=== PATIENT | female | born 1970 | race Two or more races ===

== ENCOUNTER → 2020-11-15 09:29 | Outpatient (BNVA) | payer MEDICAID, SELFPAY | PROVIDERS: PCP Student in an Organized Health Care Education/Training Program; Visit Provider Orthopaedic Surgery | DX: M17.31 Unilateral post-traumatic osteoarthritis, right knee (principal) | CPT/HCPCS: 99212 ==

== ENCOUNTER 2021-02-07 08:40 | Outpatient (REF) | payer MEDICAID, SELFPAY ==
--- NOTE | ~2021-02-07 | XR_ITS ---
EXAMINATION: BILATERAL KNEE X-RAY CLINICAL INFORMATION: Pain COMPARISON: Previous x-rays from 2019 and 2020 TECHNIQUE: 3 views of each knee FINDINGS: Right: There is an old healed medial tibial plateau fracture. No acute fracture or dislocation is seen. There is tricompartment arthritis greatest at the medial femoral tibial joint. There is no joint effusion. Left: Bone alignment is normal. No fracture or dislocation is seen. There are small osteophytes at the patellofemoral joint. Joint spaces are otherwise normal. There is no joint effusion. XR/XR knee RT 2V IMPRESSION: Right: Old healed medial tibial plateau fracture and arthritis. Left: Small osteophytes at the patellofemoral joint.
--- NOTE | ~2021-02-07 | XR_ITS ---
EXAMINATION: BILATERAL KNEE X-RAY CLINICAL INFORMATION: Pain COMPARISON: Previous x-rays from 2019 and 2020 TECHNIQUE: 3 views of each knee FINDINGS: Right: There is an old healed medial tibial plateau fracture. No acute fracture or dislocation is seen. There is tricompartment arthritis greatest at the medial femoral tibial joint. There is no joint effusion. Left: Bone alignment is normal. No fracture or dislocation is seen. There are small osteophytes at the patellofemoral joint. Joint spaces are otherwise normal. There is no joint effusion. XR/XR knee standing BI IMPRESSION: Right: Old healed medial tibial plateau fracture and arthritis. Left: Small osteophytes at the patellofemoral joint.
--- NOTE | ~2021-02-07 | XR_ITS ---
EXAMINATION: BILATERAL KNEE X-RAY CLINICAL INFORMATION: Pain COMPARISON: Previous x-rays from 2019 and 2020 TECHNIQUE: 3 views of each knee FINDINGS: Right: There is an old healed medial tibial plateau fracture. No acute fracture or dislocation is seen. There is tricompartment arthritis greatest at the medial femoral tibial joint. There is no joint effusion. Left: Bone alignment is normal. No fracture or dislocation is seen. There are small osteophytes at the patellofemoral joint. Joint spaces are otherwise normal. There is no joint effusion. XR/XR knee LT 2V IMPRESSION: Right: Old healed medial tibial plateau fracture and arthritis. Left: Small osteophytes at the patellofemoral joint.
== END 2021-02-07 08:41 | disposition home or self-care (01) ==
LOC: HO.HOSX 08:40
PROVIDERS: Visit Provider Orthopaedic Surgery
DX: M17.31 Unilateral post-traumatic osteoarthritis, right knee (principal); M21.062 Valgus deformity, not elsewhere classified, left knee; Z86.718 Personal history of other venous thrombosis and embolism; Z86.711 Personal history of pulmonary embolism
CPT/HCPCS: 73560; 73565; 99212

== ENCOUNTER → 2021-04-09 09:58 | Outpatient (BNVA) | payer MEDICAID, SELFPAY | PROVIDERS: Visit Provider Orthopaedic Surgery | DX: Z01.812 Encounter for preprocedural laboratory examination (principal); Z01.810 Encounter for preprocedural cardiovascular examination ==

== ENCOUNTER → 2021-05-09 09:24 | Outpatient (BNVA) | payer MEDICAID, SELFPAY | PROVIDERS: Visit Provider Physician Assistant | DX: Z01.818 Encounter for other preprocedural examination (principal); M17.31 Unilateral post-traumatic osteoarthritis, right knee | CPT/HCPCS: 99212 ==

== ENCOUNTER 2021-05-14 06:44 | Inpatient (IN) | payer MEDICAID, SELFPAY ==
[2021-04-10 12:05] LABS: MANUAL DIFF FLAG NO
--- NOTE | 2021-04-10 12:05 | ECG_ITS ---
Test Reason : preop Blood Pressure : / mmHG Vent. Rate : 060 BPM Atrial Rate : 060 BPM P-R Int : 122 ms QRS Dur : 074 ms QT Int : 426 ms P-R-T Axes : -25 017 013 degrees QTc Int : 426 ms Normal sinus rhythm Normal ECG When compared with ECG of 15-JUN-2018 11:15, QT has shortened Referred By: Bobby Cerrato Electronically Signed By:SANTOS BIGGS
[2021-04-10 12:17] LABS: Basophils Absolute Auto 0.1 X10*3/uL (0.0-0.2); Basophils Percent Auto 0.7 % (0-2); Eosinophils Absolute Auto 0.2 X10*3/uL (0.0-0.4); Eosinophils Percent Auto 2.5 % (0-4); Hemoglobin 12.7 g/dl (12.0-16.0); Imm Gran Abs Auto 0.03 X10*3/uL (0.00-0.03); Imm Gran Pct Auto 0.4 % (0.0-0.4); Lymphocytes Absolute Auto 1.9 X10*3/uL (1.2-4.9); Lymphocytes Percent Auto 23.3 % (20-40); Mean Corpuscular HGB Conc 32.6 g/dl (31.0-35.0); Mean Corpuscular Hemoglobin 29.4 pg (27.0-33.0); Mean Corpuscular Volume 90.3 fL (80.0-98.0); Mean Platelet Volume 10.7 fL (9.4-12.3); Monocytes Absolute Auto 0.9 X10*3/uL (0.1-1.2); Monocytes Percent Auto 11.3 % (2-11); Neutrophils Percent Auto 61.8 % (45-73); Platelet Count 316 X10*3/uL (160-400); Red Blood Count 4.32 X10*6/uL (4.20-5.50); Red Cell Distribution Width 14.6 % (11.0-16.0); White Blood Count 8.1 X10*3/uL (4.8-10.8)
[2021-04-10 12:40] LABS: Anion Gap 10 (12-20); Blood Urea Nitrogen 9 mg/dL (9-16); Calcium 9.7 mg/dL (8.4-10.2); Carbon Dioxide 30 mmol/L (22-29); Chloride 108 mmol/L (96-108); Estimated Glomerular Filt Rate > 60; Glucose Random 85 mg/dL (60-115); Potassium 4.6 mmol/L (3.3-5.1); Sodium 143 mmol/L (135-145)
[2021-05-06 11:24] VITALS: BP 108/58; PULSE 76; RESP 16; O2SAT 98; BMI 29.7
--- NOTE | 2021-05-06 11:33 | HO.ANESPROP2 ---
Documented by User: Lauren Norton NP 05/06/21 12:25 HPI - Anesthesia Eval Consult details Narrative: 51yo F for Right Knee Replacement Total PCP cleared Hx DVT/PE post op knee surgery 2016 - no anticoag now s/p gastric bypass 11/2020 PMF Active Problems Active Problems: All Active Problems (Updated 02/07/21 @ 10:54 by Bobby Cerrato MD) Post-traumatic osteoarthritis of right knee (Acute) Valgus deformity, not elsewhere classified, left knee (Acute) History of DVT (deep vein thrombosis) (Acute) History of pulmonary embolism (Acute) Past Medical History Medical History Asthma High cholesterol History of DVT (deep vein thrombosis) History of pulmonary embolism HTN (hypertension) Sleep apnea Family History Family history of problems with anesthesia: No Surgical History Surgical History H/O right knee surgery History of bunionectomy of both great toes History of History of laparoscopic cholecystectomy Hx of gastric bypass History of Problems with Anesthesia: No Social History Social History Are you a primary caregiver assisted living to a significant other at home: No Do you presently have visiting nurse or other home services: No Alcohol intake: never Patient Tobacco Use Status: Never used Tobacco Use of substances other than those prescribed or required for medical reasons: No Have you been hit, kicked, punched, or otherwise hurt by someone within the past year? If so, by whom?: No Are you DNR?: No Advance Directives: No Advance Directives on File: No Recently lost weight without trying: No Patient : No FDLMP: 2006 : No Poor oral hygiene: No Current occupational status: unemployed Current occupation: rt handed. Narrative Narrative: No recent illness No CP/SOB with activity Meds Allergies Allergy/AdvReac Type Severity Reaction Status Date / Time No Known Allergies Allergy Verified 05/14/21 07:25 Home Medications Medication Instructions Recorded Confirmed Last Taken Type albuterol sulfate 90 mcg/actuation 2 inh INHALATION Q6H PRN 11/15/20 05/06/21 Unknown History breath activated powder inhaler magnesium hydroxide 400 mg (170 mg 400 mg PO DAILY 11/15/20 05/06/21 Unknown History magnesium) chewable tablet omeprazole 40 mg capsule,delayed 40 mg PO DAILY 11/15/20 05/06/21 Unknown History release riboflavin (vitamin B2) 100 mg 100 mg PO BID 11/15/20 05/06/21 Unknown History tablet simvastatin 10 mg tablet 10 mg PO DAILY 11/15/20 05/06/21 Unknown History budesonide-formoterol HFA 160 2 puff INHALATION BID 05/06/21 05/06/21 Unknown History mcg-4.5 mcg/actuation aerosol inhaler (Symbicort) multivitamin 1 tab PO DAILY 05/06/21 05/06/21 Unknown History Exam Exam Date and Time: May 06, 2021 1133 Pertinent Lab Results Pertinent Lab Results: Laboratory Tests 04/10/21 04/10/21 12:03 12:03 WBC 8.1 RBC 4.32 Hgb 12.7 Hct 39.0 MCV 90.3 MCH 29.4 MCHC 32.6 RDW 14.6 Plt Count 316 MPV 10.7 Immature Gran % (Auto) 0.4 Neut % (Auto) 61.8 Lymph % (Auto) 23.3 [place] % (Auto) 11.3 H Eos % (Auto) 2.5 Baso % (Auto) 0.7 Lymph # (Auto) 1.9 [place] # (Auto) 0.9 Eos # (Auto) 0.2 Baso # (Auto) 0.1 Abs Immat Gran (auto) 0.03 Absolute Neuts (auto) 5.0 Absolute Nucleated RBC 0.000 Nucleated RBC % (auto) 0.0 Sodium 143 Potassium 4.6 Chloride 108 Carbon Dioxide 30 H Anion Gap 10 L BUN 9 Creatinine 0.84 Estim Creat Clear Calc TNP Estimated GFR > 60 Random Glucose 85 Calcium 9.7 Narrative Narrative: EKG 03/2021 Vent. Rate : 060 BPM ? ? Atrial Rate : 060 BPM ?? P-R Int : 122 ms? QRS Dur : 074 ms ? ? QT Int : 426 ms ? ? ? P-R-T Axes : -25 017 013 degrees ?? QTc Int : 426 ms ? Normal sinus rhythm Normal ECG When compared with ECG of 15-JUN-2018 11:15, QT has shortened Airway Mallampati Class: I TM Dist: >3cm Neck ROM: Full Loose/Missing/Broken Teeth: Yes (MOlars missing) Heart: RRR +M Lungs: CTAB Assessment and Plan Assessment Anesthesia Assessment: Anesthesia Plan Discussed (Spinal/block) and PAT Visit Final Anesthetic Review Family History of Problems with Anesthesia: No History of Problems with Anesthesia: No Documented by User: Vin Lopez MD 05/14/21 09:13 [facility] Past Medical History Medical History Asthma High cholesterol History of DVT (deep vein thrombosis) History of pulmonary embolism HTN (hypertension) Sleep apnea Surgical History Surgical History H/O right knee surgery History of bunionectomy of both great toes History of History of laparoscopic cholecystectomy Hx of gastric bypass Social History Social History Are you a primary caregiver assisted living to a significant other at home: No Do you presently have visiting nurse or other home services: No Alcohol intake: never Patient Tobacco Use Status: Never used Tobacco Use of substances other than those prescribed or required for medical reasons: No Have you been hit, kicked, punched, or otherwise hurt by someone within the past year? If so, by whom?: No Are you DNR?: No Advance Directives: No Advance Directives on File: No Recently lost weight without trying: No Patient : No FDLMP: 2006 : No Poor oral hygiene: No Current occupational status: unemployed Current occupation: rt handed. Meds Allergies Allergy/AdvReac Type Severity Reaction Status Date / Time No Known Allergies Allergy Verified 05/14/21 07:25 Home Medications Medication Instructions Recorded Confirmed Last Taken Type albuterol sulfate 90 mcg/actuation 2 inh INHALATION Q6H PRN 11/15/20 05/06/21 Unknown History breath activated powder inhaler magnesium hydroxide 400 mg (170 mg 400 mg PO DAILY 11/15/20 05/06/21 Unknown History magnesium) chewable tablet omeprazole 40 mg capsule,delayed 40 mg PO DAILY 11/15/20 05/06/21 Unknown History release riboflavin (vitamin B2) 100 mg 100 mg PO BID 11/15/20 05/06/21 Unknown History tablet simvastatin 10 mg tablet 10 mg PO DAILY 11/15/20 05/06/21 Unknown History budesonide-formoterol HFA 160 2 puff INHALATION BID 05/06/21 05/06/21 Unknown History mcg-4.5 mcg/actuation aerosol inhaler (Symbicort) multivitamin 1 tab PO DAILY 05/06/21 05/06/21 Unknown History Assessment and Plan Final Anesthetic Review NPO: Yes ASA Class: II Final Preanesthetic Review: No Changes in Pt Med Stat, Meds/Allgs Chart Reviewed, Consent Obtained/Reviewed and Anes Risks/Benef Reviewed Patient Risk: Low Procedure Risk: Intermediate Anesthetic Plan Anesthetic Plan: MAC:, Spinal and Regional Block Disposition: Standard PACU
[2021-05-06 14:10] LABS: MRSA Nasal PCR NEGATIVE (Negative); SA Nasal PCR POSITIVE (Negative)
[2021-05-14] VITALS (16 sets, daily range): BP systolic 87–143; BP diastolic 46–73; PULSE 52–92; RESP 15–20; TEMP 36.1–37.3; O2SAT 96–100
--- NOTE | ~2021-05-14 | XR_ITS ---
EXAMINATION: XR KNEE, RIGHT CLINICAL INFORMATION: Right knee replacement COMPARISON: Previous x-ray most recent January 2021 TECHNIQUE: Two views of the right knee. FINDINGS: There is a new hinged 3 component right knee replacement in satisfactory position. No fracture or dislocation is seen. There are postoperative changes to the soft tissues. XR/XR knee RT 2V IMPRESSION: Satisfactory appearance of right knee replacement.
[2021-05-14 06:52] LABS: UPreg QC Valid YES; Urine Pregnancy NEGATIVE (NEGATIVE)
[2021-05-14 07:10] LABS: COVID-19 Test Negative (Negative); IDNOW Serial# 55D5AD1C
[2021-05-14] MEDS: Lactated Ringers 1,000 ML 100 ML IVCONT (07:30)
--- NOTE | 2021-05-14 07:36 | MHC.SHP ---
Pre-Procedural Eval Section A Date of Service: 05/14/21 The patient is an INPATIENT: No Changes since office visit: Yes Patient answered all questions; No Cold of Flu in the past 2 weeks, No New Medical Problems and No Changes in Medication The History & Physical has been completed within 30 days and I have reviewed it.: Yes Section B Chief Complaint: RT TKA Allergies: Allergies Allergy/AdvReac Type Severity Reaction Status Date / Time No Known Allergies Allergy Verified 05/14/21 07:25 Plan I have reviewed the history and physical and performed a pertinent physical examination on my patient. No changes have occurred unless specified.
--- NOTE | 2021-05-14 10:04 | PM.OP ---
Brief Operative Note Date of Service: 05/14/21 Pre-op diagnosis: right knee OA Post-op diagnosis: same Procedure: right TKA Implants: Radha triathalon PS 05/01/15 cemented Surgeon: Bobby Cerrato MD Anesthesia: regional and spinal Was an Electronics Processor used for this Procedure?: Yes Electronics Processor: Alonzo Rivas Estimated blood loss (mL): 150 IV fluids (mL): 900 Pathology: other Condition: stable Disposition: PACU
[2021-05-14] MEDS: Dextrose 5 % and 0.45 % NaCl 1,000 ML 80 ML IVCONT ×2 (10:25→21:31)
[2021-05-14] MEDS: Tetracaine HCl/PF 0.5% Oph Sol 4 ML DROPS 1 DROP EYE-LEFT (10:39)
[2021-05-14] MEDS: Erythromycin Base 0.5% Oph Oin 1 GM TUBE 1 CM EYE-LEFT ×3 (11:04→19:43)
[2021-05-14] MEDS: Acetaminophen 325 MG TABLET 650 MG PO ×2 (11:56→21:29)
--- NOTE | 2021-05-14 13:02 | PHA.MEDREC ---
Pharmacy Consult ? Medication Reconciliation Pharmacy has completed the medication reconciliation.
[2021-05-14] MEDS: oxyCODONE HCl Immed Release 5 MG TABLET 10 MG PO ×2 (15:22→21:29)
--- NOTE | 2021-05-14 15:45 | HO.PM.IMCN ---
History of Present Illness Data of Consult Service Date: 05/14/21 Requesting physician: Bobby Cerrato Primary Care Provider: Jackie Abdi MD HPI 51 year old women admitted to orthopedic surgery and is status post RTKA. She has pain to her right eye and was told in the OR that it was likely a corneal abrasion. She received tetracaine and vigamox. Pain is moderate at this time. She was able to drink with no nausea or vomiting. She is resting in bed. vital signs stable. Review of Systems Review of Systems: Denies any recent fever chills or decrease in appetite respiratory denies any shortness of breath coverage production cardiovascular is adjustment of any PND or edema gastrointestinal denies any dysphagia abdominal pain nausea vomiting or diarrhea genitourinary denies any dysuria frequency or hematuria musculoskeletal denies any joint pain or swelling neuropsych denies any weakness or seizures all other systems reviewed are negative [facility] Medical History Asthma High cholesterol History of DVT (deep vein thrombosis) History of pulmonary embolism HTN (hypertension) Sleep apnea Pertinent family history: NO cardiac disease Surgical History H/O right knee surgery History of bunionectomy of both great toes History of History of laparoscopic cholecystectomy Hx of gastric bypass Social History Are you a primary child care nurse to a significant other at home: No Do you presently have visiting nurse or other home services: No Alcohol intake: never Patient Tobacco Use Status: Never used Tobacco Use of substances other than those prescribed or required for medical reasons: No Currently Displaying Signs/Symptoms of Drug Intoxication Withdrawal: No Have you been hit, kicked, punched, or otherwise hurt by someone within the past year? If so, by whom?: No Are you DNR?: No Advance Directives: No Advance Directives on File: No Recently lost weight without trying: No Patient : No FDLMP: 2006 : No Poor oral hygiene: No Current occupational status: unemployed Current occupation: rt handed. Meds Allergies Allergy/AdvReac Type Severity Reaction Status Date / Time No Known Allergies Allergy Verified 05/14/21 07:25 Active Medications: Current Medications Acetaminophen (Acetaminophen 325 Mg Tablet) 650 mg PO Q6H PRN PRN Reason: Pain, Mild (Pain Scale 1-3) Last Admin: 05/14/21 11:56 Dose: 650 mg Documented by: Celecoxib (Celecoxib 200 Mg Capsule) 200 mg PO BID [facility] Enoxaparin Sodium (Enoxaparin Sodium 40 Mg/0.4 Ml Syringe) 40 mg SUBCUT Q24H [facility] Erythromycin (Erythromycin Base 0.5% Oph Oin 1 Gm Tube) 1 cm EYE-LEFT TID [facility] Stop: 05/15/21 11:00 Last Admin: 05/14/21 15:18 Dose: 1 cm Documented by: Hydromorphone HCl (Hydromorphone Hcl 1 Mg/Ml Syringe) 0.25 mg IVPUSH Q4H PRN; Protocol PRN Reason: Pain, Severe (Pain Scale 7-10) Dextrose/Sodium Chloride (D51/2ns) 1,000 mls @ 80 mls/hr IVCONT .[id number] [facility] Last Admin: 05/14/21 10:25 Dose: 80 mls/hr Documented by: Cefazolin Sodium/Dextrose (Ancef) 2 gm in 50 mls @ 100 mls/hr IV POSTOP [facility] Ondansetron HCl (Ondansetron Hcl 4 Mg/2 Ml Vial) 4 mg IVPUSH Q8H PRN PRN Reason: Nausea and Vomiting Oxycodone HCl (Oxycodone Hcl Immed Release 5 Mg Tablet) 10 mg PO Q4H PRN PRN Reason: Pain, Moderate (Pain Scale 4-6 Last Admin: 05/14/21 15:22 Dose: 10 mg Documented by: Oxycodone HCl (Oxycodone Hcl Er 10 Mg Tab.Er.12h) 10 mg PO BID [facility] Senna (Sennosides 8.6 Mg Tablet) 17.2 mg PO BEDTIME PRN PRN Reason: Constipation Sodium Chloride (0.9 % Sodium Chloride Flush 3 Ml Syringe) 3 ml IVFLUSH QSHIFT [facility] Last Admin: 05/14/21 15:18 Dose: Not Given Documented by: Home Medications Medication Instructions Recorded Confirmed Last Taken Type albuterol sulfate 90 mcg/actuation 2 inh INHALATION Q6H PRN 11/15/20 05/14/21 Unknown History breath activated powder inhaler magnesium hydroxide 400 mg (170 mg 400 mg PO DAILY 11/15/20 05/14/21 Unknown History magnesium) chewable tablet omeprazole 40 mg capsule,delayed 40 mg PO DAILY 11/15/20 05/14/21 Unknown History release riboflavin (vitamin B2) 100 mg 100 mg PO BID 11/15/20 05/14/21 Unknown History tablet simvastatin 10 mg tablet 10 mg PO DAILY 11/15/20 05/14/21 Unknown History budesonide-formoterol HFA 160 2 puff INHALATION BID 05/06/21 05/14/21 Unknown History mcg-4.5 mcg/actuation aerosol inhaler (Symbicort) multivitamin 1 tab PO DAILY 05/06/21 05/14/21 Unknown History amitriptyline 10 mg tablet 20 mg PO BEDTIME 05/14/21 05/14/21 Unknown History Physical Exam Vital Signs and Narrative: Vital Signs: Last Vital Signs Temp 97.1 F 05/14/21 15:32 Pulse 92 05/14/21 15:32 Resp 16 05/14/21 15:32 BP 143/73 H 05/14/21 15:32 Pulse Ox 98 05/14/21 15:32 BMI result Body Mass Index 29.7 Appearing in no acute distress head is normocephalic atraumatic eyes pupils are PERRLA sclera is anicteric mouth throat mucous membranes are intact and moist neck is supple no lymphadenopathy, no JVD noted lung sounds are clear to auscultation heart regular rate rhythm, clear S1, S2 positive bowel sounds, abdomen is soft, nontender neuro patient is alert x3, no focal deficits Results Labs CBC and Chem 7: 04/10/21 12:03 04/10/21 12:03 Labs: Laboratory Results - last 24 hr 05/14/21 05/14/21 06:20 06:43 Urine Test NEGATIVE COVID-19 ([facility]NAMARIA) Negative COVID-19 Clin Com See Note Imaging Radiologist's Impressions: Impressions Knee X-Ray 05/14/21 10:38 IMPRESSION: Satisfactory appearance of right knee replacement. Assessment and Plan (1) Post-traumatic osteoarthritis of right knee: Status: Acute Plan 51 year old women admitted by orthopedic surgery and is s/p RTKA RTKA Mangement as per surgical team pain management asthma. no exacerbation continue home medications Left eye pain ?corneal abrasion eye drops GERD PPI DVT prophylaxis as per surgical team Attending Dr. Ravi
[2021-05-14] MEDS: Amitriptyline HCl 10 MG TABLET 20 MG PO (19:40)
[2021-05-14] MEDS: oxyCODONE HCl ER 10 MG TAB.ER.12H PO (19:41)
[2021-05-14] MEDS: HYDROmorphone HCl 1 MG/ML SYRINGE 0.25 MG IVPUSH (19:41)
[2021-05-14] MEDS: Celecoxib 200 MG CAPSULE PO (19:41)
[2021-05-14] MEDS: 0.9 % Sodium Chloride Flush 3 ML SYRINGE IVFLUSH (19:42)
[2021-05-15] VITALS (9 sets, daily range): BP systolic 82–142; BP diastolic 53–67; PULSE 75–99; RESP 14–20; TEMP 36.2–36.4; O2SAT 94–98
[2021-05-15] MEDS: oxyCODONE HCl Immed Release 5 MG TABLET 10 MG PO ×3 (03:23→16:36)
[2021-05-15] MEDS: Acetaminophen 325 MG TABLET 650 MG PO ×3 (03:23→16:35)
[2021-05-15] MEDS: Omeprazole 40 MG CAPSULE.DR PO (05:37)
[2021-05-15 05:55] LABS: Basophils Percent Auto 0.1 % (0-2); Eosinophils Percent Auto 0.4 % (0-4); Hematocrit 27.9 % (37.0-47.0); Hemoglobin 9.1 g/dl (12.0-16.0); Imm Gran Abs Auto 0.03 X10*3/uL (0.00-0.03); Imm Gran Pct Auto 0.3 % (0.0-0.4); Lymphocytes Absolute Auto 1.3 X10*3/uL (1.2-4.9); Lymphocytes Percent Auto 13.3 % (20-40); MANUAL DIFF FLAG SCAN; Mean Corpuscular HGB Conc 32.6 g/dl (31.0-35.0); Mean Corpuscular Hemoglobin 30.2 pg (27.0-33.0); Mean Corpuscular Volume 92.7 fL (80.0-98.0); Mean Platelet Volume 11.1 fL (9.4-12.3); Monocytes Absolute Auto 1.6 X10*3/uL (0.1-1.2); Monocytes Percent Auto 16.3 % (2-11); Neutrophils Absolute Auto 6.7 x10*3/uL (2.0-8.3); Neutrophils Percent Auto 69.6 % (45-73); Platelet Count 233 X10*3/uL (160-400); Red Blood Count 3.01 X10*6/uL (4.20-5.50); Red Cell Distribution Width 13.8 % (11.0-16.0); SCAN SMEAR FLAG 1; White Blood Count 9.6 X10*3/uL (4.8-10.8)
[2021-05-15 06:23] LABS: Anion Gap 9 (12-20); Blood Urea Nitrogen 9 mg/dL (9-16); Carbon Dioxide 28 mmol/L (22-29); Chloride 105 mmol/L (96-108); Creatinine Clr Calc Pharmacy 53.3; Estimated Glomerular Filt Rate 55; Glucose Fasting 118 mg/dL (60-99); Potassium 4.1 mmol/L (3.3-5.1); Sodium 138 mmol/L (135-145)
[2021-05-15 06:27] LABS: SLIDE REVIEW VERIFIED
--- NOTE | 2021-05-15 07:45 | PM.PNORT ---
Subjective Subjective Date of Service: 05/15/21 Interval history: POD1 s/p RTKA. No overnight events. Pain is managed. Patient is resting comfortably in bed. No additional complaints. Physical Exam Vital Signs: Vital Signs: Last Vital Signs Temp 97.2 F 05/15/21 03:46 Pulse 75 05/15/21 03:46 Resp 14 05/15/21 03:46 BP 92/67 05/15/21 03:46 Pulse Ox 94 05/15/21 03:46 BMI result Body Mass Index 29.7 Const: General: cooperative, healthy appearing and no acute distress Resp: Effort & Inspection: normal respiratory effort and able to speak in complete sentences Cardio: Rate: regular rate Peripheral pulses: Peripheral pulses 2+ throughout GI: Palpation (GI): Soft to palpation Skin: Lesions: no lesions Rashes: no rashes Extrem: Other: Right knee aquacel is clean, dry, and intact. NVI. Procedures Date of Service Date of Service: 05/15/21 Progress Note: A&P Assessment and plan (1) Status post total knee replacement, right: Status: Acute Assessment and Plan: Continue pain mgmnt Begin Lovenox for dvt ppx begin PT for RTKA Dispo planning-Pending PT eval, pain mgmnt Fall Risk Details Current Medications: Current Medications Acetaminophen (Acetaminophen 325 Mg Tablet) 650 mg PO Q6H PRN PRN Reason: Pain, Mild (Pain Scale 1-3) Last Admin: 05/15/21 03:23 Dose: 650 mg Documented by: Albuterol Sulfate (Albuterol Sulfate 90 Mcg 8 Gm Inhaler) 2 puff INHALE Q6H PRN PRN Reason: Shortness Of Breath Or Wheezing Amitriptyline HCl (Amitriptyline Hcl 10 Mg Tablet) 20 mg PO BEDTIME [facility] Last Admin: 05/14/21 19:40 Dose: 20 mg Documented by: Atorvastatin Calcium (Atorvastatin Calcium 10 Mg Tablet) 10 mg PO DAILY [facility] Celecoxib (Celecoxib 200 Mg Capsule) 200 mg PO BID [facility] Last Admin: 05/14/21 19:41 Dose: 200 mg Documented by: Enoxaparin Sodium (Enoxaparin Sodium 40 Mg/0.4 Ml Syringe) 40 mg SUBCUT Q24H [facility] Erythromycin (Erythromycin Base 0.5% Oph Oin 1 Gm Tube) 1 cm EYE-LEFT TID [facility] Stop: 05/15/21 11:00 Last Admin: 05/14/21 19:43 Dose: 1 cm Documented by: Fluticasone/Vilanterol (Fluticasone/Vilanterol 100/25 Blst.W.Dev) 1 puff INHALE RDAILY [facility] Hydromorphone HCl (Hydromorphone Hcl 1 Mg/Ml Syringe) 0.25 mg IVPUSH Q4H PRN; Protocol PRN Reason: Pain, Severe (Pain Scale 7-10) Last Admin: 05/14/21 19:41 Dose: 0.25 mg Documented by: Dextrose/Sodium Chloride (D51/2ns) 1,000 mls @ 80 mls/hr IVCONT .[id number] [facility] Last Admin: 05/14/21 21:31 Dose: 80 mls/hr Documented by: Cefazolin Sodium/Dextrose (Ancef) 2 gm in 50 mls @ 100 mls/hr IV POSTOP [facility] Magnesium Oxide (Magnesium Oxide 400 Mg Tablet) 400 mg PO DAILY [facility] Multivitamins/Vitamin C (Multivitamin Tablet) 1 tab PO DAILY [facility] Omeprazole (Omeprazole 40 Mg Capsule.Dr) 40 mg PO DAILY@0630 [facility] Last Admin: 05/15/21 05:37 Dose: 40 mg Documented by: Ondansetron HCl (Ondansetron Hcl 4 Mg/2 Ml Vial) 4 mg IVPUSH Q8H PRN PRN Reason: Nausea and Vomiting Oxycodone HCl (Oxycodone Hcl Immed Release 5 Mg Tablet) 10 mg PO Q4H PRN PRN Reason: Pain, Moderate (Pain Scale 4-6 Last Admin: 05/15/21 03:23 Dose: 10 mg Documented by: Oxycodone HCl (Oxycodone Hcl Er 10 Mg Tab.Er.12h) 10 mg PO BID [facility] Last Admin: 05/14/21 19:41 Dose: 10 mg Documented by: Senna (Sennosides 8.6 Mg Tablet) 17.2 mg PO BEDTIME PRN PRN Reason: Constipation Sodium Chloride (0.9 % Sodium Chloride Flush 3 Ml Syringe) 3 ml IVFLUSH QSHIFT [facility] Last Admin: 05/14/21 19:42 Dose: 3 ml Documented by: Time Spent With Patient Time: Total time spent is greater than 50% in coordination of care (as documented) at patient's floor/unit and/or counseling patient: Time with patient: less than 15 minutes Quality Stroke Does the patient have a stroke diagnosis?: No VTE Prior VTE?: No VTE Risk Level:: Surgical - very high VTE Device Contraindication: N/A - Device Ordered VTE Drug Contraindication: N/A - Med Ordered
[2021-05-15] MEDS: Fluticasone/Vilanterol 100/25 BLST.W.DEV 1 PUFF INHALE (08:00)
--- NOTE | 2021-05-15 08:11 | HO.POSTANES ---
Post Anesthesia Evaluation Post Anesthesia Evaluation Vital Signs: Vital Signs Temp Pulse Resp BP Pulse Ox 05/15/21 08:05 75 18 05/15/21 08:00 97.1 F 90 20 142/65 H 98 05/15/21 03:46 97.2 F 75 14 92/67 94 05/14/21 23:47 97.4 F 72 20 90/47 L 96 Anesthesia: Spinal and Nerve Block Mental Status: Awake Pain Control: Satisfactory Nausea/Vomiting: None Hydration: Adequate Anesthesia-Related Issues: No Anes. Related Issues Comments: question of corneal abrasion . Patient receievd teracaine drops and erythromycin ointment. looked more like conjunctivitis with bulging of conjunctiva. Much improved now
[2021-05-15] MEDS: Enoxaparin Sodium 40 MG/0.4 ML SYRINGE SUBCUT (08:16)
[2021-05-15] MEDS: Multivitamin TABLET 1 TAB PO (08:18)
[2021-05-15] MEDS: Magnesium Oxide 400 MG TABLET PO (08:18)
[2021-05-15] MEDS: Celecoxib 200 MG CAPSULE PO ×2 (08:18→20:34)
[2021-05-15] MEDS: oxyCODONE HCl ER 10 MG TAB.ER.12H PO ×2 (08:18→20:34)
[2021-05-15] MEDS: Atorvastatin Calcium 10 MG TABLET PO (08:18)
[2021-05-15] MEDS: 0.9 % Sodium Chloride Flush 3 ML SYRINGE IVFLUSH ×2 (08:19→16:36)
[2021-05-15] MEDS: HYDROmorphone HCl 1 MG/ML SYRINGE 0.25 MG IVPUSH ×3 (08:25→23:28)
[2021-05-15] MEDS: Erythromycin Base 0.5% Oph Oin 1 GM TUBE 1 CM EYE-LEFT (08:31)
--- NOTE | 2021-05-15 09:39 | P.OP_ITS ---
Operative Note Operative Note Date of Service: 05/15/21 Narrative: Date of Service: 05/14/21 Pre-op diagnosis: right knee OA Post-op diagnosis: same Procedure: right TKA Implants: [place] triathalon PS 05/01/TS/29a cemented Surgeon: Bobby Cerrato MD Anesthesia: regional and spinal Was an Underwater Roboticist used for this Procedure?: Yes Underwater Roboticist: Alonzo Rivas Estimated blood loss (mL): 150 IV fluids (mL): 900 Pathology: other Condition: stable Disposition: PACU Procedure in detail: The patient was brought to the operating room and prepped and draped in standard sterile fashion. all bony prominences were well padded. A time-out was called to identify proper site proper procedure proper surgeon and IV antibiotics were administered. I began by making a midline incision to the retinaculum and performed a medial parapatellar arthrotomy. The patella was translated laterally and the knee was flexed up. The medial compartment was eburnated and the knee had collapsed in to severe varus. I performed a medial peel and resected the infrapatellar fat pad. Fairview's line was then used to drill my intramedullary femoral guide and my distal femur cut of 10 mm was made in 5 degrees of valgus while protecting the soft tissues. I then measured a # 2 femur and placed my cutting guide and made my anterior posterior and chamfer cuts protecting the soft tissues at all times. I then made my box but removing the PCL. Once I was satisfied with my cuts I turned my attention to the tibia. I removed the meniscus medially and laterally and , using an external cutting guide, in line with the tibial crest and the third ray, I made my distal tibial cut in 0 deg slope of while protecting the posterior soft tissues at all times. An extension block was used to confirm appropriate amount of bony resection. The knee was balanced medially and laterally. In addition I removed 1 medial screw from prior surgery that was protruding through the medial tibial plateau. I then sized a #2 tibia and once I was satisfied that there was complete tibial coverage I placed my trial and with the trial femur in place took the knee through range of motion. I was satisfied with the extension and flexion as well as the stability at 0, 30 and 90 degrees. I then turned my attention to the patella where I removed 1 cm from the undersurface of the patella and then trialed a 29a patellar button. Again the knee was taken through range of motion I was satisfied with the tracking. I then returned to the femur and drilled my femoral lug holes and prepared the tibia. A femoral bone plug was placed and the knee was irrigated copiously. I mixed 2 bags of [place] bone cement on the back table. I then Cementedthe patella, tibia and femur in standard fashion. Once the cement was dry and all excess cement had been removed I trialed different inserts again until I selected a #16 insert. The final insert was placed and a 3 minutes iodine soak was performed. running Quill suture and absorbable subcuticular sutures and louisa on the skin were used. Patient was then awakened from sedation and brought to the recovery room in stable condition. There were no known complications.
--- NOTE | 2021-05-15 10:11 | P.PNIM_ITS ---
Subjective Subjective Date of Service: 05/15/21 Review of Systems Follow up consult s/p RTKA walking the hallway with PT Physical Exam 2 Vital Signs: Vital Signs: Last Vital Signs Temp 97.1 F 05/15/21 08:00 Pulse 75 05/15/21 08:48 Resp 18 05/15/21 08:05 BP 142/65 H 05/15/21 08:00 Pulse Ox 98 05/15/21 08:00 BMI result Body Mass Index 29.7 Appearing in no acute distress lung sounds are clear to auscultation heart regular rate rhythm, clear S1, S2 positive bowel sounds, abdomen is soft, nontender neuro patient is alert x3, no focal deficits Right knee dressing, surgical incision not visualized Objective Data Active Medications Acetaminophen (Acetaminophen 325 Mg Tablet) 650 mg PO Q6H PRN PRN Reason: Pain, Mild (Pain Scale 1-3) Last Admin: 05/15/21 03:23 Dose: 650 mg Documented by: ROCAEL Albuterol Sulfate (Albuterol Sulfate 90 Mcg 8 Gm Inhaler) 2 puff INHALE Q6H PRN PRN Reason: Shortness Of Breath Or Wheezing Amitriptyline HCl (Amitriptyline Hcl 10 Mg Tablet) 20 mg PO BEDTIME [facility] Last Admin: 05/14/21 19:40 Dose: 20 mg Documented by: ROCAEL Atorvastatin Calcium (Atorvastatin Calcium 10 Mg Tablet) 10 mg PO DAILY [facility] Last Admin: 05/15/21 08:18 Dose: 10 mg Documented by: DUY Celecoxib (Celecoxib 200 Mg Capsule) 200 mg PO BID [facility] Last Admin: 05/15/21 08:18 Dose: 200 mg Documented by: DUY Enoxaparin Sodium (Enoxaparin Sodium 40 Mg/0.4 Ml Syringe) 40 mg SUBCUT Q24H [facility] Last Admin: 05/15/21 08:16 Dose: 40 mg Documented by: DUY Erythromycin (Erythromycin Base 0.5% Oph Oin 1 Gm Tube) 1 cm EYE-LEFT TID [facility] Stop: 05/15/21 11:00 Last Admin: 05/15/21 08:31 Dose: 1 cm Documented by: DUY Fluticasone/Vilanterol (Fluticasone/Vilanterol 100/25 Blst.W.Dev) 1 puff INHALE RDAILY [facility] Last Admin: 05/15/21 08:00 Dose: 1 puff Documented by: YUMI Hydromorphone HCl (Hydromorphone Hcl 1 Mg/Ml Syringe) 0.25 mg IVPUSH Q4H PRN; Protocol PRN Reason: Pain, Severe (Pain Scale 7-10) Last Admin: 05/15/21 08:25 Dose: 0.25 mg Documented by: DUY Dextrose/Sodium Chloride (D51/2ns) 1,000 mls @ 80 mls/hr IVCONT .[id number] [facility] Last Admin: 05/14/21 21:31 Dose: 80 mls/hr Documented by: ROCAEL Cefazolin Sodium/Dextrose (Ancef) 2 gm in 50 mls @ 100 mls/hr IV POSTOP [facility] Magnesium Oxide (Magnesium Oxide 400 Mg Tablet) 400 mg PO DAILY [facility] Last Admin: 05/15/21 08:18 Dose: 400 mg Documented by: DUY Multivitamins/Vitamin C (Multivitamin Tablet) 1 tab PO DAILY [facility] Last Admin: 05/15/21 08:18 Dose: 1 tab Documented by: DUY Omeprazole (Omeprazole 40 Mg Capsule.Dr) 40 mg PO DAILY@0630 [facility] Last Admin: 05/15/21 05:37 Dose: 40 mg Documented by: ROCAEL Ondansetron HCl (Ondansetron Hcl 4 Mg/2 Ml Vial) 4 mg IVPUSH Q8H PRN PRN Reason: Nausea and Vomiting Oxycodone HCl (Oxycodone Hcl Immed Release 5 Mg Tablet) 10 mg PO Q4H PRN PRN Reason: Pain, Moderate (Pain Scale 4-6 Last Admin: 05/15/21 03:23 Dose: 10 mg Documented by: ROCAEL Oxycodone HCl (Oxycodone Hcl Er 10 Mg Tab.Er.12h) 10 mg PO BID [facility] Last Admin: 05/15/21 08:18 Dose: 10 mg Documented by: DUY Senna (Sennosides 8.6 Mg Tablet) 17.2 mg PO BEDTIME PRN PRN Reason: Constipation Sodium Chloride (0.9 % Sodium Chloride Flush 3 Ml Syringe) 3 ml IVFLUSH QSHIFT [facility] Last Admin: 05/15/21 08:19 Dose: 3 ml Documented by: DUY Labs CBC & Chem 7: 05/15/21 05:28 05/15/21 05:28 Labs: Laboratory Results - last 24 hr 05/15/21 05/15/21 05:28 05:28 MCV 92.7 MCH 30.2 MCHC 32.6 RDW 13.8 Plt Count 233 D MPV 11.1 Immature Gran % (Auto) 0.3 Neut % (Auto) 69.6 Lymph % (Auto) 13.3 L [place] % (Auto) 16.3 H Eos % (Auto) 0.4 Baso % (Auto) 0.1 Lymph # (Auto) 1.3 [place] # (Auto) 1.6 H Eos # (Auto) 0.0 Baso # (Auto) 0.0 Abs Immat Gran (auto) 0.03 Absolute Neuts (auto) 6.7 Absolute Nucleated RBC 0.000 Nucleated RBC % (auto) 0.0 Smear Tech's Comments VERIFIED Anion Gap 9 L Estim Creat Clear Calc 53.3 Estimated GFR 55 Fasting Glucose 118 H Calcium 9.0 D Assessment and Plan (1) Status post total knee replacement, right: Status: Acute Plan 51 year old women admitted by orthopedic surgery and is s/p RTKA RTKA Mangement as per surgical team pain management asthma. no exacerbation continue home medications Left eye pain ?corneal abrasion eye drops feeling better GERD PPI DVT prophylaxis as per surgical team Attending Dr. Saenz Quality Stroke Does the patient have a stroke diagnosis?: No VTE Prior VTE?: No VTE Risk Level:: Surgical - very high VTE Device Contraindication: N/A - Device Ordered VTE Drug Contraindication: N/A - Med Ordered
[2021-05-15] MEDS: Dextrose 5 % and 0.45 % NaCl 1,000 ML 80 ML IVCONT ×2 (10:43→20:35)
[2021-05-15] MEDS: Amitriptyline HCl 10 MG TABLET 20 MG PO (20:34)
[2021-05-16] VITALS (15 sets, daily range): BP systolic 90–159; BP diastolic 46–65; PULSE 68–101; RESP 16–166; TEMP 36.3–36.8; O2SAT 95–98
[2021-05-16] MEDS: Acetaminophen 325 MG TABLET 650 MG PO ×3 (02:49→23:39)
[2021-05-16] MEDS: oxyCODONE HCl Immed Release 5 MG TABLET 10 MG PO ×4 (02:50→23:39)
[2021-05-16 04:55] LABS: MANUAL DIFF FLAG NO
[2021-05-16 05:04] LABS: Basophils Percent Auto 0.5 % (0-2); Eosinophils Absolute Auto 0.1 X10*3/uL (0.0-0.4); Eosinophils Percent Auto 1.8 % (0-4); Hematocrit 23.3 % (37.0-47.0); Hemoglobin 7.6 g/dl (12.0-16.0); Imm Gran Abs Auto 0.02 X10*3/uL (0.00-0.03); Imm Gran Pct Auto 0.3 % (0.0-0.4); Lymphocytes Absolute Auto 1.6 X10*3/uL (1.2-4.9); Lymphocytes Percent Auto 25.7 % (20-40); Mean Corpuscular HGB Conc 32.6 g/dl (31.0-35.0); Mean Corpuscular Hemoglobin 30.2 pg (27.0-33.0); Mean Corpuscular Volume 92.5 fL (80.0-98.0); Mean Platelet Volume 11.3 fL (9.4-12.3); Monocytes Absolute Auto 0.8 X10*3/uL (0.1-1.2); Monocytes Percent Auto 13.4 % (2-11); Neutrophils Absolute Auto 3.6 x10*3/uL (2.0-8.3); Neutrophils Percent Auto 58.3 % (45-73); Platelet Count 194 X10*3/uL (160-400); Red Blood Count 2.52 X10*6/uL (4.20-5.50); White Blood Count 6.1 X10*3/uL (4.8-10.8)
[2021-05-16 05:17] LABS: Anion Gap 8 (12-20); Blood Urea Nitrogen 12 mg/dL (9-16); Calcium 7.6 mg/dL (8.4-10.2); Carbon Dioxide 27 mmol/L (22-29); Chloride 106 mmol/L (96-108); Creatinine Clr Calc Pharmacy 67.3; Estimated Glomerular Filt Rate > 60; Glucose Fasting 97 mg/dL (60-99); Potassium 3.4 mmol/L (3.3-5.1); Sodium 138 mmol/L (135-145)
[2021-05-16] MEDS: Omeprazole 40 MG CAPSULE.DR PO (06:10)
[2021-05-16] MEDS: Fluticasone/Vilanterol 100/25 BLST.W.DEV 1 PUFF INHALE (08:26)
[2021-05-16] MEDS: Atorvastatin Calcium 10 MG TABLET PO (08:28)
[2021-05-16] MEDS: Enoxaparin Sodium 40 MG/0.4 ML SYRINGE SUBCUT (08:28)
[2021-05-16] MEDS: oxyCODONE HCl ER 10 MG TAB.ER.12H PO ×2 (08:28→19:22)
[2021-05-16] MEDS: Celecoxib 200 MG CAPSULE PO ×2 (08:29→19:22)
[2021-05-16] MEDS: Magnesium Oxide 400 MG TABLET PO (08:29)
[2021-05-16] MEDS: Multivitamin TABLET 1 TAB PO (08:29)
[2021-05-16] MEDS: Dextrose 5 % and 0.45 % NaCl 1,000 ML 80 ML IVCONT ×2 (08:30→21:09)
--- NOTE | 2021-05-16 08:40 | PM.PNORT ---
Subjective Subjective Date of Service: 05/16/21 Interval history: POD2 s/p RTKA. No overnight events. Patient was working with p.t. walking in the hallway and then transitioned to the chair. Pain is managed. No additioanl compalints. Physical Exam Vital Signs: Vital Signs: Last Vital Signs Temp 97.4 F 05/16/21 07:36 Pulse 86 05/16/21 08:27 Resp 18 05/16/21 08:27 BP 106/58 L 05/16/21 07:36 Pulse Ox 95 05/16/21 07:36 BMI result Body Mass Index 29.7 Const: General: cooperative, healthy appearing and no acute distress Resp: Effort & Inspection: normal respiratory effort and able to speak in complete sentences Cardio: Rate: regular rate Peripheral pulses: Peripheral pulses 2+ throughout GI: Palpation (GI): Soft to palpation Skin: Lesions: no lesions Rashes: no rashes Extrem: Other: Right knee aquacel dressing changed. [place] intact. No drainage. NVI. Procedures Date of Service Date of Service: 05/16/21 Progress Note: A&P Assessment and plan (1) Status post total knee replacement, right: Status: Acute Assessment and Plan: Continue pain mgmnt Continue ASA for dvt ppx Continue PT for RTKA Dispo planning-PT, pain mgmnt, transfusion. Anticipate d/c today or tomorrow after transfusion Fall Risk Details Current Medications: Current Medications Acetaminophen (Acetaminophen 325 Mg Tablet) 650 mg PO Q6H PRN PRN Reason: Pain, Mild (Pain Scale 1-3) Last Admin: 05/16/21 08:29 Dose: 650 mg Documented by: Albuterol Sulfate (Albuterol Sulfate 90 Mcg 8 Gm Inhaler) 2 puff INHALE Q6H PRN PRN Reason: Shortness Of Breath Or Wheezing Amitriptyline HCl (Amitriptyline Hcl 10 Mg Tablet) 20 mg PO BEDTIME [facility] Last Admin: 05/15/21 20:34 Dose: 20 mg Documented by: Atorvastatin Calcium (Atorvastatin Calcium 10 Mg Tablet) 10 mg PO DAILY [facility] Last Admin: 05/16/21 08:28 Dose: 10 mg Documented by: Celecoxib (Celecoxib 200 Mg Capsule) 200 mg PO BID [facility] Last Admin: 05/16/21 08:29 Dose: 200 mg Documented by: Enoxaparin Sodium (Enoxaparin Sodium 40 Mg/0.4 Ml Syringe) 40 mg SUBCUT Q24H [facility] Last Admin: 05/16/21 08:28 Dose: 40 mg Documented by: Fluticasone/Vilanterol (Fluticasone/Vilanterol 100/25 Blst.W.Dev) 1 puff INHALE RDAILY [facility] Last Admin: 05/16/21 08:26 Dose: 1 puff Documented by: Hydromorphone HCl (Hydromorphone Hcl 1 Mg/Ml Syringe) 0.25 mg IVPUSH Q4H PRN; Protocol PRN Reason: Pain, Severe (Pain Scale 7-10) Last Admin: 05/15/21 23:28 Dose: 0.25 mg Documented by: Dextrose/Sodium Chloride (D51/2ns) 1,000 mls @ 80 mls/hr IVCONT .[id number] [facility] Last Admin: 05/16/21 08:30 Dose: 80 mls/hr Documented by: Cefazolin Sodium/Dextrose (Ancef) 2 gm in 50 mls @ 100 mls/hr IV POSTOP [facility] Magnesium Oxide (Magnesium Oxide 400 Mg Tablet) 400 mg PO DAILY [facility] Last Admin: 05/16/21 08:29 Dose: 400 mg Documented by: Multivitamins/Vitamin C (Multivitamin Tablet) 1 tab PO DAILY [facility] Last Admin: 05/16/21 08:29 Dose: 1 tab Documented by: Omeprazole (Omeprazole 40 Mg Capsule.Dr) 40 mg PO DAILY@0630 [facility] Last Admin: 05/16/21 06:10 Dose: 40 mg Documented by: Ondansetron HCl (Ondansetron Hcl 4 Mg/2 Ml Vial) 4 mg IVPUSH Q8H PRN PRN Reason: Nausea and Vomiting Oxycodone HCl (Oxycodone Hcl Immed Release 5 Mg Tablet) 10 mg PO Q4H PRN PRN Reason: Pain, Moderate (Pain Scale 4-6 Last Admin: 05/16/21 08:29 Dose: 10 mg Documented by: Oxycodone HCl (Oxycodone Hcl Er 10 Mg Tab.Er.12h) 10 mg PO BID [facility] Last Admin: 05/16/21 08:28 Dose: 10 mg Documented by: Senna (Sennosides 8.6 Mg Tablet) 17.2 mg PO BEDTIME PRN PRN Reason: Constipation Sodium Chloride (0.9 % Sodium Chloride Flush 3 Ml Syringe) 3 ml IVFLUSH QSHIFT [facility] Last Admin: 05/16/21 07:26 Dose: Not Given Documented by: Time Spent With Patient Time: Total time spent is greater than 50% in coordination of care (as documented) at patient's floor/unit and/or counseling patient: Time with patient: less than 15 minutes Quality Stroke Does the patient have a stroke diagnosis?: No VTE Prior VTE?: No VTE Risk Level:: Surgical - very high VTE Device Contraindication: N/A - Device Ordered VTE Drug Contraindication: N/A - Med Ordered
[2021-05-16] MEDS: 0.9 % Sodium Chloride Flush 3 ML SYRINGE IVFLUSH (19:22)
[2021-05-16] MEDS: Amitriptyline HCl 10 MG TABLET 20 MG PO (19:22)
[2021-05-17 04:00] VITALS: BP 90/53; PULSE 77; RESP 16; TEMP 36.4; O2SAT 98
[2021-05-17] MEDS: Acetaminophen 325 MG TABLET 650 MG PO (05:24)
[2021-05-17] MEDS: Omeprazole 40 MG CAPSULE.DR PO (05:26)
[2021-05-17] MEDS: oxyCODONE HCl Immed Release 5 MG TABLET 10 MG PO (05:26)
[2021-05-17 06:05] LABS: MANUAL DIFF FLAG NO
[2021-05-17 06:15] LABS: Basophils Percent Auto 0.5 % (0-2); Eosinophils Absolute Auto 0.2 X10*3/uL (0.0-0.4); Eosinophils Percent Auto 2.6 % (0-4); Hematocrit 30.9 % (37.0-47.0); Hemoglobin 10.1 g/dl (12.0-16.0); Imm Gran Abs Auto 0.02 X10*3/uL (0.00-0.03); Imm Gran Pct Auto 0.3 % (0.0-0.4); Lymphocytes Absolute Auto 1.7 X10*3/uL (1.2-4.9); Mean Corpuscular HGB Conc 32.7 g/dl (31.0-35.0); Mean Corpuscular Hemoglobin 30.1 pg (27.0-33.0); Mean Corpuscular Volume 92.2 fL (80.0-98.0); Mean Platelet Volume 11.3 fL (9.4-12.3); Monocytes Absolute Auto 0.9 X10*3/uL (0.1-1.2); Monocytes Percent Auto 13.3 % (2-11); Neutrophils Absolute Auto 3.7 x10*3/uL (2.0-8.3); Neutrophils Percent Auto 57.3 % (45-73); Platelet Count 178 X10*3/uL (160-400); Red Blood Count 3.35 X10*6/uL (4.20-5.50); Red Cell Distribution Width 14.7 % (11.0-16.0); White Blood Count 6.5 X10*3/uL (4.8-10.8)
[2021-05-17 06:35] LABS: Anion Gap 9 (12-20); Blood Urea Nitrogen 9 mg/dL (9-16); Calcium 8.1 mg/dL (8.4-10.2); Carbon Dioxide 27 mmol/L (22-29); Chloride 107 mmol/L (96-108); Creatinine Clr Calc Pharmacy 65.7; Estimated Glomerular Filt Rate > 60; Glucose Fasting 90 mg/dL (60-99); Sodium 139 mmol/L (135-145)
[2021-05-17 07:12] VITALS: BP 90/50; RESP 19; TEMP 35.5; O2SAT 90
--- NOTE | 2021-05-17 07:55 | PM.DS ---
DS: Providers Provider Date of Service: 05/17/21 Date of admission: 05/14/21 06:44 Primary care physician: Jackie Abdi MD Consults: 05/14/21 12:40 Consult to Hospitalist Routine Consulting Provider: Hospitalist Reason For Exam: post op medical management DS: Diagnosis Discharge Diagnosis (1) Status post total knee replacement, right: Status: Acute DS: Summary Hospital Course Hospital Course: The patient underwent a successful right total knee arthroplasty, they were transferred to PACU and then to the floor to recover. During their stay, their vitals were stable, afebrile at 96.0. POD2 patient had a drop in H/H and received 2 units of pack RBCs. H/H on discharge 10.1/30.9. POD 1 they were started onLovenox for DVT ppx, they also received Physical Therapy services twice a day. Prior to discharge, their dressing was changed, incision clean dry and intact, new Aquacel dressing applied and the plan was to be discharged home with VNA services. Time Spent with Patient Time attestation: Total time spent providing and/or coordinating discharge services: Discharge coordination time: Less than 30 minutes Quality: Stroke Does the patient have a stroke diagnosis?: No Physical Exam Vital Signs: Vital Signs: Last Vital Signs Temp 96 F L 05/17/21 07:12 Pulse 77 05/17/21 04:00 Resp 19 05/17/21 07:12 BP 90/50 L 05/17/21 07:12 Pulse Ox 90 L 05/17/21 07:12 BMI result Body Mass Index 29.7 Extrem: Other: Right knee Aquacel is clean, dry, and intact. No redness or drainage. Patient is ambulating. NVI. DS: Data Data Completed and Pending Completed studies during hospitalization [Text1]: Pending at discharge 05/14/21 09:22 Surgical [PTH] Routine Labs on day of discharge: Laboratory Results - last 24 hr 05/16/21 05/17/21 05/17/21 08:08 05:36 05:36 WBC 6.5 RBC 3.35 L D Hgb 10.1 L D Hct 30.9 L D MCV 92.2 MCH 30.1 MCHC 32.7 RDW 14.7 Plt Count 178 MPV 11.3 Immature Gran % (Auto) 0.3 Neut % (Auto) 57.3 Lymph % (Auto) 26.0 [place] % (Auto) 13.3 H Eos % (Auto) 2.6 Baso % (Auto) 0.5 Lymph # (Auto) 1.7 [place] # (Auto) 0.9 Eos # (Auto) 0.2 Baso # (Auto) 0.0 Abs Immat Gran (auto) 0.02 Absolute Neuts (auto) 3.7 Absolute Nucleated RBC 0.000 Nucleated RBC % (auto) 0.0 Sodium 139 Potassium 4.0 Chloride 107 Carbon Dioxide 27 Anion Gap 9 L BUN 9 Creatinine 0.86 Estim Creat Clear Calc 65.7 Estimated GFR > 60 Fasting Glucose 90 Calcium 8.1 L D Blood Type O Positive Antibody Screen NEGATIVE Crossmatch See Detail Discharge Plan Discharge Patient Disposition: Home Health Service Discharge Diagnosis: s/p RTKA Referrals: Alonzo Rivas, EVER [Physician Client Account Specialist] - 1 Week (05/30/21 at 11:00am) Discharge Medications: New celecoxib 200 mg Capsule 200 mg PO BID 30 Days Qty: 60 0RF acetaminophen 325 mg Tablet 650 mg PO Q6H PRN (Reason: Pain, Mild (Pain Scale 1-3)) 30 Days Qty: 240 0RF enoxaparin 40 mg/0.4 mL Syringe 40 mg subcut Q24H 42 Days Qty: 16.8 0RF oxycodone 10 mg tablet 10 mg PO Q4H PRN (Reason: Pain, Moderate (Pain Scale 4-6) 7 Days Qty: 42 0RF sennosides [Senna Lax] 8.6 mg Tablet 17.2 mg PO BEDTIME PRN (Reason: Constipation) 30 Days Qty: 60 0RF Continued multivitamin Tablet 1 tab PO DAILY 0RF budesonide-formoterol [Symbicort] 160-4.5 mcg/actuation HFA aerosol inhaler 2 puff inhalation BID 0RF amitriptyline 10 mg Tablet 20 mg PO BEDTIME 0RF magnesium hydroxide 400 mg (170 mg magnesium) tablet,chewable 400 mg PO DAILY 0RF simvastatin 10 mg tablet 10 mg PO DAILY 0RF riboflavin (vitamin B2) 100 mg tablet 100 mg PO BID 0RF albuterol sulfate 90 mcg/actuation aerosol powdr breath activated 2 inh inhalation Q6H PRN (Reason: Shortness Of Breath Or Wheezing) 0RF omeprazole 40 mg capsule,delayed release(/EC) 40 mg PO DAILY 0RF (DME) walker Misc See Rx Instructions .MEDSUPPLY Qty: 1 0RF Rx Instructions: Folding Front wheeled walker Discharge Orders: Discharge Order (Routine); Ordered 05/17/21 Ordered By: Teresa Mejia Diet: advance to usual diet Activity on Discharge: Use cane or walker Stand Alone Forms: Patient Portal Discharge page Care Plan Goals: restore fxn to rt knee Health Concerns: none Plan of Treatment: Physical Therapy for ROM 0-120, quad strength, gait training. Use walker for ambulation Limit stair climbing, No shower, No tub bath, No driving Continue anticoagulant Keep Aquacel dressing clean, dry and intact. Follow up with orthopedics in 2 weeks Assessment: stable for d/c
[2021-05-17 07:56] VITALS: BP 90/50; O2SAT 90
[2021-05-17 08:13] VITALS: PULSE 85; RESP 19; O2SAT 94
[2021-05-17] MEDS: Fluticasone/Vilanterol 100/25 BLST.W.DEV 1 PUFF INHALE (08:13)
[2021-05-17] MEDS: oxyCODONE HCl ER 10 MG TAB.ER.12H PO (08:42)
[2021-05-17] MEDS: Enoxaparin Sodium 40 MG/0.4 ML SYRINGE SUBCUT (08:42)
[2021-05-17] MEDS: Celecoxib 200 MG CAPSULE PO (08:42)
[2021-05-17] MEDS: Atorvastatin Calcium 10 MG TABLET PO (08:42)
[2021-05-17] MEDS: Multivitamin TABLET 1 TAB PO (08:42)
[2021-05-17] MEDS: Magnesium Oxide 400 MG TABLET PO (08:42)
== END 2021-05-17 09:45 | disposition home health service (06) | DRG 326 ==
LOC: HO.SSSA 06:45 → HO.S3 11:39
PROVIDERS: Nurse Practitioner; Physician Assistant; Admitting Provider Orthopaedic Surgery; PCP Student in an Organized Health Care Education/Training Program; Visit Provider Orthopaedic Surgery
PROC: 0SRC0J9 Replacement of Right Knee Joint with Synthetic Substitute, Cemented, Open Approach (ICD-10-PCS; CPT 27447; principal; 2021-05-14 07:30)
DX: M17.11 Unilateral primary osteoarthritis, right knee (principal); J45.909 Unspecified asthma, uncomplicated; Z20.822 Contact with and (suspected) exposure to COVID-19; S05.02XA Injury of conjunctiva and corneal abrasion without foreign body, left eye, initial encounter; X58.XXXA Exposure to other specified factors, initial encounter; K21.9 Gastro-esophageal reflux disease without esophagitis; Z79.899 Other long term (current) drug therapy
CPT/HCPCS: 36415; 73560; 80048; 81025; 85025; 86850; 86900; 86901; 86923; 87635; 87640; 87641; 88305; 88311; 93005; 94640; 97110; 97116; 97162; C1713; C1776; J0690; J1100; J1170; J1650; J2250; P9016

== ENCOUNTER → 2021-05-30 10:58 | Outpatient (BNVA) | payer MEDICAID, SELFPAY | PROVIDERS: PCP Student in an Organized Health Care Education/Training Program; Visit Provider Physician Assistant | DX: Z47.1 Aftercare following joint replacement surgery (principal); Z96.651 Presence of right artificial knee joint | CPT/HCPCS: 99212 ==

== ENCOUNTER 2021-07-09 14:00 | Outpatient (RCR) | payer MEDICAID, SELFPAY ==
--- NOTE | 2021-06-12 13:57 | MHC.PT.EP ---
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 She sustained tibial fx and ORIF in 2016 (had a PE) with revision of tibial plateua ORIF in 2018. She had home PT for 2 weeks and is now ambulating with a straight cane. 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 Examination shows decreased R knee strength, poor quad set with quad lag during SLR, R knee AROM 0-8-112, and impaired gait pattern. Recommend PT 2x/week for 5 weeks to address impairments, implement HEP, and optimize functional mobility. Frequency and Duration: The patient will be seen 2x/week for 5 weeks Short Term Goals: 3 weeks 1. Initiate HEP 2. Improve knee AROM: 0-2-124 3. Demonstrate appropriate heel strike with gait Fci Goals: 5 weeks 1. I with HEP and self management of sx 2. Pt will be able to walk with LRAD > 30 min 3. Ascend/descend stairs in step through pattern with one rail Treatment Plan: Modalities to reduce pain, spasms and effusion. Manual therapy to restore motion and function. Therapeutic exercise to improve strength and flexibility. Neuromuscular re-education for posture and balance. Therapeutic activities to return to functional activities of daily living. Electronically signed by: Windy Wilsno PT Please sign and return to therapist. Thank you for your referral.
--- NOTE | 2021-08-13 10:55 | MHC.PT.DC ---
[facility] [place] Office [place] Office [place] Office [address] Clementina Alcala [address] [phone] F: [phone] F: [phone] F: [phone] F: [phone] Physical Therapy Discharge Report Diagnosis: R TKA Date of Surgery: 05/14/21 Date of Evaluation: 06/12/21 Date of Discharge: 08/13/21 Treatments to Date: 3 Cancellations to Date: 7 No Shows to Date: 1 Discharge Status: Recommend MD Follow-up Visit Non-compliance Discharge Summary: Pt has cancelled several visits due to illness and has then no showed. She has not f/u with further visits and is now d/c Electronically signed by: Windy Wilson PT Please sign and return to therapist. Thank you for your referral.
== END 2021-08-13 10:55 | disposition home or self-care (01) ==
LOC: HO.PT 14:00
PROVIDERS: PCP Student in an Organized Health Care Education/Training Program; Visit Provider Physician Assistant
DX: T84.84XA Pain due to internal orthopedic prosthetic devices, implants and grafts, initial encounter (principal); Z96.651 Presence of right artificial knee joint
CPT/HCPCS: 97110; 97112; 97161

== ENCOUNTER 2021-08-07 12:13 | Outpatient (REF) | payer MEDICAID, SELFPAY ==
--- NOTE | ~2021-08-07 | XR_ITS ---
EXAMINATION: XR KNEE, RIGHT XR KNEE STANDING, BILATERAL CLINICAL INFORMATION: Pain COMPARISON: Right knee radiograph from 05/14/2021, left knee radiograph from 02/07/2021 TECHNIQUE: 2 views of the right knee and single view of the bilateral standing knees FINDINGS: No acute visible fracture or dislocation. Status post right knee arthroplasty. Orthopedic hardware is grossly intact. Moderate multicompartment degenerative changes of the left knee. Joint spaces and alignment are maintained. Soft tissues are unremarkable. XR/XR knee standing BI IMPRESSION: 1. No acute visible fracture or dislocation. 2. Status post right knee arthroplasty. Orthopedic hardware is grossly intact. 3. Moderate multicompartment degenerative changes of the left knee.
--- NOTE | ~2021-08-07 | XR_ITS ---
EXAMINATION: XR KNEE, RIGHT XR KNEE STANDING, BILATERAL CLINICAL INFORMATION: Pain COMPARISON: Right knee radiograph from 05/14/2021, left knee radiograph from 02/07/2021 TECHNIQUE: 2 views of the right knee and single view of the bilateral standing knees FINDINGS: No acute visible fracture or dislocation. Status post right knee arthroplasty. Orthopedic hardware is grossly intact. Moderate multicompartment degenerative changes of the left knee. Joint spaces and alignment are maintained. Soft tissues are unremarkable. XR/XR knee RT 2V IMPRESSION: 1. No acute visible fracture or dislocation. 2. Status post right knee arthroplasty. Orthopedic hardware is grossly intact. 3. Moderate multicompartment degenerative changes of the left knee.
== END 2021-08-07 12:14 | disposition home or self-care (01) ==
LOC: HO.HOSX 12:13
PROVIDERS: PCP Student in an Organized Health Care Education/Training Program; Visit Provider Physician Assistant
DX: M25.561 Pain in right knee (principal); M25.562 Pain in left knee; Z47.1 Aftercare following joint replacement surgery; Z96.651 Presence of right artificial knee joint
CPT/HCPCS: 73560; 73565; 99212

== ENCOUNTER → 2021-12-11 13:18 | Outpatient (BNVA) | payer MEDICAID, SELFPAY | PROVIDERS: PCP Student in an Organized Health Care Education/Training Program; Visit Provider Physician Assistant | DX: Z47.1 Aftercare following joint replacement surgery (principal); Z96.651 Presence of right artificial knee joint | CPT/HCPCS: 99212 ==

== ENCOUNTER 2022-05-12 11:35 | Outpatient (REF) | payer MEDICAID, SELFPAY | END 2022-05-12 11:36 | disposition home or self-care (01) | LOC: HO.HOSX 11:35 | PROVIDERS: Visit Provider Orthopaedic Surgery | DX: Z13.89 Encounter for screening for other disorder (principal) ==

== ENCOUNTER 2022-05-26 12:33 | Outpatient (REF) | payer MEDICAID, SELFPAY ==
--- NOTE | ~2022-05-26 | XR_ITS ---
EXAMINATION: XR RIGHT KNEE, AP BILATERAL KNEE CLINICAL INFORMATION: Right knee pain. COMPARISON: Bilateral knee AP and right knee 08/07/2021. TECHNIQUE: AP bilateral knee standing 1 view. Right knee 2 views. FINDINGS: AP bilateral knee standing: There is a right knee prosthesis in alignment. No periprosthetic loosening or fracture seen. No joint effusion seen. There is mild loss of medial and lateral compartment left knee. Right knee lateral and sunrise view reveals normal alignment of knee arthroplasty. The prosthetic components are in satisfactory alignment. No postoperative changes. No periprosthetic soft tissue abnormality seen. There is no abnormal joint effusion. XR/XR knee standing BI IMPRESSION: Total right knee arthroplasty in satisfactory alignment. No abnormality seen involving right knee. No change from 08/07/2021. Mild degenerative changes left knee. It is unchanged from 08/07/2021.
--- NOTE | ~2022-05-26 | XR_ITS ---
EXAMINATION: XR RIGHT KNEE, AP BILATERAL KNEE CLINICAL INFORMATION: Right knee pain. COMPARISON: Bilateral knee AP and right knee 08/07/2021. TECHNIQUE: AP bilateral knee standing 1 view. Right knee 2 views. FINDINGS: AP bilateral knee standing: There is a right knee prosthesis in alignment. No periprosthetic loosening or fracture seen. No joint effusion seen. There is mild loss of medial and lateral compartment left knee. Right knee lateral and sunrise view reveals normal alignment of knee arthroplasty. The prosthetic components are in satisfactory alignment. No postoperative changes. No periprosthetic soft tissue abnormality seen. There is no abnormal joint effusion. XR/XR knee RT 2V IMPRESSION: Total right knee arthroplasty in satisfactory alignment. No abnormality seen involving right knee. No change from 08/07/2021. Mild degenerative changes left knee. It is unchanged from 08/07/2021.
== END 2022-05-26 12:34 | disposition home or self-care (01) ==
LOC: HO.HOSX 12:33
PROVIDERS: Visit Provider Orthopaedic Surgery
DX: M21.062 Valgus deformity, not elsewhere classified, left knee (principal); Z96.651 Presence of right artificial knee joint
CPT/HCPCS: 73560; 73565

== ENCOUNTER 2022-08-11 17:17 | Inpatient (IN) | payer MEDICAID, SELFPAY ==
--- NOTE | ~2022-08-11 | XR_ITS ---
EXAMINATION: XR KNEE, RIGHT CLINICAL INFORMATION: Preop COMPARISON: Previous x-ray most recent April 2022 TECHNIQUE: 2 of the right knee. FINDINGS: There is a right 3 component knee replacement. No fracture or dislocation or x-ray evidence of loosening. There is a joint effusion. There is soft tissue swelling superior to the patella in the region of the quadriceps tendon. XR/XR knee RT 2V IMPRESSION: Satisfactory appearance of right knee replacement. Joint effusion. Question soft tissue swelling superior patella and the region of the quadriceps tendon.
--- NOTE | 2022-08-11 17:25 | PM.IMHP ---
History of Present Illness Date of Service: 08/11/22 Chief Complaint: right knee pain, swelling and fever A 52-year-old female patient with a medical history that includes stage 3 chronic kidney disease (CKD), a previous pulmonary embolism (PE) and deep vein thrombosis (DVT), anxiety/depression, chronic chest pain, chronic pelvic pain, obesity following gastric bypass surgery, and a previous right total knee replacement (TKR) performed by Dr. Cerrato in Apr 2021.. She presented to the emergency department at [facility] with a three-day history of right knee pain and leg pain, difficulty bearing weight, a fever of up to 101 degrees Fahrenheit, and redness from the righ knee down the leg (see picture). Laboratory tests conducted at [facility] revealed a white blood cell count (WBC) of 14, a C-reactive protein (CRP) level of 29, and a lactic acid level of 2. An ultrasound of her leg ruled out venous thromboembolism (VTE). An X-ray of the right knee showed the total knee replacement in the expected position without any signs of complications. The orthopedic service at [facility] performed a joint aspiration of the right knee, which revealed turbid yellow fluid with a Gram stain showing 4+ polymorphonuclear leukocytes, but no identifiable organisms were detected. The [facility] orthopedic team recommended transferring the patient to her orthopedist, Dr. Cerrato, for further evaluation and management, which may involve initiating intravenous antibiotics and considering potential surgical exploration. Intravenous antibiotics were initiated at [facility]. Review of Systems Review of Systems: Gen: + fever Resp: no sob, no cough CV: no chest, no SCHMIDT, no leg edema GI: No n/v, no abd pain Neuro: No confusion MSK: right knee pain Yes all other systems are reviewed and are negative [facility] Medical History Asthma Cellulitis High cholesterol History of DVT (deep vein thrombosis) History of pulmonary embolism HTN (hypertension) Infection associated with internal right knee prosthesis Post-traumatic osteoarthritis of right knee Sleep apnea Surgical History H/O right knee surgery History of bunionectomy of both great toes History of History of laparoscopic cholecystectomy Hx of gastric bypass Status post total knee replacement, right Social History Household Members: Spouse Housing: House Are you a primary date night caregiver to a significant other at home: No Do you presently have visiting nurse or other home services: No Alcohol intake: never Patient Tobacco Use Status: Never used Tobacco service: No Current occupational status: unemployed Current occupation: rt handed. Meds Allergies Allergy/AdvReac Type Severity Reaction Status Date / Time No Known Allergies Allergy Verified 08/30/22 18:04 Active Medications: Current Medications Melatonin (Melatonin 3 Mg Tablet) 6 mg PO BEDTIME PRN PRN Reason: Insomnia Morphine Sulfate (Morphine Sulfate 4 Mg/Ml Cartridge) 2 mg IVPUSH Q6H PRN; Protocol PRN Reason: Pain, Severe (Pain Scale 7-10) Sodium Chloride (0.9 % Sodium Chloride Flush 3 Ml Syringe) [facility]ations Medication Instructions Recorded Confirmed Last Taken Type albuterol sulfate 90 mcg/actuation 2 inh inhalation Q6H PRN Shortness 11/15/20 08/11/22 Unknown History breath activated powder inhaler Of Breath Or Wheezing omeprazole 40 mg capsule,delayed 40 mg PO DAILY@0630 11/15/20 08/11/22 Unknown History release simvastatin 10 mg tablet 10 mg PO DAILY 11/15/20 08/11/22 Unknown History budesonide-formoterol HFA 160 2 puff inhalation BID PRN 05/06/21 08/11/22 Unknown History mcg-4.5 mcg/actuation aerosol Shortness Of Breath inhaler (Symbicort) azelastine 137 mcg (0.1 %) nasal 1 spray intranasal BID 08/11/22 08/11/22 Unknown History spray aerosol dicyclomine 10 mg capsule 10 mg PO TID 08/11/22 08/11/22 Unknown History fluoxetine 10 mg capsule 10 mg PO DAILY 08/11/22 08/11/22 Unknown History hydroxyzine HCl 25 mg tablet 25 mg PO DAILY 08/11/22 08/11/22 Unknown History sertraline 25 mg tablet 50 mg PO DAILY 08/11/22 08/11/22 Unknown History verapamil 40 mg tablet 40 mg PO BID 08/11/22 08/11/22 Unknown History Physical Exam Const: Other: General: ?Alert, no acute distress. ? Skin: ?Warm, dry, pink,?Diffuse erythematous as demonstrated in the picture Head: ?Normocephalic, atraumatic. ? Neck: ?Supple, trachea midline. ? Eye: ?Pupils are equal, round and reactive to light.? Cardiovascular: ?Regular rate and rhythm.? Respiratory: ?Lungs are clear to auscultation, respirations are non-labored. ? Gastrointestinal: ?Soft, Nontender, Non distended. ? Musculoskeletal: ?RLE exquisitely tender with palpation/movement..? Neurological: ?Alert and oriented to person, place, time, and situation.? Results Labs 08/15/22 07:35 08/16/22 05:53 Assessment and Plan (1) Infection associated with internal right knee prosthesis: Status: Acute Plan A 52-year-old female patient with a medical history that includes stage 3 chronic kidney disease (CKD), a previous pulmonary embolism (PE) and deep vein thrombosis (DVT), anxiety/depression, chronic chest pain, chronic pelvic pain, obesity following gastric bypass surgery, and a previous right total knee replacement (TKR) performed by Dr. Cerrato one year ago. She presented to the emergency department at [facility] with a three-day history of right knee pain, difficulty bearing weight, a fever of 101 degrees Fahrenheit, and redness. Laboratory tests conducted at [facility] revealed a white blood cell count (WBC) of 14, a C-reactive protein (CRP) level of 29, and a lactic acid level of 2. An ultrasound of her leg ruled Cellulitis of the right lower leg and concern of possible Septic prosthetic joint -Received a dose Vanco around noon at [facility], continue Vancomycin -Add Zosyn -Ortho consult -NPO after midnight for question need for surgery -Get blood culture -Follow up on aspirate culture at [facility] -IV morphine for pain Moderate Persistent ASthma with no acute exacerbation -continue inhalers Anxiety, Depression--Sertra;ome HLD--Statin DVT prohylaxis--Lovenox Need for inpatient: Cellulitis > 50% of leg and concern of septic right prosthetic knee joint and need IV Abx and possible need for surgical exploration Time Spent With Patient Time: Total time managing care of this patient today ____ minutes. Quality Stroke Does the patient have a stroke diagnosis?: No VTE Prior VTE?: No VTE Risk Level:: Medical - moderate - high VTE Device Contraindication: Treatment Not Indicated VTE Drug Contraindication: N/A - Med Ordered
[2022-08-11 17:40] VITALS: BMI 31.6
[2022-08-11 18:13] VITALS: BP 99/58; PULSE 86; RESP 17; TEMP 36.4; O2SAT 98
--- NOTE | 2022-08-11 18:18 | PC.NURSE ---
pt a direct admit to room 360. pt had presented to [facility] today with complaints of increasing pain and unable to bear weight to RLE since 08/09. Pt reports past surgical hx of RTK with Dr Mayo 04/2021 presents here for further management
[2022-08-11] MEDS: Piperacillin Sodium/Tazobactam 3.375 GM in 0.9 % Sodium Chloride 50 ML IV (18:40)
[2022-08-11] MEDS: Enoxaparin Sodium 40 MG/0.4 ML SYRINGE SUBCUT (18:40)
[2022-08-11 19:09] LABS: Creatinine Clr Calc Pharmacy 67.8; Estimated Glomerular Filt Rate > 60
--- NOTE | 2022-08-11 19:26 | PHA.PROG ---
Admission Date/Time: August 11, 2022 17:17 Indication: SKIN Weight in k kg Serum Creatinine - Last 168 Hours 08/11/22 18:40 Creatinine 0.85 Estimated CrCl and GFR - Last 168 Hours 08/11/22 18:40 Estim Creat Clear Calc 67.8 Estimated GFR > 60 Vancomycin Loading Dose: 1000 @ 1200 FROM [facility] ADDITIONAL Current Vancomycin Dosing Regimen: 1000 Q 12 Vancomycin Monitoring using AUC goal of 400 - 600 range with trough as surrogate marker: 563 Date and Time for next Vancomycin Level to be drawn: 0700 ON 08/12 Pharmacist Comments on Vancomycin Plan: 1250 TO GET UP TO AUC OF 450 AND THEN 1000Q 12 Vancomycin dosing will take advantage of [employer] as a clinical decision support tool that uses Bayesian modeling to calculate individual patient's pharmacokinetic parameters and forecast the patient's drug concentration time course with the target goal AUC 24 range of 400 - 600 mg/L/hr.
--- NOTE | 2022-08-11 19:35 | PHA.MEDREC ---
Pharmacy Consult ? Medication Reconciliation Pharmacy has completed the medication reconciliation.
[2022-08-11] MEDS: 0.9 % Sodium Chloride Flush 3 ML SYRINGE IVFLUSH (19:42)
[2022-08-11] MEDS: Morphine Sulfate 4 MG/ML CARTRIDGE 2 MG IVPUSH (19:42)
[2022-08-11 19:46] VITALS: TEMP 37.2
[2022-08-11] MEDS: vancomycin HCL 1,250 MG in 0.9 % Sodium Chloride 250 ML 166.67 MG IV (20:36)
[2022-08-12] VITALS (16 sets, daily range): BP systolic 90–128; BP diastolic 50–83; PULSE 73–103; RESP 13–18; TEMP 36.1–38.1; O2SAT 92–100
--- NOTE | 2022-08-12 | ECG_ITS ---
Test Reason : PREOP Blood Pressure : / mmHG Vent. Rate : 081 BPM Atrial Rate : 081 BPM P-R Int : 138 ms QRS Dur : 074 ms QT Int : 374 ms P-R-T Axes : 035 008 029 degrees QTc Int : 434 ms Normal sinus rhythm Normal ECG When compared with ECG of 10-APR-2021 12:07, No significant change was found Referred By: Bobby Cerrato Electronically Signed By:Chris Hunter
[2022-08-12] MEDS: Acetaminophen 325 MG TABLET 650 MG PO ×2 (00:29→20:00)
[2022-08-12] MEDS: Morphine Sulfate 4 MG/ML CARTRIDGE IVPUSH ×4 (00:30→21:10)
[2022-08-12] MEDS: Piperacillin Sodium/Tazobactam 3.375 GM in 0.9 % Sodium Chloride 50 ML IV ×4 (00:33→22:14)
[2022-08-12 00:54] LABS: Lactic Acid 0.8 mmol/L (0.5-2.0)
[2022-08-12] MEDS: Melatonin 3 MG TABLET 6 MG PO (02:02)
--- NOTE | 2022-08-12 06:14 | PC.NURSE ---
pt c/o 01/06 pain after morphine 2mg q6, notified changed to 4 mg q4 and given Tylenol for fever 100.6. improved 97.5. feels better. RLE, warm to touch applied ice pack. pt states that morphine and ice pack is very helpful for pain. still 11/06 but ok.
--- NOTE | 2022-08-12 06:44 | P.HPOP_ITS ---
History of Present Illness History of Present Illness Date of Service: 08/12/22 Chief complaint: Septic Knee Narrative: Sade Fraga is a 52 year old female s/p right TKA in 05/21. She was doing well, last seen in my office 3 months ago with no complaints. She presented to [facility] ED yesterday with 48 hours of knee pain, 24 hours of difficulty walking and her right knee was aspirated and showed 27K WBC with 84% PMNs. She was started on IV abx and transferred to our hospital for definitive managment. On eval she complains of right knee pain only. She reports doing fine prior to last weekend. She denies dental work or any recent illness. She has a history of DVT and was given 40 mg of lovenox yesterday. She is on Vanc/Zosyn Review of Systems Constitutional: Constitutional: Reports body ache(s) Eyes: Eyes: Reports no additional eye complaints ENT: Reports as per HPI Cardiovascular: Cardiovascular: Reports no additional cardiovascular complaints Respiratory: Respiratory: Reports no additional respiratory complaints Gastrointestinal: Gastrointestinal: Reports no additional gastrointestinal complaints Genitourinary: Genitourinary: Reports no additional female genitourinary complaints Musculoskeletal: Musculoskeletal: Reports arthralgias Neurologic: Reports as per HPI Psychiatric: Psychiatric: Reports as per HPI [facility] Past Medical History Medical History Asthma High cholesterol History of DVT (deep vein thrombosis) History of pulmonary embolism HTN (hypertension) Post-traumatic osteoarthritis of right knee Sleep apnea Surgical History Surgical History H/O right knee surgery History of bunionectomy of both great toes History of History of laparoscopic cholecystectomy Hx of gastric bypass Social History Social History Household Members: Spouse Housing: House Are you a primary emergency care attendant to a significant other at home: No Do you presently have visiting nurse or other home services: No Alcohol intake: never Patient Tobacco Use Status: Never used Tobacco Use of substances other than those prescribed or required for medical reasons: No Currently Displaying Signs/Symptoms of Drug Intoxication Withdrawal: No Have you been hit, kicked, punched, or otherwise hurt by someone within the past year? If so, by whom?: No Do you feel safe in your current relationship?: Yes Is there a partner from a previous relationship who is making you feel unsafe now?: No Are you made to feel afraid or neglected: No Advance Directives: No Advance Directives Information Provided: No Advance Directives on File: No Do you have thoughts of harming others: None Do you have a plan to hurt others: No Plan Recently lost weight without trying: No How much weight loss: Not applicable Eating poorly because of decreased appetite: No Nutrition screen score: 0 Nutrition Risks: No Nutritional Risk Patient : No : No Poor oral hygiene: No service: No Current occupational status: unemployed Current occupation: rt handed. Meds Allergies Allergy/AdvReac Type Severity Reaction Status Date / Time No Known Allergies Allergy Verified 05/26/22 13:24 Active Medications: Current Medications Acetaminophen (Acetaminophen 325 Mg Tablet) 650 mg PO Q6H PRN PRN Reason: Fever Last Admin: 08/12/22 00:29 Dose: 650 mg Enoxaparin Sodium (Enoxaparin Sodium 40 Mg/0.4 Ml Syringe) 40 mg SUBCUT Q24H PENDING SALE TO [facility] Last Admin: 08/11/22 18:40 Dose: 40 mg Piperacillin Sod/Tazobactam (Sod 3.375 gm/ Sodium Chloride) 50 mls @ 100 mls/hr IV Q6H PENDING SALE TO [facility] Last Admin: 08/12/22 06:10 Dose: 100 mls/hr Vancomycin HCl 1,000 mg/ (Sodium Chloride) 270 mls @ 270 mls/hr IV Q12H PENDING SALE TO [facility] Melatonin (Melatonin 3 Mg Tablet) 6 mg PO BEDTIME PRN PRN Reason: Insomnia Last Admin: 08/12/22 02:02 Dose: 6 mg Morphine Sulfate (Morphine Sulfate 4 Mg/Ml Cartridge) 4 mg IVPUSH Q4H PRN; Protocol PRN Reason: Pain, Severe (Pain Scale 7-10) Last Admin: 08/12/22 00:30 Dose: 4 mg Pharmacy Consult (Consult Rx Vancomycin Dosing) 1 each MISCELLANE DAILY PRN PRN Reason: Consult order Sodium Chloride (0.9 % Sodium Chloride Flush 3 Ml Syringe) 3 ml IVFLUSH QSHIFT PENDING SALE TO [facility] Last Admin: 08/11/22 19:42 Dose: 3 ml Home Medications Medication Instructions Recorded Confirmed Last Taken Type albuterol sulfate 90 mcg/actuation 2 inh inhalation Q6H PRN Shortness 11/15/20 08/11/22 Unknown History breath activated powder inhaler Of Breath Or Wheezing omeprazole 40 mg capsule,delayed 40 mg PO DAILY@0630 11/15/20 08/11/22 Unknown History release simvastatin 10 mg tablet 10 mg PO DAILY 11/15/20 08/11/22 Unknown History budesonide-formoterol HFA 160 2 puff inhalation BID PRN 05/06/21 08/11/22 Unknown History mcg-4.5 mcg/actuation aerosol Shortness Of Breath inhaler (Symbicort) azelastine 137 mcg (0.1 %) nasal 1 spray intranasal BID 08/11/22 08/11/22 Unknown History spray aerosol dicyclomine 10 mg capsule 10 mg PO TID 08/11/22 08/11/22 Unknown History fluoxetine 10 mg capsule 10 mg PO DAILY 08/11/22 08/11/22 Unknown History hydroxyzine HCl 25 mg tablet 25 mg PO DAILY 08/11/22 08/11/22 Unknown History sertraline 25 mg tablet 50 mg PO DAILY 08/11/22 08/11/22 Unknown History verapamil 40 mg tablet 40 mg PO BID 08/11/22 08/11/22 Unknown History Physical Exam Vital Signs: Vital Signs: Last Vital Signs Temp 97.2 F 08/12/22 03:47 Pulse 88 08/12/22 03:47 Resp 16 08/12/22 03:47 BP 90/55 L 08/12/22 03:47 Pulse Ox 94 08/12/22 03:47 O2 Del Method Room Air 08/12/22 03:47 BMI result Body Mass Index 31.6 Const: General: cooperative, healthy appearing, no acute distress, well developed and alert HEENT: Head: Yes normal to inspection, Yes normocephalic and Yes atraumatic Mouth: moist mucous membranes Eyes: General: appearance normal, both eyes and all related structures EOM: EOMs intact bilaterally Chest: Other: no audible wheezing. Resp: Other: No audible wheezing Effort & Inspection: normal respiratory effort Cardio: Other: Radial pulse palpable with no rythmic abnormalities Back/Spine/Pelvis: Cervical Spine: normal cervical lordosis Skin: General skin exam: no rashes or lesions noted Neuro: General: no focal motor deficits Extrem: Other: moderate warmth and effusion right knee. well healed incision. no calf TTP. Firing EHL/TA/GC Psych: Appearance: grossly normal and well kempt Mental Status: mental status grossly normal Speech and movement: Normal speech and movement present Affect: normal affect Attitude: cooperative Results Labs 08/11/22 18:40 Labs: Labs from today pending Labs from [facility] : Synovial fluid aspirate: WBC 27K PMNs 84% Assessment and Plan (1) Status post total knee replacement, right: Status: Acute Plan THis is a 52 yo F almost 18 mo s/p right TKA with acute pain and swellign and aspirate hightly suggestive of infection. Cultures pending. I recommend surgery for irrigaion and debridement iwth liner exchange. I discussed this with her. I think it is acute enough to warrant this intervention but I explained that it may require additional surgery in the future. She expressed understanding. I discussed the risks benefits and alternatives including but not limited to the risk of pain, infection, stiffness, need for further surgery as well as potential medical complications such as blood clots, pulmonary embolism and cardiac complications. Time Spent With Patient Time: Total time managing care of this patient today 30 minutes. Quality Stroke Does the patient have a stroke diagnosis?: No VTE Prior VTE?: Yes VTE Risk Level:: Medical - moderate - high VTE Device Contraindication: Treatment Not Indicated VTE Drug Contraindication: N/A - Med Ordered Procedures Date of Service Date of Service: 08/12/22
[2022-08-12 06:55] LABS: Hematocrit 33.2 % (37.0-47.0); Hemoglobin 10.7 g/dl (12.0-16.0); Mean Corpuscular HGB Conc 32.2 g/dl (31.0-35.0); Mean Corpuscular Hemoglobin 28.8 pg (27.0-33.0); Mean Corpuscular Volume 89.2 fL (80.0-98.0); Mean Platelet Volume 10.8 fL (9.4-12.3); Platelet Count 179 X10*3/uL (160-400); Red Blood Count 3.72 X10*6/uL (4.20-5.50)
[2022-08-12 07:12] LABS: Anion Gap 10 (12-20); Blood Urea Nitrogen 15 mg/dL (9-16); Calcium 8.1 mg/dL (8.4-10.2); Carbon Dioxide 25 mmol/L (22-29); Chloride 109 mmol/L (96-108); Creatinine Clr Calc Pharmacy 66.3; Estimated Glomerular Filt Rate > 60; Glucose Random 100 mg/dL (60-115); Sodium 140 mmol/L (135-145)
[2022-08-12 07:17] LABS: Vancomycin Random 14.4 mcg/mL (15-20)
--- NOTE | 2022-08-12 07:35 | HE.PHANOTE ---
Vancomycin Dosing Addendum Patients level came back at 14.4. Patient had a load dose here and another dose at [facility]. Patients Scr has increased since last night from 0.85 to 0.87. NExt draw is 08/13 @0700 after two doses to see how patient can tolerate Q12H dosing and to assess efficacy vs safety. Predicted AUC 580 mg/L/hr. Predicted trough after two doses is 16.8.
[2022-08-12] MEDS: 0.9 % Sodium Chloride Flush 3 ML SYRINGE IVFLUSH ×3 (07:50→23:09)
[2022-08-12 08:25] LABS: Band Neutrophils Percent 3 % (3-5); Basophils Abs Manual 0.1 X10*3/uL (0.0-0.2); Basophils Percent Manual 1 % (0-2); Eosinophils Absolute Manual 0.3 X10*3/uL (0.0-0.4); Eosinophils Percent Manual 3 % (0-4); Lymphocytes Percent Manual 11 % (20-40); Metamyelocytes Absolute 0.2 X10*3/uL; Metamyelocytes Percent 2 %; Monocytes Percent Manual 11 % (2-11); Neutrophils Absolute Manual 6.5 X10*3/uL (2.0-8.3); Neutrophils Percent Manual 69 % (45-73)
[2022-08-12 08:27] LABS: Large Platelet PRESENT; Platelet Estimate NORMAL (NORMAL); Platelet Morphology Comment NOTED; RBC Morphology NORMAL
--- NOTE | 2022-08-12 08:45 | PC.NURSE ---
report called to [facility] in short stay
[2022-08-12] MEDS: vancomycin HCL 1,000 MG in 0.9 % Sodium Chloride 250 ML 270 MG IV ×2 (08:58→21:10)
--- NOTE | 2022-08-12 12:17 | MHC.SHP ---
Pre-Procedural Eval Section A Date of Service: 08/12/22 The patient is an INPATIENT: Yes Changes since office visit: No Cold of Flu in the past 2 weeks, No New Medical Problems, No Changes in Medication and No Patient answered all questions The History & Physical has been completed within 30 days and I have reviewed it.: Yes Section B Chief Complaint: Septic Knee Allergies: Allergies Allergy/AdvReac Type Severity Reaction Status Date / Time No Known Allergies Allergy Verified 05/26/22 13:24 Plan I have reviewed the history and physical and performed a pertinent physical examination on my patient. No changes have occurred unless specified. Time Spent With Patient Time: Total time managing care of this patient today ____ minutes.
--- NOTE | 2022-08-12 12:55 | P.PNIM_ITS ---
Subjective Subjective Date of Service: 08/12/22 Interval History: right knee pain, swelling? and fever Review of Systems symptoms seems similar to yesterday last fever was at midnight Physical Exam Vital Signs: Vital Signs: Last Vital Signs Temp 97.7 F 08/12/22 10:32 Pulse 79 08/12/22 10:32 Resp 18 08/12/22 10:32 BP 107/62 08/12/22 10:32 Pulse Ox 100 08/12/22 10:32 O2 Del Method Room Air 08/12/22 10:32 BMI result Body Mass Index 31.6 Appearance: Alert.? Oriented X3.? not in distress.? cvs: rrr, [id number] . res: clear to auscultation ,no rhonchii or wheezing abd: no rebound or guarding ,nt, bs present. ext pulses present , no cyanosis . right knee mild swelling/pain neuro: axo3 , nonfocal. Objective Data Active Medications Acetaminophen (Acetaminophen 325 Mg Tablet) 650 mg PO Q6H PRN PRN Reason: Fever Last Admin: 08/12/22 00:29 Dose: 650 mg Documented By: SLOANE Piperacillin Sod/Tazobactam (Sod 3.375 gm/ Sodium Chloride) 50 mls @ 100 mls/hr IV Q6H [facility] Last Infusion: 08/12/22 06:40 Dose: 0 mls/hr Documented By: FIOR Vancomycin HCl 1,000 mg/ (Sodium Chloride) 270 mls @ 270 mls/hr IV Q12H [facility] Last Infusion: 08/12/22 10:18 Dose: 0 mls/hr Documented By: FIOR Melatonin (Melatonin 3 Mg Tablet) 6 mg PO BEDTIME PRN PRN Reason: Insomnia Last Admin: 08/12/22 02:02 Dose: 6 mg Documented By: SLOANE Morphine Sulfate (Morphine Sulfate 4 Mg/Ml Cartridge) 4 mg IVPUSH Q4H PRN; Protocol PRN Reason: Pain, Severe (Pain Scale 7-10) Last Admin: 08/12/22 07:53 Dose: 4 mg Documented By: FIOR Pharmacy Consult (Consult Rx Vancomycin Dosing) 1 each MISCELLANE DAILY PRN PRN Reason: Consult order Sodium Chloride (0.9 % Sodium Chloride Flush 3 Ml Syringe) 3 ml IVFLUSH QSHIFT [facility] Last Admin: 08/12/22 07:50 Dose: 3 ml Documented By: FIOR Labs 08/12/22 06:42 08/12/22 06:42 Labs: Laboratory Results - last 24 hr 08/11/22 08/12/22 08/12/22 18:40 00:36 06:42 MCV MCH MCHC RDW Plt Count MPV Immature Gran % (Auto) Neut % (Auto) Lymph % (Auto) [place] % (Auto) Eos % (Auto) Baso % (Auto) Lymph # (Auto) [place] # (Auto) Eos # (Auto) Baso # (Auto) Abs Immat Gran (auto) Absolute Neuts (auto) Absolute Nucleated RBC Nucleated RBC % (auto) Neutrophils % (Manual) Band Neutrophils % Lymphocytes % (Manual) Monocytes % (Manual) Eosinophils % (Manual) Basophils % (Manual) Metamyelocytes % Abs Neuts (Manual) Lymphocytes # (Manual) Monocytes # (Manual) Eosinophils # (Manual) Basophils # (Manual) Metamyelocytes # Platelet Estimate Large Platelets Plt Morphology Comment RBC Morphology Anion Gap Estim Creat Clear Calc 67.8 Estimated GFR > 60 Random Glucose Lactic Acid 0.8 Calcium Random Vancomycin 14.4 L Blood Type Antibody Screen 08/12/22 08/12/22 08/12/22 06:42 06:42 08:10 MCV 89.2 MCH 28.8 MCHC 32.2 RDW 16.0 Plt Count 179 MPV 10.8 Immature Gran % (Auto) Cancelled Neut % (Auto) Cancelled Lymph % (Auto) Cancelled [place] % (Auto) Cancelled Eos % (Auto) Cancelled Baso % (Auto) Cancelled Lymph # (Auto) Cancelled [place] # (Auto) Cancelled Eos # (Auto) Cancelled Baso # (Auto) Cancelled Abs Immat Gran (auto) Cancelled Absolute Neuts (auto) Cancelled Absolute Nucleated RBC 0.000 Nucleated RBC % (auto) 0.0 Neutrophils % (Manual) 69 Band Neutrophils % 3 Lymphocytes % (Manual) 11 L Monocytes % (Manual) 11 Eosinophils % (Manual) 3 Basophils % (Manual) 1 Metamyelocytes % 2 Abs Neuts (Manual) 6.5 Lymphocytes # (Manual) 1.0 L Monocytes # (Manual) 1.0 Eosinophils # (Manual) 0.3 Basophils # (Manual) 0.1 Metamyelocytes # 0.2 Platelet Estimate NORMAL Large Platelets PRESENT Plt Morphology Comment NOTED RBC Morphology NORMAL Anion Gap 10 L Estim Creat Clear Calc 66.3 Estimated GFR > 60 Random Glucose 100 Lactic Acid Calcium 8.1 L Random Vancomycin Blood Type O Positive Antibody Screen NEGATIVE Assessment and Plan (1) Status post total knee replacement, right: Status: Acute (2) Cellulitis: Status: Acute Plan 52-year-old female patient with a medical history that includes stage 3 chronic kidney disease (CKD), a previous pulmonary embolism (PE) and deep vein thrombosis (DVT), anxiety/depression, chronic chest pain, chronic pelvic pain, obesity following gastric bypass surgery, and a previous right total knee replacement (TKR) performed by Dr. Cerrato one year ago. She presented to the emergency department at [facility] with a three-day history of right knee pain, difficulty bearing weight, a fever of 101 degrees Fahrenheit, and redness. Laboratory tests conducted at [facility] revealed a white blood cell count (WBC) of 14, a C-reactive protein (CRP) level of 29, and a lactic acid level of 2. An ultrasound of her leg ruled Cellulitis of the right lower leg and concern of possible Septic prosthetic joint Received a dose Vanco around noon at [facility], continue Vancomycin NPO ,hydration,iv zosyn and iv morphine , started 08/11,bood cultures. Follow up on aspirate culture at [facility] ortho plan-?if need surgery Moderate Persistent ASthma with no acute exacerbation -continue inhalers Anxiety, Depression--Sertra;ome HLD--Statin DVT prohylaxis--Lovenox Need for inpatient: Cellulitis > 50% of leg and concern of septic right prosthetic knee joint and need IV Abx and possible need for surgical exploration Time Spent With Patient Time: Total time managing care of this patient today ____ minutes. Quality Stroke Does the patient have a stroke diagnosis?: No VTE Prior VTE?: Yes VTE Risk Level:: Medical - moderate - high VTE Device Contraindication: Treatment Not Indicated VTE Drug Contraindication: N/A - Med Ordered
--- NOTE | 2022-08-12 13:21 | P.CONAN_ITS ---
HPI - Anesthesia Eval Consult details Narrative: 52 F w/ knee prosthesis infection PMFSH Active Problems Active Problems: All Active Problems (Updated 05/25/21 @ 00:01 by Maldonado Ruiz) Status post total knee replacement, right (Acute) Valgus deformity, not elsewhere classified, left knee (Acute) Past Medical History Medical History Asthma High cholesterol History of DVT (deep vein thrombosis) History of pulmonary embolism HTN (hypertension) Post-traumatic osteoarthritis of right knee Sleep apnea Family History Family history of problems with anesthesia: No Surgical History Surgical History H/O right knee surgery History of bunionectomy of both great toes History of History of laparoscopic cholecystectomy Hx of gastric bypass History of Problems with Anesthesia: No Social History Social History Household Members: Spouse Housing: House Are you a primary emergency care tech to a significant other at home: No Do you presently have visiting nurse or other home services: No Alcohol intake: never Patient Tobacco Use Status: Never used Tobacco Use of substances other than those prescribed or required for medical reasons: No Currently Displaying Signs/Symptoms of Drug Intoxication Withdrawal: No Have you been hit, kicked, punched, or otherwise hurt by someone within the past year? If so, by whom?: No Do you feel safe in your current relationship?: Yes Is there a partner from a previous relationship who is making you feel unsafe now?: No Are you made to feel afraid or neglected: No Are you DNR?: No Advance Directives: No Advance Directives Information Provided: No Advance Directives on File: No Do you have thoughts of harming others: None Do you have a plan to hurt others: No Plan Recently lost weight without trying: No How much weight loss: Not applicable Eating poorly because of decreased appetite: No Nutrition screen score: 0 Nutrition Risks: No Nutritional Risk Patient : No : No Poor oral hygiene: No service: No Current occupational status: unemployed Current occupation: rt handed. Meds Allergies Allergy/AdvReac Type Severity Reaction Status Date / Time No Known Allergies Allergy Verified 05/26/22 13:24 Active Medications: Current Medications Acetaminophen (Acetaminophen 325 Mg Tablet) 650 mg PO Q6H PRN PRN Reason: Fever Last Admin: 08/12/22 00:29 Dose: 650 mg Piperacillin Sod/Tazobactam (Sod 3.375 gm/ Sodium Chloride) 50 mls @ 100 mls/hr IV Q6H [facility] Last Infusion: 08/12/22 06:40 Dose: Infused Vancomycin HCl 1,000 mg/ (Sodium Chloride) 270 mls @ 270 mls/hr IV Q12H [facility] Last Infusion: 08/12/22 10:18 Dose: Infused Melatonin (Melatonin 3 Mg Tablet) 6 mg PO BEDTIME PRN PRN Reason: Insomnia Last Admin: 08/12/22 02:02 Dose: 6 mg Morphine Sulfate (Morphine Sulfate 4 Mg/Ml Cartridge) 4 mg IVPUSH Q4H PRN; Protocol PRN Reason: Pain, Severe (Pain Scale 7-10) Last Admin: 08/12/22 07:53 Dose: 4 mg Pharmacy Consult (Consult Rx Vancomycin Dosing) 1 each MISCELLANE DAILY PRN PRN Reason: Consult order Sodium Chloride (0.9 % Sodium Chloride Flush 3 Ml Syringe) 3 ml IVFLUSH QSHIFT [facility] Last Admin: 08/12/22 07:50 Dose: 3 ml Home Medications Medication Instructions Recorded Confirmed Last Taken Type albuterol sulfate 90 mcg/actuation 2 inh inhalation Q6H PRN Shortness 11/15/20 08/11/22 Unknown History breath activated powder inhaler Of Breath Or Wheezing omeprazole 40 mg capsule,delayed 40 mg PO DAILY@0630 11/15/20 08/11/22 Unknown History release simvastatin 10 mg tablet 10 mg PO DAILY 11/15/20 08/11/22 Unknown History budesonide-formoterol HFA 160 2 puff inhalation BID PRN 05/06/21 08/11/22 Unknown History mcg-4.5 mcg/actuation aerosol Shortness Of Breath inhaler (Symbicort) azelastine 137 mcg (0.1 %) nasal 1 spray intranasal BID 08/11/22 08/11/22 Unknown History spray aerosol dicyclomine 10 mg capsule 10 mg PO TID 08/11/22 08/11/22 Unknown History fluoxetine 10 mg capsule 10 mg PO DAILY 08/11/22 08/11/22 Unknown History hydroxyzine HCl 25 mg tablet 25 mg PO DAILY 08/11/22 08/11/22 Unknown History sertraline 25 mg tablet 50 mg PO DAILY 08/11/22 08/11/22 Unknown History verapamil 40 mg tablet 40 mg PO BID 08/11/22 08/11/22 Unknown History Exam Exam Date and Time: August 12, 2022 1321 Height,Weight and Vital Signs: Height 4 ft 11 in Weight 156 lb 8.451 oz Last Vital Signs Temp 97.7 F 08/12/22 10:32 Pulse 79 08/12/22 10:32 Resp 18 08/12/22 10:32 BP 107/62 08/12/22 10:32 Pulse Ox 100 08/12/22 10:32 O2 Del Method Room Air 08/12/22 10:32 Pertinent Lab Results Pertinent Lab Results: Laboratory Tests 08/11/22 08/12/22 08/12/22 18:40 00:36 06:42 WBC RBC Hgb Hct MCV MCH MCHC RDW Plt Count MPV Immature Gran % (Auto) Neut % (Auto) Lymph % (Auto) [place] % (Auto) Eos % (Auto) Baso % (Auto) Lymph # (Auto) [place] # (Auto) Eos # (Auto) Baso # (Auto) Abs Immat Gran (auto) Absolute Neuts (auto) Absolute Nucleated RBC Nucleated RBC % (auto) Neutrophils % (Manual) Band Neutrophils % Lymphocytes % (Manual) Monocytes % (Manual) Eosinophils % (Manual) Basophils % (Manual) Metamyelocytes % Abs Neuts (Manual) Lymphocytes # (Manual) Monocytes # (Manual) Eosinophils # (Manual) Basophils # (Manual) Metamyelocytes # Platelet Estimate Large Platelets Plt Morphology Comment RBC Morphology Sodium Potassium Chloride Carbon Dioxide Anion Gap BUN Creatinine 0.85 Estim Creat Clear Calc 67.8 Estimated GFR > 60 Random Glucose Lactic Acid 0.8 Calcium Random Vancomycin 14.4 L Blood Type Antibody Screen 08/12/22 08/12/22 08/12/22 06:42 06:42 08:10 WBC 9.0 RBC 3.72 L Hgb 10.7 L Hct 33.2 L MCV 89.2 MCH 28.8 MCHC 32.2 RDW 16.0 Plt Count 179 MPV 10.8 Immature Gran % (Auto) Cancelled Neut % (Auto) Cancelled Lymph % (Auto) Cancelled [place] % (Auto) Cancelled Eos % (Auto) Cancelled Baso % (Auto) Cancelled Lymph # (Auto) Cancelled [place] # (Auto) Cancelled Eos # (Auto) Cancelled Baso # (Auto) Cancelled Abs Immat Gran (auto) Cancelled Absolute Neuts (auto) Cancelled Absolute Nucleated RBC 0.000 Nucleated RBC % (auto) 0.0 Neutrophils % (Manual) 69 Band Neutrophils % 3 Lymphocytes % (Manual) 11 L Monocytes % (Manual) 11 Eosinophils % (Manual) 3 Basophils % (Manual) 1 Metamyelocytes % 2 Abs Neuts (Manual) 6.5 Lymphocytes # (Manual) 1.0 L Monocytes # (Manual) 1.0 Eosinophils # (Manual) 0.3 Basophils # (Manual) 0.1 Metamyelocytes # 0.2 Platelet Estimate NORMAL Large Platelets PRESENT Plt Morphology Comment NOTED RBC Morphology NORMAL Sodium 140 Potassium 4.0 Chloride 109 H Carbon Dioxide 25 Anion Gap 10 L BUN 15 Creatinine 0.87 Estim Creat Clear Calc 66.3 Estimated GFR > 60 Random Glucose 100 Lactic Acid Calcium 8.1 L Random Vancomycin Blood Type O Positive Antibody Screen NEGATIVE Airway Mallampati Class: II TM Dist: >3cm Neck ROM: Full Loose/Missing/Broken Teeth: No Assessment and Plan Assessment Anesthesia Assessment: Anesthesia Plan Discussed and Chart Reviewed Final Anesthetic Review Family History of Problems with Anesthesia: No History of Problems with Anesthesia: No NPO: Yes ASA Class: II Final Preanesthetic Review: No Changes in Pt Med Stat, Meds/Allgs Chart Reviewed, Consent Obtained/Reviewed and Anes Risks/Benef Reviewed Patient Risk: Intermediate Procedure Risk: Low Anesthetic Plan Anesthetic Plan: GA Disposition: Standard PACU
--- NOTE | 2022-08-12 14:40 | PM.OP ---
Brief Operative Note Date of Service: 08/12/22 Pre-op diagnosis: infected right TKA Post-op diagnosis: same Procedure: Revision TKA (liner only) with irrigation and debridement Implants: 15/05 Radha Surgeon: Bobby Cerrato MD Anesthesia: GETA Was an Precision Lens Grinder used for this Procedure?: Yes Precision Lens Grinder: Teresa Mejia Estimated blood loss (mL): 175 IV fluids (mL): 800 Pathology: other Condition: stable Disposition: PACU
[2022-08-12] MEDS: oxyCODONE HCl Immed Release 5 MG TABLET PO (15:39)
[2022-08-12] MEDS: Acetaminophen 1,000 MG/100 ML PIGGYBACK 400 MG IV (15:39)
--- NOTE | 2022-08-12 15:58 | MHC.CM.NN ---
pt still in or spoke with with whom she lives she had no servceis mary tripathi will follow for pt amina
--- NOTE | 2022-08-12 16:29 | PC.NURSE ---
pt returned from the OR A&OX4 R knee kevin wrap dressing CDI , good DP pulse palpable foot warm , routine post op care
[2022-08-12] MEDS: Dicyclomine HCl 10 MG CAPSULE PO ×2 (16:35→21:10)
[2022-08-12] MEDS: VerapamiL HCL 40 MG TABLET PO (21:20)
[2022-08-13] MEDS: Piperacillin Sodium/Tazobactam 3.375 GM in 0.9 % Sodium Chloride 50 ML IV (04:38)
[2022-08-13] MEDS: Morphine Sulfate 4 MG/ML CARTRIDGE IVPUSH ×3 (04:38→14:36)
[2022-08-13] MEDS: oxyCODONE HCl Immed Release 5 MG TABLET PO ×3 (05:43→22:15)
[2022-08-13] MEDS: Omeprazole 40 MG CAPSULE.DR PO (05:43)
--- NOTE | 2022-08-13 07:31 | PM.PNORT ---
Subjective Subjective Date of Service: 08/13/22 Principal diagnosis: s/p liner exchange right infected TKA Interval history: Pain overnight but no other events Physical Exam Vital Signs: Vital Signs: Last Vital Signs Temp 98 F 08/12/22 23:35 Pulse 82 08/12/22 23:35 Resp 16 08/12/22 23:35 BP 100/50 L 08/12/22 23:35 Pulse Ox 92 08/12/22 23:35 O2 Del Method Room Air 08/12/22 23:35 O2 Flow Rate 5 08/12/22 15:30 BMI result Body Mass Index 31.6 Extrem: Other: dressing clean dry and intact. Firing ehl/ta/gc Procedures Date of Service Date of Service: 08/13/22 Progress Note: A&P Assessment and plan (1) Infection associated with internal right knee prosthesis: Status: Acute Plan PT-WBAT PO pain control lovenox BID (hx of DVT) Awaiting culture results from [facility] aspiration done on Thursday Dispo planning Time Spent With Patient Time: Total time managing care of this patient today ____ minutes. Quality Stroke Does the patient have a stroke diagnosis?: No VTE Prior VTE?: Yes VTE Risk Level:: Medical - moderate - high VTE Device Contraindication: Treatment Not Indicated VTE Drug Contraindication: N/A - Med Ordered
[2022-08-13 07:37] LABS: Hematocrit 28.1 % (37.0-47.0); Hemoglobin 9.2 g/dl (12.0-16.0)
[2022-08-13 07:48] LABS: Vancomycin Random 12.6 mcg/mL (15-20)
[2022-08-13 07:50] LABS: Creatinine Clr Calc Pharmacy 68.7; Estimated Glomerular Filt Rate > 60
[2022-08-13 07:51] VITALS: BP 112/51; PULSE 91; RESP 18; TEMP 36.6; O2SAT 95
--- NOTE | 2022-08-13 07:52 | HO.POSTANES ---
Post Anesthesia Evaluation Post Anesthesia Evaluation Vital Signs: Vital Signs Temp Pulse Resp BP Pulse Ox O2 Del Method 08/13/22 07:51 97.8 F 91 18 112/51 L 95 Room Air 08/12/22 23:35 98 F 82 16 100/50 L 92 Room Air 08/12/22 21:09 77 17 110/62 Anesthesia: General LMA Mental Status: Awake Pain Control: Satisfactory Nausea/Vomiting: None Hydration: Adequate Anesthesia-Related Issues: No Anes. Related Issues
[2022-08-13] MEDS: FLUoxetine HCl 10 MG CAPSULE PO (08:05)
[2022-08-13] MEDS: Sertraline HCL 50 MG TABLET PO (08:05)
[2022-08-13] MEDS: VerapamiL HCL 40 MG TABLET PO ×2 (08:05→20:52)
[2022-08-13] MEDS: 0.9 % Sodium Chloride Flush 3 ML SYRINGE IVFLUSH ×3 (08:05→23:22)
[2022-08-13] MEDS: Dicyclomine HCl 10 MG CAPSULE PO ×3 (08:05→20:51)
[2022-08-13] MEDS: Atorvastatin Calcium 10 MG TABLET PO (08:06)
[2022-08-13] MEDS: hydrOXYzine HCL 25 MG TABLET PO (08:06)
--- NOTE | 2022-08-13 08:08 | HE.PHANOTE ---
Vancomycin Dosing Addendum Patients level came back at 12.6 this morning. Scr down to 0.84 from 0.87. Patient to continue current dose of 1000 mg Q12H. Rx[facility]ight predicts the trough will be at 16.9 with an AUC of 555 mg/L/hr.
[2022-08-13] MEDS: cefTRIAXone sodium 2 GM in 0.9 % Sodium Chloride 50 ML IV (08:47)
[2022-08-13] MEDS: Enoxaparin Sodium 40 MG/0.4 ML SYRINGE SUBCUT ×2 (08:47→20:52)
[2022-08-13] MEDS: vancomycin HCL 1,000 MG in 0.9 % Sodium Chloride 250 ML 270 MG IV (09:27)
--- NOTE | 2022-08-13 13:29 | P.PNIM_ITS ---
Subjective Subjective Date of Service: 08/14/22 Interval History: right knee pain, swelling? and fever Review of Systems s/p I&D by ortho yesterday last fever? was at midnight Physical Exam Vital Signs: Vital Signs: Last Vital Signs Temp 97.8 F 08/13/22 07:51 Pulse 91 08/13/22 07:51 Resp 18 08/13/22 07:51 BP 112/51 L 08/13/22 07:51 Pulse Ox 95 08/13/22 07:51 O2 Del Method Room Air 08/13/22 07:51 O2 Flow Rate 5 08/12/22 15:30 BMI result Body Mass Index 31.6 Appearance: Alert.? Oriented X3.? not in distress.? cvs: rrr, [id number] . res: clear to auscultation ,no rhonchii or wheezing abd: no rebound or guarding ,nt, bs present. ext pulses present , no cyanosis . right knee mild swelling/pain neuro: axo3 , nonfocal. Objective Data Active Medications Acetaminophen (Acetaminophen 325 Mg Tablet) 650 mg PO Q6H PRN PRN Reason: Fever Last Admin: 08/12/22 20:00 Dose: 650 mg Documented By: KASSY Albuterol Sulfate (Albuterol Sulfate 90 Mcg 8 Gm Inhaler) 2 puff INHALE Q6H PRN PRN Reason: Shortness Of Breath Or Wheezing Atorvastatin Calcium (Atorvastatin Calcium 10 Mg Tablet) 10 mg PO DAILY [facility] Last Admin: 08/13/22 08:06 Dose: 10 mg Documented By: JAZMYNE Azelastine HCl (Azelastine Hcl Nasal 137 Mcg/Ball 30 Ml) 1 spray NOSTRIL-B BID [facility] Last Admin: 08/13/22 08:53 Dose: Not Given Documented By: JAZMYNE Non-Admin Reason: Patient Refused Dicyclomine HCl (Dicyclomine Hcl 10 Mg Capsule) 10 mg PO TID [facility] Last Admin: 08/13/22 08:05 Dose: 10 mg Documented By: JAZMYNE Enoxaparin Sodium (Enoxaparin Sodium 40 Mg/0.4 Ml Syringe) 40 mg SUBCUT Q24H [facility] Last Admin: 08/13/22 08:47 Dose: 40 mg Documented By: JAZMYNE Fluoxetine HCl (Fluoxetine Hcl 10 Mg Capsule) 10 mg PO DAILY [facility] Last Admin: 08/13/22 08:05 Dose: 10 mg Documented By: JAZMYNE Fluticasone/Vilanterol (Fluticasone/Vilanterol 200/25 Blst.W.Dev) 1 puff INHALE RDAILY PRN PRN Reason: Shortness Of Breath Hydroxyzine HCl (Hydroxyzine Hcl 25 Mg Tablet) 25 mg PO DAILY [facility] Last Admin: 08/13/22 08:06 Dose: 25 mg Documented By: JAZMYNE Ceftriaxone Sodium 2 gm/ (Sodium Chloride) 50 mls @ 100 mls/hr IV Q24H [facility] Last Infusion: 08/13/22 09:36 Dose: 0 mls/hr Documented By: JAZMYNE Melatonin (Melatonin 3 Mg Tablet) 6 mg PO BEDTIME PRN PRN Reason: Insomnia Last Admin: 08/12/22 02:02 Dose: 6 mg Documented By: SLOANE Morphine Sulfate (Morphine Sulfate 4 Mg/Ml Cartridge) 4 mg IVPUSH Q4H PRN; Protocol PRN Reason: Pain, Severe (Pain Scale 7-10) Last Admin: 08/13/22 08:05 Dose: 4 mg Documented By: JAZMYNE Omeprazole (Omeprazole 40 Mg Capsule.Dr) 40 mg PO DAILY@0630 [facility] Last Admin: 08/13/22 05:43 Dose: 40 mg Documented By: DAVIDSON Oxycodone HCl (Oxycodone Hcl Immed Release 5 Mg Tablet) 5 mg PO Q4H PRN PRN Reason: Pain, Moderate(Pain Scale 4-6) Last Admin: 08/13/22 05:43 Dose: 5 mg Documented By: DAVIDSON Pharmacy Consult (Consult Rx Vancomycin Dosing) 1 each MISCELLANE DAILY PRN PRN Reason: Consult order Sertraline HCl (Sertraline Hcl 50 Mg Tablet) 50 mg PO DAILY [facility] Last Admin: 08/13/22 08:05 Dose: 50 mg Documented By: JAZMYNE Sodium Chloride (0.9 % Sodium Chloride Flush 3 Ml Syringe) 3 ml IVFLUSH QSHIFT [facility] Last Admin: 08/13/22 08:05 Dose: 3 ml Documented By: JAZMYNE Verapamil HCl (Verapamil Hcl 40 Mg Tablet) 40 mg PO BID [facility]; Protocol Last Admin: 08/13/22 08:05 Dose: 40 mg Documented By: JAZMYNE Labs 08/13/22 07:05 08/13/22 07:05 Labs: Laboratory Results - last 24 hr 08/13/22 08/13/22 07:05 07:05 Estim Creat Clear Calc 68.7 Estimated GFR > 60 Random Vancomycin 12.6 L Microbiology Microbiology Results: Microbiology 08/12/22 13:20 Gram Stain - Final Knee,Right Routine Culture - Preliminary Culture in progress. Anaerobic Culture - Preliminary Culture in progress. 08/11/22 18:34 Blood Culture - Preliminary Blood - Venous No growth after 24 hours. 08/11/22 18:34 Blood Culture - Preliminary Blood - Venous No growth after 24 hours. Assessment and Plan (1) Cellulitis: Status: Acute (2) Infection associated with internal right knee prosthesis: Status: Acute Plan 52-year-old female patient with a medical history that includes stage 3 chronic kidney disease (CKD), a previous pulmonary embolism (PE) and deep vein thrombosis (DVT), anxiety/depression, chronic chest pain, chronic pelvic pain, obesity following gastric bypass surgery, and a previous right total knee replacement (TKR) performed by Dr. Cerrato one year ago. She presented to the emergency department at [facility] with a three-day history of right knee pain, difficulty bearing weight, a fever of 101 degrees Fahrenheit, and redness. Laboratory tests conducted at [facility] revealed a white blood cell count (WBC) of 14, a C-reactive protein (CRP) level of 29, and a lactic acid level of 2. An ultrasound of her leg ruled Cellulitis of the right lower leg and concern of possible Septic prosthetic joint Received a dose Vanco around noon at [facility]. blood culture neg@24hrs ,knee aspirate culture -pending s/p i&D on 08/12/22 aspirate culture at [facility]-grew Streptococcus-group a beta-hemolytic. d/w ID-will change antibiotics to ceftriaxone on 08/13 and iv morphine bood cultures. Moderate Persistent ASthma with no acute exacerbation-continue inhalers Anxiety, Depression- continue home meds. HLD--Statin hx of dvt : she says she had dvt in 2016 ,was on AC ,taken off by pcp 1 years ago ( she was told no further need) DVT prohylaxis--Lovenox Need for inpatient: Cellulitis > 50% of leg and concern of septic right prosthetic knee joint and need IV Abx and possible need for surgical exploration Time Spent With Patient Time: Total time managing care of this patient today ____ minutes. Quality Stroke Does the patient have a stroke diagnosis?: No VTE Prior VTE?: Yes VTE Risk Level:: Medical - moderate - high VTE Device Contraindication: Treatment Not Indicated VTE Drug Contraindication: N/A - Med Ordered
[2022-08-13 15:31] VITALS: BP 106/58; PULSE 85; RESP 17; TEMP 37; O2SAT 94
--- NOTE | 2022-08-13 16:37 | W.PM.IDCN ---
History of Present Illness Data of Consult Service Date: 08/13/22 Requesting physician: Bobby Cerrato Primary Care Provider: Jackie Abdi MD HPI Reason for consult: septic right knee She presents initially to [facility] and had red hot and swollen right knee. She had right TKR in 04/[address] Cerrato. She felt well until three days ago and had temperature of 101 and pain. Aspirate of right knee joint showed Group A strep from 08/12. She was started on Zosyn and Vancomycin here. She had WBC of 14,000 on admission. Review of Systems Review of Systems: Yes all other systems are reviewed and are negative [facility] Past Medical History Medical History Asthma High cholesterol History of DVT (deep vein thrombosis) History of pulmonary embolism HTN (hypertension) Infection associated with internal right knee prosthesis Post-traumatic osteoarthritis of right knee Sleep apnea Family History Family history: reviewed and not pertinent Surgical History Surgical History H/O right knee surgery History of bunionectomy of both great toes History of History of laparoscopic cholecystectomy Hx of gastric bypass Social History Social History Household Members: Spouse Housing: House Are you a primary urgent care technician to a significant other at home: No Do you presently have visiting nurse or other home services: No Alcohol intake: never Patient Tobacco Use Status: Never used Tobacco service: No Current occupational status: unemployed Current occupation: rt handed. Meds Allergies Allergy/AdvReac Type Severity Reaction Status Date / Time No Known Allergies Allergy Verified 05/26/22 13:24 Active Medications: Current Medications Acetaminophen (Acetaminophen 325 Mg Tablet) 650 mg PO Q6H PRN PRN Reason: Fever Last Admin: 08/12/22 20:00 Dose: 650 mg Albuterol Sulfate (Albuterol Sulfate 90 Mcg 8 Gm Inhaler) 2 puff INHALE Q6H PRN PRN Reason: Shortness Of Breath Or Wheezing Atorvastatin Calcium (Atorvastatin Calcium 10 Mg Tablet) 10 mg PO DAILY [facility] Last Admin: 08/13/22 08:06 Dose: 10 mg Azelastine HCl (Azelastine Hcl Nasal 137 Mcg/[place] 30 Ml) 1 spray NOSTRIL-B BID [facility] Last Admin: 08/13/22 08:53 Dose: Not Given Dicyclomine HCl (Dicyclomine Hcl 10 Mg Capsule) 10 mg PO TID [facility] Last Admin: 08/13/22 14:37 Dose: 10 mg Enoxaparin Sodium (Enoxaparin Sodium 40 Mg/0.4 Ml Syringe) 40 mg SUBCUT BID [facility] Fluoxetine HCl (Fluoxetine Hcl 10 Mg Capsule) 10 mg PO DAILY [facility] Last Admin: 08/13/22 08:05 Dose: 10 mg Fluticasone/Vilanterol (Fluticasone/Vilanterol 200/25 Blst.W.Dev) 1 puff INHALE RDAILY PRN PRN Reason: Shortness Of Breath Hydroxyzine HCl (Hydroxyzine Hcl 25 Mg Tablet) 25 mg PO DAILY [facility] Last Admin: 08/13/22 08:06 Dose: 25 mg Ceftriaxone Sodium 2 gm/ (Sodium Chloride) 50 mls @ 100 mls/hr IV Q24H [facility] Last Infusion: 08/13/22 09:36 Dose: Infused Melatonin (Melatonin 3 Mg Tablet) 6 mg PO BEDTIME PRN PRN Reason: Insomnia Last Admin: 08/12/22 02:02 Dose: 6 mg Morphine Sulfate (Morphine Sulfate 4 Mg/Ml Cartridge) 4 mg IVPUSH Q4H PRN; Protocol PRN Reason: Pain, Severe (Pain Scale 7-10) Last Admin: 08/13/22 14:36 Dose: 4 mg Omeprazole (Omeprazole 40 Mg Capsule.Dr) 40 mg PO DAILY@0630 [facility] Last Admin: 08/13/22 05:43 Dose: 40 mg Oxycodone HCl (Oxycodone Hcl Immed Release 5 Mg Tablet) 5 mg PO Q4H PRN PRN Reason: Pain, Moderate(Pain Scale 4-6) Last Admin: 08/13/22 05:43 Dose: 5 mg Pharmacy Consult (Consult Rx Vancomycin Dosing) 1 each MISCELLANE DAILY PRN PRN Reason: Consult order Sertraline HCl (Sertraline Hcl 50 Mg Tablet) 50 mg PO DAILY [facility] Last Admin: 08/13/22 08:05 Dose: 50 mg Sodium Chloride (0.9 % Sodium Chloride Flush 3 Ml Syringe) 3 ml IVFLUSH QSHIFT [facility] Last Admin: 08/13/22 14:37 Dose: 3 ml Verapamil HCl (Verapamil Hcl 40 Mg Tablet) 40 mg PO BID [facility]; Protocol Last Admin: 08/13/22 08:05 Dose: 40 mg Home Medications Medication Instructions Recorded Confirmed Last Taken Type albuterol sulfate 90 mcg/actuation 2 inh inhalation Q6H PRN Shortness 11/15/20 08/11/22 Unknown History breath activated powder inhaler Of Breath Or Wheezing omeprazole 40 mg capsule,delayed 40 mg PO DAILY@0630 11/15/20 08/11/22 Unknown History release simvastatin 10 mg tablet 10 mg PO DAILY 11/15/20 08/11/22 Unknown History budesonide-formoterol HFA 160 2 puff inhalation BID PRN 05/06/21 08/11/22 Unknown History mcg-4.5 mcg/actuation aerosol Shortness Of Breath inhaler (Symbicort) azelastine 137 mcg (0.1 %) nasal 1 spray intranasal BID 08/11/22 08/11/22 Unknown History spray aerosol dicyclomine 10 mg capsule 10 mg PO TID 08/11/22 08/11/22 Unknown History fluoxetine 10 mg capsule 10 mg PO DAILY 08/11/22 08/11/22 Unknown History hydroxyzine HCl 25 mg tablet 25 mg PO DAILY 08/11/22 08/11/22 Unknown History sertraline 25 mg tablet 50 mg PO DAILY 08/11/22 08/11/22 Unknown History verapamil 40 mg tablet 40 mg PO BID 08/11/22 08/11/22 Unknown History Physical Exam Vital Signs: Vital Signs: Last Vital Signs Temp 98.6 F 08/13/22 15:31 Pulse 85 08/13/22 15:31 Resp 17 08/13/22 15:31 BP 106/58 L 08/13/22 15:31 Pulse Ox 94 08/13/22 15:31 O2 Del Method Room Air 08/13/22 15:31 O2 Flow Rate 5 08/12/22 15:30 BMI result Body Mass Index 31.6 Const: General: cooperative HEENT: Head: Yes normal to inspection Face and sinus: Yes normal facial exam Mouth: Normal oral and palatal mucosa present Teeth and gingiva: dentition normal Eyes: General: appearance normal, both eyes and all related structures Pupils: Equal, round and reactive pupils present Resp: Effort & Inspection: normal respiratory effort Cardio: Rate: regular rate Rhythm: regular rhythm GI: Palpation (GI): Soft to palpation and nontender : General: Yes no CVA tenderness Back/Spine/Pelvis: Back: no CVA tenderness Skin: General skin exam: no rashes or lesions noted Neuro: General: moves all extremities Cranial nerves: Yes Equal, round and reactive pupils present Extrem: Other: right swollen knee Psych: Appearance: grossly normal Results Labs 08/13/22 07:05 08/13/22 07:05 Labs: Short CBC 08/13/22 Range/Units 07:05 Hgb 9.2 L (12.0-16.0) g/dl Hct 28.1 L (37.0-47.0) % BMP 08/13/22 07:05 Creatinine 0.84 Microbiology Microbiology Results: Microbiology 08/12/22 13:20 Knee,Right Gram Stain - Final 08/12/22 13:20 Knee,Right Routine Culture - Preliminary Culture in progress. 08/12/22 13:20 Knee,Right Anaerobic Culture - Preliminary Culture in progress. 08/11/22 18:34 Blood - Venous Blood Culture - Preliminary No growth after 24 hours. 08/11/22 18:34 Blood - Venous Blood Culture - Preliminary No growth after 24 hours. Assessment and Plan (1) Infection associated with internal right knee prosthesis: Status: Acute She has Group A strep infection. She denies injury to joint. She denies strep throat or scarlet fever or other cause. (2) Cellulitis: Status: Acute Plan Ceftriaxone 2 g IV for six weeks and then consider po to follow one to two months. Debridement and washout per Orthopedics. Time Spent With Patient Time: Total time managing care of this patient today ____ minutes.
[2022-08-13] MEDS: Acetaminophen 325 MG TABLET 650 MG PO (20:51)
[2022-08-13] MEDS: Melatonin 3 MG TABLET 6 MG PO (20:52)
[2022-08-13 23:35] VITALS: BP 95/53; PULSE 83; RESP 16; TEMP 36.3; O2SAT 93
[2022-08-14 04:17] VITALS: BP 107/54; PULSE 82; RESP 16; TEMP 36.5; O2SAT 96
[2022-08-14] MEDS: Omeprazole 40 MG CAPSULE.DR PO (05:58)
[2022-08-14] MEDS: oxyCODONE HCl Immed Release 5 MG TABLET PO ×2 (06:02→17:03)
[2022-08-14] MEDS: cefTRIAXone sodium 2 GM in 0.9 % Sodium Chloride 50 ML IV (07:39)
[2022-08-14] MEDS: FLUoxetine HCl 10 MG CAPSULE PO (07:40)
[2022-08-14] MEDS: Dicyclomine HCl 10 MG CAPSULE PO ×3 (07:40→19:37)
[2022-08-14] MEDS: Morphine Sulfate 4 MG/ML CARTRIDGE IVPUSH ×3 (07:40→19:44)
[2022-08-14] MEDS: Sertraline HCL 50 MG TABLET PO (07:41)
[2022-08-14] MEDS: VerapamiL HCL 40 MG TABLET PO ×2 (07:41→19:37)
[2022-08-14] MEDS: Enoxaparin Sodium 40 MG/0.4 ML SYRINGE SUBCUT ×2 (07:41→19:37)
[2022-08-14] MEDS: Atorvastatin Calcium 10 MG TABLET PO (07:41)
[2022-08-14] MEDS: hydrOXYzine HCL 25 MG TABLET PO (07:41)
[2022-08-14 08:28] LABS: Creatinine Clr Calc Pharmacy 79.1; Estimated Glomerular Filt Rate > 60
[2022-08-14] MEDS: 0.9 % Sodium Chloride Flush 3 ML SYRINGE IVFLUSH ×2 (14:06→19:46)
--- NOTE | 2022-08-14 15:45 | P.PNIM_ITS ---
Subjective Subjective Date of Service: 08/14/22 Interval History: right knee pain, swelling? and fever Review of Systems symptoms seems similar to yesterday last fever? was at midnight Physical Exam Vital Signs: Vital Signs: Last Vital Signs Temp 97.7 F 08/14/22 04:17 Pulse 82 08/14/22 04:17 Resp 16 08/14/22 04:17 BP 107/54 L 08/14/22 04:17 Pulse Ox 96 08/14/22 04:17 O2 Del Method Room Air 08/14/22 04:17 O2 Flow Rate 5 08/12/22 15:30 BMI result Body Mass Index 31.6 Appearance: Alert.? Oriented X3.? not in distress.? cvs: rrr, [id number] . res: clear to auscultation ,no rhonchii or wheezing abd: no rebound or guarding ,nt, bs present. ext pulses present , no cyanosis . right knee mild swelling/pain neuro: axo3 , nonfocal. Objective Data Active Medications Acetaminophen (Acetaminophen 325 Mg Tablet) 650 mg PO Q6H PRN PRN Reason: Fever Last Admin: 08/13/22 20:51 Dose: 650 mg Documented By: ANABELLE Albuterol Sulfate (Albuterol Sulfate 90 Mcg 8 Gm Inhaler) 2 puff INHALE Q6H PRN PRN Reason: Shortness Of Breath Or Wheezing Atorvastatin Calcium (Atorvastatin Calcium 10 Mg Tablet) 10 mg PO DAILY [facility] Last Admin: 08/14/22 07:41 Dose: 10 mg Documented By: JAZMYNE Azelastine HCl (Azelastine Hcl Nasal 137 Mcg/[place] 30 Ml) 1 spray NOSTRIL-B BID [facility] Last Admin: 08/14/22 09:50 Dose: Not Given Documented By: JAZMYNE Non-Admin Reason: Patient Refused Dicyclomine HCl (Dicyclomine Hcl 10 Mg Capsule) 10 mg PO TID [facility] Last Admin: 08/14/22 14:06 Dose: 10 mg Documented By: JAZMYNE Enoxaparin Sodium (Enoxaparin Sodium 40 Mg/0.4 Ml Syringe) 40 mg SUBCUT BID [facility] Last Admin: 08/14/22 07:41 Dose: 40 mg Documented By: JAZMYNE Fluoxetine HCl (Fluoxetine Hcl 10 Mg Capsule) 10 mg PO DAILY [facility] Last Admin: 08/14/22 07:40 Dose: 10 mg Documented By: JAZMYNE Fluticasone/Vilanterol (Fluticasone/Vilanterol 200/25 Blst.W.Dev) 1 puff INHALE RDAILY PRN PRN Reason: Shortness Of Breath Hydroxyzine HCl (Hydroxyzine Hcl 25 Mg Tablet) 25 mg PO DAILY [facility] Last Admin: 08/14/22 07:41 Dose: 25 mg Documented By: JAZMYNE Ceftriaxone Sodium 2 gm/ (Sodium Chloride) 50 mls @ 100 mls/hr IV Q24H [facility] Last Infusion: 08/14/22 11:53 Dose: 0 mls/hr Documented By: JAZMYNE Melatonin (Melatonin 3 Mg Tablet) 6 mg PO BEDTIME PRN PRN Reason: Insomnia Last Admin: 08/13/22 20:52 Dose: 6 mg Documented By: ANABELLE Morphine Sulfate (Morphine Sulfate 4 Mg/Ml Cartridge) 4 mg IVPUSH Q4H PRN; Protocol PRN Reason: Pain, Severe (Pain Scale 7-10) Last Admin: 08/14/22 14:05 Dose: 4 mg Documented By: JAZMYNE Omeprazole (Omeprazole 40 Mg Capsule.Dr) 40 mg PO DAILY@0630 [facility] Last Admin: 08/14/22 05:58 Dose: 40 mg Documented By: ANABELLE Oxycodone HCl (Oxycodone Hcl Immed Release 5 Mg Tablet) 5 mg PO Q4H PRN PRN Reason: Pain, Moderate(Pain Scale 4-6) Last Admin: 08/14/22 06:02 Dose: 5 mg Documented By: ANABELLE Pharmacy Consult (Consult Rx Vancomycin Dosing) 1 each MISCELLANE DAILY PRN PRN Reason: Consult order Sertraline HCl (Sertraline Hcl 50 Mg Tablet) 50 mg PO DAILY [facility] Last Admin: 08/14/22 07:41 Dose: 50 mg Documented By: JAZMYNE Sodium Chloride (0.9 % Sodium Chloride Flush 3 Ml Syringe) 3 ml IVFLUSH QSHIFT [facility] Last Admin: 08/14/22 14:06 Dose: 3 ml Documented By: JAZMYNE Verapamil HCl (Verapamil Hcl 40 Mg Tablet) 40 mg PO BID [facility]; Protocol Last Admin: 05/18/23 07:41 Dose: 40 mg Documented By: JAZMYNE Labs 08/13/22 07:05 08/14/22 07:38 Labs: Laboratory Results - last 24 hr 08/14/22 08/14/22 07:38 07:38 Estim Creat Clear Calc 79.1 Estimated GFR > 60 Random Vancomycin 5.0 L Microbiology Microbiology Results: Microbiology 08/12/22 13:20 Gram Stain - Final Knee,Right Routine Culture - Preliminary Culture in progress. Anaerobic Culture - Preliminary Culture in progress. 08/11/22 18:34 Blood Culture - Preliminary Blood - Venous No growth after 48 hours. 08/11/22 18:34 Blood Culture - Preliminary Blood - Venous No growth after 48 hours. Assessment and Plan (1) Cellulitis: Status: Acute (2) Infection associated with internal right knee prosthesis: Status: Acute Plan 52-year-old female patient with a medical history that includes stage 3 chronic kidney disease (CKD), a previous pulmonary embolism (PE) and deep vein thrombosis (DVT), anxiety/depression, chronic chest pain, chronic pelvic pain, obesity following gastric bypass surgery, and a previous right total knee replacement (TKR) performed by Dr. Cerrato one year ago. She presented to the emergency department at [facility] with a three-day history of right knee pain, difficulty bearing weight, a fever of 101 degrees Fahrenheit, and redness. Laboratory tests conducted at [facility] revealed a white blood cell count (WBC) of 14, a C-reactive protein (CRP) level of 29, and a lactic acid level of 2. An ultrasound of her leg ruled Cellulitis of the right lower leg and concern of possible Septic prosthetic joint Received a dose Vanco around noon at [facility]. blood culture neg@24hrs ,knee aspirate culture -pending s/p i&D on 08/12/22 aspirate culture at [facility]-grew Streptococcus-group a beta-hemolytic susceptible to clindamycin,erythromycin,penicillin ,vancomycin. d/w ID-will change antibiotics to ceftriaxone on 08/13 and iv morphine ,bood cultures. picc line ( d/w with nephro also -ok to do) Moderate Persistent ASthma with no acute exacerbation-continue inhalers Anxiety, Depression- continue home meds. HLD--Statin hx of dvt : she says she had dvt in 2015 ,was on AC ,taken off by pcp 1 years ago ( she was told no further need) DVT prohylaxis--Lovenox Need for inpatient: Cellulitis > 50% of leg and concern of septic right prosthetic knee joint and need IV Abx and picc line Time Spent With Patient Time: Total time managing care of this patient today ____ minutes. Quality Stroke Does the patient have a stroke diagnosis?: No VTE Prior VTE?: Yes VTE Risk Level:: Medical - moderate - high VTE Device Contraindication: Treatment Not Indicated VTE Drug Contraindication: N/A - Med Ordered
--- NOTE | 2022-08-14 16:37 | P.PICC_ITS ---
PICC Line Insertion NPICC Diagnosis: Right infected total knee Indication: assisted antibiotics Pertinent Labs: Reviewed Technique: Following informed consent including risks, benefits and alternatives and using sterile technique including cap and mask, sterile gown, glove and drape, the right arm was prepped and draped in the usual sterile fashion of full barrier technique with CHG. Following completion of Roosevelt Protocol the skin and soft tissues were anesthetized with 1% Lidocaine plain. Using ultrasound guidance, the right basilic vein access was obtained in a single attempt by this RN. Over an 0.018 wire through peel-away sheath, a 4 palestinian single lumen PASV PICC line was positioned. Catheter length is 42 cm internal length, 0 cm ex ternal length, for a total trimmed length of 42 cm. The procedure was performed in S272. Tip verification was performed by Keenan Khoury with Anthony 3CG. Tip located in SVC. Ultrasound was used to document vein patency and for needle entry. A formal ultrasound picture and cardiac rhythm strip was recorded. Vascular Plastic Sheets Supervisor has released the line for use and it is currently dressed with a StatLock, Tegaderm, and CHG disc. Verification has been performed for blood return and line patency. Arm Circumference: 31 cm Equipment: Lanica Solo PICC Catheter Type: 4 palestinian single lumen PASV PICC Lot #: [id number]
[2022-08-14] MEDS: 0.9 % Sodium Chloride Flush 10 ML SYRINGE 5 ML IVFLUSH (19:51)
--- NOTE | 2022-08-14 20:35 | PM.PNORT ---
Subjective Subjective Date of Service: 08/14/22 Principal diagnosis: s/p liner exchange right infected TKA Interval history: POD 2 s/p Liner exchange R TKA no overnight events currently walking with PT Physical Exam Vital Signs: Vital Signs: Last Vital Signs Temp 97.7 F 08/14/22 04:17 Pulse 82 08/14/22 04:17 Resp 16 08/14/22 04:17 BP 107/54 L 08/14/22 04:17 Pulse Ox 96 08/14/22 04:17 O2 Del Method Room Air 08/14/22 04:17 O2 Flow Rate 5 08/12/22 15:30 BMI result Body Mass Index 31.6 Extrem: Other: dressing clean dry and intact. Firing ehl/ta/gc Procedures Date of Service Date of Service: 08/14/22 Progress Note: A&P Assessment and plan (1) Infection associated with internal right knee prosthesis: Status: Acute Plan PT-WBAT PO pain control lovenox BID (hx of DVT) Awaiting culture results from [facility] aspiration done on Thursday Dispo planning Time Spent With Patient Time: Total time managing care of this patient today ____ minutes. Quality Stroke Does the patient have a stroke diagnosis?: No VTE Prior VTE?: Yes VTE Risk Level:: Medical - moderate - high VTE Device Contraindication: Treatment Not Indicated VTE Drug Contraindication: N/A - Med Ordered
[2022-08-14 23:30] VITALS: BP 98/55; PULSE 93; RESP 17; TEMP 36.9; O2SAT 95
[2022-08-15] MEDS: oxyCODONE HCl Immed Release 5 MG TABLET PO ×3 (05:05→18:18)
[2022-08-15] MEDS: Omeprazole 40 MG CAPSULE.DR PO (05:06)
[2022-08-15 06:55] LABS: Creatinine Clr Calc Pharmacy 77.9; Estimated Glomerular Filt Rate > 60
[2022-08-15 07:37] VITALS: BP 113/55; PULSE 84; RESP 16; TEMP 37.1; O2SAT 95
[2022-08-15 07:38] LABS: MANUAL DIFF FLAG NO
[2022-08-15 07:55] LABS: Basophils Absolute Auto 0.1 X10*3/uL (0.0-0.2); Basophils Percent Auto 0.9 % (0-2); Eosinophils Absolute Auto 0.2 X10*3/uL (0.0-0.4); Eosinophils Percent Auto 2.7 % (0-4); Hematocrit 26.6 % (37.0-47.0); Hemoglobin 8.4 g/dl (12.0-16.0); Imm Gran Abs Auto 0.05 X10*3/uL (0.00-0.03); Imm Gran Pct Auto 0.9 % (0.0-0.4); Lymphocytes Absolute Auto 1.1 X10*3/uL (1.2-4.9); Mean Corpuscular HGB Conc 31.6 g/dl (31.0-35.0); Mean Corpuscular Hemoglobin 29.4 pg (27.0-33.0); Mean Platelet Volume 10.3 fL (9.4-12.3); Monocytes Absolute Auto 0.9 X10*3/uL (0.1-1.2); Monocytes Percent Auto 15.6 % (2-11); Neutrophils Absolute Auto 3.3 x10*3/uL (2.0-8.3); Neutrophils Percent Auto 59.9 % (45-73); Platelet Count 256 X10*3/uL (160-400); Red Blood Count 2.86 X10*6/uL (4.20-5.50); Red Cell Distribution Width 15.9 % (11.0-16.0); White Blood Count 5.6 X10*3/uL (4.8-10.8)
[2022-08-15 08:52] VITALS: BP 113/55; PULSE 84; O2SAT 95
--- NOTE | 2022-08-15 08:55 | PM.DS ---
DS: Providers Provider Date of Service: 08/15/22 Date of admission: 08/11/22 17:17 Primary care physician: Jackie Abdi MD Consults: 08/11/22 17:09 Consult to Orthopedics Routine Consulting Provider: [facility] Orthopedic Surgeons Reason for consultation: Septic knee Has provider been notified: Yes 08/11/22 18:11 Consult to Infectious Diseases Routine Consulting Provider: [facility] Infectious Disease Reason for consultation: Cellulitis of leg, concern for septic joint Has provider been notified: No DS: Diagnosis Discharge Diagnosis (1) Infection associated with internal right knee prosthesis: Status: Acute DS: Summary Hospital Course Hospital Course: The patient underwent a successful revision right total knee arthroplasty with liner exchange on 09/12/22, was transferred to PACU and then to the floor to recover. POD 1 s was started on Lovenox bid for DVT ppx, they also received Physical Therapy services twice a day. also had a 4 english single lumen PASV PICC placed for administration of IV abx for 6 weeks. Physical therapy should include gait training, ROM to tolerance and quad strength. He is WBAT. Knee brace should be worn with ambulation only to provide stability while walking. Ok to remove while at rest. Prior to discharge, his dressing was changed, incision clean dry and intact, new Aquacel dressing applied. The Aquacel dressing shoulder remain intact and dry at all times. Any concerns with the dressing, please contact orthopedic office. No showering. Infectious Disease recommendations: Plan Six weeks IV Ceftriaxone 2 g IV for six weeks ( start date 08/14/22) Picc Line / iv abx Orders: Ceftriaxone 2 g IV for six weeks Flush PICC line with 10 cc of normal saline 3 times a day Routine discharge flushing with 10 mL of normal saline after blood specimen withdrawal, medication administration or post transfusion flushing POST OP APPT WITH ORTHOPEDICS 08/28/22 14:00 [facility] Orthopedic Surgeons Alonzo Rivas PA-C Time Spent with Patient Time attestation: Total time managing care of this patient today ____ minutes. Discharge coordination time: Less than 30 minutes Quality: Safe Use of Opioids Does Pt have an Active Cancer Diagnosis on the Problem List?: No Quality: Stroke Does the patient have a stroke diagnosis?: No Physical Exam Vital Signs: Vital Signs: Last Vital Signs Temp 98.7 F 08/15/22 07:37 Pulse 84 08/15/22 07:37 Resp 16 08/15/22 07:37 BP 113/55 L 08/15/22 07:37 Pulse Ox 95 08/15/22 07:37 O2 Del Method Room Air 08/15/22 07:37 O2 Flow Rate 5 08/12/22 15:30 BMI result Body Mass Index 31.6 Const: General: cooperative, healthy appearing and no acute distress Resp: Effort & Inspection: normal respiratory effort and able to speak in complete sentences Cardio: Rate: regular rate Peripheral pulses: Peripheral pulses 2+ throughout GI: Palpation (GI): Soft to palpation Skin: General skin exam: no rashes or lesions noted Extrem: Other: incision clean dry and intact. [place] intact. No erythema or joint effusion. Calf supple nontender. Neurovascularly intact. DS: Data Data Completed and Pending Completed studies during hospitalization [Text1]: Procedures Replacement of Right Knee Joint with Synthetic Substitute, Cemented, Open Approach (05/14/21) Transfusion of Nonautologous Red Blood Cells into Peripheral Vein, Percutaneous Approach (05/14/21) Labs on day of discharge: Laboratory Results - last 24 hr 08/15/22 08/15/22 05:56 07:35 WBC 5.6 RBC 2.86 L D Hgb 8.4 L Hct 26.6 L MCV 93.0 MCH 29.4 MCHC 31.6 RDW 15.9 Plt Count 256 D MPV 10.3 Immature Gran % (Auto) 0.9 H Neut % (Auto) 59.9 Lymph % (Auto) 20.0 Phelps % (Auto) 15.6 H Eos % (Auto) 2.7 Baso % (Auto) 0.9 Lymph # (Auto) 1.1 L Phelps # (Auto) 0.9 Eos # (Auto) 0.2 Baso # (Auto) 0.1 Abs Immat Gran (auto) 0.05 H Absolute Neuts (auto) 3.3 Absolute Nucleated RBC 0.000 Nucleated RBC % (auto) 0.0 Creatinine 0.74 Estim Creat Clear Calc 77.9 Estimated GFR > 60 Preliminary micro results at discharge 08/12/22 13:20 Routine Culture - Preliminary Knee,Right Culture in progress. Anaerobic Culture - Preliminary Culture in progress. 08/11/22 18:34 Blood Culture - Preliminary Blood - Venous No growth after 48 hours. 08/11/22 18:34 Blood Culture - Preliminary Blood - Venous No growth after 48 hours. Discharge Plan Discharge Anticipated Discharge Date/Time: 08/15/22 09:03 Patient Disposition: Home Health Service Discharge Diagnosis: Reveision RT TKA Referrals: Brina Thompson MD [Physician] - 1 Week (follow up outpatient) Alonzo Rivas PA-C [Physician Machine Sewer] - 2 Weeks (08/28/22 2:00 [facility] Orthopedic Surgeons Alonzo Rivas PA-C) Jackie Abdi MD [Primary Care Provider] - 1 Week Discharge Medications: New oxycodone 5 mg Tablet 5 mg PO Q4H PRN (Reason: Pain, Moderate(Pain Scale 4-6)) 7 Days Qty: 42 0RF Rx Instructions: Partial Fill upon patient request. enoxaparin 40 mg/0.4 mL Syringe 40 mg subcut BID 2 Days Qty: 1.6 0RF ceftriaxone 2 gram Recon Soln 2 g IV Q24H Qty: 42 0RF Rx Instructions: end date 09/28/2022 Continued budesonide-formoterol [Symbicort] 160-4.5 mcg/actuation HFA aerosol inhaler 2 puff inhalation BID PRN (Reason: Shortness Of Breath) verapamil 40 mg tablet 40 mg PO BID fluoxetine 10 mg capsule 10 mg PO DAILY sertraline 25 mg tablet 50 mg PO DAILY hydroxyzine HCl 25 mg tablet 25 mg PO DAILY azelastine 137 mcg (0.1 %) aerosol,spray 1 spray intranasal BID dicyclomine 10 mg capsule 10 mg PO TID simvastatin 10 mg tablet 10 mg PO DAILY albuterol sulfate 90 mcg/actuation aerosol powdr breath activated 2 inh inhalation Q6H PRN (Reason: Shortness Of Breath Or Wheezing) omeprazole 40 mg capsule,delayed release(DR/EC) 40 mg PO DAILY@0630 (DME) [facility] Inst[facility] .MEDSUPPLY Qty: 1 0RF Rx Instructions: Folding Front wheeled walker Discharge Orders: Discharge Order (Routine); Ordered 08/16/22 Ordered By: Natasha Branham Diet: Advance to usual diet Activity on Discharge: Use cane or walker Stand Alone Forms: Patient Portal Discharge page Activity Restrictions/Additional Instructions: Patient had Ceftriaxone 2 g IV for six weeks and then consider po to follow one to two months -follow up with ortho and infectious disease outpatient. postop anemia -moniter cbc outpatient in 1week. Care Plan Goals: Restore function of joint Health Concerns: none Plan of Treatment: Physical Therapy for Total knee arthroplasty: WBAT, gait training, ROM 0-12, quad strength Limit stair climbing No showering, no tub bath-keep dressing clean, dry and intact No driving x6 weeks Continue Aspirin twice a day x 6 weeks Follow up with [facility] Orthopedics in 2 weeks: 08/28/22 14:00 [facility]opedic Surgeons Alonzo Rivas PA-C Flush PICC line with 10 cc of normal saline 3 times a day Routine discharge flushing with 10 mL of normal saline after blood specimen withdrawal, medication administration or post transfusion flushing Assessment: as above
[2022-08-15] MEDS: cefTRIAXone sodium 2 GM in 0.9 % Sodium Chloride 50 ML IV (09:50)
[2022-08-15] MEDS: 0.9 % Sodium Chloride Flush 10 ML SYRINGE 5 ML IVFLUSH ×3 (09:53→22:39)
[2022-08-15] MEDS: 0.9 % Sodium Chloride Flush 3 ML SYRINGE IVFLUSH ×3 (09:53→21:02)
[2022-08-15] MEDS: Enoxaparin Sodium 40 MG/0.4 ML SYRINGE SUBCUT ×2 (09:54→21:04)
[2022-08-15] MEDS: Dicyclomine HCl 10 MG CAPSULE PO ×3 (09:55→21:02)
[2022-08-15] MEDS: Atorvastatin Calcium 10 MG TABLET PO (09:55)
[2022-08-15] MEDS: VerapamiL HCL 40 MG TABLET PO ×2 (09:55→21:02)
[2022-08-15] MEDS: hydrOXYzine HCL 25 MG TABLET PO (09:55)
[2022-08-15] MEDS: Sertraline HCL 50 MG TABLET PO (09:56)
[2022-08-15] MEDS: FLUoxetine HCl 10 MG CAPSULE PO (09:56)
--- NOTE | 2022-08-15 12:38 | MHC.CM.PN ---
Plan is for patient to discharge with IV ABX. [facility] will come in this afternoon for education. [facility] is not able to start services until Thursday. Patient will be able to discharge tomorrow after dose of Ceftriaxone has infused. Patient spouse will provide transport home.
--- NOTE | 2022-08-15 13:08 | HO.PM.IMPN ---
Subjective Subjective Date of Service: 08/15/22 Interval History: right knee pain Review of Systems Knee swelling and erythema seems to improved significantly Known movement overnight Physical Exam Vital Signs: Vital Signs: Last Vital Signs Temp 98.7 F 08/15/22 07:37 Pulse 84 08/15/22 08:52 Resp 16 08/15/22 07:37 BP 113/55 L 08/15/22 08:52 Pulse Ox 95 08/15/22 08:52 O2 Del Method Room Air 08/15/22 07:37 O2 Flow Rate 5 08/12/22 15:30 BMI result Body Mass Index 31.6 Appearance: Alert.? Oriented X3.? not in distress.? cvs: rrr, [id number] . res: clear to auscultation ,no rhonchii or wheezing abd: no rebound or guarding ,nt, bs present. ext pulses present , no cyanosis . right knee-dressing clean dry and intact. moves all ext neuro: axo3 , nonfocal. Objective Data Active Medications Acetaminophen (Acetaminophen 325 Mg Tablet) 650 mg PO Q6H PRN PRN Reason: Fever Last Admin: 08/13/22 20:51 Dose: 650 mg Documented By: ANABELLE Albuterol Sulfate (Albuterol Sulfate 90 Mcg 8 Gm Inhaler) 2 puff INHALE Q6H PRN PRN Reason: Shortness Of Breath Or Wheezing Atorvastatin Calcium (Atorvastatin Calcium 10 Mg Tablet) 10 mg PO DAILY [facility] Last Admin: 08/15/22 09:55 Dose: 10 mg Documented By: NIRALI Azelastine HCl (Azelastine Hcl Nasal 137 Mcg/[place] 30 Ml) 1 spray NOSTRIL-B BID [facility] Last Admin: 08/15/22 10:02 Dose: Not Given Documented By: NIRALI Non-Admin Reason: Patient Refused Dicyclomine HCl (Dicyclomine Hcl 10 Mg Capsule) 10 mg PO TID [facility] Last Admin: 08/15/22 09:55 Dose: 10 mg Documented By: NIRALI Enoxaparin Sodium (Enoxaparin Sodium 40 Mg/0.4 Ml Syringe) 40 mg SUBCUT BID [facility] Last Admin: 08/15/22 09:54 Dose: 40 mg Documented By: NIRALI Fluoxetine HCl (Fluoxetine Hcl 10 Mg Capsule) 10 mg PO DAILY [facility] Last Admin: 08/15/22 09:56 Dose: 10 mg Documented By: NIRALI Fluticasone/Vilanterol (Fluticasone/Vilanterol 200/25 Blst.W.Dev) 1 puff INHALE RDAILY PRN PRN Reason: Shortness Of Breath Hydroxyzine HCl (Hydroxyzine Hcl 25 Mg Tablet) 25 mg PO DAILY [facility] Last Admin: 08/15/22 09:55 Dose: 25 mg Documented By: NIRALI Ceftriaxone Sodium 2 gm/ (Sodium Chloride) 50 mls @ 100 mls/hr IV Q24H [facility] Last Infusion: 08/15/22 11:00 Dose: 0 mls/hr Documented By: NIRALI Melatonin (Melatonin 3 Mg Tablet) 6 mg PO BEDTIME PRN PRN Reason: Insomnia Last Admin: 08/13/22 20:52 Dose: 6 mg Documented By: ANABELLE Morphine Sulfate (Morphine Sulfate 4 Mg/Ml Cartridge) 4 mg IVPUSH Q4H PRN; Protocol PRN Reason: Pain, Severe (Pain Scale 7-10) Last Admin: 08/14/22 19:44 Dose: 4 mg Documented By: MEERA Omeprazole (Omeprazole 40 Mg Capsule.Dr) 40 mg PO DAILY@0630 [facility] Last Admin: 08/15/22 05:06 Dose: 40 mg Documented By: MEERA Oxycodone HCl (Oxycodone Hcl Immed Release 5 Mg Tablet) 5 mg PO Q4H PRN PRN Reason: Pain, Moderate(Pain Scale 4-6) Last Admin: 08/15/22 05:05 Dose: 5 mg Documented By: MEERA Pharmacy Consult (Consult Rx Vancomycin Dosing) 1 each MISCELLANE DAILY PRN PRN Reason: Consult order Sertraline HCl (Sertraline Hcl 50 Mg Tablet) 50 mg PO DAILY [facility] Last Admin: 08/15/22 09:56 Dose: 50 mg Documented By: NIRALI Sodium Chloride (0.9 % Sodium Chloride Flush 3 Ml Syringe) 3 ml IVFLUSH QSHIFT [facility] Last Admin: 08/15/22 09:53 Dose: 3 ml Documented By: NIRALI Sodium Chloride (0.9 % Sodium Chloride Flush 10 Ml Syringe) 5 ml IVFLUSH TID [facility] Last Admin: 08/15/22 09:53 Dose: 5 ml Documented By: NIRALI Verapamil HCl (Verapamil Hcl 40 Mg Tablet) 40 mg PO BID [facility]; Protocol Last Admin: 08/15/22 09:55 Dose: 40 mg Documented By: NIRALI Labs 08/15/22 07:35 08/15/22 05:56 Labs: Laboratory Results - last 24 hr 08/15/22 08/15/22 05:56 07:35 MCV 93.0 MCH 29.4 MCHC 31.6 RDW 15.9 Plt Count 256 D MPV 10.3 Immature Gran % (Auto) 0.9 H Neut % (Auto) 59.9 Lymph % (Auto) 20.0 [place] % (Auto) 15.6 H Eos % (Auto) 2.7 Baso % (Auto) 0.9 Lymph # (Auto) 1.1 L [place] # (Auto) 0.9 Eos # (Auto) 0.2 Baso # (Auto) 0.1 Abs Immat Gran (auto) 0.05 H Absolute Neuts (auto) 3.3 Absolute Nucleated RBC 0.000 Nucleated RBC % (auto) 0.0 Estim Creat Clear Calc 77.9 Estimated GFR > 60 Microbiology Microbiology Results: Microbiology 08/12/22 13:20 Gram Stain - Final Knee,Right Routine Culture - Preliminary Streptococcus pyogenes (Grp A) Anaerobic Culture - Preliminary No growth to date. Assessment and Plan (1) Cellulitis: Status: Acute (2) Infection associated with internal right knee prosthesis: Status: Acute Plan 52-year-old female patient with a medical history that includes stage 3 chronic kidney disease (CKD), a previous pulmonary embolism (PE) and deep vein thrombosis (DVT), anxiety/depression, chronic chest pain, chronic pelvic pain, obesity following gastric bypass surgery, and a previous right total knee replacement (TKR) performed by Dr. Cerrato one year ago. She presented to the emergency department at [facility] [place] [place] with a three-day history of right knee pain, difficulty bearing weight, a fever of 101 degrees Fahrenheit, and redness. Laboratory tests conducted at [facility] [place] [place] revealed a white blood cell count (WBC) of 14, a C-reactive protein (CRP) level of 29, and a lactic acid level of 2. An ultrasound of her leg ruled Cellulitis of the right lower leg and concern of possible Septic prosthetic joint Received a dose Vanco around noon at [facility]. blood culture neg@24hrs ,knee aspirate culture -strep pyogenous (group A) s/p i&D on 08/12/22 aspirate culture at [facility]-grew Streptococcus-group a beta-hemolytic susceptible to clindamycin,erythromycin,penicillin ,vancomycin. d/w ID-will change antibiotics to ceftriaxone on 08/13 and iv morphine ,bood cultures neg@48hrs d/w Ortho-6 weeks ceftriaxone 2 gm daily and follow up outpatient with ortho and ID . Moderate Persistent ASthma with no acute exacerbation-continue inhalers Anxiety, Depression- continue home meds. HLD--Statin hx of dvt : she says she had dvt in 2015 ,was on AC ,taken off by pcp 1 years ago ( she was told no further need) DVT prohylaxis--Lovenox Need for inpatient: Cellulitis > 50% of leg and concern of septic right prosthetic knee joint and need IV Abx and picc line Time Spent With Patient Time: Total time managing care of this patient today ____ minutes. Quality Stroke Does the patient have a stroke diagnosis?: No VTE Prior VTE?: Yes VTE Risk Level:: Medical - moderate - high VTE Device Contraindication: Treatment Not Indicated VTE Drug Contraindication: N/A - Med Ordered
--- NOTE | 2022-08-15 13:13 | PM.EVENT ---
Event Note Date of Service: 08/16/22 Event Note: discharge summary 08/16/22 Discharge diagnosis:Infection associated with internal right knee prosthesis Please see discharge summary by ortho 08/25/22. please refers to that for further information. Time Spent With Patient Time: Total time managing care of this patient today ____ minutes.
[2022-08-15 16:00] VITALS: BP 90/60; PULSE 81; RESP 16; TEMP 36.4; O2SAT 95
[2022-08-15 16:29] VITALS: BP 105/70
[2022-08-15 20:42] VITALS: BP 111/55; PULSE 85; RESP 18; TEMP 37.1; O2SAT 95
[2022-08-15] MEDS: Morphine Sulfate 4 MG/ML CARTRIDGE IVPUSH (21:03)
[2022-08-15 23:53] VITALS: BP 104/55; PULSE 82; RESP 16; TEMP 36.7; O2SAT 95
[2022-08-16 03:34] VITALS: BP 105/50; PULSE 55; RESP 16; TEMP 36.9; O2SAT 94
[2022-08-16] MEDS: Morphine Sulfate 4 MG/ML CARTRIDGE IVPUSH ×2 (03:38→08:37)
[2022-08-16] MEDS: Acetaminophen 325 MG TABLET 650 MG PO (03:49)
[2022-08-16] MEDS: Omeprazole 40 MG CAPSULE.DR PO (06:10)
[2022-08-16 06:51] LABS: Creatinine Clr Calc Pharmacy 77.9; Estimated Glomerular Filt Rate > 60
[2022-08-16 07:08] VITALS: BP 100/54; PULSE 80; RESP 18; TEMP 36.5; O2SAT 96
[2022-08-16] MEDS: cefTRIAXone sodium 2 GM in 0.9 % Sodium Chloride 50 ML IV (08:37)
[2022-08-16] MEDS: 0.9 % Sodium Chloride Flush 3 ML SYRINGE IVFLUSH (08:38)
[2022-08-16] MEDS: VerapamiL HCL 40 MG TABLET PO (08:51)
[2022-08-16] MEDS: Sertraline HCL 50 MG TABLET PO (08:51)
[2022-08-16] MEDS: Dicyclomine HCl 10 MG CAPSULE PO (08:51)
[2022-08-16] MEDS: Atorvastatin Calcium 10 MG TABLET PO (08:51)
[2022-08-16] MEDS: FLUoxetine HCl 10 MG CAPSULE PO (08:51)
[2022-08-16] MEDS: Enoxaparin Sodium 40 MG/0.4 ML SYRINGE SUBCUT (08:51)
[2022-08-16] MEDS: hydrOXYzine HCL 25 MG TABLET PO (08:51)
--- NOTE | 2022-08-16 10:09 | MHC.CM.PN ---
Per MD request, met with patient who indicates she wants to go home. Notified MD; awaiting D/C orders/instructions. CM to follow.
--- NOTE | 2022-08-16 10:28 | W.MHC.F2F ---
Service Date Service Date: 08/16/22 Encounter Date of encounter: 08/16/22 Encounter: knee infection Reasons for Services Signs and symptoms assessed: knee pain or fevers or worsening knee sweling or erythema,please see ortho recomendation for knee in discharge instructions Reason for shelter: wound care, medication management, medication treatment and teach disease management Reason for physical therapy: home safety and mobility, therapeutic exercises, restore joint function, gait/transfer training, assess need for DME, ADL training, energy conservation and other MD Overseeing Care: Jackie Abdi Homebound: Leaving the home is medically contraindicated at this time without the asist of a device and/or another person due th the listed conditions above and below. Reason homebound: weakness related to hospital stay and other (right knee infection s/p I&d-Please see ortho instructions) Certification: Based on the above findings, I certify that this patient is confined to the home and needs intermittent shelter care, physical therapy and/or speech therapy, or continues to need occupational therapy. The patient is under my care, and I have initiated the establishment of the plan of care. The patient will be followed by a physician who will periodically review the plan of care. Time Spent With Patient Time: Total time managing care of this patient today ____ minutes.
--- NOTE | 2022-08-16 10:38 | MHC.CM.PN ---
order for home, home health services. Referral to [facility] previously made and [facility] indicated via allscripts they can start care Thursday (tomorrow). CM confirmed to [facility] via allscripts that patient is headed home today and requested that previsouly indicated SOC to be upheld for tomorrow.
--- NOTE | 2022-08-16 12:04 | PC.NURSE ---
Addendum entered by Thelma Mcguire RN 08/16/22 12:55: Spoke with patient at 1256 via phone, pt states she understands Lovenox schedule and will take as ordered, BID. Addendum entered by Thelma Mcguire RN 08/16/22 12:15: Called Pt contact number [phone] with no answer. Spoke with Primary Contact Ruthie to remind pt to take Lovenox injection BID, next dose tonight. Original Note: Pt DC instructions given verbally Pt and verbalize understanding, Pt declined snap attacher services. Pt DC home with PICC line for 6weeks Abx, [facility] services in place. Spoke with [facility] on phone this AM stated medication to be shipped today, Pt aware. DC home with Lovenox SQ injection for Hx of DVT, teaching offered to pt, pt declined states I have done this before . All questions answered at this time, DC home with , brought down via wheelchair.
--- NOTE | 2022-08-19 10:28 | W.PM.OPN ---
Operative Note Operative Note Date of Service: 08/12/22 Narrative: Date of Service: 08/12/22 Pre-op diagnosis: infected right TKA Post-op diagnosis: same Procedure: Revision TKA (liner only) with irrigation and debridement Implants: 15/05 TS Radha Surgeon: Bobby Cerrato MD Anesthesia: GETA Was an [employer] used for this Procedure?: Yes Super[employer]: Teresa Mejia Estimated blood loss (mL): 175 IV fluids (mL): 800 Pathology: other Condition: stable Disposition: PACU Indications: This is a 52 yo F who presented to an outside ED with ~ 3 day h/o right knee pain and swelling. She was aspirated in the [facility] ED and I spoke with the ortho resident. PMN's were 27k and 84%. SHe was transferred to [facility] ED, admitted and on evaluation she had knee pain and swelling. She was brought to the OR the following AM to undergo irrigation and debridement and PE exchange. Procedure in detail: Patient was brought to the operating room and placed supine on the surgical table. She was prepped and draped in standard sterile fashion and a time out was called to identify proper site, proper procedure and IV antibiotics per weight were administered. I did aspirate 60 ml of turbid appearing joint fluid from the knee prior to this. This was sent for culture. I then insuflated the tourniquet and began by making a midline incision to the retinaculum and performed a medial parapatellar arthrotomy. The patella was translated laterally and the knee was flexed up. THere was turebid appearing synovial fluid that was expressed on arthrotomy. The knee was flexed up and the PE was removed with an osteotome. There was no femoral or tibial componenet loosening. I proceeded, therefore to remove all non essential tissue from the joint with a bovie. A Werewolf cautery wand was used to maintain hemostasis. I debrided circumferentially around the tibia nad femur and patella. I then irrigated with 6L warm saline and re-draped the field with sterile instruments and drapes. A 16mm TS insert was then placed. The knee was taken through a range of motion and there was excellent range and balance. An iodine soak was performed. Closue with monofilament PDS and nylon was performed. Patient was then placed in sterile dressing and brought to recovery room in stable condition there were no known complications.
== END 2022-08-16 11:49 | disposition home health service (06) | DRG 320 ==
PROVIDERS: Internal Medicine; Orthopaedic Surgery; Physician Assistant; Admitting Provider Internal Medicine; PCP Student in an Organized Health Care Education/Training Program; Visit Provider Internal Medicine
PROC: 0SPC0JZ Removal of Synthetic Substitute from Right Knee Joint, Open Approach (ICD-10-PCS; CPT 27447; principal; 2022-08-12 11:20)
PROC: 02HV33Z Insertion of Infusion Device into Superior Vena Cava, Percutaneous Approach (ICD-10-PCS; principal; 2022-08-14 15:30)
DX: T84.53XA Infection and inflammatory reaction due to internal right knee prosthesis, initial encounter (principal); L03.115 Cellulitis of right lower limb; E78.00 Pure hypercholesterolemia, unspecified; Y79.2 Prosthetic and other implants, materials and accessory orthopedic devices associated with adverse incidents; F32.9 Major depressive disorder, single episode, unspecified; F43.10 Post-traumatic stress disorder, unspecified; B95.0 Streptococcus, group A, as the cause of diseases classified elsewhere; N18.30 Chronic kidney disease, stage 3 unspecified; J45.40 Moderate persistent asthma, uncomplicated; F41.9 Anxiety disorder, unspecified; Z86.711 Personal history of pulmonary embolism; Z86.718 Personal history of other venous thrombosis and embolism; Z98.84 Bariatric surgery status; Z79.899 Other long term (current) drug therapy
CPT/HCPCS: 36415; 36573; 73560; 80048; 80202; 82565; 83605; 85007; 85014; 85018; 85025; 85027; 86850; 86900; 86901; 87040; 87070; 87073; 87147; 87186; 87205; 93005; 97110; 97116; 97161; 97530; 97535; C1751; C1776; J0131; J0696; J1170; J1650; J2270; J2543; J3010; J3370; J3371

== ENCOUNTER 2022-08-20 13:16 | Outpatient (REF) | payer MEDICAID, SELFPAY ==
[2022-08-20 13:20] LABS: MANUAL DIFF FLAG NO
[2022-08-20 13:37] LABS: Basophils Absolute Auto 0.1 X10*3/uL (0.0-0.2); Basophils Percent Auto 0.6 % (0-2); Eosinophils Absolute Auto 0.3 X10*3/uL (0.0-0.4); Eosinophils Percent Auto 3.2 % (0-4); Hematocrit 27.2 % (37.0-47.0); Hemoglobin 8.5 g/dl (12.0-16.0); Imm Gran Abs Auto 0.08 X10*3/uL (0.00-0.03); Lymphocytes Absolute Auto 1.3 X10*3/uL (1.2-4.9); Lymphocytes Percent Auto 15.8 % (20-40); Mean Corpuscular HGB Conc 31.3 g/dl (31.0-35.0); Mean Corpuscular Hemoglobin 28.6 pg (27.0-33.0); Mean Corpuscular Volume 91.6 fL (80.0-98.0); Mean Platelet Volume 9.9 fL (9.4-12.3); Monocytes Absolute Auto 1.2 X10*3/uL (0.1-1.2); Monocytes Percent Auto 14.8 % (2-11); Neutrophils Absolute Auto 5.4 x10*3/uL (2.0-8.3); Neutrophils Percent Auto 64.6 % (45-73); Platelet Count 536 X10*3/uL (160-400); Red Blood Count 2.97 X10*6/uL (4.20-5.50); Red Cell Distribution Width 15.5 % (11.0-16.0); White Blood Count 8.3 X10*3/uL (4.8-10.8)
[2022-08-20 15:25] LABS: Anion Gap 17 (12-20); Blood Urea Nitrogen 12 mg/dL (9-16); Calcium 8.3 mg/dL (8.4-10.2); Carbon Dioxide 26 mmol/L (22-29); Chloride 106 mmol/L (96-108); Estimated Glomerular Filt Rate > 60; Glucose Random 64 mg/dL (60-115); Potassium 4.2 mmol/L (3.3-5.1); Sodium 145 mmol/L (135-145)
== END 2022-08-20 13:17 | disposition home or self-care (01) ==
LOC: HO.HVNA 13:16
PROVIDERS: Visit Provider Internal Medicine
DX: T84.53XA Infection and inflammatory reaction due to internal right knee prosthesis, initial encounter (principal)
CPT/HCPCS: 36415; 80048; 85025

== ENCOUNTER 2022-08-22 13:52 | Outpatient (REF) | payer MEDICAID, SELFPAY | END 2022-08-22 13:53 | disposition home or self-care (01) | LOC: HO.LAB 13:52 | PROVIDERS: PCP Student in an Organized Health Care Education/Training Program; Visit Provider Internal Medicine | DX: T84.53XA Infection and inflammatory reaction due to internal right knee prosthesis, initial encounter (principal); L03.90 Cellulitis, unspecified | CPT/HCPCS: 87040; 99212 ==

== ENCOUNTER 2022-08-27 11:46 | Outpatient (REF) | payer MEDICAID, SELFPAY ==
[2022-08-27 11:50] LABS: MANUAL DIFF FLAG NO
[2022-08-27 12:03] LABS: Basophils Absolute Auto 0.1 X10*3/uL (0.0-0.2); Basophils Percent Auto 1.3 % (0-2); Eosinophils Absolute Auto 0.2 X10*3/uL (0.0-0.4); Eosinophils Percent Auto 4.2 % (0-4); Hematocrit 25.7 % (37.0-47.0); Imm Gran Abs Auto 0.04 X10*3/uL (0.00-0.03); Imm Gran Pct Auto 0.8 % (0.0-0.4); Lymphocytes Absolute Auto 1.4 X10*3/uL (1.2-4.9); Lymphocytes Percent Auto 30.1 % (20-40); Mean Corpuscular HGB Conc 31.1 g/dl (31.0-35.0); Mean Corpuscular Hemoglobin 28.2 pg (27.0-33.0); Mean Corpuscular Volume 90.5 fL (80.0-98.0); Mean Platelet Volume 9.9 fL (9.4-12.3); Monocytes Absolute Auto 0.9 X10*3/uL (0.1-1.2); Monocytes Percent Auto 18.2 % (2-11); Neutrophils Absolute Auto 2.1 x10*3/uL (2.0-8.3); Neutrophils Percent Auto 45.4 % (45-73); Platelet Count 597 X10*3/uL (160-400); Red Blood Count 2.84 X10*6/uL (4.20-5.50); Red Cell Distribution Width 15.4 % (11.0-16.0); White Blood Count 4.7 X10*3/uL (4.8-10.8)
[2022-08-27 12:54] LABS: Anion Gap 13 (12-20); Blood Urea Nitrogen 9 mg/dL (9-16); Calcium 8.3 mg/dL (8.4-10.2); Carbon Dioxide 25 mmol/L (22-29); Chloride 110 mmol/L (96-108); Estimated Glomerular Filt Rate > 60; Glucose Random 75 mg/dL (60-115); Potassium 4.2 mmol/L (3.3-5.1); Sodium 144 mmol/L (135-145)
== END 2022-08-27 11:47 | disposition home or self-care (01) ==
LOC: HO.HVNA 11:46
PROVIDERS: Visit Provider Internal Medicine
DX: T84.53XA Infection and inflammatory reaction due to internal right knee prosthesis, initial encounter (principal); D62 Acute posthemorrhagic anemia; Z45.2 Encounter for adjustment and management of vascular access device
CPT/HCPCS: 36415; 80048; 85025

== ENCOUNTER → 2022-08-28 13:43 | Outpatient (BNVA) | payer MEDICAID, SELFPAY | PROVIDERS: PCP Student in an Organized Health Care Education/Training Program; Visit Provider Physician Assistant | DX: T84.53XD Infection and inflammatory reaction due to internal right knee prosthesis, subsequent encounter (principal); Z96.651 Presence of right artificial knee joint | CPT/HCPCS: 99212 ==

== ENCOUNTER 2022-08-30 17:42 | Emergency (ER) | payer MEDICAID, SELFPAY ==
--- NOTE | ~2022-08-30 | XR_ITS ---
EXAMINATION: XR KNEE, RIGHT CLINICAL INFORMATION: Surgery on the with fall onto right knee today COMPARISON: 08/12/2022 plain films TECHNIQUE: Four views of the right knee. FINDINGS: Small joint effusion and associated soft tissue swelling about the knee. The patient is status post right total knee arthroplasty. I do not appreciate any evidence for periprosthetic fracture or hardware failure. Alignment is anatomic. XR/XR knee RT 3V IMPRESSION: Status post right total knee arthroplasty. I do not appreciate any evidence for periprosthetic fracture or hardware failure.
--- NOTE | 2022-08-30 18:03 | ED_ITS ---
HPI - General Adult General Chief complaint: Extremity Injury, Lower Stated complaint: fall R knee pain, knee replacement on the 08/12 Time Seen by Provider: 08/30/22 18:54 Source: patient, RN notes reviewed and old records reviewed Mode of arrival: wheelchair Limitations: no limitations History of Present Illness HPI narrative: 52-year-old female presents for evaluation of right knee pain. Patient reports she had a knee replacement in April of last year. She had to have the knee replacement revised on August 14, about 3 weeks ago ?due to an infection. ? Patient states that today while trying to turn her right leg gave out even though she was using the walker and she fell onto the ground on her right side. She states that her right leg ?bent backwards. ? She has 8/10 pain to the right knee Denies hitting head or losing conscious Related Data Home Medications Medication Instructions Recorded Confirmed albuterol sulfate 90 mcg/actuation 2 inh inhalation Q6H PRN Shortness 11/15/20 08/11/22 breath activated powder inhaler Of Breath Or Wheezing omeprazole 40 mg capsule,delayed 40 mg PO DAILY@0630 11/15/20 08/11/22 release simvastatin 10 mg tablet 10 mg PO DAILY 11/15/20 08/11/22 budesonide-formoterol HFA 160 2 puff inhalation BID PRN 05/06/21 08/11/22 mcg-4.5 mcg/actuation aerosol Shortness Of Breath inhaler (Symbicort) azelastine 137 mcg (0.1 %) nasal 1 spray intranasal BID 08/11/22 08/11/22 spray aerosol dicyclomine 10 mg capsule 10 mg PO TID 08/11/22 08/11/22 fluoxetine 10 mg capsule 10 mg PO DAILY 08/11/22 08/11/22 hydroxyzine HCl 25 mg tablet 25 mg PO DAILY 08/11/22 08/11/22 sertraline 25 mg tablet 50 mg PO DAILY 08/11/22 08/11/22 verapamil 40 mg tablet 40 mg PO BID 08/11/22 08/11/22 Previous Rx's Medication Instructions Recorded walker #1 ea 05/09/21 ceftriaxone 2 gram solution for 2 g IV Q24H #42 ea 08/15/22 injection enoxaparin 40 mg/0.4 mL 40 mg (0.4 mL) subcut BID 2 days 08/15/22 subcutaneous syringe #1.6 mL enoxaparin 40 mg/0.4 mL 40 mg (0.4 mL) subcut BID 5 weeks 08/19/22 subcutaneous syringe (Lovenox) #28 mL oxycodone 5 mg tablet 5 mg PO Q4-6H PRN Pain, 08/28/22 Moderate(Pain Scale 4-6) 7 days #42 tabs Allergies Allergy/AdvReac Type Severity Reaction Status Date / Time No Known Allergies Allergy Verified 08/30/22 18:04 Review of Systems Constitutional: Constitutional: Reports as per HPI, Denies chills, Denies fatigue, Denies fever(s) and Denies headache(s) ENT: Denies headache(s) Cardiovascular: Cardiovascular: Denies chest pain and Denies dyspnea Respiratory: Respiratory: Denies cough and Denies dyspnea Gastrointestinal: Gastrointestinal: Denies abdominal pain, Denies constipation and Denies vomiting Genitourinary: Genitourinary: Denies dysuria Musculoskeletal: Musculoskeletal: Reports arthralgias, Reports joint swelling and Reports limited range of motion Neurologic: Denies headache(s) and Denies focal weakness Endocrine: Endocrine: Denies fatigue PMFSH Past Medical History Medical History Asthma Cellulitis High cholesterol History of DVT (deep vein thrombosis) History of pulmonary embolism HTN (hypertension) Infection associated with internal right knee prosthesis Post-traumatic osteoarthritis of right knee Sleep apnea Surgical History H/O right knee surgery History of bunionectomy of both great toes History of History of laparoscopic cholecystectomy Hx of gastric bypass Status post total knee replacement, right Social History Social History Household Members: Spouse Housing: House Are you a primary wound care coordinator to a significant other at home: No Do you presently have visiting nurse or other home services: No Alcohol intake: never Patient Tobacco Use Status: Never used Tobacco Advance Directives: No Advance Directives Information Provided: No service: No Current occupational status: unemployed Current occupation: rt handed. Physical Exam ED Vital Signs: Vital Signs - 24 hr 08/30/22 18:04 Temperature 97.9 F Pulse Rate 69 Respiratory Rate 18 Blood Pressure 106/61 Pulse Oximetry 99 Oxygen Delivery Method Room Air BMI result Body Mass Index 29.3 Const General: healthy appearing, comfortable, no acute distress, alert and awake Nutritional Appearance: well nourished Orientation/consciousness: patient oriented x3 HENMT Head: Yes normocephalic and Yes atraumatic Throat: Yes posterior oropharynx normal Eyes Eyelids: Yes eyelids normal Conjunctivae: conjunctivae normal Sclerae: sclerae normal Corneas: corneas normal Pupils: Equal, round and reactive pupils present EOM: EOMs intact bilaterally Neck Neck: Yes full ROM Resp Effort & Inspection: no audible wheezes Auscultation: clear to auscultation bilaterally Skin General skin exam: no rashes or lesions noted and elasticity normal Neuro General: patient oriented x3 Cranial nerves: Yes Equal, round and reactive pupils present and Yes Bilaterally intact EOM present Cognition (Neuro): normal cognition Extrem Other: Patient has surgical scar to the left knee without any surrounding erythema, purulence or increased warmth. She is able to flex and extend the right knee. There is some tenderness to palpation of the right knee. No visual or palpable deformities. Patient has mild tenderness of the right hip without deformity. I was able to stand the patient up with a 1 person assist with some knee pain but no significant hip Course Course Course Narrative: RME performed by Marianna Perez PA-C. Patient is a 52 year old assigned female at presenting to the emergency department with right knee pain after a fall. Imaging ordered. Patient placed back in the waiting room pending room availability and results. Medical Decision Making Medical Decision Making MDM Narrative: Patient had injury to the right knee were just prior to arrival. X-rays are negative for periprosthetic fracture or hardware failure per able to bear weight with 1 assist. Was for fracture. I did discuss getting an x-ray of the right hip to rule out fracture the patient declined his pain is mild the area. Patient reports that she still has oxycodone at home from her surgery. Will give her 1 time dose of morphine IM to control her acute pain Differential Diagnosis Hip pain Contusion Fracture Right knee fracture Right knee dislocation Independent Interpretation I performed an independent interpretation of an: Plain X-Ray Interpretation: Prosthetic of the right knee without obvious fracture Discharge Plan Discharge Clinical Impression: Acute pain of right knee Patient Disposition: Home, Self-Care Instructions: Knee Pain (ED) Additional Instructions: Your x-rays today did not show any evidence of fracture or hardware failure. Your given a 1 time dose of morphine injection You may restart taking her oxycodone tomorrow morning Follow-up with your orthopedic doctor Prescriptions: No Action enoxaparin [Lovenox] 40 mg/0.4 mL syringe 40 mg subcut BID 35 Days Qty: 28 0RF budesonide-formoterol [Symbicort] 160-4.5 mcg/actuation HFA aerosol inhaler 2 puff inhalation BID PRN (Reason: Shortness Of Breath) verapamil 40 mg tablet 40 mg PO BID fluoxetine 10 mg capsule 10 mg PO DAILY sertraline 25 mg tablet 50 mg PO DAILY hydroxyzine HCl 25 mg tablet 25 mg PO DAILY azelastine 137 mcg (0.1 %) aerosol,spray 1 spray intranasal BID dicyclomine 10 mg capsule 10 mg PO TID enoxaparin 40 mg/0.4 mL Syringe 40 mg subcut BID 2 Days Qty: 1.6 0RF ceftriaxone 2 gram Recon Soln 2 g IV Q24H Qty: 42 0RF Rx Instructions: end date 09/28/2022 simvastatin 10 mg tablet 10 mg PO DAILY albuterol sulfate 90 mcg/actuation aerosol powdr breath activated 2 inh inhalation Q6H PRN (Reason: Shortness Of Breath Or Wheezing) omeprazole 40 mg capsule,delayed release(DR/EC) 40 mg PO DAILY@0630 ([facility]) walker [facility] See Rx Instructions .MEDSUPPLY Qty: 1 0RF Rx Instructions: Folding Front wheeled walker oxycodone 5 mg tablet 5 mg PO Q4-6H PRN (Reason: Pain, Moderate(Pain Scale 4-6)) 7 Days Qty: 42 0RF Rx Instructions: Partial Fill upon patient request.
[2022-08-30 18:04] VITALS: BP 106/61; PULSE 69; RESP 18; TEMP 36.6; O2SAT 99; BMI 29.3
[2022-08-30] MEDS: Ondansetron ODT 4 MG TAB.RAPDIS TRANSLINGU (19:20)
[2022-08-30] MEDS: Morphine Sulfate 4 MG/ML CARTRIDGE IM (19:21)
== END 2022-08-30 19:34 | disposition home or self-care (01) ==
PROVIDERS: Emergency Provider Emergency Medicine; PCP Student in an Organized Health Care Education/Training Program
DX: M25.561 Pain in right knee (principal); Z79.899 Other long term (current) drug therapy
CPT/HCPCS: 73562; 96372; 99282; 99283; 99284; J2270

== ENCOUNTER 2022-09-03 13:37 | Outpatient (REF) | payer MEDICAID, SELFPAY ==
[2022-09-03 13:45] LABS: MANUAL DIFF FLAG NO
[2022-09-03 13:57] LABS: Basophils Percent Auto 0.8 % (0-2); Eosinophils Absolute Auto 0.3 X10*3/uL (0.0-0.4); Hematocrit 27.3 % (37.0-47.0); Hemoglobin 8.6 g/dl (12.0-16.0); Imm Gran Abs Auto 0.03 X10*3/uL (0.00-0.03); Imm Gran Pct Auto 0.6 % (0.0-0.4); Lymphocytes Absolute Auto 1.3 X10*3/uL (1.2-4.9); Lymphocytes Percent Auto 24.4 % (20-40); Mean Corpuscular HGB Conc 31.5 g/dl (31.0-35.0); Mean Corpuscular Hemoglobin 28.4 pg (27.0-33.0); Mean Corpuscular Volume 90.1 fL (80.0-98.0); Mean Platelet Volume 10.1 fL (9.4-12.3); Monocytes Absolute Auto 0.7 X10*3/uL (0.1-1.2); Monocytes Percent Auto 13.6 % (2-11); Neutrophils Absolute Auto 2.9 x10*3/uL (2.0-8.3); Neutrophils Percent Auto 54.6 % (45-73); Platelet Count 345 X10*3/uL (160-400); Red Blood Count 3.03 X10*6/uL (4.20-5.50); Red Cell Distribution Width 16.5 % (11.0-16.0); White Blood Count 5.3 X10*3/uL (4.8-10.8)
[2022-09-03 15:38] LABS: Anion Gap 16 (12-20); Blood Urea Nitrogen 9 mg/dL (9-16); Calcium 8.3 mg/dL (8.4-10.2); Carbon Dioxide 23 mmol/L (22-29); Chloride 107 mmol/L (96-108); Estimated Glomerular Filt Rate > 60; Glucose Random 68 mg/dL (60-115); Sodium 142 mmol/L (135-145)
== END 2022-09-03 13:38 | disposition home or self-care (01) ==
LOC: HO.LNP 13:37
PROVIDERS: Visit Provider Internal Medicine
DX: T84.53XA Infection and inflammatory reaction due to internal right knee prosthesis, initial encounter (principal)
CPT/HCPCS: 80048; 85025

== ENCOUNTER → 2022-09-04 09:49 | Outpatient (BNVA) | payer MEDICAID, SELFPAY | PROVIDERS: PCP Student in an Organized Health Care Education/Training Program; Visit Provider Orthopaedic Surgery | DX: Z47.1 Aftercare following joint replacement surgery (principal); T84.53XD Infection and inflammatory reaction due to internal right knee prosthesis, subsequent encounter; Z96.651 Presence of right artificial knee joint | CPT/HCPCS: 99212 ==

== ENCOUNTER 2022-09-10 13:43 | Outpatient (REF) | payer MEDICAID, SELFPAY ==
[2022-09-10 13:53] LABS: MANUAL DIFF FLAG NO
[2022-09-10 14:00] LABS: Basophils Absolute Auto 0.1 X10*3/uL (0.0-0.2); Basophils Percent Auto 0.9 % (0-2); Eosinophils Absolute Auto 0.3 X10*3/uL (0.0-0.4); Eosinophils Percent Auto 5.2 % (0-4); Hematocrit 30.6 % (37.0-47.0); Hemoglobin 9.7 g/dl (12.0-16.0); Imm Gran Abs Auto 0.03 X10*3/uL (0.00-0.03); Imm Gran Pct Auto 0.5 % (0.0-0.4); Lymphocytes Absolute Auto 1.5 X10*3/uL (1.2-4.9); Mean Corpuscular HGB Conc 31.7 g/dl (31.0-35.0); Mean Corpuscular Volume 91.3 fL (80.0-98.0); Mean Platelet Volume 10.3 fL (9.4-12.3); Monocytes Absolute Auto 0.7 X10*3/uL (0.1-1.2); Monocytes Percent Auto 11.2 % (2-11); Neutrophils Absolute Auto 3.3 x10*3/uL (2.0-8.3); Neutrophils Percent Auto 56.2 % (45-73); Platelet Count 285 X10*3/uL (160-400); Red Blood Count 3.35 X10*6/uL (4.20-5.50); Red Cell Distribution Width 16.5 % (11.0-16.0); White Blood Count 5.8 X10*3/uL (4.8-10.8)
[2022-09-10 15:30] LABS: Anion Gap 12 (12-20); Blood Urea Nitrogen 9 mg/dL (9-16); Calcium 8.3 mg/dL (8.4-10.2); Carbon Dioxide 25 mmol/L (22-29); Chloride 110 mmol/L (96-108); Estimated Glomerular Filt Rate > 60; Glucose Random 66 mg/dL (60-115); Potassium 3.5 mmol/L (3.3-5.1); Sodium 143 mmol/L (135-145)
== END 2022-09-10 13:44 | disposition home or self-care (01) ==
LOC: HO.HVNA 13:43
PROVIDERS: Visit Provider Internal Medicine
DX: D62 Acute posthemorrhagic anemia (principal); T84.53XD Infection and inflammatory reaction due to internal right knee prosthesis, subsequent encounter
CPT/HCPCS: 36415; 80048; 85025

== ENCOUNTER → 2022-09-25 10:25 | Outpatient (BNVA) | payer MEDICAID, SELFPAY | PROVIDERS: PCP Student in an Organized Health Care Education/Training Program; Visit Provider Orthopaedic Surgery | DX: Z47.1 Aftercare following joint replacement surgery (principal); T84.53XD Infection and inflammatory reaction due to internal right knee prosthesis, subsequent encounter; Z96.651 Presence of right artificial knee joint | CPT/HCPCS: 99212 ==

== ENCOUNTER 2022-09-25 14:43 | Outpatient (REF) | payer MEDICAID, SELFPAY ==
[2022-09-25 14:52] LABS: MANUAL DIFF FLAG NO
[2022-09-25 15:01] LABS: Basophils Absolute Auto 0.1 X10*3/uL (0.0-0.2); Basophils Percent Auto 0.9 % (0-2); Eosinophils Absolute Auto 0.3 X10*3/uL (0.0-0.4); Hematocrit 31.8 % (37.0-47.0); Hemoglobin 10.2 g/dl (12.0-16.0); Imm Gran Abs Auto 0.02 X10*3/uL (0.00-0.03); Imm Gran Pct Auto 0.4 % (0.0-0.4); Lymphocytes Absolute Auto 1.2 X10*3/uL (1.2-4.9); Lymphocytes Percent Auto 21.2 % (20-40); Mean Corpuscular HGB Conc 32.1 g/dl (31.0-35.0); Mean Corpuscular Hemoglobin 28.3 pg (27.0-33.0); Mean Corpuscular Volume 88.3 fL (80.0-98.0); Monocytes Absolute Auto 0.8 X10*3/uL (0.1-1.2); Monocytes Percent Auto 14.5 % (2-11); Neutrophils Absolute Auto 3.2 x10*3/uL (2.0-8.3); Platelet Count 304 X10*3/uL (160-400); Red Cell Distribution Width 14.9 % (11.0-16.0); White Blood Count 5.6 X10*3/uL (4.8-10.8)
[2022-09-25 15:48] LABS: Anion Gap 10 (12-20); Blood Urea Nitrogen 7 mg/dL (9-16); Calcium 8.5 mg/dL (8.4-10.2); Carbon Dioxide 27 mmol/L (22-29); Chloride 108 mmol/L (96-108); Estimated Glomerular Filt Rate > 60; Glucose Random 81 mg/dL (60-115); Potassium 3.2 mmol/L (3.3-5.1); Sodium 142 mmol/L (135-145)
== END 2022-09-25 14:44 | disposition home or self-care (01) ==
LOC: HO.HVNA 14:43
PROVIDERS: Visit Provider Internal Medicine
DX: T84.53XA Infection and inflammatory reaction due to internal right knee prosthesis, initial encounter (principal); Z45.2 Encounter for adjustment and management of vascular access device
CPT/HCPCS: 36415; 80048; 85025

== ENCOUNTER → 2022-09-26 13:31 | Outpatient (BNVA) | payer MEDICAID, SELFPAY | PROVIDERS: PCP Student in an Organized Health Care Education/Training Program; Visit Provider Internal Medicine | DX: T84.53XA Infection and inflammatory reaction due to internal right knee prosthesis, initial encounter (principal); M17.31 Unilateral post-traumatic osteoarthritis, right knee; Z96.651 Presence of right artificial knee joint | CPT/HCPCS: 99212 ==

== ENCOUNTER 2022-10-22 08:44 | Outpatient (REF) | payer MEDICAID, SELFPAY ==
--- NOTE | ~2022-10-22 | US_ITS ---
EXAMINATION: US ABDOMEN LIMITED CLINICAL INFORMATION: Right lower quadrant tenderness and fullness on exam. COMPARISON: No prior imaging available for comparison. TECHNIQUE: Real-time imaging of the right upper quadrant abdominal viscera. FINDINGS: PANCREAS: Normal. LIVER: The liver is normal in size. The liver contour is normal. Parenchymal echogenicity is normal. No focal hepatic lesion. There is no intrahepatic biliary duct dilatation seen. GALLBLADDER: Surgically absent. COMMON BILE DUCT: Normal in caliber measuring 0.9 cm in diameter. RIGHT KIDNEY: No hydronephrosis or focal parenchymal lesions. The kidney measures 9.1 cm in maximum dimension. Nonobstructing stones measuring up to 4 mm in the lower pole. FREE FLUID: None. US/US abdomen limited IMPRESSION: 1. Nonobstructing right renal stones measuring up to 4 mm in the lower pole. No hydronephrosis. 2. Status post cholecystectomy. No intra or extrahepatic biliary duct dilatation.
== END 2022-10-22 08:45 | disposition home or self-care (01) ==
LOC: HO.US 08:44
PROVIDERS: Visit Provider General Practice
DX: R10.31 Right lower quadrant pain (principal)
CPT/HCPCS: 76705

== ENCOUNTER 2022-10-30 12:47 | Outpatient (AMB) | payer MEDICAID, SELFPAY ==
--- NOTE | 2022-10-30 12:54 | MHC.OFFVIS ---
Intake Intake Visit Reasons: PO- RT revision TKA 08/13/22 NE Intake Note: Sade is a 52 year old female who presents today for a post operative appointment, s/p Right TKA Revision 08/13/22. Patient reports that she is doing well has continued pain & swelling. She contines to do home exercise program. Reports that she has a small scab on the knee that is not healing. Allergies No Known Allergies Allergy (Verified 10/30/22 12:54) HPI PO- RT revision TKA 08/13/22 NE HPI Details Sade is a 52 year old woman who presents ~3 months S/P right TKA liner replacement, due to infection. Her recovery was complicated by a fall on 08/30/22. She continues to remain on Abx, though has transitioned to PO Abx and discontinued her IV Abx. Her next appointment with Dr. Thompson is on 11/26/22. She complains of ongoing pain and swelling in her knee, along with some increased redness. She says her pain has worsened since her last appointment. She finds climbing into and out of her tub or a car is painful. She denies any numbness, tingling, or burning in her leg. She continues to perform her home exercises PFSH Medical History Asthma Cellulitis High cholesterol History of DVT (deep vein thrombosis) History of pulmonary embolism HTN (hypertension) Infection associated with internal right knee prosthesis Post-traumatic osteoarthritis of right knee Sleep apnea Surgical History H/O right knee surgery History of bunionectomy of both great toes History of History of laparoscopic cholecystectomy Hx of gastric bypass Status post total knee replacement, right Social History Household Members: Spouse Housing: House Are you a primary home care specialist to a significant other at home: No Do you presently have visiting nurse or other home services: No Alcohol intake: never Patient Tobacco Use Status: Never used Tobacco service: No Current occupational status: unemployed Current occupation: rt handed. Review of Systems Const All systems reviewed & are unremarkable except as noted in HPI and below Physical Exam Const General: no acute distress and alert Orientation/consciousness: patient oriented x3 Neuro General: patient oriented x3 Extrem Other: Right Knee: lateral joint line erythema ttp lateral and anterior com[partment moderate warmth mild effusion Psych Appearance: grossly normal Affect: normal affect Attitude: cooperative Results Reviewed Results Reviewed: I personally reviewed relevant radiographs. Right knee S/P liner exchange in expected post operative position with no hardware complications or evidence of loosening Assessment & Plan Assessment & Plan (1) Status post revision of total replacement of right knee: Comment: Strep infection knee Now healing Code(s): Z96.651 - Presence of right artificial knee joint Plan: This is a 52 year old woman S/p right rTKA, DOS: 08/13/22, and S/P fall, DOI: 08/30/22. She has some increased pain and erythema since her last appointment. She has discontinues her IV Abx and is on PO Abx at this time. Her next appointment with Dr. Thompson is on 11/26/22. She appears infected still. I will plan forresection arthroplasty. Prior to surgery will stop abx and aspirate knee. I explained this surgery to Sade including the risks, benefits, and recovery timeline. (2) Infection associated with internal right knee prosthesis: Comment: She is feeling better Code(s): T84.53XA - Infection and inflammatory reaction due to internal right knee prosthesis, initial encounter Plan Scribed for Bobby Cerrato MD by Yusef Campos, medical assistant internal medicine, on [ ] at [ ], EST. Orders: Orders XR knee RT 2V Today M25.569 - Pain in unspecified knee XR knee standing BI Today M25.569 - Pain in unspecified knee Coding Level of Care Code Est Pt Level 4 (77199) Diagnoses Status post revision of total replacement of right knee Z96.651 Infection associated with internal right knee prosthesis T84.53XA
== END 2022-10-30 13:17 | disposition home or self-care (01) ==
PROVIDERS: PCP Student in an Organized Health Care Education/Training Program; Visit Provider Orthopaedic Surgery
DX: Z47.1 Aftercare following joint replacement surgery (principal); Z96.651 Presence of right artificial knee joint; T84.53XA Infection and inflammatory reaction due to internal right knee prosthesis, initial encounter
CPT/HCPCS: 99024; 99214

== ENCOUNTER 2022-10-30 12:47 | Outpatient (REF) | payer MEDICAID, SELFPAY ==
--- NOTE | ~2022-10-30 | XR_ITS ---
EXAMINATION: XR knee standing BI, XR knee RT 2V CLINICAL INFORMATION: Pain COMPARISON: 08/30/2022 TECHNIQUE: AP standing view of both knees. Lateral and sunrise views of the right knee. FINDINGS: Right knee: There is a total right knee arthroplasty with connector between the femoral and tibial components. Appropriate alignment of the femoral component with the tibial and patellar components. No periprosthetic lucency or fracture. No definite joint effusion. The soft tissues appear unremarkable. Left knee: On this single view there is no fracture or subluxation. Mild narrowing of the medial compartment. XR/XR knee standing BI IMPRESSION: 1. Total right knee arthroplasty without evidence of failure. 2. Mild narrowing of the medial compartment of the left knee.
--- NOTE | ~2022-10-30 | XR_ITS ---
EXAMINATION: XR knee standing BI, XR knee RT 2V CLINICAL INFORMATION: Pain COMPARISON: 08/30/2022 TECHNIQUE: AP standing view of both knees. Lateral and sunrise views of the right knee. FINDINGS: Right knee: There is a total right knee arthroplasty with connector between the femoral and tibial components. Appropriate alignment of the femoral component with the tibial and patellar components. No periprosthetic lucency or fracture. No definite joint effusion. The soft tissues appear unremarkable. Left knee: On this single view there is no fracture or subluxation. Mild narrowing of the medial compartment. XR/XR knee RT 2V IMPRESSION: 1. Total right knee arthroplasty without evidence of failure. 2. Mild narrowing of the medial compartment of the left knee.
== END 2022-10-30 12:48 | disposition home or self-care (01) ==
LOC: HO.HOSX 12:47
PROVIDERS: PCP Student in an Organized Health Care Education/Training Program; Visit Provider Orthopaedic Surgery
DX: T84.53XA Infection and inflammatory reaction due to internal right knee prosthesis, initial encounter (principal); Z96.651 Presence of right artificial knee joint
CPT/HCPCS: 73560; 73565; 99212

== ENCOUNTER 2022-11-11 15:36 | Outpatient (REF) | payer MEDICAID, SELFPAY | END 2022-11-11 15:37 | disposition home or self-care (01) | LOC: HO.XRAY 15:36 | PROVIDERS: PCP Student in an Organized Health Care Education/Training Program; Visit Provider General Practice | DX: Z13.89 Encounter for screening for other disorder (principal) ==

== ENCOUNTER 2022-11-14 14:12 | Outpatient (REF) | payer MEDICAID, SELFPAY ==
--- NOTE | ~2022-11-14 | XR_ITS ---
EXAMINATION: XR THORACOLUMBAR SPINE CLINICAL INFORMATION: Mid back pain COMPARISON: None TECHNIQUE: 3 views of the thoracic spine. Visualization limited due to overlying soft tissues. FINDINGS: Surgical clips in the right upper quadrant of the abdomen. Surgical material in the left upper quadrant of the abdomen. S-shaped thoracolumbar scoliosis. Moderate multilevel degenerative changes with hypertrophic change in the thoracic spine. XR/XR thoracic spine 2V IMPRESSION: S-shaped thoracolumbar scoliosis with moderate multilevel degenerative changes. Additional imaging with CT scan or MRI should be considered for better visualization as these modalities are much more sensitive for detection of fracture or other underlying pathology.
== END 2022-11-14 14:13 | disposition home or self-care (01) ==
LOC: HO.XRAY 14:12
PROVIDERS: PCP Student in an Organized Health Care Education/Training Program; Visit Provider General Practice
DX: M54.9 Dorsalgia, unspecified (principal)
CPT/HCPCS: 72070

== ENCOUNTER 2022-11-17 14:44 | Outpatient (AMB) | payer MEDICAID, SELFPAY ==
--- NOTE | 2022-11-17 14:52 | A.OFFVIS_ITS ---
Intake Vital Signs 11/17/22 14:53 Height 4 ft 11 in Weight 144 lb BMI 29.1 Intake Visit Reasons: Synovasure aspiration Intake Note: Sade is a 52 year old female who presents today for a follow up appointment, s/p Right TKA Revision 08/13/22. States pain is currently a 09/06. States she has not seen any drainage from her scab/wound and states its getting better. Allergies No Known Allergies Allergy (Verified 10/30/22 12:54) HPI Synovasure aspiration HPI Details Sade is a 52 year old woman who presents ~3 months S/P right TKA liner replacement, due to infection. Her recovery was complicated by a fall on 08/30/22. She continues to remain on Abx, though has transitioned to PO Abx and discontinued her IV Abx. Her next appointment with Dr. Thompson is on 11/26/22. She denies any drainage from her wound and continues to have pain. She presents for a synovasure aspiration. [facility] Medical History Asthma Cellulitis High cholesterol History of DVT (deep vein thrombosis) History of pulmonary embolism HTN (hypertension) Infection associated with internal right knee prosthesis Post-traumatic osteoarthritis of right knee Sleep apnea Surgical History H/O right knee surgery History of bunionectomy of both great toes History of History of laparoscopic cholecystectomy Hx of gastric bypass Status post total knee replacement, right Social History Household Members: Spouse Housing: House Are you a primary career consultant to a significant other at home: No Do you presently have visiting nurse or other home services: No Alcohol intake: never Patient Tobacco Use Status: Never used Tobacco service: No Current occupational status: unemployed Current occupation: rt handed. Review of Systems Const All systems reviewed & are unremarkable except as noted in HPI and below Physical Exam Vital Signs: BMI result Body Mass Index 29.1 Const General: no acute distress and alert Orientation/consciousness: patient oriented x3 HEENT Head: Yes normocephalic and Yes atraumatic Eyes EOM: EOMs intact bilaterally Resp Effort & Inspection: normal respiratory effort and able to speak in complete sentences Cardio Jugular venous distension: no JVD Skin General skin exam: turgor normal Rashes: no rashes Neuro General: patient oriented x3 Extrem Other: Right Knee: Lateral joint line erythema TTP lateral and anterior compartment Moderate warmth Mild effusion Psych Appearance: grossly normal Affect: normal affect Attitude: cooperative Office Procedures Joint Injection/Drain Joint Injection/Drain Details: Aspirated 20 ml serosanguinous fluid Primary Site: right knee Prep: site was prepped using aseptic technique Approach Used: lateral parapatellar Procedure: The patient tolerated the procedure well Coding 72550 - Large joint Procedure code (CPT) selection complete Assessment & Plan Assessment & Plan (1) Status post revision of total replacement of right knee: Code(s): Z96.651 - Presence of right artificial knee joint Plan: This is a 52 year old woman S/P right rTKA, DOS: 08/13/22, and S/P fall, DOI: 08/30/22. She has some increased pain and erythema since her last appointment and continues to take PO Abx at this time. Her next appointment with Dr. Thompson is on 11/26/22. She appears infected still. I aspirated her right knee for Synovasure testing. I will contact her to discuss the results of her aspiration. (2) Infection associated with internal right knee prosthesis: Comment: She is feeling better Code(s): T84.53XA - Infection and inflammatory reaction due to internal right knee prosthesis, initial encounter Plan Scribed for Bobby Cerrato MD by Yusef Campos, biomedical engineering internship, on 11/17/22 at 3:10 PM, EST. Coding Level of Care Code Global (31661) Diagnoses Status post revision of total replacement of right knee Z96.651 Infection associated with internal right knee prosthesis T84.53XA CPT Codes Coding - Large joint: 58734 - Large joint ([id number])
[2022-11-17 14:53] VITALS: BMI 29.1
== END 2022-11-17 15:49 | disposition home or self-care (01) ==
PROVIDERS: PCP Student in an Organized Health Care Education/Training Program; Visit Provider Orthopaedic Surgery
DX: Z47.1 Aftercare following joint replacement surgery (principal); Z96.651 Presence of right artificial knee joint; T84.53XA Infection and inflammatory reaction due to internal right knee prosthesis, initial encounter
CPT/HCPCS: 20610; 99213

== ENCOUNTER → 2022-11-17 14:44 | Outpatient (BNVA) | payer MEDICAID, SELFPAY | PROVIDERS: PCP Student in an Organized Health Care Education/Training Program; Visit Provider Orthopaedic Surgery | DX: M17.31 Unilateral post-traumatic osteoarthritis, right knee (principal); T84.53XA Infection and inflammatory reaction due to internal right knee prosthesis, initial encounter; Z96.651 Presence of right artificial knee joint | CPT/HCPCS: 20610 ==

== ENCOUNTER 2022-11-18 11:42 | Outpatient (REF) | payer MEDICAID, SELFPAY ==
--- NOTE | ~2022-11-18 | MR_ITS ---
EXAMINATION: MR BRAIN WITHOUT AND WITH CONTRAST MR VENOGRAPHY OF THE HEAD WITHOUT AND WITH CONTRAST CLINICAL INFORMATION: 52-year-old with chronic daily headaches without aura. Evaluate for venous thrombosis. COMPARISON: None available. TECHNIQUE: Multiplanar, multisequence MRI of the brain was obtained before and after the intravenous administration of 7.5 mL Gadavist. Precontrast 2-D [id number] and contrast-enhanced time-resolved 3-D MR angiography was performed utilizing the above contrast. MRI FINDINGS: Brain Volume: Within normal limits within the limitations of qualitative assessment. Structural: Incidental 6 mm benign pineal cyst noted. There is 3 mm of cerebellar tonsillar ectopia at the foramen magnum, which is a normal variant. Brain and Meninges: DWI sequence demonstrates no restricted diffusion to suggest acute or subacute cerebral ischemia. Accounting for motion artifact on the axial images, the brain is normal in morphology and signal intensity. Gradient refocused imaging demonstrates no abnormal susceptibility-weighted signal loss to suggest hemorrhage, hemosiderin staining or abnormal mineralization. No intracranial mass lesions, extra-axial fluid collections, pathologic intracranial enhancement, space-occupying process, or mass effect. Ventricles and Subarachnoid Spaces: The ventricular system and subarachnoid spaces are within normal range; there is no hydrocephalus. Orbital Structures: The visualized orbital structures are grossly unremarkable within the limitations of the study. Vascular: Signal voids are noted in the visualized major intracranial vessels. There is an arachnoid granulation protruding into the left transverse sinus, which is an anatomic variant. Osseous Structures, Sinuses/Mastoids, Extracranial Soft Tissues: Osseous marrow signal intensity appears grossly within normal limits. Minor mucosal thickening in the ethmoid complex on the right. Visualized extracranial soft tissue structures are unremarkable. MRV FINDINGS: On the 2-D [id number] portion of the study, there is flow-related enhancement within the superior sagittal and straight sinuses with good flow-related enhancement in the right transverse and sigmoid sinus. There is somewhat more diminutive flow-related enhancement within the left transverse and sigmoid sinuses, likely reflecting developmental asymmetry. On the contrast-enhanced portion of the study, there is contrast enhancement within the transverse and sigmoid sinuses bilaterally with a small filling defect in the left transverse sinus consistent with the above-described arachnoid granulation. The left transverse sinus is nondominant compared to the right. There is good contrast enhancement within the straight sinus and superior sagittal sinus. There is a small nonspecific filling defect in the right transverse sinus, which is a nonspecific finding but likely reflects an arachnoid granulation. There is contrast enhancement within the visualized major overlying cortical veins. MR/MR venography head wo/w con IMPRESSION: 1. No acute intracranial process. Normal-appearing brain parenchyma and ventricular system. 2. 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 3. No evidence for major dural venous sinus occlusion or significant focal stenosis.
--- NOTE | ~2022-11-18 | MR_ITS ---
EXAMINATION: MR BRAIN WITHOUT AND WITH CONTRAST MR VENOGRAPHY OF THE HEAD WITHOUT AND WITH CONTRAST CLINICAL INFORMATION: 52-year-old with chronic daily headaches without aura. Evaluate for venous thrombosis. COMPARISON: None available. TECHNIQUE: Multiplanar, multisequence MRI of the brain was obtained before and after the intravenous administration of 7.5 mL Gadavist. Precontrast 2-D [id number] and contrast-enhanced time-resolved 3-D MR angiography was performed utilizing the above contrast. MRI FINDINGS: Brain Volume: Within normal limits within the limitations of qualitative assessment. Structural: Incidental 6 mm benign pineal cyst noted. There is 3 mm of cerebellar tonsillar ectopia at the foramen magnum, which is a normal variant. Brain and Meninges: DWI sequence demonstrates no restricted diffusion to suggest acute or subacute cerebral ischemia. Accounting for motion artifact on the axial images, the brain is normal in morphology and signal intensity. Gradient refocused imaging demonstrates no abnormal susceptibility-weighted signal loss to suggest hemorrhage, hemosiderin staining or abnormal mineralization. No intracranial mass lesions, extra-axial fluid collections, pathologic intracranial enhancement, space-occupying process, or mass effect. Ventricles and Subarachnoid Spaces: The ventricular system and subarachnoid spaces are within normal range; there is no hydrocephalus. Orbital Structures: The visualized orbital structures are grossly unremarkable within the limitations of the study. Vascular: Signal voids are noted in the visualized major intracranial vessels. There is an arachnoid granulation protruding into the left transverse sinus, which is an anatomic variant. Osseous Structures, Sinuses/Mastoids, Extracranial Soft Tissues: Osseous marrow signal intensity appears grossly within normal limits. Minor mucosal thickening in the ethmoid complex on the right. Visualized extracranial soft tissue structures are unremarkable. MRV FINDINGS: On the 2-D [id number]-rv-eggcsv portion of the study, there is flow-related enhancement within the superior sagittal and straight sinuses with good flow-related enhancement in the right transverse and sigmoid sinus. There is somewhat more diminutive flow-related enhancement within the left transverse and sigmoid sinuses, likely reflecting developmental asymmetry. On the contrast-enhanced portion of the study, there is contrast enhancement within the transverse and sigmoid sinuses bilaterally with a small filling defect in the left transverse sinus consistent with the above-described arachnoid granulation. The left transverse sinus is nondominant compared to the right. There is good contrast enhancement within the straight sinus and superior sagittal sinus. There is a small nonspecific filling defect in the right transverse sinus, which is a nonspecific finding but likely reflects an arachnoid granulation. There is contrast enhancement within the visualized major overlying cortical veins. MR/MR head/brain wo/w con IMPRESSION: 1. No acute intracranial process. Normal-appearing brain parenchyma and ventricular system. 2. 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 3. No evidence for major dural venous sinus occlusion or significant focal stenosis.
[2022-11-18] MEDS: gadobutroL 7.5 ML VIAL IVPUSH (13:08)
== END 2022-11-18 11:43 | disposition home or self-care (01) ==
LOC: HO.MRI 11:42
PROVIDERS: PCP Student in an Organized Health Care Education/Training Program; Visit Provider Psychiatry & Neurology Neurology
DX: G43.009 Migraine without aura, not intractable, without status migrainosus (principal)
CPT/HCPCS: 70546; 70553; A9585

== ENCOUNTER 2022-11-26 13:18 | Outpatient (AMB) | payer MEDICAID, SELFPAY ==
[2022-11-26 14:13] VITALS: BP 130/80; PULSE 85; O2SAT 99; BMI 30.7
--- NOTE | 2022-11-26 14:13 | MHC.OFFVIS ---
Intake Vital Signs 11/26/22 14:13 Height 4 ft 11 in Weight 152 lb BMI 30.7 BP 130/80 Blood Pressure Location Lt brachial Position Sitting Pulse 85 Pulse Source Pulse Oximeter Pulse Oximetry (%) 99 Intake Visit Reasons: 2 mth F/U, Picc Line Allergies No Known Allergies Allergy (Verified 11/26/22 14:17) HPI 2 mth F/U, Picc Line HPI Details She is here for followup Group A strep infection right knee. She has started but then stopped taking PCN V due to Orthopedic eval and fluid was taken. Fluid has neutrophil elastase negative and screen for P acnes,enterococcus,consuelo negative. There apparently is no Group A strep screen here. Cultures are negative. She reports televisit with Dr Cerrato on 11/28. REPLACED BY [facility] Medical History Asthma Cellulitis High cholesterol History of DVT (deep vein thrombosis) History of pulmonary embolism HTN (hypertension) Infection associated with internal right knee prosthesis Post-traumatic osteoarthritis of right knee Sleep apnea Surgical History H/O right knee surgery History of bunionectomy of both great toes History of History of laparoscopic cholecystectomy Hx of gastric bypass Status post total knee replacement, right Social History Household Members: Spouse Housing: House Are you a primary lawn care professional to a significant other at home: No Do you presently have visiting nurse or other home services: No Alcohol intake: never Patient Tobacco Use Status: Never used Tobacco service: No Current occupational status: unemployed Current occupation: rt handed. Review of Systems Const Details: All systems reviewed & are unremarkable except as noted in HPI and below Physical Exam Vital Signs: Last Vital Signs Pulse 85 11/26/22 14:13 BP 130/80 11/26/22 14:13 Pulse Ox 99 11/26/22 14:13 BMI result Body Mass Index 30.7 Assessment & Plan Assessment & Plan (1) Status post revision of total replacement of right knee: Code(s): Z96.651 - Presence of right artificial knee joint (2) Infection associated with internal right knee prosthesis: Comment: She reports more swelling and pain. She has no culture positive here. Code(s): T84.53XA - Infection and inflammatory reaction due to internal right knee prosthesis, initial encounter Plan: If no further surgical plans on 11/28 Orthopedic visit would restart PCN V 250 mg po bid for now. See in six months. Medications: Refilled penicillin V potassium 250 mg PO BID 60 tabs 5RF 30 days Coding Level of Care Code Est Pt Level 3 (63392) Diagnoses Status post revision of total replacement of right knee Z96.651 Infection associated with internal right knee prosthesis T84.53XA
== END 2022-11-26 14:04 | disposition home or self-care (01) ==
LOC: HO.HID 13:18
PROVIDERS: PCP Student in an Organized Health Care Education/Training Program; Visit Provider Internal Medicine
DX: Z96.651 Presence of right artificial knee joint (principal); T84.53XA Infection and inflammatory reaction due to internal right knee prosthesis, initial encounter
CPT/HCPCS: 99213

== ENCOUNTER → 2022-11-26 13:18 | Outpatient (BNVA) | payer MEDICAID, SELFPAY | PROVIDERS: PCP Student in an Organized Health Care Education/Training Program; Visit Provider Internal Medicine | DX: T84.53XA Infection and inflammatory reaction due to internal right knee prosthesis, initial encounter (principal); Z96.651 Presence of right artificial knee joint | CPT/HCPCS: 99212 ==

== ENCOUNTER 2022-11-28 12:04 | Outpatient (AMB) | payer MEDICAID, SELFPAY ==
--- NOTE | 2022-11-28 12:04 | MHC.OFFVIS ---
Intake Intake Visit Reasons: OV/ tele Synovasure results [facility]Nee Intake Note: Sade is a 52 year old female who presents today for a TELEHEALTH visit to discuss Synovasure results. Was seen with infectious disease who states If no further surgical plans on 11/28 Orthopedic visit would restart PCN V 250 mg po bid for now. Allergies No Known Allergies Allergy (Verified 11/28/22 12:05) PFSH Medical History Asthma Cellulitis High cholesterol History of DVT (deep vein thrombosis) History of pulmonary embolism HTN (hypertension) Infection associated with internal right knee prosthesis Post-traumatic osteoarthritis of right knee Sleep apnea Surgical History H/O right knee surgery History of bunionectomy of both great toes History of History of laparoscopic cholecystectomy Hx of gastric bypass Status post total knee replacement, right Social History Household Members: Spouse Housing: House Are you a primary specialist wound care to a significant other at home: No Do you presently have visiting nurse or other home services: No Alcohol intake: never Patient Tobacco Use Status: Never used Tobacco service: No Current occupational status: unemployed Current occupation: rt handed. Results Reviewed Results Reviewed: Synovasure results are negative for infection Assessment & Plan Assessment & Plan (1) Infection associated with internal right knee prosthesis: Code(s): T84.53XA - Infection and inflammatory reaction due to internal right knee prosthesis, initial encounter Plan: No evidence of infection after liner exchange. ID recommending continued PO abx. No data to support such an approach. (2) Status post revision of total replacement of right knee: Code(s): Z96.651 - Presence of right artificial knee joint Telehealth Telehealth Location of provider rendering services: practice address Location of patient: address on file Patient Identification confirmed using: Name, : Yes Telehealth method: voice only Patient verbally consented to treatment: Yes Patient verbally consented to billing insurance company: Yes Patient informed of any privacy concerns related to visit: Yes Coding Level of Care Code Tele New Pt Level 4 (12196) Diagnoses Infection associated with internal right knee prosthesis T84.53XA Status post revision of total replacement of right knee Z96.651
== END 2022-11-28 12:28 | disposition home or self-care (01) ==
LOC: HO.HOS 12:04
PROVIDERS: PCP Student in an Organized Health Care Education/Training Program; Visit Provider Orthopaedic Surgery
DX: T84.53XA Infection and inflammatory reaction due to internal right knee prosthesis, initial encounter (principal); Z96.651 Presence of right artificial knee joint
CPT/HCPCS: 99213

== ENCOUNTER → 2022-11-28 12:04 | Outpatient (BNVA) | payer MEDICAID, SELFPAY | PROVIDERS: PCP Student in an Organized Health Care Education/Training Program; Visit Provider Orthopaedic Surgery ==

== ENCOUNTER 2022-12-22 10:18 | Outpatient (AMB) | payer MEDICAID, SELFPAY ==
[2022-12-22 10:21] VITALS: BP 117/64; PULSE 77; RESP 14; O2SAT 97; BMI 29.3
--- NOTE | 2022-12-22 10:21 | MHC.OFFVIS ---
Intake Vital Signs 12/22/22 10:21 Height 4 ft 11 in Weight 145 lb BMI 29.3 BP 117/64 Blood Pressure Location Lt brachial Position Sitting Respiration 14 Pulse 77 Pulse Source Pulse Oximeter Pulse Oximetry (%) 97 Oxygen Delivery Method Room Air Intake Visit Reasons: geniculate trial Allergies No Known Allergies Allergy (Verified 12/22/22 10:22) Medication List - Last Reconciled 12/22/22 by Marianna Woody LPN albuterol sulfate 90 mcg/actuation 2 inhalations inhalation Q6H PRN azelastine 1 spray intranasal BID budesonide-formoterol 160-4.5 mcg/actuation (Symbicort) 2 puffs inhalation BID PRN celecoxib (Celebrex) 200 mg PO BID 30 days dicyclomine 10 mg PO TID fluoxetine 10 mg PO DAILY hydroxyzine HCl 25 mg PO DAILY meloxicam 7.5 mg PO DAILY nortriptyline 25 mg PO DAILY omeprazole 40 mg PO DAILY@0630 penicillin V potassium 250 mg PO BID 30 days sertraline 50 mg PO DAILY simvastatin 10 mg PO DAILY verapamil 40 mg PO BID walker Folding Front wheeled walker HPI geniculate trial HPI Details 52-year-old female who presents today to the office for chronic knee pain management. The patient had right TKA on 05/14/21, which got infected and then she underwent repeat right TKA revision on 08/13/22 with the spacer placement. She is currently taking oral antibiotics. Recent analysis of synovial aspirate revealed no persistent signs of infection. She states that her pain is worse when standing while washing dishes. She notices pressure and feels like ?her leg is going to pop out? while standing and has to sit down. [facility] Medical History Asthma Cellulitis High cholesterol History of DVT (deep vein thrombosis) History of pulmonary embolism HTN (hypertension) Infection associated with internal right knee prosthesis Post-traumatic osteoarthritis of right knee Sleep apnea Surgical History H/O right knee surgery History of bunionectomy of both great toes History of History of laparoscopic cholecystectomy Hx of gastric bypass Status post total knee replacement, right Social History Household Members: Spouse Housing: House Are you a primary healthcare representative to a significant other at home: No Do you presently have visiting nurse or other home services: No Alcohol intake: never Patient Tobacco Use Status: Never used Tobacco service: No Current occupational status: unemployed Current occupation: rt handed. Review of Systems Const All systems reviewed & are unremarkable except as noted in HPI and below Physical Exam Vital Signs: Last Vital Signs Pulse 77 12/22/22 10:21 Resp 14 12/22/22 10:21 BP 117/64 12/22/22 10:21 Pulse Ox 97 12/22/22 10:21 Oxygen Delivery Method Room Air 12/22/22 10:21 BMI result Body Mass Index 29.3 General: Appears afebrile. Alert and oriented. Mood and affect appropriate. Follows and participates in conversation appropriately. Respiratory effort is unlabored. Able to transition from sit to stand unassisted. Ambulates with bilaterally normal heel strike and toe off. No particular tenderness to palpation around the knee joint, no swelling or effusions. Normal temperature to touch. Results Reviewed Results Reviewed: No imaging is available for review. Assessment & Plan Assessment & Plan (1) Chronic knee pain after total replacement of knee joint: Code(s): M25.569 - Pain in unspecified knee; G89.29 - Other chronic pain; Z96.659 - Presence of unspecified artificial knee joint Plan Discussed temporary and permanent nerve stimulator options for chronic knee pain. Patient is interested in proceeding with a temporary nerve stimulator trial at this time. Will schedule her for right temporary saphenous nerve stimulator placement. Discussed the risks and benefits of the procedure with the patient in detail. All questions were answered. The patient is on board with the plan. Justification for interventional therapy: ? Patient with average pain > 6/10 ? Patient has exhausted other modalities, including total knee replacement Scribed for Dr. Lopez by Earl Cantu, back office medical assistant, on 12/22/2022. I, Dr. Lopez, have personally reviewed and agree with the information entered by the scribe. Coding Level of Care Code New Pt Level 3 (83123) Diagnoses Chronic knee pain after total replacement of knee joint M25.569; G89.29; Z96.659
== END 2022-12-22 11:01 | disposition home or self-care (01) ==
PROVIDERS: PCP Student in an Organized Health Care Education/Training Program; Visit Provider Internal Medicine
DX: G89.29 Other chronic pain (principal); M25.561 Pain in right knee; Z96.651 Presence of right artificial knee joint
CPT/HCPCS: 99203

== ENCOUNTER → 2022-12-22 10:18 | Outpatient (BNVA) | payer MEDICAID, SELFPAY | PROVIDERS: PCP Student in an Organized Health Care Education/Training Program; Visit Provider Internal Medicine ==

== ENCOUNTER 2023-01-16 11:44 | Outpatient (REF) | payer MEDICAID, SELFPAY ==
[2023-01-16 14:31] LABS: MANUAL DIFF FLAG NO
[2023-01-16 14:44] LABS: Basophils Percent Auto 0.7 % (0-2); Eosinophils Absolute Auto 0.1 X10*3/uL (0.0-0.4); Hematocrit 38.2 % (37.0-47.0); Hemoglobin 12.3 g/dl (12.0-16.0); Imm Gran Abs Auto 0.01 X10*3/uL (0.00-0.03); Imm Gran Pct Auto 0.2 % (0.0-0.4); Lymphocytes Absolute Auto 1.3 X10*3/uL (1.2-4.9); Lymphocytes Percent Auto 23.3 % (20-40); Mean Corpuscular HGB Conc 32.2 g/dl (31.0-35.0); Mean Corpuscular Hemoglobin 27.8 pg (27.0-33.0); Mean Corpuscular Volume 86.4 fL (80.0-98.0); Mean Platelet Volume 10.6 fL (9.4-12.3); Monocytes Absolute Auto 0.8 X10*3/uL (0.1-1.2); Monocytes Percent Auto 13.8 % (2-11); Neutrophils Absolute Auto 3.4 x10*3/uL (2.0-8.3); Platelet Count 314 X10*3/uL (160-400); Red Blood Count 4.42 X10*6/uL (4.20-5.50); White Blood Count 5.6 X10*3/uL (4.8-10.8)
[2023-01-16 14:55] LABS: Anion Gap 12 (12-20); Blood Urea Nitrogen 9 mg/dL (9-16); C Reactive Protein 0.18 mg/dL (< or = 0.50); Calcium 9.5 mg/dL (8.4-10.2); Carbon Dioxide 27 mmol/L (22-29); Chloride 106 mmol/L (96-108); Estimated Glomerular Filt Rate > 60; Glucose Fasting 81 mg/dL (60-99); Potassium 3.3 mmol/L (3.3-5.1); Sodium 142 mmol/L (135-145)
[2023-01-16 15:14] LABS: Thyroid Stimulating Hormone 2.46 uIU/mL (0.32-4.0)
[2023-01-16 15:31] LABS: Erythrocyte Sedimentation Rate 12 MM/HR (0-20)
== END 2023-01-16 11:45 | disposition home or self-care (01) ==
LOC: HO.CHCLDS 11:44
PROVIDERS: Visit Provider Internal Medicine
DX: R10.30 Lower abdominal pain, unspecified (principal); R25.1 Tremor, unspecified; M25.511 Pain in right shoulder; M25.512 Pain in left shoulder
CPT/HCPCS: 36415; 80048; 84443; 85025; 85652; 86140; 87086; 87088; 87186

== ENCOUNTER → 2023-02-10 14:08 | Outpatient (BNV) | payer MEDICAID, SELFPAY | PROVIDERS: PCP Student in an Organized Health Care Education/Training Program; Referring Provider General Practice; Visit Provider Internal Medicine Medical Oncology | DX: D64.9 Anemia, unspecified (principal); D51.9 Vitamin B12 deficiency anemia, unspecified | CPT/HCPCS: 99204; 99213 ==

== ENCOUNTER → 2023-06-10 14:16 | Outpatient (BNVA) | payer MEDICAID, SELFPAY | PROVIDERS: PCP Student in an Organized Health Care Education/Training Program; Visit Provider Anesthesiology ==

== ENCOUNTER 2023-06-12 14:03 | Outpatient (AMB) | payer MEDICAID, SELFPAY ==
--- NOTE | 2023-06-12 14:00 | MHC.OFFVIS ---
Intake Vital Signs 06/12/23 14:07 Height 4 ft 11 in Weight 137 lb BMI 27.7 Pulse 73 Pulse Source Pulse Oximeter Temp 98.3 F Temp Source Oral Pulse Oximetry (%) 98 Intake Visit Reasons: 6 month follow up Allergies No Known Allergies Allergy (Verified 06/12/23 14:09) HPI 6 month follow up HPI Details She feels well. She is not asking for penicillin refill as she is not taking it at this time Leg looks same. [facility] Medical History Infection associated with internal right knee prosthesis Cellulitis History of pulmonary embolism History of DVT (deep vein thrombosis) Post-traumatic osteoarthritis of right knee Sleep apnea High cholesterol Asthma HTN (hypertension) Surgical History Status post total knee replacement, right History of bunionectomy of both great toes Hx of gastric bypass History of laparoscopic cholecystectomy History of H/O right knee surgery Social History Household Members: Spouse Housing: House Are you a primary manager critical care to a significant other at home: No Do you presently have visiting nurse or other home services: No Alcohol intake: never Patient Tobacco Use Status: Never used Tobacco service: No Current occupational status: unemployed Current occupation: rt handed. Review of Systems Const All systems reviewed & are unremarkable except as noted in HPI and below Physical Exam Vital Signs: Last Vital Signs Temp 98.3 F 06/12/23 14:07 Pulse 73 06/12/23 14:07 Pulse Ox 98 06/12/23 14:07 BMI result Body Mass Index 27.7 Const Other: General: cooperative Orientation/consciousness: patient oriented x3 HEENT Head: Yes normal to inspection Mouth: Normal oral and palatal mucosa present Eyes General: appearance normal, both eyes and all related structures Pupils: Equal, round and reactive pupils present Resp Effort & Inspection: normal respiratory effort Cardio Rate: regular rate Rhythm: regular rhythm GI Palpation (GI): Soft to palpation and nontender General: Yes no CVA tenderness Back/Spine/Pelvis Back: no CVA tenderness Skin General skin exam: no rashes or lesions noted Neuro General: patient oriented x3 Cranial nerves: Yes CN's II-XII intact bilaterally and Yes Equal, round and reactive pupils present Extrem Other: small area minor trauma scratched,healing General: Yes normal to inspection Psych Appearance: grossly normal Assessment & Plan Assessment & Plan (1) Chronic knee pain after total replacement of knee joint: Code(s): M25.569 - Pain in unspecified knee; G89.29 - Other chronic pain; Z96.659 - Presence of unspecified artificial knee joint Plan No further cellulitis. Come back if needed or in six months if on Penicillin. Coding Level of Care Code Est Pt Level 3 (31097) Diagnoses Chronic knee pain after total replacement of knee joint M25.569; G89.29; Z96.659
[2023-06-12 14:07] VITALS: PULSE 73; TEMP 36.8; O2SAT 98; BMI 27.7
== END 2023-06-12 14:36 | disposition home or self-care (01) ==
LOC: HO.HID 14:03
PROVIDERS: PCP Student in an Organized Health Care Education/Training Program; Referring Provider Student in an Organized Health Care Education/Training Program; Visit Provider Internal Medicine
DX: M25.569 Pain in unspecified knee (principal); G89.29 Other chronic pain; Z96.659 Presence of unspecified artificial knee joint
CPT/HCPCS: 99213

== ENCOUNTER → 2023-06-12 14:03 | Outpatient (BNVA) | payer MEDICAID, SELFPAY | PROVIDERS: PCP Student in an Organized Health Care Education/Training Program; Visit Provider Internal Medicine | DX: G89.29 Other chronic pain (principal); M25.561 Pain in right knee; Z96.651 Presence of right artificial knee joint | CPT/HCPCS: 99212 ==

== ENCOUNTER 2023-06-18 06:13 | Outpatient (REF) | payer MEDICAID, SELFPAY | END 2023-06-18 06:14 | disposition home or self-care (01) | LOC: CF 06:13 | PROVIDERS: Visit Provider Internal Medicine | DX: T84.84XA Pain due to internal orthopedic prosthetic devices, implants and grafts, initial encounter (principal); G89.29 Other chronic pain; Z96.651 Presence of right artificial knee joint | CPT/HCPCS: 64555; C1778 ==

== ENCOUNTER 2023-06-18 13:43 | Outpatient (AMB) | payer MEDICAID, SELFPAY ==
[2023-06-18 13:49] VITALS: BP 126/78; PULSE 73; RESP 18; O2SAT 99; BMI 27.7
--- NOTE | 2023-06-18 13:49 | A.OFFVIS_ITS ---
Intake Vital Signs 06/18/23 13:49 06/18/23 15:07 Height 4 ft 11 in Weight 137 lb BMI 27.7 BP 126/78 116/68 Blood Pressure Location Lt brachial Lt brachial Position Sitting Sitting Respiration 18 16 Pulse 73 84 Pulse Source Pulse Oximeter Pulse Oximeter Pulse Oximetry (%) 99 97 Oxygen Delivery Method Room Air Room Air Comment Pre-Op Post-Op Intake Visit Reasons: right SN Sprint Allergies No Known Allergies Allergy (Verified 06/12/23 14:09) HPI right SN Sprint HPI Details Patient presents for scheduled procedure. Denies any recent cough, cold, infection, fever or other significant changes in medical history since last office visit. [facility] Medical History Asthma Cellulitis High cholesterol History of DVT (deep vein thrombosis) History of pulmonary embolism HTN (hypertension) Infection associated with internal right knee prosthesis Post-traumatic osteoarthritis of right knee Sleep apnea Surgical History H/O right knee surgery History of bunionectomy of both great toes History of History of laparoscopic cholecystectomy Hx of gastric bypass Status post total knee replacement, right Social History Household Members: Spouse Housing: House Are you a primary md do resident urgent care to a significant other at home: No Do you presently have visiting nurse or other home services: No Alcohol intake: never Patient Tobacco Use Status: Never used Tobacco service: No Current occupational status: unemployed Current occupation: rt handed. Physical Exam Vital Signs: Last Vital Signs Pulse 84 06/18/23 15:07 Resp 16 06/18/23 15:07 BP 116/68 06/18/23 15:07 Pulse Ox 97 06/18/23 15:07 Oxygen Delivery Method Room Air 06/18/23 15:07 BMI result Body Mass Index 27.7 Office Procedures Details: Peripheral Nerve Stimulation Temporary Lead Placement, Ultrasound-Guided, Saphenous Nerve, Right ? After the risks, benefits and alternatives were discussed with the patient and informed consentwas obtained, patient was placed in the supine position and padded to foster comfort. Appropriate skin and bony landmarks were identified, and pertinent vascular structures were located. The skin overlying the needle entry site was prepped and draped in sterile fashion. Ultrasound was used to identify the femoral artery, the femoral vein and the saphenous nerve. After identifying and marking the intended target along the course of the saphenous nerve, the skin around the planned entry point and the subcutaneous tissues were injected with local anesthetic. An introducer needle and stimulating probe were assembled, inserted and advanced along the intended course of the saphenous; nerve, taking care to maintain the proper depth of insertion as the introducer was advanced under ultrasound guidance. The introducer needle was delivered to a location in proximity to the nerve taking care not to puncture the femoral artery or the vein. Multiple stimulation parameters were used to deliver stimulation to the saphenous nerve in concert with stimulating at multiple positions around the nerve. Nerve target acquisition was confirmed noting generation of sensory and mild motor effects (paresthesia, muscle tension, etc) in the medial knee, leg and ankle; corresponding to the distribution of the saphenous nerve. Various electrical parameter combinations were tested, and the lead location was adjusted (physically relocated under ultrasound guidance) until the patient indicated medial knee paresthesia and tension overlapping the distribution of the patient?s typical region of pain. The stimulating probe was removed from the introducer and a percutaneous lead was guided through the needle and delivered to a location in similar proximity to the nerve. Final location was verified with electrical stimulation and documented. The introducer needle was removed, and the exposed end of the percutaneous lead was attached to an external stimulator unit. Various electrical parameter combinations were again tested until the patient indicated paresthesia and muscle tension overlapping the distribution of the patient?s typical region of pain. After confirming that lead impedance was in the normal range, the external unit was detached, the needle was removed, and the lead was anchored at the skin. The lead was threaded into the connector block and electrical continuity and desired patient response was confirmed. The connector block was attached to the external stimulator unit. The site was covered with a sterile occlusive dressing. A final ultrasound image was taken to document final placement. The patient was observed for stability of vital signs and comfort. Sprint PNS Device: Sprint PNS Device [id number] Percutaneous Peripheral Neuroelectrode Procedure: 26420 - Percutaneous Peripheral Neuroelectrode Procedure code (CPT) selection complete Office Meds lidocaine (PF) 50 mg/5 mL (1 %) injection syringe Performing Provider: Janet Fallon APRN, FAMILY [employer]ER Performing Location: [facility] Administered by: Marianna Woody LPN on 06/18/23 14:48 Dose Route Admin Location Dispensed Lot Number Expiration Date [employer] 5 mL subcut 5 mL [id number] [employer] Assessment & Plan Assessment & Plan (1) Chronic knee pain after total replacement of knee joint: Code(s): M25.569 - Pain in unspecified knee; G89.29 - Other chronic pain; Z96.659 - Presence of unspecified artificial knee joint (2) Status post revision of total replacement of right knee: Code(s): Z96.651 - Presence of right artificial knee joint Plan Patient is status post right temporary saphenous nerve stimulator placement. Patient tolerated procedure well and was discharged home in stable condition with discharge instructions. All questions were answered. We will follow-up via telephone or in clinic to assess response to therapy. A follow-up appointment was made during today's visit. Orders: Orders AMB Sprint PNS Today G89.29 - Other chronic pain, M25.569 - Pain in unspecified knee, Z96.659 - Presence of unspecified artificial knee joint US guide needle placement Today G89.29 - Other chronic pain, M25.569 - Pain in unspecified knee, Z96.659 - Presence of unspecified artificial knee joint Coding Level of Care Code Procedure Only Diagnoses Chronic knee pain after total replacement of knee joint M25.569; G89.29; Z96.659 Status post revision of total replacement of right knee Z96.651 CPT Codes Sprint PNS - Sprint PNS Device: Sprint PNS Device ([id number]) Sprint PNS - SPRINT: 72644 - Percutaneous Peripheral Neuroelectrode ([id number]) Implantable Device Implantable Device Implantable Devices [employer] Implant Date Expiration Date Analgesic PENS system 1 [employer] 06/18/23 10/01/24 COMP #2 RT FEMORAL TRIATH 1 05/14/21 04/02/25 Orthopaedic cement, non-antimicrobial 2 [employer] 05/14/21 12/28/23 Polyethylene patella prosthesis 1 [employer] [place]. 05/14/21 12/24/25 Tibial insert 1 [employer] [place]. 05/14/21 07/01/21 Tibial insert 1 [employer] [place]. 08/12/22 Uncoated knee femur prosthesis, metallic 1 [employer] [place]. 05/14/21 07/05/24 Uncoated knee tibia prosthesis, metallic [facility] [employer] [place]. 05/14/21 10/22/25
[2023-06-18 15:07] VITALS: BP 116/68; PULSE 84; RESP 16; O2SAT 97
== END 2023-06-18 15:03 | disposition home or self-care (01) ==
LOC: HO.PMCPRC 13:43
PROVIDERS: PCP Student in an Organized Health Care Education/Training Program; Visit Provider Internal Medicine
DX: M25.561 Pain in right knee (principal); G89.29 Other chronic pain; Z96.651 Presence of right artificial knee joint
CPT/HCPCS: 64555

== ENCOUNTER 2023-06-29 08:55 | Outpatient (AMB) | payer MEDICAID, SELFPAY ==
--- NOTE | 2023-06-29 09:04 | A.OFFVIS_ITS ---
Vital Signs 06/29/23 09:05 Height 4 ft 11 in Weight 150 lb BMI 30.3 BP 101/57 L Blood Pressure Location Lt brachial Position Sitting Respiration 12 Pulse 71 Pulse Source Pulse Oximeter Pulse Oximetry (%) 98 Oxygen Delivery Method Room Air Intake Visit Reasons: s/p right SN Sprint Allergies No Known Allergies Allergy (Verified 06/29/23 09:06) Medication List - Last Reconciled 06/29/23 by Marianna Woody LPN albuterol sulfate 90 mcg/actuation 2 inhalations inhalation Q6H PRN azelastine 1 spray intranasal BID budesonide-formoterol 160-4.5 mcg/actuation (Symbicort) 2 puffs inhalation BID PRN celecoxib 200 mg PO BID dicyclomine 10 mg PO TID folic acid 1 mg PO DAILY hydroxyzine HCl 25 mg PO DAILY meloxicam 7.5 mg PO DAILY nortriptyline 25 mg PO DAILY omeprazole 40 mg PO DAILY@0630 penicillin V potassium 250 mg PO BID 30 days sertraline 100 mg PO DAILY simvastatin 10 mg PO DAILY verapamil 40 mg PO BID walker Folding Front wheeled walker HPI HPI s/p right SN Sprint: Details: 53-year-old female who presents today to the office for a status post right SN sprint. The patient reports 60% relief following the procedure. She still continues to experience pain, but it has improved. She states that she is able to walk without pain now. She reports having an allergic reaction around the incision site. She has not used hydrocortisone cream in the past for rash. Past procedures: 06/18/23: Peripheral Nerve Stimulation Temporary Lead Placement, Ultrasound- Guided, Saphenous Nerve, Right: 60% relief. [facility] Medical History Infection associated with internal right knee prosthesis Cellulitis History of pulmonary embolism History of DVT (deep vein thrombosis) Post-traumatic osteoarthritis of right knee Sleep apnea High cholesterol Asthma HTN (hypertension) Surgical History Status post total knee replacement, right History of bunionectomy of both great toes Hx of gastric bypass History of laparoscopic cholecystectomy History of H/O right knee surgery Social History (Updated 06/26/23 @ 14:40 by Dodie Maloney) Household Members: Spouse Housing: House Are you a primary rn intensive care unit to a significant other at home: No Do you presently have visiting nurse or other home services: No Alcohol intake: never Patient Tobacco Use Status: Never used Tobacco Use of substances other than those prescribed or required for medical reasons: No Have you been hit, kicked, punched, or otherwise hurt by someone within the past year? If so, by whom?: No Do you feel safe in your current relationship?: Yes Do you have thoughts of harming others: None Patient : No service: No Current occupational status: unemployed Current occupation: rt handed. Review of Systems Const All systems reviewed & are unremarkable except as noted in HPI and below Physical Exam Vital Signs: Last Vital Signs Pulse 71 06/29/23 09:05 Resp 12 06/29/23 09:05 BP 101/57 L 06/29/23 09:05 Pulse Ox 98 06/29/23 09:05 Oxygen Delivery Method Room Air 06/29/23 09:05 BMI result Body Mass Index 30.3 General: Appears afebrile. Alert and oriented. Mood and affect appropriate. Follows and participates in conversation appropriately. Respiratory effort is unlabored. Able to transition from sit to stand unassisted. Ambulates with bilaterally normal heel strike and toe off. There is a small area of erythema around the lead insertion site likely secondary to an allergic reaction. There is no discharge noted. Results Reviewed Results Reviewed: No imaging is available for review. Assessment & Plan Assessment & Plan (1) Chronic knee pain after total replacement of knee joint: Code(s): M25.569 - Pain in unspecified knee; G89.29 - Other chronic pain; Z96.659 - Presence of unspecified artificial knee joint Category: Medical Plan The patient will continue to use the stimulation device. The dressing was changed today in the office. I prescribed hydrocortisone cream 1% today for her allergic reaction. I advised applying a small amount of cream and let it dry, and then apply the dressing. Also advised to frequently change the dressing at home. She will do this for the next week or so and then send me a picture of her lead insertion site. At this time, the lead insertion site does not look infected, so we will keep a close eye and making sure it does not get infected. Scribed for Dr. Lopez by Earl Alondra, biomedical engineering supervisor, on 06/29/2023. I, Dr. Lopez, have personally reviewed and agree with the information entered by the scribe. Medications: New hydrocortisone 1% (Anti-Itch (hydrocortisone)) Apply thin film of ointment to the affected area as instructed 1 appl topical BID 28.35 grams 0RF
[2023-06-29 09:05] VITALS: BP 101/57; PULSE 71; RESP 12; O2SAT 98; BMI 30.3
== END 2023-06-29 09:31 | disposition home or self-care (01) ==
PROVIDERS: PCP Student in an Organized Health Care Education/Training Program; Visit Provider Internal Medicine
DX: M25.569 Pain in unspecified knee (principal); G89.29 Other chronic pain; Z96.659 Presence of unspecified artificial knee joint
CPT/HCPCS: 99213

== ENCOUNTER → 2023-06-29 08:55 | Outpatient (BNVA) | payer MEDICAID, SELFPAY | PROVIDERS: PCP Student in an Organized Health Care Education/Training Program; Visit Provider Internal Medicine | DX: M25.561 Pain in right knee (principal); G89.29 Other chronic pain; Z96.651 Presence of right artificial knee joint | CPT/HCPCS: 99212 ==

== ENCOUNTER 2023-08-03 12:04 | Emergency (ER) | payer MEDICAID, SELFPAY ==
[2023-08-03 12:25] VITALS: BP 122/71; PULSE 64; RESP 16; TEMP 36.6; O2SAT 98; BMI 28.3
--- NOTE | 2023-08-03 12:31 | ED.GENADULT ---
HPI - General Adult General Chief complaint: Abdominal Pain Stated complaint: lower abd pain Source: patient Mode of arrival: ambulatory Limitations: no limitations History of Present Illness HPI narrative: Patient is a 53 year old assigned female at with a history of anemia presenting to the emergency department today with right sided groin pain. Patient states that over the last few days she has had right sided groin pain, dizziness, nausea, and painful urination. Patient denies any lightheadedness, vomiting, fever, chills, blurry vision, double vision, loss of vision, chest pain, difficulty breathing, shortness of breath, back pain, night sweats, increased urinary frequency, increased urinary urgency, blood in her urine or stool, syncope or a near syncopal episode, recent trauma or falls, bowel incontinence, bladder incontinence, bowel retention, bladder retention, or any other complaints at this time. Onset (ago): day(s) Location: abdomen Severity: mild Severity scale (1-10): 3 Relieving factors: none Exacerbating factors: none Associated symptoms: nausea/vomiting Treatments prior to arrival: none Related Data Home Medications ?Medication ?Instructions ?Recorded ?Confirmed albuterol sulfate 90 mcg/actuation 2 inh inhalation Q6H PRN Shortness 11/15/20 06/29/23 breath activated powder inhaler Of Breath Or Wheezing omeprazole 40 mg capsule,delayed 40 mg PO DAILY@0630 11/15/20 06/29/23 release simvastatin 10 mg tablet 10 mg PO DAILY 11/15/20 06/29/23 budesonide-formoterol HFA 160 2 puff inhalation BID PRN 05/06/21 06/29/23 mcg-4.5 mcg/actuation aerosol Shortness Of Breath inhaler (Symbicort) azelastine 137 mcg (0.1 %) nasal 1 spray intranasal BID 08/11/22 06/29/23 spray aerosol dicyclomine 10 mg capsule 10 mg PO TID 08/11/22 06/29/23 hydroxyzine HCl 25 mg tablet 25 mg PO DAILY 08/11/22 06/29/23 sertraline 25 mg tablet 100 mg PO DAILY 08/11/22 06/29/23 verapamil 40 mg tablet 40 mg PO BID 08/11/22 06/29/23 meloxicam 7.5 mg tablet 7.5 mg PO DAILY 11/26/22 06/29/23 nortriptyline 25 mg capsule 25 mg PO DAILY 11/26/22 06/29/23 Previous Rx's ?Medication ?Instructions ?Recorded walker #1 ea 05/09/21 penicillin V potassium 250 mg 250 mg PO BID 30 days #60 tabs 11/26/22 tablet celecoxib 200 mg capsule 200 mg PO BID #60 caps 06/25/23 folic acid 1 mg tablet 1 mg PO DAILY #90 tabs 06/26/23 hydrocortisone 1 % topical 1 appl topical BID #28.35 grams 06/29/23 ointment (Anti-Itch (hydrocortisone)) cefuroxime axetil 250 mg tablet 250 mg PO BID 7 days #14 tabs 08/04/23 Allergies Allergy/AdvReac Type Severity Reaction Status Date / Time No Known Allergies Allergy Verified 08/03/23 12:26 Review of Systems Constitutional: Constitutional: Reports no additional constitutional complaints, Denies chills, Denies fever(s) and Denies night sweats Eyes: Eyes: Reports no additional eye complaints, Denies blurry vision, Denies change in vision, Denies diplopia, Denies eye discharge, Denies loss of vision and Denies eye pain ENT: Reports dizziness Cardiovascular: Cardiovascular: Reports no additional cardiovascular complaints, Denies chest pain, Denies lightheadedness, Denies Loss of Consciousness and Denies dyspnea Respiratory: Respiratory: Reports no additional respiratory complaints and Denies dyspnea Gastrointestinal: Gastrointestinal: Reports no additional gastrointestinal complaints, Reports abdominal pain, Denies melena, Denies hematochezia, Denies change in bowel habits, Denies change in stool character and Reports nausea Genitourinary: Genitourinary: Denies hematuria, Denies urinary frequency, Reports dysuria, Denies urinary incontinence, Denies urinary hesitancy and Denies urinary urgency Musculoskeletal: Musculoskeletal: Reports no additional musculoskeletal complaints, Denies numbness and Denies tingling Neurologic: Reports dizziness, Denies loss of vision, Denies numbness and Denies tingling Psychiatric: Psychiatric: Reports no additional psychiatric complaints Endocrine: Endocrine: Reports no additional endocrine complaints Hematologic/Lymphatic: Hematologic/Lymphatic: Reports no additional hematologic/lymphatic complaints Allergic/Immunologic: Allergic/Immunologic: Reports no additional allergic/immunologic complaints PMFSH Past Medical History Attestation statement: The following information was validated with the patient. Source: old records reviewed and nursing notes reviewed Medical History Infection associated with internal right knee prosthesis Cellulitis History of pulmonary embolism History of DVT (deep vein thrombosis) Post-traumatic osteoarthritis of right knee Sleep apnea High cholesterol Asthma HTN (hypertension) Surgical History Status post total knee replacement, right History of bunionectomy of both great toes Hx of gastric bypass History of laparoscopic cholecystectomy History of H/O right knee surgery Social History Social History Household Members: Spouse Housing: House Are you a primary intensive care specialist to a significant other at home: No Do you presently have visiting nurse or other home services: No Alcohol intake: never Patient Tobacco Use Status: Never used Tobacco Advance Directives: No Advance Directives Information Provided: No Do you have a plan to hurt others: No Plan service: No Current occupational status: unemployed Current occupation: rt handed. Physical Exam ED Vital Signs: BMI result Body Mass Index 28.3 Const General: cooperative, no acute distress, alert and awake Nutritional Appearance: well nourished Orientation/consciousness: patient oriented x3 Limitations: no limitations HENMT Head: Yes normal to inspection and Yes atraumatic Ears: hearing grossly normal bilaterally and external ears normal General nose exam: Normal external nose present, no nasal discharge noted and no epistaxis Face and sinus: Yes normal facial exam, No abrasion and No laceration Mouth: Normal oral and palatal mucosa present, no drooling and no muffled voice Eyes General: appearance normal, both eyes and all related structures Periorbital: periorbital findings normal Eyelids: Yes eyelids normal Conjunctivae: conjunctivae normal Pupils: Equal, round and reactive pupils present EOM: EOMs intact bilaterally Neck Neck: Yes normal visual inspection, Yes full ROM and Yes no lymphadenopathy Chest Chest palpation & inspection: normal inspection of the chest Resp Effort & Inspection: normal respiratory effort and able to speak in complete sentences Neuro General: patient oriented x3 and moves all extremities Cranial nerves: Yes Equal, round and reactive pupils present Cognition (Neuro): normal cognition Motor exam (neuro): 5/5 motor strength present throughout Sensory Exam: Normal double simultaneous stimulation for sensation Coordination: [id number] test normal Extrem General: Yes normal to inspection, Yes full ROM and Yes capillary refill normal Psych Appearance: grossly normal Mental Status: mental status grossly normal Affect: normal affect Attitude: cooperative Thought process: Normal thought process present Thought content: Normal thought content present Insight: Good insight present (Psych) Course Course Course Narrative: RME performed by Marianna Perez PA-C. Patient is a 53 year old assigned female at presenting to the emergency department with RLQ abdominal pain. Patient states that over the last few days she has right rower lower quadrant abdominal pain and nausea. Patient states that she still has her appendix but is status post gastric sleeve (years ago) and cholecystectomy. Detailed physical exam and review of systems are deferred to the emergency room clinician. Labs and swabs ordered. Patient placed back in the waiting room pending room availability and results. Medical Decision Making Medical Decision Making [facility] Narrative: Patient is a 53 year old assigned female at with a history of anemia presenting to the emergency department today with groin pain, dizziness, nausea, and painful urination. Patient's limited physical exam performed in triage was unremarkable. Patient's blood work was unremarkable. Patient's urine showed a possible urinary tract infection. Patient left the department without completing treatment. Patient left the department before myself or any of the other emergency department clinicians could explain to or review with the patient; physical exam findings, test results, need or lack there of for additional testing, need or lack there of to perform a procedure, need or lack there of for hospital admission / transfer, need or lack there of for prescription medication, treatment options, or a treatment plan. Given patient's possible UTI and clinical presentation - I prescribed an antibiotic. Patient will be called and informed. Differential Diagnosis Differential Diagnoses: The differential diagnosis associated with the presentation includes UTI Abdominal pain Pyelonpehritis Admission/Observation Consideration of admission/observation: Escalation of care including admission/observation considered Patient would have been admitted to the hospital had she completed her work up and it had any findings where hospital admission was appropriate, her clinical presentation warranted hospital admission, had myself or any other emergency mirror department supervisor had the ability to discuss need or lack there of for hospital admission, and the patient hadn't left the department without completing treatment. Lab Data [facility] Lab Attestation statement: I reviewed the patient's lab results. My interpretation of these results are in the MDM Rationale portion of this note. 08/03/23 12:55 08/03/23 12:55 Labs: Lab Results 08/03/23 08/03/23 Range/Units 12:55 12:58 WBC 11.6 H (4.8-10.8) X10*3/uL RBC 4.82 (4.20-5.50) X10*6/uL Hgb 13.6 (12.0-16.0) g/dl Hct 41.5 (37.0-47.0) % MCV 86.1 (80.0-98.0) fL MCH 28.2 (27.0-33.0) pg MCHC 32.8 (31.0-35.0) g/dl RDW 14.4 (11.0-16.0) % Plt Count 426 H (160-400) X10*3/uL MPV 9.5 (9.4-12.3) fL Immature Gran % (Auto) 0.6 H (0.0-0.4) % Neut % (Auto) 72.9 (45-73) % Lymph % (Auto) 15.9 L (20-40) % [place] % (Auto) 9.8 (2-11) % Eos % (Auto) 0.3 (0-4) % Baso % (Auto) 0.5 (0-2) % Lymph # (Auto) 1.9 (1.2-4.9) X10*3/uL [place] # (Auto) 1.1 (0.1-1.2) X10*3/uL Eos # (Auto) 0.0 (0.0-0.4) X10*3/uL Baso # (Auto) 0.1 (0.0-0.2) X10*3/uL Abs Immat Gran (auto) 0.07 H (0.00-0.03) X10*3/uL Absolute Neuts (auto) 8.5 H (2.0-8.3) x10*3/uL Absolute Nucleated RBC 0.000 (0.0-0.012) X10*3/uL Nucleated RBC % (auto) 0.0 (0.0-0.2) /100WBC PT 10.8 L (11.1-13.3) SEC INR 0.9 (0.9-1.1) APTT 33.2 (26.0-36.8) SEC Sodium 141 (135-145) mmol/L Potassium 4.4 (3.3-5.1) mmol/L Chloride 105 (96-108) mmol/L Carbon Dioxide 25 (22-29) mmol/L Anion Gap 15 (12-20) BUN 13 (9-16) mg/dL Creatinine 1.08 (0.5-1.4) mg/dL Estim Creat Clear Calc 49.9 Estimated GFR 53 Random Glucose 98 (60-115) mg/dL Calcium 10.2 D (8.4-10.2) mg/dL Magnesium 2.4 (1.6-2.6) mg/dL Total Bilirubin 0.4 (0.0-1.0) mg/dL AST 16 (5-31) U/L ALT 19 (0-31) U/L Alkaline Phosphatase 101 (39-117) U/L Total Protein 8.4 H (6.5-8.0) g/dL Albumin 4.7 (3.5-5.0) g/dL Urine Color Yellow Urine Appearance Cloudy Urine pH 6.0 (5.0-9.0) Ur Specific [place] >= 1.030 H (1.005-1.025) Urine Protein Trace (Neg-Trace) mg/dL Urine Glucose (UA) Negative (Negative) mg/dL Urine Ketones Trace (Negative) mg/dL Urine Blood Trace H (Negative) Urine Nitrite Positive H (Negative) Ur Leukocyte Esterase Small (1+) H (Negative) Urine RBC 0-2 (0-2) /HPF Urine WBC 6-10 H (0-5) /HPF Ur Squamous Epith Cells 3-5 (0-2) /HPF Urine Bacteria 4+ (None Seen) Hyaline Casts 0-2 (0-2) /LPF Influenza Type A (PCR) NEGATIVE (Negative) Influenza Type B (PCR) NEGATIVE (Negative) RSV RNA Qual (PCR) NEGATIVE (Negative) SARS-CoV-2 RNA (RT-PCR) NEGATIVE (Negative) Prescription Management I considered prescription management with: Antibiotic (given patient's possible UTI and clinical presentation - will prescribe an antibiotic.) Discharge Plan Discharge Clinical Impression: UTI (urinary tract infection) Patient Disposition: Left W/O Completing Treatment Prescriptions: New cefuroxime axetil 250 mg tablet 250 mg PO BID 7 Days Qty: 14 0RF No Action celecoxib 200 mg capsule 200 mg PO BID Qty: 60 0RF budesonide-formoterol [Symbicort] 160-4.5 mcg/actuation HFA aerosol inhaler 2 puff inhalation BID PRN (Reason: Shortness Of Breath) verapamil 40 mg tablet 40 mg PO BID sertraline 25 mg tablet 100 mg PO DAILY hydroxyzine HCl 25 mg tablet 25 mg PO DAILY azelastine 137 mcg (0.1 %) aerosol,spray 1 spray intranasal BID dicyclomine 10 mg capsule 10 mg PO TID folic acid 1 mg Tablet 1 mg PO DAILY Qty: 90 3RF simvastatin 10 mg tablet 10 mg PO DAILY albuterol sulfate 90 mcg/actuation aerosol powdr breath activated 2 inh inhalation Q6H PRN (Reason: Shortness Of Breath Or Wheezing) omeprazole 40 mg capsule,delayed release(DR/EC) 40 mg PO DAILY@0630 ([facility] [place] yolanda [facility] See Rx Instructions .MEDSUPPLY Qty: 1 0RF Rx Instructions: Folding Front wheeled yolanda meloxicam 7.5 mg tablet 7.5 mg PO DAILY nortriptyline 25 mg capsule 25 mg PO DAILY penicillin V potassium 250 mg tablet 250 mg PO BID 30 Days Qty: 60 5RF hydrocortisone [Anti-Itch (HC)] 1 % ointment 1 appl topical BID Qty: 28.35 0RF Rx Instructions: Apply thin film of ointment to the affected area as instructed Discharge Date/Time: 08/03/23 21:05
[2023-08-03 13:13] LABS: MANUAL DIFF FLAG NO
[2023-08-03 13:17] LABS: Basophils Absolute Auto 0.1 X10*3/uL (0.0-0.2); Basophils Percent Auto 0.5 % (0-2); Eosinophils Percent Auto 0.3 % (0-4); Hematocrit 41.5 % (37.0-47.0); Hemoglobin 13.6 g/dl (12.0-16.0); Imm Gran Abs Auto 0.07 X10*3/uL (0.00-0.03); Imm Gran Pct Auto 0.6 % (0.0-0.4); Lymphocytes Absolute Auto 1.9 X10*3/uL (1.2-4.9); Lymphocytes Percent Auto 15.9 % (20-40); Mean Corpuscular HGB Conc 32.8 g/dl (31.0-35.0); Mean Corpuscular Hemoglobin 28.2 pg (27.0-33.0); Mean Corpuscular Volume 86.1 fL (80.0-98.0); Mean Platelet Volume 9.5 fL (9.4-12.3); Monocytes Absolute Auto 1.1 X10*3/uL (0.1-1.2); Monocytes Percent Auto 9.8 % (2-11); Neutrophils Absolute Auto 8.5 x10*3/uL (2.0-8.3); Neutrophils Percent Auto 72.9 % (45-73); Platelet Count 426 X10*3/uL (160-400); Red Blood Count 4.82 X10*6/uL (4.20-5.50); Red Cell Distribution Width 14.4 % (11.0-16.0); White Blood Count 11.6 X10*3/uL (4.8-10.8)
[2023-08-03 13:21] LABS: INTERNATIONAL NORM RATIO 0.9 (0.9-1.1); Prothrombin Time 10.8 SEC (11.1-13.3)
[2023-08-03 13:23] LABS: Partial Thromboplastin Time 33.2 SEC (26.0-36.8)
[2023-08-03 13:25] LABS: Appearance Urine Cloudy; Color Urine Yellow; Glucose Urine UA Negative (Negative); Leukocyte Esterase Urine Small (1+) (Negative); Nitrite Urine Positive (Negative); Specific Gravity - Urine >= 1.030 (1.005-1.025); UMIC TRIGGER UACC YES; Urine Blood Trace (Negative); Urine Ketones Trace mg/dL (Negative); Urine Protein Trace mg/dL (Neg-Trace)
[2023-08-03 13:46] LABS: Bacteria Urine 4+ (None Seen); Hyaline Casts Urine 0-2 /LPF (0-2); RBC Urine 0-2 /HPF (0-2); UACC Culture Trigger YES
[2023-08-03 13:46] LABS: Alanine Aminotransferase 19 U/L (0-31); Albumin Level 4.7 g/dL (3.5-5.0); Alkaline Phosphatase 101 U/L (39-117); Anion Gap 15 (12-20); Aspartate Amino Transferase 16 U/L (5-31); Bilirubin Total 0.4 mg/dL (0.0-1.0); Blood Urea Nitrogen 13 mg/dL (9-16); Calcium 10.2 mg/dL (8.4-10.2); Carbon Dioxide 25 mmol/L (22-29); Chloride 105 mmol/L (96-108); Creatinine Clr Calc Pharmacy 49.9; Estimated Glomerular Filt Rate 53; Glucose Random 98 mg/dL (60-115); Magnesium 2.4 mg/dL (1.6-2.6); Potassium 4.4 mmol/L (3.3-5.1); Sodium 141 mmol/L (135-145); Total Protein 8.4 g/dL (6.5-8.0)
[2023-08-03 13:53] LABS: Influenza A PCR NEGATIVE (Negative); Influenza B PCR NEGATIVE (Negative); Resp Syncy Virus RNA Qual PCR NEGATIVE (Negative); SARS COV2 PCR INHOUSE NEGATIVE (Negative)
--- NOTE | 2023-08-04 16:35 | PC.NURSE ---
I contacted Sade to let her know she has a prescription for her at the pharmacy on [address]. This was at the request of the provider that saw her yesterday as she has a positive UTI. Sade left without completing her care. She agreed to go and pick up operator the prescription. She indicated she still did not feel well. She was instructed to take her medication and return to the ED if she is not feeling well in the next couple of days.
== END 2023-08-03 21:05 | disposition left against medical advice (07) ==
LOC: HO.ED 21:02
PROVIDERS: Physician Assistant Medical; Emergency Provider Emergency Medicine; PCP Student in an Organized Health Care Education/Training Program
DX: N39.0 Urinary tract infection, site not specified (principal); R30.9 Painful micturition, unspecified; D64.9 Anemia, unspecified; R10.30 Lower abdominal pain, unspecified; R42 Dizziness and giddiness; I10 Essential (primary) hypertension; Z03.818 Encounter for observation for suspected exposure to other biological agents ruled out
CPT/HCPCS: 0241U; 80053; 81001; 83735; 85025; 85610; 85730; 87086; 87088; 87186; 99282; 99283

== ENCOUNTER 2023-08-14 08:52 | Outpatient (AMB) | payer MEDICAID, SELFPAY ==
[2023-08-14 09:11] VITALS: BP 124/79; PULSE 73; RESP 16; O2SAT 99; BMI 29.4
--- NOTE | 2023-08-14 09:11 | A.OFFVIS_ITS ---
Vital Signs 08/14/23 09:11 Height 4 ft 11 in Weight 145 lb 6 oz BMI 29.4 BP 124/79 Blood Pressure Location Lt brachial Position Sitting Respiration 16 Pulse 73 Pulse Source Pulse Oximeter Pulse Oximetry (%) 99 Oxygen Delivery Method Room Air Intake Visit Reasons: Sprint removal Allergies No Known Allergies Allergy (Verified 08/14/23 09:11) HPI HPI Sprint removal: Details: 53-year-old female who presents today to the office for a sprint removal. The patient reports no relief following the procedure. She is interested in alternative therapies. Past procedures: 06/18/23: Peripheral Nerve Stimulation Temporary Lead Placement, Ultrasound- Guided, Saphenous Nerve, Right: no significant relief. [facility] Medical History Infection associated with internal right knee prosthesis Cellulitis History of pulmonary embolism History of DVT (deep vein thrombosis) Post-traumatic osteoarthritis of right knee Sleep apnea High cholesterol Asthma HTN (hypertension) Surgical History Status post total knee replacement, right History of bunionectomy of both great toes Hx of gastric bypass History of laparoscopic cholecystectomy History of H/O right knee surgery Social History Household Members: Spouse Housing: House Are you a primary career development engineer to a significant other at home: No Do you presently have visiting nurse or other home services: No Alcohol intake: never Patient Tobacco Use Status: Never used Tobacco Use of substances other than those prescribed or required for medical reasons: No Have you been hit, kicked, punched, or otherwise hurt by someone within the past year? If so, by whom?: No Do you feel safe in your current relationship?: Yes Do you have thoughts of harming others: None Patient : No service: No Current occupational status: unemployed Current occupation: rt handed. Review of Systems Const All systems reviewed & are unremarkable except as noted in HPI and below Physical Exam Vital Signs: Last Vital Signs Pulse 73 08/14/23 09:11 Resp 16 08/14/23 09:11 BP 124/79 08/14/23 09:11 Pulse Ox 99 08/14/23 09:11 Oxygen Delivery Method Room Air 08/14/23 09:11 BMI result Body Mass Index 29.4 General: Appears afebrile. Alert and oriented. Mood and affect appropriate. Follows and participates in conversation appropriately. Respiratory effort is unlabored. Able to transition from sit to stand unassisted. Ambulates with bilaterally normal heel strike and toe off. The lead was removed with tip intact skin at the lead insertion site is clear Results Reviewed Results Reviewed: No imaging is available for review. 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 I provided her with a video and a brochure regarding the procedure. She is interested in proceeding, so I placed a referral to [facility] for psychology clearance. Once we obtain psychology clearance, we will schedule her for a trial of right infrapatellar saphenous nerve stimulation with the Curonix device. Justification for interventional therapy: * Patient with average pain > 6/10 * Patient has exhausted conservative therapy including physical therapy and oral medications. * Saphenous at adductor canal nerve stim trial not successful Scribed for Dr. Lopez by Earl Cantu, medical staff assistant, on 08/14/2023. I, Dr. Lopez, have personally reviewed and agree with the information entered by the scribe. Coding Level of Care Code Est Pt Level 4 (02873) Diagnoses Chronic knee pain after total replacement of knee joint M25.569; G89.29; Z96.659
== END 2023-08-14 10:02 | disposition home or self-care (01) ==
PROVIDERS: PCP Student in an Organized Health Care Education/Training Program; Visit Provider Internal Medicine
DX: M25.569 Pain in unspecified knee (principal); G89.29 Other chronic pain; Z96.659 Presence of unspecified artificial knee joint
CPT/HCPCS: 99214

== ENCOUNTER → 2023-08-14 08:52 | Outpatient (BNVA) | payer MEDICAID, SELFPAY | PROVIDERS: PCP Student in an Organized Health Care Education/Training Program; Visit Provider Internal Medicine | DX: M25.569 Pain in unspecified knee (principal); G89.29 Other chronic pain; Z96.659 Presence of unspecified artificial knee joint | CPT/HCPCS: 99212 ==

== ENCOUNTER 2023-08-26 16:12 | Outpatient (REF) | payer MEDICAID, SELFPAY | END 2023-08-26 16:13 | disposition home or self-care (01) | LOC: HO.CHCLNP 16:12 | PROVIDERS: Visit Provider Internal Medicine | DX: N30.91 Cystitis, unspecified with hematuria (principal) | CPT/HCPCS: 87086; 87088; 87186 ==

== ENCOUNTER → 2023-11-06 10:43 | Outpatient (BNVA) | payer MEDICAID, SELFPAY | PROVIDERS: PCP Student in an Organized Health Care Education/Training Program; Visit Provider Nurse Practitioner Family ==

== ENCOUNTER 2023-11-26 13:19 | Outpatient (AMB) | payer MEDICAID, SELFPAY ==
[2023-11-26 13:27] VITALS: BP 120/68; PULSE 63; BMI 28.0
--- NOTE | 2023-11-26 13:27 | A.OFFVIS_ITS ---
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 Allergies No Known Allergies Allergy (Verified 10/16/23 14:32) Medication List - Last Reconciled 11/26/23 by Abdelrahman Ricketts MD albuterol sulfate 90 mcg/actuation 2 inhalations inhalation Q6H PRN azelastine 1 spray intranasal BID budesonide-formoterol 160-4.5 mcg/actuation (Symbicort) 2 puffs inhalation BID PRN celecoxib 200 mg PO BID dicyclomine 10 mg PO TID folic acid 1 mg PO DAILY hydrocortisone 1% (Anti-Itch (hydrocortisone)) 1 appl topical BID hydroxyzine HCl 25 mg PO DAILY omeprazole 40 mg PO DAILY@0630 simvastatin 10 mg PO DAILY walker Folding Front wheeled walker HPI Comments Details: Sade is here for consultation regarding ventricular septal defect. She has been previously seen at [facility] for that. Thought to be small restrictive defect and no specific interventions done. She describes some sharp chest pains off and on. Both with and without exertion. She also gets tired and exhausted with activity. No known coronary disease or myocardial infarction or cardiomyopathy. History of bariatric surgery. She also has a history of DVT/pulmonary embolism after orthopedic procedures. [facility] Medical History VSD (ventricular septal defect) Infection associated with internal right knee prosthesis Cellulitis History of pulmonary embolism History of DVT (deep vein thrombosis) Post-traumatic osteoarthritis of right knee Sleep apnea High cholesterol Asthma HTN (hypertension) Surgical History Status post total knee replacement, right History of bunionectomy of both great toes Hx of gastric bypass History of laparoscopic cholecystectomy History of H/O right knee surgery Family History (Updated 11/26/23 @ 13:39 by Samaria Valencia) Father Heart problem Mother Heart problem Social History Household Members: Spouse Housing: House Are you a primary healthcare management to a significant other at home: No Do you presently have visiting nurse or other home services: No Alcohol intake: never Patient Tobacco Use Status: Never used Tobacco service: No Current occupational status: unemployed Current occupation: rt handed. Review of Systems Const Denies weakness ENT Denies dizziness Card Denies chest pain, Denies chest pain with activity, Denies syncope, Denies rapid heart rate, Denies pedal edema, Denies edema, Denies leg edema, Denies lightheadedness, Denies palpitations, Denies dyspnea, Denies dyspnea on exertion and Denies orthopnea Resp Denies cough, Denies dyspnea and Denies dyspnea on exertion GI Denies hematochezia and Denies change in stool character Musc Denies abnormal gait, Denies muscle cramps, Denies muscle weakness, Denies numbness, Denies radiating pain into limb and Denies tingling Neuro Denies abnormal gait, Denies dizziness, Denies syncope, Denies numbness, Denies tingling and Denies weakness Endo Denies palpitations Physical Exam Vital Signs: Last Vital Signs Pulse 63 11/26/23 13:27 BP 120/68 11/26/23 13:27 BMI result Body Mass Index 28.0 Const General: comfortable and no acute distress Orientation/consciousness: patient oriented x3 HEENT Other: Unremarkable Head: Yes normal to inspection Neck Neck: Yes normal visual inspection Chest Chest palpation & inspection: normal inspection of the chest Resp Auscultation: clear to auscultation bilaterally Cardio Palpation: normal PMI Heart sounds: S1 normal heart sound present, S2 normal heart sound present, no gallops, Murmur heart sound present systolic II/ and at the left sternal border and no rubs GI Palpation (GI): Soft to palpation Back/Spine/Pelvis Other: unremarkable Skin General skin exam: no rashes or lesions noted Neuro General: patient oriented x3 Extrem General: Yes normal to inspection Psych Mental Status: mental status grossly normal Office Procedures EKG Details: EKG with underlying sinus rhythm at 63/Min; nonspecific ST-T changes. [id number], Complete Assessment & Plan Assessment & Plan (1) VSD (ventricular septal defect): Code(s): Q21.0 - Ventricular septal defect Category: Medical (2) Precordial chest pain: Code(s): R07.2 - Precordial pain Category: Medical Plan In the [facility] echocardiogram in 2019, description small muscular mid septal VSD. In repeat study from 2020, not well visualized. She clearly has a murmur and most likely still has the VSD. We can repeat echocardiogram. Otherwise, she does have some atypical chest pain and shortness of breath, but do not believe they are connected to the VSD. We will get an exercise stress perfusion imaging study. Orders: Orders CA stress test Today Q21.0 - Ventricular septal defect, R07.2 - Precordial pain CA echo transthoracic complete Today Q21.0 - Ventricular septal defect NM cardiolite stress test Today Q21.0 - Ventricular septal defect, R07.2 - Precordial pain Coding Level of Care Code New Pt Level 4 (60588) Diagnoses VSD (ventricular septal defect) Q21.0 Precordial chest pain R07.2 CPT Codes EKG - CPT: 08001-[id number], Complete ([id number])
== END 2023-11-26 13:33 | disposition home or self-care (01) ==
PROVIDERS: PCP Student in an Organized Health Care Education/Training Program; Visit Provider Internal Medicine
DX: Q21.0 Ventricular septal defect (principal); R07.2 Precordial pain
CPT/HCPCS: 93010; 99214

== ENCOUNTER → 2023-11-26 13:19 | Outpatient (BNVA) | payer MEDICAID, SELFPAY | PROVIDERS: PCP Student in an Organized Health Care Education/Training Program; Visit Provider Internal Medicine | DX: Q21.0 Ventricular septal defect (principal); R07.2 Precordial pain; R94.31 Abnormal electrocardiogram [ECG] [EKG] | CPT/HCPCS: 93005; 99212 ==

== ENCOUNTER 2023-12-04 17:33 | Outpatient (REF) | payer MEDICAID, SELFPAY ==
[2023-12-05 03:40] LABS: CT PCR NOT DETECTED (Not Detect.); NG PCR NOT DETECTED (Not Detect.)
[2023-12-05 09:14] LABS: Bacterial Vaginosis PCR POSITIVE (Negative); Candida Group PCR DETECTED (Not Detect); Candida glab krusei PCR NOT DETECTED (Not Detect); Trichomonas vaginalis PCR NOT DETECTED (Not Detect)
== END 2023-12-04 17:34 | disposition home or self-care (01) ==
LOC: HO.HHCLNP 17:33
PROVIDERS: Visit Provider Emergency Medicine
DX: R30.0 Dysuria (principal)
CPT/HCPCS: 0352U; 87086; 87088; 87186; 87491; 87591

== ENCOUNTER 2023-12-09 13:47 | Outpatient (AMB) | payer MEDICAID, SELFPAY ==
--- NOTE | 2023-12-09 13:53 | A.OFFVIS_ITS ---
Vital Signs 12/09/23 13:59 Height 4 ft 11 in Weight 133 lb 4 oz BMI 26.9 BP 117/63 Blood Pressure Location Lt brachial Position Sitting Pulse 80 Pulse Source Monitor Intake Visit Reasons: 6 month follow up Allergies No Known Allergies Allergy (Verified 10/16/23 14:32) HPI HPI 6 month follow up: Details: She has been off PCN Knee is stable. She has had UTI. [facility] Medical History VSD (ventricular septal defect) Infection associated with internal right knee prosthesis Cellulitis History of pulmonary embolism History of DVT (deep vein thrombosis) Post-traumatic osteoarthritis of right knee Sleep apnea High cholesterol Asthma HTN (hypertension) Surgical History Status post total knee replacement, right History of bunionectomy of both great toes Hx of gastric bypass History of laparoscopic cholecystectomy History of H/O right knee surgery Family History Father Heart problem Mother Heart problem Social History Household Members: Spouse Housing: House Are you a primary career development facilitator to a significant other at home: No Do you presently have visiting nurse or other home services: No Alcohol intake: never Patient Tobacco Use Status: Never used Tobacco service: No Current occupational status: unemployed Current occupation: rt handed. Review of Systems Const All systems reviewed & are unremarkable except as noted in HPI and below Physical Exam Vital Signs: Last Vital Signs Pulse 80 12/09/23 13:59 BP 117/63 12/09/23 13:59 BMI result Body Mass Index 26.9 Const General: cooperative Orientation/consciousness: patient oriented x3 HEENT Head: Yes normal to inspection Mouth: Normal oral and palatal mucosa present Eyes General: appearance normal, both eyes and all related structures Pupils: Equal, round and reactive pupils present Resp Effort & Inspection: normal respiratory effort Cardio Rate: regular rate Rhythm: regular rhythm GI Palpation (GI): Soft to palpation and nontender General: Yes no CVA tenderness Back/Spine/Pelvis Back: no CVA tenderness Skin General skin exam: no rashes or lesions noted Neuro General: patient oriented x3 Cranial nerves: Yes CN's II-XII intact bilaterally and Yes Equal, round and reactive pupils present Extrem General: Yes normal to inspection Psych Appearance: grossly normal Assessment & Plan Assessment & Plan (1) Status post revision of total replacement of right knee: Comment: She is stable and not on prophylactic PCN for over a year. Code(s): Z96.651 - Presence of right artificial knee joint Category: Surgical Plan: No further antibiotics for prevention of knee infection needed at this time. See if needed. Coding Level of Care Code Est Pt Level 3 (53586) Diagnoses Status post revision of total replacement of right knee Z96.651
[2023-12-09 13:59] VITALS: BP 117/63; PULSE 80; BMI 26.9
== END 2023-12-09 14:33 | disposition home or self-care (01) ==
PROVIDERS: PCP Student in an Organized Health Care Education/Training Program; Visit Provider Internal Medicine
DX: Z96.651 Presence of right artificial knee joint (principal)
CPT/HCPCS: 99213

== ENCOUNTER → 2023-12-09 13:47 | Outpatient (BNVA) | payer MEDICAID, SELFPAY | PROVIDERS: PCP Student in an Organized Health Care Education/Training Program; Visit Provider Internal Medicine | DX: Z96.651 Presence of right artificial knee joint (principal) | CPT/HCPCS: 99212 ==

== ENCOUNTER → 2024-01-01 07:53 | Outpatient (REF) | payer MEDICAID, SELFPAY ==
--- NOTE | ~2024-01-01 | NM_ITS ---
EXERCISE MYOCARDIAL PERFUSION STUDY INDICATION: Chest pain TECHNIQUE: The patient was brought in for an exercise perfusion study on 01/01/2024. Patient performed exercise as per Renzo protocol and was injected 25 mCi of sestamibi once target heart rate was achieved. Images were obtained using the SPECT gamma camera interlaced with the gating device. Images were obtained in supine position. Resting perfusion study was performed on 01/04/2024. Patient was administered 25 mCi of sestamibi intravenously at rest. Images were then obtained in supine position. Total DLP 92 mGy-cm. Images were processed with the software and compared side to side in short axis, horizontal long axis and vertical long axis views. FINDINGS: Raw aquisition reviewed. The stress perfusion study showed no significant perfusion abnormality. Both uncorrected as well as CT attenuation corrected images were reviewed. The gated study shows normal LV systolic function with calculated LVEF of 60%. LV cavity is normal in size. The gated study shows normal wall thickening and contraction of segments. Resting study shows no significant perfusion abnormality. Gating at rest reveals normal wall motion with ejection fraction at 68%. The findings are consistent with no clear reversible or fixed perfusion abnormality. NM/NM cardiolite stress test IMPRESSION: 1. Myocardial perfusion imaging study shows probably normal myocardial perfusion. 2. Gated LVEF is 60% during stress and 68% during rest. 3. Transient ischemic dilatation not present. EKG component of the test reported separately. Electronically signed by: Abdelrahman Ricketts MD 01/04/2024 04:16 PM EDT
--- NOTE | 2024-01-01 07:58 | CA_ITS ---
Transthoracic Echocardiogram Patient (Last, First, Middle): Sade Fraga, Gender: Female Date of : 1970 Age: 53 Procedure Date: 01/01/2024 Procedure Type: Transthoracic Echocardiogram Location: OP Height: 149. 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 The visually estimated ejection fraction is between 55-60%. Diastolic function is normal for age. There is evidence of a small muscular ventricular septal defect. - Normal right ventricular cavity size and systolic function. Findings Left Ventricle Normal left ventricular size, thickness, systolic function, and wall motion. The visually estimated ejection fraction is between 55-60%. Diastolic function is normal for age. There is evidence of a small muscular ventricular septal defect. Right Ventricle Normal right ventricular cavity size and systolic function. Atria The left atrium is normal in size. The right atrium is normal in size. Aortic Valve Normal aortic valve structure and function. There is no aortic valve stenosis. There is trace (trivial) aortic valve regurgitation. Mitral Valve The mitral valve appears normal. There is trace mitral valve regurgitation. There is no mitral valve stenosis. Pulmonic Valve The pulmonic valve is likely normal. Tricuspid Valve Normal tricuspid valve structure. There is trace tricuspid valve regurgitation. Normal right atrial pressure. There is no evidence of pulmonary hypertension. Great Vessels All visible segments of the aorta are normal in size. The visualized portions of the pulmonary artery and branches are normal. Venous The inferior vena cava is normal in size and collapses greater than 50% with inspiration. Pericardium/Pleural There is no evidence of pericardial effusion. Prior Study Comparison No significant change compared to prior study dated: 11/22/2018. Measurements 2D Linear Measurements IVSd: 0.85 0.6-0.9/0.6-1.0 cm LVIDd: 4.93 3.9-5.3/4.2-5.9 cm LVIDd Index: 3.10 2.4-3.2/2.2-3.1 cm/m2 LVIDs: 3.20 2.0-3.6 cm LVPWd: 0.78 0.7-1.1 cm LA Diam: 3.50 2.7-3.8/3.0-4.0 cm LAIDs Index: 2.20 1.5-2.3 cm/m2 LV Mass: 168.98 67-162/88-224 g LV Mass Index: 106.27 43-95/49-115 g/m2 LVOT Diam: 1.90 3.0+(-)1.3 cm 2D Systolic Function EF 4C: 53.30 >55% EF 2C: 64.70 >55% EF BiP: 60.30 >55% Mitral Valve MV Pk E: 0.93 MV PK A: 0.89 MV Decel Time: 286.00 E/A: 1.00 E'Lateral: 8.92 E'Medial: 7.18 E/E' Med: 13.00 E/E' Lat: 10.50 PHT: 84.00 MVA PHT: 2.62 Decel Dent: 3.27 Aortic Valve AoV Pk Jovany: 1.27 AoV Mn Jovany: 0.90 AoV VTI: 0.30 AoV Pk Grad: 6.00 Aov Mn Grad: 4.00 UMER Cont.VTI: 2.21 AI Pk Jovany: 3.90 AI Dent: 1.84 LVOT LVOT Pk Jovany: 0.93 LVOT Mn Jovany: 0.74 LVOT VTI: 0.23 LVOT Pk Grad: 3.00 LVOT Mn Grad: 2.00 LVOT Diam: 1.90 LVOT Area: 2.84 Diastolic Function MV Pk E: 0.93 MV Pk A: 0.89 E/A: 1.00 E'Medial: 7.18 E/E' Med: 13.00 E' Laterial: 8.92 E/E' Lat: 10.50 Right Ventricle TAPSE (mm): 20.00 TVS' Jovany: 11.20 Tricuspid Valve TR Pk Jovany: 1.90 TR Pk Grad: 14.00 RA Press: 8.00 RVSP: 22.00 Great Vessels Aorta Sinus of Valsalva: 3.00 2.0-3.5 cm Ao Asc: 3.10 2.1-3.4 cm Pulmonary Valve PV Pk Jovany: 0.90 Peak PV Grad: 3.00 Updated in Other Vendor System with Status of Final Chris Hunter MD electronically signed on 01/03/2024 2:45:44 PM with status of Final
--- NOTE | 2024-01-01 07:58 | CA_ITS ---
Acquisition Time: 2024-01-01 09:04:10 Total Exercise Time: 00:09:35 Test Indications: CHEST PAIN Medications: Protocol: ROSSY Max HR: 146 BPM 86% of Pred: 169 BPM Max BP: 124/050 mmHG Max Work Load: 9.0 METS Exercise stress test exercise 9 min 35 sec of Rossy protocol achieving 86% MPHR, with mild to moderate SOB, without chest pains, without arrhythmias, with normotensive response to exericse, without EKG changes. Nuclear images pending. Breathing returned to baseline with rest. Test reviewed with Dr. Hunter. Referred By: Abdelrahman Ricketts Overread By: Belinda Rankin
== END ==
LOC: HO.CARD 07:53
PROVIDERS: PCP Student in an Organized Health Care Education/Training Program; Visit Provider Internal Medicine
DX: R07.2 Precordial pain (principal); Q21.0 Ventricular septal defect
CPT/HCPCS: 78452; 93017; 93306; A9500

== ENCOUNTER → 2024-01-01 07:58 | Outpatient (BNV) | payer MEDICAID, SELFPAY | PROVIDERS: PCP Student in an Organized Health Care Education/Training Program; Visit Provider Nurse Practitioner | DX: R07.9 Chest pain, unspecified (principal) | CPT/HCPCS: 78452; 93016; 93018; 93303 ==

== ENCOUNTER 2024-01-04 13:28 | Outpatient (AMB) | payer MEDICAID, SELFPAY ==
--- NOTE | 2024-01-04 13:42 | MHC.OFFVIS ---
Intake Visit Reasons: recurrent UTI/microscopic hematuria Intake Note: New Patient presents for initial visit for recurrent uti and microscopic hematuria Urology Medications: none Blood Thinner: none Smoker: never PVR: 0ml's Telecommunications Project Manager Required: No Accompanied by: Self / Same As Patient Allergies sulfamethoxazole [From Bactrim] Allergy (Intermediate, Verified 01/04/24 14:10) Facial Swelling trimethoprim [From Bactrim] Allergy (Intermediate, Verified 01/04/24 14:10) Facial Swelling Medication List - Last Reconciled 01/04/24 by FANI Jaramillo- albuterol sulfate 90 mcg/actuation 2 inhalations inhalation Q6H PRN azelastine 1 spray intranasal BID budesonide-formoterol 160-4.5 mcg/actuation (Symbicort) 2 puffs inhalation BID PRN celecoxib 200 mg PO BID dicyclomine 10 mg PO TID estradiol 0.01%(0.1mg/gram) pea sized amount to urethra daily x1 month then 3 times a week thereafter 30 days folic acid 1 mg PO DAILY hydrocortisone 1% (Anti-Itch (hydrocortisone)) 1 appl topical BID hydroxyzine HCl 25 mg PO DAILY omeprazole 40 mg PO DAILY@0630 simvastatin 10 mg PO DAILY walker Folding Front wheeled walker HPI Comments Details: Sade is a very pleasant 53-year-old female patient of Dr. Abdi. She has a past medical history of ventricular septal defect, cellulitis, pulmonary embolism, DVT, sleep apnea, high cholesterol, asthma, and hypertension. She presents to the office today as a new patient for recurrent urinary tract infections. In discussion with the patient today she reports having had multiple urinary tract infections since December of last year and following up with her PCP at which time recommendation was made for urology referral for further assessment evaluation. In review of patient's chart it appears patient with positive urine cultures 01/19 Klebsiella pneumoniae/Citrobacter farmeri, 08/20 Klebsiella aerogenes, 08/20 Klebsiella aerogenes, 12/21 Klebsiella pneumoniae. When asked she denies any history of constipation and or bowel issues. She reports being menopausal for many years now. When asked she continues to report lower urinary pressure and dysuria. In office urinalysis results reviewed with the patient today negative leukocytes negative nitrates 3+ microscopic blood. We discussed at length potential causes for lower urinary tract symptoms patient is experiencing as well as recurrent urinary tract infections. We discussed obtaining retroperitoneal ultrasound for further assessment evaluation. She otherwise denies incontinence, visible/gross hematuria, foul smelling urine, changes to urinary stream, flank pain, fever, and or chills. [facility] Medical History VSD (ventricular septal defect) Infection associated with internal right knee prosthesis Cellulitis History of pulmonary embolism History of DVT (deep vein thrombosis) Post-traumatic osteoarthritis of right knee Sleep apnea High cholesterol Asthma HTN (hypertension) Surgical History Status post total knee replacement, right History of bunionectomy of both great toes Hx of gastric bypass History of laparoscopic cholecystectomy History of H/O right knee surgery Family History Father Heart problem Mother Heart problem Social History Household Members: Spouse Housing: House Are you a primary care program director to a significant other at home: No Do you presently have visiting nurse or other home services: No Alcohol intake: never Patient Tobacco Use Status: Never used Tobacco service: No Current occupational status: unemployed Current occupation: rt handed. Review of Systems Const All systems reviewed & are unremarkable except as noted in HPI and below Physical Exam Const General: cooperative, healthy appearing, comfortable, no acute distress, well developed, alert and awake Orientation/consciousness: patient oriented x3 Limitations: no limitations HEENT Head: Yes normal to inspection, Yes normocephalic and Yes atraumatic Ears: hearing grossly normal bilaterally Eyes General: appearance normal, both eyes and all related structures Neck Neck: Yes normal visual inspection and Yes trachea midline Chest Chest palpation & inspection: normal inspection of the chest Resp Effort & Inspection: normal respiratory effort and able to speak in complete sentences Cardio Rate: regular rate GI Inspection: Yes normal to inspection General: Yes no CVA tenderness Back/Spine/Pelvis Back: no CVA tenderness Skin General skin exam: no rashes or lesions noted Neuro General: patient oriented x3 Extrem General: Yes normal to inspection Psych Appearance: grossly normal and well kempt Mental Status: mental status grossly normal Speech and movement: Normal speech and movement present and Clear speech present Affect: normal affect Attitude: cooperative Thought process: Normal thought process present Thought content: Normal thought content present Insight: Fair insight present (Psych) Judgement: Fair judgement present (Psych) Office Procedures Post Void Residual Post Residual Void Post Void Residual (PVR): 0 [id number]-[id number] Void Residual by ultrasound Results AMB Urinalysis, Automated UA Leukoctes 0 Shira/uL Last Edit by [employer] on 01/04/24 14:05 UA Nitrite Last Edit by [employer] on 01/04/24 14:05 UA Urobilinogen 0.2 mg/dL Last Edit by [employer] on 01/04/24 14:05 UA Protein 15 mg/dL Last Edit by [employer] on 01/04/24 14:05 UA pH 6.0 Last Edit by [employer] on 01/04/24 14:05 UA Blood 200 Kai/uL Last Edit by [employer] on 01/04/24 14:05 UA Specific Bow 1.025 Last Edit by [employer] on 01/04/24 14:05 UA Ketone Last Edit by [employer] on 01/04/24 14:05 UA Bilirubin 0 mg/dL Last Edit by [employer] on 01/04/24 14:05 UA Glucose 0 mg/dL Last Edit by [employer] on 01/04/24 14:05 Results Reviewed Results Reviewed: Laboratory Last Values Urine pH (Auto) 6.0 01/04/24 14:04 Specific Bow (Auto) 1.025 01/04/24 14:04 Urine Protein (Auto) 15 mg/dL 01/04/24 14:04 Glucose (UA)(Auto) 0 mg/dL 01/04/24 14:04 Urine Blood (Auto) 200 Kai/uL 01/04/24 14:04 Urine Bilirubin (Auto) 0 mg/dL 01/04/24 14:04 Urine Urobilinogen (Auto) 0.2 mg/dL 01/04/24 14:04 Leukocyte Esterase (Auto) 0 Shira/uL 01/04/24 14:04 Assessment & Plan Assessment & Plan (1) Dysuria: Code(s): R30.0 - Dysuria Category: Medical (2) Recurrent UTI: Code(s): N39.0 - Urinary tract infection, site not specified Category: Medical (3) Microscopic hematuria: Code(s): R31.29 - Other microscopic hematuria Category: Medical (4) Lower urinary tract symptoms: Code(s): R39.9 - Unspecified symptoms and signs involving the genitourinary system Category: Medical Plan In office urinalysis results reviewed with the patient today; as noted above will send for urine culture and cytology. PVR 0ml's. Will obtain retroperitoneal ultrasound for further assessment evaluation. Start Estrace cream as discussed and prescribed. We discussed at length potential causes of lower urinary tract symptoms as well as recurrent urinary tract infections. Discussed UTI prevention with D mannose supplement, vitamin-C, increasing fluid intake, behavioral therapy with timed voiding, perineal hygiene and postcoital voiding, and management of constipation with stool softeners and increased fiber intake. Discussed possible near future in office cystoscopy for further assessment evaluation. Follow-up in 3 months with imaging to be completed prior; or sooner with any issues, concerns, and or questions. Orders: Orders AMB Post Void Residual by ultrasound Today N39.0 - Urinary tract infection, site not specified US retroperitoneal comp Today N39.0 - Urinary tract infection, site not specified, R30.0 - Dysuria, R31.29 - Other microscopic hematuria AMB Urinalysis Automated Today Z13.9 - Encounter for screening, unspecified Urine Cytology Today R31.29 - Other microscopic hematuria Medications: New estradiol 0.01%(0.1mg/gram) pea sized amount to urethra daily x1 month then 3 times a week thereafter 30 days 42.5 grams 3RF Patient Instructions: The patient had an opportunity to ask questions regarding the treatment plan. All questions were answered. Physical exam, labs, and imaging were discussed and reviewed in detail. As well as risks, benefits, and discussion of treatment choices. No major barriers to understanding were identified. The patient expressed understanding and agreement with the above treatment plan. The patient was made aware they should contact our office by phone for worsening of their current condition, the appearance of new symptoms, or with any questions or concerns. Compliance is encouraged with any medications and follow up testing that is ordered. It is a privilege to be allowed the opportunity to participate in? your urological care.? Again, if you have any questions or concerns If you have any questions or concerns please do not hesitate to contact me. The office is [phone]. This note is constructed using voice recognition software. While every effort has been made to ensure accuracy emergency dept tech errors may have been included. Yours sincerely, FANI Jaramillo-BRYAN Coding Level of Care Code New Pt Level 4 (72320) Diagnoses Dysuria R30.0 Recurrent UTI N39.0 Microscopic hematuria R31.29 Lower urinary tract symptoms R39.9 CPT Codes Post Residual Void - PVR CPT Code: 42240-Wsag Void Residual by ultrasound ([id number])
== END 2024-01-04 14:14 | disposition home or self-care (01) ==
PROVIDERS: PCP Student in an Organized Health Care Education/Training Program; Visit Provider Nurse Practitioner Family
DX: R30.0 Dysuria (principal); N39.0 Urinary tract infection, site not specified; R31.29 Other microscopic hematuria; R39.9 Unspecified symptoms and signs involving the genitourinary system; Z13.9 Encounter for screening, unspecified
CPT/HCPCS: 99204

== ENCOUNTER 2024-01-04 13:28 | Outpatient (REF) | payer MEDICAID, SELFPAY ==
[2024-01-04 16:31] LABS: Urine Cytology See Pathology rpt
== END 2024-01-04 13:29 | disposition home or self-care (01) ==
LOC: HO.LNP 13:28
PROVIDERS: PCP Student in an Organized Health Care Education/Training Program; Visit Provider Nurse Practitioner Family
DX: R31.29 Other microscopic hematuria (principal); R30.0 Dysuria; N39.0 Urinary tract infection, site not specified; N39.9 Disorder of urinary system, unspecified; Z13.9 Encounter for screening, unspecified
CPT/HCPCS: 51798; 81003; 88112; 99212

== ENCOUNTER 2024-03-25 09:51 | Outpatient (REF) | payer MEDICAID, SELFPAY | END 2024-03-25 09:52 | disposition home or self-care (01) | LOC: HO.US 09:51 | PROVIDERS: PCP Student in an Organized Health Care Education/Training Program; Visit Provider Nurse Practitioner Family | DX: N39.0 Urinary tract infection, site not specified (principal); R30.0 Dysuria; R31.29 Other microscopic hematuria | CPT/HCPCS: 76770 ==

== ENCOUNTER → 2024-03-25 09:53 | Outpatient (BNV) | payer MEDICAID, SELFPAY | PROVIDERS: PCP Student in an Organized Health Care Education/Training Program; Visit Provider Radiology Diagnostic Radiology | DX: N20.0 Calculus of kidney (principal) | CPT/HCPCS: 76770 ==

== ENCOUNTER 2024-04-05 11:34 | Outpatient (AMB) | payer MEDICAID, SELFPAY ==
--- NOTE | 2024-04-05 11:38 | MHC.OFFVIS ---
Intake Visit Reasons: 3m/US(set) Intake Note: Patient is present for Follow up Ultrasound Urology Med: Estradiol Antibiotic Allergy: None Blood Thinner: None Patient reports some bladder pain, some discomfort PVR:0ML Gaming Dealer Required: No Accompanied by: Self / Same As Patient Allergies sulfamethoxazole [From Bactrim] Allergy (Intermediate, Verified 04/05/24 14:07) Facial Swelling trimethoprim [From Bactrim] Allergy (Intermediate, Verified 04/05/24 14:07) Facial Swelling Medication List - Last Reconciled 04/05/24 by FANI Jaramillo- albuterol sulfate 90 mcg/actuation 2 inhalations inhalation Q6H PRN azelastine 1 spray intranasal BID budesonide-formoterol 160-4.5 mcg/actuation (Symbicort) 2 puffs inhalation BID PRN celecoxib 200 mg PO BID dicyclomine 10 mg PO TID estradiol 0.01%(0.1mg/gram) pea sized amount to urethra daily x1 month then 3 times a week thereafter 30 days folic acid 1 mg PO DAILY hydrocortisone 1% (Anti-Itch (hydrocortisone)) 1 appl topical BID hydroxyzine HCl 25 mg PO DAILY omeprazole 40 mg PO DAILY@0630 simvastatin 10 mg PO DAILY solifenacin (Vesicare) 5 mg PO DAILY 30 days walker Folding Front wheeled walker HPI Comments Details: Sade is a very pleasant 54-year-old female patient of Dr. Abdi. She has a past medical history of ventricular septal defect, cellulitis, pulmonary embolism, DVT, sleep apnea, high cholesterol, asthma, and hypertension. Of note, patient was seen approximately 3 months ago as a new patient for recurrent urinary tract infections at which time she was started on Estrace cream and a retroperitoneal ultrasound was ordered for further assessment evaluation. Unofficial retroperitoneal ultrasound results reviewed with the patient today bilateral kidneys with no hydronephrosis or renal masses. Nonobstructing 3 mm right renal calculi in the mid pole. Pre void bladder volume is approximately 350 mL. Postvoid bladder volume is approximately 30 mL. When asked she reports compliance with Estrace cream as prescribed. She does continue to report lower urinary bladder pressure as well as intermittent episodes of dysuria. In office urinalysis results reviewed with the patient today. Trace microscopic hematuria however this is significantly decreased since her last office visit here as previous UA noted 3+ microscopic hematuria. We discussed at length potential causes for lower urinary tract symptoms patient was experiencing as well as recurrent urinary tract infections. She otherwise denies incontinence, visible/gross hematuria, foul smelling urine, changes to urinary stream, flank pain, fever, and or chills. Urine cytology 01/20 Negative for high-grade urothelial carcinoma. She otherwise offers no other issues or concerns at this time. [facility] Medical History VSD (ventricular septal defect) Infection associated with internal right knee prosthesis Cellulitis History of pulmonary embolism History of DVT (deep vein thrombosis) Post-traumatic osteoarthritis of right knee Sleep apnea High cholesterol Asthma HTN (hypertension) Surgical History Status post total knee replacement, right History of bunionectomy of both great toes Hx of gastric bypass History of laparoscopic cholecystectomy History of H/O right knee surgery Family History Father Heart problem Mother Heart problem Social History Household Members: Spouse Housing: House Are you a primary hospice care consultant to a significant other at home: No Do you presently have visiting nurse or other home services: No Alcohol intake: never Patient Tobacco Use Status: Never used Tobacco service: No Current occupational status: unemployed Current occupation: rt handed. Review of Systems Const All systems reviewed & are unremarkable except as noted in HPI and below Physical Exam Const General: cooperative, healthy appearing, comfortable, no acute distress, well developed, alert and awake Orientation/consciousness: patient oriented x3 Limitations: no limitations HEENT Head: Yes normal to inspection, Yes normocephalic and Yes atraumatic Ears: hearing grossly normal bilaterally Eyes General: appearance normal, both eyes and all related structures Neck Neck: Yes normal visual inspection and Yes trachea midline Chest Chest palpation & inspection: normal inspection of the chest Resp Effort & Inspection: normal respiratory effort and able to speak in complete sentences Cardio Rate: regular rate GI Inspection: Yes normal to inspection General: Yes no CVA tenderness Back/Spine/Pelvis Back: no CVA tenderness Skin General skin exam: no rashes or lesions noted Neuro General: patient oriented x3 Extrem General: Yes normal to inspection Psych Appearance: grossly normal and well kempt Mental Status: mental status grossly normal Speech and movement: Normal speech and movement present and Clear speech present Affect: normal affect Attitude: cooperative Thought process: Normal thought process present Thought content: Normal thought content present Insight: Fair insight present (Psych) Judgement: Fair judgement present (Psych) Office Procedures Post Void Residual Post Residual Void Post Void Residual (PVR): 0 [id number]-[id number] Void Residual by ultrasound Results AMB Urinalysis, Automated UA Leukoctes 0 Shira/uL Last Edit by Marielos Brandt Kobi on 04/05/24 11:51 UA Nitrite Negative Last Edit by Marielos Brandt [facility] on 04/05/24 11:51 UA Urobilinogen 0.2 mg/dL Last Edit by Marielos Brandt [facility] on 04/05/24 11:51 UA Protein 0 mg/dL Last Edit by Marielos Brandt [facility] on 04/05/24 11:51 UA pH 6.0 Last Edit by Marielos Brandt [facility] on 04/05/24 11:51 UA Blood 10 Kai/uL Last Edit by Marielos Brandt [facility] on 04/05/24 11:51 UA Specific [place] 1.025 Last Edit by Marielos Brandt Kobi on 04/05/24 11:51 UA Ketone Negative Last Edit by Marielos Brandt [facility] on 04/05/24 11:51 UA Bilirubin 0 mg/dL Last Edit by CARLOS Porter on 04/05/24 11:51 UA Glucose 0 mg/dL Last Edit by Marielos Brandt [facility] on 04/05/24 11:51 Results Reviewed Results Reviewed: Laboratory Last Values Urine pH (Auto) 6.0 04/05/24 11:42 Specific [place] (Auto) 1.025 04/05/24 11:42 Urine Protein (Auto) 0 mg/dL 04/05/24 11:42 Glucose (UA)(Auto) 0 mg/dL 04/05/24 11:42 Urine Ketones (Auto) Negative 04/05/24 11:42 Urine Blood (Auto) 10 Kai/uL 04/05/24 11:42 Urine Nitrite (Auto) Negative 04/05/24 11:42 Urine Bilirubin (Auto) 0 mg/dL 04/05/24 11:42 Urine Urobilinogen (Auto) 0.2 mg/dL 04/05/24 11:42 Leukocyte Esterase (Auto) 0 Shira/uL 04/05/24 11:42 Assessment & Plan Assessment & Plan (1) Lower urinary tract symptoms: Code(s): R39.9 - Unspecified symptoms and signs involving the genitourinary system Category: Medical (2) Microscopic hematuria: Code(s): R31.29 - Other microscopic hematuria Category: Medical (3) Dysuria: Code(s): R30.0 - Dysuria Category: Medical (4) Recurrent UTI: Code(s): N39.0 - Urinary tract infection, site not specified Category: Medical Plan In office urinalysis results reviewed with the patient today; as noted above; will send for microgen; will await results for potential treatment We discussed at length potential causes of microscopic hematuria, lower urinary tract symptoms patient was experiencing as well as recurrent urinary tract infections. Recent unofficial retroperitoneal ultrasound results reviewed with the patient today; as noted above. Previous urine cytology results reviewed with the patient today; as noted above. Continue Estrace cream. Start VESIcare as discussed and prescribed. We discussed potential near future in office cystoscopy and or urodynamics for further assessment evaluation. Discussed UTI prevention with D mannose supplement, vitamin-C, increasing fluid intake, behavioral therapy with timed voiding, perineal hygiene and postcoital voiding, and management of constipation with stool softeners and increased fiber intake. Follow-up in 1-2 months with PVR; or sooner with any issues, concerns, and or questions. Orders: Orders AMB Urinalysis Automated Today Z13.9 - Encounter for screening, unspecified AMB Post Void Residual by ultrasound Today R39.9 - Unspecified symptoms and signs involving the genitourinary system Medications: New solifenacin (Vesicare) 5 mg PO DAILY 30 tabs 3RF 30 days Patient Instructions: The patient had an opportunity to ask questions regarding the treatment plan. All questions were answered. Physical exam, labs, and imaging were discussed and reviewed in detail. As well as risks, benefits, and discussion of treatment choices. No major barriers to understanding were identified. The patient expressed understanding and agreement with the above treatment plan. The patient was made aware they should contact our office by phone for worsening of their current condition, the appearance of new symptoms, or with any questions or concerns. Compliance is encouraged with any medications and follow up testing that is ordered. It is a privilege to be allowed the opportunity to participate in? your urological care.? Again, if you have any questions or concerns If you have any questions or concerns please do not hesitate to contact me. The office is [phone]. This note is constructed using voice recognition software. While every effort has been made to ensure accuracy change management manager errors may have been included. Yours sincerely, ANANYA Jaramillo Coding Level of Care Code Est Pt Level 4 (26988) Diagnoses Lower urinary tract symptoms R39.9 Microscopic hematuria R31.29 Dysuria R30.0 Recurrent UTI N39.0 CPT Codes Post Residual Void - PVR CPT Code: 05557-[id number] Void Residual by ultrasound ([id number])
== END 2024-04-05 12:04 | disposition home or self-care (01) ==
PROVIDERS: PCP Student in an Organized Health Care Education/Training Program; Visit Provider Nurse Practitioner Family
DX: R39.9 Unspecified symptoms and signs involving the genitourinary system (principal); R31.29 Other microscopic hematuria; R30.0 Dysuria; N39.0 Urinary tract infection, site not specified; Z13.9 Encounter for screening, unspecified
CPT/HCPCS: 99214

== ENCOUNTER → 2024-04-05 11:34 | Outpatient (BNVA) | payer MEDICAID, SELFPAY | PROVIDERS: PCP Student in an Organized Health Care Education/Training Program; Visit Provider Nurse Practitioner Family | DX: R31.29 Other microscopic hematuria (principal); R30.0 Dysuria; N39.0 Urinary tract infection, site not specified; Z87.442 Personal history of urinary calculi | CPT/HCPCS: 51798; 81003; 99212 ==

== ENCOUNTER 2024-04-21 17:24 | Outpatient (REF) | payer MEDICAID, SELFPAY ==
--- OUTSIDE RECORDS SUMMARY | 2024-04-21 19:15 | XMS_ITS | Continuity of Care Document ---
Author Organization [facility] Miley alisia Address [address] [place] [address] [address] [place] [address]- Care Team Providers Care Polishing Machine Tender Name Role Phone Jackie Abdi MD Primary Care Physician [place] [facility] 03/02/24 - 04/01/24 [facility] [address] [address] Encounter Type: Triage Allergies, Adverse Reactions, Alerts No Known Allergies Immunizations Given and Recorded Vaccine Date Status Refusal Reason hepatitis B adult vaccine 02/08/21 Recorded hepatitis B adult vaccine 01/09/21 Recorded influenza virus vaccine, inactivated 01/09/21 Jac rded influenza virus vaccine, inactivated 02/03/20 Jac rded influenza virus vaccine, inactivated 01/07/19 Give n influenza virus vaccine, inactivated 01/15/18 Give n influenza virus vaccine, inactivated 02/21/17 Give n influenza virus vaccine, inactivated 01/25/15 Jac rded SARS-CoV-2 (COVID-19) mRNA BNT-162b2 vac 08/22/20 Recorded SARS-CoV-2 (COVID-19) mRNA BNT-162b2 vac 08/01/20 Recorded pneumococcal 23-valent vaccine 02/21/17 Given tetanus/diphtheria/pertussis, acel(Tdap) 01/19/12 Recorded Medications Carafate 1 gm/10 ml oral suspension 10 mL = 1 Gm, By Mouth, 3 times a day before meals and bedtime, 0 Refills, Maintenance, 07/24/21 8:59:00 AM EDT, Partial fill upon patient request if the prescription is for a schedule II opioid drug. Start Date: 07/24/21 Status: Ordered Repeat number: 1 celecoxib 200 mg oral capsule TAKE 1 CAPSULE BY MOUTH TWICE DAILY Start Date: 07/22/21 Status: Ordered Repeat number: 1 hydrOXYzine hydrochloride 25 mg oral tablet TAKE ONE TABLET DAILY Start Date: 07/22/21 Status: Ordered Repeat number: 1 midodrine 10 mg oral tablet 1 tablet = 10 mg, By Mouth, 2 times a day, 0 Refills, Maintenance, 07/24/21 8:59:00 AM EDT, Partial fill upon patient request if the prescription is for a schedule II opioid drug. Start Date: 07/24/21 Status: Ordered Repeat number: 1 pantoprazole 40 mg oral delayed release tablet 1 tablet = 40 mg, By Mouth, Daily, # 30 tablet, 0 Refills, Maintenance, 07/22/21 4:43:00 PM EDT, EC Tablet Start Date: 07/22/21 Status: Ordered Quantity: 30.0 Unit: tablet Repeat number: 1 PARoxetine 10 mg oral tablet 10 mg, 1, tablet, By Mouth, Daily, # 30 tablet, Refills 0, Maintenance, 07/22/21 4:42:00 PM EDT, Partial fill upon patient request if the prescription is for a schedule II opioid drug. Start Date: 07/22/21 Status: Ordered Quantity: 30.0 Unit: tablet Repeat number: 1 ProAir HFA 90 mcg/inh inhalation aerosol with adapter 2, puffs, Inhalation, Every 6 hours, PRN, Maintenance, 09/29/18 3:31:00 PM EDT, Aerosol Start Date: 09/29/18 Status: Ordered Repeat number: 1 simvastatin 10 mg oral tablet 10 mg, 1, tablet, By Mouth, Daily at bedtime, # 30 tablet, Refills 0, Maintenance, 07/22/21 4:42:00 PM EDT, Partial fill upon patient request if the prescription is for a schedule II opioid drug. Start Date: 07/22/21 Status: Ordered Quantity: 30.0 Unit: tablet Repeat number: 1 Symbicort 80mcg/4.5mcg Inhaler 2, puffs, Inhalation, 2 times a day, # 6.9 Gm, Refills 0, Maintenance, 05/02/20 11:28:00 AM EST, Aerosol Start Date: 05/02/20 Status: Ordered Quantity: 6.9 Unit: g Repeat number: 1 Problem List Condition Confirmation Course Effective Dates Status Health St atus Informant Abdominal bloating Confirmed Active Chronic female pelvic pain Confirmed Active Epigastric pain Confirmed Active History of anxiety Confirmed Active H/O heartburn Confirmed Active Pain, joint, knee, right Confirmed Active Abnormal liver enzymes Confirmed Active Low back pain Confirmed Active Myofascial pain Confirmed Active Chronic RUQ pain Confirmed Active SDH - Subdural hematoma Confirmed Active Lack of adequate sleep Confirmed Active Straining with stools Confirmed Active Mid back pain Confirmed Active Social History Social History Type Response Smoking Status Never smoker entered on: 02/23/15 Sex Sex Representation Female (finding) Patient Care team information Care Team Personnel Name: Craig Boo Position: [facility] Outreach Member Role: Lifetime Consulting Physician Name: Rachelle Madrigal RN Position: [facility] RN Member Role: Primary Care Nurse Name: Charlene Hyman RN Position: [facility] RN Member Role: Primary Care Nurse Name: Samantha Santizo NP Position: [facility] PCO Associate Professional Member Role: Primary Care Nurse Address: [address] [place] [phone]- Telecom: Name: Kathleen Otero RN Position: [facility] SN RN Member Role: Primary Care Nurse Name: Erum Wolf RN Position: [facility] RN Member Role: Primary Care Nurse Name: Guadalupe Reyes RN Position: [facility] RN Member Role: Primary Care Nurse Name: Mindy Arriaga RN Position: [facility] RN Member Role: Primary Care Nurse Name: Pooja Sheth RN Position: [facility] Office Staff Member Role: Primary Care Nurse Name: Nadia Lubin NP Position: [facility] Associate Professional Member Role: Primary Care Nurse Name: Collins Ackerman MD Position: [facility] Renal MD Member Role: Lifetime Consulting Physician Address: [address] [place] [address] [address] [facility] [place] [address]- [place] Telecom: Name: Monica Valentin RN Position: [facility] Hospital Show Host Or Hostess Member Role: Primary Care Nurse Name: Rai Meyer RN Position: [facility] RN Member Role: Primary Care Nurse Name: Zakiya Connors RN Position: [facility] Onco RN Member Role: Primary Care Nurse Name: Jordy Holguin RN Position: [facility] Outreach Member Role: Primary Care Nurse Name: Ketan RN, Zeynep Position: [facility] ED RN W/OE and Tasks Member Role: Primary Care Nurse Name: Leidy Nichols RN Position: [facility] RN Member Role: Primary Care Nurse Name: Jacob Borden RN Position: [facility] RN Member Role: Primary Care Nurse Name: Samaria Dumont RN Position: [facility] ED RN W/OE and Tasks Member Role: Primary Care Nurse Name: Tanya Hidalgo RN Position: [facility] AMB Nurse Member Role: Primary Care Nurse Name: Jackie Abdi MD Position: [facility] Outreach Member Role: PCP Address: [address] [place] [phone]- [place] Telecom: Name: Dina Heath RN Position: [facility] RN Member Role: Primary Care Nurse Name: Radha Bergeron RN Position: [facility] Show Host Or Hostess Member Role: Primary Care Nurse Name: Socorro Arana RN Position: [facility] RN Member Role: Primary Care Nurse Name: Brenda Enrique Position: [facility] RN Member Role: Primary Care Nurse Name: Aby Howard RN Position: [facility] AMB Nurse Member Role: Primary Care Nurse Name: Macarena Black RN Position: [facility] ED RN W/OE and Tasks Member Role: Primary Care Nurse Name: Blane Cameron MD Position: [facility] Renal MD Member Role: Lifetime Consulting Physician Address: [address] [place], [place] [id number] [facility] [place] [address]- [place] Telecom: Name: Nighat Ryder RN Position: [facility] SN RN Member Role: Primary Care Nurse Name: Shakira Crawford RN Position: [facility] RN Member Role: Primary Care Nurse Name: Priscilla Sargent RN Position: [facility] Show Host Or Hostess Member Role: Primary Care Nurse Name: Samaria Nichols RN Position: [facility] RN Member Role: Primary Care Nurse Care Team Related Persons Name: ASH ABBASI Insurance Providers Guarantor name: RACHEL Thinkful Plan Information #: 1 Payer: [facility] Member Number: NA Policy Number: NA Group Number: NA
[2024-04-21 20:15] LABS: Bacterial Vaginosis PCR NEGATIVE (Negative); Candida Group PCR DETECTED (Not Detect); Candida glab krusei PCR NOT DETECTED (Not Detect); Trichomonas vaginalis PCR NOT DETECTED (Not Detect)
== END 2024-04-21 17:25 | disposition home or self-care (01) ==
LOC: HO.HHCLNP 17:24
PROVIDERS: Visit Provider Advanced Practice Midwife
DX: N89.8 Other specified noninflammatory disorders of vagina (principal)
CPT/HCPCS: 81515

== ENCOUNTER → 2024-04-26 14:59 | Outpatient (BNV) | payer MEDICAID, SELFPAY | PROVIDERS: PCP Student in an Organized Health Care Education/Training Program; Visit Provider Radiology Diagnostic Radiology | DX: N94.10 Unspecified dyspareunia (principal) | CPT/HCPCS: 76830; 76856 ==

== ENCOUNTER 2024-06-02 15:58 | Outpatient (REF) | payer MEDICAID, SELFPAY ==
--- OUTSIDE RECORDS SUMMARY | 2024-06-02 19:16 | XMS_ITS | Encounter Summary ---
Author Organization [employer] [facility] Address [address] [place] [address] [address] [place] [address] Care Team Providers Care Shift Superintendent Caustic Cresylate Name Role Phone Jackie Abdi MD Primary Care Provider [phone] Reason for Visit * Reason Onset Date Comments Med Refill 12/05/2022 Encounter Details Date Type Department Care Team (Late st Contact Info) Description 12/05/2022 Refill [facility] PEDS [address] [place] [address] Abby Duran MD Social History Tobacco Use Types Packs/Day Years Used Date Smoking Tobacco: Never Passive Smoke Exposure: Never Smokeless Tobacco: Never Alcohol Use Standard Drinks/Week Comments Never 0 (1 standard drink = 0.6 oz pur e alcohol) Depression Answer Date Recorded Patient Health Questionnaire-9 Score 21 06/26/2022 Depression Answer Date Recorded Patient Health Questionnaire-2 Score 6 06/26/2022 Comments Unknown Sex and Gender Information Value Date Recorded Sex Assigned at Female 01/27/2022 10:21 AM EDT Legal Sex Female 10:21 AM EDT Gender Identity Female 01/27/2022 10:21 AM EDT Sexual Orientation Straight 06/27/2022 9: 00 AM EDT documented as of this encounter Plan of Treatment Upcoming Encounters Date Type Department Care Team (Late st Contact Info) Description 06/21/2024 10:00 AM EDT Office Visit [facility] MED [facility] PEDS [address] [place] [address] Jackie Abdi MD [address] [place] [address] documented as of this encounter Visit Diagnoses Not on filedocumented in this encounter Additional Health Concerns Assessment Noted Time PHQ-9 Depression Total Score: 21 023 8:57 AM EDT documented as of this encounter Care Teams Shift Superintendent Caustic Cresylate Relationship Specialty Start Date End Date Jackie Abdi MD [address] [place] [address] PCP - General Family Medicine 04/29/13 documented as of this encounter
--- OUTSIDE RECORDS SUMMARY | 2024-06-02 19:16 | XMS_ITS | Encounter Summary ---
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 I have keyon andrade 06/03/[address] you li ve. Do you have problems with any of the following? None of the above 06/03/2023 Food Insecurity Answer Date Recorded Within the past 12 months, y ou worried that your food would run out before you got money to buy more: Never True 01/15/2023 Within the past 12 months,th e food you bought just didn't last and you didn't have enough money to get more: Never True Transportation Answer Date Recorded In the past 12 months, has l ack of transportation kept you from medical appts, meetings, work or from getting things needed for daily living? No 01/15/2023 Utilities Answer Date Recorded In the past 12 months, has t he electric, gas, oil or water [employer] threatened to shut off services in your home? No 06/03/2023 Depression Answer Date Recorded Patient Health Questionnaire-2 Score 6 06/26/2022 Comments Unknown Sex and Gender Information Value Date Recorded Sex Assigned at Female 01/27/2022 10:21 AM EDT Legal Sex Female 10:21 AM EDT Gender Identity Female 01/27/2022 10:21 AM EDT Sexual Orientation Straight 06/27/2022 9: 00 AM EDT documented as of this encounter Miscellaneous Notes * Telephone Encounter - Lucinda Reyes - 09/09/2023 9:51 AM EDT Patient called in stating hat [facility] the referral that was given to her. But she states that the 3 offices that were given to her are not currently taking patients and she is unsure if there is somewhere else that she can go. documented in this encounter Plan of Treatment Upcoming Encounters Date Type Department Care Team (Late st Contact Info) Description 06/21/2024 10:00 AM EDT Office Visit [facility]EDS [address] [place] [address] Jackie Abdi MD [address] [place] [address] documented as of this encounter Visit Diagnoses Not on filedocumented in this encounter Additional Health Concerns Assessment Noted Time PHQ-9 Depression Total Score: 21 023 8:57 AM EDT documented as of this encounter Care Teams Marketing And Communications Officer Relationship Specialty Start Date End Date Jackie Abdi MD [address] [place] [id number] PCP - General Family Medicine 04/29/13 documented as of this encounter
--- OUTSIDE RECORDS SUMMARY | 2024-06-02 19:16 | XMS_ITS | Encounter Summary ---
Author Organization [employer] Address 75 [facility] 7t [place] [address] Care Team Providers Care Welt Maker Name Role Phone Jackie Abdi MD Primary Care Provider [phone] Reason for Visit * Reason Comments Med Refill Encounter Details Date Type Department Care Team ([facility] st Contact Info) Description 09/16/2023 Refill [facility] CHC MED & PEDS [address] [place], [place] [phone] Jackie Abdi MD 505 [place] [address] Acute pain of right shoulder Social History Tobacco Use Types Packs/Day Years [...] t he electric, gas, oil or water company threatened to shut off services in your [...] Description 06/21/2024 10:00 AM EDT Office Visit [facility] MED & PEDS [address] [place] [address] Jackie Abdi MD [address] [place] [address] documented as of this encounter Visit Diagnoses Diagnosis Acute pain of right shoulder documented in this encounter Additional Health Concerns Assessment Noted Time PHQ-9 Depression Total Score: 21 023 8:57 AM EDT documented as of this encounter Care Teams Welt Maker Relationship Specialty Start Date End Date Jackie Abdi MD [address] [place] [address] PCP - General Family Medicine 04/29/13 documented as of this encounter
--- OUTSIDE RECORDS SUMMARY | 2024-06-02 19:16 | XMS_ITS | Encounter Summary ---
Author Organization [employer] Address 75 [facility] 7t [place] [address] Care Team Providers Care Construction Representative Name Role Phone Jackie Abdi MD Primary Care Provider [phone] Reason for Visit * Reason Onset Date Comments Med Refill 02/26/2023 Encounter Details Date Type Department Care Team (Late st Contact Info) Description 02/26/2023 Refill [facility] CHC MED & PEDS [address] [place] [address] Jackie Abdi MD [address] [place] [address] Social History Tobacco Use Types Packs/Day Years Used Date Smoking Tobacco: Never Passive Smoke Exposure: Never Smokeless Tobacco: Never Alcohol Use Standard Drinks/Week Comments Never 0 (1 standard drink = 0.6 oz pur e alcohol) Depression Answer Date Recorded Patient Health Questionnaire-9 Score 21 06/26/2022 Housing Stability Answer Date Recorded What is your housing situation today? I have keyon andrade 01/15/[address] you li ve. Do you have problems with any of the following? I am not sure 01/15/2023 Food Insecurity Answer Date Recorded Within the [...] to shut off services in your home? Yes 01/03/2023 Depression Answer Date Recorded Patient Health Questionnaire-2 [...] Description 06/21/2024 10:00 AM EDT Office Visit [facility] MED & PEDS [address] [place] [address] Jackie Abdi MD [address] [place] [address] documented as of this encounter Visit Diagnoses Not on filedocumented in this encounter Additional Health Concerns Assessment Noted Time PHQ-9 Depression Total Score: 21 023 8:57 AM EDT documented as of this encounter Care Teams Construction Representative Relationship Specialty Start Date End Date Jackie Abdi MD [address] [place] [address] PCP - General Family Medicine 04/29/13 documented as of this encounter
--- OUTSIDE RECORDS SUMMARY | 2024-06-02 19:16 | XMS_ITS | Encounter Summary ---
Author Organization [employer] Address [address] [place] [address] 7t [place] [address] Care Team Providers Care Pharmacy Technology Instructor Name Role Phone Jackie Abdi MD Primary Care Provider [phone] Encounter Details Date Type Department Care Team (Late st Contact Info) Description 10/01/2022 Abstract [facility] MEDICINE [address] [place] [address] Jackie Abdi MD 505 [place] [address] Social History Tobacco Use Types Packs/Day Years [...] Description 06/21/2024 10:00 AM EDT Office Visit [facility] CHC MED & PEDS 505 [place] [address] Jackie Abdi MD 505 [place] [address] documented as of this encounter Visit Diagnoses Not on filedocumented in this encounter Additional Health Concerns Assessment Noted Time PHQ-9 Depression Total Score: 21 023 8:57 AM EDT documented as of this encounter Care Teams Pharmacy Technology Instructor Relationship Specialty Start Date End Date Jackie Abdi MD 230 [place] [address] PCP - General Family Medicine 04/29/13 documented as of this encounter
--- OUTSIDE RECORDS SUMMARY | 2024-06-02 19:16 | XMS_ITS | Encounter Summary ---
Author Organization [employer] Address [address] [place] [address] 7 [place] [address] Care Team Providers Care Engraving Press Operator Name Role Phone Jackie Abdi MD Primary Care Provider [phone] Reason for Visit * Reason Onset Date Comments Med Refill 10/24/2022 Encounter Details Date Type Department Care Team (Late st Contact Info) Description 10/24/2022 Refill [facility] MEDICINE 230 [place] [address] Jackie Abdi MD 505 [place] [address] Social History Tobacco Use Types Packs/Day Years [...] Description 06/21/2024 10:00 AM EDT Office Visit [facility] CHC MED & PEDS 505 [place], [place] [phone] Jackie Abdi MD [address] [place], [place] [phone] documented as of this encounter Visit Diagnoses Not on filedocumented in this encounter Additional Health Concerns Assessment Noted Time PHQ-9 Depression Total Score: 21 023 8:57 AM EDT documented as of this encounter Care Teams Engraving Press Operator Relationship Specialty Start Date End Date Jackie Abdi MD [address] [place] [address] [place] [address] PCP - General Family Medicine 04/29/13 documented as of this encounter
--- OUTSIDE RECORDS SUMMARY | 2024-06-02 19:16 | XMS_ITS | Encounter Summary ---
Author Organization [employer] Address 75 [facility] 7t [place] [address] Care Team Providers Care Sprinkler Fitter Helper Name Role Phone Jackie Abdi MD Primary Care Provider [phone] Encounter Details Date Type Department Care Team (Late Contact Info) Description 08/28/2022 Orders Only [facility] MED & PEDS 505 [place], [place] [phone] Ronnell Sanderson MD 505 [place] [address] Social History Tobacco Use Types Packs/Day Years [...] Orientation Straight 06/27/2022 9: 00 AM EDT COVID-19 Exposure Response Date Recorded In the last 10 days, have yo u been in contact with someone who was confirmed or suspected to have Coronavirus/COVID-19? No / Unsure 08/26/2022 2:04 PM EDT documented as of this encounter Plan of Treatment Upcoming Encounters Date Type Department Care Team (Late Contact Info) Description 06/21/2024 10:00 AM EDT Office Visit [facility] MED & PEDS [address] [place] [address] Jackie Abdi MD [address] [place] [address] documented as of this encounter Visit Diagnoses Not on filedocumented in this encounter Additional Health Concerns Assessment Noted Time PHQ-9 Depression Total Score: 21 023 8:57 AM EDT documented as of this encounter Care Teams Sprinkler Fitter Helper Relationship Specialty Start Date End Date Jackie Abdi MD [address] [place] [address] PCP - General Family Medicine 04/29/13 documented as of this encounter"
--- OUTSIDE RECORDS SUMMARY | 2024-06-02 19:16 | XMS_ITS | Encounter Summary ---
Author Organization [employer] Address 75 [facility] 7t [place] [address] Care Team Providers Care Party Plan Sales Host/Hostess Name Role Phone Jackie Abdi MD Primary Care Provider [phone] Reason for Visit * Reason Comments Med Refill Encounter Details Date Type Department Care Team ([facility] st Contact Info) Description 09/01/2023 Refill [facility] CHC MED & PEDS 505 [place], [place] [phone] Ronnell Sanderson MD 505 [place] [address] Acute pain of right shoulder Social History [...] 10:00 AM EDT Office Visit [facility] MED & PEDS [address] [place] [address] Jackie Abdi MD 505 [place] [address] documented as of this encounter Visit Diagnoses Diagnosis Acute pain of right shoulder documented in this encounter Additional Health Concerns Assessment Noted Time PHQ-9 Depression Total Score: 21 023 8:57 AM EDT documented as of this encounter Care Teams Party Plan Sales Host/Hostess Relationship Specialty Start Date End Date Jackie Abdi MD [address] [place] [address] PCP - General Family Medicine 04/29/13 documented as of this encounter
--- OUTSIDE RECORDS SUMMARY | 2024-06-02 19:16 | XMS_ITS | Encounter Summary ---
Author Organization [employer] Address 75 [facility] 7t [place] [address] Care Team Providers Care Fitness Centre Manager Name Role Phone Jackie Abdi MD Primary Care Provider [phone] Reason for Visit * Reason Comments Med Refill Encounter Details Date Type Department Care Team ([facility] st Contact Info) Description 10/23/2023 Refill [facility] CHC MED & PEDS 505 [place], [place] [phone] Jackie Abdi MD 505 [place] [address] Social History Tobacco Use Types Packs/Day Years [...] 10:00 AM EDT Office Visit [facility] MED & PEDS [address] [place] [address] Jackie Abdi MD 505 [place] [address] documented as of this encounter Visit Diagnoses Not on filedocumented in this encounter Additional Health Concerns Assessment Noted Time PHQ-9 Depression Total Score: 21 023 8:57 AM EDT documented as of this encounter Care Teams Fitness Centre Manager Relationship Specialty Start Date End Date Jackie Abdi MD [address] [place] [address] PCP - General Family Medicine 04/29/13 documented as of this encounter
--- OUTSIDE RECORDS SUMMARY | 2024-06-02 19:16 | XMS_ITS | Encounter Summary ---
Author Organization [facility] [facility] Address [address] [place] [address] [address] [address] Care Team Providers Care Needle Bar Molder Name Role Phone Jackie Abdi MD Primary Care Provider [phone] Encounter Details Date Type Department Care Team (Late st Contact Info) Description 03/18/2022 Orders Only [facility] MED & PEDS [address] [place] [address] Marielos Hooks LPN Social History Tobacco Use Types Packs/Day Years Used Date Smoking Tobacco: Never Assessed Comments Unknown Sex and Gender Information Value [...] Description 06/21/2024 10:00 AM EDT Office Visit [facility] MED & PEDS [address] [place] [address] Jackie Abdi MD 505 [place] [address] documented as of this encounter Visit Diagnoses Not on filedocumented in this encounter Care Teams Needle Bar Molder Relationship Specialty Start Date End Date Jackie Abdi MD [address] [place] [address] PCP - General Family Medicine 04/29/13 documented as of this encounter
--- OUTSIDE RECORDS SUMMARY | 2024-06-02 19:16 | XMS_ITS | Encounter Summary ---
Author Organization [employer] Address 75 [facility] 7t [place] [address] Care Team Providers Care Sanitary Landfill Operator Name Role Phone Jackie Abdi MD Primary Care Provider [phone] Reason for Visit * Reason Comments Med Refill Encounter Details Date Type Department Care Team (Late Contact Info) Description 09/18/2022 Refill [facility] CHC MED & PEDS 505 [place], [place] [phone] Ronnell Sanderson MD 505 [place] [address] Mid-back pain, acute Social History Tobacco Use Types Packs/Day Years [...] Description 06/21/2024 10:00 AM EDT Office Visit [facility] CHC MED & PEDS 505 [place] [address] Jackie Abdi MD 505 [place] [address] documented as of this encounter Visit Diagnoses Diagnosis Mid-back pain, acute documented in this encounter Additional Health Concerns Assessment Noted Time PHQ-9 Depression Total Score: 21 023 8:57 AM EDT documented as of this encounter Care Teams Sanitary Landfill Operator Relationship Specialty Start Date End Date Jackie Abdi MD [address] [place] [phone] PCP - General Family Medicine 04/29/13 documented as of this encounter
--- OUTSIDE RECORDS SUMMARY | 2024-06-02 19:16 | XMS_ITS | Clinical Summary ---
Author Organization [address] [place] [address] [place] [phone] Phone Care Team Providers Care Child'S Nurse Name Role Phone Jackie Abdi MD Primary Care Provider [phone] Allergies No known active allergies Medications cholecalciferol (VITAMIN D-3) 1,250 mcg (50,000 unit) capsule Take 1 Capsule by mouth once a week. 4 Active MAGNESIUM CHLORIDE ORAL Take by mouth. A ctive multivitamin (MULTI-DAY ORAL) Take by mouth. Activ e omeprazole (PriLOSEC) [address] capsule TAKE 1 CAPSULE BY MOUTH TWICE DAILY 1 Active POTASSIUM ORAL Take by mouth as needed. Order by PCP - to take as a response to bloodwork. Pt vomits a lot and her potassium drops Active SIMVASTATIN ORAL Take by mouth. Activ e sucralfate (CARAFATE) 100 mg/mL suspension Take 10 mL by mouth 4 times daily. Take at least one dose at bedtime 4 Active wheat dextrin (BENEFIBER CLEAR SF, DEXTRIN, ORAL) Wheat Dextrin (Benefiber) Powder Take 4 g by mouth daily. 1 Active Active Problems Problem Noted Date Diagnosed Date Bile-induced gastritis 03/08/2024 Nausea and vomiting 03/08/2024 Overweight (BMI 25.0-29.9) 04/22/2021 Eating disorder 10/11/2020 Hypercholesteremia 10/11/2020 Obstructive sleep apnea 10/11/2020 Overview (03/08/2024): CPAP Gastroesophageal reflux dise ase with esophagitis without hemorrhage 05/03/2020 Immunizations Name Administration Dates Next Due Tdap Tetanus diptheria acell ular pertussis (Boostrix; Adacel) 7yo and older 01/19/2012 Surgical History Surgery Date Site/Laterality Comments OTHER SURGICAL HISTORY PROCEDURE: IN [facility] AID TIBIAL FRACTURE PROXIMAL UNICONDYLAR CHOLECYSTECTOMY PROCEDURE: IN LAPAROSCOPY SURG CHOLECYSTECTOMY BUNIONECTOMY PROCEDURE: BUNION SURGERY, SIMPLE REMOVAL SECTION PROCEDURE: IN DELIVERY ONLY Medical History Medical History Date Comments Hypercholesteremia DX:Hyperchole steremia Class 2 severe obesity due t o excess calories with serious comorbidity and body mass index (BMI) of 35.0 to 35.9 in adult ([facility]) 05/03/2020 DX:Class 2 severe obesity du e to excess calories with serious comorbidity and body mass index (BMI) of 35.0 to 35.9 in adult ([facility]) Gastroesophageal reflux dise ase with esophagitis without hemorrhage 05/03/2020 DX:Gastroesophageal ref lux disease with esophagitis without hemorrhage Eating disorder 10/11/2020 DX:Eating disord er Obstructive sleep apnea 10/11/2020 DX:Obstr uctive sleep apnea; COMMENT: CPAP Class 1 obesity due to exces s calories with serious comorbidity and body mass index (BMI) of 34.0 to 34.9 in adult 05/03/2020 DX:Class 1 obesit y due to excess calories with serious comorbidity and body mass index (BMI) of 34.0 to 34.9 in adult Esophageal reflux DX:Esophageal reflux Nausea and vomiting DX:Nausea an d vomiting Depressive disorder DX:Depressiv e disorder Bile-induced gastritis DX:Bile-i nduced gastritis Family History Medical History Relation Name Comments Stomach cancer Father Diabetes Mother Hypertension Mother Other: heart failure Mother Relation Name Status Comments Father Mother Alive Social History Tobacco Use Types Packs/Day Years Used Date Smoking Tobacco: Never Smokeless Tobacco: Never Alcohol Use Standard Drinks/Week Comments No 0 (1 standard drink = 0.6 oz pur e alcohol) Comments Unknown Sex and Gender Information Value Date Recorded Sex Assigned at Not on file Legal Sex Female 3:49 AM EST Gender Identity Not on file Sexual Orientation Not on file Obstetrics History Last Filed Vital Signs Vital Sign Reading Time Taken Comments Blood Pressure 134/79 12/17/2023 3:45 PM EDT Pulse 75 12/17/2023 3:45 PM EDT Temperature - - Respiratory Rate - - Oxygen Saturation - - Inhaled Oxygen Concentration - - Weight 66.2 kg (146 lb) 12/17/2023 3:45 PM EDT Height 149.9 cm (4' 11 ) 12/17/2023 3:45 PM EDT Body Mass Index 29.49 12/17/2023 3:45 PM EDT Plan of Treatment Upcoming Encounters Date Type Department Care Team (Late st Contact Info) Description 06/03/2024 2:40 PM EST Office Visit [facility] - [place] [address] [facility] [address] [place] [address] Artis Leyva PA [address] [facility] [address] [place] [address] 06/16/2024 3:45 PM EDT Office Visit Bariatric Surgery - [place] [address] [facility] [address] [place] [address] Aleksandar Heaton MD [address] [facility] [address] [place] [address] Health Maintenance Due Date Last Done Comments Breast Cancer Screening 1972 Hepatitis B Vaccines (1 of 3 - 19+ 3-dose series) 1991 Cervical Cancer Screening: P ap Smear 1993 DTaP,Tdap,and Td Vaccines (2 - Td or Tdap) 01/18/2022 01/19/2012 Colorectal Cancer Screening: Colonoscopy 03/02/2022 Depression Screening 03/02/2022 HIV Screening 03/02/2022 Social Influencers of Health Screening 03/02/2022 Pneumococcal Vaccine: 50+ Ye ars (1 of 1 - PCV) 2022 Zoster Vaccines (1 of 2) 2022 COVID-19 Vaccine (1 - 2023-2 5 season) 2023 Influenza Vaccine (#1) 2023 Cholesterol Screening (Lipid Panel) 06/27/2025 06/27/2020 Hepatitis C Screening Completed 09/22/2023 HIB Vaccines Aged Out No longer eligi ble based on patient's age to complete this topic HPV Vaccines Aged Out No longer eligi ble based on patient's age to complete this topic Hepatitis A Vaccines Aged Out No long er eligible based on patient's age to complete this topic IPV Vaccines Aged Out No longer eligi ble based on patient's age to complete this topic MMR Vaccines Aged Out No longer eligi ble based on patient's age to complete this topic Meningococcal ACWY Vaccine Aged Out N o longer eligible based on patient's age to complete this topic Meningococcal B Vacine Aged Out No lo nger eligible based on patient's age to complete this topic Pneumococcal Vaccine: Pediat rics (0 to 5 Years) and At-Risk Patients (6 to 64 Years) Aged Out No longer eligi ble based on patient's age to complete this topic RSV Immunization Patients Un bere 20 months Aged Out No longer eligible b ased on patient's age to complete this topic Varicella Vaccines Aged Out No longer eligible based on patient's age to complete this topic Procedures Procedure Name Priority Date/Time Associated Diagnosis Comments HEPATITIS C SCREENING Routine 09/22/2023 LIPID PANEL Routine 06/27/2020 from Last 3 Months or Most Recently Relevant to Health Maintenance Results * Hepatitis C Screening (09/22/2023) Pathologist [facility] Hepatitis C Screening abstracted Historical Provider HEALTH MAINTENANCE Final Result * (ABNORMAL) Lipid panel (06/27/2020) LDL/HDL Ratio 6(A) 0 - 4 Triglycerides 344(A) 0 - 150 mg/dL Cholesterol 247(A) 0 - 200 mg/dL HDL 40 >=40 mg/dL LDL Cholesterol 139(A) 0 - 100 mg/dL Blood Venous blood specimen / Unknown Historical Provider LAB BLOOD ORDERABLES Gina l Result from Last 3 Months or Most Recently Relevant to Health Maintenance Insurance MEDICAID - [place] Care Teams Child'S Nurse Relationship Specialty Start Date End Date Jackie Abdi MD [address] [place] [id number] PCP - General 10/20/16
--- OUTSIDE RECORDS SUMMARY | 2024-06-02 19:16 | XMS_ITS | Encounter Summary ---
Author Organization [employer] Address 75 [facility] 7t [place] [address] Care Team Providers Care Embossing Clerk Name Role Phone Jackie Abdi MD Primary Care Provider [phone] Reason for Visit * Reason Onset Date Comments Referral 08/26/2023 Encounter Details Date Type Department Care Team ([facility] st Contact Info) Description 08/26/2023 Telephone [facility] MEDICINE 230 [place] [address] Jackie Abdi MD [address] [place] [address] Referral Social History Tobacco Use Types Packs/Day Years [...] encounter Miscellaneous Notes * Telephone Encounter - Elvin Kim - 08/26/2023 10:48 AM EDT Tc from pt was advised by meat dresser office to request new referral due not being seen until 2020. Address: [address] [place] [address] 3rd [facility] [address] Facility Name: [facility]. Type of Specialist: Weed Inspector Pt is also requesting referral for a urologist and or detective chief due to some recent concerns. (Ptwas triaged) If any questions please contact pt at [phone]. documented in this encounter Plan of Treatment Upcoming Encounters Date Type Department Care Team ([facility] st Contact Info) Description 06/21/2024 10:00 AM EDT Office Visit [facility] MED & PEDS 505 [place] [address] Jackie Abdi MD 505 [place] [address] documented as of this encounter Visit Diagnoses Not on filedocumented in this encounter Additional Health Concerns Assessment Noted Time PHQ-9 Depression Total Score: 21 023 8:57 AM EDT documented as of this encounter Care Teams Embossing Clerk Relationship Specialty Start Date End Date Jackie Abdi MD [address] [place] [address] PCP - General Family Medicine 04/29/13 documented as of this encounter
--- OUTSIDE RECORDS SUMMARY | 2024-06-02 19:16 | XMS_ITS | Encounter Summary ---
Author Organization [employer] Address [address] [place] [address] [address], [place] [address] Care Team Providers Care Care Transitions Manager Name Role Phone Jackie Abdi MD Primary Care Provider [phone] Reason for Visit * Reason Onset Date Comments Med Refill 12/08/2022 Encounter Details Date Type Department Care Team (Late st Contact Info) Description 12/08/2022 Refill [facility] MED & PEDS [address] [place] [address] Jackei Abdi MD 505 [place] [address] Social History Tobacco Use Types Packs/Day Years [...] Description 06/21/2024 10:00 AM EDT Office Visit [facility] MED & PEDS 505 [place] [address] Jackie Abdi MD 505 [place] [address] documented as of this encounter Visit Diagnoses Not on filedocumented in this encounter Additional Health Concerns Assessment Noted Time PHQ-9 Depression Total Score: 21 023 8:57 AM EDT documented as of this encounter Care Teams Care Transitions Manager Relationship Specialty Start Date End Date Jackie Abdi MD [address] [place] [address] PCP - General Family Medicine 04/29/13 documented as of this encounter
--- OUTSIDE RECORDS SUMMARY | 2024-06-02 19:16 | XMS_ITS | Encounter Summary ---
Author Organization [employer] Address [address] [place] [address] 7t [place] [address] Care Team Providers Care Photogrammetric Stereo Compiler Name Role Phone Jackie Abdi MD Primary Care Provider [phone] Encounter Details Date Type Department Care Team (Late st Contact Info) Description 12/08/2022 Telephone [facility] CHC MED & PEDS [address] [place], [place] [phone] Jackie Abdi MD 505 [place] [address] Social History Tobacco Use Types Packs/Day Years [...] encounter Miscellaneous Notes * Telephone Encounter - Sarah Beth Anguiano - 12/08/2022 11:05 AM EDT Tc from pt returning call . documented in this encounter Plan of Treatment Upcoming Encounters Date Type Department Care Team (Late st Contact Info) Description 06/21/2024 10:00 AM EDT Office Visit [facility] CHC MED & PEDS [address] [place] [address] Jackie Abdi MD [address] [place] [address] documented as of this encounter Visit Diagnoses Not on filedocumented in this encounter Additional Health Concerns Assessment Noted Time PHQ-9 Depression Total Score: 21 023 8:57 AM EDT documented as of this encounter Care Teams Photogrammetric Stereo Compiler Relationship Specialty Start Date End Date Jackie Abdi MD [address] [place] [address] PCP - General Family Medicine 04/29/13 documented as of this encounter
--- OUTSIDE RECORDS SUMMARY | 2024-06-02 19:16 | XMS_ITS | Encounter Summary ---
Author Organization [employer] Address [address] [facility] 7t [place] [address] Care Team Providers Care Mixed Animal Veterinarian Name Role Phone Jackie Abdi MD Primary Care Provider [phone] Reason for Visit * Reason Onset Date Comments Appt materials 01/21/2023 Encounter Details Date Type Department Care Team (Late st Contact Info) Description 01/21/2023 Telephone [facility] [address] [place] [address] Sharon Fernandez DMD Appt materials Social History Tobacco Use Types Packs/Day Years [...] t he electric, gas, oil or water [employer] threatened to shut off services in your [...] * Telephone Encounter - Lucinda Reyes - 01/21/2023 2:19 PM EDT According to patient materials needed to fix front tooth were not available for her December appt. She wants to make sure she is all set for her January visit. Fidelina follow up w/patient. documented in this encounter Plan of Treatment Upcoming Encounters Date Type Department Care Team (Late st Contact Info) Description 06/21/2024 10:00 AM EDT Office Visit [facility] & PEDS [address] [place] [address] Jackie Abdi MD [address] [place] [address] documented as of this encounter Visit Diagnoses Not on filedocumented in this encounter Additional Health Concerns Assessment Noted Time PHQ-9 Depression Total Score: 21 023 8:57 AM EDT documented as of this encounter Care Teams Mixed Animal Veterinarian Relationship Specialty Start Date End Date Jackie Abdi MD [address] [place] [phone] PCP - General Family Medicine 04/29/13 documented as of this encounter
--- OUTSIDE RECORDS SUMMARY | 2024-06-02 19:16 | XMS_ITS | Clinical Summary ---
Author Organization [facility] Facility Address [address] [place] [address] Care Team Providers Care Assistant Curator Name Role Phone Jackie Abdi MD Primary Care Provider [phone] Allergies No known active allergies Medications omeprazole (PriLOSEC) [address] capsule Take 1 capsule by mouth 1 (one) time each day Active amitriptyline (ELAVIL) 10 MG tablet TAKE 2 TABLETS BY MOUTH EVERY DAY AT BEDTIME 08/26/2020 Active simvastatin (ZOCOR) 10 MG tablet Take 10 mg by mouth 1 (one) time each day in the evening 08/08/2020 Active hydrOXYzine (VISTARIL) 50 MG capsule TAKE 1 CAPSULE BY MOUTH EVERY NIGHT AT BEDTIME 08/02/2021 Active Symbicort 160-4.5 MCG/ACT inhaler INHALE TWO PUFFS TWICE DAILY, EVERY MORNING AND IN THE EVENING, RINSE MOUTH AFTER USE 07/19/2021 Active Active Problems Problem Noted Date Diagnosed Date Abdominal bloating 08/06/2021 Chronic pelvic pain of female 08/06/2021 Defecation straining 08/06/2021 Right upper quadrant pain 08/06/2021 Epigastric pain 08/06/2021 H/O: anxiety state 08/06/2021 Pain of knee region 08/06/2021 Liver enzymes outside reference range 08/06/2021 Low back pain 08/06/2021 Subdural hematoma 08/06/2021 Sleep deprivation 08/06/2021 Myofascial pain 08/06/2021 Idiopathic edema 11/09/2020 Acute nontraumatic kidney injury 06/06/2020 Chronic kidney disease stage 3 06/06/2020 Hypokalemia 06/06/2020 Resolved Problems Problem Noted Date Diagnosed Date Resolved Date Edema 06/06/2020 12/07/2020 Gastroesophageal reflux disease 06/06/2020 12/07/2020 Metabolic alkalosis 06/06/2020 12/08/19 21 Immunizations Name Administration Dates Next Due Hepatitis B 02/08/2021,01/09/2021 Influenza Split 01/19/2012 Influenza TIV (IM) 02/21/2017 Influenza, Quadrivalent, Pre servative Free 01/20/2022,01/09/2021,02/03/2020 Influenza, Unspecified 01/09/2021,2019,01/07/2019,01/15,02/21/2017,01/25/2015 Pfizer SARS-COV-2 08/22/2020,08/01/2020 Pneumococcal Polysaccharide 02/21/2017 Tdap 01/19/2012 Family History Medical History Relation Comments Cancer Father stomach Diabetes Mother Heart disease Mother Hypertension Mother Kidney disease Sibling Relation Status Comments Father Mother Alive Sibling Social History Tobacco Use Types Packs/Day Years Used Date Smoking Tobacco: Never Smokeless Tobacco: Never Alcohol Use Standard Drinks/Week Comments No 0 (1 standard drink = 0.6 oz pur e alcohol) Comments Unknown Sex and Gender Information Value Date Recorded Sex Assigned at Not on file Legal Sex Female 4:53 PM EST Gender Identity Not on file Sexual Orientation Not on file Last Filed Vital Signs Vital Sign Reading Time Taken Comments Blood Pressure 106/60 09/10/2022 2:14 PM EDT Pulse 63 09/10/2022 2:14 PM EDT Temperature - - Respiratory Rate - - Oxygen Saturation 97% 08/06/2021 1:52 PM EDT Inhaled Oxygen Concentration - - Weight 61.3 kg (135 lb 3.2 oz) 08/06/2021 1:52 P M EDT Height 149.9 cm (4' 11 ) 12/07/2020 3:32 PM EDT Body Mass Index 27.31 12/07/2020 3:32 PM EDT Plan of Treatment Health Maintenance Due Date Last Done Comments Breast Cancer Screening 1970 Hepatitis B Vaccine (1 of 3 - 19+ 3-dose series) 1991 02/08/2021, 01/09/2021 Pneumococcal Vaccine: Pediat rics (0 to 5 Years) and At-Risk Patients (6 to 64 Years) (2 of 2 - PCV) 02/21/2018 02/21/2017 Colorectal Cancer Screening: Annual FOBT 2021 Colorectal Cancer Screening: Colonoscopy 2021 Colorectal Cancer Screening: Sigmoidoscopy 2021 Influenza Vaccine (#1) 2023 2, 01/09/2021, 01/09/2021, Additional history exists Insurance [place]ID [place] Care Teams Assistant Curator Relationship Specialty Start Date End Date Jackie Abdi MD [address] [place] [phone] PCP - General 04/09/20
--- OUTSIDE RECORDS SUMMARY | 2024-06-02 19:17 | XMS_ITS | Encounter Summary ---
Author Organization [employer] Address [address] [facility] 7[address] [place] [address] Care Team Providers Care Yard Cleaner Name Role Phone Jackie Abdi MD Primary Care Provider [phone] Encounter Details Date Type Department Care Team ([facility] st Contact Info) Description 03/11/2023 Abstract [facility] [address] [place] [address] Jackie Abdi MD [address] [place] [address] Social History Tobacco Use Types Packs/Day Years [...] 06/21/2024 10:00 AM EDT Office Visit [facility] MED & PEDS 505 [place] [address] Jackie Abdi MD [address] [place] [address] documented as of this encounter Visit Diagnoses Not on filedocumented in this encounter Additional Health Concerns Assessment Noted Time PHQ-9 Depression Total Score: 21 023 8:57 AM EDT documented as of this encounter Care Teams Yard Cleaner Relationship Specialty Start Date End Date Jackie Abdi MD [address] [place] [id number] PCP - General Family Medicine 04/29/13 documented as of this encounter
--- OUTSIDE RECORDS SUMMARY | 2024-06-02 19:17 | XMS_ITS | Encounter Summary ---
Author Organization [employer] Address [address] [facility] [address] 7[address] [place] [address] Care Team Providers Care Assembly Supervisor Name Role Phone Jackie Abdi MD Primary Care Provider [phone] Encounter Details Date Type Department Care Team (Late st Contact Info) Description 12/07/2023 Orders Only [facility] [address] [place] [address] [phone] Hiren Garcia MD [address] [place], [place] [phone] Social History Tobacco Use Types Packs/Day Years [...] t he electric, gas, oil or water [employer] threatened to shut off services in your [...] Description 06/21/2024 10:00 AM EDT Office Visit [facility] MED & PEDS [address] [place] [address] Jackie Abdi MD [address] [place] [address] documented as of this encounter Procedures Procedure Name Priority Date/Time Associated Diagnosis Comments STRESS TEST WITH MYOCARDIAL PERFUSION Routine 01/01/2024 9:09 AM EDT documented in this encounter Results * Stress test with myocardial perfusion (01/01/2024 9:09 AM EDT) 01/01/2024 9:09 AM EDT Narrative [facility] - 01/04/2024 4:19 PM EDT ? [facility] ?[address] ?[place] [address] ?Nuclear Medicine Report ? Signed ? Patient: Philly,Sade ?MR#: [id number] ?? 4 ? : 1970 ?Acct:[id number] ? Age/Sex: 53 / F ?ADM Date: 10/04/24 ? Loc: HO.CARD ? Attending Rod Ricketts MD ? Ordering Physician: Abdelrahman Ricketts MD ?? Date of Service: 01/01/24 ?? Procedure(s): NM cardiolite stress test ?? Accession Number(s): [id number] ? cc: Jackie Abdi MD; Abdelrahman Ricketts MD ? EXERCISE MYOCARDIAL PERFUSION STUDY ? INDICATION: ?? Chest pain ? TECHNIQUE: ? The patient was brought in for an exercise perfusion study on ?? 01/01/2024. Patient performed exercise as per Renzo protocol and was ?? injected ??25 mCi of sestamibi once target heart rate was achieved. ?? Images were obtained using the SPECT gamma camera interlaced with the ?? gating device. Images were obtained in supine position. ? Resting perfusion study was performed on 01/04/2024. Patient was ?? administered 25 mCi of sestamibi intravenously at rest. Images were ?? then obtained in supine position. Total DLP 92 mGy-cm. ? Images were processed with the software and compared side to side in ?? short axis, horizontal long axis and vertical long axis views. ? FINDINGS: ? Raw aquisition reviewed. ? The stress perfusion study showed ??no significant perfusion ?? abnormality. Both uncorrected as well as CT attenuation corrected ?? images were reviewed. The gated study shows normal LV systolic function ?? with calculated LVEF of 60%. LV cavity is normal in size. The gated ?? study shows normal ??wall thickening and contraction of segments. ? Resting study shows no significant perfusion abnormality. Gating at ?? rest reveals normal wall motion with ejection fraction at 68%. ? The findings are consistent with no clear reversible or fixed perfusion ?? abnormality. ? NM/NM cardiolite stress test ?? IMPRESSION: ? 1. ??Myocardial perfusion imaging study shows probably normal myocardial ?? perfusion. ?? 2. ??Gated LVEF is 60% during stress and 68% during rest. ?? 3. Transient ischemic dilatation not present. ? EKG component of the test reported separately. ? Electronically signed by: ??Abdelrahman Ricketts MD ??01/04/2024 04:16 ?? PM EDT RP ? Dictated By: ?Abdelrahman Ricketts MD ? Signed By: ?<Electronically signed by Abdelrahman Ricketts MD in OV> ?01/04/24 1616 ? DD/ 0909 ? TD/TT: 01/04/24 1200 ? Chemical Manager: ? Procedure Note Kaylyn [place] - 01/04/[address] [place] [address] Nuclear Medicine Report Signed Patient: [place] Fraga#: [id number] 4 : 1970Acct:[id number] Age/Sex: 53 / FADM Date: 01/01/24 Loc: .[facility] Attending Dr: Abdelrahman Ricketts MD Ordering Physician: Abdelrahman Ricketts MD Date of Service: 01/01/24 Procedure(s): NM cardiolite stress test Accession Number(s): [id number] cc: Jackie Abdi MD; Abdelrahman Ricketts MD EXERCISE MYOCARDIAL PERFUSION STUDY INDICATION: Chest pain TECHNIQUE: The patient was brought in for an exercise perfusion study on 01/01/2024. Patient performed exercise as per Renzo protocol and was injected 25 mCi of sestamibi once target heart rate was achieved. Images were obtained using the SPECT gamma camera interlaced with the gating device. Images were obtained in supine position. Resting perfusion study was performed on 01/04/2024. Patient was administered 25 mCi of sestamibi intravenously at rest. Images were then obtained in supine position. Total DLP 92 mGy-cm. Images were processed with the software and compared side to side in short axis, horizontal long axis and vertical long axis views. FINDINGS: Raw aquisition reviewed. The stress perfusion study showed no significant perfusion abnormality. Both uncorrected as well as CT attenuation corrected images were reviewed. The gated study shows normal LV systolic function with calculated LVEF of 60%. LV cavity is normal in size. The gated study shows normal wall thickening and contraction of segments. Resting study shows no significant perfusion abnormality. Gating at rest reveals normal wall motion with ejection fraction at 68%. The findings are consistent with no clear reversible or fixed perfusion abnormality. NM/NM cardiolite stress test IMPRESSION: 1. Myocardial perfusion imaging study shows probably normal myocardial perfusion. 2. Gated LVEF is 60% during stress and 68% during rest. 3. Transient ischemic dilatation not present. EKG component of the test reported separately. Electronically signed by: Abdelrahman Ricketts MD 01/04/2024 04:16 PM EDT Dictated By: Abdelrahman Ricketts MD Signed By: <Electronically signed by Abdelrahman Ricketts MD inOV> 01/04/24 1616 DD/ 0909 TD/TT: 01/04/24 1200 Chemical Manager: [facility] External Provider CV STRE SS PROCEDURES Final Result [facility] [address] [place] [address] documented in this encounter Visit Diagnoses Not on filedocumented in this encounter Additional Health Concerns Assessment Noted Time PHQ-9 Depression Total Score: 21 023 8:57 AM EDT documented as of this encounter Care Teams Assembly Supervisor Relationship Specialty Start Date End Date Jackie Abdi MD [address] [place] [id number] PCP - General Family Medicine 04/29/13 documented as of this encounter
--- OUTSIDE RECORDS SUMMARY | 2024-06-02 19:17 | XMS_ITS | Encounter Summary ---
Author Organization [employer] Address [address] [facility] 7t [place] [address] Care Team Providers Care Composing Room Machinist Name Role Phone Jackie Abdi MD Primary Care Provider [phone] Reason for Visit * Reason Comments Med Refill Encounter Details Date Type Department Care Team ([facility] st Contact Info) Description 06/01/2024 Refill [facility] MED[facility] [address] [place] [address] Jackie Abdi MD [address] [place] [address] Acute pain of right shoulder Social History Tobacco Use Types Packs/Day Years Used Date Smoking Tobacco: Never Passive Smoke Exposure: Never Smokeless Tobacco: Never Alcohol Use Standard Drinks/Week Comments Never 0 (1 standard drink = 0.6 oz pur e alcohol) Depression Answer Date Recorded Patient Health Questionnaire-9 Score 14 04/19/2024 Patient Health Questionnaire-9 Score 14 04/19/2024 Last PHQ-9: Questionnaire Data Not on file 0 04/19/2024 Housing Stability Answer Date Recorded What is [...] Date Recorded Patient Health Questionnaire-2 Score 6 04/19/2024 Comments No Sex and Gender Information Value Date Recorded [...] 10:00 AM EDT Office Visit [facility] MED & PEDS [address] [place] [address] Jackie Abdi MD [address] [place] [address] documented as of this encounter Visit Diagnoses Diagnosis Acute pain of right shoulder documented in this encounter Additional Health Concerns Assessment Noted Time PHQ-9 Depression Total Score: 14 025 11:23 AM EST documented as of this encounter Care Teams Composing Room Machinist Relationship Specialty Start Date End Date Jackie Abdi MD [address] [place] [id number] PCP - General Family Medicine 04/29/13 documented as of this encounter
--- OUTSIDE RECORDS SUMMARY | 2024-06-02 19:17 | XMS_ITS | Encounter Summary ---
Author Organization [employer] Address [address] [facility] 7t [place] [address] Care Team Providers Care Marketing Analyst Name Role Phone Jackie Abdi MD Primary Care Provider [phone] Reason for Visit * Reason Comments Med Refill Encounter Details Date Type Department Care Team ([facility] st Contact Info) Description 06/08/2023 Refill [facility] MEDICINE [address] [place] [address] Jackie Abdi MD [address] [place] [address] Depressed mood Social History Tobacco Use Types Packs/Day Years [...] 06/21/2024 10:00 AM EDT Office Visit [facility] [address] [place] [address] Jackie Abdi MD [address] [place] [address] documented as of this encounter Visit Diagnoses Diagnosis Depressed mood documented in this encounter Additional Health Concerns Assessment Noted Time PHQ-9 Depression Total Score: 21 023 8:57 AM EDT documented as of this encounter Care Teams Marketing Analyst Relationship Specialty Start Date End Date Jackie Abdi MD [address] [place] [id number] PCP - General Family Medicine 04/29/13 documented as of this encounter
--- OUTSIDE RECORDS SUMMARY | 2024-06-02 19:17 | XMS_ITS | Encounter Summary ---
Author Organization [employer] Address [address] [facility] 7t [place] [address] Care Team Providers Care Scientific Investigator Name Role Phone Jackie Abdi MD Primary Care Provider [phone] Reason for Visit * Reason Onset Date Comments call back 06/03/2022 Encounter Details Date Type Department Care Team ([facility] st Contact Info) Description 06/03/2022 Telephone [facility] MEDICINE [address] [place] [address] Jackie Abdi MD [address] [place] [address] call back Social History Tobacco Use Types Packs/Day Years [...] suspected to have Coronavirus/COVID-19? No / Unsure 05/26/2022 10:44 AM EST documented as of this encounter Miscellaneous Notes * Telephone Encounter - Jorge Martinez - 06/03/2022 2:23 PM EST Tc from pt returning call. Pt requesting a call back. Please contact pt at [phone] documented in this encounter Plan of Treatment Upcoming Encounters Date Type Department Care Team ([facility] st Contact Info) Description 06/21/2024 10:00 AM EDT Office Visit [facility] MED & PEDS [address] [place] [address] Jackie Abdi MD [address] [place] [address] documented as of this encounter Visit Diagnoses Not on filedocumented in this encounter Care Teams Scientific Investigator Relationship Specialty Start Date End Date Jackie Abdi MD [address] [place] [id number] PCP - General Family Medicine 04/29/13 documented as of this encounter
--- OUTSIDE RECORDS SUMMARY | 2024-06-02 19:17 | XMS_ITS | Encounter Summary ---
Author Organization [employer] Address [address] [facility] 7t [place] [address] Care Team Providers Care Manager Services Name Role Phone Jackie Abdi MD Primary Care Provider [phone] Reason for Visit * Reason Onset Date Comments Med Refill 11/13/2023 Encounter Details Date Type Department Care Team (Late st Contact Info) Description 11/13/2023 Refill [facility] MEDICINE [address] [place] [address] Jackie Abdi MD [address] [place] [address] Social History Tobacco Use Types Packs/Day Years [...] 06/21/2024 10:00 AM EDT Office Visit [facility] MED & PEDS [address] [place] [address] Jackie Abdi MD [address] [place] [address] documented as of this encounter Visit Diagnoses Not on filedocumented in this encounter Additional Health Concerns Assessment Noted Time PHQ-9 Depression Total Score: 21 023 8:57 AM EDT documented as of this encounter Care Teams Manager Services Relationship Specialty Start Date End Date Jackie Abdi MD [address] [place] [address] PCP - General Family Medicine 04/29/13 documented as of this encounter
--- OUTSIDE RECORDS SUMMARY | 2024-06-02 19:17 | XMS_ITS | Clinical Summary ---
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 Active cholecalciferol (Vitamin D-3) 1.25 MG (61613 UT) capsule Take 1 capsule by mouth. 06/28/19 21 Active amitriptyline (Elavil) 10 MG tablet Take 20 mg by mouth at bedtime. 04/13/19 23 Active triamcinolone (Kenalog) 0.5 % ointment APPLY TOPICALLY TO THE AFFECTED AREA TWICE DAILY 05/15/19 23 Active Enoxaparin Sodium 40 MG/0.4ML solution prefilled syringe INJECT CONTENTS OF 1 SYRINGE UNDER THE SKIN TWICE DAILY FOR 2 DAYS 08/16/19 23 Active SUMAtriptan (Imitrex) 50 MG tablet TAKE 1 TABLET BY MOUTH EVERY DAY FOR 9 DAYS 09/27/19 23 Active sertraline (Zoloft) 100 MG tablet Take 0.5 tablets (50 mg) by mouth in the morning. 15 tablet 11 02/10/20 23 Active nortriptyline (Pamelor) 25 MG capsule Take 25 mg by mouth in the morning. 12/22/19 23 Active Estrogens Conjugated (Premarin) 0.625 MG/GM creamIndications:H ot flushes, perimenopausal Insert 0.625 mg into the vagina 2 (two) times a week. 30 g 3 07/16/19 24 Active verapamil (Calan) 40 MG tablet TAKE 1 TABLET BY MOUTH TWICE DAILY 180 tablet 08/12/19 24 Active FLUoxetine (PROzac) 10 MG capsule Take 1 capsule (10 mg) by mouth Once per day. 30 capsule 11 08/12/19 24 2024 Active dicyclomine (Bentyl) 10 MG capsuleIndications :History of cholecystectomy Take 1 capsule (10 mg) by mouth 3 times daily. 90 capsule 3 10/09/19 24 Active omeprazole (PriLOSEC) [address] capsule Take 1 capsule (40 mg) by mouth before breakfast. Do not crush or chew. 90 capsule 3 11/17/19 24 2024 Active Symbicort 80-4.5 MCG/ACT inhaler INHALE 2 PUFFS BY MOUTH TWICE DAILY 10.2 g 11 02/08/20 24 Active hydrOXYzine pamoate (Vistaril) 50 MG capsule TAKE 1 CAPSULE BY MOUTH TWICE DAILY 60 capsule 3 02/08/20 24 Active azelastine (Astelin) 0.1 % nasal spray USE 1 SPRAY IN EACH NOSTRIL TWICE DAILY 30 mL 11 03/01/20 24 Active meclizine (Antivert) 25 MG tablet TAKE 1 TABLET BY MOUTH EVERY MORNING, 1 TABLET AT NOON, AND 1 TABLET EVERY NIGHT AT BEDTIME NEEDED FOR DIZZINESS 30 tablet 04/01/19 25 Active amoxicillin-clavul anate (Augmentin) 500-125 MG tablet Take 1 tablet by mouth every 6 (six) hours during the day. 04/11/19 25 Active cyclobenzaprine (Flexeril) 10 MG tablet TAKE 1 TABLET(10 MG) BY MOUTH AT BEDTIME 30 tablet 05/10/19 25 Active celecoxib (CeleBREX) 200 MG capsuleIndications :Acute pain of right shoulder TAKE 1 CAPSULE BY MOUTH TWICE DAILY 40 capsule 05/10/19 25 Active celecoxib (CeleBREX) 200 MG capsuleIndications :Acute pain of right shoulder TAKE 1 CAPSULE BY MOUTH TWICE DAILY 40 capsule 11/17/19 24 2024 Discontinued cyclobenzaprine (Flexeril) 10 MG tablet TAKE 1 TABLET(10 MG) BY MOUTH AT BEDTIME 30 tablet 04/01/19 25 2024 Discontinued Active Problems Problem Noted Date Diagnosed Date Straining with stools 11/11/2022 Chronic RUQ pain 11/11/2022 Valgus deformity, not elsewhere classified, left knee 11/11/2022 Status post total knee replacement, right 2022 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 11/11/2022 History of disease 11/11/2022 Cellulitis 11/11/2022 Lack of adequate sleep 11/11/2022 Vertigo 06/26/2022 Assessment & Plan (06/26/2022 9:18 AM EDT): Patient with recent URI, will prescribe meclizine, told to rest, in case of not improving in 2-3 weeks call back Dysuria 06/03/2022 Ventricular septal defect 05/15/2022 Right upper quadrant abdominal pain 05/15/2022 Open fracture of tibial plateau 05/15/2022 Knee pain 05/15/2022 Intermittent asthma 05/15/2022 History of cholecystectomy 05/15/2022 Mid-back pain, acute 05/15/2022 Low back pain 08/06/2021 Straining during bowel movements 08/06/2021 Pain in unspecified knee 08/06/2021 Myofascial pain 08/06/2021 Intracranial subdural hematoma 08/06/2021 Chronic pelvic pain in female 08/06/2021 Abnormal liver enzymes 08/06/2021 Assessment & Plan (06/16/2022 9:05 AM EDT): Reports this has been present since more then 1 yr, denies having an US or workup for this. At this moment will start workup. In terms of her dizziness/shakiness symptoms, unknown etiology, vague compliant. At this moment recommended for her to be seen in person, need neurological/cardiac Examination, consider neurology referral. Depending on exam may merit head imaging/holter to help elucidate etiology of symptoms. Abdominal bloating 08/06/2021 Idiopathic edema 11/09/2020 Stage 3 chronic kidney disease 06/06/2020 Hypokalemia 06/06/2020 Acute renal failure syndrome 06/06/2020 Edema of lower extremity 09/07/2017 Gastroesophageal reflux disease 09/06/2013 Resolved Problems Problem Noted Date Diagnosed Date Resolved Date Chronic female pelvic pain 11/11/2022 1 04/11/2022 History of hysterectomy for benign disease 05/15/2022 04/21/2024 Encounters Date Type Department Care Team Description 06/01/2024 Refill [facility] MED[facility] [address] [place] [phone] Jackie Abdi MD Acute pain of right shoulder 05/08/2024 Refill [facility] [address] [place] [phone] Jackie Abdi MD Acute pain of right shoulder 04/26/2024 10:00 AM EST Office Visit [facility] [address] [place] [phone] Hiren Garcia MD Chronic pain in right shoulder (Primary Dx); Acute bilateral ankle pain 04/22/2024 Orders Only [facility] [address] [place] [phone] Pola Maldonado CNM 04/21/2024 2:00 PM EST Office Visit [address] [address] Pola Maldonado CNM Vaginal discharge (Primary Dx); Atrophic vaginitis; Pain in female genitalia on intercourse; Menopausal syndrome (hot flashes); Screening mammogram for breast cancer 04/21/2024 Outside Procedure [facility] [address] [place] [address] Deshawn Hernandezn, OD Presbyopia of both eyes (Primary Dx) 04/20/2024 Travel 04/19/2024 3:30 PM EST Office Visit [facility] [address] [place] [address] An Hernandez, OD Hyperopia of both eyes (Primary Dx) 04/19/2024 11:30 AM EST Telemedicine [facility] MED [facility] PEDS [address], [place] [phone] Jackie Abdi MD Vaginal itching (Primary Dx); Pain in female genitalia on intercourse 04/19/2024 Travel 04/12/2024 Travel 04/08/2024 Telephone [facility] [address] [place] [phone] Jackie Abdi MD appt 04/01/2024 Refill [facility] MED[facility] [address] [place] [phone] Jackie Abdi MD 03/25/2024 Orders Only [facility] External Provider, [facility] from Last 3 Months Immunizations Name Administration Dates Next Due Hep B, adult 02/08/2021,01/09/2021 Influenza injectable quadriv alent preservative free 01/16/2023,01/20/2022,01/09/2021,02/02 Influenza, IIV3, injectable 01/07/2019,1 ,02/21/2017,01/25 Influenza, Split (incl. [place] antigen) 01/19/2012 Pfizer Covid-19 Vaccine 12+ 08/22/2020, Pneumococcal Polysaccharide PPSV23 02/21/2017 Tdap 01/19/2012 Family History Medical History Relation Name Comments Stomach cancer Father Diabetes Mother Ovarian cancer Mother's Sister Relation Name Status Comments Father Mother Mother's Sister Social History Tobacco Use Types Packs/Day Years Used Date Smoking Tobacco: Never Passive Smoke Exposure: Never Smokeless Tobacco: Never Tobacco Cessation:Counseling Given: Not Answered Alcohol Use Standard Drinks/Week Comments Never 0 [...] Orientation Straight 06/27/2022 9: 00 AM EDT Last Filed Vital Signs Vital Sign Reading Time Taken Comments Blood Pressure 122/70 04/26/2024 9:51 AM EST Pulse 73 04/26/2024 9:51 AM EST Temperature 36.3 ??C (97.3 ??F) 04/26/2024 9:51 AM ES T Respiratory Rate 18 04/26/2024 9:51 AM EST Oxygen Saturation 98% 04/26/2024 9:51 AM EST Inhaled Oxygen Concentration - - Weight 68.2 kg (150 lb 6.4 oz) 04/26/2024 9:51 A M EST Height 149.9 cm (4' 11 ) 04/21/2024 1:59 PM EST Body Mass Index 30.38 04/21/2024 1:59 PM EST Plan of Treatment Upcoming Encounters Date Type Department Care Team (Late st Contact Info) Description 06/21/2024 10:00 AM EDT Office Visit [facility] [address] [place] [address] Jackie Abdi MD [address] [place] [address] Health Maintenance Due Date Last Done Comments CT Colonography 1972 Colonoscopy 1972 FIT 1972 FOBT 1972 Sigmoidoscopy 1972 Alcohol/Substance Use Screening 1984 Family Planning (PISQ) 1987 DTaP/Tdap/Td Vaccines (2 - Td or Tdap) 01/18/2022 01/19/2012 Mammogram 03/02/2022 03/02/2020 Dental X-Ray: Bitewings 05/27/2023 05/26/2022 Dental Oral Exam 09/10/2023 03/10/2023, 05/26/2022 Dental Prophylaxis 09/10/2023 03/10/2023, 06/27/2022 SDOH Screening 06/02/2024 06/03/2023 Depression Monitoring (PHQ-9) 10/17/2024 04/19/2024, 04/19/2024 Depression Screening 04/19/2025 04/19/2024, 04/19/19 Tobacco Screening 04/26/2025 04/26/2024 Dental X-Ray: Full Mouth 05/27/2025 05/26/2022 Colorectal Cancer Screening 02/23/2026 FIT DNA/Cologuard 02/23/2026 02/23/2023 Cervical Cancer Screening 04/08/2027 HPV/Cotest 04/08/2027 04/08/2022 Pap Smear 04/08/2027 04/08/2022 RSV Patients and Patients Aged 60 years or older (1 - 1-dose 75+ series) 2047 HIV Screening Completed 12/12/2020 Hepatitis C Screening Completed 12/12/2020 COVID-19 Vaccine Completed 12/03/2023, , 01/22/2022, Additional history exists Influenza Vaccine Completed 12/03/2023, , 01/20/2022, Additional history exists Hepatitis A Vaccines Aged Out 03/18/2024 No long er eligible based on patient's age to complete this topic Hepatitis B Vaccines Completed 03/18/2024, 02/08/2021, 01/09/2021 Pneumococcal Vaccine: 50+ Years Completed 03/18/2024, 02/21/2017 Zoster Vaccines Completed 03/18/2024, 12/03/2023 HIB Vaccines Aged Out No longer eligi ble based on patient's age to complete this topic HPV Vaccines Aged Out No longer eligi ble based on patient's age to complete this topic IPV Vaccines Aged Out No longer eligi ble based on patient's age to complete this topic Meningococcal Vaccine Aged Out No charmaine denae eligible based on patient's age to complete this topic RSV under 20 months Aged Out No longe r eligible based on patient's age to complete this topic Rotavirus Vaccines Aged Out No longer eligible based on patient's age to complete this topic Procedures Procedure Name Priority Date/Time Associated Diagnosis Comments US PELVIS TRANSVAGINAL Routine 4:15 PM EST Pain in female genitalia on intercourse POCT WET MOUNT/MISSAEL Routine 04/21/2024 2: 42 PM EST Vaginal discharge BACTERIAL VAGINOSIS PANEL Routine 04/21/2024 2:24 PM EST Vaginal discharge US RETROPERITONEAL COMPLETE Routine 03/25/2024 10:07 AM EST PROPHYLAXIS - ADULT Routine 03/10/2023 2 :00 PM EST PERIODIC ORAL EVALUATION - ESTABLISHED PATIENT Routine 03/10/2023 2:00 PM EST LAB COLOGUARD?? COLON CANCER SCREEN Routine 02/23/2023 10:44 AM EST Encounter for screening for malignant neoplasm of colon INTRAORAL - COMPLETE SERIES OF RADIOGRAPHIC IMAGES Routine 05/26/2022 11:00 AM EST THINPREP IMAGING PAP AND HPV MRNA E6/E7, WITH CT/NG, TRICHOMONAS Routine 04/08/2022 4:21 PM EST ZZZ HISTORICAL HEPATITIS C AB W/REFL TO HCV RNA, QN, PCR Routine 12/12/2020 10:12 AM EDT HIV 1/2 ANTIGEN/ANTIBODY, FOURTH GENERATION W/RFL Routine 12/12/2020 10:12 AM EDT from Last 3 Months or Most Recently Relevant to Health Maintenance Results * US Pelvis Transvaginal (04/26/2024 4:15 PM EST) Anatomical Region Laterality Modality Pelvis Ultrasound 04/26/2024 4:15 PM EST Narrative 04/27/2024 9:35 AM EST ? [facility] ?[address] ?[place] [address] ? Ultrasound Report ? Signed ? Patient: Philly,Sade ?MR#: [id number] ?? 4 ? : 1970 ?Acct:[id number] ? Age/Sex: 54 / F ?ADM Date: 01/28/25 ? Loc: HO.US ? Attending Dr: Pola Maldonado CNM ? Ordering Physician: POLA MALDONADO CNM ?? Date of Service: 04/26/24 ?? Procedure(s): US pelvic and transvaginal ?? Accession Number(s): [id number] ? cc: Jackie Abdi MD; POLA MALDONADO CNM ? EXAMINATION: ? US PELVIS ? CLINICAL INFORMATION: ? Pain with sex. ? COMPARISON: ?? None available. ? TECHNIQUE: ?? Ultrasound of the pelvis is performed using both transabdominal and ?? transvaginal transducers along with Doppler. Transvaginal imaging is ?? performed due to inadequate visualization transabdominally. ? FINDINGS: ?? Uterus: ?? The uterus is anteverted, anteflexed and measures 7.7 x 1.7 x 4.0 cm ? The double wall endometrial thickness is 6.0 mm. ? The uterus is smooth in contour and has normal myometrial echogenicity. ?No visible fibroid. ? Adnexa: ?? Both ovaries are visualized. There is normal color flow to the adnexa. ?? There is no ovarian torsion. ??There is no pelvic ascites or fluid ?? collection. ? Right ovary measures 2.9 x 1.2 x 1.9 cm. Volume 3.5 mL ? Left ovary is not visualized ? No free fluid in cul-de-sac. ? US/US pelvic and transvaginal ?? IMPRESSION: ?? Unremarkable uterus and right ovary. ? Left ovary is not seen. ? Electronically signed by: ??Gary Thayer MD ??04/27/2024 09:32 AM EST RP ? Dictated By: ?Flaca,Gary S MD ? Signed By: ?<Electronically signed by Gary S Flaca, MD in OV> ?04/27/24 0932 ? DD/ 1615 ? TD/TT: 04/26/24 1623 ? Professional Services Specialist: MSM ? Procedure Note Molly, Image - 04/27/[address] [address] Ultrasound Report Signed Patient: Sade FragaMR#: [id number] 4 : 1970Acct:[id number] Age/Sex: 54 / FADM Date: 04/26/24 Loc: HO.US Attending Dr: Pola Maldonado CNM Ordering Physician: POLA MALDONADO CNM Date of Service: 04/26/24 Procedure(s): US pelvic and transvaginal Accession Number(s): [id number] cc: Jackie Abdi MD; POLA MALDONADO CNM EXAMINATION: US PELVIS CLINICAL INFORMATION: Pain with sex. COMPARISON: None available. TECHNIQUE: Ultrasound of the pelvis is performed using both transabdominal and transvaginal transducers along with Doppler. Transvaginal imaging is performed due to inadequate visualization transabdominally. FINDINGS: Uterus: The uterus is anteverted, anteflexed and measures 7.7 x 1.7 x 4.0 cm The double wall endometrial thickness is 6.0 mm. The uterus is smooth in contour and has normal myometrial echogenicity. No visible fibroid. Adnexa: Both ovaries are visualized. There is normal color flow to the adnexa. There is no ovarian torsion. There is no pelvic ascites or fluid collection. Right ovary measures 2.9 x 1.2 x 1.9 cm. Volume 3.5 mL Left ovary is not visualized No free fluid in cul-de-sac. US/US pelvic and transvaginal IMPRESSION: Unremarkable uterus and right ovary. Left ovary is not seen. Electronically signed by: Gary Thayer MD 04/27/2024 09:32 AM EST Dictated By: Gary Thayer MD Signed By: <Electronically signed by Gary Thayer MD in OV> 04/27/24 0932 DD/ 1615 TD/TT: 04/26/24 1623 Professional Services Specialist: BRAYDON us Pola Maldonado CNM IMG US PROCEDURES Edited Result - Final * POCT fern test, vaginal fluid manually resulted (04/21/2024 2:42 PM EST) MISSAEL Prep Negative Comment:pH 5, neg whiff, neg clue, neg trich, neg wbc, neg yeast, parabasal cells noted Vaginal Fluid Vaginal structure / Unknown 04/21/2024 2:42 PM EST Impressions Pola Maldonado CNM - 04/21/2024 2:42 PM EST Atrophic vaginitis Pola MANN POINT OF CARE TEST ENTER/ EDIT ORDERABLES Final Result * (ABNORMAL) Bacterial Vaginosis Panel (04/21/2024 2:24 PM EST) TRICHOMONAS VAGINALIS DETECTION BY PCR NOT DETECTED Not Detect [facility] BACTERIAL VAGINOSIS DETECTION BY PCR NEGATIVE Negative [facility] Comment:The BV organism targ ets of the Xpert Xpress MVP test can becommensal in women; Xpert Xpress MVP positive results forbacterial vaginosis should be considered in conjunction withother clinical and patient information to determine thedisease status. Organisms that are not detected by the XpertXpress MVP test have also been reported to be associatedwith BV and aerobic vaginitis.The Xpert Xpress MVP test performance has not been evaluatedin patients under the age of 14. OFELIA GROUP DETECTION BY PCR DETECTED(A) Not Detect [facility] Ofelia glab krusei PCR NOT DETECTED Not Detect [facility] Swab Vaginal structure / Unknown 04/21/2024 2:24 PM EST 04/21/2024 5:25 PM EST Pola MANN LAB MICROBIOLOGY - GENERA L ORDERABLES Final Result [facility] [address] [place] [phone] * US Retroperitoneal Complete (03/25/2024 10:07 AM EST) Anatomical Region Laterality Modality Ultrasound 03/25/2024 10:0 7 AM EST Narrative 04/08/2024 9:22 AM EST ? [facility] ?[address] ?[place] [address] ? Ultrasound Report ? Signed ? Patient: Philly,Sade ?MR#: [id number] ?? 4 ? : 1970 ?Acct:[id number] ? Age/Sex: 54 / F ?ADM Date: 03/25/24 ? Loc: HO.US ? Attending Dr: Sarah HARE ? Ordering Physician: Sarah Gomez ?? Date of Service: 03/25/24 ?? Procedure(s): US retroperitoneal comp ?? Accession Number(s): [id number] ? cc: Sarah Gomez; Jackie Abdi MD ? EXAMINATION: ?? US RETROPERITONEAL COMPLETE (RENAL) ? CLINICAL INFORMATION: ?? Urinary tract infection, site not specified. ? COMPARISON: ?? Ultrasound abdomen limited 10/22/2022. ? TECHNIQUE: ?? Real-time imaging of the kidneys and bladder. ? Exam submitted for review 04/08/2024 8:18 AM FABRICATION TECHNICIAN. ? FINDINGS: ? RIGHT KIDNEY: 9.7 x 5.7 x 5.5 cm (SAG x AP x TRV). The kidney is normal ?? in size, contour, and echogenicity. Renal cortical thickness is normal. ?? No focal parenchymal lesions or hydronephrosis. There is a ?? nonobstructing mid to upper pole calculus measuring 3 mm. ? LEFT KIDNEY: 9.0 x 5.8 x 4.6 cm (SAG x AP x TRV). The kidney is normal ?? in size, contour, and echogenicity. Renal cortical thickness is normal. ?? No calculi or focal parenchymal lesions. No hydronephrosis. ? BLADDER: Well distended and normal. Bilateral ureteral jets are ?? demonstrated. Prevoid bladder volume is 356 mL. Postvoid bladder volume ?? is 28.4 mL. ? ADDITIONAL FINDINGS: Mildly prominent right ovary visualized measuring ?? 2.2 x 2.0 x 2.0 cm with internal calcifications, felt to be within ?? normal limits for age. No definite masses or cystic abnormalities. ? US/US retroperitoneal comp ?? IMPRESSION: ?? 1. Nonobstructing 3 mm right renal calculus. ?? 2. Kidneys are otherwise normal. ?? 3. Normal urinary bladder. 28.4 mL post void residual. ?? 4. Mildly prominent right ovary, likely within normal limits for age. ?? Consider dedicated transvaginal pelvic ultrasound if felt warranted. ? Electronically signed by: ??Lee Rankin MD ??04/08/2024 09:19 AM EST RP ? Dictated By: ?Lee Rankin MD ? Signed By: ?<Electronically signed by Lee Rankin MD in OV> ?04/08/24918 ? DD/ 1007 ? TD/TT: 03/25/24 1020 ? Professional Services Specialist: ? Procedure Note Molly, Image - 04/08/2024 [place] [address] Ultrasound Report Signed Patient: Gray Fraga#: [id number] 4 : 1970Acct:[id number] Age/Sex: 54 / FADM Date: 03/25/24 Loc: HO.US Attending Dr: Sraah HARE Ordering Physician: Sarah Gomez Date of Service: 03/25/24 Procedure(s): US retroperitoneal comp Accession Number(s): [id number] cc: Sarah Gomez; Jackie Abdi MD EXAMINATION: US RETROPERITONEAL COMPLETE (RENAL) CLINICAL INFORMATION: Urinary tract infection, site not specified. COMPARISON: Ultrasound abdomen limited 10/22/2022. TECHNIQUE: Real-time imaging of the kidneys and bladder. Exam submitted for review 04/08/2024 8:18 AM FABRICATION TECHNICIAN. FINDINGS: RIGHT KIDNEY: 9.7 x 5.7 x 5.5 cm (SAG x AP x TRV). The kidney is normal in size, contour, and echogenicity. Renal cortical thickness is normal. No focal parenchymal lesions or hydronephrosis. There is a nonobstructing mid to upper pole calculus measuring 3 mm. LEFT KIDNEY: 9.0 x 5.8 x 4.6 cm (SAG x AP x TRV). The kidney is normal in size, contour, and echogenicity. Renal cortical thickness is normal. No calculi or focal parenchymal lesions. No hydronephrosis. BLADDER: Well distended and normal. Bilateral ureteral jets are demonstrated. Prevoid bladder volume is 356 mL. Postvoid bladder volume is 28.4 mL. ADDITIONAL FINDINGS: Mildly prominent right ovary visualized measuring 2.2 x 2.0 x 2.0 cm with internal calcifications, felt to be within normal limits for age. No definite masses or cystic abnormalities. US/US retroperitoneal comp IMPRESSION: 1. Nonobstructing 3 mm right renal calculus. 2. Kidneys are otherwise normal. 3. Normal urinary bladder. 28.4 mL post void residual. 4. Mildly prominent right ovary, likely within normal limits for age. Consider dedicated transvaginal pelvic ultrasound if felt warranted. Electronically signed by: Lee Rankin MD 04/08/2024 09:19 AM EST Dictated By: Lee Rankin MD Signed By: <Electronically signed by Lee Rankin MD in OV> 04/08/24 0919 DD/ 1007 TD/TT: 03/25/24 1020 Professional Services Specialist: [facility] External Provider IMG US PROCEDURES Final Result * Cologuard?? colon cancer screening (02/23/2023 10:44 AM EST) Cologuard Result Negative Negative 03/01/20 23 3:14 PM EST [facility] (CLIA #:[id number]) Comment: NEGATIVE TEST RESULT. A negative Cologuard result indicates a low likelihood that a colorectal cancer (CRC) or advanced adenoma (adenomatous polyps with more advanced pre-malignant features) ??is present. The chance that a person with a negative Cologuard test has a colorectal cancer is less than 1 in 1500 (negative predictive value >99.9%) or has an ??advanced adenoma is less than ??5.3% (negative predictive value 94.7%). These data are based on a prospective cross-sectional study of 10,000 individuals at average risk for colorectal cancer who were screened with both Cologuard and colonoscopy. (Javi Frank al, N Engl J Med 2014;370(14):1286- 1297) The normal value (reference range) for this assay is negative. COLOGUARD RE-SCREENING RECOMMENDATION: Periodic colorectal cancer screening is an important part of preventive healthcare for asymptomatic individuals at average risk for colorectal cancer. ??Following a negative Cologuard result, the [place] [employer] and U.S. Multi-Society Task Force screening guidelines recommend a Cologuard re-screening interval of 3 years. References: [place] [employer] Guideline for Colorectal Cancer Screening: https://www.cancer.org/cancer/mckay-trqmjl-cpurcl/ogqrkxgag-gyuujrfjc-vobutwg/ac s-rec ommendations.html.; Bean DK, Mitchell CR, Dank WeberK, Colorectal Cancer Screening: Recommendations for Physicians and Patients from the U.S. Multi-Society Task Force on Colorectal Cancer Screening , Am J Gastroenterology 2017; 112:5320-7758. TEST DESCRIPTION: Composite algorithmic analysis of stool DNA-biomarkers with hemoglobin immunoassay. ?? Quantitative values of individual biomarkers are not reportable and are not associated with individual biomarker result reference ranges. Cologuard is intended for colorectal cancer screening of adults of either sex, 45 years or older, who are at average-risk for colorectal cancer (CRC). Cologuard has been approved for use by the U.S. FDA. The performance of Cologuard was established in a cross sectional study of average-risk adults aged 50-84. Cologuard performance in patients ages 45 to 49 years was estimated by sub-group analysis of near-age groups. Colonoscopies performed for a positive result may find as the most clinically significant lesion: colorectal cancer [4.0%], advanced adenoma (including sessile serrated polyps greater than or equal to 1cm diameter) [20%] or non- advanced adenoma [31%]; or no colorectal neoplasia [45%]. These estimates are derived from a prospective cross-sectional screening study of 10,000 individuals at average risk for colorectal cancer who were screened with both Cologuard and colonoscopy. (Javi Frank al, N Engl J Med 2014;370(14):3713-5875.) Cologuard may produce a false negative or false positive result (no colorectal cancer or precancerous polyp present at colonoscopy follow up). A negative Cologuard test result does not guarantee the absence of CRC or advanced adenoma (pre-cancer). The current Cologuard screening interval is every 3 years. ([place] [employer] and [place].[employer] Multi-[employer]ociety Task Force). Cologuard performance data in a 10,000 patient pivotal study using colonoscopy as the reference method can be accessed at the following location: [email or web address]/results. Additional description of the Cologuard test process, warnings and precautions can be found at www.[email or web address]. Stool specimen (specimen) 02/23/2023 10:44 AM EST 02/24/2023 1:44 PM EST us Jackie Abdi MD LAB MOLECULAR DIAGNOSTICS ORDERA BLES Final Result [facility] (CLIA #:[id number]) [address] [place] [address], * Thinprep TIS PAP And HPV mRNA E6/E7, CT/NG, TRICH (04/08/2022 4:21 PM EST) Clinical Information: SCREENING, PELVIC PAIN [facility] LMP: NONE GIVEN [facility] Prev. PAP: NONE GIVEN [facility] Prev. BX: NONE GIVEN [facility] SOURCE: None given [facility] Statement Of Adequacy: [facility] Comment: Satisfactory for evaluation. Endocervical/transformation zone component present. Age and/or menstrual status not provided Interpretation/Re sult: Negative for intraepithelial lesion or malignancy. [facility] COMMENT: This Pap test has been evaluated with computer assisted technology. [facility] Fuel Cell Test Engineer: Jose Vitals ([email or web address])t Comment: DMM CT(ASCP) CT screening location: [address] ??[address] (Always Message) Que [facility] Comment: EXPLANATORY NOTE: The Pap is a screening test for cervical cancer. It is not a diagnostic test and is subject to false negative and false positive results. It is most reliable when a satisfactory sample, regularly obtained, is submitted with relevant clinical findings and history, and when the Pap result is evaluated along with historic and current clinical information. HPV nRNA E6/E7 Not Detected Not Detected [facility] Comment: Methodology: Fur Storage Clerk-Mediated Amplification This assay detects E6/E7 viral messenger RNA (mRNA) from 14 high-risk HPV types (16,18,31,33,35,39,45,51,52,56,58,59,66,68). Cervical sources are required for HPV testing. If a vaginal source from a patient who has had a total hysterectomy with removal of cervix was submitted, please contact the testing laboratory for alternative testing options. For additional information, please refer to http://Brightkit.RedKLEVER/faq/RUA915y5 (This link if provided for information/ educational purposes only.) Chlamydia trachomatis RNA, TMA, Urogenital NOT DETECTED NOT DETECTED [facility] Neisseria gonorrhoeae RNA, TMA, Urogenital NOT DETECTED NOT DETECTED [facility] (Always Message) Que [facility] Comment: The analytical performance characteristics of this assay, when used to test SurePath(TM) specimens have been determined by [employer]. The modifications have not been cleared or approved by the FDA. This assay has been validated pursuant to the CLIA regulations and is used for clinical purposes. For additional information, please refer to https://Brightkit.SportsHedge.High Cloud Security/faq/FYY752 (This link is being provided for information/ educational purposes only.) Trichomonas vaginalis, QL, TMA, PAP Vial NOT DETECTED NOT DETECTED [facility] Comment: The analytical performance characteristics of this assay have been determined by [employer]. The modifications have not been cleared or approved by the FDA. This assay has been validated pursuant to the CLIA regulations and is used for clinical purposes. For additional information, please refer to http://Brightkit.RedKLEVER/ faq/Trichomonastma (This link is being provided for information/ educational purposes only.) 04/08/2022 4:21 PM EST 04/09/2022 11:04 AM EST Narrative [facility] - 04/14/2022 10:42 AM EST FASTING: UNKNOWN Pola Maldonado [facility] LAB PATHOLOGY ORDERABLES Final Result [facility] [address] [facility], [address] [place] [address] [employer] [facility] [address] [facility] [address] [facility], ([address]) [place] [address] * HEPATITIS C AB W/REFL TO HCV RNA, QN, PCR (12/12/2020 10:12 AM EDT) HEPATITIS C ANTIBODY NON-REACT COLE NON-REACT COLE [facility] INDEX 0.09 <1.00 [facility] Comment: ?? HCV antibody was non-reactive. There is no laboratory ?? evidence of HCV infection. ?? In most cases, no further action is required. However, if recent HCV exposure is suspected, a test for HCV RNA (test code 90231) is suggested. ?? For additional information please refer to http://education.RedKLEVER/faq/JNO42w7 (This link is being provided for informational/ educational purposes only.) ?? 12/12/2020 10:1 2 AM EDT Hiren Garcia MD HISTORICAL/NON ORDERABLE LABS Fi nal Result [facility] [address] * HIV 1/2 ANTIGEN/ANTIBODY,FOURTH GENERATION W/RFL (12/12/2020 10:12 AM EDT) HIV-1/2 ANTIGEN AND ANTIBODIES, 4TH GENERATION W/ REFLEX NON-REACT [facility] Comment: HIV-1 antigen and HIV-1/HIV-2 antibodies were not detected. There is no laboratory evidence of HIV infection. ?? PLEASE NOTE: This information has been disclosed to you from records whose confidentiality may be protected by state law. ??If your state requires such protection, then the state law prohibits you from making any further disclosure of the information without the specific written consent of the person to whom it pertains, or as otherwise permitted by law. A general authorization for the release of medical or other information is NOT sufficient for this purpose. ? For additional information please refer to http://Brightkit.RedKLEVER/faq/WII331 (This link is being provided for informational/ educational purposes only.) ? The performance of this assay has not been clinically validated in patients less than 2 years old. ?? 12/12/2020 10:1 2 AM EDT us Hiren Garcia MD LAB BLOOD ORDERABLES Final Resul t Performing Organization Address City/State/ZIP Co mo Phone Number [facility] Critical access hospital [address] from Last 3 Months or Most Recently Relevant to Health Maintenance Insurance C[facility] [place] [address] Care Teams Gas Refrigerator Servicer Relationship Specialty Start Date End Date Jackie Abdi MD [address] [place] [address] PCP - General Family Medicine 04/29/13
--- OUTSIDE RECORDS SUMMARY | 2024-06-02 19:17 | XMS_ITS | Encounter Summary ---
Author Organization [employer] Address [address] [facility] 7t [place] [address] Care Team Providers Care College Service Officer Name Role Phone Jackie Abdi MD Primary Care Provider [phone] Reason for Visit * Reason Comments Med Refill Encounter Details Date Type Department Care Team ([facility] st Contact Info) Description 11/13/2023 Refill [facility] MEDICINE [address] [place] [address] Jackie Abdi MD [address] [place] [address] Social History Tobacco Use Types Packs/Day Years [...] Description 06/21/2024 10:00 AM EDT Office Visit [facility] CHC MED & PEDS [address] [place] [address] Jackie Abdi MD 505 [place] [address] documented as of this encounter Visit Diagnoses Not on filedocumented in this encounter Additional Health Concerns Assessment Noted Time PHQ-9 Depression Total Score: 21 023 8:57 AM EDT documented as of this encounter Care Teams College Service Officer Relationship Specialty Start Date End Date Jackie Abdi MD [address] [place] [address] PCP - General Family Medicine 04/29/13 documented as of this encounter
--- OUTSIDE RECORDS SUMMARY | 2024-06-02 19:17 | XMS_ITS | Encounter Summary ---
Author Organization [employer] Address [address] [facility] 7t [place] [address] Care Team Providers Care Vacuum Plastic Forming Machine Operator Name Role Phone Jackie Abdi MD Primary Care Provider [phone] Reason for Visit * Reason Comments Med Refill Encounter Details Date Type Department Care Team ([facility] st Contact Info) Description 05/08/2024 Refill [facility] MEDICINE [address] [place] [address] Jackie Abdi MD [address] [place] [address] Acute pain of right shoulder Social History [...] 06/21/2024 10:00 AM EDT Office Visit [facility] MED & PEDS 505 [place] [address] Jackie Abdi MD 505 [place] [address] documented as of this encounter Visit Diagnoses Diagnosis Acute pain of right shoulder documented in this encounter Additional Health Concerns Assessment Noted Time PHQ-9 Depression Total Score: 14 025 11:23 AM EST documented as of this encounter Care Teams Vacuum Plastic Forming Machine Operator Relationship Specialty Start Date End Date Jackie Abdi MD [address] [place] [address] PCP - General Family Medicine 04/29/13 documented as of this encounter
--- OUTSIDE RECORDS SUMMARY | 2024-06-02 19:17 | XMS_ITS | Encounter Summary ---
Author Organization [employer] Address [address] [facility] 7t [place] [address] Care Team Providers Care Route Driver Coin Machines Name Role Phone Jackie Abdi MD Primary Care Provider [phone] Reason for Visit * Reason Onset Date Comments Results 04/30/2022 Encounter Details Date Type Department Care Team ([facility] Contact Info) Description 04/30/2022 Telephone [facility] MEDICINE [address] [place] [address] Jackie Abdi MD [address] [place] [address] Results Social History Tobacco Use Types Packs/Day Years [...] was confirmed or suspected to have Coronavirus/COVID-19? Yes 04/16/2022 10:09 AM EST documented as of this encounter Miscellaneous Notes * Telephone Encounter - Jorge Martinez - 04/30/2022 3:48 PM EST Tc from pt requesting a call back regarding xray results Please contact pt at [phone] documented in this encounter Plan of Treatment Upcoming Encounters Date Type Department Care Team (Late st Contact Info) Description 06/21/2024 10:00 AM EDT Office Visit [facility] CHC MED & PEDS [address] [place] [address] Jackie Abdi MD [address] [place] [address] documented as of this encounter Visit Diagnoses Not on filedocumented in this encounter Care Teams Route Driver Coin Machines Relationship Specialty Start Date End Date Jackie Abdi MD [address] [place] [address] PCP - General Family Medicine 04/29/13 documented as of this encounter
--- OUTSIDE RECORDS SUMMARY | 2024-06-02 19:17 | XMS_ITS | Encounter Summary ---
Author Organization [employer] Address [address] [facility] 7t [place] [address] Care Team Providers Care Inventory Analyst Name Role Phone Jackie Abdi MD Primary Care Provider [phone] Reason for Visit * Reason Onset Date Comments Results 08/04/2023 Encounter Details Date Type Department Care Team ([facility] Contact Info) Description 08/04/2023 Telephone [facility] CHC MED & PEDS [address] [place], [place] [phone] Jackie Abdi MD [address] [place] [address] Results Social History Tobacco Use Types Packs/Day [...] encounter Miscellaneous Notes * Telephone Encounter - Wing Carlene RN - 08/06/2023 1:47 PM EDT Tc to pt to inquired about labs. Pt stated these were done by [facility] ED and that they diagnosed pt with UTI. Pt stated her pharmacy gave her her only some of the cefuroxime as they were out of stock. Called pt's pharmacy to confirm with the pharmacist stating they were refilling the rest of the cefuroxime that would be ready in an hour. Relayed information to pt who also stated she was fatigued and dizzy with some nausea, and diarrhea from the antibiotics. Denies fever, advised pt to hydrate and to continue to take antibiotics and to call us if symptoms do not improve or go to the ED if symptomsbecome very severe. Pt verbalized understanding and agreement with plan. * Telephone Encounter - Tabby Lugo - 08/04/2023 10:15 AM EDT TC from pt requesting call back regarding Results. Type of results: labs and culture Date when done: 08/02 Facility: [facility] Please contact pt at [phone] documented in this encounter Plan of Treatment Upcoming Encounters Date Type Department Care Team (Late st Contact Info) Description 06/21/2024 10:00 AM EDT Office Visit [facility] MED & PEDS [address] [place] [address] Jackie Abdi MD [address] [place] [address] documented as of this encounter Visit Diagnoses Not on filedocumented in this encounter Additional Health Concerns Assessment Noted Time PHQ-9 Depression Total Score: 21 06/26/ 023 8:57 AM EDT documented as of this encounter Care Teams Inventory Analyst Relationship Specialty Start Date End Date Jackie Abdi MD [address] [place] [address] PCP - General Family Medicine 04/29/13 documented as of this encounter
--- OUTSIDE RECORDS SUMMARY | 2024-06-02 19:17 | XMS_ITS | Encounter Summary ---
Author Organization [employer] Address [address] [facility] 7t [place] [address] Care Team Providers Care Strapper And Buffer Name Role Phone Jackie Abdi MD Primary Care Provider [phone] Encounter Details Date Type Department Care Team (Late Contact Info) Description 06/03/2022 Orders Only [facility] CHC MED & PEDS [address] [place] [address] Kaylin Kaur MD [address] [place] [address] Mid-back pain, acute (Primary Dx) Social History Tobacco Use Types Packs/Day Years [...] AM EST documented as of this encounter Plan of Treatment Upcoming Encounters Date Type Department Care Team (Late Contact Info) Description 06/21/2024 10:00 AM EDT Office Visit [facility] MED & PEDS [address] [place], [place] [phone] Jackie Abdi MD [address] [place] [address] documented as of this encounter Visit Diagnoses Diagnosis Mid-back pain, acute- Primary documented in this encounter Care Teams Strapper And Buffer Relationship Specialty Start Date End Date Jackie Abdi MD [address] [place] [address] PCP - General Family Medicine 04/29/13 documented as of this encounter
--- OUTSIDE RECORDS SUMMARY | 2024-06-02 19:17 | XMS_ITS | Encounter Summary ---
Author Organization [employer] Address [address] [facility] 7t [place] [address] Care Team Providers Care Director Of Slot Operations Name Role Phone Jackie Abdi MD Primary Care Provider [phone] Reason for Visit * Reason Onset Date Comments Nurse Triage 08/03/2023 Encounter Details Date Type Department Care Team ([facility] st Contact Info) Description 08/03/2023 Telephone [facility] MEDICINE [address] [place] [address] Jackie Abdi MD [address] [place] [address] Nurse Triage Social History Tobacco Use Types Packs/Day Years [...] encounter Miscellaneous Notes * Telephone Encounter - Kayleigh Bates RN - 08/04/2023 9:21 AM EDT Noted. Pt is scheduled next week with PCP. Pt to return call if needed to be seen sooner. * Telephone Encounter - Kristyn Metz RN - 08/03/2023 11:46 AM EDT called pt to triage, spoke to pt. pt states 3 days duration of RLQ pain, that radiates down the front of her right leg. pt denies vomiting but is nauseous, denies fever, diarrhea, other illness symptoms. pt states pain is getting pretty severe and she is not eating much. pt is drinking fluids well but having severe pain at this point. pt states is currently at the [facility] ER for evaluation. advised to complete the visit, and call back for follow up as needed. pt understands and agrees with plan. will send task to the team nurses regarding ER visit today. insurance verified. Protocol Used: Abdominal Pain - Male (Adult) Protocol-Based Disposition: Go to ED Now Positive Triage Question: * Severe abdominal pain (e.g., excruciating) * All higher-acuity triage questions were negative Care Advice Discussed: * Rest * Drink Clear Fluids * Diet * Reasons To Call Back - Severe pain lasts over 1 hour - You become worse * Telephone Encounter - Sarah Green - 08/03/2023 11:21 AM EDT Symptom: Abdominal Pain - Female - Not Outcome: Schedule an appointment to be seen within 24 hours Reason: Sharp pain in right side. The caller accepted this outcome documented in this encounter Plan of Treatment Upcoming Encounters Date Type Department Care Team (Late st Contact Info) Description 06/21/2024 10:00 AM EDT Office Visit [facility] MED & PEDS [address] [place] [address] Jackie Abdi MD 505 [place] [address] documented as of this encounter Visit Diagnoses Not on filedocumented in this encounter Additional Health Concerns Assessment Noted Time PHQ-9 Depression Total Score: 21 06/26/ 023 8:57 AM EDT documented as of this encounter Care Teams Director Of Slot Operations Relationship Specialty Start Date End Date Jackie Abdi MD [address] [place] [address] PCP - General Family Medicine 04/29/13 documented as of this encounter
== END 2024-06-02 15:59 | disposition home or self-care (01) ==
LOC: HO.HOSX 15:58
PROVIDERS: Visit Provider Physician Assistant
DX: Z13.89 Encounter for screening for other disorder (principal)

== ENCOUNTER 2024-06-03 08:35 | Outpatient (AMB) | payer MEDICAID, SELFPAY ==
--- NOTE | 2024-06-03 08:48 | A.OFFVIS_ITS ---
Intake Visit Reasons: New prob- Chronic pain in right shoulder Intake Note: Sade is a 54 year old right hand dominant female who presents today for a new problem visit for an evaluation of right shoulder. Patient reports pain started about 2 years ago no injury she can recall. Pain radiates to her shoulder blades and down her arm. NO neck pain. She has numbness and tingling daily on and off through out the day. She has tried injection and P.T with good improvement. States she would like to discuss an injection for her shoulder today. Allergies sulfamethoxazole [From Bactrim] Allergy (Intermediate, Verified 06/03/24 08:52) Facial Swelling trimethoprim [From Bactrim] Allergy (Intermediate, Verified 06/03/24 08:52) Facial Swelling Medication List - Last Reconciled 06/03/24 by Alonzo Rivas PA-C albuterol sulfate 90 mcg/actuation 2 inhalations inhalation Q6H PRN azelastine 1 spray intranasal BID budesonide-formoterol 160-4.5 mcg/actuation (Symbicort) 2 puffs inhalation BID PRN celecoxib 200 mg PO BID dicyclomine 10 mg PO TID estradiol 0.01%(0.1mg/gram) pea sized amount to urethra daily x1 month then 3 times a week thereafter 30 days folic acid 1 mg PO DAILY hydrocortisone 1% (Anti-Itch (hydrocortisone)) 1 appl topical BID hydroxyzine HCl 25 mg PO DAILY omeprazole 40 mg PO DAILY@0630 simvastatin 10 mg PO DAILY walker Folding Front wheeled walker HPI HPI New prob- Chronic pain in right shoulder: Details: 54 yo female presents to the office today for right shoulder pain. She has pain with reaching and grabbing objects. She has pain with sleeping on the right side. She has injections approx 2 years ago at [facility]. She states the injections were unhelpful. She states she does not recall if she has had an MRi. She has done PT on the right shoulder with minimal improvement. [facility] Medical History VSD (ventricular septal defect) Infection associated with internal right knee prosthesis Cellulitis History of pulmonary embolism History of DVT (deep vein thrombosis) Post-traumatic osteoarthritis of right knee Sleep apnea High cholesterol Asthma HTN (hypertension) Surgical History Status post total knee replacement, right History of bunionectomy of both great toes Hx of gastric bypass History of laparoscopic cholecystectomy History of H/O right knee surgery Family History Father Heart problem Mother Heart problem Social History (Updated 06/03/24 @ 08:54 by JOSY Anne) Household Members: Spouse Housing: House Are you a primary healthcare administration internship to a significant other at home: No Do you presently have visiting nurse or other home services: No Alcohol intake: never Patient Tobacco Use Status: Never used Tobacco service: No Current occupational status: unemployed and disabled Current occupation: rt handed. Review of Systems Const All systems reviewed & are unremarkable except as noted in HPI and below Physical Exam Extrem Other: Right shoulder normal to inspection. Forward flexion to 90 degrees external rotation to 90 internal rotation to back pocket. Positive Jean. Positive cross-body abduction. Discomfort with rotator cuff strength testing. Office Procedures AMB Joint Injection/Aspiration Joint Injection/Aspiration Primary Site: right shoulder Prep: site was prepped using aseptic technique, ethochloride spray was applied and injection warnings given Injected: 80 mg of, DepoMedrol, with 8 mL of, 1% plain lidocaine and in the subcromial space Approach Used: posterolateral Procedure: The patient tolerated the procedure well and there was some relief with the local anesthesia Coding 39919 - Glenohumeral/Tronchanteric Bursa/Intraarticular Procedure code (CPT) selection complete Results Reviewed Results Reviewed: Xrays were obtained in the office today and personally reviewed by me of the right shoulder show mild degenerative changes Assessment & Plan Assessment & Plan (1) Osteoarthritis of right acromioclavicular joint: Code(s): M19.011 - Primary osteoarthritis, right shoulder Category: Medical (2) Tendinitis of right rotator cuff: Code(s): M75.81 - Other shoulder lesions, right shoulder Category: Medical Plan We discussed options today which include cortisone injection in the right shoulder to help with her discomfort and improve her functional capacity. We also discussed the role of an MRI to further look at the rotator cuff and surrounding structures given her ongoing discomfort and failed conservative derrick tment. She is content with this plan. Right shoulder injection tolerated well. She will see me back once the MRI scan is complete. Orders: Orders XR shoulder RT min 2V Today M25.511 - Pain in right shoulder Coding Level of Care Code Est Pt Level 3 (42767) Complex EM visit Add On G2211 Diagnoses Osteoarthritis of right acromioclavicular joint M19.011 Tendinitis of right rotator cuff M75.81 CPT Codes Coding - Joint 7: 77555 - Glenohumeral/Tronchanteric Bursa/Intraarticular ([id number])
--- OUTSIDE RECORDS SUMMARY | 2024-06-03 09:03 | XMS_ITS | Encounter Summary ---
Author Organization [employer] Address [address] [facility] 7t [place] [address] Care Team Providers Care Salon Designer Name Role Phone Jackie Abdi MD Primary Care Provider [phone] Encounter Details Date Type Department Care Team (Late Contact Info) Description 08/28/2022 Orders Only [facility] MED & PEDS [address] [place], [place] [phone] Ronnell Sanderson MD 505 [place] [address] Social History Tobacco Use Types Packs/Day Years [...] 10:00 AM EDT Office Visit [facility] MED & PEDS [address] [place] [address] Jackie Abdi MD [address] [place] [address] documented as of this encounter Visit Diagnoses Not on filedocumented in this encounter Additional Health Concerns Assessment Noted Time PHQ-9 Depression Total Score: 21 023 8:57 AM EDT documented as of this encounter Care Teams Salon Designer Relationship Specialty Start Date End Date Jackie Abdi MD [address] [place] [address] PCP - General Family Medicine 04/29/13 documented as of this encounter
--- OUTSIDE RECORDS SUMMARY | 2024-06-03 09:03 | XMS_ITS | Clinical Summary ---
Author Organization [facility] Facility Address [address] [place] [address] Care Team Providers Care Windsurfing Instructor Name Role Phone Jackie Abdi MD Primary Care Provider [phone] Allergies No known active allergies Medications omeprazole [...] Insurance [place] Care Teams Windsurfing Instructor Relationship Specialty Start Date End Date Jackie Abdi MD [address] [place] [address] PCP - General 04/09/20
--- OUTSIDE RECORDS SUMMARY | 2024-06-03 09:03 | XMS_ITS | Encounter Summary ---
Author Organization [employer] Address [address] [place] [address] 7[place] [address] Care Team Providers Care Curtain Fitter Name Role Phone Jackie Abdi MD Primary Care Provider [phone] Encounter Details Date Type Department Care Team (Late st Contact Info) Description 10/01/2022 Abstract [facility] MEDICINE [address] [place] [address] Jackie Abdi MD 505 [place] [address] Social History Tobacco Use Types Packs/Day Years [...] Description 06/21/2024 10:00 AM EDT Office Visit [facility]C MED & PEDS 505 [place] [address] Jackie Abdi MD 505 [place] [address] documented as of this encounter Visit Diagnoses Not on filedocumented in this encounter Additional Health Concerns Assessment Noted Time PHQ-9 Depression Total Score: 21 023 8:57 AM EDT documented as of this encounter Care Teams Curtain Fitter Relationship Specialty Start Date End Date Jackie Abdi MD 230 [place] [address] PCP - General Family Medicine 04/29/13 documented as of this encounter
--- OUTSIDE RECORDS SUMMARY | 2024-06-03 09:03 | XMS_ITS | Clinical Summary ---
Author Organization [address] [place] [address] [place] [phone] Phone Care Team Providers Care Embroiderer Name Role Phone Jackie Abdi MD Primary Care Provider [phone] Allergies No known active allergies Medications cholecalciferol [...] Date Site/Laterality Comments OTHER SURGICAL HISTORY PROCEDURE: [place] ARTHRS AID TIBIAL FRACTURE PROXIMAL UNICONDYLAR CHOLECYSTECTOMY PROCEDURE: [place] LAPAROSCOPY SURG CHOLECYSTECTOMY BUNIONECTOMY PROCEDURE: BUNION SURGERY, SIMPLE REMOVAL SECTION PROCEDURE: [place] DELIVERY ONLY Medical History Medical History Date Comments Hypercholesteremia DX:Hyperchole steremia Class 2 severe obesity due t o excess calories with serious comorbidity and body mass index (BMI) of 35.0 to 35.9 in adult ([facility]) 05/03/2020 DX:Class 2 severe obesity du e to excess calories with serious comorbidity and body mass index (BMI) of 35.0 to 35.9 in adult ([facility]) Gastroesophageal reflux dise ase with esophagitis without [...] 2:40 PM EST Office Visit [facility] [place] [address] [facility] [address] [place] [address] Artis Leyva PA [address] [facility] [address] [place] [address] 06/16/2024 3:45 PM EDT Office Visit Bariatric Surgery - [place] [address] [facility] [address] [place] [address] Aleksandar Heaton MD 175 [facility] 120 [place] [address] Health Maintenance Due Date Last Done Comments [...] Results * Hepatitis C Screening (09/22/2023) Pathologist [facility] Hepatitis C Screening abstracted Historical Provider [...] Relevant to Health Maintenance Insurance [place] Care Teams Embroiderer Relationship Specialty Start Date End Date Jackie Abdi MD [address] [place] [address] PCP - General 10/20/16
--- OUTSIDE RECORDS SUMMARY | 2024-06-03 09:03 | XMS_ITS | Encounter Summary ---
Author Organization [employer] Address [address] [facility] 7t [place] [address] Care Team Providers Care Core Dipper Name Role Phone Jackie Abdi MD Primary Care Provider [phone] Reason for Visit * Reason Comments Med Refill Encounter Details Date Type Department Care Team (Late Contact Info) Description 09/18/2022 Refill [facility] CHC MED & PEDS 505 [place], [place] [phone] Ronnell Sanderson MD 505 [place] [address] Mid-back pain, acute Social History Tobacco Use [...] 10:00 AM EDT Office Visit [facility] CHC MED & PEDS 505 [place] [address] Jackie Abdi MD 505 [place] [address] documented as of this encounter Visit Diagnoses Diagnosis Mid-back pain, acute documented in this encounter Additional Health Concerns Assessment Noted Time PHQ-9 Depression Total Score: 21 023 8:57 AM EDT documented as of this encounter Care Teams Core Dipper Relationship Specialty Start Date End Date Jackie Abdi MD [address] [place] [address] PCP - General Family Medicine 04/29/13 documented as of this encounter
--- OUTSIDE RECORDS SUMMARY | 2024-06-03 09:03 | XMS_ITS | Encounter Summary ---
Author Organization [employer] Address 75 [facility] 7t [place] [address] Care Team Providers Care Grade And Center Marker Name Role Phone Jackie Abdi MD Primary Care Provider [phone] Reason for Visit * Reason Onset Date Comments manager shift 09/09/2023 Encounter Details Date Type Department Care Team (Late st Contact Info) Description 09/09/2023 Telephone [facility] CHC ADULT DENTAL [address] [place] [address] Sharon Fernandez DMD manager shift Social History Tobacco Use Types Packs/Day Years [...] t he electric, gas, oil or water [employer] threatened to shut off services in your [...] Patient called in stating hat she contacted [employer] to see where she can go [...] Description 06/21/2024 10:00 AM EDT Office Visit [facility] CHC MED & PEDS 505 [place] [address] Jackie Abdi MD 505 [place] [address] documented as of this encounter Visit Diagnoses Not on filedocumented in this encounter Additional Health Concerns Assessment Noted Time PHQ-9 Depression Total Score: 21 023 8:57 AM EDT documented as of this encounter Care Teams Grade And Center Marker Relationship Specialty Start Date End Date Jackie Abdi MD [address] [place] [address] PCP - General Family Medicine 04/29/13 documented as of this encounter
--- OUTSIDE RECORDS SUMMARY | 2024-06-03 09:04 | XMS_ITS | Encounter Summary ---
Author Organization [employer] Address [address] [facility] 7t [place] [address] Care Team Providers Care Pearl Stringer Name Role Phone Jackie Abdi MD Primary Care Provider [phone] Encounter Details Date Type Department Care Team ([facility] st Contact Info) Description 03/11/2023 Abstract [facility] 230 [place] [address] Jackie Abdi MD [address] [place] [address] Social History Tobacco Use Types Packs/Day Years [...] EDT Office Visit [facility] MED & PEDS 505 [place] [address] Jackie Abdi MD 505 [place] [address] documented as of this encounter Visit Diagnoses Not on filedocumented in this encounter Additional Health Concerns Assessment Noted Time PHQ-9 Depression Total Score: 21 023 8:57 AM EDT documented as of this encounter Care Teams Pearl Stringer Relationship Specialty Start Date End Date Jackie Abdi MD [address] [place] [address] PCP - General Family Medicine 04/29/13 documented as of this encounter
--- OUTSIDE RECORDS SUMMARY | 2024-06-03 09:04 | XMS_ITS | Encounter Summary ---
Author Organization [employer] Address [address] [facility] 7t [place] [address] Care Team Providers Care Blueprinter Name Role Phone Jackie Abdi MD Primary Care Provider [phone] Reason for Visit * Reason Onset Date Comments Med Refill 02/26/2023 Encounter Details Date Type Department Care Team (Late st Contact Info) Description 02/26/2023 Refill [facility] MED & PEDS 505 [place] [address] Jackie Abdi MD 505 [place] [address] Social History Tobacco Use Types Packs/Day Years [...] Description 06/21/2024 10:00 AM EDT Office Visit [facility] MED & PEDS 505 [place] [address] Jackie Abdi MD 505 [place] [address] documented as of this encounter Visit Diagnoses Not on filedocumented in this encounter Additional Health Concerns Assessment Noted Time PHQ-9 Depression Total Score: 21 023 8:57 AM EDT documented as of this encounter Care Teams Blueprinter Relationship Specialty Start Date End Date Jackie Abdi MD [address] [place] [address] PCP - General Family Medicine 04/29/13 documented as of this encounter
--- OUTSIDE RECORDS SUMMARY | 2024-06-03 09:04 | XMS_ITS | Encounter Summary ---
Author Organization [employer] Address 75 [facility] 7t [place] [address] Care Team Providers Care Hydrometer Tester Name Role Phone Jackie Abdi MD Primary Care Provider [phone] Reason for Visit * Reason Comments Med Refill Encounter Details Date Type Department Care Team ([facility] st Contact Info) Description 05/08/2024 Refill [facility] MEDICINE 230 [place] [address] Jackie Abdi MD [address] [place] [address] Acute pain of right shoulder Social History [...] 10:00 AM EDT Office Visit [facility] MED & PEDS 505 [place] [address] Jackie Abdi MD 505 [place] [address] documented as of this encounter Visit Diagnoses Diagnosis Acute pain of right shoulder documented in this encounter Additional Health Concerns Assessment Noted Time PHQ-9 Depression Total Score: 14 025 11:23 AM EST documented as of this encounter Care Teams Hydrometer Tester Relationship Specialty Start Date End Date Jackie Abdi MD [address] [place] [address] PCP - General Family Medicine 04/29/13 documented as of this encounter
--- OUTSIDE RECORDS SUMMARY | 2024-06-03 09:04 | XMS_ITS | Encounter Summary ---
Author Organization [employer] Address [address] [place] [address] 7 [place] [address] Care Team Providers Care Order Dispatcher Name Role Phone Jackie Abdi MD Primary Care Provider [phone] Reason for Visit * Reason Onset Date Comments Med Refill 10/24/2022 Encounter Details Date Type Department Care Team (Late st Contact Info) Description 10/24/2022 Refill [facility] MEDICINE 230 [place] [address] Jackie Abdi MD 505 [place] [address] Social History Tobacco Use Types Packs/Day Years [...] Description 06/21/2024 10:00 AM EDT Office Visit [facility] CHC MED & PEDS 505 [place], [place] [phone] Jackie Abdi MD 505 [place], [place] [phone] documented as of this encounter Visit Diagnoses Not on filedocumented in this encounter Additional Health Concerns Assessment Noted Time PHQ-9 Depression Total Score: 21 023 8:57 AM EDT documented as of this encounter Care Teams Order Dispatcher Relationship Specialty Start Date End Date Jackie Abdi MD [address] [place] [address] [place] [address] PCP - General Family Medicine 04/29/13 documented as of this encounter
--- OUTSIDE RECORDS SUMMARY | 2024-06-03 09:04 | XMS_ITS | Encounter Summary ---
Author Organization [employer] Address [address] [facility] 7t [place] [address] Care Team Providers Care Process Analyst Name Role Phone Jackie Abdi MD Primary Care Provider [phone] Reason for Visit * Reason Onset Date Comments Results 08/04/2023 Encounter Details Date Type Department Care Team ([facility] Contact Info) Description 08/04/2023 Telephone [facility] CHC MED & PEDS 505 [place], [place] [phone] Jackie Abdi MD 505 [place] [address] Results Social History Tobacco Use Types Packs/Day [...] labs. Pt stated these were done by [facility] and that they diagnosed pt with [...] and culture Date when done: 08/02 Facility: [facility] Please contact pt at [phone] documented in this encounter Plan of Treatment Upcoming Encounters Date Type Department Care Team (Late st Contact Info) Description 06/21/2024 10:00 AM EDT Office Visit [facility] MED & PEDS [address] [place] [address] Jackie Abdi MD [address] [place] [address] documented as of this encounter Visit Diagnoses Not on filedocumented in this encounter Additional Health Concerns Assessment Noted Time PHQ-9 Depression Total Score: 21 06/26/ 023 8:57 AM EDT documented as of this encounter Care Teams Process Analyst Relationship Specialty Start Date End Date Jackie Abdi MD [address] [place] [address] PCP - General Family Medicine 04/29/13 documented as of this encounter
--- OUTSIDE RECORDS SUMMARY | 2024-06-03 09:04 | XMS_ITS | Encounter Summary ---
Author Organization [employer] Address 75 [facility] 7t [place] [address] Care Team Providers Care Principal Technical Writer Name Role Phone Jackie Abdi MD Primary Care Provider [phone] Reason for Visit * Reason Comments Med Refill Encounter Details Date Type Department Care Team ([facility] st Contact Info) Description 10/23/2023 Refill [facility] CHC MED & PEDS 505 [place], [place] [phone] Jackie Abdi MD 505 [place] [address] Social History Tobacco Use Types Packs/Day Years [...] Description 06/21/2024 10:00 AM EDT Office Visit [facility] MED & PEDS 505 [place] [address] Jackie Abdi MD 505 [place] [address] documented as of this encounter Visit Diagnoses Not on filedocumented in this encounter Additional Health Concerns Assessment Noted Time PHQ-9 Depression Total Score: 21 023 8:57 AM EDT documented as of this encounter Care Teams Principal Technical Writer Relationship Specialty Start Date End Date Jackie Abdi MD [address] [place] [address] PCP - General Family Medicine 04/29/13 documented as of this encounter
--- OUTSIDE RECORDS SUMMARY | 2024-06-03 09:04 | XMS_ITS | Encounter Summary ---
Author Organization [employer] Address 75 [facility] 7t [place] [address] Care Team Providers Care Lace Cutter Name Role Phone Jackie Abdi MD Primary Care Provider [phone] Reason for Visit * Reason Comments Med Refill Encounter Details Date Type Department Care Team ([facility] st Contact Info) Description 06/08/2023 Refill [facility] MEDICINE 230 [place] [address] Jackie Abdi MD [address] [place] [address] Depressed mood Social History Tobacco Use Types [...] Description 06/21/2024 10:00 AM EDT Office Visit [facility] MED & PEDS 505 [place] [address] Jackie Abdi MD 505 [place] [address] documented as of this encounter Visit Diagnoses Diagnosis Depressed mood documented in this encounter Additional Health Concerns Assessment Noted Time PHQ-9 Depression Total Score: 21 023 8:57 AM EDT documented as of this encounter Care Teams Lace Cutter Relationship Specialty Start Date End Date Jackie Abdi MD [address] [place] [address] PCP - General Family Medicine 04/29/13 documented as of this encounter
--- OUTSIDE RECORDS SUMMARY | 2024-06-03 09:04 | XMS_ITS | Encounter Summary ---
Author Organization [employer] Address 75 [facility] 7t [place] [address] Care Team Providers Care Cabin Cleaning Supervisor Name Role Phone Jackie Abdi MD Primary Care Provider [phone] Reason for Visit * Reason Onset Date Comments Referral 08/26/2023 Encounter Details Date Type Department Care Team ([facility] st Contact Info) Description 08/26/2023 Telephone [facility] MEDICINE 230 [place] [address] Jackie Abdi MD [address] [place] [address] Referral Social History Tobacco Use Types Packs/Day [...] EDT Tc from pt was advised by liquefied petroleum gasfitter office to request new referral due not being seen until 2020. Address: [address] [place] [address] [address] [facility] [address] Facility Name: [facility]. Type of Specialist: [facility] Pt is also requesting referral for a urologist and or molder shoulder pad due to some recent concerns. (Ptwas triaged) If any questions please contact pt at [phone]. documented in this encounter Plan of Treatment Upcoming Encounters Date Type Department Care Team ([facility] st Contact Info) Description 06/21/2024 10:00 AM EDT Office Visit [facility] MED & PEDS 505 [place] [address] Jackie Abdi MD 505 [place] [address] documented as of this encounter Visit Diagnoses Not on filedocumented in this encounter Additional Health Concerns Assessment Noted Time PHQ-9 Depression Total Score: 21 023 8:57 AM EDT documented as of this encounter Care Teams Cabin Cleaning Supervisor Relationship Specialty Start Date End Date Jackie Abdi MD 230 [place] [address] PCP - General Family Medicine 04/29/13 documented as of this encounter
--- OUTSIDE RECORDS SUMMARY | 2024-06-03 09:04 | XMS_ITS | Encounter Summary ---
Author Organization [employer] Address 75 [facility] 7t [place] [address] Care Team Providers Care Rubber Cutter And Shape Carver Name Role Phone Jackie Abdi MD Primary Care Provider [phone] Reason for Visit * Reason Onset Date Comments Appt materials 01/21/2023 Encounter Details Date Type Department Care Team (Late st Contact Info) Description 01/21/2023 Telephone [facility] ADULT DENTAL [address] [place] [address] Sharon Fernandez DMD Appt materials Social History [...] t he electric, gas, oil or water [employer] threatened to shut off services in your [...] Office Visit [facility] CHC MED & PEDS 505 [place] [address] Jackie Abdi MD 505 [place] [address] documented as of this encounter Visit Diagnoses Not on filedocumented in this encounter Additional Health Concerns Assessment Noted Time PHQ-9 Depression Total Score: 21 023 8:57 AM EDT documented as of this encounter Care Teams Rubber Cutter And Shape Carver Relationship Specialty Start Date End Date Jackie Abdi MD [address] [place] [address] PCP - General Family Medicine 04/29/13 documented as of this encounter
--- OUTSIDE RECORDS SUMMARY | 2024-06-03 09:04 | XMS_ITS | Encounter Summary ---
Author Organization [employer] Address 75 [facility] 7t [place] [address] Care Team Providers Care Manager Progressive Care Name Role Phone Jackie Abdi MD Primary Care Provider [phone] Reason for Visit * Reason Comments Med Refill Encounter Details Date Type Department Care Team ([facility] st Contact Info) Description 11/13/2023 Refill [facility] MEDICINE 230 [place] [address] Jackie Abdi MD [address] [place] [address] Social History Tobacco Use Types Packs/Day Years [...] Description 06/21/2024 10:00 AM EDT Office Visit [facility] CHC MED & PEDS 505 [place] [address] Jackie Abdi MD 505 [place] [address] documented as of this encounter Visit Diagnoses Not on filedocumented in this encounter Additional Health Concerns Assessment Noted Time PHQ-9 Depression Total Score: 21 023 8:57 AM EDT documented as of this encounter Care Teams Manager Progressive Care Relationship Specialty Start Date End Date Jackie Abdi MD [address] [place] [address] PCP - General Family Medicine 04/29/13 documented as of this encounter
--- OUTSIDE RECORDS SUMMARY | 2024-06-03 09:04 | XMS_ITS | Encounter Summary ---
Author Organization [employer] Address 75 [facility] 7t [place] [address] Care Team Providers Care Call Worker Name Role Phone Jackie Abdi MD Primary Care Provider [phone] Encounter Details Date Type Department Care Team (Late st Contact Info) Description 12/08/[address] [facility] CHC MED & PEDS 505 [place], [place] [phone] Jackie Abdi MD 505 [place] [address] Social History Tobacco Use Types Packs/Day Years [...] Description 06/21/2024 10:00 AM EDT Office Visit [facility] CHC MED & PEDS [address] [place] [address] Jackie Abdi MD [address] [place] [address] documented as of this encounter Visit Diagnoses Not on filedocumented in this encounter Additional Health Concerns Assessment Noted Time PHQ-9 Depression Total Score: 21 023 8:57 AM EDT documented as of this encounter Care Teams Call Worker Relationship Specialty Start Date End Date Jackie Abdi MD [address] [place] [address] PCP - General Family Medicine 04/29/13 documented as of this encounter
--- OUTSIDE RECORDS SUMMARY | 2024-06-03 09:04 | XMS_ITS | Encounter Summary ---
Author Organization [employer] Address [address] [facility] 7t [place] [address] Care Team Providers Care Ripening Room Attendant Name Role Phone Jackie Abdi MD Primary Care Provider [phone] Reason for Visit * Reason Comments Med Refill Encounter Details Date Type Department Care Team ([facility] st Contact Info) Description 09/16/2023 Refill [facility] CHC MED & PEDS 505 [place], [place] [phone] Jackie Abdi MD 505 [place] [address] Acute pain of right shoulder Social History [...] 10:00 AM EDT Office Visit [facility] MED & PEDS 505 [place] [address] Jackie Abdi MD 505 [place] [address] documented as of this encounter Visit Diagnoses Diagnosis Acute pain of right shoulder documented in this encounter Additional Health Concerns Assessment Noted Time PHQ-9 Depression Total Score: 21 023 8:57 AM EDT documented as of this encounter Care Teams Ripening Room Attendant Relationship Specialty Start Date End Date Jackie Abdi MD [address] [place] [address] PCP - General Family Medicine 04/29/13 documented as of this encounter
--- OUTSIDE RECORDS SUMMARY | 2024-06-03 09:04 | XMS_ITS | Encounter Summary ---
Author Organization [facility] Address [address] [place] [address] [address], [place] [address] Care Team Providers Care Hvac Design Mechanical Engineer Name Role Phone Jackie Abdi MD Primary Care Provider [phone] Encounter Details Date Type Department Care Team (Late st Contact Info) Description 03/18/2022 Orders Only [facility] MED & PEDS 505 [place] [address] Marielos Hooks LPN Social History Tobacco Use [...] 10:00 AM EDT Office Visit [facility] MED & PEDS 505 [place] [address] Jackie Abdi MD 505 [place] [address] documented as of this encounter Visit Diagnoses Not on filedocumented in this encounter Care Teams Hvac Design Mechanical Engineer Relationship Specialty Start Date End Date Jackie Abdi MD [address] [place] [address] PCP - General Family Medicine 04/29/13 documented as of this encounter
--- OUTSIDE RECORDS SUMMARY | 2024-06-03 09:04 | XMS_ITS | Encounter Summary ---
Author Organization [employer] Address [address] [place] [address] [place], [place] [address] Care Team Providers Care Printing Gray Cloth Tender Name Role Phone Jackie Abdi MD Primary Care Provider [phone] Reason for Visit * Reason Onset Date Comments Med Refill 12/08/2022 Encounter Details Date Type Department Care Team (Late st Contact Info) Description 12/08/2022 Refill [facility] MED & PEDS 505 [place] [address] Jackie Abdi MD 505 [place] [address] Social History Tobacco Use Types Packs/Day Years [...] Description 06/21/2024 10:00 AM EDT Office Visit [facility] MED & PEDS 505 [place] [address] Jackie Abdi MD 505 [place] [address] documented as of this encounter Visit Diagnoses Not on filedocumented in this encounter Additional Health Concerns Assessment Noted Time PHQ-9 Depression Total Score: 21 023 8:57 AM EDT documented as of this encounter Care Teams Printing Gray Cloth Tender Relationship Specialty Start Date End Date Jackie Abdi MD [address] [place] [address] PCP - General Family Medicine 04/29/13 documented as of this encounter
--- OUTSIDE RECORDS SUMMARY | 2024-06-03 09:04 | XMS_ITS | Encounter Summary ---
Author Organization [employer] [facility] Address [address] [place] [address] 7 [place] [address] Care Team Providers Care Importer Exporter Name Role Phone Jackie Abdi MD Primary Care Provider [phone] Reason for Visit * Reason Onset Date Comments Med Refill 12/05/2022 Encounter Details Date Type Department Care Team (Late st Contact Info) Description 12/05/2022 Refill [facility] MED & PEDS [address] [place] [address] Abby Duran MD Social History Tobacco Use [...] [facility] [address] [place] [address] Jackie Abdi MD 505 [place] [address] documented as of this encounter Visit Diagnoses Not on filedocumented in this encounter Additional Health Concerns Assessment Noted Time PHQ-9 Depression Total Score: 21 023 8:57 AM EDT documented as of this encounter Care Teams Importer Exporter Relationship Specialty Start Date End Date Jackie Abdi MD [address] [place] [address] PCP - General Family Medicine 04/29/13 documented as of this encounter
--- OUTSIDE RECORDS SUMMARY | 2024-06-03 09:04 | XMS_ITS | Encounter Summary ---
Author Organization [employer] Address [address] [facility] 7t [place] [address] Care Team Providers Care Workforce Management Consultant Name Role Phone Jackie Abdi MD Primary Care Provider [phone] Reason for Visit * Reason Comments Med Refill Encounter Details Date Type Department Care Team ([facility] st Contact Info) Description 06/01/2024 Refill [facility] [address] [place] [address] Jackie Abdi MD [address] [place] [address] Acute pain of right shoulder Social History [...] Description 06/21/2024 10:00 AM EDT Office Visit [facility] MED [facility] PED[facility] 505 [place] [address] Jackie Abdi MD 505 [place] [address] documented as of this encounter Visit Diagnoses Diagnosis Acute pain of right shoulder documented in this encounter Additional Health Concerns Assessment Noted Time PHQ-9 Depression Total Score: 14 025 11:23 AM EST documented as of this encounter Care Teams Workforce Management Consultant Relationship Specialty Start Date End Date Jackie Abdi MD [address] [place] [address] PCP - General Family Medicine 04/29/13 documented as of this encounter
--- OUTSIDE RECORDS SUMMARY | 2024-06-03 09:04 | XMS_ITS | Encounter Summary ---
Author Organization [employer] Address [address] [facility] 7t [place] [address] Care Team Providers Care Mica Miner Blasting Name Role Phone Jackie Abdi MD Primary Care Provider [phone] Reason for Visit * Reason Comments Med Refill Encounter Details Date Type Department Care Team ([facility] st Contact Info) Description 09/01/2023 Refill [facility] MED & PEDS [address] [place], [place] [phone] Ronnell Sanderson MD 505 [place] [address] Acute pain of right shoulder Social History [...] 10:00 AM EDT Office Visit [facility] P[facility] 505 [place] [address] Jackie Abdi MD 505 [place] [address] documented as of this encounter Visit Diagnoses Diagnosis Acute pain of right shoulder documented in this encounter Additional Health Concerns Assessment Noted Time PHQ-9 Depression Total Score: 21 023 8:57 AM EDT documented as of this encounter Care Teams Mica Miner Blasting Relationship Specialty Start Date End Date Jackie Abdi MD [address] [place] [address] PCP - General Family Medicine 04/29/13 documented as of this encounter
--- OUTSIDE RECORDS SUMMARY | 2024-06-03 09:04 | XMS_ITS | Encounter Summary ---
Author Organization [employer] Address [address] [facility] 7t [place] [address] Care Team Providers Care Retail Store Clerk Name Role Phone Jackie Abdi MD Primary Care Provider [phone] Reason for Visit * Reason Onset Date Comments Med Refill 11/13/2023 Encounter Details Date Type Department Care Team (Late st Contact Info) Description 11/13/2023 Refill [facility] [address] [place] [address] Jackie Abdi MD [address] [place] [address] Social History Tobacco Use Types Packs/Day Years [...] Description 06/21/2024 10:00 AM EDT Office Visit [facility] MED & PEDS 505 [place] [address] Jackie Abdi MD 505 [place] [address] documented as of this encounter Visit Diagnoses Not on filedocumented in this encounter Additional Health Concerns Assessment Noted Time PHQ-9 Depression Total Score: 21 023 8:57 AM EDT documented as of this encounter Care Teams Retail Store Clerk Relationship Specialty Start Date End Date Jackie Abdi MD [address] [place] [address] PCP - General Family Medicine 04/29/13 documented as of this encounter
--- OUTSIDE RECORDS SUMMARY | 2024-06-03 09:04 | XMS_ITS | Encounter Summary ---
Author Organization [employer] Address [address] [facility] 7t [place] [address] Care Team Providers Care Inventory Auditor Name Role Phone Jackie Abdi MD Primary Care Provider [phone] Reason for Visit * Reason Onset Date Comments Results 04/30/2022 Encounter Details Date Type Department Care Team ([facility] Contact Info) Description 04/30/2022 Telephone [facility] MEDICINE [address] [place] [address] Jackie Abdi MD [address] [place] [address] Results Social History Tobacco Use Types Packs/Day [...] regarding xray results Please contact pt at [phone] documented in this encounter Plan of Treatment Upcoming Encounters Date Type Department Care Team (Late st Contact Info) Description 06/21/2024 10:00 AM EDT Office Visit [facility] MED & PEDS [address] [place] [address] Jackie Abdi MD 505 [place] [address] documented as of this encounter Visit Diagnoses Not on filedocumented in this encounter Care Teams Inventory Auditor Relationship Specialty Start Date End Date Jackie Abdi MD [address] [place] [address] PCP - General Family Medicine 04/29/13 documented as of this encounter
--- OUTSIDE RECORDS SUMMARY | 2024-06-03 09:04 | XMS_ITS | Encounter Summary ---
Author Organization [employer] Address [address] [facility] [address] 7t [place] [address] Care Team Providers Care Hr Analyst Name Role Phone Jackie Abdi MD Primary Care Provider [phone] Encounter Details Date Type Department Care Team (Late st Contact Info) Description 12/07/2023 Orders Only [facility] [address] [place] [phone] Hiren Garcia MD [address] [place], [place] [phone] Social History Tobacco Use Types Packs/Day Years [...] t he electric, gas, oil or water [employer] threatened to shut off services in your [...] 10:00 AM EDT Office Visit [facility] MED & PEDS [address] [place] [address] Jackie Abdi MD [address] [place] [address] documented as of this encounter Procedures Procedure Name Priority Date/Time Associated Diagnosis Comments STRESS TEST WITH MYOCARDIAL PERFUSION Routine 01/01/2024 9:09 AM EDT documented in this encounter Results * Stress test with myocardial perfusion (01/01/2024 9:09 AM EDT) 01/01/2024 9:09 AM EDT Narrative [facility] - 01/04/2024 4:19 PM EDT ? [facility] ?[address] ?[place] [address] ?Nuclear Medicine Report ? Signed ? Patient: Philly,Sade ?MR#: [id number] ?? 4 ? : 1970 ?Acct:[id number] ? Age/Sex: 53 / F ?ADM Date: 10/04/24 ? Loc: HO.CARD ? Attending Rod Ricketts MD ? Ordering Physician: Abdelrahman Ricketts MD ?? Date of Service: 01/01/24 ?? Procedure(s): NM cardiolite stress test ?? Accession Number(s): [id number] ? cc: Jackie Abdi MD; Abdelrahman Ricketts [...] DD/ 0909 ? TD/TT: 01/04/24 1200 ? Towel Hemmer: ? Procedure Note Kaylyn Barnes - 01/04/[address] [place] [address] Nuclear Medicine Report Signed Patient: Gray Fraga#: [id number] 4 : 1970Acct:[id number] Age/Sex: 53 / FADM Date: 01/01/24 Loc: .[facility] Attending Dr: Abdelrahman Ricketts MD Ordering Physician: Abdelrahman Ricketts MD Date of Service: 01/01/24 Procedure(s): NM cardiolite stress test Accession Number(s): [id number] cc: Jackie Abdi MD; Abdelrahman Ricketts MD [...] 01/04/24 1616 DD/ 0909 TD/TT: 01/04/24 1200 Towel Hemmer: [facility] External Provider CV STRE SS PROCEDURES Final Result [facility] [address] [place] [address] documented in this encounter Visit Diagnoses Not on filedocumented in this encounter Additional Health Concerns Assessment Noted Time PHQ-9 Depression Total Score: 21 023 8:57 AM EDT documented as of this encounter Care Teams Hr Analyst Relationship Specialty Start Date End Date Jackie Abdi MD [address] [place] [address] PCP - General Family Medicine 04/29/13 documented as of this encounter
--- OUTSIDE RECORDS SUMMARY | 2024-06-03 09:05 | XMS_ITS | Encounter Summary ---
Author Organization [email or web address] Address [address] [facility] 7t [place] [address] Care Team Providers Care Software Integration Developer Name Role Phone Jackie Abdi MD Primary Care Provider [phone] Encounter Details Date Type Department Care Team (Late Contact Info) Description 06/03/2022 Orders Only [facility] MED & PEDS [address] [place] [address] Kaylin Kaur MD [address] [place] [address] Mid-back pain, acute (Primary Dx) Social History [...] 06/21/2024 10:00 AM EDT Office Visit [facility] & PED[facility] [address] [place], [place] [phone] Jackie Abdi MD [address] [place] [address] documented as of this encounter Visit Diagnoses Diagnosis Mid-back pain, acute- Primary documented in this encounter Care Teams Software Integration Developer Relationship Specialty Start Date End Date Jackie Abdi MD [address] [place] [address] PCP - General Family Medicine 04/29/13 documented as of this encounter
--- OUTSIDE RECORDS SUMMARY | 2024-06-03 09:05 | XMS_ITS | Encounter Summary ---
Author Organization [employer] Address [address] [facility] 7t [place] [address] Care Team Providers Care Manager Photo Name Role Phone Jackie Abdi MD Primary Care Provider [phone] Reason for Visit * Reason Onset Date Comments call back 06/03/2022 Encounter Details Date Type Department Care Team ([facility] st Contact Info) Description 06/03/[address] [facility] MEDICINE [address] [place] [address] Jackie Abdi MD [address] [place] [address] call back Social History Tobacco Use Types [...] a call back. Please contact pt at [phone] documented in this encounter Plan of Treatment Upcoming Encounters Date Type Department Care Team ([facility] st Contact Info) Description 06/21/2024 10:00 AM EDT Office [facility] & PEDS [address] [place] [address] Jackie Abdi MD 505 [place] [address] documented as of this encounter Visit Diagnoses Not on filedocumented in this encounter Care Teams Manager Photo Relationship Specialty Start Date End Date Jackie Abdi MD [address] [place] [phone] PCP - General Family Medicine 04/29/13 documented as of this encounter
--- OUTSIDE RECORDS SUMMARY | 2024-06-03 09:05 | XMS_ITS | Encounter Summary ---
Author Organization [employer] Address [address] [facility] 7t [place] [address] Care Team Providers Care Lead Systems Architect Name Role Phone Jackie Abdi MD Primary Care Provider [phone] Reason for Visit * Reason Onset Date Comments Nurse Triage 08/03/2023 Encounter Details Date Type Department Care Team ([facility] st Contact Info) Description 08/03/2023 Telephone [facility] [address] [place] [address] Jackie Abdi MD [address] [place] [address] Nurse Triage Social History Tobacco Use Types [...] point. pt states is currently [facility] [place]. advised to complete the [...] [facility] [address] [place] [address] Jackie Abdi MD 505 [place] [address] documented as of this encounter Visit Diagnoses Not on filedocumented in this encounter Additional Health Concerns Assessment Noted Time PHQ-9 Depression Total Score: 21 06/26/ 023 8:57 AM EDT documented as of this encounter Care Teams Lead Systems Architect Relationship Specialty Start Date End Date Jackie Abdi MD [address] [place] [address] PCP - General Family Medicine 04/29/13 documented as of this encounter
--- OUTSIDE RECORDS SUMMARY | 2024-06-03 09:05 | XMS_ITS | Clinical Summary ---
Author Organization [employer] Address [address] [facility] 7t [place] [address] Care Team Providers Care Vessel Traffic Officer Name Role Phone Jackie Abdi MD Primary Care Provider [phone] Allergies Active Allergy Reactions Criticality Noted Date Comments Sulfamethoxazole-Trimethoprim Angioedema 2023 Medications Multiple Vitamin (Multi-Vitamin) tablet Take 1 tablet by mouth at bed time. Active cholecalciferol (Vitamin D-3) 1.25 MG (74804 UT) capsule Take 1 capsule by mouth. [...] Type Department Care Team Description 06/01/2024 Refill [facility] MEDICINE [address] [place] [address] Jackie Abdi MD Acute pain of right shoulder 05/08/2024 Refill [facility] MEDICINE [address] [place] [address] Jackie Abdi MD Acute pain of right shoulder 04/26/2024 10:00 AM EST Office Visit [facility] [address] [place] [address] Hiren Garcia MD Chronic pain in right shoulder (Primary Dx); Acute bilateral ankle pain 04/22/2024 Orders Only [facility] MEDICINE [address] [place] [address] Pola Maldonado CNM 04/21/2024 2:00 PM EST Office Visit [address] [address] Pola Maldonado CNM Vaginal discharge (Primary Dx); Atrophic vaginitis; Pain in female genitalia on intercourse; Menopausal syndrome (hot flashes); Screening mammogram for breast cancer 04/21/2024 Outside Procedure [facility] OPTOMETRY [address] [place] [address] Deshawn Hernandezn, OD Presbyopia of both eyes (Primary Dx) 04/20/2024 Travel 04/19/2024 3:30 PM EST Office Visit [facility] OPTOMETRY [address] [place] [address] An Hernandez, OD Hyperopia of both eyes (Primary Dx) 04/19/2024 11:30 AM EST Telemedicine [facility] CHC MED & PEDS [address] [place], [place] [phone] Jackie Abdi MD Vaginal itching (Primary Dx); Pain in female genitalia on intercourse 04/19/2024 Travel 04/12/2024 Travel 04/08/2024 Telephone [facility] [address] [place] [address] Jackie Abdi MD appt 04/01/2024 Refill [facility] MED[facility] [address] [place] [address] Jackie Abdi MD 03/25/2024 Orders Only [facility] External Provider, [facility] from Last 3 Months Immunizations Name [...] 06/21/2024 10:00 AM EDT Office Visit [facility] MED & PEDS [address] [place] [address] Jackie Abdi MD [address] [place] [address] Health Maintenance Due Date Last Done Comments [...] EST Narrative 04/27/2024 9:35 AM EST ? [facility] ?[address] ?[place] [address] ? Ultrasound Report ? Signed ? Patient: Philly,Sade ?MR#: [id number] ?? 4 ? : 1970 ?Acct:[id number] ? Age/Sex: 54 / F ?ADM Date: 01/28/25 ? Loc: HO.US ? Attending Dr: Pola Maldonado CNM ? Ordering Physician: POLA MALDONADO CNM ?? Date of Service: 04/26/24 ?? Procedure(s): US pelvic and transvaginal ?? Accession Number(s): [id number] ? cc: Jackie Abdi MD; POLA MALDONADO [...] DD/ 1615 ? TD/TT: 04/26/24 1623 ? Waiver Analyst: MSM ? Procedure Note Molly, Image - 04/27/[address] [address] Ultrasound Report Signed Patient: Sade FragaMR#: [id number] 4 : 1970Acct:[id number] Age/Sex: 54 / FADM Date: 04/26/24 Loc: HO.US Attending Dr: Pola Maldonado CNM Ordering Physician: POLA MALDONADO CNM Date of Service: 04/26/24 Procedure(s): US pelvic and transvaginal Accession Number(s): [id number] cc: Jackie Abdi MD; POLA MALDONADO CNM [...] 04/27/24 0932 DD/ 1615 TD/TT: 04/26/24 1623 Waiver Analyst: BRAYDON us Pola Maldonado CNM IMG US [...] DETECTION BY PCR NOT DETECTED Not Detect [facility] BACTERIAL VAGINOSIS DETECTION BY PCR NEGATIVE Negative [facility] Comment:The BV organism targ ets of [...] GROUP DETECTION BY PCR DETECTED(A) Not Detect [facility] Ofelia glab krusei PCR NOT DETECTED Not Detect [facility] Swab Vaginal structure / Unknown 04/21/2024 2:24 PM EST 04/21/2024 5:25 PM EST Pola MANN LAB MICROBIOLOGY - GENERA L ORDERABLES Final Result [facility] [address] [place] [phone] * US Retroperitoneal Complete (03/25/2024 10:07 AM EST) Anatomical Region Laterality Modality Ultrasound 03/25/2024 10:0 7 AM EST Narrative 04/08/2024 9:22 AM EST ? [facility] ?[address] ?[place] [address] ? Ultrasound Report ? Signed ? Patient: Philly,Sade ?MR#: [id number] ?? 4 ? : 1970 ?Acct:[id number] ? Age/Sex: 54 / F ?ADM Date: 03/25/24 ? Loc: HO.US ? Attending Dr: Sarah HARE ? Ordering Physician: Sarah Gomez ?? Date of Service: 03/25/24 ?? Procedure(s): US retroperitoneal comp ?? Accession Number(s): [id number] ? cc: Sarah Gomez; Jackie Abdi MD ? EXAMINATION: ?? US RETROPERITONEAL COMPLETE (RENAL) ? CLINICAL INFORMATION: ?? Urinary tract infection, site not specified. ? COMPARISON: ?? Ultrasound abdomen limited 10/22/2022. ? TECHNIQUE: ?? Real-time imaging of the kidneys and bladder. ? Exam submitted for review 04/08/2024 8:18 AM LURER. ? FINDINGS: ? RIGHT KIDNEY: 9.7 x [...] DD/ 1007 ? TD/TT: 03/25/24 1020 ? Waiver Analyst: ? Procedure Note Molly, Image - 04/08/2024 [place] [address] Ultrasound Report Signed Patient: Gray Fraga#: [id number] 4 : 1970Acct:[id number] Age/Sex: 54 / FADM Date: 03/25/24 Loc: HO.US Attending Dr: Sarah HARE Ordering Physician: Sarah Gomez Date of Service: 03/25/24 Procedure(s): US retroperitoneal comp Accession Number(s): [id number] cc: Sarah Gomez; Jackie Abdi MD EXAMINATION: US RETROPERITONEAL COMPLETE (RENAL) CLINICAL INFORMATION: Urinary tract infection, site not specified. COMPARISON: Ultrasound abdomen limited 10/22/2022. TECHNIQUE: Real-time imaging of the kidneys and bladder. Exam submitted for review 04/08/2024 8:18 AM LURER. FINDINGS: RIGHT KIDNEY: 9.7 x 5.7 x [...] 04/08/24 0919 DD/ 1007 TD/TT: 03/25/24 1020 Waiver Analyst: [facility] External Provider IMG US PROCEDURES Final Result * Cologuard?? colon cancer screening (02/23/2023 10:44 AM EST) Cologuard Result Negative Negative 03/01/20 23 3:14 PM EST [facility] (CLIA #:[id number]) Comment: NEGATIVE TEST RESULT. A negative Cologuard [...] cancer. ??Following a negative Cologuard result, the [place] Cancer Society and U.S. Multi-Society Task Force screening guidelines recommend a Cologuard re-screening interval of 3 years. References: [place] [employer] Guideline for Colorectal Cancer Screening: https://www.cancer.org/cancer/bndaf-qxccno-gekdkc/rauoolbgq-uffpfkhbk-dcqamlj/ac s-rec ommendations.html.; Bean DK, Mitchell CR, Dank WeberK, Colorectal Cancer Screening: Recommendations for Physicians and Patients from the U.S. Multi-Society Task Force on Colorectal Cancer Screening , Am J Gastroenterology 2017; 112:5678-9573. TEST DESCRIPTION: Composite algorithmic analysis of stool [...] (Javi Frank al, N Engl J Med 2014;370(14):3981-9209.) Cologuard may produce a false negative or false positive result (no colorectal cancer or precancerous polyp present at colonoscopy follow up). A negative Cologuard test result does not guarantee the absence of CRC or advanced adenoma (pre-cancer). The current Cologuard screening interval is every 3 years. ([place] [employer] Society and U.S. Multi-Society Task Force). Cologuard performance data in a 10,000 patient pivotal study using colonoscopy as the reference method can be accessed at the following location: www.IMASTE.Chumbak/results. Additional description of the Cologuard test process, warnings and precautions can be found at www.TRINA SOLAR LTDrd.com. Stool specimen (specimen) 02/23/2023 10:44 AM EST 02/24/2023 1:44 PM EST us Jackie Abdi MD LAB MOLECULAR DIAGNOSTICS ORDERA BLES Final Result [facility] (CLIA #:[id number]) [address] [place] [address], * Thinprep TIS PAP And HPV mRNA E6/E7, CT/NG, TRICH (04/08/2022 4:21 PM EST) Clinical Information: SCREENING, PELVIC PAIN [facility] LMP: NONE GIVEN [facility] Prev. PAP: NONE GIVEN [facility] Prev. BX: NONE GIVEN [facility] SOURCE: None given [employer] Statement Of Adequacy: [employer] Comment: Satisfactory for evaluation. Endocervical/transformation zone component present. Age and/or menstrual status not provided Interpretation/Re sult: Negative for intraepithelial lesion or malignancy. [facility] COMMENT: This Pap test has been evaluated with computer assisted technology. [employer] Premium Note Interest Calculator Clerk: Jose ArthaYantrat Comment: DMM CT(ASCP) CT screening location: [address] ??[phone] (Always Message) Que [facility] Comment: EXPLANATORY NOTE: The Pap is a [...] HPV nRNA E6/E7 Not Detected Not Detected [facility] Comment: Methodology: Rodding Anode Worker-Mediated Amplification This assay detects E6/E7 viral messenger RNA (mRNA) from 14 high-risk HPV types (16,18,31,33,35,39,45,51,52,56,58,59,66,68). Cervical sources are required for HPV testing. If a vaginal source from a patient who has had a total hysterectomy with removal of cervix was submitted, please contact the testing laboratory for alternative testing options. For additional information, please refer to http://[employer]/faq/NNZ544z9 (This link if provided for information/ educational purposes only.) Chlamydia trachomatis RNA, TMA, Urogenital NOT DETECTED NOT DETECTED [facility] Neisseria gonorrhoeae RNA, TMA, Urogenital NOT DETECTED NOT DETECTED [facility] (Always Message) Que [facility] Comment: The analytical performance characteristics of this assay, when used to test SurePath(TM) specimens have been determined by [employer]. The modifications have not been cleared or approved by the FDA. This assay has been validated pursuant to the CLIA regulations and is used for clinical purposes. For additional information, please refer to https://[employer].MYTRND.Chumbak/faq/GUC709 (This link is being provided for information/ educational purposes only.) Trichomonas vaginalis, QL, TMA, PAP Vial NOT DETECTED NOT DETECTED [facility] Comment: The analytical performance characteristics of this assay have been determined by [facility]. The modifications have not been cleared or approved by the FDA. This assay has been validated pursuant to the CLIA regulations and is used for clinical purposes. For additional information, please refer to http://[employer]/ faq/Trichomonastma (This link is being provided for information/ educational purposes only.) 04/08/2022 4:21 PM EST 04/09/2022 11:04 AM EST Narrative [facility] - 04/14/2022 10:42 AM EST FASTING: UNKNOWN Pola Maldonado [facility] LAB PATHOLOGY ORDERABLES Final Result [facility] [address] [facility], [address]rd [address], [place] [address] [facility] [address] [facility], (N[address]2) [place] [address] * HEPATITIS C AB W/REFL TO HCV RNA, QN, PCR (12/12/2020 10:12 AM EDT) HEPATITIS C ANTIBODY NON-REACT COLE NON-REACT COLE [facility] INDEX 0.09 <1.00 [facility] Comment: ?? HCV antibody was non-reactive. There is no laboratory ?? evidence of HCV infection. ?? In most cases, no further action is required. However, if recent HCV exposure is suspected, a test for HCV RNA (test code 65295) is suggested. ?? For additional information please refer to http://education.[employer]/faq/AXE11q7 (This link is being provided for informational/ educational purposes only.) ?? 12/12/2020 10:1 2 AM EDT Hiren Garcia MD HISTORICAL/NON ORDERABLE LABS Fi nal Result [facility] [address] * HIV 1/2 ANTIGEN/ANTIBODY,FOURTH GENERATION W/RFL [...] ? For additional information please refer to http://[employer]/faq/SJF039 (This link is being provided for informational/ educational purposes only.) ? The performance of this assay has not been clinically validated in patients less than 2 years old. ?? 12/12/2020 10:1 2 AM EDT us Hiren Garcia MD LAB BLOOD ORDERABLES Final Resul t Performing Organization Address City/State/ZIP Co oh Phone Number [facility] [address] from Last 3 Months or Most Recently Relevant to Health Maintenance Insurance C[facility] [place] [address] Care Teams Vessel Traffic Officer Relationship Specialty Start Date End Date Jackie Abdi MD [address] [place] [phone] PCP - General Family Medicine 04/29/13
== END 2024-06-03 09:32 | disposition home or self-care (01) ==
PROVIDERS: PCP Student in an Organized Health Care Education/Training Program; Visit Provider Physician Assistant
DX: M19.011 Primary osteoarthritis, right shoulder (principal); M75.81 Other shoulder lesions, right shoulder
CPT/HCPCS: 20610; 99213

== ENCOUNTER → 2024-06-03 08:37 | Outpatient (BNV) | payer MEDICAID, SELFPAY | PROVIDERS: Visit Provider Radiology Diagnostic Radiology | DX: Z12.31 Encounter for screening mammogram for malignant neoplasm of breast (principal) | CPT/HCPCS: 77063; 77067 ==

== ENCOUNTER 2024-06-03 09:34 | Outpatient (REF) | payer MEDICAID, SELFPAY ==
--- NOTE | ~2024-06-03 | XR_ITS ---
EXAMINATION: XR SHOULDER, RIGHT CLINICAL INFORMATION: M25.511 - Pain in right shoulder COMPARISON: None available. TECHNIQUE: AP external rotation, Grashey, scapular Y, and axillary views of the right shoulder. FINDINGS: There is smooth small round density anterior to the right femoral head likely loose body or calcification in the bicipital groove. ?Calcific bursitis or tendinitis. No visible acute fracture, dislocation or bony erosive changes. Soft tissues are unremarkable. XR/XR shoulder RT min 2V IMPRESSION: Small calcified round density anterior the proximal humeral head likely calcific bursitis or a loose body. Electronically signed by: Gary Thayer MD 06/03/2024 09:24 AM EST
--- OUTSIDE RECORDS SUMMARY | 2024-06-06 10:23 | XMS_ITS | Encounter Summary ---
Author Organization [employer] Address 75 [facility] 7t [place] [address] Care Team Providers Care Drawing Box Tender Name Role Phone Jackie Abdi MD Primary Care Provider [phone] Encounter Details Date Type Department Care Team (Late Contact Info) Description 08/28/2022 Orders Only [facility] MED & PEDS [address] [place], [place] [phone] Ronnell Sanderson MD 505 [place] [address] Social History Tobacco Use Types Packs/Day Years [...] [facility] [address] [place] [address] Jackie Abdi MD [address] [place] [address] documented as of this encounter Visit Diagnoses Not on filedocumented in this encounter Additional Health Concerns Assessment Noted Time PHQ-9 Depression Total Score: 21 023 8:57 AM EDT documented as of this encounter Care Teams Drawing Box Tender Relationship Specialty Start Date End Date Jackie Abdi MD [address] [place] [address] PCP - General Family Medicine 04/29/13 documented as of this encounter
--- OUTSIDE RECORDS SUMMARY | 2024-06-06 10:23 | XMS_ITS | Encounter Summary ---
Author Organization [employer] Address 75 [facility] 7t [place] [address] Care Team Providers Care Patient Relations Liaison Name Role Phone Jackie Abdi MD Primary Care Provider [phone] Reason for Visit * Reason Comments Med Refill Encounter Details Date Type Department Care Team ([facility] st Contact Info) Description 09/01/2023 Refill [facility] CHC MED & PEDS [address] [place], [place] [phone] Ronnell Sanderson MD [address] [place] [address] Acute pain of right shoulder Social History [...] 06/21/2024 10:00 AM EDT Office Visit [facility] MED & PEDS 505 [place] [address] Jackie Abdi MD [address] [place] [address] documented as of this encounter Visit Diagnoses Diagnosis Acute pain of right shoulder documented in this encounter Additional Health Concerns Assessment Noted Time PHQ-9 Depression Total Score: 21 023 8:57 AM EDT documented as of this encounter Care Teams Patient Relations Liaison Relationship Specialty Start Date End Date Jackie Abdi MD [address] [place] [address] PCP - General Family Medicine 04/29/13 documented as of this encounter
--- OUTSIDE RECORDS SUMMARY | 2024-06-06 10:23 | XMS_ITS | Clinical Summary ---
Author Organization [facility] Facility Address [address] [place] [address] Care Team Providers Care Systems Architecture Analyst Name Role Phone Jackie Abdi MD Primary Care Provider [phone] Allergies No known active allergies Medications omeprazole [...] Insurance [place] Care Teams Systems Architecture Analyst Relationship Specialty Start Date End Date Jackie Abdi MD [address] [place] [address] PCP - General 04/09/20
--- OUTSIDE RECORDS SUMMARY | 2024-06-06 10:23 | XMS_ITS | Encounter Summary ---
Author Organization [facility] Address [address] [place] [phone] Care Team Providers Care Rail Switchman Name Role Phone Jackie Abdi MD Primary Care Provider [phone] Reason for Visit * Reason Comments Abdominal Pain GI Problem Encounter Details Date Type Department Care Team (Late st Contact Info) Description 06/03/2024 2:40 PM EST Office Visit Gastroenterology - [facility] [address] [facility] [address] [place] [phone] Artis Leyva PA [address] [facility] [address] [place] [address] Epigastric pain (Primary Dx); Generalized abdominal pain; Gassiness; Dyspepsia; History of gastric bypass Social History Tobacco Use Types Packs/Day Years Used Date Smoking Tobacco: Never Smokeless Tobacco: Never Alcohol Use Standard Drinks/Week Comments No 0 (1 standard drink = 0.6 oz pur e alcohol) Comments Unknown Sex and Gender Information Value Date Recorded Sex Assigned at Not on file Legal Sex Female 3:49 AM EST Gender Identity Not on file Sexual Orientation Not on file documented as of this encounter Last Filed Vital Signs Vital Sign Reading Time Taken Comments Blood Pressure 120/78 06/03/2024 2:34 PM EST Pulse 73 06/03/2024 2:34 PM EST Temperature - - Respiratory Rate - - Oxygen Saturation - - Inhaled Oxygen Concentration - - Weight 69.9 kg (154 lb) 06/03/2024 2:34 PM EST Height 149.9 cm (4' 11 ) 06/03/2024 2:34 PM EST Body Mass Index 31.1 06/03/2024 2:34 PM EST documented in this encounter Patient Instructions * Attachments The following attachments cannot be sent through Care Everywhere. * Abdominal Pain ([place]) * Dyspepsia ([place]) * Acid-Reducing Medicines: General Info ([place]) * Gas and Bloating ([place]) * Gastritis ([place]) documented in this encounter Ordered Prescriptions Prescription Sig Dispense Quantity Refills Last Filled Start Date End Date simethicone 250 mg capsule Take 1 capsule by mouth 4 (four) times a day if needed (gassiness). 60 capsule 5 06/03/2024 documented in this encounter Progress Notes * CINDA Fletcher - 06/03/2024 2:40 PM EST Patient returns for further evaluation of abdominal bloating and gassiness. Remarks that over the last 5 months or so, she has had worsening issues with gas and bloating. Remarks that the gas that she releases has a very bad smell. She has not changed any medications and has tried to eat healthier.Would suggest that she try probiotics to see if that will help change the chemical makeup of her intestines use the simethicone for decreasing the gas. Patient awre that she should contact our officewith update on sxs. * CINDA Fletcher - 06/03/2024 2:40 PM EST DENTIFIER: Sade Fraga is a 54 y.o. old female who presents to the gastroenterology department today for re-evaluation of abdominal bloating and gassiness. HPI: 54-year-old female returns for further evaluation of abdominal bloating and gassiness. She was last seen in May 2021 for nausea and vomiting as well as abdominal discomfort which is seems to resolved Remarks that over the last 5 months or so, she has had worsening issues with gas and bloating. Remarks that the gas that she releases has a very bad smell. She has not changed any medications and has tried to eat healthier. Would suggest that she try probiotics to see if that will help change the chemical makeup of her intestines use the simethicone for decreasing the gas. Patient aware that she should contact our office with update on sxs. ROS: GENERAL: No malaise, significant weight loss or fever HEENT: No changes in hearing or vision, nose bleeds or swallowing problems NECK: No lumps, goiter, pain or significant neck swelling RESPIRATORY: No cough, wheezing or shortness of breath CARDIOVASCULAR: No chest pain, leg swelling or palpitations GI: Positive for abdominal bloating and gassiness MUSCULOSKELETAL: No joint pain or swelling, back pain, or muscle pain. SKIN: No lesions, rash or itching The remainder of the review of systems is reviewed and negative. 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 Nausea and vomiting 03/08/2024 Overweight (BMI 25.0-29.9) 04/22/2021 Eating disorder 10/11/2020 Hypercholesteremia 10/11/2020 Obstructive sleep apnea 10/11/2020 Gastroesophageal reflux disease with esophagitis without hemorrhage 05/03/2020 SOCIAL HISTORY: Social History Tobacco Use Smoking status: Never Smokeless tobacco: Never Substance Use Topics Alcohol use: No FAMILY HISTORY: Family History Problem Relation Name Age of Onset Stomach cancer Father Hypertension Mother Diabetes Mother Other (Other: heart failure) Mother ACTIVE MEDICATIONS: Outpatient Medications Marked as Taking for the 06/03/24 encounter (Office Visit) with CINDA Fletcher Medication Sig Dispense Refill cholecalciferol (VITAMIN D-3) 1,250 mcg (50,000 unit) capsule Take 1 Capsule by mouth once a week. MAGNESIUM CHLORIDE ORAL Take by mouth. multivitamin (MULTI-DAY ORAL) Take by mouth. omeprazole (PriLOSEC) [address] capsule TAKE 1 CAPSULE BY MOUTH TWICE DAILY SIMVASTATIN ORAL Take by mouth. sucralfate (CARAFATE) 100 mg/mL suspension Take 10 mL by mouth 4 times daily. Take at least one dose at bedtime [DISCONTINUED] POTASSIUM ORAL Take by mouth as needed. Order by PCP - to take as a response to bloodwork. Pt vomits a lot and her potassium drops [DISCONTINUED] wheat dextrin (BENEFIBER CLEAR SF, DEXTRIN, ORAL) Wheat Dextrin (Benefiber) Powder Take 4 g by mouth daily. ALLERGIES: @ALL@ PHYSICAL EXAM: Visit Vitals BP 120/78 Pulse 73 Ht 1.499 m (59 ) Wt 69.9 kg (154 lb) BMI 31.10 kg/m?? Smoking Status Never BSA 1.65 m?? APPEARANCE: Alert and in no acute distress EYES: PERRLA, conjunctiva and sclera normal. MOUTH/THROAT: no erythema or exudates NECK: Neck supple, no adenopathy HEART: RRR with normal S1 and S2, no murmurs appreciated LUNG: clear to auscultation LYMPH NODES: grossly normal ABDOMEN: Soft, nontender, normal active bowel sounds throughout, no organomegaly RECTAL: Exam deferred. EXTREMITIES: Extremities warm and well perfused SKIN: Skin color, texture, turgor normal. LABS: No results found for: WBC , HGB , HCT , MCV , PLT , NA , K , CL , CO2 , GLUCOSE , BUN , CREATININE , CALCIUM , PROT , ALBUMIN , BILITOT , AST , ALT , URICACID , PHOS , MG , ALKPHOS , EGFR No results found for: SEDRATE , CRP , IRON , FERRITIN , CDIFFTOX , HPYLORI , STOOLCX , LIPASE , APTT , PT , INR , CELIAC , TTGIGA , GLIADINIGA , OCCULTBLD , CALPROTECTIN IMAGING: CR SHOULDER RT MIN 2 VIEW [facility] Diagnostic Imaging Department [address] [place] [address] Patient: SADE FRAGA /Age/Sex: 1970 - 53 - F Unit#: [id number] Location/Status: SPDIGEN/REG CLI Mnemonic/Ordering Site: SHOULDRT/SPDI Ordering Physician: JONATHAN GASTELUM CR Shoulder RT Min 2 View - 07/01/23 - 1114 Report Status:Signed HISTORY: The patient is a 53-year-old female with right shoulder pain for 2 months, nontraumatic. FINDINGS: AP, right posterior oblique, and transscapular views of the right shoulder are obtained. The study demonstrates no fracture or dislocation. There is a small osteophyte arising from the inferior margin of the glenoid consistent with very mild osteoarthritis. No soft tissue abnormality is seen. 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 Otherwise, normal examination, without acute findings. Code 31056 Dictating Physician: SATNAM ESTRADA MD Electronically Signed by: SATNAM ESTRADA MD Dic Date/Time: 07/01/23 1118 Sign date/Time: 07/01/[address] Results for orders placed in visit on 07/08/21 CT ABD \T\ PELVIS W/O CONTRAST Narrative History: Generalized abdominal pain. Prior history of gastric surgery. CT of the abdomen and pelvis: CT of the abdomen and pelvis were performed with 2 mm slice thickness reconstructions in the coronal, axial and sagittal planes. Scans were obtained following oral contrast administration. Radiation dose 10.4 mGy. FINDINGS: There are findings consistent with the history of gastric bypass surgery. A lap band appears to be replaced with the tubing apparently extending posterior to bowel loop, possibly an apparent loop, without extension to the usual reservoir. There is a suggestion of some mucosal thickening adjacent to the lap band, although this may simply reflect retained ingested material. If there are symptoms referable to this area endoscopic correlation may be warranted. There has been a cholecystectomy. The bile ducts are normal in caliber. The liver, spleen, pancreas adrenals and kidneys are normal in size, configuration and attenuation. The ureters are normal in course and caliber. The bladder is not distended. The bowel and mesentery are otherwise unremarkable. There is no evidence of diverticulosis or diverticulitis. There is a very small uncomplicated fat-containing umbilical hernia. Pelvic structures are unremarkable. There is patchy increased attenuation in the subcutaneous fat in the right lower quadrant of the abdomen probably representing injection sites. There is some scarring in the anterior lower pelvis consistent with prior section. There is a mild thoracolumbar levoscoliosis. There are mild degenerative changes in the hips and SI joints. Impression IMPRESSION: Postoperative changes in the upper abdomen. Possible gastric mucosal thickening adjacent to the area of a lap band just distal to the GE junction. Other findings as above. 7 IMPRESSION: 1. Epigastric pain 2. Generalized abdominal pain 3. Gassiness 4. Dyspepsia 5. History of gastric bypass PLAN: 1. Gastric pain, generalized, gassiness, dyspepsia, history of gastric bypass Patient has been seen in the past for epigastric pain as well as nausea and abdominal pain but she had undergone a CT in 2021 that the study was essentially normal. Patient now reports over the last for 5 months she has been having issues with worsening gassiness and states that it does not smell very nice that it has a very foul order. She is not changed medications and is trying to eat healthier. Patient will try probiotics as well as simethicone to see if that will change her intestinal track at all and have suggested that she contact office in a couple of weeks for an update regarding medication adjustment. Total time of today's encounter is 32 minutes in preparing to see the patient, reviewing labs, diagnostic studies as well as other provider notes, documenting in charting, creating an HPI, performinga medically appropriate exam, counseling patient at length in regards to foul-smelling gas, abdominal bloating use of medications as well as prescribing medication. There was documentation in EMR after visit. None of which time was spent performing separately billable procedures or ancillary services. Thank you very much for allowing us to participate in patient's care No orders of the defined types were placed in this encounter. ADDITIONAL ORDERS: None CINDA Fletcher documented in this encounter Plan of Treatment Upcoming Encounters Date Type Department Care Team (Late st Contact Info) Description 06/16/2024 3:45 PM EDT Office Visit Bariatric Surgery - [facility] [address] [facility] [address] [place] [phone] Aleksandar Heaton MD [address] [facility] [address] [place] [address] documented as of this encounter Visit Diagnoses Diagnosis Epigastric pain- Primary Abdominal pain, epigastric Generalized abdominal pain Abdominal pain, generalized Gassiness Flatulence, eructation, and gas pain Dyspepsia Dyspepsia and other specified disorders of function of stomach History of gastric bypass documented in this encounter Discontinued Medications Medication Sig Discontinue Reason Start Date End Da te wheat dextrin (BENEFIBER CLEAR SF, DEXTRIN, ORAL) Wheat Dextrin (Benefiber) Powder Take 4 g by mouth daily. 10/08/2020 06/03/2024 POTASSIUM ORAL Take by mouth as needed. Order by PCP - to take as a response to bloodwork. Pt vomits a lot and her potassium drops 06/03/2024 documented as of this encounter Care Teams Rail Switchman Relationship Specialty Start Date End Date Jackie Abdi MD [address] [place] [id number] PCP - General 10/20/16 documented as of this encounter
--- OUTSIDE RECORDS SUMMARY | 2024-06-06 10:23 | XMS_ITS | Encounter Summary ---
Author Organization [employer] Address [address] [facility] [address] [place] [address] Care Team Providers Care Induction Machine Operator Name Role Phone Jackie Abdi MD Primary Care Provider [phone] Reason for Visit * Reason Comments Med Refill Encounter Details Date Type Department Care Team ([facility] st Contact Info) Description 09/16/2023 Refill [facility] MED [facility] PEDS [address] [place], [place] [phone] Jackie Abdi MD [address] [place] [address] Acute pain of right shoulder Social History [...] [facility] MED & PEDS [address] [place] [address] Jackie Abdi MD [address] [place] [address] documented as of this encounter Visit Diagnoses Diagnosis Acute pain of right shoulder documented in this encounter Additional Health Concerns Assessment Noted Time PHQ-9 Depression Total Score: 21 023 8:57 AM EDT documented as of this encounter Care Teams Induction Machine Operator Relationship Specialty Start Date End Date Jackie Abdi MD [address] [place] [id number] PCP - General Family Medicine 04/29/13 documented as of this encounter
--- OUTSIDE RECORDS SUMMARY | 2024-06-06 10:23 | XMS_ITS | Encounter Summary ---
Author Organization [facility] Address [address] [place] [address] [place], [place] [address] Care Team Providers Care Wire Galvanizer Name Role Phone Jackie Abdi MD Primary Care Provider Encounter Details Date Type Department Care Team (Late st Contact Info) Description 03/18/2022 Orders Only [facility] MED & PEDS [address] [place] [address] Marielos Hooks LPN Social History Tobacco Use [...] [facility] MED & PED[facility] [address] [place] [address] Jackie Abdi MD [address] [place] [address] documented as of this encounter Visit Diagnoses Not on filedocumented in this encounter Care Teams Wire Galvanizer Relationship Specialty Start Date End Date Jackie Abdi MD [address] [place] [id number] PCP - General Family Medicine 04/29/13 documented as of this encounter
--- OUTSIDE RECORDS SUMMARY | 2024-06-06 10:23 | XMS_ITS | Encounter Summary ---
Author Organization [facility] Address [address] [place] [address] 7 [place] [address] Care Team Providers Care Terminal Manager Name Role Phone Jackie Abdi MD Primary Care Provider [phone] Reason for Visit * Reason Onset Date Comments Med Refill 12/05/2022 Encounter Details Date Type Department Care Team (Late st Contact Info) Description 12/05/2022 Refill [facility] MED & PEDS [address] [place] [address] Abby Duran MD Social History Tobacco Use [...] [facility] [address] [place] [address] Jackie Abdi MD [address] [place] [address] documented as of this encounter Visit Diagnoses Not on filedocumented in this encounter Additional Health Concerns Assessment Noted Time PHQ-9 Depression Total Score: 21 023 8:57 AM EDT documented as of this encounter Care Teams Terminal Manager Relationship Specialty Start Date End Date Jackie Abdi MD [address] [place] [address] PCP - General Family Medicine 04/29/13 documented as of this encounter
--- OUTSIDE RECORDS SUMMARY | 2024-06-06 10:23 | XMS_ITS | Encounter Summary ---
Author Organization [employer] Address [address] [facility] [address] [place] [address] Care Team Providers Care Radio Division Captain Name Role Phone Jackie Abdi MD Primary Care Provider [phone] Reason for Visit * Reason Comments Med Refill Encounter Details Date Type Department Care Team ([facility] st Contact Info) Description 10/23/2023 Refill [facility] MED & PEDS [address] [place], [place] [phone] Jackie Abdi MD [address] [place] [address] Social History Tobacco Use Types Packs/Day Years [...] 06/21/2024 10:00 AM EDT Office Visit [facility] MED & PEDS [address] [place] [address] Jackie Abdi MD [address] [place] [address] documented as of this encounter Visit Diagnoses Not on filedocumented in this encounter Additional Health Concerns Assessment Noted Time PHQ-9 Depression Total Score: 21 023 8:57 AM EDT documented as of this encounter Care Teams Radio Division Captain Relationship Specialty Start Date End Date Jackie Abdi MD [address] [place] [phone] PCP - General Family Medicine 04/29/13 documented as of this encounter
--- OUTSIDE RECORDS SUMMARY | 2024-06-06 10:23 | XMS_ITS | Encounter Summary ---
Author Organization [employer] Address [address] [facility] [address] [place] [address] Care Team Providers Care Monument Carver Name Role Phone Jackie Abdi MD Primary Care Provider [phone] Reason for Visit * Reason Comments Med Refill Encounter Details Date Type Department Care Team (Late Contact Info) Description 09/18/2022 Refill [facility] MED & PEDS [address] [place], [place] [phone] Ronnell Sanderson MD 505 [place] [address] Mid-back pain, acute Social History Tobacco Use [...] Description 06/21/2024 10:00 AM EDT Office Visit [facility] MED & PEDS [address] [place] [address] Jackie Abdi MD 505 [place] [address] documented as of this encounter Visit Diagnoses Diagnosis Mid-back pain, acute documented in this encounter Additional Health Concerns Assessment Noted Time PHQ-9 Depression Total Score: 21 023 8:57 AM EDT documented as of this encounter Care Teams Monument Carver Relationship Specialty Start Date End Date Jackie Abdi MD [address] [place] [phone] PCP - General Family Medicine 04/29/13 documented as of this encounter
--- OUTSIDE RECORDS SUMMARY | 2024-06-06 10:23 | XMS_ITS | Clinical Summary ---
Author Organization [facility] Address [address] [place] [phone] Phone Care Team Providers Care Superintendent Local Name Role Phone Jackie Abdi MD Primary Care Provider Allergies No known active allergies Medications cholecalcifero l (VITAMIN D-3) 1,250 mcg (50,000 unit) capsule Take 1 Capsule by mouth once a week. 09/26/19 24 Active MAGNESIUM CHLORIDE ORAL Take by mouth. Active multivitamin (MULTI-DAY ORAL) Take by mouth. Active omeprazole (PriLOSEC) [address] capsule TAKE 1 CAPSULE BY MOUTH TWICE DAILY 07/24/19 21 Active SIMVASTATIN ORAL Take by mouth. Active sucralfate (CARAFATE) 100 mg/mL suspension Take 10 mL by mouth 4 times daily. Take at least one dose at bedtime 09/22/19 24 Active simethicone 250 mg capsule Take 1 capsule by mouth 4 (four) times a day if needed (gassiness). 60 capsule 5 06/04/19 25 Active POTASSIUM ORAL Take by mouth as needed. Order by PCP - to take as a response to bloodwork. Pt vomits a lot and her potassium drops 025 Discontinued wheat dextrin (BENEFIBER CLEAR SF, DEXTRIN, ORAL) Wheat Dextrin (Benefiber) Powder Take 4 g by mouth daily. 10/09/19 21 025 Discontinued Active Problems Problem Noted Date Diagnosed Date Bile-induced gastritis 03/08/2024 Nausea and vomiting 03/08/2024 Overweight (BMI 25.0-29.9) 04/22/2021 Eating disorder 10/11/2020 Hypercholesteremia 10/11/2020 Obstructive sleep apnea 10/11/2020 Overview (03/08/2024): CPAP Gastroesophageal reflux dise ase with esophagitis without hemorrhage 05/03/2020 Encounters Date Type Department Care Team Description 06/03/2024 2:40 PM EST Office Visit Gastroenterology - [facility] [address] [facility] [address] [place] [address] Artis Leyva PA Epigastric pain (Primary Dx); Generalized abdominal pain; Gassiness; Dyspepsia; History of gastric bypass from Last 3 Months Immunizations Name Administration Dates Next Due Tdap Tetanus diptheria acell ular pertussis (Boostrix; Adacel) 7yo and older 01/19/2012 Surgical History Surgery Date Site/Laterality Comments OTHER SURGICAL HISTORY PROCEDURE: [place] [facility] TIBIAL FRACTURE PROXIMAL UNICONDYLAR CHOLECYSTECTOMY PROCEDURE: [place] LAPAROSCOPY SURG CHOLECYSTECTOMY BUNIONECTOMY PROCEDURE: BUNION SURGERY, SIMPLE REMOVAL SECTION PROCEDURE: [place] DELIVERY ONLY Medical History Medical History Date Comments Hypercholesteremia DX:Hyperchole steremia Class 2 severe obesity due t o excess calories with serious comorbidity and body mass index (BMI) of 35.0 to 35.9 in adult ([facility]) 05/03/2020 DX:Class 2 severe obesity du e to excess calories with serious comorbidity and body mass index (BMI) of 35.0 to 35.9 in adult ([facility]) Gastroesophageal reflux dise ase with esophagitis without [...] Mass Index 31.1 06/03/2024 2:34 PM EST Plan of Treatment Upcoming Encounters Date Type Department Care Team ([facility] st Contact Info) Description 06/16/2024 3:45 PM EDT Office Visit Bariatric Surgery - [facility] [address] [facility] [address] [place] [address] Aleksandar Heaton MD [address] [facility] [address] [place] [address] Health Maintenance Due Date Last Done Comments Breast Cancer Screening 1970 Cervical Cancer Screening: Pap Smear 1993 DTaP,Tdap,and Td Vaccines (2 - Td or Tdap) 01/18/2022 01/19/2012 Social Influencers of Health Screening 03/02/2022 Depression Screening 04/19/2025 04/19/2024 Cholesterol Screening (Lipid Panel) 06/27/2025 06/27/2020 Colorectal Cancer Screening: FIT-DNA (Cologuard) 02/23/2026 02/23/2023 HIV Screening Completed 12/12/2020 Hepatitis C Screening Completed 09/22/2023 COVID-19 Vaccine Completed 12/03/2023, , 01/22/2022, Additional history exists Influenza Vaccine Completed 12/03/2023, , 01/20/2022, Additional history exists Hepatitis A Vaccines Aged Out 03/18/2024 No long er eligible based on patient's age to complete this topic Hepatitis B Vaccines Completed 03/18/2024, 02/08/2021, 01/09/2021 Pneumococcal Vaccine: 50+ Years Completed 03/18/2024, 02/21/2017 Pneumococcal Vaccine: Pediatrics (0 to 5 Years) and At-Risk Patients (6 to 64 Years) Completed 03/18/2024, 02/21/2017 Zoster Vaccines Completed 03/18/2024, [...] to complete this topic RSV Immunization Patients Under 20 months Aged Out No longer eligible based on patient's age to complete this topic Varicella Vaccines Aged Out No longer eligible based on patient's age to complete this topic Procedures Procedure Name Priority Date/Time Associated Diagnosis Comments HEPATITIS C SCREENING Routine 09/22/2023 LIPID PANEL Routine 06/27/2020 from Last 3 Months or Most Recently Relevant to Health Maintenance Results * Hepatitis C Screening (09/22/2023) Pathologist [facility] Hepatitis C Screening abstracted Historical [...] Relevant to Health Maintenance Insurance MEDICAID - [place] Care Teams Superintendent Local Relationship Specialty Start Date End Date Jackie Abdi MD [address] [place] [phone] PCP - General 10/20/16
--- OUTSIDE RECORDS SUMMARY | 2024-06-06 10:23 | XMS_ITS | Encounter Summary ---
Author Organization [employer] Address [address] [place] [address] [address] [address] Care Team Providers Care Van Helper Name Role Phone Jackie Abdi MD Primary Care Provider [phone] Encounter Details Date Type Department Care Team (Late st Contact Info) Description 10/01/2022 Abstract [facility] MEDICINE 230 [place] [address] Jackie Abdi MD 505 [place] [address] Social History Tobacco Use Types Packs/Day Years [...] Description 06/21/2024 10:00 AM EDT Office Visit [facility] CHC MED & PEDS 505 [place] [address] Jackie Abdi MD 505 [place] [address] documented as of this encounter Visit Diagnoses Not on filedocumented in this encounter Additional Health Concerns Assessment Noted Time PHQ-9 Depression Total Score: 21 023 8:57 AM EDT documented as of this encounter Care Teams Van Helper Relationship Specialty Start Date End Date Jackie Abdi MD 230 [place] [address] PCP - General Family Medicine 04/29/13 documented as of this encounter
--- OUTSIDE RECORDS SUMMARY | 2024-06-06 10:23 | XMS_ITS | Encounter Summary ---
Author Organization [employer] Address 75 [facility] 7t [place] [address] Care Team Providers Care Public Address Technician Name Role Phone Jackie Abdi MD Primary Care Provider [phone] Reason for Visit * Reason Onset Date Comments talent development analyst 09/09/2023 Encounter Details Date Type Department Care Team (Late st Contact Info) Description 09/09/2023 Telephone [facility] ADULT D[facility]AL [address] [place] [address] Sharon Fernandez DMD talent development analyst Social History Tobacco Use Types Packs/Day Years [...] t he electric, gas, oil or water [employer] threatened to shut off services in your [...] Patient called in stating hat [facility] to see where she can [...] Description 06/21/2024 10:00 AM EDT Office Visit [facility] MED & PEDS 505 [place] [address] Jackie Abdi MD 505 [place] [address] documented as of this encounter Visit Diagnoses Not on filedocumented in this encounter Additional Health Concerns Assessment Noted Time PHQ-9 Depression Total Score: 21 023 8:57 AM EDT documented as of this encounter Care Teams Public Address Technician Relationship Specialty Start Date End Date Jackie Abdi MD [address] [place] [address] PCP - General Family Medicine 04/29/13 documented as of this encounter
--- OUTSIDE RECORDS SUMMARY | 2024-06-06 10:23 | XMS_ITS | Encounter Summary ---
Author Organization [employer] Address 75 [facility] 7t [place] [address] Care Team Providers Care Sql Server Developer Name Role Phone Jackie Abdi MD Primary Care Provider [phone] Reason for Visit * Reason Onset Date Comments Referral 08/26/2023 Encounter Details Date Type Department Care Team ([facility] st Contact Info) Description 08/26/2023 Telephone [facility] MEDICINE 230 [place] [address] Jackie Abdi MD [address] [place] [address] Referral Social History Tobacco Use Types Packs/Day [...] EDT Tc from pt was advised by corrosion control technician office to request new referral due not being seen until 2020. Address: [address] [place] [address] [address] [facility] [address] Facility Name: [facility]. Type of Specialist: Credit Review Officer Pt is also requesting referral for a urologist and or cold patcher due to some recent concerns. (Ptwas triaged) If any questions please contact pt at [phone]. documented in this encounter Plan of Treatment Upcoming Encounters Date Type Department Care Team ([facility] st Contact Info) Description 06/21/2024 10:00 AM EDT Office Visit [facility] MED & PEDS 505 [place] [address] Jackie Abdi MD 505 [place] [address] documented as of this encounter Visit Diagnoses Not on filedocumented in this encounter Additional Health Concerns Assessment Noted Time PHQ-9 Depression Total Score: 21 023 8:57 AM EDT documented as of this encounter Care Teams Sql Server Developer Relationship Specialty Start Date End Date Jackie Abdi MD 230 [place] [address] PCP - General Family Medicine 04/29/13 documented as of this encounter
--- OUTSIDE RECORDS SUMMARY | 2024-06-06 10:23 | XMS_ITS | Encounter Summary ---
Author Organization [employer] Address 75 [facility] 7t [place] [address] Care Team Providers Care Exercise Equipment Repair Technician Name Role Phone Jackie Abdi MD Primary Care Provider [phone] Reason for Visit * Reason Onset Date Comments Med Refill 02/26/2023 Encounter Details Date Type Department Care Team (Late st Contact Info) Description 02/26/2023 Refill [facility] CHC MED & PEDS 505 [place] [address] Jackie Abdi MD 505 [place] [address] Social History Tobacco Use Types Packs/Day Years [...] AM EDT Office Visit [facility] MED & PEDS 505 [place] [address] Jackie Abdi MD 505 [place] [address] documented as of this encounter Visit Diagnoses Not on filedocumented in this encounter Additional Health Concerns Assessment Noted Time PHQ-9 Depression Total Score: 21 023 8:57 AM EDT documented as of this encounter Care Teams Exercise Equipment Repair Technician Relationship Specialty Start Date End Date Jackie Abdi MD [address] [place] [address] PCP - General Family Medicine 04/29/13 documented as of this encounter
--- OUTSIDE RECORDS SUMMARY | 2024-06-06 10:23 | XMS_ITS | Encounter Summary ---
Author Organization [employer] Address 75 [facility] 7t [place] [address] Care Team Providers Care Iron Carrier Name Role Phone Jackie Abdi MD Primary Care Provider [phone] Reason for Visit * Reason Comments Med Refill Encounter Details Date Type Department Care Team ([facility] st Contact Info) Description 06/03/2024 Refill [facility] MEDICINE 230 [place] [address] Jackie Abdi MD [address] [place] [address] Social History Tobacco Use Types Packs/Day Years [...] [facility] 505 [place] [address] Jackie Abdi MD 505 [place] [address] documented as of this encounter Visit Diagnoses Not on filedocumented in this encounter Additional Health Concerns Assessment Noted Time PHQ-9 Depression Total Score: 14 025 11:23 AM EST documented as of this encounter Care Teams Iron Carrier Relationship Specialty Start Date End Date Jackie Abdi MD [address] [place] [address] PCP - General Family Medicine 04/29/13 documented as of this encounter
--- OUTSIDE RECORDS SUMMARY | 2024-06-06 10:23 | XMS_ITS | Encounter Summary ---
Author Organization [employer] Address 75 [facility] 7t [place] [address] Care Team Providers Care Angle Bender Name Role Phone Jackie Abdi MD Primary Care Provider [phone] Reason for Visit * Reason Onset Date Comments Appt materials 01/21/2023 Encounter Details Date Type Department Care Team (Late st Contact Info) Description 01/21/2023 Telephone C CHC ADULT DENTAL [address] [place] [address] Sharon Fernandez DMD Appt materials Social History [...] t he electric, gas, oil or water [employer] threatened to shut off services in your [...] Description 06/21/2024 10:00 AM EDT Office Visit [facility] CHC MED & PEDS 505 [place] [address] Jackie Abdi MD 505 [place] [address] documented as of this encounter Visit Diagnoses Not on filedocumented in this encounter Additional Health Concerns Assessment Noted Time PHQ-9 Depression Total Score: 21 023 8:57 AM EDT documented as of this encounter Care Teams Angle Bender Relationship Specialty Start Date End Date Jackie Abdi MD [address] [place] [address] PCP - General Family Medicine 04/29/13 documented as of this encounter
--- OUTSIDE RECORDS SUMMARY | 2024-06-06 10:23 | XMS_ITS | Encounter Summary ---
Author Organization [employer] Address [address] [place] [address] 7t [place] [address] Care Team Providers Care Home Lighting Adviser Name Role Phone Jackie Abdi MD Primary Care Provider [phone] Encounter Details Date Type Department Care Team (Late st Contact Info) Description 12/08/2022 Telephone [facility] CHC MED & PEDS 505 [place], [place] [phone] Jackie Abdi MD 505 [place] [address] Social History Tobacco Use Types Packs/Day Years [...] 06/21/2024 10:00 AM EDT Office Visit [facility] CHC MED & PEDS [address] [place] [address] Jackie Abdi MD [address] [place] [address] documented as of this encounter Visit Diagnoses Not on filedocumented in this encounter Additional Health Concerns Assessment Noted Time PHQ-9 Depression Total Score: 21 023 8:57 AM EDT documented as of this encounter Care Teams Home Lighting Adviser Relationship Specialty Start Date End Date Jackie Abdi MD [address] [place] [address] PCP - General Family Medicine 04/29/13 documented as of this encounter
--- OUTSIDE RECORDS SUMMARY | 2024-06-06 10:23 | XMS_ITS | Encounter Summary ---
Author Organization [employer] Address [address] [place] [address] 7 [place] [address] Care Team Providers Care Pad Machine Offbearer Name Role Phone Jackie Abdi MD Primary Care Provider [phone] Reason for Visit * Reason Onset Date Comments Med Refill 10/24/2022 Encounter Details Date Type Department Care Team (Late st Contact Info) Description 10/24/2022 Refill [facility] MEDICINE 230 [place] [address] Jackie Abdi MD 505 [place] [address] Social History Tobacco Use Types Packs/Day Years [...] Description 06/21/2024 10:00 AM EDT Office Visit [facility] CHC MED & PEDS 505 [place], [place] [phone] Jackie Abdi MD 505 [place], [place] [phone] documented as of this encounter Visit Diagnoses Not on filedocumented in this encounter Additional Health Concerns Assessment Noted Time PHQ-9 Depression Total Score: 21 023 8:57 AM EDT documented as of this encounter Care Teams Pad Machine Offbearer Relationship Specialty Start Date End Date Jackie Abdi MD [address] [place] [address] [place] [address] PCP - General Family Medicine 04/29/13 documented as of this encounter
--- OUTSIDE RECORDS SUMMARY | 2024-06-06 10:24 | XMS_ITS | Encounter Summary ---
Author Organization [employer] Address 75 [facility] 7t [place] [address] Care Team Providers Care Coding Quality Analyst Name Role Phone Jackie Abdi MD Primary Care Provider [phone] Reason for Visit * Reason Comments Med Refill Encounter Details Date Type Department Care Team ([facility] st Contact Info) Description 06/01/2024 Refill [facility] MEDICINE 230 [place] [address] Jackie Abdi MD [address] [place] [address] Acute pain of right shoulder Social History [...] [facility] MED & PEDS 505 [place] [address] Jackie Abdi MD 505 [place] [address] documented as of this encounter Visit Diagnoses Diagnosis Acute pain of right shoulder documented in this encounter Additional Health Concerns Assessment Noted Time PHQ-9 Depression Total Score: 14 025 11:23 AM EST documented as of this encounter Care Teams Coding Quality Analyst Relationship Specialty Start Date End Date Jackie Abdi MD [address] [place] [address] PCP - General Family Medicine 04/29/13 documented as of this encounter
--- OUTSIDE RECORDS SUMMARY | 2024-06-06 10:24 | XMS_ITS | Encounter Summary ---
Author Organization [employer] Address 75 [facility] 7t [place] [address] Care Team Providers Care Bowling Ball Grader Name Role Phone Jackie Abdi MD Primary Care Provider Encounter Details Date Type Department Care Team (Late Contact Info) Description 06/03/2022 Orders Only [facility] CHC MED & PEDS 505 [place] [address] Kaylin Kaur MD 505 [place] [address] Mid-back pain, acute (Primary Dx) Social History [...] [facility] MED & PEDS 505 [place], [place] [phone] Jackie Abdi MD [address] [place] [address] documented as of this encounter Visit Diagnoses Diagnosis Mid-back pain, acute- Primary documented in this encounter Care Teams Bowling Ball Grader Relationship Specialty Start Date End Date Jackie Abdi MD [address] [place] [address] PCP - General Family Medicine 04/29/13 documented as of this encounter
--- OUTSIDE RECORDS SUMMARY | 2024-06-06 10:24 | XMS_ITS | Encounter Summary ---
Author Organization [employer] Address 75 [facility] 7t [place] [address] Care Team Providers Care Chucking Machine Set Up Operator Name Role Phone Jackie Abdi MD Primary Care Provider [phone] Reason for Visit * Reason Onset Date Comments Med Refill 11/13/2023 Encounter Details Date Type Department Care Team (Late st Contact Info) Description 11/13/2023 Refill [facility] MEDICINE 230 [place] [address] Jackie Abdi MD [address] [place] [address] Social History Tobacco Use Types Packs/Day Years [...] 10:00 AM EDT Office Visit [facility] MED & PEDS 505 [place] [address] Jackie Abdi MD 505 [place] [address] documented as of this encounter Visit Diagnoses Not on filedocumented in this encounter Additional Health Concerns Assessment Noted Time PHQ-9 Depression Total Score: 21 023 8:57 AM EDT documented as of this encounter Care Teams Chucking Machine Set Up Operator Relationship Specialty Start Date End Date Jackie Abdi MD 230 [place] [address] PCP - General Family Medicine 04/29/13 documented as of this encounter
--- OUTSIDE RECORDS SUMMARY | 2024-06-06 10:24 | XMS_ITS | Encounter Summary ---
Author Organization [employer] Address [address] [facility] [address] 7t [place] [address] Care Team Providers Care Employment Specialist/Program Manager Name Role Phone Jackie Abdi MD Primary Care Provider [phone] Encounter Details Date Type Department Care Team (Late st Contact Info) Description 12/07/2023 Orders Only [facility] [address] [place] [phone] Hiren Garcia MD 230 [place], [place] [phone] Social History Tobacco Use Types Packs/Day Years [...] t he electric, gas, oil or water [employer] threatened to shut off services in your [...] Description 06/21/2024 10:00 AM EDT Office Visit [facility] CHC MED & PEDS [address] [place] [address] Jackie Abdi MD [address] [place] [address] documented as of this encounter Procedures Procedure Name Priority Date/Time Associated Diagnosis Comments STRESS TEST WITH MYOCARDIAL PERFUSION Routine 01/01/2024 9:09 AM EDT documented in this encounter Results * Stress test with myocardial perfusion (01/01/2024 9:09 AM EDT) 01/01/2024 9:09 AM EDT Narrative [facility] IMAGING - 01/04/2024 4:19 PM EDT ? [facility] ?[address] ?[place] [address] ?Nuclear Medicine Report ? Signed ? Patient: Philly,Sade ?MR#: [id number] ?? 4 ? : 1970 ?Acct:[id number] ? Age/Sex: 53 / F ?ADM Date: 10/04/24 ? Loc: HO.CARD ? Attending Rod Ricketts MD ? Ordering Physician: Abdelrahman Ricketts MD ?? Date of Service: 01/01/24 ?? Procedure(s): NM cardiolite stress test ?? Accession Number(s): [id number] ? cc: Jackie Abdi MD; Abdelrahman Ricketts [...] DD/ 0909 ? TD/TT: 01/04/24 1200 ? Watermelon Inspector: ? Procedure Note Kaylyn Barnes - 01/04/[address] [place] [address] Nuclear Medicine Report Signed Patient: Gray Fraga#: [id number] 4 : 1970Acct:[id number] Age/Sex: 53 / FADM Date: 01/01/24 Loc: [facility] Attending Dr: Abdelrahman Ricketts MD Ordering Physician: Abdelrahman Ricketts MD Date of Service: 01/01/24 Procedure(s): NM cardiolite stress test Accession Number(s): [id number] cc: Jackie Abdi MD; Abdelrahman Ricketts MD [...] 01/04/24 1616 DD/ 0909 TD/TT: 01/04/24 1200 Watermelon Inspector: [facility] External Provider CV STRE SS PROCEDURES Final Result [facility] IMAGING [address] [place] [address] documented in this encounter Visit Diagnoses Not on filedocumented in this encounter Additional Health Concerns Assessment Noted Time PHQ-9 Depression Total Score: 21 023 8:57 AM EDT documented as of this encounter Care Teams Employment Specialist/Program Manager Relationship Specialty Start Date End Date Jackie Abdi MD [address] [place] [address] PCP - General Family Medicine 04/29/13 documented as of this encounter
--- OUTSIDE RECORDS SUMMARY | 2024-06-06 10:24 | XMS_ITS | Encounter Summary ---
Author Organization [employer] Address 75 [facility] 7t [place] [address] Care Team Providers Care Financial Foundations Associate Name Role Phone Jackie Abdi MD Primary Care Provider [phone] Reason for Visit * Reason Onset Date Comments call back 06/03/2022 Encounter Details Date Type Department Care Team ([facility] st Contact Info) Description 06/03/2022 Telephone [facility] MEDICINE 230 [place] [address] Jackie Abdi MD [address] [place] [address] call back Social History Tobacco Use Types [...] a call back. Please contact pt at [phone] documented in this encounter Plan of Treatment Upcoming Encounters Date Type Department Care Team ([facility] st Contact Info) Description 06/21/2024 10:00 AM EDT Office Visit [facility] MED & PEDS 505 [place] [address] Jackie Abdi MD 505 [place] [address] documented as of this encounter Visit Diagnoses Not on filedocumented in this encounter Care Teams Financial Foundations Associate Relationship Specialty Start Date End Date Jackie Abdi MD [address] [place] [address] PCP - General Family Medicine 04/29/13 documented as of this encounter
--- OUTSIDE RECORDS SUMMARY | 2024-06-06 10:24 | XMS_ITS | Encounter Summary ---
Author Organization [employer] Address 75 [facility] 7t [place] [address] Care Team Providers Care Electronic Sensing Equipment Assembler Name Role Phone Jackie Abdi MD Primary Care Provider [phone] Reason for Visit * Reason Comments Med Refill Encounter Details Date Type Department Care Team ([facility] st Contact Info) Description 06/08/2023 Refill [facility] MEDICINE 230 [place] [address] Jackie Abdi MD [address] [place] [address] Depressed mood Social History Tobacco Use Types [...] Description 06/21/2024 10:00 AM EDT Office Visit [facility] MED & PEDS 505 [place] [address] Jackie Abdi MD 505 [place] [address] documented as of this encounter Visit Diagnoses Diagnosis Depressed mood documented in this encounter Additional Health Concerns Assessment Noted Time PHQ-9 Depression Total Score: 21 023 8:57 AM EDT documented as of this encounter Care Teams Electronic Sensing Equipment Assembler Relationship Specialty Start Date End Date Jackie Abdi MD [address] [place] [address] PCP - General Family Medicine 04/29/13 documented as of this encounter
--- OUTSIDE RECORDS SUMMARY | 2024-06-06 10:24 | XMS_ITS | Encounter Summary ---
Author Organization [employer] Address [address] [place] [address] [place], [place] [address] Care Team Providers Care Hr Consultant Name Role Phone Jackie Abdi MD Primary Care Provider [phone] Reason for Visit * Reason Onset Date Comments Med Refill 12/08/2022 Encounter Details Date Type Department Care Team (Late st Contact Info) Description 12/08/2022 Refill [facility] MED & PEDS 505 [facility] [place] [address] Jackie Abdi MD 505 [place] [address] Social History Tobacco Use Types Packs/Day Years [...] [facility] 505 [place] [address] Jackie Abdi MD 505 [place] [address] documented as of this encounter Visit Diagnoses Not on filedocumented in this encounter Additional Health Concerns Assessment Noted Time PHQ-9 Depression Total Score: 21 023 8:57 AM EDT documented as of this encounter Care Teams Hr Consultant Relationship Specialty Start Date End Date Jackie Abdi MD [address] [place] [address] PCP - General Family Medicine 04/29/13 documented as of this encounter
--- OUTSIDE RECORDS SUMMARY | 2024-06-06 10:24 | XMS_ITS | Encounter Summary ---
Author Organization [id number] Address 75 [facility] 7t [place] [address] Care Team Providers Care Demo Event Specialist Name Role Phone Jackie Abdi MD Primary Care Provider Reason for Visit * Reason Onset Date Comments Results 04/30/2022 Encounter Details Date Type Department Care Team ([facility] Contact Info) Description 04/30/2022 Telephone [facility] MEDICINE 230 [place] [address] Jackie Abdi MD [address] [place] [address] Results Social History Tobacco Use Types Packs/Day [...] regarding xray results Please contact pt at [phone] documented in this encounter Plan of Treatment Upcoming Encounters Date Type Department Care Team (Late st Contact Info) Description 06/21/2024 10:00 AM EDT Office Visit [facility] CHC MED & PEDS 505 [place] [address] Jackie Abdi MD 505 [place] [address] documented as of this encounter Visit Diagnoses Not on filedocumented in this encounter Care Teams Demo Event Specialist Relationship Specialty Start Date End Date Jackie Abdi MD [address] [place] [address] PCP - General Family Medicine 04/29/13 documented as of this encounter
--- OUTSIDE RECORDS SUMMARY | 2024-06-06 10:24 | XMS_ITS | Encounter Summary ---
Author Organization [employer] Address 75 [facility] 7t [place] [address] Care Team Providers Care Fiscal Accounting Clerk Name Role Phone Jackei Abdi MD Primary Care Provider [phone] Encounter Details Date Type Department Care Team ([facility] st Contact Info) Description 03/11/2023 Abstract [facility] 230 [place] [address] Jackie Abdi MD [address] [place] [address] Social History Tobacco Use Types Packs/Day Years [...] [facility] MED & PEDS 505 [place] [address] Jackie Abdi MD 505 [place] [address] documented as of this encounter Visit Diagnoses Not on filedocumented in this encounter Additional Health Concerns Assessment Noted Time PHQ-9 Depression Total Score: 21 023 8:57 AM EDT documented as of this encounter Care Teams Fiscal Accounting Clerk Relationship Specialty Start Date End Date Jackie Abdi MD [address] [place] [address] PCP - General Family Medicine 04/29/13 documented as of this encounter
--- OUTSIDE RECORDS SUMMARY | 2024-06-06 10:24 | XMS_ITS | Encounter Summary ---
Author Organization [employer] Address 75 [facility] 7t [place] [address] Care Team Providers Care Research Spec Name Role Phone Jackie Abdi MD Primary Care Provider [phone] Reason for Visit * Reason Onset Date Comments Nurse Triage 08/03/2023 Encounter Details Date Type Department Care Team ([facility] st Contact Info) Description 08/03/2023 Telephone [facility] [address] [place] [address] Jackie Abdi MD [address] [place] [address] Nurse Triage Social History Tobacco Use Types [...] point. pt states is currently at the [facility] for evaluation. advised to complete the [...] 06/21/2024 10:00 AM EDT [facility] 505 [place] [address] Jackie Abdi MD 505 [place] [address] documented as of this encounter Visit Diagnoses Not on filedocumented in this encounter Additional Health Concerns Assessment Noted Time PHQ-9 Depression Total Score: 21 06/26/ 023 8:57 AM EDT documented as of this encounter Care Teams Research Spec Relationship Specialty Start Date End Date Jackie Abdi MD [address] [place] [address] PCP - General Family Medicine 04/29/13 documented as of this encounter
--- OUTSIDE RECORDS SUMMARY | 2024-06-06 10:24 | XMS_ITS | Encounter Summary ---
Author Organization [employer] Address 75 [facility] 7t [place] [address] Care Team Providers Care Client Account Specialist Name Role Phone Jackie Abdi MD Primary Care Provider [phone] Reason for Visit * Reason Comments Med Refill Encounter Details Date Type Department Care Team ([facility] st Contact Info) Description 11/13/2023 Refill [facility] [address] [place] [address] Jackie Abdi MD [address] [place] [address] Social History Tobacco Use Types Packs/Day Years [...] 06/21/2024 10:00 AM EDT Office Visit [facility] [address] [place] [address] Jackie Abdi MD 505 [place] [address] documented as of this encounter Visit Diagnoses Not on filedocumented in this encounter Additional Health Concerns Assessment Noted Time PHQ-9 Depression Total Score: 21 023 8:57 AM EDT documented as of this encounter Care Teams Client Account Specialist Relationship Specialty Start Date End Date Jackie Abdi MD [address] [place] [address] PCP - General Family Medicine 04/29/13 documented as of this encounter
--- OUTSIDE RECORDS SUMMARY | 2024-06-06 10:24 | XMS_ITS | Clinical Summary ---
Author Organization [employer] Address 75 [facility] 7t [place] [address] Care Team Providers Care General Expeditor Name Role Phone Jackie Abdi MD Primary Care Provider [phone] Allergies Active Allergy Reactions Criticality Noted Date Comments Sulfamethoxazole-Trimethoprim Angioedema 2023 Medications Multiple Vitamin (Multi-Vitamin) tablet Take 1 tablet by mouth at bed time. Active cholecalciferol (Vitamin D-3) 1.25 MG (72831 UT) capsule Take 1 capsule by mouth. [...] CAPSULE BY MOUTH TWICE DAILY 40 capsule 06/07/19 25 Active celecoxib (CeleBREX) 200 MG capsuleIndications :Acute pain of right shoulder TAKE 1 CAPSULE BY MOUTH TWICE DAILY 40 capsule 11/17/19 24 2024 Discontinued cyclobenzaprine (Flexeril) 10 MG tablet TAKE 1 TABLET(10 MG) BY MOUTH AT BEDTIME 30 tablet 04/01/19 25 2024 Discontinued celecoxib (CeleBREX) 200 MG capsuleIndications :Acute pain of right shoulder TAKE 1 CAPSULE BY MOUTH TWICE DAILY 40 capsule 05/10/19 25 2024 Discontinued Active Problems Problem Noted [...] Date Type Department Care Team Description 06/03/2024 Refill [facility] [address] [place] [address] Jackie Abdi MD 06/01/2024 Refill [facility] [address] [place] [address] Jackie Abdi MD Acute pain of right shoulder 05/08/2024 Refill [facility] [address] [place] [address] Jackie Abdi MD Acute pain of right shoulder 04/26/2024 10:00 AM EST Office Visit [facility] [address] [place] [address] Hiren Garcia MD Chronic pain in right shoulder (Primary Dx); Acute bilateral ankle pain 04/22/2024 Orders Only [facility] [address] [place] [address] Pola Maldonado CNM 04/21/2024 2:00 PM EST Office Visit [address] [address] Pola Maldonado CNM Vaginal discharge (Primary Dx); Atrophic vaginitis; Pain in female genitalia on intercourse; Menopausal syndrome (hot flashes); Screening mammogram for breast cancer 04/21/2024 Outside Procedure [facility] [address] [place] [address] An Hernandez, OD Presbyopia of both eyes (Primary Dx) 04/20/2024 Travel 04/19/2024 3:30 PM EST Office Visit [facility] [address] [place] [address] An Hernandez, OD Hyperopia of both eyes (Primary Dx) 04/19/2024 11:30 AM EST Telemedicine [facility] [address] [place], [place] [phone] Jackie Abdi MD Vaginal itching (Primary Dx); Pain in female genitalia on intercourse 04/19/2024 Travel 04/12/2024 Travel 04/08/2024 Telephone [facility] [address] [place] [address] Jackie Abdi MD appt 04/01/2024 Refill [facility] [place] [address] Jackie Abdi MD 03/25/2024 Orders Only [facility] External Provider, [facility] from Last 3 Months Immunizations Name [...] 06/21/2024 10:00 AM EDT Office Visit [facility] [address] [place] [address] Jackie Abdi MD [address] [place] [address] Health Maintenance Due Date Last Done Comments [...] EST Narrative 04/27/2024 9:35 AM EST ? [facility] ?[address] ?[place] [address] ? Ultrasound Report ? Signed ? Patient: Philly,Sade ?MR#: [id number] ?? 4 ? : 1970 ?Acct:[id number] ? Age/Sex: 54 / F ?ADM Date: 04/26/24 ? Loc: HO.US ? Attending Dr: Pola Maldonado CNM ? Ordering Physician: POLA MALDONADO CNM ?? Date of Service: 04/26/24 ?? Procedure(s): US pelvic and transvaginal ?? Accession Number(s): [id number] ? cc: Jackie Abdi MD; POLA MALDONADO [...] not seen. ? Electronically signed by: ??Gary Flaca MD ??04/27/2024 09:32 AM EST RP ? Dictated By: ?Flaca,Gary S MD ? Signed By: ?<Electronically signed by Gary S Flaca, MD in OV> ?04/27/24 0932 ? DD/ 1615 ? TD/TT: 04/26/24 1623 ? Rug Layer: MSM ? Procedure Note Donotuseinterpreter, Image - 04/27/2024 [place] [address] Ultrasound Report Signed Patient: Gray Fraga#: [id number] 4 : 1970Acct:[id number] Age/Sex: 54 / FADM Date: 04/26/24 Loc: HO.US Attending Dr: Pola Maldonado CNM Ordering Physician: POLA MALDONADO CNM Date of Service: 04/26/24 Procedure(s): US pelvic and transvaginal Accession Number(s): [id number] cc: Jackie Abdi MD; POLA MALDONADO CNM [...] ovary is not seen. Electronically signed by: aGry Thayer MD 04/27/2024 09:32 AM EST Dictated By: Gary Thayer MD Signed By: <Electronically signed by Gary Thayer MD in OV> 04/27/24 0932 DD/ 1615 TD/TT: 04/26/24 1623 Rug Layer: BRAYDON Pola Maldonado CNM IMG US PROCEDURES Edited Result - Final * POCT fern test, vaginal fluid manually resulted (04/21/2024 2:42 PM EST) MISSAEL Prep Negative Comment:pH 5, neg whiff, neg clue, neg trich, neg wbc, neg yeast, parabasal cells noted Vaginal Fluid Vaginal structure / Unknown 04/21/2024 2:42 PM EST Impressions Pola Maldonado CNM - 04/21/2024 2:42 PM EST Atrophic vaginitis Pola Maldonado CNM POINT OF CARE TEST ENTER/ EDIT ORDERABLES [...] 2:24 PM EST 04/21/2024 5:25 PM EST Result [facility] Pola Maldonado CNM LAB MICROBIOLOGY - GENERA L ORDERABLES Final Result [facility] [address] [place] [address] [phone] * US Retroperitoneal Complete (03/25/2024 10:07 AM EST) Anatomical Region Laterality Modality Ultrasound 03/25/2024 10:0 7 AM EST Narrative 04/08/2024 9:22 AM EST ? [facility] ?[address] ?[place] [address] ? Ultrasound Report ? Signed ? Patient: Philly,Sade ?MR#: [id number] ?? 4 ? : 1970 ?Acct:[id number] ? Age/Sex: 54 / F ?ADM Date: 03/25/24 ? Loc: HO.US ? Attending Dr: Sarah HARE ? Ordering Physician: Sarah Gomez ?? Date of Service: 03/25/24 ?? Procedure(s): US retroperitoneal comp ?? Accession Number(s): [id number] ? cc: Sarah Gomez; Jackie Abdi MD ? EXAMINATION: ?? US RETROPERITONEAL COMPLETE (RENAL) ? CLINICAL INFORMATION: ?? Urinary tract infection, site not specified. ? COMPARISON: ?? Ultrasound abdomen limited 10/22/2022. ? TECHNIQUE: ?? Real-time imaging of the kidneys and bladder. ? Exam submitted for review 04/08/2024 8:18 AM PRINCIPAL CLOUD ARCHITECT. ? FINDINGS: ? RIGHT KIDNEY: 9.7 x [...] signed by Lee Rankin MD in OV> ?04/08/24 0919 ? DD/ 1007 ? TD/TT: 03/25/24 1020 ? Rug Layer: ? Procedure Note Kaylyn Barnes - 04/08/2024 [place] [address] Ultrasound Report Signed Patient: Gray Fraga#: [id number] 4 : 1970Acct:[id number] Age/Sex: 54 / FADM Date: 03/25/24 Loc: HO.US Attending Dr: Sarah HARE Ordering Physician: Sarah Gomez Date of Service: 03/25/24 Procedure(s): US retroperitoneal comp Accession Number(s): [id number] cc: Sarah Gomez; Jackie Abdi MD EXAMINATION: US RETROPERITONEAL COMPLETE (RENAL) CLINICAL INFORMATION: Urinary tract infection, site not specified. COMPARISON: Ultrasound abdomen limited 10/22/2022. TECHNIQUE: Real-time imaging of the kidneys and bladder. Exam submitted for review 04/08/2024 8:18 AM PRINCIPAL CLOUD ARCHITECT. FINDINGS: RIGHT KIDNEY: 9.7 x 5.7 x [...] 04/08/24 0919 DD/ 1007 TD/TT: 03/25/24 1020 Rug Layer: us [facility] External Provider IMG US PROCEDURES Final Result * Cologuard?? colon cancer screening (02/23/2023 10:44 AM EST) Cologuard Result Negative Negative 03/01/20 3:14 PM EST Context Relevant (OTI GreentechIA #:[id number]) Comment: NEGATIVE TEST RESULT. A negative Cologuard [...] cancer. ??Following a negative Cologuard result, the [place] Cancer Society and U.S. Multi-Society Task Force screening guidelines recommend a Cologuard re-screening interval of 3 years. References: [place] [employer] Guideline for Colorectal Cancer Screening: https://www.cancer.org/cancer/eytte-xvoutz-vuqenu/kixvwnqow-eybopstia-hytizgw/ac s-rec ommendations.html.; Bean DK, Mitchell GAO, Dank WeberK, Colorectal Cancer Screening: Recommendations for Physicians and Patients from the U.S. Multi-Society Task Force on Colorectal Cancer Screening , Am J Gastroenterology 2017; 112:8298-9278. TEST DESCRIPTION: Composite algorithmic analysis of stool [...] (Javi Frank al, N Engl J Med 2014;370(14):8282-0454.) Cologuard may produce a false negative or false positive result (no colorectal cancer or precancerous polyp present at colonoscopy follow up). A negative Cologuard test result does not guarantee the absence of CRC or advanced adenoma (pre-cancer). The current Cologuard screening interval is every 3 years. ([place] Cancer Society and U.S. Multi-Society Task Force). Cologuard performance data in a 10,000 patient pivotal study using colonoscopy as the reference method can be accessed at the following location: www.[employer].Fifty100/results. Additional description of the Cologuard test process, warnings and precautions can be found at www.[employer] Kid!ogWine Nationrd.Fifty100. Stool specimen (specimen) 02/23/2023 10:44 AM EST 02/24/2023 1:44 PM EST Jackie Abdi MD LAB MOLECULAR DIAGNOSTICS ASHOK MELENDEZ Final Result Context Relevant (CLIA #:[id number]) [place] [address], * Thinprep TIS PAP And HPV mRNA E6/E7, CT/NG, TRICH (04/08/2022 4:21 PM EST) Clinical Information: SCREENING, PELVIC PAIN [facility] LMP: NONE GIVEN [facility] Prev. PAP: NONE GIVEN [facility] Prev. BX: NONE GIVEN [facility] SOURCE: None given [facility] Statement Of Adequacy: [facility] Comment: Satisfactory for evaluation. Endocervical/transformation zone component present. Age and/or menstrual status not provided Interpretation/Re sult: Negative for intraepithelial lesion or malignancy. [facility] COMMENT: This Pap test has been evaluated with computer assisted technology. [facility] Industrial Safety Engineer: Jose ruano [facility] Comment: DMM, CT(ASCP) CT screening location: [address] ??[address] (Always Message) [facility] [place] [facility] Comment: EXPLANATORY NOTE: The Pap is a [...] HPV nRNA E6/E7 Not Detected Not Detected [facility] [place] [facility] Comment: Methodology: Typewriter Operator Automatic-Mediated Amplification This assay detects E6/E7 viral messenger RNA (mRNA) from 14 high-risk HPV types (16,18,31,33,35,39,45,51,52,56,58,59,66,68). Cervical sources are required for HPV testing. If a vaginal source from a patient who has had a total hysterectomy with removal of cervix was submitted, please contact the testing laboratory for alternative testing options. For additional information, please refer to http://[employer].CommScope/faq/KHQ065u7 (This link if provided for information/ educational purposes only.) Chlamydia trachomatis RNA, TMA, Urogenital NOT DETECTED NOT DETECTED [facility] [place] [facility] Neisseria gonorrhoeae RNA, TMA, Urogenital NOT DETECTED NOT DETECTED [facility] [place] [facility] (Always Message) [facility] [place] [facility] Comment: The analytical performance characteristics of this assay, when used to test SurePath(TM) specimens have been determined by [facility]. The modifications have not been cleared or approved by the FDA. This assay has been validated pursuant to the CLIA regulations and is used for clinical purposes. For additional information, please refer to https://[employer].CommScope/faq/JNY027 (This link is being provided for information/ educational purposes only.) Trichomonas vaginalis, QL, TMA, PAP Vial NOT DETECTED NOT DETECTED [facility] [place] [facility] Comment: The analytical performance characteristics of this assay have been determined by [facility]. The modifications have not been cleared or approved by the FDA. This assay has been validated pursuant to the CLIA regulations and is used for clinical purposes. For additional information, please refer to http://[employer].CommScope/ faq/Trichomonastma (This link is being provided for information/ educational purposes only.) 04/08/2022 4:21 PM EST 04/09/2022 11:04 AM EST Narrative [facility] - 04/14/2022 10:42 AM EST FASTING: UNKNOWN Pola MANN LAB PATHOLOGY ORDERABLES Final Result Performing Organization Address City/[facility]/ZIP Co de Phone Number [facility] [address] [facility], 3rd Fl, [place] [address] [facility] [address] [facility], (Nl2) [place] [address] * HEPATITIS C AB W/REFL TO HCV RNA, QN, PCR (12/12/2020 10:12 AM EDT) HEPATITIS C ANTIBODY NON-REACT COLE NON-REACT COLE [facility] INDEX 0.09 <1.00 [facility] Comment: ?? HCV antibody was non-reactive. There is no laboratory ?? evidence of HCV infection. ?? In most cases, no further action is required. However, if recent HCV exposure is suspected, a test for HCV RNA (test code 43616) is suggested. ?? For additional information please refer to http://[employer].CommScope/faq/GZD31o3 (This link is being provided for informational/ educational purposes only.) ?? 12/12/2020 10:1 2 AM EDT us Hiren Garcia MD HISTORICAL/NON ORDERABLE LABS Fi nal Result [facility] [address] * HIV 1/2 ANTIGEN/ANTIBODY,FOURTH GENERATION W/RFL [...] ? For additional information please refer to http://education.CommScope/faq/GOM416 (This link is being provided for informational/ educational purposes only.) ? The performance of this assay has not been clinically validated in patients less than 2 years old. ?? 12/12/2020 10:1 2 AM EDT us Hiren Garcia MD LAB BLOOD ORDERABLES Final Resul t Performing Organization Address City/State/[facility] Co de Phone Number [facility] [address] from Last 3 Months or Most Recently Relevant to Health Maintenance Insurance C[facility] [place]ICAID [place] [address] [place] [address] Care Teams General Expeditor Relationship Specialty Start Date End Date Jackie Abdi MD [address] [place] [address] PCP - General Family Medicine 04/29/13
--- OUTSIDE RECORDS SUMMARY | 2024-06-06 10:24 | XMS_ITS | Encounter Summary ---
Author Organization [employer] Address 75 [facility] 7t [place] [address] Care Team Providers Care Buckler And Lacer Name Role Phone Jackie Abdi MD Primary Care Provider [phone] Reason for Visit * Reason Comments Med Refill Encounter Details Date Type Department Care Team ([facility] st Contact Info) Description 05/08/2024 Refill [facility] [address] [place] [address] Jackie Abdi MD [address] [place] [address] Acute pain of right shoulder Social History [...] Description 06/21/2024 10:00 AM EDT Office Visit [facility] [address] [place] [address] Jackie Abdi MD 505 [place] [address] documented as of this encounter Visit Diagnoses Diagnosis Acute pain of right shoulder documented in this encounter Additional Health Concerns Assessment Noted Time PHQ-9 Depression Total Score: 14 025 11:23 AM EST documented as of this encounter Care Teams Buckler And Lacer Relationship Specialty Start Date End Date Jackie Abdi MD [address] [place] [address] PCP - General Family Medicine 04/29/13 documented as of this encounter
--- OUTSIDE RECORDS SUMMARY | 2024-06-06 10:24 | XMS_ITS | Encounter Summary ---
Author Organization [employer] Address 75 [facility] 7t [place] [address] Care Team Providers Care Radiology Services Manager Name Role Phone Jackie Adbi MD Primary Care Provider [phone] Reason for Visit * Reason Onset Date Comments Results 08/04/2023 Encounter Details Date Type Department Care Team ([facility] Contact Info) Description 08/04/2023 Telephone [facility] [address] [place], [place] [phone] Jackie Abdi MD 505 [place] [address] Results Social History Tobacco Use Types Packs/Day [...] labs. Pt stated these were done by [facility] and that they diagnosed pt with [...] and culture Date when done: 08/02 Facility: [facility] Please contact pt at [phone] documented in this encounter Plan of Treatment Upcoming Encounters Date Type Department Care Team (Late st Contact Info) Description 06/21/2024 10:00 AM EDT Office Visit [facility] [address] [place] [address] Jackie Abdi MD [address] [place] [address] documented as of this encounter Visit Diagnoses Not on filedocumented in this encounter Additional Health Concerns Assessment Noted Time PHQ-9 Depression Total Score: 21 06/26/ 023 8:57 AM EDT documented as of this encounter Care Teams Radiology Services Manager Relationship Specialty Start Date End Date Jackie Abdi MD [address] [place] [address] PCP - General Family Medicine 04/29/13 documented as of this encounter
== END 2024-06-03 09:35 | disposition home or self-care (01) ==
LOC: HO.HOSX 09:34
PROVIDERS: Visit Provider Physician Assistant
DX: M19.011 Primary osteoarthritis, right shoulder (principal); M75.81 Other shoulder lesions, right shoulder; M25.511 Pain in right shoulder
CPT/HCPCS: 20610; 73030; 99212; J1010; J2003

== ENCOUNTER 2024-06-03 09:39 | Outpatient (REF) | payer MEDICAID, SELFPAY ==
--- OUTSIDE RECORDS SUMMARY | 2024-06-03 10:30 | XMS_ITS | Encounter Summary ---
Author Organization [employer] Address [address] [facility] 7t [place] [address] Care Team Providers Care Network Security Officer Name Role Phone Jackie Abdi MD Primary Care Provider Reason for Visit * Reason Comments Med Refill Encounter Details Date Type Department Care Team (Late Contact Info) Description 09/18/[address] [facility] CHC MED & PEDS [address] [place], [place] [phone] Ronnell Sanderson MD 505 [place] [address] Mid-back pain, acute Social History Tobacco Use [...] AM EDT Office Visit [facility] CHC MED & PEDS [address] [place] [address] Jackie Abdi MD [address] [place] [address] documented as of this encounter Visit Diagnoses Diagnosis Mid-back pain, acute documented in this encounter Additional Health Concerns Assessment Noted Time PHQ-9 Depression Total Score: 21 023 8:57 AM EDT documented as of this encounter Care Teams Network Security Officer Relationship Specialty Start Date End Date Jackie Abdi MD [address] [place] [address] PCP - General Family Medicine 04/29/13 documented as of this encounter
--- OUTSIDE RECORDS SUMMARY | 2024-06-03 10:30 | XMS_ITS | Clinical Summary ---
Author Organization [facility] Address [address] [place] [address] Care Team Providers Care Pipe Insulator Helper Name Role Phone Jackie Abdi MD Primary Care Provider [phone] Allergies No known active allergies Medications omeprazole [...] [place] Care Teams Pipe Insulator Helper Relationship Specialty Start Date End Date Jackie Abdi MD [address] [place] [address] PCP - General 04/09/20
--- OUTSIDE RECORDS SUMMARY | 2024-06-03 10:30 | XMS_ITS | Encounter Summary ---
Author Organization [employer] Address [address] [facility] 7t [place] [address] Care Team Providers Care Manufacturing Management Associate Name Role Phone Jackie Abdi MD Primary Care Provider [phone] Reason for Visit * Reason Comments Med Refill Encounter Details Date Type Department Care Team ([facility] st Contact Info) Description 09/16/2023 Refill [facility] CHC MED & PEDS [address] [place], [place] [phone] Jackie Abdi MD [address] [place] [address] Acute pain of right shoulder Social History [...] [facility] [address] [place] [address] Jackie Abdi MD [address] [place] [address] documented as of this encounter Visit Diagnoses Diagnosis Acute pain of right shoulder documented in this encounter Additional Health Concerns Assessment Noted Time PHQ-9 Depression Total Score: 21 023 8:57 AM EDT documented as of this encounter Care Teams Manufacturing Management Associate Relationship Specialty Start Date End Date Jackie Abdi MD [address] [place] [address] PCP - General Family Medicine 04/29/13 documented as of this encounter
--- OUTSIDE RECORDS SUMMARY | 2024-06-03 10:30 | XMS_ITS | Clinical Summary ---
Author Organization [address] [place] [address] [place] [phone] Phone Care Team Providers Care Law Reporter Name Role Phone Jackie Abdi MD Primary Care Provider [phone] Allergies No known active allergies Medications cholecalciferol [...] Date Site/Laterality Comments OTHER SURGICAL HISTORY PROCEDURE: [place] ARTHRS AID TIBIAL FRACTURE PROXIMAL UNICONDYLAR CHOLECYSTECTOMY PROCEDURE: [place] LAPAROSCOPY SURG CHOLECYSTECTOMY BUNIONECTOMY PROCEDURE: BUNION SURGERY, SIMPLE REMOVAL SECTION PROCEDURE: [place] DELIVERY ONLY Medical History Medical History Date Comments Hypercholesteremia DX:Hyperchole steremia Class 2 severe obesity due t o excess calories with serious comorbidity and body mass index (BMI) of 35.0 to 35.9 in adult ([facility]) 05/03/2020 DX:Class 2 severe obesity du e to excess calories with serious comorbidity and body mass index (BMI) of 35.0 to 35.9 in adult ([facility]) Gastroesophageal reflux dise ase with esophagitis without [...] 2:40 PM EST Office Visit Gastroenterology - [place] [address] [facility] [address] [place] [address] Artis Leyva PA [address] [facility] [address] [place] [address] 06/16/2024 3:45 PM EDT Office Visit Bariatric Surgery - [place] [address] [facility] [address] [place] [address] Aleksandar Heaton MD 175 [facility] [address] [place] [address] Health Maintenance Due Date Last Done Comments [...] Results * Hepatitis C Screening (09/22/2023) Pathologist [facility] Hepatitis C Screening abstracted Historical Provider HEALTH [...] Relevant to Health Maintenance Insurance MEDICAID - [place] Care Teams Law Reporter Relationship Specialty Start Date End Date Jackie Abdi MD [address] [place] [phone] PCP - General 10/20/16
--- OUTSIDE RECORDS SUMMARY | 2024-06-03 10:30 | XMS_ITS | Encounter Summary ---
Author Organization [employer] Address [address] [place] [address] 7[address] [place] [address] Care Team Providers Care Smart Energy Specialist Name Role Phone Jackie Abdi MD Primary Care Provider [phone] Encounter Details Date Type Department Care Team (Late st Contact Info) Description 10/01/2022 Abstract [facility] MEDICINE [address] [place] [address] Jackie Abdi MD [address] [place] [address] Social History Tobacco Use Types Packs/Day Years [...] Description 06/21/2024 10:00 AM EDT Office Visit [facility] CHC MED & PEDS [address] [place] [address] Jackie Abdi MD [address] [place] [address] documented as of this encounter Visit Diagnoses Not on filedocumented in this encounter Additional Health Concerns Assessment Noted Time PHQ-9 Depression Total Score: 21 023 8:57 AM EDT documented as of this encounter Care Teams Smart Energy Specialist Relationship Specialty Start Date End Date Jackie Abdi MD [address] [place] [address] PCP - General Family Medicine 04/29/13 documented as of this encounter
--- OUTSIDE RECORDS SUMMARY | 2024-06-03 10:30 | XMS_ITS | Encounter Summary ---
Author Organization [employer] Address [address] [facility] 7t [place] [address] Care Team Providers Care Stack Matcher Name Role Phone Jackie Abdi MD Primary Care Provider [phone] Encounter Details Date Type Department Care Team (Late Contact Info) Description 08/28/2022 Orders Only [facility] MED & PEDS [address] [place], [place] [phone] Ronnell Sanderson MD [address] [place] [address] Social History Tobacco Use Types Packs/Day Years [...] Description 06/21/2024 10:00 AM EDT Office Visit [facility] MED & PEDS [address] [place] [address] Jackie Abdi MD [address] [place] [address] documented as of this encounter Visit Diagnoses Not on filedocumented in this encounter Additional Health Concerns Assessment Noted Time PHQ-9 Depression Total Score: 21 023 8:57 AM EDT documented as of this encounter Care Teams Stack Matcher Relationship Specialty Start Date End Date Jackie Abdi MD [address] [place] [address] PCP - General Family Medicine 04/29/13 documented as of this encounter
--- OUTSIDE RECORDS SUMMARY | 2024-06-03 10:30 | XMS_ITS | Encounter Summary ---
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 Encounter Details Date Type Department Care Team (Late st Contact Info) Description 09/09/2023 Telephone [facility] CHC ADULT DENTAL [address] [place] [address] Sharon Fernandez DMD stone polisher Social History Tobacco Use Types Packs/Day Years [...] t he electric, gas, oil or water [employer] threatened to shut off services in [...] Patient called in stating hat [facility] [...] Description 06/21/2024 10:00 AM EDT Office Visit [facility] CHC MED & PEDS [address] [place] [address] Jackie Abdi MD [address] [place] [address] documented as of this encounter Visit Diagnoses Not on filedocumented in this encounter Additional Health Concerns Assessment Noted Time PHQ-9 Depression Total Score: 21 023 8:57 AM EDT documented as of this encounter Care Teams Supervisor Word Processing Relationship Specialty Start Date End Date Jackie Abdi MD [address] [place] [phone] PCP - General Family Medicine 04/29/13 documented as of this encounter
--- OUTSIDE RECORDS SUMMARY | 2024-06-03 10:31 | XMS_ITS | Encounter Summary ---
Author Organization [employer] Address [address] [facility] 7t [place] [address] Care Team Providers Care Business Account Leader Name Role Phone Jackie Abdi MD Primary Care Provider [phone] Reason for Visit * Reason Comments Med Refill Encounter Details Date Type Department Care Team ([facility] st Contact Info) Description 10/23/2023 Refill [facility] CHC MED & PEDS [address] [place], [place] [phone] Jackie Abdi MD [address] [place] [address] Social History Tobacco Use Types Packs/Day Years [...] Description 06/21/2024 10:00 AM EDT Office Visit [facility] MED & PEDS [address] [place] [address] Jackie Abdi MD [address] [place] [address] documented as of this encounter Visit Diagnoses Not on filedocumented in this encounter Additional Health Concerns Assessment Noted Time PHQ-9 Depression Total Score: 21 023 8:57 AM EDT documented as of this encounter Care Teams Business Account Leader Relationship Specialty Start Date End Date Jackie Abdi MD [address] [place] [phone] PCP - General Family Medicine 04/29/13 documented as of this encounter
--- OUTSIDE RECORDS SUMMARY | 2024-06-03 10:31 | XMS_ITS | Encounter Summary ---
Author Organization [employer] Address [address] [facility] 7t [place] [address] Care Team Providers Care Diagrammer Name Role Phone Jackie Abdi MD Primary Care Provider [phone] Reason for Visit * Reason Onset Date Comments Results 08/04/2023 Encounter Details Date Type Department [facility] Team ([facility] Description 08/04/2023 Telephone [facility] MED & PEDS 505 [place], [place] [phone] Jackie Abdi MD 505 [place] [address] Results Social History Tobacco Use Types Packs/Day [...] labs. Pt stated these were done by [facility] and that [...] and culture Date when done: 08/02 Facility: [facility] Please contact pt at [phone] documented in this encounter Plan of Treatment Upcoming Encounters Date Type Department Care Team (Late st Contact Info) Description 06/21/2024 10:00 AM EDT Office Visit [facility] MED & PEDS [address] [place] [address] Jackie Abdi MD [address] [place] [address] documented as of this encounter Visit Diagnoses Not on filedocumented in this encounter Additional Health Concerns Assessment Noted Time PHQ-9 Depression Total Score: 21 06/26/ 023 8:57 AM EDT documented as of this encounter Care Teams Diagrammer Relationship Specialty Start Date End Date Jackie Abdi MD [address] [place] [address] PCP - General Family Medicine 04/29/13 documented as of this encounter
--- OUTSIDE RECORDS SUMMARY | 2024-06-03 10:31 | XMS_ITS | Encounter Summary ---
Author Organization [employer] Address [address] [facility] 7t [place] [address] Care Team Providers Care Acidizer Name Role Phone Jackie Abdi MD Primary Care Provider [phone] Reason for Visit * Reason Comments Med Refill Encounter Details Date Type Department Care Team ([facility] st Contact Info) Description 06/08/2023 Refill [facility] MEDICINE 230 [place] [address] Jackie Abdi MD [address] [place] [address] Depressed mood Social History Tobacco Use Types [...] 10:00 AM EDT Office Visit [facility] MED & PEDS 505 [place] [address] Jackie Abdi MD 505 [place] [address] documented as of this encounter Visit Diagnoses Diagnosis Depressed mood documented in this encounter Additional Health Concerns Assessment Noted Time PHQ-9 Depression Total Score: 21 023 8:57 AM EDT documented as of this encounter Care Teams Acidizer Relationship Specialty Start Date End Date Jackie Abdi MD [address] [place] [address] PCP - General Family Medicine 04/29/13 documented as of this encounter
--- OUTSIDE RECORDS SUMMARY | 2024-06-03 10:31 | XMS_ITS | Encounter Summary ---
Author Organization [employer] Address [address] [facility] 7t [place] [address] Care Team Providers Care Information Resources Director Name Role Phone Jackie Abdi MD Primary Care Provider Reason for Visit * Reason Onset Date Comments Nurse Triage 08/03/2023 Encounter Details Date Type Department Care Team ([facility] st Contact Info) Description 08/03/2023 Telephone [facility] MEDICINE 230 [place] [address] Jackie Abdi MD [address] [place] [address] Nurse Triage Social History Tobacco Use Types [...] point. pt states is currently at the [facility] for [place]. advised to complete the [...] [facility] MED & PEDS 505 [place] [address] Jackie Abdi MD 505 [place] [address] documented as of this encounter Visit Diagnoses Not on filedocumented in this encounter Additional Health Concerns Assessment Noted Time PHQ-9 Depression Total Score: 21 06/26/ 023 8:57 AM EDT documented as of this encounter Care Teams Information Resources Director Relationship Specialty Start Date End Date Jackie Abdi MD [address] [place] [address] PCP - General Family Medicine 04/29/13 documented as of this encounter
--- OUTSIDE RECORDS SUMMARY | 2024-06-03 10:31 | XMS_ITS | Encounter Summary ---
Author Organization [employer] Address 75 [facility] 7t [place] [address] Care Team Providers Care Security Systems Engineer Name Role Phone Jackie Abdi MD Primary Care Provider [phone] Reason for Visit * Reason Onset Date Comments Results 04/30/2022 Encounter Details Date Type Department Care Team ([facility] Contact Info) Description 04/30/2022 Telephone [facility] MEDICINE 230 [place] [address] Jackie Abdi MD [address] [place] [address] Results Social History Tobacco Use Types Packs/Day [...] regarding xray results Please contact pt at [phone] documented in this encounter Plan of Treatment Upcoming Encounters Date Type Department Care Team (Late st Contact Info) Description 06/21/2024 10:00 AM EDT Office Visit [facility] MED & PEDS 505 [place] [address] Jackie Abdi MD 505 [place] [address] documented as of this encounter Visit Diagnoses Not on filedocumented in this encounter Care Teams Security Systems Engineer Relationship Specialty Start Date End Date Jackie Abdi MD [address] [place] [address] PCP - General Family Medicine 04/29/13 documented as of this encounter
--- OUTSIDE RECORDS SUMMARY | 2024-06-03 10:31 | XMS_ITS | Encounter Summary ---
Author Organization [facility] Address [address] [place] [address] 7 [place] [address] Care Team Providers Care Principal Solutions Architect Name Role Phone Jackie Abdi MD Primary Care Provider [phone] Reason for Visit * Reason Onset Date Comments Med Refill 12/05/2022 Encounter Details Date Type Department Care Team (Late st Contact Info) Description 12/05/2022 Refill [facility] MED & PEDS 505 [place] [address] Abby Duran MD Social History Tobacco Use [...] [facility] 505 [place] [address] Jackie Abdi MD 505 [place] [address] documented as of this encounter Visit Diagnoses Not on filedocumented in this encounter Additional Health Concerns Assessment Noted Time PHQ-9 Depression Total Score: 21 023 8:57 AM EDT documented as of this encounter Care Teams Principal Solutions Architect Relationship Specialty Start Date End Date Jackie Abdi MD 230 [place] [address] PCP - General Family Medicine 04/29/13 documented as of this encounter
--- OUTSIDE RECORDS SUMMARY | 2024-06-03 10:31 | XMS_ITS | Encounter Summary ---
Author Organization [employer] Address 75 [facility] 7t [place] [address] Care Team Providers Care Price Economist Name Role Phone Jackie Abdi MD Primary Care Provider [phone] Reason for Visit * Reason Comments Med Refill Encounter Details Date Type Department Care Team ([facility] st Contact Info) Description 06/01/2024 Refill [facility] MEDICINE 230 [place] [address] Jackie Abdi MD [address] [place] [address] Acute pain of right shoulder Social History [...] 06/21/2024 10:00 AM EDT Office Visit [facility] MED & PEDS 505 [place] [address] Jackie Abdi MD 505 [place] [address] documented as of this encounter Visit Diagnoses Diagnosis Acute pain of right shoulder documented in this encounter Additional Health Concerns Assessment Noted Time PHQ-9 Depression Total Score: 14 025 11:23 AM EST documented as of this encounter Care Teams Price Economist Relationship Specialty Start Date End Date Jackie Abdi MD [address] [place] [address] PCP - General Family Medicine 04/29/13 documented as of this encounter
--- OUTSIDE RECORDS SUMMARY | 2024-06-03 10:31 | XMS_ITS | Encounter Summary ---
Author Organization [employer] Address 75 [facility] 7t [place] [address] Care Team Providers Care Sole Layer Name Role Phone Jackie Abdi MD Primary Care Provider [phone] Reason for Visit * Reason Comments Med Refill Encounter Details Date Type Department Care Team ([facility] st Contact Info) Description 05/08/2024 Refill [facility] MEDICINE 230 [place] [address] Jackie Abdi MD [address] [place] [address] Acute pain of right shoulder Social History [...] [facility] MED & PEDS 505 [place] [address] Jackie Abdi MD 505 [place] [address] documented as of this encounter Visit Diagnoses Diagnosis Acute pain of right shoulder documented in this encounter Additional Health Concerns Assessment Noted Time PHQ-9 Depression Total Score: 14 025 11:23 AM EST documented as of this encounter Care Teams Sole Layer Relationship Specialty Start Date End Date Jackie Abdi MD [address] [place] [address] PCP - General Family Medicine 04/29/13 documented as of this encounter
--- OUTSIDE RECORDS SUMMARY | 2024-06-03 10:31 | XMS_ITS | Encounter Summary ---
Author Organization [employer] Address 75 [facility] 7t [place] [address] Care Team Providers Care Facility Practice Specialist Name Role Phone Jackie Abdi MD Primary Care Provider [phone] Reason for Visit * Reason Onset Date Comments Appt materials 01/21/2023 Encounter Details Date Type Department Care Team (Late st Contact Info) Description 01/21/2023 Telephone [facility] [address] [place] [address] Sharon Fernandez DMD Appt materials Social History [...] t he electric, gas, oil or water [employer] threatened to shut off services in your [...] Description 06/21/2024 10:00 AM EDT Office Visit [facility] CHC MED & PEDS 505 [place] [address] Jackie Abdi MD 505 [place] [address] documented as of this encounter Visit Diagnoses Not on filedocumented in this encounter Additional Health Concerns Assessment Noted Time PHQ-9 Depression Total Score: 21 023 8:57 AM EDT documented as of this encounter Care Teams Facility Practice Specialist Relationship Specialty Start Date End Date Jackie Abdi MD [address] [place] [address] PCP - General Family Medicine 04/29/13 documented as of this encounter
--- OUTSIDE RECORDS SUMMARY | 2024-06-03 10:31 | XMS_ITS | Encounter Summary ---
Author Organization [employer] Address 75 [facility] 7t [place] [address] Care Team Providers Care Panel Gluer Name Role Phone Jackie Abdi MD Primary Care Provider [phone] Reason for Visit * Reason Onset Date Comments Med Refill 11/13/2023 Encounter Details Date Type Department Care Team (Late st Contact Info) Description 11/13/2023 Refill [facility] MEDICINE 230 [place] [address] Jackie Abdi MD [address] [place] [address] Social History Tobacco Use Types Packs/Day Years [...] [facility] 505 [place] [address] Jackie Abdi MD 505 [place] [address] documented as of this encounter Visit Diagnoses Not on filedocumented in this encounter Additional Health Concerns Assessment Noted Time PHQ-9 Depression Total Score: 21 023 8:57 AM EDT documented as of this encounter Care Teams Panel Gluer Relationship Specialty Start Date End Date Jackie Abdi MD 230 [place] [address] PCP - General Family Medicine 04/29/13 documented as of this encounter
--- OUTSIDE RECORDS SUMMARY | 2024-06-03 10:31 | XMS_ITS | Encounter Summary ---
Author Organization [employer] Address 75 [facility] 7t [place] [address] Care Team Providers Care Piano Builder Name Role Phone Jackie Abdi MD Primary Care Provider [phone] Encounter Details Date Type Department Care Team ([facility] st Contact Info) Description 03/11/2023 Abstract [facility] 230 [place] [address] Jackie Abdi MD [address] [place] [address] Social History Tobacco Use Types Packs/Day Years [...] 06/21/2024 10:00 AM EDT Office Visit [facility] MED & PEDS 505 [place] [address] Jackie Abdi MD 505 [place] [address] documented as of this encounter Visit Diagnoses Not on filedocumented in this encounter Additional Health Concerns Assessment Noted Time PHQ-9 Depression Total Score: 21 023 8:57 AM EDT documented as of this encounter Care Teams Piano Builder Relationship Specialty Start Date End Date Jackie Abdi MD [address] [place] [address] PCP - General Family Medicine 04/29/13 documented as of this encounter
--- OUTSIDE RECORDS SUMMARY | 2024-06-03 10:31 | XMS_ITS | Encounter Summary ---
Author Organization [employer] Address [address] [facility] [address] 7t [place] [address] Care Team Providers Care Benefits Technician Name Role Phone Jackie Abdi MD Primary Care Provider Encounter Details Date Type Department Care Team (Late st Contact Info) Description 12/07/2023 Orders Only [facility] [address] [place] [address] [phone] Hiren Garcia MD 230 [place], [place] [phone] Social History Tobacco Use Types Packs/Day Years [...] t he electric, gas, oil or water [employer] threatened to shut off services in your [...] Description 06/21/2024 10:00 AM EDT Office Visit [facility] CHC MED & PEDS [address] [place] [address] Jackie Abdi MD [address] [place] [address] documented as of this encounter Procedures Procedure Name Priority Date/Time Associated Diagnosis Comments STRESS TEST WITH MYOCARDIAL PERFUSION Routine 01/01/2024 9:09 AM EDT documented in this encounter Results * Stress test with myocardial perfusion (01/01/2024 9:09 AM EDT) 01/01/2024 9:09 AM EDT Narrative [facility] - 01/04/2024 4:19 PM EDT ? [facility] ?[address] ?[place] [address] ?Nuclear Medicine Report ? Signed ? Patient: Philly,Sade ?MR#: [id number] ?? 4 ? : 1970 ?Acct:[id number] ? Age/Sex: 53 / F ?ADM Date: 10/04/24 ? Loc: HO.CARD ? Attending Rod Ricketts MD ? Ordering Physician: Abdelrahman Ricketts MD ?? Date of Service: 01/01/24 ?? Procedure(s): NM cardiolite stress test ?? Accession Number(s): [id number] ? cc: Jackie Abdi MD; Abdelrahman Ricketts [...] DD/ 0909 ? TD/TT: 01/04/24 1200 ? Milk Sampler: ? Procedure Note Kaylyn Barnes - 01/04/[address] [place] [address] Nuclear Medicine Report Signed Patient: Gray Fraga#: [id number] 4 : 1970Acct:[id number] Age/Sex: 53 / FADM Date: 01/01/24 Loc: .[facility] Attending Dr: Abdelrahman Ricketts MD Ordering Physician: Abdelrahman Ricketts MD Date of Service: 01/01/24 Procedure(s): NM cardiolite stress test Accession Number(s): [id number] cc: Jackie Abdi MD; Abdelrahman Ricketts MD [...] 01/04/24 1616 DD/ 0909 TD/TT: 01/04/24 1200 Milk Sampler: [facility] External Provider CV STRE SS PROCEDURES Final Result [facility] [address] [place] [address] documented in this encounter Visit Diagnoses Not on filedocumented in this encounter Additional Health Concerns Assessment Noted Time PHQ-9 Depression Total Score: 21 023 8:57 AM EDT documented as of this encounter Care Teams Benefits Technician Relationship Specialty Start Date End Date Jackie Abdi MD [address] [place] [address] PCP - General Family Medicine 04/29/13 documented as of this encounter
--- OUTSIDE RECORDS SUMMARY | 2024-06-03 10:31 | XMS_ITS | Encounter Summary ---
Author Organization [employer] Address [address] [facility] 7t [place] [address] Care Team Providers Care Wedding Makeup Artist Name Role Phone Jackie Abdi MD Primary Care Provider [phone] Encounter Details Date Type Department Care Team (Late st Contact Info) Description 12/08/2022 Telephone [facility] CHC MED & PEDS 505 [place], [place] [phone] Jackie Abdi MD 505 [place] [address] Social History Tobacco Use Types Packs/Day Years [...] Description 06/21/2024 10:00 AM EDT Office Visit [facility] CHC MED & PEDS [address] [place] [address] Jackie Abdi MD [address] [place] [address] documented as of this encounter Visit Diagnoses Not on filedocumented in this encounter Additional Health Concerns Assessment Noted Time PHQ-9 Depression Total Score: 21 023 8:57 AM EDT documented as of this encounter Care Teams Wedding Makeup Artist Relationship Specialty Start Date End Date Jackie Abdi MD [address] [place] [address] PCP - General Family Medicine 04/29/13 documented as of this encounter
--- OUTSIDE RECORDS SUMMARY | 2024-06-03 10:31 | XMS_ITS | Encounter Summary ---
Author Organization [employer] [facility] Address [address] [place] [address] [address] [address] Care Team Providers Care Home Health Physical Therapist Name Role Phone Jackie Abdi MD Primary Care Provider [phone] Encounter Details Date Type Department Care Team (Late st Contact Info) Description 03/18/2022 Orders Only [facility] MED & PEDS 505 [place] [address] Marielos Hooks LPN Social History Tobacco Use [...] [facility] 505 [place] [address] Jackie Abdi MD 505 [place] [address] documented as of this encounter Visit Diagnoses Not on filedocumented in this encounter Care Teams Home Health Physical Therapist Relationship Specialty Start Date End Date Jackie Abdi MD [address] [place] [address] PCP - General Family Medicine 04/29/13 documented as of this encounter
--- OUTSIDE RECORDS SUMMARY | 2024-06-03 10:31 | XMS_ITS | Encounter Summary ---
Author Organization [employer] Address 75 [facility] 7t [place] [address] Care Team Providers Care Coin Collector Name Role Phone Jackie Abdi MD Primary Care Provider [phone] Encounter Details Date Type Department Care Team (Late Contact Info) Description 06/03/2022 Orders Only [facility] CHC MED & PEDS 505 [place] [address] Kaylin Kaur MD 505 [place] [address] Mid-back pain, acute (Primary Dx) Social History [...] AM EDT Office Visit [facility] MED & PEDS 505 [place], [place] [phone] Jackie Abdi MD [address] [place] [address] documented as of this encounter Visit Diagnoses Diagnosis Mid-back pain, acute- Primary documented in this encounter Care Teams Coin Collector Relationship Specialty Start Date End Date Jackie Abdi MD [address] [place] [address] PCP - General Family Medicine 04/29/13 documented as of this encounter
--- OUTSIDE RECORDS SUMMARY | 2024-06-03 10:31 | XMS_ITS | Encounter Summary ---
Author Organization [employer] Address 75 [facility] 7t [place] [address] Care Team Providers Care Landscape Crew Leader Name Role Phone Jackie Abdi MD Primary Care Provider [phone] Reason for Visit * Reason Comments Med Refill Encounter Details Date Type Department Care Team ([facility] st Contact Info) Description 09/01/[address] [facility] CHC MED & PEDS 505 [place], [place] [phone] Ronnell Sanderson MD 505 [place] [address] Acute pain of right shoulder Social History [...] 06/21/2024 10:00 AM EDT Office Visit [facility] MED & PEDS 505 [place] [address] Jackie Abdi MD 505 [place] [address] documented as of this encounter Visit Diagnoses Diagnosis Acute pain of right shoulder documented in this encounter Additional Health Concerns Assessment Noted Time PHQ-9 Depression Total Score: 21 023 8:57 AM EDT documented as of this encounter Care Teams Landscape Crew Leader Relationship Specialty Start Date End Date Jackie Abdi MD [address] [place] [address] PCP - General Family Medicine 04/29/13 documented as of this encounter
--- OUTSIDE RECORDS SUMMARY | 2024-06-03 10:31 | XMS_ITS | Encounter Summary ---
Author Organization [employer] Address 75 [facility] 7t [place] [address] Care Team Providers Care Net Mender Name Role Phone Jackie bAdi MD Primary Care Provider [phone] Reason for Visit * Reason Onset Date Comments Med Refill 02/26/2023 Encounter Details Date Type Department Care Team (Late st Contact Info) Description 02/26/2023 Refill [facility] CH[facility] MED & PEDS 505 [place] [address] Jackie Abdi MD 505 [place] [address] Social History Tobacco Use Types Packs/Day Years [...] Description 06/21/2024 10:00 AM EDT Office Visit [facility] MED & PEDS 505 [place] [address] Jackie Abdi MD 505 [place] [address] documented as of this encounter Visit Diagnoses Not on filedocumented in this encounter Additional Health Concerns Assessment Noted Time PHQ-9 Depression Total Score: 21 023 8:57 AM EDT documented as of this encounter Care Teams Net Mender Relationship Specialty Start Date End Date Jackie Abdi MD [address] [place] [address] PCP - General Family Medicine 04/29/13 documented as of this encounter
--- OUTSIDE RECORDS SUMMARY | 2024-06-03 10:31 | XMS_ITS | Clinical Summary ---
Author Organization [employer] Address [address] [facility] 7t [place] [address] Care Team Providers Care Drying Oven Tender Name Role Phone Jackie Abdi MD Primary Care Provider [phone] Allergies Active Allergy Reactions Criticality Noted Date Comments Sulfamethoxazole-Trimethoprim Angioedema 2023 Medications Multiple Vitamin (Multi-Vitamin) tablet Take 1 tablet by mouth at bed time. Active cholecalciferol (Vitamin D-3) 1.25 MG (26667 UT) capsule Take 1 capsule by mouth. [...] Type Department Care Team Description 06/01/2024 Refill [facility] MEDICINE [address] [place] [address] Jackie Abdi MD Acute pain of right shoulder 05/08/2024 Refill [facility] MEDICINE [address] [place] [address] Jackie Abdi MD Acute pain of right shoulder 04/26/2024 10:00 AM EST Office Visit [facility] WALK-IN CENTER [address] [place] [address] Hiren Garcia MD Chronic pain in right shoulder (Primary Dx); Acute bilateral ankle pain 04/22/2024 Orders Only [facility] MEDICINE [address] [place] [address] Pola Maldonado CNM 04/21/2024 2:00 PM EST Office Visit [address] [address] Pola Maldonado CNM Vaginal discharge (Primary Dx); Atrophic vaginitis; Pain in female genitalia on intercourse; Menopausal syndrome (hot flashes); Screening mammogram for breast cancer 04/21/2024 Outside Procedure [facility] OPTOMETRY [address] [place] [address] Deshawn Hernandezn, OD Presbyopia of both eyes (Primary Dx) 04/20/2024 Travel 04/19/2024 3:30 PM EST Office Visit [facility] OPTOMETRY [address] [place] [address] An Hernandez, OD Hyperopia of both eyes (Primary Dx) 04/19/2024 11:30 AM EST Telemedicine [facility] CHC MED & PEDS [address] [place], [place] [phone] Jackie Abdi MD Vaginal itching (Primary Dx); Pain in female genitalia on intercourse 04/19/2024 Travel 04/12/2024 Travel 04/08/2024 Telephone [facility] WALK[facility]IN [facility]ENTER [address] [place] [address] Jackie Abdi MD appt 04/01/2024 Refill [facility] MEDICINE [address] [place] [address] Jackie Abdi MD 03/25/2024 Orders Only [facility] External Provider, [facility] from Last 3 Months Immunizations Name [...] 10:00 AM EDT Office Visit [facility] MED & PEDS [address] [place] [address] Jackie Abdi MD [address] [place] [address] Health Maintenance Due Date Last Done Comments [...] EST Narrative 04/27/2024 9:35 AM EST ? [facility] ?[address] ?[place] [address] ? Ultrasound Report ? Signed ? Patient: Philly,Sade ?MR#: [id number] ?? 4 ? : 1970 ?Acct:[id number] ? Age/Sex: 54 / F ?ADM Date: 01/28/25 ? Loc: HO.US ? Attending Dr: Pola Maldonado CNM ? Ordering Physician: POLA MALDONADO CNM ?? Date of Service: 04/26/24 ?? Procedure(s): US pelvic and transvaginal ?? Accession Number(s): [id number] ? cc: Jackie Abdi MD; POLA MALDONADO [...] DD/ 1615 ? TD/TT: 04/26/24 1623 ? Material Yard Clerk: MSM ? Procedure Note Molly, Image - 04/27/[address] [address] Ultrasound Report Signed Patient: Sade FragaMR#: [id number] 4 : 1970Acct:[id number] Age/Sex: 54 / FADM Date: 04/26/24 Loc: HO.US Attending Dr: Pola Maldonado CNM Ordering Physician: POLA MALDONADO CNM Date of Service: 04/26/24 Procedure(s): US pelvic and transvaginal Accession Number(s): [id number] cc: Jackie Abdi MD; POLA MALDONADO CNM [...] 04/27/24 0932 DD/ 1615 TD/TT: 04/26/24 1623 Material Yard Clerk: BRAYDON us Pola Maldonado CNM IMG US [...] DETECTION BY PCR NOT DETECTED Not Detect [facility] BACTERIAL VAGINOSIS DETECTION BY PCR NEGATIVE Negative [facility] Comment:The BV organism targ ets [...] GROUP DETECTION BY PCR DETECTED(A) Not Detect [facility] Ofelia glab krusei PCR NOT DETECTED Not Detect [facility] Swab Vaginal structure / Unknown 04/21/2024 2:24 PM EST 04/21/2024 5:25 PM EST Pola MANN LAB MICROBIOLOGY - GENERA L ORDERABLES Final Result [facility] [address] [place] [phone] * US Retroperitoneal Complete (03/25/2024 10:07 AM EST) Anatomical Region Laterality Modality Ultrasound 03/25/2024 10:0 7 AM EST Narrative 04/08/2024 9:22 AM EST ? [facility] ?[address] ?[place] [address] ? Ultrasound Report ? Signed ? Patient: Philly,Sade ?MR#: [id number] ?? 4 ? : 1970 ?Acct:[id number] ? Age/Sex: 54 / F ?ADM Date: 03/25/24 ? Loc: HO.US ? Attending Dr: Sarah HARE ? Ordering Physician: Sarah Gomez ?? Date of Service: 03/25/24 ?? Procedure(s): US retroperitoneal comp ?? Accession Number(s): [id number] ? cc: Sarah Gomez; Jackie Abdi MD ? EXAMINATION: ?? US RETROPERITONEAL COMPLETE (RENAL) ? CLINICAL INFORMATION: ?? Urinary tract infection, site not specified. ? COMPARISON: ?? Ultrasound abdomen limited 10/22/2022. ? TECHNIQUE: ?? Real-time imaging of the kidneys and bladder. ? Exam submitted for review 04/08/2024 8:18 AM TOOL SETTER. ? FINDINGS: ? RIGHT KIDNEY: 9.7 x [...] DD/ 1007 ? TD/TT: 03/25/24 1020 ? Material Yard Clerk: ? Procedure Note Molly, Image - 04/08/2024 [place] [address] Ultrasound Report Signed Patient: Gray Fraga#: [id number] 4 : 1970Acct:[id number] Age/Sex: 54 / FADM Date: 03/25/24 Loc: HO.US Attending Dr: Sarah HARE Ordering Physician: Sarah Gomez Date of Service: 03/25/24 Procedure(s): US retroperitoneal comp Accession Number(s): [id number] cc: Sarah Gomez; Jackie Abdi MD EXAMINATION: US RETROPERITONEAL COMPLETE (RENAL) CLINICAL INFORMATION: Urinary tract infection, site not specified. COMPARISON: Ultrasound abdomen limited 10/22/2022. TECHNIQUE: Real-time imaging of the kidneys and bladder. Exam submitted for review 04/08/2024 8:18 AM TOOL SETTER. FINDINGS: RIGHT KIDNEY: 9.7 x 5.7 x [...] 04/08/24 0919 DD/ 1007 TD/TT: 03/25/24 1020 Material Yard Clerk: [facility] External Provider IMG US PROCEDURES Final Result * Cologuard?? colon cancer screening (02/23/2023 10:44 AM EST) Cologuard Result Negative Negative 03/01/20 23 3:14 PM EST [email or web address] (CLIA #:[id number]) Comment: NEGATIVE TEST RESULT. A negative Cologuard [...] cancer. ??Following a negative Cologuard result, the [place] Cancer Society and U.S. Multi-Society Task Force screening guidelines recommend a Cologuard re-screening interval of 3 years. References: [place] [employer] Guideline for Colorectal Cancer Screening: https://www.cancer.org/cancer/onksc-kgxryb-ckriui/jqgxregzz-cmbmilzug-kdbaywc/ac s-rec ommendations.html.; Bean DK, Mitchell CR, Dank WeberK, Colorectal Cancer Screening: Recommendations for Physicians and Patients from the U.S. Multi-Society Task Force on Colorectal Cancer Screening , Am J Gastroenterology 2017; 112:2310-8455. TEST DESCRIPTION: Composite algorithmic analysis of stool [...] (Javi Frank al, N Engl J Med 2014;370(14):5037-1186.) Cologuard may produce a false negative or false positive result (no colorectal cancer or precancerous polyp present at colonoscopy follow up). A negative Cologuard test result does not guarantee the absence of CRC or advanced adenoma (pre-cancer). The current Cologuard screening interval is every 3 years. ([place] [employer] Society and U.S. Multi-Society Task Force). Cologuard performance data in a 10,000 patient pivotal study using colonoscopy as the reference method can be accessed at the following location: www.[employer].Loteda/results. Additional description of the Cologuard test process, warnings and precautions can be found at www.[employer].com. Stool specimen (specimen) 02/23/2023 10:44 AM EST 02/24/2023 1:44 PM EST us Jackie Abdi MD LAB MOLECULAR DIAGNOSTICS ORDERA BLES Final Result [email or web address] (CLIA #:[id number]) [address] [place] [address], * Thinprep TIS PAP And HPV mRNA E6/E7, CT/NG, TRICH (04/08/2022 4:21 PM EST) Clinical Information: SCREENING, PELVIC PAIN [facility] LMP: NONE GIVEN [facility] Prev. PAP: NONE GIVEN [facility] Prev. BX: NONE GIVEN [facility] [facility] SOURCE: None given [facility] Statement Of Adequacy: [facility] Comment: Satisfactory for evaluation. Endocervical/transformation zone component present. Age and/or menstrual status not provided Interpretation/Re sult: Negative for intraepithelial lesion or malignancy. [facility] COMMENT: This Pap test has been evaluated with computer assisted technology. [facility] Central Service Tech: Jose [employer] Comment: DMM CT(ASCP) CT screening location: [address] ??[address] (Always Message) [facility] Comment: EXPLANATORY NOTE: The Pap is a [...] HPV nRNA E6/E7 Not Detected Not Detected [employer] Comment: Methodology: Investment Executive-Mediated Amplification This assay detects E6/E7 viral messenger RNA (mRNA) from 14 high-risk HPV types (16,18,31,33,35,39,45,51,52,56,58,59,66,68). Cervical sources are required for HPV testing. If a vaginal source from a patient who has had a total hysterectomy with removal of cervix was submitted, please contact the testing laboratory for alternative testing options. For additional information, please refer to http://[employer].Evino/faq/WYK787c8 (This link if provided for information/ educational purposes only.) Chlamydia trachomatis RNA, TMA, Urogenital NOT DETECTED NOT DETECTED [employer] Neisseria gonorrhoeae RNA, TMA, Urogenital NOT DETECTED NOT DETECTED [employer] (Always Message) Que [employer] Comment: The analytical performance characteristics of this assay, when used to test SurePath(TM) specimens have been determined by [employer] [employer]. The modifications have not been cleared or approved by the FDA. This assay has been validated pursuant to the CLIA regulations and is used for clinical purposes. For additional information, please refer to https://[employer]Peerio.Loteda/faq/TYB198 (This link is being provided for information/ educational purposes only.) Trichomonas vaginalis, QL, TMA, PAP Vial NOT DETECTED NOT DETECTED [employer] Comment: The analytical performance characteristics of this assay have been determined by [employer]. The modifications have not been cleared or approved by the FDA. This assay has been validated pursuant to the CLIA regulations and is used for clinical purposes. For additional information, please refer to http://[employer]Evino/ faq/Trichomonastma (This link is being provided for information/ educational purposes only.) 04/08/2022 4:21 PM EST 04/09/2022 11:04 AM EST Narrative [facility] - 04/14/2022 10:42 AM EST FASTING: UNKNOWN Pola Maldonado [facility] LAB PATHOLOGY ORDERABLES Final Result [facility] [address] [facility] [address] [place] [address] [facility] [address] [facility] [address], (Nl2) [place] [address] * HEPATITIS C AB W/REFL TO HCV RNA, QN, PCR (12/12/2020 10:12 AM EDT) HEPATITIS C ANTIBODY NON-REACT COLE NON-REACT COLE [facility] INDEX 0.09 <1.00 [facility] Comment: ?? HCV antibody was non-reactive. There is no laboratory ?? evidence of HCV infection. ?? In most cases, no further action is required. However, if recent HCV exposure is suspected, a test for HCV RNA (test code 33564) is suggested. ?? For additional information please refer to http://education.Evino/faq/XRR95m0 (This link is being provided for informational/ educational purposes only.) ?? 12/12/2020 10:1 2 AM EDT Hiren Garcia MD HISTORICAL/NON ORDERABLE LABS Fi nal Result [facility] [address] * HIV 1/2 ANTIGEN/ANTIBODY,FOURTH GENERATION W/RFL [...] ? For additional information please refer to http://[employer]Evino/faq/ZCY437 (This link is being provided for informational/ educational purposes only.) ? The performance of this assay has not been clinically validated in patients less than 2 years old. ?? 12/12/2020 10:1 2 AM EDT us Hiren Garcia MD LAB BLOOD ORDERABLES Final Resul t Performing Organization Address City/State/ZIP Co ny Phone Number [facility] Any[address] from Last 3 Months or Most Recently Relevant to Health Maintenance Insurance C[facility] [place] [address] Care Teams Drying Oven Tender Relationship Specialty Start Date End Date Jackie Abdi MD [address] [place] [address] PCP - General Family Medicine 04/29/13
--- OUTSIDE RECORDS SUMMARY | 2024-06-03 10:31 | XMS_ITS | Encounter Summary ---
Author Organization [employer] Address 75 [facility] 7t [place] [address] Care Team Providers Care Field Naturalist Name Role Phone Jackie Abdi MD Primary Care Provider [phone] Reason for Visit * Reason Onset Date Comments Referral 08/26/2023 Encounter Details Date Type Department Care Team ([facility] st Contact Info) Description 08/26/2023 Telephone [facility] MEDICINE [address] [place] [address] Jackie Abdi MD [address] [place] [address] Referral Social History Tobacco Use Types Packs/Day [...] EDT Tc from pt was advised by campus coordinator office to request new referral due not being seen until 2020. Address: [address] [place] [address] [address]rd [facility] [address] Facility Name: [facility]. Type of Specialist: Grab Jack Man Pt is also requesting referral for a urologist and or loom blower due to some recent concerns. (Ptwas triaged) If any questions please contact pt at [phone]. documented in this encounter Plan of Treatment Upcoming Encounters Date Type Department Care Team ([facility] st Contact Info) Description 06/21/2024 10:00 AM EDT Office Visit [facility] ED MED & PEDS [address] [place] [address] Jackie Abdi MD [address] [place] [address] documented as of this encounter Visit Diagnoses Not on filedocumented in this encounter Additional Health Concerns Assessment Noted Time PHQ-9 Depression Total Score: 21 023 8:57 AM EDT documented as of this encounter Care Teams Field Naturalist Relationship Specialty Start Date End Date Jackie Abdi MD [address] [place] [address] PCP - General Family Medicine 04/29/13 documented as of this encounter
--- OUTSIDE RECORDS SUMMARY | 2024-06-03 10:31 | XMS_ITS | Encounter Summary ---
Author Organization [employer] Address [address] [place] [address] [place], [place] [address] Care Team Providers Care Phone Operator Name Role Phone Jackie Abdi MD Primary Care Provider [phone] Reason for Visit * Reason Onset Date Comments Med Refill 12/08/2022 Encounter Details Date Type Department Care Team (Late st Contact Info) Description 12/08/2022 Refill [facility] MED & PEDS [address] [facility] [place] [address] Jackie Abdi MD [address] [place] [address] Social History Tobacco Use Types Packs/Day Years [...] [facility] MED & PEDS [address] [place] [address] Jackie Abdi MD [address] [place] [address] documented as of this encounter Visit Diagnoses Not on filedocumented in this encounter Additional Health Concerns Assessment Noted Time PHQ-9 Depression Total Score: 21 023 8:57 AM EDT documented as of this encounter Care Teams Phone Operator Relationship Specialty Start Date End Date Jackie Abdi MD [address] [place] [address] PCP - General Family Medicine 04/29/13 documented as of this encounter
--- OUTSIDE RECORDS SUMMARY | 2024-06-03 10:31 | XMS_ITS | Encounter Summary ---
Author Organization [employer] Address [address] [facility] 7t [place] [address] Care Team Providers Care News Editor Name Role Phone Jackie Abdi MD Primary Care Provider [phone] Reason for Visit * Reason Comments Med Refill Encounter Details Date Type Department Care Team ([facility] st Contact Info) Description 11/13/2023 Refill [facility] MEDICINE [address] [place] [address] Jackie Abdi MD [address] [place] [address] Social History Tobacco Use Types Packs/Day Years [...] Description 06/21/2024 10:00 AM EDT Office Visit [facility] CHC MED & PEDS [address] [place] [address] Jackie Abdi MD [address] [place] [address] documented as of this encounter Visit Diagnoses Not on filedocumented in this encounter Additional Health Concerns Assessment Noted Time PHQ-9 Depression Total Score: 21 023 8:57 AM EDT documented as of this encounter Care Teams News Editor Relationship Specialty Start Date End Date Jackie Abdi MD [address] [place] [address] PCP - General Family Medicine 04/29/13 documented as of this encounter
--- OUTSIDE RECORDS SUMMARY | 2024-06-03 10:31 | XMS_ITS | Encounter Summary ---
Author Organization [employer] Address 75 [facility] 7t [place] [address] Care Team Providers Care Private Branch Exchange Service Adviser Name Role Phone Jackie Abdi MD Primary Care Provider [phone] Reason for Visit * Reason Onset Date Comments call back 06/03/2022 Encounter Details Date Type Department Care Team ([facility] st Contact Info) Description 06/03/2022 Telephone [facility] MEDICINE [address] [place] [address] Jackie Abdi MD [address] [place] [address] call back Social History Tobacco Use Types [...] a call back. Please contact pt at [phone] documented in this encounter Plan of Treatment Upcoming Encounters Date Type Department Care Team ([facility] st Contact Info) Description 06/21/2024 10:00 AM EDT Office Visit [facility] MED & PEDS [address] [place] [address] Jackie Abdi MD [address] [place] [address] documented as of this encounter Visit Diagnoses Not on filedocumented in this encounter Care Teams Private Branch Exchange Service Adviser Relationship Specialty Start Date End Date Jackie Abdi MD [address] [place] [address] PCP - General Family Medicine 04/29/13 documented as of this encounter
--- OUTSIDE RECORDS SUMMARY | 2024-06-03 10:31 | XMS_ITS | Encounter Summary ---
Author Organization [employer] Address [address] [place] [address] 7 [place] [address] Care Team Providers Care Indirect Sales Exec Name Role Phone Jackie Abdi MD Primary Care Provider [phone] Reason for Visit * Reason Onset Date Comments Med Refill 10/24/2022 Encounter Details Date Type Department Care Team (Late st Contact Info) Description 10/24/2022 Refill [facility] MEDICINE [address] [place] [address] Jackie Abdi MD [address] [place] [address] Social History Tobacco Use Types Packs/Day Years [...] Description 06/21/2024 10:00 AM EDT Office Visit [facility] CHC MED & PEDS [address] [place], [place] [phone] Jackie Abdi MD [address] [place], [place] [phone] documented as of this encounter Visit Diagnoses Not on filedocumented in this encounter Additional Health Concerns Assessment Noted Time PHQ-9 Depression Total Score: 21 023 8:57 AM EDT documented as of this encounter Care Teams Indirect Sales Exec Relationship Specialty Start Date End Date Jackie Abdi MD [address] [place] [address] [place] [address] PCP - General Family Medicine 04/29/13 documented as of this encounter
== END 2024-06-03 09:40 | disposition home or self-care (01) ==
LOC: HO.MAMMO 09:39
PROVIDERS: PCP Student in an Organized Health Care Education/Training Program; Visit Provider Advanced Practice Midwife
DX: Z12.31 Encounter for screening mammogram for malignant neoplasm of breast (principal)
CPT/HCPCS: 77063; 77067

== ENCOUNTER → 2024-06-07 19:13 | Outpatient (BNV) | payer MEDICAID, SELFPAY | PROVIDERS: PCP Student in an Organized Health Care Education/Training Program; Visit Provider Radiology Diagnostic Radiology | DX: M75.121 Complete rotator cuff tear or rupture of right shoulder, not specified as traumatic (principal); M19.011 Primary osteoarthritis, right shoulder | CPT/HCPCS: 73221 ==

== ENCOUNTER 2024-06-07 19:14 | Outpatient (REF) | payer MEDICAID, SELFPAY ==
--- OUTSIDE RECORDS SUMMARY | 2024-06-07 19:39 | XMS_ITS | Encounter Summary ---
Author Organization [employer] Address [address] [facility] [address] 7t [place] [address] Care Team Providers Care Supervisor Instrument Maintenance Name Role Phone Jackie Abdi MD Primary Care Provider Encounter Details Date Type Department Care Team (Late st Contact Info) Description 12/07/2023 Orders Only [facility] [address] [place] [address] [phone] Hiren Garcia MD [address] [place], [place] [phone] Social History Tobacco Use Types Packs/Day Years [...] t he electric, gas, oil or water [employer] threatened to shut off services in your [...] 10:00 AM EDT Office Visit [facility] [address] [place] [address] Jackie Abdi MD [address] [place] [address] documented as of this encounter Procedures Procedure Name Priority Date/Time Associated Diagnosis Comments STRESS TEST WITH MYOCARDIAL PERFUSION Routine 01/01/2024 9:09 AM EDT documented in this encounter Results * Stress test with myocardial perfusion (01/01/2024 9:09 AM EDT) 01/01/2024 9:09 AM EDT Narrative [facility] - 01/04/2024 4:19 PM EDT ? [facility] ?[address] ?[place] [address] ?Nuclear Medicine Report ? Signed ? Patient: Philly,Sade ?MR#: [id number] ?? 4 ? : 1970 ?Acct:[id number] ? Age/Sex: 53 / F ?ADM Date: 10/04/24 ? Loc: HO.CARD ? Attending oRd Ricketts MD ? Ordering Physician: Abdelrahman Ricketts MD ?? Date of Service: 01/01/24 ?? Procedure(s): NM cardiolite stress test ?? Accession Number(s): [id number] ? cc: Jackie Abdi MD; Abdelrahman Ricketts [...] DD/ 0909 ? TD/TT: 01/04/24 1200 ? Cnc Set Up Operator: ? Procedure Note Kaylyn Barnes - 01/04/[address] [place] [address] Nuclear Medicine Report Signed Patient: Gray Fraga#: [id number] 4 : 1970Acct:[id number] Age/Sex: 53 / FADM Date: 01/01/24 Loc: .[facility] Attending Dr: Abdelrahman Ricketts MD Ordering Physician: Abdelrahman Ricketts MD Date of Service: 01/01/24 Procedure(s): NM cardiolite stress test Accession Number(s): [id number] cc: Jackie Abdi MD; Abdelrahman Ricketts MD [...] 01/04/24 1616 DD/ 0909 TD/TT: 01/04/24 1200 Cnc Set Up Operator: [facility] External Provider CV STRE SS PROCEDURES Final Result [facility] [address] [place] [address] documented in this encounter Visit Diagnoses Not on filedocumented in this encounter Additional Health Concerns Assessment Noted Time PHQ-9 Depression Total Score: 21 023 8:57 AM EDT documented as of this encounter Care Teams Supervisor Instrument Maintenance Relationship Specialty Start Date End Date Jackie Abdi MD [address] [place] [address] PCP - General Family Medicine 04/29/13 documented as of this encounter
--- OUTSIDE RECORDS SUMMARY | 2024-06-07 19:39 | XMS_ITS | Encounter Summary ---
Author Organization [employer] Address [address] [place] [address] [place], [place] [address] Care Team Providers Care Elementary Tutor Name Role Phone Jackie Abdi MD Primary Care Provider [phone] Reason for Visit * Reason Onset Date Comments Med Refill 12/08/2022 Encounter Details Date Type Department Care Team (Late st Contact Info) Description 12/08/2022 Refill [facility] [address] [facility] [place] [address] Jackie Abdi MD [address] [place] [address] Social History Tobacco Use Types Packs/Day Years [...] [facility] [address] [place] [address] Jackie Abdi MD [address] [place] [address] documented as of this encounter Visit Diagnoses Not on filedocumented in this encounter Additional Health Concerns Assessment Noted Time PHQ-9 Depression Total Score: 21 023 8:57 AM EDT documented as of this encounter Care Teams Elementary Tutor Relationship Specialty Start Date End Date Jackie Abdi MD [address] [place] [address] PCP - General Family Medicine 04/29/13 documented as of this encounter
--- OUTSIDE RECORDS SUMMARY | 2024-06-07 19:39 | XMS_ITS | Encounter Summary ---
Author Organization [employer] Address 75 [facility] 7t [place] [address] Care Team Providers Care Nursing Technician Name Role Phone Jackie Abdi MD Primary Care Provider [phone] Reason for Visit * Reason Onset Date Comments Appt materials 01/21/2023 Encounter Details Date Type Department Care Team (Late st Contact Info) Description 01/21/2023 Telephone [facility] [address] [place] [address] Sharon Fernandez DMD Appt materials Social History [...] t he electric, gas, oil or water [email or web address] threatened to shut off services in your [...] Description 06/21/2024 10:00 AM EDT Office Visit [facility] MED & PEDS 505 [place] [address] Jackie Abdi MD 505 [place] [address] documented as of this encounter Visit Diagnoses Not on filedocumented in this encounter Additional Health Concerns Assessment Noted Time PHQ-9 Depression Total Score: 21 023 8:57 AM EDT documented as of this encounter Care Teams Nursing Technician Relationship Specialty Start Date End Date Jackie Abdi MD [address] [place] [address] PCP - General Family Medicine 04/29/13 documented as of this encounter
--- OUTSIDE RECORDS SUMMARY | 2024-06-07 19:39 | XMS_ITS | Encounter Summary ---
Author Organization [employer] [facility] Address [address] [place] [address] 7 [place] [address] Care Team Providers Care Merchandise Manager Name Role Phone Jackie Abdi MD Primary Care Provider [phone] Reason for Visit * Reason Onset Date Comments Med Refill 12/05/2022 Encounter Details Date Type Department Care Team (Late st Contact Info) Description 12/05/2022 Refill [facility] MED & PEDS 505 [place] [address] Abby Duran MD Social History Tobacco Use [...] [facility] 505 [place] [address] Jackie Abdi MD 505 [place] [address] documented as of this encounter Visit Diagnoses Not on filedocumented in this encounter Additional Health Concerns Assessment Noted Time PHQ-9 Depression Total Score: 21 023 8:57 AM EDT documented as of this encounter Care Teams Merchandise Manager Relationship Specialty Start Date End Date Jackie Abdi MD [address] [place] [address] PCP - General Family Medicine 04/29/13 documented as of this encounter
--- OUTSIDE RECORDS SUMMARY | 2024-06-07 19:39 | XMS_ITS | Encounter Summary ---
Author Organization [employer] Address [address] [facility] 7t [place] [address] Care Team Providers Care Thermograph Operator Name Role Phone Jackie Abdi MD Primary Care Provider [phone] Encounter Details Date Type Department Care Team (Late Contact Info) Description 06/03/2022 Orders Only [facility] CHC MED & PEDS 505 [place] [address] Kaylin Kaur MD 505 [place] [address] Mid-back pain, acute (Primary Dx) Social History [...] 10:00 AM EDT Office Visit [facility] MED & PEDS 505 [place], [place] [phone] Jackie Abdi MD [address] [place] [address] documented as of this encounter Visit Diagnoses Diagnosis Mid-back pain, acute- Primary documented in this encounter Care Teams Thermograph Operator Relationship Specialty Start Date End Date Jackie Abdi MD [address] [place] [address] PCP - General Family Medicine 04/29/13 documented as of this encounter
--- OUTSIDE RECORDS SUMMARY | 2024-06-07 19:39 | XMS_ITS | Encounter Summary ---
Author Organization [employer] Address 75 [facility] 7t [place] [address] Care Team Providers Care Test Inspection Engineer Name Role Phone Jackie Abdi MD Primary Care Provider [phone] Reason for Visit * Reason Comments Med Refill Encounter Details Date Type Department Care Team ([facility] st Contact Info) Description 06/06/2024 Refill [facility] 230 [place] [address] Jackie Abdi MD [address] [place] [address] Social History Tobacco Use Types Packs/Day Years [...] Office Visit [facility] MED & PEDS 505 [place] [address] Jackie Abdi MD 505 [place] [address] documented as of this encounter Visit Diagnoses Not on filedocumented in this encounter Additional Health Concerns Assessment Noted Time PHQ-9 Depression Total Score: 14 025 11:23 AM EST documented as of this encounter Care Teams Test Inspection Engineer Relationship Specialty Start Date End Date Jackie Abdi MD [address] [place] [address] PCP - General Family Medicine 04/29/13 documented as of this encounter
--- OUTSIDE RECORDS SUMMARY | 2024-06-07 19:39 | XMS_ITS | Encounter Summary ---
Author Organization [employer] Address 75 [facility] 7t [place] [address] Care Team Providers Care Green Chain Marker Name Role Phone Jackie Abdi MD Primary Care Provider [phone] Reason for Visit * Reason Comments Med Refill Encounter Details Date Type Department Care Team ([facility] st Contact Info) Description 10/23/2023 Refill [facility] CHC MED & PEDS 505 [place], [place] [phone] Jackie Abdi MD 505 [place] [address] Social History Tobacco Use Types Packs/Day Years [...] AM EDT Office Visit [facility] MED & PEDS 505 [place] [address] Jackie Abdi MD 505 [place] [address] documented as of this encounter Visit Diagnoses Not on filedocumented in this encounter Additional Health Concerns Assessment Noted Time PHQ-9 Depression Total Score: 21 023 8:57 AM EDT documented as of this encounter Care Teams Green Chain Marker Relationship Specialty Start Date End Date Jackie Abdi MD [address] [place] [address] PCP - General Family Medicine 04/29/13 documented as of this encounter
--- OUTSIDE RECORDS SUMMARY | 2024-06-07 19:39 | XMS_ITS | Encounter Summary ---
Author Organization [facility] Address [address] [place] [address] [place], [place] [address] Care Team Providers Care Model And Dye Person Name Role Phone Jackie Abdi MD Primary Care Provider [phone] Encounter Details Date Type Department Care Team (Late st Contact Info) Description 03/18/2022 Orders Only [facility] MED & PEDS 505 [place] [address] Marielos Hooks LPN Social History Tobacco Use [...] 10:00 AM EDT Office Visit [facility] MED & PEDS 505 [place] [address] Jackie Adbi MD 505 [place] [address] documented as of this encounter Visit Diagnoses Not on filedocumented in this encounter Care Teams Model And Dye Person Relationship Specialty Start Date End Date Jackie Abdi MD [address] [place] [address] PCP - General Family Medicine 04/29/13 documented as of this encounter
--- OUTSIDE RECORDS SUMMARY | 2024-06-07 19:39 | XMS_ITS | Encounter Summary ---
Author Organization [employer] Address 75 [facility] 7t [place] [address] Care Team Providers Care Sr. Social Media & Mobile Manager Name Role Phone Jackie Abdi MD Primary Care Provider [phone] Reason for Visit * Reason Comments Med Refill Encounter Details Date Type Department Care Team ([facility] st Contact Info) Description 06/03/2024 Refill [facility] MEDICINE 230 [place] [address] Jackie Abdi MD [address] [place] [address] Social History Tobacco Use Types Packs/Day Years [...] [facility] 505 [place] [address] Jackie Abdi MD 505 [place] [address] documented as of this encounter Visit Diagnoses Not on filedocumented in this encounter Additional Health Concerns Assessment Noted Time PHQ-9 Depression Total Score: 14 025 11:23 AM EST documented as of this encounter Care Teams Sr. Social Media & Mobile Manager Relationship Specialty Start Date End Date Jackie Abdi MD [address] [place] [address] PCP - General Family Medicine 04/29/13 documented as of this encounter
--- OUTSIDE RECORDS SUMMARY | 2024-06-07 19:39 | XMS_ITS | Encounter Summary ---
Author Organization [employer] Address 75 [facility] 7t [place] [address] Care Team Providers Care Clerical Clerk Name Role Phone Jackie Abdi MD Primary Care Provider [phone] Reason for Visit * Reason Comments Med Refill Encounter Details Date Type Department Care Team (Late Contact Info) Description 09/18/2022 Refill [facility] MED & PEDS 505 [place], [place] [phone] Ronnell Sanderson MD 505 [place] [address] Mid-back pain, acute Social History Tobacco Use [...] 10:00 AM EDT Office Visit [facility] MED & PEDS 505 [place] [address] Jackie Abdi MD 505 [place] [address] documented as of this encounter Visit Diagnoses Diagnosis Mid-back pain, acute documented in this encounter Additional Health Concerns Assessment Noted Time PHQ-9 Depression Total Score: 21 023 8:57 AM EDT documented as of this encounter Care Teams Clerical Clerk Relationship Specialty Start Date End Date Jackie Abdi MD [address] [place] [address] PCP - General Family Medicine 04/29/13 documented as of this encounter
--- OUTSIDE RECORDS SUMMARY | 2024-06-07 19:39 | XMS_ITS | Encounter Summary ---
Author Organization [employer] Address 75 [facility] 7t [place] [address] Care Team Providers Care Editor In Chief Name Role Phone Jackie Abdi MD Primary Care Provider [phone] Reason for Visit * Reason Onset Date Comments Results 04/30/2022 Encounter Details Date Type Department Care Team ([facility] Contact Info) Description 04/30/2022 Telephone [facility] MEDICINE 230 [place] [address] Jackie Abdi MD [address] [place] [address] Results Social History Tobacco Use Types Packs/Day [...] regarding xray results Please contact pt at [phone] documented in this encounter Plan of Treatment Upcoming Encounters Date Type Department Care Team (Late st Contact Info) Description 06/21/2024 10:00 AM EDT Office Visit [facility] CHC MED & PEDS 505 [place] [address] Jackie Abdi MD 505 [place] [address] documented as of this encounter Visit Diagnoses Not on filedocumented in this encounter Care Teams Editor In Chief Relationship Specialty Start Date End Date Jackie Abdi MD [address] [place] [address] PCP - General Family Medicine 04/29/13 documented as of this encounter
--- OUTSIDE RECORDS SUMMARY | 2024-06-07 19:39 | XMS_ITS | Encounter Summary ---
Author Organization [employer] Address 75 [facility] 7t [place] [address] Care Team Providers Care Barrel Lathe Operator Name Role Phone Jackie Abdi MD Primary Care Provider [phone] Reason for Visit * Reason Onset Date Comments Nurse Triage 08/03/2023 Encounter Details Date Type Department Care Team ([facility] st Contact Info) Description 08/03/2023 Telephone [facility] MEDICINE 230 [place] [address] Jackie Abdi MD [address] [place] [address] Nurse Triage Social History Tobacco Use Types [...] point. pt states is currently at the [facility] for evaluation. advised to complete the [...] Visit [facility] MED & PEDS 505 [place] [address] Jackie Abdi MD 505 [place] [address] documented as of this encounter Visit Diagnoses Not on filedocumented in this encounter Additional Health Concerns Assessment Noted Time PHQ-9 Depression Total Score: 21 06/26/ 023 8:57 AM EDT documented as of this encounter Care Teams Barrel Lathe Operator Relationship Specialty Start Date End Date Jackie Abdi MD [address] [place] [address] PCP - General Family Medicine 04/29/13 documented as of this encounter
--- OUTSIDE RECORDS SUMMARY | 2024-06-07 19:39 | XMS_ITS | Encounter Summary ---
Author Organization [facility] Address [address] [place] [address] Care Team Providers Care Desulphuring Operator Name Role Phone Jackie Abdi MD Primary Care Provider [phone] Reason for Visit * Reason Comments Abdominal Pain GI Problem Encounter Details Date Type Department Care Team (Late st Contact Info) Description 06/03/2024 2:40 PM EST Office Visit [facility] - [place] [address] [facility] [address] [place] [phone] Artis Leyva PA [address] [facility] [address] [place] [address] Epigastric pain (Primary Dx); Generalized abdominal pain; [...] sent through Care Everywhere. * Abdominal Pain (Cuban) * Dyspepsia (Cuban) * Acid-Reducing Medicines: General Info (Cuban) * Gas and Bloating (Cuban) * Gastritis (Cuban) documented in this encounter Ordered Prescriptions Prescription [...] IMAGING: CR SHOULDER RT MIN 2 [facility] Diagnostic Imaging Department [address] [place] [address] Patient: SADE FRAGA /Age/Sex: 1970 - 53 - F Unit#: [id number] Location/Status: SPDIGEN/REG CLI Mnemonic/Ordering Site: SHOULDRT/SPDI Ordering [...] Otherwise, normal examination, without acute findings. Code [id number] Dictating Physician: SATNAM ESTRADA MD Electronically Signed [...] PM EDT Office Visit Bariatric Surgery - [place] [address] [facility] [address] [place] [phone] Aleksandar Heaton MD [address] [facility] [address] [place] [address] documented as of this encounter Visit Diagnoses [...] documented as of this encounter Care Teams Desulphuring Operator Relationship Specialty Start Date End Date Jackie Abdi MD [address] [place] [address] PCP - General 10/20/16 documented as of this encounter
--- OUTSIDE RECORDS SUMMARY | 2024-06-07 19:39 | XMS_ITS | Encounter Summary ---
Author Organization [employer] Address 75 [facility] 7t [place] [address] Care Team Providers Care Data Governance Analyst Name Role Phone Jackie Abdi MD Primary Care Provider [phone] Reason for Visit * Reason Onset Date Comments Referral 08/26/2023 Encounter Details Date Type Department Care Team ([facility] st Contact Info) Description 08/26/2023 Telephone [facility] MEDICINE 230 [place] [address] Jackie Abdi MD [address] [place] [address] Referral Social History Tobacco Use Types Packs/Day [...] EDT Tc from pt was advised by bilingual customer service office to request new referral due not being seen until 2020. Address: [address] [place] [address] [address] [facility] [address] Facility Name: [facility]. Type of Specialist: Magazine Repairer Pt is also requesting referral for a urologist and or deboning team leader due to some recent concerns. (Ptwas triaged) If any questions please contact pt at [phone]. documented in this encounter Plan of Treatment Upcoming Encounters Date Type Department Care Team ([facility] st Contact Info) Description 06/21/2024 10:00 AM EDT Office Visit [facility] MED & PEDS 505 [place] [address] Jackie Abdi MD 505 [place] [address] documented as of this encounter Visit Diagnoses Not on filedocumented in this encounter Additional Health Concerns Assessment Noted Time PHQ-9 Depression Total Score: 21 023 8:57 AM EDT documented as of this encounter Care Teams Data Governance Analyst Relationship Specialty Start Date End Date Jackie Abdi MD 230 [place] [address] PCP - General Family Medicine 04/29/13 documented as of this encounter
--- OUTSIDE RECORDS SUMMARY | 2024-06-07 19:39 | XMS_ITS | Encounter Summary ---
Author Organization [employer] Address [address] [facility] 7t [place] [address] Care Team Providers Care Electronics Commodity Manager Name Role Phone Jackie Abdi MD Primary Care Provider [phone] Reason for Visit * Reason Comments Med Refill Encounter Details Date Type Department Care Team ([facility] st Contact Info) Description 06/01/2024 Refill [facility] MEDICINE 230 [place] [address] Jackie Abdi MD [address] [place] [address] Acute pain of right shoulder Social History [...] Description 06/21/2024 10:00 AM EDT Office Visit [facility] MED & PEDS 505 [place] [address] Jackie Abdi MD 505 [place] [address] documented as of this encounter Visit Diagnoses Diagnosis Acute pain of right shoulder documented in this encounter Additional Health Concerns Assessment Noted Time PHQ-9 Depression Total Score: 14 025 11:23 AM EST documented as of this encounter Care Teams Electronics Commodity Manager Relationship Specialty Start Date End Date Jackie Abdi MD [address] [place] [address] PCP - General Family Medicine 04/29/13 documented as of this encounter
--- OUTSIDE RECORDS SUMMARY | 2024-06-07 19:39 | XMS_ITS | Encounter Summary ---
Author Organization [employer] Address [address] [place] [address] 7t [place] [address] Care Team Providers Care Berry Grower Name Role Phone Jackie Abdi MD Primary Care Provider [phone] Encounter Details Date Type Department Care Team (Late st Contact Info) Description 12/08/2022 Telephone [facility] CHC MED & PEDS 505 [place], [place] [phone] Jackie Abdi MD 505 [place] [address] Social History Tobacco Use Types Packs/Day Years [...] CENTER CHC MED & PEDS [address] [place] [address] Jackie Abdi MD [address] [place] [address] documented as of this encounter Visit Diagnoses Not on filedocumented in this encounter Additional Health Concerns Assessment Noted Time PHQ-9 Depression Total Score: 21 023 8:57 AM EDT documented as of this encounter Care Teams Berry Grower Relationship Specialty Start Date End Date Jackie Abdi MD [address] [place] [address] PCP - General Family Medicine 04/29/13 documented as of this encounter
--- OUTSIDE RECORDS SUMMARY | 2024-06-07 19:39 | XMS_ITS | Clinical Summary ---
Author Organization [facility] Address [address] [place] [phone] Phone Care Team Providers Care Chief Projectionist Name Role Phone Jackie Abdi MD Primary Care Provider [phone] Allergies No known active allergies Medications cholecalcifero [...] 2:40 PM EST Office Visit Gastroenterology - [place] [address] [facility] [address] [place] [address] Artis Leyva PA Epigastric pain (Primary Dx); Generalized abdominal pain; Gassiness; Dyspepsia; History of gastric bypass from Last 3 Months Immunizations Name Administration Dates Next Due Tdap Tetanus diptheria acell ular pertussis (Boostrix; Adacel) 7yo and older 01/19/2012 Surgical History Surgery Date Site/Laterality Comments OTHER SURGICAL HISTORY PROCEDURE: [place] ARTHRS AID TIBIAL FRACTURE PROXIMAL UNICONDYLAR CHOLECYSTECTOMY PROCEDURE: [place] LAPAROSCOPY SURG CHOLECYSTECTOMY BUNIONECTOMY PROCEDURE: BUNION SURGERY, SIMPLE REMOVAL SECTION PROCEDURE: NC DELIVERY ONLY Medical History Medical History Date Comments Hypercholesteremia DX:Hyperchole steremia Class 2 severe obesity due t o excess calories with serious comorbidity and body mass index (BMI) of 35.0 to 35.9 in adult ([facility]) 05/03/2020 DX:Class 2 severe obesity du e to excess calories with serious comorbidity and body mass index (BMI) of 35.0 to 35.9 in adult ([facility]) Gastroesophageal reflux dise ase [...] Encounters Date Type Department Care Team ([facility] st Contact Info) Description 06/16/2024 3:45 PM EDT Office Visit Bariatric Surgery - [place] [address] [facility] [address] [place] [address] Aleksandar Heaton MD [address] [facility] [address] [place] [address] Health Maintenance Due Date Last Done Comments [...] Results * Hepatitis C Screening (09/22/2023) Pathologist [facility] Hepatitis C Screening abstracted Historical Provider [...] Maintenance Insurance MEDICAID - [place] Care Teams Chief Projectionist Relationship Specialty Start Date End Date Jackie Abdi MD [address] [place] [id number] PCP - General 10/20/16
--- OUTSIDE RECORDS SUMMARY | 2024-06-07 19:39 | XMS_ITS | Encounter Summary ---
Author Organization [employer] Address 75 [facility] 7t [place] [address] Care Team Providers Care Ward Clerk Name Role Phone Jackie Abdi MD Primary Care Provider [phone] Encounter Details Date Type Department Care Team ([facility] st Contact Info) Description 03/11/2023 Abstract [facility] [address] [place] [address] Jackie Abdi MD [address] [place] [address] Social History Tobacco Use Types Packs/Day Years [...] 10:00 AM EDT Office Visit [facility] MED & PEDS 505 [place] [address] Jackie Abdi MD 505 [place] [address] documented as of this encounter Visit Diagnoses Not on filedocumented in this encounter Additional Health Concerns Assessment Noted Time PHQ-9 Depression Total Score: 21 023 8:57 AM EDT documented as of this encounter Care Teams Ward Clerk Relationship Specialty Start Date End Date Jackie Abdi MD [address] [place] [address] PCP - General Family Medicine 04/29/13 documented as of this encounter
--- OUTSIDE RECORDS SUMMARY | 2024-06-07 19:39 | XMS_ITS | Clinical Summary ---
Author Organization [employer] Address [address] [facility] 7t [place] [address] Care Team Providers Care Sheet Rock Installation Helper Name Role Phone Jcakie Abdi MD Primary Care Provider [phone] Allergies Active Allergy Reactions Criticality Noted Date Comments Sulfamethoxazole-Trimethoprim Angioedema 2023 Medications Multiple Vitamin (Multi-Vitamin) tablet Take 1 tablet by mouth at bed time. Active cholecalciferol (Vitamin D-3) 1.25 MG (54079 UT) capsule Take 1 capsule by mouth. [...] Encounters Date Type Department Care Team Description 06/06/2024 Refill [facility] [address] [place] [address] Jackie Abdi MD 06/03/2024 Refill [facility] [address] [place] [address] Jackie Abdi MD 06/01/2024 Refill [facility] [address] [place] [address] Jackie Abdi MD Acute pain of right shoulder 05/08/2024 Refill [facility] [address] [place] [address] Jackie Abdi MD Acute pain of right shoulder 04/26/2024 10:00 AM EST Office Visit [facility] [address] [place] [address] Hiren Garcia MD Chronic pain in right shoulder (Primary Dx); Acute bilateral ankle pain 04/22/2024 Orders Only [facility] [address] [place] [address] Pola Maldonado CNM 04/21/2024 2:00 PM EST Office Visit [facility] [address] [place] [address] Pola Maldonado CNM Vaginal discharge (Primary Dx); Atrophic vaginitis; Pain in female genitalia on intercourse; Menopausal syndrome (hot flashes); Screening mammogram for breast cancer 04/21/2024 Outside Procedure [facility] [address] [place] [address] David, An, OD Presbyopia of both eyes (Primary Dx) 04/20/2024 Travel 04/19/2024 3:30 PM EST Office Visit [facility] [address] [place] [address] David, An, OD Hyperopia of both eyes (Primary Dx) 04/19/2024 11:30 AM EST [facility] [address] [place] [address] Jackie Abdi MD Vaginal itching (Primary Dx); Pain in female genitalia on intercourse 04/19/2024 Travel 04/12/2024 Travel 04/08/2024 Telephone [facility] [address] [place] [address] Jackie Abdi MD appt 04/01/2024 Refill [facility] [address] [place], [place] [phone] Jackie Abdi MD 03/25/2024 Orders Only [facility] External Provider, [facility] from Last 3 Months Immunizations Name [...] the past 12 months, has t he [employer], gas, oil or water company threatened to [...] [facility] [address] [place] [address] Jackie Abdi MD [address] [place] [address] Health Maintenance Due Date Last Done Comments [...] EST Narrative 04/27/2024 9:35 AM EST ? [facility] ?[address] ?[place], [place] [address] ? Ultrasound Report ? Signed ? Patient: Philly,Sade ?MR#: [id number] ?? 4 ? : 1970 ?Acct:[id number] ? Age/Sex: 54 / F ?ADM Date: 04/26/24 ? Loc: HO.US ? Attending Dr: Pola Maldonado CNM ? Ordering Physician: POLA MALDONADO CNM ?? Date of Service: 04/26/24 ?? Procedure(s): US pelvic and transvaginal ?? Accession Number(s): [id number] ? cc: Jackie Abdi MD; POLA MALDONADO [...] by Gary S Flaca, MD in OV> ?04/27/2432 ? DD/ 1615 ? TD/TT: 04/26/24 1623 ? Executive Director Global Brand Marketing: MSM ? Procedure Note Donotuseinterpreter, Image - 04/27/2024 [place] [address] Ultrasound Report Signed Patient: Gray Fraga#: [id number] 4 : 1970Acct:[id number] Age/Sex: 54 / FADM Date: 04/26/24 Loc: HO.US Attending Dr: Pola Maldonado CNM Ordering Physician: POAL MALDONADO CNM Date of Service: 04/26/24 Procedure(s): US pelvic and transvaginal Accession Number(s): [id number] cc: Jackie Abdi MD; POLA MALDONADO CNM [...] by: Gary Thayer MD 04/27/2024 09:32 AM [facility] Dictated By: Gary Thayer MD Signed By: <Electronically signed by Gary Thayer MD in OV> 04/27/24 0932 DD/ 1615 TD/TT: 04/26/24 1623 Executive Director Global Brand Marketing: BRAYDON Pola Maldonado CNM IMG US PROCEDURES Edited Result - Final * POCT fern test, vaginal fluid manually resulted (04/21/2024 2:42 PM EST) [facility]ISSA[facility] Prep Negative Comment:pH 5, neg whiff, neg clue, neg trich, neg wbc, neg yeast, parabasal cells noted Vaginal Fluid Vaginal structure / Unknown 04/21/2024 2:42 PM EST Impressions Pola Maldonado CNM - 04/21/2024 2:42 PM EST Atrophic vaginitis Result [facility] Pola Maldonado CNM POINT OF CARE TEST ENTER/ EDIT ORDERABLES Final Result * (ABNORMAL) Bacterial Vaginosis Panel (04/21/2024 2:24 PM EST) TRICHOMONAS VAGINALIS DETECTION BY PCR NOT DETECTED Not Detect [facility] BACTERIAL VAGINOSIS DETECTION BY PCR NEGATIVE Negative [facility] Comment:The BV organism targ ets of [...] GROUP DETECTION BY PCR DETECTED(A) Not Detect [facility] Ofelia glab krusei PCR NOT DETECTED Not Detect [facility] Swab Vaginal structure / Unknown 04/21/2024 2:24 PM EST 04/21/2024 5:25 PM EST Pola Maldonado CNM LAB MICROBIOLOGY - GENERA L ORDERABLES Final Result [facility] [address] [place] [address] [phone] * US Retroperitoneal Complete (03/25/2024 10:07 AM EST) Anatomical Region Laterality Modality Ultrasound 03/25/2024 10:0 7 AM EST Narrative 04/08/2024 9:22 AM EST ? [facility] ?[address] ?[place] [address] ? Ultrasound Report ? Signed ? Patient: Philly,Sade ?MR#: [id number] ?? 4 ? : 1970 ?Acct:[id number] ? Age/Sex: 54 / F ?ADM Date: 03/25/24 ? Loc: HO.US ? Attending Dr: Sarah HARE ? Ordering Physician: Sarah Gomez ?? Date of Service: 03/25/24 ?? Procedure(s): US retroperitoneal comp ?? Accession Number(s): [id number] ? cc: Sarah Gomez; Jackie Abdi MD ? EXAMINATION: ?? US RETROPERITONEAL COMPLETE (RENAL) ? CLINICAL INFORMATION: ?? Urinary tract infection, site not specified. ? COMPARISON: ?? Ultrasound abdomen limited 10/22/2022. ? TECHNIQUE: ?? Real-time imaging of the kidneys and bladder. ? Exam submitted for review 04/08/2024 8:18 AM ELECTRICAL TROUBLESHOOTER. ? FINDINGS: ? RIGHT KIDNEY: 9.7 x [...] DD/ 1007 ? TD/TT: 03/25/24 1020 ? Executive Director Global Brand Marketing: ? Procedure Note Molly, Image - 04/08/2024 [place] [address] Ultrasound Report Signed Patient: Gray Fraga#: [id number] 4 : 1970Acct:[id number] Age/Sex: 54 / FADM Date: 03/25/24 Loc: HO.US Attending Dr: Sarah HARE Ordering Physician: Sarah Gomez Date of Service: 03/25/24 Procedure(s): US retroperitoneal comp Accession Number(s): [id number] cc: Sarah Gomez; Jackie Abdi MD EXAMINATION: US RETROPERITONEAL COMPLETE (RENAL) CLINICAL INFORMATION: Urinary tract infection, site not specified. COMPARISON: Ultrasound abdomen limited 10/22/2022. TECHNIQUE: Real-time imaging of the kidneys and bladder. Exam submitted for review 04/08/2024 8:18 AM ELECTRICAL TROUBLESHOOTER. FINDINGS: RIGHT KIDNEY: 9.7 x 5.7 x [...] 04/08/24 0919 DD/ 1007 TD/TT: 03/25/24 1020 Executive Director Global Brand Marketing: [facility] External Provider IMG US PROCEDURES Final Result * Cologuard?? colon cancer screening (02/23/2023 10:44 AM EST) Cologuard Result Negative Negative 03/01/20 3:14 PM EST [facility] (CLIA #:[id number]) Comment: NEGATIVE TEST RESULT. A negative Cologuard [...] cancer. ??Following a negative Cologuard result, the [place] Cancer Society and U.S. Multi-Society Task Force screening guidelines recommend a Cologuard re-screening interval of 3 years. References: [place] Cancer Society Guideline for Colorectal Cancer Screening: https://www.cancer.org/cancer/ovsao-qrhofo-ocrtpr/nzyeddyww-dpwooetxy-nqkkgkq/ac s-rec ommendations.html.; Bean DK, Mitchell GAO, Dank WeberK, Colorectal Cancer Screening: Recommendations for Physicians and Patients from the U.S. Multi-Society Task Force on Colorectal Cancer Screening , Am J Gastroenterology 2017; 112:7191-6741. TEST DESCRIPTION: Composite algorithmic analysis of stool [...] (Javi Frank al, N Engl J Med 2014;370(14):6981-7834.) Cologuard may produce a false negative or false positive result (no colorectal cancer or precancerous polyp present at colonoscopy follow up). A negative Cologuard test result does not guarantee the absence of CRC or advanced adenoma (pre-cancer). The current Cologuard screening interval is every 3 years. ([place] Cancer Society and U.S. Multi-Society Task Force). Cologuard performance data in a 10,000 patient pivotal study using colonoscopy as the reference method can be accessed at the following location: www.[employer]box Systems.EadBox/results. Additional description of the Cologuard test process, warnings and precautions can be found at www.Wongard.EadBox. Stool specimen (specimen) 02/23/2023 10:44 AM EST 02/24/2023 1:44 PM EST Jackie Abdi MD LAB MOLECULAR DIAGNOSTICS ORDERA BLES Final Result [facility] (CLIA #:[id number]) [place] [address], * Thinprep TIS PAP And HPV mRNA E6/E7, CT/NG, TRICH (04/08/2022 4:21 PM EST) Clinical Information: SCREENING, PELVIC PAIN [facility] LMP: NONE GIVEN [facility] Prev. PAP: NONE GIVEN [facility] Prev. BX: NONE GIVEN [facility] SOURCE: None given [facility] Statement Of Adequacy: [facility] Comment: Satisfactory for evaluation. Endocervical/transformation zone component present. Age and/or menstrual status not provided Interpretation/Re sult: Negative for intraepithelial lesion or malignancy. [facility] COMMENT: This Pap test has been evaluated with computer assisted technology. [facility] Certified Nursing Attendant: Jose ruano [facility] [place] [facility] Comment: DMM, CT(ASCP) CT screening location: [address] ??[address] (Always Message) [facility] [place] [facility] Comment: EXPLANATORY NOTE: The Pap is a [...] HPV nRNA E6/E7 Not Detected Not Detected [facility] [place] [facility] Comment: Methodology: Thermospray Operator-Mediated Amplification This assay detects E6/E7 viral messenger RNA (mRNA) from 14 high-risk HPV types (16,18,31,33,35,39,45,51,52,56,58,59,66,68). Cervical sources are required for HPV testing. If a vaginal source from a patient who has had a total hysterectomy with removal of cervix was submitted, please contact the testing laboratory for alternative testing options. For additional information, please refer to http://Bellstrike.Pingboard/faq/FDA211j8 (This link if provided for information/ educational purposes only.) Chlamydia trachomatis RNA, TMA, Urogenital NOT DETECTED NOT DETECTED [facility] [place] [facility] Neisseria gonorrhoeae RNA, TMA, Urogenital NOT DETECTED NOT DETECTED [facility] (Always Message) [facility] [place] [facility] Comment: The analytical performance characteristics of this assay, when used to test SurePath(TM) specimens have been determined by [facility]. The modifications have not been cleared or approved by the FDA. This assay has been validated pursuant to the CLIA regulations and is used for clinical purposes. For additional information, please refer to https://Bellstrike.Pingboard/faq/CCJ922 (This link is being provided for information/ educational purposes only.) Trichomonas vaginalis, QL, TMA, PAP Vial NOT DETECTED NOT DETECTED [facility] [place] [facility] Comment: The analytical performance characteristics of this assay have been determined by [facility]. The modifications have not been cleared or approved by the FDA. This assay has been validated pursuant to the CLIA regulations and is used for clinical purposes. For additional information, please refer to http://Bellstrike.Pingboard/ faq/Trichomonastma (This link is being provided for information/ educational purposes only.) 04/08/2022 4:21 PM EST 04/09/2022 11:04 AM EST Narrative [facility] - 04/14/2022 10:42 AM EST FASTING: UNKNOWN Pola Maldonado CN LAB PATHOLOGY ORDERABLES Final Result [address] [place] [address], [place] [address] [facility] [address] [facility], ([address]) [place] [address] * HEPATITIS C AB W/REFL TO HCV RNA, QN, PCR (12/12/2020 10:12 AM EDT) HEPATITIS C ANTIBODY NON-REACT COLE NON-REACT COLE [facility] INDEX 0.09 <1.00 [facility] Comment: ?? HCV antibody was non-reactive. There is no laboratory ?? evidence of HCV infection. ?? In most cases, no further action is required. However, if recent HCV exposure is suspected, a test for HCV RNA (test code 08294) is suggested. ?? For additional information please refer to http://Bellstrike.Pingboard/faq/VIZ57v4 (This link is being provided for informational/ educational purposes only.) ?? 12/12/2020 10:1 2 AM EDT Hiren Garcia MD HISTORICAL/NON ORDERABLE LABS Fi nal Result [facility] [address] * HIV 1/2 ANTIGEN/ANTIBODY,FOURTH GENERATION W/RFL (12/12/2020 10:12 AM EDT) HIV-1/2 ANTIGEN AND ANTIBODIES, 4TH GENERATION W/ REFLEX NON-REACT COLE NON-REACT COLE [facility] Comment: HIV-1 antigen and HIV-1/HIV-2 [...] ? For additional information please refer to http://education.Pingboard/faq/ZRB996 (This link is being provided for informational/ educational purposes only.) ? The performance of this assay has not been clinically validated in patients less than 2 years old. ?? 12/12/2020 10:1 2 AM EDT us Hiren Garcia MD LAB BLOOD ORDERABLES Final Resul t [facility] [address] from Last 3 Months or Most Recently Relevant to Health Maintenance Insurance C3 [facility] MEDICAID STAND ADULT Care Teams Sheet Rock Installation Helper Relationship Specialty Start Date End Date Jackie Abdi MD [address] [place] [address] PCP - General Family Medicine 04/29/13
--- OUTSIDE RECORDS SUMMARY | 2024-06-07 19:39 | XMS_ITS | Encounter Summary ---
Author Organization [employer] Address [address] [facility] 7t [place] [address] Care Team Providers Care Information Director Name Role Phone Jackie Abdi MD Primary Care Provider [phone] Reason for Visit * Reason Onset Date Comments Med Refill 11/13/2023 Encounter Details Date Type Department Care Team (Late st Contact Info) Description 11/13/2023 Refill [facility] [address] [place] [address] Jackie Abdi MD [address] [place] [address] Social History Tobacco Use Types Packs/Day Years [...] 10:21 AM EDT Sexual Orientation Straight 06/27/2022 9 :00 AM EDT documented as of this encounter Plan of Treatment Upcoming Encounters Date Type Department Care Team (Late st Contact Info) Description 06/21/2024 10:00 AM EDT Office Visit [facility] [address] [place] [address] Jackie Abdi MD [address] [place] [address] documented as of this encounter Visit Diagnoses Not on filedocumented in this encounter Additional Health Concerns Assessment Noted Time PHQ-9 Depression Total Score: 21 023 8:57 AM EDT documented as of this encounter Care Teams Information Director Relationship Specialty Start Date End Date Jackie Abdi MD [address] [place] [address] PCP - General Family Medicine 04/29/13 documented as of this encounter
--- OUTSIDE RECORDS SUMMARY | 2024-06-07 19:39 | XMS_ITS | Encounter Summary ---
Author Organization [employer] Address [address] [facility] 7t [place] [address] Care Team Providers Care Transit Specialist Name Role Phone Jackie Abdi MD Primary Care Provider [phone] Reason for Visit * Reason Comments Med Refill Encounter Details Date Type Department Care Team ([facility] st Contact Info) Description 09/01/2023 Refill [facility] [address] [place], [place] [phone] Ronnell Sanderson MD [address] [place] [address] Acute pain of right shoulder Social History [...] [facility] [address] [place] [address] Jackie Abdi MD [address] [place] [address] documented as of this encounter Visit Diagnoses Diagnosis Acute pain of right shoulder documented in this encounter Additional Health Concerns Assessment Noted Time PHQ-9 Depression Total Score: 21 023 8:57 AM EDT documented as of this encounter Care Teams Transit Specialist Relationship Specialty Start Date End Date Jackie Abdi MD [address] [place] [address] PCP - General Family Medicine 04/29/13 documented as of this encounter
--- OUTSIDE RECORDS SUMMARY | 2024-06-07 19:39 | XMS_ITS | Encounter Summary ---
Author Organization [employer] Address 75 [facility] 7t [place] [address] Care Team Providers Care Lock Expert Name Role Phone Jackie Abdi MD Primary Care Provider [phone] Reason for Visit * Reason Onset Date Comments Med Refill 02/26/2023 Encounter Details Date Type Department Care Team (Late st Contact Info) Description 02/26/2023 Refill [facility] [address] [place] [address] Jackie Abdi MD [address] [place] [address] Social History Tobacco Use Types Packs/Day Years [...] Description 06/21/2024 10:00 AM EDT Office Visit [facility] P[facility] [address] [place] [address] Jackie Abdi MD [address] [place] [address] documented as of this encounter Visit Diagnoses Not on filedocumented in this encounter Additional Health Concerns Assessment Noted Time PHQ-9 Depression Total Score: 21 023 8:57 AM EDT documented as of this encounter Care Teams Lock Expert Relationship Specialty Start Date End Date Jackie Abdi MD [address] [place] [address] PCP - General Family Medicine 04/29/13 documented as of this encounter
--- OUTSIDE RECORDS SUMMARY | 2024-06-07 19:39 | XMS_ITS | Encounter Summary ---
Author Organization [email or web address] Address [address] [place] [address] 7t [place] [address] Care Team Providers Care General Farmer Name Role Phone Jackie Abdi MD Primary Care Provider [phone] Encounter Details Date Type Department Care Team (Late st Contact Info) Description 10/01/2022 Abstract [facility] MED[facility] [address] [place] [address] Jackie Abdi MD [address] [place] [address] Social History Tobacco Use Types Packs/Day Years [...] Description 06/21/2024 10:00 AM EDT Office Visit [facility] PEDS [address] [place] [address] Jackie Abdi MD [address] [place] [address] documented as of this encounter Visit Diagnoses Not on filedocumented in this encounter Additional Health Concerns Assessment Noted Time PHQ-9 Depression Total Score: 21 023 8:57 AM EDT documented as of this encounter Care Teams General Farmer Relationship Specialty Start Date End Date Jackie Abdi MD [address] [place] [address] PCP - General Family Medicine 04/29/13 documented as of this encounter
--- OUTSIDE RECORDS SUMMARY | 2024-06-07 19:39 | XMS_ITS | Clinical Summary ---
Author Organization [facility] Address [address] [place] [address] Care Team Providers Care Store Detective Name Role Phone Jackie Abdi MD Primary Care Provider [phone] Allergies No known active allergies Medications omeprazole [...] Insurance [place] Care Teams Store Detective Relationship Specialty Start Date End Date Jackie Abdi MD [address] [place] [id number] PCP - General 04/09/20
--- OUTSIDE RECORDS SUMMARY | 2024-06-07 19:39 | XMS_ITS | Encounter Summary ---
Author Organization [employer] Address [address] [facility] 7t [place] [address] Care Team Providers Care Rating Examiner Name Role Phone Jackie Abdi MD Primary Care Provider [phone] Reason for Visit * Reason Onset Date Comments call back 06/03/2022 Encounter Details Date Type Department Care Team ([facility] st Contact Info) Description 06/03/2022 Telephone [facility] MEDICINE [address] [place] [address] Jackie Abdi MD [address] [place] [address] call back Social History Tobacco Use Types [...] a call back. Please contact pt at [phone] documented in this encounter Plan of Treatment Upcoming Encounters Date Type Department Care Team ([facility] st Contact Info) Description 06/21/2024 10:00 AM EDT Office Visit [facility] [address] [place] [address] Jackie Abdi MD [address] [place] [address] documented as of this encounter Visit Diagnoses Not on filedocumented in this encounter Care Teams Rating Examiner Relationship Specialty Start Date End Date Jackie Abdi MD [address] [place] [address] PCP - General Family Medicine 04/29/13 documented as of this encounter
--- OUTSIDE RECORDS SUMMARY | 2024-06-07 19:39 | XMS_ITS | Encounter Summary ---
Author Organization [employer] Address 75 [facility] 7t [place] [address] Care Team Providers Care Ux Design Manager Name Role Phone Jackie Abdi MD Primary Care Provider [phone] Reason for Visit * Reason Comments Med Refill Encounter Details Date Type Department Care Team ([facility] st Contact Info) Description 11/13/2023 Refill [facility] MEDIC[facility] [address] [place] [address] Jackie Abdi MD [address] [place] [address] Social History Tobacco Use Types Packs/Day Years [...] Description 06/21/2024 10:00 AM EDT Office Visit [facility] [address] [place] [address] Jackie Abdi MD [address] [place] [address] documented as of this encounter Visit Diagnoses Not on filedocumented in this encounter Additional Health Concerns Assessment Noted Time PHQ-9 Depression Total Score: 21 023 8:57 AM EDT documented as of this encounter Care Teams Ux Design Manager Relationship Specialty Start Date End Date Jackie Abdi MD [address] [place] [address] PCP - General Family Medicine 04/29/13 documented as of this encounter
--- OUTSIDE RECORDS SUMMARY | 2024-06-07 19:39 | XMS_ITS | Encounter Summary ---
Author Organization [employer] Address 75 [facility] 7t [place] [address] Care Team Providers Care Ferryboat Operator Name Role Phone Jackie Abdi MD Primary Care Provider [phone] Reason for Visit * Reason Comments Med Refill Encounter Details Date Type Department Care Team ([facility] st Contact Info) Description 06/08/2023 Refill [facility] MEDIC[facility] [address] [place] [address] Jackie Abdi MD [address] [place] [address] Depressed mood Social History Tobacco Use Types [...] [facility] [address] [place] [address] Jackie Abdi MD [address] [place] [address] documented as of this encounter Visit Diagnoses Diagnosis Depressed mood documented in this encounter Additional Health Concerns Assessment Noted Time PHQ-9 Depression Total Score: 21 023 8:57 AM EDT documented as of this encounter Care Teams Ferryboat Operator Relationship Specialty Start Date End Date Jackie Abdi MD [address] [place] [address] PCP - General Family Medicine 04/29/13 documented as of this encounter
--- OUTSIDE RECORDS SUMMARY | 2024-06-07 19:39 | XMS_ITS | Encounter Summary ---
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 Encounter Details Date Type Department Care Team (Late st Contact Info) Description 09/09/2023 Telephone [facility] AD[facility]AL [address] [place] [address] Sharon Fernandez DMD reach lift truck driver Social History Tobacco Use Types Packs/Day Years [...] t he electric, gas, oil or water ideaTree - innovate | mentor | invest threatened to shut off services in your [...] Patient called in stating hat [facility] [...] Description 06/21/2024 10:00 AM EDT Office Visit [facility] PEDS [address] [place] [address] Jackie Abdi MD 505 [place] [address] documented as of this encounter Visit Diagnoses Not on filedocumented in this encounter Additional Health Concerns Assessment Noted Time PHQ-9 Depression Total Score: 21 023 8:57 AM EDT documented as of this encounter Care Teams Rebar Fabricator Relationship Specialty Start Date End Date Jackie Abdi MD [address] [place] [address] PCP - General Family Medicine 04/29/13 documented as of this encounter"
--- OUTSIDE RECORDS SUMMARY | 2024-06-07 19:39 | XMS_ITS | Encounter Summary ---
Author Organization [employer] Address 75 [facility] 7t [place] [address] Care Team Providers Care Slot Machine Floor Person Name Role Phone Jackie Abdi MD Primary Care Provider [phone] Encounter Details Date Type Department Care Team (Late Contact Info) Description 08/28/2022 Orders Only [facility] MED & PEDS [address] [place], [place] [phone] Ronnell Sanderson MD 505 [place] [address] Social History Tobacco Use Types Packs/Day Years [...] [facility] MED & PEDS [address] [place] [address] Jackie Abdi MD [address] [place] [address] documented as of this encounter Visit Diagnoses Not on filedocumented in this encounter Additional Health Concerns Assessment Noted Time PHQ-9 Depression Total Score: 21 023 8:57 AM EDT documented as of this encounter Care Teams Slot Machine Floor Person Relationship Specialty Start Date End Date Jackie Abdi MD [address] [place] [address] PCP - General Family Medicine 04/29/13 documented as of this encounter
--- OUTSIDE RECORDS SUMMARY | 2024-06-07 19:39 | XMS_ITS | Encounter Summary ---
Author Organization [employer] Address 75 [facility] 7t [place] [address] Care Team Providers Care Dental Practice Manager Name Role Phone Jackie Abdi MD Primary Care Provider [phone] Reason for Visit * Reason Onset Date Comments Results 08/04/2023 Encounter Details Date Type Department Care Team ([facility] Contact Info) Description 08/04/2023 Telephone [facility] MED & PEDS [address] [place], [place] [phone] Jackie Abdi MD 505 [place] [address] Results Social History Tobacco Use Types Packs/Day [...] labs. Pt stated these were done by [facility] and that they diagnosed pt with [...] and culture Date when done: 08/02 Facility: [facility] Please contact pt at [phone] documented in this encounter Plan of Treatment Upcoming Encounters Date Type Department Care Team (Late st Contact Info) Description 06/21/2024 10:00 AM EDT Office Visit [facility] MED & PEDS [address] [place] [address] Jackie Abdi MD [address] [place] [address] documented as of this encounter Visit Diagnoses Not on filedocumented in this encounter Additional Health Concerns Assessment Noted Time PHQ-9 Depression Total Score: 21 06/26/ 023 8:57 AM EDT documented as of this encounter Care Teams Dental Practice Manager Relationship Specialty Start Date End Date Jackie Abdi MD [address] [place] [address] PCP - General Family Medicine 04/29/13 documented as of this encounter
--- OUTSIDE RECORDS SUMMARY | 2024-06-07 19:39 | XMS_ITS | Encounter Summary ---
Author Organization [employer] Address 75 [facility] 7t [place] [address] Care Team Providers Care Instructor Psychiatric Aide Name Role Phone Jackie Abdi MD Primary Care Provider [phone] Reason for Visit * Reason Comments Med Refill Encounter Details Date Type Department Care Team ([facility] st Contact Info) Description 05/08/2024 Refill [facility] [address] [place] [address] Jackie Abdi MD [address] [place] [address] Acute pain of right shoulder Social History [...] 10:00 AM EDT Office Visit [facility] MED & PEDS [address] [place] [address] Jackie Abdi MD 505 [place] [address] documented as of this encounter Visit Diagnoses Diagnosis Acute pain of right shoulder documented in this encounter Additional Health Concerns Assessment Noted Time PHQ-9 Depression Total Score: 14 025 11:23 AM EST documented as of this encounter Care Teams Instructor Psychiatric Aide Relationship Specialty Start Date End Date Jackie Abdi MD [address] [place] [address] PCP - General Family Medicine 04/29/13 documented as of this encounter
--- OUTSIDE RECORDS SUMMARY | 2024-06-07 19:39 | XMS_ITS | Encounter Summary ---
Author Organization [employer] Address 75 [facility] 7t [place] [address] Care Team Providers Care Senior Ui Ux Designer Name Role Phone Jackie Abdi MD Primary Care Provider [phone] Reason for Visit * Reason Comments Med Refill Encounter Details Date Type Department Care Team ([facility] st Contact Info) Description 09/16/2023 Refill [facility] MED & PEDS [address] [place], [place] [phone] Jackie Abdi MD 505 [place] [address] Acute pain of right shoulder Social History [...] Description 06/21/2024 10:00 AM EDT Office Visit [facility] MED & PEDS [address] [place] [address] Jackie Abdi MD 505 [place] [address] documented as of this encounter Visit Diagnoses Diagnosis Acute pain of right shoulder documented in this encounter Additional Health Concerns Assessment Noted Time PHQ-9 Depression Total Score: 21 023 8:57 AM EDT documented as of this encounter Care Teams Senior Ui Ux Designer Relationship Specialty Start Date End Date Jackie Abdi MD [address] [place] [address] PCP - General Family Medicine 04/29/13 documented as of this encounter
--- OUTSIDE RECORDS SUMMARY | 2024-06-07 19:39 | XMS_ITS | Encounter Summary ---
Author Organization [employer] Address [address] [place] [address] 7 [place] [address] Care Team Providers Care Coin Machine Collector Supervisor Name Role Phone Jackie Abdi MD Primary Care Provider [phone] Reason for Visit * Reason Onset Date Comments Med Refill 10/24/2022 Encounter Details Date Type Department Care Team (Late st Contact Info) Description 10/24/2022 Refill [facility] MEDICINE [address] [place] [address] Jackie Abdi MD [address] [place] [address] Social History Tobacco Use Types Packs/Day Years [...] 10:00 AM EDT Office Visit [facility] MED & PEDS [address] [place], [place] [phone] Jackie Abdi MD [address] [place], [place] [phone] documented as of this encounter Visit Diagnoses Not on filedocumented in this encounter Additional Health Concerns Assessment Noted Time PHQ-9 Depression Total Score: 21 023 8:57 AM EDT documented as of this encounter Care Teams Coin Machine Collector Supervisor Relationship Specialty Start Date End Date Jackie Abdi MD [address] [place] [address] [place] [address] PCP - General Family Medicine 04/29/13 documented as of this encounter
== END 2024-06-07 19:15 | disposition home or self-care (01) ==
LOC: HO.MRI 19:14
PROVIDERS: PCP Student in an Organized Health Care Education/Training Program; Visit Provider Physician Assistant
DX: M77.8 Other enthesopathies, not elsewhere classified (principal)
CPT/HCPCS: 73221

== ENCOUNTER 2024-06-08 11:28 | Outpatient (AMB) | payer MEDICAID, SELFPAY ==
--- NOTE | 2024-06-08 11:29 | MHC.OFFVIS ---
Intake Visit Reasons: 2m/microgen Intake Note: Patient is present for 2 month follow up/microgen Urology Med: Estradiol Antibiotic Allergy: None Blood Thinner: None PVR:0ML Saddle Lining Stitcher Required: No Accompanied by: Self / Same As Patient Allergies sulfamethoxazole [From Bactrim] Allergy (Intermediate, Verified 06/08/24 20:44) Facial Swelling trimethoprim [From Bactrim] Allergy (Intermediate, Verified 06/08/24 20:44) Facial Swelling Medication List - Last Reconciled 06/08/24 by FANI Jaramillo-BRYAN albuterol sulfate 90 mcg/actuation 2 inhalations inhalation Q6H PRN azelastine 1 spray intranasal BID budesonide-formoterol 160-4.5 mcg/actuation (Symbicort) 2 puffs inhalation BID PRN celecoxib 200 mg PO BID dicyclomine 10 mg PO TID estradiol 0.01%(0.1mg/gram) pea sized amount to urethra daily x1 month then 3 times a week thereafter 30 days folic acid 1 mg PO DAILY hydrocortisone 1% (Anti-Itch (hydrocortisone)) 1 appl topical BID hydroxyzine HCl 25 mg PO DAILY omeprazole 40 mg PO DAILY@0630 oxybutynin chloride 5 mg PO Q8H PRN phenazopyridine 100 mg PO Q8H 6 doses simvastatin 10 mg PO DAILY walker Folding Front wheeled walker HPI Comments Details: Sade is a very pleasant 54-year-old female patient of Dr. Abdi. She has a past medical history of ventricular septal defect, cellulitis, pulmonary embolism, DVT, sleep apnea, high cholesterol, asthma, and hypertension. She is being followed up on today for her recurrent urinary tract infections. In discussion with the patient today she reports having completed Augmentin therapy as prescribed. Of note, during last office visit approximately 2 months ago urine was sent for microgen testing. Microgen 04/23 noted E coli, lactobacillus iners, Enterobacter asburiae, Klebsiella pneumoniae, and Enterococcus faecalis. Previous workup has included a retroperitoneal ultrasound 03/22 noting bilateral kidneys with no hydronephrosis or renal masses. Nonobstructing 3 mm right renal calculi in the mid pole. Pre void bladder volume is approximately 350 mL. Postvoid bladder volume is approximately 30 mL. When asked she reports compliance with Estrace cream as prescribed. She does continue to report lower urinary bladder pressure as well as intermittent episodes of dysuria. In office urinalysis results reviewed with the patient today. Negative leukocytes, negative nitrates trace microscopic hematuria. We discussed importance of hydration however patient states since having had gastric bypass she finds it difficult to drink fluids. We discussed at length potential causes for lower urinary tract symptoms patient is experiencing as well as recurrent urinary tract infections. She otherwise denies incontinence, visible/gross hematuria, foul smelling urine, changes to urinary stream, flank pain, fever, and or chills. Urine cytology 01/20 Negative for high-grade urothelial carcinoma. She otherwise offers no other issues or concerns at this time. [facility] Medical History VSD (ventricular septal defect) Infection associated with internal right knee prosthesis Cellulitis History of pulmonary embolism History of DVT (deep vein thrombosis) Post-traumatic osteoarthritis of right knee Sleep apnea High cholesterol Asthma HTN (hypertension) Surgical History Status post total knee replacement, right History of bunionectomy of both great toes Hx of gastric bypass History of laparoscopic cholecystectomy History of H/O right knee surgery Family History Father Heart problem Mother Heart problem Social History Household Members: Spouse Housing: House Are you a primary home care manager to a significant other at home: No Do you presently have visiting nurse or other home services: No Alcohol intake: never Patient Tobacco Use Status: Never used Tobacco service: No Current occupational status: unemployed and disabled Current occupation: rt handed. Review of Systems Const All systems reviewed & are unremarkable except as noted in HPI and below Physical Exam Const General: cooperative, healthy appearing, comfortable, no acute distress, well developed, alert and awake Orientation/consciousness: patient oriented x3 Limitations: no limitations HEENT Head: Yes normal to inspection, Yes normocephalic and Yes atraumatic Ears: hearing grossly normal bilaterally Eyes General: appearance normal, both eyes and all related structures Neck Neck: Yes normal visual inspection and Yes trachea midline Chest Chest palpation & inspection: normal inspection of the chest Resp Effort & Inspection: normal respiratory effort and able to speak in complete sentences Cardio Rate: regular rate GI Inspection: Yes normal to inspection General: Yes no CVA tenderness Back/Spine/Pelvis Back: no CVA tenderness Skin General skin exam: no rashes or lesions noted Neuro General: patient oriented x3 Extrem General: Yes normal to inspection Psych Appearance: grossly normal and well kempt Mental Status: mental status grossly normal Speech and movement: Normal speech and movement present and Clear speech present Affect: normal affect Attitude: cooperative Thought process: Normal thought process present Thought content: Normal thought content present Insight: Fair insight present (Psych) Judgement: Fair judgement present (Psych) Office Procedures Post Void Residual Post Residual Void Post Void Residual (PVR): 0 [id number] Void Residual by ultrasound Results AMB Urinalysis, Automated UA Leukoctes 0 Shira/uL Last Edit by Gely Sweet on 06/08/24 11:46 UA Nitrite Negative Last Edit by Gely Sweet on 06/08/24 11:46 UA Urobilinogen 3.5 mg/dL Last Edit by Gely Sweet on 06/08/24 11:46 UA Protein 1 mg/dL Last Edit by Gely Sweet on 06/08/24 11:46 UA pH 6.0 Last Edit by Gely Sweet on 06/08/24 11:46 UA Blood 10 Kai/uL Last Edit by Gely Sweet on 06/08/24 11:46 UA Specific [place] 1.025 Last Edit by Gely Sweet on 06/08/24 11:46 UA Ketone Negative Last Edit by Gely Sweet on 06/08/24 11:46 UA Bilirubin 0 mg/dL Last Edit by Gely Sweet on 06/08/24 11:46 UA Glucose 0 mg/dL Last Edit by Gely Sweet on 06/08/24 11:46 Results Reviewed Results Reviewed: Laboratory Last Values Urine pH (Auto) 6.0 06/08/24 11:14 Specific [place] (Auto) 1.025 06/08/24 11:14 Urine Protein (Auto) 1 mg/dL 06/08/24 11:14 Glucose (UA)(Auto) 0 mg/dL 06/08/24 11:14 Urine Ketones (Auto) Negative 06/08/24 11:14 Urine Blood (Auto) 10 Kai/uL 06/08/24 11:14 Urine Nitrite (Auto) Negative 06/08/24 11:14 Urine Bilirubin (Auto) 0 mg/dL 06/08/24 11:14 Urine Urobilinogen (Auto) 3.5 mg/dL 06/08/24 11:14 Leukocyte Esterase (Auto) 0 Shira/uL 06/08/24 11:14 Assessment & Plan Assessment & Plan (1) Lower urinary tract symptoms: Code(s): R39.9 - Unspecified symptoms and signs involving the genitourinary system Category: Medical (2) Microscopic hematuria: Code(s): R31.29 - Other microscopic hematuria Category: Medical (3) Dysuria: Code(s): R30.0 - Dysuria Category: Medical (4) Recurrent UTI: Code(s): N39.0 - Urinary tract infection, site not specified Category: Medical Plan In office urinalysis results reviewed with the patient today; as noted above; will send for urine culture; will await results for potential treatment. PVR 0 mL Previous microgen results reviewed with the patient today; as noted above. Continue Estrace cream. Start oxybutynin as prescribed. We discussed potential causes for lower urinary tract symptoms patient was experiencing as well as recurrent urinary tract infections. We discussed potential near future in office cystoscopy for further assessment evaluation. We also discussed potential near future methenamine and vitamin-C for suppression Discussed UTI prevention with D mannose supplement, vitamin-C, increasing fluid intake, behavioral therapy with timed voiding, perineal hygiene and postcoital voiding, and management of constipation with stool softeners and increased fiber intake. Follow-up in 1 month with PVR; or sooner with any issues, concerns, and or questions. Orders: Orders Urine Culture Today N39.0 - Urinary tract infection, site not specified AMB Urinalysis Automated Today Z13.9 - Encounter for screening, unspecified AMB Post Void Residual by ultrasound Today R39.9 - Unspecified symptoms and signs involving the genitourinary system Medications: New oxybutynin chloride 5 mg PO Q8H PRN 20 tabs 0RF bladder spasms R33.9 - Retention of urine, unspecified, R39.15 - Urgency of urination phenazopyridine 100 mg PO Q8H 6 doses 6 tabs 0RF M54.50 - Low back pain, unspecified, R31.9 - Hematuria, unspecified Patient Instructions: The patient had an opportunity to ask questions regarding the treatment plan. All questions were answered. Physical exam, labs, and imaging were discussed and reviewed in detail. As well as risks, benefits, and discussion of treatment choices. No major barriers to understanding were identified. The patient expressed understanding and agreement with the above treatment plan. The patient was made aware they should contact our office by phone for worsening of their current condition, the appearance of new symptoms, or with any questions or concerns. Compliance is encouraged with any medications and follow up testing that is ordered. It is a privilege to be allowed the opportunity to participate in? your urological care.? Again, if you have any questions or concerns If you have any questions or concerns please do not hesitate to contact me. The office is [phone]. This note is constructed using voice recognition software. While every effort has been made to ensure accuracy health information manager errors may have been included. Yours sincerely, ANANYA Jaramillo Coding Level of Care Code Est Pt Level 4 (07160) Complex EM visit Add On G2211 Diagnoses Lower urinary tract symptoms R39.9 Microscopic hematuria R31.29 Dysuria R30.0 Recurrent UTI N39.0 CPT Codes Post Residual Void - PVR CPT Code: 85325-[id number] Void Residual by ultrasound ([id number])
--- OUTSIDE RECORDS SUMMARY | 2024-06-08 13:32 | XMS_ITS | Encounter Summary ---
Author Organization [employer] Address 75 [facility] 7t [place] [address] Care Team Providers Care Occupational Therapy Specialist Name Role Phone Jackie Abdi MD Primary Care Provider [phone] Reason for Visit * Reason Onset Date Comments Med Refill 02/26/2023 Encounter Details Date Type Department Care Team ([facility] st Contact Info) Description 02/26/2023 Refill [facility] MED & PEDS [address] [place] [address] Jackie Abdi MD [address] [place] [address] Social History Tobacco Use Types Packs/Day Years [...] [facility] MED & PEDS [address] [place] [address] Jackie Abdi MD [address] [place] [address] documented as of this encounter Visit Diagnoses Not on filedocumented in this encounter Additional Health Concerns Assessment Noted Time PHQ-9 Depression Total Score: 21 023 8:57 AM EDT documented as of this encounter Care Teams Occupational Therapy Specialist Relationship Specialty Start Date End Date Jackie Abdi MD [address] [place] [address] PCP - General Family Medicine 04/29/13 documented as of this encounter
--- OUTSIDE RECORDS SUMMARY | 2024-06-08 13:32 | XMS_ITS | Encounter Summary ---
Author Organization [employer] Address 75 [facility] 7t [place] [address] Care Team Providers Care Silk Snapper Name Role Phone Jackie Abdi MD Primary Care Provider [phone] Reason for Visit * Reason Comments Med Refill Encounter Details Date Type Department Care Team (Late Contact Info) Description 09/18/2022 Refill [facility] MED & PEDS [address] [place], [place] [phone] Ronnell aSnderson MD [address] [place] [address] Mid-back pain, acute Social History Tobacco Use [...] Description 06/21/2024 10:00 AM EDT Office Visit [facility] MED & PEDS [address] [place] [address] Jackie Abdi MD [address] [place] [address] documented as of this encounter Visit Diagnoses Diagnosis Mid-back pain, acute documented in this encounter Additional Health Concerns Assessment Noted Time PHQ-9 Depression Total Score: 21 023 8:57 AM EDT documented as of this encounter Care Teams Silk Snapper Relationship Specialty Start Date End Date Jackie Abdi MD [address] [place] [address] PCP - General Family Medicine 04/29/13 documented as of this encounter
--- OUTSIDE RECORDS SUMMARY | 2024-06-08 13:32 | XMS_ITS | Encounter Summary ---
Author Organization [employer] Address 75 [facility] 7t [place] [address] Care Team Providers Care Pickle Processor Name Role Phone Jackie Abdi MD Primary Care Provider [phone] Reason for Visit * Reason Onset Date Comments call back 06/03/2022 Encounter Details Date Type Department Care Team ([facility] st Contact Info) Description 06/03/2022 Telephone [facility] MEDICINE [address] [place] [address] Jackie Abdi MD [address] [place] [address] call back Social History Tobacco Use Types [...] a call back. Please contact pt at [phone] documented in this encounter Plan of Treatment Upcoming Encounters Date Type Department Care Team ([facility] st Contact Info) Description 06/21/2024 10:00 AM EDT Office Visit [facility] MED & PEDS [address] [place] [address] Jackie Abdi MD [address] [place] [address] documented as of this encounter Visit Diagnoses Not on filedocumented in this encounter Care Teams Pickle Processor Relationship Specialty Start Date End Date Jackie Abdi MD [address] [place] [address] PCP - General Family Medicine 04/29/13 documented as of this encounter
--- OUTSIDE RECORDS SUMMARY | 2024-06-08 13:32 | XMS_ITS | Encounter Summary ---
Author Organization [employer] Address 75 [facility] 7t [place] [address] Care Team Providers Care Professor Of Apologetics Name Role Phone Jackie Abdi MD Primary Care Provider [phone] Encounter Details Date Type Department Care Team (Late Contact Info) Description 08/28/2022 Orders Only [facility] MED & PEDS [address] [place], [place] [phone] Ronnell Sanderson MD [address] [place] [address] Social History Tobacco Use Types Packs/Day Years [...] [facility] [address] [place] [address] Jakcie Abdi MD [address] [place] [address] documented as of this encounter Visit Diagnoses Not on filedocumented in this encounter Additional Health Concerns Assessment Noted Time PHQ-9 Depression Total Score: 21 023 8:57 AM EDT documented as of this encounter Care Teams Professor Of Apologetics Relationship Specialty Start Date End Date Jackie Abdi MD [address] [place] [address] PCP - General Family Medicine 04/29/13 documented as of this encounter
--- OUTSIDE RECORDS SUMMARY | 2024-06-08 13:32 | XMS_ITS | Encounter Summary ---
Author Organization [employer] Address 75 [facility] 7t [place] [address] Care Team Providers Care Cafe Operator Name Role Phone Jackie Abdi MD Primary Care Provider [phone] Reason for Visit * Reason Comments Med Refill Encounter Details Date Type Department Care Team ([facility] st Contact Info) Description 06/01/2024 Refill [facility] MEDICINE [address] [place] [address] Jackie Abdi MD [address] [place] [address] Acute pain of right shoulder Social History [...] [facility] MED & PEDS [address] [place] [address] Jackie Abdi MD [address] [place] [address] documented as of this encounter Visit Diagnoses Diagnosis Acute pain of right shoulder documented in this encounter Additional Health Concerns Assessment Noted Time PHQ-9 Depression Total Score: 14 025 11:23 AM EST documented as of this encounter Care Teams Cafe Operator Relationship Specialty Start Date End Date Jackie Abdi MD [address] [place] [address] PCP - General Family Medicine 04/29/13 documented as of this encounter
--- OUTSIDE RECORDS SUMMARY | 2024-06-08 13:32 | XMS_ITS | Clinical Summary ---
Author Organization [facility] Address [address] [place] [phone] Phone Care Team Providers Care Agricultural Chemist Name Role Phone Jackie Abdi MD Primary Care Provider [phone] Allergies No known active allergies Medications cholecalcifero [...] 2:40 PM EST Office Visit Gastroenterology - [place] [address] [facility] [address] [place] [address] Artis Leyva PA Epigastric pain (Primary Dx); Generalized abdominal pain; Gassiness; Dyspepsia; History of gastric bypass from Last 3 Months Immunizations Name Administration Dates Next Due Tdap Tetanus diptheria acell ular pertussis (Boostrix; Adacel) 7yo and older 01/19/2012 Surgical History Surgery Date Site/Laterality Comments OTHER SURGICAL HISTORY PROCEDURE: [place] ARTHRS AID TIBIAL FRACTURE PROXIMAL UNICONDYLAR CHOLECYSTECTOMY PROCEDURE: [place] LAPAROSCOPY SURG CHOLECYSTECTOMY BUNIONECTOMY PROCEDURE: BUNION SURGERY, SIMPLE REMOVAL SECTION PROCEDURE: [place] DELIVERY ONLY Medical History Medical History Date Comments Hypercholesteremia DX:Hyperchole steremia Class 2 severe obesity due t o excess calories with serious comorbidity and body mass index (BMI) of 35.0 to 35.9 in adult ([facility]) 05/03/2020 DX:Class 2 severe obesity du e to excess calories with serious comorbidity and body mass index (BMI) of 35.0 to 35.9 in adult ([facility]) Gastroesophageal reflux dise ase with [...] Upcoming Encounters Date Type Department Care Team ([facility] st Contact Info) Description 06/16/2024 3:45 PM EDT Office Visit Bariatric Surgery - [place] 175 [facility] [address] [place] [address] Aleksandar Heaton MD 175 [facility] [address] [place] [address] Health Maintenance Due Date Last Done Comments [...] Results * Hepatitis C Screening (09/22/2023) Pathologist Critical access hospital Hepatitis C Screening abstracted Historical Provider HEALTH [...] Maintenance Insurance MEDICAID - [place] Care Teams Agricultural Chemist Relationship Specialty Start Date End Date Jackie Abdi MD [address] [place] [address] PCP - General 10/20/16
--- OUTSIDE RECORDS SUMMARY | 2024-06-08 13:32 | XMS_ITS | Encounter Summary ---
Author Organization [employer] Address 75 [facility] 7t [place] [address] Care Team Providers Care Senior Mainframe Developer Name Role Phone Jackie Abdi MD Primary Care Provider [phone] Reason for Visit * Reason Comments Med Refill Encounter Details Date Type Department Care Team ([facility] st Contact Info) Description 06/06/2024 Refill [facility] MEDICINE 230 [place] [address] Jackie Abdi MD [address] [place] [address] Social History Tobacco Use Types Packs/Day Years [...] [facility] MED & PEDS 505 [place] [address] Jackie Abdi MD 505 [place] [address] documented as of this encounter Visit Diagnoses Not on filedocumented in this encounter Additional Health Concerns Assessment Noted Time PHQ-9 Depression Total Score: 14 025 11:23 AM EST documented as of this encounter Care Teams Senior Mainframe Developer Relationship Specialty Start Date End Date Jackie Abdi MD [address] [place] [address] PCP - General Family Medicine 04/29/13 documented as of this encounter
--- OUTSIDE RECORDS SUMMARY | 2024-06-08 13:32 | XMS_ITS | Encounter Summary ---
Author Organization [facility] Address [address] [place] [address] Care Team Providers Care Medical Management Trainer Name Role Phone Jackie Abdi MD Primary Care Provider [phone] Reason for Visit * Reason Comments Abdominal Pain GI Problem Encounter Details Date Type Department Care Team (Late st Contact Info) Description 06/03/2024 2:40 PM EST Office Visit Gastroenterology - [place] 175 [address] [facility] [address] [place] [phone] Artis Leyva PA [address] [facility] [address] [place] [address] Epigastric pain (Primary Dx); Generalized abdominal pain; [...] sent through Care Everywhere. * Abdominal Pain ([place]) * Dyspepsia ([place]) * Acid-Reducing Medicines: General Info ([place]) * Gas and Bloating ([place]) * Gastritis ([place]) documented in this encounter Ordered Prescriptions Prescription [...] IMAGING: CR SHOULDER RT MIN 2 VIEW [facility] Diagnostic Imaging Department [address] [place] [address] Patient: SADE FRAGA /Age/Sex: 1970 - 53 - F Unit#: [id number] Location/Status: SPDIGEN/REG CLI Mnemonic/Ordering Site: SHOULDRT/SPDI Ordering [...] Otherwise, normal examination, without acute findings. Code [id number] Dictating Physician: SATNAM ESTRADA MD Electronically Signed [...] PM EDT Office Visit Bariatric Surgery - [place] 175 [facility] [address] [place] [phone] Aleksandar Heaton MD 175 [facility] [address] [place] [address] documented as of this encounter Visit Diagnoses [...] documented as of this encounter Care Teams Medical Management Trainer Relationship Specialty Start Date End Date Jackie Abdi MD [address] [place] [address] PCP - General 10/20/16 documented as of this encounter
--- OUTSIDE RECORDS SUMMARY | 2024-06-08 13:32 | XMS_ITS | Clinical Summary ---
Author Organization [facility] Address [address] [place] [address] Care Team Providers Care Visual Merchandising Associate Name Role Phone Jackie Abdi MD Primary Care Provider [phone] Allergies No known active allergies Medications omeprazole [...] [place] Care Teams Visual Merchandising Associate Relationship Specialty Start Date End Date Jackie Abdi MD [address] [place] [address] PCP - General 04/09/20
--- OUTSIDE RECORDS SUMMARY | 2024-06-08 13:32 | XMS_ITS | Encounter Summary ---
Author Organization [employer] Address 75 [facility] 7t [place] [address] Care Team Providers Care Security System Technician Name Role Phone Jackie Abdi MD Primary Care Provider [phone] Reason for Visit * Reason Onset Date Comments Results 04/30/2022 Encounter Details Date Type Department Care Team ([facility] Contact Info) Description 04/30/2022 Telephone [facility] MEDICINE 230 [place] [address] Jackie Abdi MD [address] [place] [address] Results Social History Tobacco Use Types Packs/Day [...] regarding xray results Please contact pt at [phone] documented in this encounter Plan of Treatment Upcoming Encounters Date Type Department Care Team (Late st Contact Info) Description 06/21/2024 10:00 AM EDT Office Visit [facility] CHC MED & PEDS 505 [place] [address] Jackie Abdi MD 505 [place] [address] documented as of this encounter Visit Diagnoses Not on filedocumented in this encounter Care Teams Security System Technician Relationship Specialty Start Date End Date Jackie Abdi MD [address] [place] [address] PCP - General Family Medicine 04/29/13 documented as of this encounter
--- OUTSIDE RECORDS SUMMARY | 2024-06-08 13:32 | XMS_ITS | Encounter Summary ---
Author Organization [employer] Address 75 [facility] 7t [place] [address] Care Team Providers Care Hob Mill Operator Name Role Phone Jackie Abdi MD Primary Care Provider [phone] Reason for Visit * Reason Comments Med Refill Encounter Details Date Type Department Care Team ([facility] st Contact Info) Description 06/08/2023 Refill [facility] MEDICINE 230 [place] [address] Jackie Abdi MD [address] [place] [address] Depressed mood Social History Tobacco Use Types [...] [facility] 505 [place] [address] Jackie Abdi MD 505 [place] [address] documented as of this encounter Visit Diagnoses Diagnosis Depressed mood documented in this encounter Additional Health Concerns Assessment Noted Time PHQ-9 Depression Total Score: 21 023 8:57 AM EDT documented as of this encounter Care Teams Hob Mill Operator Relationship Specialty Start Date End Date Jackie Abdi MD [address] [place] [address] PCP - General Family Medicine 04/29/13 documented as of this encounter
--- OUTSIDE RECORDS SUMMARY | 2024-06-08 13:32 | XMS_ITS | Encounter Summary ---
Author Organization [employer] Address [address] [place] [address] [place] [address] Care Team Providers Care Embedded Systems Engineer Name Role Phone Jackie Abdi MD Primary Care Provider [phone] Reason for Visit * Reason Onset Date Comments Med Refill 12/08/2022 Encounter Details Date Type Department Care Team (Late st Contact Info) Description 12/08/2022 Refill [facility] MED & PEDS 505 [place] [address] Jackie Abdi MD 505 [place] [address] Social History Tobacco Use Types Packs/Day Years [...] [facility] 505 [place] [address] Jackie Abdi MD 505 [place] [address] documented as of this encounter Visit Diagnoses Not on filedocumented in this encounter Additional Health Concerns Assessment Noted Time PHQ-9 Depression Total Score: 21 023 8:57 AM EDT documented as of this encounter Care Teams Embedded Systems Engineer Relationship Specialty Start Date End Date Jackie Abdi MD [address] [place] [address] PCP - General Family Medicine 04/29/13 documented as of this encounter
--- OUTSIDE RECORDS SUMMARY | 2024-06-08 13:32 | XMS_ITS | Encounter Summary ---
Author Organization [employer] [facility] Address [address] [place] [address] 7 [place] [address] Care Team Providers Care Strap Folding Machine Operator Name Role Phone Jackie Abdi MD Primary Care Provider [phone] Reason for Visit * Reason Onset Date Comments Med Refill 12/05/2022 Encounter Details Date Type Department Care Team (Late st Contact Info) Description 12/05/2022 Refill [facility] MED & PEDS 505 [place] [address] Abby Duran MD Social History Tobacco Use [...] 10:00 AM EDT Office Visit [facility] MED & PEDS 505 [place] [address] Jackie Abdi MD 505 [place] [address] documented as of this encounter Visit Diagnoses Not on filedocumented in this encounter Additional Health Concerns Assessment Noted Time PHQ-9 Depression Total Score: 21 023 8:57 AM EDT documented as of this encounter Care Teams Strap Folding Machine Operator Relationship Specialty Start Date End Date Jackie Abdi MD 230 [place] [address] PCP - General Family Medicine 04/29/13 documented as of this encounter
--- OUTSIDE RECORDS SUMMARY | 2024-06-08 13:32 | XMS_ITS | Encounter Summary ---
Author Organization [employer] Address [address] [place] [address] 7t [place] [address] Care Team Providers Care Chha Name Role Phone Jackie Abdi MD Primary Care Provider [phone] Encounter Details Date Type Department Care Team (Late st Contact Info) Description 10/01/2022 Abstract [facility] MEDICINE 230 [place] [address] Jackie Abdi MD 505 [place] [address] Social History Tobacco Use Types Packs/Day Years [...] 10:00 AM EDT Office Visit [facility] MED & PEDS 505 [place] [address] Jackie Abdi MD 505 [place] [address] documented as of this encounter Visit Diagnoses Not on filedocumented in this encounter Additional Health Concerns Assessment Noted Time PHQ-9 Depression Total Score: 21 023 8:57 AM EDT documented as of this encounter Care Teams Chha Relationship Specialty Start Date End Date Jackie Abdi MD 230 [place] [address] PCP - General Family Medicine 04/29/13 documented as of this encounter
--- OUTSIDE RECORDS SUMMARY | 2024-06-08 13:32 | XMS_ITS | Encounter Summary ---
Author Organization [employer] Address 75 [facility] 7t [place] [address] Care Team Providers Care Concrete Spreader Name Role Phone Jackie Abdi MD Primary Care Provider [phone] Encounter Details Date Type Department Care Team ([facility] st Contact Info) Description 03/11/2023 Abstract [facility] 230 [place] [address] Jackie Abdi MD [address] [place] [address] Social History Tobacco Use Types Packs/Day Years [...] [facility] MED & PEDS 505 [place] [address] Jackie Abdi MD 505 [place] [address] documented as of this encounter Visit Diagnoses Not on filedocumented in this encounter Additional Health Concerns Assessment Noted Time PHQ-9 Depression Total Score: 21 023 8:57 AM EDT documented as of this encounter Care Teams Concrete Spreader Relationship Specialty Start Date End Date Jackie Abdi MD [address] [place] [address] PCP - General Family Medicine 04/29/13 documented as of this encounter
--- OUTSIDE RECORDS SUMMARY | 2024-06-08 13:32 | XMS_ITS | Encounter Summary ---
Author Organization [employer] Address 75 [facility] 7t [place] [address] Care Team Providers Care Landfill Gas Technician Name Role Phone Jackie Abdi MD Primary Care Provider [phone] Reason for Visit * Reason Onset Date Comments Nurse Triage 08/03/2023 Encounter Details Date Type Department Care Team ([facility] st Contact Info) Description 08/03/2023 Telephone [facility] MEDICINE 230 [place] [address] Jackie Abdi MD [address] [place] [address] Nurse Triage Social History Tobacco Use Types [...] point. pt states is currently at the [facility] for evaluation. advised to complete the [...] 10:00 AM EDT Office Visit [facility] MED & PEDS 505 [place] [address] Jackie Abdi MD 505 [place] [address] documented as of this encounter Visit Diagnoses Not on filedocumented in this encounter Additional Health Concerns Assessment Noted Time PHQ-9 Depression Total Score: 21 06/26/ 023 8:57 AM EDT documented as of this encounter Care Teams Landfill Gas Technician Relationship Specialty Start Date End Date Jackie Abdi MD [address] [place] [address] PCP - General Family Medicine 04/29/13 documented as of this encounter
--- OUTSIDE RECORDS SUMMARY | 2024-06-08 13:32 | XMS_ITS | Encounter Summary ---
Author Organization [employer] Address [address] [place] [address] 7t [place] [address] Care Team Providers Care Plush Weaver Name Role Phone Jackie Abdi MD Primary Care Provider [phone] Encounter Details Date Type Department Care Team (Late st Contact Info) Description 12/08/2022 Telephone [facility] CHC MED & PEDS 505 [place], [place] [phone] Jackie Abdi MD 505 [place] [address] Social History Tobacco Use Types Packs/Day Years [...] [facility] [address] [place] [address] Jackie Abdi MD [address] [place] [address] documented as of this encounter Visit Diagnoses Not on filedocumented in this encounter Additional Health Concerns Assessment Noted Time PHQ-9 Depression Total Score: 21 023 8:57 AM EDT documented as of this encounter Care Teams Plush Weaver Relationship Specialty Start Date End Date Jackie Abdi MD [address] [place] [address] PCP - General Family Medicine 04/29/13 documented as of this encounter
--- OUTSIDE RECORDS SUMMARY | 2024-06-08 13:32 | XMS_ITS | Encounter Summary ---
Author Organization [employer] Address 75 [facility] 7t [place] [address] Care Team Providers Care Fleet Salesperson Name Role Phone Jackie Abdi MD Primary Care Provider [phone] Reason for Visit * Reason Comments Med Refill Encounter Details Date Type Department Care Team ([facility] st Contact Info) Description 05/08/2024 Refill [facility] MEDICINE 230 [place] [address] Jackie Abdi MD [address] [place] [address] Acute pain of right shoulder Social History [...] [facility] MED & PEDS 505 [place] [address] Jackie Abdi MD 505 [place] [address] documented as of this encounter Visit Diagnoses Diagnosis Acute pain of right shoulder documented in this encounter Additional Health Concerns Assessment Noted Time PHQ-9 Depression Total Score: 14 025 11:23 AM EST documented as of this encounter Care Teams Fleet Salesperson Relationship Specialty Start Date End Date Jackie Abdi MD [address] [place] [address] PCP - General Family Medicine 04/29/13 documented as of this encounter
--- OUTSIDE RECORDS SUMMARY | 2024-06-08 13:32 | XMS_ITS | Encounter Summary ---
Author Organization [employer] Address [address] [place] [address] 7 [place] [address] Care Team Providers Care Pants Busheler Name Role Phone Jackie Abdi MD Primary Care Provider [phone] Reason for Visit * Reason Onset Date Comments Med Refill 10/24/2022 Encounter Details Date Type Department Care Team (Late st Contact Info) Description 10/24/2022 Refill [facility] MEDICINE 230 [place] [address] Jackie Abdi MD 505 [place] [address] Social History Tobacco Use Types Packs/Day Years [...] [facility] 505 [place], [place] [phone] Jackie Abdi MD 505 [place], [place] [phone] documented as of this encounter Visit Diagnoses Not on filedocumented in this encounter Additional Health Concerns Assessment Noted Time PHQ-9 Depression Total Score: 21 023 8:57 AM EDT documented as of this encounter Care Teams Pants Busheler Relationship Specialty Start Date End Date Jackie Abdi MD [address] [place] [address] [place] [address] PCP - General Family Medicine 04/29/13 documented as of this encounter
--- OUTSIDE RECORDS SUMMARY | 2024-06-08 13:32 | XMS_ITS | Encounter Summary ---
Author Organization [employer] Address 75 [facility] 7t [place] [address] Care Team Providers Care Substance Abuse Counselor Name Role Phone Jackie Abdi MD Primary Care Provider [phone] Reason for Visit * Reason Onset Date Comments Appt materials 01/21/2023 Encounter Details Date Type Department Care Team (Late st Contact Info) Description 01/21/2023 Telephone [facility] [address] [place] [address] Sharon Fernandez DMD Appt materials Social History [...] t he electric, gas, oil or water [employer] threatened to shut off services in your [...] Description 06/21/2024 10:00 AM EDT Office Visit [facility] CHC MED & PEDS 505 [place] [address] Jackie Abdi MD 505 [place] [address] documented as of this encounter Visit Diagnoses Not on filedocumented in this encounter Additional Health Concerns Assessment Noted Time PHQ-9 Depression Total Score: 21 023 8:57 AM EDT documented as of this encounter Care Teams Substance Abuse Counselor Relationship Specialty Start Date End Date Jackie Abdi MD [address] [place] [address] PCP - General Family Medicine 04/29/13 documented as of this encounter
--- OUTSIDE RECORDS SUMMARY | 2024-06-08 13:32 | XMS_ITS | Encounter Summary ---
Author Organization [facility] Address [address] [place] [address] [place] [address] Care Team Providers Care Bid Manager Name Role Phone Jackie Abdi MD Primary Care Provider [phone] Encounter Details Date Type Department Care Team (Late st Contact Info) Description 03/18/2022 Orders Only [facility] MED & PEDS 505 [place] [address] Marielos Hooks LPN Social History Tobacco Use [...] [facility] MED & PEDS 505 [place] [address] Jackie Abdi MD 505 [place] [address] documented as of this encounter Visit Diagnoses Not on filedocumented in this encounter Care Teams Bid Manager Relationship Specialty Start Date End Date Jackie Abdi MD [address] [place] [address] PCP - General Family Medicine 04/29/13 documented as of this encounter
--- OUTSIDE RECORDS SUMMARY | 2024-06-08 13:32 | XMS_ITS | Encounter Summary ---
Author Organization [employer] Address 75 [facility] 7t [place] [address] Care Team Providers Care Audio Visual Director Name Role Phone Jackie Abdi MD Primary Care Provider [phone] Encounter Details Date Type Department Care Team (Late Contact Info) Description 06/03/2022 Orders Only [facility] CHC MED & PEDS 505 [place] [address] Kaylin Kaur MD 505 [place] [address] Mid-back pain, acute (Primary Dx) Social History [...] [facility] MED & PEDS 505 [place], [place] [phone] Jackie Abdi MD [address] [place] [address] documented as of this encounter Visit Diagnoses Diagnosis Mid-back pain, acute- Primary documented in this encounter Care Teams Audio Visual Director Relationship Specialty Start Date End Date Jackie Abdi MD [address] [place] [address] PCP - General Family Medicine 04/29/13 documented as of this encounter
--- OUTSIDE RECORDS SUMMARY | 2024-06-08 13:33 | XMS_ITS | Encounter Summary ---
Author Organization [employer] Address 75 [facility] 7t [place] [address] Care Team Providers Care Airport Clerk Name Role Phone Jackie Abdi MD Primary Care Provider [phone] Reason for Visit * Reason Comments Med Refill Encounter Details Date Type Department Care Team ([facility] st Contact Info) Description 11/13/2023 Refill [facility] MEDICINE 230 [place] [address] Jackie Abdi MD [address] [place] [address] Social History Tobacco Use Types Packs/Day Years [...] Description 06/21/2024 10:00 AM EDT Office Visit [facility] CHC MED & PEDS 505 [place] [address] Jackie Abdi MD 505 [place] [address] documented as of this encounter Visit Diagnoses Not on filedocumented in this encounter Additional Health Concerns Assessment Noted Time PHQ-9 Depression Total Score: 21 023 8:57 AM EDT documented as of this encounter Care Teams Airport Clerk Relationship Specialty Start Date End Date Jackie Abdi MD [address] [place] [address] PCP - General Family Medicine 04/29/13 documented as of this encounter
--- OUTSIDE RECORDS SUMMARY | 2024-06-08 13:33 | XMS_ITS | Encounter Summary ---
Author Organization [employer] Address 75 [facility] 7t [place] [address] Care Team Providers Care Head Transfer Clerk Name Role Phone Jackie Abdi MD Primary Care Provider [phone] Reason for Visit * Reason Comments Med Refill Encounter Details Date Type Department Care Team ([facility] st Contact Info) Description 10/23/2023 Refill [facility] CHC MED & PEDS 505 [place], [place] [phone] Jackie Abdi MD 505 [place] [address] Social History Tobacco Use Types Packs/Day Years [...] Office Visit [facility] MED & PEDS 505 [place] [address] Jackie Abdi MD 505 [place] [address] documented as of this encounter Visit Diagnoses Not on filedocumented in this encounter Additional Health Concerns Assessment Noted Time PHQ-9 Depression Total Score: 21 023 8:57 AM EDT documented as of this encounter Care Teams Head Transfer Clerk Relationship Specialty Start Date End Date Jackie Abdi MD [address] [place] [address] PCP - General Family Medicine 04/29/13 documented as of this encounter
--- OUTSIDE RECORDS SUMMARY | 2024-06-08 13:33 | XMS_ITS | Encounter Summary ---
Author Organization [employer] Address 75 [facility] 7t [place] [address] Care Team Providers Care Major Sales Associate Name Role Phone Jackie Abdi MD Primary Care Provider [phone] Reason for Visit * Reason Onset Date Comments knitting machine operator helper 09/09/2023 Encounter Details Date Type Department Care Team (Late st Contact Info) Description 09/09/2023 Telephone [facility] [address] [place] [address] Sharon Fernandez DMD knitting machine operator helper Social History Tobacco Use Types Packs/Day Years [...] t he electric, gas, oil or water [employer] threatened to shut off services in your [...] Patient called in stating hat [facility] [...] [facility] [address] [place] [address] Jackie Abdi MD [address] [place] [address] documented as of this encounter Visit Diagnoses Not on filedocumented in this encounter Additional Health Concerns Assessment Noted Time PHQ-9 Depression Total Score: 21 023 8:57 AM EDT documented as of this encounter Care Teams Major Sales Associate Relationship Specialty Start Date End Date Jackie Abdi MD [address] [place] [address] PCP - General Family Medicine 04/29/13 documented as of this encounter
--- OUTSIDE RECORDS SUMMARY | 2024-06-08 13:33 | XMS_ITS | Clinical Summary ---
Author Organization [employer] Address 75 [facility] 7t [place] [address] Care Team Providers Care Vascular Ultrasound Technologist Name Role Phone Jackie Abdi MD Primary Care Provider [phone] Allergies Active Allergy Reactions Criticality Noted Date Comments Sulfamethoxazole-Trimethoprim Angioedema 2023 Medications Multiple Vitamin (Multi-Vitamin) tablet Take 1 tablet by mouth at bed time. Active cholecalciferol (Vitamin D-3) 1.25 MG (98704 UT) capsule Take 1 capsule by mouth. [...] Type Department Care Team Description 06/06/2024 Refill [facility] [address] [place] [address] Jackie Abdi MD 06/03/2024 Refill [facility] [address] [place] [address] Jackie Abdi MD 06/01/2024 Refill [facility] [address] [place] [address] Jackie Abdi MD Acute pain of right shoulder 05/08/2024 Refill [facility] [address] [place] [address] Jackie Abdi MD Acute pain of right shoulder 04/26/2024 10:00 AM EST Office Visit [facility] [address] [place] [address] Hiren Garcia MD Chronic pain in right shoulder (Primary Dx); Acute bilateral ankle pain 04/22/2024 Orders Only [facility] [address] [place] [address] Pola Maldonado CNM 04/21/2024 2:00 PM EST Office Visit [facility] [address] [place] [address] Pola Maldonado CNM Vaginal discharge (Primary Dx); Atrophic vaginitis; Pain in female genitalia on intercourse; Menopausal syndrome (hot flashes); Screening mammogram for breast cancer 04/21/2024 Outside Procedure [facility] [address] [place] [address] David, An, OD Presbyopia of both eyes (Primary Dx) 04/20/2024 Travel 04/19/2024 3:30 PM EST Office Visit [facility] [address] [place] [address] David, An, OD Hyperopia of both eyes (Primary Dx) 04/19/2024 11:30 AM EST [facility] [address] [place] [address] Jackie Abdi MD Vaginal itching (Primary Dx); Pain in female genitalia on intercourse 04/19/2024 Travel 04/12/2024 Travel 04/08/2024 Telephone [facility] [address] [place] [address] Jackie Abdi MD appt 04/01/2024 Refill [facility] [address] [place], [place] [phone] Jackie Abdi MD 03/25/2024 Orders Only [facility] External Provider, [facility] from Last 3 Months Immunizations [...] the past 12 months, has t he [employer], gas, oil or water company threatened to [...] [facility] [address] [place] [address] Jackie Abdi MD [address] [place] [address] Health Maintenance Due Date Last Done Comments [...] EST Narrative 04/27/2024 9:35 AM EST ? [facility] ?[address] ?[place], [place] [address] ? Ultrasound Report ? Signed ? Patient: Philly,Sade ?MR#: [id number] ?? 4 ? : 1970 ?Acct:[id number] ? Age/Sex: 54 / F ?ADM Date: 04/26/24 ? Loc: HO.US ? Attending Dr: Pola Maldonado CNM ? Ordering Physician: POLA MALDONADO CNM ?? Date of Service: 04/26/24 ?? Procedure(s): US pelvic and transvaginal ?? Accession Number(s): [id number] ? cc: Jackie Abdi MD; POLA MALDONADO [...] DD/ 1615 ? TD/TT: 04/26/24 1623 ? Monotype Keyboard Operator: MSM ? Procedure Note Donotuseinterpreter, Image - 04/27/2024 [place] [address] Ultrasound Report Signed Patient: Gray Fraga#: [id number] 4 : 1970Acct:[id number] Age/Sex: 54 / FADM Date: 04/26/24 Loc: HO.US Attending Dr: Pola Maldonado CNM Ordering Physician: POLA MALDONADO CNM Date of Service: 04/26/24 Procedure(s): US pelvic and transvaginal Accession Number(s): [id number] cc: Jackie Abdi MD; POLA MALDONADO CNM [...] by: Gary Thayer MD 04/27/2024 09:32 AM [facility] Dictated By: Gary Thayer MD Signed By: <Electronically signed by Gary Thayer MD in OV> 04/27/24 0932 DD/ 1615 TD/TT: 04/26/24 1623 Monotype Keyboard Operator: BRAYDON Pola Maldonado CNM IMG US PROCEDURES Edited Result - Final * POCT fern test, vaginal fluid manually resulted (04/21/2024 2:42 PM EST) [facility] Prep Negative Comment:pH 5, neg whiff, neg clue, neg trich, neg wbc, neg yeast, parabasal cells noted Vaginal Fluid Vaginal structure / Unknown 04/21/2024 2:42 PM EST Impressions Pola Maldonado CNM - 04/21/2024 2:42 PM EST Atrophic vaginitis Result [facility] Pola Maldonado CNM POINT OF CARE TEST ENTER/ EDIT ORDERABLES Final Result * (ABNORMAL) Bacterial Vaginosis Panel (04/21/2024 2:24 PM EST) TRICHOMONAS VAGINALIS DETECTION BY PCR NOT DETECTED Not Detect [facility] BACTERIAL VAGINOSIS DETECTION BY PCR NEGATIVE Negative [facility] Comment:The BV organism targ ets [...] GROUP DETECTION BY PCR DETECTED(A) Not Detect [facility] Ofelia glab krusei PCR NOT DETECTED Not Detect [facility] Swab Vaginal structure / Unknown 04/21/2024 2:24 PM EST 04/21/2024 5:25 PM EST Pola Maldonado CNM LAB MICROBIOLOGY - GENERA L ORDERABLES Final Result [facility] [address] [place] [address] [phone] * US Retroperitoneal Complete (03/25/2024 10:07 AM EST) Anatomical Region Laterality Modality Ultrasound 03/25/2024 10:0 7 AM EST Narrative 04/08/2024 9:22 AM EST ? [facility] ?[address] ?[place] [address] ? Ultrasound Report ? Signed ? Patient: Philly,Sade ?MR#: [id number] ?? 4 ? : 1970 ?Acct:[id number] ? Age/Sex: 54 / F ?ADM Date: 03/25/24 ? Loc: HO.US ? Attending Dr: Sarah HARE ? Ordering Physician: Sarah Gomez ?? Date of Service: 03/25/24 ?? Procedure(s): US retroperitoneal comp ?? Accession Number(s): [id number] ? cc: Sarah Gomez; Jackie Abdi MD ? EXAMINATION: ?? US RETROPERITONEAL COMPLETE (RENAL) ? CLINICAL INFORMATION: ?? Urinary tract infection, site not specified. ? COMPARISON: ?? Ultrasound abdomen limited 10/22/2022. ? TECHNIQUE: ?? Real-time imaging of the kidneys and bladder. ? Exam submitted for review 04/08/2024 8:18 AM PEDIATRIC SPEECH THERAPIST. ? FINDINGS: ? RIGHT KIDNEY: 9.7 x [...] DD/ 1007 ? TD/TT: 03/25/24 1020 ? Monotype Keyboard Operator: ? Procedure Note Molly, Image - 04/08/2024 [place] [address] Ultrasound Report Signed Patient: Gray Fraga#: [id number] 4 : 1970Acct:[id number] Age/Sex: 54 / FADM Date: 03/25/24 Loc: HO.US Attending Dr: Sarah HARE Ordering Physician: Sarah Gomez Date of Service: 03/25/24 Procedure(s): US retroperitoneal comp Accession Number(s): [id number] cc: Sarah Gomez; Jackie Abdi MD EXAMINATION: US RETROPERITONEAL COMPLETE (RENAL) CLINICAL INFORMATION: Urinary tract infection, site not specified. COMPARISON: Ultrasound abdomen limited 10/22/2022. TECHNIQUE: Real-time imaging of the kidneys and bladder. Exam submitted for review 04/08/2024 8:18 AM PEDIATRIC SPEECH THERAPIST. FINDINGS: RIGHT KIDNEY: 9.7 x 5.7 x [...] 04/08/24 0919 DD/ 1007 TD/TT: 03/25/24 1020 Monotype Keyboard Operator: [facility] External Provider IMG US PROCEDURES Final Result * Cologuard?? colon cancer screening (02/23/2023 10:44 AM EST) Cologuard Result Negative Negative 03/01/20 3:14 PM EST [facility] (CLIA #:[id number]) Comment: NEGATIVE TEST RESULT. A negative Cologuard [...] cancer. ??Following a negative Cologuard result, the [place] Cancer Society and U.S. Multi-Society Task Force screening guidelines recommend a Cologuard re-screening interval of 3 years. References: [place] [employer] Guideline for Colorectal Cancer Screening: https://www.cancer.org/cancer/dqkpy-vjtpey-hwdphh/jeflerttc-xtjpagyrx-ogqeodq/ac s-rec ommendations.html.; Bean DK, Mitchell GAO, Dank WeberK, Colorectal Cancer Screening: Recommendations for Physicians and Patients from the U.S. Multi-Society Task Force on Colorectal Cancer Screening , Am J Gastroenterology 2017; 112:6151-1610. TEST DESCRIPTION: Composite algorithmic analysis of stool [...] (Javi Frank al, N Engl J Med 2014;370(14):2779-2861.) Cologuard may produce a false negative or false positive result (no colorectal cancer or precancerous polyp present at colonoscopy follow up). A negative Cologuard test result does not guarantee the absence of CRC or advanced adenoma (pre-cancer). The current Cologuard screening interval is every 3 years. ([place] [employer] Society and U.S. Multi-Society Task Force). Cologuard performance data in a 10,000 patient pivotal study using colonoscopy as the reference method can be accessed at the following location: www.[place].DAVIDsTEA/results. Additional description of the Cologuard test process, warnings and precautions can be found at www.EZ2CADrd.DAVIDsTEA. Stool specimen (specimen) 02/23/2023 10:44 AM EST 02/24/2023 1:44 PM EST Jackie Abdi MD LAB MOLECULAR DIAGNOSTICS ORDERA BLES Final Result [facility] (CLIA #:[id number]) [place] [address], * Thinprep TIS PAP And HPV mRNA E6/E7, CT/NG, TRICH (04/08/2022 4:21 PM EST) Clinical Information: SCREENING, PELVIC PAIN [facility] LMP: NONE GIVEN [facility] Prev. PAP: NONE GIVEN [facility] Prev. BX: NONE GIVEN [facility] SOURCE: None given [facility] Statement Of Adequacy: [facility] Comment: Satisfactory for evaluation. Endocervical/transformation zone component present. Age and/or menstrual status not provided Interpretation/Re sult: Negative for intraepithelial lesion or malignancy. [facility] COMMENT: This Pap test has been evaluated with computer assisted technology. [facility] Agricultural Science Professor: Jose ruano [employer] Comment: DMM, CT(ASCP) CT screening location: [address] ??[address] (Always Message) [facility] [employer] Comment: EXPLANATORY NOTE: The Pap is a [...] HPV nRNA E6/E7 Not Detected Not Detected [facility] [employer] Comment: Methodology: Door Captain-Mediated Amplification This assay detects E6/E7 viral messenger RNA (mRNA) from 14 high-risk HPV types (16,18,31,33,35,39,45,51,52,56,58,59,66,68). Cervical sources are required for HPV testing. If a vaginal source from a patient who has had a total hysterectomy with removal of cervix was submitted, please contact the testing laboratory for alternative testing options. For additional information, please refer to http://Dinos Rule.[employer]AL [employer]rapeutics/faq/OTS499r5 (This link if provided for information/ educational purposes only.) Chlamydia trachomatis RNA, TMA, Urogenital NOT DETECTED NOT DETECTED [facility] [employer] [facility] [employer] [facility] Neisseria gonorrhoeae RNA, TMA, Urogenital NOT DETECTED NOT DETECTED [facility] (Always Message) [facility] [employer] Comment: The analytical performance characteristics of this assay, when used to test SurePath(TM) specimens have been determined by [facility]. The modifications have not been cleared or approved by the FDA. This assay has been validated pursuant to the CLIA regulations and is used for clinical purposes. For additional information, please refer to https://Dinos Rule.[employer]/faq/UGV407 (This link is being provided for information/ educational purposes only.) Trichomonas vaginalis, QL, TMA, PAP Vial NOT DETECTED NOT DETECTED [facility] [employer] [facility] [employer] Comment: The analytical performance characteristics of this assay have been determined by [facility]. The modifications have not been cleared or approved by the FDA. This assay has been validated pursuant to the CLIA regulations and is used for clinical purposes. For additional information, please refer to http://Dinos Rule.[employer]/ faq/Trichomonastma (This link is being provided for information/ educational purposes only.) 04/08/2022 4:21 PM EST 04/09/2022 11:04 AM EST Narrative [facility] - 04/14/2022 10:42 AM EST FASTING: UNKNOWN Pola Maldonado CN LAB PATHOLOGY ORDERABLES Final Result [facility] [address] [place] [address], [place] [address] [facility] [address] [facility], (Nl[address]) [place] [address] * HEPATITIS C AB W/REFL TO HCV RNA, QN, PCR (12/12/2020 10:12 AM EDT) HEPATITIS C ANTIBODY NON-REACT COLE NON-REACT COLE [facility] INDEX 0.09 <1.00 [facility] Comment: ?? HCV antibody was non-reactive. There is no laboratory ?? evidence of HCV infection. ?? In most cases, no further action is required. However, if recent HCV exposure is suspected, a test for HCV RNA (test code 50484) is suggested. ?? For additional information please refer to http://Dinos Rule.[employer]/faq/WFN39y6 (This link is being provided for informational/ educational purposes only.) ?? 12/12/2020 10:1 2 AM EDT Hiren Garcia MD HISTORICAL/NON ORDERABLE LABS Fi nal Result [facility] [address] * HIV 1/2 ANTIGEN/ANTIBODY,FOURTH GENERATION W/RFL (12/12/2020 10:12 AM EDT) HIV-1/2 ANTIGEN AND ANTIBODIES, 4TH GENERATION W/ REFLEX NON-REACT COLE NON-REACT COLE [facility] Comment: HIV-1 antigen and HIV-1/HIV-2 [...] ? For additional information please refer to http://education.[employer] Therapeutics/faq/NJB406 (This link is being provided for informational/ educational purposes only.) ? The performance of this assay has not been clinically validated in patients less than 2 years old. ?? 12/12/2020 10:1 2 AM EDT us Hiren Garcia MD LAB BLOOD ORDERABLES Final Resul t [facility] [address] from Last 3 Months or Most Recently Relevant to Health Maintenance Insurance C3 [facility] MEDICAID STAND ADULT Care Teams Vascular Ultrasound Technologist Relationship Specialty Start Date End Date Jackie Abdi MD [address] [place] [address] PCP - General Family Medicine 04/29/13
--- OUTSIDE RECORDS SUMMARY | 2024-06-08 13:33 | XMS_ITS | Encounter Summary ---
Author Organization [employer] Address 75 [facility] 7t [place] [address] Care Team Providers Care Boiler Cleaner Name Role Phone Jackie Abdi MD Primary Care Provider [phone] Reason for Visit * Reason Comments Med Refill Encounter Details Date Type Department Care Team ([facility] st Contact Info) Description 09/01/2023 Refill [facility] [address] [place], [place] [phone] Ronnell Sanderson MD [address] [place] [address] Acute pain of right shoulder Social History [...] 06/21/2024 10:00 AM EDT Office Visit [facility] [address] [place] [address] Jackie Abdi MD [address] [place] [address] documented as of this encounter Visit Diagnoses Diagnosis Acute pain of right shoulder documented in this encounter Additional Health Concerns Assessment Noted Time PHQ-9 Depression Total Score: 21 023 8:57 AM EDT documented as of this encounter Care Teams Boiler Cleaner Relationship Specialty Start Date End Date Jackie Abdi MD [address] [place] [address] PCP - General Family Medicine 04/29/13 documented as of this encounter
--- OUTSIDE RECORDS SUMMARY | 2024-06-08 13:33 | XMS_ITS | Encounter Summary ---
Author Organization [employer] Address 75 [facility] 7t [place] [address] Care Team Providers Care Nurse Sexual Assault Name Role Phone Jackie Abdi MD Primary Care Provider [phone] Reason for Visit * Reason Comments Med Refill Encounter Details Date Type Department Care Team ([facility] st Contact Info) Description 09/16/2023 Refill [facility] [address] [place], [place] [phone] Jackie Abdi MD [address] [place] [address] Acute pain of right shoulder Social History [...] Description 06/21/2024 10:00 AM EDT Office Visit [facility] MED & PEDS [address] [place] [address] Jackie Abid MD [address] [place] [address] documented as of this encounter Visit Diagnoses Diagnosis Acute pain of right shoulder documented in this encounter Additional Health Concerns Assessment Noted Time PHQ-9 Depression Total Score: 21 023 8:57 AM EDT documented as of this encounter Care Teams Nurse Sexual Assault Relationship Specialty Start Date End Date Jackie Abdi MD [address] [place] [address] PCP - General Family Medicine 04/29/13 documented as of this encounter
--- OUTSIDE RECORDS SUMMARY | 2024-06-08 13:33 | XMS_ITS | Encounter Summary ---
Author Organization [employer] Address 75 [facility] 7t [place] [address] Care Team Providers Care Medical Coding Technician Name Role Phone Jackie Abdi MD Primary Care Provider [phone] Reason for Visit * Reason Onset Date Comments Results 08/04/2023 Encounter Details Date Type Department Care Team ([facility] Contact Info) Description 08/04/2023 Telephone [facility] & PEDS [address] [place], [place] [phone] Jackie Abdi MD [address] [place] [address] Results Social History Tobacco Use Types Packs/Day [...] labs. Pt stated these were done by [facility] ED and that they diagnosed pt with [...] and culture Date when done: 08/02 Facility: [facility] Please contact pt at [phone] documented in this encounter Plan of Treatment Upcoming Encounters Date Type Department Care Team (Late st Contact Info) Description 06/21/2024 10:00 AM EDT Office Visit [facility] [address] [place] [address] Jackie Abdi MD [address] [place] [address] documented as of this encounter Visit Diagnoses Not on filedocumented in this encounter Additional Health Concerns Assessment Noted Time PHQ-9 Depression Total Score: 21 06/26/ 023 8:57 AM EDT documented as of this encounter Care Teams Medical Coding Technician Relationship Specialty Start Date End Date Jackie Abdi MD [address] [place] [phone] PCP - General Family Medicine 04/29/13 documented as of this encounter
--- OUTSIDE RECORDS SUMMARY | 2024-06-08 13:33 | XMS_ITS | Encounter Summary ---
Author Organization [employer] Address 75 [facility] 7t [place] [address] Care Team Providers Care Garment Folder Name Role Phone Jackie Abdi MD Primary Care Provider [phone] Reason for Visit * Reason Onset Date Comments Med Refill 11/13/2023 Encounter Details Date Type Department Care Team (Late st Contact Info) Description 11/13/2023 Refill [facility] [address] [place] [address] Jackie Abdi MD [address] [place] [address] Social History Tobacco Use Types Packs/Day Years [...] [facility] [address] [place] [address] Jackie Abdi MD [address] [place] [address] documented as of this encounter Visit Diagnoses Not on filedocumented in this encounter Additional Health Concerns Assessment Noted Time PHQ-9 Depression Total Score: 21 023 8:57 AM EDT documented as of this encounter Care Teams Garment Folder Relationship Specialty Start Date End Date Jackie Abdi MD [address] [place] [address] PCP - General Family Medicine 04/29/13 documented as of this encounter
--- OUTSIDE RECORDS SUMMARY | 2024-06-08 13:33 | XMS_ITS | Encounter Summary ---
Author Organization [employer] Address [address] [facility] [address] [place] [address] Care Team Providers Care Armature Repairer Name Role Phone Jackie Abdi MD Primary Care Provider [phone] Encounter Details Date Type Department Care Team (Late st Contact Info) Description 12/07/2023 Orders Only [facility] [address] [place] [address] [phone] Hiren Garcia MD [address] [place], [place] [phone] Social History Tobacco Use Types Packs/Day Years [...] t he electric, gas, oil or water [employer] threatened to shut off services in your [...] [facility] [address] [place] [address] Jackie Abdi MD [address] [place] [address] documented as of this encounter Procedures Procedure Name Priority Date/Time Associated Diagnosis Comments STRESS TEST WITH MYOCARDIAL PERFUSION Routine 01/01/2024 9:09 AM EDT documented in this encounter Results * Stress test with myocardial perfusion (01/01/2024 9:09 AM EDT) 01/01/2024 9:09 AM EDT Narrative [facility] - 01/04/2024 4:19 PM EDT ? [facility] ?[address] ?[place] [address] ?Nuclear Medicine Report ? Signed ? Patient: [place],Sade ?MR#: [id number] ?? 4 ? : 1970 ?Acct:[id number] ? Age/Sex: 53 / F ?ADM Date: 10/04/24 ? Loc: HO.CARD ? Attending Rod Ricketts MD ? Ordering Physician: Abdelrahman Ricketts MD ?? Date of Service: 01/01/24 ?? Procedure(s): NM cardiolite stress test ?? Accession Number(s): [id number] ? cc: Jackie Abdi MD; Abdelrahman Ricketts [...] DD/ 0909 ? TD/TT: 01/04/24 1200 ? Helicopter Specialist: ? Procedure Note Kaylyn Barnes - 01/04/[address] [place] [address] Nuclear Medicine Report Signed Patient: Gray Fraga#: [id number] 4 : 1970Acct:[id number] Age/Sex: 53 / FADM Date: 01/01/24 Loc: .[facility] Attending Dr: Abdelrahman Ricketts MD Ordering Physician: Abdelrahman Ricketts MD Date of Service: 01/01/24 Procedure(s): NM cardiolite stress test Accession Number(s): [id number] cc: Jackie Abdi MD; Abdelrahman Ricketts MD [...] 01/04/24 1616 DD/ 0909 TD/TT: 01/04/24 1200 Helicopter Specialist: [facility] External Provider CV STRE SS PROCEDURES Final Result [facility] [address] [place] [address] documented in this encounter Visit Diagnoses Not on filedocumented in this encounter Additional Health Concerns Assessment Noted Time PHQ-9 Depression Total Score: 21 023 8:57 AM EDT documented as of this encounter Care Teams Armature Repairer Relationship Specialty Start Date End Date Jackie Abdi MD [address] [place] [address] PCP - General Family Medicine 04/29/13 documented as of this encounter
--- OUTSIDE RECORDS SUMMARY | 2024-06-08 13:33 | XMS_ITS | Encounter Summary ---
Author Organization [employer] Address 75 [facility] 7t [place] [address] Care Team Providers Care Skilled Nursing Professional Name Role Phone Jackie Abdi MD Primary Care Provider [phone] Reason for Visit * Reason Onset Date Comments Referral 08/26/2023 Encounter Details Date Type Department Care Team ([facility] st Contact Info) Description 08/26/2023 Telephone [facility] MEDICINE [address] [place] [address] Jackie Abdi MD [address] [place] [address] Referral Social History Tobacco Use Types Packs/Day [...] EDT Tc from pt was advised by cardiovascular surgical tech office to request new referral due not being seen until 2020. Address: [address] [place] [address] [address] [facility] [address] Facility Name: [facility]. Type of Specialist: Cryogenics Engineer Pt is also requesting referral for a urologist and or medical insurance clerk due to some recent concerns. (Ptwas triaged) If any questions please contact pt at [phone]. documented in this encounter Plan of Treatment Upcoming Encounters Date Type Department Care Team ([facility] st Contact Info) Description 06/21/2024 10:00 AM EDT Office Visit [facility] 505 [place] [address] Jackie bAdi MD 505 [place] [address] documented as of this encounter Visit Diagnoses Not on filedocumented in this encounter Additional Health Concerns Assessment Noted Time PHQ-9 Depression Total Score: 21 023 8:57 AM EDT documented as of this encounter Care Teams Skilled Nursing Professional Relationship Specialty Start Date End Date Jackie Abdi MD 230 [place] [address] PCP - General Family Medicine 04/29/13 documented as of this encounter
--- OUTSIDE RECORDS SUMMARY | 2024-06-08 13:33 | XMS_ITS | Encounter Summary ---
Author Organization [employer] Address 75 [facility] 7t [place] [address] Care Team Providers Care Boat Outfitter Name Role Phone Jackie Abdi MD Primary Care Provider [phone] Reason for Visit * Reason Comments Med Refill Encounter Details Date Type Department Care Team ([facility] st Contact Info) Description 06/03/2024 Refill [facility] MEDICINE 230 [place] [address] Jackie Abdi MD [address] [place] [address] Social History Tobacco Use Types Packs/Day Years [...] [facility] 505 [place] [address] Jackie Abdi MD 505 [place] [address] documented as of this encounter Visit Diagnoses Not on filedocumented in this encounter Additional Health Concerns Assessment Noted Time PHQ-9 Depression Total Score: 14 025 11:23 AM EST documented as of this encounter Care Teams Boat Outfitter Relationship Specialty Start Date End Date Jackie Abdi MD [address] [place] [phone] PCP - General Family Medicine 04/29/13 documented as of this encounter
== END 2024-06-08 12:09 | disposition home or self-care (01) ==
LOC: HO.HUSH 11:29
PROVIDERS: PCP Student in an Organized Health Care Education/Training Program; Visit Provider Nurse Practitioner Family
DX: R39.9 Unspecified symptoms and signs involving the genitourinary system (principal); R31.29 Other microscopic hematuria; R30.0 Dysuria; N39.0 Urinary tract infection, site not specified; Z13.9 Encounter for screening, unspecified
CPT/HCPCS: 99214

== ENCOUNTER 2024-06-08 11:28 | Outpatient (REF) | payer MEDICAID, SELFPAY ==
--- OUTSIDE RECORDS SUMMARY | 2024-06-08 14:07 | XMS_ITS | Encounter Summary ---
Author Organization [facility] Address [address] [place] [address] Care Team Providers Care Supervisor Shipfitters Name Role Phone Jackie Abdi MD Primary Care Provider [phone] Reason for Visit * Reason Comments Abdominal Pain GI Problem Encounter Details Date Type Department Care Team (Late st Contact Info) Description 06/03/2024 2:40 PM EST Office Visit [facility] - [place] [address] [facility] [address] [place] [phone] Artis Leyva PA [address] [facility] [address] [place] [address] Epigastric pain (Primary Dx); Generalized abdominal pain; [...] sent through Care Everywhere. * Abdominal Pain ([place]guillan) * Dyspepsia ([place]guillan) * Acid-Reducing Medicines: General Info ([place]guillan) * Gas and Bloating ([place]guillan) * Gastritis ([place]guillan) documented in this encounter Ordered Prescriptions Prescription [...] IMAGING: CR SHOULDER RT MIN 2 VIEW [facility] Diagnostic Imaging Department [address] [place] [address] Patient: SADE FRAGA /Age/Sex: 1970 - 53 - F Unit#: [id number] Location/Status: SPDIGEN/REG CLI Mnemonic/Ordering Site: SHOULDRT/SPDI Ordering [...] Otherwise, normal examination, without acute findings. Code 73010 Dictating Physician: SATNAM ESTRADA MD Electronically Signed [...] PM EDT Office Visit Bariatric Surgery - [place] 175 [facility] [address] [place] [phone] Aleksandar Heaton MD 175 [facility] [address] [place] [address] documented as of this encounter Visit Diagnoses [...] as of this encounter Care Teams Supervisor Shipfitters Relationship Specialty Start Date End Date Jackie Abdi MD [address] [place] [address] PCP - General 10/20/16 documented as of this encounter
--- OUTSIDE RECORDS SUMMARY | 2024-06-08 14:07 | XMS_ITS | Encounter Summary ---
Author Organization [employer] Address 75 [facility] 7t [place] [address] Care Team Providers Care Actuarial Director Name Role Phone Jackie Abdi MD Primary Care Provider [phone] Reason for Visit * Reason Comments Med Refill Encounter Details Date Type Department Care Team ([facility] st Contact Info) Description 06/01/2024 Refill [facility] MEDICINE 230 [place] [address] Jackie Abdi MD [address] [place] [address] Acute pain of right shoulder Social History [...] [facility] 505 [place] [address] Jackie Abdi MD 505 [place] [address] documented as of this encounter Visit Diagnoses Diagnosis Acute pain of right shoulder documented in this encounter Additional Health Concerns Assessment Noted Time PHQ-9 Depression Total Score: 14 025 11:23 AM EST documented as of this encounter Care Teams Actuarial Director Relationship Specialty Start Date End Date Jackie Abdi MD [address] [place] [address] PCP - General Family Medicine 04/29/13 documented as of this encounter
--- OUTSIDE RECORDS SUMMARY | 2024-06-08 14:07 | XMS_ITS | Encounter Summary ---
Author Organization [employer] Address 75 [facility] 7t [place] [address] Care Team Providers Care Piece Presser Name Role Phone Jackie Abdi MD Primary Care Provider Reason for Visit * Reason Onset Date Comments Appt materials 01/21/2023 Encounter Details Date Type Department Care Team (Late st Contact Info) Description 01/21/2023 Telephone [facility] [address] [place] [address] Sharon Fernandez DMD Appt materials Social History [...] t he electric, gas, oil or water [employer] threatened to shut off services in your [...] 10:00 AM EDT Office Visit [facility] MED & PEDS 505 [place] [address] Jackie Abdi MD 505 [place] [address] documented as of this encounter Visit Diagnoses Not on filedocumented in this encounter Additional Health Concerns Assessment Noted Time PHQ-9 Depression Total Score: 21 023 8:57 AM EDT documented as of this encounter Care Teams Piece Presser Relationship Specialty Start Date End Date Jackie Abdi MD [address] [place] [address] PCP - General Family Medicine 04/29/13 documented as of this encounter
--- OUTSIDE RECORDS SUMMARY | 2024-06-08 14:07 | XMS_ITS | Encounter Summary ---
Author Organization [employer] Address [address] [place] [address] 7t [place] [address] Care Team Providers Care Port Surveyor Name Role Phone Jackie Abdi MD Primary Care Provider [phone] Encounter Details Date Type Department Care Team (Late st Contact Info) Description 12/08/2022 Telephone [facility] MED & PEDS 505 [place], [place] [phone] Jackie Abdi MD 505 [place] [address] Social History Tobacco Use Types Packs/Day Years [...] Description 06/21/2024 10:00 AM EDT Office Visit [facility] CHC MED & PEDS [address] [place] [address] Jackie Abdi MD [address] [place] [address] documented as of this encounter Visit Diagnoses Not on filedocumented in this encounter Additional Health Concerns Assessment Noted Time PHQ-9 Depression Total Score: 21 023 8:57 AM EDT documented as of this encounter Care Teams Port Surveyor Relationship Specialty Start Date End Date Jackie Abdi MD [address] [place] [address] PCP - General Family Medicine 04/29/13 documented as of this encounter
--- OUTSIDE RECORDS SUMMARY | 2024-06-08 14:07 | XMS_ITS | Encounter Summary ---
Author Organization [employer] Address [address] [place] [address] [place], [place] [address] Care Team Providers Care Diagnostic Radiologic Technologist Name Role Phone Jackie Abdi MD Primary Care Provider [phone] Reason for Visit * Reason Onset Date Comments Med Refill 12/08/2022 Encounter Details Date Type Department Care Team (Late st Contact Info) Description 12/08/2022 Refill [facility] 505 [place] [address] Jackie Abdi MD 505 [place] [address] Social History Tobacco Use Types Packs/Day Years [...] [facility] 505 [place] [address] Jackie Abdi MD 505 [place] [address] documented as of this encounter Visit Diagnoses Not on filedocumented in this encounter Additional Health Concerns Assessment Noted Time PHQ-9 Depression Total Score: 21 023 8:57 AM EDT documented as of this encounter Care Teams Diagnostic Radiologic Technologist Relationship Specialty Start Date End Date Jackie Abdi MD [address] [place] [address] PCP - General Family Medicine 04/29/13 documented as of this encounter
--- OUTSIDE RECORDS SUMMARY | 2024-06-08 14:07 | XMS_ITS | Encounter Summary ---
Author Organization [employer] Address 75 [facility] 7t [place] [address] Care Team Providers Care Sheep Shearer Name Role Phone Jackie Abdi MD Primary Care Provider [phone] Encounter Details Date Type Department Care Team (Late Contact Info) Description 06/03/2022 Orders Only [facility] CHC MED & PEDS 505 [place] [address] Kaylin Kaur MD 505 [place] [address] Mid-back pain, acute (Primary Dx) Social History [...] [facility] 505 [place], [place] [phone] Jackie Abdi MD [address] [place] [address] documented as of this encounter Visit Diagnoses Diagnosis Mid-back pain, acute- Primary documented in this encounter Care Teams Sheep Shearer Relationship Specialty Start Date End Date Jackie Abdi MD [address] [place] [address] PCP - General Family Medicine 04/29/13 documented as of this encounter
--- OUTSIDE RECORDS SUMMARY | 2024-06-08 14:07 | XMS_ITS | Encounter Summary ---
Author Organization [employer] Address 75 [facility] 7t [place] [address] Care Team Providers Care Physics Technical Officer Name Role Phone Jackie Abdi MD Primary Care Provider [phone] Reason for Visit * Reason Onset Date Comments Med Refill 02/26/2023 Encounter Details Date Type Department Care Team ([facility] st Contact Info) Description 02/26/2023 Refill [facility] MED & PEDS 505 [place] [address] Jackie Abdi MD 505 [place] [address] Social History Tobacco Use Types Packs/Day Years [...] Visit [facility] MED & PEDS 505 [place] [address] Jackie Abdi MD 505 [place] [address] documented as of this encounter Visit Diagnoses Not on filedocumented in this encounter Additional Health Concerns Assessment Noted Time PHQ-9 Depression Total Score: 21 023 8:57 AM EDT documented as of this encounter Care Teams Physics Technical Officer Relationship Specialty Start Date End Date Jackie Abdi MD [address] [place] [address] PCP - General Family Medicine 04/29/13 documented as of this encounter
--- OUTSIDE RECORDS SUMMARY | 2024-06-08 14:07 | XMS_ITS | Encounter Summary ---
Author Organization [employer] Address 75 [facility] 7t [place] [address] Care Team Providers Care Customer Support Analyst Name Role Phone Jackie Abdi MD Primary Care Provider [phone] Reason for Visit * Reason Onset Date Comments Results 04/30/2022 Encounter Details Date Type Department Care Team ([facility] Contact Info) Description 04/30/2022 Telephone [facility] MEDICINE 230 [place] [address] Jackie Abdi MD [address] [place] [address] Results Social History Tobacco Use Types Packs/Day [...] regarding xray results Please contact pt at [phone] documented in this encounter Plan of Treatment Upcoming Encounters Date Type Department Care Team (Late st Contact Info) Description 06/21/2024 10:00 AM EDT Office Visit [facility] CHC MED & PEDS 505 [place] [address] Jackie Abdi MD 505 [place] [address] documented as of this encounter Visit Diagnoses Not on filedocumented in this encounter Care Teams Customer Support Analyst Relationship Specialty Start Date End Date Jackie Abdi MD [address] [place] [address] PCP - General Family Medicine 04/29/13 documented as of this encounter
--- OUTSIDE RECORDS SUMMARY | 2024-06-08 14:07 | XMS_ITS | Encounter Summary ---
Author Organization [employer] Address 75 [facility] 7t [place] [address] Care Team Providers Care Balancing Machine Operator Name Role Phone Jackie Abdi MD Primary Care Provider [phone] Reason for Visit * Reason Comments Med Refill Encounter Details Date Type Department Care Team ([facility] st Contact Info) Description 05/08/2024 Refill [facility] MEDICINE 230 [place] [address] Jackie Abdi MD [address] [place] [address] Acute pain of right shoulder Social History [...] Description 06/21/2024 10:00 AM EDT Office Visit [facility] MED & PEDS 505 [place] [address] Jackie Abdi MD 505 [place] [address] documented as of this encounter Visit Diagnoses Diagnosis Acute pain of right shoulder documented in this encounter Additional Health Concerns Assessment Noted Time PHQ-9 Depression Total Score: 14 025 11:23 AM EST documented as of this encounter Care Teams Balancing Machine Operator Relationship Specialty Start Date End Date Jackie Abdi MD [address] [place] [address] PCP - General Family Medicine 04/29/13 documented as of this encounter
--- OUTSIDE RECORDS SUMMARY | 2024-06-08 14:07 | XMS_ITS | Clinical Summary ---
Author Organization 175 [facility] Address [address] [place] [phone] Phone Care Team Providers Care Nut Culler Name Role Phone Jackie Abdi MD Primary Care Provider [phone] Allergies No known active allergies Medications cholecalcifero [...] 2:40 PM EST Office Visit Gastroenterology - [place] [address] [facility] [address] [place] [address] Artis Leyva PA Epigastric pain (Primary Dx); Generalized abdominal pain; Gassiness; Dyspepsia; History of gastric bypass from Last 3 Months Immunizations Name Administration Dates Next Due Tdap Tetanus diptheria acell ular pertussis (Boostrix; Adacel) 7yo and older 01/19/2012 Surgical History Surgery Date Site/Laterality Comments OTHER SURGICAL HISTORY PROCEDURE: [place] ARTHRS AID TIBIAL FRACTURE PROXIMAL UNICONDYLAR CHOLECYSTECTOMY PROCEDURE: [place] LAPAROSCOPY SURG CHOLECYSTECTOMY BUNIONECTOMY PROCEDURE: BUNION SURGERY, SIMPLE REMOVAL SECTION PROCEDURE: [place] DELIVERY ONLY Medical History Medical History Date Comments Hypercholesteremia DX:Hyperchole steremia Class 2 severe obesity due t o excess calories with serious comorbidity and body mass index (BMI) of 35.0 to 35.9 in adult ([facility]) 05/03/2020 DX:Class 2 severe obesity du e to excess calories with serious comorbidity and body mass index (BMI) of 35.0 to 35.9 in adult ([facility]) Gastroesophageal reflux dise ase with [...] Upcoming Encounters Date Type Department Care Team ([facility] st Contact Info) Description 06/16/2024 3:45 PM EDT Office Visit Bariatric Surgery - [place] 175 [facility] [address] [place] [address] Aleksandar Heaton MD 175 [facility] [address] [place] [address] Health Maintenance Due Date Last Done Comments [...] Results * Hepatitis C Screening (09/22/2023) Pathologist [facility] Hepatitis C Screening abstracted Historical Provider [...] Maintenance Insurance MEDICAID - [place] Care Teams Nut Culler Relationship Specialty Start Date End Date Jackie Abdi MD [address] [place] [id number] PCP - General 10/20/16
--- OUTSIDE RECORDS SUMMARY | 2024-06-08 14:07 | XMS_ITS | Encounter Summary ---
Author Organization [employer] Address 75 [facility] 7t [place] [address] Care Team Providers Care Sap Payroll Consultant Name Role Phone Jackie Abdi MD Primary Care Provider [phone] Reason for Visit * Reason Comments Med Refill Encounter Details Date Type Department Care Team ([facility] st Contact Info) Description 06/08/2023 Refill [facility] MEDICINE 230 [place] [address] Jackie Abdi MD [address] [place] [address] Depressed mood Social History Tobacco Use Types [...] Office Visit [facility] MED & [facility]EDS 505 [place] [address] Jackie Abdi MD 505 [place] [address] documented as of this encounter Visit Diagnoses Diagnosis Depressed mood documented in this encounter Additional Health Concerns Assessment Noted Time PHQ-9 Depression Total Score: 21 023 8:57 AM EDT documented as of this encounter Care Teams Sap Payroll Consultant Relationship Specialty Start Date End Date Jackie Abdi MD [address] [place] [address] PCP - General Family Medicine 04/29/13 documented as of this encounter
--- OUTSIDE RECORDS SUMMARY | 2024-06-08 14:07 | XMS_ITS | Encounter Summary ---
Author Organization [facility] [facility] Address [address] [place] [address] 7 [place] [address] Care Team Providers Care Automotive Service Cashier Name Role Phone Jackie Abdi MD Primary Care Provider Reason for Visit * Reason Onset Date Comments Med Refill 12/05/2022 Encounter Details Date Type Department Care Team (Late st Contact Info) Description 12/05/2022 Refill [facility] MED & PEDS 505 [place] [address] Abby Duran MD Social History Tobacco Use [...] [facility] 505 [place] [address] Jackie Abdi MD 505 [place] [address] documented as of this encounter Visit Diagnoses Not on filedocumented in this encounter Additional Health Concerns Assessment Noted Time PHQ-9 Depression Total Score: 21 023 8:57 AM EDT documented as of this encounter Care Teams Automotive Service Cashier Relationship Specialty Start Date End Date Jackie Abdi MD 230 [place] [address] PCP - General Family Medicine 04/29/13 documented as of this encounter
--- OUTSIDE RECORDS SUMMARY | 2024-06-08 14:07 | XMS_ITS | Encounter Summary ---
Author Organization [employer] Address 75 [facility] 7t [place] [address] Care Team Providers Care Greige Goods Examiner Name Role Phone Jackie Abdi MD Primary Care Provider [phone] Reason for Visit * Reason Onset Date Comments Nurse Triage 08/03/2023 Encounter Details Date Type Department Care Team ([facility] st Contact Info) Description 08/03/2023 Telephone [facility] MEDICINE 230 [place] [address] Jackie Abdi MD [address] [place] [address] Nurse Triage Social History Tobacco Use Types [...] point. pt states is currently at the [facility] for evaluation. advised to complete the [...] [facility] 505 [place] [address] Jackie Abdi MD 505 [place] [address] documented as of this encounter Visit Diagnoses Not on filedocumented in this encounter Additional Health Concerns Assessment Noted Time PHQ-9 Depression Total Score: 21 06/26/ 023 8:57 AM EDT documented as of this encounter Care Teams Greige Goods Examiner Relationship Specialty Start Date End Date Jackie Abdi MD [address] [place] [address] PCP - General Family Medicine 04/29/13 documented as of this encounter
--- OUTSIDE RECORDS SUMMARY | 2024-06-08 14:07 | XMS_ITS | Encounter Summary ---
Author Organization [facility] [facility] Address [address] [place] [address] [place] [address] Care Team Providers Care Medical Reviewer Name Role Phone Jackie Abdi MD Primary Care Provider [phone] Encounter Details Date Type Department Care Team (Late st Contact Info) Description 03/18/2022 Orders Only [facility]ED[facility] 505 [place] [address] Marielos Hooks LPN Social History Tobacco Use [...] [facility] 505 [place] [address] Jackie Abdi MD 505 [place] [address] documented as of this encounter Visit Diagnoses Not on filedocumented in this encounter Care Teams Medical Reviewer Relationship Specialty Start Date End Date Jackie Abdi MD [address] [place] [address] PCP - General Family Medicine 04/29/13 documented as of this encounter
--- OUTSIDE RECORDS SUMMARY | 2024-06-08 14:07 | XMS_ITS | Clinical Summary ---
Author Organization [facility] Facility Address [address] [place] [address] Care Team Providers Care District Manager Primary Care Sales Name Role Phone Jackie Abdi MD Primary Care Provider [phone] Allergies No known active allergies Medications omeprazole [...] Insurance [place] Care Teams District Manager Primary Care Sales Relationship Specialty Start Date End Date Jackie Abdi MD [address] [place] [address] PCP - General 04/09/20
--- OUTSIDE RECORDS SUMMARY | 2024-06-08 14:07 | XMS_ITS | Encounter Summary ---
Author Organization [employer] Address 75 [facility] 7t [place] [address] Care Team Providers Care Vice President Of Communications Name Role Phone Jackie Abdi MD Primary Care Provider [phone] Reason for Visit * Reason Onset Date Comments call back 06/03/2022 Encounter Details Date Type Department Care Team ([facility] st Contact Info) Description 06/03/2022 Telephone [facility] MEDICINE 230 [place] [address] Jackie Abdi MD [address] [place] [address] call back Social History Tobacco Use Types [...] a call back. Please contact pt at [phone] documented in this encounter Plan of Treatment Upcoming Encounters Date Type Department Care Team ([facility] st Contact Info) Description 06/21/2024 10:00 AM EDT Office Visit [facility] 505 [place] [address] Jackie Abdi MD 505 [place] [address] documented as of this encounter Visit Diagnoses Not on filedocumented in this encounter Care Teams Vice President Of Communications Relationship Specialty Start Date End Date Jackie Abdi MD [address] [place] [address] PCP - General Family Medicine 04/29/13 documented as of this encounter
--- OUTSIDE RECORDS SUMMARY | 2024-06-08 14:07 | XMS_ITS | Encounter Summary ---
Author Organization [employer] Address [address] [place] [address] 7 [place] [address] Care Team Providers Care Ecological Risk Assessor Name Role Phone Jackie Abdi MD Primary Care Provider [phone] Reason for Visit * Reason Onset Date Comments Med Refill 10/24/2022 Encounter Details Date Type Department Care Team (Late st Contact Info) Description 10/24/2022 Refill [facility] MEDICINE [address] [place] [address] Jackie Abdi MD 505 [place] [address] Social History Tobacco Use Types Packs/Day Years [...] Description 06/21/2024 10:00 AM EDT Office Visit [facility] PEDS 505 [place], [place] [phone] Jackie Abdi MD 505 [place], [place] [phone] documented as of this encounter Visit Diagnoses Not on filedocumented in this encounter Additional Health Concerns Assessment Noted Time PHQ-9 Depression Total Score: 21 023 8:57 AM EDT documented as of this encounter Care Teams Ecological Risk Assessor Relationship Specialty Start Date End Date Jackie Abdi MD [address] [place] [address] [place] [address] PCP - General Family Medicine 04/29/13 documented as of this encounter
--- OUTSIDE RECORDS SUMMARY | 2024-06-08 14:07 | XMS_ITS | Encounter Summary ---
Author Organization [employer] Address [address] [employer] [address] [employer] 7t [place] [address] Care Team Providers Care Manager Hair Name Role Phone Jackie Abdi MD Primary Care Provider [phone] Encounter Details Date Type Department Care Team ([facility] st Contact Info) Description 03/11/2023 [facility] [address] [place] [address] Jackie Abdi MD [address] [place] [address] Social History Tobacco Use Types Packs/Day Years [...] [facility] 505 [place] [address] Jackie Abdi MD 505 [place] [address] documented as of this encounter Visit Diagnoses Not on filedocumented in this encounter Additional Health Concerns Assessment Noted Time PHQ-9 Depression Total Score: 21 023 8:57 AM EDT documented as of this encounter Care Teams Manager Hair Relationship Specialty Start Date End Date Jackie Abdi MD [address] [place] [address] PCP - General Family Medicine 04/29/13 documented as of this encounter
--- OUTSIDE RECORDS SUMMARY | 2024-06-08 14:08 | XMS_ITS | Encounter Summary ---
Author Organization [employer] Address [address] [facility] 7t [place] [address] Care Team Providers Care Dulite Machine Bluer Name Role Phone Jackie Abdi MD Primary Care Provider Reason for Visit * Reason Comments Med Refill Encounter Details Date Type Department Care Team ([facility] st Contact Info) Description 11/13/2023 Refill [facility] MEDICINE 230 [place] [address] Jackie Abdi MD [address] [place] [address] Social History Tobacco Use Types Packs/Day Years [...] 06/21/2024 10:00 AM EDT Office Visit [facility] MED & PEDS 505 [place] [address] Jackie Abdi MD 505 [place] [address] documented as of this encounter Visit Diagnoses Not on filedocumented in this encounter Additional Health Concerns Assessment Noted Time PHQ-9 Depression Total Score: 21 023 8:57 AM EDT documented as of this encounter Care Teams Dulite Machine Bluer Relationship Specialty Start Date End Date Jackie Abdi MD [address] [place] [address] PCP - General Family Medicine 04/29/13 documented as of this encounter
--- OUTSIDE RECORDS SUMMARY | 2024-06-08 14:08 | XMS_ITS | Clinical Summary ---
Author Organization [employer] Address [address] 7t [place] [address] Care Team Providers Care Field Pipelines Supervisor Name Role Phone Jackie Abdi MD Primary Care Provider [phone] Allergies Active Allergy Reactions Criticality Noted Date Comments Sulfamethoxazole-Trimethoprim Angioedema 2023 Medications Multiple Vitamin (Multi-Vitamin) tablet Take 1 tablet by mouth at bed time. Active cholecalciferol (Vitamin D-3) 1.25 MG (21115 UT) capsule Take 1 capsule by mouth. [...] Type Department Care Team Description 06/06/2024 Refill [facility] MEDICINE [address] [place] [address] Jackie Abdi MD 06/03/2024 Refill [facility] [address] [place] [address] Jackie Abdi MD 06/01/2024 Refill [facility] [address] [place] [address] Jackie Abdi MD Acute pain of right shoulder 05/08/2024 Refill [facility] [address] [place] [address] Jackie Abdi MD Acute pain of right shoulder 04/26/2024 10:00 AM EST Office Visit [facility] [address] [place] [address] Hiren Garcia MD Chronic pain in right shoulder (Primary Dx); Acute bilateral ankle pain 04/22/2024 Orders Only [facility] [address] [place] [address] Pola Maldonado CNM 04/21/2024 2:00 PM EST Office Visit [facility] [address] [place] [address] Pola Maldonado CNM Vaginal discharge (Primary Dx); Atrophic vaginitis; Pain in female genitalia on intercourse; Menopausal syndrome (hot flashes); Screening mammogram for breast cancer 04/21/2024 Outside Procedure [facility] [address] [place] [address] David, An, OD Presbyopia of both eyes (Primary Dx) 04/20/2024 Travel 04/19/2024 3:30 PM EST Office Visit [facility] [address] [place] [address] David, An, OD Hyperopia of both eyes (Primary Dx) 04/19/2024 11:30 AM EST [facility] [address] [place] [address] Jackie Abdi MD Vaginal itching (Primary Dx); Pain in female genitalia on intercourse 04/19/2024 Travel 04/12/2024 Travel 04/08/2024 Telephone [facility] [address] [place] [address] Jackie Abdi MD appt 04/01/2024 Refill [facility] [address] [place], [place] [phone] Jackie Abdi MD 03/25/2024 Orders Only [facility] External Provider, [facility] from Last 3 Months Immunizations Name [...] the past 12 months, has t he [employer], gas, oil or water company threatened to [...] [facility] [address] [place] [address] Jackie Abdi MD 505 [place] [address] Health Maintenance Due Date Last Done Comments [...] EST Narrative 04/27/2024 9:35 AM EST ? [facility] ?[address] ?[place], [place] [address] ? Ultrasound Report ? Signed ? Patient: Philly,Sade ?MR#: [id number] ?? 4 ? : 1970 ?Acct:[id number] ? Age/Sex: 54 / F ?ADM Date: 04/26/24 ? Loc: HO.US ? Attending Dr: Pola Maldonado CNM ? Ordering Physician: POLA MALDONADO CNM ?? Date of Service: 04/26/24 ?? Procedure(s): US pelvic and transvaginal ?? Accession Number(s): [id number] ? cc: Jackie Abdi MD; POLA MALDONADO [...] DD/ 1615 ? TD/TT: 04/26/24 1623 ? Reinforced Concrete Inspector: MSM ? Procedure Note Donotuseinterpreter, Image - 04/27/2024 [place] [address] Ultrasound Report Signed Patient: Gray Fraga#: [id number] 4 : 1970Acct:[id number] Age/Sex: 54 / FADM Date: 04/26/24 Loc: HO.US Attending Dr: Pola Maldonado CNM Ordering Physician: POLA MALDONADO CNM Date of Service: 04/26/24 Procedure(s): US pelvic and transvaginal Accession Number(s): [id number] cc: Jackie Abdi MD; POLA MALDONADO CNM [...] by: Gary Thayer MD 04/27/2024 09:32 AM [facility] Dictated By: Gary Thayer MD Signed By: <Electronically signed by Gary Thayer MD in OV> 04/27/24 0932 DD/ 1615 TD/TT: 04/26/24 1623 Reinforced Concrete Inspector: BRAYDON Pola Maldonado CNM IMG US PROCEDURES Edited Result - Final * POCT fern test, vaginal fluid manually resulted (04/21/2024 2:42 PM EST) MISSAEL Prep Negative Comment:pH 5, neg whiff, neg clue, neg trich, neg wbc, neg yeast, parabasal cells noted Vaginal Fluid Vaginal structure / Unknown 04/21/2024 2:42 PM EST Impressions Pola Maldonado CNM - 04/21/2024 2:42 PM EST Atrophic vaginitis Result [facility] Pola Maldonado CNM POINT OF CARE TEST ENTER/ EDIT ORDERABLES Final Result * (ABNORMAL) Bacterial Vaginosis Panel (04/21/2024 2:24 PM EST) TRICHOMONAS VAGINALIS DETECTION BY PCR NOT DETECTED Not Detect [facility] BACTERIAL VAGINOSIS DETECTION BY PCR NEGATIVE Negative [facility] Comment:The BV organism targ ets of [...] GROUP DETECTION BY PCR DETECTED(A) Not Detect [facility] Ofelia glab krusei PCR NOT DETECTED Not Detect [facility] Swab Vaginal structure / Unknown 04/21/2024 2:24 PM EST 04/21/2024 5:25 PM EST Pola Maldonado CNM LAB MICROBIOLOGY - GENERA L ORDERABLES Final Result [facility] [address] [place] [address] [phone] * US Retroperitoneal Complete (03/25/2024 10:07 AM EST) Anatomical Region Laterality Modality Ultrasound 03/25/2024 10:0 7 AM EST Narrative 04/08/2024 9:22 AM EST ? [facility] ?[address] ?[place] [address] ? Ultrasound Report ? Signed ? Patient: Philly,Sade ?MR#: [id number] ?? 4 ? : 1970 ?Acct:[id number] ? Age/Sex: 54 / F ?ADM Date: 03/25/24 ? Loc: HO.US ? Attending Dr: Sarah HARE ? Ordering Physician: Sarah Gomez ?? Date of Service: 03/25/24 ?? Procedure(s): US retroperitoneal comp ?? Accession Number(s): [id number] ? cc: Sarah Gomez; Jackie Abdi MD ? EXAMINATION: ?? US RETROPERITONEAL COMPLETE (RENAL) ? CLINICAL INFORMATION: ?? Urinary tract infection, site not specified. ? COMPARISON: ?? Ultrasound abdomen limited 10/22/2022. ? TECHNIQUE: ?? Real-time imaging of the kidneys and bladder. ? Exam submitted for review 04/08/2024 8:18 AM BUSHER HELPER. ? FINDINGS: ? RIGHT KIDNEY: 9.7 x [...] DD/ 1007 ? TD/TT: 03/25/24 1020 ? Reinforced Concrete Inspector: ? Procedure Note Molly, Image - 04/08/2024 [place] [address] Ultrasound Report Signed Patient: Gray Fraga#: [id number] 4 : 1970Acct:[id number] Age/Sex: 54 / FADM Date: 03/25/24 Loc: HO.US Attending Dr: Sarah HARE Ordering Physician: Sarah Gomez Date of Service: 03/25/24 Procedure(s): US retroperitoneal comp Accession Number(s): [id number] cc: Sarah Gomez; Jackie Abdi MD EXAMINATION: US RETROPERITONEAL COMPLETE (RENAL) CLINICAL INFORMATION: Urinary tract infection, site not specified. COMPARISON: Ultrasound abdomen limited 10/22/2022. TECHNIQUE: Real-time imaging of the kidneys and bladder. Exam submitted for review 04/08/2024 8:18 AM BUSHER HELPER. FINDINGS: RIGHT KIDNEY: 9.7 x 5.7 x [...] 04/08/24 0919 DD/ 1007 TD/TT: 03/25/24 1020 Reinforced Concrete Inspector: [facility] External Provider IMG US PROCEDURES Final Result * Cologuard?? colon cancer screening (02/23/2023 10:44 AM EST) Cologuard Result Negative Negative 03/01/20 3:14 PM EST [facility] (CLIA #:[id number]) Comment: NEGATIVE TEST RESULT. A negative Cologuard [...] cancer. ??Following a negative Cologuard result, the [place] Cancer Society and U.S. Multi-Society Task Force screening guidelines recommend a Cologuard re-screening interval of 3 years. References: [place] [employer] Guideline for Colorectal Cancer Screening: https://www.cancer.org/cancer/rftpq-uhhlel-otdykl/gxubipgqn-zjoypniue-gdzdnbf/ac s-rec ommendations.html.; Bean DK, Mitchell GAO, Dank WeberK, Colorectal Cancer Screening: Recommendations for Physicians and Patients from the U.S. Multi-Society Task Force on Colorectal Cancer Screening , Am J Gastroenterology 2017; 112:7619-8973. TEST DESCRIPTION: Composite algorithmic analysis of stool [...] (Javi Frank al, N Engl J Med 2014;370(14):7066-0287.) Cologuard may produce a false negative or false positive result (no colorectal cancer or precancerous polyp present at colonoscopy follow up). A negative Cologuard test result does not guarantee the absence of CRC or advanced adenoma (pre-cancer). The current Cologuard screening interval is every 3 years. ([place] Cancer Society and U.S. Multi-Society Task Force). Cologuard performance data in a 10,000 patient pivotal study using colonoscopy as the reference method can be accessed at the following location: www.Reaction.[employer]/results. Additional description of the Cologuard test process, warnings and precautions can be found at www.[employer].Harper [employer]ive. Stool specimen (specimen) 02/23/2023 10:44 AM EST 02/24/2023 1:44 PM EST Jackie Abdi MD LAB MOLECULAR DIAGNOSTICS ORDERA BLES Final Result [facility] (CLIA #:[id number]) [place] [address], * Thinprep TIS PAP And HPV mRNA E6/E7, CT/NG, TRICH (04/08/2022 4:21 PM EST) Clinical Information: SCREENING, PELVIC PAIN [facility] [facility] LMP: NONE GIVEN [facility] [facility] Prev. PAP: NONE GIVEN [facility] [facility] Prev. BX: NONE GIVEN [facility] SOURCE: None given [facility] Statement Of Adequacy: [facility] Comment: Satisfactory for evaluation. Endocervical/transformation zone component present. Age and/or menstrual status not provided Interpretation/Re sult: Negative for intraepithelial lesion or malignancy. [facility] COMMENT: This Pap test has been evaluated with computer assisted technology. [facility] Clothing Man: Jose ruano [employer] [place] [facility] Comment: DMM, CT(ASCP) CT screening location: [address] ??[address] (Always Message) [facility] [place] [facility] Comment: EXPLANATORY NOTE: The Pap is a [...] HPV nRNA E6/E7 Not Detected Not Detected [facility] [place] [facility] Comment: Methodology: Linen Clerk-Mediated Amplification This assay detects E6/E7 viral messenger RNA (mRNA) from 14 high-risk HPV types (16,18,31,33,35,39,45,51,52,56,58,59,66,68). Cervical sources are required for HPV testing. If a vaginal source from a patient who has had a total hysterectomy with removal of cervix was submitted, please contact the testing laboratory for alternative testing options. For additional information, please refer to http://[employer].KeenSkim/faq/YTP028u8 (This link if provided for information/ educational purposes only.) Chlamydia trachomatis RNA, TMA, Urogenital NOT DETECTED NOT DETECTED [facility] [place] [facility] Neisseria gonorrhoeae RNA, TMA, Urogenital NOT DETECTED NOT DETECTED [facility] (Always Message) [facility] [place] [facility] Comment: The analytical performance characteristics of this assay, when used to test SurePath(TM) specimens have been determined by [facility]. The modifications have not been cleared or approved by the FDA. This assay has been validated pursuant to the CLIA regulations and is used for clinical purposes. For additional information, please refer to https://[employer].KeenSkim/faq/QWJ810 (This link is being provided for information/ educational purposes only.) Trichomonas vaginalis, QL, TMA, PAP Vial NOT DETECTED NOT DETECTED [facility] [place] [facility] Comment: The analytical performance characteristics of this assay have been determined by [facility]. The modifications have not been cleared or approved by the FDA. This assay has been validated pursuant to the CLIA regulations and is used for clinical purposes. For additional information, please refer to http://[employer].KeenSkim/ faq/Trichomonastma (This link is being provided for information/ educational purposes only.) 04/08/2022 4:21 PM EST 04/09/2022 11:04 AM EST Narrative [facility] - 04/14/2022 10:42 AM EST FASTING: UNKNOWN Pola Maldonado CN LAB PATHOLOGY ORDERABLES Final Result [facility] [address] [place] [address], [place] [address] [facility] [address] [facility], (Nl[address]) [place] [address] * HEPATITIS C AB W/REFL TO HCV RNA, QN, PCR (12/12/2020 10:12 AM EDT) HEPATITIS C ANTIBODY NON-REACT COLE NON-REACT COLE [employer] [facility] INDEX 0.09 <1.00 [facility] Comment: ?? HCV antibody was non-reactive. There is no laboratory ?? evidence of HCV infection. ?? In most cases, no further action is required. However, if recent HCV exposure is suspected, a test for HCV RNA (test code 03819) is suggested. ?? For additional information please refer to http://[employer].KeenSkim/faq/KRY93p8 (This link is being provided for informational/ educational purposes only.) ?? 12/12/2020 10:1 2 AM EDT Hiren Garcia MD HISTORICAL/NON ORDERABLE LABS Fi nal Result [facility] [address] * HIV 1/2 ANTIGEN/ANTIBODY,FOURTH GENERATION W/RFL (12/12/2020 10:12 AM EDT) HIV-1/2 ANTIGEN AND ANTIBODIES, 4TH GENERATION W/ REFLEX NON-REACT COLE NON-REACT COLE [facility] Comment: HIV-1 antigen and HIV-1/HIV-2 [...] ? For additional information please refer to http://education.KeenSkim/faq/PXJ556 (This link is being provided for informational/ educational purposes only.) ? The performance of this assay has not been clinically validated in patients less than 2 years old. ?? 12/12/2020 10:1 2 AM EDT us Hiren Garcia MD LAB BLOOD ORDERABLES Final Resul t [facility] [address] from Last 3 Months or Most Recently Relevant to Health Maintenance Insurance C3 [facility] STAND ADULT Care Teams Field Pipelines Supervisor Relationship Specialty Start Date End Date Jackie Abdi MD [address] [place] [address] PCP - General Family Medicine 04/29/13
--- OUTSIDE RECORDS SUMMARY | 2024-06-08 14:08 | XMS_ITS | Encounter Summary ---
Author Organization [employer] Address [address] [facility] 7t [place] [address] Care Team Providers Care Child Welfare Director Name Role Phone Jackie Abdi MD Primary Care Provider [phone] Reason for Visit * Reason Comments Med Refill Encounter Details Date Type Department Care Team ([facility] st Contact Info) Description 06/03/2024 Refill [facility] MEDIC[facility] [address] [place] [address] Jackie Abdi MD [address] [place] [address] Social History Tobacco Use Types Packs/Day Years [...] [facility] 505 [place] [address] Jackie Abdi MD 505 [place] [address] documented as of this encounter Visit Diagnoses Not on filedocumented in this encounter Additional Health Concerns Assessment Noted Time PHQ-9 Depression Total Score: 14 025 11:23 AM EST documented as of this encounter Care Teams Child Welfare Director Relationship Specialty Start Date End Date Jackie Abdi MD [address] [place] [address] PCP - General Family Medicine 04/29/13 documented as of this encounter
--- OUTSIDE RECORDS SUMMARY | 2024-06-08 14:08 | XMS_ITS | Encounter Summary ---
Author Organization [employer] Address [address] [facility] 7t [place] [address] Care Team Providers Care Scrub Technician Name Role Phone Jackie Abdi MD Primary Care Provider [phone] Reason for Visit * Reason Onset Date Comments Results 08/04/2023 Encounter Details Date Type Department Care Team ([facility] Contact Info) Description 08/04/2023 Telephone [facility] [address] [place], [place] [phone] Jackie Abdi MD 505 [place] [address] Results Social History Tobacco Use Types Packs/Day [...] Pt stated these were done by [facility] and that they diagnosed pt with [...] culture Date when done: 08/02 Facility: [facility] Please contact pt at [phone] documented in this encounter Plan of Treatment Upcoming Encounters Date Type Department Care Team (Late st Contact Info) Description 06/21/2024 10:00 AM EDT Office Visit [facility] [address] [place] [address] Jackie Abdi MD [address] [place] [address] documented as of this encounter Visit Diagnoses Not on filedocumented in this encounter Additional Health Concerns Assessment Noted Time PHQ-9 Depression Total Score: 21 06/26/ 023 8:57 AM EDT documented as of this encounter Care Teams Scrub Technician Relationship Specialty Start Date End Date Jackie Abdi MD [address] [place] [phone] PCP - General Family Medicine 04/29/13 documented as of this encounter
--- OUTSIDE RECORDS SUMMARY | 2024-06-08 14:08 | XMS_ITS | Encounter Summary ---
Author Organization [employer] Address [address] [facility] [address] 7t [place] [address] Care Team Providers Care Topology Professor Name Role Phone Jackie Abdi MD Primary Care Provider [phone] Encounter Details Date Type Department Care Team (Late st Contact Info) Description 12/07/2023 Orders Only [facility] [address] [place] [phone] Hiren Garcia MD 230 [place], [place] [phone] Social History Tobacco Use Types Packs/Day Years [...] t he electric, gas, oil or water [employer] threatened to shut off services in your [...] 10:00 AM EDT Office Visit [facility]S [address] [place] [address] Jackie Abdi MD [address] [place] [address] documented as of this encounter Procedures Procedure Name Priority Date/Time Associated Diagnosis Comments STRESS TEST WITH MYOCARDIAL PERFUSION Routine 01/01/2024 9:09 AM EDT documented in this encounter Results * Stress test with myocardial perfusion (01/01/2024 9:09 AM EDT) 01/01/2024 9:09 AM EDT Narrative [facility] - 01/04/2024 4:19 PM EDT ? [facility] ?[address] ?[place] [address] ?Nuclear Medicine Report ? Signed ? Patient: Philly,Sade ?MR#: [id number] ?? 4 ? : 1970 ?Acct:[id number] ? Age/Sex: 53 / F ?ADM Date: 10/04/24 ? Loc: HO.CARD ? Attending Rod Ricketts MD ? Ordering Physician: Abdelrahman Ricketts MD ?? Date of Service: 01/01/24 ?? Procedure(s): NM cardiolite stress test ?? Accession Number(s): [id number] ? cc: Jackie Abdi MD; Abdelrahman Ricketts [...] DD/ 0909 ? TD/TT: 01/04/24 1200 ? Manufacturing Quality Manager: ? Procedure Note Kaylyn Barnes - 01/04/[address] [place] [address] Nuclear Medicine Report Signed Patient: Gray Fraga#: [id number] 4 : 1970Acct:[id number] Age/Sex: 53 / FADM Date: 01/01/24 Loc: .[facility] Attending Dr: Abdelrahman Ricketts MD Ordering Physician: Abdelrahman Ricketts MD Date of Service: 01/01/24 Procedure(s): NM cardiolite stress test Accession Number(s): [id number] cc: Jackie Abdi MD; Abdelrahman Ricketts MD [...] 01/04/24 1616 DD/ 0909 TD/TT: 01/04/24 1200 Manufacturing Quality Manager: [facility] External Provider CV STRE SS PROCEDURES Final Result [facility] [address] [place] [address] documented in this encounter Visit Diagnoses Not on filedocumented in this encounter Additional Health Concerns Assessment Noted Time PHQ-9 Depression Total Score: 21 023 8:57 AM EDT documented as of this encounter Care Teams Topology Professor Relationship Specialty Start Date End Date Jackie Abdi MD [address] [place] [address] PCP - General Family Medicine 04/29/13 documented as of this encounter
--- OUTSIDE RECORDS SUMMARY | 2024-06-08 14:08 | XMS_ITS | Encounter Summary ---
Author Organization [employer] Address 75 [facility] 7t [place] [address] Care Team Providers Care Veterans Rehabilitation Counselor Name Role Phone Jackie Abdi MD Primary Care Provider [phone] Reason for Visit * Reason Comments Med Refill Encounter Details Date Type Department Care Team ([facility] st Contact Info) Description 09/16/2023 Refill [facility] CHC MED & PEDS [address] [place], [place] [phone] Jackie Abdi MD 505 [place] [address] Acute pain of right shoulder Social History [...] 10:00 AM EDT Office Visit [facility] MED & PEDS [address] [place] [address] Jackie Abdi MD [address] [place] [address] documented as of this encounter Visit Diagnoses Diagnosis Acute pain of right shoulder documented in this encounter Additional Health Concerns Assessment Noted Time PHQ-9 Depression Total Score: 21 023 8:57 AM EDT documented as of this encounter Care Teams Veterans Rehabilitation Counselor Relationship Specialty Start Date End Date Jackie Abdi MD [address] [place] [address] PCP - General Family Medicine 04/29/13 documented as of this encounter
--- OUTSIDE RECORDS SUMMARY | 2024-06-08 14:08 | XMS_ITS | Encounter Summary ---
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 CHC ADULT DENTAL [address] [place] [address] Sharon Fernandez DMD wafer fab technician Social History Tobacco Use Types Packs/Day Years [...] t he electric, gas, oil or water [email or web address] threatened to shut off services in your [...] Patient called in stating hat [facility] where she can [facility] [...] AM EDT Office Visit [facility] CHC MED & PEDS [address] [place] [address] Jackie Abdi MD 505 [place] [address] documented as of this encounter Visit Diagnoses Not on filedocumented in this encounter Additional Health Concerns Assessment Noted Time PHQ-9 Depression Total Score: 21 023 8:57 AM EDT documented as of this encounter Care Teams Maintainer [employer]er And Waterworks Relationship Specialty Start Date End Date Jackie Abdi MD [address] [place] [address] PCP - General Family Medicine 04/29/13 documented as of this encounter
--- OUTSIDE RECORDS SUMMARY | 2024-06-08 14:08 | XMS_ITS | Encounter Summary ---
Author Organization [employer] Address 75 [facility] 7t [place] [address] Care Team Providers Care Stablehand Name Role Phone Jackie Abdi MD Primary Care Provider [phone] Encounter Details Date Type Department Care Team (Late Contact Info) Description 08/28/2022 Orders Only [facility] MED & PEDS 505 [place], [place] [phone] Ronnell Sanderson MD 505 [place] [address] Social History Tobacco Use Types Packs/Day Years [...] [facility] [address] [place] [address] Jackie Abdi MD [address] [place] [address] documented as of this encounter Visit Diagnoses Not on filedocumented in this encounter Additional Health Concerns Assessment Noted Time PHQ-9 Depression Total Score: 21 023 8:57 AM EDT documented as of this encounter Care Teams Stablehand Relationship Specialty Start Date End Date Jackie Abdi MD [address] [place] [address] PCP - General Family Medicine 04/29/13 documented as of this encounter
--- OUTSIDE RECORDS SUMMARY | 2024-06-08 14:08 | XMS_ITS | Encounter Summary ---
Author Organization [employer] Address [address] [place] [address] 7[address] [place] [address] Care Team Providers Care Milk Drier Name Role Phone Jackie Abdi MD Primary Care Provider Encounter Details Date Type Department Care Team (Late st Contact Info) Description 10/01/[address] [facility] MEDICINE [address] [place] [address] Jackie Abdi MD 505 [place] [address] Social History Tobacco Use Types Packs/Day Years [...] Description 06/21/2024 10:00 AM EDT Office Visit [facility] CHC MED & PEDS 505 [place] [address] Jackie Abdi MD 505 [place] [address] documented as of this encounter Visit Diagnoses Not on filedocumented in this encounter Additional Health Concerns Assessment Noted Time PHQ-9 Depression Total Score: 21 023 8:57 AM EDT documented as of this encounter Care Teams Milk Drier Relationship Specialty Start Date End Date Jackie Abdi MD 230 [place] [address] PCP - General Family Medicine 04/29/13 documented as of this encounter
--- OUTSIDE RECORDS SUMMARY | 2024-06-08 14:08 | XMS_ITS | Encounter Summary ---
Author Organization [employer] Address 75 [facility] 7t [place] [address] Care Team Providers Care Agency Owner Name Role Phone Jackie Abdi MD Primary Care Provider [phone] Reason for Visit * Reason Comments Med Refill Encounter Details Date Type Department Care Team ([facility] st Contact Info) Description 09/01/2023 Refill [facility] CHC MED & PEDS 505 [place], [place] [phone] Ronnell Sanderson MD 505 [place] [address] Acute pain of right shoulder Social History [...] - [facility]EDS 505 [place] [address] Jackie Abdi MD 505 [place] [address] documented as of this encounter Visit Diagnoses Diagnosis Acute pain of right shoulder documented in this encounter Additional Health Concerns Assessment Noted Time PHQ-9 Depression Total Score: 21 023 8:57 AM EDT documented as of this encounter Care Teams Agency Owner Relationship Specialty Start Date End Date Jackie Abdi MD [address] [place] [address] PCP - General Family Medicine 04/29/13 documented as of this encounter
--- OUTSIDE RECORDS SUMMARY | 2024-06-08 14:08 | XMS_ITS | Encounter Summary ---
Author Organization [employer] Address 75 [facility] 7t [place] [address] Care Team Providers Care Title Assistant Name Role Phone Jackie Abdi MD Primary Care Provider [phone] Reason for Visit * Reason Onset Date Comments Med Refill 11/13/2023 Encounter Details Date Type Department Care Team (Late st Contact Info) Description 11/13/2023 Refill [facility] MEDICINE [address] [place] [address] Jackie Abdi MD [address] [place] [address] Social History Tobacco Use Types Packs/Day Years [...] Description 06/21/2024 10:00 AM EDT Office Visit [facility] MED & PEDS 505 [place] [address] Jackie Abdi MD 505 [place] [address] documented as of this encounter Visit Diagnoses Not on filedocumented in this encounter Additional Health Concerns Assessment Noted Time PHQ-9 Depression Total Score: 21 023 8:57 AM EDT documented as of this encounter Care Teams Title Assistant Relationship Specialty Start Date End Date Jackie Abdi MD 230 [place] [address] PCP - General Family Medicine 04/29/13 documented as of this encounter
--- OUTSIDE RECORDS SUMMARY | 2024-06-08 14:08 | XMS_ITS | Encounter Summary ---
Author Organization [employer] Address 75 [facility] 7t [place] [address] Care Team Providers Care Inspector Fuel Hose Name Role Phone Jackie Abdi MD Primary Care Provider [phone] Reason for Visit * Reason Onset Date Comments Referral 08/26/2023 Encounter Details Date Type Department Care Team ([facility] st Contact Info) Description 08/26/2023 Telephone [facility] MEDICINE [address] [place] [address] Jackie Abdi MD [address] [place] [address] Referral Social History Tobacco Use Types Packs/Day [...] EDT Tc from pt was advised by [facility] to request new referral due not being seen until 2020. Address: [address] [place] [address] 3rd [facility] [address] Facility Name: [facility]. Type of Specialist: Analytical Clerk Pt is also requesting referral for a urologist and or graphic artist due to some recent concerns. (Ptwas triaged) If any questions please contact pt at [phone]. documented in this encounter Plan of Treatment Upcoming Encounters Date Type Department Care Team ([facility] st Contact Info) Description 06/21/2024 10:00 AM EDT Office Visit [facility] MED & PEDS 505 [place] [address] Jackie Abdi MD 505 [place] [address] documented as of this encounter Visit Diagnoses Not on filedocumented in this encounter Additional Health Concerns Assessment Noted Time PHQ-9 Depression Total Score: 21 023 8:57 AM EDT documented as of this encounter Care Teams Inspector Fuel Hose Relationship Specialty Start Date End Date Jackie Abdi MD [address] [place] [address] PCP - General Family Medicine 04/29/13 documented as of this encounter
--- OUTSIDE RECORDS SUMMARY | 2024-06-08 14:08 | XMS_ITS | Encounter Summary ---
Author Organization [employer] Address 75 [facility] 7t [place] [address] Care Team Providers Care Material Man Name Role Phone Jackie Abdi MD Primary Care Provider [phone] Reason for Visit * Reason Comments Med Refill Encounter Details Date Type Department Care Team ([facility] st Contact Info) Description 06/06/2024 Refill [facility] MEDICINE [address] [place] [address] Jackie Abdi MD [address] [place] [address] Social History Tobacco Use Types Packs/Day Years [...] [facility] MED & PEDS 505 [place] [address] Jackie Abdi MD 505 [place] [address] documented as of this encounter Visit Diagnoses Not on filedocumented in this encounter Additional Health Concerns Assessment Noted Time PHQ-9 Depression Total Score: 14 025 11:23 AM EST documented as of this encounter Care Teams Material Man Relationship Specialty Start Date End Date Jackie Abdi MD [address] [place] [address] PCP - General Family Medicine 04/29/13 documented as of this encounter
--- OUTSIDE RECORDS SUMMARY | 2024-06-08 14:08 | XMS_ITS | Encounter Summary ---
Author Organization [employer] Address 75 [facility] 7t [place] [address] Care Team Providers Care Roll Scale Worker Name Role Phone Jackie Abdi MD Primary Care Provider [phone] Reason for Visit * Reason Comments Med Refill Encounter Details Date Type Department Care Team ([facility] st Contact Info) Description 10/23/[address] [facility] CHC MED & PEDS 505 [place], [place] [phone] Jackie Abdi MD 505 [place] [address] Social History Tobacco Use Types Packs/Day Years [...] - [facility] [address] [place] [address] Jackie Abdi MD 505 [place] [address] documented as of this encounter Visit Diagnoses Not on filedocumented in this encounter Additional Health Concerns Assessment Noted Time PHQ-9 Depression Total Score: 21 023 8:57 AM EDT documented as of this encounter Care Teams Roll Scale Worker Relationship Specialty Start Date End Date Jackie Abdi MD [address] [place] [address] PCP - General Family Medicine 04/29/13 documented as of this encounter
--- OUTSIDE RECORDS SUMMARY | 2024-06-08 14:08 | XMS_ITS | Encounter Summary ---
Author Organization [employer] Address 75 [facility] 7t [place] [address] Care Team Providers Care Tubing Machine Tender Name Role Phone Jackie Abdi MD Primary Care Provider [phone] Reason for Visit * Reason Comments Med Refill Encounter Details Date Type Department Care Team (Late Contact Info) Description 09/18/2022 Refill [facility] CHC MED & PEDS [address] [place], [place] [phone] Ronnell Sanderson MD 505 [place] [address] Mid-back pain, acute Social History Tobacco Use [...] 06/21/2024 10:00 AM EDT Office Visit [facility] CHC MED & PEDS [address] [place] [address] Jackie Abdi MD 505 [place] [address] documented as of this encounter Visit Diagnoses Diagnosis Mid-back pain, acute documented in this encounter Additional Health Concerns Assessment Noted Time PHQ-9 Depression Total Score: 21 023 8:57 AM EDT documented as of this encounter Care Teams Tubing Machine Tender Relationship Specialty Start Date End Date Jackie Abdi MD [address] [place] [address] PCP - General Family Medicine 04/29/13 documented as of this encounter
== END 2024-06-08 11:29 | disposition home or self-care (01) ==
LOC: HO.LNP 11:28
PROVIDERS: PCP Student in an Organized Health Care Education/Training Program; Visit Provider Nurse Practitioner Family
DX: N39.0 Urinary tract infection, site not specified (principal); R39.9 Unspecified symptoms and signs involving the genitourinary system; R31.29 Other microscopic hematuria; R30.0 Dysuria
CPT/HCPCS: 51798; 81003; 87086; 87088; 87186; 99212

== ENCOUNTER 2024-06-23 16:21 | Outpatient (REF) | payer MEDICAID, SELFPAY | END 2024-06-23 16:22 | disposition home or self-care (01) | LOC: HO.HHCLNP 16:21 | PROVIDERS: Visit Provider Family Medicine | DX: J02.9 Acute pharyngitis, unspecified (principal) | CPT/HCPCS: 87070 ==

== ENCOUNTER 2024-06-29 09:36 | Outpatient (REF) | payer MEDICAID, SELFPAY ==
--- NOTE | ~2024-06-29 | US_ITS ---
EXAMINATION: US THYROID HISTORY: ? THYROID SWELLING TECHNIQUE: Real-time grayscale ultrasound imaging was performed and images were reviewed. COMPARISON: There are no prior studies for comparison. FINDINGS: SIZE: The right thyroid lobe measures 4.9 x 1.6 x 1.4 cm. The left thyroid lobe measures 4.3 x 1.1 x 1.7 cm. The isthmus measures 4 mm. FLOW: Flow to the gland is increased. ECHOGENICITY: The echotexture of the gland is heterogeneous. NODULES: Multiple subcentimeter nodules are noted in both thyroid lobes as described below: Nodule #: 1 Location: Right upper pole measuring 10 x 9 x 11 mm. Shape: Wider than tall (0 points) Margins: Smooth (0 points) Echotexture: Hypoechoic (2 points) Composition: Solid (2 points) Calcifications: None (0 points) Total points: 4 TIRADS: TR4: Moderately suspicious. Nodule #: 2 Location: Midportion of the right thyroid lobe measuring 8 x 7 x 7 mm. Shape: Wider than tall (0 points) Margins: Smooth (0 points) Echotexture: Very hypoechoic (3 points) Composition: Solid (2 points) Calcifications: None (0 points) Total points: 5 TIRADS: TR4: Moderately suspicious. Nodule #: 3 Location: Lower pole of the right thyroid lobe measuring 7 x 4 x 6 mm. Shape: Wider than tall (0 points) Margins: Smooth (0 points) Echotexture: Very hypoechoic (3 points) Composition: Solid (2 points) Calcifications: None (0 points) Total points: 5 TIRADS: TR4: Moderately suspicious. Nodule #: 4 Location: Midportion of the left thyroid lobe measuring 9 x 5 x 6 mm. Shape: Wider than tall (0 points) Margins: Smooth (0 points) Echotexture: Very hypoechoic (3 points) Composition: Solid (2 points) Calcifications: None (0 points) Total points: 5 TIRADS: TR4: Moderately suspicious. Nodule #: 5 Location: Midportion of the left thyroid lobe measuring 6 x 4 x 5 mm. Shape: Wider than tall (0 points) Margins: Smooth (0 points) Echotexture: Hypoechoic (2 points) Composition: Solid (2 points) Calcifications: None (0 points) Total points: 4 TIRADS: TR4: Moderately suspicious. US/US thyroid IMPRESSION: Multinodular thyroid gland as described above. No nodule warrants fine-needle aspiration at this time. ACR TI-RADS Guidelines TR1 (0 points): Benign, No follow-up or biopsy required TR2 (2 points): Not Suspicious, No biopsy or follow up indicated TR3 (3 points): Mildly Suspicious, FNA if >= 2.5 cm, Follow if >= 1.5 cm TR4 (4-6 points): Moderately Suspicious, FNA if >= 1.5 cm, Follow if >= 1.0 cm TR5 (>=7 points): Highly Suspicious, FNA if >= 1.0 cm, Follow if >= 0.5 cm Electronically signed by: Vamsi Canales MD 06/29/2024 11:48 AM EDT
--- OUTSIDE RECORDS SUMMARY | 2024-06-29 10:47 | XMS_ITS | Encounter Summary ---
Author Organization [employer] Address 75 [facility] 7t [place] [address] Care Team Providers Care Television Repairman Name Role Phone Jackie Abdi MD Primary Care Provider [phone] Reason for Visit * Reason Onset Date Comments Transition Of Care (Tcm) 06/23/2024 Encounter Details Date Type Department Care Team ([facility] st Contact Info) Description 06/23/2024 Telephone [facility] CHC MED & PEDS 505 [place], [place] [phone] Jackie Abdi MD [address] [place] [address] Transition Of Care (Tcm) Social History Tobacco Use Types Packs/Day Years [...] housing situation today? I have keyon andrade 06/21/[address] you li ve. Do you have problems with any of the following? None of the above 06/21/2024 Food Insecurity Answer Date Recorded Within the past 12 months, y ou worried that your food would run out before you got money to buy more: Never True 06/21/2024 Within the past 12 months,th e food you bought just didn't last and you didn't have enough money to get more: Never True Transportation Answer Date Recorded In the past 12 months, has l ack of transportation kept you from medical appts, meetings, work or from getting things needed for daily living? No 06/21/2024 Utilities Answer Date Recorded In the past 12 months, has t he electric, gas, oil or water company threatened to shut off services in your home? No 06/21/2024 Depression Answer Date Recorded Patient Health Questionnaire-2 Score 6 04/19/2024 Internet Access Answer Date Recorded Internet Access Q1 No 06/21/2024 Internet Access Q2 I do not want or need it 05/29 Comments No Sex and Gender Information Value Date Recorded Sex Assigned at Female 01/27/2022 10:21 AM EDT Legal Sex Female 10:21 AM EDT Gender Identity Female 01/27/2022 10:21 AM EDT Sexual Orientation Straight 06/27/2022 9: 00 AM EDT documented as of this encounter Miscellaneous Notes * Telephone Encounter - Charlene Campbell MA - 06/23/2024 11:[address] Abdi request telehealth appt was canceled and scheduled today at the walk-in center for testing. documented in this encounter Plan of Treatment Upcoming Encounters Date Type Department Care Team (Late st Contact Info) Description 09/21/2024 10:45 AM EDT Office Visit [facility] MED & PEDS [address] [place] [address] Jackie Abdi MD [address] [place] [address] documented as of this encounter Visit Diagnoses Not on filedocumented in this encounter Additional Health Concerns Assessment Noted Time PHQ-9 Depression Total Score: 14 025 11:23 AM EST documented as of this encounter Care Teams Television Repairman Relationship Specialty Start Date End Date Jackie Abdi MD [address] [place] [address] PCP - General Family Medicine 04/29/13 documented as of this encounter
--- OUTSIDE RECORDS SUMMARY | 2024-06-29 10:47 | XMS_ITS | Encounter Summary ---
Author Organization [employer] Address [address] [place] [address] [address] Care Team Providers Care Product Development Coordinator Name Role Phone Jackie Abdi MD Primary Care Provider [phone] Reason for Visit * Reason Onset Date Comments Med Refill 12/08/2022 Encounter Details Date Type Department Care Team (Late st Contact Info) Description 12/08/[address] [facility] MED & PEDS 505 [place] [address] Jackie Abdi MD 505 [place] [address] Social History Tobacco Use Types Packs/Day Years [...] Description 09/21/2024 10:45 AM EDT Office Visit [facility] MED & PEDS 505 [place] [address] Jackie Abdi MD 505 [place] [address] documented as of this encounter Visit Diagnoses Not on filedocumented in this encounter Additional Health Concerns Assessment Noted Time PHQ-9 Depression Total Score: 21 023 8:57 AM EDT documented as of this encounter Care Teams Product Development Coordinator Relationship Specialty Start Date End Date Jackie Abdi MD [address] [place] [address] PCP - General Family Medicine 04/29/13 documented as of this encounter
--- OUTSIDE RECORDS SUMMARY | 2024-06-29 10:47 | XMS_ITS | Encounter Summary ---
Author Organization [employer] Address 75 [facility] 7t [place] [address] Care Team Providers Care Personal Care Aide Name Role Phone Jackie Abdi MD Primary Care Provider [phone] Reason for Visit * Reason Onset Date Comments natural gas inspector 09/09/2023 Encounter Details Date Type Department Care Team (Late st Contact Info) Description 09/09/2023 Telephone [facility] CHC ADULT DENTAL [address] [place] [address] Sharon Fernandez DMD natural gas inspector Social History Tobacco Use Types Packs/Day Years [...] t he electric, gas, oil or water [employer] threatened to shut off services in your [...] Patient called in stating hat [facility] to [facility] where she can [facility] [...] Description 09/21/2024 10:45 AM EDT Office Visit [facility] CHC MED & PEDS 505 [place] [address] Jackie Abdi MD 505 [place] [address] documented as of this encounter Visit Diagnoses Not on filedocumented in this encounter Additional Health Concerns Assessment Noted Time PHQ-9 Depression Total Score: 21 023 8:57 AM EDT documented as of this encounter Care Teams Personal Care Aide Relationship Specialty Start Date End Date Jackie Abdi MD [address] [place] [address] PCP - General Family Medicine 04/29/13 documented as of this encounter
--- OUTSIDE RECORDS SUMMARY | 2024-06-29 10:47 | XMS_ITS | Clinical Summary ---
Author Organization 175 [facility] Address [address] [place] [phone] Phone Care Team Providers Care Wastewater Analyst Name Role Phone Jackie Abdi MD Primary Care Provider [phone] Allergies No known active allergies Medications cholecalciferol [...] (gassiness). 60 capsule 5 06/04/19 25 Active zolpidem CR (Ambien CR) 6.25 mg CR tabletIndicatio ns:Class 1 obesity due to excess calories with body mass index (BMI) of 30.0 to 30.9 in adult, unspecified whether serious comorbidity present Take 1 tablet (6.25 mg total) by mouth at bedtime as needed for sleep. Do not crush, chew, or split. Max Daily Amount: 6.25 mg 30 tablet 06/17/19 25 025 Active phentermine 15 mg capsuleIndicati ons:Class 1 obesity due to excess calories with body mass index (BMI) of 30.0 to 30.9 in adult, unspecified whether serious comorbidity present Take 1 capsule (15 mg total) by mouth 1 (one) time each day before breakfast. Max Daily Amount: 15 mg 30 each 06/17/19 25 025 Active topiramate (Topamax) 50 mg tabletIndicatio ns:Class 1 obesity due to excess calories with body mass index (BMI) of 30.0 to 30.9 in adult, unspecified whether serious comorbidity present Take 1 tablet (50 mg total) by mouth at bedtime. 30 each 2 06/17/19 25 025 Active POTASSIUM ORAL Take by mouth as [...] Encounters Date Type Department Care Team Description 06/16/2024 3:45 PM EDT Office Visit Bariatric Surgery - [address] [place] [address] Aleksandar Heaton MD Class 1 obesity due to excess calories with body mass index (BMI) of 30.0 to 30.9 in adult, unspecified whether serious comorbidity present (Primary Dx) 06/03/2024 2:40 PM EST Office Visit Gastroenterology - [address] 175 [facility] [address] [place] [address] Artis Leyva PA Epigastric pain (Primary Dx); Generalized abdominal pain; Gassiness; Dyspepsia; History of gastric bypass from Last 3 Months Immunizations Name Administration Dates Next Due Tdap Tetanus diptheria acell ular pertussis (Boostrix; Adacel) 7yo and older 01/19/2012 Surgical History Surgery Date Site/Laterality Comments OTHER SURGICAL HISTORY PROCEDURE: [facility] TIBIAL FRACTURE PROXIMAL UNICONDYLAR CHOLECYSTECTOMY PROCEDURE: [facility] LAPAROSCOPY SURG CHOLECYSTECTOMY BUNIONECTOMY PROCEDURE: BUNION SURGERY, SIMPLE REMOVAL SECTION PROCEDURE: [facility] DELIVERY ONLY Medical History Medical History Date Comments Hypercholesteremia DX:Hyperchole steremia Class 2 severe obesity due t o excess calories with serious comorbidity and body mass index (BMI) of 35.0 to 35.9 in adult ([facility]) 05/03/2020 DX:Class 2 severe obesity du e to excess calories with serious comorbidity and body mass index (BMI) of 35.0 to 35.9 in adult ([facility]) Gastroesophageal reflux dise ase with esophagitis without [...] Sign Reading Time Taken Comments Blood Pressure 118/63 06/16/2024 3:29 PM EDT Pulse 72 06/16/2024 3:29 PM EDT Temperature 36.6 ??C (97.8 ??F) 06/16/2024 3:29 PM ED T Respiratory Rate - - Oxygen Saturation - - Inhaled Oxygen Concentration - - Weight 68.9 kg (152 lb) 06/16/2024 3:29 PM EDT Height 149.9 cm (4' 11 ) 06/16/2024 3:29 PM EDT Body Mass Index 30.7 06/16/2024 3:29 PM EDT Plan of Treatment Upcoming Encounters Date Type Department Care Team ([facility] st Contact Info) Description 09/22/2024 1:45 PM EDT Office Visit Bariatric Surgery - [place] 175 [facility] [address] [place] [address] Aleksandar Heaton MD 175 [facility] [address] [place] [address] Health Maintenance Due Date Last Done Comments Breast Cancer Screening 1972 Cervical Cancer Screening: Pap Smear 1993 DTaP,Tdap,and Td Vaccines (2 - Td or Tdap) 01/18/2022 01/19/2012 Social Influencers of Health Screening 03/02/2022 Depression Screening 04/19/2025 04/19/2024 Colorectal Cancer Screening: FIT-DNA (Cologuard) 02/23/2026 02/23/2023 Cholesterol Screening (Lipid Panel) 06/17/2029 06/17/2024, 06/27/2020 HIV Screening Completed 12/12/2020 Hepatitis C Screening [...] Procedure Name Priority Date/Time Associated Diagnosis Comments HEPATIC FUNCTION PANEL Routine 06/17/2024 10:12 AM EDT Class 1 obesity due to excess calories with body mass index (BMI) of 30.0 to 30.9 in adult, unspecified whether serious comorbidity present LIPID PANEL WITH REFLEX TO DIRECT LDL Routine 06/17/2024 10:12 AM EDT Class 1 obesity due to excess calories with body mass index (BMI) of 30.0 to 30.9 in adult, unspecified whether serious comorbidity present THYROID STIMULATING HORMONE Routine 06/17/2024 10:12 AM EDT Class 1 obesity due to excess calories with body mass index (BMI) of 30.0 to 30.9 in adult, unspecified whether serious comorbidity present HEMOGLOBIN A1C Routine 06/17/2024 10:12 AM EDT Class 1 obesity due to excess calories with body mass index (BMI) of 30.0 to 30.9 in adult, unspecified whether serious comorbidity present HEPATITIS C SCREENING Routine 09/22/2023 from Last 3 Months or Most Recently Relevant to Health Maintenance Results * (ABNORMAL) Lipid panel with reflex to direct LDL (06/17/2024 10:12 AM EDT) [facility] Cholesterol 230(H) 0 - 200 mg/dL LAB CHEMISTRY METHOD 06/17/2024 2:13 PM EDT [facility] Triglycerides 155(H) 0 - 150 mg/dL LAB CHEMISTRY METHOD 06/17/2024 2:13 PM EDT [facility] HDL 48 >=40 mg/dL LAB CHEMISTRY METHOD 06/17/2024 2:13 PM EDT [facility] LDL Calculated 151(H) 0 - 100 mg/dL LAB CHEMISTRY METHOD 06/17/2024 2:13 PM EDT [facility] VLDL Cholesterol Cristofer 31 mg/dL LAB CHEMISTRY METHOD 06/17/2024 2:13 PM EDT [facility] Non HDL Chol. (LDL+VLDL) 182(H) <145 mg/dL LAB CHEMISTRY METHOD 06/17/2024 2:13 PM EDT [facility] Chol/HDL Ratio 4.8(H) 0.0 - 4.4 LAB CHEMISTRY METHOD 06/17/2024 2:13 PM EDT [facility] Blood Venous blood specimen / Unknown Venipuncture / Unknown 06/17/2024 10:12 AM EDT 06/17/2024 11:07 AM EDT us Aleksandar Heaton MD LAB BLOOD ORDERABLES Final R esult Performing Organization Address [facility] Co de Phone Number [facility] [address] [place] [address], [place] [phone] * (ABNORMAL) Thyroid stimulating hormone (06/17/2024 10:12 AM EDT) TSH 5.21(H) 0.40 - 4.00 mcIU/mL LAB CHEMISTRY METHOD 06/17/2024 2:45 PM EDT [facility] Blood Venous blood specimen / Unknown Venipuncture / Unknown 06/17/2024 10:12 AM EDT 06/17/2024 11:07 AM EDT us Aleksandar Heaton MD LAB BLOOD ORDERABLES Final R esult [facility] [address] [place] [address], [place] [phone] * Hemoglobin A1c (06/17/2024 10:12 AM EDT) [facility] Hemoglobin A1C 5.9 <6.5 % LAB CHEMISTRY METHOD 06/17/2024 12:33 PM EDT [facility] Mean Bld Glu Estim. 123 mg/dL LAB CHEMISTRY METHOD 06/17/2024 12:33 PM EDT [facility] Blood Venous blood specimen / Unknown Venipuncture / Unknown 06/17/2024 10:12 AM EDT 06/17/2024 11:08 AM EDT Aleksandar Heaton MD LAB BLOOD ORDERABLES Final R esult Performing Organization Address [facility]/ZIP Co de Phone Number [facility] [address] [place] [address], [place] [phone] * Hepatic function panel (06/17/2024 10:12 AM EDT) [facility] Total Protein 7.1 6.0 - 8.0 g/dL LAB CHEMISTRY METHOD 06/17/2024 2:13 PM EDT [facility] Albumin 3.7 3.2 - 5.0 g/dL LAB CHEMISTRY METHOD 06/17/2024 2:13 PM EDT [facility] Total Bilirubin 0.3 0.0 - 1.4 mg/dL LAB CHEMISTRY METHOD 06/17/2024 2:13 PM EDT [facility] Bilirubin, Direct <0.1 0.0 - 0.3 mg/dL LAB CHEMISTRY METHOD 06/17/2024 2:13 PM EDT [facility] Bilirubin, Indirect LAB CHEMISTRY METHOD 06/17/2024 2:13 PM EDT [facility] Comment:Unable to calculate Indirect Bilirubin. ALT (SGPT) 19 10 - 60 unit/L LAB CHEMISTRY METHOD 06/17/2024 2:13 PM EDT [facility] AST (SGOT) 14 10 - 42 unit/L LAB CHEMISTRY METHOD 06/17/2024 2:13 PM EDT [facility] Alkaline Phosphatase 93 42 - 121 unit/L LAB CHEMISTRY METHOD 06/17/2024 2:13 PM EDT [facility] Blood Venous blood specimen / Unknown Venipuncture / Unknown 06/17/2024 10:12 AM EDT 06/17/2024 11:07 AM EDT Aleksandar Heaton MD LAB BLOOD ORDERABLES Final R esult [facility] [address] [place] [address], * Hepatitis C Screening (09/22/2023) Hepatitis C Screening abstracted Historical Provider HEALTH MAINTENANCE Final Result from Last 3 Months or Most Recently Relevant to Health Maintenance Insurance MEDICAID - [place] Care Teams Wastewater Analyst Relationship Specialty Start Date End Date Jackie Abdi MD [address] [place] [id number] PCP - General 10/20/16
--- OUTSIDE RECORDS SUMMARY | 2024-06-29 10:47 | XMS_ITS | Encounter Summary ---
Author Organization [facility] Address [address] [facility] 7t [place] [address] Care Team Providers Care Heading Saw Operator Name Role Phone Jackie Abdi MD Primary Care Provider [phone] Reason for Visit * Reason Comments Med Refill Encounter Details Date Type Department Care Team ([facility] st Contact Info) Description 09/01/2023 Refill [facility]C MED & PEDS [address] [place], [place] [phone] Ronnell Sanderson MD 505 [place] [address] Acute pain of right shoulder Social History [...] Description 09/21/2024 10:45 AM EDT Office Visit [facility] MED & PEDS [address] [place] [address] Jackie Abdi MD 505 [place] [address] documented as of this encounter Visit Diagnoses Diagnosis Acute pain of right shoulder documented in this encounter Additional Health Concerns Assessment Noted Time PHQ-9 Depression Total Score: 21 023 8:57 AM EDT documented as of this encounter Care Teams Heading Saw Operator Relationship Specialty Start Date End Date Jackie Abdi MD [address] [place] [address] PCP - General Family Medicine 04/29/13 documented as of this encounter
--- OUTSIDE RECORDS SUMMARY | 2024-06-29 10:47 | XMS_ITS | Encounter Summary ---
Author Organization [employer] Address [address] [place] [address] 7[address] [place] [address] Care Team Providers Care Head Resident Name Role Phone Jackie Abdi MD Primary Care Provider [phone] Encounter Details Date Type Department Care Team (Late st Contact Info) Description 10/01/2022 Abstract [facility] MEDICINE [address] [place] [address] Jackie Abdi MD 505 [place] [address] Social History Tobacco Use Types Packs/Day Years [...] Description 09/21/2024 10:45 AM EDT Office Visit [facility] CHC MED & PEDS 505 [place] [address] Jackie Abdi MD 505 [place] [address] documented as of this encounter Visit Diagnoses Not on filedocumented in this encounter Additional Health Concerns Assessment Noted Time PHQ-9 Depression Total Score: 21 023 8:57 AM EDT documented as of this encounter Care Teams Head Resident Relationship Specialty Start Date End Date Jackie Abdi MD [address] [place] [address] PCP - General Family Medicine 04/29/13 documented as of this encounter
--- OUTSIDE RECORDS SUMMARY | 2024-06-29 10:47 | XMS_ITS | Encounter Summary ---
Author Organization [employer] Address [address] [facility] 7t [place] [address] Care Team Providers Care Small Products Assembler Name Role Phone Jackie Abdi MD Primary Care Provider [phone] Reason for Visit * Reason Onset Date Comments Referral 08/26/2023 Encounter Details Date Type Department Care Team ([facility] st Contact Info) Description 08/26/2023 Telephone [facility] MEDICINE [address] [place] [address] Jackie Abdi MD [address] [place] [address] Referral Social History Tobacco Use Types Packs/Day [...] EDT Tc from pt was advised by body former office to request new referral due not being seen until 2020. Address: [address] [place] [address] [address] [facility] [address] Facility Name: [facility]. Type of Specialist: Imaging Scheduler Pt is also requesting referral for a urologist and or color card maker due to some recent concerns. (Ptwas triaged) If any questions please contact pt at [phone]. documented in this encounter Plan of Treatment Upcoming Encounters Date Type Department Care Team ([facility] st Contact Info) Description 09/21/2024 10:45 AM EDT Office Visit [facility] MED & PEDS 505 [place] [address] Jackie Abdi MD 505 [place] [address] documented as of this encounter Visit Diagnoses Not on filedocumented in this encounter Additional Health Concerns Assessment Noted Time PHQ-9 Depression Total Score: 21 023 8:57 AM EDT documented as of this encounter Care Teams Small Products Assembler Relationship Specialty Start Date End Date Jackie Abdi MD [address] [place] [address] PCP - General Family Medicine 04/29/13 documented as of this encounter
--- OUTSIDE RECORDS SUMMARY | 2024-06-29 10:47 | XMS_ITS | Encounter Summary ---
Author Organization [employer] Address 75 [facility] 7t [place] [address] Care Team Providers Care Back Filler Operator Name Role Phone Jackie Abdi MD Primary Care Provider [phone] Encounter Details Date Type Department Care Team (Late Contact Info) Description 06/03/2022 Orders Only [facility] MED & PEDS 505 [place] [address] Kaylin Kaur MD 505 [place] [address] Mid-back pain, acute (Primary Dx) Social History [...] Department Care Team (Late Contact Info) Description 09/21/2024 10:45 AM EDT Office Visit [facility] MED & PEDS 505 [place], [place] [phone] Jackie Abdi MD [address] [place] [address] documented as of this encounter Visit Diagnoses Diagnosis Mid-back pain, acute- Primary documented in this encounter Care Teams Back Filler Operator Relationship Specialty Start Date End Date Jackie Abdi MD [address] [place] [address] PCP - General Family Medicine 04/29/13 documented as of this encounter
--- OUTSIDE RECORDS SUMMARY | 2024-06-29 10:47 | XMS_ITS | Encounter Summary ---
Author Organization [employer] [facility] Address [address] [place] [address] 7 [place] [address] Care Team Providers Care Social Media Community Manager Name Role Phone Jackie Abdi MD Primary Care Provider [phone] Reason for Visit * Reason Onset Date Comments Med Refill 12/05/2022 Encounter Details Date Type Department Care Team (Late st Contact Info) Description 12/05/2022 Refill [facility] MED & PEDS [address] [place] [address] Abby Duran MD Social History Tobacco Use [...] Description 09/21/2024 10:45 AM EDT Office Visit [facility] MED & PEDS 505 [place] [address] Jackie Abdi MD 505 [place] [address] documented as of this encounter Visit Diagnoses Not on filedocumented in this encounter Additional Health Concerns Assessment Noted Time PHQ-9 Depression Total Score: 21 023 8:57 AM EDT documented as of this encounter Care Teams Social Media Community Manager Relationship Specialty Start Date End Date Jackie Abdi MD 230 [place] [address] PCP - General Family Medicine 04/29/13 documented as of this encounter
--- OUTSIDE RECORDS SUMMARY | 2024-06-29 10:47 | XMS_ITS | Encounter Summary ---
Author Organization [employer] Address 75 [facility] 7t [place] [address] Care Team Providers Care Adult School Counselor Name Role Phone Jackie Abdi MD Primary Care Provider [phone] Reason for Visit * Reason Comments Med Refill Encounter Details Date Type Department Care Team ([facility] st Contact Info) Description 06/08/2023 Refill [facility] MEDICINE 230 [place] [address] Jackie Abdi MD [address] [place] [address] Depressed mood Social History Tobacco Use Types [...] Description 09/21/2024 10:45 AM EDT Office Visit [facility] MED & PEDS 505 [place] [address] Jackie Abdi MD 505 [place] [address] documented as of this encounter Visit Diagnoses Diagnosis Depressed mood documented in this encounter Additional Health Concerns Assessment Noted Time PHQ-9 Depression Total Score: 21 023 8:57 AM EDT documented as of this encounter Care Teams Adult School Counselor Relationship Specialty Start Date End Date Jackie Abdi MD [address] [place] [address] PCP - General Family Medicine 04/29/13 documented as of this encounter
--- OUTSIDE RECORDS SUMMARY | 2024-06-29 10:47 | XMS_ITS | Encounter Summary ---
Author Organization [employer] Address 75 [facility] 7t [place] [address] Care Team Providers Care Lozenge Maker Name Role Phone Jackie Abdi MD Primary Care Provider [phone] Reason for Visit * Reason Comments Med Refill Encounter Details Date Type Department Care Team (Late Contact Info) Description 09/18/2022 Refill [facility] CHC MED & PEDS 505 [place], [place] [phone] Ronnell Sanderson MD 505 [place] [address] Mid-back pain, acute Social History Tobacco Use [...] Description 09/21/2024 10:45 AM EDT Office Visit [facility] CHC MED & PEDS [address] [place] [address] Jackie Abdi MD 505 [place] [address] documented as of this encounter Visit Diagnoses Diagnosis Mid-back pain, acute documented in this encounter Additional Health Concerns Assessment Noted Time PHQ-9 Depression Total Score: 21 023 8:57 AM EDT documented as of this encounter Care Teams Lozenge Maker Relationship Specialty Start Date End Date Jackie Abdi MD [address] [place] [address] PCP - General Family Medicine 04/29/13 documented as of this encounter
--- OUTSIDE RECORDS SUMMARY | 2024-06-29 10:47 | XMS_ITS | Encounter Summary ---
Author Organization [employer] Address [address] [facility] 7t [place] [address] Care Team Providers Care Business Applications Developer Name Role Phone Jackie Abdi MD Primary Care Provider [phone] Encounter Details Date Type Department Care Team (Late Contact Info) Description 08/28/2022 Orders Only [facility] MED & PEDS 505 [place], [place] [phone] Ronnell Sanderson MD 505 [place] [address] Social History Tobacco Use Types Packs/Day Years [...] Description 09/21/2024 10:45 AM EDT Office Visit [facility] MED & PEDS [address] [place] [address] Jackie Abdi MD [address] [place] [address] documented as of this encounter Visit Diagnoses Not on filedocumented in this encounter Additional Health Concerns Assessment Noted Time PHQ-9 Depression Total Score: 21 023 8:57 AM EDT documented as of this encounter Care Teams Business Applications Developer Relationship Specialty Start Date End Date Jackie Abdi MD [address] [place] [address] PCP - General Family Medicine 04/29/13 documented as of this encounter
--- OUTSIDE RECORDS SUMMARY | 2024-06-29 10:47 | XMS_ITS | Encounter Summary ---
Author Organization [employer] [facility] Address [address] [place] [address], [place] [address] Care Team Providers Care Filter Tank Tender Helper Name Role Phone Jackie Abdi MD Primary Care Provider Encounter Details Date Type Department Care Team (Late st Contact Info) Description 03/18/2022 Orders Only [facility] MED & PEDS 505 [place] [address] Marielos Hooks LPN Social History Tobacco Use [...] Description 09/21/2024 10:45 AM EDT Office Visit [facility] MED & PEDS 505 [place] [address] Jackie Abdi MD 505 [place] [address] documented as of this encounter Visit Diagnoses Not on filedocumented in this encounter Care Teams Filter Tank Tender Helper Relationship Specialty Start Date End Date Jackie Abdi MD [address] [place] [address] PCP - General Family Medicine 04/29/13 documented as of this encounter
--- OUTSIDE RECORDS SUMMARY | 2024-06-29 10:47 | XMS_ITS | Encounter Summary ---
Author Organization [employer] Address [address] [facility] 7t [place] [address] Care Team Providers Care Strip Machine Operator Name Role Phone Jackie Abdi MD Primary Care Provider [phone] Reason for Visit * Reason Onset Date Comments Med Refill 02/26/2023 Encounter Details Date Type Department Care Team (Late st Contact Info) Description 02/26/2023 Refill [facility] CHC MED & PEDS [address] [place] [address] Jackie Abdi MD 505 [place] [address] Social History Tobacco Use Types Packs/Day Years [...] Description 09/21/2024 10:45 AM EDT Office Visit [facility] MED & PEDS [address] [place] [address] Jackie Abdi MD 505 [place] [address] documented as of this encounter Visit Diagnoses Not on filedocumented in this encounter Additional Health Concerns Assessment Noted Time PHQ-9 Depression Total Score: 21 023 8:57 AM EDT documented as of this encounter Care Teams Strip Machine Operator Relationship Specialty Start Date End Date Jackie Abdi MD [address] [place] [address] PCP - General Family Medicine 04/29/13 documented as of this encounter
--- OUTSIDE RECORDS SUMMARY | 2024-06-29 10:47 | XMS_ITS | Encounter Summary ---
Author Organization [employer] Address [address] [facility] 7t [place] [address] Care Team Providers Care Functional Architect Name Role Phone Jackie Abdi MD Primary Care Provider [phone] Reason for Visit * Reason Onset Date Comments Appt materials 01/21/2023 Encounter Details Date Type Department Care Team (Late st Contact Info) Description 01/21/2023 Telephone [facility] [address] [place] [address] Sharon Fernandez DMD Appt materials Social History [...] t he electric, gas, oil or water [employer] threatened to shut off services in your [...] Description 09/21/2024 10:45 AM EDT Office Visit [facility] CHC MED & PEDS 505 [place] [address] Jackie Abdi MD 505 [place] [address] documented as of this encounter Visit Diagnoses Not on filedocumented in this encounter Additional Health Concerns Assessment Noted Time PHQ-9 Depression Total Score: 21 023 8:57 AM EDT documented as of this encounter Care Teams Functional Architect Relationship Specialty Start Date End Date Jackie Abdi MD [address] [place] [address] PCP - General Family Medicine 04/29/13 documented as of this encounter
--- OUTSIDE RECORDS SUMMARY | 2024-06-29 10:47 | XMS_ITS | Encounter Summary ---
Author Organization [employer] Address [address] [facility] 7t [place] [address] Care Team Providers Care Outside Solar Sales Consultant Name Role Phone Jackie Abdi MD Primary Care Provider Reason for Visit * Reason Onset Date Comments Nurse Triage 08/03/2023 Encounter Details Date Type Department Care Team ([facility] st Contact Info) Description 08/03/2023 Telephone [facility] MEDICINE [address] [place] [address] Jackie Abdi MD [address] [place] [address] Nurse Triage Social History Tobacco Use Types Packs/Day Years Used Date Smoking Tobacco: Never Passive Smoke Exposure: Never Smokeless Tobacco: Never Alcohol Use Standard Drinks/Week Comments Never 0 (1 standard drink = 0.6 oz pur e alcohol) Depression Answer Date Recorded Patient Health Questionnaire-9 Score 21 06/26/2022 Housing Stability Answer Date Recorded What is your housing situation today? I have keyon anrdade 06/03/[address] you li [...] point. pt states is currently at the [facility] for evaluation. advised to complete the [...] 10:45 AM EDT Office Visit [facility]ED[facility] 505 [place] [address] Jackie Abdi MD 505 [place] [address] documented as of this encounter Visit Diagnoses Not on filedocumented in this encounter Additional Health Concerns Assessment Noted Time PHQ-9 Depression Total Score: 21 06/26/ 023 8:57 AM EDT documented as of this encounter Care Teams Outside Solar Sales Consultant Relationship Specialty Start Date End Date Jackie Abdi MD [address] [place] [address] PCP - General Family Medicine 04/29/13 documented as of this encounter
--- OUTSIDE RECORDS SUMMARY | 2024-06-29 10:47 | XMS_ITS | Encounter Summary ---
Author Organization [employer] Address [address] [facility] 7t [place] [address] Care Team Providers Care Tax Services Manager Name Role Phone Jackie Abdi MD Primary Care Provider [phone] Reason for Visit * Reason Onset Date Comments Results 04/30/2022 Encounter Details Date Type Department Care Team ([facility] Contact Info) Description 04/30/2022 Telephone [facility] MEDICINE [address] [place] [address] Jackie Abdi MD [address] [place] [address] Results Social History Tobacco Use Types Packs/Day [...] regarding xray results Please contact pt at [phone] documented in this encounter Plan of Treatment Upcoming Encounters Date Type Department Care Team (Late st Contact Info) Description 09/21/2024 10:45 AM EDT Office Visit [facility] MED [facility] PEDS [address] [place] [address] Jackie Abdi MD 505 [place] [address] documented as of this encounter Visit Diagnoses Not on filedocumented in this encounter Care Teams Tax Services Manager Relationship Specialty Start Date End Date Jackie Abdi MD [address] [place] [address] PCP - General Family Medicine 04/29/13 documented as of this encounter
--- OUTSIDE RECORDS SUMMARY | 2024-06-29 10:47 | XMS_ITS | Encounter Summary ---
Author Organization [employer] Address [address] [facility] 7t [place] [address] Care Team Providers Care Forensic Investigator Name Role Phone Jackie Abdi MD Primary Care Provider [phone] Reason for Visit * Reason Comments Med Refill Encounter Details Date Type Department Care Team ([facility] st Contact Info) Description 10/23/[address] [facility] MED & PEDS 505 [place], [place] [phone] Jackie Abdi MD 505 [place] [address] Social History Tobacco Use Types Packs/Day Years Used Date Smoking Tobacco: Never Passive Smoke Exposure: Never Smokeless Tobacco: Never Alcohol Use Standard Drinks/Week Comments Never 0 (1 standard drink = 0.6 oz pur e alcohol) Depression Answer Date Recorded Patient Health Questionnaire-9 Score 21 06/26/2022 Housing Stability Answer Date Recorded What is your housing situation today? I have keyno andrade 06/03/[address] you [...] 09/21/2024 10:45 AM EDT Office Visit [facility] MED & PEDS [address] [place] [address] Jackie Abdi MD 505 [place] [address] documented as of this encounter Visit Diagnoses Not on filedocumented in this encounter Additional Health Concerns Assessment Noted Time PHQ-9 Depression Total Score: 21 023 8:57 AM EDT documented as of this encounter Care Teams Forensic Investigator Relationship Specialty Start Date End Date Jackie Abdi MD [address] [place] [address] PCP - General Family Medicine 04/29/13 documented as of this encounter
--- OUTSIDE RECORDS SUMMARY | 2024-06-29 10:47 | XMS_ITS | Encounter Summary ---
Author Organization [employer] Address [address] [facility] 7t [place] [address] Care Team Providers Care Patrol Sergeant Name Role Phone Jackie Abdi MD Primary Care Provider [phone] Reason for Visit * Reason Onset Date Comments call back 06/03/2022 Encounter Details Date Type Department Care Team ([facility] st Contact Info) Description 06/03/2022 Telephone [facility] MEDICINE 230 [place] [address] Jackie Abdi MD [address] [place] [address] call back Social History Tobacco Use Types [...] a call back. Please contact pt at [phone] documented in this encounter Plan of Treatment Upcoming Encounters Date Type Department Care Team ([facility] st Contact Info) Description 09/21/2024 10:45 AM EDT Office Visit [facility] MED & PEDS [address] [place] [address] Jackie Abdi MD 505 [place] [address] documented as of this encounter Visit Diagnoses Not on filedocumented in this encounter Care Teams Patrol Sergeant Relationship Specialty Start Date End Date Jackie Abdi MD [address] [place] [address] PCP - General Family Medicine 04/29/13 documented as of this encounter
--- OUTSIDE RECORDS SUMMARY | 2024-06-29 10:47 | XMS_ITS | Clinical Summary ---
Author Organization [facility] Facility Address [address] [place] [address] Care Team Providers Care Manufacturing Quality Inspector Name Role Phone Jackie Abdi MD Primary Care Provider [phone] Allergies No known active allergies Medications omeprazole [...] [place] Care Teams Manufacturing Quality Inspector Relationship Specialty Start Date End Date Jackie Abdi MD [address] [place] [address] PCP - General 04/09/20
--- OUTSIDE RECORDS SUMMARY | 2024-06-29 10:47 | XMS_ITS | Encounter Summary ---
Author Organization [employer] Address 75 [facility] 7t [place] [address] Care Team Providers Care Scada Engineer Name Role Phone Jackie Abdi MD Primary Care Provider Encounter Details Date Type Department Care Team ([facility] st Contact Info) Description 03/11/2023 Abstract [facility] [address] [place] [address] Jackie Abdi MD [address] [place] [address] Social History Tobacco Use Types Packs/Day Years [...] Description 09/21/2024 10:45 AM EDT Office Visit [facility] MED & PEDS 505 [place] [address] Jackie Abdi MD 505 [place] [address] documented as of this encounter Visit Diagnoses Not on filedocumented in this encounter Additional Health Concerns Assessment Noted Time PHQ-9 Depression Total Score: 21 023 8:57 AM EDT documented as of this encounter Care Teams Scada Engineer Relationship Specialty Start Date End Date Jackie Abdi MD [address] [place] [address] PCP - General Family Medicine 04/29/13 documented as of this encounter
--- OUTSIDE RECORDS SUMMARY | 2024-06-29 10:47 | XMS_ITS | Encounter Summary ---
Author Organization [employer] Address [address] [place] [address] 7 [place] [address] Care Team Providers Care Lime Filter Operator Name Role Phone Jackie Abdi MD Primary Care Provider [phone] Reason for Visit * Reason Onset Date Comments Med Refill 10/24/2022 Encounter Details Date Type Department Care Team (Late st Contact Info) Description 10/24/2022 Refill [facility] MEDICINE 230 [place] [address] Jackie Abdi MD 505 [place] [address] Social History Tobacco Use Types Packs/Day Years [...] Description 09/21/2024 10:45 AM EDT Office Visit [facility] MED & PEDS 505 [place], [place] [phone] Jackie Abdi MD 505 [place], [place] [phone] documented as of this encounter Visit Diagnoses Not on filedocumented in this encounter Additional Health Concerns Assessment Noted Time PHQ-9 Depression Total Score: 21 023 8:57 AM EDT documented as of this encounter Care Teams Lime Filter Operator Relationship Specialty Start Date End Date Jackie Abdi MD [address] [place] [address] [place] [address] PCP - General Family Medicine 04/29/13 documented as of this encounter
--- OUTSIDE RECORDS SUMMARY | 2024-06-29 10:47 | XMS_ITS | Encounter Summary ---
Author Organization [employer] Address [address] [place] [address] 7t [place] [address] Care Team Providers Care Cane Loader Name Role Phone Jackie Abdi MD Primary Care Provider [phone] Encounter Details Date Type Department Care Team (Late st Contact Info) Description 12/08/2022 Telephone [facility] MED & PEDS [address] [place], [place] [phone] Jackie Abdi MD 505 [place] [address] Social History Tobacco Use Types Packs/Day Years [...] Description 09/21/2024 10:45 AM EDT Office Visit [facility] MED & PEDS [address] [place] [address] Jackie Abdi MD [address] [place] [address] documented as of this encounter Visit Diagnoses Not on filedocumented in this encounter Additional Health Concerns Assessment Noted Time PHQ-9 Depression Total Score: 21 023 8:57 AM EDT documented as of this encounter Care Teams Cane Loader Relationship Specialty Start Date End Date Jackie Abdi MD [address] [place] [address] PCP - General Family Medicine 04/29/13 documented as of this encounter
--- OUTSIDE RECORDS SUMMARY | 2024-06-29 10:47 | XMS_ITS | Encounter Summary ---
Author Organization [employer] Address 75 [facility] 7t [place] [address] Care Team Providers Care Upkeep Mechanic Name Role Phone Jackie Abdi MD Primary Care Provider [phone] Reason for Visit * Reason Comments Med Refill Encounter Details Date Type Department Care Team ([facility] st Contact Info) Description 09/16/2023 Refill [facility] MED & PEDS [address] [place], [place] [phone] Jackie Abdi MD 505 [place] [address] Acute pain of right shoulder Social History [...] 09/21/2024 10:45 AM EDT Office Visit [facility]EDS 505 [place] [address] Jackie Abdi MD 505 [place] [address] documented as of this encounter Visit Diagnoses Diagnosis Acute pain of right shoulder documented in this encounter Additional Health Concerns Assessment Noted Time PHQ-9 Depression Total Score: 21 023 8:57 AM EDT documented as of this encounter Care Teams Upkeep Mechanic Relationship Specialty Start Date End Date Jackie Abdi MD [address] [place] [address] PCP - General Family Medicine 04/29/13 documented as of this encounter
--- OUTSIDE RECORDS SUMMARY | 2024-06-29 10:48 | XMS_ITS | Encounter Summary ---
Author Organization [employer] Address 75 [facility] 7t [place] [address] Care Team Providers Care Signal Manager Name Role Phone Jackie Abdi MD Primary Care Provider [phone] Reason for Visit * Reason Onset Date Comments Med Refill 11/13/2023 Encounter Details Date Type Department Care Team (Late st Contact Info) Description 11/13/2023 Refill [facility] MEDICINE [address] [place] [address] Jackie Abdi MD [address] [place] [address] Social History Tobacco Use Types Packs/Day Years [...] 10:45 AM EDT Office Visit [facility] MED & PEDS 505 [place] [address] Jackie Abdi MD 505 [place] [address] documented as of this encounter Visit Diagnoses Not on filedocumented in this encounter Additional Health Concerns Assessment Noted Time PHQ-9 Depression Total Score: 21 023 8:57 AM EDT documented as of this encounter Care Teams Signal Manager Relationship Specialty Start Date End Date Jackie Abdi MD 230 [place] [address] PCP - General Family Medicine 04/29/13 documented as of this encounter
--- OUTSIDE RECORDS SUMMARY | 2024-06-29 10:48 | XMS_ITS | Encounter Summary ---
Author Organization [employer] Address 75 [facility] 7t [place] [address] Care Team Providers Care Criminal Defense Lawyer Name Role Phone Jackie Abdi MD Primary Care Provider [phone] Reason for Visit * Reason Onset Date Comments Results 08/04/2023 Encounter Details Date Type Department Care Team ([facility] Contact Info) Description 08/04/2023 Telephone [facility] MED & PEDS 505 [place], [place] [phone] Jackie Abdi MD 505 [place] [address] Results Social History Tobacco Use Types Packs/Day [...] labs. Pt stated these were done by [facility] and that they diagnosed pt with [...] and culture Date when done: 08/02 Facility: [facility] Please contact pt at [phone] documented in this encounter Plan of Treatment Upcoming Encounters Date Type Department Care Team (Late st Contact Info) Description 09/21/2024 10:45 AM EDT Office Visit [facility] MED & PEDS [address] [place] [address] Jackie Abdi MD [address] [place] [address] documented as of this encounter Visit Diagnoses Not on filedocumented in this encounter Additional Health Concerns Assessment Noted Time PHQ-9 Depression Total Score: 21 06/26/ 023 8:57 AM EDT documented as of this encounter Care Teams Criminal Defense Lawyer Relationship Specialty Start Date End Date Jackie Abdi MD [address] [place] [address] PCP - General Family Medicine 04/29/13 documented as of this encounter
--- OUTSIDE RECORDS SUMMARY | 2024-06-29 10:48 | XMS_ITS | Encounter Summary ---
Author Organization [employer] Address [address] [facility] [address] 7t [place] [address] Care Team Providers Care Dental Assistant Name Role Phone Jackie Abdi MD Primary Care Provider [phone] Encounter Details Date Type Department Care Team (Late st Contact Info) Description 12/07/2023 Orders Only [facility] [address] [place] [address] [phone] Hiren Garcia MD [address] [place], [place] [phone] Social History Tobacco Use Types Packs/Day Years [...] t he electric, gas, oil or water [employer] threatened to shut off services in your [...] Description 09/21/2024 10:45 AM EDT Office Visit [facility] MED & PEDS [address] [place] [address] Jackie Abdi MD [address] [place] [address] documented as of this encounter Procedures Procedure Name Priority Date/Time Associated Diagnosis Comments STRESS TEST WITH MYOCARDIAL PERFUSION Routine 01/01/2024 9:09 AM EDT documented in this encounter Results * Stress test with myocardial perfusion (01/01/2024 9:09 AM EDT) 01/01/2024 9:09 AM EDT Narrative [facility] - 01/04/2024 4:19 PM EDT ? [facility] ?[address] ?[place] [address] ?Nuclear Medicine Report ? Signed ? Patient: Philly,Sade ?MR#: [id number] ?? 4 ? : 1970 ?Acct:[id number] ? Age/Sex: 53 / F ?ADM Date: 10/04/24 ? Loc: HO.CARD ? Attending Rod Ricketts MD ? Ordering Physician: Abdelrahman Ricketts MD ?? Date of Service: 01/01/24 ?? Procedure(s): NM cardiolite stress test ?? Accession Number(s): [id number] ? cc: Jackie Abdi MD; Abdelrahman Ricketts [...] DD/ 0909 ? TD/TT: 01/04/24 1200 ? School Administrator: ? Procedure Note Kaylyn Barnes - 01/04/[address] [place] [address] Nuclear Medicine Report Signed Patient: Gray Fraga#: [id number] 4 : 1970Acct:[id number] Age/Sex: 53 / FADM Date: 01/01/24 Loc: .[facility] Attending Dr: Abdelrahman Ricketts MD Ordering Physician: Abdelrahman Ricketts MD Date of Service: 01/01/24 Procedure(s): NM cardiolite stress test Accession Number(s): [id number] cc: Jackie Abdi MD; Abderlahman Ricketts MD EXERCISE MYOCARDIAL PERFUSION STUDY INDICATION: [...] 01/04/24 1616 DD/ 0909 TD/TT: 01/04/24 1200 School Administrator: [facility] External Provider CV STRE SS PROCEDURES Final Result [facility] [address] [place] [address] documented in this encounter Visit Diagnoses Not on filedocumented in this encounter Additional Health Concerns Assessment Noted Time PHQ-9 Depression Total Score: 21 023 8:57 AM EDT documented as of this encounter Care Teams Dental Assistant Relationship Specialty Start Date End Date Jackie Abdi MD [address] [place] [address] PCP - General Family Medicine 04/29/13 documented as of this encounter
--- OUTSIDE RECORDS SUMMARY | 2024-06-29 10:48 | XMS_ITS | Encounter Summary ---
Author Organization [employer] Address 75 [facility] 7t [place] [address] Care Team Providers Care Client Advisor Name Role Phone Jackie Abdi MD Primary Care Provider [phone] Reason for Visit * Reason Comments Med Refill Encounter Details Date Type Department Care Team ([facility] st Contact Info) Description 11/13/2023 Refill [facility] MEDICINE [address] [place] [address] Jackie Abdi MD [address] [place] [address] Social History Tobacco Use Types Packs/Day Years [...] Description 09/21/2024 10:45 AM EDT Office Visit [facility] MED & PEDS [address] [place] [address] aJckie Abdi MD 505 [place] [address] documented as of this encounter Visit Diagnoses Not on filedocumented in this encounter Additional Health Concerns Assessment Noted Time PHQ-9 Depression Total Score: 21 023 8:57 AM EDT documented as of this encounter Care Teams Client Advisor Relationship Specialty Start Date End Date Jackie Abdi MD [address] [place] [address] PCP - General Family Medicine 04/29/13 documented as of this encounter
--- OUTSIDE RECORDS SUMMARY | 2024-06-29 10:48 | XMS_ITS | Clinical Summary ---
Author Organization [email or web address] Address [address] [facility] [address] [place] [address] Care Team Providers Care Epic Manager Name Role Phone Jackie Abdi MD Primary Care Provider Allergies Active Allergy Reactions Criticality Noted Date Comments Sulfamethoxazole-Trimethoprim Angioedema 2023 Medications Multiple Vitamin (Multi-Vitamin) tablet Take 1 tablet by mouth at bed time. Active cholecalciferol (Vitamin D-3) 1.25 MG (38008 UT) capsule Take 1 capsule by mouth. [...] DAY FOR 9 DAYS 09/27/19 23 Active nortriptyline (Pamelor) 25 MG capsule [...] DAILY 10.2 g 11 02/08/20 24 Active azelastine (Astelin) 0.1 % nasal spray USE 1 SPRAY IN EACH NOSTRIL TWICE DAILY 30 mL 11 03/01/20 24 Active meclizine (Antivert) 25 MG tablet TAKE 1 TABLET BY MOUTH EVERY MORNING, 1 TABLET AT NOON, AND 1 TABLET EVERY NIGHT AT BEDTIME NEEDED FOR DIZZINESS 30 tablet 04/01/19 25 Active celecoxib (CeleBREX) 200 MG capsuleIndications :Acute pain of right shoulder TAKE 1 CAPSULE BY MOUTH TWICE DAILY 40 capsule 06/07/19 25 Active hydrOXYzine pamoate (Vistaril) 50 MG capsule TAKE 1 CAPSULE BY MOUTH TWICE DAILY 60 capsule 3 06/10/19 25 Active cyclobenzaprine (Flexeril) 10 MG tablet TAKE 1 TABLET(10 MG) BY MOUTH AT BEDTIME 30 tablet 06/10/19 25 Active levothyroxine (Synthroid) 25 MCG tablet Take 1 tablet (25 mcg) by mouth before breakfast. 30 tablet 06/22/19 25 2025 Active loratadine (Claritin) 10 MG tablet Take 1 tablet (10 mg) by mouth Once per day. 30 tablet 11 06/22/19 25 2025 Active amoxicillin (Amoxil) 500 MG capsuleIndications :Pharyngitis, unspecified etiology Take 1 tab po bid for 10 days 20 capsule 06/24/19 25 Active sertraline (Zoloft) 100 MG tablet Take 0.5 tablets (50 mg) by mouth in the morning. 15 tablet 11 02/10/20 23 2024 Discontinued hydrOXYzine pamoate (Vistaril) 50 MG capsule TAKE 1 CAPSULE BY MOUTH TWICE DAILY 60 capsule 3 02/08/20 24 2024 Discontinued amoxicillin-clavul anate (Augmentin) 500-125 MG tablet Take 1 tablet by mouth every 6 (six) hours during the day. 04/11/19 25 2024 Discontinued cyclobenzaprine (Flexeril) 10 MG tablet TAKE 1 TABLET(10 MG) BY MOUTH AT BEDTIME 30 tablet 05/10/19 25 2024 Discontinued celecoxib (CeleBREX) 200 MG capsuleIndications :Acute pain of right shoulder TAKE 1 CAPSULE BY MOUTH TWICE DAILY 40 capsule 05/10/19 25 2024 Discontinued Active Problems Problem Noted Date Diagnosed Date Pharyngitis 06/23/2024 Assessment & Plan (06/23/2024 2:00 PM EDT): -clinic picture highly suspicious for strep pharyngitis -formal culture sent to lab -amoxicillin 500mg bid for 10 days, can discontinue if strep send out is negative -droplet precautions discussed -supportive care discussed Straining with stools 11/11/2022 Chronic RUQ pain [...] Encounters Date Type Department Care Team Description 06/23/2024 2:00 PM EDT Office Visit [facility] [address] [place] [phone] Yudith Davila MD Pharyngitis, unspecified etiology (Primary Dx) 06/23/2024 Telephone [facility] [address] [place] [address] Jackie Abdi MD Transition Of Care (Tcm) 06/23/2024 Travel 06/23/2024 Telephone [facility] [address] [place] [phone] Jackie Abdi MD 06/21/2024 10:00 AM EDT Office Visit [facility] [address] [place] [address] Jackie Abdi MD Esophageal dysphagia (Primary Dx); Eustachian catarrh, bilateral; Hypothyroidism, unspecified type 06/21/2024 Travel 06/20/2024 Travel 06/20/2024 Telephone [facility] [address] [place] [address] Jackie Abdi MD Chart Prep 06/10/2024 Population Health Risk Score [facility] ([facility]) Department [address] [place] [phone] Provider, Population Health Generic 06/08/2024 Orders Only GENERIC EXTERNAL DATA DEPARTMENT Provider, Generic External Data 06/06/2024 Refill [facility] [address] [place] [phone] Jackie Abdi MD 06/03/2024 Refill [facility] [address] [place] [phone] Jackie Abdi MD 06/01/2024 Refill [facility] [address] [place] [phone] Jackie Abdi MD Acute pain of right shoulder 05/08/2024 Refill [facility] [address] [place] [phone] Jackie Abdi MD Acute pain of right shoulder 04/26/2024 10:00 AM EST Office Visit [facility] [address] [place] [phone] Hiren Garcia MD Chronic pain in right shoulder (Primary Dx); Acute bilateral ankle pain 04/22/2024 Orders Only [facility] [address] [place] [phone] Pola Maldonado CNM 04/21/2024 2:00 PM EST Office Visit [facility] [address] [place] [phone] Pola Maldonado CNM Vaginal discharge (Primary Dx); Atrophic vaginitis; Pain in female genitalia on intercourse; Menopausal syndrome (hot flashes); Screening mammogram for breast cancer 04/21/2024 Outside Procedure [facility] [address] [place] [address] An Hernandez, OD Presbyopia of both eyes (Primary Dx) 04/20/2024 Travel 04/19/2024 3:30 PM EST Office Visit [facility] [address] [place] [address] David, An, OD Hyperopia of both eyes (Primary Dx) 04/19/2024 11:30 AM EST Telemedicine [facility] [address] [place] [address] Jackie Abdi MD Vaginal itching (Primary Dx); Pain in female genitalia on intercourse 04/19/2024 Travel 04/12/2024 Travel 04/08/2024 Telephone [facility] [address] [place], [place] [phone] Jackie Abdi MD appt 04/01/2024 Refill [facility] [address] [place], [place] [phone] Jackie Abdi MD from Last 3 Months Immunizations Name Administration [...] Sign Reading Time Taken Comments Blood Pressure 114/70 06/23/2024 1:48 PM EDT Pulse 109 06/23/2024 1:48 PM EDT Temperature 36.8 ??C (98.3 ??F) 06/23/2024 1:48 PM ED T Respiratory Rate 19 06/23/2024 1:48 PM EDT Oxygen Saturation 97% 06/23/2024 1:48 PM EDT Inhaled Oxygen Concentration - - Weight 66.8 kg (147 lb 3.2 oz) 06/23/2024 1:48 P M EDT Height 149.9 cm (4' 11 ) 06/23/2024 1:48 PM EDT Body Mass Index 29.73 06/23/2024 1:48 PM EDT Plan of Treatment Upcoming Encounters Date Type Department Care Team ([facility] st Contact Info) Description 09/21/2024 10:45 AM EDT Office Visit [facility] [address] [place] [address] Jackie Abdi MD [address] [place] [address] Health Maintenance Due Date Last Done Comments CT Colonography 1972 Colonoscopy 1972 FIT 1972 FOBT 1972 Sigmoidoscopy 1972 Alcohol/Substance Use Screening 1984 Family Planning (PISQ) 1987 DTaP/Tdap/Td Vaccines (2 - Td or Tdap) 01/18/2022 01/19/2012 Dental X-Ray: Bitewings 05/27/2023 05/26/2022 Dental Oral Exam 09/10/2023 03/10/2023, 05/26/2022 Dental Prophylaxis 09/10/2023 03/10/2023, 06/27/2022 Depression Monitoring (PHQ-9) 10/17/2024 04/19/2024, 04/19/2024 Depression Screening 04/19/2025 04/19/2024, 04/19/19 Dental X-Ray: Full Mouth 05/27/2025 05/26/2022 SDOH Screening 06/21/2025 06/21/2024 Tobacco Screening 06/23/2025 06/23/2024 Colorectal Cancer Screening 02/23/2026 FIT DNA/Cologuard 02/23/2026 02/23/2023 Mammogram 06/03/2026 06/03/2024, 03/02/2020 Lipid Panel 09/10/2026 09/10/2021, 05/0 09/2020, 02/06/2020 Cervical Cancer Screening 04/08/2027 HPV/Cotest 04/08/2027 04/08/2022 [...] Procedure Name Priority Date/Time Associated Diagnosis Comments POCT RAPID STREP A Routine 06/23/2024 2: 00 PM EDT Pharyngitis, unspecified etiology POCT RAPID COVID ANTIGEN Routine 06/23/2024 2:00 PM EDT Pharyngitis, unspecified etiology POCT INFLUENZA A (ID NOW RAPID MOLECULAR) Routine 06/23/2024 2:00 PM EDT Pharyngitis, unspecified etiology POCT INFLUENZA B (ID NOW RAPID MOLECULAR) Routine 06/23/2024 2:00 PM EDT Pharyngitis, unspecified etiology CULTURE, THROAT Routine 06/23/2024 12:00 AM EDT Pharyngitis, unspecified etiology MR SHOULDER WO CONTRAST RIGHT Routine 06/10/2024 3:36 PM EDT CULTURE, URINE, ROUTINE Routine 06/08/2024 11:28 AM EDT BI MAMMOGRAM SCREENING TOMOSYNTHESIS BILATERAL Routine 06/03/2024 9:45 AM EST Screening mammogram for breast cancer US PELVIS TRANSVAGINAL Routine 4:15 PM EST Pain in female genitalia on intercourse POCT WET MOUNT/MISSAEL Routine 04/21/2024 2: 42 PM EST Vaginal discharge BACTERIAL VAGINOSIS PANEL Routine 04/21/2024 2:24 PM EST Vaginal discharge PROPHYLAXIS - ADULT Routine 03/10/2023 2 :00 [...] CT/NG, TRICHOMONAS Routine 04/08/2022 4:21 PM EST LIPID PANEL, STANDARD Routine 09/10/2021 10:54 AM EDT ZZZ HISTORICAL HEPATITIS C AB W/REFL TO HCV RNA, QN, PCR Routine 12/12/2020 10:12 AM EDT HIV 1/2 ANTIGEN/ANTIBODY, FOURTH GENERATION W/RFL Routine 12/12/2020 10:12 AM EDT from Last 3 Months or Most Recently Relevant to Health Maintenance Results * Influenza B (ID NOW Rapid Molecular) (06/23/2024 2:00 PM EDT) Influenza B Negative Negative, Indeterminate [facility] Swab 06/23/2024 2:00 PM EDT us Yudith Davila MD POINT OF CARE TEST ENTER/E DIT ORDERABLES Final Result [facility] [address] [place] [phone] * Influenza A (ID NOW Rapid Molecular) (06/23/2024 2:00 PM EDT) [facility] Influenza A Negative Negative, Indeterminate [facility] Swab 06/23/2024 2:00 PM EDT us Yudith Davila MD POINT OF CARE TEST ENTER/E DIT ORDERABLES Final Result Performing Organization Address [facility]/ZIP Co de Phone Number [facility] [address] [place] [phone] * POCT Rapid COVID Ag (06/23/2024 2:00 PM EDT) [facility] Rapid COVID Ag Negative Swab 06/23/2024 2:00 PM EDT us Yudith Davila MD POINT OF CARE TEST ENTER/E DIT ORDERABLES Final Result * POCT rapid strep A manually resulted (06/23/2024 2:00 PM EDT) [facility] Rapid Strep A Screen Negative Negative, None Detected Swab 06/23/2024 2:00 PM EDT Result [facility] us Yudith Davila MD POINT OF CARE TEST ENTER/E DIT ORDERABLES Final Result * Culture, Throat (06/23/2024 12:00 AM EDT) Throat Structure of anterior portion of neck / Unknown 06/23/2024 06/23/2024 Comment:Throat Narrative [facility] - 06/25/2024 8:50 AM EDT Throat Culture No Group A Beta-hemolytic Streptococci isolated. Specimen Source: Throat Result [facility] us Yudith Davila MD LAB MICROBIOLOGY - GENERAL ORDERABLES Final Result Performing Organization Address [facility]/ZIP Co de Phone Number [facility] [address] [place] [phone] * MR Shoulder w/o Contrast Right (06/10/2024 3:36 PM EDT) Anatomical Region Laterality Modality Upper Extremities, Shoulder Right Magn etic Resonance 06/10/2024 3:36 PM EDT Narrative 06/10/2024 3:38 PM EDT ? [facility] ?[address] ?[place] [address] ? Magnetic Resonance Report ? Signed ? Patient: Philly,Sade ?MR#: [id number] ?? 4 ? : 1970 ?Acct:[id number] ? Age/Sex: 54 / F ?ADM Date: 06/07/24 ? Loc: HO.MRI ? Attending Dr: Alonzo Rivas PA-C ? Ordering Physician: Alonzo Rivas PA-C ?? Date of Service: 06/07/24 ?? Procedure(s): MR shoulder RT wo con ?? Accession Number(s): [id number] ? cc: Alonzo Rivas PA-C; Jackie Abdi MD ? CLINICAL HISTORY: M77.8 - Other enthesopathies, not elsewhere classified ? MR right shoulder without gadolinium ? Comparison: DX/SR - XR SHOULDER RT MIN 2V - 06/03/24 08:37 EST ? Findings: ?? No acute fracture or pathologic bone lesion. ?? Mild periarticular osteophyte formation at the glenohumeral and ?? acromioclavicular joints.. ?? Type II acromion. ?? No effusion. ? Full-thickness tearing of the mid/posterior supraspinatus tendon measuring ?? 20 mm anteroposterior. Low-grade partial-thickness tearing of the anterior ?? supraspinatus tendon at the humeral insertion site. Low-grade ?? intrasubstance tearing of the anterior and mid infraspinatus tendon at the ?? humeral insertion site. Subscapularis and teres minor tendons are intact. ?? No rotator cuff atrophy. ? No tears of the long head of biceps tendon. ?? No tears of the glenoid labrum. ? IMPRESSION: ?? 1. Full-thickness and partial-thickness tearing of the supraspinatus ?? tendon. ?? 2. Partial-thickness tearing of the infraspinatus tendon. ?? 3. Acromioclavicular and glenohumeral joint osteoarthritis. ? This document has been electronically signed by: Christian Nicolas MD on ?? 06/10/2024 15:36:49 ? Dictated By: ?Christian Nicolas MD ? Signed By: ?<Electronically signed by Christian Nicolas MD in OV> ? 06/10/241536 ? DD/ 35 ? TD/TT: 06/10/24 1536 ? Biometrics Consultant: ? Procedure Note Donjennifer, Image - 06/10/2024 [place] [address] Magnetic Resonance Report Signed Patient: Gray Fraga#: [id number] 4 : 1970Acct:[id number] Age/Sex: 54 / FADM Date: 06/07/24 Loc: HO.MRI Attending Dr: Alonzo Rivas PA-C Ordering Physician: Alonzo Rivas PA-C Date of Service: 06/07/24 Procedure(s): MR shoulder RT wo con Accession Number(s): [id number] cc: Alonzo Rivas PA-C; Jackie Abdi MD CLINICAL HISTORY: M77.8 - Other enthesopathies, not elsewhere classified MR right shoulder without gadolinium Comparison: DX/SR - XR SHOULDER RT MIN 2V - 06/03/24 08:37 EST Findings: No acute fracture or pathologic bone lesion. Mild periarticular osteophyte formation at the glenohumeral and acromioclavicular joints.. Type II acromion. No effusion. Full-thickness tearing of the mid/posterior supraspinatus tendon measuring 20 mm anteroposterior. Low-grade partial-thickness tearing of the anterior supraspinatus tendon at the humeral insertion site. Low-grade intrasubstance tearing of the anterior and mid infraspinatus tendon at the humeral insertion site. Subscapularis and teres minor tendons are intact. No rotator cuff atrophy. No tears of the long head of biceps tendon. No tears of the glenoid labrum. IMPRESSION: 1. Full-thickness and partial-thickness tearing of the supraspinatus tendon. 2. Partial-thickness tearing of the infraspinatus tendon. 3. Acromioclavicular and glenohumeral joint osteoarthritis. This document has been electronically signed by: Christian Nicolas MD on 06/10/2024 15:36:49 Dictated By: Christian Nicolas MD Signed By: <Electronically signed by Christian Nicolas MD in OV> 06/10/24 1537 DD/ 1536 TD/TT: 06/10/24 1536 Biometrics Consultant: [facility] External Provider IMG MRI PROCEDURES Final Result * Culture, Urine, Routine (06/08/2024 11:28 AM EDT) Urine Urine specimen obtained by clean catch procedure / Unknown 06/08/2024 11:28 AM EDT 06/08/2024 4:23 PM EDT Comment:UACC Narrative [facility] - 06/10/2024 7:42 AM EDT Escherichia coli Quant 10,000 to 50,000 cfu/mL Escherichia coli: Ampicillin 8(S) Escherichia coli: Cefazolin (Urine) 2(S) Escherichia coli: Cefepime <=0.12(S) Escherichia coli: Ceftriaxone <=0.25(S) Escherichia coli: Ciprofloxacin <=0.06(S) Escherichia coli: Gentamicin <=1(S) Escherichia coli: Nitrofurantoin <=16(S) Escherichia coli: Trimethoprim/Sulfamethoxazole <=20(S) Specimen Source: Urine clean catch Generic External Data Provider LAB MICROBIOLOGY - GENERAL ORDERABLES Final Result [facility] [address] [place] [phone] * BI Mammogram Screening Tomosynthesis Bilateral (06/03/2024 9:45 AM EST) Anatomical Region Laterality Modality Breast Bilateral Mammography 06/03/2024 9:45 AM EST Narrative 06/12/2024 4:59 PM EDT ? [place] [facility] ? [address] ?[place] [address] ? Mammography Report ? Signed ? Patient: Philly,Sade ?MR#: [id number] ?? 4 ? : 1970 ?Acct:[id number] ? Age/Sex: 54 / F ?ADM Date: 06/03/24 ? Loc: HO.MAMMO ? Attending Dr: Pola Maldonado CNCarlos ? Ordering Physician: POLA MALDONADO CNM ?Results: 1 ?? Negative ? Date of Service: 06/03/24 ?Follow Up: 1 Year From Orig ?? inal Mammogram ? Procedure(s): MM tomosynthesis screening BI ?? Accession Number(s): [id number] ? cc: Jackie Abdi MD; POLA MALDONADO CNM ? EXAMINATION: ?? MM SCREENING DIGITAL BREAST TOMOSYNTHESIS, BILATERAL ? CLINICAL INFORMATION: ? Screening. Asymptomatic. ? COMPARISON: ?? Mammography: Comparison is made with available priors ? TECHNIQUE: ?? Digital breast mammography with tomosynthesis is performed in both the ?? craniocaudal and mediolateral oblique views along with computer-aided ?? detection (CAD). ? FINDINGS: ?? There are scattered areas of fibroglandular density (ACR BI-RADS breast ?? composition Category b). ? There are no significant masses, abnormal calcifications, or other ?? abnormalities. ? MM/MM tomosynthesis screening BI ?? IMPRESSION: ?? No mammographic evidence of malignancy. ? ASSESSMENT: ? BI-RADS BI-RADS 1 - Negative ? RECOMMENDATION: ?? Routine annual mammography screening. ? 1 year F/U ? This examination should not preclude the clinical evaluation of a ?? suspicious palpable abnormality. ? This patient's information was entered into a reminder system with a ?? target due date for their next mammogram. ? Electronically signed by: ??Connie Damon DO ??06/12/2024 04:56 PM EDT ? Dictated By: ?Connie Damon DO ? Signed By: ?<Electronically signed by Connie Damon, DO in OV> ? 06/12/24 1656 ? DD/ 0945 ? TD/TT: 06/03/24 1010 ? Biometrics Consultant: ? Procedure Note Osmincarolinealeejessie, Image - 06/12/2024 Jerald [facility] [address] [place] [address] Mammography Report Signed Patient: Gray Frgaa#: [id number] 4 : 1970Acct:[id number] Age/Sex: 54 / FADM Date: 06/03/24 Loc: HO.MAMMO Attending Dr: Pola Maldonado CNM Ordering Physician: POLA MALDONADOesults: 1 Negative Date of Service: 06/03/24Follow Up: 1 Year From Orig inal Mammogram Procedure(s): MM tomosynthesis screening BI Accession Number(s): [id number] cc: Jackie Abdi MD; POLA MALDONADO CNM EXAMINATION: MM SCREENING DIGITAL BREAST TOMOSYNTHESIS, BILATERAL CLINICAL INFORMATION: Screening. Asymptomatic. COMPARISON: Mammography: Comparison is made with available priors TECHNIQUE: Digital breast mammography with tomosynthesis is performed in both the craniocaudal and mediolateral oblique views along with computer-aided detection (CAD). FINDINGS: There are scattered areas of fibroglandular density (ACR BI-RADS breast composition Category b). There are no significant masses, abnormal calcifications, or other abnormalities. MM/MM tomosynthesis screening BI IMPRESSION: No mammographic evidence of malignancy. ASSESSMENT: BI-RADS BI-RADS 1 - Negative RECOMMENDATION: Routine annual mammography screening. 1 year F/U This examination should not preclude the clinical evaluation of a suspicious palpable abnormality. This patient's information was entered into a reminder system with a target due date for their next mammogram. Electronically signed by: Connie Damon DO 06/12/2024 04:56 PM EDT Dictated By: Connie Damon DO Signed By: <Electronically signed by Connie Damon DO in OV> 06/12/24 1656 DD/ 0945 TD/TT: 06/03/24 1010 Biometrics Consultant: us Pola Maldonado CNM IMG BI PROCEDURES Final R esult * US Pelvis Transvaginal (04/26/2024 4:15 PM EST) Anatomical Region Laterality Modality Pelvis Ultrasound 04/26/2024 4:15 PM EST Narrative 04/27/2024 9:35 AM EST ? [facility] ?[address] ?[place] [address] ? Ultrasound Report ? Signed ? Patient: Sade Fraga ?MR#: [id number] ?? 4 ? : 1970 ?Acct:[id number] ? Age/Sex: 54 / F ?ADM Date: 04/26/24 ? Loc: HO.US ? Attending Dr: Pola Maldonado CNCarlos ? Ordering Physician: POLA MALDONADO CNM ?? Date of Service: 04/26/24 ?? Procedure(s): US pelvic and transvaginal ?? Accession Number(s): [id number] ? cc: Jackie Abdi MD; POLA MALDONADO [...] 09:32 AM EST RP ? Dictated By: ?Gary Thayer MD ? Signed By: ?<Electronically signed by Gary Thayer MD in OV> ?04/27/24 0932 ? DD/ 1615 ? TD/TT: 04/26/24 1623 ? Biometrics Consultant: MSM ? Procedure Note Kaylyn Barnes - 04/27/2024 [place] [address] Ultrasound Report Signed Patient: Gray Fraga#: [id number] 4 : 1970Acct:[id number] Age/Sex: 54 / FADM Date: 04/26/24 Loc: HO.US Attending Dr: Pola Maldonado CNM Ordering Physician: POLA MALDONADO CNM Date of Service: 04/26/24 Procedure(s): US pelvic and transvaginal Accession Number(s): [id number] cc: Jackie Abdi MD; POLA MALDONADO CNM [...] Gary Thayer MD 04/27/2024 09:32 AM EST RP Dictated By: Gary Thayer MD Signed By: <Electronically signed by Gary Thayer MD in OV> 04/27/24 0932 DD/ 1615 TD/TT: 04/26/24 1623 Biometrics Consultant: BRAYDON Pola Maldonado CNM IMG US PROCEDURES [...] DETECTION BY PCR NOT DETECTED Not Detect [facility] BACTERIAL VAGINOSIS DETECTION BY PCR NEGATIVE Negative [facility] Comment:The BV organism targ ets of [...] GROUP DETECTION BY PCR DETECTED(A) Not Detect [facility] Ofelia glab krusei PCR NOT DETECTED Not Detect [facility] Swab Vaginal structure / Unknown 04/21/2024 2:24 PM EST 04/21/2024 5:25 PM EST Pola Maldonado [facility] LAB MICROBIOLOGY - GENERA L ORDERABLES Final Result [facility] [address] [place] [phone] * Cologuard?? colon cancer screening (02/23/2023 10:44 AM EST) Cologuard Result Negative Negative 03/01/20 3:14 PM EST [facility] (CLIA #:[id number]) Comment: NEGATIVE TEST RESULT. A negative Cologuard [...] cancer. ??Following a negative Cologuard result, the [place] [employer] and U.S. Multi-Society Task Force screening guidelines recommend a Cologuard re-screening interval of 3 years. References: [place] [employer] Guideline for Colorectal Cancer Screening: https://www.cancer.org/cancer/mykkx-xkhevy-njxcsu/yorlgslig-dlcwwbokk-gvhipul/ac s-rec ommendations.html.; Bean DK, Mitchell CR, Dank WeberK, Colorectal Cancer Screening: Recommendations for Physicians and Patients from the U.S. Multi-Society Task Force on Colorectal Cancer Screening , Am J Gastroenterology 2017; 112:4644-1498. TEST DESCRIPTION: Composite algorithmic analysis of stool [...] (Javi Frank al, N Engl J Med 2014;370(14):8580-3203.) Cologuard may produce a false negative or false positive result (no colorectal cancer or precancerous polyp present at colonoscopy follow up). A negative Cologuard test result does not guarantee the absence of CRC or advanced adenoma (pre-cancer). The current Cologuard screening interval is every 3 years. ([place] [employer] and U.S. Multi-Society Task Force). Cologuard performance data in a 10,000 patient pivotal study using colonoscopy as the reference method can be accessed at the following location: www.[employer]/results. Additional description of the Cologuard test process, warnings and precautions can be found at www.cologreKode Educationrd.com. Stool specimen (specimen) 02/23/2023 10:44 AM EST 02/24/2023 1:44 PM EST us Jackie Abdi MD LAB MOLECULAR DIAGNOSTICS ORDERA BLES Final Result [facility] (CLIA #:[id number]) [place] [address], * Thinprep TIS PAP And HPV mRNA E6/E7, CT/NG, TRICH (04/08/2022 4:21 PM EST) Clinical Information: SCREENING, PELVIC PAIN [facility] LMP: NONE GIVEN [facility] Prev. PAP: NONE GIVEN [facility] Prev. BX: NONE GIVEN [facility] SOURCE: None given [facility] Statement Of Adequacy: [employer] Comment: Satisfactory for evaluation. Endocervical/transformation zone component present. Age and/or menstrual status not provided Interpretation/Re sult: Negative for intraepithelial lesion or malignancy. [employer] COMMENT: This Pap test has been evaluated with computer assisted technology. [employer] [employer]: Jose ruano [employer] Comment: DMM, CT(ASCP) CT screening location: [address] ??[phone] (Always Message) [employer] Comment: EXPLANATORY NOTE: The Pap is a [...] HPV nRNA E6/E7 Not Detected Not Detected [facility] Comment: Methodology: Clinical Appeals Specialist-Mediated Amplification This assay detects E6/E7 viral messenger RNA (mRNA) from 14 high-risk HPV types (16,18,31,33,35,39,45,51,52,56,58,59,66,68). Cervical sources are required for HPV testing. If a vaginal source from a patient who has had a total hysterectomy with removal of cervix was submitted, please contact the testing laboratory for alternative testing options. For additional information, please refer to http://[employer]/faq/HZH623o6 (This link if provided for information/ educational purposes only.) Chlamydia trachomatis RNA, TMA, Urogenital NOT DETECTED NOT DETECTED [facility] Neisseria gonorrhoeae RNA, TMA, Urogenital NOT DETECTED NOT DETECTED [facility]tail (Always Message) [facility] [employer] Comment: The analytical performance characteristics of this assay, when used to test SurePath(TM) specimens have been determined by [employer]. The modifications have not been cleared or approved by the FDA. This assay has been validated pursuant to the CLIA regulations and is used for clinical purposes. For additional information, please refer to https://[employer]/faq/DAF151 (This link is being provided for information/ educational purposes only.) Trichomonas vaginalis, QL, TMA, PAP Vial NOT DETECTED NOT DETECTED Z[facility] Comment: The analytical performance characteristics of this assay have been determined by [employer]. The modifications have not been cleared or approved by the FDA. This assay has been validated pursuant to the CLIA regulations and is used for clinical purposes. For additional information, please refer to http://[employer]/ faq/Trichomonastma (This link is being provided for information/ educational purposes only.) 04/08/2022 4:21 PM EST 04/09/2022 11:04 AM EST Narrative [facility] - 04/14/2022 10:42 AM EST FASTING: UNKNOWN Pola MANN LAB PATHOLOGY ORDERABLES Final Result [facility] [address] [facility], 3rd Fl, [place] [address] [employer] [address], ([address]) [place] [address] * (ABNORMAL) LIPID PANEL, STANDARD (09/10/2021 10:54 AM EDT) Chol/HDLC Ratio 4.2 <5.0 (calc) [facility] Cholesterol, Total 171 <200 mg/dL [facility] HDL Cholesterol 41(L) > OR = 50 mg/dL [facility] LDL Cholesterol 100(H) mg/dL (calc) [facility] Comment: Reference range: <100 ?? Desirable range <100 mg/dL for primary prevention; ?? <70 mg/dL for patients with CHD or diabetic patients ?? with > or = 2 CHD risk factors. ?? LDL-C is now calculated using the Kika ?? calculation, which is a validated novel method providing ?? better accuracy than the Friedewald equation in the ?? estimation of LDL-C. ?? Artur GERMAN et al. GIANA. 2013;310(19): 9811-3182 ?? (http://education.[employer]/faq/OUH385) Non-HDL Cholesterol 130(H) <130 mg/dL (calc) [facility] Comment: For patients with diabetes plus 1 major ASCVD risk ?? factor, treating to a non-HDL-C goal of <100 mg/dL ?? (LDL-C of <70 mg/dL) is considered a therapeutic ?? option. Triglycerides 179(H) <150 mg/dL [facility] 09/10/2021 10:5 4 AM EDT us Jackie Abdi MD LAB BLOOD ORDERABLES Final Resul t [facility] [address] [place] [address], * HEPATITIS C AB W/REFL TO HCV RNA, QN, PCR (12/12/2020 10:12 AM EDT) HEPATITIS C ANTIBODY NON-REACT COLE NON-REACT COLE [facility] INDEX 0.09 <1.00 [facility] Comment: ?? HCV antibody was non-reactive. There is no laboratory ?? evidence of HCV infection. ?? In most cases, no further action is required. However, if recent HCV exposure is suspected, a test for HCV RNA (test code 13200) is suggested. ?? For additional information please refer to http://[employer]/faq/OJG52d1 (This link is being provided for informational/ educational purposes only.) ?? 12/12/2020 10:1 2 AM EDT us Hiren Garcia MD HISTORICAL/NON ORDERABLE LABS Fi nal Result [facility] [address] * HIV 1/2 ANTIGEN/ANTIBODY,FOURTH GENERATION W/RFL (12/12/2020 10:12 AM EDT) HIV-1/2 ANTIGEN AND ANTIBODIES, 4TH GENERATION W/ REFLEX NON-REACT COLE NON-REACT COLE [facility] Comment: HIV-1 antigen and HIV-1/HIV-2 [...] ? For additional information please refer to http://[employer]/faq/ZCW817 (This link is being provided for informational/ educational purposes only.) ? The performance of this assay has not been clinically validated in patients less than 2 years old. ?? 12/12/2020 10:1 2 AM EDT us Hiren Garcia MD LAB BLOOD ORDERABLES Final Resul t [facility] [address] from Last 3 Months or Most Recently Relevant to Health Maintenance Insurance [place] [facility] MEDICAID STAND ADULT Care Teams Epic Manager Relationship Specialty Start Date End Date Jackie Abdi MD [address] [place] [phone] PCP - General Family Medicine 04/29/13
== END 2024-06-29 09:37 | disposition home or self-care (01) ==
LOC: HO.HMGCX 09:36
PROVIDERS: PCP Student in an Organized Health Care Education/Training Program; Visit Provider Student in an Organized Health Care Education/Training Program
DX: R13.19 Other dysphagia (principal)
CPT/HCPCS: 76536

== ENCOUNTER → 2024-06-29 09:41 | Outpatient (BNV) | payer MEDICAID, SELFPAY | PROVIDERS: PCP Student in an Organized Health Care Education/Training Program; Visit Provider Radiology Diagnostic Radiology | DX: E04.2 Nontoxic multinodular goiter (principal) | CPT/HCPCS: 76536 ==

== ENCOUNTER 2024-07-29 09:19 | Outpatient (REF) | payer MEDICAID, SELFPAY ==
--- OUTSIDE RECORDS SUMMARY | 2024-07-29 09:56 | XMS_ITS | Encounter Summary ---
Author Organization [employer] Address [address] [facility] 7t [place] [address] Care Team Providers Care Core Oven Tender Name Role Phone Jackie Abdi MD Primary Care Provider [phone] Reason for Visit * Reason Comments Med Refill Encounter Details Date Type Department Care Team ([facility] st Contact Info) Description 11/13/2023 Refill [facility] [address] [place] [address] Jackie Abdi MD [address] [place] [address] Social History Tobacco Use Types Packs/Day Years [...] Description 09/21/2024 10:45 AM EDT Office Visit [facility] [address] [place] [address] Jackie Abdi MD [address] [place] [address] documented as of this encounter Visit Diagnoses Not on filedocumented in this encounter Additional Health Concerns Assessment Noted Time PHQ-9 Depression Total Score: 21 023 8:57 AM EDT documented as of this encounter Care Teams Core Oven Tender Relationship Specialty Start Date End Date Jackie Abdi MD [address] [place] [address] PCP - General Family Medicine 04/29/13 documented as of this encounter
--- OUTSIDE RECORDS SUMMARY | 2024-07-29 09:56 | XMS_ITS | Encounter Summary ---
Author Organization [employer] Address [address] [place] [address] [address] [place] [address] Care Team Providers Care Hazard Mitigation Officer Name Role Phone Jackie Abdi MD Primary Care Provider [phone] Encounter Details Date Type Department Care Team (Late st Contact Info) Description 10/01/2022 Abstract [facility] [address] [place] [address] Jackie Abdi MD [address] [place] [address] Social History Tobacco Use Types Packs/Day Years [...] Description 09/21/2024 10:45 AM EDT Office Visit [facility] [address] [place] [address] Jackie Abdi MD [address] [place] [address] documented as of this encounter Visit Diagnoses Not on filedocumented in this encounter Additional Health Concerns Assessment Noted Time PHQ-9 Depression Total Score: 21 023 8:57 AM EDT documented as of this encounter Care Teams Hazard Mitigation Officer Relationship Specialty Start Date End Date Jackie Abdi MD [address] [place] [address] PCP - General Family Medicine 04/29/13 documented as of this encounter
--- OUTSIDE RECORDS SUMMARY | 2024-07-29 09:56 | XMS_ITS | Encounter Summary ---
Author Organization [employer] Address [address] [facility] [address] 7t [place] [address] Care Team Providers Care Support Service Tech Name Role Phone Jackie Abdi MD Primary Care Provider [phone] Encounter Details Date Type Department Care Team (Late st Contact Info) Description 12/07/2023 Orders Only [facility] [address] [place] [phone] Hiren Garcia MD [address] [place], [place] [phone] Social History Tobacco Use Types Packs/Day Years [...] t he electric, gas, oil or water [employer] threatened to shut off services in your [...] 10:45 AM EDT Office Visit [facility] [address] [place] [address] Jackie Abdi MD [address] [place] [address] documented as of this encounter Procedures Procedure Name Priority Date/Time Associated Diagnosis Comments STRESS TEST WITH MYOCARDIAL PERFUSION Routine 01/01/2024 9:09 AM EDT documented in this encounter Results * Stress test with myocardial perfusion (01/01/2024 9:09 AM EDT) 01/01/2024 9:09 AM EDT Narrative [facility] - 01/04/2024 4:19 PM EDT ? [facility] ?[address] ?[place] [address] ?Nuclear Medicine Report ? Signed ? Patient: Philly,Sade ?MR#: [id number] ?? 4 ? : 1970 ?Acct:[id number] ? Age/Sex: 53 / F ?ADM Date: 10/04/24 ? Loc: HO.CARD ? Attending Rod Ricketts MD ? Ordering Physician: Abdelrahman Ricketts MD ?? Date of Service: 01/01/24 ?? Procedure(s): NM cardiolite stress test ?? Accession Number(s): [id number] ? cc: Jackie Abdi MD; Abdelramhan Ricketts MD ? EXERCISE MYOCARDIAL PERFUSION STUDY [...] DD/ 0909 ? TD/TT: 01/04/24 1200 ? Physician Non Invasive Cardiologist: ? Procedure Note Kaylyn Barnes - 01/04/[address] [place] [address] Nuclear Medicine Report Signed Patient: Gray Fraga#: [id number] 4 : 1970Acct:[id number] Age/Sex: 53 / FADM Date: 01/01/24 Loc: .[facility] Attending Dr: Abdelrahman Ricketts MD Ordering Physician: Abdelrahman Ricketts MD Date of Service: 01/01/24 Procedure(s): NM cardiolite stress test Accession Number(s): [id number] cc: Jackie Abdi MD; Abdelrahman Ricketts MD [...] 01/04/24 1616 DD/ 0909 TD/TT: 01/04/24 1200 Physician Non Invasive Cardiologist: [facility] External Provider CV STRE SS PROCEDURES Final Result [facility] [address] [place] [address] documented in this encounter Visit Diagnoses Not on filedocumented in this encounter Additional Health Concerns Assessment Noted Time PHQ-9 Depression Total Score: 21 023 8:57 AM EDT documented as of this encounter Care Teams Support Service Tech Relationship Specialty Start Date End Date Jackie Abdi MD [address] [place] [phone] PCP - General Family Medicine 04/29/13 documented as of this encounter
--- OUTSIDE RECORDS SUMMARY | 2024-07-29 09:56 | XMS_ITS | Encounter Summary ---
Author Organization [employer] Address [address] [facility] 7t [place] [address] Care Team Providers Care Cap Machine Operator Name Role Phone Jackie Abdi MD Primary Care Provider [phone] Reason for Visit * Reason Onset Date Comments Results 08/04/2023 Encounter Details Date Type Department Care Team ([facility] Contact Info) Description 08/04/2023 Telephone [facility] CH[facility] MED & PEDS [address] [place], [place] [phone] Jackie Abdi MD 505 [place] [address] Results Social History Tobacco Use Types Packs/Day [...] labs. Pt stated these were done by [facility] and that they diagnosed pt with [...] and culture Date when done: 08/02 Facility: [facility] Please contact pt at [phone] documented in this encounter Plan of Treatment Upcoming Encounters Date Type Department Care Team (Late st Contact Info) Description 09/21/2024 10:45 AM EDT Office Visit [facility] [address] [place] [address] Jackie Abdi MD [address] [place] [address] documented as of this encounter Visit Diagnoses Not on filedocumented in this encounter Additional Health Concerns Assessment Noted Time PHQ-9 Depression Total Score: 21 06/26/ 023 8:57 AM EDT documented as of this encounter Care Teams Cap Machine Operator Relationship Specialty Start Date End Date Jackie Abdi MD [address] [place] [address] PCP - General Family Medicine 04/29/13 documented as of this encounter
--- OUTSIDE RECORDS SUMMARY | 2024-07-29 09:56 | XMS_ITS | Clinical Summary ---
Author Organization 175 [facility] Address [address] [place] [address] Phone Care Team Providers Care Lye Boiler Name Role Phone Jackie Abdi MD Primary Care Provider [phone] Allergies Active Allergy Reactions Criticality Noted Date Comments Sulfamethoxazole-Trimethoprim Angioedema High 2023 Medications cholecalciferol (VITAMIN D-3) 1,250 mcg (50,000 unit) capsule Take 1 Capsule by mouth once a week. 4 Active MAGNESIUM CHLORIDE ORAL Take by mouth. Active multivitamin (MULTI-DAY ORAL) Take by mouth. Active omeprazole (PriLOSEC) [address] capsule TAKE 1 CAPSULE BY MOUTH TWICE DAILY 1 Active SIMVASTATIN ORAL Take by mouth. Active sucralfate (CARAFATE) 100 mg/mL suspension Take 10 mL by mouth 4 times daily. Take at least one dose at bedtime 4 Active simethicone 250 mg capsule Take 1 capsule by mouth 4 (four) times a day if needed (gassiness). 60 capsule 5 5 Active phentermine 15 mg capsuleIndication s:Class 1 obesity due to excess calories with body mass index (BMI) of 30.0 to 30.9 in adult, unspecified whether serious comorbidity present Take 1 capsule (15 mg total) by mouth 1 (one) time each day before breakfast. Max Daily Amount: 15 mg 30 each 5 09/29/19 25 Active topiramate (Topamax) 50 mg tabletIndications :Class 1 obesity due to excess calories with body mass index (BMI) of 30.0 to 30.9 in adult, unspecified whether serious comorbidity present Take 1 tablet (50 mg total) by mouth at bedtime. 30 each 2 5 09/29/19 25 Active levothyroxine (SYNTHROID, LEVOTHROID) 25 mcg tablet Take 1 tablet (25 mcg total) by mouth 1 (one) time each day. 5 07/01/19 26 Active polyethylene glycol (MIRALAX) 17 gram packetIndications :Chronic constipation Take 17 g by mouth 1 (one) time each day. 1530 g 5 10/26/19 25 Active zolpidem CR (Ambien CR) 6.25 mg CR tabletIndications :Class 1 obesity due to excess calories with body mass index (BMI) of 30.0 to 30.9 in adult, unspecified whether serious comorbidity present Take 1 tablet (6.25 mg total) by mouth at bedtime as needed for sleep. Do not crush, chew, or split. Max Daily Amount: 6.25 mg 30 tablet 5 07/17/19 25 Active Problems Problem Noted Date Diagnosed Date Bile-induced gastritis 03/08/2024 Nausea and vomiting 03/08/2024 Overweight (BMI 25.0-29.9) 04/22/2021 Eating disorder 10/11/2020 Hypercholesteremia 10/11/2020 Obstructive sleep apnea 10/11/2020 Overview (03/08/2024): CPAP Gastroesophageal reflux dise ase with esophagitis without hemorrhage 05/03/2020 Encounters Date Type Department Care Team Description 07/27/2024 11:00 AM EDT Office Visit Gastroenterology - [address] [place] [address] Piedad Gómez NP Bile-induced gastritis (Primary Dx); Bariatric surgery status; Chronic constipation 07/14/2024 9:00 AM EDT Office Visit Bariatric Surgery [address] [address] Aleksandar Heaton MD Gastroesophageal reflux disease, unspecified whether esophagitis present (Primary Dx) 06/16/2024 3:45 PM EDT Office Visit Bariatric Surgery [address] [address] Aleksandar Heaton MD Class 1 obesity due to excess calories with body mass index (BMI) of 30.0 to 30.9 in adult, unspecified whether serious comorbidity present (Primary Dx) 06/03/2024 2:40 PM EST Office Visit Gastroenterology - [place] 175 [facility] 175 [facility] 200 [place] [address] Artis Leyva PA Epigastric pain [...] (BMI) of 35.0 to 35.9 in adult ([facility] V24, [facility] V28) 05/03/2020 DX:Class 2 severe obe sity due to excess calories with serious comorbidity and body mass index (BMI) of 35.0 to 35.9 in adult ([facility]) Gastroesophageal reflux dise ase with [...] Value Date Recorded Sex Assigned at Female 07/15/2024 2:27 PM EDT Legal Sex Female 3:49 AM EST Gender Identity Female 07/15/2024 2:27 PM EDT Sexual Orientation Straight 07/15/2024 2: 27 PM EDT Obstetrics History Last Filed Vital Signs Vital Sign Reading Time Taken Comments Blood Pressure 115/75 07/27/2024 10:44 AM EDT Pulse 70 07/27/2024 10:44 AM EDT Temperature 36.6 ??C (97.8 ??F) 07/14/2024 9:40 AM ED T Respiratory Rate - - Oxygen Saturation 98% 07/27/2024 10:44 AM EDT Inhaled Oxygen Concentration - - Weight 66.2 kg (146 lb) 07/27/2024 10:44 AM EDT Height 149.9 cm (4' 11 ) 07/27/2024 10:44 AM EDT Body Mass Index 29.49 07/27/2024 10:44 AM EDT Plan of Treatment Upcoming Encounters Date Type Department Care Team (Late st Contact Info) Description 08/17/2024 1:30 PM EDT Consult Endocrinology [address] [address] Luis Enrique Orellana MD [address] [place] [address] 09/20/2024 8:00 AM EDT Appointment [facility] Xray [address] [place] [phone] 09/22/2024 1:45 PM EDT Office Visit Bariatric Surgery [facility] [address] [phone] Aleksandar Heaton MD [address] [address] 10/26/2024 10:40 AM EDT Office Visit Gastroenterology - [place] 175 [facility] 175 [facility] [address] [place] [address] Piedad Gómez, DEMETRIA 175 [facility] [place] [address] [place] [address] Health Maintenance Due Date Last Done Comments Breast Cancer Screening 1970 Cervical Cancer Screening: Pap Smear 1993 DTaP,Tdap,and Td Vaccines (2 - Td or Tdap) 01/18/2022 01/19/2012 Social Influencers of Health Screening 03/02/2022 Depression Screening 04/19/2025 04/19/2024 Colorectal Cancer Screening: FIT-DNA (Cologuard) 02/23/2026 02/23/2023 Cholesterol Screening (Lipid Panel) 06/17/2029 06/17/2024, 09/10/2021, 06/27/2020 HIV Screening Completed 12/12/2020 Hepatitis C [...] age to complete this topic Meningococcal B Vaccine Aged Out No l onger eligible based on patient's age to complete [...] to direct LDL (06/17/2024 10:12 AM EDT) Cholesterol 230(H) 0 - 200 mg/dL LAB CHEMISTRY METHOD 06/17/2024 2:13 PM EDT [facility] Triglycerides 155(H) 0 - 150 mg/dL LAB CHEMISTRY METHOD 06/17/2024 2:13 PM EDT [facility] HDL 48 >=40 mg/dL LAB CHEMISTRY METHOD 06/17/2024 2:13 PM EDT [facility] LDL Calculated 151(H) 0 - 100 mg/dL LAB CHEMISTRY METHOD 06/17/2024 2:13 PM EDT [facility] VLDL Cholesterol Cristofer 31 mg/dL LAB CHEMISTRY METHOD 06/17/2024 2:13 PM EDT [facility] Non HDL Chol. (LDL+VLDL) 182(H) <145 mg/dL LAB CHEMISTRY METHOD 06/17/2024 2:13 PM EDT [facility] Chol/HDL Ratio 4.8(H) 0.0 - 4.4 LAB CHEMISTRY METHOD 06/17/2024 2:13 PM EDT [facility] Blood Venous blood specimen / Unknown Venipuncture / Unknown 06/17/2024 10:12 AM EDT 06/17/2024 11:07 AM EDT Aleksandar Heaton MD LAB BLOOD ORDERABLES Final R esult [facility] [address] [place] [address], [place] [phone] * (ABNORMAL) Thyroid stimulating hormone (06/17/2024 10:12 AM EDT) TSH 5.21(H) 0.40 - 4.00 mcIU/mL LAB CHEMISTRY METHOD 06/17/2024 2:45 PM EDT [facility] Blood Venous blood specimen / Unknown Venipuncture / Unknown 06/17/2024 10:12 AM EDT 06/17/2024 11:07 AM EDT Aleksadnar Heaton MD LAB BLOOD ORDERABLES Final R esult [facility] [address] [place] [address], [place] [phone] * Hemoglobin A1c (06/17/2024 10:12 AM EDT) [facility] Hemoglobin A1C 5.9 <6.5 % LAB CHEMISTRY METHOD 06/17/2024 12:33 PM EDT [facility] Mean Bld Glu Estim. 123 mg/dL LAB CHEMISTRY METHOD 06/17/2024 12:33 PM EDT [facility] Blood Venous blood specimen / Unknown Venipuncture / Unknown 06/17/2024 10:12 AM EDT 06/17/2024 11:08 AM EDT us Aleksandar Heaton MD LAB BLOOD ORDERABLES Final R esult [facility] [address] [place] [address], [place] [phone] * Hepatic function panel (06/17/2024 10:12 AM EDT) [facility] Total Protein 7.1 6.0 - 8.0 g/dL LAB CHEMISTRY METHOD 06/17/2024 2:13 PM EDT [facility] Albumin 3.7 3.2 - 5.0 g/dL LAB CHEMISTRY METHOD 06/17/2024 2:13 PM EDT [facility] Total Bilirubin 0.3 0.0 - 1.4 mg/dL LAB CHEMISTRY METHOD 06/17/2024 2:13 PM T [facility] Bilirubin, Direct <0.1 0.0 - 0.3 mg/dL LAB CHEMISTRY METHOD 06/17/2024 2:13 PM T [facility] Bilirubin, Indirect LAB CHEMISTRY METHOD 06/17/2024 2:13 PM EDT [facility] Comment:Unable to calculate Indirect Bilirubin. ALT (SGPT) 19 10 - 60 unit/L LAB CHEMISTRY METHOD 06/17/2024 2:13 PM EDT [facility] AST (SGOT) 14 10 - 42 unit/L LAB CHEMISTRY METHOD 06/17/2024 2:13 PM EDT [facility] Alkaline Phosphatase 93 42 - 121 unit/L LAB CHEMISTRY METHOD 06/17/2024 2:13 PM EDT [facility] Blood Venous blood specimen / Unknown Venipuncture / Unknown 06/17/2024 10:12 AM EDT 06/17/2024 11:07 AM EDT us Aleksandar Heaton MD LAB BLOOD ORDERABLES Final R esult [facility] [address] [place] [address], * Hepatitis C Screening (09/22/2023) [facility] Hepatitis C Screening abstracted Historical Provider HEALTH MAINTENANCE Final Result from Last 3 Months or Most Recently Relevant to Health Maintenance Insurance MEDICAID - [place] Care Teams Lye Boiler Relationship Specialty Start Date End Date Jackie Abdi MD [address] [place] [address] PCP - General 10/20/16
--- OUTSIDE RECORDS SUMMARY | 2024-07-29 09:56 | XMS_ITS | Encounter Summary ---
Author Organization [employer] Address [address] [facility] 7t [place] [address] Care Team Providers Care Fruit Distributor Name Role Phone Jackie Abdi MD Primary Care Provider [phone] Reason for Visit * Reason Onset Date Comments call back 06/03/2022 Encounter Details Date Type Department Care Team ([facility] st Contact Info) Description 06/03/2022 Telephone [facility] MEDICINE [address] [place] [address] Jackie Abdi MD [address] [place] [address] call back Social History Tobacco Use Types [...] a call back. Please contact pt at [phone] documented in this encounter Plan of Treatment Upcoming Encounters Date Type Department Care Team ([facility] st Contact Info) Description 09/21/2024 10:45 AM EDT Office Visit [facility] MED & PEDS [address] [place] [address] Jackie Abdi MD [address] [place] [address] documented as of this encounter Visit Diagnoses Not on filedocumented in this encounter Care Teams Fruit Distributor Relationship Specialty Start Date End Date Jackie Abdi MD [address] [place] [id number] PCP - General Family Medicine 04/29/13 documented as of this encounter
--- OUTSIDE RECORDS SUMMARY | 2024-07-29 09:56 | XMS_ITS | Encounter Summary ---
Author Organization [employer] Address [address] [facility] 7t [place] [address] Care Team Providers Care Tooling Manager Name Role Phone Jackie Abdi MD Primary Care Provider [phone] Reason for Visit * Reason Onset Date Comments toddler guide 09/09/2023 Encounter Details Date Type Department Care Team (Late st Contact Info) Description 09/09/2023 Telephone [facility]ULT [facility]AL [address] [place] [address] Sharon Fernandez DMD toddler guide Social History Tobacco Use Types Packs/Day Years [...] t he electric, gas, oil or water [employer] threatened to shut off services in your [...] Patient called in stating hat she contacted [facility] to see where she can go [...] Description 09/21/2024 10:45 AM EDT Office Visit [facility]EDS [address] [place] [address] Jackie Abdi MD [address] [place] [address] documented as of this encounter Visit Diagnoses Not on filedocumented in this encounter Additional Health Concerns Assessment Noted Time PHQ-9 Depression Total Score: 21 023 8:57 AM EDT documented as of this encounter Care Teams Tooling Manager Relationship Specialty Start Date End Date Jackie Abdi MD [address] [place] [id number] PCP - General Family Medicine 04/29/13 documented as of this encounter
--- OUTSIDE RECORDS SUMMARY | 2024-07-29 09:56 | XMS_ITS | Encounter Summary ---
Author Organization [employer] Address [address] [facility] 7t [place] [address] Care Team Providers Care Plastic Welder Name Role Phone Jackie Abdi MD Primary Care Provider [phone] Reason for Visit * Reason Onset Date Comments Appt materials 01/21/2023 Encounter Details Date Type Department Care Team (Late st Contact Info) Description 01/21/2023 Telephone [facility] ADULT [facility]AL [address] [place] [address] Sharon Fernandez DMD Appt materials Social History [...] t he electric, gas, oil or water [employer] threatened to shut off services in your [...] Description 09/21/2024 10:45 AM EDT Office Visit [facility] MED & PEDS [address] [place] [address] Jackie Abdi MD 505 [place] [address] documented as of this encounter Visit Diagnoses Not on filedocumented in this encounter Additional Health Concerns Assessment Noted Time PHQ-9 Depression Total Score: 21 023 8:57 AM EDT documented as of this encounter Care Teams Plastic Welder Relationship Specialty Start Date End Date Jackie Abdi MD [address] [place] [phone] PCP - General Family Medicine 04/29/13 documented as of this encounter
--- OUTSIDE RECORDS SUMMARY | 2024-07-29 09:56 | XMS_ITS | Encounter Summary ---
Author Organization [employer] [facility] Address [address] [place] [address] 7 [place] [address] Care Team Providers Care Locomotive Operator Helper Name Role Phone Jackie Abdi MD Primary Care Provider [phone] Reason for Visit * Reason Onset Date Comments Med Refill 12/05/2022 Encounter Details Date Type Department Care Team (Late st Contact Info) Description 12/05/2022 Refill [facility] MED & PEDS [address] [place] [address] Abby Duran MD Social History Tobacco Use [...] Description 09/21/2024 10:45 AM EDT Office Visit [facility] MED & PEDS [address] [place] [address] Jackie Abdi MD 505 [place] [address] documented as of this encounter Visit Diagnoses Not on filedocumented in this encounter Additional Health Concerns Assessment Noted Time PHQ-9 Depression Total Score: 21 023 8:57 AM EDT documented as of this encounter Care Teams Locomotive Operator Helper Relationship Specialty Start Date End Date Jackie Abdi MD [address] [place] [address] PCP - General Family Medicine 04/29/13 documented as of this encounter
--- OUTSIDE RECORDS SUMMARY | 2024-07-29 09:56 | XMS_ITS | Encounter Summary ---
Author Organization [employer] Address [address] [place] [address] 7 [place] [address] Care Team Providers Care Brass Finisher Name Role Phone Jackie Abdi MD Primary Care Provider [phone] Reason for Visit * Reason Onset Date Comments Med Refill 10/24/2022 Encounter Details Date Type Department Care Team (Late st Contact Info) Description 10/24/2022 Refill [facility] MEDICINE [address] [place] [address] Jackie Abdi MD [address] [place] [address] Social History Tobacco Use Types Packs/Day Years [...] 09/21/2024 10:45 AM EDT Office Visit [facility] CHC MED & PEDS [address] [place], [place] [phone] Jackie Abdi MD [address] [place], [place] [phone] documented as of this encounter Visit Diagnoses Not on filedocumented in this encounter Additional Health Concerns Assessment Noted Time PHQ-9 Depression Total Score: 21 023 8:57 AM EDT documented as of this encounter Care Teams Brass Finisher Relationship Specialty Start Date End Date Jackie Abdi MD [address] [place] [address] [place] [address] PCP - General Family Medicine 04/29/13 documented as of this encounter
--- OUTSIDE RECORDS SUMMARY | 2024-07-29 09:56 | XMS_ITS | Encounter Summary ---
Author Organization [employer] Address [address] [facility] 7t [place] [address] Care Team Providers Care Llama Farmer Name Role Phone Jackie Abdi MD Primary Care Provider [phone] Encounter Details Date Type Department Care Team ([facility] st Contact Info) Description 03/11/2023 Abstract [facility] [address] [place] [address] Jackie Abdi MD [address] [place] [address] Social History Tobacco Use Types Packs/Day Years [...] Description 09/21/2024 10:45 AM EDT Office Visit [facility] MED & PEDS [address] [place] [address] Jackie Abdi MD 505 [place] [address] documented as of this encounter Visit Diagnoses Not on filedocumented in this encounter Additional Health Concerns Assessment Noted Time PHQ-9 Depression Total Score: 21 023 8:57 AM EDT documented as of this encounter Care Teams Llama Farmer Relationship Specialty Start Date End Date Jackie Abdi MD [address] [place] [address] PCP - General Family Medicine 04/29/13 documented as of this encounter
--- OUTSIDE RECORDS SUMMARY | 2024-07-29 09:56 | XMS_ITS | Encounter Summary ---
Author Organization [employer] Address [address] [facility] 7t [place] [address] Care Team Providers Care Railroad Police Officer Name Role Phone Jackie Abdi MD Primary Care Provider [phone] Reason for Visit * Reason Onset Date Comments Results 04/30/2022 Encounter Details Date Type Department Care Team ([facility] Contact Info) Description 04/30/2022 Telephone [facility] MEDICINE [address] [place] [address] Jackie Abdi MD [address] [place] [address] Results Social History Tobacco Use Types Packs/Day [...] regarding xray results Please contact pt at [phone] documented in this encounter Plan of Treatment Upcoming Encounters Date Type Department Care Team (Late st Contact Info) Description 09/21/2024 10:45 AM EDT Office Visit [facility] CHC MED & PEDS [address] [place] [address] Jackie Abdi MD [address] [place] [address] documented as of this encounter Visit Diagnoses Not on filedocumented in this encounter Care Teams Railroad Police Officer Relationship Specialty Start Date End Date Jackie Abdi MD [address] [place] [id number] PCP - General Family Medicine 04/29/13 documented as of this encounter
--- OUTSIDE RECORDS SUMMARY | 2024-07-29 09:56 | XMS_ITS | Encounter Summary ---
Author Organization [employer] Address [address] [facility] 7t [place] [address] Care Team Providers Care Garage Door Service Technician Name Role Phone Jackie Abdi MD Primary Care Provider [phone] Reason for Visit * Reason Onset Date Comments Referral 08/26/2023 Encounter Details Date Type Department Care Team ([facility] st Contact Info) Description 08/26/2023 Telephone [facility] MEDICINE [address] [place] [address] Jackie Abdi MD [address] [place] [address] Referral Social History Tobacco Use Types Packs/Day [...] EDT Tc from pt was advised by [facility] office to request new referral due not being seen until 2020. Address: [address] [place] [address] [address] [facility] [address] Facility Name: [facility]. Type of Specialist: Tankman Pt is also requesting referral for a urologist and or waste disposal leakage tester due to some recent concerns. (Ptwas triaged) If any questions please contact pt at [phone]. documented in this encounter Plan of Treatment Upcoming Encounters Date Type Department Care Team ([facility] st Contact Info) Description 09/21/2024 10:45 AM EDT Office Visit [facility] MED & PEDS [address] [place] [address] Jackie Abdi MD [address] [place] [address] documented as of this encounter Visit Diagnoses Not on filedocumented in this encounter Additional Health Concerns Assessment Noted Time PHQ-9 Depression Total Score: 21 023 8:57 AM EDT documented as of this encounter Care Teams Garage Door Service Technician Relationship Specialty Start Date End Date Jackie Abdi MD [address] [place] [address] PCP - General Family Medicine 04/29/13 documented as of this encounter
--- OUTSIDE RECORDS SUMMARY | 2024-07-29 09:56 | XMS_ITS | Clinical Summary ---
Author Organization [employer] Address [address] [facility] [address] [place] [address] Care Team Providers Care Manager Subway Name Role Phone Jackie Abdi MD Primary Care Provider [phone] Allergies Active Allergy Reactions Criticality Noted Date Comments Sulfamethoxazole-Trimethoprim Angioedema 2023 Medications Multiple Vitamin (Multi-Vitamin) tablet Take 1 tablet by mouth at bed time. Active cholecalciferol (Vitamin D-3) 1.25 MG (63822 UT) capsule Take 1 capsule by mouth. 021 Active amitriptyline (Elavil) 10 MG tablet Take 20 mg by mouth at bedtime. 023 Active triamcinolone (Kenalog) 0.5 % ointment APPLY TOPICALLY TO THE AFFECTED AREA TWICE DAILY 023 Active Enoxaparin Sodium 40 MG/0.4ML solution prefilled syringe INJECT CONTENTS OF 1 SYRINGE UNDER THE SKIN TWICE DAILY FOR 2 DAYS 023 Active SUMAtriptan (Imitrex) 50 MG tablet TAKE 1 TABLET BY MOUTH EVERY DAY FOR 9 DAYS 023 Active nortriptyline (Pamelor) 25 MG capsule Take 25 mg by mouth in the morning. 023 Active Estrogens Conjugated (Premarin) 0.625 MG/GM creamIndications:H ot flushes, perimenopausal Insert 0.625 mg into the vagina 2 (two) times a week. 30 g 3 024 Active verapamil (Calan) 40 MG tablet TAKE 1 TABLET BY MOUTH TWICE DAILY 180 tablet 024 Active FLUoxetine (PROzac) 10 MG capsule Take 1 capsule (10 mg) by mouth Once per day. 30 capsule 11 024 2024 Active dicyclomine (Bentyl) 10 MG capsuleIndications :History of cholecystectomy Take 1 capsule (10 mg) by mouth 3 times daily. 90 capsule 3 024 Active omeprazole (PriLOSEC) [address] capsule Take 1 capsule (40 mg) by mouth before breakfast. Do not crush or chew. 90 capsule 3 024 2024 Active Symbicort 80-4.5 MCG/ACT inhaler INHALE 2 PUFFS BY MOUTH TWICE DAILY 10.2 g 11 Active azelastine (Astelin) 0.1 % nasal spray USE 1 SPRAY IN EACH NOSTRIL TWICE DAILY 30 mL 11 Active meclizine (Antivert) 25 MG tablet TAKE 1 TABLET BY MOUTH EVERY MORNING, 1 TABLET AT NOON, AND 1 TABLET EVERY NIGHT AT BEDTIME NEEDED FOR DIZZINESS 30 tablet Active celecoxib (CeleBREX) 200 MG capsuleIndications :Acute pain of right shoulder TAKE 1 CAPSULE BY MOUTH TWICE DAILY 40 capsule 025 Active hydrOXYzine pamoate (Vistaril) 50 MG capsule TAKE 1 CAPSULE BY MOUTH TWICE DAILY 60 capsule 3 025 Active cyclobenzaprine (Flexeril) 10 MG tablet TAKE 1 TABLET(10 MG) BY MOUTH AT BEDTIME 30 tablet 025 Active loratadine (Claritin) 10 MG tablet Take 1 tablet (10 mg) by mouth Once per day. 30 tablet 11 025 2025 Active amoxicillin (Amoxil) 500 MG capsuleIndications :Pharyngitis, unspecified etiology Take 1 tab po bid for 10 days 20 capsule Active levothyroxine (Synthroid) 25 MCG tablet Take 1 tablet (25 mcg) by mouth before breakfast. 30 tablet 11 025 2025 Active levothyroxine (Synthroid) 25 MCG tablet Take 1 tablet (25 mcg) by mouth before breakfast. 30 tablet 11 025 2024 Discontinued(R eorder (will not trigger notification to Pharmacy)) Active Problems Problem Noted Date Diagnosed Date Heartburn 07/11/2024 H/O gastric bypass 07/11/2024 Pharyngitis 06/23/2024 Assessment & Plan (06/23/2024 2:00 [...] Encounters Date Type Department Care Team Description 07/07/2024 1:40 PM EDT Office Visit [facility] [address] [place] [address] Kaylin Kaur MD Hypothyroidism, unspecified type (Primary Dx); Heartburn; H/O gastric bypass 07/07/2024 Travel 07/07/2024 Telephone [facility] [address] [place] [phone] Jackie Abdi MD 06/30/2024 Telephone [facility] [address], [place] [phone] Jackie Abdi MD 06/30/2024 Telephone [facility] [address] [place] [address] Jackie Abdi MD Medication Question; Results 06/29/2024 Telephone [facility] [address] [place] [address] Jackie Abdi MD US NECK ORDER 06/23/2024 2:00 PM EDT Office Visit [facility] [address] [place] [phone] Yudith Davila MD Pharyngitis, unspecified etiology (Primary Dx) 06/23/2024 Telephone [facility] [address] [place], [place] [phone] Jackie Abdi MD Transition Of Care (Tcm) 06/23/2024 Travel 06/23/2024 Telephone [facility] [address] [place] [phone] Jackie Abdi MD 06/21/2024 10:00 AM EDT Office Visit [facility] [address] [place] [address] Jackie Abdi MD Esophageal dysphagia (Primary Dx); Eustachian catarrh, bilateral; Hypothyroidism, unspecified type 06/21/2024 Travel 06/20/2024 Travel 06/20/2024 Telephone [facility] [address] [place] [address] Jackie Abdi MD Chart Prep 06/10/2024 Population Health Risk Score [facility] ([facility]) Department [address] [phone] Provider, Population Health Generic 06/08/2024 Orders Only GENERIC EXTERNAL DATA DEPARTMENT Provider, Generic External Data 06/06/2024 Refill [facility] [address] [place] [address] Jackie Abdi MD 06/03/2024 Refill [facility] [address] [place] [address] Jackie Abdi MD 06/01/2024 Refill [facility] [address] [place] [address] Jackie Abdi MD Acute pain of right shoulder 05/08/2024 Refill [facility] [address] [place] [address] Jackie Abdi MD Acute pain of right shoulder from Last 3 Months Immunizations Name Administration [...] Sign Reading Time Taken Comments Blood Pressure 130/60 07/07/2024 1:48 PM EDT Pulse 61 07/07/2024 1:48 PM EDT Temperature 36.6 ??C (97.8 ??F) 07/07/2024 1:48 PM ED T Respiratory Rate 20 07/07/2024 1:48 PM EDT Oxygen Saturation 98% 07/07/2024 1:48 PM EDT Inhaled Oxygen Concentration - - Weight 63 kg (139 lb) 07/07/2024 1:48 PM EDT Height 149.9 cm (4' 11 ) 07/07/2024 1:48 PM EDT Body Mass Index 28.07 07/07/2024 1:48 PM EDT Plan of Treatment Upcoming Encounters Date Type Department Care Team (Late st Contact Info) Description 09/21/2024 10:45 AM EDT Office Visit [facility] [address] [place] [address] Jackie Abdi MD [address] [place] [address] Health Maintenance Due Date Last Done Comments CT Colonography 1972 Colonoscopy 1972 FIT 1972 FOBT 1972 Sigmoidoscopy 1972 Alcohol/Substance Use Screening 1984 Family Planning (PISQ) 1987 DTaP/Tdap/Td Vaccines (2 - Td or Tdap) 01/18/2022 01/19/2012 Dental X-Ray: Bitewings 05/27/2023 05/26/2022 Dental Oral Exam 09/10/2023 03/10/2023, 05/26/2022 Dental Prophylaxis 09/10/2023 03/10/2023, 06/27/2022 Depression Screening 04/19/2025 04/19/2024, 04/19/19 Dental X-Ray: Full Mouth 05/27/2025 05/26/2022 SDOH Screening 06/21/2025 06/21/2024 Tobacco Screening 07/07/2025 07/07/2024 Colorectal Cancer Screening 02/23/2026 FIT DNA/Cologuard 02/23/2026 [...] Name Priority Date/Time Associated Diagnosis Comments US THYROID Routine 06/29/2024 9:41 AM EDT POCT RAPID STREP A Routine 06/23/2024 2: [...] AM EST Screening mammogram for breast cancer PROPHYLAXIS - ADULT Routine 03/10/2023 2 :00 [...] Relevant to Health Maintenance Results * US Thyroid (06/29/2024 9:41 AM EDT) Anatomical Region Laterality Modality Head, Neck Ultrasound 06/29/2024 9:41 AM EDT Narrative 06/29/2024 11:52 AM EDT ? [facility] ?[address] ? [place] [address] ? Ultrasound Report ? Signed ? Patient: Philly,Sade ?MR#: [id number] ?? 4 ? : 1970 ?Acct:[id number] ? Age/Sex: 54 / F ?ADM Date: 06/29/24 ? Loc: HO.HMGCX ? Attending Dr: Jackie Abdi MD ? Ordering Physician: Jackie Abdi MD ?? Date of Service: 06/29/24 ?? Procedure(s): US thyroid ?? Accession Number(s): [id number] ? cc: Jackie Abdi MD ? EXAMINATION: ??US THYROID ? HISTORY: ? THYROID SWELLING ? TECHNIQUE: Real-time grayscale ultrasound imaging was performed and ?? images were reviewed. ? COMPARISON: There are no prior studies for comparison. ? FINDINGS: ?? SIZE: The right thyroid lobe measures 4.9 x 1.6 x 1.4 cm. ??The left ?? thyroid lobe measures 4.3 x 1.1 x 1.7 cm. ?? The isthmus measures 4 mm. ? FLOW: ??Flow to the gland is increased. ? ECHOGENICITY: ??The echotexture of the gland is heterogeneous. ? NODULES: ?? Multiple subcentimeter nodules are noted in both thyroid lobes as ?? described below: ? Nodule #: 1 ? Location: Right upper pole measuring 10 x 9 x 11 mm. ?? Shape: ??Wider than tall (0 points) ?? Margins: ??Smooth (0 points) ?? Echotexture: ??Hypoechoic (2 points) ?? Composition: ??Solid (2 points) ?? Calcifications: ??None (0 points) ?? Total points: 4 ?? TIRADS: TR4: Moderately suspicious. ? Nodule #: 2 ? Location: Midportion of the right thyroid lobe measuring 8 x 7 x 7 mm. ?? Shape: ??Wider than tall (0 points) ?? Margins: ??Smooth (0 points) ?? Echotexture: ??Very hypoechoic (3 points) ?? Composition: ??Solid (2 points) ?? Calcifications: ??None (0 points) ?? Total points: 5 ?? TIRADS: TR4: Moderately suspicious. ? Nodule #: 3 ? Location: Lower pole of the right thyroid lobe measuring 7 x 4 x 6 mm. ?? Shape: ??Wider than tall (0 points) ?? Margins: ??Smooth (0 points) ?? Echotexture: ??Very hypoechoic (3 points) ?? Composition: ??Solid (2 points) ?? Calcifications: ??None (0 points) ?? Total points: 5 ?? TIRADS: TR4: Moderately suspicious. ? Nodule #: 4 ? Location: Midportion of the left thyroid lobe measuring 9 x 5 x 6 mm. ?? Shape: ??Wider than tall (0 points) ?? Margins: ??Smooth (0 points) ?? Echotexture: ??Very hypoechoic (3 points) ?? Composition: ??Solid (2 points) ?? Calcifications: ??None (0 points) ?? Total points: 5 ?? TIRADS: TR4: Moderately suspicious. ? Nodule #: 5 ? Location: Midportion of the left thyroid lobe measuring 6 x 4 x 5 mm. ?? Shape: ??Wider than tall (0 points) ?? Margins: ??Smooth (0 points) ?? Echotexture: ??Hypoechoic (2 points) ?? Composition: ??Solid (2 points) ?? Calcifications: ??None (0 points) ?? Total points: 4 ?? TIRADS: TR4: Moderately suspicious. ? US/US thyroid ?? IMPRESSION: ?? Multinodular thyroid gland as described above. No nodule warrants ?? fine-needle aspiration at this time. ? ACR TI-RADS Guidelines ? TR1 (0 points): Benign, ??No follow-up or biopsy required ?? TR2 (2 points): Not Suspicious, ??No biopsy or follow up indicated ?? TR3 (3 points): Mildly Suspicious, ??FNA if >= 2.5 cm, Follow if >= 1.5 ?? cm ?? TR4 (4-6 points): Moderately Suspicious, FNA if >= 1.5 cm, Follow if >= ?? 1.0 cm ?? TR5 (>=7 points): Highly Suspicious, ??FNA if >= 1.0 cm, Follow if >= ?? 0.5 cm ? Electronically signed by: ??Vamsi Canales MD ??06/29/2024 11:48 AM EDT ?? RP ? Dictated By: ?Vamsi Canales MD ? Signed By: ?<Electronically signed by Vamsi Canales MD in OV> ?06/29/241147 ? DD/ 0941 ? TD/TT: 06/29/24 1010 ? Pressing Department Supervisor: ? Procedure Note Donjennifer, Kaylyn - 06/29/2024 [facility] [address] [place] [address] [place] [address] Ultrasound Report Signed Patient: Gray Fraga#: [id number] 4 : 1970Acct:[id number] Age/Sex: 54 / FADM Date: 06/29/24 Loc: HO.HMGCX Attending Dr: Jackie Abdi MD Ordering Physician: Jackie Abdi MD Date of Service: 06/29/24 Procedure(s): US thyroid Accession Number(s): [id number] cc: Jackie Abdi MD EXAMINATION: US THYROID HISTORY: ? THYROID SWELLING TECHNIQUE: Real-time grayscale ultrasound imaging was performed and images were reviewed. COMPARISON: There are no prior studies for comparison. FINDINGS: SIZE: The right thyroid lobe measures 4.9 x 1.6 x 1.4 cm. The left thyroid lobe measures 4.3 x 1.1 x 1.7 cm. The isthmus measures 4 mm. FLOW: Flow to the gland is increased. ECHOGENICITY: The echotexture of the gland is heterogeneous. NODULES: Multiple subcentimeter nodules are noted in both thyroid lobes as described below: Nodule #: 1 Location: Right upper pole measuring 10 x 9 x 11 mm. Shape: Wider than tall (0 points) Margins: Smooth (0 points) Echotexture: Hypoechoic (2 points) Composition: Solid (2 points) Calcifications: None (0 points) Total points: 4 TIRADS: TR4: Moderately suspicious. Nodule #: 2 Location: Midportion of the right thyroid lobe measuring 8 x 7 x 7 mm. Shape: Wider than tall (0 points) Margins: Smooth (0 points) Echotexture: Very hypoechoic (3 points) Composition: Solid (2 points) Calcifications: None (0 points) Total points: 5 TIRADS: TR4: Moderately suspicious. Nodule #: 3 Location: Lower pole of the right thyroid lobe measuring 7 x 4 x 6 mm. Shape: Wider than tall (0 points) Margins: Smooth (0 points) Echotexture: Very hypoechoic (3 points) Composition: Solid (2 points) Calcifications: None (0 points) Total points: 5 TIRADS: TR4: Moderately suspicious. Nodule #: 4 Location: Midportion of the left thyroid lobe measuring 9 x 5 x 6 mm. Shape: Wider than tall (0 points) Margins: Smooth (0 points) Echotexture: Very hypoechoic (3 points) Composition: Solid (2 points) Calcifications: None (0 points) Total points: 5 TIRADS: TR4: Moderately suspicious. Nodule #: 5 Location: Midportion of the left thyroid lobe measuring 6 x 4 x 5 mm. Shape: Wider than tall (0 points) Margins: Smooth (0 points) Echotexture: Hypoechoic (2 points) Composition: Solid (2 points) Calcifications: None (0 points) Total points: 4 TIRADS: TR4: Moderately suspicious. US/US thyroid IMPRESSION: Multinodular thyroid gland as described above. No nodule warrants fine-needle aspiration at this time. ACR TI-RADS Guidelines TR1 (0 points): Benign, No follow-up or biopsy required TR2 (2 points): Not Suspicious, No biopsy or follow up indicated TR3 (3 points): Mildly Suspicious, FNA if >= 2.5 cm, Follow if >= 1.5 cm TR4 (4-6 points): Moderately Suspicious, FNA if >= 1.5 cm, Follow if >= 1.0 cm TR5 (>=7 points): Highly Suspicious, FNA if >= 1.0 cm, Follow if >= 0.5 cm Electronically signed by: Vamsi Canales MD 06/29/2024 11:48 AM EDT RP Dictated By: Vamsi Canales MD Signed By: <Electronically signed by Vamsi Canales MD in OV> 06/29/24 1148 DD/ 0941 TD/TT: 06/29/24 1010 Pressing Department Supervisor: Jackie Abdi MD [facility] PROCEDURES Edited Result - Final * Influenza B (ID NOW Rapid Molecular) (06/23/2024 2:00 PM EDT) [facility] Influenza B Negative Negative, Indeterminate [facility] Swab 06/23/2024 2:00 PM EDT Yudith Davila MD POINT OF CARE TEST ENTER/E DIT ORDERABLES Final Result Performing Organization Address [facility] [[email or web address]] Co de Phone Number [facility] [address] [place] [phone] * Influenza A (ID NOW Rapid Molecular) (06/23/2024 2:00 PM EDT) [facility] Influenza A Negative Negative, Indeterminate [facility] Swab 06/23/2024 2:00 PM EDT Yudith Davila MD POINT OF CARE TEST ENTER/E DIT ORDERABLES Final Result Performing Organization Address [facility] [[email or web address]] Co de Phone Number [facility] [address] [place] [phone] * POCT Rapid COVID Ag (06/23/2024 2:00 PM EDT) [facility] Rapid COVID Ag Negative Swab 06/23/2024 2:00 PM EDT Yudith Davila MD POINT OF CARE TEST ENTER/E DIT ORDERABLES Final Result * POCT rapid strep A manually resulted (06/23/2024 2:00 PM EDT) Rapid Strep A Screen Negative Negative, None Detected Swab 06/23/2024 2:00 PM EDT Yudith Davila MD POINT OF CARE TEST ENTER/E DIT ORDERABLES Final Result * Culture, Throat (06/23/2024 12:00 AM EDT) Throat Structure of anterior portion of neck / Unknown 06/23/2024 06/23/2024 Comment:Throat Narrative [facility] - 06/25/2024 8:50 AM EDT Throat Culture No Group A Beta-hemolytic Streptococci isolated. Specimen Source: Throat Yudith Davila MD LAB MICROBIOLOGY - GENERAL ORDERABLES Final Result [facility] [address] [place] [address] [phone] * MR Shoulder w/o Contrast Right (06/10/2024 3:36 PM EDT) Anatomical Region Laterality Modality Upper Extremities, Shoulder Right Magn etic Resonance 06/10/2024 3:36 PM EDT Narrative 06/10/2024 3:38 PM EDT ? [facility] ?[address] ?[place] [address] ? Magnetic Resonance Report ? Signed ? Patient: Philly,Sade ?MR#: [id number] ?? 4 ? : 1970 ?Acct:[id number] ? Age/Sex: 54 / F ?ADM Date: 03//25 ? Loc: HO.MRI ? Attending Dr: Alonzo Rivas PA-C ? Ordering Physician: Alonzo Rivas PA-C ?? Date of Service: 06/07/24 ?? Procedure(s): MR shoulder RT wo con ?? Accession Number(s): [id number] ? cc: Alonzo Rivas PA-C; Jackie Abdi [...] by Christian Nicolas MD in OV> ? 06/10/24 1537 ? DD/ 153 ? TD/TT: 06/10/241535 ? Pressing Department Supervisor: ? Procedure Note Kaylyn Barnes - 06/10/[address] [address] Magnetic Resonance Report Signed Patient: Sade FragaMR#: [id number] 4 : 1970Acct:[id number] Age/Sex: 54 / FADM Date: 06/07/24 Loc: HO.MRI Attending Dr: Alonzo Rivas PA-C Ordering Physician: Alonzo Rivas PA-C Date of Service: 06/07/24 Procedure(s): MR shoulder RT wo con Accession Number(s): [id number] cc: Alonzo Rivas PA-C; Jackie Abdi MD [...] 06/10/24 1537 DD/ 1536 TD/TT: 06/10/24 1536 Pressing Department Supervisor: [facility] External Provider IMG MRI PROCEDURES Final Result * Culture, Urine, Routine (06/08/2024 11:28 AM EDT) Urine Urine specimen obtained by clean catch procedure / Unknown 06/08/2024 11:28 AM EDT 06/08/2024 4:23 PM EDT Comment:[facility] - 06/10/2024 7:42 AM EDT Escherichia coli Quant 10,000 to 50,000 cfu/mL Escherichia coli: Ampicillin 8(S) Escherichia coli: Cefazolin (Urine) 2(S) Escherichia coli: Cefepime <=0.12(S) Escherichia coli: Ceftriaxone <=0.25(S) Escherichia coli: Ciprofloxacin <=0.06(S) Escherichia coli: Gentamicin <=1(S) Escherichia coli: Nitrofurantoin <=16(S) Escherichia coli: Trimethoprim/Sulfamethoxazole <=20(S) Specimen Source: Urine clean catch us Generic External Data Provider LAB MICROBIOLOGY - GENERAL ORDERABLES Final Result [facility] [address] [place] [address] [phone] * BI Mammogram Screening Tomosynthesis Bilateral (06/03/2024 9:45 AM EST) Anatomical Region Laterality Modality Breast Bilateral Mammography 06/03/2024 9:45 AM EST Narrative 06/12/2024 4:59 PM EDT ? [facility] ? [address] ?[place] [address] ? Mammography Report ? Signed ? Patient: Philly,Sade ?MR#: [id number] ?? 4 ? : 1970 ?Acct:[id number] ? Age/Sex: 54 / F ?ADM Date: 06/03/ ? Loc: HO.MAMMO ? Attending Dr: Pola Maldonado CNM ? Ordering Physician: POLA MALDONADO CNM ?Results: 1 ?? Negative ? Date of Service: 06/03/ ?Follow Up: 1 Year From Orig ?? inal Mammogram ? Procedure(s): MM tomosynthesis screening BI ?? Accession Number(s): [id number] ? cc: Jackie Abdi MD; POLA MALDONADO [...] ??06/12/2024 04:56 PM EDT ? Dictated By: ?Marisol,Connie DO ? Signed By: ?<Electronically signed by Connie Damon, DO in OV> ? 06/12/24 1656 ? DD/ 0945 ? TD/TT: 06/03/24 1010 ? Pressing Department Supervisor: ? Procedure Note Molly, Kaylyn - 06/12/2024 [facility] [address] [place] [address] [place] [address] Mammography Report Signed Patient: Sade Fraga#: [id number] 4 : 1970Acct:[id number] Age/Sex: 54 / FADM Date: 06/03/24 Loc: HO.MAMMO Attending Dr: Pola Maldonado CNM Ordering Physician: POLA MALDONADOesults: 1 Negative Date of Service: 06/03/24Follow Up: 1 Year From Orig ina Mammogram Procedure(s): MM tomosynthesis screening BI Accession Number(s): [id number] cc: Jackie Abdi MD; POLA MALDONADO CNM [...] 06/12/24 1656 DD/ 0945 TD/TT: 06/03/24 1010 Pressing Department Supervisor: Pola Maldonado CNM IM BI PROCEDURES Final R esult * Cologuard?? colon cancer screening (02/23/2023 10:44 AM EST) Cologuard Result Negative Negative 03/01/20 3:14 PM EST [facility] (CLIA #:[id number]) Comment: NEGATIVE TEST RESULT. A negative Cologuard [...] screened with both Cologuard and colonoscopy. (Javi Arevalo et al, N Engl J Med 2014;370(14):1286- 1297) The normal value (reference range) for this assay is negative. COLOGUARD RE-SCREENING RECOMMENDATION: Periodic colorectal cancer screening is an important part of preventive healthcare for asymptomatic individuals at average risk for colorectal cancer. ??Following a negative Cologuard result, the [place] Cancer Society and U.S. Multi-Society Task Force screening guidelines recommend a Cologuard re-screening interval of 3 years. References: [place] [employer] Society Guideline for Colorectal Cancer Screening: https://www.cancer.org/cancer/otqgx-deawyx-xbpnlh/hntflbivc-tspzrjzat-xvazpnf/ac s-rec ommendations.html.; Bean OVALLES, Mitchell GAO, Dank WeberK, Colorectal Cancer Screening: Recommendations for Physicians and Patients from the U.S. Multi-Society Task Force on Colorectal Cancer Screening , Am J Gastroenterology 2017; 112:8803-3953. TEST DESCRIPTION: Composite algorithmic analysis of stool [...] screened with both Cologuard and colonoscopy. (Javi Arevalo et al, N Engl J Med 2014;370(14):4530-2572.) Cologuard may produce a false negative or false positive result (no colorectal cancer or precancerous polyp present at colonoscopy follow up). A negative Cologuard test result does not guarantee the absence of CRC or advanced adenoma (pre-cancer). The current Cologuard screening interval is every 3 years. ([place] Cancer Society and U.S. Multi-Society Task Force). Cologuard performance data in a 10,000 patient pivotal study using colonoscopy as the reference method can be accessed at the following location: www.[employer]/results. Additional description of the Cologuard test process, warnings and precautions can be found at www.[employer] Mail. Stool specimen (specimen) 02/23/2023 10:44 AM EST 02/24/2023 1:44 PM EST Jackie Abdi MD LAB MOLECULAR DIAGNOSTICS ORDERA BLES Final Result [facility] (CLIA #:[id number]) [place] [address], * Thinprep TIS PAP And HPV mRNA E6/E7, CT/NG, TRICH (04/08/2022 4:21 PM EST) Clinical Information: SCREENING, PELVIC PAIN [facility] LMP: NONE GIVEN [facility] Prev. PAP: NONE GIVEN [facility] Prev. BX: NONE GIVEN [facility] SOURCE: None given [facility] Statement Of Adequacy: [facility] Comment: Satisfactory for evaluation. Endocervical/transformation zone component present. Age and/or menstrual status not provided Interpretation/Re sult: Negative for intraepithelial lesion or malignancy. [facility] [employer] COMMENT: This Pap test has been evaluated with computer assisted technology. [facility] [employer] Mate Relief: Jose ruano [facility] [employer] Comment: DMM, CT(ASCP) CT screening location: [address] ??[phone] (Always Message) [facility] [employer] Comment: EXPLANATORY NOTE: The Pap is a [...] HPV nRNA E6/E7 Not Detected Not Detected [employer] Comment: Methodology: Jewel Lathe Operator-Mediated Amplification This assay detects E6/E7 viral messenger RNA (mRNA) from 14 high-risk HPV types (16,18,31,33,35,39,45,51,52,56,58,59,66,68). Cervical sources are required for HPV testing. If a vaginal source from a patient who has had a total hysterectomy with removal of cervix was submitted, please contact the testing laboratory for alternative testing options. For additional information, please refer to http://[employer].[email or web address]/faq/BDZ006f6 (This link if provided for information/ educational purposes only.) Chlamydia trachomatis RNA, TMA, Urogenital NOT DETECTED NOT DETECTED [employer] Neisseria gonorrhoeae RNA, TMA, Urogenital NOT DETECTED NOT DETECTED [employer] (Always Message) [employer] Comment: The analytical performance characteristics of this assay, when used to test SurePath(TM) specimens have been determined by [employer]. The modifications have not been cleared or approved by the FDA. This assay has been validated pursuant to the CLIA regulations and is used for clinical purposes. For additional information, please refer to https://[employer].[email or web address]/faq/YAW991 (This link is being provided for information/ educational purposes only.) Trichomonas vaginalis, QL, TMA, PAP Vial NOT DETECTED NOT DETECTED [facility] [place] [facility] Comment: The analytical performance characteristics of this assay have been determined by EPS. The modifications have not been cleared or approved by the FDA. This assay has been validated pursuant to the CLIA regulations and is used for clinical purposes. For additional information, please refer to http://Navagis.Bingo.com/ faq/Trichomonastma (This link is being provided for information/ educational purposes only.) 04/08/2022 4:21 PM EST 04/09/2022 11:04 AM EST Narrative [facility] - 04/14/2022 10:42 AM EST FASTING: UNKNOWN Pola Maldonado [facility] LAB PATHOLOGY ORDERABLES Final Result [facility] [address], [place] [address] [facility] 200 [facility], (Nl2) [place] [address] * (ABNORMAL) LIPID PANEL, STANDARD (09/10/2021 10:54 [...] ?? Artur GERMAN et al. GIANA. 2013;310(19): 0567-5899 ?? (http://education.Oculeve/faq/CMH410) Non-HDL Cholesterol 130(H) <130 mg/dL (calc) [facility] Comment: For patients with diabetes plus 1 major ASCVD risk ?? factor, treating to a non-HDL-C goal of <100 mg/dL ?? (LDL-C of <70 mg/dL) is considered a therapeutic ?? option. Triglycerides 179(H) <150 mg/dL [facility] 09/10/2021 10:5 4 AM EDT Jackie Abdi MD LAB BLOOD ORDERABLES Final Resul t Performing Organization Address [facility] [[email or web address]] Co de Phone Number [facility] [address] [place] [address], * HEPATITIS C AB W/REFL TO HCV RNA, QN, PCR (12/12/2020 10:12 AM EDT) HEPATITIS C ANTIBODY NON-REACT COLE NON-REACT COLE [facility] INDEX 0.09 <1.00 [facility] Comment: ?? HCV antibody was non-reactive. There is no laboratory ?? evidence of HCV infection. ?? In most cases, no further action is required. However, if recent HCV exposure is suspected, a test for HCV RNA (test code 26492) is suggested. ?? For additional information please refer to http://education.Bingo.com/faq/IYC37a2 (This link is being provided for informational/ educational purposes only.) ?? 12/12/2020 10:1 2 AM EDT Hiren Garcia MD HISTORICAL/NON ORDERABLE LABS Fi nal Result Performing Organization Address [facility] de Phone Number [facility] [address] [place] [address], * HIV 1/2 ANTIGEN/ANTIBODY,FOURTH GENERATION W/RFL (12/12/2020 [...] ? For additional information please refer to http://Navagis.Bingo.com/faq/HAX815 (This link is being provided for informational/ educational purposes only.) ? The performance of this assay has not been clinically validated in patients less than 2 years old. ?? 12/12/2020 10:1 2 AM EDT us Hiren Garcia MD LAB BLOOD ORDERABLES Final Resul t Performing Organization Address City/State/ZIP Co mn Phone Number [facility] [address] from Last 3 Months or Most Recently Relevant to Health Maintenance [place] [address] [place] [address] C3 [facility] MEDICAID STAND ADULT Care Teams Manager Subway Relationship Specialty Start Date End Date Jackie Abdi MD [address] [place] [address] PCP - General Family Medicine 04/29/13
--- OUTSIDE RECORDS SUMMARY | 2024-07-29 09:56 | XMS_ITS | Encounter Summary ---
Author Organization [employer] Address 75 [facility] 7t [place] [address] Care Team Providers Care On Site Construction Superintendent Name Role Phone Jackie Abdi MD Primary Care Provider [phone] Encounter Details Date Type Department Care Team (Late Contact Info) Description 06/03/2022 Orders Only [facility] MED & PEDS [address] [place] [address] Kaylin Kaur MD 505 [place] [address] Mid-back pain, acute (Primary Dx) Social History [...] 10:45 AM EDT Office Visit [facility] MED & PEDS 505 [place], [place] [phone] Jackie Abdi MD [address] [place] [address] documented as of this encounter Visit Diagnoses Diagnosis Mid-back pain, acute- Primary documented in this encounter Care Teams On Site Construction Superintendent Relationship Specialty Start Date End Date Jackie Abdi MD [address] [place] [address] PCP - General Family Medicine 04/29/13 documented as of this encounter
--- OUTSIDE RECORDS SUMMARY | 2024-07-29 09:56 | XMS_ITS | Encounter Summary ---
Author Organization [facility] Address [address] [place] [address] 7 [place] [address] Care Team Providers Care Etl Bi Developer Name Role Phone Jackie Abdi MD Primary Care Provider [phone] Encounter Details Date Type Department Care Team (Late st Contact Info) Description 03/18/2022 Orders Only [facility] MED & PEDS 505 [place] [address] Marielos Hooks LPN Social History Tobacco Use [...] [facility] 505 [place] [address] Jackie Abdi MD 505 [place] [address] documented as of this encounter Visit Diagnoses Not on filedocumented in this encounter Care Teams Etl Bi Developer Relationship Specialty Start Date End Date Jackie Abdi MD [address] [place] [address] PCP - General Family Medicine 04/29/13 documented as of this encounter
--- OUTSIDE RECORDS SUMMARY | 2024-07-29 09:56 | XMS_ITS | Encounter Summary ---
Author Organization [employer] Address 75 [facility] 7t [place] [address] Care Team Providers Care Cupola Melting Supervisor Name Role Phone Jackie Abdi MD Primary Care Provider [phone] Reason for Visit * Reason Onset Date Comments Nurse Triage 08/03/2023 Encounter Details Date Type Department Care Team ([facility] st Contact Info) Description 08/03/[address] [facility] MEDICINE [address] [place] [address] Jackie Abdi MD [address] [place] [address] Nurse Triage Social History Tobacco Use Types [...] point. pt states is currently at the [facility] ER for evaluation. advised to complete the [...] Description 09/21/2024 10:45 AM EDT Office Visit [facility] MED & PEDS 505 [place] [address] Jackie Abdi MD 505 [place] [address] documented as of this encounter Visit Diagnoses Not on filedocumented in this encounter Additional Health Concerns Assessment Noted Time PHQ-9 Depression Total Score: 21 06/26/ 023 8:57 AM EDT documented as of this encounter Care Teams Cupola Melting Supervisor Relationship Specialty Start Date End Date Jackie Abdi MD [address] [place] [address] PCP - General Family Medicine 04/29/13 documented as of this encounter
--- OUTSIDE RECORDS SUMMARY | 2024-07-29 09:56 | XMS_ITS | Encounter Summary ---
Author Organization [facility] Address [address] [place] [phone] Care Team Providers Care Printed Circuit Board Panels Developer Name Role Phone Jackie Abdi MD Primary Care Provider [phone] Reason for Visit * Reason Comments GERD F/u Encounter Details Date Type Department Care Team (Latest Contact Info) Description 07/27/2024 11:00 AM EDT Office Visit Gastroenterology - [place] [address] [place] [phone] Piedad Gómez, DEMETRIA 175 [facility] 200 [place] [address] Bile-induced gastritis (Primary Dx); Bariatric surgery status; Chronic constipation Social History Tobacco Use Types Packs/Day Years [...] Orientation Straight 07/15/2024 2: 27 PM EDT documented as of this encounter Last Filed Vital Signs Vital Sign Reading Time Taken Comments Blood Pressure 115/75 07/27/2024 10:44 AM EDT Pulse 70 07/27/2024 10:44 AM EDT Temperature - - Respiratory Rate - - Oxygen Saturation 98% 07/27/2024 10:44 AM EDT Inhaled Oxygen Concentration - - Weight 66.2 kg (146 lb) 07/27/2024 10:44 AM EDT Height 149.9 cm (4' 11 ) 07/27/2024 10:44 AM EDT Body Mass Index 29.49 07/27/2024 10:44 AM EDT documented in this encounter Ordered Prescriptions Prescription Sig Dispense Quantity Refills Last Filled Start Date End Date polyethylene glycol (MIRALAX) 17 gram packetIndications:C hronic constipation Take 17 g by mouth 1 (one) time each day. 1530 g 07/27/2024 10/25/2024 documented in this encounter Progress Notes * Piedad Gómez, DEMETRIA - 07/27/2024 11:00 AM EDT CONSULT REQUEST CHIEF COMPLAINT: GERD (F/u) HPI: Sade Fraga is a 54 y.o. old female whose PMH includes eating disorder, GERD, hypercholesterolemia, nausea and vomiting, obstructive sleep apnea, obesity and gastric bypass presents to the gastroenterology department today for evaluation of GERD. Patient was following with Artis who is now retired. She is here to establish care. Her last office visit 06/03/2024. Patient reports history of gastric bypass surgery with Dr. Heaton approximately 3 years ago. Per patient, she was doing well. However, recently she has developed issues with acid reflux. She reports regurgitation of acidic saliva . She sleeps in an upright position. She follows antireflux diet. She takes pantoprazole and sucralfate. She was recently seen by Dr. Heaton on 07/14/2024. Upper GI series was ordered pending completion. She reports chronic constipation. She is not on a regular bowel regimen. Today, she denies fever or malaise, nausea vomiting, dysphagia, odynophagia, hematemesis, abdominal pain, loss of appetite, unintentional weight loss, change in bowel habits from baseline, melena or hematochezia. She denies NSAIDs, alcohol, tobacco or marijuana use No first-degree family history of colorectal cancer. Family history of stomach cancer in her father. EGD 05/09/2021: Gastric bypass with a medium sized pouch and intact staple line. Gastrojejunal anastomosis characterized by congestion and erythema. Consider bile reflux as a potential factor for vomiting. Colonoscopy completed at [facility] 08/10/2019: Normal mucosa in the whole colon and rectum. Normal mucosa in the terminal ileum. External hemorrhoids. Random colon biopsies negative. Melanosis coli. ROS: GENERAL: No malaise, significant weight loss or fever HEENT: No changes in hearing or vision, nose bleeds or swallowing problems NECK: No lumps, goiter, pain or significant neck swelling RESPIRATORY: No cough, wheezing or shortness of breath CARDIOVASCULAR: No chest pain, leg swelling or palpitations GI: See HPI MUSCULOSKELETAL: No joint pain or swelling, back pain, or muscle pain. SKIN: No lesions, rash or itching PAST MEDICAL HISTORY: Patient Active Problem List Diagnosis Bile-induced gastritis Eating disorder Gastroesophageal reflux disease with esophagitis without hemorrhage Hypercholesteremia Nausea and vomiting Obstructive sleep apnea Overweight (BMI 25.0-29.9) PAST SURGICAL HISTORY: Past Surgical History: Procedure Laterality Date BUNIONECTOMY PROCEDURE: BUNION SURGERY, SIMPLE REMOVAL SECTION PROCEDURE: HI DELIVERY ONLY CHOLECYSTECTOMY PROCEDURE: HI LAPAROSCOPY SURG CHOLECYSTECTOMY OTHER SURGICAL HISTORY PROCEDURE: HI ARTHRS AID TIBIAL FRACTURE PROXIMAL UNICONDYLAR SOCIAL HISTORY: Social History Tobacco Use Smoking status: Never Smokeless tobacco: Never Substance Use Topics Alcohol use: No Drug use: No FAMILY HISTORY: Family History Problem Relation Name Age of Onset Stomach cancer Father Hypertension Mother Diabetes Mother Other (Other: heart failure) Mother MEDICATIONS: Outpatient Medications Marked as Taking for the 07/27/24 encounter (Office Visit) with Piedad Gómez NP Medication Sig Dispense Refill cholecalciferol (VITAMIN D-3) 1,250 mcg (50,000 unit) capsule Take 1 Capsule by mouth once a week. levothyroxine (SYNTHROID, LEVOTHROID) 25 mcg tablet Take 1 tablet (25 mcg total) by mouth 1 (one) time each day. MAGNESIUM CHLORIDE ORAL Take by mouth. multivitamin (MULTI-DAY ORAL) Take by mouth. omeprazole (PriLOSEC) [address] capsule TAKE 1 CAPSULE BY MOUTH TWICE DAILY phentermine 15 mg capsule Take 1 capsule (15 mg total) by mouth 1 (one) time each day before breakfast. Max Daily Amount: 15 mg 30 each 0 simethicone 250 mg capsule Take 1 capsule by mouth 4 (four) times a day if needed (gassiness). 60 capsule 5 SIMVASTATIN ORAL Take by mouth. sucralfate (CARAFATE) 100 mg/mL suspension Take 10 mL by mouth 4 times daily. Take at least one dose at bedtime topiramate (Topamax) 50 mg tablet Take 1 tablet (50 mg total) by mouth at bedtime. 30 each 2 ALLERGIES: Allergies Allergen Reactions Sulfamethoxazole-Trimethoprim Angioedema PHYSICAL EXAM: Visit Vitals BP 115/75 Pulse 70 Ht 1.499 m (59 ) Wt 66.2 kg (146 lb) SpO2 98% BMI 29.49 kg/m?? Smoking Status Never BSA 1.61 m?? APPEARANCE: Alert and in no acute distress EYES: Conjunctiva and sclera normal. MOUTH/THROAT: No erythema, exudates or lesions noted NECK: Neck supple, no adenopathy HEART: RRR with normal S1 and S2 LUNG: clear to auscultation ABDOMEN: soft non tender, no ascites, guarding, or rebound. RECTAL: Exam deferred NEURO: Awake, alert and oriented x 3 SKIN: Skin color, texture, turgor normal. LABS: No results found for: WBC , HGB , HCT , MCV , PLT Lab Results Component Value Date ALT 19 06/17/2024 AST 14 06/17/2024 ALKPHOS 93 06/17/2024 BILITOT 0.3 06/17/2024 IMAGING: No results found for this or any previous visit from the past 365 days. IMPRESSION: 1. Bile-induced gastritis 2. Bariatric surgery status 3. Chronic constipation PLAN: Sade Fraga is a 54 y.o. old female whose PMH includes eating disorder, GERD, hypercholesterolemia, nausea and vomiting, obstructive sleep apnea, obesity and gastric bypass presents for evaluation of GERD. 1. Bile induced gastritis: Historical cholecystectomy. As seen on EGD completed in 2021. Continue taking sucralfate and pantoprazole as directed. Complete upper GI series as directed by Dr. Heaton. If significant findings requiring EGD, I will schedule. She verbalizes understanding. 2. Chronic constipation: She was encouraged to increase dietary fiber and fluid intake. May use Metamucil or Benefiber. I will prescribe MiraLAX for use daily. If not covered by insurance, she may purchase [id number]-ulhythz. Follow-up in 3 months. Patient agrees with the above plan and understands the need to follow up as indicated. Please note, this note may have been created in part by using [employer] dictation software, and therefore, it may contain typographical and/or grammatical errors inherent in a voice recognition software program No orders of the defined types were placed in this encounter. None documented in this encounter Plan of Treatment Upcoming Encounters Date Type Department Care Team (Late st Contact Info) Description 08/17/2024 1:30 PM EDT Consult Endocrinology [facility] [address] [place] [phone] Luis Enrique Orellana MD [address] [place] [address] 09/20/2024 8:00 AM EDT Appointment [facility] Xray [address] [place] [phone] 09/22/2024 1:45 PM EDT Office Visit Bariatric Surgery - [place] [address] [phone] Aleksandar Heaton MD [address] [address] 10/26/2024 10:40 AM EDT Office Visit Gastroenterology [address] [phone] Piedad Gómez NP [address] [address] documented as of this encounter Visit Diagnoses Diagnosis Bile-induced gastritis- Primary Other specified gastritis without mention of hemorrhage Bariatric surgery status Chronic constipation Unspecified constipation documented in this encounter Care Teams Printed Circuit Board Panels Developer Relationship Specialty Start Date End Date Jackie Abdi MD [address] [place] [address] PCP - General 10/20/16 documented as of this encounter
--- OUTSIDE RECORDS SUMMARY | 2024-07-29 09:56 | XMS_ITS | Encounter Summary ---
Author Organization [employer] Address 75 [facility] 7t [place] [address] Care Team Providers Care Commercial Shrimping Captain Name Role Phone Jackie Abdi MD Primary Care Provider [phone] Reason for Visit * Reason Comments Med Refill Encounter Details Date Type Department Care Team ([facility] st Contact Info) Description 10/23/2023 Refill [facility] MED & PEDS [address] [place], [place] [phone] Jackie Abdi MD 505 [place] [address] Social History Tobacco Use Types Packs/Day Years [...] [facility] [address] [place] [address] Jackie Abdi MD 505 [place] [address] documented as of this encounter Visit Diagnoses Not on filedocumented in this encounter Additional Health Concerns Assessment Noted Time PHQ-9 Depression Total Score: 21 023 8:57 AM EDT documented as of this encounter Care Teams Commercial Shrimping Captain Relationship Specialty Start Date End Date Jackie Abdi MD [address] [place] [address] PCP - General Family Medicine 04/29/13 documented as of this encounter
--- OUTSIDE RECORDS SUMMARY | 2024-07-29 09:56 | XMS_ITS | Encounter Summary ---
Author Organization [employer] Address 75 [facility] 7t [place] [address] Care Team Providers Care Rn Training Name Role Phone Jackie Abdi MD Primary Care Provider [phone] Encounter Details Date Type Department Care Team (Late st Contact Info) Description 12/08/2022 Telephone [facility] CHC MED & PEDS [address] [place], [place] [phone] Jackie Abdi MD 505 [place] [address] Social History Tobacco Use Types Packs/Day Years [...] 10:45 AM EDT Office Visit [facility] CHC MED & PEDS [address] [place] [address] Jackie Abdi MD [address] [place] [address] documented as of this encounter Visit Diagnoses Not on filedocumented in this encounter Additional Health Concerns Assessment Noted Time PHQ-9 Depression Total Score: 21 023 8:57 AM EDT documented as of this encounter Care Teams Rn Training Relationship Specialty Start Date End Date Jackie Abdi MD [address] [place] [address] PCP - General Family Medicine 04/29/13 documented as of this encounter
--- OUTSIDE RECORDS SUMMARY | 2024-07-29 09:56 | XMS_ITS | Encounter Summary ---
Author Organization [employer] Address 75 [facility] 7t [place] [address] Care Team Providers Care Lumber Handler Name Role Phone Jackie Abdi MD Primary Care Provider [phone] Reason for Visit * Reason Onset Date Comments Med Refill 02/26/2023 Encounter Details Date Type Department Care Team ([facility] st Contact Info) Description 02/26/2023 Refill [facility] MED & PEDS 505 [place] [address] Jackie Abdi MD 505 [place] [address] Social History Tobacco Use Types Packs/Day Years [...] [facility] MED & PEDS [address] [place] [address] Jackie Abdi MD 505 [place] [address] documented as of this encounter Visit Diagnoses Not on filedocumented in this encounter Additional Health Concerns Assessment Noted Time PHQ-9 Depression Total Score: 21 023 8:57 AM EDT documented as of this encounter Care Teams Lumber Handler Relationship Specialty Start Date End Date Jackie Abdi MD [address] [place] [address] PCP - General Family Medicine 04/29/13 documented as of this encounter
--- OUTSIDE RECORDS SUMMARY | 2024-07-29 09:56 | XMS_ITS | Encounter Summary ---
Author Organization [employer] Address [address] [facility] 7t [place] [address] Care Team Providers Care Data Security Administrator Name Role Phone Jackie Abdi MD Primary Care Provider [phone] Reason for Visit * Reason Comments Med Refill Encounter Details Date Type Department Care Team ([facility] st Contact Info) Description 06/08/2023 Refill [facility] MEDICINE [address] [place] [address] Jackie Abdi MD [address] [place] [address] Depressed mood Social History Tobacco Use Types [...] 10:45 AM EDT Office Visit [facility] MED & PEDS [address] [place] [address] Jackie Abdi MD 505 [place] [address] documented as of this encounter Visit Diagnoses Diagnosis Depressed mood documented in this encounter Additional Health Concerns Assessment Noted Time PHQ-9 Depression Total Score: 21 023 8:57 AM EDT documented as of this encounter Care Teams Data Security Administrator Relationship Specialty Start Date End Date Jackie Abdi MD [address] [place] [address] PCP - General Family Medicine 04/29/13 documented as of this encounter
--- OUTSIDE RECORDS SUMMARY | 2024-07-29 09:56 | XMS_ITS | Encounter Summary ---
Author Organization [employer] Address 75 [facility] 7t [place] [address] Care Team Providers Care Rug Cleaner Helper Name Role Phone Jackie Abdi MD Primary Care Provider [phone] Reason for Visit * Reason Comments Med Refill Encounter Details Date Type Department Care Team (Late Contact Info) Description 09/18/2022 Refill [facility] CHC MED & PEDS 505 [place], [place] [phone] Ronnell Sanderson MD 505 [place] [address] Mid-back pain, acute Social History Tobacco Use [...] Description 09/21/2024 10:45 AM EDT Office Visit [facility] CHC MED & PEDS [address] [place] [address] Jackie Abdi MD 505 [place] [address] documented as of this encounter Visit Diagnoses Diagnosis Mid-back pain, acute documented in this encounter Additional Health Concerns Assessment Noted Time PHQ-9 Depression Total Score: 21 023 8:57 AM EDT documented as of this encounter Care Teams Rug Cleaner Helper Relationship Specialty Start Date End Date Jackie Abdi MD [address] [place] [address] PCP - General Family Medicine 04/29/13 documented as of this encounter
--- OUTSIDE RECORDS SUMMARY | 2024-07-29 09:56 | XMS_ITS | Encounter Summary ---
Author Organization [employer] Address [address] [place] [address] [place] [address] Care Team Providers Care Electric Switch Repairer Name Role Phone Jackie Abdi MD Primary Care Provider [phone] Reason for Visit * Reason Onset Date Comments Med Refill 12/08/2022 Encounter Details Date Type Department Care Team (Late st Contact Info) Description 12/08/2022 Refill [facility] MED & PEDS 505 [place] [address] Jackie Abdi MD 505 [place] [address] Social History Tobacco Use Types Packs/Day Years [...] 10:45 AM EDT Office Visit [facility] MED & PEDS 505 [place] [address] Jackie Abdi MD [address] [place] [address] documented as of this encounter Visit Diagnoses Not on filedocumented in this encounter Additional Health Concerns Assessment Noted Time PHQ-9 Depression Total Score: 21 023 8:57 AM EDT documented as of this encounter Care Teams Electric Switch Repairer Relationship Specialty Start Date End Date Jackie Abdi MD [address] [place] [id number] PCP - General Family Medicine 04/29/13 documented as of this encounter
--- OUTSIDE RECORDS SUMMARY | 2024-07-29 09:56 | XMS_ITS | Encounter Summary ---
Author Organization [employer] Address 75 [facility] 7t [place] [address] Care Team Providers Care Highway Truck Driver Name Role Phone Jackie Abdi MD Primary Care Provider [phone] Reason for Visit * Reason Onset Date Comments Med Refill 11/13/2023 Encounter Details Date Type Department Care Team (Late st Contact Info) Description 11/13/2023 Refill [facility] MEDICINE [address] [place] [address] Jackie Abdi MD [address] [place] [address] Social History Tobacco Use Types Packs/Day Years [...] 10:45 AM EDT Office Visit [facility] MED & PEDS [address] [place] [address] Jackie Abdi MD 505 [place] [address] documented as of this encounter Visit Diagnoses Not on filedocumented in this encounter Additional Health Concerns Assessment Noted Time PHQ-9 Depression Total Score: 21 023 8:57 AM EDT documented as of this encounter Care Teams Highway Truck Driver Relationship Specialty Start Date End Date Jackie Abdi MD [address] [place] [address] PCP - General Family Medicine 04/29/13 documented as of this encounter
--- OUTSIDE RECORDS SUMMARY | 2024-07-29 09:56 | XMS_ITS | Clinical Summary ---
Author Organization [facility] Address [address] [place] [address] Care Team Providers Care Ribbon Hand Name Role Phone Jackie Abdi MD Primary Care Provider [phone] Allergies No known active allergies Medications omeprazole [...] 12/07/2020 Metabolic alkalosis 06/06/2020 12/08/19 21 Immunizations Immunization Administration Dates Next Due Hepatitis B 02/08/2021,01/09/2021 [...] 3-dose series) 1991 02/08/2021, 01/09/2021 Pneumococcal Vaccine: 50+ Ye ars (2 of 2 - PCV) 02/21/2018 02/21/2017 Colorectal Cancer Screening: Annual FOBT 2021 Colorectal Cancer Screening: Colonoscopy 2021 Colorectal Cancer Screening: Sigmoidoscopy 2021 Influenza Vaccine (Season Ended) 2024 01/20/2022, 01/09/2021, 01/09/2021, Additional history exists Pneumococcal Vaccine: Peds ( 0 to 5 Years) and At-Risk Patients (6 to 49 Years) Discontinued 02/21/2017 [place] Care Teams Ribbon Hand Relationship Specialty Start Date End Date Jackie Abdi MD [address] [place] [address] [facility] - General 04/09/20
--- OUTSIDE RECORDS SUMMARY | 2024-07-29 09:56 | XMS_ITS | Encounter Summary ---
Author Organization [employer] Address 75 [facility] 7t [place] [address] Care Team Providers Care Time Clock Mechanic Name Role Phone Jackie Abdi MD Primary Care Provider [phone] Reason for Visit * Reason Comments Med Refill Encounter Details Date Type Department Care Team ([facility] st Contact Info) Description 09/16/2023 Refill [facility] CHC MED & PEDS [address] [place], [place] [phone] Jackie Abdi MD 505 [place] [address] Acute pain of right shoulder Social History [...] [facility] MED & PEDS [address] [place] [address] Jackie Abdi MD [address] [place] [address] documented as of this encounter Visit Diagnoses Diagnosis Acute pain of right shoulder documented in this encounter Additional Health Concerns Assessment Noted Time PHQ-9 Depression Total Score: 21 023 8:57 AM EDT documented as of this encounter Care Teams Time Clock Mechanic Relationship Specialty Start Date End Date Jackie Abdi MD [address] [place] [address] PCP - General Family Medicine 04/29/13 documented as of this encounter
--- OUTSIDE RECORDS SUMMARY | 2024-07-29 09:56 | XMS_ITS | Encounter Summary ---
Author Organization [employer] Address 75 [facility] 7t [place] [address] Care Team Providers Care Rand Butter Name Role Phone Jackie Abdi MD Primary Care Provider [phone] Reason for Visit * Reason Comments Med Refill Encounter Details Date Type Department Care Team ([facility] st Contact Info) Description 09/01/2023 Refill [facility] CHC MED & PEDS [address] [place], [place] [phone] Ronnell Sanderson MD 505 [place] [address] Acute pain of right shoulder Social History [...] [facility] [address] [place] [address] Jackie Abdi MD 505 [place] [address] documented as of this encounter Visit Diagnoses Diagnosis Acute pain of right shoulder documented in this encounter Additional Health Concerns Assessment Noted Time PHQ-9 Depression Total Score: 21 023 8:57 AM EDT documented as of this encounter Care Teams Rand Butter Relationship Specialty Start Date End Date Jackie Abdi MD [address] [place] [address] PCP - General Family Medicine 04/29/13 documented as of this encounter
--- OUTSIDE RECORDS SUMMARY | 2024-07-29 09:56 | XMS_ITS | Encounter Summary ---
Author Organization [employer] Address 75 [facility] 7t [place] [address] Care Team Providers Care Kineseologist Name Role Phone Jackie Abdi MD Primary Care Provider Encounter Details Date Type Department Care Team (Late Contact Info) Description 08/28/2022 Orders Only [facility] MED & PEDS [address] [place], [place] [phone] Ronnell Sanderson MD 505 [place] [address] Social History Tobacco Use Types Packs/Day Years [...] [facility] [address] [place] [address] Jackie Abdi MD [address] [place] [address] documented as of this encounter Visit Diagnoses Not on filedocumented in this encounter Additional Health Concerns Assessment Noted Time PHQ-9 Depression Total Score: 21 023 8:57 AM EDT documented as of this encounter Care Teams Kineseologist Relationship Specialty Start Date End Date Jackie Abdi MD [address] [place] [address] PCP - General Family Medicine 04/29/13 documented as of this encounter
[2024-07-29 11:08] LABS: MANUAL DIFF FLAG NO
[2024-07-29 11:20] LABS: Basophils Percent Auto 0.5 % (0-2); Eosinophils Absolute Auto 0.2 X10*3/uL (0.0-0.4); Eosinophils Percent Auto 2.8 % (0-4); Hemoglobin 11.8 g/dl (12.0-16.0); Imm Gran Abs Auto 0.02 X10*3/uL (0.00-0.03); Imm Gran Pct Auto 0.3 % (0.0-0.4); Lymphocytes Absolute Auto 1.9 X10*3/uL (1.2-4.9); Lymphocytes Percent Auto 24.6 % (20-40); Mean Corpuscular HGB Conc 31.9 g/dl (31.0-35.0); Mean Corpuscular Hemoglobin 26.5 pg (27.0-33.0); Mean Corpuscular Volume 83.1 fL (80.0-98.0); Mean Platelet Volume 11.1 fL (9.4-12.3); Monocytes Percent Auto 13.1 % (2-11); Neutrophils Absolute Auto 4.5 x10*3/uL (2.0-8.3); Neutrophils Percent Auto 58.7 % (45-73); Platelet Count 373 X10*3/uL (160-400); Red Blood Count 4.45 X10*6/uL (4.20-5.50); Red Cell Distribution Width 16.4 % (11.0-16.0); White Blood Count 7.6 X10*3/uL (4.8-10.8)
[2024-07-29 11:54] LABS: Alanine Aminotransferase 14 U/L (0-31); Alkaline Phosphatase 71 U/L (39-117); Anion Gap 11 (12-20); Aspartate Amino Transferase 21 U/L (5-31); Bilirubin Total 0.2 mg/dL (0.0-1.0); Blood Urea Nitrogen 11 mg/dL (9-16); Calcium 8.5 mg/dL (8.4-10.2); Carbon Dioxide 27 mmol/L (22-29); Chloride 110 mmol/L (96-108); Estimated Glomerular Filt Rate > 60; Glucose Random 87 mg/dL (60-115); Potassium 3.1 mmol/L (3.3-5.1); Sodium 145 mmol/L (135-145); Total Protein 6.8 g/dL (6.5-8.0)
[2024-07-29 12:13] LABS: TSH reflex Free T4 1.36 uIU/mL (0.32-4.0)
== END 2024-07-29 09:20 | disposition home or self-care (01) ==
LOC: HO.HHCL 09:19
PROVIDERS: Internal Medicine Medical Oncology; Visit Provider Pediatrics
DX: E03.9 Hypothyroidism, unspecified (principal); D64.9 Anemia, unspecified
CPT/HCPCS: 36415; 80053; 84443; 85025

== ENCOUNTER 2024-08-15 11:34 | Outpatient (AMB) | payer MEDICAID, SELFPAY ==
--- NOTE | 2024-08-15 11:38 | A.OFFVIS_ITS ---
Vital Signs 08/15/24 11:45 Handedness Right Intake Visit Reasons: OV- Right shoulder MRI review Intake Note: Sade is a 54 year old right hand dominant female who presents today for an MRI review of right shoulder. Patient reports her symptoms hasnt changed since her MRI. Allergies sulfamethoxazole [From Bactrim] Allergy (Intermediate, Verified 08/15/24 11:42) Facial Swelling trimethoprim [From Bactrim] Allergy (Intermediate, Verified 08/15/24 11:42) Facial Swelling Medication List - Last Reconciled 08/15/24 by Alonzo Rivas PA-C albuterol sulfate 90 mcg/actuation 2 inhalations inhalation Q6H PRN azelastine 1 spray intranasal BID budesonide-formoterol 160-4.5 mcg/actuation (Symbicort) 2 puffs inhalation BID PRN celecoxib 200 mg PO BID dicyclomine 10 mg PO TID estradiol 0.01%(0.1mg/gram) pea sized amount to urethra daily x1 month then 3 times a week thereafter 30 days folic acid 1 mg PO DAILY hydrocortisone 1% (Anti-Itch (hydrocortisone)) 1 appl topical BID hydroxyzine HCl 25 mg PO DAILY nitrofurantoin macrocrystal 100 mg PO BID 14 days omeprazole 40 mg PO DAILY@0630 oxybutynin chloride 5 mg PO Q8H PRN phenazopyridine 100 mg PO Q8H 6 doses simvastatin 10 mg PO DAILY walker Folding Front wheeled walker HPI HPI OV- Right shoulder MRI review: Details: 54-year-old female returns to the office today for a follow-up right shoulder MRI. She continues to have limitations with activities such as reaching overhead or lifting objects. [facility] Medical History VSD (ventricular septal defect) Infection associated with internal right knee prosthesis Cellulitis History of pulmonary embolism History of DVT (deep vein thrombosis) Post-traumatic osteoarthritis of right knee Sleep apnea High cholesterol Asthma HTN (hypertension) Surgical History Status post total knee replacement, right History of bunionectomy of both great toes Hx of gastric bypass History of laparoscopic cholecystectomy History of H/O right knee surgery Family History Father Heart problem Mother Heart problem Social History Household Members: Spouse Housing: House Are you a primary director career to a significant other at home: No Do you presently have visiting nurse or other home services: No Alcohol intake: never Patient Tobacco Use Status: Never used Tobacco service: No Current occupational status: unemployed and disabled Current occupation: rt handed. Review of Systems Const All systems reviewed & are unremarkable except as noted in HPI and below Physical Exam Extrem Other: Right shoulder normal to inspection. Forward flexion to 90 degrees external rotation to 90 internal rotation to back pocket. Positive Jean. Positive cross-body abduction. Discomfort with rotator cuff strength testing. Results Reviewed Results Reviewed: IMPRESSION: 1. Full-thickness and partial-thickness tearing of the supraspinatus tendon. 2. Partial-thickness tearing of the infraspinatus tendon. 3. Acromioclavicular and glenohumeral joint osteoarthritis. Assessment & Plan Assessment & Plan (1) Right rotator cuff tear: Code(s): M75.101 - Unspecified rotator cuff tear or rupture of right shoulder, not specified as traumatic Category: Medical Plan: I explained the procedure in detail along with the length of recovery and rehab course. I explained the risk, benefits and alternatives. Risk including, but not limited to infection, blood clots, bleeding, ongoing pain and stiffness. I explained the use of the sling post opL ie: 6 weeks. Discussed the importance of PT post op and performing pendulum exercises immediately after surgery. I answered all their questions and with their understanding they have consented to move forward with Rotator cuff repair right shoulder with Dr Cerrato. Coding Level of Care Code Est Pt Level 4 (52102) Complex EM visit Add On G2211 Diagnoses Right rotator cuff tear M75.101
--- OUTSIDE RECORDS SUMMARY | 2024-08-15 12:23 | XMS_ITS | Encounter Summary ---
Author Organization [employer] Address 75 [facility] 7t [place] [address] Care Team Providers Care Pen Tester Name Role Phone Jackie Abdi MD Primary Care Provider [phone] Encounter Details Date Type Department Care Team ([facility] st Contact Info) Description 03/11/2023 [facility] [address] [place] [address] Jackie Abdi MD [address] [place] [address] Social History Tobacco Use Types Packs/Day Years [...] Description 09/21/2024 10:45 AM EDT Office Visit [facility] MED & PEDS 505 [place] [address] Jackie Abdi MD 505 [place] [address] documented as of this encounter Visit Diagnoses Not on filedocumented in this encounter Additional Health Concerns Assessment Noted Time PHQ-9 Depression Total Score: 21 023 8:57 AM EDT documented as of this encounter Care Teams Pen Tester Relationship Specialty Start Date End Date Jackie Abdi MD [address] [place] [address] PCP - General Family Medicine 04/29/13 documented as of this encounter
--- OUTSIDE RECORDS SUMMARY | 2024-08-15 12:23 | XMS_ITS | Encounter Summary ---
Author Organization [employer] Address 75 [facility] 7t [place] [address] Care Team Providers Care Basket Mender Name Role Phone Jackie Abdi MD Primary Care Provider [phone] Encounter Details Date Type Department Care Team (Late st Contact Info) Description 12/08/2022 Telephone [facility] CHC MED & PEDS [address] [place], [place] [phone] Jackie Abdi MD [address] [place] [address] Social History Tobacco Use Types Packs/Day Years [...] Description 09/21/2024 10:45 AM EDT Office Visit [facility] CHC MED & PEDS [address] [place] [address] Jackie Abdi MD [address] [place] [address] documented as of this encounter Visit Diagnoses Not on filedocumented in this encounter Additional Health Concerns Assessment Noted Time PHQ-9 Depression Total Score: 21 023 8:57 AM EDT documented as of this encounter Care Teams Basket Mender Relationship Specialty Start Date End Date Jackie Abdi MD [address] [place] [address] PCP - General Family Medicine 04/29/13 documented as of this encounter
--- OUTSIDE RECORDS SUMMARY | 2024-08-15 12:23 | XMS_ITS | Encounter Summary ---
Author Organization [employer] Address [address] [place] [address] 7t [place] [address] Care Team Providers Care Mechanical Laboratory Technician Name Role Phone Jackie Abdi MD Primary Care Provider [phone] Reason for Visit * Reason Onset Date Comments Med Refill 12/05/2022 Encounter Details Date Type Department Care Team (Late st Contact Info) Description 12/05/2022 Refill [facility] MED & PEDS [address] [place] [address] Abby Durna MD Social History Tobacco Use Types Packs/Day [...] Description 09/21/2024 10:45 AM EDT Office Visit [facility] MED & PEDS [address] [place] [address] Jackie Abdi MD 505 [place] [address] documented as of this encounter Visit Diagnoses Not on filedocumented in this encounter Additional Health Concerns Assessment Noted Time PHQ-9 Depression Total Score: 21 023 8:57 AM EDT documented as of this encounter Care Teams Mechanical Laboratory Technician Relationship Specialty Start Date End Date Jackie Abdi MD [address] [place] [address] PCP - General Family Medicine 04/29/13 documented as of this encounter
--- OUTSIDE RECORDS SUMMARY | 2024-08-15 12:23 | XMS_ITS | Encounter Summary ---
Author Organization [employer] Address [address] [facility] [address] 7t [place] [address] Care Team Providers Care Computer Applications Engineer Name Role Phone Jackie Abdi MD Primary Care Provider [phone] Reason for Visit * Reason Onset Date Comments Appt materials 01/21/2023 Encounter Details Date Type Department Care Team (Late st Contact Info) Description 01/21/2023 Telephone [facility] CHC ADULT DENTAL [address] [place] [address] Sharon Fernandez DMD Appt materials Social History [...] Description 09/21/2024 10:45 AM EDT Office Visit [facility] CHC MED & PEDS [address] [place] [address] Jackie Abdi MD 505 [place] [address] documented as of this encounter Visit Diagnoses Not on filedocumented in this encounter Additional Health Concerns Assessment Noted Time PHQ-9 Depression Total Score: 21 023 8:57 AM EDT documented as of this encounter Care Teams Computer Applications Engineer Relationship Specialty Start Date End Date Jackie Abdi MD [address] [place] [address] PCP - General Family Medicine 04/29/13 documented as of this encounter
--- OUTSIDE RECORDS SUMMARY | 2024-08-15 12:23 | XMS_ITS | Encounter Summary ---
Author Organization [employer] Address 75 [facility] 7t [place] [address] Care Team Providers Care Commercial Retoucher Name Role Phone Jackie Abdi MD Primary Care Provider [phone] Encounter Details Date Type Department Care Team (Late st Contact Info) Description 03/18/2022 Orders Only [facility] MED & PEDS [address] [place] [address] Marielos Hooks LPN Social History Tobacco Use [...] Description 09/21/2024 10:45 AM EDT Office Visit [facility] MED & PEDS [address] [place] [address] Jackie Abdi MD 505 [place] [address] documented as of this encounter Visit Diagnoses Not on filedocumented in this encounter Care Teams Commercial Retoucher Relationship Specialty Start Date End Date Jackie Abdi MD [address] [place] [address] PCP - General Family Medicine 04/29/13 documented as of this encounter
--- OUTSIDE RECORDS SUMMARY | 2024-08-15 12:23 | XMS_ITS | Encounter Summary ---
Author Organization [employer] Address 75 [facility] 7t [place] [address] Care Team Providers Care Shoeblack Name Role Phone Jackie Abdi MD Primary Care Provider [phone] Reason for Visit * Reason Onset Date Comments Med Refill 10/24/2022 Encounter Details Date Type Department Care Team (Late st Contact Info) Description 10/24/2022 Refill [facility] MEDICINE [address] [place] [address] Jackie Abdi MD [address] [place] [address] Social History Tobacco Use Types Packs/Day Years [...] 10:45 AM EDT Office Visit [facility] CHC MED & PEDS 505 [place], [place] [phone] Jackie Abdi MD [address] [place], [place] [phone] documented as of this encounter Visit Diagnoses Not on filedocumented in this encounter Additional Health Concerns Assessment Noted Time PHQ-9 Depression Total Score: 21 023 8:57 AM EDT documented as of this encounter Care Teams Shoeblack Relationship Specialty Start Date End Date Jackie Abdi MD [address] [place] [address] PCP - General Family Medicine 04/29/13 documented as of this encounter
--- OUTSIDE RECORDS SUMMARY | 2024-08-15 12:23 | XMS_ITS | Clinical Summary ---
Author Organization 175 [facility] Address [address] [place] [address] Phone Care Team Providers Care Diesel Retrofit Designer Name Role Phone Jackie Abdi MD Primary Care Provider [phone] Allergies Active Allergy Reactions Criticality Noted Date [...] 11:00 AM EDT Office Visit Gastroenterology - [address] [place] [address] Piedad Gómez NP Bile-induced gastritis (Primary Dx); Bariatric surgery status; Chronic constipation 07/14/2024 9:00 AM EDT Office Visit Bariatric Surgery [address] [address] Aleksandar Heaton MD Gastroesophageal reflux disease, unspecified whether esophagitis present (Primary Dx) 06/16/2024 3:45 PM EDT Office Visit Bariatric Surgery [address] [address] Aleksandar Heaton MD Class 1 obesity due to excess calories with body mass index (BMI) of 30.0 to 30.9 in adult, unspecified whether serious comorbidity present (Primary Dx) 06/03/2024 2:40 PM EST Office Visit Gastroenterology - [place] 175 [facility] 175 [facility] [address] [place] [address] Artis Leyva PA Epigastric pain (Primary Dx); Generalized abdominal pain; Gassiness; Dyspepsia; History of gastric bypass from Last 3 Months Immunizations Name Administration Dates Next Due Tdap Tetanus diptheria acell ular pertussis (Boostrix; Adacel) 7yo and older 01/19/2012 Surgical History Surgery Date Site/Laterality Comments OTHER SURGICAL HISTORY PROCEDURE: OR ARTHRS AID TIBIAL FRACTURE PROXIMAL UNICONDYLAR CHOLECYSTECTOMY PROCEDURE: OR LAPAROSCOPY SURG CHOLECYSTECTOMY BUNIONECTOMY PROCEDURE: BUNION SURGERY, SIMPLE REMOVAL SECTION PROCEDURE: OR DELIVERY ONLY Medical History Medical History Date Comments Hypercholesteremia DX:Hyperchole steremia Class 2 severe obesity due t o excess calories with serious comorbidity and body mass index (BMI) of 35.0 to 35.9 in adult ([facility] V24, [facility] V28) 05/03/2020 DX:Class 2 severe obe sity due to excess calories with serious comorbidity and body mass index (BMI) of 35.0 to 35.9 in adult ([facility]) Gastroesophageal reflux dise ase with [...] Description 08/17/2024 1:30 PM EDT Consult Endocrinology [address] [phone] Luis Enrique Orellana MD [address] [place] [address] 09/20/2024 8:00 AM EDT Appointment [facility] Xray [address] [place] [phone] 09/22/2024 1:45 PM EDT Office Visit Bariatric Surgery [facility] [address] [phone] Aleksandar Heaton MD [address] [address] 10/26/2024 10:40 AM EDT Office Visit Gastroenterology - [place] 175 [facility] 175 [facility] [address] [place] [address] Piedad Gómez, DEMETRIA 175 [facility] [place] [address] [place] [address] Health Maintenance Due Date Last Done Comments [...] LAB CHEMISTRY METHOD 06/17/2024 2:[address] [facility] Triglycerides 155(H) 0 - 150 mg/dL LAB CHEMISTRY METHOD 06/17/2024 2:[address] [facility] HDL 48 >=40 mg/dL LAB CHEMISTRY METHOD 06/17/2024 2:[address] [facility] LDL Calculated 151(H) 0 - 100 mg/dL LAB CHEMISTRY METHOD 06/17/2024 2:[address] [facility] VLDL Cholesterol Cristofer 31 mg/dL LAB CHEMISTRY METHOD 06/17/2024 2:[address] [facility] Non HDL Chol. (LDL+VLDL) 182(H) <145 mg/dL LAB CHEMISTRY METHOD 06/17/2024 2:[address] [facility] Chol/HDL Ratio 4.8(H) 0.0 - 4.4 LAB CHEMISTRY METHOD 06/17/2024 2:[address] [facility] Blood Venous blood specimen / Unknown Venipuncture / Unknown 06/17/2024 10:12 AM EDT 06/17/2024 11:07 AM EDT Aleksandar Heaton MD LAB BLOOD ORDERABLES Final R esult [facility] [address] [place] [address], [place] [phone] * (ABNORMAL) Thyroid stimulating hormone (06/17/2024 10:12 AM EDT) TSH 5.21(H) 0.40 - 4.00 mcIU/mL LAB CHEMISTRY METHOD 06/17/2024 2:[address] [facility] Blood Venous blood specimen / Unknown Venipuncture / Unknown 06/17/2024 10:12 AM EDT 06/17/2024 11:07 AM EDT Aleksandar Heaton MD LAB BLOOD ORDERABLES Final R esult [facility] [address] [place] [address], [place] [phone] * Hemoglobin A1c (06/17/2024 10:12 AM EDT) [facility] Hemoglobin A1C 5.9 <6.5 % LAB CHEMISTRY METHOD 06/17/2024 12:[address] [facility] Mean Bld Glu Estim. 123 mg/dL LAB CHEMISTRY METHOD 06/17/2024 12:[address] [facility] Blood Venous blood specimen / Unknown Venipuncture / Unknown 06/17/2024 10:12 AM EDT 06/17/2024 11:08 AM EDT us Aleksandar Heaton MD LAB BLOOD ORDERABLES Final R esult [facility] [address] [place] [address], [place] [phone] * Hepatic function panel (06/17/2024 10:12 AM EDT) [facility] Total Protein 7.1 6.0 - 8.0 g/dL LAB CHEMISTRY METHOD 06/17/2024 2:[address] [facility] Albumin 3.7 3.2 - 5.0 g/dL LAB CHEMISTRY METHOD 06/17/2024 2:[address] [facility] Total Bilirubin 0.3 0.0 - 1.4 mg/dL LAB CHEMISTRY METHOD 06/17/2024 2:[address] [facility] Bilirubin, Direct <0.1 0.0 - 0.3 mg/dL LAB CHEMISTRY METHOD 06/17/2024 2:[address] [facility] Bilirubin, Indirect LAB CHEMISTRY METHOD 06/17/2024 2:[address] [facility] Comment:Unable to calculate Indirect Bilirubin. ALT (SGPT) 19 10 - 60 unit/L LAB CHEMISTRY METHOD 06/17/2024 2:[address] [facility] AST (SGOT) 14 10 - 42 unit/L LAB CHEMISTRY METHOD 06/17/2024 2:[address] [facility] Alkaline Phosphatase 93 42 - 121 unit/L LAB CHEMISTRY METHOD 06/17/2024 2:[address] [facility] Blood Venous blood specimen / Unknown Venipuncture / Unknown 06/17/2024 10:12 AM EDT 06/17/2024 11:07 AM EDT us Aleksandar Heaton MD LAB BLOOD ORDERABLES Final R esult [facility]) [facility] [address] [place] [address], * Hepatitis C Screening (09/22/2023) [facility] C Screening abstracted Historical Provider HEALTH MAINTENANCE Final Result from Last 3 Months or Most Recently Relevant to Health Maintenance Insurance MEDICAID - [place] Care Teams Diesel Retrofit Designer Relationship Specialty Start Date End Date Jackie Abdi MD [address] [place] [address] PCP - General 10/20/16
--- OUTSIDE RECORDS SUMMARY | 2024-08-15 12:23 | XMS_ITS | Encounter Summary ---
Author Organization [employer] Address [address] [facility] 7t [place] [address] Care Team Providers Care Tarper Name Role Phone Jackie Abdi MD Primary Care Provider [phone] Encounter Details Date Type Department Care Team ([facility] Contact Info) Description 06/03/2022 Orders Only [facility] MED & PEDS [address] [place], [place] [phone] Kaylin Kaur MD [address] [place] [address] Mid-back pain, acute (Primary Dx) Social History [...] Description 09/21/2024 10:45 AM EDT Office Visit [facility] & PEDS [address] [place], [place] [phone] Jackie Abdi MD [address] [place] [phone] documented as of this encounter Visit Diagnoses Diagnosis Mid-back pain, acute- Primary documented in this encounter Care Teams Tarper Relationship Specialty Start Date End Date Jackie Abdi MD [address] [place] [id number] PCP - General Family Medicine 04/29/13 documented as of this encounter
--- OUTSIDE RECORDS SUMMARY | 2024-08-15 12:23 | XMS_ITS | Encounter Summary ---
Author Organization [employer] Address [address] [facility] 7[address] [place] [address] Care Team Providers Care Meter Repair Shop Supervisor Name Role Phone Jackie Abdi MD Primary Care Provider [phone] Reason for Visit * Reason Onset Date Comments Med Refill 02/26/2023 Encounter Details Date Type Department Care Team ([facility] st Contact Info) Description 02/26/2023 Refill [facility] [address] [place] [address] Jackie Abdi MD [address] [place] [address] Social History Tobacco Use Types Packs/Day Years [...] 10:45 AM EDT Office Visit [facility] MED [facility] PEDS [address] [place] [address] Jackie Abdi MD [address] [place] [address] documented as of this encounter Visit Diagnoses Not on filedocumented in this encounter Additional Health Concerns Assessment Noted Time PHQ-9 Depression Total Score: 21 023 8:57 AM EDT documented as of this encounter Care Teams Meter Repair Shop Supervisor Relationship Specialty Start Date End Date Jackie Abdi MD [address] [place] [address] PCP - General Family Medicine 04/29/13 documented as of this encounter
--- OUTSIDE RECORDS SUMMARY | 2024-08-15 12:23 | XMS_ITS | Encounter Summary ---
Author Organization [employer] Address [address] [facility] 7t [place] [address] Care Team Providers Care Nerve Specialist Name Role Phone Jackie Abdi MD Primary Care Provider [phone] Reason for Visit * Reason Onset Date Comments Results 04/30/2022 Encounter Details Date Type Department Care Team ([facility] Contact Info) Description 04/30/2022 Telephone [facility] MEDICINE [address] [place] [address] Jackie Abdi MD [address] [place] [phone] Results Social History Tobacco Use Types Packs/Day [...] regarding xray results Please contact pt at [phone] documented in this encounter Plan of Treatment Upcoming Encounters Date Type Department Care Team ([facility] Contact Info) Description 09/21/2024 10:45 AM EDT Office Visit [facility] MED & PEDS [address] [place] [address] Jackie Abdi MD [address] [place] [address] documented as of this encounter Visit Diagnoses Not on filedocumented in this encounter Care Teams Nerve Specialist Relationship Specialty Start Date End Date Jackie Abdi MD [address] [place] [id number] PCP - General Family Medicine 04/29/13 documented as of this encounter
--- OUTSIDE RECORDS SUMMARY | 2024-08-15 12:23 | XMS_ITS | Clinical Summary ---
Author Organization [facility] Facility Address [address] [place] [address] Care Team Providers Care Incident Manager Name Role Phone Jackie Abdi MD Primary Care Provider [phone] Allergies No known active allergies Medications omeprazole [...] Insurance Medicaid [place] Care Teams Incident Manager Relationship Specialty Start Date End Date Jackie Abdi MD [address] [place] [phone] [facility] - General 04/09/20
--- OUTSIDE RECORDS SUMMARY | 2024-08-15 12:23 | XMS_ITS | Encounter Summary ---
Author Organization [employer] Address [address] [facility] [address] [place] [address] Care Team Providers Care Crossing Gateman Name Role Phone Jackie Adbi MD Primary Care Provider [phone] Reason for Visit * Reason Comments Med Refill Encounter Details Date Type Department Care Team ([facility] st Contact Info) Description 06/08/2023 Refill [facility] MEDICINE [address] [place] [address] Jackie Abdi MD [address] [place] [address] Depressed mood Social History Tobacco Use Types [...] 10:45 AM EDT Office Visit [facility] MED & PEDS [address] [place] [address] Jackie Abdi MD [address] [place] [address] documented as of this encounter Visit Diagnoses Diagnosis Depressed mood documented in this encounter Additional Health Concerns Assessment Noted Time PHQ-9 Depression Total Score: 21 023 8:57 AM EDT documented as of this encounter Care Teams Crossing Gateman Relationship Specialty Start Date End Date Jackie Abdi MD [address] [place] [id number] PCP - General Family Medicine 04/29/13 documented as of this encounter
--- OUTSIDE RECORDS SUMMARY | 2024-08-15 12:23 | XMS_ITS | Encounter Summary ---
Author Organization [employer] Address [address] [facility] 7t [place] [address] Care Team Providers Care Geothermal Plant Manager Name Role Phone Jackie Abdi MD Primary Care Provider [phone] Reason for Visit * Reason Onset Date Comments Med Refill 12/08/2022 Encounter Details Date Type Department Care Team (Late st Contact Info) Description 12/08/2022 Refill [facility] MED [facility] PEDS [address] [place] [address] Jackie Abdi MD [address] [place] [address] Social History Tobacco Use Types Packs/Day Years [...] Description 09/21/2024 10:45 AM EDT Office Visit [facility] MED [facility] PEDS [address] [place] [address] Jackie Abdi MD [address] [place] [address] documented as of this encounter Visit Diagnoses Not on filedocumented in this encounter Additional Health Concerns Assessment Noted Time PHQ-9 Depression Total Score: 21 023 8:57 AM EDT documented as of this encounter Care Teams Geothermal Plant Manager Relationship Specialty Start Date End Date Jackie Abdi MD [address] [place] [phone] PCP - General Family Medicine 04/29/13 documented as of this encounter"
--- OUTSIDE RECORDS SUMMARY | 2024-08-15 12:24 | XMS_ITS | Clinical Summary ---
Author Organization [employer] Address [address] [place] [address] Care Team Providers Care Nurse Practitioner Name Role Phone Jackie Abdi MD Primary Care Provider [phone] Allergies Active Allergy Reactions Criticality Noted Date Comments Sulfamethoxazole-Trimethoprim Angioedema 2023 Medications Multiple Vitamin (Multi-Vitamin) tablet Take 1 tablet by mouth at bed time. Active cholecalciferol (Vitamin D-3) 1.25 MG (70026 UT) capsule Take 1 capsule by mouth. 1 Active amitriptyline (Elavil) 10 MG tablet Take 20 mg by mouth at bedtime. 3 Active triamcinolone (Kenalog) 0.5 % ointment APPLY TOPICALLY TO THE AFFECTED AREA TWICE DAILY 3 Active Enoxaparin Sodium 40 MG/0.4ML solution prefilled syringe INJECT CONTENTS OF 1 SYRINGE UNDER THE SKIN TWICE DAILY FOR 2 DAYS 3 Active SUMAtriptan (Imitrex) 50 MG tablet TAKE 1 TABLET BY MOUTH EVERY DAY FOR 9 DAYS 3 Active nortriptyline (Pamelor) 25 MG capsule Take 25 mg by mouth in the morning. 3 Active Estrogens Conjugated (Premarin) 0.625 MG/GM creamIndications:Ho t flushes, perimenopausal Insert 0.625 mg into the vagina 2 (two) times a week. 30 g 3 4 Active verapamil (Calan) 40 MG tablet TAKE 1 TABLET BY MOUTH TWICE DAILY 180 tablet 4 Active FLUoxetine (PROzac) 10 MG capsule Take 1 capsule (10 mg) by mouth Once per day. 30 capsule 11 4 Active dicyclomine (Bentyl) 10 MG capsuleIndications: History of cholecystectomy Take 1 capsule (10 mg) by mouth 3 times daily. 90 capsule 3 4 Active omeprazole (PriLOSEC) [address] capsule Take 1 capsule (40 mg) by mouth before breakfast. Do not crush or chew. 90 capsule 3 4 025 Active Symbicort 80-4.5 MCG/ACT inhaler INHALE 2 PUFFS BY MOUTH TWICE DAILY 10.2 g 11 4 Active azelastine (Astelin) 0.1 % nasal spray USE 1 SPRAY IN EACH NOSTRIL TWICE DAILY 30 mL 11 4 Active meclizine (Antivert) 25 MG tablet TAKE 1 TABLET BY MOUTH EVERY MORNING, 1 TABLET AT NOON, AND 1 TABLET EVERY NIGHT AT BEDTIME NEEDED FOR DIZZINESS 30 tablet 5 Active celecoxib (CeleBREX) 200 MG capsuleIndications: Acute pain of right shoulder TAKE 1 CAPSULE BY MOUTH TWICE DAILY 40 capsule 5 Active hydrOXYzine pamoate (Vistaril) 50 MG capsule TAKE 1 CAPSULE BY MOUTH TWICE DAILY 60 capsule 3 5 Active cyclobenzaprine (Flexeril) 10 MG tablet TAKE 1 TABLET(10 MG) BY MOUTH AT BEDTIME 30 tablet 5 Active loratadine (Claritin) 10 MG tablet Take 1 tablet (10 mg) by mouth Once per day. 30 tablet 11 5 026 Active amoxicillin (Amoxil) 500 MG capsuleIndications: Pharyngitis, unspecified etiology Take 1 tab po bid for 10 days 20 capsule 5 Active levothyroxine (Synthroid) 25 MCG tablet Take 1 tablet (25 mcg) by mouth before breakfast. 30 tablet 11 5 026 Active Active Problems Problem Noted Date Diagnosed [...] Encounters Date Type Department Care Team Description 07/29/2024 Orders Only GENERIC EXTERNAL DATA DEPARTMENT Provider, Generic External Data 07/07/2024 1:40 PM EDT Office Visit [facility] [address] [place] [address] Kaylin Kaur MD Hypothyroidism, unspecified type (Primary Dx); Heartburn; H/O gastric bypass 07/07/2024 Travel 07/07/2024 Telephone [facility] [address] [place] [phone] Jackie Abdi MD 06/30/2024 Telephone [facility] [address] [place] [address] Jackie Abdi MD 06/30/2024 Telephone [facility] [address] [place] [address] Jackie Abdi MD Medication Question; Results 06/29/2024 Telephone [facility] [address] [place] [address] Jackie Abdi MD US NECK ORDER 06/23/2024 2:00 PM EDT Office Visit [facility] [address] [place] [phone] Yudith Davila MD Pharyngitis, unspecified etiology (Primary Dx) 06/23/2024 Telephone [facility] [address] [place] [address] Jackie Abdi MD Transition Of Care (Tcm) 06/23/2024 Travel 06/23/2024 Telephone [facility] [address] [place] [phone] Jackie Abdi MD 06/21/2024 10:00 AM EDT Office Visit [facility] [address] [place] [address] Jackie Abdi MD Esophageal dysphagia (Primary Dx); Eustachian catarrh, bilateral; Hypothyroidism, unspecified type 06/21/2024 Travel 06/20/2024 Travel 06/20/2024 Telephone [facility] PEDS [address] [place] [address] Jackie Abdi MD Chart Prep 06/10/2024 Population [facility] Risk Score [facility] (C3) Department [address] [place] [phone] Provider, Population Health Generic 06/08/2024 Orders Only GENERIC EXTERNAL DATA DEPARTMENT Provider, Generic External Data 06/06/2024 Refill [facility] [address] [place], [place] [phone] Jackie Abdi MD 06/03/2024 Refill [facility] [address] [place], [place] [phone] Jackie Abdi MD 06/01/2024 Refill [facility] [address] [place], [place] [phone] Jackie Abdi MD Acute pain of right shoulder from Last 3 Months Immunizations Immunization Administration Dates Next Due Hep B, adult [facility] Info) Description 09/21/2024 10:45 AM EDT Office Visit [facility] [address] [place] [address] Jackie Abdi MD [address] [place] [address] Health Maintenance Due Date Last Done Comments [...] Procedure Name Priority Date/Time Associated Diagnosis Comments COMPREHENSIVE METABOLIC PANEL Routine 07/29/2024 9:20 AM EDT CBC WITH AUTO DIFFERENTIAL Routine 07/29/2024 9:20 AM EDT TSH W/REFLEX TO FT4 Routine 07/29/2024 9 :20 AM EDT Hypothyroidism, unspecified type US THYROID Routine 06/29/2024 9:41 AM EDT [...] Recently Relevant to Health Maintenance Results * TSH W/Reflex to FT4 (07/29/2024 9:20 AM EDT) TSH reflex Free T4 1.36 0.32 - 4.0 uIU/mL [facility] Blood Venous blood specimen / Unknown 07/29/2024 9:20 AM EDT 07/29/2024 11:05 AM EDT us Kaylin Kaur MD LAB BLOOD ORDERABLES Final Re sult [facility] [address] [place], [place] [phone] * (ABNORMAL) CBC auto differential (07/29/2024 9:20 AM EDT) White Blood Count 7.6 4.8 - 10.8 X10*3/uL [facility] Red Blood Count 4.45 4.20 - 5.50 X10*6/uL [facility] Hemoglobin 11.8(L) 12.0 - 16.0 g/dl [facility] Hematocrit 37.0 37.0 - 47.0 % [facility] Mean Corpuscular Volume 83.1 80.0 - 98.0 fL [facility] Mean Corpuscular Hemoglobin 26.5(L) 27.0 - 33.0 pg [facility] Mean Corpuscular HGB Conc 31.9 31.0 - 35.0 g/dl [facility] Red Cell Distribution Width 16.4(H) 11.0 - 16.0 % [facility] Platelet Count 373 160 - 400 X10*3/uL [facility] Mean Platelet Volume 11.1 9.4 - 12.3 fL [facility] Neutrophils Percent Auto 58.7 45 - 73 % [facility] Imm Gran Pct Auto 0.3 0.0 - 0.4 % [facility] Lymphocytes Percent Auto 24.6 20 - 40 % [facility] Monocytes Percent Auto 13.1(H) 2 - 11 % [facility] Eosinophils Percent Auto 2.8 0 - 4 % [facility] Basophils Percent Auto 0.5 0 - 2 % [facility] NRBC Pct Auto 0.0 0.0 - 0.2 /100WBC [facility] Neutrophils Absolute Auto 4.5 2.0 - 8.3 x10*3/uL [facility] Imm Gran Abs Auto 0.02 0.00 - 0.03 X10*3/uL [facility] Lymphocytes Absolute Auto 1.9 1.2 - 4.9 X10*3/uL [facility] Monocytes Absolute Auto 1.0 0.1 - 1.2 X10*3/uL [facility] Eosinophils Absolute Auto 0.2 0.0 - 0.4 X10*3/uL [facility] Basophils Absolute Auto 0.0 0.0 - 0.2 X10*3/uL [facility] NRBC Abs Auto 0.000 0.0 - 0.012 X10*3/uL [facility] 07/29/2024 9:20 AM EDT 07/29/2024 11:05 AM EDT us Generic External Data Provider LAB BLOOD ORDERAB LES Final Result [facility] [address] [place] [address] [phone] * (ABNORMAL) Comprehensive Metabolic Panel (07/29/2024 9:20 AM EDT) Sodium 145 135 - 145 mmol/L [facility] Potassium 3.1(L) 3.3 - 5.1 mmol/L [facility] Chloride 110(H) 96 - 108 mmol/L [facility] Carbon Dioxide 27 22 - 29 mmol/L [facility] Anion Gap 11(L) 12 - 20 [facility] Urea Nitrogen (BUN) 11 9 - 16 mg/dL [facility] Creatinine, Serum 0.74 0.5 - 1.4 mg/dL [facility] Estimated Glomerular Filt Rate >60 [facility] Comment:Chronic Kidney Disea se: Estimated GFR < 60 mL/min/1.39c4Novlhy Kidney Disease: Estimated GFR < 15 mL/min/1.73m2 Glucose 87 60 - 115 mg/dL [facility] Calcium 8.5 8.4 - 10.2 mg/dL [facility] Bilirubin, Total 0.2 0.0 - 1.0 mg/dL [facility] Aspartate Amino Transferase 21 5 - 31 U/L [facility] Alanine Aminotransferase 14 0 - 31 U/L [facility] Total Protein 6.8 6.5 - 8.0 g/dL [facility] Albumin Level 4.0 3.5 - 5.0 g/dL [facility] Alkaline Phosphatase 71 39 - 117 U/L [facility] 07/29/2024 9:20 AM EDT 07/29/2024 11:05 AM EDT us Generic External Data Provider LAB BLOOD ORDERAB LES Final Result Performing Organization Address City/State/[facility] Co de Phone Number [facility] [address] [place] [address] [phone] * US Thyroid (06/29/2024 9:41 AM EDT) Anatomical Region Laterality Modality Head, Neck Ultrasound 06/29/2024 9:41 AM EDT Narrative 06/29/2024 11:52 AM EDT ? [facility] ?[address] ? [place] [address] ? Ultrasound Report ? Signed ? Patient: Philly,Sade ?MR#: [id number] ?? 4 ? : 1970 ?Acct:[id number] ? Age/Sex: 54 / F ?ADM Date: 06/29/24 ? Loc: HO.HMGCX ? Attending Dr: Jackie Abdi MD ? Ordering Physician: Jackie Abdi MD ?? Date of Service: 06/29/24 ?? Procedure(s): US thyroid ?? Accession Number(s): [id number] ? cc: Jackie Abdi MD ? EXAMINATION: [...] signed by Vamsi Canales MD in OV> ?06/29/24 1148 ? DD/ 0941 ? TD/TT: 06/29/24 1010 ? Analysis Reporting Developer: ? Procedure Note Kaylyn Barnes - 06/29/2024 [facility] [address] [place] [address] [place] [address] Ultrasound Report Signed Patient: Gray Fraga#: [id number] 4 : 1970Acct:[id number] Age/Sex: 54 / FADM Date: 06/29/24 Loc: HO.HMGCX Attending Dr: Jackie Abdi MD Ordering Physician: Jcakie Abdi MD Date of Service: 06/29/24 Procedure(s): US thyroid Accession Number(s): [id number] cc: Jackie Abdi MD EXAMINATION: US THYROID [...] Vamsi Canales MD 06/29/2024 11:48 AM EDT Dictated By: Vamsi Canales MD Signed By: <Electronically signed by Vamsi Canales MD in OV> 06/29/24 1148 DD/ 0941 TD/TT: 06/29/24 1010 Analysis Reporting Developer: us Jackie Abdi MD [facility] [place] US PROCEDURES Edited Result - Final * Influenza B (ID NOW Rapid Molecular) (06/23/2024 2:00 PM EDT) Influenza B Negative Negative, Indeterminate [facility] Swab 06/23/2024 2:00 PM EDT Yudith Davila MD POINT OF CARE TEST ENTER/E DIT ORDERABLES Final Result Performing Organization Address City/[facility]/ZIP Co de Phone Number [facility] [address] [place] [phone] * Influenza A (ID NOW Rapid Molecular) (06/23/2024 2:00 PM EDT) [facility] Influenza A Negative Negative, Indeterminate [facility] Swab 06/23/2024 2:00 PM EDT Yudith Davila MD POINT OF CARE TEST ENTER/E DIT ORDERABLES Final Result Performing Organization Address [facility] Co de Phone Number [facility] [address] [place] [phone] * POCT Rapid COVID Ag (06/23/2024 2:00 PM EDT) [facility] Rapid COVID Ag Negative Swab 06/23/2024 2:00 PM EDT Yudith Davila MD POINT OF CARE TEST ENTER/E DIT ORDERABLES Final Result * POCT rapid strep A manually resulted (06/23/2024 2:00 PM EDT) [facility] Rapid Strep A Screen Negative Negative, None Detected Swab 06/23/2024 2:00 PM EDT Yudith Davila MD POINT OF CARE TEST ENTER/E DIT ORDERABLES Final Result * Culture, Throat (06/23/2024 12:00 AM EDT) Throat Structure of anterior portion of neck / Unknown 06/23/2024 06/23/2024 Comment:Throat Narrative [facility] - 06/25/2024 8:50 AM EDT Throat Culture No Group A Beta-hemolytic Streptococci isolated. Specimen Source: Throat us Yudith Davila MD LAB MICROBIOLOGY - GENERAL ORDERABLES Final Result [facility] [address] [facility] [place] [address] [phone] * MR Shoulder w/o Contrast Right (06/10/2024 3:36 PM EDT) Anatomical Region Laterality Modality Upper Extremities, Shoulder Right Magn etic Resonance 06/10/2024 3:36 PM EDT Narrative 06/10/2024 3:38 PM EDT ? [facility] ?[address] ?[place] [address] ? Magnetic Resonance Report ? Signed ? Patient: Philly,Sade ?MR#: [id number] ?? 4 ? : 1970 ?Acct:[id number] ? Age/Sex: 54 / F ?ADM Date: 06/07/24 ? Loc: HO.MRI ? Attending Dr: Alonzo Rivas PA-C ? Ordering Physician: Alonzo Rivas PA-C ?? Date of Service: 06/07/24 ?? Procedure(s): MR shoulder RT wo con ?? Accession Number(s): [id number] ? cc: Alonzo Rivas PA-C; Jackie Abdi [...] in OV> ? 06/10/24 1537 ? DD/ ? TD/TT: 06/10/246 ? Analysis Reporting Developer: ? Procedure Note Molly, Image - 06/10/2024 [place] [address] Magnetic Resonance Report Signed Patient: Gray Fraga#: [id number] 4 : 1970Acct:[id number] Age/Sex: 54 / FADM Date: 06/07/24 Loc: HO.MRI Attending Dr: Alonzo Rivas PA-C Ordering Physician: Alonzo Rivas PA-C Date of Service: 06/07/24 Procedure(s): MR shoulder RT wo con Accession Number(s): [id number] cc: Alonzo Rivas PA-C; Jackie Abdi MD [...] 06/10/24 1537 DD/ 1536 TD/TT: 06/10/24 1536 Analysis Reporting Developer: [facility] External Provider IMG MRI PROCEDURES Final Result * Culture, Urine, Routine (06/08/2024 11:28 AM EDT) Urine Urine specimen obtained by clean catch procedure / Unknown 06/08/2024 11:28 AM EDT 06/08/2024 4:23 PM EDT Comment:[facility] Narrative [facility] - 06/10/2024 7:42 AM EDT Escherichia coli Quant 10,000 to 50,000 cfu/mL Escherichia coli: Ampicillin 8(S) Escherichia coli: Cefazolin (Urine) 2(S) Escherichia coli: Cefepime <=0.12(S) Escherichia coli: Ceftriaxone <=0.25(S) Escherichia coli: Ciprofloxacin <=0.06(S) Escherichia coli: Gentamicin <=1(S) Escherichia coli: Nitrofurantoin <=16(S) Escherichia coli: Trimethoprim/Sulfamethoxazole <=20(S) Specimen Source: Urine clean catch Generic External Data Provider LAB MICROBIOLOGY - GENERAL ORDERABLES Final Result [facility] [address] [place] [phone] * BI Mammogram Screening Tomosynthesis Bilateral (06/03/2024 9:45 AM EST) Anatomical Region Laterality Modality Breast Bilateral Mammography 06/03/2024 9:45 AM EST Narrative 06/12/2024 4:59 PM EDT ? [facility] ? [address] ?[place], [place] [address] ? Mammography Report ? Signed ? Patient: Philly,Sade ?MR#: [id number] ?? 4 ? : 1970 ?Acct:[id number] ? Age/Sex: 54 / F ?ADM Date: 06/03/24 ? Loc: HO.MAMMO ? Attending Dr: Pola Maldonado CNM ? Ordering Physician: POLA MALDONADO CNM ?Results: 1 ?? Negative ? Date of Service: 06/03/24 ?Follow Up: 1 Year From Orig ?? inal Mammogram ? Procedure(s): MM tomosynthesis screening BI ?? Accession Number(s): [id number] ? cc: Jackie Abdi MD; POLA MALDONADO [...] ??Connie Damon DO ??06/12/2024 04:56 PM EDT ?? RP ? Dictated By: ?Connie Damon DO ? Signed By: ?<Electronically signed by Connie Damon, DO in OV> ? 06/12/24 1656 ? DD/ 0945 ? TD/TT: 06/03/24 1010 ? Analysis Reporting Developer: ? Procedure Note Molly, Image - 06/12/2024 [facility] [address] [place], [place] [address] Mammography Report Signed Patient: Gray Fraga#: [id number] 4 : 1970Acct:[id number] Age/Sex: 54 / FADM Date: 06/03/24 Loc: MAGOO Attending Dr: Pola Maldonado CNM Ordering Physician: POLA MALDONADOesults: 1 Negative Date of Service: 06/03/24Follow Up: 1 Year From Orig inal Mammogram Procedure(s): MM tomosynthesis screening BI Accession Number(s): [id number] cc: Jackie Abdi MD; POLA MALDONADO CNM [...] Connie Damon DO 06/12/2024 04:56 PM EDT RP Dictated By: Connie Damon DO Signed By: <Electronically signed by Connie Damon DO in OV> 06/12/24 1656 DD/ 0945 TD/TT: 06/03/24 1010 Analysis Reporting Developer: Pola MANN IMG BI PROCEDURES Final R esult * Cologuard?? colon cancer screening (02/23/2023 10:44 AM EST) Cologuard Result Negative Negative 03/01/20 3:14 PM EST [facility] (CLIA #:[id number]) Comment: NEGATIVE TEST RESULT. A negative Cologuard [...] Cancer Society Guideline for Colorectal Cancer Screening: https://www.cancer.org/cancer/loeao-vknvsb-fbprwg/ocncwzrry-lfzqmobkp-spmgyhd/ac s-rec ommendations.html.; Bean DK, Mitchell GAO, Dank WeberK, Colorectal Cancer Screening: Recommendations for Physicians and Patients from the U.S. Multi-Society Task Force on Colorectal Cancer Screening , Am J Gastroenterology 2017; 112:4893-6285. TEST DESCRIPTION: Composite algorithmic analysis of stool [...] Arevalo et al, N Engl J Med 2014;370(14):0213-3561.) Cologuard may produce a false negative or [...] can be accessed at the following location: www.HiringBoss.[employer]/results. Additional description of the Cologuard test process, warnings and precautions can be found at www.cologStonewedgerd.com. Stool specimen (specimen) 02/23/2023 10:44 AM EST 02/24/2023 1:44 PM EST Jackie Abdi MD LAB MOLECULAR DIAGNOSTICS ORDERA BLES Final Result [facility] (CLIA #:[id number]) [address] [place] [address], * Thinprep TIS PAP And HPV mRNA E6/E7, CT/NG, TRICH (04/08/2022 4:21 PM EST) Clinical Information: SCREENING, PELVIC PAIN [facility] LMP: NONE GIVEN [facility] Prev. PAP: NONE GIVEN [facility] Prev. BX: NONE GIVEN [employer] [facility] SOURCE: None given [facility] Statement Of Adequacy: [employer] Comment: Satisfactory for evaluation. Endocervical/transformation zone component present. Age and/or menstrual status not provided Interpretation/Re sult: Negative for intraepithelial lesion or malignancy. [facility] COMMENT: This Pap test has been evaluated with computer assisted technology. [facility] College Intern: Jose ruano [employer] Comment: DMM, CT(ASCP) CT screening location: [address] ??[phone] (Always Message) Que [email or web address] Comment: EXPLANATORY NOTE: The Pap is a [...] HPV nRNA E6/E7 Not Detected Not Detected [facility] Comment: Methodology: Eyelet Maker-Mediated Amplification This assay detects E6/E7 viral messenger RNA (mRNA) from 14 high-risk HPV types (16,18,31,33,35,39,45,51,52,56,58,59,66,68). Cervical sources are required for HPV testing. If a vaginal source from a patient who has had a total hysterectomy with removal of cervix was submitted, please contact the testing laboratory for alternative testing options. For additional information, please refer to http://Wiz Maps.Tradesparq/faq/ELX141n9 (This link if provided for information/ educational purposes only.) Chlamydia trachomatis RNA, TMA, Urogenital NOT DETECTED NOT DETECTED [employer] [facility] Neisseria gonorrhoeae RNA, TMA, Urogenital NOT DETECTED NOT DETECTED [employer] [facility] (Always Message) Que [email or web address] Comment: The analytical performance characteristics of this assay, when used to test SurePath(TM) specimens have been determined by [employer]. The modifications have not been cleared or approved by the FDA. This assay has been validated pursuant to the CLIA regulations and is used for clinical purposes. For additional information, please refer to https://Wiz Maps.Tradesparq/faq/RJM680 (This link is being provided for information/ educational purposes only.) Trichomonas vaginalis, QL, TMA, PAP Vial NOT DETECTED NOT DETECTED [employer] Comment: The analytical performance characteristics of this assay have been determined by [employer]. The modifications have not been cleared or approved by the FDA. This assay has been validated pursuant to the CLIA regulations and is used for clinical purposes. For additional information, please refer to http://Wiz Maps.[employer]adesparq/ faq/Trichomonastma (This link is being provided for information/ educational purposes only.) 04/08/2022 4:21 PM EST 04/09/2022 11:04 AM EST Narrative [facility] - 04/14/2022 10:42 AM EST FASTING: UNKNOWN Pola Maldonado CNM LAB PATHOLOGY ORDERABLES Final Result [facility] [address] [address] [facility] [place] [address] [employer] [facility] [address] [facility], ([address]) [place] [address] * (ABNORMAL) LIPID PANEL, STANDARD (09/10/2021 10:54 [...] ?? Artur GERMAN et al. GIANA. 2013;310(19): 4190-3459 ?? (http://education.Great Dream.[employer]/faq/TTG701) Non-HDL Cholesterol 130(H) <130 mg/dL (calc) [facility] Comment: For patients with diabetes plus 1 major ASCVD risk ?? factor, treating to a non-HDL-C goal of <100 mg/dL ?? (LDL-C of <70 mg/dL) is considered a therapeutic ?? option. Triglycerides 179(H) <150 mg/dL [facility] 09/10/2021 10:5 4 AM EDT us Jackie Abdi MD LAB BLOOD ORDERABLES Final Resul t [facility] [address] * HEPATITIS C AB W/REFL TO HCV RNA, QN, PCR (12/12/2020 10:12 AM EDT) HEPATITIS C ANTIBODY NON-REACT COLE NON-REACT COLE [facility] INDEX 0.09 <1.00 [facility] Comment: ?? HCV antibody was non-reactive. There is no laboratory ?? evidence of HCV infection. ?? In most cases, no further action is required. However, if recent HCV exposure is suspected, a test for HCV RNA (test code 05021) is suggested. ?? For additional information please refer to http://Wiz Maps.Tradesparq/faq/GGP44a9 (This link is being provided for informational/ educational purposes only.) ?? 12/12/2020 10:1 2 AM EDT us Hiren Garcia MD HISTORICAL/NON ORDERABLE LABS Fi nal Result Performing Organization Address [facility] de Phone Number [facility] [address] [place] [address], * HIV 1/2 ANTIGEN/ANTIBODY,FOURTH GENERATION W/RFL (12/12/2020 10:12 AM EDT) HIV-1/2 ANTIGEN AND ANTIBODIES, 4TH GENERATION W/ REFLEX NON-REACT COLE NON-REACT COLE [facility] Comment: HIV-1 antigen and HIV-1/HIV-2 [...] ? For additional information please refer to http://Wiz Maps.Tradesparq/faq/VBQ644 (This link is being provided for informational/ educational purposes only.) ? The performance of this assay has not been clinically validated in patients less than 2 years old. ?? 12/12/2020 10:1 2 AM EDT us Hiren Garcia MD LAB BLOOD ORDERABLES Final Resul t [facility] [address] from Last 3 Months or Most Recently Relevant to Health Maintenance Insurance C3 [facility] [place] [address] Care Teams Nurse Practitioner Relationship Specialty Start Date End Date Jackie Abdi MD [address] [place] [address] PCP - General Family Medicine 04/29/13
--- OUTSIDE RECORDS SUMMARY | 2024-08-15 12:24 | XMS_ITS | Encounter Summary ---
Author Organization [employer] Address [address] 7t [place] [address] Care Team Providers Care Welfare Supervisor Name Role Phone Jackie Abdi MD Primary Care Provider [phone] Reason for Visit * Reason Onset Date Comments Med Refill 11/13/2023 Encounter Details Date Type Department Care Team ([facility] st Contact Info) Description 11/13/2023 Refill [facility] MEDICINE 230 [place] [address] Jackie Abdi MD [address] [place] [address] Social History Tobacco Use Types Packs/Day Years [...] [facility] [address] [place] [address] Jackie Abdi MD 505 [place] [address] documented as of this encounter Visit Diagnoses Not on filedocumented in this encounter Additional Health Concerns Assessment Noted Time PHQ-9 Depression Total Score: 21 023 8:57 AM EDT documented as of this encounter Care Teams Welfare Supervisor Relationship Specialty Start Date End Date Jackie Abdi MD [address] [place] [address] PCP - General Family Medicine 04/29/13 documented as of this encounter
--- OUTSIDE RECORDS SUMMARY | 2024-08-15 12:24 | XMS_ITS | Encounter Summary ---
Author Organization [employer] Address [address] [facility] 7t [place] [address] Care Team Providers Care Milling Machine Tender Name Role Phone Jackie Abdi MD Primary Care Provider [phone] Reason for Visit * Reason Onset Date Comments call back 06/03/2022 Encounter Details Date Type Department Care Team ([facility] st Contact Info) Description 06/03/2022 Telephone [facility] 230 [place] [address] [facility] [place] [address] call back Social History Tobacco Use Types [...] a call back. Please contact pt at [phone] documented in this encounter Plan of Treatment Upcoming Encounters Date Type Department Care Team (Late st Contact Info) Description 09/21/2024 10:45 AM EDT Office Visit [facility] MED & PEDS 505 [place] [address] Jackie Abdi MD 505 [place] [address] documented as of this encounter Visit Diagnoses Not on filedocumented in this encounter Care Teams Milling Machine Tender Relationship Specialty Start Date End Date Jackie Abdi MD [address] [place] [address] PCP - General Family Medicine 04/29/13 documented as of this encounter
--- OUTSIDE RECORDS SUMMARY | 2024-08-15 12:24 | XMS_ITS | Encounter Summary ---
Author Organization [employer] Address [address] [facility] 7t [place] [address] Care Team Providers Care Plate Mill Hand Name Role Phone Jackie Abdi MD Primary Care Provider [phone] Reason for Visit * Reason Comments Med Refill Encounter Details Date Type Department Care Team ([facility] st Contact Info) Description 09/01/2023 Refill [facility] MED & PEDS 505 [place], [place] [phone] Ronnell Sanderson MD 505 [place] [address] Acute pain of right shoulder Social History [...] [facility] MED & PEDS 505 [place] [address] Jackie Abdi MD 505 [place] [address] documented as of this encounter Visit Diagnoses Diagnosis Acute pain of right shoulder documented in this encounter Additional Health Concerns Assessment Noted Time PHQ-9 Depression Total Score: 21 023 8:57 AM EDT documented as of this encounter Care Teams Plate Mill Hand Relationship Specialty Start Date End Date Jackie Abdi MD [address] [place] [address] PCP - General Family Medicine 04/29/13 documented as of this encounter
--- OUTSIDE RECORDS SUMMARY | 2024-08-15 12:24 | XMS_ITS | Encounter Summary ---
Author Organization [employer] Address [address] [facility] 7t [place] [address] Care Team Providers Care Oracle Fusion Middleware Architect Name Role Phone Jackie Abdi MD Primary Care Provider [phone] Encounter Details Date Type Department Care Team (Late st Contact Info) Description 10/01/2022 Abstract [facility] MEDICINE 230 [place] [address] Jackie Abdi MD 505 [place] [address] Social History Tobacco Use Types Packs/Day Years [...] Description 09/21/2024 10:45 AM EDT Office Visit [facility] MED & PEDS 505 [place] [address] Jackie Abdi MD 505 [place] [address] documented as of this encounter Visit Diagnoses Not on filedocumented in this encounter Additional Health Concerns Assessment Noted Time PHQ-9 Depression Total Score: 21 023 8:57 AM EDT documented as of this encounter Care Teams Oracle Fusion Middleware Architect Relationship Specialty Start Date End Date Jackie Abdi MD 230 [place] [address] PCP - General Family Medicine 04/29/13 documented as of this encounter
--- OUTSIDE RECORDS SUMMARY | 2024-08-15 12:24 | XMS_ITS | Encounter Summary ---
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/09/2023 Encounter Details Date Type Department Care Team (Late st Contact Info) Description 09/09/2023 Telephone [facility] ADULT DENTAL [address] [place] [address] Sharon Fernandez DMD airport operations duty manager Social History Tobacco Use Types Packs/Day Years [...] Patient called in stating hat she [facility] to see where she can [...] Description 09/21/2024 10:45 AM EDT Office Visit [facility] CHC MED & PEDS 505 [place] [address] Jackie Abdi MD 505 [place] [address] documented as of this encounter Visit Diagnoses Not on filedocumented in this encounter Additional Health Concerns Assessment Noted Time PHQ-9 Depression Total Score: 21 023 8:57 AM EDT documented as of this encounter Care Teams Wired Sweatband Cutter Relationship Specialty Start Date End Date Jackie Abdi MD [address] [place] [address] PCP - General Family Medicine 04/29/13 documented as of this encounter
--- OUTSIDE RECORDS SUMMARY | 2024-08-15 12:24 | XMS_ITS | Encounter Summary ---
Author Organization [employer] Address [address] 7t [place] [address] Care Team Providers Care Manager Simulation Name Role Phone Jackie Abdi MD Primary Care Provider [phone] Reason for Visit * Reason Comments Med Refill Encounter Details Date Type Department Care Team ([facility] st Contact Info) Description 10/23/2023 Refill [facility] CHC MED & PEDS 505 [place], [place] [phone] Jackie Abdi MD 505 [place] [address] Social History Tobacco Use Types Packs/Day Years [...] [facility] MED & PEDS 505 [place] [address] Jackie Abdi MD 505 [place] [address] documented as of this encounter Visit Diagnoses Not on filedocumented in this encounter Additional Health Concerns Assessment Noted Time PHQ-9 Depression Total Score: 21 023 8:57 AM EDT documented as of this encounter Care Teams Manager Simulation Relationship Specialty Start Date End Date Jackie Abdi MD [address] [place] [address] PCP - General Family Medicine 04/29/13 documented as of this encounter
--- OUTSIDE RECORDS SUMMARY | 2024-08-15 12:24 | XMS_ITS | Encounter Summary ---
Author Organization [employer] Address [address] [facility] 7t [place] [address] Care Team Providers Care Drum Attendant Name Role Phone Jackie Abdi MD Primary Care Provider [phone] Reason for Visit * Reason Comments Med Refill Encounter Details Date Type Department Care Team (Late Contact Info) Description 09/18/2022 Refill [facility] CHC MED & PEDS 505 [place], [place] [phone] Ronnell Sanderson MD 505 [place] [address] Mid-back pain, acute Social History Tobacco Use [...] 09/21/2024 10:45 AM EDT Office Visit [facility] CHC MED & PEDS 505 [place] [address] Jackie Abdi MD 505 [place] [address] documented as of this encounter Visit Diagnoses Diagnosis Mid-back pain, acute documented in this encounter Additional Health Concerns Assessment Noted Time PHQ-9 Depression Total Score: 21 023 8:57 AM EDT documented as of this encounter Care Teams Drum Attendant Relationship Specialty Start Date End Date Jackie Abdi MD [address] [place] [address] PCP - General Family Medicine 04/29/13 documented as of this encounter
--- OUTSIDE RECORDS SUMMARY | 2024-08-15 12:24 | XMS_ITS | Encounter Summary ---
Author Organization [employer] Address [address] [facility] 7t [place] [address] Care Team Providers Care Sales Engineering Manager Name Role Phone Jackie Abdi MD Primary Care Provider [phone] Reason for Visit * Reason Onset Date Comments Results 08/04/2023 Encounter Details Date Type Department Care Team ([facility] Contact Info) Description 08/04/2023 Telephone [facility] CHC MED & PEDS 505 [place], [place] [phone] Jackie Abdi MD 505 [place] [address] Results Social History Tobacco Use Types Packs/Day [...] Pt stated these were done by [facility] and that [...] culture Date when done: 08/02 Facility: [facility] Please contact pt at [phone] documented in this encounter Plan of Treatment Upcoming Encounters Date Type Department Care Team ([facility] st Contact Info) Description 09/21/2024 10:45 AM EDT Office Visit [facility] CHC MED & PEDS [address] [place] [address] Jackie Abdi MD 505 [place] [address] documented as of this encounter Visit Diagnoses Not on filedocumented in this encounter Additional Health Concerns Assessment Noted Time PHQ-9 Depression Total Score: 21 06/26/ 023 8:57 AM EDT documented as of this encounter Care Teams Sales Engineering Manager Relationship Specialty Start Date End Date Jackie Abdi MD [address] [place] [address] PCP - General Family Medicine 04/29/13 documented as of this encounter
--- OUTSIDE RECORDS SUMMARY | 2024-08-15 12:24 | XMS_ITS | Encounter Summary ---
Author Organization [employer] Address [address] [facility] [address] 7t [place] [address] Care Team Providers Care Quill Layer Name Role Phone Jackie Abdi MD Primary Care Provider [phone] Encounter Details Date Type Department Care Team (Late st Contact Info) Description 12/07/2023 Orders Only [facility] [address] [place] [address] [phone] Hiren Garcia MD 230 [place], [place] [phone] Social History Tobacco Use Types Packs/Day Years [...] t he electric, gas, oil or water [employer] threatened to shut off services in your [...] Description 09/21/2024 10:45 AM EDT Office Visit [facility] CHC MED & PEDS [address] [facility] [place] [address] Jackie Abdi MD [address] [place] [address] documented as of this encounter Procedures Procedure Name Priority Date/Time Associated Diagnosis Comments STRESS TEST WITH MYOCARDIAL PERFUSION Routine 01/01/2024 9:09 AM EDT documented in this encounter Results * Stress test with myocardial perfusion (01/01/2024 9:09 AM EDT) 01/01/2024 9:09 AM EDT [facility] IMAGING - 01/04/2024 4:19 PM EDT ? [facility] ?[address] ?[place] [address] ?Nuclear Medicine Report ? Signed ? Patient: Philly,Sade ?MR#: [id number] ?? 4 ? : 1970 ?Acct:[id number] ? Age/Sex: 53 / F ?ADM Date: 10/04/24 ? Loc: HO.CARD ? Attending Dr: Abdelrahman Ricketts MD ? Ordering Physician: Abdelrahman Ricketts MD ?? Date of Service: 01/01/24 ?? Procedure(s): NM cardiolite stress test ?? Accession Number(s): [id number] ? cc: Jackie Abdi MD; Abdelrahman Ricketts [...] DD/ 0909 ? TD/TT: 01/04/24 1200 ? General Inspector: ? Procedure Note Kaylyn Barnes - 01/04/[address] [place] [address] Nuclear Medicine Report Signed Patient: Gray Fraga#: [id number] 4 : 1970Acct:[id number] Age/Sex: 53 / FADM Date: 01/01/24 Loc: .[facility] Attending Dr: Abdelrahman Ricketts MD Ordering Physician: Abdelrahman Ricketts MD Date of Service: 01/01/24 Procedure(s): NM cardiolite stress test Accession Number(s): [id number] cc: Jackie Abdi MD; Abdelrahman Ricketts MD [...] 01/04/24 1616 DD/ 0909 TD/TT: 01/04/24 1200 General Inspector: [facility] External Provider CV STRE SS PROCEDURES Final Result [facility] IM[facility] [address] [place] [address] documented in this encounter Visit Diagnoses Not on filedocumented in this encounter Additional Health Concerns Assessment Noted Time PHQ-9 Depression Total Score: 21 06/26/ 023 8:57 AM EDT documented as of this encounter Care Teams Quill Layer Relationship Specialty Start Date End Date Jackie Abdi MD [address] [place] [address] PCP - General Family Medicine 04/29/13 documented as of this encounter
--- OUTSIDE RECORDS SUMMARY | 2024-08-15 12:24 | XMS_ITS | Encounter Summary ---
Author Organization [employer] Address [address] [facility] [address] 7t [place] [address] Care Team Providers Care 7Th Grade Teacher Name Role Phone Jackie Abdi MD Primary Care Provider [phone] Reason for Visit * Reason Onset Date Comments Referral 08/26/2023 Encounter Details Date Type Department Care Team ([facility] st Contact Info) Description 08/26/2023 Telephone [facility] MEDICINE 230 [place] [address] Jackie Abdi MD [address] [place], [place] [phone] Referral Social History Tobacco Use Types Packs/Day [...] EDT Tc from pt was advised by tree fruit and nut crops farmer office to request new referral due not being seen until 2020. Address: [address] [place] [address] [address] [facility] [address] Facility Name: [facility]. Type of Specialist: Rip And Groove Machine Operator Pt is also requesting referral for a urologist and or theatrical dresser due to some recent concerns. (Ptwas triaged) If any questions please contact pt at [phone]. documented in this encounter Plan of Treatment Upcoming Encounters Date Type Department Care Team ([facility] st Contact Info) Description 09/21/2024 10:45 AM EDT Office Visit [facility] MED & PEDS 505 [place] [address] Jackie Abdi MD 505 [place] [address] documented as of this encounter Visit Diagnoses Not on filedocumented in this encounter Additional Health Concerns Assessment Noted Time PHQ-9 Depression Total Score: 21 023 8:57 AM EDT documented as of this encounter Care Teams 7Th Grade Teacher Relationship Specialty Start Date End Date Jackie Abdi MD 230 [place] [address] PCP - General Family Medicine 04/29/13 documented as of this encounter
--- OUTSIDE RECORDS SUMMARY | 2024-08-15 12:24 | XMS_ITS | Encounter Summary ---
Author Organization [employer] Address [address] [facility] [address] 7t [place] [address] Care Team Providers Care Fruit Harvest Machine Operator Name Role Phone Jackie Abdi MD Primary Care Provider [phone] Reason for Visit * Reason Onset Date Comments Nurse Triage 08/03/2023 Encounter Details Date Type Department Care Team ([facility] st Contact Info) Description 08/03/2023 Telephone [facility] MEDICINE 230 [place] [address] Jackie Abdi MD [address] [place] [address] Nurse Triage Social History Tobacco Use Types [...] point. pt states is currently at the [facility] for evaluation. advised to complete [...] [facility] MED & PEDS 505 [place] [address] Jackie Abdi MD 505 [place] [address] documented as of this encounter Visit Diagnoses Not on filedocumented in this encounter Additional Health Concerns Assessment Noted Time PHQ-9 Depression Total Score: 21 06/26/ 023 8:57 AM EDT documented as of this encounter Care Teams Fruit Harvest Machine Operator Relationship Specialty Start Date End Date Jackie Abdi MD [address] [place] [address] PCP - General Family Medicine 04/29/13 documented as of this encounter
--- OUTSIDE RECORDS SUMMARY | 2024-08-15 12:24 | XMS_ITS | Encounter Summary ---
Author Organization [employer] Address [address] [facility] [address] 7t [place] [address] Care Team Providers Care Desizing Pad Operator Name Role Phone Jackie Abdi MD Primary Care Provider [phone] Reason for Visit * Reason Comments Med Refill Encounter Details Date Type Department Care Team ([facility] st Contact Info) Description 11/13/[address] [facility] MEDICINE 230 [place] [address] Jackie Abdi MD [address] [place], [place] [phone] Social History Tobacco Use Types Packs/Day Years [...] 10:45 AM EDT Office Visit [facility] CHC MED & PEDS 505 [place] [address] Jackie Abdi MD 505 [place] [address] documented as of this encounter Visit Diagnoses Not on filedocumented in this encounter Additional Health Concerns Assessment Noted Time PHQ-9 Depression Total Score: 21 023 8:57 AM EDT documented as of this encounter Care Teams Desizing Pad Operator Relationship Specialty Start Date End Date Jackie Abdi MD [address] [place] [address] PCP - General Family Medicine 04/29/13 documented as of this encounter
--- OUTSIDE RECORDS SUMMARY | 2024-08-15 12:24 | XMS_ITS | Encounter Summary ---
Author Organization [facility] [employer] Address [address] [facility] [address] [address] 7t [place] [address] Care Team Providers Care Security Flex Utility Officer Name Role Phone Jackie Abdi MD Primary Care Provider Reason for Visit * Reason Comments Med Refill Encounter Details Date Type Department Care Team ([facility] st Contact Info) Description 09/16/2023 Refill [facility] CHC MED & PEDS 505 [place], [place] [phone] Jackie Abdi MD 505 [place] [address] Acute pain of right shoulder Social History [...] [facility] MED & PEDS 505 [place] [address] Jackie Abdi MD 505 [place] [address] documented as of this encounter Visit Diagnoses Diagnosis Acute pain of right shoulder documented in this encounter Additional Health Concerns Assessment Noted Time PHQ-9 Depression Total Score: 21 023 8:57 AM EDT documented as of this encounter Care Teams Security Flex Utility Officer Relationship Specialty Start Date End Date Jackie Abdi MD 230 [place] [address] PCP - General Family Medicine 04/29/13 documented as of this encounter
--- OUTSIDE RECORDS SUMMARY | 2024-08-15 12:24 | XMS_ITS | Encounter Summary ---
Author Organization [employer] Address [address] [facility] 7t [place] [address] Care Team Providers Care Parole Hearing Officer Name Role Phone Jackie Abdi MD Primary Care Provider [phone] Encounter Details Date Type Department Care Team (Late Contact Info) Description 08/28/2022 Orders Only [facility] MED & PEDS 505 [place], [place] [phone] Ronnell Sanderson MD 505 [place] [address] Social History Tobacco Use Types Packs/Day Years [...] [facility] [address] [place] [address] Jackie Abdi MD [address] [place] [address] documented as of this encounter Visit Diagnoses Not on filedocumented in this encounter Additional Health Concerns Assessment Noted Time PHQ-9 Depression Total Score: 21 023 8:57 AM EDT documented as of this encounter Care Teams Parole Hearing Officer Relationship Specialty Start Date End Date Jackie Abdi MD [address] [place] [address] PCP - General Family Medicine 04/29/13 documented as of this encounter
== END 2024-08-15 12:39 | disposition home or self-care (01) ==
LOC: HO.HOS 11:34
PROVIDERS: PCP Student in an Organized Health Care Education/Training Program; Visit Provider Physician Assistant
DX: M75.101 Unspecified rotator cuff tear or rupture of right shoulder, not specified as traumatic (principal)
CPT/HCPCS: 99214

== ENCOUNTER → 2024-08-15 11:34 | Outpatient (BNVA) | payer MEDICAID, SELFPAY | PROVIDERS: PCP Student in an Organized Health Care Education/Training Program; Visit Provider Physician Assistant | DX: M75.101 Unspecified rotator cuff tear or rupture of right shoulder, not specified as traumatic (principal) | CPT/HCPCS: 99212 ==

== ENCOUNTER 2024-08-23 13:57 | Outpatient (AMB) | payer MEDICAID, SELFPAY ==
--- NOTE | 2024-08-23 14:10 | A.OFFVIS_ITS ---
Vital Signs 08/23/24 14:15 BP 110/72 Blood Pressure Location Rt brachial Position Sitting Pulse 86 Pulse Source Pulse Oximeter Pulse Oximetry (%) 97 Oxygen Delivery Method Room Air Intake Visit Reasons: Rt Shld Rotator Cuff Repair 10/12 Dr. Cerrato Intake Note: Patient presents for follow up Allergies sulfamethoxazole [From Bactrim] Allergy (Intermediate, Verified 08/23/24 14:12) Facial Swelling trimethoprim [From Bactrim] Allergy (Intermediate, Verified 08/23/24 14:12) Facial Swelling Medication List - Last Reconciled 08/23/24 by Raghu Pedersen NP albuterol sulfate 90 mcg/actuation 2 inhalations inhalation Q6H PRN azelastine 1 spray intranasal BID budesonide-formoterol 160-4.5 mcg/actuation (Symbicort) 2 puffs inhalation BID PRN celecoxib 200 mg PO BID dicyclomine 10 mg PO TID estradiol 0.01%(0.1mg/gram) pea sized amount to urethra daily x1 month then 3 times a week thereafter 30 days folic acid 1 mg PO DAILY hydrocortisone 1% (Anti-Itch (hydrocortisone)) 1 appl topical BID hydroxyzine HCl 25 mg PO DAILY levothyroxine 25 mcg PO DAILY nitrofurantoin macrocrystal 100 mg PO BID 14 days omeprazole 40 mg PO DAILY@0630 oxybutynin chloride 5 mg PO Q8H PRN phenazopyridine 100 mg PO Q8H 6 doses simvastatin 10 mg PO DAILY walker Folding Front wheeled walker HPI Comments Details: This is a 54-year-old female patient coming in for a preop cardiovascular exam. Patient was previously seen in the office or chest discomfort and shortness of breath and subsequently underwent an echo study and a myocardial perfusion study. Patient notes that she has intermittent mid chest discomfort during times when she is anxious or stressed. Patient notes that these symptoms has been unchanged since the last time she was seen in the office. Today, patient reports feeling well overall and denies any cardiac symptoms including exertional chest pain, shortness of breath, palpitations, dizziness, orthopnea, PND, leg edema, presyncope, or syncope. [facility] Medical History VSD (ventricular septal defect) Infection associated with internal right knee prosthesis Cellulitis History of pulmonary embolism History of DVT (deep vein thrombosis) Post-traumatic osteoarthritis of right knee Sleep apnea High cholesterol Asthma HTN (hypertension) Surgical History Status post total knee replacement, right History of bunionectomy of both great toes Hx of gastric bypass History of laparoscopic cholecystectomy History of H/O right knee surgery Family History Father Heart problem Mother Heart problem Social History Household Members: Spouse Housing: House Are you a primary medicare biller to a significant other at home: No Do you presently have visiting nurse or other home services: No Alcohol intake: never Patient Tobacco Use Status: Never used Tobacco Use of substances other than those prescribed or required for medical reasons: No Have you been hit, kicked, punched, or otherwise hurt by someone within the past year? If so, by whom?: No Do you feel safe in your current relationship?: Yes Do you have thoughts of harming others: None Patient : No service: No Current occupational status: unemployed and disabled Current occupation: rt handed. Physical Exam Vital Signs: Last Vital Signs Pulse 86 08/23/24 14:15 BP 110/72 08/23/24 14:15 Pulse Ox 97 08/23/24 14:15 Oxygen Delivery Method Room Air 08/23/24 14:15 Const General: cooperative, healthy appearing, comfortable and no acute distress Orientation/consciousness: patient oriented x3 HEENT Head: Yes normal to inspection Neck Neck: Yes normal visual inspection, Yes trachea midline and Yes supple Chest Chest palpation & inspection: normal inspection of the chest Resp Effort & Inspection: normal respiratory effort Auscultation: clear to auscultation bilaterally, no crackles, no rales, no rhonchi and no wheezes Cardio Jugular venous distension: no JVD Palpation: normal PMI Rate: regular rate Rhythm: regular rhythm Heart sounds: S1 normal heart sound present, S2 normal heart sound present, no click, no gallops, no murmurs and no rubs Peripheral pulses: Peripheral pulses 2+ throughout GI Inspection: Yes normal to inspection Palpation (GI): Soft to palpation Auscultation: normal bowel sounds Skin General skin exam: no rashes or lesions noted Neuro General: patient oriented x3 Extrem General: Yes normal to inspection, No no pedal edema and No calf tenderness Psych Appearance: grossly normal Mental Status: mental status grossly normal Speech and movement: Normal speech and movement present Office Procedures EKG Details: EKG today showed normal sinus rhythm, rate 68 beats per minute, nonspecific T- waves, [place], [place]. [id number], Complete Assessment & Plan Assessment & Plan (1) VSD (ventricular septal defect): Code(s): Q21.0 - Ventricular septal defect Category: Medical (2) Preop cardiovascular exam: Code(s): Z01.810 - Encounter for preprocedural cardiovascular examination Plan 01/01/2024-patient underwent a myocardial perfusion study which was normal with a good amount of workload with no EKG changes. 01/01/2024-echo study showed a normal LV systolic function with an ejection fraction between 55-60%, with evidence of a small muscular ventricular septal defect. EKG today showed normal sinus rhythm. Blood pressure within normal limits. Continue statin therapy with an LDL goal less than 100. Clinically stable. Given above findings and no ongoing anginal symptoms, patient can proceed with her right shoulder rotator cuff repair with the consideration that patient is at a low cardiac risk. Advised heart healthy diet, regular exercise, med compliance, and management of vascular risk factors. Follow up in the office on an as-needed basis. In the interim, patient will call the office with any concerns or change in symptoms. This note was generated using voice recognition software. While every effort has been made to ensure accuracy and proper hoop flaring machine operator, there may be occasional errors that could affect the content or meaning of the described symptoms. Orders: Orders AMB EKG-In Office Today Z01.810 - Encounter for preprocedural cardiovascular examination Coding Level of Care Code Est Pt Level 3 (90055) Diagnoses VSD (ventricular septal defect) Q21.0 Preop cardiovascular exam Z01.810 CPT Codes EKG - CPT: 15143-Epidrbamcyixdfsry, Complete ([id number]) Time Spent (min) 28 Comment Time spent in reviewing the chart, test results, assessment, counseling and documentation.
--- OUTSIDE RECORDS SUMMARY | 2024-08-23 14:13 | XMS_ITS | Clinical Summary ---
Author Organization [facility] Address [address] [place] [address] Phone Care Team Providers Care Director Of Group Sales Name Role Phone Jackie Abdi MD Primary Care Provider [phone] Allergies Active Allergy Reactions Criticality Noted Date Comments Sulfamethoxazole-Trimethoprim Angioedema High 2023 Medications cholecalciferol (VITAMIN D-3) 1,250 mcg (50,000 unit) capsule Take 1 Capsule by mouth once a week. 4 Active MAGNESIUM CHLORIDE ORAL Take by mouth. A ctive multivitamin (MULTI-DAY ORAL) Take by mouth. Active [...] needed (gassiness). 60 capsule 5 5 Active Additional Information Patient not taking.Reported on 08/17/2024 phentermine 15 mg capsuleIndicatio ns:Class 1 obesity due to excess calories with body mass index (BMI) of 30.0 to 30.9 in adult, unspecified whether serious comorbidity present Take 1 capsule (15 mg total) by mouth 1 (one) time each day before breakfast. Max Daily Amount: 15 mg 30 each 5 09/29/19 25 Active topiramate (Topamax) 50 mg tabletIndication s:Class 1 obesity due to excess calories [...] 26 Active polyethylene glycol (MIRALAX) 17 gram packetIndication s:Chronic constipation Take 17 g by mouth 1 (one) time each day. 1530 g 5 10/26/19 25 Active Active Problems Problem Noted Date Diagnosed Date Bile-induced gastritis 03/08/2024 Nausea and vomiting 03/08/2024 Overweight (BMI 25.0-29.9) 04/22/2021 Eating disorder 10/11/2020 Hypercholesteremia 10/11/2020 Obstructive sleep apnea 10/11/2020 Overview (03/08/2024): CPAP Gastroesophageal reflux dise ase with esophagitis without hemorrhage 05/03/2020 Encounters Date Type Department Care Team Description 08/17/2024 1:30 PM EDT Consult Endocrinology [address] [phone] Luis Enrique Orellana MD Multiple thyroid nodules (Primary Dx) 07/27/2024 11:00 AM EDT Office Visit Gastroenterology [address] [place] [address] Piedad Gómez NP Bile-induced gastritis (Primary Dx); Bariatric surgery status; Chronic constipation 07/14/2024 9:00 AM EDT Office Visit Bariatric Surgery [address] [phone] Aleksandar Heaton MD Gastroesophageal reflux disease, unspecified whether esophagitis present (Primary Dx) 06/16/2024 3:45 PM EDT Office Visit Bariatric Surgery [address] [phone] Aleksandar Heaton MD Class 1 obesity due to excess calories with body mass index (BMI) of 30.0 to 30.9 in adult, unspecified whether serious comorbidity present (Primary Dx) 06/03/2024 2:40 PM EST Office Visit Gastroenterology - [place] 175 [facility] [address] [facility] [address] [place] [address] Artis Leyva PA Epigastric pain (Primary Dx); Generalized abdominal pain; Gassiness; Dyspepsia; History of gastric bypass from Last 3 Months Immunizations Name Administration Dates Next Due Tdap Tetanus diptheria acell ular pertussis (Boostrix; Adacel) 7yo and older 01/19/2012 Surgical History Surgery Date Site/Laterality Comments OTHER SURGICAL HISTORY PROCEDURE: MT ARTHRS AID TIBIAL FRACTURE PROXIMAL UNICONDYLAR CHOLECYSTECTOMY PROCEDURE: MT LAPAROSCOPY SURG CHOLECYSTECTOMY BUNIONECTOMY PROCEDURE: BUNION SURGERY, SIMPLE REMOVAL SECTION PROCEDURE: MT DELIVERY ONLY Medical History Medical History Date Comments Hypercholesteremia DX:Hyperchole steremia Class 2 severe obesity due t o excess calories with serious comorbidity and body mass index (BMI) of 35.0 to 35.9 in adult ([facility] V24, [facility] V28) 05/03/2020 DX:Class 2 severe obe sity due to excess calories with serious comorbidity and body mass index (BMI) of 35.0 to 35.9 in adult ([facility]) Gastroesophageal reflux dise ase with esophagitis [...] Date Smoking Tobacco: Never Smokeless Tobacco: Never Tobacco Cessation:Counseling Given: Not Answered Alcohol Use Standard Drinks/Week Comments No 0 [...] Sign Reading Time Taken Comments Blood Pressure 102/60 08/17/2024 1:37 PM EDT Pulse 77 08/17/2024 1:37 PM EDT Temperature 36.2 ??C (97.1 ??F) 08/17/2024 1:37 PM ED T Respiratory Rate 14 08/17/2024 1:37 PM EDT Oxygen Saturation 99% 08/17/2024 1:37 PM EDT Inhaled Oxygen Concentration - - Weight 65.3 kg (144 lb) 08/17/2024 1:37 PM EDT Height 149.9 cm (4' 11 ) 08/17/2024 1:37 PM EDT Body Mass Index 29.08 08/17/2024 1:37 PM EDT Plan of Treatment Upcoming Encounters Date Type Department Care Team (Late st Contact Info) Description 08/24/2024 3:30 PM EDT Appointment Radiology Department [address] [phone] 09/20/2024 8:00 AM EDT Appointment [facility] Xray [address] [place] [phone] 09/22/2024 1:45 PM EDT Office Visit Bariatric Surgery - [place] [address] [phone] Aleksandar Heaton MD [address] [address] 10/26/2024 10:40 AM EDT Office Visit Gastroenterology - [place] 175 [facility] 175 [facility] [address] [place] [phone] Piedad Gómez, DEMETRIA 175 [facility] [address] [place] [phone] Health Maintenance Due Date Last Done Comments [...] LAB CHEMISTRY METHOD 06/17/2024 2:13 PM EDT [facility] Triglycerides 155(H) 0 - 150 mg/dL LAB CHEMISTRY METHOD 06/17/2024 2:13 PM T [facility] HDL 48 >=40 mg/dL LAB CHEMISTRY METHOD 06/17/2024 2:13 PM T [facility] LDL Calculated 151(H) 0 - 100 mg/dL LAB CHEMISTRY METHOD 06/17/2024 2:13 PM T [facility] VLDL Cholesterol Cristofer 31 mg/dL LAB CHEMISTRY METHOD 06/17/2024 2:13 PM EDT [facility] Non HDL Chol. (LDL+VLDL) 182(H) <145 mg/dL LAB CHEMISTRY METHOD 06/17/2024 2:13 PM EDT [facility] Chol/HDL Ratio 4.8(H) 0.0 - 4.4 LAB CHEMISTRY METHOD 06/17/2024 2:13 PM EDT [facility] Blood Venous blood specimen / Unknown Venipuncture / Unknown 06/17/2024 10:12 AM EDT 06/17/2024 11:07 AM EDT us Aleksandar Heaton MD LAB BLOOD ORDERABLES Final R esult Performing Organization Address [facility]/ZIP Co de Phone Number [facility] [address] [place] [address], [place] [phone] * (ABNORMAL) Thyroid stimulating hormone (06/17/2024 10:12 AM EDT) TSH 5.21(H) 0.40 - 4.00 mcIU/mL LAB CHEMISTRY METHOD 06/17/2024 2:45 PM EDT [facility] Blood Venous blood specimen / Unknown Venipuncture / Unknown 06/17/2024 10:12 AM EDT 06/17/2024 11:07 AM EDT us Aleksandar Heaton MD LAB BLOOD ORDERABLES Final R esult Performing Organization Address City/[facility]/ZIP Co de Phone Number [facility] [address] [place] [address], [place] [phone] * Hemoglobin A1c (06/17/2024 10:12 AM EDT) Hemoglobin A1C 5.9 <6.5 % LAB CHEMISTRY METHOD 06/17/2024 12:33 PM EDT [facility] Mean Bld Glu Estim. 123 mg/dL LAB CHEMISTRY METHOD 06/17/2024 12:33 PM EDT [facility] Blood Venous blood specimen / Unknown Venipuncture / Unknown 06/17/2024 10:12 AM EDT 06/17/2024 11:08 AM EDT us Aleksandar Heaton MD LAB BLOOD ORDERABLES Final R esult [facility] [address] [place] [address], [place] [phone] * Hepatic function panel (06/17/2024 10:12 AM EDT) Total Protein 7.1 6.0 - 8.0 g/dL LAB CHEMISTRY METHOD 06/17/2024 2:13 PM EDT [facility] Albumin 3.7 3.2 - 5.0 g/dL LAB CHEMISTRY METHOD 06/17/2024 2:13 PM EDT [facility] Total Bilirubin 0.3 0.0 - 1.4 mg/dL LAB CHEMISTRY METHOD 06/17/2024 2:13 PM [facility] Bilirubin, Direct <0.1 0.0 - 0.3 mg/dL LAB CHEMISTRY METHOD 06/17/2024 2:13 PM [facility] Bilirubin, Indirect LAB CHEMISTRY METHOD 06/17/2024 2:13 PM T [facility] Comment:Unable to calculate Indirect Bilirubin. ALT (SGPT) 19 10 - 60 unit/L LAB CHEMISTRY METHOD 06/17/2024 2:13 PM T [facility] AST (SGOT) 14 10 - 42 unit/L LAB CHEMISTRY METHOD 06/17/2024 2:13 PM [facility] Alkaline Phosphatase 93 42 - 121 unit/L LAB CHEMISTRY METHOD 06/17/2024 2:13 PM [facility] Blood Venous blood specimen / Unknown Venipuncture / Unknown 06/17/2024 10:12 AM EDT 06/17/2024 11:07 AM EDT us Aleksandar Heaton MD LAB BLOOD ORDERABLES Final R esult [facility] ([facility]) [facility] [address] [place] [address], * Hepatitis C Screening (09/22/2023) Hepatitis C Screening abstracted Historical Provider HEALTH MAINTENANCE Final Result from Last 3 Months or Most Recently Relevant to Health Maintenance Insurance MEDICAID - [place] Care Teams Director Of Group Sales Relationship Specialty Start Date End Date Jackie Abdi MD [address] [place] [id number] PCP - General 10/20/16
[2024-08-23 14:15] VITALS: BP 110/72; PULSE 86; O2SAT 97
== END 2024-08-23 14:45 | disposition home or self-care (01) ==
LOC: HO.HCS 13:58
PROVIDERS: PCP Student in an Organized Health Care Education/Training Program
DX: Q21.0 Ventricular septal defect (principal); Z01.810 Encounter for preprocedural cardiovascular examination
CPT/HCPCS: 93010; 99213

== ENCOUNTER → 2024-08-23 13:57 | Outpatient (BNVA) | payer MEDICAID, SELFPAY | PROVIDERS: PCP Student in an Organized Health Care Education/Training Program | DX: Z01.810 Encounter for preprocedural cardiovascular examination (principal); Q21.0 Ventricular septal defect | CPT/HCPCS: 93005; 99212 ==

== ENCOUNTER 2024-09-29 09:13 | Outpatient (REF) | payer MEDICAID, SELFPAY ==
--- OUTSIDE RECORDS SUMMARY | 2024-09-29 09:31 | XMS_ITS | Clinical Summary ---
Author Organization 175 [facility] Address [address] [place] [address] Phone Care Team Providers Care Information Systems Administrator Name Role Phone Jackie Abdi MD Primary Care Provider [phone] Allergies Active Allergy Reactions Criticality Noted Date [...] 21 Active SIMVASTATIN ORAL Take by mouth. Activ e sucralfate (CARAFATE) 100 mg/mL suspension Take 10 mL by mouth 4 times daily. Take at least one dose at bedtime 09/22/19 24 Active simethicone 250 mg capsule Take 1 capsule by mouth 4 (four) times a day if needed (gassiness). 60 capsule 5 06/04/19 25 Active Additional Information Patient not taking.Reported on 08/17/2024 levothyroxine (SYNTHROID, LEVOTHROID) 25 mcg tablet Take 1 tablet (25 mcg total) by mouth 1 (one) time each day. 07/01/19 25 026 Active polyethylene glycol (MIRALAX) 17 gram packetIndicatio ns:Chronic constipation Take 17 g by mouth 1 (one) time each day. 1530 g 07/28/19 25 025 Active phentermine 15 mg capsuleIndicati ons:Class 1 obesity due to excess calories with body mass index (BMI) of 30.0 to 30.9 in adult, unspecified whether serious comorbidity present Take 1 capsule (15 mg total) by mouth 1 (one) time each day before breakfast. Max Daily Amount: 15 mg 30 each 08/25/19 25 025 Active topiramate (TOPAMAX) 50 mg tabletIndicatio ns:Class 1 obesity due to excess calories with body mass index (BMI) of 30.0 to 30.9 in adult, unspecified whether serious comorbidity present TAKE 1 TABLET(50 MG) BY MOUTH AT BEDTIME 30 tablet 3 09/15/19 25 Active topiramate (Topamax) 50 mg tabletIndicatio ns:Class 1 obesity due to excess calories with body mass index (BMI) of 30.0 to 30.9 in adult, unspecified whether serious comorbidity present Take 1 tablet (50 mg total) by mouth at bedtime. 30 each 2 07/01/19 25 025 Discontinued zolpidem CR (Ambien CR) 6.25 mg CR tabletIndicatio ns:Class 1 obesity due to excess calories with body mass index (BMI) of 30.0 to 30.9 in adult, unspecified whether serious comorbidity present Take 1 tablet (6.25 mg total) by mouth at bedtime as needed for sleep. Do not crush, chew, or split. Max Daily Amount: 6.25 mg 30 tablet 08/27/19 25 025 Active Problems Problem Noted Date Diagnosed Date Bile-induced gastritis 03/08/2024 Nausea and vomiting 03/08/2024 Overweight (BMI 25.0-29.9) 04/22/2021 Eating disorder 10/11/2020 Hypercholesteremia 10/11/2020 Obstructive sleep apnea 10/11/2020 Overview (03/08/2024): CPAP Gastroesophageal reflux dise ase with esophagitis without hemorrhage 05/03/2020 Encounters Date Type Department Care Team Description 09/22/2024 1:45 PM EDT Office Visit Bariatric Surgery - [address] [address] Aleksandar Heaton MD Hyperchloremia (Primary Dx); Over weight 09/20/2024 7:44 AM EDT - 09/20/2024 11:59 PM EDT Hospital Encounter [facility] Xray [address] [place] [phone] Gastroesophageal reflux disease, unspecified whether esophagitis present Discharge Disposition: Home or Self Care 08/29/2024 Telephone Endocrinology - [address] [phone] Luis Enrique Orellana MD PROVIDER CALL BACK 08/24/2024 3:06 PM EDT - 08/24/2024 11:59 PM EDT Hospital Encounter Radiology Department - [address] [phone] Multiple thyroid nodules Discharge Disposition: Home or Self Care 08/17/2024 1:30 PM EDT Consult Endocrinology - [address] [phone] Luis Enrique Orellana MD Multiple thyroid nodules (Primary Dx) 07/27/2024 11:00 AM EDT Office Visit Gastroenterology - [place] 175 [facility] 175 [facility] [address] [place] [address] Piedad Gómez NP Bile-induced gastritis (Primary Dx); Bariatric surgery status; Chronic constipation 07/14/2024 9:00 AM EDT Office Visit Bariatric Surgery - [place] 175 [facility] [address] [place] [address] Aleksandar Heaton MD Gastroesophageal reflux disease, unspecified whether esophagitis present (Primary Dx) from Last 3 Months Immunizations Name Administration Dates Next Due Tdap Tetanus diptheria acell ular pertussis (Boostrix; Adacel) 7yo and older 01/19/2012 Surgical History Surgery Date Site/Laterality Comments OTHER SURGICAL HISTORY PROCEDURE: MS ARTHRS AID TIBIAL FRACTURE PROXIMAL UNICONDYLAR CHOLECYSTECTOMY PROCEDURE: MS LAPAROSCOPY SURG CHOLECYSTECTOMY BUNIONECTOMY PROCEDURE: BUNION SURGERY, SIMPLE REMOVAL SECTION PROCEDURE: MS DELIVERY ONLY Medical History Medical History Date Comments Hypercholesteremia DX:Hyperchole steremia Class 2 severe obesity due t o excess calories with serious comorbidity and body mass index (BMI) of 35.0 to 35.9 in adult ([facility] V24, [facility] V28) 05/03/2020 DX:Class 2 severe obe sity due to excess calories with serious comorbidity and body mass index (BMI) of 35.0 to 35.9 in adult ([facility]) Gastroesophageal reflux dise ase with [...] Sign Reading Time Taken Comments Blood Pressure 109/60 09/22/2024 1:25 PM EDT Pulse 61 09/22/2024 1:25 PM EDT Temperature 36.6 C (97.8 F) 09/22/2024 1:25 PM EDT Respiratory Rate 14 08/17/2024 1:37 PM EDT Oxygen Saturation 99% 08/17/2024 1:37 PM EDT Inhaled Oxygen Concentration - - Weight 64.4 kg (142 lb) 09/22/2024 1:25 PM EDT Height 149.9 cm (4' 11 ) 09/22/2024 1:25 PM EDT Body Mass Index 28.68 09/22/2024 1:25 PM EDT Plan of Treatment Upcoming Encounters Date Type Department Care Team (Late st Contact Info) Description 10/26/2024 10:40 AM EDT Office Visit Gastroenterology - [place] [address] [place] [phone] Piedad Gómez NP 175 [place] [address] [place] [address] 02/07/2025 1:45 PM EST Office Visit Bariatric Surgery - [place] 175 [facility] [address] [place] [phone] Aleksandar Heaton MD 175 [facility] [address] [place] [address] Health Maintenance Due Date Last Done Comments [...] Procedure Name Priority Date/Time Associated Diagnosis Comments ELECTROLYTE PANEL Routine 09/22/2024 1:4 8 PM EDT Hyperchloremia XR UGI W SINGLE CONTRAST Routine 09/20/2024 8:34 AM EDT Gastroesophageal reflux disease, unspecified whether esophagitis present US HEAD NECK SOFT TISSUE Routine 08/24/2024 3:20 PM EDT Multiple thyroid nodules LIPID PANEL WITH REFLEX TO DIRECT LDL Routine 06/17/2024 10:12 AM EDT Class 1 obesity due to excess calories with body mass index (BMI) of 30.0 to 30.9 in adult, unspecified whether serious comorbidity present HEPATITIS C SCREENING Routine 09/22/2023 from Last 3 Months or Most Recently Relevant to Health Maintenance Results * Electrolyte panel (09/22/2024 1:48 PM EDT) Sodium 139 133 - 145 mmol/L LAB CHEMISTRY METHOD 09/22/2024 6:27 PM EDT [facility] Potassium 3.6 3.5 - 5.5 mmol/L LAB CHEMISTRY METHOD 09/22/2024 6:27 PM EDT [facility] Chloride 109 96 - 110 mmol/L LAB CHEMISTRY METHOD 09/22/2024 6:27 PM EDT [facility] CO2 24 21 - 32 mmol/L LAB CHEMISTRY METHOD 09/22/2024 6:27 PM EDT [facility] Anion Gap 6 3 - 11 LAB CHEMISTRY METHOD 09/22/2024 6:27 PM EDT [facility] Blood Venous blood specimen / Unknown Venipuncture / Unknown 09/22/2024 1:48 PM EDT 09/22/2024 1:48 PM EDT us Aleksandar Heaton MD LAB BLOOD ORDERABLES Final R esult [facility] [address] [place] [address], * XR UGI w Single Contrast (09/20/2024 8:34 AM EDT) Anatomical Region Laterality Modality Body Radiographic Janice ging 09/20/2024 9:14 AM EDT Impressions 09/20/2024 9:47 AM EDT Unremarkable single contrast upper GI examination status post gastric bypass. No change since prior imaging June 05, 2022. -------- FINAL REPORT -------- Dictated By: Roseline Gordillo Dictated Date: 09/20/2024 09:14 ET Assigned Physician: Osbaldo Evans Reviewed and Electronically Signed By: Osbaldo Evans Signed Date: 09/20/2024 09:47 ET Workstation ID: [id number] Transcribed By: Self Edit Transcribed Date: 09/20/2024 09:21 ET Resident/PA/OB/GYN DOCTOR: Roseline Gordillo Narrative 09/20/2024 9:47 AM EDT FINDINGS: Single contrast UGI performed. COMPARISON: Upper GI June 05, 2022 HISTORY: Patient is a 54-year-old female with history of gastric bypass in 2020, worsening GERD. ACCOUNT RETENTION REPRESENTATIVE radiographs: [employer] Architect AP radiograph of the abdomen obtained. Bowel gas pattern is nonobstructive. Visualized lung bases appear clear. There is elevation of the right hemidiaphragm, also seen on prior imaging from June 05, 2022. Cholecystectomy clips are noted in the right upper quadrant. There is a surgical suture chain noted in the left upper quadrant, consistent with history of gastric bypass. There is a single surgical clip noted in the right mid to lower abdomen. There is mild S-shaped scoliosis of the thoracolumbar spine noted. FINDINGS: Thin barium was administered orally under fluoroscopic control. Esophagus: Normal distensibility, motility and mucosal pattern. There is no evidence of obstruction or hiatal hernia. Stomach: Gastric anatomy is consistent with history of bypass. Normal distensibility and motility. No grossly evident gastric mass or ulceration is visualized. There is a widely patent gastrojejunal anastomosis. Prompt passage of contrast from the gastric pouch into the jejunum. Visualization of proximal small bowel is within normal limits. Gastroesophageal reflux: Not visualized. DAP: 7.26 Gycm^2 Procedure Note Osbaldo Evans MD - 09/20/2024 FINDINGS: Single contrast UGI performed. COMPARISON: Upper GI June 05, 2022 HISTORY: Patient is a 54-year-old female with history of gastric bypass [id number], worsening GERD. ACCOUNT RETENTION REPRESENTATIVE radiographs: Web[employer] Architect AP radiograph of the abdomen obtained. Bowel gaspattern is nonobstructive. Visualized lung bases appear clear. There iselevation of the right hemidiaphragm, also seen on prior imaging fromJune 05, 2022. Cholecystectomy clips are noted in the right upperquadrant. There is a surgical suture chain noted in the left upperquadrant, consistent with history of gastric bypass. There is a singlesurgical clip noted in the right mid to lower abdomen. There is mildS- shaped scoliosis of the thoracolumbar spine noted. FINDINGS: Thin barium was administered orally under fluoroscopic control. Esophagus: Normal distensibility, motility and mucosal pattern. There isno evidence of obstruction or hiatal hernia. Stomach: Gastric anatomy is consistent with history of bypass. Normaldistensibility and motility. No grossly evident gastric mass or ulcerationis visualized. There is a widely patent gastrojejunal anastomosis. Promptpassage of contrast from the gastric pouch into the jejunum.Visualization of proximal small bowel is within normal limits. Gastroesophageal reflux: Not visualized. DAP: 7.26 Gycm^2 IMPRESSION: Unremarkable single contrast upper GI examination status post gastricbypass. No change since prior imaging June 05, 2022. -------- FINAL REPORT -------- Dictated By: Roseline Gordillo Dictated Date: 09/20/2024 09:14 ET Assigned Physician: Osbaldo Evans Reviewed and Electronically Signed By: Osbaldo Evans Signed Date: 09/20/2024 09:47 ET Workstation ID: [id number] Transcribed By: Self Edit Transcribed Date: 09/20/2024 09:21 ET Resident/PA/OB/GYN DOCTOR: Roseline Gordillo us Aleksandar Heaton MD IMG FLUOROSCOPY PROCEDURES F inal Result * US Head Neck Soft Tissue (08/24/2024 [...] Signed Date: 08/24/2024 17:24 ET Workstation ID: [id number] Transcribed By: Self Edit Transcribed Date: 08/24/2024 [...] 0.4 cm. The thyroid parenchyma is heterogenous. There are multiple innumerable cystic nodules throughout the [...] Signed Date: 08/24/2024 17:24 ET Workstation ID: [id number] Transcribed By: Self Edit Transcribed Date: 08/24/2024 17:19 ET us Luis Enrique Orellana MD [facility] US PROCEDURES Final Result * (ABNORMAL) Lipid panel with reflex to direct LDL (06/17/2024 10:12 AM EDT) Cholesterol 230(H) 0 - 200 mg/dL LAB CHEMISTRY METHOD 06/17/2024 2:13 PM EDT [facility] Triglycerides 155(H) 0 - 150 mg/dL LAB CHEMISTRY METHOD 06/17/2024 2:13 PM EDT [facility] HDL 48 >=40 mg/dL LAB CHEMISTRY METHOD 06/17/2024 2:13 PM EDT [facility] LDL Calculated 151(H) 0 - 100 mg/dL LAB CHEMISTRY METHOD 06/17/2024 2:13 PM EDT [facility] VLDL Cholesterol Cristofer 31 mg/dL LAB CHEMISTRY METHOD 06/17/2024 2:13 PM EDT [facility] Non HDL Chol. (LDL+VLDL) 182(H) <145 mg/dL LAB CHEMISTRY METHOD 06/17/2024 2:13 PM EDT [facility] Chol/HDL Ratio 4.8(H) 0.0 - 4.4 LAB CHEMISTRY METHOD 06/17/2024 2:13 PM EDT [facility] Blood Venous blood specimen / Unknown Venipuncture / Unknown 06/17/2024 10:12 AM EDT 06/17/2024 11:07 AM EDT Aleksandar Heaton MD LAB BLOOD ORDERABLES Final R esult [facility] [address] [place] [address], * Hepatitis C Screening (09/22/2023) Pathologist [facility] Hepatitis C Screening abstracted Historical Provider HEALTH MAINTENANCE Final Result from Last 3 Months or Most Recently Relevant to Health Maintenance Insurance MEDICAID - [place] Care Teams Information Systems Administrator Relationship Specialty Start Date End Date Jackie Abdi MD [address] [place] [address] PCP - General 10/20/16
--- OUTSIDE RECORDS SUMMARY | 2024-09-29 09:31 | XMS_ITS | Clinical Summary ---
Author Organization [facility] Facility Address [address] [place] [address] Care Team Providers Care Trim Machine Adjuster Name Role Phone Jackie Abdi MD Primary Care Provider [phone] Allergies No known active allergies Medications omeprazole [...] Insurance Medicaid [place] Care Teams Trim Machine Adjuster Relationship Specialty Start Date End Date Jackie Abdi MD [address] [place] [id number] [facility] - General 04/09/20
[2024-09-29 15:45] LABS: Alanine Aminotransferase 15 U/L (0-31); Albumin Level 4.3 g/dL (3.5-5.0); Alkaline Phosphatase 76 U/L (39-117); Anion Gap 11 (12-20); Aspartate Amino Transferase 21 U/L (5-31); Blood Urea Nitrogen 11 mg/dL (9-16); Calcium 8.7 mg/dL (8.4-10.2); Carbon Dioxide 23 mmol/L (22-29); Chloride 112 mmol/L (96-108); Cholesterol 157 mg/dL (<200); Estimated Glomerular Filt Rate > 60; HDL Cholesterol 31 mg/dL (>40); Potassium 3.3 mmol/L (3.3-5.1); Sodium 143 mmol/L (135-145); Total Protein 7.1 g/dL (6.5-8.0); Triglycerides 132 mg/dL (<150)
== END 2024-09-29 09:14 | disposition home or self-care (01) ==
LOC: HO.CHCLDS 09:13
PROVIDERS: Visit Provider Student in an Organized Health Care Education/Training Program
DX: E03.9 Hypothyroidism, unspecified (principal)
CPT/HCPCS: 36415; 80048; 80061; 80076; 84443

== ENCOUNTER 2024-10-06 14:12 | Outpatient (AMB) | payer MEDICAID, SELFPAY ==
--- OUTSIDE RECORDS SUMMARY | 2024-10-01 23:59 | XMS_ITS | Continuity of Care Document ---
Author Organization [facility] Miley alisia Address [address] [place] [address] [address] [place] [address]- Care Team Providers Care Legal Process Specialist Name Role Phone Jackie Abdi MD Primary Care Physician Encounter [facility] Date(s): 09/01/24 - 10/01/24 [facility] [address] [address] Attending Physician: AdmMatty robison Admitting Physician: AdmtrMatty Referring Physician: Admtr [id number] Encounter Type: Triage Allergies, Adverse Reactions, Alerts Substance Criticality Severity Reaction Reaction Severity Status sulfamethoxazole-trimethopri m Angioedema Active Immunizations Given and Recorded Vaccine Date Status [...] 02/21/17 Given tetanus/diphtheria/pertussis, acel(Tdap) 01/19/12 Recorded Medications Ambien CR 6.25 mg oral tablet, extended release 6.25 Unknown, oral, 0 Refill(s), Take 1 tablet (6.25 mg total) by mouth at bedtime as needed for sleep. Do not crush, chew, or split. Max Daily Amount: 6.25 mg, 0 Refills, 06/15/24 8:00:00 PM EDT, Partial fill upon patient request if the prescription is for a schedule II opioid drug. Start Date: 06/15/24 Status: Ordered Repeat number: 1 amoxicillin 500 mg oral capsule 0 Refill(s), Take 1 tab po bid for 10 days, 0 Refills, 06/22/24 8:00:00 PM EDT, Partial fill upon patient request if the prescription is for a schedule II opioid drug. Start Date: 06/22/24 Status: Ordered Repeat number: 1 amoxicillin-clavulanate 500 mg-125 mg oral tablet 42 each, 0 Refill(s), TAKE 1 TABLET BY MOUTH THREE TIMES DAILY FOR 14 DAYS, 0 Refills, 08/11/24 9:39:00 AM EDT, Partial fill upon patient request if the prescription is for a schedule II opioid drug. Start Date: 08/11/24 Status: Ordered Repeat number: 1 azelastine 137 mcg/inh (0.1%) nasal spray 30 mL, 0 Refill(s), USE 1 SPRAY IN EACH NOSTRIL TWICE DAILY, 0 Refills, 08/11/24 9:39:00 AM EDT, Partial fill upon patient request if the prescription is for a schedule II opioid drug. Start Date: 08/11/24 Status: Ordered Repeat number: 1 Carafate 1 gm/10 ml oral suspension 10 mL = 1 Gm, By Mouth, 3 times a day before meals and bedtime, 0 Refills, Maintenance, 07/24/21 8:59:00 AM EDT, Partial fill upon patient request if the prescription is for a schedule II opioid drug. Start Date: 07/24/21 Status: Ordered Repeat number: 1 celecoxib 200 mg oral capsule 40 each, 0 Refill(s), TAKE 1 CAPSULE BY MOUTH TWICE DAILY, 0 Refills, 08/11/24 9:39:00 AM EDT, Partial fill upon patient request if the prescription is for a schedule II opioid drug. Start Date: 08/11/24 Status: Ordered Repeat number: 1 cholecalciferol 50,000 intl units oral capsule 0 Refill(s), Take 1 Capsule by mouth once a week., 0 Refills, 09/25/23 8:00:00 PM EDT, Partial fill upon patient request if the prescription is for a schedule II opioid drug. Start Date: 09/25/23 Status: Ordered Repeat number: 1 Cyclobenzaprine 0 Refill(s), TAKE 1 TABLET(10 MG) BY MOUTH AT BEDTIME, 0 Refills, 02/29/24 7:00:00 PM EST, Partial fill upon patient request if the prescription is for a schedule II opioid drug. Start Date: 02/29/24 Status: Ordered Repeat number: 1 cyclobenzaprine 10 mg oral tablet 30 each, 0 Refill(s), Refills 0, 08/11/24 9:40:00 AM EDT, Partial fill upon patient request if the prescription is for a schedule II opioid drug. Start Date: 08/11/24 Status: Ordered Repeat number: 1 dicyclomine 10 mg oral capsule 90 each, 0 Refill(s), 0 Refills, 08/11/24 9:40:00 AM EDT, Partial fill upon patient request if the prescription is for a schedule II opioid drug. Start Date: 08/11/24 Status: Ordered Repeat number: 1 estradiol 0.1 mg/g vaginal cream 42 Gm, 0 Refill(s), APPLY A PEA SIZED AMOUNT TO URETHRA EVERY DAY FOR 1 MONTH THEN 3 TIMES A WEEK, 0 Refills, 08/11/24 9:40:00 AM EDT, Partial fill upon patient request if the prescription is for a schedule II opioid drug. Start Date: 08/11/24 Status: Ordered Repeat number: 1 FLUoxetine 10 mg oral capsule 30 each, 0 Refill(s), Refills 0, 08/11/24 9:40:00 AM EDT, Partial fill upon patient request if the prescription is for a schedule II opioid drug. Start Date: 08/11/24 Status: Ordered Repeat number: 1 folic acid 1 mg oral tablet 90 each, 0 Refill(s), TAKE 1 TABLET BY MOUTH DAILY, Refills 0, 08/11/24 9:40:00 AM EDT, Partial fillupon patient request if the prescription is for a schedule II opioid drug. Start Date: 08/11/24 Status: Ordered Repeat number: 1 Gas Relief Extra Strength 125 mg oral tablet, chewable 240 each, 0 Refill(s), TAKE 2 TABLET BY MOUTH FOUR TIMES DAILY NEEDED, 0 Refills, 09/01/24 3:59:00PM EDT, Partial fill upon patient request if the prescription is for a schedule II opioid drug. Start Date: 09/01/24 Status: Ordered Repeat number: 1 hydrOXYzine hydrochloride 25 mg oral tablet 2 tablet = 50 mg, By Mouth, Daily in AM, TAKE ONE TABLET DAILY Start Date: 07/22/21 Status: Ordered Repeat number: 1 hydrOXYzine pamoate 50 mg oral capsule 60 each, 0 Refill(s), TAKE 1 CAPSULE BY MOUTH TWICE DAILY, 0 Refills, 08/11/24 9:40:00 AM EDT, Partial fill upon patient request if the prescription is for a schedule II opioid drug. Start Date: 08/11/24 Status: Ordered Repeat number: 1 levothyroxine 0.025 mg oral tablet 1 tablet = 25 mcg, By Mouth, Daily in AM, # 30 tablet, 0 Refills, Maintenance, 07/25/24 12:58:00 PM EDT, Tablet, Partial fill upon patient request if the prescription is for a schedule II opioid drug. Start Date: 07/25/24 Status: Ordered Quantity: 30.0 Unit: tablet Repeat number: 1 loratadine 10 mg oral tablet 10 Unknown, Oral, 11 Refill(s), Take 1 tablet (10 mg) by mouth Once per day., Refills 0, 06/20/24 8:00:00 PM EDT, Partial fill upon patient request if the prescription is for a schedule II opioid drug. Start Date: 06/20/24 Status: Ordered Repeat number: 1 Magnesium Chloride With Calcium 112 mg-64 mg oral delayed release tablet 0 Refill(s), Take by mouth., 0 Refills, 08/11/24 9:41:00 AM EDT, Partial fill upon patient request if the prescription is for a schedule II opioid drug. Start Date: 08/11/24 Status: Ordered Repeat number: 1 meclizine 25 mg oral tablet 30 each, 0 Refill(s), 0 Refills, 08/11/24 9:42:00 AM EDT, Partial fill upon patient request if the prescription is for a schedule II opioid drug. Start Date: 08/11/24 Status: Ordered Repeat number: 1 metroNIDAZOLE 500 mg oral tablet 14 each, 0 Refill(s), 0 Refills, 08/11/24 9:42:00 AM EDT, Partial fill upon patient request if the prescription is for a schedule II opioid drug. Start Date: 08/11/24 Status: Ordered Repeat number: 1 Multivitamin 0 Refill(s), Take by mouth., 0 Refills, 08/11/24 9:42:00 AM EDT, Partial fill upon patient request if the prescription is for a schedule II opioid drug. Start Date: 08/11/24 Status: Ordered Repeat number: 1 nitrofurantoin macrocrystals-monohydrate 100 mg oral capsule 28 each, 0 Refill(s), TAKE 1 CAPSULE BY MOUTH TWICE DAILY WITH FOOD FOR 14 DAYS, 0 Refills, 09/01/24 3:59:00 PM EDT, Partial fill upon patient request if the prescription is for a schedule II opioid drug. Start Date: 09/01/24 Status: Ordered Repeat number: 1 omeprazole 40 mg oral enteric coated capsule 1 capsule = 40 mg, By Mouth, Daily at bedtime, # 90 capsule, 0 Refills, Maintenance, 07/25/24 12:57:00 PM EDT, EC Capsule, Partial fill upon patient request if the prescription is for a schedule II opioid drug. Start Date: 07/25/24 Status: Ordered Quantity: 90.0 Unit: capsule Repeat number: 1 oxybutynin 5 mg oral tablet 20 each, 0 Refill(s), TAKE 1 TABLET BY MOUTH EVERY 8 HOURS NEEDED FOR BLADDER SPASMS, 0 Refills,09/01/24 3:59:00 PM EDT, Partial fill upon patient request if the prescription is for a schedule II opioid drug. Start Date: 09/01/24 Status: Ordered Repeat number: 1 oxyCODONE 5 mg oral tablet 8 each, 0 Refill(s), TAKE 1 TABLET BY MOUTH EVERY 6 HOURS FOR 2 DAYS NEEDED FOR PAIN PARTIALFILL. OK TO SUBSTITUTE WITH CAPSULES IF TABLETS NOT AVAILABLE, Refills 0, 09/01/24 3:59:00 PM EDT, Partialfill upon patient request if the prescription is for a schedule II opioid drug. Start Date: 09/01/24 Status: Ordered Repeat number: 1 pantoprazole 40 mg oral delayed release tablet 90 each, 0 Refill(s), TAKE 1 TABLET BY MOUTH EVERY DAY ON AN EMPTY STOMACH THEN WAIT 30 MINUTES ANDEAT SOMETHING TO ACTIVE THE MEDICATION, 0 Refills, 08/11/24 9:42:00 AM EDT Start Date: 08/11/24 Status: Ordered Repeat number: 1 phenazopyridine 100 mg oral tablet 6 each, 0 Refill(s), TAKE 1 TABLET BY MOUTH EVERY 8 HOURS, Refills 0, 09/01/24 3:59:00 PM EDT, Partial fill upon patient request if the prescription is for a schedule II opioid drug. Start Date: 09/01/24 Status: Ordered Repeat number: 1 phentermine 15 mg oral capsule 15 Unknown, oral, 0 Refill(s), Take 1 capsule (15 mg total) by mouth 1 (one) time each day before breakfast. Max Daily Amount: 15 mg, 0 Refills, 06/15/24 8:00:00 PM EDT, Partial fill upon patient request if the prescription is for a schedule II opioid drug. Start Date: 06/15/24 Status: Ordered Repeat number: 1 Polyethylene Glycol 3350 17 Unknown, oral, 0 Refill(s), Take 17 g by mouth 1 (one) time each day., 0 Refills, 07/26/24 8:00:00 PM EDT, Partial fill upon patient request if the prescription is for a schedule II opioid drug. Start Date: 07/26/24 Status: Ordered Repeat number: 1 polyethylene glycol 3350 oral powder for reconstitution 84 each, 0 Refill(s), 0 Refills, 09/01/24 3:59:00 PM EDT, Partial fill upon patient request if the prescription is for a schedule II opioid drug. Start Date: 09/01/24 Status: Ordered Repeat number: 1 ProAir HFA 90 mcg/inh inhalation aerosol with adapter 2, puffs, Inhalation, Every 6 hours, PRN, Maintenance, 09/29/18 3:31:00 PM EDT, Aerosol Start Date: 09/29/18 Status: Ordered Repeat number: 1 simethicone 125 mg oral tablet, chewable 240 each, 0 Refill(s), TAKE 2 TABLET BY MOUTH FOUR TIMES DAILY NEEDED, 0 Refills, 09/01/24 3:59:00PM EDT, Partial fill upon patient request if the prescription is for a schedule II opioid drug. Start Date: 09/01/24 Status: Ordered Repeat number: 1 simethicone 250 mg oral capsule 1 Unknown, oral, 5 Refill(s), Take 1 capsule by mouth 4 (four) times a day if needed (gassiness)., 0 Refills, 06/02/24 7:00:00 PM EST, Partial fill upon patient request if the prescription is for a schedule II opioid drug. Start Date: 06/02/24 Status: Ordered Repeat number: 1 Simvastatin 0 Refill(s), Take by mouth., 0 Refills, 08/11/24 9:41:00 AM EDT, Partial fill upon patient request if the prescription is for a schedule II opioid drug. Start Date: 08/11/24 Status: Ordered Repeat number: 1 solifenacin 5 mg oral tablet 60 each, 0 Refill(s), TAKE 1 TABLET BY MOUTH TWICE DAILY, 0 Refills, 08/11/24 9:41:00 AM EDT, Partial fill upon patient request if the prescription is for a schedule II opioid drug. Start Date: 08/11/24 Status: Ordered Repeat number: 1 sucralfate 1 gm/10 ml oral suspension 786 mL, 0 Refill(s), TAKE 10 ML BY MOUTH FOUR TIMES DAILY. TAKE AT LEAST 1 DOSE EVERY NIGHT AT BEDTIME, 0 Refills, 08/11/24 9:41:00 AM EDT, Partial fill upon patient request if the prescription is fora schedule II opioid drug. Start Date: 08/11/24 Status: Ordered Repeat number: 1 Symbicort 80mcg/4.5mcg Inhaler 2, puffs, Inhalation, 2 times a day, PRN, # 6.9 Gm, Refills 0, Maintenance, 05/02/20 11:28:00 AM EST,Aerosol Start Date: 05/02/20 Status: Ordered Quantity: 6.9 Unit: g Repeat number: 1 Synthroid 0.025 mg oral tablet 25 Unknown, Oral, 11 Refill(s), Take 1 tablet (25 mcg) by mouth before breakfast., 0 Refills, 06/20/24 8:00:00 PM EDT, Partial fill upon patient request if the prescription is for a schedule II opioiddrug. Start Date: 06/20/24 Status: Ordered Repeat number: 1 terconazole topical 0.4% cream 45 Gm, 0 Refill(s), INSERT 1 APPLICATORFUL VAGINALLY AT BEDTIME FOR 7 DAYS, 0 Refills, 08/11/24 9:41:00 AM EDT, Partial fill upon patient request if the prescription is for a schedule II opioid drug. Start Date: 08/11/24 Status: Ordered Repeat number: 1 Topamax 50 mg oral tablet 50 Unknown, oral, 2 Refill(s), Take 1 tablet (50 mg total) by mouth at bedtime., 0 Refills, 258:00:00 PM EDT, Partial fill upon patient request if the prescription is for a schedule II opioid drug. Start Date: 06/15/24 Status: Ordered Repeat number: 1 topiramate 50 mg oral tablet 30 each, 0 Refill(s), 0 Refills, 09/01/24 3:59:00 PM EDT, Partial fill upon patient request if the prescription is for a schedule II opioid drug. Start Date: 09/01/24 Status: Ordered Repeat number: 1 wheat dextrin 0 Refill(s), Wheat Dextrin (Benefiber) Powder Take 4 g by mouth daily., 0 Refills, 10/07/20 8:00:00 PM EDT, Partial fill upon patient request if the prescription is for a schedule II opioid drug. Start Date: 10/07/20 Status: Ordered Repeat number: 1 zolpidem 6.25 mg oral tablet, extended release 30 each, 0 Refill(s), 0 Refills, 09/01/24 3:59:00 PM EDT, Partial fill upon patient request if the prescription is for a schedule II opioid drug. Start Date: 09/01/24 Status: Ordered Repeat number: 1 Problem List Condition Confirmation [...] Care Team Personnel Name: Craig Boo Position: [facility] Outreach Member Role: Lifetime Consulting Physician Name: Rachelle Madrigal RN Position: [facility] RN Member Role: Primary Care Nurse Name: Charlene Hyman RN Position: [facility] RN Member Role: Primary Care Nurse Name: Samantha Santizo NP Position: [facility] PCO Associate Professional Member Role: Primary Care Nurse Address: [address] [place] [address]- [place] Telecom: Name: Kathleen Otero RN Position: [facility] SN RN Member Role: Primary Care Nurse Name: Erum Wolf RN Position: [facility] RN Member Role: Primary Care Nurse Name: Guadalupe Reyes RN Position: [facility] RN Member Role: Primary Care Nurse Name: Mindy Arriaga RN Position: [facility] AMB Nurse Member Role: Primary Care Nurse Name: Pooja Sheth RN Position: [facility] Office Staff Member Role: Primary Care Nurse Name: Nadia Lubin NP Position: [facility] Associate Professional Member Role: Primary Care Nurse Name: Collins Ackerman MD Position: [facility] Renal MD Member Role: Lifetime Consulting Physician Address: [address] [place] [address] [address] [place] [address]- [place] Telecom: Name: Monica Valentin RN Position: [facility] [employer] Embossing Press Operator Member Role: Primary Care Nurse Name: Rai Meyer RN Position: [facility] RN Member Role: Primary Care Nurse Name: Zakiya Connors RN Position: [facility] Onco RN Member Role: Primary Care Nurse Name: Jordy Holguin RN Position: [facility] Outreach Member Role: Primary Care Nurse Name: Guadalupe Pringle Position: [facility] Outreach Member Role: Lifetime Consulting Physician Name: Ketan RNLaura Position: [facility] ED RN W/OE and Tasks Member Role: Primary Care Nurse Name: Leidy Nichols RN Position: [facility] RN Member Role: Primary Care Nurse Name: Jacob Borden RN Position: [facility] RN Member Role: Primary Care Nurse Name: Samaria Dumont RN Position: [facility] ED RN W/OE and Tasks Member Role: Primary Care Nurse Name: Tanya Hidalgo RN Position: [facility] AMB Nurse Member Role: Primary Care Nurse Name: Jackie Abdi MD Position: [facility] Outreach Member Role: PCP Address: [address] [place] [address]- [place] Telecom: Name: Dina Heath RN Position: [facility] RN Member Role: Primary Care Nurse Name: Radha Bergeron RN Position: [facility] [employer] Press Operator Member Role: Primary Care Nurse Name: Socorro Arana RN Position: [facility] RN Member Role: Primary Care Nurse Name: Brenda Enrique Position: [facility] RN Member Role: Primary Care Nurse Name: Aby Howard RN Position: [facility] AMB Nurse Member Role: Primary Care Nurse Name: Macarena Black RN Position: [facility] ED RN W/OE and Tasks Member Role: Primary Care Nurse Name: Blane Cameron MD Position: [facility] Renal MD Member Role: Lifetime Consulting Physician Address: [address] [facility] [address] [facility] [place] [address]- [place] Telecom: Name: Nighat Ryder RN Position: [facility] SN RN Member Role: Primary Care Nurse Name: Shakira Crawford RN Position: [facility] RN Member Role: Primary Care Nurse Name: Priscilla Sargent RN Position: [facility] [employer] Press Operator Member Role: Primary Care Nurse Name: Samaria Nichols RN Position: [facility] RN Member Role: Primary Care Nurse Care Team Related Persons Name: ASH ABBASI Insurance Providers Guarantor name: RACHEL [employer] [facility] Information #: 1 Payer: [employer]ER [employer] Payer Identifier: NA Member Number: [id number] Group Number: [id number] Subscriber Identifier: [id number] Relationship to Subscriber: self Coverage Type: MEDICAID Coverage Verification Date: NA Telecom: NA Address: NA
--- NOTE | 2024-10-06 14:22 | A.OFFVIS_ITS ---
Intake Visit Reasons: Pre-Rt RTC Repair 10/12/24 Intake Note: Sade is a 54 year old right hand dominant female who presents today for a pre op appointment s/p right shoulder rotator cuff repair 10/12/24 NE. Patient was given pain management form, pendulum exercises and RTC repair protocols. Patient was fitted for her ultra sling w/ pillow. Allergies sulfamethoxazole (From Bactrim) Allergy (Intermediate, Verified 08/23/24 14:12) Facial Swelling trimethoprim (From Bactrim) Allergy (Intermediate, Verified 08/23/24 14:12) Facial Swelling HPI HPI Pre-Rt RTC Repair 10/12/24: Details: Ms. Fraga is a 54-year-old female who presents to the office today for her history and physical examination pending right shoulder rotator cuff repair scheduled for 10/12/[address] Cerrato. Of note, the patient did have a prior surgery for total knee arthroplasty in which she sustained a DVT/PE postoperatively. [facility] Medical History VSD (ventricular septal defect) Infection associated with internal right knee prosthesis Cellulitis History of pulmonary embolism History of DVT (deep vein thrombosis) Post-traumatic osteoarthritis of right knee Sleep apnea High cholesterol Asthma HTN (hypertension) Surgical History Status post total knee replacement, right History of bunionectomy of both great toes Hx of gastric bypass History of laparoscopic cholecystectomy History of H/O right knee surgery Family History Father Heart problem Mother Heart problem Social History Household Members: Spouse Housing: House Are you a primary animal care worker to a significant other at home: No Do you presently have visiting nurse or other home services: No Alcohol intake: never Patient Tobacco Use Status: Never used Tobacco service: No Current occupational status: unemployed and disabled Current occupation: rt handed. Review of Systems Const All systems reviewed & are unremarkable except as noted in HPI and below Physical Exam Extrem Other: Right shoulder normal to inspection. Forward flexion to 90 degrees external rotation to 90 internal rotation to back pocket. Positive Jean. Positive cross-body abduction. Discomfort with rotator cuff strength testing. Assessment & Plan Assessment & Plan (1) Right rotator cuff tear: Code(s): M75.101 - Unspecified rotator cuff tear or rupture of right shoulder, not specified as traumatic Category: Medical Plan Ms. Fraga is a 54-year-old female who presents to the office today for her history and physical examination pending right shoulder rotator cuff repair scheduled for 10/12/[address] Cerrato. Of note, the patient did have a prior surgery for total knee arthroplasty in which she sustained a DVT/PE postoperatively. Patient was fit for the ultra sling off the shelf while in the office today. This will be brought with her on the day of surgery. Post operative medications were sent to the pharmacy, while in the office today. The patient was instructed that he/she should obtain the prescription prior to surgery but should not consume until after the procedure; as these should only be taken for postoperative pain management. Should the patient take these medications before surgery, a refill will not be sent to the pharmacy until their scheduled refill date. oxycodone-acetaminophen 5-325 mg (Percocet) PO Q4-6H PRN, quantity 42 tabs for 7 days and morphine ER 15 mg (MS Contin) PO Q12H PRN, quantity 6 tabs for 3 days I discussed in detail the procedure and what to expect pre and post operatively. We discussed the risks, benefits and alternatives to the surgery as well as the rehabilitation course. The risks; which include, but are not limited to infection, bleeding, nerve injury, ongoing pain, swelling, and stiffness, perioperative risk of injury to bones and soft tissues, and blood clots. I?ve answered all questions and with their understanding they have consented to move forward with right shoulder rotator cuff repair with Dr. Cerrato. Orders: Orders PT Evaluation and Treatment Today Z98.890 - Other specified postprocedural states Coding Level of Care Code Global (85716) Diagnoses Right rotator cuff tear M75.101
--- OUTSIDE RECORDS SUMMARY | 2024-10-06 14:24 | XMS_ITS | Clinical Summary ---
Author Organization [facility] Address [address] [place] [address] Care Team Providers Care Medical Researcher Name Role Phone Jackie Abdi MD Primary Care Provider [phone] Allergies No known active allergies Medications omeprazole [...] Cancer Screening: Sigmoidoscopy 2021 Influenza Vaccine (#1) 2024 2, 01/09/2021, 01/09/2021, Additional history exists Pneumococcal Vaccine: Peds ( 0 to 5 Years) and At-Risk Patients (6 to 49 Years) Discontinued 02/21/2017 Insurance Medicaid [place] Care Teams Medical Researcher Relationship Specialty Start Date End Date Jackie Abdi MD [address] [place] [id number] [facility] - General 04/09/20
--- OUTSIDE RECORDS SUMMARY | 2024-10-06 14:24 | XMS_ITS | Encounter Summary ---
Author Organization [employer] Address [address] [facility] [address] [place] [address] Care Team Providers Care Construction Site Crossing Guard Name Role Phone Jackie Abdi MD Primary Care Provider Encounter Details Date Type Department Care Team (Late st Contact Info) Description 09/20/2024 Orders Only [facility] [address] [place] [address] Provider, MD Sagar Social History Tobacco Use Types Packs/Day Years [...] as of this encounter Plan of Treatment Not on file documented as of this encounter Procedures Procedure Name Priority Date/Time Associated Diagnosis Comments XR UGI SINGLE CONTRAST W KUB Routine 09/20/2024 11:05 AM EDT documented in this encounter Results * XR UGI single contrast w KUB (09/20/2024 11:05 AM EDT) Anatomical Region Laterality Modality Abdomen Radiographic Janice ging us Historical Provider MD CORREIA XR PROCEDURES Final R esult documented in this encounter Visit Diagnoses Not on filedocumented in this encounter Additional Health Concerns Assessment Noted Time PHQ-9 Depression Total Score: 14 025 11:23 AM EST documented as of this encounter Care Teams Construction Site Crossing Guard Relationship Specialty Start Date End Date Jackie Abdi MD [address] [place] [id number] PCP - General Family Medicine 04/29/13 documented as of this encounter
--- OUTSIDE RECORDS SUMMARY | 2024-10-06 14:24 | XMS_ITS | Clinical Summary ---
Author Organization 175 [facility] Address [address] [place] [address] Phone Care Team Providers Care College Advisor Name Role Phone Jackie Abdi MD Primary Care Provider [phone] Allergies Active Allergy Reactions Criticality Noted Date [...] 1 (one) time each day. 07/01/19 25 2025 Active polyethylene glycol (MIRALAX) 17 gram packetIndicatio ns:Chronic constipation Take 17 g by mouth 1 (one) time each day. 1530 g 07/28/19 25 2024 Active phentermine 15 mg capsuleIndicati ons:Class 1 obesity due to excess calories with body mass index (BMI) of 30.0 to 30.9 in adult, unspecified whether serious comorbidity present Take 1 capsule (15 mg total) by mouth 1 (one) time each day before breakfast. Max Daily Amount: 15 mg 30 each 10/06/19 25 2024 Active topiramate (TOPAMAX) 50 mg tabletIndicatio ns:Class 1 obesity due to excess calories with body mass index (BMI) of 30.0 to 30.9 in adult, unspecified whether serious comorbidity present Take 1 tablet (50 mg total) by mouth at bedtime. 30 tablet 3 10/06/19 25 Active topiramate (Topamax) 50 mg tabletIndicatio ns:Class 1 obesity due to excess calories with body mass index (BMI) of 30.0 to 30.9 in adult, unspecified whether serious comorbidity present Take 1 tablet (50 mg total) by mouth at bedtime. 30 each 2 07/01/19 25 2024 Discontinued phentermine 15 mg capsuleIndicati ons:Class 1 obesity due to excess calories with body mass index (BMI) of 30.0 to 30.9 in adult, unspecified whether serious comorbidity present Take 1 capsule (15 mg total) by mouth 1 (one) time each day before breakfast. Max Daily Amount: 15 mg 30 each 08/25/19 25 2024 Discontinued(R eorder) zolpidem CR (Ambien CR) 6.25 mg CR tabletIndicatio ns:Class 1 obesity due to excess calories with body mass index (BMI) of 30.0 to 30.9 in adult, unspecified whether serious comorbidity present Take 1 tablet (6.25 mg total) by mouth at bedtime as needed for sleep. Do not crush, chew, or split. Max Daily Amount: 6.25 mg 30 tablet 08/27/19 25 2024 topiramate (TOPAMAX) 50 mg tabletIndicatio ns:Class 1 obesity due to excess calories with body mass index (BMI) of 30.0 to 30.9 in adult, unspecified whether serious comorbidity present TAKE 1 TABLET(50 MG) BY MOUTH AT BEDTIME 30 tablet 3 09/15/19 25 2024 Discontinued(R eorder) Active Problems Problem Noted Date Diagnosed Date Bile-induced gastritis 03/08/2024 Nausea and vomiting 03/08/2024 Overweight (BMI 25.0-29.9) 04/22/2021 Eating disorder 10/11/2020 Hypercholesteremia 10/11/2020 Obstructive sleep apnea 10/11/2020 Overview (03/08/2024): CPAP Gastroesophageal reflux dise ase with esophagitis without hemorrhage 05/03/2020 Encounters Date Type Department Care Team Description 09/22/2024 1:45 PM EDT Office Visit Bariatric Surgery [facility] 175 [facility] [address] [place] [address] Aleksandar Heaton MD Hyperchloremia (Primary Dx); Over weight 09/20/2024 7:44 AM EDT - 09/20/2024 11:59 PM EDT Hospital Encounter [facility] Xray [address] [place] [address] Gastroesophageal reflux disease, unspecified whether esophagitis present Discharge Disposition: Home or Self Care 08/29/2024 Telephone Endocrinology - [address] [phone] Luis Enrique Orellana MD PROVIDER CALL BACK 08/24/2024 3:06 PM EDT - 08/24/2024 11:59 PM EDT Hospital Encounter Radiology Department - [address] [phone] Multiple thyroid nodules Discharge Disposition: Home or Self Care 08/17/2024 1:30 PM EDT Consult Endocrinology - [address] [phone] Luis Enrique Orellana MD Multiple thyroid nodules (Primary Dx) 07/27/2024 11:00 AM EDT Office Visit Gastroenterology [facility] 175 [facility] 175 [facility] [address] [place] [phone] Piedad Gómez NP Bile-induced gastritis (Primary Dx); Bariatric surgery status; Chronic constipation 07/14/2024 9:00 AM EDT Office Visit Bariatric Surgery [address] [place] [address] Aleksandar Heaton MD Gastroesophageal reflux disease, unspecified whether esophagitis present (Primary Dx) from Last 3 Months Immunizations Name Administration Dates Next Due Tdap Tetanus diptheria acell ular pertussis (Boostrix; Adacel) 7yo and older 01/19/2012 Surgical History Surgery Date Site/Laterality Comments OTHER SURGICAL HISTORY PROCEDURE: PA ARTHRS AID TIBIAL FRACTURE PROXIMAL UNICONDYLAR CHOLECYSTECTOMY PROCEDURE: PA LAPAROSCOPY SURG CHOLECYSTECTOMY BUNIONECTOMY PROCEDURE: BUNION SURGERY, SIMPLE REMOVAL SECTION PROCEDURE: PA DELIVERY ONLY Medical History Medical History Date Comments Hypercholesteremia DX:Hyperchole steremia Class 2 severe obesity due t o excess calories with serious comorbidity and body mass index (BMI) of 35.0 to 35.9 in adult ([facility] V24, [facility] V28) 05/03/2020 DX:Class 2 severe obe sity due to excess calories with serious comorbidity and body mass index (BMI) of 35.0 to 35.9 in adult ([facility]) Gastroesophageal reflux dise ase with esophagitis without [...] 10:40 AM EDT Office Visit Gastroenterology - [place] [address] [phone] Piedad Gómez NP [address] [address] 02/07/2025 1:45 PM EST Office Visit Bariatric Surgery - [address] [phone] Aleksandar Heaton MD [address] [address] Health Maintenance Due Date Last Done Comments Breast Cancer Screening 1972 Cervical Cancer Screening: Pap Smear 1993 DTaP,Tdap,and Td Vaccines (2 - Td or Tdap) 01/18/2022 01/19/2012 Social Influencers of Health Screening 03/02/2022 Influenza Vaccine (#1) 2024 , 01/16/2023, 01/20/2022, Additional history exists Depression Screening 04/19/2025 04/19/2024 Colorectal Cancer Screening: FIT-DNA (Cologuard) 02/23/2026 02/23/2023 Cholesterol Screening (Lipid Panel) 06/17/2029 06/17/2024, 09/10/2021, 06/27/2020 HIV Screening Completed 12/12/2020 Hepatitis C Screening Completed 09/22/2023 COVID-19 Vaccine Completed 12/03/2023, , 01/22/2022, Additional history exists Hepatitis A Vaccines Aged [...] LAB CHEMISTRY METHOD 09/22/2024 6:27 PM EDT [facility] Potassium 3.6 3.5 - 5.5 mmol/L LAB CHEMISTRY METHOD 09/22/2024 6:27 PM EDT [facility] Chloride 109 96 - 110 mmol/L LAB CHEMISTRY METHOD 09/22/2024 6:27 PM EDT [facility] CO2 24 21 - 32 mmol/L LAB CHEMISTRY METHOD 09/22/2024 6:27 PM EDT [facility] Anion Gap 6 3 - 11 LAB CHEMISTRY METHOD 09/22/2024 6:27 PM EDT [facility] Blood Venous blood specimen / Unknown Venipuncture / Unknown 09/22/2024 1:48 PM EDT 09/22/2024 1:48 PM EDT us Aleksandar Heaton MD LAB BLOOD ORDERABLES Final R esult [facility] [address] [place] [address], * XR UGI w Single Contrast (09/20/2024 [...] Signed Date: 09/20/2024 09:47 ET Workstation ID: [id number] Transcribed By: Self Edit Transcribed Date: 09/20/2024 09:21 ET Resident/PA/SMALL ENGINE SPECIALIST: Roseline Gordillo Narrative 09/20/2024 9:47 AM EDT FINDINGS: Single contrast UGI performed. COMPARISON: Upper GI June 05, 2022 HISTORY: Patient is a 54-year-old female with history of gastric bypass in 2020, worsening GERD. SHALE PLANER OPERATOR radiographs: Diver Helper AP radiograph of the abdomen obtained. Bowel [...] 54-year-old female with history of gastric bypass [id number], worsening GERD. SHALE PLANER OPERATOR radiographs: Diver Helper AP radiograph of the abdomen obtained. Bowel [...] Signed Date: 09/20/2024 09:47 ET Workstation ID: [id number] Transcribed By: Self Edit Transcribed Date: 09/20/2024 09:21 ET Resident/PA/SMALL ENGINE SPECIALIST: Roseline Gordillo us Aleksandar Heaton MD IMG [...] Signed Date: 08/24/2024 17:24 ET Workstation ID: [id number] Transcribed By: Self Edit Transcribed Date: 08/24/2024 [...] Signed Date: 08/24/2024 17:24 ET Workstation ID: [id number] Transcribed By: Self Edit Transcribed Date: 08/24/2024 17:19 ET us Luis Enrique rOellana MD [facility] [place]ED[place] Final Result * (ABNORMAL) Lipid panel with reflex to direct LDL (06/17/2024 10:12 AM EDT) Cholesterol 230(H) 0 - 200 mg/dL LAB CHEMISTRY METHOD 06/17/2024 2:13 PM EDT [facility] Triglycerides 155(H) 0 - 150 mg/dL LAB CHEMISTRY METHOD 06/17/2024 2:13 PM EDT [facility] HDL 48 >=40 mg/dL LAB CHEMISTRY METHOD 06/17/2024 2:13 PM EDT [facility] LDL Calculated 151(H) 0 - 100 mg/dL LAB CHEMISTRY METHOD 06/17/2024 2:13 PM EDT [facility] VLDL Cholesterol Cristofer 31 mg/dL LAB CHEMISTRY METHOD 06/17/2024 2:13 PM EDT [facility] Non HDL Chol. (LDL+VLDL) 182(H) <145 mg/dL LAB CHEMISTRY METHOD 06/17/2024 2:13 PM EDT [facility] Chol/HDL Ratio 4.8(H) 0.0 - 4.4 LAB CHEMISTRY METHOD 06/17/2024 2:13 PM EDT [facility] Blood Venous blood specimen / Unknown Venipuncture / Unknown 06/17/2024 10:12 AM EDT 06/17/2024 11:07 AM EDT Aleksandar Heaton MD LAB BLOOD ORDERABLES Final R esult [facility] [address] [place] [address], * Hepatitis C Screening (09/22/2023) Hepatitis C Screening abstracted Historical Provider HEALTH MAINTENANCE Final Result from Last 3 Months or Most Recently Relevant to Health Maintenance Insurance MEDICAID - [place] Care Teams College Advisor Relationship Specialty Start Date End Date Jackie Abdi MD [address] [place] [id number] PCP - General 10/20/16
== END 2024-10-06 14:53 | disposition home or self-care (01) ==
LOC: HO.HOS 14:12
PROVIDERS: PCP Student in an Organized Health Care Education/Training Program; Visit Provider Physician Assistant
DX: M75.101 Unspecified rotator cuff tear or rupture of right shoulder, not specified as traumatic (principal)
CPT/HCPCS: 99024

== ENCOUNTER → 2024-10-06 14:12 | Outpatient (BNVA) | payer MEDICAID, SELFPAY | PROVIDERS: PCP Student in an Organized Health Care Education/Training Program; Visit Provider Physician Assistant | DX: Z01.818 Encounter for other preprocedural examination (principal); M75.101 Unspecified rotator cuff tear or rupture of right shoulder, not specified as traumatic; Z98.890 Other specified postprocedural states; Z86.718 Personal history of other venous thrombosis and embolism | CPT/HCPCS: 99212 ==

== ENCOUNTER 2024-10-12 06:07 | Day surgery (SDC) | payer MEDICAID, SELFPAY ==
--- OUTSIDE RECORDS SUMMARY | 2024-09-02 08:46 | XMS_ITS | Clinical Summary ---
Author Organization 175 [facility] Address [address] [place] [address] Phone Care Team Providers Care [place] [facility] Name Role Phone Jackie Abdi MD Primary Care Provider [phone] Allergies Active Allergy Reactions Criticality Noted Date [...] (gassiness). 60 capsule 5 06/04/19 25 Active Additional Information Patient not taking.Reported on 08/17/2024 topiramate (Topamax) 50 mg tabletIndication s:Class 1 obesity due to excess calories with body mass index (BMI) of 30.0 to 30.9 in adult, unspecified whether serious comorbidity present Take 1 tablet (50 mg total) by mouth at bedtime. 30 each 2 07/01/19 25 025 Active levothyroxine (SYNTHROID, LEVOTHROID) 25 mcg tablet Take 1 tablet (25 mcg total) by mouth 1 (one) time each day. 07/01/19 25 026 Active polyethylene glycol (MIRALAX) 17 gram packetIndication s:Chronic constipation Take 17 g by mouth 1 (one) time each day. 1530 g 07/28/19 25 025 Active phentermine 15 mg capsuleIndicatio ns:Class 1 obesity due to excess calories with body mass index (BMI) of 30.0 to 30.9 in adult, unspecified whether serious comorbidity present Take 1 capsule (15 mg total) by mouth 1 (one) time each day before breakfast. Max Daily Amount: 15 mg 30 each 08/25/19 25 025 Active zolpidem CR (Ambien CR) 6.25 mg CR tabletIndication s:Class 1 obesity due to excess calories with body mass index (BMI) of 30.0 to 30.9 in adult, unspecified whether serious comorbidity present Take 1 tablet (6.25 mg total) by mouth at bedtime as needed for sleep. Do not crush, chew, or split. Max Daily Amount: 6.25 mg 30 tablet 08/27/19 25 025 Active phentermine 15 mg capsuleIndicatio ns:Class 1 obesity due to excess calories with body mass index (BMI) of 30.0 to 30.9 in adult, unspecified whether serious comorbidity present Take 1 capsule (15 mg total) by mouth 1 (one) time each day before breakfast. Max Daily Amount: 15 mg 30 each 07/01/19 25 025 Discontin ued(Reord er) Active Problems Problem Noted Date Diagnosed Date Bile-induced gastritis 03/08/2024 Nausea and vomiting 03/08/2024 Overweight (BMI 25.0-29.9) 04/22/2021 Eating disorder 10/11/2020 Hypercholesteremia 10/11/2020 Obstructive sleep apnea 10/11/2020 Overview (03/08/2024): CPAP Gastroesophageal reflux dise ase with esophagitis without hemorrhage 05/03/2020 Encounters Date Type Department Care Team Description 08/29/2024 Telephone [id number] [place] [address] Luis Enrique Orellana MD PROVIDER CALL BACK 08/24/2024 3:06 PM EDT - 08/24/2024 11:59 PM EDT Hospital Encounter Radiology Department - [address] [phone] Multiple thyroid nodules Discharge Disposition: Home or Self Care 08/17/2024 1:30 PM EDT Consult Endocrinology - [address] [phone] Luis Enrique Orellana MD Multiple thyroid nodules (Primary Dx) 07/27/2024 11:00 AM EDT Office Visit Gastroenterology - [address] [phone] Piedad Gómez NP Bile-induced gastritis (Primary Dx); Bariatric surgery status; Chronic constipation 07/14/2024 9:00 AM EDT Office Visit Bariatric Surgery - [address] [phone] Aleksandar Heaton MD Gastroesophageal reflux disease, unspecified whether esophagitis present (Primary Dx) 06/16/2024 3:45 PM EDT Office Visit Bariatric Surgery - [address] [phone] Aleksandar Heaton MD Class 1 obesity due to excess calories with body mass index (BMI) of 30.0 to 30.9 in adult, unspecified whether serious comorbidity present (Primary Dx) 06/03/2024 2:40 PM EST Office Visit Gastroenterology - [address] [phone] Artis Leyva PA Epigastric pain (Primary Dx); [...] (BMI) of 35.0 to 35.9 in adult ([facility] V24, [facility] V28) 05/03/2020 DX:Class 2 severe obe sity due to excess calories with serious comorbidity and body mass index (BMI) of 35.0 to 35.9 in adult ([facility]) Gastroesophageal reflux dise ase with esophagitis without [...] Care Team (Late st Contact Info) Description 09/20/2024 8:00 AM EDT Appointment [facility] Xray [address] [place] [phone] 09/22/2024 1:45 PM EDT Office Visit Bariatric Surgery - [place] [address] [phone] Aleksandar Heaton MD [address] [address] 10/26/2024 10:40 AM EDT Office Visit Gastroenterology - [place] 175 [facility] [address] [phone] Piedad Gómez NP [address] [phone] Health Maintenance Due Date Last Done Comments [...] Name Priority Date/Time Associated Diagnosis Comments US HEAD NECK SOFT TISSUE Routine 08/24/2024 3:20 PM EDT Multiple thyroid nodules HEPATIC FUNCTION PANEL Routine 06/17/2024 10:12 AM [...] in adult, unspecified whether serious comorbidity present HM HEPATITIS C SCREENING Routine 09/22/2023 from Last 3 Months or Most Recently Relevant to Health Maintenance Results * US Head Neck Soft Tissue (08/24/2024 3:20 PM EDT) Anatomical Region Laterality Modality Head and Neck Ultrasound 08/24/2024 5:19 PM EDT Impressions 08/24/2024 5:24 PM EDT Multiple cystic nodules throughout the thyroid parenchyma bilaterally. -------- FINAL REPORT -------- Dictated By: John Lordeo Dictated Date: 08/24/2024 17:19 ET Assigned Physician: John Loredo Reviewed and Electronically Signed By: John Loredo Signed Date: 08/24/2024 17:24 ET Workstation ID: [id number] Transcribed By: Self Edit Transcribed Date: 08/24/2024 17:19 ET Narrative 08/24/2024 5:24 PM EDT Exam: Thyroid ultrasound. HISTORY: nodule? COMPARISON: None Technique: Grayscale and Doppler images of the thyroid gland were obtained. FINDINGS: The thyroid gland is normal in size. The right lobe measures 4.9 x 1.2 x 1.8 cm. The left lobe measures 4.2 x 1.1 x 1.5 cm. The thyroid isthmus is normal in size and measures 0.4 cm. The thyroid parenchyma is heterogenous. ??There are multiple innumerable cystic nodules throughout the thyroid parenchyma bilaterally. Procedure Note John Loredo MD - 08/24/2024 Exam: Thyroid ultrasound. HISTORY: nodule? COMPARISON: None Technique: Grayscale and Doppler images of the thyroid gland wereobtained. FINDINGS: The thyroid gland is normal in size. The right lobe measures 4.9 x 1.2 x1.8 cm. The left lobe measures 4.2 x 1.1 x 1.5 cm. The thyroid isthmus isnormal in size and measures 0.4 cm. The thyroid parenchyma isheterogenous. There are multiple innumerable cystic nodules throughoutthe thyroid parenchyma bilaterally. IMPRESSION: Multiple cystic nodules throughout the thyroid parenchyma bilaterally. -------- FINAL REPORT -------- Dictated By: John Loredo Dictated Date: 08/24/2024 17:19 ET Assigned Physician: John Loredo Reviewed and Electronically Signed By: John Loredo Signed Date: 08/24/2024 17:24 ET Workstation ID: [id number] Transcribed By: Self Edit Transcribed Date: 08/24/2024 17:19 ET us Luis Enrique Orellana MD IMG US PROCEDURES Final Result * (ABNORMAL) Lipid panel with reflex to direct LDL (06/17/2024 10:12 AM EDT) Cholesterol 230(H) 0 - 200 mg/dL LAB CHEMISTRY METHOD 06/17/2024 2:13 PM [facility] Triglycerides 155(H) 0 - 150 mg/dL LAB CHEMISTRY METHOD 06/17/2024 2:13 PM [facility] HDL 48 >=40 mg/dL LAB CHEMISTRY METHOD 06/17/2024 2:13 PM [facility] LDL Calculated 151(H) 0 - 100 mg/dL LAB CHEMISTRY METHOD 06/17/2024 2:13 PM [facility] VLDL Cholesterol Cristofer 31 mg/dL LAB CHEMISTRY METHOD 06/17/2024 2:13 PM [facility] Non HDL Chol. (LDL+VLDL) 182(H) <145 mg/dL LAB CHEMISTRY METHOD 06/17/2024 2:13 PM [facility] Chol/HDL Ratio 4.8(H) 0.0 - 4.4 LAB CHEMISTRY METHOD 06/17/2024 2:13 PM [facility] Blood Venous blood specimen / Unknown Venipuncture / Unknown 06/17/2024 10:12 AM EDT 06/17/2024 11:07 AM EDT us Aleksandar Heaton MD LAB BLOOD ORDERABLES Final R esult Performing Organization Address City/[facility]/ZIP Co de Phone Number [facility] [address] [place] [address], [place] [phone] * (ABNORMAL) Thyroid stimulating hormone (06/17/2024 10:12 AM EDT) Pathologist [facility] TSH 5.21(H) 0.40 - 4.00 mcIU/mL LAB CHEMISTRY METHOD 06/17/2024 2:45 PM EDT [facility] Blood Venous blood specimen / Unknown Venipuncture / Unknown 06/17/2024 10:12 AM EDT 06/17/2024 11:07 AM EDT us Aleksandar Heaton MD LAB BLOOD ORDERABLES Final R esult Performing Organization Address [facility] Co de Phone Number [facility] [address] [place] [address], [place] [phone] * Hemoglobin A1c (06/17/2024 10:12 AM EDT) Pathologist [facility] Hemoglobin A1C 5.9 <6.5 % LAB CHEMISTRY METHOD 06/17/2024 12:33 PM EDT [facility] Mean Bld Glu Estim. 123 mg/dL LAB CHEMISTRY METHOD 06/17/2024 12:33 PM EDT [facility] Blood Venous blood specimen / Unknown Venipuncture / Unknown 06/17/2024 10:12 AM EDT 06/17/2024 11:08 AM EDT us Aleksandar Heaton MD LAB BLOOD ORDERABLES Final R esult Performing Organization Address City/State/[facility] Co de Phone Number [facility] [address] [place] [address], [place] [phone] * Hepatic function panel (06/17/2024 10:12 AM EDT) Total Protein 7.1 6.0 - 8.0 g/dL LAB CHEMISTRY METHOD 06/17/2024 2:13 PM EDT [facility] Albumin 3.7 3.2 - 5.0 g/dL LAB CHEMISTRY METHOD 06/17/2024 2:13 PM EDT [facility] Total Bilirubin 0.3 0.0 - 1.4 mg/dL LAB CHEMISTRY METHOD 06/17/2024 2:13 PM EDT [facility] Bilirubin, Direct <0.1 0.0 - 0.3 mg/dL LAB CHEMISTRY METHOD 06/17/2024 2:13 PM EDT [facility] Bilirubin, Indirect LAB CHEMISTRY METHOD 06/17/2024 2:13 PM EDT [facility] Comment:Unable to calculate Indirect Bilirubin. ALT (SGPT) 19 10 - 60 unit/L LAB CHEMISTRY METHOD 06/17/2024 2:13 PM EDT [facility] AST (SGOT) 14 10 - 42 unit/L LAB CHEMISTRY METHOD 06/17/2024 2:13 PM EDT [facility] Alkaline Phosphatase 93 42 - 121 unit/L LAB CHEMISTRY METHOD 06/17/2024 2:13 PM EDT [facility] Blood Venous blood specimen / Unknown Venipuncture / Unknown 06/17/2024 10:12 AM EDT 06/17/2024 11:07 AM EDT us Aleksandar Heaton MD LAB BLOOD ORDERABLES Final R esult [facility] [address] [place] [address], [place] [phone] * Hm Hepatitis C Screening (09/22/2023) Hepatitis C Screening abstracted us Historical Provider HEALTH MAINTENANCE Final Result from Last 3 Months or Most Recently Relevant to Health Maintenance Insurance MEDICAID - [place] Care Teams [place] Relationship Specialty Start Date End Date Jackie Abdi MD [address] [place] [id number] PCP - General 10/20/16
[2024-10-07 13:40] VITALS: BMI 28.5
--- NOTE | 2024-10-11 08:31 | HO.ANESPROP2 ---
Documented by User: Lauren Norton NP 10/11/24 08:37 HPI - Anesthesia Eval Consult details Narrative: 54yo F for Right Arthroscopic Rotator Cuff Repair Cardiac optimized per 07/2024 preop eval visit. Follows [facility] [place] Cardiology for small VSD, atypical CP with negative w/u Hx DVT/PE post op ortho PMFSH Active Problems Active Problems: All Active Problems S/P right rotator cuff repair (Acute) Right rotator cuff tear (Acute) Tendinitis of right rotator cuff (Acute) Osteoarthritis of right acromioclavicular joint (Acute) Lower urinary tract symptoms (Acute) Microscopic hematuria (Acute) Dysuria (Acute) Recurrent UTI (Acute) Precordial chest pain (Acute) VSD (ventricular septal defect) (Acute) Anemia (Acute) Chronic knee pain after total replacement of knee joint (Acute) Status post revision of total replacement of right knee (Acute) Infection associated with internal right knee prosthesis (Acute) Valgus deformity, not elsewhere classified, left knee (Acute) Past Medical History Medical History VSD (ventricular septal defect) Infection associated with internal right knee prosthesis Cellulitis History of pulmonary embolism History of DVT (deep vein thrombosis) Post-traumatic osteoarthritis of right knee Sleep apnea High cholesterol Asthma HTN (hypertension) Family History Family History Father Heart problem Mother Heart problem Family history of problems with anesthesia: No Surgical History Surgical History Status post total knee replacement, right History of bunionectomy of both great toes Hx of gastric bypass History of laparoscopic cholecystectomy History of H/O right knee surgery History of Problems with Anesthesia: No Social History Social History Household Members: Spouse Housing: House Are you a primary healthcare specialist to a significant other at home: No Do you presently have visiting nurse or other home services: No Alcohol intake: never Patient Tobacco Use Status: Never used Tobacco Use of substances other than those prescribed or required for medical reasons: No Are you DNR?: No Advance Directives: No Advance Directives Information Provided: Yes service: No Current occupational status: unemployed and disabled Current occupation: rt handed. Meds Allergies Allergy/AdvReac Type Severity Reaction Status Date / Time sulfamethoxazole (From Allergy Intermediate Facial Verified 10/12/24 06:20 Bactrim) Swelling trimethoprim (From Bactrim) Allergy Intermediate Facial Verified 10/12/24 06:20 Swelling Home Medications ?Medication ?Instructions ?Recorded ?Confirmed ?Last Taken ?Type albuterol sulfate 90 mcg/actuation 2 inh inhalation Q6H PRN Shortness 11/15/20 10/12/24 Unknown History breath activated powder inhaler Of Breath Or Wheezing omeprazole 40 mg capsule,delayed 40 mg PO DAILY@0630 11/15/20 10/12/24 Unknown History release budesonide-formoterol HFA 160 2 puff inhalation BID PRN 05/06/21 10/12/24 Unknown History mcg-4.5 mcg/actuation aerosol Shortness Of Breath inhaler (Symbicort) azelastine 137 mcg (0.1 %) nasal 1 spray intranasal BID 08/11/22 10/12/24 Unknown History spray hydroxyzine HCl 25 mg tablet 25 mg PO DAILY 08/11/22 10/12/24 Unknown History levothyroxine 25 mcg tablet 25 mcg PO DAILY 08/23/24 10/12/24 Unknown History fluoxetine 10 mg capsule 10 mg PO DAILY 10/12/24 10/12/24 Unknown History phentermine 15 mg capsule 15 mg PO DAILY 10/12/24 10/12/24 Unknown History topiramate 50 mg tablet 50 mg PO DAILY 10/12/24 10/12/24 Unknown History zolpidem 6.25 mg tablet,extended 6.25 mg PO BEDTIME PRN Insomnia 10/12/24 10/12/24 Unknown History release,multiphase Exam Height,Weight and Vital Signs: Height 4 ft 11 in Weight 63.957 kg Pertinent Lab Results Pertinent Lab Results: Laboratory Tests 07/29/24 09/29/24 09:20 09:15 WBC 7.6 Hgb 11.8 L Hct 37.0 Plt Count 373 Sodium 143 Potassium 3.3 Chloride 112 H Carbon Dioxide 23 BUN 11 Creatinine 0.90 Narrative Narrative: EKG 07/2024 Details: EKG today showed normal sinus rhythm, rate 68 beats per minute, nonspecific T-waves, normal IN, corrected QT. 01/01/2024-patient underwent a myocardial perfusion study which was normal with a good amount of workload with no EKG changes. 01/01/2024-echo study showed a normal LV systolic function with an ejection fraction between 55-60%, with evidence of a small muscular ventricular septal defect. EKG today showed normal sinus rhythm. Blood pressure within normal limits. Continue statin therapy with an LDL goal less than 100. Assessment and Plan Assessment Anesthesia Assessment: Chart Reviewed Final Anesthetic Review Family History of Problems with Anesthesia: No History of Problems with Anesthesia: No Documented by User: Monica Young MD 10/12/24 08:16 [facility] Past Medical History Medical History VSD (ventricular septal defect) Infection associated with internal right knee prosthesis Cellulitis History of pulmonary embolism History of DVT (deep vein thrombosis) Post-traumatic osteoarthritis of right knee Sleep apnea High cholesterol Asthma HTN (hypertension) Family History Family History Father Heart problem Mother Heart problem Surgical History Surgical History Status post total knee replacement, right History of bunionectomy of both great toes Hx of gastric bypass History of laparoscopic cholecystectomy History of H/O right knee surgery Social History Social History Household Members: Spouse Housing: House Are you a primary healthcare specialist to a significant other at home: No Do you presently have visiting nurse or other home services: No Alcohol intake: never Patient Tobacco Use Status: Never used Tobacco Use of substances other than those prescribed or required for medical reasons: No Are you DNR?: No Advance Directives: No Advance Directives Information Provided: Yes service: No Current occupational status: unemployed and disabled Current occupation: rt handed. Meds Allergies Allergy/AdvReac Type Severity Reaction Status Date / Time sulfamethoxazole (From Allergy Intermediate Facial Verified 10/12/24 06:20 Bactrim) Swelling trimethoprim (From Bactrim) Allergy Intermediate Facial Verified 10/12/24 06:20 Swelling Home Medications ?Medication ?Instructions ?Recorded ?Confirmed ?Last Taken ?Type albuterol sulfate 90 mcg/actuation 2 inh inhalation Q6H PRN Shortness 11/15/20 10/12/24 Unknown History breath activated powder inhaler Of Breath Or Wheezing omeprazole 40 mg capsule,delayed 40 mg PO DAILY@0630 11/15/20 10/12/24 Unknown History release budesonide-formoterol HFA 160 2 puff inhalation BID PRN 05/06/21 10/12/24 Unknown History mcg-4.5 mcg/actuation aerosol Shortness Of Breath inhaler (Symbicort) azelastine 137 mcg (0.1 %) nasal 1 spray intranasal BID 08/11/22 10/12/24 Unknown History spray hydroxyzine HCl 25 mg tablet 25 mg PO DAILY 08/11/22 10/12/24 Unknown History levothyroxine 25 mcg tablet 25 mcg PO DAILY 08/23/24 10/12/24 Unknown History fluoxetine 10 mg capsule 10 mg PO DAILY 10/12/24 10/12/24 Unknown History phentermine 15 mg capsule 15 mg PO DAILY 10/12/24 10/12/24 Unknown History topiramate 50 mg tablet 50 mg PO DAILY 10/12/24 10/12/24 Unknown History zolpidem 6.25 mg tablet,extended 6.25 mg PO BEDTIME PRN Insomnia 10/12/24 10/12/24 Unknown History release,multiphase Exam Airway Mallampati Class: II TM Dist: >3cm Neck ROM: Full Heart: rrr Lungs: cta Assessment and Plan Assessment Anesthesia Assessment: Anesthesia Plan Discussed Final Anesthetic Review NPO: Yes ASA Class: III Final Preanesthetic Review: No Changes in Pt Med Stat, Meds/Allgs Chart Reviewed, Consent Obtained/Reviewed and Anes Risks/Benef Reviewed Patient Risk: Intermediate Procedure Risk: Intermediate Anesthetic Plan Anesthetic Plan: GA and Agree w/ Assess. and Plan Disposition: Standard PACU
[2024-10-12] VITALS (7 sets, daily range): BP systolic 102–121; BP diastolic 52–67; PULSE 62–69; RESP 14–16; TEMP 36.1–36.5; O2SAT 98–100; BMI 26.5
[2024-10-12] MEDS: Lactated Ringers 1,000 ML 100 ML IVCONT (06:44)
--- NOTE | 2024-10-12 07:20 | MHC.SHP ---
Pre-Procedural Eval Section A - 24 Hr Update-Section A only Date of Service: 10/12/24 The patient is an INPATIENT: No Changes since office visit: No Cold of Flu in the past 2 weeks, No New Medical Problems, No Changes in Medication and No Patient answered all questions The patient has been examined within 24 hours of the surgical procedure. The History & Physical has been completed within 30 days and I have reviewed it.: Yes Section B - Complete if H&P > 30 days Chief Complaint: Unspecified rotator cuff tear or rupture of right Allergies: Allergies Allergy/AdvReac Type Severity Reaction Status Date / Time sulfamethoxazole (From Allergy Intermediate Facial Verified 10/12/24 06:20 Bactrim) Swelling trimethoprim (From Bactrim) Allergy Intermediate Facial Verified 10/12/24 06:20 Swelling Plan I have reviewed the history and physical and performed a pertinent physical examination on my patient. No changes have occurred unless specified. Time Spent With Patient Time: Total time managing care of this patient today ____ minutes.
--- NOTE | 2024-10-12 09:26 | P.BOP_ITS ---
Brief Operative Note Date of Service: 10/12/24 Pre-op diagnosis: Right RTC tear Post-op diagnosis: same Procedure: Right RTC repair. Supra and subscap Surgeon: Bobby Cerrato MD Anesthesia: GETA and regional Was an Automatic Fabric Cutter used for this Procedure?: Yes Automatic Fabric Cutter: Teresa Mejia Estimated blood loss (mL): 20 IV fluids (mL): 1,000 Pathology: none sent Condition: stable Disposition: PACU
--- NOTE | 2024-10-14 11:10 | P.OP_ITS ---
Operative Note Operative Note Date of Service: 10/12/24 Narrative: Date of Service: 10/12/24 Pre-op diagnosis: Right RTC tear Post-op diagnosis: same Procedure: Right RTC repair. Supra and subscap Implants: Mesa and Nephew: Micro-raptor suture anchor x1; double loaded 4.75 Healicoil x2; knotless Healicoil 5.0 x 2; Regeneten bio inductive collagen patch, medium, x1 Surgeon: Bobby Cerrato MD Anesthesia: GETA and regional Was an Social Research Assistant used for this Procedure?: Yes Social Research Assistant: Teresa Mejia Estimated blood loss (mL): 20 IV fluids (mL): 1,000 Pathology: none sent Condition: stable Disposition: PACU Procedure in detail: Patient was brought to the operating room and placed the the beach chair position. All bony prominences were well padded and the limb was prepped and draped in standard sterile fashion. A time out was called to identify proper site, proper procedure and proper surgeon. IV antibiotics per weight were administered. I began by making a posterolateral stab incision with a 15 blade. A blunt trochar was placed into the glenohumeral joint and I insufflated the joint with saline and a 30 degree arthroscope was placed. I established an outside- in anterior portal just distal to the biceps tendon. I then began my inspection of the glenohumeral joint. There were no cartilage changes. The articular surfaces appeared pristine. There was some minimal fraying of the superior labrum which was debrided and there was a partial-thickness high-grade tear of the subscapularis involving the superior 50% of the tendon. The subscapular bed was debrided with a bur and a FiberTape was placed in a mattress configuration and brought laterally to the insertion of the subscap and kept in place with a micro raptor anchor. There was a undersurface rotator cuff tear involving the supraspinatus that was clearly full-thickness. I then removed the trochar and entered the subacromial space. A direct lateral portal was then established and I performed a bursectomy. The cuff was then examined. There was a full thickness tear of the supra and infraspinatus without retraction. The tear was mobile but there was certainly a chronic aspect to the tear. I released some of the anterior and medial fibers to allow for more mobility. This was a crescentic tear with reasonable quality of the tissue. I placed two medial row double loaded anchors after using a tap just adjacent to the articular cartilage and then brought the suture limbs ( 8) through the medi al cuff. I then debrided the bare area down to bleeding bone and, using a cross bridge configuration, brought 4 limbs to each of two lateral 5.0 anchors. This re-approximated the cuff anatomy anatomically. Because of the chronicity and the severity of the tear I elected to place a medium size Regeneten patch over the repair. The Regeneten patch was inserted through the anterolateral portal and held in place with peek louisa medially and 2 bone louisa laterally. I had excellent coverage of the repair. Once I was satisfied with the patch position and repair my final images were captured and I removed all instrumentation. Portals were closed with nylon. Patient was placed in an abduction sling, extubated and brought to the recovery room in stable condition. There were no known complications.
== END 2024-10-12 11:37 | disposition home or self-care (01) ==
LOC: HO.SSS 06:08
PROVIDERS: PCP Student in an Organized Health Care Education/Training Program; Visit Provider Orthopaedic Surgery
PROC: (CPT 29827; principal; 2024-10-12 07:30)
DX: M75.101 Unspecified rotator cuff tear or rupture of right shoulder, not specified as traumatic (principal); G47.33 Obstructive sleep apnea (adult) (pediatric); I10 Essential (primary) hypertension; E78.00 Pure hypercholesterolemia, unspecified; Q21.0 Ventricular septal defect; J45.909 Unspecified asthma, uncomplicated; Z86.718 Personal history of other venous thrombosis and embolism; Z86.711 Personal history of pulmonary embolism; Z96.651 Presence of right artificial knee joint; Z79.51 Long term (current) use of inhaled steroids; Z79.899 Other long term (current) drug therapy; Z88.2 Allergy status to sulfonamides; Z98.890 Other specified postprocedural states; Z98.84 Bariatric surgery status; Z56.0 Unemployment, unspecified
CPT/HCPCS: 29827; C1713; C1763; J0131; J0165; J0665; J0690; J1100; J2003; J2250; J2405; J2704; J2795; J3010

== ENCOUNTER → 2024-10-12 06:07 | Outpatient (BNV) | payer MEDICAID, SELFPAY | PROVIDERS: PCP Student in an Organized Health Care Education/Training Program; Visit Provider Orthopaedic Surgery | DX: M75.101 Unspecified rotator cuff tear or rupture of right shoulder, not specified as traumatic (principal) | CPT/HCPCS: 29827 ==

== ENCOUNTER 2024-10-18 14:13 | Outpatient (AMB) | payer MEDICAID, SELFPAY ==
--- NOTE | 2024-10-18 14:35 | A.OFFVIS_ITS ---
Vital Signs 10/18/24 14:43 Height 4 ft 11 in Weight 131 lb BMI 26.5 Intake Visit Reasons: PO-RT RTC Repair 10/12/24 NE Intake Note: Sade is a 54 year old female who presents today for a post op appointment s/p Right RTC repair. Supra and subscap 10/12/24 NE. Patient states she is in a lot of pain. She continues taking Oxycodone, celebrex, and Tylenol without relief of pain. Denies numbness or tingling. She continues wearing Allergies sulfamethoxazole (From Bactrim) Allergy (Intermediate, Verified 10/18/24 14:43) Facial Swelling trimethoprim (From Bactrim) Allergy (Intermediate, Verified 10/18/24 14:43) Facial Swelling HPI HPI PO-RT RTC Repair 10/12/24 NE: Details: Ms. Fraga is a 54-year-old female who presents to the office today status post rotator cuff repair of the subscap and supraspinatus with collagen patch performed on 10/12/[address] Cerrato. Patient presents to the office today appropriately positioned in the abduction sling. She reports that she is experiencing pain and would like a refill of her narcotics. She has a physical therapy appointment scheduled for the 20 of October. [facility] Medical History VSD (ventricular septal defect) Infection associated with internal right knee prosthesis Cellulitis History of pulmonary embolism History of DVT (deep vein thrombosis) Post-traumatic osteoarthritis of right knee Sleep apnea High cholesterol Asthma HTN (hypertension) Surgical History Status post total knee replacement, right History of bunionectomy of both great toes Hx of gastric bypass History of laparoscopic cholecystectomy History of H/O right knee surgery Family History Father Heart problem Mother Heart problem Social History Household Members: Spouse Housing: House Are you a primary career technical education teacher to a significant other at home: No Do you presently have visiting nurse or other home services: No Alcohol intake: never Patient Tobacco Use Status: Never used Tobacco service: No Current occupational status: unemployed and disabled Current occupation: rt handed. Review of Systems Const All systems reviewed & are unremarkable except as noted in HPI and below Physical Exam Vital Signs: BMI result Body Mass Index 26.5 Const General: cooperative, healthy appearing and no acute distress Resp Effort & Inspection: normal respiratory effort and able to speak in complete sentences Extrem Other: Right shoulder incision sites are clean dry and intact. There is ecchymosis about the anterior aspect of the shoulder expanding into the chest. Forward flexion abduction to 45 degrees. External rotation to neutral. Sutures intact. No signs of infection. No surrounding erythema or drainage. NVI. Assessment & Plan Assessment & Plan (1) S/P right rotator cuff repair: Code(s): Z98.890 - Other specified postprocedural states Category: Surgical Plan Ms. Fraga is a 54-year-old female who presents to the office today status post rotator cuff repair of the subscap and supraspinatus with collagen patch performed on 10/12/[address] Cerrato. Patient presents to the office today appropriately positioned in the abduction sling. She reports that she is experiencing pain and would like a refill of her narcotics. She has a physical therapy appointment scheduled for the 20 of October. While in the office today, sutures are removed and Steri-Strips were applied. She has a 1st physical therapy appointment on 10/20/2024. I demonstrated pendulum exercises to the patient while in the office today that she can be performing until her physical therapy session. I have also sent a refill for oxycodone-acetaminophen 5-325 p.o. q.4-6 hours p.r.n. pain # 42 to the pharmacy. She will follow up in [address] Cerrato, sooner if needed. Medications: Refilled oxycodone-acetaminophen 5-325 mg Partial Fill upon patient request. 1 tab PO Q4-6H 7 days PRN 42 tabs 0RF pain Coding Level of Care Code Global (35743) Diagnoses S/P right rotator cuff repair Z98.890
[2024-10-18 14:43] VITALS: BMI 26.5
--- OUTSIDE RECORDS SUMMARY | 2024-10-18 15:29 | XMS_ITS | Encounter Summary ---
Author Organization [employer] Address [address] [facility] [address] [place] [address] Care Team Providers Care Windows Server Architect Name Role Phone Jackie Abdi MD Primary Care Provider [phone] Encounter Details Date Type Department Care Team (Late st Contact Info) Description 09/20/2024 Orders Only [facility] [address] [place] [address] Provider, MD Sagar Social History Tobacco Use [...] documented as of this encounter Care Teams Windows Server Architect Relationship Specialty Start Date End Date Jackie Abdi MD [address] [place] [id number] PCP - General Family Medicine 04/29/13 documented as of this encounter
--- OUTSIDE RECORDS SUMMARY | 2024-10-18 15:29 | XMS_ITS | Clinical Summary ---
Author Organization [facility] Address [address] [place] [address] Phone Care Team Providers Care Demonstrator Sewing Techniques Name Role Phone Jackie Abdi MD Primary Care Provider [phone] Allergies Active Allergy Reactions Criticality Noted Date [...] Amount: 15 mg 30 each 10/06/19 25 025 Active topiramate (TOPAMAX) 50 mg tabletIndication s:Class 1 obesity due to excess calories with body mass index (BMI) of 30.0 to 30.9 in adult, unspecified whether serious comorbidity present Take 1 tablet (50 mg total) by mouth at bedtime. 30 tablet 3 10/06/19 25 Active zolpidem CR (Ambien CR) 6.25 mg CR tabletIndication s:Other insomnia Take 1 tablet (6.25 mg total) by mouth at bedtime as needed for sleep. Do not crush, chew, or split. Max Daily Amount: 6.25 mg 30 tablet 10/08/19 25 025 Active phentermine 15 mg capsuleIndicatio ns:Class 1 obesity due to excess calories with body mass index (BMI) of 30.0 to 30.9 in adult, unspecified whether serious comorbidity present Take 1 capsule (15 mg total) by mouth 1 (one) time each day before breakfast. Max Daily Amount: 15 mg 30 each 08/25/19 25 025 Discontinu ed(Reorder ) zolpidem CR (Ambien CR) 6.25 mg CR tabletIndication s:Class 1 obesity due to excess calories with body mass index (BMI) of 30.0 to 30.9 in adult, unspecified whether serious comorbidity present Take 1 tablet (6.25 mg total) by mouth at bedtime as needed for sleep. Do not crush, chew, or split. Max Daily Amount: 6.25 mg 30 tablet 08/27/19 25 025 topiramate (TOPAMAX) 50 mg tabletIndication s:Class 1 obesity due to excess calories with body mass index (BMI) of 30.0 to 30.9 in adult, unspecified whether serious comorbidity present TAKE 1 TABLET(50 MG) BY MOUTH AT BEDTIME 30 tablet 3 09/15/19 25 025 Discontinu ed(Reorder ) Active Problems Problem Noted Date Diagnosed Date Bile-induced gastritis 03/08/2024 Nausea and vomiting 03/08/2024 Overweight (BMI 25.0-29.9) 04/22/2021 Eating disorder 10/11/2020 Hypercholesteremia 10/11/2020 Obstructive sleep apnea 10/11/2020 Overview (03/08/2024): CPAP Gastroesophageal reflux dise ase with esophagitis without hemorrhage 05/03/2020 Encounters Date Type Department Care Team Description 09/22/2024 1:45 PM EDT Office Visit Bariatric Surgery - [place] [facility] [address] [place] [address] Aleksandar Heaton MD Hyperchloremia (Primary Dx); Over weight 09/20/2024 7:44 AM EDT - 09/20/2024 11:59 PM EDT Hospital Encounter [facility] [address] [place] [phone] Gastroesophageal reflux disease, unspecified whether esophagitis present Discharge Disposition: Home or Self Care 08/29/2024 Telephone Endocrinology - [address] [phone] Luis Enrique Orellana MD PROVIDER CALL BACK 08/24/2024 3:06 PM EDT - 08/24/2024 11:59 PM EDT Hospital Encounter Radiology Department - [address] [phone] Multiple thyroid nodules Discharge Disposition: Home or Self Care 08/17/2024 1:30 PM EDT Consult Endocrinology - [address] [phone] Luis Enrique Orellana MD Multiple thyroid nodules (Primary Dx) 07/27/2024 11:00 AM EDT Office Visit Gastroenterology - [place] [address] [facility] [address] [facility] [address] [place] [address] Piedad Góemz NP Bile-induced gastritis (Primary Dx); Bariatric surgery status; Chronic constipation from Last 3 Months Immunizations Name Administration [...] (BMI) of 35.0 to 35.9 in adult ([facility] V24, [facility] V28) 05/03/2020 DX:Class 2 severe obe sity due to excess calories with serious comorbidity and body mass index (BMI) of 35.0 to 35.9 in adult ([facility]) Gastroesophageal reflux dise ase with esophagitis [...] 10:40 AM EDT Office Visit Gastroenterology - [place] [address] [place] [phone] Piedad Gómez, DEMETRIA 175 [facility] [address] [place] [address] 02/07/2025 1:45 PM EST Office Visit Bariatric Surgery - [place] [address] [facility] [address] [place] [phone] Aleksandar Heaton MD [address] [facility] [address] [place] [address] Health Maintenance Due Date Last Done Comments Breast Cancer Screening 1972 Cervical Cancer Screening: Pap Smear 1993 DTaP,Tdap,and Td Vaccines (2 - Td or Tdap) 01/18/2022 01/19/2012 Social Influencers of Health Screening 03/02/2022 Depression Screening 03/30/2024 Influenza Vaccine (#1) 2024 , 01/16/2023, 01/20/2022, Additional history exists Colorectal Cancer Screening: FIT-DNA (Cologuard) 02/23/2026 02/23/2023 [...] LAB CHEMISTRY METHOD 09/22/2024 6:27 PM EDT [facility] Potassium 3.6 3.5 - 5.5 mmol/L LAB CHEMISTRY METHOD 09/22/2024 6:27 PM EDT [facility] Chloride 109 96 - 110 mmol/L LAB CHEMISTRY METHOD 09/22/2024 6:27 PM EDT [facility] CO2 24 21 - 32 mmol/L LAB CHEMISTRY METHOD 09/22/2024 6:27 PM EDT [facility] Anion Gap 6 3 - 11 LAB CHEMISTRY METHOD 09/22/2024 6:27 PM EDT [facility] Blood Venous blood specimen / Unknown Venipuncture / Unknown 09/22/2024 1:48 PM EDT 09/22/2024 1:48 PM EDT us Aleksandar Heaton MD LAB BLOOD ORDERABLES Final R esult [facility] [address] [place] [address], * XR UGI w Single Contrast (09/20/2024 [...] Signed Date: 09/20/2024 09:47 ET Workstation ID: [id number] Transcribed By: Self Edit Transcribed Date: 09/20/2024 09:21 ET Resident/PA/DISTRIBUTOR CLEANER: Francis Gordilloalhaji Spencer 09/20/2024 9:47 AM EDT FINDINGS: Single contrast UGI performed. COMPARISON: Upper GI June 05, 2022 HISTORY: Patient is a 54-year-old female with history of gastric bypass in 2020, worsening GERD. MANUFACTURER'S SERVICE REPRESENTATIVE radiographs: Railroad Crossing Protection Maintainer AP radiograph of the abdomen obtained. Bowel [...] 54-year-old female with history of gastric bypass [id number], worsening GERD. MANUFACTURER'S SERVICE REPRESENTATIVE radiographs: Railroad Crossing Protection Maintainer AP radiograph of the abdomen obtained. Bowel [...] Signed Date: 09/20/2024 09:47 ET Workstation ID: [id number] Transcribed By: Self Edit Transcribed Date: 09/20/2024 09:21 ET Resident/PA/DISTRIBUTOR CLEANER: Roseline Gordillo us Aleksandar Heaton MD IMG [...] Signed Date: 08/24/2024 17:24 ET Workstation ID: [id number] Transcribed By: Self Edit Transcribed Date: 08/24/2024 [...] Signed Date: 08/24/2024 17:24 ET Workstation ID: [id number] Transcribed By: Self Edit Transcribed Date: 08/24/2024 17:19 ET Luis Enrique Orellana MD [facility] US PROCEDURES Final Result * (ABNORMAL) Lipid panel with reflex to direct LDL (06/17/2024 10:12 AM EDT) Cholesterol 230(H) 0 - 200 mg/dL LAB CHEMISTRY METHOD 06/17/2024 2:13 PM EDT [facility] Triglycerides 155(H) 0 - 150 mg/dL LAB CHEMISTRY METHOD 06/17/2024 2:13 PM EDT [facility] HDL 48 >=40 mg/dL LAB CHEMISTRY METHOD 06/17/2024 2:13 PM EDT [facility] LDL Calculated 151(H) 0 - 100 mg/dL LAB CHEMISTRY METHOD 06/17/2024 2:13 PM EDT [facility] VLDL Cholesterol Cristofer 31 mg/dL LAB CHEMISTRY METHOD 06/17/2024 2:13 PM EDT [facility] Non HDL Chol. (LDL+VLDL) 182(H) <145 mg/dL LAB CHEMISTRY METHOD 06/17/2024 2:13 PM EDT [facility] Chol/HDL Ratio 4.8(H) 0.0 - 4.4 LAB CHEMISTRY METHOD 06/17/2024 2:13 PM EDT [facility] Blood Venous blood specimen / Unknown Venipuncture / Unknown 06/17/2024 10:12 AM EDT 06/17/2024 11:07 AM EDT Aleksandar Heaton MD LAB BLOOD ORDERABLES Final R esult [facility] [address] [place] [address], * Hepatitis C Screening (09/22/2023) [facility] Hepatitis C Screening abstracted Historical Provider HEALTH MAINTENANCE Final Result from Last 3 Months or Most Recently Relevant to Health Maintenance Insurance MEDICA[place] - [place] Care Teams Demonstrator Sewing Techniques Relationship Specialty Start Date End Date Jackie Abdi MD [address] [place] [id number] PCP - General 10/20/16
--- OUTSIDE RECORDS SUMMARY | 2024-10-18 15:29 | XMS_ITS | Clinical Summary ---
Author Organization [facility] Address [address] [place] [address] Care Team Providers Care Pulp Screen Operator Name Role Phone Jackie Abdi MD Primary Care Provider [phone] Allergies No known active allergies Medications omeprazole [...] Insurance Medicaid [place] Care Teams Pulp Screen Operator Relationship Specialty Start Date End Date Jackie Abdi MD [address] [place] [id number] [facility] - General 04/09/20
== END 2024-10-18 15:33 | disposition home or self-care (01) ==
LOC: HO.HOS 14:14
PROVIDERS: PCP Student in an Organized Health Care Education/Training Program; Visit Provider Physician Assistant
DX: Z98.890 Other specified postprocedural states (principal)
CPT/HCPCS: 99024

== ENCOUNTER → 2024-10-18 14:13 | Outpatient (BNVA) | payer MEDICAID, SELFPAY | PROVIDERS: PCP Student in an Organized Health Care Education/Training Program; Visit Provider Physician Assistant | DX: M25.511 Pain in right shoulder (principal); Z98.890 Other specified postprocedural states | CPT/HCPCS: 99212 ==

== ENCOUNTER 2024-11-14 13:53 | Outpatient (AMB) | payer MEDICAID, SELFPAY ==
[2024-11-14 13:57] VITALS: BMI 26.5
--- NOTE | 2024-11-14 13:57 | MHC.OFFVIS ---
Vital Signs 11/14/24 13:57 Height 4 ft 11 in Weight 131 lb BMI 26.5 Intake Visit Reasons: PO-RT RTC Repair 10/12/24 NE Intake Note: Sade is a 54 year old female who presents today for a post op appointment s/p Right RTC repair. Supra and subscap 10/12/24 NE. Patient reports that she is doing well, she is having some pain that is improving over time. She does have a shooting pain that starts in the anterior aspect of the shoulder and radiates down to the palm of the hand Allergies sulfamethoxazole (From Bactrim) Allergy (Intermediate, Verified 10/18/24 14:43) Facial Swelling trimethoprim (From Bactrim) Allergy (Intermediate, Verified 10/18/24 14:43) Facial Swelling HPI HPI PO-RT RTC Repair 10/12/24 NE: Details: Four weeks status post right rotator cuff repair . She is doing okay. Pain is minimal. Has just started PT. [facility] Medical History VSD (ventricular septal defect) Infection associated with internal right knee prosthesis Cellulitis History of pulmonary embolism History of DVT (deep vein thrombosis) Post-traumatic osteoarthritis of right knee Sleep apnea High cholesterol Asthma HTN (hypertension) Surgical History Status post total knee replacement, right History of bunionectomy of both great toes Hx of gastric bypass History of laparoscopic cholecystectomy History of H/O right knee surgery Family History Father Heart problem Mother Heart problem Social History Household Members: Spouse Housing: House Are you a primary animal care service worker to a significant other at home: No Do you presently have visiting nurse or other home services: No Alcohol intake: never Patient Tobacco Use Status: Never used Tobacco service: No Current occupational status: unemployed and disabled Current occupation: rt handed. Physical Exam Vital Signs: BMI result Body Mass Index 26.5 Extrem Other: Incision clean dry and intact Passive abduction to 70 degrees External rotation to 0 Assessment & Plan Assessment & Plan (1) S/P right rotator cuff repair: Code(s): Z98.890 - Other specified postprocedural states Category: Surgical Plan: Status post rotator cuff repair. She feels well. Continue PT. Follow up 2 months. Coding Level of Care Code Global (95185) Diagnoses S/P right rotator cuff repair Z98.890
--- OUTSIDE RECORDS SUMMARY | 2024-11-14 14:43 | XMS_ITS | Clinical Summary ---
Author Organization [facility] Address [address] [place] [address] Phone Care Team Providers Care Environmental Engineer Name Role Phone Jackie Abdi MD Primary Care Provider [phone] Allergies Active Allergy Reactions Criticality Noted Date [...] mouth 1 (one) time each day. 5 026 Active phentermine 15 mg capsuleIndicatio ns:Class 1 obesity due to excess calories with body mass index (BMI) of 30.0 to 30.9 in adult, unspecified whether serious comorbidity present Take 1 capsule (15 mg total) by mouth 1 (one) time each day before breakfast. Max Daily Amount: 15 mg 30 each 5 025 Active topiramate (TOPAMAX) 50 mg tabletIndication s:Class 1 obesity due to excess calories with body mass index (BMI) of 30.0 to 30.9 in adult, unspecified whether serious comorbidity present Take 1 tablet (50 mg total) by mouth at bedtime. 30 tablet 3 5 Active polyethylene glycol (MIRALAX) 17 gram packetIndication s:Chronic constipation Take 17 g by mouth 1 (one) time each day. 1530 g 5 025 zolpidem CR (Ambien CR) 6.25 mg CR tabletIndication s:Other insomnia Take 1 tablet (6.25 mg total) by mouth at bedtime as needed for sleep. Do not crush, chew, or split. Max Daily Amount: 6.25 mg 30 tablet 5 025 Active Problems Problem Noted Date Diagnosed Date Bile-induced gastritis 03/08/2024 Nausea and vomiting 03/08/2024 Overweight (BMI 25.0-29.9) 04/22/2021 Eating disorder 10/11/2020 Hypercholesteremia 10/11/2020 Obstructive sleep apnea 10/11/2020 Overview (03/08/2024): CPAP Gastroesophageal reflux dise ase with esophagitis without hemorrhage 05/03/2020 Encounters Date Type Department Care Team Description 09/22/2024 1:45 PM EDT Office Visit Bariatric Surgery [facility] [address] [facility] [address] [place] [address] Aleksandar Heaton MD Hyperchloremia (Primary Dx); Over weight 09/20/2024 7:44 AM EDT - 09/20/2024 11:59 PM EDT Hospital Encounter [facility] X[facility] [address] [place] [address] Gastroesophageal reflux disease, unspecified whether esophagitis present Discharge Disposition: Home or Self Care 08/29/[address] [phone] Luis Enrique Orellana MD PROVIDER CALL BACK 08/24/2024 3:06 PM EDT - 08/24/2024 11:59 PM EDT Hospital Encounter Radiology Department - [address] [phone] Multiple thyroid nodules Discharge Disposition: Home or Self Care 08/17/2024 1:30 PM EDT Consult Endocrinology - [address] [phone] Luis Enrique Orellana MD Multiple thyroid nodules (Primary Dx) from Last 3 Months Immunizations Name Administration Dates Next Due Tdap Tetanus diptheria acell ular pertussis (Boostrix; Adacel) 7yo and older 01/19/2012 Surgical History Surgery Date Site/Laterality Comments OTHER SURGICAL HISTORY PROCEDURE: [place] ARTHRS AID TIBIAL FRACTURE PROXIMAL UNICONDYLAR CHOLECYSTECTOMY PROCEDURE: [place] LAPAROSCOPY SURG CHOLECYSTECTOMY BUNIONECTOMY PROCEDURE: BUNION SURGERY, SIMPLE REMOVAL SECTION PROCEDURE: [place] DELIVERY ONLY Medical History Medical History Date Comments Hypercholesteremia DX:Hyperchole steremia Class 2 severe obesity due t o excess calories with serious comorbidity and body mass index (BMI) of 35.0 to 35.9 in adult ([facility] V24, [facility] V28) 05/03/2020 DX:Class 2 severe obe sity due to excess calories with serious comorbidity and body mass index (BMI) of 35.0 to 35.9 in adult ([facility]) Gastroesophageal reflux dise ase with [...] Care Team (Late st Contact Info) Description 02/07/2025 1:45 PM EST Office Visit Bariatric Surgery - [place] [address] [phone] Aleksandar Heaton MD [facility] [address] [place] [address] Health Maintenance Due Date Last Done Comments [...] LAB CHEMISTRY METHOD 09/22/2024 6:27 PM EDT [facility] Potassium 3.6 3.5 - 5.5 mmol/L LAB CHEMISTRY METHOD 09/22/2024 6:27 PM EDT [facility] Chloride 109 96 - 110 mmol/L LAB CHEMISTRY METHOD 09/22/2024 6:27 PM EDT [facility] CO2 24 21 - 32 mmol/L LAB CHEMISTRY METHOD 09/22/2024 6:27 PM EDT [facility] Anion Gap 6 3 - 11 LAB CHEMISTRY METHOD 09/22/2024 6:27 PM EDT [facility] Blood Venous blood specimen / Unknown Venipuncture / Unknown 09/22/2024 1:48 PM EDT 09/22/2024 1:48 PM EDT us Aleksandar Heaton MD LAB BLOOD ORDERABLES Final R esult [facility] [address] [place] [address], * XR UGI w Single Contrast (09/20/2024 [...] Signed Date: 09/20/2024 09:47 ET Workstation ID: [id number] Transcribed By: Self Edit Transcribed Date: 09/20/2024 09:21 ET Resident/PA/ELECTROPLATER HELPER: Roseline Gordillo Narrative 09/20/2024 9:47 AM EDT FINDINGS: Single contrast UGI performed. COMPARISON: Upper GI June 05, 2022 HISTORY: Patient is a 54-year-old female with history of gastric bypass in 2020, worsening GERD. FIELD DIRECTOR radiographs: Complaint Manager AP radiograph of the abdomen obtained. Bowel [...] 54-year-old female with history of gastric bypass [id number], worsening GERD. FIELD DIRECTOR radiographs: Complaint Manager AP radiograph of the abdomen obtained. Bowel [...] Signed Date: 09/20/2024 09:47 ET Workstation ID: [id number] Transcribed By: Self Edit Transcribed Date: 09/20/2024 09:21 ET Resident/PA/ELECTROPLATER HELPER: Roseline Gordillo us Aleksandar Heaton MD IMG [...] Signed Date: 08/24/2024 17:24 ET Workstation ID: [id number] Transcribed By: Self Edit Transcribed Date: 08/24/2024 [...] Signed Date: 08/24/2024 17:24 ET Workstation ID: [id number] Transcribed By: Self Edit Transcribed Date: 08/24/2024 17:19 ET us Luis Enrique Orellana MD [facility] US PROCEDURES Final Result * (ABNORMAL) Lipid panel with reflex to direct LDL (06/17/2024 10:12 AM EDT) Cholesterol 230(H) 0 - 200 mg/dL LAB CHEMISTRY METHOD 06/17/2024 2:13 PM EDT [facility] Triglycerides 155(H) 0 - 150 mg/dL LAB CHEMISTRY METHOD 06/17/2024 2:13 PM EDT [facility] HDL 48 >=40 mg/dL LAB CHEMISTRY METHOD 06/17/2024 2:13 PM EDT [facility] LDL Calculated 151(H) 0 - 100 mg/dL LAB CHEMISTRY METHOD 06/17/2024 2:13 PM EDT [facility] VLDL Cholesterol Cristofer 31 mg/dL LAB CHEMISTRY METHOD 06/17/2024 2:13 PM EDT [facility] Non HDL Chol. (LDL+VLDL) 182(H) <145 mg/dL LAB CHEMISTRY METHOD 06/17/2024 2:13 PM EDT [facility] Chol/HDL Ratio 4.8(H) 0.0 - 4.4 LAB CHEMISTRY METHOD 06/17/2024 2:13 PM EDT [facility] Blood Venous blood specimen / Unknown Venipuncture / Unknown 06/17/2024 10:12 AM EDT 06/17/2024 11:07 AM EDT Aleksandar Heaton MD LAB BLOOD ORDERABLES Final R esult [facility] [address] [place] [address], * Hepatitis C Screening (09/22/2023) Pathologist [facility] Hepatitis C Screening abstracted Historical Provider HEALTH MAINTENANCE Final Result from Last 3 Months or Most Recently Relevant to Health Maintenance [place] Care Teams Environmental Engineer Relationship Specialty Start Date End Date Jackie Abdi MD [address] [place] [phone] PCP - General 10/20/16
--- OUTSIDE RECORDS SUMMARY | 2024-11-14 14:43 | XMS_ITS | Clinical Summary ---
Author Organization [facility] Facility Address [address] [place] [address] Care Team Providers Care Industrial Relations Counselor Name Role Phone Jackie Abdi MD Primary Care Provider [phone] Allergies No known active allergies Medications omeprazole [...] Insurance Medicaid [place] Medicaid [place] Care Teams Industrial Relations Counselor Relationship Specialty Start Date End Date Jackie Abdi MD [address] [place] [id number] [facility] - General 04/09/20
--- OUTSIDE RECORDS SUMMARY | 2024-11-14 14:43 | XMS_ITS | Encounter Summary ---
Author Organization [employer] Address [address] [facility] [address] [place] [address] Care Team Providers Care Bods Developer Name Role Phone Jackie Abdi MD Primary Care Provider [phone] Reason for Visit * Reason Comments Med Refill Encounter Details Date Type Department Care Team ([facility] st Contact Info) Description 11/08/2024 Refill [facility] [address] [place] [address] Jackie Abdi MD [address] [place] [address] Social History Tobacco Use Types Packs/Day Years [...] on file documented as of this encounter Visit Diagnoses Not on filedocumented in this encounter Additional Health Concerns Assessment Noted Time PHQ-9 Depression Total Score: 14 025 11:23 AM EST documented as of this encounter Care Teams Bods Developer Relationship Specialty Start Date End Date Jackie Abdi MD [address] [place] [phone] PCP - General Family Medicine 04/29/13 documented as of this encounter
== END 2024-11-14 14:15 | disposition home or self-care (01) ==
LOC: HO.HOS 13:54
PROVIDERS: PCP Student in an Organized Health Care Education/Training Program; Visit Provider Orthopaedic Surgery
DX: Z98.890 Other specified postprocedural states (principal)
CPT/HCPCS: 99024

== ENCOUNTER → 2024-11-14 13:53 | Outpatient (BNVA) | payer MEDICAID, SELFPAY | PROVIDERS: PCP Student in an Organized Health Care Education/Training Program; Visit Provider Orthopaedic Surgery | DX: Z98.890 Other specified postprocedural states (principal) | CPT/HCPCS: 99212 ==

== ENCOUNTER 2024-12-13 14:14 | Outpatient (REF) | payer MEDICAID, SELFPAY ==
--- NOTE | ~2024-12-13 | XR_ITS ---
EXAMINATION: XR CERVICAL SPINE CLINICAL INFORMATION: Neck pain x1 week, popping and clicking, dizziness. COMPARISON: None available. TECHNIQUE: 5 views of the cervical spine were obtained, including bilateral oblique views. FINDINGS: No significant scoliosis. There is a minimal reversal of the normal lordosis centered at C5. There is no definite fracture, compression deformity, or suspicious bone lesion. There is a 3 mm degenerative appearing anterolisthesis of C4 on C5. Alignment is otherwise anatomic. The C1-2 articulation and craniocervical junction are intact and aligned. There is normal facet alignment bilaterally. There are multilevel mild to moderate degenerative facet changes. Mild disc degeneration at C4-5, and moderate changes at C5-6 and C6-7. Oblique views demonstrate moderate bony left neural foraminal narrowing at C4-5. There is no significant right neural foraminal narrowing. No prevertebral soft tissue abnormalities. Imaged lung apices clear. XR/XR cervical spine 4V IMPRESSION: 1. No acute findings of the cervical spine. 2. Mild to moderate degenerative spondylosis as detailed. Electronically signed by: Lee Rankin MD 12/13/2024 04:28 PM EDT
--- OUTSIDE RECORDS SUMMARY | 2024-12-13 13:20 | XMS_ITS | Encounter Summary ---
Author Organization [email or web address] Address [address] [place] [address] Care Team Providers Care Billing And Accounting Staff Assistant Name Role Phone Jackie Abdi MD Primary Care Provider [phone] Reason for Visit * Reason Comments Headache Dizziness Encounter Details Date Type Department Care Team (Latest Contact Info) Description 12/13/2024 1:20 PM EDT Office Visit [facility] [address] [place] [address] [phone] Stephenie Mcdaniels MD [address] [place] [address] Unintentional weight loss (Primary Dx); Acute non intractable tension-type headache; Diarrhea, unspecified type; Neck pain Social History Tobacco Use Types Packs/Day Years [...] AM EDT documented as of this encounter Last Filed Vital Signs Vital Sign Reading Time Taken Comments Blood Pressure 111/63 12/13/2024 1:07 PM EDT Pulse 83 12/13/2024 1:07 PM EDT Temperature 36.6 C (97.9 F) 12/13/2024 1:07 PM EDT Respiratory Rate 16 12/13/2024 1:07 PM EDT Oxygen Saturation 98% 12/13/2024 1:07 PM EDT Inhaled Oxygen Concentration - - Weight 58.2 kg (128 lb 3.2 oz) 12/13/2024 1:07 P M EDT Height - - Body Mass Index 25.89 09/23/2024 10:35 AM EDT documented in this encounter Progress Notes * Stephenie Chappell MD - 12/13/2024 1:20 PM EDT SUBJECTIVE: Sade Fraga is a 54 y.o. year old female who presents for acute visit . Acute Concerns: Patient reports she has been noticing for the past few months she has been losing weight without any intention of it, she also reports she feels weak and fatigued. Patient admits her anxiety has not been well lately Patient reports for the past 3 weeks she has been having a headache, not similar to her migraine headaches different, she reports she hears a crack in her neck and when she looks to the right side there is cracking and pain with dizziness Patient reports that for the past 3 to 4 days she has been having diarrhea watery no bloody and also vomiting again no blood she does not identify any triggering like any special food she reports that she is only 1 has that has it no sick contacts no recent travel Social History Social History Narrative Not on file Problem List[1] Ventricular septal defect Low back pain Straining during bowel movements Stage 3 chronic kidney disease (CMS/HCC) Right upper quadrant abdominal pain Pain in unspecified knee Open fracture of tibial plateau Myofascial pain Knee pain Intracranial subdural hematoma (CMS/HCC) Intermittent asthma Idiopathic edema Hypokalemia History of cholecystectomy Gastroesophageal reflux disease Edema of lower extremity Chronic pelvic pain in female Acute renal failure syndrome (CMS/HCC) Abnormal liver enzymes Abdominal bloating Mid-back pain, acute Dysuria Vertigo Straining with stools Chronic RUQ pain Valgus deformity, not elsewhere classified, left knee Status post total knee replacement, 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 Negative for activity change, chills, diaphoresis and fever. HENT: Negative. Respiratory: Negative. Cardiovascular: Negative. Gastrointestinal: Positive for diarrhea, nausea and vomiting. Negative for abdominal distention, abdominal pain, anal bleeding, blood in stool, constipation and rectal pain. Neurological: Positive for dizziness and headaches. Negative for tremors, seizures, syncope, facialasymmetry, speech difficulty, weakness, light- headedness and numbness. OBJECTIVE: Vitals: 12/13/24 1307 BP: 111/63 BP Location: Left arm Patient Position: Sitting BP Cuff Size: Adult Pulse: 83 Resp: 16 Temp: 97.9 ??F (36.6 ??C) TempSrc: Temporal SpO2: 98% Weight: 128 lb 3.2 oz (58.2 kg) Physical Exam Cardiovascular: Rate and Rhythm: Normal rate and regular rhythm. Pulmonary: Effort: Pulmonary effort is normal. Breath sounds: Normal breath sounds. Abdominal: General: Abdomen is flat. Palpations: Abdomen is soft. Musculoskeletal: Right lower leg: No edema. Left lower leg: No edema. Neurological: General: No focal deficit present. Mental Status: She is alert and oriented to person, place, and time. Mental status is at baseline. Follow Up: No follow-ups on file. Medications Ordered Prior to Encounter[3] Problem List Items Addressed This Visit Unintentional weight loss - Primary Blood work ordered today patient will be contacted with results Relevant Orders CBC auto differential Comprehensive Metabolic Panel Hemoglobin A1c Hepatitis Panel, General TSH with Reflex to Free T4 HIV-1/2 Antigen and Antibodies, Fourth Generation, with Reflexes ROSSY Screen,IFA, with Reflex to Titer and Pattern Acute tension-type headache She may take acetaminophen as needed Diarrhea I will test today for patient reports diarrhea nausea vomiting are much better now she did not haveany vomiting today just a small amount of diarrhea Neck pain X-ray ordered patient will be contacted with results Relevant Orders XR CERVICAL SPINE 4V [1] Patient Active Problem List Diagnosis Ventricular septal defect Low back pain Straining during bowel movements Stage 3 chronic kidney disease (CMS/HCC) Right upper quadrant abdominal pain Pain in unspecified knee Open fracture of tibial plateau Myofascial pain Knee pain Intracranial subdural hematoma (CMS/HCC) Intermittent asthma Idiopathic edema Hypokalemia History of cholecystectomy Gastroesophageal reflux disease Edema of lower extremity Chronic pelvic pain in female Acute renal failure syndrome (CMS/HCC) Abnormal liver enzymes Abdominal bloating Mid-back pain, acute Dysuria Vertigo Straining with stools Chronic RUQ pain Valgus deformity, not elsewhere classified, left knee Status post total knee replacement, 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 amoxicillin (Amoxil) 500 MG capsule Take 1 tab po bid for 10 days 20 capsule 0 azelastine (Astelin) 0.1 % nasal spray USE 1 SPRAY IN EACH NOSTRIL TWICE DAILY 30 mL 11 celecoxib (CeleBREX) 200 MG capsule TAKE 1 CAPSULE BY MOUTH TWICE DAILY 40 capsule 0 cholecalciferol (Vitamin D-3) 1.25 MG (54810 UT) capsule Take 1 capsule by mouth. cyclobenzaprine (Flexeril) 10 MG tablet TAKE 1 TABLET(10 MG) BY MOUTH AT BEDTIME 30 tablet 0 dicyclomine (Bentyl) 10 MG capsule Take 1 capsule (10 mg) by mouth 3 times daily. 90 capsule 3 Enoxaparin Sodium 40 MG/0.4ML solution prefilled syringe INJECT CONTENTS OF 1 SYRINGE UNDER THE SKIN TWICE DAILY FOR 2 DAYS Estrogens Conjugated (Premarin) 0.625 MG/GM cream Insert 0.625 mg into the vagina 2 (two) times a week. 30 g 3 FLUoxetine (PROzac) 10 MG capsule TAKE 1 CAPSULE(10 MG) BY MOUTH DAILY 30 capsule 11 hydrOXYzine pamoate (Vistaril) 50 MG capsule TAKE 1 CAPSULE BY MOUTH TWICE DAILY 60 capsule 3 levothyroxine (Synthroid) 25 MCG tablet Take 1 tablet (25 mcg) by mouth before breakfast. 30 [id number] loratadine (Claritin) 10 MG tablet Take 1 tablet (10 mg) by mouth Once per day. 30 tablet 11 meclizine (Antivert) 25 MG tablet TAKE 1 TABLET BY MOUTH EVERY MORNING, 1 TABLET AT NOON, AND 1 TABLET EVERY NIGHT AT BEDTIME NEEDED FOR DIZZINESS 30 tablet 0 Multiple Vitamin (Multi-Vitamin) tablet Take 1 tablet by mouth at bed time. nortriptyline (Pamelor) 25 MG capsule Take 25 mg by mouth in the morning. omeprazole (PriLOSEC) [address] capsule Take 1 capsule (40 mg) by mouth before breakfast. Do not crush or chew. 90 capsule 3 SUMAtriptan (Imitrex) 50 MG tablet TAKE 1 TABLET BY MOUTH EVERY DAY FOR 9 DAYS Symbicort 80-4.5 MCG/ACT inhaler INHALE 2 PUFFS BY MOUTH TWICE DAILY 10.2 g 11 triamcinolone (Kenalog) 0.5 % ointment APPLY TOPICALLY TO THE AFFECTED AREA TWICE DAILY verapamil (Calan) 40 MG tablet TAKE 1 TABLET BY MOUTH TWICE DAILY 180 tablet 0 No current facility-administered medications on file prior to visit. documented in this encounter Miscellaneous Notes * Assessment & Plan Note - Stephenie Chappell MD - 12/13/2024 1:45 PM EDT Associated Problem(s): Acute tension-type headache She may take acetaminophen as needed * Assessment & Plan Note - Stephenie Chappell MD - 12/13/2024 1:45 PM EDT Associated Problem(s): Neck pain X-ray ordered patient will be contacted with results * Assessment & Plan Note - Stephenie Chappell MD - 12/13/2024 1:44 PM EDT Associated Problem(s): Diarrhea I will test today for patient reports diarrhea nausea vomiting are much better now she did not haveany vomiting today just a small amount of diarrhea * Assessment & Plan Note - Stephenie Chappell MD - 12/13/2024 1:44 PM EDT Associated Problem(s): Unintentional weight loss Blood work ordered today patient will be contacted with results * Addendum Note - Adolfo Torres MA - 12/13/2024 1:20 PM EDTAddended by: ADOLFO TORRES on: 12/13/2024 01:51 PM Modules accepted: Orders documented in this encounter Plan of Treatment Scheduled Orders Name Type Priority Associated Diagnoses Orde r Schedule Hepatitis Panel, General Lab Routine Unintentional weight loss Expected: 12/13/2024, Expires: 12/13/2025 HIV-1/2 Antigen and Antibodies, Fourth Generation, with Reflexes Lab Routine Unintentional weight loss Expected: 12/13/2024 (Approximate), Expires: 12/13/2025 ROSSY Screen,IFA, with Reflex to Titer and Pattern Lab Routine Unintentional weight loss Expected: 12/13/2024 (Approximate), Expires: 12/13/2025 documented as of this encounter Procedures Procedure Name Priority Date/Time Associated Diagnosis Comments XR CERVICAL SPINE 4V Routine 12/13/2024 4:05 PM EDT Neck pain TSH W/REFLEX TO FT4 Routine 12/13/2024 2 :34 PM EDT Unintentional weight loss CBC WITH AUTO DIFFERENTIAL Routine 12/13/2024 2:34 PM EDT Unintentional weight loss HEMOGLOBIN A1C Routine 12/13/2024 2:34 PM EDT Unintentional weight loss COMPREHENSIVE METABOLIC PANEL Routine 12/13/2024 2:34 PM EDT Unintentional weight loss POCT INFLUENZA B (ID NOW RAPID MOLECULAR) Routine 12/13/2024 1:51 PM EDT Diarrhea, unspecified type POCT INFLUENZA A (ID NOW RAPID MOLECULAR) Routine 12/13/2024 1:51 PM EDT Diarrhea, unspecified type POCT RAPID COVID ANTIGEN Routine 12/13/2024 1:51 PM EDT Diarrhea, unspecified type documented in this encounter Results * XR CERVICAL SPINE 4V (12/13/2024 4:05 PM EDT) Anatomical Region Laterality Modality Abdomen Radiographic Janice ging 12/13/2024 4:05 PM EDT Narrative 12/13/2024 4:31 PM EDT [address] [address] XRay Report Signed Patient: Sade Fraga MR#: [id number] 4 : 1970 Acct:[id number] Age/Sex: 54 / F ADM Date: 12/13/24 [facility] Attending Dr: Stephenie Chappell MD Ordering Physician: Stephenie Mcdaniels MD Date of Service: 12/13/24 Procedure(s): XR cervical spine 4V Accession Number(s): [id number] cc: Stephenie Mcdaniels MD Reason for Exam: pain EXAMINATION: XR CERVICAL SPINE CLINICAL INFORMATION: Neck pain x1 week, popping and clicking, dizziness. COMPARISON: None available. TECHNIQUE: 5 views of the cervical spine were obtained, including bilateral oblique views. FINDINGS: No significant scoliosis. There is a minimal reversal of the normal lordosis centered at C5. There is no definite fracture, compression deformity, or suspicious bone lesion. There is a 3 mm degenerative appearing anterolisthesis of C4 on C5. Alignment is otherwise anatomic. The C1-2 articulation and craniocervical junction are intact and aligned. There is normal facet alignment bilaterally. There are multilevel mild to moderate degenerative facet changes. Mild disc degeneration at C4-5, and moderate changes at C5-6 and C6-7. Oblique views demonstrate moderate bony left neural foraminal narrowing at C4-5. There is no significant right neural foraminal narrowing. No prevertebral soft tissue abnormalities. Imaged lung apices clear. XR/XR cervical spine 4V IMPRESSION: 1. No acute findings of the cervical spine. 2. Mild to moderate degenerative spondylosis as detailed. Electronically signed by: Lee Rankin MD 12/13/2024 04:28 PM EDT Dictated By: Lee Rankin MD Signed By: <Electronically signed by Lee Rankin MD in OV> 12/13/24 1628 DD/ 1605 TD/TT: 12/13/24 1610 Health Care Consultant: Procedure Note Donotuseinterpreter, Image - 12/13/[address] [address] XRay Report Signed Patient: Gray Fraga#: [id number] 4 : 1970Acct:[id number] Age/Sex: 54 / FADM Date: 12/13/24 Loc: [facility] Attending Dr: Stephenie Chappell MD Ordering Physician: Stephenie Mcdaniels MD Date of Service: 12/13/24 Procedure(s): XR cervical spine 4V Accession Number(s): [id number] cc: Stephenie Mcdaniels MD Reason for Exam: pain EXAMINATION: XR CERVICAL SPINE CLINICAL INFORMATION: Neck pain x1 week, popping and clicking, dizziness. COMPARISON: None available. TECHNIQUE: 5 views of the cervical spine were obtained, including bilateral oblique views. FINDINGS: No significant scoliosis. There is a minimal reversal of the normal lordosis centered at C5. There is no definite fracture, compression deformity, or suspicious bone lesion. There is a 3 mm degenerative appearing anterolisthesis of C4 on C5. Alignment is otherwise anatomic. The C1-2 articulation and craniocervical junction are intact and aligned. There is normal facet alignment bilaterally. There are multilevel mild to moderate degenerative facet changes. Mild disc degeneration at C4-5, and moderate changes at C5-6 and C6-7. Oblique views demonstrate moderate bony left neural foraminal narrowing at C4-5. There is no significant right neural foraminal narrowing. No prevertebral soft tissue abnormalities. Imaged lung apices clear. XR/XR cervical spine 4V IMPRESSION: 1. No acute findings of the cervical spine. 2. Mild to moderate degenerative spondylosis as detailed. Electronically signed by: Lee Rankin MD 12/13/2024 04:28 PM EDT Dictated By: Lee Rankin MD Signed By: <Electronically signed by Lee Rankin MD in OV> 12/13/24 1628 DD/ 1605 TD/TT: 12/13/24 1610 Health Care Consultant: us Stephenie Chappell MD IMG XR PROCEDURES Vinny aaliyah Result - Final * TSH with Reflex to Free T4 (12/13/2024 2:34 PM EDT) TSH reflex Free T4 1.51 0.32 - 4.0 uIU/mL [facility] Blood Venous blood specimen / Unknown 12/13/2024 2:34 PM EDT 12/13/2024 4:04 PM EDT us Stephenie Chappell MD LAB BLOOD ORDERABLES Final Result Performing Organization Address City/[facility]/ZIP Co de Phone Number [facility] [address] [place] [address] [phone] * Hemoglobin A1c (12/13/2024 2:34 PM EDT) Hemoglobin A1c 5.5 <6.0 % [facility] Comment:Hemoglobin A1C Refer ence Range Adults: 4.8 - 6.0 % Non diabetic: < 6.0 % Goal: < 7.0 %Additional Action Suggested: > 8.0 %Note: Hemoglobin A1c results are invalid for patients with abnormal amounts of HbF. Blood transfusions may impact the HbA1c concentration in the patient sample. Estimated Average Glucose 111 mg/dL [facility] Comment:eAG = Estimated ave rage glucose which is %A1C expressed asaverage glucose, using the formula of the I6B-XyooarzNgntaiu Glucose study (ADAG), Diabetes Care, Vol.31,#8,Oct. 2007 Blood Venous blood specimen / Unknown 12/13/2024 2:34 PM EDT 12/13/2024 4:13 PM EDT us Stephenie Chappell MD LAB BLOOD ORDERABLES Final Result Performing Organization Address [facility]/ZIP Co de Phone Number [facility] [address] [place] [phone] * (ABNORMAL) Comprehensive Metabolic Panel (12/13/2024 2:34 PM EDT) Sodium 141 135 - 145 mmol/L [facility] Potassium 4.6 3.3 - 5.1 mmol/L [facility] Comment:Slight Hemolysis.Int erpret result with caution. Chloride 109(H) 96 - 108 mmol/L [facility] Carbon Dioxide 25 22 - 29 mmol/L [facility] Anion Gap 12 12 - 20 [facility] Urea Nitrogen (BUN) 13 9 - 16 mg/dL [facility] Creatinine, Serum 1.02 0.5 - 1.4 mg/dL [facility] Estimated Glomerular Filt Rate 57 [facility] Comment:Chronic Kidney Disea se: Estimated GFR < 60 mL/min/1.09h4Ozskls Kidney Disease: Estimated GFR < 15 mL/min/1.73m2 Glucose 84 60 - 115 mg/dL [facility] Calcium 9.0 8.4 - 10.2 mg/dL [facility] Bilirubin, Total 0.2 0.0 - 1.0 mg/dL [facility] Aspartate Amino Transferase 25 5 - 31 U/L [facility] Comment:Slight Hemolysis.Int erpret result with caution. Alanine Aminotransferase 11 0 - 31 U/L [facility] Total Protein 7.6 6.5 - 8.0 g/dL [facility] Albumin Level 4.3 3.5 - 5.0 g/dL [facility] Alkaline Phosphatase 111 39 - 117 U/L [facility] Blood Venous blood specimen / Unknown 12/13/2024 2:34 PM EDT 12/13/2024 4:04 PM EDT us Stephenie Chappell MD LAB BLOOD ORDERABLES Final Result [facility] [address] [place] [phone] * (ABNORMAL) CBC auto differential (12/13/2024 2:34 PM EDT) White Blood Count 6.0 4.8 - 10.8 X10*3/uL [facility] Red Blood Count 4.58 4.20 - 5.50 X10*6/uL [facility] Hemoglobin 12.5 12.0 - 16.0 g/dl [facility] Hematocrit 37.9 37.0 - 47.0 % [facility] Mean Corpuscular Volume 82.8 80.0 - 98.0 fL [facility] Mean Corpuscular Hemoglobin 27.3 27.0 - 33.0 pg [facility] Mean Corpuscular HGB Conc 33.0 31.0 - 35.0 g/dl [facility] Red Cell Distribution Width 17.4(H) 11.0 - 16.0 % [facility] Platelet Count 301 160 - 400 X10*3/uL [facility] Mean Platelet Volume 11.1 9.4 - 12.3 fL [facility] Neutrophils Percent Auto 54.0 45 - 73 % [facility] Imm Gran Pct Auto 0.2 0.0 - 0.4 % [facility] Lymphocytes Percent Auto 23.7 20 - 40 % [facility] Monocytes Percent Auto 18.6(H) 2 - 11 % [facility] Eosinophils Percent Auto 3.0 0 - 4 % [facility] Basophils Percent Auto 0.5 0 - 2 % [facility] NRBC Pct Auto 0.0 0.0 - 0.2 /100WBC [facility] Neutrophils Absolute Auto 3.3 2.0 - 8.3 x10*3/uL [facility] Imm Gran Abs Auto 0.01 0.00 - 0.03 X10*3/uL [facility] Lymphocytes Absolute Auto 1.4 1.2 - 4.9 X10*3/uL [facility] Monocytes Absolute Auto 1.1 0.1 - 1.2 X10*3/uL [facility] Eosinophils Absolute Auto 0.2 0.0 - 0.4 X10*3/uL [facility] Basophils Absolute Auto 0.0 0.0 - 0.2 X10*3/uL [facility] NRBC Abs Auto 0.000 0.0 - 0.012 X10*3/uL [facility] Blood Venous blood specimen / Unknown 12/13/2024 2:34 PM EDT 12/13/2024 4:04 PM EDT us Stephenie Chappell MD LAB BLOOD ORDERABLES Final Result [facility] [address] [place] [phone] * Influenza B (ID NOW Rapid Molecular) (12/13/2024 1:51 PM EDT) Pathologist [facility] Influenza B Negative Negative, Indeterminate [facility] Swab 12/13/2024 1:51 PM EDT Stephenie Chappell MD POINT OF CARE TEST EN TER/EDIT ORDERABLES Final Result Performing Organization Address [facility]/ZIP Co de Phone Number [facility] [address] [place] [phone] * Influenza A (ID NOW Rapid Molecular) (12/13/2024 1:51 PM EDT) [facility] Influenza A Negative Negative, Indeterminate [facility] Swab 12/13/2024 1:51 PM EDT Stephenie Chappell MD POINT OF CARE TEST EN TER/EDIT ORDERABLES Final Result Performing Organization Address [facility] Co de Phone Number [facility] [address] [place] [phone] * POCT Rapid COVID Ag (12/13/2024 1:51 PM EDT) [facility] Rapid COVID Ag Negative [facility] Swab 12/13/2024 1:51 PM EDT us Stephenie Chappell MD POINT OF CARE TEST EN TER/EDIT ORDERABLES Final Result Performing Organization Address [facility] Co de Phone Number [facility] [address] [place] [phone] documented in this encounter Visit Diagnoses Diagnosis Unintentional weight loss- Primary Loss of weight Acute non intractable tension-type headache Diarrhea, unspecified type Neck pain Cervicalgia documented in this encounter Additional Health Concerns Assessment Noted Time PHQ-9 Depression Total Score: 14 025 11:23 AM EST documented as of this encounter Care Teams Billing And Accounting Staff Assistant Relationship Specialty Start Date End Date Jackie Abdi MD [address] [place] [phone] PCP - General Family Medicine 04/29/13 documented as of this encounter
[2024-12-13 16:11] LABS: MANUAL DIFF FLAG NO
[2024-12-13 16:12] LABS: Hematocrit 37.9 % (37.0-47.0); Hemoglobin 12.5 g/dl (12.0-16.0); Imm Gran Abs Auto 0.01 X10*3/uL (0.00-0.03); Imm Gran Pct Auto 0.2 % (0.0-0.4); Lymphocytes Absolute Auto 1.4 X10*3/uL (1.2-4.9); Mean Corpuscular HGB Conc 33.0 g/dl (31.0-35.0); Mean Corpuscular Hemoglobin 27.3 pg (27.0-33.0); Mean Corpuscular Volume 82.8 fL (80.0-98.0); NRBC Abs Auto 0.000 X10*3/uL (0.0-0.012); NRBC Pct Auto 0.0 /100WBC (0.0-0.2); Platelet Count 301 X10*3/uL (160-400); Red Blood Count 4.58 X10*6/uL (4.20-5.50); White Blood Count 6.0 X10*3/uL (4.8-10.8)
[2024-12-13 16:33] LABS: Hemoglobin A1C 122.4286 umol/L; Total Hemoglobin (HGBA1C) 3308.8724 umol/L
[2024-12-13 16:58] LABS: Alanine Aminotransferase 11 U/L (0-31); Albumin Level 4.3 g/dL (3.5-5.0); Alkaline Phosphatase 111 U/L (39-117); Anion Gap 12 (12-20); Aspartate Amino Transferase 25 U/L (5-31); Blood Urea Nitrogen 13 mg/dL (9-16); Calcium 9.0 mg/dL (8.4-10.2); Carbon Dioxide 25 mmol/L (22-29); Chloride 109 mmol/L (96-108); Estimated Glomerular Filt Rate 57; Potassium 4.6 mmol/L (3.3-5.1); Sodium 141 mmol/L (135-145); Total Protein 7.6 g/dL (6.5-8.0)
--- OUTSIDE RECORDS SUMMARY | 2024-12-13 18:02 | XMS_ITS | Encounter Summary ---
Author Organization [employer] Address [address] [facility] [address] [place] [address] Care Team Providers Care Sheriff'S Detective Name Role Phone Jackie Abdi MD Primary Care Provider [phone] Reason for Visit * Reason Onset Date Comments Nurse Triage 08/03/2023 Encounter Details Date Type Department Care Team ([facility] st Contact Info) Description 08/03/2023 Telephone [facility] [address] [place] [address] Jackie Abdi MD [address] [place] [address] Nurse Triage Social History Tobacco Use Types [...] point. pt states is currently at the [facility] for evaluation. advised to [...] documented in this encounter Plan of Treatment Not on file documented as of this encounter Visit Diagnoses Not on filedocumented in this encounter Additional Health Concerns Assessment Noted Time PHQ-9 Depression Total Score: 21 023 8:57 AM EDT documented as of this encounter Care Teams Sheriff'S Detective Relationship Specialty Start Date End Date Jackie Abdi MD [address] [place] [address] PCP - General Family Medicine 04/29/13 documented as of this encounter
--- OUTSIDE RECORDS SUMMARY | 2024-12-13 18:02 | XMS_ITS | Encounter Summary ---
Author Organization [employer] Address [address] [place] [address] [address] [place] [address] Care Team Providers Care Production Proofreader Name Role Phone Jackie Abdi MD Primary Care Provider Reason for Visit * Reason Comments Med Refill Encounter Details Date Type Department Care Team ([facility] st Contact Info) Description 09/18/2022 Refill [facility] [address] [place] [address] Ronnell Sanderson MD [address] [place] [address] Mid-back pain, acute Social History Tobacco Use [...] documented as of this encounter Care Teams Production Proofreader Relationship Specialty Start Date End Date Jackie Abdi MD [address] [place] [address] PCP - General Family Medicine 04/29/13 documented as of this encounter
--- OUTSIDE RECORDS SUMMARY | 2024-12-13 18:02 | XMS_ITS | Encounter Summary ---
Author Organization [employer] Address 75 [facility] 7t [place] [address] Care Team Providers Care Tire Spotter Name Role Phone Jackie Abdi MD Primary Care Provider [phone] Encounter Details Date Type Department Care Team (Late st Contact Info) Description 08/25/2024 Orders Only [facility] [address] [place] [address] Provider, MD Sagar Social History Tobacco Use [...] US HEAD NECK SOFT TISSUE Routine 08/24/2024 10:18 AM EDT documented in this encounter Results * US Head Neck Soft Tissue (08/24/2024 10:18 AM EDT) Anatomical Region Laterality Modality Head, Neck Ultrasound us Historical Provider MD CORREIA US PROCEDURES Final R esult documented in this encounter Visit Diagnoses Not on filedocumented in this encounter Additional Health Concerns Assessment Noted Time PHQ-9 Depression Total Score: 14 025 11:23 AM EST documented as of this encounter Care Teams Tire Spotter Relationship Specialty Start Date End Date Jackie Abdi MD [address] [place] [address] PCP - General Family Medicine 04/29/13 documented as of this encounter
--- OUTSIDE RECORDS SUMMARY | 2024-12-13 18:02 | XMS_ITS | Encounter Summary ---
Author Organization [employer] Address [address] [facility] [address] 7t [place] [address] Care Team Providers Care Velvet Steamer Name Role Phone Jackie Abdi MD Primary Care Provider [phone] Reason for Visit * Reason Onset Date Comments Appt materials 01/21/2023 Encounter Details Date Type Department Care Team (Late st Contact Info) Description 01/21/2023 Telephone [facility] [address] [place] [address] Sharon Fernandez DMD Appt materials Social History [...] the past 12 months, has t he [employer], gas, oil or water [employer] threatened to shut off services in your [...] documented as of this encounter Care Teams Velvet Steamer Relationship Specialty Start Date End Date Jackie Abdi MD [address] [place] [address] PCP - General Family Medicine 04/29/13 documented as of this encounter
--- OUTSIDE RECORDS SUMMARY | 2024-12-13 18:02 | XMS_ITS | Encounter Summary ---
Author Organization [employer] Address 75 [facility] 7t [place] [address] Care Team Providers Care Medical Biller Coder Name Role Phone Jackie Abdi MD Primary Care Provider [phone] Encounter Details Date Type Department Care Team (Late st Contact Info) Description 10/01/2022 Abstract [facility] [address] [place] [address] Jackie Abdi MD [address] [place], [place] [id number] Social History Tobacco Use Types Packs/Day Years [...] as of this encounter Care Teams Medical Biller Coder Relationship Specialty Start Date End Date Jackie Abdi MD [address] [place] [address] PCP - General Family Medicine 04/29/13 documented as of this encounter
--- OUTSIDE RECORDS SUMMARY | 2024-12-13 18:02 | XMS_ITS | Encounter Summary ---
Author Organization [employer] Address [address] [facility] [address] 7t [place] [address] Care Team Providers Care Hot Knife Cutter Name Role Phone Jackie Abdi MD Primary Care Provider [phone] Reason for Visit * Reason Comments Med Refill Encounter Details Date Type Department Care Team ([facility] st Contact Info) Description 06/08/2023 Refill [facility] 230 [place] [address] Jackie Abdi MD [address] [place] [address] Depressed mood Social History Tobacco Use Types [...] documented as of this encounter Care Teams Hot Knife Cutter Relationship Specialty Start Date End Date Jackie Abdi MD [address] [place] [address] PCP - General Family Medicine 04/29/13 documented as of this encounter
--- OUTSIDE RECORDS SUMMARY | 2024-12-13 18:02 | XMS_ITS | Encounter Summary ---
Author Organization [employer] Address 75 [facility] 7t [place] [address] Care Team Providers Care Cable Television Line Technician Name Role Phone Jackie Abid MD Primary Care Provider Reason for Visit * Reason Onset Date Comments Results 08/04/2023 Encounter Details Date Type Department Care Team ([facility] Contact Info) Description 08/04/2023 Telephone [facility] CH[facility] MED & PEDS 505 [place] [address] Jackie Abdi MD 505 [place] [address] Results Social History Tobacco Use Types Packs/Day [...] labs. Pt stated these were done by [facility] and that [...] and culture Date when done: 08/02 Facility: [facility] Please contact pt at [phone] documented in this encounter Plan of Treatment Not on file documented as of this encounter Visit Diagnoses Not on filedocumented in this encounter Additional Health Concerns Assessment Noted Time PHQ-9 Depression Total Score: 21 023 8:57 AM EDT documented as of this encounter Care Teams Cable Television Line Technician Relationship Specialty Start Date End Date Jackie Abdi MD [address] [place] [address] PCP - General Family Medicine 04/29/13 documented as of this encounter
--- OUTSIDE RECORDS SUMMARY | 2024-12-13 18:02 | XMS_ITS | Encounter Summary ---
Author Organization [employer] Address [address] [facility] [address] 7t [place] [address] Care Team Providers Care Jet Man Name Role Phone Jackie Abdi MD Primary Care Provider [phone] Reason for Visit * Reason Comments Med Refill Encounter Details Date Type Department Care Team ([facility] st Contact Info) Description 11/13/2023 Refill [facility] 230 [place] [address] Jackie Abdi MD [address] [place] [address] Social History Tobacco Use Types Packs/Day Years [...] documented as of this encounter Care Teams Jet Man Relationship Specialty Start Date End Date Jackie Abdi MD [address] [place] [address] PCP - General Family Medicine 04/29/13 documented as of this encounter
--- OUTSIDE RECORDS SUMMARY | 2024-12-13 18:02 | XMS_ITS | Encounter Summary ---
Author Organization [employer] Address [address] [facility] 7t [place] [address] Care Team Providers Care Clip Coater Name Role Phone Jackie Abdi MD Primary Care Provider [phone] Reason for Visit * Reason Onset Date Comments Med Refill 11/13/2023 Encounter Details Date Type Department Care Team (Late st Contact Info) Description 11/13/2023 Refill [facility] 230 [place] [address] Jackie Abdi MD [address] [place] [address] Social History Tobacco Use Types Packs/Day Years [...] documented as of this encounter Care Teams Clip Coater Relationship Specialty Start Date End Date Jackie Abdi MD [address] [place] [address] PCP - General Family Medicine 04/29/13 documented as of this encounter
--- OUTSIDE RECORDS SUMMARY | 2024-12-13 18:02 | XMS_ITS | Encounter Summary ---
Author Organization [employer] Address 75 [facility] 7t [place] [address] Care Team Providers Care Tool And Die Supervisor Name Role Phone Jackie Abdi MD Primary Care Provider [phone] Reason for Visit * Reason Comments Med Refill Encounter Details Date Type Department Care Team ([facility] st Contact Info) Description 10/23/2023 Refill [facility] CHC MED & PEDS 505 [place], [place] [phone] Jackie Abdi MD 505 [place] [address] Social History Tobacco Use Types Packs/Day Years [...] documented as of this encounter Care Teams Tool And Die Supervisor Relationship Specialty Start Date End Date Jackie Abdi MD [address] [place] [address] PCP - General Family Medicine 04/29/13 documented as of this encounter
--- OUTSIDE RECORDS SUMMARY | 2024-12-13 18:02 | XMS_ITS | Encounter Summary ---
Author Organization [employer] Address [address] [facility] [address] 7t [place] [address] Care Team Providers Care Automatic Riveting Machine Operator Name Role Phone Jackie Abdi MD Primary Care Provider [phone] Encounter Details Date Type Department Care Team (Late st Contact Info) Description 09/26/2024 Orders Only [facility] CHC MED & PEDS [address] [place], [place] [phone] Provider, MD Sagar Social History Tobacco Use [...] Procedure Name Priority Date/Time Associated Diagnosis Comments ECG 12-LEAD Routine 09/23/2024 10:59 AM EDT documented in this encounter Results * ECG 12 lead (09/23/2024 10:59 AM EDT) us Historical Provider ECG ORDERABLES Final Res ult documented in this encounter Visit Diagnoses Not on filedocumented in this encounter Additional Health Concerns Assessment Noted Time PHQ-9 Depression Total Score: 14 025 11:23 AM EST documented as of this encounter Care Teams Automatic Riveting Machine Operator Relationship Specialty Start Date End Date Jackie Abdi MD [address] [place] [address] PCP - General Family Medicine 04/29/13 documented as of this encounter
--- OUTSIDE RECORDS SUMMARY | 2024-12-13 18:02 | XMS_ITS | Encounter Summary ---
Author Organization [employer] Address 75 [facility] 7t [place] [address] Care Team Providers Care Novelty Candy Maker Name Role Phone Jackie Abdi MD Primary Care Provider [phone] Encounter Details Date Type Department Care Team ([facility] st Contact Info) Description 08/28/2022 Orders Only [facility] CHC MED & PEDS 505 [place], [place] [phone] Ronnell Sanderson MD 505 [place] [address] Social History Tobacco Use Types Packs/Day Years [...] documented as of this encounter Care Teams Novelty Candy Maker Relationship Specialty Start Date End Date Jackie Abdi MD [address] [place] [address] PCP - General Family Medicine 04/29/13 documented as of this encounter
--- OUTSIDE RECORDS SUMMARY | 2024-12-13 18:02 | XMS_ITS | Encounter Summary ---
Author Organization [employer] Address 75 [facility] 7t [place] [address] Care Team Providers Care Local Delivery Driver Name Role Phone Jackie Abdi MD Primary Care Provider [phone] Reason for Visit * Reason Comments Med Refill Encounter Details Date Type Department Care Team ([facility] st Contact Info) Description 09/16/2023 Refill [facility] CHC MED & PEDS [address] [place], [place] [phone] Jackie Abdi MD 505 [place] [address] Acute pain of right shoulder Social History [...] documented as of this encounter Care Teams Local Delivery Driver Relationship Specialty Start Date End Date Jackie Abdi MD [address] [place] [address] PCP - General Family Medicine 04/29/13 documented as of this encounter
--- OUTSIDE RECORDS SUMMARY | 2024-12-13 18:02 | XMS_ITS | Encounter Summary ---
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 09/09/2023 Encounter Details Date Type Department Care Team (Late st Contact Info) Description 09/09/2023 Telephone [facility] ADULT DENTAL [address] [place] [address] Sharon Fernandez DMD sales representative printing supplies Social History Tobacco Use Types Packs/Day Years [...] t he electric, gas, oil or water [employer] threatened to shut off services in your [...] Miscellaneous Notes * Telephone Encounter - Lucinda Eric - 09/09/2023 9:51 AM EDT Patient called in stating hat [facility] to [facility] where she can [facility] for [...] as of this encounter Care Teams Social Service Coordinator Relationship Specialty Start Date End Date Jackie Abdi MD [address] [place] [address] PCP - General Family Medicine 04/29/13 documented as of this encounter
--- OUTSIDE RECORDS SUMMARY | 2024-12-13 18:02 | XMS_ITS | Encounter Summary ---
Author Organization [employer] Address 75 [facility] 7t [place] [address] Care Team Providers Care Armoured Car Escort Name Role Phone Jackie Abdi MD Primary Care Provider [phone] Encounter Details Date Type Department Care Team ([facility] st Contact Info) Description 06/03/2022 Orders Only [facility] CHC MED & PEDS 505 [place], [place] [phone] Kaylin Kaur MD 505 [place] [address] Mid-back pain, acute (Primary Dx) Social History [...] Primary documented in this encounter Care Teams Armoured Car Escort Relationship Specialty Start Date End Date Jackie Abdi MD [address] [place] [address] PCP - General Family Medicine 04/29/13 documented as of this encounter
--- OUTSIDE RECORDS SUMMARY | 2024-12-13 18:02 | XMS_ITS | Encounter Summary ---
Author Organization [employer] Address [address] [facility] [address] 7t [place] [address] Care Team Providers Care Entry Level Chemist Name Role Phone Jackie Abdi MD Primary Care Provider Encounter Details Date Type Department Care Team (Latest Contact Info) Description 12/13/2024 Travel Social History Tobacco Use Types Packs/Day Years [...] documented as of this encounter Care Teams Entry Level Chemist Relationship Specialty Start Date End Date Jackie Abdi MD [address] [place] [address] PCP - General Family Medicine 04/29/13 documented as of this encounter
--- OUTSIDE RECORDS SUMMARY | 2024-12-13 18:02 | XMS_ITS | Encounter Summary ---
Author Organization [email or web address] Address 75 [facility] 7t [place] [address] Care Team Providers Care Firebrick Layer Name Role Phone Jackie Abdi MD Primary Care Provider [phone] Reason for Visit * Reason Onset Date Comments Results 04/30/2022 Encounter Details Date Type Department Care Team ([facility] st Contact Info) Description 04/30/2022 Telephone [facility] MED[facility] [address] [place] [address] Jackie Abdi MD [address] [place] [address] Results Social History Tobacco Use Types Packs/Day [...] regarding xray results Please contact pt at [phone] documented in this encounter Plan of Treatment Not on file documented as of this encounter Visit Diagnoses Not on filedocumented in this encounter Care Teams Firebrick Layer Relationship Specialty Start Date End Date Jackie Abdi MD [address] [place] [address] PCP - General Family Medicine 04/29/13 documented as of this encounter
--- OUTSIDE RECORDS SUMMARY | 2024-12-13 18:02 | XMS_ITS | Encounter Summary ---
Author Organization [employer] Address 75 [facility] 7t [place] [address] Care Team Providers Care Photogrammetric Compilation Specialist Name Role Phone Jackie Abdi MD Primary Care Provider [phone] Reason for Visit * Reason Onset Date Comments Nurse Triage 12/13/2024 Encounter Details Date Type Department Care Team ([facility] st Contact Info) Description 12/13/2024 Telephone C [facility] MED [facility] PEDS 505 [place] [address] Jackie Abdi MD 505 [place] [address] Nurse Triage Social History Tobacco Use Types [...] encounter Miscellaneous Notes * Telephone Encounter - Melissa StanleySYBIL roberts - 12/13/2024 10:39 AM EDT Triage call returned to patient who reports a cracking sound in the back of her head when she turnsleft this seems to trigger a headache and dizziness. Patient reports this dizziness is different from when she had vertigo and was taking Antivert. Patient also reports Vomiting and Diarrhea since Thursday with poor fluid intake ( patient with gastric bypass hx) fluids encouraged and concerns for dehydration reviewed. Patient reports last stool was at 3am this morning. No blood reported. Disposition reviewed with patient in agreement with plan. No PCP or Team appts. Available at time of call. [facility] In Center hours and availability provided for patient evaluation. Triage nurse informed the patient may have a wait of 1-2 hours because Walk In Clinic may have delays due to patient volume or symptom acuity. Insurance verified as active. Multiple (2) protocols were used on this call. Disposition for Call: See in Office or Video Visit Today Protocol Used: Diarrhea (Adult) Protocol-Based Disposition: See in Office or Video Visit Today Video visit not offered Positive Triage Question: * Moderate diarrhea (e.g., 4-6 times / day more than normal) and present > 48 hours (2 days) * All higher-acuity triage questions were negative Care Advice Discussed: * Fluid Therapy During Mild to Moderate Diarrhea * Reasons To Call Back - Signs of dehydration occur (such as no urine over 12 hours, very dry mouth, lightheaded, etc.) - You become worse Protocol Used: Headache (Adult) Protocol-Based Disposition: See in Office or Video Visit Today or Tomorrow Video visit not offered Positive Triage Question: * Moderate headache (e.g., interferes with normal activities) present > 24 hours and unexplained * All higher-acuity triage questions were negative Care Advice Discussed: * Reasons To Call Back - You become worse * Telephone Encounter - Jazmine Engel - 12/13/2024 9:56 AM EDT Symptoms: Dizziness, Headache Outcome: Schedule a same-day appointment or talk to a nurse or provider today Reason: Caller denied all higher acuity questions The caller accepted this outcome. Contact pt at [phone] documented in this encounter Plan of Treatment Not on file documented as of this encounter Visit Diagnoses Not on filedocumented in this encounter Additional Health Concerns Assessment Noted Time PHQ-9 Depression Total Score: 14 025 11:23 AM EST documented as of this encounter Care Teams Photogrammetric Compilation Specialist Relationship Specialty Start Date End Date Jackie Abdi MD [address] [place] [address] PCP - General Family Medicine 04/29/13 documented as of this encounter
--- OUTSIDE RECORDS SUMMARY | 2024-12-13 18:02 | XMS_ITS | Encounter Summary ---
Author Organization [employer] Address 75 [facility] 7t [place] [address] Care Team Providers Care Shield Installer Name Role Phone Jackie Adbi MD Primary Care Provider [phone] Reason for Visit * Reason Onset Date Comments Med Refill 10/24/2022 Encounter Details Date Type Department Care Team (Late st Contact Info) Description 10/24/2022 Refill [facility] MEDICINE [address] [place] [address] Jackie Abdi MD [address] [place] [address] Social History Tobacco Use Types Packs/Day Years [...] documented as of this encounter Care Teams Shield Installer Relationship Specialty Start Date End Date Jackie Abdi MD [address] [place] [address] PCP - General Family Medicine 04/29/13 documented as of this encounter
--- OUTSIDE RECORDS SUMMARY | 2024-12-13 18:02 | XMS_ITS | Encounter Summary ---
Author Organization [employer] Address [address] [place] [address] 7t [place] [address] Care Team Providers Care Galvanizing Pot Runner Name Role Phone Jackie Abdi MD Primary Care Provider [phone] Reason for Visit * Reason Onset Date Comments Med Refill 12/08/2022 Encounter Details Date Type Department Care Team (Late st Contact Info) Description 12/08/2022 Refill [facility] CHC MED & PEDS 505 [place] [address] Jackie Abdi MD [address] [place] [address] Social History Tobacco Use Types Packs/Day Years [...] documented as of this encounter Care Teams Galvanizing Pot Runner Relationship Specialty Start Date End Date Jackie Abdi MD [address] [place] [address] PCP - General Family Medicine 04/29/13 documented as of this encounter
--- OUTSIDE RECORDS SUMMARY | 2024-12-13 18:02 | XMS_ITS | Encounter Summary ---
Author Organization [employer] Address 75 [facility] 7t [place] [address] Care Team Providers Care Clinical Pharmacy Specialist Name Role Phone Jackie Abdi MD Primary Care Provider [phone] Encounter Details Date Type Department Care Team (Late st Contact Info) Description 09/20/2024 Orders Only [facility] [address] [place] [address] Provider, MD Sagar Social History Tobacco Use [...] documented as of this encounter Care Teams Clinical Pharmacy Specialist Relationship Specialty Start Date End Date Jackie Abdi MD [address] [place] [address] PCP - General Family Medicine 04/29/13 documented as of this encounter
--- OUTSIDE RECORDS SUMMARY | 2024-12-13 18:02 | XMS_ITS | Encounter Summary ---
Author Organization [employer] Address 75 [facility] 7t [place] [address] Care Team Providers Care Prototype Assembler Electronics Name Role Phone Jackie Abdi MD Primary Care Provider [phone] Encounter Details Date Type Department Care Team (Late st Contact Info) Description 03/18/2022 Orders Only [facility] CHC MED & PEDS [address] [place] [address] Marielos Hooks LPN Social History Tobacco Use [...] on filedocumented in this encounter Care Teams Prototype Assembler Electronics Relationship Specialty Start Date End Date Jackie Abdi MD [address] [place] [address] PCP - General Family Medicine 04/29/13 documented as of this encounter
--- OUTSIDE RECORDS SUMMARY | 2024-12-13 18:02 | XMS_ITS | Clinical Summary ---
Author Organization [facility] Address [address] [place] [address] Phone Care Team Providers Care Bin Cleaner Name Role Phone Jackie Abdi MD Primary Care Provider [phone] Allergies Active Allergy Reactions Criticality Noted Date [...] time each day. 5 07/01/19 26 Active topiramate (TOPAMAX) 50 mg tabletIndication s:Class 1 obesity due to excess calories with body mass index (BMI) of 30.0 to 30.9 in adult, unspecified whether serious comorbidity present Take 1 tablet (50 mg total) by mouth at bedtime. 30 tablet 3 5 Active phentermine 15 mg capsuleIndicatio ns:Class 1 obesity due to excess calories with body mass index (BMI) of 30.0 to 30.9 in adult, unspecified whether serious comorbidity present Take 1 capsule (15 mg total) by mouth 1 (one) time each day before breakfast. Max Daily Amount: 15 mg 30 each 5 02/15/20 25 Active zolpidem CR (AMBIEN CR) 6.25 mg CR tabletIndication s:Over weight Take 1 tablet (6.25 mg total) by mouth at bedtime as needed for sleep. Do not crush, chew, or split. Max Daily Amount: 6.25 mg 30 tablet 2 5 02/18/20 25 Active Active Problems Problem Noted Date Diagnosed Date Bile-induced gastritis 03/08/2024 Nausea and vomiting 03/08/2024 Overweight (BMI 25.0-29.9) 04/22/2021 Eating disorder 10/11/2020 Hypercholesteremia 10/11/2020 Obstructive sleep apnea 10/11/2020 Overview (03/08/2024): CPAP Gastroesophageal reflux dise ase with esophagitis without hemorrhage 05/03/2020 Encounters Date Type Department Care Team Description 09/22/2024 1:45 PM EDT Office Visit Bariatric Surgery - [facility] [address] [facility] [address] [place] [address] Aleksandar Heaton MD Hyperchloremia (Primary Dx); Over weight 09/20/2024 7:44 AM EDT - 09/20/2024 11:59 PM EDT Hospital Encounter [facility] Xray [address] [place] [address] Gastroesophageal reflux disease, unspecified whether esophagitis present Discharge Disposition: Home or Self Care from Last 3 Months Immunizations Name Administration Dates Next Due Tdap Tetanus diptheria acell ular pertussis (Boostrix; Adacel) 7yo and older 01/19/2012 Surgical History Surgery Date Site/Laterality Comments OTHER SURGICAL HISTORY PROCEDURE: [place] ARTHRS AID TIBIAL FRACTURE PROXIMAL UNICONDYLAR CHOLECYSTECTOMY PROCEDURE: [place] LAPAROSCOPY SURG CHOLECYSTECTOMY BUNIONECTOMY PROCEDURE: BUNION SURGERY, SIMPLE REMOVAL SECTION PROCEDURE: TX DELIVERY ONLY Medical History Medical History Date Comments Hypercholesteremia DX:Hyperchole steremia Class 2 severe obesity due t o excess calories with serious comorbidity and body mass index (BMI) of 35.0 to 35.9 in adult ([facility] V24, [facility] V28) 05/03/2020 DX:Class 2 severe obe sity due to excess calories with serious comorbidity and body mass index (BMI) of 35.0 to 35.9 in adult ([facility]) Gastroesophageal reflux dise ase [...] PM EST Office Visit Bariatric Surgery - [place] [address] [facility] [address] [place] [address] Aleksandar Heaton MD [address] [place] [phone] Health Maintenance Due Date Last Done Comments [...] Gastroesophageal reflux disease, unspecified whether esophagitis present LIPID PANEL WITH REFLEX TO DIRECT [...] LAB CHEMISTRY METHOD 09/22/2024 6:27 PM EDT [facility] Potassium 3.6 3.5 - 5.5 mmol/L LAB CHEMISTRY METHOD 09/22/2024 6:27 PM [facility] Chloride 109 96 - 110 mmol/L LAB CHEMISTRY METHOD 09/22/2024 6:27 PM T [facility] CO2 24 21 - 32 mmol/L LAB CHEMISTRY METHOD [facility] Anion Gap 6 3 - 11 LAB CHEMISTRY METHOD 09/22/2024 6:27 PM EDT [facility] Blood Venous blood specimen / Unknown Venipuncture / Unknown 09/22/2024 1:48 PM EDT 09/22/2024 1:48 PM EDT us Aleksandar Heaton MD LAB BLOOD ORDERABLES Final R esult [facility] [address] [place] [address], [place] [phone] * XR UGI w Single Contrast (09/20/2024 [...] Signed Date: 09/20/2024 09:47 ET Workstation ID: [id number] Transcribed By: Self Edit Transcribed Date: 09/20/2024 09:21 ET Resident/PA/SHIFT FOREMAN: Roseline Gordillo Narrative 09/20/2024 9:47 AM EDT FINDINGS: Single contrast UGI performed. COMPARISON: Upper GI June 05, 2022 HISTORY: Patient is a 54-year-old female with history of gastric bypass in 2020, worsening GERD. ROVING HAULER radiographs: Local Superintendent AP radiograph of the abdomen obtained. Bowel [...] 54-year-old female with history of gastric bypass [id number], worsening GERD. ROVING HAULER radiographs: Local Superintendent AP radiograph of the abdomen obtained. Bowel [...] Signed Date: 09/20/2024 09:47 ET Workstation ID: [id number] Transcribed By: Self Edit Transcribed Date: 09/20/2024 09:21 ET Resident/PA/SHIFT FOREMAN: Roseline Gordillo us Aleksandar Heaton MD IMG FLUOROSCOPY PROCEDURES F inal Result * (ABNORMAL) Lipid panel with reflex [...] Final R esult [facility] [address] [place] [address], * Hepatitis C Screening (09/22/2023) Hepatitis C Screening abstracted us Historical Provider HEALTH MAINTENANCE Final Result from Last 3 Months or Most Recently Relevant to Health Maintenance Insurance MEDICAID - [place] Care Teams Bin Cleaner Relationship Specialty Start Date End Date Jackie Abdi MD [address] [place] [address] PCP - General 10/20/16
--- OUTSIDE RECORDS SUMMARY | 2024-12-13 18:02 | XMS_ITS | Encounter Summary ---
Author Organization [employer] Address [address] [facility] 7t [place] [address] Care Team Providers Care Net Application Architect Name Role Phone Jackie Abdi MD Primary Care Provider [phone] Reason for Visit * Reason Onset Date Comments Med Refill 12/05/2022 Encounter Details Date Type Department Care Team (Late st Contact Info) Description 12/05/2022 Refill [facility] MED [facility] PEDS [address] [place] [address] Abby Duran MD Social History Tobacco Use [...] as of this encounter Care Teams Net Application Architect Relationship Specialty Start Date End Date Jackie Abdi MD [address] [place] [address] PCP - General Family Medicine 04/29/13 documented as of this encounter
--- OUTSIDE RECORDS SUMMARY | 2024-12-13 18:02 | XMS_ITS | Encounter Summary ---
Author Organization [employer] Address [address] [facility] 7t [place] [address] Care Team Providers Care Contract Administration Coordinator Name Role Phone Jackie Abdi MD Primary Care Provider [phone] Encounter Details Date Type Department Care Team (Late st Contact Info) Description 12/07/2023 Orders Only [facility] [address] [place] [address] [phone] Hiren Garcia MD [address] [place], [place] [phone] Social History Tobacco Use Types Packs/Day Years [...] AM EDT) 01/01/2024 9:09 AM EDT Narrative [facility] - 01/04/2024 4:19 PM EDT [place] [address] Nuclear Medicine Report Signed Patient: Sade Fraga MR#: [id number] 4 : 1970 Acct:[id number] Age/Sex: 53 / F ADM Date: 01/01/24 Loc: [facility] Attending Dr: Abdelrahman Ricketts MD Ordering Physician: Abdelrahman Ricketts MD Date of Service: 01/01/24 Procedure(s): NM cardiolite stress test Accession Number(s): [id number] cc: Jackie Abdi MD; Abdelrahman Ricketts MD [...] Abdelrahman Ricketts MD 01/04/2024 04:16 PM EDT RP Dictated By: Abdelrahman Ricketts MD Signed By: <Electronically signed by Abdelrahman Ricketts MD in OV> 01/04/24 1616 DD/ 0909 TD/TT: 01/04/24 1200 Manager International: Procedure Note Donotuseinterpreter, Image - 01/04/[address] [address] Nuclear Medicine Report Signed Patient: Sade Fraga#: [id number] 4 : 1970Acct:[id number] Age/Sex: 53 / FADM Date: 01/01/24 Loc: .CARD Attending Dr: Abdelrahman Ricketts MD Ordering Physician: Abdelrahman Ricketts MD Date of Service: 01/01/24 Procedure(s): NM cardiolite stress test Accession Number(s): [id number] cc: Jackie Abdi MD; Abdelrahman Ricketts MD [...] 01/04/24 1616 DD/ 0909 TD/TT: 01/04/24 1200 Manager International: [facility] External Provider CV STRE SS PROCEDURES Final Result [facility] [address] [place], [place] [phone] documented in this encounter Visit Diagnoses Not on filedocumented in this encounter Additional Health Concerns Assessment Noted Time PHQ-9 Depression Total Score: 21 06/26/ 023 8:57 AM EDT documented as of this encounter Care Teams Contract Administration Coordinator Relationship Specialty Start Date End Date Jackie Abdi MD [address] [place] [address] PCP - General Family Medicine 04/29/13 documented as of this encounter
--- OUTSIDE RECORDS SUMMARY | 2024-12-13 18:02 | XMS_ITS | Encounter Summary ---
Author Organization [employer] Address [address] [facility] 7t [place] [address] Care Team Providers Care Diesel Engine Operator Name Role Phone Jackie Abdi MD Primary Care Provider [phone] Reason for Visit * Reason Onset Date Comments call back 06/03/2022 Encounter Details Date Type Department Care Team ([facility] st Contact Info) Description 06/03/2022 Telephone [facility] MEDICINE [address] [place] [address] Jackie Abdi MD [address] [place] [address] call back Social History Tobacco Use Types [...] a call back. Please contact pt at [phone] documented in this encounter Plan of Treatment Not on file documented as of this encounter Visit Diagnoses Not on filedocumented in this encounter Care Teams Diesel Engine Operator Relationship Specialty Start Date End Date Jackie Abdi MD [address] [place] [address] PCP - General Family Medicine 04/29/13 documented as of this encounter
--- OUTSIDE RECORDS SUMMARY | 2024-12-13 18:02 | XMS_ITS | Encounter Summary ---
Author Organization [employer] Address [address] [facility] 7t [place] [address] Care Team Providers Care Egg Breaker Name Role Phone Jackie Abdi MD Primary Care Provider [phone] Reason for Visit * Reason Onset Date Comments Med Refill 02/26/2023 Encounter Details Date Type Department Care Team ([facility] st Contact Info) Description 02/26/2023 Refill [facility] MED & PEDS [address] [place] [address] Jackie Abdi MD [address] [place] [address] Social History Tobacco Use Types Packs/Day Years [...] documented as of this encounter Care Teams Egg Breaker Relationship Specialty Start Date End Date Jackie Abdi MD [address] [place] [address] PCP - General Family Medicine 04/29/13 documented as of this encounter
--- OUTSIDE RECORDS SUMMARY | 2024-12-13 18:02 | XMS_ITS | Encounter Summary ---
Author Organization [employer] Address 75 [facility] 7t [place] [address] Care Team Providers Care Cargo And Ramp Services Manager Name Role Phone Jackie Abdi MD Primary Care Provider Reason for Visit * Reason Onset Date Comments Referral 08/26/2023 Encounter Details Date Type Department Care Team ([facility] st Contact Info) Description 08/26/2023 Telephone [facility] MEDICINE [address] [place] [address] Jackie Abdi MD [address] [place] [address] Referral Social History Tobacco Use Types Packs/Day [...] EDT Tc from pt was advised by air gun operator office to request new referral due not being seen until 2020. Address: [address] [place] [address] [address] [place] [address] Facility Name: [facility]. Type of Specialist: Clerk Manager Pt is also requesting referral for a urologist and or destination imagination coordinator due to some recent concerns. (Ptwas triaged) If any questions please contact pt at [phone]. documented in this encounter Plan of Treatment Not on file documented as of this encounter Visit Diagnoses Not on filedocumented in this encounter Additional Health Concerns Assessment Noted Time PHQ-9 Depression Total Score: 21 023 8:57 AM EDT documented as of this encounter Care Teams Cargo And Ramp Services Manager Relationship Specialty Start Date End Date Jackie Abdi MD [address] [place] [address] PCP - General Family Medicine 04/29/13 documented as of this encounter
--- OUTSIDE RECORDS SUMMARY | 2024-12-13 18:02 | XMS_ITS | Encounter Summary ---
Author Organization [employer] Address [address] [facility] 7t [place] [address] Care Team Providers Care Enterprise Integration Developer Name Role Phone Jackie Abdi MD Primary Care Provider Reason for Visit * Reason Comments Med Refill Encounter Details Date Type Department Care Team ([facility] st Contact Info) Description 09/01/2023 Refill [facility] MED & PEDS [address] [place], [place] [phone] Ronnell Sanderson MD [address] [place] [address] Acute pain of right shoulder Social History [...] documented as of this encounter Care Teams Enterprise Integration Developer Relationship Specialty Start Date End Date Jackie Abdi MD [address] [place] [address] PCP - General Family Medicine 04/29/13 documented as of this encounter
--- OUTSIDE RECORDS SUMMARY | 2024-12-13 18:02 | XMS_ITS | Clinical Summary ---
Author Organization [facility] Facility Address [address] [place] [address] Care Team Providers Care Telephone Directory Distributor Driver Name Role Phone Jackie Abdi MD Primary Care Provider [phone] Allergies No known active allergies Medications omeprazole [...] Insurance Medicaid [place] Medicaid [place] Care Teams Telephone Directory Distributor Driver Relationship Specialty Start Date End Date Jackie Abdi MD [address] [place] [address] [facility] - General 04/09/20
--- OUTSIDE RECORDS SUMMARY | 2024-12-13 18:02 | XMS_ITS | Encounter Summary ---
Author Organization [employer] Address [address] [facility] 7t [place] [address] Care Team Providers Care Editor Magazine Name Role Phone Jackie Abdi MD Primary Care Provider [phone] Encounter Details Date Type Department Care Team ([facility] st Contact Info) Description 03/11/2023 Abstract [facility] [address] [place] [address] Jackie Abdi MD [address] [place] [address] Social History Tobacco Use Types Packs/Day Years [...] documented as of this encounter Care Teams Editor Magazine Relationship Specialty Start Date End Date Jackie Abdi MD [address] [place] [address] PCP - General Family Medicine 04/29/13 documented as of this encounter
--- OUTSIDE RECORDS SUMMARY | 2024-12-13 18:02 | XMS_ITS | Encounter Summary ---
Author Organization [employer] Address [address] [facility] 7t [place] [address] Care Team Providers Care Behavioral Science Chair Name Role Phone Jackie Abdi MD Primary Care Provider [phone] Encounter Details Date Type Department Care Team ([facility] st Contact Info) Description 12/08/2022 Telephone [facility] CH[facility] MED & PEDS [address] [place], [place] [phone] Jackie Abid MD [address] [place] [address] Social History Tobacco Use Types Packs/Day Years [...] documented as of this encounter Care Teams Behavioral Science Chair Relationship Specialty Start Date End Date Jackie Abdi MD [address] [place] [address] PCP - General Family Medicine 04/29/13 documented as of this encounter
--- OUTSIDE RECORDS SUMMARY | 2024-12-13 18:03 | XMS_ITS | Clinical Summary ---
Author Organization [employer] Address [address] [facility] [address] [place] [address] Care Team Providers Care Sales Development Consultant Name Role Phone Jackie Abdi MD Primary Care Provider [phone] Allergies Active Allergy Reactions Criticality Noted Date Comments Sulfamethoxazole-Trimethoprim Angioedema 2023 Medications Multiple Vitamin (Multi-Vitamin) tablet Take 1 tablet by mouth at bed time. Active cholecalciferol (Vitamin D-3) 1.25 MG (28469 UT) capsule Take 1 capsule by mouth. [...] MOUTH TWICE DAILY 180 tablet 4 Active dicyclomine (Bentyl) 10 MG capsuleIndications: History of cholecystectomy Take 1 capsule (10 mg) by mouth 3 times daily. 90 capsule 3 4 Active omeprazole (PriLOSEC) [address] capsule Take 1 capsule (40 mg) by mouth before breakfast. Do not crush or chew. 90 capsule 3 4 Active Symbicort 80-4.5 MCG/ACT inhaler INHALE 2 [...] MOUTH TWICE DAILY 40 capsule 5 Active cyclobenzaprine (Flexeril) 10 MG tablet [...] breakfast. 30 tablet 11 5 026 Active FLUoxetine (PROzac) 10 MG capsule TAKE 1 CAPSULE(10 MG) BY MOUTH DAILY 30 capsule 11 5 Active hydrOXYzine pamoate (Vistaril) 50 MG capsule TAKE 1 CAPSULE BY MOUTH TWICE DAILY 60 capsule 3 5 Active Active Problems Problem Noted Date Diagnosed Date Unintentional weight loss 12/13/2024 Assessment & Plan (12/13/2024 1:44 PM EDT): Blood work ordered today patient will be contacted with results Acute tension-type headache 12/13/2024 Assessment & Plan (12/13/2024 1:45 PM EDT): She may take acetaminophen as needed Diarrhea 12/13/2024 Assessment & Plan (12/13/2024 1:44 PM EDT): I will test today for patient reports diarrhea nausea vomiting are much better now she did not have any vomiting today just a small amount of diarrhea Neck pain 12/13/2024 Assessment & Plan (12/13/2024 1:45 PM EDT): X-ray ordered patient will be contacted with results Heartburn 07/11/2024 H/O gastric bypass 07/11/2024 Pharyngitis [...] Encounters Date Type Department Care Team Description 12/13/2024 1:20 PM EDT Office Visit [facility] [address] [place] [phone] Stephenie Mcdaniels MD Unintentional weight loss (Primary Dx); Acute non intractable tension-type headache; Diarrhea, unspecified type; Neck pain 12/13/2024 Travel 12/13/2024 Telephone [facility] [address] [place] [address] Jackie Abdi MD Nurse Triage 11/08/2024 Refill [facility] [address] [place] [phone] Jackie Abdi MD 10/03/2024 Telephone [facility] [address] [place] [phone] Andreea Nunez, [place] 09/26/2024 Orders Only [facility] [address] [place] [address] Sagar Lovell MD 09/23/2024 10:15 AM EDT Office Visit [facility] [address] [place] [address] Jackie Abdi MD Chronic right shoulder pain (Primary Dx); Preop cardiovascular exam; Urinary tract infection without hematuria, site unspecified; Hypothyroidism, unspecified type 09/23/2024 Travel 09/21/2024 Travel 09/20/2024 Orders Only [facility] Information Management [address] [place], [place] [phone] Sagar Lovell MD from Last 3 Months Immunizations Immunization Administration Dates Next Due Hep A / Hep B 03/18/2024 Hep B, adult 02/08/2021,01/09/2021 Influenza injectable quadriv alent preservative free 01/16/2023,01/20/2022,01/09/2021,02/02 Influenza, IIV3, injectable 01/09/2021,1 04/04/2019,01/07/2019,01/15,02/21/2017,01/25/2015 Influenza, Injectable, MDCK, preservative free 12/03/2023 Influenza, Split (incl. [place] fied surface antigen) 01/19/2012 Pfizer Covid-19 Vaccine 12+ 08/22/2020, Pneumococcal Polysaccharide PPSV23 02/21/2017 Tdap 01/19/2012 Zoster, Recombinant 03/18/2024,12/03/2023 Family History Medical History Relation Name Comments [...] oz) 12/13/2024 1:07 P M EDT Height 149.9 cm (4' 11 ) 09/23/2024 10:35 AM EDT Body Mass Index 25.89 09/23/2024 10:35 AM EDT Plan of Treatment Health Maintenance Due Date Last Done Comments CT Colonography 1972 Colonoscopy 1972 FIT 1972 Sigmoidoscopy 1972 Alcohol/Substance Use Screening 1984 Family Planning (PISQ) 1987 DTaP/Tdap/Td Vaccines (2 - Td or Tdap) 01/18/2022 01/19/2012 Dental X-Ray: Bitewings 05/27/2023 05/26/2022 Dental Oral Exam 09/10/2023 03/10/2023, 05/26/2022 Dental Prophylaxis 09/10/2023 03/10/2023, 06/27/2022 FOBT 02/24/2024 02/23/2023 Depression Monitoring 10/17/2024 04/19/2024, 025 Influenza Vaccine (#1) 2024 , 01/16/2023, 01/20/2022, Additional history exists Dental X-Ray: Full Mouth 05/27/2025 05/26/2022 Disability Screening 06/21/2025 06/21/2024 SDOH Screening 06/21/2025 06/21/2024 Tobacco Screening 09/23/2025 09/23/2024 Colorectal Cancer Screening 02/23/2026 FIT DNA/Cologuard 02/23/2026 02/23/2023 Mammogram 06/03/2026 06/03/2024, 03/02/2020 Cervical Cancer Screening 04/08/2027 HPV/Cotest 04/08/2027 04/08/2022 Pap Smear 04/08/2027 04/08/2022 Lipid Panel 09/29/2029 09/29/2024, 08/28, 08/03/2020, Additional history exists RSV Patients and Patients Aged 60 years [...] 2 :34 PM EDT Unintentional weight loss HEMOGLOBIN A1C Routine 12/13/2024 2:34 PM EDT Unintentional weight loss COMPREHENSIVE METABOLIC PANEL Routine 12/13/2024 2:34 PM EDT Unintentional weight loss CBC WITH AUTO DIFFERENTIAL Routine 12/13/2024 2:34 PM EDT Unintentional weight loss POCT INFLUENZA B (ID NOW RAPID MOLECULAR) Routine 12/13/2024 1:51 PM EDT Diarrhea, unspecified type POCT INFLUENZA A (ID NOW RAPID MOLECULAR) Routine 12/13/2024 1:51 PM EDT Diarrhea, unspecified type POCT RAPID COVID ANTIGEN Routine 12/13/2024 1:51 PM EDT Diarrhea, unspecified type TSH W/REFLEX TO FT4 Routine 09/29/2024 9 :15 AM EDT Hypothyroidism, unspecified type HEPATIC FUNCTION PANEL Routine 9:15 AM EDT Hypothyroidism, unspecified type LIPID PANEL, STANDARD Routine 09/29/2024 9:15 AM EDT Hypothyroidism, unspecified type BASIC METABOLIC PANEL Routine 09/29/2024 9:15 AM EDT Hypothyroidism, unspecified type ECG 12-LEAD Routine 09/23/2024 10:59 AM EDT POCT URINALYSIS DIPSTICK Routine 09/23/2024 10:46 AM EDT Urinary tract infection without hematuria, site unspecified XR UGI SINGLE CONTRAST W KUB Routine 09/20/2024 11:05 AM EDT BI MAMMOGRAM SCREENING TOMOSYNTHESIS BILATERAL Routine 06/03/2024 9:45 AM EST Screening mammogram for breast cancer PROPHYLAXIS - ADULT Routine 03/10/2023 2 :00 PM EST PERIODIC ORAL EVALUATION - ESTABLISHED PATIENT Routine 03/10/2023 2:00 PM EST LAB COLOGUARD COLON CANCER SCREEN Routine 02/23/2023 10:44 AM [...] Recently Relevant to Health Maintenance Results * XR CERVICAL SPINE 4V (12/13/2024 4:05 PM EDT) Anatomical Region Laterality Modality Abdomen Radiographic Janice ging 12/13/2024 4:05 PM EDT Narrative 12/13/2024 4:31 PM EDT [address] [place] [address] XRay Report Signed Patient: Sade Fraga MR#: [id number] 4 : 1970 Acct:[id number] Age/Sex: 54 / F ADM Date: 12/13/24 Loc: HO.HHCX Attending Dr: Stephenie Chappell MD Ordering Physician: Stephenie Mcdaniels MD Date of Service: 12/13/24 Procedure(s): XR cervical spine 4V Accession Number(s): [id number] cc: Stephenie Mcdaniels MD Reason for Exam: [...] 12/13/24 1628 DD/ 1605 TD/TT: 12/13/24 1610 Accredited Pharmacy Technician: Procedure Note Donotuseinterpreter, Image - 12/13/2024 [facility] [address] [place] [address] XRay Report Signed Patient: Gray Fraga#: [id number] 4 : 1970Acct:[id number] Age/Sex: 54 / FADM Date: 12/13/24 Loc: HO.HHCX Attending Dr: Stephenie Chappell MD Ordering Physician: Stephenie Mcdaniels MD Date of Service: 12/13/24 Procedure(s): XR cervical spine 4V Accession Number(s): [id number] cc: Stephenie Mcdaniels MD Reason for Exam: [...] 12/13/24 1628 DD/ 1605 TD/TT: 12/13/24 1610 Accredited Pharmacy Technician: us Stephenie Chappell MD IMG XR PROCEDURES Vinny aaliyah Result - Final * TSH with Reflex to Free T4 (12/13/2024 2:34 PM EDT) Only the most recent of2 resultswithin the time period is included. TSH reflex Free T4 1.51 0.32 - 4.0 uIU/mL [facility] Blood Venous blood specimen / Unknown 12/13/2024 2:34 PM EDT 12/13/2024 4:04 PM EDT Stephenie Chappell MD LAB BLOOD ORDERABLES Final Result [facility] [address] [place] [address] [phone] * (ABNORMAL) CBC auto differential (12/13/2024 2:34 PM EDT) Pathologist [facility] White Blood Count 6.0 4.8 - 10.8 X10*3/uL [facility] Red Blood Count 4.58 4.20 - 5.50 X10*6/uL [facility] Hemoglobin 12.5 12.0 - 16.0 g/dl [facility] Hematocrit 37.9 37.0 - 47.0 % [facility] Mean Corpuscular Volume 82.8 80.0 - 98.0 fL [facility] Mean Corpuscular Hemoglobin 27.3 27.0 - 33.0 pg [facility] Mean Corpuscular HGB Conc 33.0 31.0 - 35.0 g/dl [facility] Red Cell Distribution Width 17.4(H) 11.0 - 16.0 % [facility] Platelet Count 301 160 - 400 X10*3/uL [facility] Mean Platelet Volume 11.1 9.4 - 12.3 fL [facility] Neutrophils Percent Auto 54.0 45 - 73 % [facility] Imm Gran Pct Auto 0.2 0.0 - 0.4 % [facility] Lymphocytes Percent Auto 23.7 20 - 40 % [facility] Monocytes Percent Auto 18.6(H) 2 - 11 % [facility] Eosinophils Percent Auto 3.0 0 - 4 % [facility] Basophils Percent Auto 0.5 0 - 2 % [facility] NRBC Pct Auto 0.0 0.0 - 0.2 /100WBC [facility] Neutrophils Absolute Auto 3.3 2.0 - 8.3 x10*3/uL [facility] Imm Gran Abs Auto 0.01 0.00 - 0.03 X10*3/uL [facility] Lymphocytes Absolute Auto 1.4 1.2 - 4.9 X10*3/uL [facility] Monocytes Absolute Auto 1.1 0.1 - 1.2 X10*3/uL [facility] Eosinophils Absolute Auto 0.2 0.0 - 0.4 X10*3/uL [facility] Basophils Absolute Auto 0.0 0.0 - 0.2 X10*3/uL [facility] NRBC Abs Auto 0.000 0.0 - 0.012 X10*3/uL [facility] Blood Venous blood specimen / Unknown 12/13/2024 2:34 PM EDT 12/13/2024 4:04 PM EDT us Stephenie Chappell MD LAB BLOOD ORDERABLES Final Result [facility] [address] [place] [phone] * Hemoglobin A1c (12/13/2024 2:34 PM EDT) Hemoglobin A1c 5.5 <6.0 % [facility] Comment:Hemoglobin A1C Refer ence Range Adults: 4.8 - 6.0 % Non diabetic: < 6.0 % Goal: < 7.0 %Additional Action Suggested: > 8.0 %Note: Hemoglobin A1c results are invalid for patients with abnormal amounts of HbF. Blood transfusions may impact the HbA1c concentration in the patient sample. Estimated Average Glucose 111 mg/dL [facility] Comment:eAG = Estimated ave rage glucose which is %A1C expressed asaverage glucose, using the formula of the N4B-DnfjtwmCgiarqv Glucose study (ADAG), Diabetes Care, Vol.31,#8,2007 Blood Venous blood specimen / Unknown 12/13/2024 2:34 PM EDT 12/13/2024 4:13 PM EDT us Stephenie Chappell MD LAB BLOOD ORDERABLES Final Result [facility] [address] [place] [phone] * (ABNORMAL) Comprehensive Metabolic Panel (12/13/2024 2:34 PM EDT) Sodium 141 135 - 145 mmol/L [facility] Potassium 4.6 3.3 - 5.1 mmol/L [facility] Comment:Slight Hemolysis.Int erpret result with caution. Chloride 109(H) 96 - 108 mmol/L [facility] Carbon Dioxide 25 22 - 29 mmol/L [facility] Anion Gap 12 12 - 20 [facility] Urea Nitrogen (BUN) 13 9 - 16 mg/dL [facility] Creatinine, Serum 1.02 0.5 - 1.4 mg/dL [facility] Estimated Glomerular Filt Rate 57 [facility] Comment:Chronic Kidney Disea se: Estimated GFR < 60 mL/min/1.17a6Cmoswd Kidney Disease: Estimated GFR < 15 mL/min/1.73m2 Glucose 84 60 - 115 mg/dL [facility] Calcium 9.0 8.4 - 10.2 mg/dL [facility] Bilirubin, Total 0.2 0.0 - 1.0 mg/dL [facility] Aspartate Amino Transferase 25 5 - 31 U/L [facility] Comment:Slight Hemolysis.Int erpret result with caution. Alanine Aminotransferase 11 0 - 31 U/L [facility] Total Protein 7.6 6.5 - 8.0 g/dL [facility] Albumin Level 4.3 3.5 - 5.0 g/dL [facility] Alkaline Phosphatase 111 39 - 117 U/L [facility] Blood Venous blood specimen / Unknown 12/13/2024 2:34 PM EDT 12/13/2024 4:04 PM EDT us Stephenie Chappell MD LAB BLOOD ORDERABLES Final Result Performing Organization Address [facility] Co de Phone Number [facility] [address] [place] [phone] * Influenza B (ID NOW Rapid Molecular) (12/13/2024 1:51 PM EDT) Influenza B Negative Negative, Indeterminate [facility] Swab 12/13/2024 1:51 PM EDT us Stephenie Chappell MD POINT OF CARE TEST EN TER/EDIT ORDERABLES Final Result Performing Organization Address [facility] Number [facility] [address] [place] [phone] * Influenza A (ID NOW Rapid Molecular) (12/13/2024 1:51 PM EDT) Pathologist [facility] Influenza A Negative Negative, Indeterminate [facility] Swab 12/13/2024 1:51 PM EDT us Stephenie Chappell MD POINT OF CARE TEST EN TER/EDIT ORDERABLES Final Result Performing Organization Address [facility] Co de Phone Number [facility] [address] [place] [phone] * POCT Rapid COVID Ag (12/13/2024 1:51 PM EDT) Rapid COVID Ag Negative [facility] Swab 12/13/2024 1:51 PM EDT us Stephenie Chappell MD POINT OF CARE TEST EN TER/EDIT ORDERABLES Final Result Performing Organization Address [facility] Co de Phone Number [facility] [address] [place] [address] [phone] * Hepatic Function Panel (09/29/2024 9:15 AM EDT) Bilirubin, Total 0.3 0.0 - 1.0 mg/dL [facility] Bilirubin, Direct 0.1 0.0 - 0.5 mg/dL [facility] Aspartate Amino Transferase 21 5 - 31 U/L [facility] Alanine Aminotransferase 15 0 - 31 U/L [facility] Total Protein 7.1 6.5 - 8.0 g/dL [facility] Albumin Level 4.3 3.5 - 5.0 g/dL [facility] Alkaline Phosphatase 76 39 - 117 U/L [facility] Blood Venous blood specimen / Unknown 09/29/2024 9:15 AM EDT 09/29/2024 2:53 PM EDT us Jackie Abdi MD LAB BLOOD ORDERABLES Final Resul t [facility] [address] [place] [phone] * (ABNORMAL) Lipid Panel, Standard (09/29/2024 9:15 AM EDT) Triglycerides 132 <150 mg/dL [facility] Comment:Desirable Triglyceri de: less than 150 mg/dLBorderline High Triglyceride 150-199 mg/dLHigh Triglyceride: 200-499 mg/dLVery High Triglyceride: greater than or equal to 5OO mg/dL Cholesterol 157 <200 mg/dL [facility] Comment:Desirable Cholestero l: less than 200 mg/dLBorderline High Cholesterol: 200-239 mg/dLHigh Cholesterol: greater than 239 mg/dL LDL Cholesterol Calculated 100(H) <100 mg/dL [facility] Comment:Desirable LDL: less than 100 mg/dLNear Optimal/Above Optimal LDL: 110- 129 mg/dLBorderline High LDL: 130-159 mg/dLHigh LDL: 160-189 mg/dLVery High LDL: greater than or equal to 190 mg/dL HDL Cholesterol 31(L) >40 mg/dL [facility] Comment:Desirable HDL: great er than 40 mg/dL Note: This HDL assay may give artificially low results in patients with liver disease. Blood Venous blood specimen / Unknown 09/29/2024 9:15 AM EDT 09/29/2024 2:53 PM EDT Jackie Abdi MD LAB BLOOD ORDERABLES Final Resul t Performing Organization Address [facility]/ZIP Co de Phone Number [facility] [address] [place] [phone] * (ABNORMAL) Basic Metabolic Panel (09/29/2024 9:15 AM EDT) Sodium 143 135 - 145 mmol/L [facility] Potassium 3.3 3.3 - 5.1 mmol/L [facility] Chloride 112(H) 96 - 108 mmol/L [facility] Carbon Dioxide 23 22 - 29 mmol/L [facility] Anion Gap 11(L) 12 - 20 [facility] Urea Nitrogen (BUN) 11 9 - 16 mg/dL [facility] Creatinine, Serum 0.90 0.5 - 1.4 mg/dL [facility] Estimated Glomerular Filt Rate >60 [facility] Comment:Chronic Kidney Disea se: Estimated GFR < 60 mL/min/1.12i9Mqvfei Kidney Disease: Estimated GFR < 15 mL/min/1.73m2 Glucose 91 60 - 115 mg/dL [facility] Calcium 8.7 8.4 - 10.2 mg/dL [facility] Blood Venous blood specimen / Unknown 09/29/2024 9:15 AM EDT 09/29/2024 2:53 PM EDT Jackie Abdi MD LAB BLOOD ORDERABLES Final Resul t Performing Organization Address [facility]/ZIP Co de Phone Number [facility] [address] [place] [address] [phone] * ECG 12 lead (09/23/2024 10:59 AM EDT) Historical Provider ECG ORDERABLES Final Res ult * (ABNORMAL) POCT Urinalysis (09/23/2024 10:46 AM EDT) Color, UA Yellow Clarity, UA Cloudy Glucose, UA Negative Bilirubin, UA Negative Ketones, UA Negative Spec Grav, UA 1.025 Blood, UA Positive(A) Negative, None Detected Comment:small pH, UA 6.0 Protein, UA Trace Urobilinogen, UA 0.2 Leukocytes, UA Negative Negative, Rare, Trace Nitrite, UA Negative Negative, None Detected Appearance, UA cloudy QC Media Lot # [id number] Lot# Expiration Date Urine 09/23/2024 10:4 6 AM EDT Jackie Abdi MD POINT OF CARE TEST ENTER/EDIT OR DERABLES Final Result * XR UGI single contrast w KUB (09/20/2024 11:05 AM EDT) Anatomical Region Laterality Modality Abdomen Radiographic Janice ging Historical Provider IMG XR PROCEDURES Final R esult * BI Mammogram Screening Tomosynthesis Bilateral (06/03/2024 9:45 AM EST) Anatomical Region Laterality Modality Breast Bilateral Mammography 06/03/2024 9:45 AM EST Narrative 06/12/2024 4:59 PM EDT [facility] [address] [place] [address] Mammography Report Signed Patient: Sade Fraga MR#: [id number] 4 : 1970 Acct:[id number] Age/Sex: 54 / F ADM Date: 06/03/24 Loc: HO.MAMMO Attending Dr: Pola Maldonado CNM Ordering Physician: POLA MALDONADO CNM Results: 1 Negative Date of Service: 06/03/24 Follow Up: 1 Year From Orig inal Mammogram Procedure(s): MM tomosynthesis screening BI Accession Number(s): [id number] cc: Jackie Abdi MD; POLA MALDONADO CNM [...] 06/12/24 1656 DD/ 0945 TD/TT: 06/03/24 1010 Accredited Pharmacy Technician: Procedure Note Donotuseinterpreter, Image - 06/12/2024 [facility] [address] [place], [place] [address] Mammography Report Signed Patient: Sade Fraga#: [id number] 4 : 1970Acct:[id number] Age/Sex: 54 / FADM Date: 06/03/24 Loc: HO.MAMMO Attending Dr: Pola Maldonado CNM Ordering Physician: POLA MALDONADOesults: 1 Negative Date of Service: 06/03/24Follow Up: 1 Year From Orig inal Mammogram Procedure(s): MM tomosynthesis screening BI Accession Number(s): [id number] cc: Jackie Abdi MD; POLA MALDONADO CNM [...] 06/12/24 1656 DD/ 0945 TD/TT: 06/03/24 1010 Accredited Pharmacy Technician: Pola Maldonado CNM IMG BI PROCEDURES Final R esult * Cologuard?? colon cancer screening (02/23/2023 10:44 AM EST) Cologuard Result Negative Negative 03/01/20 3:14 PM EST [facility] (CLIA #:[id number]) Comment: NEGATIVE TEST RESULT. A negative Cologuard result indicates a low likelihood that a colorectal cancer (CRC) or advanced adenoma (adenomatous polyps with more advanced pre-malignant features) is present. The chance that a person with a negative Cologuard test has a colorectal cancer is less than 1 in 1500 (negative predictive value >99.9%) or has an advanced adenoma is less than 5.3% (negative predictive value 94.7%). These data are based on a prospective cross-sectional study of 10,000 individuals at average risk for colorectal cancer who were screened with both Cologuard and colonoscopy. (Javi Frank al, N Engl J Med 2014;370(14):8820-4573) The normal value (reference range) for this assay is negative. COLOGUARD RE-SCREENING RECOMMENDATION: Periodic colorectal cancer screening is an important part of preventive healthcare for asymptomatic individuals at average risk for colorectal cancer. Following a negative Cologuard result, the [place] [employer] Society and U.S. Multi-Society Task Force screening guidelines recommend a Cologuard re-screening interval of 3 years. References: [place] [employer] Guideline for Colorectal Cancer Screening: https://www.cancer.org/cancer/ydjip-elbdlr-yhrheg/nxrysrcit-cwdmqlkwh-qyyroxe/ac s-rec ommendations.html.; Bean DK, Mitchell GAO, Dank WeberK, Colorectal Cancer Screening: Recommendations for Physicians and Patients from the U.S. Multi-Society Task Force on Colorectal Cancer Screening , Am J Gastroenterology 2017; 112:4534-4059. TEST DESCRIPTION: Composite algorithmic analysis of stool DNA-biomarkers with hemoglobin immunoassay. Quantitative values of individual biomarkers are not [...] screened with both Cologuard and colonoscopy. (Javi Castro, N Engl J Med 2014;370(14):7197-7989.) Cologuard may produce a false negative or false positive result (no colorectal cancer or precancerous polyp present at colonoscopy follow up). A negative Cologuard test result does not guarantee the absence of CRC or advanced adenoma (pre-cancer). The current Cologuard screening interval is every 3 years. ([place] [employer] and U.S. Multi-Society Task Force). Cologuard performance data in a 10,000 patient pivotal study using colonoscopy as the reference method can be accessed at the following location: www.[employer]Engine/results. Additional description of the Cologuard test process, warnings and precautions can be found at [email or web address]. Stool specimen (specimen) 02/23/2023 10:44 AM EST 02/24/2023 1:44 PM EST Jackie Abdi MD LAB MOLECULAR DIAGNOSTICS ORDERA BLES Final Result [facility] (CLIA #:[id number]) [place] [address], * Thinprep TIS PAP And HPV mRNA E6/E7, CT/NG, TRICH (04/08/2022 4:21 PM EST) Clinical Information: SCREENING, PELVIC PAIN [employer] LMP: NONE GIVEN [employer] [facility] Prev. PAP: NONE GIVEN [employer] [facility] Prev. BX: NONE GIVEN [employer] [facility] SOURCE: None given [employer] [facility] Statement Of Adequacy: [employer] Comment: Satisfactory for evaluation. Endocervical/transformation zone component present. Age and/or menstrual status not provided Interpretation/Re sult: Negative for intraepithelial lesion or malignancy. [employer] COMMENT: This Pap test has been evaluated with computer assisted technology. [employer] Manager Of Selection And Assessment: Jose [employer] Comment: DMM, CT(ASCP) CT screening location: [place] [address] (Always Message) [email or web address] [facility] Comment: EXPLANATORY NOTE: The Pap is a [...] HPV nRNA E6/E7 Not Detected Not Detected [employer] Comment: Methodology: Oreman-Mediated Amplification This assay detects E6/E7 viral messenger RNA (mRNA) from 14 high-risk HPV types (16,18,31,33,35,39,45,51,52,56,58,59,66,68). Cervical sources are required for HPV testing. If a vaginal source from a patient who has had a total hysterectomy with removal of cervix was submitted, please contact the testing laboratory for alternative testing options. For additional information, please refer to [email or web address]/OBU827x6 (This link if provided for information/ educational purposes only.) Chlamydia trachomatis RNA, TMA, Urogenital NOT DETECTED NOT DETECTED [employer] Neisseria gonorrhoeae RNA, TMA, Urogenital NOT DETECTED NOT DETECTED [employer] (Always Message) [facility] [place] [facility] 911 Comment: The analytical performance characteristics of this assay, when used to test SurePath(TM) specimens have been determined by [email or web address]. The modifications have not been cleared or approved by the FDA. This assay has been validated pursuant to the CLIA regulations and is used for clinical purposes. For additional information, please refer to https://PlayyOn.Day Zero Project/faq/TAU554 (This link is being provided for information/ educational purposes only.) Trichomonas vaginalis, QL, TMA, PAP Vial NOT DETECTED NOT DETECTED [employer] Comment: The analytical performance characteristics of this assay have been determined by [email or web address]. The modifications have not been cleared or approved by the FDA. This assay has been validated pursuant to the CLIA regulations and is used for clinical purposes. For additional information, please refer to http://PlayyOn.Day Zero Project/ faq/Trichomonastma (This link is being provided for information/ educational purposes only.) 04/08/2022 4:21 PM EST 04/09/2022 11:04 AM EST Narrative [facility] - 04/14/2022 10:42 AM EST FASTING: UNKNOWN Pola Maldonado [facility] LAB PATHOLOGY ORDERABLES Final Result [facility] [address], [address], [place] [address] [email or web address] [facility] [address], ([address]) [place] [address] * HEPATITIS C AB W/REFL TO HCV RNA, QN, PCR (12/12/2020 10:12 AM EDT) HEPATITIS C ANTIBODY NON-REACT COLE NON-REACT COLE [facility] INDEX 0.09 <1.00 [facility] Comment: HCV antibody was non-reactive. There is no laboratory evidence of HCV infection. In most cases, no further action is required. However, if recent HCV exposure is suspected, a test for HCV RNA (test code 87766) is suggested. For additional information please refer to http://education.Day Zero Project/faq/QNF66t9 (This link is being provided for informational/ educational purposes only.) 12/12/2020 10:1 2 AM EDT Hiren Garcia MD HISTORICAL/NON ORDERABLE LABS Fi nal Result [facility] [address] * HIV 1/2 ANTIGEN/ANTIBODY,FOURTH GENERATION W/RFL (12/12/2020 10:12 AM EDT) HIV-1/2 ANTIGEN AND ANTIBODIES, 4TH GENERATION W/ REFLEX NON-REACT COLE NON-REACT COLE [facility] Comment: HIV-1 antigen and HIV-1/HIV-2 antibodies were not detected. There is no laboratory evidence of HIV infection. PLEASE NOTE: This information has been disclosed to you from records whose confidentiality may be protected by state law. If your state requires such protection, then the state law prohibits you from making any further disclosure of the information without the specific written consent of the person to whom it pertains, or as otherwise permitted by law. A general authorization for the release of medical or other information is NOT sufficient for this purpose. For additional information please refer to http://education.Day Zero Project/faq/FIU903 (This link is being provided for informational/ educational purposes only.) The performance of this assay has not been clinically validated in patients less than 2 years old. 12/12/2020 10:1 2 AM EDT us Hiren Garcia MD LAB BLOOD ORDERABLES Final Resul t [facility] [address] from Last 3 Months or Most Recently Relevant to Health Maintenance Insurance C[facility] MEDICAID STAND [place] [address] Care Teams Sales Development Consultant Relationship Specialty Start Date End Date Jackie Abdi MD [address] [place] [id number] PCP - General Family Medicine 04/29/13
[2024-12-15 05:54] LABS: HBS Num1 > 1000.00 mIU/mL (0-7.99); HBc Num1 0.08 S/CO (0.00-0.79); HBsAGNum1 0.42 S/CO (0.00-0.99); HIV Num 1 0.04 S/CO (0.00-0.99); Hepatitis A Antibody IgM 0.22 Index (0-0.79); Hepatitis B Surface Antigen Negative (Negative); ~HepC Num1 0.12 S/CO (0.00-0.79); ~Hepatitis A Antibody IgM Nonreactive (Nonreactive); ~Hepatitis B Surface Antibody REACTIVE (Nonreactive); ~Hepatitis C Antibody Nonreactive (Nonreactive)
[2024-12-15 18:28] LABS: Anti Nuclear Antibody Pattern Nuclear, Homogeneous; Anti Nuclear Antibody Screen POSITIVE (NEGATIVE); Anti Nuclear Antibody Titer 1:80 titer
== END 2024-12-13 14:15 | disposition home or self-care (01) ==
LOC: HO.HHCX 14:14
PROVIDERS: Visit Provider Internal Medicine
DX: M54.2 Cervicalgia (principal); R63.4 Abnormal weight loss
CPT/HCPCS: 36415; 72050; 80053; 83036; 84443; 85025; 86038; 86039; 86704; 86706; 86709; 86803; 87340; 87389

== ENCOUNTER → 2024-12-13 14:14 | Outpatient (BNV) | payer MEDICAID, SELFPAY | PROVIDERS: Visit Provider Radiology Diagnostic Radiology | DX: M47.812 Spondylosis without myelopathy or radiculopathy, cervical region (principal) | CPT/HCPCS: 72050 ==

== ENCOUNTER 2024-12-13 14:26 | Outpatient (REF) | payer MEDICAID, SELFPAY | END 2024-12-13 14:27 | disposition home or self-care (01) | LOC: HO.HHCL 14:26 | PROVIDERS: PCP Internal Medicine; Visit Provider Internal Medicine | DX: Z13.89 Encounter for screening for other disorder (principal) ==

== ENCOUNTER 2025-01-02 14:55 | Outpatient (RCR) | payer MEDICAID, SELFPAY ==
--- NOTE | 2024-11-08 13:05 | MHC.PT.EP ---
[facility] [place] Office [place] [facility] [place] [facility] [address] Clementina Alcala 140 [facility] [phone] F: [phone] F: [phone] F: [phone] F: [phone] Physical Therapy Plan of Care Date of Evaluation: 11/08/24 Date of Surgery: 10/12/24 Diagnosis: status post rotator cuff repair of the subscap and supraspinatus with collagen patch performed on 10/12/[address] Cerrato Assessment: Pt is a pleasant and motivated 54yo F who presents to PT s/p right rotator cuff repair of the subscap and supraspinatus with collagen patch performed on 10/12/[address] Cerrato. She is right hand dominant. She presents to PT with expected impairments in pain, decreased ROM, decreased strength, soft tissue restrictions, and impaired posture. She is limited functionally by R UE use. She is an excellent candidate for skilled PT in order to address current impairments to facilitate return to PLOF. She is recommended to be seen 2x/week 8 weeks in order to progress per protocol and facilitate return to PLOF Frequency and Duration: The patient will be seen 2x/week for 8 weeks Short Term Goals: Pt will be I with HEP to promote self management of symptoms Pt will improve R shoulder PROM flexion to 100 deg Halfway Goals: Pt will achieve full ROM all planes of R shoulder (per protocol) to assist with overhead ADLs without compensation Pt will achieve full strength all planes of R shoulder (per protocol) to assist with lifting and reaching Pt will demonstrate improvements in function as evidenced by statistically significant improvement in SPADI outcome measure Treatment Plan: Modalities to reduce pain, spasms and effusion. Manual therapy to restore motion and function. Therapeutic exercise to improve strength and flexibility. Neuromuscular re-education for posture and balance. Therapeutic activities to return to functional activities of daily living. Electronically signed by: Marielos Rivera, PT, DPT Please sign and return to therapist. Thank you for your referral.
--- NOTE | 2025-01-25 11:42 | MHC.PT.DC ---
[facility] [place] Office [place] Office [place] Office [address] Clementina [place] [address] [phone] F: [phone] F: [phone] F: [phone] F: [phone] Physical Therapy Discharge Report Diagnosis: status post rotator cuff repair of the subscap and supraspinatus with collagen patch performed on 10/12/[address] Cerrato Date of Surgery: 10/12/24 Date of Evaluation: 11/08/24 Date of Discharge: 01/25/25 Treatments to Date: 10 Cancellations to Date: 3 No Shows to Date: 9 Discharge Status: Visit Non-compliance Discharge Summary: Pt was seen for skilled PT from 11/08/24-01/02/25. Her last attended appointment was 01/02/25. She was initially making excellent progress with PT and was improving her ROM and strength. She has had extremely poor attendance and has had 9 no show appointments since SOC. She followed up with ortho 01/19/25. She is being D/C from skilled PT per [facility] attendance policy and visit non compliance. Pt current level of function unknown at this time Electronically signed by: Marielos Cullen, PT, DPT Please sign and return to therapist. Thank you for your referral.
== END 2025-01-25 11:41 | disposition home or self-care (01) ==
LOC: HO.PT 14:55
PROVIDERS: PCP Student in an Organized Health Care Education/Training Program; Visit Provider Physician Assistant
DX: M25.511 Pain in right shoulder (principal); Z98.890 Other specified postprocedural states
CPT/HCPCS: 97110; 97140; 97162; 97530

== ENCOUNTER 2025-01-19 10:06 | Outpatient (AMB) | payer MEDICAID, SELFPAY ==
--- OUTSIDE RECORDS SUMMARY | 2025-01-17 14:40 | XMS_ITS | Encounter Summary ---
Author Organization [employer] Address [address] [facility] 7 [place] [address] Care Team Providers Care Roll Repairer Name Role Phone Jackie Abdi MD Primary Care Provider [phone] Reason for Referral * Consultation (Routine) - Closed Specialty Diagnoses / Procedures Referred By Contac t Referred To Contact Physical Therapy Diagnoses Neck pain Ronnell Sanderson MD [address] [place] [address] Phone: tel: fax: Physical Therapy, [facility] [address] [place], [place] Phone: tel: fax: Referral ID Status Reason Start Date Expiration Date V isits Requested Visits Authorized [id number] Closed Specialty Services Required 01/17/2025 01/17/2026 1 1 Reason for Visit * Reason Comments Weight Loss Neck Pain Anxiety Encounter Details Date Type Department Care Team (Latest Contact Info) Description 01/17/2025 2:40 PM EDT Office Visit [facility]EDS [address] [place], [place] [phone] Ronnell Sanderson MD [address] [place], [place] [phone] Weight loss, unintentional (Primary Dx); Neck pain; Anxiety; Other insomnia Social History Tobacco Use Types Packs/Day Years [...] Sign Reading Time Taken Comments Blood Pressure 126/81 01/17/2025 2:56 PM EDT Pulse 85 01/17/2025 2:56 PM EDT Temperature - - Respiratory Rate 19 01/17/2025 2:56 PM EDT Oxygen Saturation 98% 01/17/2025 2:56 PM EDT Inhaled Oxygen Concentration - - Weight 56.2 kg (124 lb) 01/17/2025 2:56 PM EDT Height 149.9 cm (4' 11 ) 01/17/2025 2:56 PM EDT Body Mass Index 25.04 01/17/2025 2:56 PM EDT documented in this encounter Progress Notes * Ronnell Sanderson MD - 01/17/2025 2:40 PM EDT SUBJECTIVE Sade Fraga is a 54 y.o. female who presents for Weight Loss, Neck Pain, and Anxiety. Neck Pain Pertinent negatives include no photophobia. Anxiety Patient reports no shortness of breath. Sade Fraga, 54-year-old female - Unintentional weight loss since November 2024, from 139 lbs on September 23, 2024 to 124 lbs on January 17, 2025 - Poor appetite, difficulty eating due to history of gastric bypass surgery, vomiting when attempting to eat more - Severe anxiety ongoing for almost a month - Dizziness and insomnia, sleeping only a few hours per night, onset approximately 3 weeks ago - Neck pain with cracking sensation on the left side, exacerbated by turning head, onset 2 weeks ago, associated with pain when popping - Reports prior neck evaluation and lab work at [facility], no follow-up received - Currently taking thyroid hormone Problem List[1] Allergies[2] Medications Ordered Prior to Encounter[3] Review of Systems Constitutional: Negative for appetite change, chills and diaphoresis. Eyes: Negative for photophobia, pain and redness. Respiratory: Negative for cough, shortness of breath and stridor. Cardiovascular: Negative for leg swelling. Gastrointestinal: Decreased appetite Musculoskeletal: Positive for neck pain. OBJECTIVE Vitals: 01/17/25 1456 BP: 126/81 BP Location: Left arm Patient Position: Sitting BP Cuff Size: Adult Pulse: 85 Resp: 19 SpO2: 98% Weight: 124 lb (56.2 kg) Height: 4' 11 (1.499 m) Physical Exam Constitutional: General: She is not in acute distress. Appearance: Normal appearance. She is not ill-appearing, toxic-appearing or diaphoretic. Neck: Comments: Tenderness to palpation of the left trapezius muscle Cardiovascular: Rate and Rhythm: Normal rate. Pulmonary: Effort: Pulmonary effort is normal. Musculoskeletal: Cervical back: Pain with movement present. Neurological: Mental Status: She is alert. Assessment/Plan Assessment/Plan Diagnoses and all orders for this visit: Weight loss, unintentional - Comprehensive Metabolic Panel; Future - Helicobacter pylori Antigen, EIA, Stool; Future - TSH W/Reflex to FT4; Future - CBC auto differential; Future Neck pain - XR Cervical Spine 2-3 Views; Future - Diclofenac Sodium 1 % gel; To apply to the affected area 3 times a day - Referral to Physical Therapy; Future Anxiety - mirtazapine (Remeron) 7.5 MG tablet; Take 1 tablet (7.5 mg) by mouth at bedtime. Other insomnia - mirtazapine (Remeron) 7.5 MG tablet; Take 1 tablet (7.5 mg) by mouth at bedtime. Weight loss, unintentional: - Unintentional weight loss noted from September 23, 2024 (139 lbs) to January 17, 2025 (124 lbs). Differential diagnosis includes thyroid dysfunction, protein deficiency, and H. pylori infection. - Ordered thyroid function tests, protein level, and stool test for H. pylori. Recommended intake of calorie-dense foods, including nuts if tolerated. Will reassess based on test results and considerfurther evaluation if initial workup is unremarkable. Neck pain: - Neck pain with cracking and tenderness, possibly due to muscle spasm. - Ordered cervical spine X-ray. Prescribed topical Tylenol gel to apply three times daily and oral Tylenol as needed. Recommended physical therapy for muscle spasm. Anxiety: - Anxiety present and discussed as a contributing factor to current symptoms. - Prescribed mirtazapine to be taken at bedtime. Confirmed ongoing therapy appointment with [facility]. Advised follow-up in 4 to 6 weeks to monitor response to treatment. Other insomnia: - Insomnia associated with anxiety. - Prescribed mirtazapine at bedtime to address insomnia and anxiety. This note was drafted using [employer] ([employer]) technology. The patient/patient's guardian has been informed and has consented to the use of this technology: Yes [1] Patient Active Problem List Diagnosis Ventricular septal defect Low back pain Straining during bowel movements Stage 3 chronic kidney disease (CMS/HCC) (HCC) Right upper quadrant abdominal pain Pain in unspecified knee Open fracture of tibial plateau Myofascial pain Knee pain Intracranial subdural hematoma (CMS/HCC) (HCC) Intermittent asthma Idiopathic edema Hypokalemia History of cholecystectomy Gastroesophageal reflux disease Edema of lower extremity Chronic pelvic pain in female Acute renal failure syndrome Abnormal liver enzymes Abdominal bloating Mid-back pain, acute Dysuria Vertigo Straining with stools Chronic RUQ pain Valgus deformity, not elsewhere classified, left knee Status post total knee replacement, 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 [...] (25 mcg) by mouth before breakfast. 30 [id number] loratadine (Claritin) 10 MG tablet Take 1 [...] morning. omeprazole (PriLOSEC) [address] capsule TAKE 1 CAPSULE(40 MG) BY MOUTH BEFORE BREAKFAST. DO NOT CRUSH OR CHEW 90 capsule 3 SUMAtriptan (Imitrex) 50 MG [...] prior to visit. documented in this encounter Plan of Treatment Upcoming Encounters Date Type Department Care Team (Late st Contact Info) Description 03/03/2025 1:00 PM EST Office Visit [facility] MED & PEDS [address] [place], [place] [phone] JacobsonMirta, LEARNING SOLUTIONS SPECIALIST [address] [place] [address] Scheduled Orders Name Type Priority Associated Diagnoses Orde r Schedule Comprehensive Metabolic Panel Lab Routine Weight loss, unintentional Expected: 01/17/2025 (Approximate), Expires: 01/17/2026 Helicobacter pylori Antigen, EIA, Stool Lab Routine Weight loss, unintentional Expected: 01/17/2025, Expires: 01/17/2026 TSH W/Reflex to FT4 Lab Routine Weight loss, unintentional Expected: 01/17/2025 (Approximate), Expires: 01/17/2026 CBC auto differential Lab Routine Weight loss, unintentional Expected: 01/17/2025 (Approximate), Expires: 01/17/2026 XR Cervical Spine 2-3 Views Imaging Routine Neck pain Expected: 01/17/2025, Expires: 01/17/2026 Scheduled Referrals Name Type Priority Associated Diagnoses Orde r Schedule Referral to Physical Therapy Outpatient Referral Routine Neck pain Expected: 01/17/2025 (Approximate), Expires: 01/17/2026 documented as of this encounter Visit Diagnoses Diagnosis Weight loss, unintentional- Primary Loss of weight Neck pain Cervicalgia Anxiety Anxiety state, unspecified Other insomnia documented in this encounter Additional Health Concerns Assessment Noted Time PHQ-9 Depression Total Score: 14 025 11:23 AM EST documented as of this encounter Care Teams Roll Repairer Relationship Specialty Start Date End Date Jackie Abdi MD [address] [place] [address] PCP - General Family Medicine 04/29/13 documented as of this encounter
[2025-01-19 10:08] VITALS: BMI 28.9
--- NOTE | 2025-01-19 10:08 | MHC.OFFVIS ---
Vital Signs 01/19/25 10:08 Height 4 ft 11 in Weight 143 lb BMI 28.9 Intake Visit Reasons: OV-RT RTC Repair 10/12/24 NE Intake Note: Sade is a 54 year old right hand dominant female who presents today for a post op appointment about 3 months s/p Right RTC repair, Supra and subscap 10/12/24 NE. She continues to work with [facility]. Allergies sulfamethoxazole (From Bactrim) Allergy (Intermediate, Verified 10/18/24 14:43) Facial Swelling trimethoprim (From Bactrim) Allergy (Intermediate, Verified 10/18/24 14:43) Facial Swelling HPI HPI OV-RT RTC Repair 10/12/24 NE: Details: Sade is a 54 year old right hand dominant female who presents today for a post op appointment about 3 months s/p Right RTC repair, Supra and subscap 10/12/24 NE. She continues to work with [facility]. She has anterior shoulder pain but overall her motion is good and she is doing PT. [facility] Medical History VSD (ventricular septal defect) Infection associated with internal right knee prosthesis Cellulitis History of pulmonary embolism History of DVT (deep vein thrombosis) Post-traumatic osteoarthritis of right knee Sleep apnea High cholesterol Asthma HTN (hypertension) Surgical History Status post total knee replacement, right History of bunionectomy of both great toes Hx of gastric bypass History of laparoscopic cholecystectomy History of H/O right knee surgery Family History Father Heart problem Mother Heart problem Social History Household Members: Spouse Housing: House Are you a primary lawn care technician to a significant other at home: No Do you presently have visiting nurse or other home services: No Alcohol intake: never Patient Tobacco Use Status: Never used Tobacco service: No Current occupational status: unemployed and disabled Current occupation: rt handed. Physical Exam Exam Exam: 35/90/130/hip pocket Negative empty can negative belly press Vital Signs: BMI result Body Mass Index 28.9 Extrem Other: Incision clean dry and intact Passive abduction to 70 degrees External rotation to 0 Assessment & Plan Assessment & Plan (1) S/P right rotator cuff repair: Code(s): Z98.890 - Other specified postprocedural states Category: Surgical Plan: Cecy is doing very well 3 months status post supraspinatus and subscapularis repair. She does have some anterior pain but on exam she has great motion and good strength. Continue gentle physical therapy exercises. Avoid heavy lifting. She may follow up to see me in 3 months. Coding Level of Care Code Global (05239) Diagnoses S/P right rotator cuff repair Z98.890
--- OUTSIDE RECORDS SUMMARY | 2025-01-19 11:53 | XMS_ITS | Encounter Summary ---
Author Organization [employer] Address [address] 7[address] [place] [address] Care Team Providers Care Business Services Administrator Name Role Phone Jackie Abdi MD Primary Care Provider [phone] Encounter Details Date Type Department Care Team (Late st Contact Info) Description 09/26/2024 Orders Only [facility] MED & PEDS [address] [place], [place] [phone] Provider, MD Sagar Social History Tobacco Use [...] Description 03/03/2025 1:00 PM EST Office Visit [facility] MED & PEDS [address] [place], [place] [phone] Mirta Jacobson CNP [address] [place], [place] [phone] documented as of this encounter Procedures Procedure [...] as of this encounter Care Teams Business Services Administrator Relationship Specialty Start Date End Date Jackie Abdi MD [address] [place] [id number] PCP - General Family Medicine 04/29/13 documented as of this encounter
--- OUTSIDE RECORDS SUMMARY | 2025-01-19 11:53 | XMS_ITS | Clinical Summary ---
Author Organization [facility] Address [address] [place] [address] Care Team Providers Care Marine Steward Name Role Phone Jackie Abdi MD Primary Care Provider [phone] Allergies No known active allergies Medications omeprazole [...] range 08/06/2021 Low back pain 08/06/2021 Subdural intracranial hematoma 08/06/2021 Sleep deprivation 08/06/2021 Myofascial pain [...] Insurance Medicaid [place] Care Teams Marine Steward Relationship Specialty Start Date End Date Jackie Abdi MD [address] [place] [id number] PCP - General 04/09/20
--- OUTSIDE RECORDS SUMMARY | 2025-01-19 11:53 | XMS_ITS | Encounter Summary ---
Author Organization [employer] [facility] Address [address] [facility] 7t [place] [address] Care Team Providers Care Director Of Neurology Name Role Phone Jackie Abdi MD Primary Care Provider [phone] Encounter Details Date Type Department Care Team (Late st Contact Info) Description 09/20/2024 Orders Only [facility] [address] [place] [address] Provider, MD Sagar Social History Tobacco Use [...] Description 03/03/2025 1:00 PM EST Office Visit [facility] MED & PEDS [address] [place], [place] [phone] Mirta Jacobson, OPTICAL SALES ASSOCIATE [address] [place], [place] [phone] documented as of this encounter Procedures Procedure [...] of this encounter Care Teams Director Of Neurology Relationship Specialty Start Date End Date Jackie Abdi MD [address] [place] [id number] PCP - General Family Medicine 04/29/13 documented as of this encounter
--- OUTSIDE RECORDS SUMMARY | 2025-01-19 11:53 | XMS_ITS | Clinical Summary ---
Author Organization [address] [facility] Address [address] [place] [address] Phone Care Team Providers Care Cork Wirer Name Role Phone Jackie Abdi MD Primary Care Provider [phone] Allergies Active Allergy Reactions Criticality Noted Date [...] ase with esophagitis without hemorrhage 05/03/2020 Immunizations Immunization Administration Dates Next Due Tdap Tetanus diptheria acell ular pertussis (Boostrix; Adacel) 7yo and older 01/19/2012 Surgical History Surgery Date Site/Laterality Comments OTHER SURGICAL HISTORY PROCEDURE: MN ARTHRS AID TIBIAL FRACTURE PROXIMAL UNICONDYLAR CHOLECYSTECTOMY PROCEDURE: MN LAPAROSCOPY SURG CHOLECYSTECTOMY BUNIONECTOMY PROCEDURE: BUNION SURGERY, SIMPLE REMOVAL SECTION PROCEDURE: MN DELIVERY ONLY Medical History Medical History Date Comments Hypercholesteremia DX:Hyperchole steremia Class 2 severe obesity due t o excess calories with serious comorbidity and body mass index (BMI) of 35.0 to 35.9 in adult 05/03/2020 DX:Class 2 severe obesity du e to excess calories with serious comorbidity and body mass index (BMI) of 35.0 to 35.9 in adult (HCC) Gastroesophageal reflux dise ase with esophagitis without [...] Care Team (Late st Contact Info) Description 01/31/2025 10:00 AM EST Office Visit Endocrinology - [place] [address] [place] [address] Luis Enrique Orellana MD [address] [place] [address] 02/07/2025 1:45 PM EST Office Visit Bariatric Surgery - [address] [place] [phone] Aleksandar Heaton MD [facility] [place] [address] Health Maintenance Due Date Last Done Comments Breast Cancer Screening 1972 Cervical Cancer Screening: Pap Smear 1993 DTaP,Tdap,and Td Vaccines (2 - Td or Tdap) 01/18/2022 01/19/2012 Social Influencers of Health Screening 03/02/2022 RSV Immunization Adult Patients (1 - Risk 50-74 years 1-dose series) 2022 Depression Screening 03/30/2024 Influenza Vaccine (#1) 2024 [...] Procedure Name Priority Date/Time Associated Diagnosis Comments LIPID PANEL WITH REFLEX TO DIRECT LDL [...] mg/dL LAB CHEMISTRY METHOD 06/17/2024 2:[address] [facility] Triglycerides 155(H) 0 - 150 mg/dL LAB CHEMISTRY METHOD 06/17/2024 2:[address] [facility] HDL 48 >=40 mg/dL LAB CHEMISTRY METHOD 06/17/2024 2:[address] [facility] LDL Calculated 151(H) 0 - 100 mg/dL LAB CHEMISTRY METHOD 06/17/2024 2:[address] [facility] VLDL Cholesterol Cristofer 31 mg/dL LAB CHEMISTRY METHOD 06/17/2024 2:[address] [facility] Non HDL Chol. (LDL+VLDL) 182(H) <145 mg/dL LAB CHEMISTRY METHOD 06/17/2024 2:[address] [facility] Chol/HDL Ratio 4.8(H) 0.0 - 4.4 LAB CHEMISTRY METHOD 06/17/2024 2:[address] [facility] Blood Venous blood specimen / Unknown Venipuncture / Unknown 06/17/2024 10:12 AM EDT 06/17/2024 11:07 AM EDT us Aleksandar Heaton MD LAB BLOOD ORDERABLES Final R esult [facility] [address] [place] [address], * Hepatitis C Screening (09/22/2023) Hepatitis C Screening abstracted Historical Provider HEALTH MAINTENANCE Final Result from Last 3 Months or Most Recently Relevant to Health Maintenance Insurance MEDICAID - [place] Care Teams Cork Wirer Relationship Specialty Start Date End Date Jackie Abdi MD [address] [place] [id number] PCP - General 10/20/16
--- OUTSIDE RECORDS SUMMARY | 2025-01-19 11:53 | XMS_ITS | Encounter Summary ---
Author Organization [employer] Address [address] [facility] [address] [place] [address] Care Team Providers Care Frame Opener Name Role Phone Jackie Abdi MD Primary Care Provider [phone] Reason for Visit * Reason Onset Date Comments Appt materials 01/21/2023 Encounter Details Date Type Department Care Team (Late st Contact Info) Description 01/21/2023 Telephone C [facility] [address] [place] [address] Sharon Fernandez DMD Appt materials Social History [...] t he electric, gas, oil or water vIPtela threatened to shut off services in your [...] Description 03/03/2025 1:00 PM EST Office Visit [facility] MED & PEDS [address] [place] [address] Mirta Jacobson, JEFF [address] [place] [address] documented as of this encounter Visit Diagnoses Not on filedocumented in this encounter Additional Health Concerns Assessment Noted Time PHQ-9 Depression Total Score: 21 023 8:57 AM EDT documented as of this encounter Care Teams Frame Opener Relationship Specialty Start Date End Date Jackie Abdi MD [address] [place] [id number] PCP - General Family Medicine 04/29/13 documented as of this encounter
--- OUTSIDE RECORDS SUMMARY | 2025-01-19 11:53 | XMS_ITS | Encounter Summary ---
Author Organization [employer] Address [address] [place] [address] 7 [place] [address] Care Team Providers Care Commercial Diver Name Role Phone Jackie Abdi MD Primary Care Provider [phone] Encounter Details Date Type Department Care Team (Late st Contact Info) Description 03/18/2022 Orders Only [facility]EDS [address] [place] [address] Marielos Hooks LPN Social History Tobacco Use [...] Description 03/03/2025 1:00 PM EST Office Visit [facility] [address] [place] [address] Mirta Jacobson CURRICULUM DESIGNER 505 [place] [address] documented as of this encounter Visit Diagnoses Not on filedocumented in this encounter Care Teams Commercial Diver Relationship Specialty Start Date End Date Jackie Abdi MD [address] [place] [address] PCP - General Family Medicine 04/29/13 documented as of this encounter
--- OUTSIDE RECORDS SUMMARY | 2025-01-19 11:54 | XMS_ITS | Encounter Summary ---
Author Organization [email or web address] Address [address] [facility] 7t [place] [address] Care Team Providers Care County Attorney Name Role Phone Jackie Abdi MD Primary Care Provider [phone] Reason for Visit * Reason Onset Date Comments call back 06/03/2022 Encounter Details Date Type Department Care Team ([facility] st Contact Info) Description 06/03/2022 Telephone [facility] MEDICINE 230 [place] [address] Jackie Abdi MD [address] [place] [address] call back Social History Tobacco Use Types [...] a call back. Please contact pt at [phone] documented in this encounter Plan of Treatment Upcoming Encounters Date Type Department Care Team ([facility] st Contact Info) Description 03/03/2025 1:00 PM EST Office Visit [facility] MED & PEDS 505 [place] [address] Mirta Jacobson, JEFF 505 [place], [place] [phone] documented as of this encounter Visit Diagnoses Not on filedocumented in this encounter Care Teams County Attorney Relationship Specialty Start Date End Date Jackie Abdi MD [address] [place] [address] PCP - General Family Medicine 04/29/13 documented as of this encounter
--- OUTSIDE RECORDS SUMMARY | 2025-01-19 11:54 | XMS_ITS | Encounter Summary ---
Author Organization [employer] Address [address] [facility] 7t [place] [address] Care Team Providers Care Agronomy Research Manager Name Role Phone Jackie Abdi MD Primary Care Provider [phone] Encounter Details Date Type Department Care Team (Late st Contact Info) Description 08/25/2024 Orders Only [facility] [address] [place] [address] Provider, MD Sagar Social History Tobacco Use [...] Description 03/03/2025 1:00 PM EST Office Visit [facility] MED & PEDS 505 [place], [place] [phone] Mirta Jacobson, PIER HAND 505 [place], [place] [phone] documented as of this encounter Procedures Procedure [...] documented as of this encounter Care Teams Agronomy Research Manager Relationship Specialty Start Date End Date Jackie Abdi MD [address] [place] [address] PCP - General Family Medicine 04/29/13 documented as of this encounter
--- OUTSIDE RECORDS SUMMARY | 2025-01-19 11:54 | XMS_ITS | Encounter Summary ---
Author Organization [employer] Address [address] [place] [address] 7 [place] [address] Care Team Providers Care Health Program Manager Name Role Phone Jackie Abdi MD Primary Care Provider [phone] Reason for Visit * Reason Onset Date Comments Med Refill 12/05/2022 Encounter Details Date Type Department Care Team (Late st Contact Info) Description 12/05/2022 Refill [facility] MED & PEDS 505 [place] [address] Abby Duran MD Social History Tobacco Use [...] Description 03/03/2025 1:00 PM EST Office Visit [facility] MED & PEDS 505 [place] [address] Mirta Jacobson CNP 505 [place] [address] documented as of this encounter Visit Diagnoses Not on filedocumented in this encounter Additional Health Concerns Assessment Noted Time PHQ-9 Depression Total Score: 21 023 8:57 AM EDT documented as of this encounter Care Teams Health Program Manager Relationship Specialty Start Date End Date Jackie Abdi MD [address] [place] [address] PCP - General Family Medicine 04/29/13 documented as of this encounter
--- OUTSIDE RECORDS SUMMARY | 2025-01-19 11:54 | XMS_ITS | Encounter Summary ---
Author Organization [employer] Address [address] [facility] 7 [place] [address] Care Team Providers Care Pipe Organ Mechanic Name Role Phone Jackie Abdi MD Primary Care Provider [phone] Encounter Details Date Type Department Care Team (Late st Contact Info) Description 10/01/2022 Abstract [facility] MEDICINE 230 [place], [place] [phone] Jackie Abdi MD 505 [place], [place] [phone] Social History Tobacco Use Types Packs/Day Years [...] Description 03/03/2025 1:00 PM EST Office Visit [facility] CH[facility] MED & PEDS 505 [place] [address] Mirta Jacobson CNP 505 [place], [place] [phone] documented as of this encounter Visit Diagnoses Not on filedocumented in this encounter Additional Health Concerns Assessment Noted Time PHQ-9 Depression Total Score: 21 023 8:57 AM EDT documented as of this encounter Care Teams Pipe Organ Mechanic Relationship Specialty Start Date End Date Jackie Abdi MD 230 [place] [address] PCP - General Family Medicine 04/29/13 documented as of this encounter
--- OUTSIDE RECORDS SUMMARY | 2025-01-19 11:54 | XMS_ITS | Encounter Summary ---
Author Organization [employer] Address [address] [facility] 7 [place] [address] Care Team Providers Care Mine Car Mechanic Name Role Phone Jackie Abdi MD Primary Care Provider [phone] Reason for Visit * Reason Comments Med Refill Encounter Details Date Type Department Care Team (Late Contact Info) Description 09/18/2022 Refill [facility] MED & PEDS 505 [place] [address] Ronnell Sanderson MD 505 [place] [address] Mid-back pain, acute Social History Tobacco Use [...] Department Care Team (Late Contact Info) Description 03/03/2025 1:00 PM EST Office Visit [facility] CH[facility] MED & PEDS 505 [place] [address] Mirta Jacobson CNP 505 [place] [address] documented as of this encounter Visit Diagnoses Diagnosis Mid-back pain, acute documented in this encounter Additional Health Concerns Assessment Noted Time PHQ-9 Depression Total Score: 21 023 8:57 AM EDT documented as of this encounter Care Teams Mine Car Mechanic Relationship Specialty Start Date End Date Jackie Abdi MD [address] [place] [address] PCP - General Family Medicine 04/29/13 documented as of this encounter
--- OUTSIDE RECORDS SUMMARY | 2025-01-19 11:54 | XMS_ITS | Encounter Summary ---
Author Organization [employer] Address [address] [place] [address] 7 [place] [address] Care Team Providers Care Burrer Machine Name Role Phone Jackie Abdi MD Primary Care Provider [phone] Reason for Visit * Reason Onset Date Comments Med Refill 12/08/2022 Encounter Details Date Type Department Care Team (Late Contact Info) Description 12/08/2022 Refill [facility] MED & PEDS 505 [place] [address] Jackie Abdi MD 505 [place] [address] Social History Tobacco Use Types Packs/Day Years [...] Description 03/03/2025 1:00 PM EST Office Visit [facility] CH[facility] MED & PEDS 505 [place] [address] Mirta Jacobson CNP 505 [place] [address] documented as of this encounter Visit Diagnoses Not on filedocumented in this encounter Additional Health Concerns Assessment Noted Time PHQ-9 Depression Total Score: 21 023 8:57 AM EDT documented as of this encounter Care Teams Burrer Machine Relationship Specialty Start Date End Date Jackie Abdi MD [address] [place] [address] PCP - General Family Medicine 04/29/13 documented as of this encounter
--- OUTSIDE RECORDS SUMMARY | 2025-01-19 11:54 | XMS_ITS | Encounter Summary ---
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 Encounter Details Date Type Department Care Team (Late st Contact Info) Description 09/09/2023 Telephone [facility] AD[facility] DENTAL [address] [place] [address] Sharon Fernandez DMD shoe dyer Social History Tobacco Use Types Packs/Day Years [...] t he electric, gas, oil or water [employer] threatened to shut off services in your [...] Miscellaneous Notes * Telephone Encounter - Lucinda Olivias - 09/09/2023 9:51 AM EDT Patient called in [facility] [...] Description 03/03/2025 1:00 PM EST Office Visit [facility] CH[facility] MED & PEDS 505 [place], [place] [phone] Mirta Jacobson, JEFF 505 [place] [address] documented as of this encounter Visit Diagnoses Not on filedocumented in this encounter Additional Health Concerns Assessment Noted Time PHQ-9 Depression Total Score: 21 023 8:57 AM EDT documented as of this encounter Care Teams Battery Loader Relationship Specialty Start Date End Date Jackie Abdi MD 230 [place] [address] PCP - General Family Medicine 04/29/13 documented as of this encounter
--- OUTSIDE RECORDS SUMMARY | 2025-01-19 11:54 | XMS_ITS | Encounter Summary ---
Author Organization [employer] Address [address] [facility] [address] 7t [place] [address] Care Team Providers Care Town Administrator Name Role Phone Jackie Abdi MD Primary Care Provider [phone] Reason for Visit * Reason Comments Med Refill Encounter Details Date Type Department Care Team ([facility] st Contact Info) Description 06/08/2023 Refill [facility] MEDICINE 230 [place] [address] Jackie Abdi MD [address] [place] [address] Depressed mood Social History Tobacco Use Types [...] Description 03/03/2025 1:00 PM EST Office Visit [facility] CHC MED & PEDS 505 [place], [place] [phone] Mirta Jacobson CNP 505 [place] [address] documented as of this encounter Visit Diagnoses Diagnosis Depressed mood documented in this encounter Additional Health Concerns Assessment Noted Time PHQ-9 Depression Total Score: 21 023 8:57 AM EDT documented as of this encounter Care Teams Town Administrator Relationship Specialty Start Date End Date Jackie Abdi MD 230 [place] [address] PCP - General Family Medicine 04/29/13 documented as of this encounter
--- OUTSIDE RECORDS SUMMARY | 2025-01-19 11:54 | XMS_ITS | Encounter Summary ---
Author Organization [employer] Address [address] [facility] 7t [place] [address] Care Team Providers Care Gift Shop Manager Name Role Phone Jackie Abdi MD Primary Care Provider [phone] Encounter Details Date Type Department Care Team (Late Contact Info) Description 06/03/2022 Orders Only [facility] MED & PEDS 505 [place] [address] Kaylin Kaur MD 505 [place] [address] Mid-back pain, acute (Primary Dx) Social History [...] 1:00 PM EST Office Visit [facility] MED & PEDS 505 [place] [address] Mirta Jacobson CNP 505 [place] [address] documented as of this encounter Visit Diagnoses Diagnosis Mid-back pain, acute- Primary documented in this encounter Care Teams Gift Shop Manager Relationship Specialty Start Date End Date Jackie Abdi MD [address] [place] [address] PCP - General Family Medicine 04/29/13 documented as of this encounter
--- OUTSIDE RECORDS SUMMARY | 2025-01-19 11:54 | XMS_ITS | Encounter Summary ---
Author Organization [employer] Address [address] [facility] 7t [place] [address] Care Team Providers Care Assembler Erector Name Role Phone Jackie Abdi MD Primary Care Provider [phone] Reason for Visit * Reason Onset Date Comments Results 04/30/2022 Encounter Details Date Type Department Care Team ([facility] Contact Info) Description 04/30/2022 Telephone [facility] MEDICINE 230 [place] [address] Jackie Abdi MD [address] [place] [address] Results Social History Tobacco Use Types Packs/Day [...] regarding xray results Please contact pt at [phone] documented in this encounter Plan of Treatment Upcoming Encounters Date Type Department Care Team (Late st Contact Info) Description 03/03/2025 1:00 PM EST Office Visit [facility]C MED & PEDS 505 [place] [address] Mirta Jacobson CNP 505 [place] [address] documented as of this encounter Visit Diagnoses Not on filedocumented in this encounter Care Teams Assembler Erector Relationship Specialty Start Date End Date Jackie Abdi MD [address] [place] [address] PCP - General Family Medicine 04/29/13 documented as of this encounter
--- OUTSIDE RECORDS SUMMARY | 2025-01-19 11:54 | XMS_ITS | Encounter Summary ---
Author Organization [employer] Address [address] [facility] 7t [place] [address] Care Team Providers Care Supervisor Assembly Department Name Role Phone Jackie Abdi MD Primary Care Provider [phone] Encounter Details Date Type Department Care Team (Late Contact Info) Description 08/28/2022 Orders Only [facility] MED & PEDS 505 [place], [place] [phone] Ronnell Sanderson MD 505 [place] [address] Social History Tobacco Use Types Packs/Day Years [...] Description 03/03/2025 1:00 PM EST Office Visit [facility] MED [facility]EDS 505 [place] [address] Mirta Jacobson CNP 505 [place] [address] documented as of this encounter Visit Diagnoses Not on filedocumented in this encounter Additional Health Concerns Assessment Noted Time PHQ-9 Depression Total Score: 21 023 8:57 AM EDT documented as of this encounter Care Teams Supervisor Assembly Department Relationship Specialty Start Date End Date Jackie Abdi MD [address] [place] [address] PCP - General Family Medicine 04/29/13 documented as of this encounter
--- OUTSIDE RECORDS SUMMARY | 2025-01-19 11:54 | XMS_ITS | Encounter Summary ---
Author Organization [employer] Address [address] [facility] [address] 7t [place] [address] Care Team Providers Care Wig Sales Consultant Name Role Phone Jackie Abdi MD Primary Care Provider [phone] Encounter Details Date Type Department Care Team (Latest Contact Info) Description 01/17/2025 Travel Social History Tobacco Use Types Packs/Day [...] Description 03/03/2025 1:00 PM EST Office Visit [facility] MED & PEDS 505 [place], [place] [phone] Mirta Jacobson CNP 505 [place] [address] documented as of this encounter Visit Diagnoses Not on filedocumented in this encounter Additional Health Concerns Assessment Noted Time PHQ-9 Depression Total Score: 14 025 11:23 AM EST documented as of this encounter Care Teams Wig Sales Consultant Relationship Specialty Start Date End Date Jackie Abdi MD [address] [place] [address] PCP - General Family Medicine 04/29/13 documented as of this encounter
--- OUTSIDE RECORDS SUMMARY | 2025-01-19 11:54 | XMS_ITS | Encounter Summary ---
Author Organization [employer] Address [address] [facility] 7t [place] [address] Care Team Providers Care Soda Clerk Name Role Phone Jackie Abdi MD Primary Care Provider [phone] Reason for Visit * Reason Onset Date Comments Med Refill 02/26/2023 Encounter Details Date Type Department Care Team ([facility] st Contact Info) Description 02/26/2023 Refill [facility] CHC MED & PEDS 505 [place] [address] Jackie Abdi MD 505 [place] [address] Social History Tobacco Use Types Packs/Day Years [...] 1:00 PM EST Office Visit [facility] CHC MED & PEDS 505 [place], [place] [phone] Mirta Jacobson, COYOTE HUNTER 505 [place] [address] documented as of this encounter Visit Diagnoses Not on filedocumented in this encounter Additional Health Concerns Assessment Noted Time PHQ-9 Depression Total Score: 21 023 8:57 AM EDT documented as of this encounter Care Teams Soda Clerk Relationship Specialty Start Date End Date Jackie Abdi MD 230 [place] [address] PCP - General Family Medicine 04/29/13 documented as of this encounter
--- OUTSIDE RECORDS SUMMARY | 2025-01-19 11:54 | XMS_ITS | Encounter Summary ---
Author Organization [employer] Address [address] [place] [address] 7 [place] [address] Care Team Providers Care Main Line Assembler Name Role Phone Jackie Abdi MD Primary Care Provider [phone] Reason for Visit * Reason Onset Date Comments Med Refill 10/24/2022 Encounter Details Date Type Department Care Team (Late Contact Info) Description 10/24/2022 Refill [facility] MEDICINE 230 [place], [place] [phone] Jackie Abdi MD 505 [place] [address] Social History Tobacco Use Types Packs/Day Years [...] Description 03/03/2025 1:00 PM EST Office Visit [facility] CHC MED & PEDS 505 [place], [place] [phone] Mirta Jacobson CNP 505 [place], [place] [phone] documented as of this encounter Visit Diagnoses Not on filedocumented in this encounter Additional Health Concerns Assessment Noted Time PHQ-9 Depression Total Score: 21 023 8:57 AM EDT documented as of this encounter Care Teams Main Line Assembler Relationship Specialty Start Date End Date Jackie Abdi MD 230 [place] [address] PCP - General Family Medicine 04/29/13 documented as of this encounter
--- OUTSIDE RECORDS SUMMARY | 2025-01-19 11:54 | XMS_ITS | Encounter Summary ---
Author Organization [employer] Address [address] [facility] [address] 7t [place] [address] Care Team Providers Care Tie Tape Machine Operator Name Role Phone Jackie Abdi MD Primary Care Provider [phone] Reason for Visit * Reason Onset Date Comments Nurse Triage 01/17/2025 Encounter Details Date Type Department Care Team ([facility] st Contact Info) Description 01/17/2025 Telephone [facility] MEDICINE 230 [place] [address] Jackie Abdi MD [address] [place] [address] Nurse Triage Social History Tobacco Use Types [...] encounter Miscellaneous Notes * Telephone Encounter - Corrie Chavarria RN - 01/17/2025 2:00 PM EDT TC placed to pt for triage. Pt reports they currently weight 122 pounds and are concerned about theunintentional weight loss. Pt concerned as their clothes a big on them and they are losing this weight without trying. Pt was seen on 12/13/24 for unintentional weight loss and symptoms. Pt endorses nausea, fatigue, dizziness, weakness, headache. Pt denies vomiting, diarrhea, fainting. Pt reports headache comes and goes and is rated at a 7/10 for pain. Pt reports sometimes they take Excedrin for the headache, and it helps with the pain but causes them to feel like their heart is pounding. Pt concerned that levothyroxine is cause of weight loss. Pt reports the dizziness happens all of the time.Pt reports they can be lying in bed, and it feels like their head is spinning. Pt reports they havehad an appetite change and are barely hungry. Pt reports they sometimes try to make foods that theylike and by the time they are done making it they are nauseous and don't want to eat. Pt reports increasing anxiety since last seen by provider. Pt reports they don't want to leave their house. Pt reports it is affecting their sleep and there are times they are still awake at 3 or 4 in the morning.Pt denies feelings of wanting to hurt themself or others. Pt booked for appointment in same day care at [facility] with at 2:40 PM. Pt agreeable to appointment and denies questions at this time. Multiple (3) protocols were used on this call. Disposition for Call: See in Office or Video Visit Today Protocol Used: Weight Loss - Unintended (Adult) Protocol-Based Disposition: See in Office or Video Visit Today Positive Triage Questions: * SEVERE weight loss (e.g., BMI < 15; weight loss that is rapid; taking little or no food by mouth) * Continued weight loss and after medical evaluation by doctor (or CLINICAL SERVICES DIRECTOR/PA) * All higher-acuity triage questions were negative Care Advice Discussed: * Reasons To Call Back - You continue to lose weight - You lose more than 5% of your body weight - You become worse * Reasons To Call Back - You have more questions Protocol Used: Dizziness (Adult) Protocol-Based Disposition: See in Office or Video Visit Today Video visit offer not recorded Positive Triage Questions: * Moderate dizziness (e.g., interferes with normal activities) (Exception: Dizziness caused by heatexposure, sudden standing, or poor fluid intake.) * Patient wants to be seen * All higher-acuity triage questions were negative Care Advice Discussed: * Reasons To Call Back - After 2 hours of rest and fluids and you are still feeling dizzy - You pass out (faint) or are too weak to stand - You become worse Protocol Used: Anxiety and Panic Attack (Adult) Protocol-Based Disposition: See in Office or Video Visit within 3 Days Video visit offer not recorded Positive Triage Questions: * Moderate anxiety (e.g., persistent or frequent anxiety symptoms; interferes with sleep, school, or work) * Taking thyroid medications * All higher-acuity triage questions were negative Care Advice Discussed: * Reasons To Call Back - You feel like harming yourself - You become worse * Telephone Encounter - Margarette Chaney - 01/17/2025 1:46 PM EDT Symptom: Weight Loss Outcome: Schedule an appointment to be seen within 24 hours Reason: Caller denied all higher acuity questions PT LOST 20 POUNDS IN 2 WEEKS The caller accepted this outcome. PCP Dr. Abdi documented in this encounter Plan of Treatment Upcoming Encounters Date Type Department Care Team ([facility] st Contact Info) Description 03/03/2025 1:00 PM EST Office Visit [facility] MED & PEDS 505 [place] [address] Mirta Jacobson CNP 505 [place] [address] documented as of this encounter Visit Diagnoses Not on filedocumented in this encounter Additional Health Concerns Assessment Noted Time PHQ-9 Depression Total Score: 14 025 11:23 AM EST documented as of this encounter Care Teams Tie Tape Machine Operator Relationship Specialty Start Date End Date Jackie Abdi MD 230 [place] [address] PCP - General Family Medicine 04/29/13 documented as of this encounter
--- OUTSIDE RECORDS SUMMARY | 2025-01-19 11:54 | XMS_ITS | Encounter Summary ---
Author Organization [employer] Address [address] [facility] [address] 7t [place] [address] Care Team Providers Care Innovation Manager Name Role Phone Jackie Abdi MD Primary Care Provider [phone] Reason for Visit * Reason Comments Med Refill Encounter Details Date Type Department Care Team ([facility] st Contact Info) Description 09/16/2023 Refill [facility] MED & PEDS 505 [place], [place] [phone] Jackie Abdi MD 505 [place] [address] Acute pain of right shoulder Social History [...] Description 03/03/2025 1:00 PM EST Office Visit [facility] CHC MED & PEDS 505 [place], [place] [phone] Mirta Jacobson, JEFF 505 [place] [address] documented as of this encounter Visit Diagnoses Diagnosis Acute pain of right shoulder documented in this encounter Additional Health Concerns Assessment Noted Time PHQ-9 Depression Total Score: 21 023 8:57 AM EDT documented as of this encounter Care Teams Innovation Manager Relationship Specialty Start Date End Date Jackie Abdi MD 230 [place] [address] PCP - General Family Medicine 04/29/13 documented as of this encounter
--- OUTSIDE RECORDS SUMMARY | 2025-01-19 11:54 | XMS_ITS | Encounter Summary ---
Author Organization [employer] Address [address] [facility] [address] [place] [address] Care Team Providers Care Application Defense Manager Name Role Phone Jackie Abdi MD Primary Care Provider [phone] Encounter Details Date Type Department Care Team ([facility] st Contact Info) Description 03/11/2023 Abstract [facility] [address] [place] [address] Jackie Abdi MD [address] [place] [address] Social History Tobacco Use Types Packs/Day Years [...] Description 03/03/2025 1:00 PM EST Office Visit [facility] PEDS [address] [place], [place] [phone] Mirta Jacobson CNP [address] [place] [address] documented as of this encounter Visit Diagnoses Not on filedocumented in this encounter Additional Health Concerns Assessment Noted Time PHQ-9 Depression Total Score: 21 023 8:57 AM EDT documented as of this encounter Care Teams Application Defense Manager Relationship Specialty Start Date End Date Jackie Abdi MD [address] [place] [address] PCP - General Family Medicine 04/29/13 documented as of this encounter
--- OUTSIDE RECORDS SUMMARY | 2025-01-19 11:54 | XMS_ITS | Encounter Summary ---
Author Organization [employer] Address [address] [facility] 7t [place] [address] Care Team Providers Care Expert Witness Name Role Phone Jackie Abdi MD Primary Care Provider [phone] Encounter Details Date Type Department Care Team (Late st Contact Info) Description 12/08/2022 Telephone [facility] MED [facility] PEDS [address] [place], [place] [phone] Jackie Abdi MD [address] [place] [address] Social History Tobacco Use Types Packs/Day Years [...] Description 03/03/2025 1:00 PM EST Office Visit [facility] [address] [place] [address] Mirta Jacobson CNP [address] [place] [address] documented as of this encounter Visit Diagnoses Not on filedocumented in this encounter Additional Health Concerns Assessment Noted Time PHQ-9 Depression Total Score: 21 023 8:57 AM EDT documented as of this encounter Care Teams Expert Witness Relationship Specialty Start Date End Date Jackie Abdi MD [address] [place] [id number] PCP - General Family Medicine 04/29/13 documented as of this encounter
--- OUTSIDE RECORDS SUMMARY | 2025-01-19 11:54 | XMS_ITS | Encounter Summary ---
Author Organization [employer] Address [address] [facility] [address] [place] [address] Care Team Providers Care Entry Clerk Name Role Phone Jackie Abdi MD Primary Care Provider [phone] Reason for Visit * Reason Onset Date Comments Nurse Triage 08/03/2023 Encounter Details Date Type Department Care Team ([facility] st Contact Info) Description 08/03/2023 Telephone [facility] MEDICINE [address] [place] [address] Jackie Abdi MD [address] [place] [address] Nurse Triage Social History Tobacco Use Types [...] point. pt states is currently at the [facility] for evaluation. advised to complete the [...] Upcoming Encounters Date Type Department Care Team ([facility] st Contact Info) Description 03/03/2025 1:00 PM EST Office Visit [facility] MED & PEDS [address] [place], [place] [phone] Mirta Jacobson, RN RELIEF CHARGE [address] [place], [place] [phone] documented as of this encounter Visit Diagnoses Not on filedocumented in this encounter Additional Health Concerns Assessment Noted Time PHQ-9 Depression Total Score: 21 06/26/ 023 8:57 AM EDT documented as of this encounter Care Teams Entry Clerk Relationship Specialty Start Date End Date Jackie Abdi MD [address] [place] [id number] PCP - General Family Medicine 04/29/13 documented as of this encounter
--- OUTSIDE RECORDS SUMMARY | 2025-01-19 11:55 | XMS_ITS | Encounter Summary ---
Author Organization [employer] Address [address] [facility] [address] [place] [address] Care Team Providers Care Willow Machine Operator Name Role Phone Jackie Abdi MD Primary Care Provider [phone] Reason for Visit * Reason Onset Date Comments Referral 08/26/2023 Encounter Details Date Type Department Care Team ([facility] st Contact Info) Description 08/26/[address] 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 Address: [address] [place] [address] [address] [place] [address] Facility Name: [facility]. Type of Specialist: Morphologist Pt is also requesting referral for a urologist and or open hearth door liner due to some recent concerns. (Ptwas triaged) If any questions please contact pt at [phone]. documented in this encounter Plan of Treatment Upcoming Encounters Date Type Department Care Team ([facility] st Contact Info) Description 03/03/2025 1:00 PM EST Office Visit [facility] MED & PEDS [address] [place] [address] Mirta Jacobson CNP [address] [place] [address] documented as of this encounter Visit Diagnoses Not on filedocumented in this encounter Additional Health Concerns Assessment Noted Time PHQ-9 Depression Total Score: 21 023 8:57 AM EDT documented as of this encounter Care Teams Willow Machine Operator Relationship Specialty Start Date End Date Jackie Abdi MD [address] [place] [id number] PCP - General Family Medicine 04/29/13 documented as of this encounter
--- OUTSIDE RECORDS SUMMARY | 2025-01-19 11:55 | XMS_ITS | Clinical Summary ---
Author Organization [employer] Address [address] [place] [address] Care Team Providers Care Counseling Case Manager Name Role Phone Jackie Abdi MD Primary Care Provider [phone] Allergies Active Allergy Reactions Criticality Noted Date Comments Sulfamethoxazole-Trimethoprim Angioedema 2023 Medications Multiple Vitamin (Multi-Vitamin) tablet Take 1 tablet by mouth at bed time. Active cholecalciferol (Vitamin D-3) 1.25 MG (06043 UT) capsule Take 1 capsule by mouth. [...] TWICE DAILY 180 tablet 08/12/19 24 Active dicyclomine (Bentyl) 10 MG capsuleIndications :History of cholecystectomy Take 1 capsule (10 mg) by mouth 3 times daily. 90 capsule 3 10/09/19 24 Active Symbicort 80-4.5 MCG/ACT inhaler INHALE 2 PUFFS BY MOUTH TWICE DAILY 10.2 g 02/08/20 Active azelastine (Astelin) 0.1 % nasal spray [...] TWICE DAILY 40 capsule 06/07/19 25 Active cyclobenzaprine (Flexeril) 10 MG tablet TAKE 1 TABLET(10 MG) BY MOUTH AT BEDTIME 30 tablet 06/10/19 25 Active loratadine (Claritin) 10 MG tablet Take 1 tablet (10 mg) by mouth Once per day. 30 tablet 06/22/19 25 2025 Active amoxicillin (Amoxil) 500 MG capsuleIndications :Pharyngitis, unspecified etiology Take 1 tab po bid for 10 days 20 capsule 06/24/19 25 Active levothyroxine (Synthroid) 25 MCG tablet Take 1 tablet (25 mcg) by mouth before breakfast. 30 tablet 07/01/19 25 2025 Active FLUoxetine (PROzac) 10 MG capsule TAKE 1 CAPSULE(10 MG) BY MOUTH DAILY 30 capsule 11 08/25/19 25 Active hydrOXYzine pamoate (Vistaril) 50 MG capsule TAKE 1 CAPSULE BY MOUTH TWICE DAILY 60 capsule 3 11/11/19 25 Active omeprazole (PriLOSEC) [address] capsule TAKE 1 CAPSULE(40 MG) BY MOUTH BEFORE BREAKFAST. DO NOT CRUSH OR CHEW 90 capsule 3 12/30/19 25 Active Diclofenac Sodium 1 % gelIndications:Nec k pain To apply to the affected area 3 times a day 100 g 2 01/18/20 25 Active mirtazapine (Remeron) 7.5 MG tabletIndications: Anxiety,Other insomnia Take 1 tablet (7.5 mg) by mouth at bedtime. 30 tablet 3 01/18/20 25 2024 Active omeprazole (PriLOSEC) [address] capsule Take 1 capsule (40 mg) by mouth before breakfast. Do not crush or chew. 90 capsule 3 11/17/19 24 2024 Discontinued Active Problems Problem Noted Date [...] 08/06/2021 Myofascial pain 08/06/2021 Intracranial subdural hematoma (CMS/HCC) 022 Chronic pelvic pain in female 08/06/2021 Abnormal [...] edema 11/09/2020 Stage 3 chronic kidney disease (CMS/HCC) 021 Hypokalemia 06/06/2020 Acute renal failure syndrome 06/06/2020 Edema of lower extremity 09/07/2017 Gastroesophageal reflux disease 09/06/2013 Resolved Problems Problem Noted Date Diagnosed Date Resolved Date Chronic female pelvic pain 11/11/2022 1 04/11/2022 History of hysterectomy for benign disease 05/15/2022 04/21/2024 Encounters Date Type Department Care Team Description 01/17/2025 2:40 PM EDT Office Visit [facility] [address] [place] [address] Ronnell Sanderson MD Weight loss, unintentional (Primary Dx); Neck pain; Anxiety; Other insomnia 01/17/2025 Travel 01/17/2025 Telephone [facility] [address] [place] [phone] Jackie Abdi MD Nurse Triage 12/28/2024 Refill [facility] [address] [place] [address] Jackie Abdi MD 12/15/2024 Telephone [facility] [address] [place] [address] Jackie Abdi MD Results 12/14/2024 Results Follow-Up [facility] [address] [place] [phone] Stephenie Mcdaniels MD XR CERVICAL SPINE 4V, CBC auto differential, Comprehensive Metabolic Panel, Additional followed-up results: 8 12/13/2024 1:20 PM EDT Office Visit [facility] [address] [place] [phone] Stephenie Mcdaniels MD Unintentional weight loss (Primary Dx); Acute non intractable tension-type headache; Diarrhea, unspecified type; Neck pain 12/13/2024 Travel 12/13/2024 Telephone [facility] [address] [place] [address] Jackie Abdi MD Nurse Triage 11/08/[address] [address] Jackie Abdi MD from Last 3 Months Immunizations Immunization [...] Pulse 85 01/17/2025 2:56 PM EDT Temperature 36.6 C (97.9 F) 12/13/2024 1:07 PM EDT Respiratory Rate 19 01/17/2025 2:56 PM EDT Oxygen Saturation 98% 01/17/2025 2:56 PM EDT Inhaled Oxygen Concentration - - Weight 56.2 kg (124 lb) 01/17/2025 2:56 PM EDT Height 149.9 cm (4' 11 ) 01/17/2025 2:56 PM EDT Body Mass Index 25.04 01/17/2025 2:56 PM EDT Plan of Treatment Upcoming Encounters Date Type Department Care Team ([facility] st Contact Info) Description 03/03/2025 1:00 PM EST Office Visit [facility] [address] [place], [place] [phone] Mirta Jacobson, CITY ASSESSOR [address] [place], [place] [phone] Health Maintenance Due Date Last Done Comments [...] 06/21/2024 SDOH Screening 06/21/2025 06/21/2024 Tobacco Screening 01/17/2026 01/17/2025 Colorectal Cancer Screening 02/23/2026 FIT DNA/Cologuard 02/23/2026 02/23/2023 Mammogram 06/03/2026 06/03/2024, 03/02/2020 Cervical Cancer Screening 04/08/2027 HPV/Cotest 04/08/2027 04/08/2022 Pap Smear 04/08/2027 04/08/2022 Lipid Panel 09/29/2029 09/29/2024, 08/28, 08/03/2020, Additional history exists RSV Patients and Patients Aged 60 years or older (1 - 1-dose 75+ series) 2047 COVID-19 Vaccine Completed 12/03/2023, , 01/22/2022, Additional history exists Hepatitis A Vaccines Aged Out 03/18/2024 No long er eligible based on patient's age to complete this topic Hepatitis B Vaccines Completed 03/18/2024, 02/08/2021, 01/09/2021 Pneumococcal Vaccine: 50+ Years Completed 03/18/2024, 02/21/2017 Zoster Vaccines Completed 03/18/2024, 12/03/2023 HIV Screening Completed 12/13/2024, 12/12/2020 Hepatitis C Screening Completed 12/13/2024, 021 HIB Vaccines Aged Out No longer eligi [...] Routine 12/13/2024 4:05 PM EDT Neck pain ROSSY SCREEN, IFA, W/REFL TITER AND PATTERN Routine 12/13/2024 2:34 PM EDT Unintentional weight loss HIV 1/2 ANTIGEN/ANTIBODY, FOURTH GENERATION W/RFL Routine 12/13/2024 2:34 PM EDT Unintentional weight loss TSH W/REFLEX TO FT4 Routine 12/13/2024 2 :34 PM EDT Unintentional weight loss HEPATITIS PANEL, GENERAL Routine 12/13/2024 2:34 PM EDT Unintentional weight [...] 12/13/2024 1:51 PM EDT Diarrhea, unspecified type LIPID PANEL, STANDARD Routine 09/29/2024 9:15 AM EDT Hypothyroidism, unspecified type BI MAMMOGRAM SCREENING TOMOSYNTHESIS BILATERAL Routine 06/03/2024 [...] CT/NG, TRICHOMONAS Routine 04/08/2022 4:21 PM EST from Last 3 Months or Most Recently Relevant to Health Maintenance Results * XR CERVICAL SPINE 4V (12/13/2024 4:05 PM EDT) Anatomical Region Laterality Modality Abdomen Radiographic Janice ging 12/13/2024 4:05 PM EDT Narrative 12/13/2024 4:31 PM EDT [facility] [address] [place] [address] XRay Report Signed Patient: Sade Fraga MR#: [id number] 4 : 1970 Acct:[id number] Age/Sex: 54 / F ADM Date: 12/13/24 [facility]: Stephenie Chappell MD Ordering Physician: Stephenie Mcdaniels MD Date of Service: 12/13/24 Procedure(s): XR cervical spine 4V Accession Number(s): [id number] cc: Stephenie Mcdaniels MD Reason for Exam: [...] Lee Rankin MD 12/13/2024 04:28 PM EDT RP Dictated By: Lee Rankin MD Signed By: <Electronically signed by Lee Rankin MD in OV> 12/13/24 1628 DD/ 1605 TD/TT: 12/13/24 1610 Conference Center Coordinator: Procedure Note Donotuseinterpreter, Image - 12/13/[address] [address] XRay Report Signed Patient: Sade FragaMR#: [id number] 4 : 1970Acct:[id number] Age/Sex: 54 / FADM Date: 12/13/24 Loc: HO.HHCX Attending Dr: Stephenie Chappell MD Ordering Physician: Stephenie Mcdaniels MD Date of Service: 12/13/24 Procedure(s): XR cervical spine 4V Accession Number(s): [id number] cc: Stephenie Mcdaniels MD Reason for Exam: [...] Lee Rankin MD 12/13/2024 04:28 PM EDT RP Dictated By: Lee Rankin MD Signed By: <Electronically signed by Lee Rankin MD in OV> 12/13/24 1628 DD/ 1605 TD/TT: 12/13/24 1610 Conference Center Coordinator: Stephenie Chappell MD IMG XR PROCEDURES Vinny aaliyah Result - Final * TSH with Reflex to Free T4 (12/13/2024 2:34 PM EDT) TSH reflex Free T4 1.51 0.32 - 4.0 uIU/mL [facility] Blood Venous blood specimen / Unknown 12/13/2024 2:34 PM EDT 12/13/2024 4:04 PM EDT Stephenie Chappell MD LAB BLOOD ORDERABLES Final Result [facility] [address] [place] [phone] * Hepatitis Panel, General (12/13/2024 2:34 PM EDT) Hepatitis A IgM Nonreactive Nonreactive [facility] Comment:IgM antibodies to HERNANDEZ V not detected; does not exclude earlyacute or recovered HAV infection. ~Hepatitis B Surface Antibody REACTIVE Nonreactive [facility] Comment:REACTIVE: > 11.99 mI U/mL Hepatitis B Core Antibody Nonreactive Nonreactive [facility] Hepatitis C Antibody Nonreactive Nonreactive [facility] Comment:Antibodies to HCV no t detected; does not exclude early acuteHCV infection. Hepatitis B Surface Ag Negative Negative [facility] Blood Venous blood specimen / Unknown 12/13/2024 2:34 PM EDT 12/13/2024 4:04 PM EDT Stephenie Chappell MD LAB BLOOD ORDERABLES Final Result [facility] [address] [place], [place] [phone] * (ABNORMAL) CBC auto differential (12/13/2024 2:34 PM EDT) White Blood Count 6.0 4.8 - 10.8 X10*3/uL [facility] Red Blood Count 4.58 4.20 - 5.50 X10*6/uL [facility] Hemoglobin 12.5 12.0 - 16.0 g/dl [facility] Hematocrit 37.9 37.0 - 47.0 % [facility] Mean Corpuscular Volume 82.8 80.0 - 98.0 fL [facility] Mean Corpuscular Hemoglobin 27.3 27.0 - 33.0 pg [facility] Mean Corpuscular HGB Conc 33.0 31.0 - 35.0 g/dl [facility] Red Cell Distribution Width 17.4(H) 11.0 - 16.0 % [facility] Platelet Count 301 160 - 400 X10*3/uL [facility] Mean Platelet Volume 11.1 9.4 - 12.3 fL [facility] Neutrophils Percent Auto 54.0 45 - 73 % [facility] Imm Gran Pct Auto 0.2 0.0 - 0.4 % [facility] Lymphocytes Percent Auto 23.7 20 - 40 % [facility] Monocytes Percent Auto 18.6(H) 2 - 11 % [facility] Eosinophils Percent Auto 3.0 0 - 4 % [facility] Basophils Percent Auto 0.5 0 - 2 % [facility] NRBC Pct Auto 0.0 0.0 - 0.2 /100WBC [facility] Neutrophils Absolute Auto 3.3 2.0 - 8.3 x10*3/uL [facility] Imm Gran Abs Auto 0.01 0.00 - 0.03 X10*3/uL [facility] Lymphocytes Absolute Auto 1.4 1.2 - 4.9 X10*3/uL [facility] Monocytes Absolute Auto 1.1 0.1 - 1.2 X10*3/uL [facility] Eosinophils Absolute Auto 0.2 0.0 - 0.4 X10*3/uL [facility] Basophils Absolute Auto 0.0 0.0 - 0.2 X10*3/uL [facility] NRBC Abs Auto 0.000 0.0 - 0.012 X10*3/uL [facility] Blood Venous blood specimen / Unknown 12/13/2024 2:34 PM EDT 12/13/2024 4:04 PM EDT us Stephenie Chappell MD LAB BLOOD ORDERABLES Final Result [facility] [address] [place] [phone] * HIV-1/2 Antigen and Antibodies, Fourth Generation, with Reflexes (12/13/2024 2:34 PM EDT) [facility] HIV AB/AG Nonreactive Nonreactive [facility] Comment:HIV-1 p24 Ag and/or HIV-1/HIV-2 Ab not detected.A test result that is nonreactive does not exclude thepossibility of exposure to or infection with HIV-1 and/orHIV-2. Nonreactive results in this assay for individualswith prior exposure to HIV-1 and/or HIV-2 may be due toantigen and antibody levels that are below the limit ofdetection of this assay.The [employer] HIV Ag/Ab Combo assay result andsupplemental assay results should be interpreted inconjunction with the patient's clinical presentation,history and other laboratory results. If the results areinconsistent with clinical evidence, additional testing issuggested to confirm the result. Blood Venous blood specimen / Unknown 12/13/2024 2:34 PM EDT 12/13/2024 4:04 PM EDT us Stephenie Chappell MD LAB BLOOD ORDERABLES Final Result [facility] [address] [place] [phone] * (ABNORMAL) ROSSY Screen,IFA, with Reflex to Titer and Pattern (12/13/2024 2:34 PM EDT) Anti Nuclear Antibody Screen POSITIV E(A) NEGATIVE [facility] Comment:ROSSY IFA is a first l ine screen for detecting thepresence of up to approximately 150 autoantibodies invarious autoimmune diseases. A positive ROSSY IFA resultis suggestive of autoimmune disease and reflexes totiter and pattern. Further laboratory testing may beconsidered if clinically indicated.For additional information, please refer tohttp://education.[employer]/faq/STT563(This link is being provided for informational/educational purposes only.) ROSSY Titer 1:80(A) titer [facility] Comment:A low level ROSSY tite r may be present in pre-clinicalautoimmune diseases and normal individuals. Reference Range <1:40 Negative 1:40-1:80 Low Antibody Level >1:80 Elevated Antibody Level ROSSY Pattern Nuclear , Homogen eous(A) [facility] Comment:Homogeneous pattern is associated with systemic lupuserythematosus (SLE), drug-induced lupus and juvenileidiopathic arthritis.AC-1: HomogeneousInternational Consensus on ROSSY Patterns(https://doi.org/10.1515/atfk-8466-0869)THIS TEST WAS PERFORMED AT:[facility] [place] [phone] SCHILLING MD ROSSY TITER 2 (REF LAB) [facility] ROSSY Pattern 2 [facility] ROSSY TITER 3 [facility] ROSSY PATTERN 3 [facility] Blood Venous blood specimen / Unknown 12/13/2024 2:34 PM EDT 12/13/2024 4:04 PM EDT us Stephenie Chappell MD LAB BLOOD ORDERABLES Final Result [facility] [address] [place] [phone] * Hemoglobin A1c (12/13/2024 2:34 PM EDT) Hemoglobin A1c 5.5 <6.0 % [facility] Comment:Hemoglobin A1C Refer ence Range Adults: 4.8 - 6.0 % Non diabetic: < 6.0 % Goal: < 7.0 %Additional Action Suggested: > 8.0 %Note: Hemoglobin A1c results are invalid for patients with abnormal amounts of HbF. Blood transfusions may impact the HbA1c concentration in the patient sample. Estimated Average Glucose 111 mg/dL [facility] Comment:eAG = Estimated ave rage glucose which is %A1C expressed asaverage glucose, using the formula of the H7I-MpekvcaTwzetvi Glucose study (ADAG), Diabetes Care, Vol.31,#8,Oct. 2007 Blood Venous blood specimen / Unknown 12/13/2024 2:34 PM EDT 12/13/2024 4:13 PM EDT us Stephenie Chappell MD LAB BLOOD ORDERABLES Final Result [facility] [address] [place] [phone] * (ABNORMAL) Comprehensive Metabolic Panel (12/13/2024 2:34 PM EDT) Pathologist [facility] Sodium 141 135 - 145 mmol/L [facility] Potassium 4.6 3.3 - 5.1 mmol/L [facility] Comment:Slight Hemolysis.Int erpret result with caution. Chloride 109(H) 96 - 108 mmol/L [facility] Carbon Dioxide 25 22 - 29 mmol/L [facility] Anion Gap 12 12 - 20 [facility] Urea Nitrogen (BUN) 13 9 - 16 mg/dL [facility] Creatinine, Serum 1.02 0.5 - 1.4 mg/dL [facility] Estimated Glomerular Filt Rate 57 [facility] Comment:Chronic Kidney Disea se: Estimated GFR < 60 mL/min/1.23v7Jfskyx Kidney Disease: Estimated GFR < 15 mL/min/1.73m2 Glucose 84 60 - 115 mg/dL [facility] Calcium 9.0 8.4 - 10.2 mg/dL [facility] Bilirubin, Total 0.2 0.0 - 1.0 mg/dL [facility] Aspartate Amino Transferase 25 5 - 31 U/L [facility] Comment:Slight Hemolysis.Int erpret result with caution. Alanine Aminotransferase 11 0 - 31 U/L [facility] Total Protein 7.6 6.5 - 8.0 g/dL [facility] Albumin Level 4.3 3.5 - 5.0 g/dL [facility] Alkaline Phosphatase 111 39 - 117 U/L [facility] Blood Venous blood specimen / Unknown 12/13/2024 2:34 PM EDT 12/13/2024 4:04 PM EDT us Stephenie Chappell MD LAB BLOOD ORDERABLES Final Result Performing Organization Address City/[facility]/ZIP Co de Phone Number [facility] [address] [place] [phone] * Influenza B (ID NOW Rapid Molecular) (12/13/2024 1:51 PM EDT) Pathologist [facility] Influenza B Negative Negative, Indeterminate [facility] Swab 12/13/2024 1:51 PM EDT Stephenie Chappell MD POINT OF CARE TEST EN TER/EDIT ORDERABLES Final Result Performing Organization Address [facility]/ZIP Co de Phone Number [facility] [address] [place] [phone] * Influenza A (ID NOW Rapid Molecular) (12/13/2024 1:51 PM EDT) Influenza A Negative Negative, Indeterminate [facility] Swab 12/13/2024 1:51 PM EDT us Stephenie Chappell MD POINT OF CARE TEST EN TER/EDIT ORDERABLES Final Result Performing Organization Address City/[facility]/ZIP Co de Phone Number [facility] [address] [place] [phone] * POCT Rapid COVID Ag (12/13/2024 1:51 PM EDT) Rapid COVID Ag Negative [facility] Swab 12/13/2024 1:51 PM EDT us Stephenie Chappell MD POINT OF CARE TEST EN TER/EDIT ORDERABLES Final Result Performing Organization Address [facility] Co de Phone Number [facility] [address] [place] [phone] * (ABNORMAL) Lipid Panel, Standard (09/29/2024 9:15 AM EDT) Triglycerides 132 <150 mg/dL [facility] Comment:Desirable Triglyceri de: less than 150 mg/dLBorderline High Triglyceride 150-199 mg/dLHigh Triglyceride: 200-499 mg/dLVery High Triglyceride: greater than or equal to 5OO mg/dL Cholesterol 157 <200 mg/dL [facility] Comment:Desirable Cholestero l: less than 200 mg/dLBorderline High Cholesterol: 200-239 mg/dLHigh Cholesterol: greater than 239 mg/dL LDL Cholesterol Calculated 100(H) <100 mg/dL [facility] Comment:Desirable LDL: less than 100 mg/dLNear Optimal/Above Optimal LDL: 110- 129 mg/dLBorderline High LDL: 130-159 mg/dLHigh LDL: 160-189 mg/dLVery High LDL: greater than or equal to 190 mg/dL HDL Cholesterol 31(L) >40 mg/dL [facility] Comment:Desirable HDL: great er than 40 mg/dL Note: This HDL assay may give artificially low results in patients with liver disease. Blood Venous blood specimen / Unknown 09/29/2024 9:15 AM EDT 09/29/2024 2:53 PM EDT us Jackie Abdi MD LAB BLOOD ORDERABLES Final Resul t [facility] [address] [place] [address] [phone] * BI Mammogram Screening Tomosynthesis Bilateral (06/03/2024 9:45 AM EST) Anatomical Region Laterality Modality Breast Bilateral Mammography 06/03/2024 9:45 AM EST Narrative 06/12/2024 4:59 PM EDT [address] [place] [address] Mammography Report Signed Patient: Sade Fraga MR#: [id number] 4 : 1970 Acct:[id number] Age/Sex: 54 / F ADM Date: 06/03/24 Loc: HO.MAMMO Attending Dr: Pola Maldonado CNM Ordering Physician: POLA MALDONADO CNM Results: 1 Negative Date of Service: 06/03/24 Follow Up: 1 Year From [facility] Mammogram Procedure(s): MM tomosynthesis screening BI Accession Number(s): [id number] cc: Jackie Abdi MD; POLA MALDONADO CNM [...] 06/12/24 1656 DD/ 0945 TD/TT: 06/03/24 1010 Conference Center Coordinator: Procedure Note Donotuseinterpreter, Image - 06/12/2024 [facility] [address] [place] [address] Mammography Report Signed Patient: Gray Fraga#: [id number] 4 : 1970Acct:[id number] Age/Sex: 54 / FADM Date: 06/03/24 Loc: HOR[facility]olphMAMMO Attending Dr: Pola Maldonado CNM Ordering Physician: POLA MALDONADOesults: 1 Negative Date of Service: 06/03/24Follow Up: 1 Year From Orig inal Mammogram Procedure(s): MM tomosynthesis screening BI Accession Number(s): [id number] cc: Jackie Abdi MD; POLA MALDONADO CNM [...] 06/12/24 1656 DD/ 0945 TD/TT: 06/03/24 1010 Conference Center Coordinator: Pola Maldonado CN IMG BI PROCEDURES Final R esult * Cologuard?? colon cancer screening (02/23/2023 10:44 AM EST) Pathologist [facility] Cologuard Result Negative Negative 03/01/20 3:14 PM EST [facility] (CLIA #:[id number]) Comment: NEGATIVE TEST RESULT. A negative Cologuard [...] Arevalo et al, N Engl J Med 2014;370(14):9484-9290) The normal value (reference range) for this assay is negative. COLOGUARD RE-SCREENING RECOMMENDATION: Periodic colorectal cancer screening is an important part of preventive healthcare for asymptomatic individuals at average risk for colorectal cancer. Following a negative Cologuard result, the [place] [employer] Society and U.S. Multi-Society Task Force screening guidelines recommend a Cologuard re-screening interval of 3 years. References: [place] [employer] Guideline for Colorectal Cancer Screening: https://www.cancer.org/cancer/sxjxd-znyxay-htwcdk/doygceujk-dwszrnuuy-tkgftgc/ac s-rec ommendations.html.; Bean OVALLES, Mitchell CR, Dank WeberK, Colorectal Cancer Screening: Recommendations for Physicians and Patients from the U.S. Multi-Society Task Force on Colorectal Cancer Screening , Am J Gastroenterology 2017; 112:3900-6509. TEST DESCRIPTION: Composite algorithmic analysis of stool [...] (Javi Frank al, N Engl J Med 2014;370(14):2275-9640.) Cologuard may produce a false negative or false positive result (no colorectal cancer or precancerous polyp present at colonoscopy follow up). A negative Cologuard test result does not guarantee the absence of CRC or advanced adenoma (pre-cancer). The current Cologuard screening interval is every 3 years. ([employer] [employer] Society and U.S. Multi-Society Task Force). Cologuard performance data in a 10,000 patient pivotal study using colonoscopy as the reference method can be accessed at the following location: www.[employer]/results. Additional description of the Cologuard test process, warnings and precautions can be found at www.[email or web address]. Stool specimen (specimen) 02/23/2023 10:44 AM EST 02/24/2023 1:44 PM EST us Jackie Abdi MD LAB MOLECULAR DIAGNOSTICS ORDERA NORA Final Result [facility] (CLIA #:[id number]) [place] [address], * Thinprep TIS PAP And HPV mRNA E6/E7, CT/NG, TRICH (04/08/2022 4:21 PM EST) Clinical Information: SCREENING, PELVIC PAIN [facility] LMP: NONE GIVEN Post[facility] on [employer] Runt Prev. PAP: NONE GIVEN [employer] [facility]ost Prev. BX: NONE GIVEN [employer] [facility] SOURCE: None given [facility] Statement Of Adequacy: [facility] Comment: Satisfactory for evaluation. Endocervical/transformation zone component present. Age and/or menstrual status not provided Interpretation/Re sult: Negative for intraepithelial lesion or malignancy. [facility] COMMENT: This Pap test has been evaluated with computer assisted technology. [facility] Commercial Singer: Jose YupiCall Comment: JIMENEZ CT(ASCP) CT screening location: [place] [address] (Always Message) [facility] Comment: EXPLANATORY NOTE: The Pap is a [...] HPV nRNA E6/E7 Not Detected Not Detected [facility] Comment: Methodology: Sheet Roller Operator-Mediated Amplification This assay detects E6/E7 viral messenger RNA (mRNA) from 14 high-risk HPV types (16,18,31,33,35,39,45,51,52,56,58,59,66,68). Cervical sources are required for HPV testing. If a vaginal source from a patient who has had a total hysterectomy with removal of cervix was submitted, please contact the testing laboratory for alternative testing options. For additional information, please refer to http://education.TuneStars/faq/NKH156q1 (This link if provided for information/ educational purposes only.) Chlamydia trachomatis RNA, TMA, Urogenital NOT DETECTED NOT DETECTED [facility] [place] [facility] Neisseria gonorrhoeae RNA, TMA, Urogenital NOT DETECTED NOT DETECTED [facility] [place] [facility] Comment [facility] [place] [facility] Comment: The analytical performance characteristics of this assay, when used to test SurePath(TM) specimens have been determined by [facility]. The modifications have not been cleared or approved by the FDA. This assay has been validated pursuant to the CLIA regulations and is used for clinical purposes. For additional information, please refer to https://Deezer.TuneStars/faq/RMC947 (This link is being provided for information/ educational purposes only.) Trichomonas vaginalis, QL, TMA, PAP Vial NOT DETECTED NOT DETECTED [facility] [place] [facility] Comment: The analytical performance characteristics of this assay have been determined by [facility]. The modifications have not been cleared or approved by the FDA. This assay has been validated pursuant to the CLIA regulations and is used for clinical purposes. For additional information, please refer to http://Deezer.TuneStars/ faq/Trichomonastma (This link is being provided for information/ educational purposes only.) 04/08/2022 4:21 PM EST 04/09/2022 11:04 AM EST Narrative [facility] - 04/14/2022 10:42 AM EST FASTING: UNKNOWN Pola Maldonado CNM LAB PATHOLOGY ORDERABLES Final Result [facility] [address], [place] [address] [facility] [place] [facility] [address] [facility], (Nl2) [place] [address] from Last 3 Months or Most Recently Relevant to Health Maintenance Insurance [employer] AD[place] Care Teams Counseling Case Manager Relationship Specialty Start Date End Date Jackie Abdi MD [address] [place] [address] PCP - General Family Medicine 04/29/13
--- OUTSIDE RECORDS SUMMARY | 2025-01-19 11:55 | XMS_ITS | Encounter Summary ---
Author Organization [employer] Address [address] [facility] [address] 7[address] [place] [address] Care Team Providers Care Squeegeer And Former Name Role Phone Jackie Abdi MD Primary Care Provider [phone] Reason for Visit * Reason Comments Med Refill Encounter Details Date Type Department Care Team ([facility] st Contact Info) Description 11/13/2023 Refill [facility] [address] [place] [address] Jackie Abdi MD [address] [place] [address] Social History Tobacco Use Types Packs/Day Years [...] Description 03/03/2025 1:00 PM EST Office Visit [facility] 505 [place], [place] [phone] Mirta Jacobson CNP 505 [place] [address] documented as of this encounter Visit Diagnoses Not on filedocumented in this encounter Additional Health Concerns Assessment Noted Time PHQ-9 Depression Total Score: 21 023 8:57 AM EDT documented as of this encounter Care Teams Squeegeer And Former Relationship Specialty Start Date End Date Jackie Abdi MD 230 [place] [address] PCP - General Family Medicine 04/29/13 documented as of this encounter
--- OUTSIDE RECORDS SUMMARY | 2025-01-19 11:55 | XMS_ITS | Encounter Summary ---
Author Organization [employer] Address [address] [facility] [address] 7[address] [place] [address] Care Team Providers Care Traffic Personnel Supervisor Name Role Phone Jackie Abdi MD Primary Care Provider [phone] Reason for Visit * Reason Onset Date Comments Med Refill 11/13/2023 Encounter Details Date Type Department Care Team (Late st Contact Info) Description 11/13/2023 Refill [facility] 230 [place] [address] Jackie Abdi MD [address] [place] [address] Social History Tobacco Use Types Packs/Day Years [...] Description 03/03/2025 1:00 PM EST Office Visit [facility] 505 [place], [place] [phone] Mirta Jacobson, JEFF 505 [place] [address] documented as of this encounter Visit Diagnoses Not on filedocumented in this encounter Additional Health Concerns Assessment Noted Time PHQ-9 Depression Total Score: 21 023 8:57 AM EDT documented as of this encounter Care Teams Traffic Personnel Supervisor Relationship Specialty Start Date End Date Jackie Abdi MD 230 [place] [address] PCP - General Family Medicine 04/29/13 documented as of this encounter
--- OUTSIDE RECORDS SUMMARY | 2025-01-19 11:55 | XMS_ITS | Encounter Summary ---
Author Organization [employer] Address [address] [facility] 7t [place] [address] Care Team Providers Care Paediatrician Name Role Phone Jackie Abdi MD Primary Care Provider [phone] Reason for Visit * Reason Onset Date Comments Results 08/04/2023 Encounter Details Date Type Department Care Team ([facility] Contact Info) Description 08/04/2023 Telephone [facility] [address] [place] [address] Jackie Abdi MD [address] [place] [address] Results Social History Tobacco Use Types Packs/Day [...] labs. Pt stated these were done by [facility] and that they diagnosed pt with [...] and culture Date when done: 08/02 Facility: [facility] Please contact pt at [phone] documented in this encounter Plan of Treatment Upcoming Encounters Date Type Department Care Team ([facility] st Contact Info) Description 03/03/2025 1:00 PM EST Office Visit [facility] [address] [place] [address] Mirta Jacobson CNP 505 [place] [address] documented as of this encounter Visit Diagnoses Not on filedocumented in this encounter Additional Health Concerns Assessment Noted Time PHQ-9 Depression Total Score: 21 06/26/ 023 8:57 AM EDT documented as of this encounter Care Teams Paediatrician Relationship Specialty Start Date End Date Jackie Abdi MD [address] [place] [address] PCP - General Family Medicine 04/29/13 documented as of this encounter
--- OUTSIDE RECORDS SUMMARY | 2025-01-19 11:55 | XMS_ITS | Encounter Summary ---
Author Organization [employer] Address 75 [facility] 7t [place] [address] Care Team Providers Care Electroplating Laborer Name Role Phone Jackie Abdi MD Primary Care Provider [phone] Reason for Visit * Reason Comments Med Refill Encounter Details Date Type Department Care Team ([facility] st Contact Info) Description 09/01/2023 Refill [facility] [address] [place], [place] [phone] Ronnell Sanderson MD 505 [place] [address] Acute pain of right shoulder Social History [...] Description 03/03/2025 1:00 PM EST Office Visit [facility] 505 [place] [address] Mirta Jacobson, BOX TRUCK DRIVER 505 [place] [address] documented as of this encounter Visit Diagnoses Diagnosis Acute pain of right shoulder documented in this encounter Additional Health Concerns Assessment Noted Time PHQ-9 Depression Total Score: 21 023 8:57 AM EDT documented as of this encounter Care Teams Electroplating Laborer Relationship Specialty Start Date End Date Jackie Abdi MD [address] [place] [phone] PCP - General Family Medicine 04/29/13 documented as of this encounter
--- OUTSIDE RECORDS SUMMARY | 2025-01-19 11:55 | XMS_ITS | Encounter Summary ---
Author Organization [employer] Address [address] [facility] 7t [place] [address] Care Team Providers Care Crew Member Name Role Phone Jackie Abdi MD Primary Care Provider [phone] Reason for Visit * Reason Comments Med Refill Encounter Details Date Type Department Care Team ([facility] st Contact Info) Description 10/23/2023 Refill [facility] 505 [place], [place] [phone] Jackie Abdi MD 505 [place] [address] Social History Tobacco Use Types Packs/Day Years [...] Description 03/03/2025 1:00 PM EST Office Visit [facility] 505 [place], [place] [phone] Mirta Jacobson, JEFF 505 [place] [address] documented as of this encounter Visit Diagnoses Not on filedocumented in this encounter Additional Health Concerns Assessment Noted Time PHQ-9 Depression Total Score: 21 023 8:57 AM EDT documented as of this encounter Care Teams Crew Member Relationship Specialty Start Date End Date Jackie Abdi MD 230 [place] [address] PCP - General Family Medicine 04/29/13 documented as of this encounter
--- OUTSIDE RECORDS SUMMARY | 2025-01-19 11:55 | XMS_ITS | Encounter Summary ---
Author Organization [employer] Address [address] [facility] [address] 7[address] [place] [address] Care Team Providers Care Rope Maker Name Role Phone Jackie Abdi MD Primary Care Provider [phone] Encounter Details Date Type Department Care Team (Late st Contact Info) Description 12/07/2023 Orders Only [facility] [address] [place] [address] [phone] Hiren Garcia MD 230 [place], [place] [phone] Social History Tobacco Use Types Packs/Day Years [...] [facility] 505 [place], [place] [phone] Mirta Jacobson, CLOTH MENDER 505 [place], [place] [phone] documented as of this encounter Procedures Procedure Name Priority Date/Time Associated Diagnosis Comments STRESS TEST WITH MYOCARDIAL PERFUSION Routine 01/01/2024 9:09 AM EDT documented in this encounter Results * Stress test with myocardial perfusion (01/01/2024 9:09 AM EDT) 01/01/2024 9:09 AM EDT Narrative [facility] - 01/04/2024 4:19 PM EDT [address] [address] Nuclear Medicine Report Signed Patient: Sade Fraga MR#: [id number] 4 : 1970 Acct:[id number] Age/Sex: 53 / F ADM Date: 01/01/24 Loc: HO.CARD Attending Dr: Abdelrahman Ricketts MD Ordering Physician: Abdelrahman Ricketts MD Date of Service: 01/01/24 Procedure(s): NM cardiolite stress test Accession Number(s): [id number] cc: Jackie Abdi MD; Abdelrahman Ricketts MD [...] 01/04/24 1616 DD/ 0909 TD/TT: 01/04/24 1200 Patient Account Representative: Procedure Note Donotuseinterpreter, Image - 01/04/[address] [address] Nuclear Medicine Report Signed Patient: Gray Fraga#: [id number] 4 : 1970Acct:[id number] Age/Sex: 53 / FADM Date: 01/01/24 Loc: HO.CARD Attending Dr: Abdelrahman Ricketts MD Ordering Physician: Abdelrahman Ricketts MD Date of Service: 01/01/24 Procedure(s): NM cardiolite stress test Accession Number(s): [id number] cc: Jackie Abdi MD; Abdelrahman Ricketts MD [...] 01/04/24 1616 DD/ 0909 TD/TT: 01/04/24 1200 Patient Account Representative: us [facility] External Provider CV STRE SS PROCEDURES Final Result [facility] [address] [place] [address] documented in this encounter Visit Diagnoses Not on filedocumented in this encounter Additional Health Concerns Assessment Noted Time PHQ-9 Depression Total Score: 21 023 8:57 AM EDT documented as of this encounter Care Teams Rope Maker Relationship Specialty Start Date End Date Jackie Abdi MD 230 [place] [address] PCP - General Family Medicine 04/29/13 documented as of this encounter
== END 2025-01-19 10:37 | disposition home or self-care (01) ==
LOC: HO.HOS 10:07
PROVIDERS: PCP Student in an Organized Health Care Education/Training Program; Visit Provider Orthopaedic Surgery
DX: Z47.89 Encounter for other orthopedic aftercare (principal); M75.101 Unspecified rotator cuff tear or rupture of right shoulder, not specified as traumatic
CPT/HCPCS: 99213

== ENCOUNTER → 2025-01-19 10:06 | Outpatient (BNVA) | payer MEDICAID, SELFPAY | PROVIDERS: PCP Student in an Organized Health Care Education/Training Program; Visit Provider Orthopaedic Surgery | DX: Z47.89 Encounter for other orthopedic aftercare (principal); M75.101 Unspecified rotator cuff tear or rupture of right shoulder, not specified as traumatic; Z98.890 Other specified postprocedural states | CPT/HCPCS: 99212 ==

== ENCOUNTER 2025-01-19 11:46 | Outpatient (REF) | payer MEDICAID, SELFPAY ==
[2025-01-19 14:35] LABS: MANUAL DIFF FLAG NO
[2025-01-19 14:46] LABS: Hematocrit 39.5 % (37.0-47.0); Hemoglobin 12.6 g/dl (12.0-16.0); Imm Gran Abs Auto 0.01 X10*3/uL (0.00-0.03); Imm Gran Pct Auto 0.2 % (0.0-0.4); Lymphocytes Absolute Auto 1.7 X10*3/uL (1.2-4.9); Mean Corpuscular HGB Conc 31.9 g/dl (31.0-35.0); Mean Corpuscular Hemoglobin 27.0 pg (27.0-33.0); Mean Corpuscular Volume 84.6 fL (80.0-98.0); NRBC Abs Auto 0.000 X10*3/uL (0.0-0.012); NRBC Pct Auto 0.0 /100WBC (0.0-0.2); Platelet Count 356 X10*3/uL (160-400); Red Blood Count 4.67 X10*6/uL (4.20-5.50); White Blood Count 5.1 X10*3/uL (4.8-10.8)
[2025-01-19 15:21] LABS: Alanine Aminotransferase 20 U/L (0-31); Albumin Level 4.4 g/dL (3.5-5.0); Alkaline Phosphatase 84 U/L (39-117); Anion Gap 13 (12-20); Aspartate Amino Transferase 19 U/L (5-31); Blood Urea Nitrogen 13 mg/dL (9-16); Calcium 9.0 mg/dL (8.4-10.2); Carbon Dioxide 27 mmol/L (22-29); Chloride 110 mmol/L (96-108); Estimated Glomerular Filt Rate 51; Potassium 3.6 mmol/L (3.3-5.1); Sodium 146 mmol/L (135-145); Total Protein 7.4 g/dL (6.5-8.0)
== END 2025-01-19 11:47 | disposition home or self-care (01) ==
LOC: HO.CHCLDS 11:46
PROVIDERS: Visit Provider Internal Medicine
DX: R63.4 Abnormal weight loss (principal)
CPT/HCPCS: 36415; 80053; 84443; 85025

== ENCOUNTER 2025-02-08 09:49 | Outpatient (AMB) | payer MEDICAID, SELFPAY ==
--- OUTSIDE RECORDS SUMMARY | 2025-02-07 13:45 | XMS_ITS | Encounter Summary ---
Author Organization [facility] Address [address] [place] [address] Care Team Providers Care Fabrication Mig Welder Name Role Phone Jackie Abdi MD Primary Care Provider [phone] Reason for Visit * Reason Comments Follow-up 5 month Encounter Details Date Type Department Care Team (Late st Contact Info) Description 02/07/2025 1:45 PM EST Office Visit Bariatric Surgery - [address] [place] [address] Aleksandar Heaton MD [address] [place] [phone] Sleep deficient (Primary Dx); Class 1 obesity [...] PROCEDURE: BUNION SURGERY, SIMPLE REMOVAL SECTION PROCEDURE: MD DELIVERY ONLY CHOLECYSTECTOMY PROCEDURE: MD LAPAROSCOPY SURG CHOLECYSTECTOMY OTHER SURGICAL HISTORY PROCEDURE: MD ARTHRS AID TIBIAL FRACTURE PROXIMAL UNICONDYLAR [2] [...] AM EDT Office Visit Bariatric Surgery - [address] [phone] Aleksandar Heaton MD [address] [place] [phone] documented as of this encounter Visit [...] documented as of this encounter Care Teams Fabrication Mig Welder Relationship Specialty Start Date End Date Jackie Abdi MD [address] [place] [id number] PCP - General 10/20/16 documented as of this encounter
--- NOTE | 2025-02-08 09:53 | MHC.OFFVIS ---
Vital Signs 02/08/25 10:12 Height 4 ft 11 in Weight 130 lb BMI 26.3 Intake Visit Reasons: OV-RT knee pain s/p RT TKA with NE 05/14/21 Intake Note: Sade is a 54 year old female who presents today for an ER follow up of right knee. Patient is status post right TKA, performed by Dr. Cerrato on 05/14/21. Patient was admitted to [facility] for infected TKA and a spine infection 01/28/25. Today patient reports ongoing knee pain located at the anterior aspect traveling towards the back of the knee and down the front of her leg. She has been taking celebrex however this is not helping with her pain. She is currently taking antibiotics as prescribed. She states prior to her ER visit her pain came out of now where, stating felt as if she was hit by something and was unable to barely walk. States she had knee pain along with fevers. Allergies sulfamethoxazole (From Bactrim) Allergy (Intermediate, Verified 02/08/25 10:05) Facial Swelling trimethoprim (From Bactrim) Allergy (Intermediate, Verified 02/08/25 10:05) Facial Swelling HPI HPI OV-RT knee pain s/p RT TKA with NE 05/14/21: Details: 54-year-old female presents to the office today for right knee pain. She is status post right total knee arthroplasty on 05/14/[address] Cerrato which was followed up with a revision total knee liner exchange on 08/12/2022 due to suspected infection. Upon discharge from the hospital following her 08/12/2022 procedure she was treated with IV Ceftriaxone 2 g IV for 6 weeks followed by a course of p.o. antibiotics. She saw Dr. Cerrato on where she continued to have pain and swelling in the knee, at that visit a Synovasure aspiration was performed which was negative for infection Fluid has neutrophil elastase negative and screen for P acnes,enterococcus,consuelo negative.There apparently is no Group A strep screen here. Cultures are negative She was followed up with Infectious Disease who kept her on p.o. antibiotics penicillin V [id number] mg PO BID 60 tabs 5RF 30 days. She continued to follow up with Dr. Thompson who saw her on 2 other occasions in May and then November of 2023 who felt she was overall doing well with no further follow-up required. Most recently, on 01/28/2025 the patient presented to [facility] Emergency Department with complaints of right knee pain along with shoulder and neck pain and a fever of 101. While in the emergency department the patient was found to have a white count of 9.1, ESR 28 and CRP of 8.7. Our service was contacted here [facility] from [facility] and because they were doing a workup for septic arthropathy of the C-spine the decision was made to stabilize the patient as far as her spine work up and we would continue to follow up patient outpatient once the determination was made as to the source of infection. The orthopedic group at [facility] did see the patient who performed a right knee aspiration and sent for evaluation. Joint fluid analysis was significant for 26,875 WBS with 88 neutrophils. Cultures were negative after 48 hours. Patient was started on vancomycin 1000 mg every 24 hours along with ceftriaxone 1 g every 24 hours. The medical team at [facility] felt the findings of the patient's MRI of her C-spine were negative for evidence of septic arthropathy and felt she could be treated outpatient by her PCP. In regards to her knee the decision was made to discharge her and we would follow up with her outpatient to discuss the next step in her treatment. Today she c/o right knee pain. She is on po abx Doxycycline 100mg q12 hrs. She denies fever or chills. She denies recent illness. She is also experiencing frequent bruising on the RLE. She does have a ho DVT with PE. [facility] Medical History VSD (ventricular septal defect) Infection associated with internal right knee prosthesis Cellulitis History of pulmonary embolism History of DVT (deep vein thrombosis) Post-traumatic osteoarthritis of right knee Sleep apnea High cholesterol Asthma HTN (hypertension) Surgical History Status post total knee replacement, right History of bunionectomy of both great toes Hx of gastric bypass History of laparoscopic cholecystectomy History of H/O right knee surgery Family History Father Heart problem Mother Heart problem Social History Household Members: Spouse Housing: House Are you a primary personal care service provider to a significant other at home: No Do you presently have visiting nurse or other home services: No Alcohol intake: never Patient Tobacco Use Status: Never used Tobacco service: No Current occupational status: unemployed and disabled Current occupation: rt handed. Review of Systems Const All systems reviewed & are unremarkable except as noted in HPI and below Physical Exam Vital Signs: BMI result Body Mass Index 26.3 Extrem Other: Right knee surgical scar well healed there is no surrounding erythema or effusion. She can perform range of motion without difficulty. She does have scant bruising through the right lower extremity. There is no lower extremity pitting edema. Calf is supple and nontender. Neurovascularly intact. Results Reviewed Results Reviewed: Obtained today he had by me show evidence of total replacement with some lucencies around the tibial Assessment & Plan Assessment & Plan (1) Status post revision of total replacement of right knee: Comment: She is stable and not on prophylactic PCN for over a year. Code(s): Z96.651 - Presence of right artificial knee joint Category: Surgical Plan: Patient will continue taking antibiotic once she has been treated she will call us to make an appointment with Dr. Cerrato for a Synovasure aspiration. I also sent the patient for a stat ultrasound given her history of DVT and PE in the extent of bruising in her lower extremity. All questions were answered and the patient is content with this plan. Orders: Orders US venous duplex LE RT Today Z96.651 - Presence of right artificial knee joint XR knee RT 3V Today M17.11 - Unilateral primary osteoarthritis, right knee Coding Level of Care Code Est Pt Level 3 (43490) Complex EM visit Add On G2211 Diagnoses Status post revision of total replacement of right knee Z96.651
[2025-02-08 10:12] VITALS: BMI 26.3
--- OUTSIDE RECORDS SUMMARY | 2025-02-08 11:16 | XMS_ITS ---
Author Organization [employer] Address [address] [facility] 7t [place] [address] Care Team Providers Care Hydrographical Technical Officer Name Role Phone Mirta Jacobson CNP Primary Care Provider [phone] Craig Boo RN Unavailable [phone] Faisal Lugo Unavailable CM Complex Status:Outreach In Progress (Enrolling) Start date:01/30/2025 Enrollment reason:ADT Feed Overview ADT- Pt admitted to [facility] on 01/28/25. Case Team Name Relationship Phone Craig Boo RN(Responsible Staff) Registered [facility] [phone] Continued Care and Services Coordination
--- OUTSIDE RECORDS SUMMARY | 2025-02-08 11:16 | XMS_ITS | Encounter Summary ---
Author Organization [employer] Address [address] 7[address] [place] [address] Care Team Providers Care Optimization Manager Name Role Phone Jackie Abdi MD Primary Care Provider [phone] Mirta Jacobson CNP Primary Care Provider [phone] Craig Boo RN Unavailable [phone] Faisal Lugo Unavailable Reason for Visit * Reason Onset Date Comments Nurse Triage 08/03/2023 Encounter Details Date Type Department Care Team (Late st Contact Info) Description 08/03/2023 Telephone [facility] MEDICINE [address] [place] [address] Jackie Abdi MD [address] [place], [place] [phone] Nurse Triage Social History Tobacco Use Types Packs/Day Years Used Date Smoking Tobacco: Never Passive Smoke Exposure: Never Smokeless Tobacco: Never Alcohol Use Standard Drinks/Week Comments Never 0 (1 standard drink = 0.6 oz pur e alcohol) Depression Answer Date Recorded Patient Health Questionnaire-9 Score 21 06/26/2022 Housing Stability Answer Date Recorded What is your housing situation today? I have keyon lupe 06/03/[address] you li [...] point. pt states is currently at the [facility] for evaluation. advised to complete the [...] Description 03/03/2025 1:00 PM EST Office Visit [facility] CH[facility] MED & PEDS 505 [place], [place] [phone] Mirta Jacobson CNP 505 [place] [address] documented as of this encounter Visit Diagnoses Not on filedocumented in this encounter Additional Health Concerns Assessment Noted Time PHQ-9 Depression Total Score: 21 023 8:57 AM EDT documented as of this encounter Care Teams Optimization Manager Relationship Specialty Start Date End Date Jackie Abdi MD [address] [place] [address] PCP - General Family Medicine 04/29/13 01/25/25 Mirta Jacobson CNP 505 [place] [address] PCP - General Family Medicine 01/26/25 Craig Boo, EAGLE 505 [place], [place] [phone] Registered Nurse Family Medicine 01/30/25 Faisal Lugo 01/30/25 documented as of this encounter
--- OUTSIDE RECORDS SUMMARY | 2025-02-08 11:16 | XMS_ITS | Clinical Summary ---
Author Organization [facility] Address [address] [place] [address] Care Team Providers Care Retinal Surgeon Name Role Phone Jackie Abdi MD Primary Care Provider [phone] Allergies No known active allergies Medications omeprazole [...] Insurance Medicaid [place] Medicaid [place] Care Teams Retinal Surgeon Relationship Specialty Start Date End Date Jackie Abdi MD [address] [place] [address] PCP - General 04/09/20
--- OUTSIDE RECORDS SUMMARY | 2025-02-08 11:16 | XMS_ITS | Encounter Summary ---
Author Organization [employer] Address [address] [facility] 7t [place] [address] Care Team Providers Care Asset Card Clerk Name Role Phone Jackie Abdi MD Primary Care Provider [phone] Mirta Jacobson CNP Primary Care Provider [phone] Craig Boo RN Unavailable [phone] Faisal Lugo Unavailable Reason for Visit * Reason Onset Date Comments Med Refill 10/24/2022 Encounter Details Date Type Department Care Team (Late st Contact Info) Description 10/24/2022 Refill [facility] MEDICINE [address] [place] [address] Jackie Abdi MD 505 [place] [address] Social History Tobacco Use Types Packs/Day Years [...] Description 03/03/2025 1:00 PM EST Office Visit [facility] MED & PEDS 505 [place] [address] Mirta Jacobson CNP [address] [place] [address] documented as of this encounter Visit Diagnoses Not on filedocumented in this encounter Additional Health Concerns Assessment Noted Time PHQ-9 Depression Total Score: 21 023 8:57 AM EDT documented as of this encounter Care Teams Asset Card Clerk Relationship Specialty Start Date End Date Jackie Abdi MD [address] [place] [address] PCP - General Family Medicine 04/29/13 01/25/25 Mirta Jacobson CNP 505 [place] [address] PCP - General Family Medicine 01/26/25 Craig Boo, RN 505 [place] [address] Registered Nurse Family Medicine 01/30/25 Faisal Lugo 01/30/25 documented as of this encounter
--- OUTSIDE RECORDS SUMMARY | 2025-02-08 11:16 | XMS_ITS | Encounter Summary ---
Author Organization [employer] Address [address] [facility] 7t [place] [address] Care Team Providers Care Skein Straightener Name Role Phone Jackie Abdi MD Primary Care Provider [phone] Mirta Jacobson CNP Primary Care Provider [phone] Craig Boo RN Unavailable [phone] Faisal Lugo Unavailable Encounter Details Date Type Department Care Team (Late Contact Info) Description 10/01/2022 Abstract [facility] MEDICINE 230 [place] [address] Jackie Abdi MD 505 [place], [place] [phone] Social History Tobacco Use Types Packs/Day Years [...] Description 03/03/2025 1:00 PM EST Office Visit [facility] CH[facility] MED & PEDS 505 [place] [address] Mirta Jacobson CNP 505 [place] [address] documented as of this encounter Visit Diagnoses Not on filedocumented in this encounter Additional Health Concerns Assessment Noted Time PHQ-9 Depression Total Score: 21 06/26/ 023 8:57 AM EDT documented as of this encounter Care Teams Skein Straightener Relationship Specialty Start Date End Date Jackie Abdi MD [address] [place] [address] PCP - General Family Medicine 04/29/13 01/25/25 Mirta Jacobson CNP 505 [place] [address] PCP - General Family Medicine 01/26/25 Craig Boo, EAGLE 505 [place] [address] Registered Nurse Family Medicine 01/30/25 Faisal Lugo 01/30/25 documented as of this encounter
--- OUTSIDE RECORDS SUMMARY | 2025-02-08 11:16 | XMS_ITS | Encounter Summary ---
Author Organization [employer] Address [address] 7t [place] [address] Care Team Providers Care Supervisor Self Service Store Name Role Phone Jackie Abdi MD Primary Care Provider [phone] Mirta Jacobson CNP Primary Care Provider [phone] Craig Boo RN Unavailable Faisal Lugo Unavailable Encounter Details Date Type Department Care Team ([facility] st Contact Info) Description 09/26/[address] [facility] CH[facility] MED & PEDS 505 [place], [place] [phone] Provider, MD Sagar Social History Tobacco Use [...] Description 03/03/2025 1:00 PM EST Office Visit [facility] MED & PEDS 505 [place] [address] Mirta Jacobson CNP 505 [place] [address] documented as of this encounter Procedures Procedure [...] as of this encounter Care Teams Supervisor Self Service Store Relationship Specialty Start Date End Date Jackie Abdi MD [address] [place] [address] PCP - General Family Medicine 04/29/13 01/25/25 Mirta Jacobson CNP [facility] [place] [address] PCP - General Family Medicine 01/26/25 Craig Boo, EAGLE [address] [place] [address] Registered Nurse Family Medicine 01/30/25 Faisal Lugo 01/30/25 documented as of this encounter
--- OUTSIDE RECORDS SUMMARY | 2025-02-08 11:16 | XMS_ITS | Encounter Summary ---
Author Organization [employer] Address [address] [facility] 7t [place] [address] Care Team Providers Care Body Masker Name Role Phone Jackie Abdi MD Primary Care Provider [phone] Mirta Jacobson CNP Primary Care Provider [phone] Craig Boo RN Unavailable Faisal Lugo Unavailable Reason for Visit * Reason Onset Date Comments call back 06/03/2022 Encounter Details Date Type Department Care Team (Late st Contact Info) Description 06/03/2022 Telephone [facility] MEDICINE 230 [place] [address] Jackie Abdi MD [address] [place], [place] [phone] call back Social History Tobacco Use Types [...] a call back. Please contact pt at [phone] documented in this encounter Plan of Treatment Upcoming Encounters Date Type Department Care Team ([facility] st Contact Info) Description 03/03/2025 1:00 PM EST Office Visit [facility] CH[facility] MED & PEDS [address] [place], [place] [phone] Mirta Jacobson CNP 505 [place] [address] documented as of this encounter Visit Diagnoses Not on filedocumented in this encounter Care Teams Body Masker Relationship Specialty Start Date End Date Jackie Abdi MD [address] [place] [address] PCP - General Family Medicine 04/29/13 01/25/25 Mirta Jacobson CNP [address] [place] [address] PCP - General Family Medicine 01/26/25 Craig Boo, RN 505 [place] [address] Registered Nurse Family Medicine 01/30/25 Faisal Lugo 01/30/25 documented as of this encounter
--- OUTSIDE RECORDS SUMMARY | 2025-02-08 11:16 | XMS_ITS | Encounter Summary ---
Author Organization [employer] Address [address] [facility] 7t [place] [address] Care Team Providers Care Oil Well Service Operator Helper Name Role Phone Jackie Abdi MD Primary Care Provider [phone] Mirta Jacobson CNP Primary Care Provider [phone] Craig Boo RN Unavailable [phone] Faisal Lugo Unavailable Reason for Visit * Reason Onset Date Comments Results 04/30/2022 Encounter Details Date Type Department Care Team (Late st Contact Info) Description 04/30/2022 Telephone [facility] MEDICINE 230 [place] [address] Jackie Abdi MD [address] [place], [place] [phone] Results Social History Tobacco Use Types Packs/Day [...] regarding xray results Please contact pt at [phone] documented in this encounter Plan of Treatment Upcoming Encounters Date Type Department Care Team ([facility] st Contact Info) Description 03/03/2025 1:00 PM EST Office Visit [facility]ED[facility] 505 [place], [place] [phone] Mirta Jacobson CNP 505 [place] [address] documented as of this encounter Visit Diagnoses Not on filedocumented in this encounter Care Teams Oil Well Service Operator Helper Relationship Specialty Start Date End Date Jackie Abdi MD [address] [place] [address] PCP - General Family Medicine 04/29/13 01/25/25 Mirta Jacobson CNP [address] [place], [place] [phone] PCP - General Family Medicine 01/26/25 Craig Boo, EAGLE [address] [place] [id number] Registered Nurse Family Medicine 01/30/25 Faisal Lugo 01/30/25 documented as of this encounter
--- OUTSIDE RECORDS SUMMARY | 2025-02-08 11:16 | XMS_ITS | Encounter Summary ---
Author Organization [employer] Address [address] [facility] 7t [place] [address] Care Team Providers Care Street Commissioner Name Role Phone Jackie Abdi MD Primary Care Provider [phone] Mirta Jacobson CNP Primary Care Provider [phone] Craig Boo RN Unavailable [phone] Faisal Lugo Unavailable Encounter Details Date Type Department Care Team (Late st Contact Info) Description 09/20/2024 Orders Only [facility] [address] [place] [address] Provider, MD Sagar Social History Tobacco Use [...] Description 03/03/2025 1:00 PM EST Office Visit [facility] MED & PEDS 505 [place] [address] [place] [address] [place] [address] documented as of this encounter Procedures Procedure [...] documented as of this encounter Care Teams Street Commissioner Relationship Specialty Start Date End Date Jackie Abdi MD [address] [place] [address] PCP - General Family Medicine 04/29/13 01/25/25 Mirta Jacobson CNP [address] [place] [address] PCP - General Family Medicine 01/26/25 Craig Boo, EAGLE 505 [place] [address] Registered Nurse Family Medicine 01/30/25 Faisal Lugo 01/30/25 documented as of this encounter
--- OUTSIDE RECORDS SUMMARY | 2025-02-08 11:16 | XMS_ITS | Encounter Summary ---
Author Organization [employer] Address [address] [facility] [address] [place] [address] Care Team Providers Care Final Inspector And Tester Name Role Phone Jackie Abdi MD Primary Care Provider [phone] Mirta Jacobson CNP Primary Care Provider [phone] Craig Boo RN Unavailable [phone] Faisal Lugo Unavailable Reason for Visit * Reason Comments Med Refill Encounter Details Date Type Department Care Team (Late st Contact Info) Description 06/08/2023 Refill [facility] 230 [place] [address] Jackie Abdi MD [address] [place], [place] [phone] Depressed mood Social History Tobacco Use Types Packs/Day Years Used Date Smoking Tobacco: Never Passive Smoke Exposure: Never Smokeless Tobacco: Never Alcohol Use Standard Drinks/Week Comments Never 0 (1 standard drink = 0.6 oz pur e alcohol) Depression Answer Date Recorded Patient Health Questionnaire-9 Score 21 06/26/2022 Housing Stability Answer Date Recorded What is your housing situation today? I have keyonnacho andrade 06/03/[address] you [...] Description 03/03/2025 1:00 PM EST Office [facility] 505 [place] [address] Mirta Jacobson CNP 505 [place] [address] documented as of this encounter Visit Diagnoses Diagnosis Depressed mood documented in this encounter Additional Health Concerns Assessment Noted Time PHQ-9 Depression Total Score: 21 023 8:57 AM EDT documented as of this encounter Care Teams Final Inspector And Tester Relationship Specialty Start Date End Date Jackie Abdi MD 230 [place] [address] PCP - General Family Medicine 04/29/13 01/25/25 Mirta Jacobson CNP 505 [place] [address] PCP - General Family Medicine 01/26/25 Craig Boo, RN 505 [place] [address] Registered Nurse Family Medicine 01/30/25 Faisal Lugo 01/30/25 documented as of this encounter
--- OUTSIDE RECORDS SUMMARY | 2025-02-08 11:16 | XMS_ITS | Encounter Summary ---
Author Organization [employer] Address [address] [facility] [address] 7t [place] [address] Care Team Providers Care Social Service Worker Name Role Phone Jackie Abdi MD Primary Care Provider [phone] Mirta Jacobson CNP Primary Care Provider [phone] Craig Boo RN Unavailable [phone] Faisal Lugo Unavailable Reason for Visit * Reason Onset Date Comments dental appliance fixer 09/09/2023 Encounter Details Date Type Department Care Team (Late st Contact Info) Description 09/09/2023 Telephone [facility] ADULT DENTAL [address] [place] [address] Sharon Fernandez DMD dental appliance fixer Social History Tobacco Use Types Packs/Day Years [...] Patient called in stating hat she contacted [facility] to see where she can go [...] 1:00 PM EST Office Visit [facility] MED & PEDS 505 [place] [address] Mirta Jacobson CNP 505 [place] [address] documented as of this encounter Visit Diagnoses Not on filedocumented in this encounter Additional Health Concerns Assessment Noted Time PHQ-9 Depression Total Score: 21 023 8:57 AM EDT documented as of this encounter Care Teams Social Service Worker Relationship Specialty Start Date End Date Jackie Abdi MD [address] [place] [address] PCP - General Family Medicine 04/29/13 01/25/25 Mirta Jacobson CNP [address] [place] [address] PCP - General Family Medicine 01/26/25 Craig Boo, EAGLE 505 [place] [address] Registered Nurse Family Medicine 01/30/25 Faisal Lugo 01/30/25 documented as of this encounter
--- OUTSIDE RECORDS SUMMARY | 2025-02-08 11:16 | XMS_ITS | Encounter Summary ---
Author Organization [employer] Address [address] [facility] 7t [place] [address] Care Team Providers Care Apprenticeship Consultant Name Role Phone Jackie Abdi MD Primary Care Provider [phone] Mirta Jacobson CNP Primary Care Provider [phone] Craig Boo RN Unavailable [phone] Faisal Lugo Unavailable Encounter Details Date Type Department Care Team ([facility] Contact Info) Description 06/03/2022 Orders Only [facility] CH[facility] MED & PEDS 505 [place], [place] [phone] Kaylin Kaur MD 505 [place], [place] [phone] Mid-back pain, acute (Primary Dx) Social History [...] Description 03/03/2025 1:00 PM EST Office Visit [facility] CHC MED & PEDS 505 [place] [address] Mirta Jacobson CNP 505 [place] [address] documented as of this encounter Visit Diagnoses Diagnosis Mid-back pain, acute- Primary documented in this encounter Care Teams Apprenticeship Consultant Relationship Specialty Start Date End Date Jackie Abdi MD [address] [place] [address] PCP - General Family Medicine 04/29/13 01/25/25 Mirta Jacobson CNP 505 [place] [address] PCP - General Family Medicine 01/26/25 Craig Boo, EAGLE 505 [place] [address] Registered Nurse Family Medicine 01/30/25 Faisal Lugo 01/30/25 documented as of this encounter
--- OUTSIDE RECORDS SUMMARY | 2025-02-08 11:16 | XMS_ITS | Encounter Summary ---
Author Organization [employer] Address [address] [facility] 7t [place] [address] Care Team Providers Care Producer Assistant Name Role Phone Jackie Abdi MD Primary Care Provider [phone] Mirta Jacobson CNP Primary Care Provider [phone] Craig Boo RN Unavailable [phone] Faisla Lugo Unavailable Reason for Visit * Reason Onset Date Comments Med Refill 12/08/2022 Encounter Details Date Type Department Care Team (Late st Contact Info) Description 12/08/2022 Refill [facility] CHC MED & PEDS [address] [place], [place] [phone] Jackie Abdi MD 505 [place] [address] Social History Tobacco Use Types Packs/Day Years [...] 03/03/2025 1:00 PM EST Office Visit [facility] CHC MED & PEDS [address] [place] [address] Mirta Jacobson CNP 505 [place] [address] documented as of this encounter Visit Diagnoses Not on filedocumented in this encounter Additional Health Concerns Assessment Noted Time PHQ-9 Depression Total Score: 21 023 8:57 AM EDT documented as of this encounter Care Teams Producer Assistant Relationship Specialty Start Date End Date Jackie Abdi MD [address] [place] [address] PCP - General Family Medicine 04/29/13 01/25/25 Mirta Jacobson CNP 505 [place] [address] PCP - General Family Medicine 01/26/25 Craig Boo, EAGLE 505 [place] [address] Registered Nurse Family Medicine 01/30/25 Faisal Lugo 01/30/25 documented as of this encounter
--- OUTSIDE RECORDS SUMMARY | 2025-02-08 11:16 | XMS_ITS ---
Author Organization [employer] Address [address] [place] [address] 7t [place] [address] Care Team Providers Care Mechanical Inspector Name Role Phone Mirta Jacobson CNP Primary Care Provider [phone] Craig Boo RN Unavailable [phone] Faisal Lugo Unavailable CHW Complex Status:Outreach In Progress (Enrolling) Start date:01/30/2025 Enrollment reason:ADT Feed Overview ADT- Pt admitted to [facility] on 01/28/25. Case Team Name Relationship Phone Faisal Lugo(Responsible Staff) [phone] Continued Care and Services Coordination
--- OUTSIDE RECORDS SUMMARY | 2025-02-08 11:16 | XMS_ITS | Encounter Summary ---
Author Organization [employer] Address [address] [facility] [address] 7t [place] [address] Care Team Providers Care Expressive Art Therapist Name Role Phone Jackie Abdi MD Primary Care Provider [phone] Mirta Jacobson CNP Primary Care Provider [phone] Craig Boo RN Unavailable [phone] Faisal Lugo Unavailable Reason for Visit * Reason Onset Date Comments Med Refill 02/26/2023 Encounter Details Date Type Department Care Team ([facility] st Contact Info) Description 02/26/2023 Refill [facility] CHC MED & PEDS 505 [place], [place] [phone] Jackie Abdi MD 505 [place], [place] [phone] Social History Tobacco Use Types Packs/Day Years [...] Description 03/03/2025 1:00 PM EST Office Visit [facility] CHC MED & PEDS 505 [place] [address] Mirta Jacobson CNP 505 [place] [address] documented as of this encounter Visit Diagnoses Not on filedocumented in this encounter Additional Health Concerns Assessment Noted Time PHQ-9 Depression Total Score: 21 023 8:57 AM EDT documented as of this encounter Care Teams Expressive Art Therapist Relationship Specialty Start Date End Date Jackie Abdi MD [address] [place] [address] PCP - General Family Medicine 04/29/13 01/25/25 Mirta Jacobson CNP 505 [place] [address] PCP - General Family Medicine 01/26/25 Craig Boo, EAGLE 505 [place] [address] Registered Nurse Family Medicine 01/30/25 Faisal Lugo 01/30/25 documented as of this encounter
--- OUTSIDE RECORDS SUMMARY | 2025-02-08 11:16 | XMS_ITS | Encounter Summary ---
Author Organization [employer] Address [address] [facility] [address] 7t [place] [address] Care Team Providers Care Exhibition Designer Name Role Phone Jackie Abdi MD Primary Care Provider [phone] Mirta Jacobson CNP Primary Care Provider [phone] Craig Boo RN Unavailable [phone] Faisal Lugo Unavailable Encounter Details Date Type Department Care Team (Latest Contact Info) Description 01/20/2025 Results Follow-Up [facility] MED & PEDS [address] [place] [address] Yudith Godinez RN Comprehensive Metabolic Panel, TSH W/Reflex to FT4, CBC auto differential Social History Tobacco Use Types Packs/Day Years [...] Description 03/03/2025 1:00 PM EST Office Visit [facility] MED & PEDS 505 [place] [address] Mirta Jacobson CNP 505 [place] [address] documented as of this encounter Visit Diagnoses Not on filedocumented in this encounter Additional Health Concerns Assessment Noted Time PHQ-9 Depression Total Score: 14 025 11:23 AM EST documented as of this encounter Care Teams Exhibition Designer Relationship Specialty Start Date End Date Jackie Abdi MD [address] [place] [address] PCP - General Family Medicine 04/29/13 01/25/25 Mirta Jacobson CNP 505 [place] [address] PCP - General Family Medicine 01/26/25 Craig Boo RN 505 [place] [address] Registered Nurse Family Medicine 01/30/25 Faisal Lugo 01/30/25 documented as of this encounter
--- OUTSIDE RECORDS SUMMARY | 2025-02-08 11:16 | XMS_ITS | Encounter Summary ---
Author Organization [employer] Address [address] [facility] [address] 7t [place] [address] Care Team Providers Care Reconciliation Coordinator Name Role Phone Jackie Abdi MD Primary Care Provider [phone] Mirta Jacobson CNP Primary Care Provider [phone] Craig Boo RN Unavailable Faisal Lugo Unavailable Reason for Visit * Reason Onset Date Comments Appt materials 01/21/2023 Encounter Details Date Type Department Care Team (Late st Contact Info) Description 01/21/[address] [facility] CHC ADULT DENTAL [address] [place] [address] Sharon Fernandez DMD Appt materials Social History [...] encounter Miscellaneous Notes * Telephone Encounter - Lcuinda Reyes - 01/21/2023 2:19 PM EDT According [...] Description 03/03/2025 1:00 PM EST Office Visit [facility] CHC MED & PEDS 505 [place] [address] Mirta Jacobson CNP 505 [place] [address] documented as of this encounter Visit Diagnoses Not on filedocumented in this encounter Additional Health Concerns Assessment Noted Time PHQ-9 Depression Total Score: 21 023 8:57 AM EDT documented as of this encounter Care Teams Reconciliation Coordinator Relationship Specialty Start Date End Date Jackie Abdi MD 230 [place] [address] PCP - General Family Medicine 04/29/13 01/25/25 Mirta Jacobson CNP 505 [place] [address] PCP - General Family Medicine 01/26/25 Craig Boo, EAGLE [address] [place] [address] Registered Nurse Family Medicine 01/30/25 Faisal Lugo 01/30/25 documented as of this encounter
--- OUTSIDE RECORDS SUMMARY | 2025-02-08 11:16 | XMS_ITS | Encounter Summary ---
Author Organization [employer] Address [address] [place] [address] 7t [place] [address] Care Team Providers Care Educational Psychologist Name Role Phone Jackie Abdi MD Primary Care Provider [phone] Mirta Jacobson CNP Primary Care Provider [phone] Craig Boo RN Unavailable [phone] Faisal Lugo Unavailable Encounter Details Date Type Department Care Team (Late st Contact Info) Description 03/18/2022 Orders Only [facility] MED & PEDS 505 [place] [address] Marielos Hooks LPN Social History Tobacco Use [...] 1:00 PM EST Office Visit [facility] MED & PEDS 505 [place], [place] [phone] Mirta Jacobson CNP 505 [place] [address] documented as of this encounter Visit Diagnoses Not on filedocumented in this encounter Care Teams Educational Psychologist Relationship Specialty Start Date End Date Jackie Abdi MD [address] [place] [address] PCP - General Family Medicine 04/29/13 01/25/25 Mirta Jacobson CNP 505 [place] [address] PCP - General Family Medicine 01/26/25 Craig Boo RN 505 [place] [address] Registered Nurse Family Medicine 01/30/25 Faisal Lugo 01/30/25 documented as of this encounter
--- OUTSIDE RECORDS SUMMARY | 2025-02-08 11:16 | XMS_ITS | Encounter Summary ---
Author Organization [employer] Address [address] [facility] [address] 7t [place] [address] Care Team Providers Care Associate Professor Of Kinesiology Name Role Phone Mirta Jacobson CNP Primary Care Provider [phone] Craig Boo RN Unavailable [phone] Faisal Lugo Unavailable Reason for Visit * Reason Comments Care Coordination C3/W Faisal day, Chart review Encounter Details Date Type Department Care Team (Latest Contact Info) Description 01/30/2025 Patient Outreach [facility]ICINE 230 [place] [address] Mirta Jacobson CNP 505 [place] [address] Care Coordination (C3CM/CHW Faisal Lugo, Chart review) Social History Tobacco Use Types Packs/Day Years [...] Description 03/03/2025 1:00 PM EST Office Visit [facility] CHC MED & PEDS 505 [place] [address] Mirta Jacobson CNP 505 [place] [address] documented as of this encounter Visit Diagnoses Not on filedocumented in this encounter Additional Health Concerns Assessment Noted Time PHQ-9 Depression Total Score: 14 025 11:23 AM EST documented as of this encounter Care Teams Associate Professor Of Kinesiology Relationship Specialty Start Date End Date Mirta Jacobson CNP 505 [place] [address] PCP - General Family Medicine 01/26/25 Craig Boo, EAGLE 505 [place] [address] Registered Nurse Family Medicine 01/30/25 Faisal Lugo 01/30/25 documented as of this encounter
--- OUTSIDE RECORDS SUMMARY | 2025-02-08 11:16 | XMS_ITS | Encounter Summary ---
Author Organization [employer] Address 75 [facility] 7t [place] [address] Care Team Providers Care Sand Caster Apprentice Name Role Phone Jackie Abdi MD Primary Care Provider [phone] Mirta Jacobson CNP Primary Care Provider [phone] Craig Boo RN Unavailable Faisal Lugo Unavailable Encounter Details Date Type Department Care Team ([facility] st Contact Info) Description 03/11/2023 Abstract [facility] 230 [place] [address] Jackie Abdi MD [address] [place], [place] [phone] Social History Tobacco Use Types Packs/Day Years [...] PM EST Office Visit [facility] MED & PEDS 505 [place] [address] Mirta Jacobson CNP 505 [place] [address] documented as of this encounter Visit Diagnoses Not on filedocumented in this encounter Additional Health Concerns Assessment Noted Time PHQ-9 Depression Total Score: 21 023 8:57 AM EDT documented as of this encounter Care Teams Sand Caster Apprentice Relationship Specialty Start Date End Date Jackie Abdi MD [address] [place] [address] PCP - General Family Medicine 04/29/13 01/25/25 Mirta Jacobson CNP 505 [place] [address] PCP - General Family Medicine 01/26/25 Craig Boo, EAGLE 505 [place] [address] Registered Nurse Family Medicine 01/30/25 Faisal Lugo 01/30/25 documented as of this encounter
--- OUTSIDE RECORDS SUMMARY | 2025-02-08 11:16 | XMS_ITS | Encounter Summary ---
Author Organization [employer] Address [address] [place] [address] 7t [place] [address] Care Team Providers Care Cargo Agent Name Role Phone Jackie Abdi MD Primary Care Provider Mirta Jacobson CNP Primary Care Provider [phone] Craig Boo RN Unavailable [phone] Faisal Lugo Unavailable Reason for Visit * Reason Comments Med Refill Encounter Details Date Type Department Care Team ([facility] st Contact Info) Description 09/18/2022 Refill [facility] CHC MED & PEDS 505 [place], [place] [phone] Ronnell Sanderson MD 505 [place], [place] [phone] Mid-back pain, acute Social History Tobacco Use [...] Encounters Date Type Department Care Team ([facility] st Contact Info) Description 03/03/2025 1:00 PM EST Office Visit [facility] MED & PEDS 505 [place] [address] Mirta Jacobson CNP 505 [place] [address] documented as of this encounter Visit Diagnoses Diagnosis Mid-back pain, acute documented in this encounter Additional Health Concerns Assessment Noted Time PHQ-9 Depression Total Score: 21 023 8:57 AM EDT documented as of this encounter Care Teams Cargo Agent Relationship Specialty Start Date End Date Jackie Abdi MD [address] [place] [address] PCP - General Family Medicine 04/29/13 01/25/25 Mirta Jacobson CNP 505 [place] [address] PCP - General Family Medicine 01/26/25 Craig Boo, RN 505 [place] [address] Registered Nurse Family Medicine 01/30/25 Faisal Lugo 01/30/25 documented as of this encounter
--- OUTSIDE RECORDS SUMMARY | 2025-02-08 11:16 | XMS_ITS | Encounter Summary ---
Author Organization [employer] Address [address] [facility] 7t [place] [address] Care Team Providers Care Fiberglass Fabricator Name Role Phone Jackie Abdi MD Primary Care Provider [phone] Mirta Jacobson CNP Primary Care Provider [phone] Craig Boo RN Unavailable [phone] Faisal Lugo Unavailable Reason for Visit * Reason Comments Med Refill Encounter Details Date Type Department Care Team (Late st Contact Info) Description 09/16/2023 Refill [facility] CHC MED & PEDS 505 [place], [place] [phone] Jackie Abdi MD 505 [place], [place] [phone] Acute pain of right shoulder Social History [...] Description 03/03/2025 1:00 PM EST Office Visit [facility] CHC MED & PEDS 505 [place] [address] Mirta Jacobson CNP 505 [place] [address] documented as of this encounter Visit Diagnoses Diagnosis Acute pain of right shoulder documented in this encounter Additional Health Concerns Assessment Noted Time PHQ-9 Depression Total Score: 21 023 8:57 AM EDT documented as of this encounter Care Teams Fiberglass Fabricator Relationship Specialty Start Date End Date Jackie Abdi MD [address] [place] [address] PCP - General Family Medicine 04/29/13 01/25/25 Mirta Jacobson CNP 505 [place] [address] PCP - General Family Medicine 01/26/25 Craig Boo, EAGLE 505 [place] [address] Registered Nurse Family Medicine 01/30/25 Faisal Lugo 01/30/25 documented as of this encounter
--- OUTSIDE RECORDS SUMMARY | 2025-02-08 11:16 | XMS_ITS | Encounter Summary ---
Author Organization [employer] Address [address] [facility] 7t [place] [address] Care Team Providers Care General Partner Name Role Phone Jackie Abdi MD Primary Care Provider [phone] Mirta Jacobson CNP Primary Care Provider [phone] Craig Boo RN Unavailable [phone] Faisal Lugo Unavailable Encounter Details Date Type Department Care Team ([facility] st Contact Info) Description 08/28/2022 Orders Only [facility] CHC MED & PEDS 505 [place], [place] [phone] Ronnell Sanderson MD 505 [place], [place] [phone] Social History Tobacco Use Types Packs/Day Years [...] Upcoming Encounters Date Type Department Care Team ([facility] st Contact Info) Description 03/03/2025 1:00 PM EST Office Visit [facility] CHC MED & PEDS 505 [place] [address] Mirta Jacobson CNP 505 [place], [place] [phone] documented as of this encounter Visit Diagnoses Not on filedocumented in this encounter Additional Health Concerns Assessment Noted Time PHQ-9 Depression Total Score: 21 023 8:57 AM EDT documented as of this encounter Care Teams General Partner Relationship Specialty Start Date End Date Jackie Abdi MD [address] [place] [address] PCP - General Family Medicine 04/29/13 01/25/25 Mirta Jacobson CNP 505 [place] [address] PCP - General Family Medicine 01/26/25 Craig Boo, EAGLE 505 [place] [address] Registered Nurse Family Medicine 01/30/25 Faisal Lugo 01/30/25 documented as of this encounter
--- OUTSIDE RECORDS SUMMARY | 2025-02-08 11:16 | XMS_ITS | Encounter Summary ---
Author Organization [employer] Address [address] [facility] 7t [place] [address] Care Team Providers Care Business Analytics Analyst Name Role Phone Jackie Abdi MD Primary Care Provider [phone] Mirta Jacobson CNP Primary Care Provider [phone] Craig Boo RN Unavailable [phone] Faisal Lugo Unavailable Encounter Details Date Type Department Care Team ([facility] st Contact Info) Description 12/08/2022 Telephone [facility] CHC MED & PEDS 505 [place], [place] [phone] Jackie Abdi MD 505 [place], [place] [phone] Social History Tobacco Use Types Packs/Day Years [...] 1:00 PM EST Office Visit [facility] MED & PEDS 505 [place] [address] Mirta Jacobson CNP 505 [place] [address] documented as of this encounter Visit Diagnoses Not on filedocumented in this encounter Additional Health Concerns Assessment Noted Time PHQ-9 Depression Total Score: 21 023 8:57 AM EDT documented as of this encounter Care Teams Business Analytics Analyst Relationship Specialty Start Date End Date Jackie Abdi MD [address] [place] [address] PCP - General Family Medicine 04/29/13 01/25/25 Mirta Jacobson CNP 505 [place] [address] PCP - General Family Medicine 01/26/25 Craig Boo, RN 505 [place] [address] Registered Nurse Family Medicine 01/30/25 Faisal Lugo 01/30/25 documented as of this encounter
--- OUTSIDE RECORDS SUMMARY | 2025-02-08 11:16 | XMS_ITS | Encounter Summary ---
Author Organization [employer] Address [address] [facility] 7t [place] [address] Care Team Providers Care Defect Repairer Glassware Name Role Phone Jackie Abdi MD Primary Care Provider [phone] Mirta Jacobson CNP Primary Care Provider [phone] Craig Boo RN Unavailable [phone] Faisal Lugo Unavailable Reason for Visit * Reason Onset Date Comments Med Refill 12/05/2022 Encounter Details Date Type Department Care Team (Late Contact Info) Description 12/05/2022 Refill [facility] MED & PEDS 505 [place] [address] Abby Duran MD Social History Tobacco Use [...] Upcoming Encounters Date Type Department Care Team ([facility] Contact Info) Description 03/03/2025 1:00 PM EST Office Visit [facility] MED & PEDS 505 [place] [address] Mirta Jacobson CNP 505 [place] [address] documented as of this encounter Visit Diagnoses Not on filedocumented in this encounter Additional Health Concerns Assessment Noted Time PHQ-9 Depression Total Score: 21 023 8:57 AM EDT documented as of this encounter Care Teams Defect Repairer Glassware Relationship Specialty Start Date End Date Jackie Abdi MD [address] [place] [address] PCP - General Family Medicine 04/29/13 01/25/25 Mirta Jacobson CNP 505 [place] [address] PCP - General Family Medicine 01/26/25 Craig Boo, EAGLE 505 [place] [address] Registered Nurse Family Medicine 01/30/25 Faisal Lugo 01/30/25 documented as of this encounter
--- OUTSIDE RECORDS SUMMARY | 2025-02-08 11:16 | XMS_ITS | Encounter Summary ---
Author Organization [employer] Address [address] [facility] 7t [place] [address] Care Team Providers Care Juice Standardizer Name Role Phone Jackie Abdi MD Primary Care Provider [phone] Mirta Jacobson CNP Primary Care Provider [phone] Craig Boo RN Unavailable [phone] Faisal Lugo Unavailable Encounter Details Date Type Department Care Team (Late st Contact Info) Description 08/25/2024 Orders Only [facility] [address] [place] [address] Provider, MD Sagar Social History Tobacco Use [...] [facility] MED & PEDS 505 [place] [address] Mirta Jacobson CNP 505 [place] [address] documented as of this encounter Procedures Procedure [...] documented as of this encounter Care Teams Juice Standardizer Relationship Specialty Start Date End Date Jackie Abdi MD [address] [place] [address] PCP - General Family Medicine 04/29/13 01/25/25 Mirta Jacobson CNP 505 [place] [address] PCP - General Family Medicine 01/26/25 Craig Boo, EAGLE 505 [place] [address] Registered Nurse Family Medicine 01/30/25 Faisal Lugo 01/30/25 documented as of this encounter
--- OUTSIDE RECORDS SUMMARY | 2025-02-08 11:16 | XMS_ITS | Clinical Summary ---
Author Organization [facility] Address [address] [place] [address] Phone Care Team Providers Care Foreclosure Field Inspector Name Role Phone Jackie Abdi MD Primary Care Provider [phone] Allergies Active Allergy Reactions Criticality Noted Date Comments Sulfamethoxazole-Trimethoprim Angioedema High 2023 Medications cholecalcifero l (VITAMIN D-3) 1,250 mcg [...] time each day. 07/01/19 25 026 Active topiramate (TOPAMAX) 50 mg tabletIndicati ons:Overweight Take 1 tablet (50 mg total) by mouth at bedtime. 30 tablet 3 02/08/20 25 Active phentermine 15 mg capsuleIndicat ions:Overweigh t Take 1 capsule (15 mg total) by mouth 1 (one) time each day before breakfast. Max Daily Amount: 15 mg 30 each 02/08/20 25 026 Active zolpidem CR (Ambien CR) 12.5 mg CR tabletIndicati ons:Sleep deficient Take 1 tablet (12.5 mg total) by mouth at bedtime as needed for sleep. Do not crush, chew, or split. Max Daily Amount: 12.5 mg 30 tablet 02/08/20 25 025 Active topiramate (TOPAMAX) 50 mg tabletIndicati ons:Class 1 obesity due to excess calories with body mass index (BMI) of 30.0 to 30.9 in adult, unspecified whether serious comorbidity present Take 1 tablet (50 mg total) by mouth at bedtime. 30 tablet 3 10/06/19 25 025 Discontinued(R eorder) phentermine 15 mg capsuleIndicat ions:Class 1 obesity due to excess calories with body mass index (BMI) of 30.0 to 30.9 in adult, unspecified whether serious comorbidity present Take 1 capsule (15 mg total) by mouth 1 (one) time each day before breakfast. Max Daily Amount: 15 mg 30 each 11/17/19 25 025 Discontinued(R eorder) zolpidem CR (AMBIEN CR) 6.25 mg CR tabletIndicati ons:Over weight Take 1 tablet (6.25 mg total) by mouth at bedtime as needed for sleep. Do not crush, chew, or split. Max Daily Amount: 6.25 mg 30 tablet 2 11/20/19 25 025 Discontinued Active Problems Problem Noted Date Diagnosed Date Bile-induced gastritis 03/08/2024 Nausea and vomiting 03/08/2024 Overweight (BMI 25.0-29.9) 04/22/2021 Eating disorder 10/11/2020 Hypercholesteremia 10/11/2020 Obstructive sleep apnea 10/11/2020 Overview (03/08/2024): CPAP Gastroesophageal reflux dise ase with esophagitis without hemorrhage 05/03/2020 Encounters Date Type Department Care Team Description 02/07/2025 1:45 PM EST Office Visit Bariatric Surgery - [address] [place] [address] Aleksandar Heaton MD Sleep deficient (Primary Dx); Class 1 obesity due to excess calories with body mass index (BMI) of 30.0 to 30.9 in adult, unspecified whether serious comorbidity present; Overweight; Gastroesophageal reflux disease with esophagitis without hemorrhage from Last 3 Months Immunizations Immunization Administration Dates Next Due Tdap Tetanus diptheria acell ular pertussis (Boostrix; Adacel) 7yo and older 01/19/2012 Surgical History Surgery Date Site/Laterality Comments OTHER SURGICAL HISTORY PROCEDURE: [place] ARTHRS AID TIBIAL FRACTURE PROXIMAL UNICONDYLAR CHOLECYSTECTOMY PROCEDURE: [place] LAPAROSCOPY SURG CHOLECYSTECTOMY BUNIONECTOMY PROCEDURE: BUNION SURGERY, SIMPLE REMOVAL SECTION PROCEDURE: MI DELIVERY ONLY Medical History Medical History Date [...] F) 02/07/2025 1:15 PM EST Respiratory Rate 14 08/17/2024 1:37 PM EDT Oxygen Saturation 99% 08/17/2024 1:37 PM EDT Inhaled Oxygen Concentration - - Weight 60.3 kg (133 lb) 02/07/2025 1:15 PM EST Height 149.9 cm (4' 11 ) 02/07/2025 1:15 PM EST Body Mass Index 26.86 02/07/2025 1:15 PM EST Plan of Treatment Upcoming Encounters Date Type Department Care Team (Late st Contact Info) Description 08/22/2025 11:15 AM EDT Office Visit Bariatric Surgery - [address] [place] [address] Aleksandar Heaton MD [address] [place] [phone] Health Maintenance Due Date Last Done Comments Breast Cancer Screening 1970 Cervical Cancer Screening: Pap Smear 1993 DTaP,Tdap,and Td Vaccines (2 - Td or Tdap) 01/18/2022 01/19/2012 Social Influencers of Health Screening 03/02/2022 RSV Immunization Adult Patients (1 - Risk 50-74 years 1-dose series) 2022 Depression Screening 03/30/2024 COVID-19 Vaccine ( season) 2024 12/03/2023, 01/16/2023, 01/22/2022, Additional history exists Influenza Vaccine (#1) 2024 , 01/16/2023, 01/20/2022, Additional history exists Colorectal Cancer Screening: FIT-DNA (Cologuard) 02/23/2026 02/23/2023 Cholesterol Screening (Lipid Panel) 09/29/2029 09/29/2024, 06/17/2024, 09/10/2021, Additional history exists Hepatitis C Screening Completed 09/22/2023 Hepatitis A Vaccines Aged Out 03/18/2024 No long er eligible based on patient's age to complete this topic Hepatitis B Vaccines Completed 03/18/2024, 02/08/2021, 01/09/2021 Pneumococcal Vaccine: 50+ Years Completed 03/18/2024, 02/21/2017 Zoster Vaccines Completed 03/18/2024, 12/03/2023 HIV Screening Completed 12/13/2024, 12/12/2020 HIB Vaccines Aged Out No longer eligi [...] to direct LDL (06/17/2024 10:12 AM EDT) [facility] Cholesterol 230(H) 0 - 200 mg/dL LAB CHEMISTRY METHOD 06/17/2024 2:[address] [facility] Triglycerides 155(H) 0 - 150 mg/dL LAB CHEMISTRY METHOD 06/17/2024 2:[address] [facility] HDL 48 >=40 mg/dL LAB CHEMISTRY METHOD 06/17/2024 2:[address] [facility] LDL Calculated 151(H) 0 - 100 mg/dL LAB CHEMISTRY METHOD 06/17/2024 2:[address] [facility] VLDL Cholesterol Cristofer 31 mg/dL LAB CHEMISTRY METHOD 06/17/2024 2:[address] [facility] Non HDL Chol. (LDL+VLDL) 182(H) <145 mg/dL LAB CHEMISTRY METHOD 06/17/2024 2:[address] [facility] Chol/HDL Ratio 4.8(H) 0.0 - 4.4 LAB CHEMISTRY METHOD 06/17/2024 2:[address] [facility] Blood Venous blood specimen / Unknown Venipuncture / Unknown 06/17/2024 10:12 AM EDT 06/17/2024 11:07 AM EDT Aleksandar Heaton MD LAB BLOOD ORDERABLES Final R esult [facility] [address] [place] [address], * Hepatitis C Screening (09/22/2023) Hepatitis C Screening abstracted Historical Provider HEALTH MAINTENANCE Final Result from Last 3 Months or Most Recently Relevant to Health Maintenance Insurance MEDICAID - [place] Care Teams Foreclosure Field Inspector Relationship Specialty Start Date End Date Jackie Abdi MD [address] [place] [address] PCP - General 10/20/16
--- OUTSIDE RECORDS SUMMARY | 2025-02-08 11:17 | XMS_ITS | Encounter Summary ---
Author Organization [employer] Address [address] [facility] [address] 7t [place] [address] Care Team Providers Care Hardware Designer Name Role Phone Jackie Abdi MD Primary Care Provider [phone] Mirta Jacobson CNP Primary Care Provider [phone] Craig Boo RN Unavailable [phone] Faisal Lugo Unavailable Encounter Details Date Type Department Care Team (Late st Contact Info) Description 12/07/2023 Orders Only [facility] [address] [place], [place] [phone] Hiren Garcia MD [address] [place], [place] [phone] Social History Tobacco Use Types Packs/Day Years [...] Office Visit [facility] [address] [place], [place] [phone] Mirta Jacobson, [facility] [address] [place], [place] [phone] documented as of this encounter Procedures Procedure Name Priority Date/Time Associated Diagnosis Comments STRESS TEST WITH MYOCARDIAL PERFUSION Routine 01/01/2024 9:09 AM EDT documented in this encounter Results * Stress test with myocardial perfusion (01/01/2024 9:09 AM EDT) 01/01/2024 9:09 AM EDT Narrative [facility] - 01/04/2024 4:19 PM EDT [address] [address] Nuclear Medicine Report Signed Patient: Sade Fraga MR#: [id number] 4 : 1970 Acct:[id number] Age/Sex: 53 / F ADM Date: 01/01/24 Loc: HO.CARD Attending Dr: Abdelrahman Ricketts MD Ordering Physician: Abdelrahman Ricketts MD Date of Service: 01/01/24 Procedure(s): NM cardiolite stress test Accession Number(s): [id number] cc: Jackie Abdi MD; Abdelrahman Ricketts MD [...] the test reported separately. Electronically signed by: Abdlerahman Ricketts MD 01/04/2024 04:16 PM EDT Dictated By: Abdelrahman Ricketts MD Signed By: <Electronically signed by Abdelrahman Ricketts MD in OV> 01/04/24 1616 DD/ 0909 TD/TT: 01/04/24 1200 Thai Masseur: Procedure Note Donotuseinterpreter, Image - 01/04/[address] [address] Nuclear Medicine Report Signed Patient: Sade Fraga#: [id number] 4 : 1970Acct:[id number] Age/Sex: 53 / FADM Date: 01/01/24 Loc: .[facility] Attending Dr: Abdelrahman Ricketts MD Ordering Physician: Abdelrahman Ricketts MD Date of Service: 01/01/24 Procedure(s): NM cardiolite stress test Accession Number(s): [id number] cc: Jackie Abdi MD; Abdelrahman Ricketts MD [...] no clear reversible or fixed perfusion abnormality. NM/GA cardiolite stress test IMPRESSION: 1. Myocardial perfusion [...] 01/04/24 1616 DD/ 0909 TD/TT: 01/04/24 1200 Thai Masseur: us [facility] External Provider CV STRE SS PROCEDURES Final Result [facility] [address] [place] [address] documented in this encounter Visit Diagnoses Not on filedocumented in this encounter Additional Health Concerns Assessment Noted Time PHQ-9 Depression Total Score: 21 023 8:57 AM EDT documented as of this encounter Care Teams Hardware Designer Relationship Specialty Start Date End Date Jackie Abdi MD [address] [place] [address] PCP - General Family Medicine 04/29/13 01/25/25 Mirta Jacobson CNP [address] [place] [address] PCP - General Family Medicine 01/26/25 Craig Boo, EAGLE [address] [place] [address] Registered Nurse Family Medicine 01/30/25 Faisal Lugo 01/30/25 documented as of this encounter
--- OUTSIDE RECORDS SUMMARY | 2025-02-08 11:17 | XMS_ITS | Encounter Summary ---
Author Organization [employer] Address [address] [facility] 7t [place] [address] Care Team Providers Care Set Up And Charger Name Role Phone Jackie Abdi MD Primary Care Provider [phone] Mirta Jacobson CNP Primary Care Provider [phone] Craig Boo RN Unavailable Faisal Lugo Unavailable Reason for Visit * Reason Comments Med Refill Encounter Details Date Type Department Care Team ([facility] st Contact Info) Description 10/23/2023 Refill [facility]S [address] [place], [place] [phone] Jackie Abdi MD [address] [place], [place] [phone] Social History Tobacco Use Types Packs/Day Years [...] Description 03/03/2025 1:00 PM EST Office Visit [facility] [address] [place] [address] Mirta Jacobson CNP [address] [place] [address] documented as of this encounter Visit Diagnoses Not on filedocumented in this encounter Additional Health Concerns Assessment Noted Time PHQ-9 Depression Total Score: 21 023 8:57 AM EDT documented as of this encounter Care Teams Set Up And Charger Relationship Specialty Start Date End Date Jackie Abdi MD [address] [place] [address] PCP - General Family Medicine 04/29/13 01/25/25 Mirta Jacobson CNP [address] [place] [address] PCP - General Family Medicine 01/26/25 Craig Boo, EAGLE [address] [place] [address] Registered Nurse Family Medicine 01/30/25 Faisal Lugo 01/30/25 documented as of this encounter
--- OUTSIDE RECORDS SUMMARY | 2025-02-08 11:17 | XMS_ITS | Encounter Summary ---
Author Organization [employer] Address [address] [facility] [address] 7[address] [place] [address] Care Team Providers Care Land Surveying Survey Worker Name Role Phone Jackie Abdi MD Primary Care Provider [phone] Mirta Jacobson CNP Primary Care Provider [phone] Craig Boo RN Unavailable [phone] Faisal Lugo Unavailable Reason for Visit * Reason Comments Med Refill Encounter Details Date Type Department Care Team (Late st Contact Info) Description 11/13/2023 Refill [facility] [address] [place] [address] Jackie Abdi MD [address] [place], [place] [phone] Social History Tobacco Use Types Packs/Day Years [...] [facility] [address] [place] [address] Mirta Jacobson CNP [address] [place] [address] documented as of this encounter Visit Diagnoses Not on filedocumented in this encounter Additional Health Concerns Assessment Noted Time PHQ-9 Depression Total Score: 21 023 8:57 AM EDT documented as of this encounter Care Teams Land Surveying Survey Worker Relationship Specialty Start Date End Date Jackie Abdi MD [address] [place] [address] PCP - General Family Medicine 04/29/13 01/25/25 Mirta Jacobson CNP [address] [place] [address] PCP - General Family Medicine 01/26/25 Craig Boo, RN [address] [place] [address] Registered Nurse Family Medicine 01/30/25 Faisal Lugo 01/30/25 documented as of this encounter
--- OUTSIDE RECORDS SUMMARY | 2025-02-08 11:17 | XMS_ITS | Encounter Summary ---
Author Organization [employer] Address [address] [facility] [address] 7[address] [place] [address] Care Team Providers Care Suction Operator Name Role Phone Jackie Abdi MD Primary Care Provider [phone] Mirta Jacobson CNP Primary Care Provider [phone] Craig Boo RN Unavailable [phone] Faisal Lugo Unavailable Reason for Visit * Reason Onset Date Comments Med Refill 11/13/2023 Encounter Details Date Type Department Care Team (Late st Contact Info) Description 11/13/2023 Refill [facility] 230 [place] [address] Jackie Abdi MD [address] [place], [place] [phone] Social History Tobacco Use Types Packs/Day Years [...] Description 03/03/2025 1:00 PM EST Office Visit [facility] PEDS 505 [place] [address] Mirta Jacobson CNP [address] [place] [address] documented as of this encounter Visit Diagnoses Not on filedocumented in this encounter Additional Health Concerns Assessment Noted Time PHQ-9 Depression Total Score: 21 023 8:57 AM EDT documented as of this encounter Care Teams Suction Operator Relationship Specialty Start Date End Date Jackie Abdi MD [address] [place] [address] PCP - General Family Medicine 04/29/13 01/25/25 Mirta Jacobson CNP [address] [place] [address] PCP - General Family Medicine 01/26/25 Craig Boo, EAGLE [address] [place] [address] Registered Nurse Family Medicine 01/30/25 Faisal Lugo 01/30/25 documented as of this encounter
--- OUTSIDE RECORDS SUMMARY | 2025-02-08 11:17 | XMS_ITS | Encounter Summary ---
Author Organization [employer] Address [address] [facility] [address] 7t [place] [address] Care Team Providers Care Wall Taper Helper Name Role Phone Jackie Abdi MD Primary Care Provider [phone] Mirta Jacobson CNP Primary Care Provider [phone] Craig Boo RN Unavailable [phone] Faisal Lugo Unavailable Reason for Visit * Reason Onset Date Comments Referral 08/26/2023 Encounter Details Date Type Department Care Team (Late st Contact Info) Description 08/26/2023 Telephone [facility] [address] [place] [address] Jackie Abdi MD [address] [place], [place] [phone] Referral Social History Tobacco Use Types Packs/Day Years Used Date Smoking Tobacco: Never Passive Smoke Exposure: Never Smokeless Tobacco: Never Alcohol Use Standard Drinks/Week Comments Never 0 (1 standard drink = 0.6 oz pur e alcohol) Depression Answer Date Recorded Patient Health Questionnaire-9 Score 21 06/26/2022 Housing Stability Answer Date Recorded What is your housing situation today? 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 Address: [address] [place] [address] [address] [facility] [address] Facility Name: [facility]. Type of Specialist: Rehab Physician Pt is also requesting referral for a urologist and or equip maint eng due to some recent concerns. (Ptwas triaged) If any questions please contact pt at [phone]. documented in this encounter Plan of Treatment Upcoming Encounters Date Type Department Care Team (Late st Contact Info) Description 03/03/2025 1:00 PM EST Office Visit [facility] [address] [place] [address] Mirta Jacobson, JEFF [address] [place] [address] documented as of this encounter Visit Diagnoses Not on filedocumented in this encounter Additional Health Concerns Assessment Noted Time PHQ-9 Depression Total Score: 21 023 8:57 AM EDT documented as of this encounter Care Teams Wall Taper Helper Relationship Specialty Start Date End Date Jackie Abdi MD [address] [place] [address] PCP - General Family Medicine 04/29/13 01/25/25 Mirta Jacobson CNP [address] [place] [address] PCP - General Family Medicine 01/26/25 Craig Boo, EAGLE [address] [place] [address] Registered Nurse Family Medicine 01/30/25 Faisal Lugo 01/30/25 documented as of this encounter
--- OUTSIDE RECORDS SUMMARY | 2025-02-08 11:17 | XMS_ITS | Encounter Summary ---
Author Organization [employer] Address [address] [facility] 7t [place] [address] Care Team Providers Care Director Of Residential Services Name Role Phone Jackie Abdi MD Primary Care Provider [phone] Mirta Jacobson CNP Primary Care Provider [phone] Craig Boo RN Unavailable [phone] Faisal Lugo Unavailable Reason for Visit * Reason Comments Med Refill Encounter Details Date Type Department Care Team ([facility] st Contact Info) Description 09/01/2023 Refill [facility] PEDS [address] [place], [place] [phone] Ronnell Sanderson MD [address] [place], [place] [phone] Acute pain of right shoulder Social History [...] 03/03/2025 1:00 PM EST Office Visit [facility] MED & PEDS [address] [place] [address] Mirta Jacobson CNP 505 [place] [address] documented as of this encounter Visit Diagnoses Diagnosis Acute pain of right shoulder documented in this encounter Additional Health Concerns Assessment Noted Time PHQ-9 Depression Total Score: 21 023 8:57 AM EDT documented as of this encounter Care Teams Director Of Residential Services Relationship Specialty Start Date End Date Jackie Abdi MD [address] [place] [address] PCP - General Family Medicine 04/29/13 01/25/25 Mirta Jacobson CNP 505 [place] [address] PCP - General Family Medicine 01/26/25 Craig Boo, EAGLE [address] [place] [address] Registered Nurse Family Medicine 01/30/25 Faisal Lugo 01/30/25 documented as of this encounter
--- OUTSIDE RECORDS SUMMARY | 2025-02-08 11:17 | XMS_ITS | Encounter Summary ---
Author Organization [employer] Address [address] [facility] 7t [place] [address] Care Team Providers Care Skin Washer Name Role Phone Jackie Abdi MD Primary Care Provider [phone] Mirta Jacobson CNP Primary Care Provider [phone] Craig Boo RN Unavailable [phone] Faisal Lugo Unavailable Reason for Visit * Reason Onset Date Comments Results 08/04/2023 Encounter Details Date Type Department Care Team ([facility] st Contact Info) Description 08/04/2023 Telephone [facility] [address] [place] [address] Jackie Abdi MD [address] [place], [place] [phone] Results Social History Tobacco Use Types Packs/Day [...] labs. Pt stated these were done by [facility] ED and that they diagnosed pt with [...] and culture Date when done: 08/02 Facility: [facility] Please contact pt at [phone] documented in this encounter Plan of Treatment Upcoming Encounters Date Type Department Care Team (Late st Contact Info) Description 03/03/2025 1:00 PM EST Office Visit [facility] MED [facility] PEDS [address] [place] [address] Mirta Jacobson CNP [address] [place] [address] documented as of this encounter Visit Diagnoses Not on filedocumented in this encounter Additional Health Concerns Assessment Noted Time PHQ-9 Depression Total Score: 21 023 8:57 AM EDT documented as of this encounter Care Teams Skin Washer Relationship Specialty Start Date End Date Jackie Abdi MD [address] [place] [address] PCP - General Family Medicine 04/29/13 01/25/25 Mirta Jacobson CNP [address] [place] [address] PCP - General Family Medicine 01/26/25 Craig Boo, EAGLE [address] [place] [address] Registered Nurse Family Medicine 01/30/25 Faisal Lugo 01/30/25 documented as of this encounter
--- OUTSIDE RECORDS SUMMARY | 2025-02-08 11:17 | XMS_ITS | Clinical Summary ---
Author Organization [employer] Address [address] [facility] [address] [place] [address] Care Team Providers Care Chart Calculator Name Role Phone Mirta Jacobson CNP Primary Care Provider [phone] Craig Boo RN Unavailable [phone] Faisal Lugo Unavailable Allergies Active Allergy Reactions Criticality Noted Date Comments Sulfamethoxazole-Trimethoprim Angioedema 2023 Medications Multiple Vitamin (Multi-Vitamin) tablet Take 1 tablet by mouth at bed time. Active cholecalciferol (Vitamin D-3) 1.25 MG (48257 UT) capsule Take 1 capsule by mouth. [...] times daily. 90 capsule 3 4 Active Symbicort 80-4.5 [...] TWICE DAILY 60 capsule 3 5 Active omeprazole (PriLOSEC) [address] capsule TAKE 1 CAPSULE(40 MG) BY MOUTH BEFORE BREAKFAST. DO NOT CRUSH OR CHEW 90 capsule 3 5 Active Diclofenac Sodium 1 % gelIndications:Neck pain To apply to the affected area 3 times a day 100 g 2 5 Active mirtazapine (Remeron) 7.5 MG tabletIndications:A nxiety,Other insomnia Take 1 tablet (7.5 mg) by mouth at bedtime. 30 tablet 3 5 025 Active Active Problems Problem Noted Date Diagnosed [...] Encounters Date Type Department Care Team Description 01/30/2025 Patient Outreach [facility] [address] [place], [place] [phone] Mirta Jacobson CNP Care Coordination ([facility]/JAZZ Lugo, Chart review) 01/30/2025 Patient Outreach [facility] [address], [place] [phone] Mirta Jacobson CNP Care Coordination ([facility]- chart review) 01/30/2025 Patient Outreach [facility] [address] [place] [phone] Mirta Jacobson CNP 01/20/2025 Results Follow-Up [facility] [address] [place] [address] Yudith Godinez, EAGLE Comprehensive Metabolic Panel, TSH W/Reflex to FT4, CBC auto differential 01/17/2025 2:40 PM EDT Office Visit [facility] [address] [place] [address] Ronnell Sanderson MD Weight loss, unintentional (Primary Dx); Neck pain; Anxiety; Other insomnia 01/17/2025 Travel 01/17/2025 Telephone [facility] [address] [place] [phone] Jackie Abdi MD Nurse Triage 12/28/2024 Refill [facility] [address], [place] [phone] Jackie Abdi MD 12/15/2024 Telephone [facility] [address], [place] [phone] Jackie Abdi MD Results 12/14/2024 Results Follow-Up [address] [address] Stephenie Mcdaniels MD XR CERVICAL SPINE 4V, CBC auto differential, Comprehensive Metabolic Panel, Additional followed-up results: 8 12/13/2024 1:20 PM EDT Office Visit [facility] [address] [place] [address] Stephenie Mcdaniels MD Unintentional weight loss (Primary Dx); Acute non intractable tension-type headache; Diarrhea, unspecified type; Neck pain 12/13/2024 Travel 12/13/2024 Telephone [facility] [address] [place] [address] Jackie Abdi MD Nurse Triage 11/08/2024 Refill [facility] [address] [place] [address] Jackie Abdi MD from Last 3 Months [...] 03/03/2025 1:00 PM EST Office Visit [facility] [address] [place] [address] [place], [facility] [address] [place] [address] Health Maintenance Due Date Last Done Comments [...] Procedure Name Priority Date/Time Associated Diagnosis Comments CBC WITH AUTO DIFFERENTIAL Routine 01/19/2025 11:48 AM EDT Weight loss, unintentional TSH W/REFLEX TO FT4 Routine 01/19/2025 1 1:40 AM EDT Weight loss, unintentional COMPREHENSIVE METABOLIC PANEL Routine 01/19/2025 11:40 AM EDT Weight loss, unintentional XR CERVICAL SPINE 4V Routine 12/13/2024 4:05 [...] Relevant to Health Maintenance Results * (ABNORMAL) CBC auto differential (01/19/2025 11:48 AM EDT) Only the most recent of2 resultswithin the time period is included. White Blood Count 5.1 4.8 - 10.8 X10*3/uL [facility] Red Blood Count 4.67 4.20 - 5.50 X10*6/uL [facility] Hemoglobin 12.6 12.0 - 16.0 g/dl [facility] Hematocrit 39.5 37.0 - 47.0 % [facility] Mean Corpuscular Volume 84.6 80.0 - 98.0 fL [facility] Mean Corpuscular Hemoglobin 27.0 27.0 - 33.0 pg [facility] Mean Corpuscular HGB Conc 31.9 31.0 - 35.0 g/dl [facility] Red Cell Distribution Width 16.6(H) 11.0 - 16.0 % [facility] Platelet Count 356 160 - 400 X10*3/uL [facility] Mean Platelet Volume 10.5 9.4 - 12.3 fL [facility] Neutrophils Percent Auto 52.3 45 - 73 % [facility] Imm Gran Pct Auto 0.2 0.0 - 0.4 % [facility] Lymphocytes Percent Auto 33.9 20 - 40 % [facility] Monocytes Percent Auto 10.1 2 - 11 % [facility] Eosinophils Percent Auto 2.5 0 - 4 % [facility] Basophils Percent Auto 1.0 0 - 2 % [facility] NRBC Pct Auto 0.0 0.0 - 0.2 /100WBC [facility] Neutrophils Absolute Auto 2.7 2.0 - 8.3 x10*3/uL [facility] Imm Gran Abs Auto 0.01 0.00 - 0.03 X10*3/uL [facility] Lymphocytes Absolute Auto 1.7 1.2 - 4.9 X10*3/uL [facility] Monocytes Absolute Auto 0.5 0.1 - 1.2 X10*3/uL [facility] Eosinophils Absolute Auto 0.1 0.0 - 0.4 X10*3/uL [facility] Basophils Absolute Auto 0.1 0.0 - 0.2 X10*3/uL [facility] NRBC Abs Auto 0.000 0.0 - 0.012 X10*3/uL [facility] Blood Venous blood specimen / Unknown 01/19/2025 11:48 AM EDT 01/19/2025 2:32 PM EDT Ronnell Sanderson MD LAB BLOOD ORDERABLES Final Result [facility] [address] [place] [address] [phone] * TSH W/Reflex to FT4 (01/19/2025 11:40 AM EDT) Only the most recent of2 resultswithin the time period is included. TSH reflex Free T4 0.94 0.32 - 4.0 uIU/mL [facility] Blood Venous blood specimen / Unknown 01/19/2025 11:40 AM EDT 01/19/2025 2:25 PM EDT us Ronnell Sanderson MD LAB BLOOD ORDERABLES Final Result [facility] [address] [place] [address] [phone] * (ABNORMAL) Comprehensive Metabolic Panel (01/19/2025 11:40 AM EDT) Only the most recent of2 resultswithin the time period is included. Sodium 146(H) 135 - 145 mmol/L [facility] Potassium 3.6 3.3 - 5.1 mmol/L [facility] Chloride 110(H) 96 - 108 mmol/L [facility] Carbon Dioxide 27 22 - 29 mmol/L [facility] Anion Gap 13 12 - 20 [facility] Urea Nitrogen (BUN) 13 9 - 16 mg/dL [facility] Creatinine, Serum 1.13 0.5 - 1.4 mg/dL [facility] Estimated Glomerular Filt Rate 51 [facility] Comment:Chronic Kidney Disea se: Estimated GFR < 60 mL/min/1.48f7Rydrka Kidney Disease: Estimated GFR < 15 mL/min/1.73m2 Glucose 73 60 - 115 mg/dL [facility] Calcium 9.0 8.4 - 10.2 mg/dL [facility] Bilirubin, Total 0.2 0.0 - 1.0 mg/dL [facility] Aspartate Amino Transferase 19 5 - 31 U/L [facility] Alanine Aminotransferase 20 0 - 31 U/L [facility] Total Protein 7.4 6.5 - 8.0 g/dL [facility] Albumin Level 4.4 3.5 - 5.0 g/dL [facility] Alkaline Phosphatase 84 39 - 117 U/L [facility] Blood Venous blood specimen / Unknown 01/19/2025 11:40 AM EDT 01/19/2025 2:25 PM EDT us Ronnell Sanderson MD LAB BLOOD ORDERABLES Final Result [facility] [address] [place] [address] [phone] * XR CERVICAL SPINE 4V (12/13/2024 4:05 PM EDT) Anatomical Region Laterality Modality Abdomen Radiographic Janice ging 12/13/2024 4:05 PM EDT Narrative 12/13/2024 4:31 PM EDT [facility] [address] [place] [address] XRay Report Signed Patient: Sade Fraga MR#: [id number] 4 : 1970 Acct:[id number] Age/Sex: 54 / F ADM Date: 12/13/24 Loc: HO.HHCX Attending Dr: Stephenie Chappell MD Ordering Physician: Stephenie Mcdaniels MD Date of Service: 12/13/24 Procedure(s): XR cervical spine 4V Accession Number(s): [id number] cc: Stephenie Mcdaniels MD Reason for Exam: [...] 12/13/24 1628 DD/ 1605 TD/TT: 12/13/24 1610 Testing Engineer: Procedure Note Donotuseinterpreter, Image - 12/13/[address] [address] XRay Report Signed Patient: Sade FragaMR#: [id number] 4 : 1970Acct:[id number] Age/Sex: 54 / FADM Date: 12/13/24 Loc: HO.HHCX Attending Dr: Stephenie Chappell MD Ordering Physician: Stephenie Mcdaniels MD Date of Service: 12/13/24 Procedure(s): XR cervical spine 4V Accession Number(s): [id number] cc: Stephenie Mcdaniels MD Reason for Exam: [...] 12/13/24 1628 DD/ 1605 TD/TT: 12/13/24 1610 Testing Engineer: us Stephenie Chappell MD IMG XR PROCEDURES Vinny aaliyah Result - Final * Hepatitis Panel, General (12/13/2024 2:34 PM EDT) Hepatitis A IgM Nonreactive Nonreactive [facility] Comment:IgM antibodies to HERNANDEZ V not detected; does not exclude earlyacute or recovered HAV infection. ~Hepatitis B Surface Antibody REACTIVE Nonreactive [facility] Comment:REACTIVE: > 11.99 mI U/mL Hepatitis B Core Antibody Nonreactive Nonreactive [facility] Hepatitis C Antibody Nonreactive Nonreactive [facility] Comment:Antibodies to HCV no t detected; does not exclude early acuteHCV infection. Hepatitis B Surface Ag Negative Negative [facility] Blood Venous blood specimen / Unknown 12/13/2024 2:34 PM EDT 12/13/2024 4:04 PM EDT us Stephenie Chappell MD LAB BLOOD ORDERABLES Final Result [facility] [address] [place] [phone] [phone] * HIV-1/2 Antigen and Antibodies, Fourth Generation, with Reflexes (12/13/2024 2:34 PM EDT) HIV AB/AG Nonreactive Nonreactive [facility] Comment:HIV-1 p24 Ag and/or HIV-1/HIV-2 Ab not detected.A test result that is nonreactive does not exclude thepossibility of exposure to or infection with HIV-1 and/orHIV-2. Nonreactive results in this assay for individualswith prior exposure to HIV-1 and/or HIV-2 may be due toantigen and antibody levels that are below the limit ofdetection of this assay.The [employer] HIV Ag/Ab Combo assay result andsupplemental assay results should be interpreted inconjunction with the patient's clinical presentation,history and other laboratory results. If the results areinconsistent with clinical evidence, additional testing issuggested to confirm the result. Blood Venous blood specimen / Unknown 12/13/2024 2:34 PM EDT 12/13/2024 4:04 PM EDT us Stephenie Chappell MD LAB BLOOD ORDERABLES Final Result [facility] [address] [place] [phone] * (ABNORMAL) ROSSY Screen,IFA, with Reflex to Titer and Pattern (12/13/2024 2:34 PM EDT) Anti Nuclear Antibody Screen POSITIV E(A) NEGATIVE [facility] Comment:ROSSY IFA is a first l ine screen for detecting thepresence of up to approximately 150 autoantibodies invarious autoimmune diseases. A positive ROSSY IFA resultis suggestive of autoimmune disease and reflexes totiter and pattern. Further laboratory testing may beconsidered if clinically indicated.For additional information, please refer tohttp://education.Terascala/faq/XXD103(This link is being provided for informational/educational purposes only.) ROSSY Titer 1:80(A) titer [facility] Comment:A low level ROSSY tite r may be present in pre-clinicalautoimmune diseases and normal individuals. Reference Range <1:40 Negative 1:40-1:80 Low Antibody Level >1:80 Elevated Antibody Level ROSSY Pattern Nuclear , Homogen eous(A) [facility] Comment:Homogeneous pattern is associated with systemic lupuserythematosus (SLE), drug-induced lupus and juvenileidiopathic arthritis.AC-1: HomogeneousInternational Consensus on ROSSY Patterns(https://doi.org/10.1515/adxq-3244-6808)THIS TEST WAS PERFORMED AT:[employer] [place] [phone] SCHILLING MD ROSSY Titer 2 TNP [facility] ROSSY Pattern 2 TNP [facility] ROSSY TITER 3 TNP [facility] ROSSY PATTERN 3 TNP [facility] Blood Venous blood specimen / Unknown 12/13/2024 2:34 PM EDT 12/13/2024 4:04 PM EDT Stephenie Chappell MD LAB BLOOD ORDERABLES Final Result [facility] [address] [place] [address] [phone] * Hemoglobin A1c (12/13/2024 2:34 PM EDT) Hemoglobin A1c 5.5 <6.0 % [facility] Comment:Hemoglobin A1C Refer ence Range Adults: 4.8 - 6.0 % Non diabetic: < 6.0 % Goal: < 7.0 %Additional Action Suggested: > 8.0 %Note: Hemoglobin A1c results are invalid for patients with abnormal amounts of HbF. Blood transfusions may impact the HbA1c concentration in the patient sample. Estimated Average Glucose 111 mg/dL [facility] Comment:eAG = Estimated ave rage glucose which is %A1C expressed asaverage glucose, using the formula of the W1M-JktzaajCuuseik Glucose study (ADAG), Diabetes Care, Vol.31,#8,Oct. 2007 Blood Venous blood specimen / Unknown 12/13/2024 2:34 PM EDT 12/13/2024 4:13 PM EDT us Stephenie Chappell MD LAB BLOOD ORDERABLES Final Result Performing Organization Address City/[facility]/ZIP Co de Phone Number [facility] [address] [place] [phone] * Influenza B (ID NOW Rapid Molecular) (12/13/2024 1:51 PM EDT) Influenza B Negative Negative, Indeterminate [facility] Swab 12/13/2024 1:51 PM EDT us Stephenie Chappell MD POINT OF CARE TEST EN TER/EDIT ORDERABLES Final Result Performing Organization Address [facility] Co de Phone Number [facility] [address] [place] [phone] * Influenza A (ID NOW Rapid Molecular) (12/13/2024 1:51 PM EDT) Pathologist [facility] Influenza A Negative Negative, Indeterminate [facility] Swab 12/13/2024 1:51 PM EDT us Stephenie Chappell MD POINT OF CARE TEST EN TER/EDIT ORDERABLES Final Result Performing Organization Address [facility] Co de Phone Number [facility] [address] [place] [phone] * POCT Rapid COVID Ag (12/13/2024 1:51 PM EDT) Rapid COVID Ag Negative [facility] Swab 12/13/2024 1:51 PM EDT us Stephenie Chappell MD POINT OF CARE TEST EN TER/EDIT ORDERABLES Final Result Performing Organization Address City/[facility]/ZIP Co de Phone Number [facility] [address] [place] [phone] * (ABNORMAL) Lipid Panel, Standard (09/29/2024 9:15 AM EDT) Triglycerides 132 <150 mg/dL [facility] Comment:Desirable Triglyceri de: less than 150 mg/dLBorderline High Triglyceride 150-199 mg/dLHigh Triglyceride: 200-499 mg/dLVery High Triglyceride: greater than or equal to 5OO mg/dL Cholesterol 157 <200 mg/dL [facility] Comment:Desirable Cholestero l: less than 200 mg/dLBorderline High Cholesterol: 200-239 mg/dLHigh Cholesterol: greater than 239 mg/dL LDL Cholesterol Calculated 100(H) <100 mg/dL [facility] Comment:Desirable LDL: less than 100 mg/dLNear Optimal/Above Optimal LDL: 110- 129 mg/dLBorderline High LDL: 130-159 mg/dLHigh LDL: 160-189 mg/dLVery High LDL: greater than or equal to 190 mg/dL HDL Cholesterol 31(L) >40 mg/dL [facility] Comment:Desirable HDL: great er than 40 mg/dL Note: This HDL assay may give artificially low results in patients with liver disease. Blood Venous blood specimen / Unknown 09/29/2024 9:15 AM EDT 09/29/2024 2:53 PM EDT us Jackie Abdi MD LAB BLOOD ORDERABLES Final Resul t [facility] [address] [facility] [place] [address] [phone] * BI Mammogram Screening Tomosynthesis Bilateral (06/03/2024 9:45 AM EST) Anatomical Region Laterality Modality Breast Bilateral Mammography 06/03/2024 9:45 AM EST Narrative 06/12/2024 4:59 PM EDT [facility] [address] [place] [address] [place] [address] Mammography Report Signed Patient: Sade Fraga MR#: [id number] 4 : 1970 Acct:[id number] Age/Sex: 54 / F ADM Date: 06/03/24 Loc: MAMMO Attending Dr: Pola Maldonado CNM Ordering Physician: POLA MALDONADO CNM Results: 1 Negative Date of Service: 06/03/24 Follow Up: 1 Year From [facility] Mammogram Procedure(s): MM tomosynthesis screening BI Accession Number(s): [id number] cc: Jackie Abdi MD; POLA MALDONADO CNM [...] 06/12/24 1656 DD/ 0945 TD/TT: 06/03/24 1010 Testing Engineer: Procedure Note Donotuseinterpreter, Image - 06/12/2024 [facility] [address] [place] [address] [place] [address] Mammography Report Signed Patient: Gray Fraga#: [id number] 4 : 1970Acct:[id number] Age/Sex: 54 / FADM Date: 06/03/24 Loc: MAGOO Attending Dr: Pola Maldonado CNM Ordering Physician: POLA MALDONADOesults: 1 Negative Date of Service: 06/03/24Follow Up: 1 Year From Orig ina Mammogram Procedure(s): MM tomosynthesis screening BI Accession Number(s): [id number] cc: Jackie Abdi MD; POLA MALDONADO CNM [...] 06/12/24 1656 DD/ 0945 TD/TT: 06/03/24 1010 Testing Engineer: Pola Maldonado CNM IMG BI PROCEDURES Final R esult * Cologuard?? colon cancer screening (02/23/2023 10:44 AM EST) Cologuard Result Negative Negative 03/01/20 3:14 PM EST [facility] (CLIA #:[id number]) Comment: NEGATIVE TEST RESULT. A negative Cologuard [...] Arevalo et al, N Engl J Med 2014;370(14):8021-2797) The normal value (reference range) for this assay is negative. COLOGUARD RE-SCREENING RECOMMENDATION: Periodic colorectal cancer screening is an important part of preventive healthcare for asymptomatic individuals at average risk for colorectal cancer. Following a negative Cologuard result, the [place] Cancer Society and U.S. Multi-Society Task Force screening guidelines recommend a Cologuard re-screening interval of 3 years. References: [place] [employer] Society Guideline for Colorectal Cancer Screening: https://www.cancer.org/cancer/lngsj-jtpjgi-yjlayi/dhpccvkbu-daycdevju-avoupps/ac s-rec ommendations.html.; Bean DK, Mitchell GAO, Dank WeberK, Colorectal Cancer Screening: Recommendations for Physicians and Patients from the U.S. Multi-Society Task Force on Colorectal Cancer Screening , Am J Gastroenterology 2017; 112:4910-9416. TEST DESCRIPTION: Composite algorithmic analysis of stool [...] (Javi Frank al, N Engl J Med 2014;370(14):9849-2912.) Cologuard may produce a false negative or [...] can be accessed at the following location: www.eWise/results. Additional description of the Cologuard test process, warnings and precautions can be found at www.[employer]rd.ReviverMx. Stool specimen (specimen) 02/23/2023 10:44 AM EST 02/24/2023 1:44 PM EST Jackie Abdi MD LAB MOLECULAR DIAGNOSTICS ORDERA NORA Final Result [facility] (CLIA #:[id number]) [place] [address], * Thinprep TIS PAP And HPV mRNA E6/E7, CT/NG, TRICH (04/08/2022 4:21 PM EST) Clinical Information: SCREENING, PELVIC PAIN [facility] LMP: NONE GIVEN [facility] Prev. PAP: NONE GIVEN [facility] Prev. BX: NONE GIVEN [facility] SOURCE: None given [facility] Statement Of Adequacy: [facility] Comment: Satisfactory for evaluation. Endocervical/transformation zone component present. Age and/or menstrual status not provided Interpretation/Re sult: Negative for intraepithelial lesion or malignancy. [facility] COMMENT: This Pap test has been evaluated with computer assisted technology. [facility] [employer] [place] Police Sergeant: Jose ruano [employer] [place] [employer] Comment: DMM, CT(ASCP) CT screening location: [place] [address] (Always Message) [employer] [place] [employer] Comment: EXPLANATORY NOTE: The Pap is a [...] HPV nRNA E6/E7 Not Detected Not Detected [employer] [place] [employer] Comment: Methodology: Community Recreation Coordinator-Mediated Amplification This assay detects E6/E7 viral messenger RNA (mRNA) from 14 high-risk HPV types (16,18,31,33,35,39,45,51,52,56,58,59,66,68). Cervical sources are required for HPV testing. If a vaginal source from a patient who has had a total hysterectomy with removal of cervix was submitted, please contact the testing laboratory for alternative testing options. For additional information, please refer to http://niid.to/faq/WLS862g5 (This link if provided for information/ educational purposes only.) Chlamydia trachomatis RNA, TMA, Urogenital NOT DETECTED NOT DETECTED [employer] [place] [employer] Neisseria gonorrhoeae RNA, TMA, Urogenital NOT DETECTED NOT DETECTED [employer] [place] TIDAL [employer]ROLEUM Comment [employer] [place] [employer] Comment: The analytical performance characteristics of this assay, when used to test SurePath(TM) specimens have been determined by [employer]. The modifications have not been cleared or approved by the FDA. This assay has been validated pursuant to the CLIA regulations and is used for clinical purposes. For additional information, please refer to https://Intern.BBspace/faq/OIO796 (This link is being provided for information/ educational purposes only.) Trichomonas vaginalis, QL, TMA, PAP Vial NOT DETECTED NOT DETECTED [employer] [place] [employer] Comment: The analytical performance characteristics of this assay have been determined by [employer]. The modifications have not been cleared or approved by the FDA. This assay has been validated pursuant to the CLIA regulations and is used for clinical purposes. For additional information, please refer to http://education.Sync.ME.ReviverMx/ faq/Trichomonastma (This link is being provided for information/ educational purposes only.) 04/08/2022 4:21 PM EST 04/09/2022 11:04 AM EST Narrative [facility] - 04/14/2022 10:42 AM EST FASTING: UNKNOWN Pola Maldonado CNM LAB PATHOLOGY ORDERABLES Final Result [facility] [address] [facility], [place] [address] [employer] [facility] [address] [facility], ([address]) [place] [address] from Last 3 Months or Most Recently Relevant to Health Maintenance Insurance [facility] MEDICA[facility] STAND ADULT Care Teams Chart Calculator Relationship Specialty Start Date End Date Mirta Jacobson CNP [address] [place] [address] PCP - General Family Medicine 01/26/25 Craig Boo, EAGLE [address] [place] [address] Registered Nurse Family Medicine 01/30/25 Faisal Lugo 01/30/25
== END 2025-02-08 11:58 | disposition home or self-care (01) ==
LOC: HO.HOS 09:51
PROVIDERS: PCP Student in an Organized Health Care Education/Training Program; Visit Provider Physician Assistant
DX: M25.561 Pain in right knee (principal); Z96.651 Presence of right artificial knee joint
CPT/HCPCS: 99213

== ENCOUNTER 2025-02-08 10:53 | Outpatient (REF) | payer MEDICAID, SELFPAY ==
--- NOTE | ~2025-02-08 | US_ITS ---
EXAMINATION: US TRIPLEX LOWER EXTREMITY, RIGHT CLINICAL INFORMATION: Presence of artificial knee joint COMPARISON: None available. TECHNIQUE: Color-flow triplex imaging with spectral analysis and compression Doppler were performed on the right lower extremity. FINDINGS: Respiratory variation, normal compression and augmented flow are noted throughout the right lower extremity. The visualized common femoral vein, superficial femoral vein, profunda femoral vein, popliteal vein and midcalf peroneal and posterior tibial venous segments show no evidence of deep venous thrombosis. There is no Paez's cyst. US/US venous duplex LE RT IMPRESSION: No evidence of deep venous thrombosis involving the right lower extremity. Electronically signed by: Brian Clarke MD 02/08/2025 11:26 AM CECIL
== END 2025-02-08 10:54 | disposition home or self-care (01) ==
LOC: HO.US 10:53
PROVIDERS: Visit Provider Physician Assistant
DX: R60.9 Edema, unspecified (principal); Z96.651 Presence of right artificial knee joint
CPT/HCPCS: 93971

== ENCOUNTER → 2025-02-08 10:54 | Outpatient (BNV) | payer MEDICAID, SELFPAY | PROVIDERS: Visit Provider Radiology Diagnostic Ultrasound | DX: M17.11 Unilateral primary osteoarthritis, right knee (principal); Z96.651 Presence of right artificial knee joint | CPT/HCPCS: 73562 ==

== ENCOUNTER 2025-02-08 14:51 | Outpatient (REF) | payer MEDICAID, SELFPAY ==
--- OUTSIDE RECORDS SUMMARY | 2025-02-07 13:45 | XMS_ITS | Encounter Summary ---
Author Organization [facility] Address [address] [place] [address] Care Team Providers Care Electrical Inspector Name Role Phone Jackie Abdi MD Primary Care Provider [phone] Reason for Visit * Reason Comments Follow-up 5 month Encounter Details Date Type Department Care Team (Late st Contact Info) Description 02/07/2025 1:45 PM EST Office Visit Bariatric Surgery - [address] [place] [address] Aleksandar Heaton MD [address] [place] [phone] Sleep deficient (Primary Dx); Class 1 obesity due to excess calories with body mass index (BMI) of 30.0 to 30.9 in adult, unspecified whether serious comorbidity present; Overweight; Gastroesophageal reflux disease with esophagitis without hemorrhage Social History Tobacco Use Types Packs/Day Years [...] Sign Reading Time Taken Comments Blood Pressure 114/69 02/07/2025 1:15 PM EST Pulse 72 02/07/2025 1:15 PM EST Temperature 36.6 C (97.8 F) 02/07/2025 1:15 PM EST Respiratory Rate - - Oxygen Saturation - - Inhaled Oxygen Concentration - - Weight 60.3 kg (133 lb) 02/07/2025 1:15 PM EST Height 149.9 cm (4' 11 ) 02/07/2025 1:15 PM EST Body Mass Index 26.86 02/07/2025 1:15 PM EST documented in this encounter Ordered Prescriptions Prescription Sig Dispense Quantity Refills Last Filled Start Date End Date zolpidem CR (Ambien CR) 12.5 mg CR tabletIndications: Sleep deficient Take 1 tablet (12.5 mg total) by mouth at bedtime as needed for sleep. Do not crush, chew, or split. Max Daily Amount: 12.5 mg 30 tablet 02/07/2025 5 phentermine 15 mg capsuleIndications :Overweight Take 1 capsule (15 mg total) by mouth 1 (one) time each day before breakfast. Max Daily Amount: 15 mg 30 each 02/07/2025 6 topiramate (TOPAMAX) 50 mg tabletIndications: Overweight Take 1 tablet (50 mg total) by mouth at bedtime. 30 tablet 3 02/07/2025 documented in this encounter Progress Notes * Aleksandar Heaton MD - 02/07/2025 1:45 PM EST Ms. Fraga is a 54 y.o. year old female who presents for surgical follow up regarding obesity. HPI: Ms. Fraga is s/p bypass in 2020. On phentermine and topiramate. On sulcrafate and omeprazole for GERD. Has lost 11 lbs since July. Pain controlled with medications. ROS: GENERAL: No malaise, significant unintentional weight loss, fever, chills or night sweats. HEENT: No changes in hearing or vision, no nose bleeds or other nasal problems. NECK: No lumps, goiter, pain or significant neck swelling RESPIRATORY: No cough, wheezing or shortness of breath CARDIOVASCULAR: No chest pain, leg swelling or palpitations. GI: No abdominal discomfort, nausea, vomiting, or change in bowel habits. : No dysuria, frequency or incontinence. SKIN: No lesions, rash or itching. HEMATOLOGY: No prolonged bleeding, easy bruisability. LYMPHOLOGY No swollen nodes. MUSCULOSKELETAL: No abnormalities. NEURO: No abnormalities. All other systems reviewed which are negative. 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 Nausea and vomiting 03/08/2024 Overweight (BMI 25.0-29.9) 04/22/2021 Eating disorder 10/11/2020 Hypercholesteremia 10/11/2020 Obstructive sleep apnea 10/11/2020 Gastroesophageal reflux disease with esophagitis without hemorrhage 05/03/2020 PAST SURGICAL HISTORY: Surgical History[1] SOCIAL HISTORY: Social History Tobacco Use Smoking status: Never Smokeless tobacco: Never Substance Use Topics Alcohol use: No FAMILY HISTORY: Family History[2] Family Status Relation Name Status Father Mother Alive No partnership data on file MEDICATIONS: Medications Discontinued During This Encounter Medication Reason zolpidem CR (AMBIEN CR) 6.25 mg CR tablet topiramate (TOPAMAX) 50 mg tablet Reorder phentermine 15 mg capsule Reorder ACTIVE MEDICATIONS: Medications Taking[3] ALLERGIES: Current Allergies[4] PHYSICAL EXAM: Visit Vitals BP 114/69 Pulse 72 Temp 36.6 ??C (97.8 ??F) (Temporal) Ht 1.499 m (59 ) Wt 60.3 kg (133 lb) BMI 26.86 kg/m?? Smoking Status Never BSA 1.55 m?? APPEARANCE: Alert and oriented and in no acute distress EYES: Conjunctiva normal and sclera normal and anicteric. NECK: Neck supple with no adenopathy. HEART: No JVD. LUNG: No retractions. LYMPH NODES: No gross cervical or clavicular lymphadenopathy. ABDOMEN: non-distended, EXTREMITIES: Extremities well perfused without clubbing, cyanosis, or edema. SKIN: Skin color and texture normal. No rashes. NEUROLOGIC: Alert and oriented ??3. No motor deficits in the extremities. LABS/IMAGING: ASSESSMENT: 1. Sleep deficient 2. Class 1 obesity due to excess calories with body mass index (BMI) of 30.0 to 30.9 in adult, unspecified whether serious comorbidity present 3. Overweight PLAN: 1. The patient has done very well after bariatric surgery. I will check labs to rule out any deficiencies that may have been caused by the operation. The patient will continue taking vitamin supplements and protein supplements. The patient will continue exercising and following a healthy lifestyle.Follow up in 6 months. 2. Increase zolpidem. 3. Continue phentermine and topiramate to prevent weight regain.. 4. Continue PPI and sulcrafate for GERD [1] Past Surgical History: Procedure Laterality Date BUNIONECTOMY PROCEDURE: BUNION SURGERY, SIMPLE REMOVAL SECTION PROCEDURE: CO DELIVERY ONLY CHOLECYSTECTOMY PROCEDURE: CO LAPAROSCOPY SURG CHOLECYSTECTOMY OTHER SURGICAL HISTORY PROCEDURE: CO ARTHRS AID TIBIAL FRACTURE PROXIMAL UNICONDYLAR [2] Family History Problem Relation Name Age of Onset Stomach cancer Father Hypertension Mother Diabetes Mother Other (Other: heart failure) Mother [3] Outpatient Medications Marked as Taking for the 02/07/25 encounter (Office Visit) with Aleksandar Heaton MD Medication Sig Dispense Refill phentermine 15 mg capsule Take 1 capsule (15 mg total) by mouth 1 (one) time each day before breakfast. Max Daily Amount: 15 mg 30 each 0 topiramate (TOPAMAX) 50 mg tablet Take 1 tablet (50 mg total) by mouth at bedtime. 30 tablet 3 [4] Allergies Allergen Reactions Sulfamethoxazole-Trimethoprim Angioedema documented in this encounter Plan of Treatment Upcoming Encounters Date Type Department Care Team (Late st Contact Info) Description 08/22/2025 11:15 AM EDT Office Visit Bariatric Surgery - [address] [phone] Aleksandar Heaton MD [address] [place] [phone] documented as of this encounter Visit Diagnoses Diagnosis Sleep deficient- Primary Problems related to lack of adequate sleep Class 1 obesity due to excess calories with body mass index (BMI) of 30.0 to 30.9 in adult, unspecified whether serious comorbidity present Overweight Gastroesophageal reflux disease with esophagitis without hemorrhage documented in this encounter Discontinued Medications Medication Sig Discontinue Reason Start Date End Da te zolpidem CR (AMBIEN CR) 6.25 mg CR tabletIndications:Over weight Take 1 tablet (6.25 mg total) by mouth at bedtime as needed for sleep. Do not crush, chew, or split. Max Daily Amount: 6.25 mg 11/19/2024 02/07/2025 topiramate (TOPAMAX) 50 mg tabletIndications:Class 1 obesity due to excess calories with body mass index (BMI) of 30.0 to 30.9 in adult, unspecified whether serious comorbidity present Take 1 tablet (50 mg total) by mouth at bedtime. Reorder 10/05/2024 02/07/2025 phentermine 15 mg capsuleIndications:Class 1 obesity due to excess calories with body mass index (BMI) of 30.0 to 30.9 in adult, unspecified whether serious comorbidity present Take 1 capsule (15 mg total) by mouth 1 (one) time each day before breakfast. Max Daily Amount: 15 mg Reorder 11/16/2024 02/07/2025 documented as of this encounter Care Teams Electrical Inspector Relationship Specialty Start Date End Date Jackie Abdi MD [address] [place] [id number] PCP - General 10/20/16 documented as of this encounter
--- NOTE | ~2025-02-08 | XR_ITS ---
EXAMINATION: XR KNEE, RIGHT CLINICAL INFORMATION: M17.11 - Unilateral primary osteoarthritis, right knee COMPARISON: X-ray 06/16/2022 TECHNIQUE: Three views of the right knee. FINDINGS: Redemonstrated is total knee arthroplasty, with expected position and alignment. No findings suggest hardware failure. No acute periprosthetic fracture. Bone demineralization. Possible small suprapatellar joint fluid. The frontal image of the left knee demonstrates bone demineralization, no acute findings. XR/XR knee RT 3V IMPRESSION: Status post right total knee arthroplasty. No radiographic evidence of acute periprosthetic fracture or findings suggest hardware failure. Electronically signed by: Brian Clarke MD 02/09/2025 07:37 AM EST
--- OUTSIDE RECORDS SUMMARY | 2025-02-09 18:06 | XMS_ITS | Encounter Summary ---
Author Organization [employer] Address 75 [facility] 7t [place] [address] Care Team Providers Care Roaster Supervisor Name Role Phone Jackie Abdi MD Primary Care Provider [phone] Mirta Jacobson CNP Primary Care Provider [phone] Craig Boo RN Unavailable [phone] Faisal Lugo Unavailable Encounter Details Date Type Department Care Team (Late st Contact Info) Description 08/25/2024 Orders Only [facility] [address] [place] [address] Provider, MD Sagar Social History Tobacco Use [...] Description 03/03/2025 1:00 PM EST Office Visit [facility] MED & PEDS 505 [place] [address] Mirta Jacobson CNP 505 [place] [address] documented as of this encounter Procedures Procedure [...] documented as of this encounter Care Teams Roaster Supervisor Relationship Specialty Start Date End Date Jackie Abdi MD [address] [place] [address] PCP - General Family Medicine 04/29/13 01/25/25 Mirta Jacobson CNP 505 [place] [address] PCP - General Family Medicine 01/26/25 Craig Boo, EAGLE 505 [place] [address] Registered Nurse Family Medicine 01/30/25 Faisal Lugo 01/30/25 documented as of this encounter
--- OUTSIDE RECORDS SUMMARY | 2025-02-09 18:06 | XMS_ITS | Encounter Summary ---
Author Organization [employer] Address 75 [facility] 7t [place] [address] Care Team Providers Care Esl Tutor Name Role Phone Jackie Abdi MD Primary Care Provider [phone] Mirta Jacobson CNP Primary Care Provider [phone] Craig Boo RN Unavailable [phone] Faisal Lugo Unavailable Reason for Visit * Reason Onset Date Comments Med Refill 12/05/2022 Encounter Details Date Type Department Care Team (Late Contact Info) Description 12/05/2022 Refill [facility] MED & PEDS 505 [place] [address] Abby Duran MD Social History Tobacco Use [...] Upcoming Encounters Date Type Department Care Team ([facility] Contact Info) Description 03/03/2025 1:00 PM EST Office Visit [facility] MED & PEDS [address] [place] [address] Mirta Jacobson CNP [address] [place] [address] documented as of this encounter Visit Diagnoses Not on filedocumented in this encounter Additional Health Concerns Assessment Noted Time PHQ-9 Depression Total Score: 21 023 8:57 AM EDT documented as of this encounter Care Teams Esl Tutor Relationship Specialty Start Date End Date Jackie Abdi MD [address] [place] [address] PCP - General Family Medicine 04/29/13 01/25/25 Mirta Jacobson CNP [address] [place] [address] PCP - General Family Medicine 01/26/25 Craig Boo, EAGLE 505 [place] [address] Registered Nurse Family Medicine 01/30/25 Faisal Lugo 01/30/25 documented as of this encounter
--- OUTSIDE RECORDS SUMMARY | 2025-02-09 18:06 | XMS_ITS | Clinical Summary ---
Author Organization [address] [facility] Address 175 [place] [address] Phone Care Team Providers Care Border Police Name Role Phone Jackie Abdi MD Primary [...] PM EST Office Visit Bariatric Surgery - [address] [place] [address] Aleksandar Heaton MD Sleep deficient [...] Date Site/Laterality Comments OTHER SURGICAL HISTORY PROCEDURE: [place] ARTHRS AID TIBIAL FRACTURE PROXIMAL UNICONDYLAR CHOLECYSTECTOMY PROCEDURE: [place] LAPAROSCOPY SURG CHOLECYSTECTOMY BUNIONECTOMY PROCEDURE: BUNION SURGERY, SIMPLE REMOVAL SECTION PROCEDURE: [place] DELIVERY ONLY Medical History Medical History Date [...] AM EDT Office Visit Bariatric Surgery - [address] [place] [address] Aleksandar Heaton MD [address] [place] [phone] Health Maintenance Due Date Last Done [...] to direct LDL (06/17/2024 10:12 AM EDT) [facility] Cholesterol 230(H) 0 - 200 mg/dL LAB CHEMISTRY METHOD 06/17/2024 2:13 PM EDT [facility] Triglycerides 155(H) 0 - 150 mg/dL LAB CHEMISTRY METHOD 06/17/2024 2:13 PM EDT [facility] HDL 48 >=40 mg/dL LAB CHEMISTRY METHOD 06/17/2024 2:13 PM EDT [facility] LDL Calculated 151(H) 0 - 100 mg/dL LAB CHEMISTRY METHOD 06/17/2024 2:13 PM EDT [facility] VLDL Cholesterol Cristofer 31 mg/dL LAB CHEMISTRY METHOD 06/17/2024 2:13 PM EDT [facility] Non HDL Chol. (LDL+VLDL) 182(H) <145 mg/dL LAB CHEMISTRY METHOD 06/17/2024 2:13 PM T [facility] Chol/HDL Ratio 4.8(H) 0.0 - 4.4 LAB CHEMISTRY METHOD 06/17/2024 2:13 PM EDT [facility] Blood Venous blood specimen / Unknown Venipuncture / Unknown 06/17/2024 10:12 AM EDT 06/17/2024 11:07 AM EDT Aleksandar Heaton MD LAB BLOOD ORDERABLES Final R esult [facility] [address] [place] [address], * Hepatitis C Screening (09/22/2023) Hepatitis C Screening abstracted Historical Provider HEALTH MAINTENANCE Final Result from Last 3 Months or Most Recently Relevant to Health Maintenance Insurance MEDICAID - [place] Care Teams Border Police Relationship Specialty Start Date End Date Jackie Abdi MD [address] [place] [address] PCP - General 10/20/16
--- OUTSIDE RECORDS SUMMARY | 2025-02-09 18:06 | XMS_ITS | Clinical Summary ---
Author Organization [facility] Address [address] [place] [address] Care Team Providers Care Ground Support Equipment Fitter Name Role Phone Jackie Abdi MD Primary Care Provider [phone] Allergies No known active allergies Medications omeprazole [...] Insurance Medicaid [place] Medicaid [place] Care Teams Ground Support Equipment Fitter Relationship Specialty Start Date End Date Jackie Abdi MD [address] [place] [address] PCP - General 04/09/20
--- OUTSIDE RECORDS SUMMARY | 2025-02-09 18:06 | XMS_ITS | Encounter Summary ---
Author Organization [employer] Address [address] [place] [address] 7t [place] [address] Care Team Providers Care Manufacturing Engineer Automotive Name Role Phone Jackie Abdi MD Primary Care Provider [phone] Mirta Jacobson CNP Primary Care Provider [phone] Craig Boo RN Unavailable [phone] Faisal Lugo Unavailable Encounter Details Date Type Department Care Team (Late st Contact Info) Description 03/18/2022 Orders Only [facility] MED & PEDS [address] [place] [address] Marielos Hooks LPN Social History Tobacco Use [...] Description 03/03/2025 1:00 PM EST Office Visit [facility] MED & PEDS [address] [place], [place] [phone] Mirta Jacobson CNP 505 [place] [address] documented as of this encounter Visit Diagnoses Not on filedocumented in this encounter Care Teams Manufacturing Engineer Automotive Relationship Specialty Start Date End Date Jackie Abdi MD [address] [place] [address] PCP - General Family Medicine 04/29/13 01/25/25 Mirta Jacobson CNP 505 [place] [address] PCP - General Family Medicine 01/26/25 Craig Boo RN 505 [place] [address] Registered Nurse Family Medicine 01/30/25 Faisal Lugo 01/30/25 documented as of this encounter
--- OUTSIDE RECORDS SUMMARY | 2025-02-09 18:06 | XMS_ITS ---
Author Organization [employer] Address 75 [facility] 7t [place] [address] Care Team Providers Care Marketing Specialist Name Role Phone Mirta Jacobson CNP Primary Care Provider [phone] Craig Boo RN Unavailable [phone] Faisal Lugo Unavailable CM Complex Status:Outreach In Progress (Enrolling) Start date:01/30/2025 Enrollment reason:ADT Feed Overview ADT- Pt admitted to [facility] on 01/28/25. Case Team Name Relationship Phone Craig Boo RN(Responsible Staff) Registered N [facility] [phone] Continued Care and Services Coordination
--- OUTSIDE RECORDS SUMMARY | 2025-02-09 18:06 | XMS_ITS | Encounter Summary ---
Author Organization [employer] Address 75 [facility] [address] [place] [address] Care Team Providers Care Development Analyst Name Role Phone Jackie Abdi MD Primary Care Provider [phone] Mirta Jacobson CNP Primary Care Provider [phone] Craig Boo RN Unavailable [phone] Faisal Lugo Unavailable Encounter Details Date Type Department Care Team ([facility] Contact Info) Description 06/03/2022 Orders Only [facility] MED & PEDS [address] [place], [place] [phone] Kaylin Kaur MD 505 [place], [place] [phone] Mid-back pain, acute (Primary Dx) Social History [...] Description 03/03/2025 1:00 PM EST Office Visit [facility] MED & PEDS 505 [place] [address] Mirta Jacobson CNP 505 [place] [address] documented as of this encounter Visit Diagnoses Diagnosis Mid-back pain, acute- Primary documented in this encounter Care Teams Development Analyst Relationship Specialty Start Date End Date Jackie Abdi MD [address] [place] [address] PCP - General Family Medicine 04/29/13 01/25/25 Mirta Jacobson CNP 505 [place] [address] PCP - General Family Medicine 01/26/25 Craig Boo, EAGLE 505 [place] [address] Registered Nurse Family Medicine 01/30/25 Faisal Lugo 01/30/25 documented as of this encounter
--- OUTSIDE RECORDS SUMMARY | 2025-02-09 18:06 | XMS_ITS | Encounter Summary ---
Author Organization [employer] Address [address] [facility] [address] 7t [place] [address] Care Team Providers Care Video Tape Duplicator Name Role Phone Jackie Abdi MD Primary Care Provider [phone] Mirta Jacobson CNP Primary Care Provider [phone] Craig Boo RN Unavailable [phone] Faisal Lugo Unavailable Encounter Details Date Type Department Care Team (Latest Contact Info) Description 01/20/2025 Results Follow-Up [facility] MED & PEDS [address] [place] [address] Yudith Godinez RN Comprehensive Metabolic Panel, TSH [...] Description 03/03/2025 1:00 PM EST Office Visit [facility] MED & PEDS 505 [place] [address] Mirta Jacobson CNP 505 [place] [address] documented as of this encounter Visit Diagnoses Not on filedocumented in this encounter Additional Health Concerns Assessment Noted Time PHQ-9 Depression Total Score: 14 025 11:23 AM EST documented as of this encounter Care Teams Video Tape Duplicator Relationship Specialty Start Date End Date Jackie Abdi MD 230 [place] [address] PCP - General Family Medicine 04/29/13 01/25/25 Mirta Jacobson CNP 505 [place] [address] PCP - General Family Medicine 01/26/25 Craig Boo RN 505 [place] [address] Registered Nurse Family Medicine 01/30/25 Faisal Lugo 01/30/25 documented as of this encounter
--- OUTSIDE RECORDS SUMMARY | 2025-02-09 18:06 | XMS_ITS | Encounter Summary ---
Author Organization [employer] Address [address] [facility] [address] 7t [place] [address] Care Team Providers Care Registered Radiographer Name Role Phone Mirta Jacobson CNP Primary Care Provider [phone] Craig Boo RN Unavailable [phone] Faisal Lugo Unavailable Reason for Visit * Reason Comments Care Coordination C3/W Faisal day, Chart review Encounter Details Date Type Department Care Team (Latest Contact Info) Description 01/30/2025 Patient Outreach [facility] MEDICINE [address] [place] [address] Mirta Jacobson CNP 505 [place] [address] Care Coordination (C3CM/CHW Faisal Lugo, Chart review) [...] Description 03/03/2025 1:00 PM EST Office Visit [facility] CH[facility] MED & PEDS 505 [place] [address] Mirta Jacobson CNP 505 [place] [address] documented as of this encounter Visit Diagnoses Not on filedocumented in this encounter Additional Health Concerns Assessment Noted Time PHQ-9 Depression Total Score: 14 025 11:23 AM EST documented as of this encounter Care Teams Registered Radiographer Relationship Specialty Start Date End Date Mirta Jacobson CNP 505 [place] [address] PCP - General Family Medicine 01/26/25 Craig Boo, EAGLE 505 [place] [address] Registered Nurse Family Medicine 01/30/25 Faisal Lugo 01/30/25 documented as of this encounter
--- OUTSIDE RECORDS SUMMARY | 2025-02-09 18:06 | XMS_ITS | Encounter Summary ---
Author Organization [employer] Address 75 [facility] 7t [place] [address] Care Team Providers Care Automobile Mechanic Radiator Name Role Phone Jackie Abdi MD Primary Care Provider [phone] Mirta Jacobson CNP Primary Care Provider [phone] Craig Boo RN Unavailable [phone] Faisal Lugo Unavailable Reason for Visit * Reason Comments Med Refill Encounter Details Date Type Department Care Team ([facility] st Contact Info) Description 10/23/2023 Refill [facility] CHC MED & PEDS 505 [place], [place] [phone] Jackie Abdi MD 505 [place], [place] [phone] Social History Tobacco Use Types Packs/Day Years [...] 03/03/2025 1:00 PM EST Office Visit [facility] CH[facility] MED & PEDS 505 [place] [address] Mirta Jacobson CNP 505 [place] [address] documented as of this encounter Visit Diagnoses Not on filedocumented in this encounter Additional Health Concerns Assessment Noted Time PHQ-9 Depression Total Score: 21 023 8:57 AM EDT documented as of this encounter Care Teams Automobile Mechanic Radiator Relationship Specialty Start Date End Date Jackie Abdi MD [address] [place] [address] PCP - General Family Medicine 04/29/13 01/25/25 Mirta Jacobson CNP 505 [place] [address] PCP - General Family Medicine 01/26/25 Craig Boo, EAGLE 505 [place] [address] Registered Nurse Family Medicine 01/30/25 Faisal Lugo 01/30/25 documented as of this encounter
--- OUTSIDE RECORDS SUMMARY | 2025-02-09 18:06 | XMS_ITS | Encounter Summary ---
Author Organization [employer] Address 75 [facility] 7t [place] [address] Care Team Providers Care Coordinator Of Genetic Services Name Role Phone Jackie Abdi MD Primary Care Provider [phone] Mirta Jacobson CNP Primary Care Provider [phone] Craig Boo RN Unavailable [phone] Faisal Lugo Unavailable Encounter Details Date Type Department Care Team ([facility] st Contact Info) Description 03/11/2023 [facility] [address] [place] [address] Jackie Abdi MD [address] [place], [place] [phone] Social History Tobacco Use Types Packs/Day Years [...] Description 03/03/2025 1:00 PM EST Office Visit [facility] MED & PEDS 505 [place] [address] Mirta Jacobson CNP 505 [place] [address] documented as of this encounter Visit Diagnoses Not on filedocumented in this encounter Additional Health Concerns Assessment Noted Time PHQ-9 Depression Total Score: 21 023 8:57 AM EDT documented as of this encounter Care Teams Coordinator Of Genetic Services Relationship Specialty Start Date End Date Jackie Abdi MD [address] [place] [address] PCP - General Family Medicine 04/29/13 01/25/25 Mirta Jacobson CNP [address] [place] [address] PCP - General Family Medicine 01/26/25 Craig Boo, EAGLE 505 [place] [address] Registered Nurse Family Medicine 01/30/25 Faisal Lugo 01/30/25 documented as of this encounter
--- OUTSIDE RECORDS SUMMARY | 2025-02-09 18:06 | XMS_ITS | Encounter Summary ---
Author Organization [employer] Address 75 [facility] 7t [place] [address] Care Team Providers Care Food And Nutrition Services Supervisor Name Role Phone Jackie Abdi MD Primary Care Provider [phone] Mirta Jacobson CNP Primary Care Provider [phone] Craig Boo RN Unavailable [phone] Faisal Lugo Unavailable Reason for Visit * Reason Onset Date Comments Med Refill 02/26/2023 Encounter Details Date Type Department Care Team ([facility] st Contact Info) Description 02/26/2023 Refill [facility] CHC MED & PEDS 505 [place], [place] [phone] Jackie Abdi MD 505 [place], [place] [phone] Social History Tobacco Use Types Packs/Day Years [...] Description 03/03/2025 1:00 PM EST Office Visit [facility] CHC MED & PEDS 505 [place] [address] Mirta Jacobson CNP 505 [place] [address] documented as of this encounter Visit Diagnoses Not on filedocumented in this encounter Additional Health Concerns Assessment Noted Time PHQ-9 Depression Total Score: 21 023 8:57 AM EDT documented as of this encounter Care Teams Food And Nutrition Services Supervisor Relationship Specialty Start Date End Date Jackie Abdi MD [address] [place] [address] PCP - General Family Medicine 04/29/13 01/25/25 Mirta Jacobson CNP 505 [place] [address] PCP - General Family Medicine 01/26/25 Craig Boo, EAGLE 505 [place] [address] Registered Nurse Family Medicine 01/30/25 Faisal Lugo 01/30/25 documented as of this encounter
--- OUTSIDE RECORDS SUMMARY | 2025-02-09 18:06 | XMS_ITS | Encounter Summary ---
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 Encounter Details Date Type Department Care Team (Late st Contact Info) Description 09/09/2023 Telephone [facility] CHC ADULT DENTAL [address] [place] [address] Sharon Fernandez DMD supervisor painting Social History Tobacco Use Types Packs/Day Years [...] Patient called in stating hat she contacted [facility] to see where she can go for [...] [facility] MED & PEDS [address] [place] [address] Mirta Jacobosn CNP 505 [place] [address] documented as of this encounter Visit Diagnoses Not on filedocumented in this encounter Additional Health Concerns Assessment Noted Time PHQ-9 Depression Total Score: 21 023 8:57 AM EDT documented as of this encounter Care Teams Manager Group Home Relationship Specialty Start Date End Date Jackie Abdi MD [address] [place] [address] PCP - General Family Medicine 04/29/13 01/25/25 Mirta Jacobson CNP 505 [place] [address] PCP - General Family Medicine 01/26/25 Craig Boo, EAGLE 505 [place] [address] Registered Nurse Family Medicine 01/30/25 Faisal Lugo 01/30/25 documented as of this encounter
--- OUTSIDE RECORDS SUMMARY | 2025-02-09 18:06 | XMS_ITS | Encounter Summary ---
Author Organization [employer] Address [address] [facility] [address] 7t [place] [address] Care Team Providers Care Golf Shoe Spike Assembler Name Role Phone Jackie Abdi MD Primary Care Provider [phone] Mirta Jacobson CNP Primary Care Provider [phone] Craig Boo RN Unavailable [phone] Faisal Lugo Unavailable Reason for Visit * Reason Onset Date Comments Nurse Triage 08/03/2023 Encounter Details Date Type Department Care Team (Late st Contact Info) Description 08/03/2023 Telephone [facility] MEDICINE [address] [place] [address] Jackie Abdi MD [address] [place], [place] [phone] Nurse Triage Social History Tobacco Use Types [...] pt states is currently at the [facility] for evaluation. [...] Description 03/03/2025 1:00 PM EST Office Visit [facility] CHC MED & PEDS 505 [place], [place] [phone] Mirta Jacobson CNP 505 [place] [address] documented as of this encounter Visit Diagnoses Not on filedocumented in this encounter Additional Health Concerns Assessment Noted Time PHQ-9 Depression Total Score: 21 023 8:57 AM EDT documented as of this encounter Care Teams Golf Shoe Spike Assembler Relationship Specialty Start Date End Date Jackie Abdi MD [address] [place] [address] PCP - General Family Medicine 04/29/13 01/25/25 Mirta Jacobson CNP 505 [place] [address] PCP - General Family Medicine 01/26/25 Craig Boo, EAGLE 505 [place], [place] [phone] Registered Nurse Family Medicine 01/30/25 Faisal Lugo 01/30/25 documented as of this encounter
--- OUTSIDE RECORDS SUMMARY | 2025-02-09 18:06 | XMS_ITS | Encounter Summary ---
Author Organization [employer] Address 75 [facility] 7t [place] [address] Care Team Providers Care Rehabilitation Aide Name Role Phone Jackie Abdi MD Primary Care Provider [phone] Mirta Jacobsno CNP Primary Care Provider [phone] Craig Boo RN Unavailable [phone] Faisal Lugo Unavailable Reason for Visit * Reason Onset Date Comments Med Refill 10/24/2022 Encounter Details Date Type Department Care Team (Late st Contact Info) Description 10/24/2022 Refill [facility] MEDICINE 230 [place] [address] Jackie Abdi MD 505 [place] [address] Social History Tobacco Use Types Packs/Day Years [...] Description 03/03/2025 1:00 PM EST Office Visit [facility] CHC MED & PEDS 505 [place] [address] Mirta Jacobson CNP 505 [place] [address] documented as of this encounter Visit Diagnoses Not on filedocumented in this encounter Additional Health Concerns Assessment Noted Time PHQ-9 Depression Total Score: 21 023 8:57 AM EDT documented as of this encounter Care Teams Rehabilitation Aide Relationship Specialty Start Date End Date Jackie Abdi MD [address] [place] [address] PCP - General Family Medicine 04/29/13 01/25/25 Mirta Jacobson CNP 505 [place] [address] PCP - General Family Medicine 01/26/25 Craig Boo, RN 505 [place] [address] Registered Nurse Family Medicine 01/30/25 Faisal Lugo 01/30/25 documented as of this encounter
--- OUTSIDE RECORDS SUMMARY | 2025-02-09 18:06 | XMS_ITS | Encounter Summary ---
Author Organization [employer] Address [address] [facility] [address] 7t [place] [address] Care Team Providers Care Lavatory Attendant Name Role Phone Jackie Abdi MD Primary Care Provider [phone] Mirta Jacobson CNP Primary Care Provider [phone] Craig Boo RN Unavailable [phone] Faisal Lugo Unavailable Reason for Visit * Reason Onset Date Comments Referral 08/26/2023 Encounter Details Date Type Department Care Team (Late st Contact Info) Description 08/26/2023 Telephone [facility] MEDICINE 230 [place] [address] Jackie Abdi MD [address] [place], [place] [phone] Referral Social History Tobacco Use Types Packs/Day [...] EDT Tc from pt was advised by powder mill operator office to request new referral due not being seen until 2020. Address: [address] [place] [address] [address] [facility] [address] Facility Name: [facility]. Type of Specialist: Antenna Rigger Pt is also requesting referral for a urologist and or dairy hand due to some recent concerns. (Ptwas triaged) If any questions please contact pt at [phone]. documented in this encounter Plan of Treatment Upcoming Encounters Date Type Department Care Team (Late st Contact Info) Description 03/03/2025 1:00 PM EST Office Visit [facility] MED & PEDS 505 [place] [address] Mirta Jacobson, JEFF 505 [place] [address] documented as of this encounter Visit Diagnoses Not on filedocumented in this encounter Additional Health Concerns Assessment Noted Time PHQ-9 Depression Total Score: 21 023 8:57 AM EDT documented as of this encounter Care Teams Lavatory Attendant Relationship Specialty Start Date End Date Jackie Abdi MD [address] [place] [address] PCP - General Family Medicine 04/29/13 01/25/25 Mirta Jacobson CNP 505 [place] [address] PCP - General Family Medicine 01/26/25 Craig Boo, EAGLE 505 [place] [address] Registered Nurse Family Medicine 01/30/25 Faisal Lugo 01/30/25 documented as of this encounter
--- OUTSIDE RECORDS SUMMARY | 2025-02-09 18:06 | XMS_ITS | Encounter Summary ---
Author Organization [employer] Address [address] [facility] 7t [place] [address] Care Team Providers Care Manufacture Specialist Name Role Phone Jackie Abdi MD Primary Care Provider [phone] Mirta Jacobson CNP Primary Care Provider [phone] Craig Boo RN Unavailable Faisal Lugo Unavailable Reason for Visit * Reason Onset Date Comments call back 06/03/2022 Encounter Details Date Type Department Care Team (Late st Contact Info) Description 06/03/2022 Telephone [facility] MEDICINE 230 [place] [address] Jackie Abdi MD [address] [place], [place] [phone] call back Social History Tobacco Use Types [...] a call back. Please contact pt at [phone] documented in this encounter Plan of Treatment Upcoming Encounters Date Type Department Care Team ([facility] st Contact Info) Description 03/03/2025 1:00 PM EST Office Visit [facility] CHC MED & PEDS 505 [place], [place] [phone] Mirta Jacobson CNP 505 [place] [address] documented as of this encounter Visit Diagnoses Not on filedocumented in this encounter Care Teams Manufacture Specialist Relationship Specialty Start Date End Date Jackie Abdi MD [address] [place] [address] PCP - General Family Medicine 04/29/13 01/25/25 Mirta Jacobson CNP 505 [place] [address] PCP - General Family Medicine 01/26/25 Craig Boo, RN 505 [place] [address] Registered Nurse Family Medicine 01/30/25 Faisal Lugo 01/30/25 documented as of this encounter
--- OUTSIDE RECORDS SUMMARY | 2025-02-09 18:06 | XMS_ITS | Encounter Summary ---
Author Organization [employer] Address [address] [facility] 7t [place] [address] Care Team Providers Care Graphic Illustrator Name Role Phone Jackie Abdi MD Primary Care Provider [phone] Mirta Jacobson CNP Primary Care Provider [phone] Craig Boo RN Unavailable [phone] Faisal Lugo Unavailable Encounter Details Date Type Department Care Team (Late Contact Info) Description 10/01/2022 Abstract [facility] MEDICINE 230 [place] [address] Jackie Abdi MD 505 [place], [place] [phone] Social History Tobacco Use Types Packs/Day Years [...] Description 03/03/2025 1:00 PM EST Office Visit [facility] CHC MED & PEDS 505 [place] [address] Mirta Jacobson CNP 505 [place] [address] documented as of this encounter Visit Diagnoses Not on filedocumented in this encounter Additional Health Concerns Assessment Noted Time PHQ-9 Depression Total Score: 21 06/26/ 023 8:57 AM EDT documented as of this encounter Care Teams Graphic Illustrator Relationship Specialty Start Date End Date Jackie Abdi MD [address] [place] [address] PCP - General Family Medicine 04/29/13 01/25/25 Mirta Jacobson CNP 505 [place] [address] PCP - General Family Medicine 01/26/25 Craig Boo, EAGLE 505 [place] [address] Registered Nurse Family Medicine 01/30/25 Faisal Lugo 01/30/25 documented as of this encounter
--- OUTSIDE RECORDS SUMMARY | 2025-02-09 18:06 | XMS_ITS | Encounter Summary ---
Author Organization [employer] Address [address] [facility] [address] 7t [place] [address] Care Team Providers Care Special Forces Officer Name Role Phone Jackie Abdi MD Primary Care Provider [phone] Mirta Jacobson CNP Primary Care Provider [phone] Craig Boo RN Unavailable [phone] Faisal Lugo Unavailable Reason for Visit * Reason Comments Med Refill Encounter Details Date Type Department Care Team (Late st Contact Info) Description 06/08/2023 Refill [facility] MEDICINE 230 [place] [address] Jackie Abdi MD [address] [place], [place] [phone] Depressed mood Social History Tobacco Use Types [...] Upcoming Encounters Date Type Department Care Team ([facility] st Contact Info) Description 03/03/2025 1:00 PM EST Office Visit [facility] CHC MED & PEDS 505 [place] [address] Mirta Jacobson CNP 505 [place] [address] documented as of this encounter Visit Diagnoses Diagnosis Depressed mood documented in this encounter Additional Health Concerns Assessment Noted Time PHQ-9 Depression Total Score: 21 023 8:57 AM EDT documented as of this encounter Care Teams Special Forces Officer Relationship Specialty Start Date End Date Jackie Abdi MD 230 [place] [address] PCP - General Family Medicine 04/29/13 01/25/25 Mirta Jacobson CNP 505 [place] [address] PCP - General Family Medicine 01/26/25 Craig Boo, RN 505 [place] [address] Registered Nurse Family Medicine 01/30/25 Faisal Lugo 01/30/25 documented as of this encounter
--- OUTSIDE RECORDS SUMMARY | 2025-02-09 18:06 | XMS_ITS | Encounter Summary ---
Author Organization [email or web address] Address [address] [facility] 7t [place] [address] Care Team Providers Care Staffing Program Manager Name Role Phone Jackie Abdi MD Primary Care Provider [phone] Mirta Jacobson CNP Primary Care Provider [phone] Craig Boo RN Unavailable [phone] Faisal Lugo Unavailable Reason for Visit * Reason Onset Date Comments Results 04/30/2022 Encounter Details Date Type Department Care Team (Late st Contact Info) Description 04/30/2022 Telephone [facility] MEDICINE 230 [place] [address] Jackie Abdi MD [address] [place], [place] [phone] Results Social History Tobacco Use Types Packs/Day [...] regarding xray results Please contact pt at [phone] documented in this encounter Plan of Treatment Upcoming Encounters Date Type Department Care Team ([facility] st Contact Info) Description 03/03/2025 1:00 PM EST Office Visit [facility] MED & PEDS 505 [place], [place] [phone] Mirta Jacobson CNP 505 [place] [address] documented as of this encounter Visit Diagnoses Not on filedocumented in this encounter Care Teams Staffing Program Manager Relationship Specialty Start Date End Date Jackie Abdi MD [address] [place] [address] PCP - General Family Medicine 04/29/13 01/25/25 Mirta Jacobson CNP 505 [place], [place] [phone] PCP - General Family Medicine 01/26/25 Craig Boo, EAGLE [address] [place] [address] Registered Nurse Family Medicine 01/30/25 Faisal Lugo 01/30/25 documented as of this encounter
--- OUTSIDE RECORDS SUMMARY | 2025-02-09 18:06 | XMS_ITS | Encounter Summary ---
Author Organization [employer] Address [address] [facility] 7t [place] [address] Care Team Providers Care Traffic Administrator Name Role Phone Jackie Abdi MD Primary Care Provider [phone] Mirta Jacobson CNP Primary Care Provider [phone] Craig Boo RN Unavailable [phone] Faisal Lugo Unavailable Reason for Visit * Reason Comments Med Refill Encounter Details Date Type Department Care Team ([facility] st Contact Info) Description 09/01/2023 Refill [facility] CHC MED & PEDS 505 [place], [place] [phone] Ronnell Sanderson MD 505 [place], [place] [phone] Acute pain of right shoulder Social History [...] Description 03/03/2025 1:00 PM EST Office Visit [facility] CHC MED & PEDS 505 [place] [address] Mirta Jacobson CNP 505 [place] [address] documented as of this encounter Visit Diagnoses Diagnosis Acute pain of right shoulder documented in this encounter Additional Health Concerns Assessment Noted Time PHQ-9 Depression Total Score: 21 023 8:57 AM EDT documented as of this encounter Care Teams Traffic Administrator Relationship Specialty Start Date End Date Jackie Abdi MD [address] [place] [address] PCP - General Family Medicine 04/29/13 01/25/25 Mirta Jacobson CNP 505 [place] [address] PCP - General Family Medicine 01/26/25 Craig Boo, EAGLE 505 [place] [address] Registered Nurse Family Medicine 01/30/25 Faisal Lugo 01/30/25 documented as of this encounter
--- OUTSIDE RECORDS SUMMARY | 2025-02-09 18:06 | XMS_ITS | Encounter Summary ---
Author Organization [employer] [facility] [employer] [employer] Address [address] [facility] [address] [address] 7t [place] [address] Care Team Providers Care Clinical Microbiologist Name Role Phone Jackie Abdi MD Primary Care Provider [phone] Mirta Jacobson CNP Primary Care Provider [phone] Craig Boo RN Unavailable [phone] Faisal Lugo Unavailable Encounter Details Date Type Department Care Team (Late st Contact Info) Description 12/07/2023 Orders Only [facility]ALK[facility] 230 [place], [place] [phone] Hiren Garcia MD 230 [place], [place] [phone] Social History Tobacco Use Types Packs/Day Years [...] [facility] 505 [place], [place] [phone] Mirta Jacobson, [facility] 505 [place], [place] [phone] documented as of this encounter Procedures Procedure Name Priority Date/Time Associated Diagnosis Comments STRESS TEST WITH MYOCARDIAL PERFUSION Routine 01/01/2024 9:09 AM EDT documented in this encounter Results * Stress test with myocardial perfusion (01/01/2024 9:09 AM EDT) 01/01/2024 9:09 AM EDT Narrative [facility] IMAG[facility] - 01/04/2024 4:19 PM EDT [address] [address] Nuclear Medicine Report Signed Patient: Sade Fraga MR#: [id number] 4 : 1970 Acct:[id number] Age/Sex: 53 / F ADM Date: 01/01/24 Loc: HO.CARD Attending Dr: Abdelrahman Ricketts MD Ordering Physician: Abdelrahman Ricketts MD Date of Service: 01/01/24 Procedure(s): NM cardiolite stress test Accession Number(s): [id number] cc: Jackie Abdi MD; Abdelrahman Ricketts MD [...] 01/04/24 1616 DD/ 0909 TD/TT: 01/04/24 1200 Surgical Scrub Technician: Procedure Note Donotuseinterpreter, Image - 01/04/[address] [address] Nuclear Medicine Report Signed Patient: Sade Fraga#: [id number] 4 : 1970Acct:[id number] Age/Sex: 53 / FADM Date: 01/01/24 Loc: .[facility] Attending Dr: Abdelrahman Ricketts MD Ordering Physician: Abdelrahman Ricketts MD Date of Service: 01/01/24 Procedure(s): NM cardiolite stress test Accession Number(s): [id number] cc: Jackie Abdi MD; Abdelrahman Ricketts MD [...] no clear reversible or fixed perfusion abnormality. NM/NV cardiolite stress test IMPRESSION: 1. Myocardial perfusion [...] 01/04/24 1616 DD/ 0909 TD/TT: 01/04/24 1200 Surgical Scrub Technician: us [facility] External Provider CV STRE SS PROCEDURES Final Result [facility] [address] [place] [address] documented in this encounter Visit Diagnoses Not on filedocumented in this encounter Additional Health Concerns Assessment Noted Time PHQ-9 Depression Total Score: 21 023 8:57 AM EDT documented as of this encounter Care Teams Clinical Microbiologist Relationship Specialty Start Date End Date Jackie Abdi MD 230 [place] [address] PCP - General Family Medicine 04/29/13 01/25/25 Mirta Jacobson CNP 505 [place] [address] PCP - General Family Medicine 01/26/25 Craig Boo, EAGLE 505 [place] [address] Registered Nurse Family Medicine 01/30/25 Faisal Lugo 01/30/25 documented as of this encounter
--- OUTSIDE RECORDS SUMMARY | 2025-02-09 18:06 | XMS_ITS ---
Author Organization [employer] Address [address] [place] [address] 7t [place] [address] Care Team Providers Care Care Aide Name Role Phone Mirta Jacobson CNP Primary Care Provider [phone] Craig Boo RN Unavailable [phone] Faisal Lugo Unavailable CH[facility] Complex Status:Outreach In Progress (Enrolling) Start date:01/30/2025 Enrollment reason:ADT Feed Overview ADT- Pt admitted to [facility] on 01/28/25. Case Team Name Relationship Phone Faisal Lugo(Responsible Staff) [phone] Continued Care and Services Coordination
--- OUTSIDE RECORDS SUMMARY | 2025-02-09 18:06 | XMS_ITS | Encounter Summary ---
Author Organization [employer] Address 75 [facility] 7t [place] [address] Care Team Providers Care Surveillance Director Name Role Phone Jackie Abdi MD Primary Care Provider [phone] Mirta Jacobson CNP Primary Care Provider [phone] Craig Boo RN Unavailable [phone] Faisal Lugo Unavailable Reason for Visit * Reason Onset Date Comments Med Refill 12/08/2022 Encounter Details Date Type Department Care Team (Late st Contact Info) Description 12/08/2022 Refill [facility] CHC MED & PEDS 505 [place], [place] [phone] Jackie Abdi MD 505 [place] [address] Social History Tobacco Use Types Packs/Day Years [...] 03/03/2025 1:00 PM EST Office Visit [facility] CHC MED & PEDS 505 [place] [address] Mirta Jacobson CNP 505 [place] [address] documented as of this encounter Visit Diagnoses Not on filedocumented in this encounter Additional Health Concerns Assessment Noted Time PHQ-9 Depression Total Score: 21 023 8:57 AM EDT documented as of this encounter Care Teams Surveillance Director Relationship Specialty Start Date End Date Jackie Abdi MD [address] [place] [address] PCP - General Family Medicine 04/29/13 01/25/25 Mirta Jacobson CNP 505 [place] [address] PCP - General Family Medicine 01/26/25 Craig Boo, EAGLE 505 [place] [address] Registered Nurse Family Medicine 01/30/25 Faisal Lugo 01/30/25 documented as of this encounter
--- OUTSIDE RECORDS SUMMARY | 2025-02-09 18:06 | XMS_ITS | Encounter Summary ---
Author Organization [employer] Address [address] [facility] 7t [place] [address] Care Team Providers Care Print Production Coordinator Name Role Phone Jackie Abdi MD Primary Care Provider [phone] Mirta Jacobson CNP Primary Care Provider [phone] Craig Boo RN Unavailable [phone] Faisal Lugo Unavailable Reason for Visit * Reason Comments Med Refill Encounter Details Date Type Department Care Team (Late st Contact Info) Description 09/16/2023 Refill [facility] CHC MED & PEDS 505 [place], [place] [phone] Jackie Abdi MD [address] [place], [place] [phone] Acute pain of right shoulder Social History [...] Description 03/03/2025 1:00 PM EST Office Visit [facility] CHC MED & PEDS 505 [place] [address] Mirta Jacobson CNP 505 [place] [address] documented as of this encounter Visit Diagnoses Diagnosis Acute pain of right shoulder documented in this encounter Additional Health Concerns Assessment Noted Time PHQ-9 Depression Total Score: 21 023 8:57 AM EDT documented as of this encounter Care Teams Print Production Coordinator Relationship Specialty Start Date End Date Jackie Abdi MD [address] [place] [address] PCP - General Family Medicine 04/29/13 01/25/25 Mirta Jacobson CNP 505 [place] [address] PCP - General Family Medicine 01/26/25 Craig Boo, EAGLE 505 [place] [address] Registered Nurse Family Medicine 01/30/25 Faisal Lugo 01/30/25 documented as of this encounter
--- OUTSIDE RECORDS SUMMARY | 2025-02-09 18:06 | XMS_ITS | Encounter Summary ---
Author Organization [employer] Address 75 [facility] 7t [place] [address] Care Team Providers Care Distributor Sales Consultant Name Role Phone Jackie Abdi MD Primary Care Provider [phone] Mirta Jacobson CNP Primary Care Provider [phone] Craig Boo RN Unavailable [phone] Faisal Lugo Unavailable Encounter Details Date Type Department Care Team ([facility] st Contact Info) Description 08/28/2022 Orders Only [facility] CHC MED & PEDS 505 [place], [place] [phone] Ronnell Sanderson MD 505 [place], [place] [phone] Social History Tobacco Use Types Packs/Day Years [...] Upcoming Encounters Date Type Department Care Team ([facility] st Contact Info) Description 03/03/2025 1:00 PM EST Office Visit [facility] CHC MED & PEDS 505 [place] [address] Mirta Jacobson CNP 505 [place], [place] [phone] documented as of this encounter Visit Diagnoses Not on filedocumented in this encounter Additional Health Concerns Assessment Noted Time PHQ-9 Depression Total Score: 21 023 8:57 AM EDT documented as of this encounter Care Teams Distributor Sales Consultant Relationship Specialty Start Date End Date Jackie Abdi MD [address] [place] [address] PCP - General Family Medicine 04/29/13 01/25/25 Mirta Jacobson CNP 505 [place] [address] PCP - General Family Medicine 01/26/25 Craig Boo, EAGLE 505 [place] [address] Registered Nurse Family Medicine 01/30/25 Faisal Lugo 01/30/25 documented as of this encounter
--- OUTSIDE RECORDS SUMMARY | 2025-02-09 18:06 | XMS_ITS | Encounter Summary ---
Author Organization [employer] Address 75 [facility] 7t [place] [address] Care Team Providers Care Pigment Furnace Tender Name Role Phone Jackie Abdi MD Primary Care Provider [phone] Mirta Jacobson CNP Primary Care Provider [phone] Craig Boo RN Unavailable [phone] Faisal Lugo Unavailable Encounter Details Date Type Department Care Team ([facility] st Contact Info) Description 12/08/2022 Telephone [facility] CHC MED & PEDS 505 [place], [place] [phone] Jackie Abdi MD 505 [place], [place] [phone] Social History Tobacco Use Types Packs/Day Years [...] [facility] MED & PEDS 505 [place] [address] Mirta Jacobson CNP 505 [place] [address] documented as of this encounter Visit Diagnoses Not on filedocumented in this encounter Additional Health Concerns Assessment Noted Time PHQ-9 Depression Total Score: 21 023 8:57 AM EDT documented as of this encounter Care Teams Pigment Furnace Tender Relationship Specialty Start Date End Date Jackie Abdi MD [address] [place] [address] PCP - General Family Medicine 04/29/13 01/25/25 Mirta Jacobson CNP 505 [place] [address] PCP - General Family Medicine 01/26/25 Craig Boo, RN 505 [place] [address] Registered Nurse Family Medicine 01/30/25 Faisal Lugo 01/30/25 documented as of this encounter
--- OUTSIDE RECORDS SUMMARY | 2025-02-09 18:06 | XMS_ITS | Encounter Summary ---
Author Organization [employer] Address [address] [facility] [address] 7t [place] [address] Care Team Providers Care Charger Tester Name Role Phone Jackie Abdi MD Primary Care Provider [phone] Mirta Jacobson CNP Primary Care Provider [phone] Craig Boo RN Unavailable [phone] Faisal Lugo Unavailable Encounter Details Date Type Department Care Team ([facility] st Contact Info) Description 09/26/2024 Orders Only [facility] CHC MED & PEDS 505 [place], [place] [phone] Provider, MD Sagar Social History Tobacco Use [...] [facility] 505 [place] [address] Mirta Jacobson CNP 505 [place] [address] documented as of this encounter Procedures Procedure [...] documented as of this encounter Care Teams Charger Tester Relationship Specialty Start Date End Date Jackie Abdi MD [address] [place] [address] PCP - General Family Medicine 04/29/13 01/25/25 Mirta Jacobson CNP [facility] [place] [address] PCP - General Family Medicine 01/26/25 Craig Boo, EAGLE 505 [place] [address] Registered Nurse Family Medicine 01/30/25 Faisal Lugo 01/30/25 documented as of this encounter
--- OUTSIDE RECORDS SUMMARY | 2025-02-09 18:06 | XMS_ITS | Encounter Summary ---
Author Organization [employer] Address [address] [facility] [address] 7t [place] [address] Care Team Providers Care Senior Gl Accountant Name Role Phone Jackie Abdi MD Primary Care Provider [phone] Mirta Jacobson CNP Primary Care Provider [phone] Craig Boo RN Unavailable [phone] Faisal Lugo Unavailable Reason for Visit * Reason Onset Date Comments Appt materials 01/21/2023 Encounter Details Date Type Department Care Team (Late st Contact Info) Description 01/21/2023 Telephone [facility] CHC ADULT DENTAL [address] [place] [address] Sharon Fernandez DMD Appt materials Social History [...] [facility] 505 [place] [address] Mirta Jacobson CNP 505 [place] [address] documented as of this encounter Visit Diagnoses Not on filedocumented in this encounter Additional Health Concerns Assessment Noted Time PHQ-9 Depression Total Score: 21 023 8:57 AM EDT documented as of this encounter Care Teams Senior Gl Accountant Relationship Specialty Start Date End Date Jackie Abdi MD 230 [place] [address] PCP - General Family Medicine 04/29/13 01/25/25 Mirta Jacobson CNP 505 [place] [address] PCP - General Family Medicine 01/26/25 Craig Boo, EAGLE [address] [place] [address] Registered Nurse Family Medicine 01/30/25 Faisal Lugo 01/30/25 documented as of this encounter
--- OUTSIDE RECORDS SUMMARY | 2025-02-09 18:06 | XMS_ITS | Encounter Summary ---
Author Organization [employer] Address [address] [place] [address] 7t [place] [address] Care Team Providers Care Paper Cone Grader Name Role Phone Jackie Abdi MD Primary Care Provider Mirta Jacobson CNP Primary Care Provider [phone] Craig Boo RN Unavailable [phone] Faisal Lugo Unavailable Reason for Visit * Reason Comments Med Refill Encounter Details Date Type Department Care Team ([facility] st Contact Info) Description 09/18/2022 Refill [facility] MED & PEDS [address] [place], [place] [phone] Ronnell Sanderson MD [address] [place], [place] [phone] Mid-back pain, acute Social History Tobacco Use [...] 1:00 PM EST Office Visit [facility] MED & PEDS [address] [place] [address] Mirta Jacobson CNP [address] [place] [address] documented as of this encounter Visit Diagnoses Diagnosis Mid-back pain, acute documented in this encounter Additional Health Concerns Assessment Noted Time PHQ-9 Depression Total Score: 21 023 8:57 AM EDT documented as of this encounter Care Teams Paper Cone Grader Relationship Specialty Start Date End Date Jackie Abdi MD [address] [place] [address] PCP - General Family Medicine 04/29/13 01/25/25 Mirta Jacobson CNP [address] [place] [address] PCP - General Family Medicine 01/26/25 Craig Boo, RN [address] [place] [address] Registered Nurse Family Medicine 01/30/25 Faisal Lugo 01/30/25 documented as of this encounter
--- OUTSIDE RECORDS SUMMARY | 2025-02-09 18:06 | XMS_ITS | Encounter Summary ---
Author Organization [employer] Address [address] [facility] 7t [place] [address] Care Team Providers Care Senior Health Consultant Name Role Phone Jackie Abdi MD Primary Care Provider [phone] Mirta Jacobson CNP Primary Care Provider [phone] Craig Boo RN Unavailable Faisal Lugo Unavailable Reason for Visit * Reason Onset Date Comments Results 08/04/2023 Encounter Details Date Type Department Care Team ([facility] st Contact Info) Description 08/04/2023 Telephone [facility] MED & PEDS [address] [place] [address] Jackie Abdi MD [address] [place], [place] [phone] Results Social History Tobacco Use Types Packs/Day [...] labs. Pt stated these were done by [facility] and that they diagnosed pt with [...] and culture Date when done: 08/02 Facility: [facility] Please contact pt at [phone] documented in this encounter Plan of Treatment Upcoming Encounters Date Type Department Care Team (Late st Contact Info) Description 03/03/2025 1:00 PM EST Office Visit [facility] MED & PEDS [address] [place] [address] Mirta Jacobson CNP [address] [place] [address] documented as of this encounter Visit Diagnoses Not on filedocumented in this encounter Additional Health Concerns Assessment Noted Time PHQ-9 Depression Total Score: 21 023 8:57 AM EDT documented as of this encounter Care Teams Senior Health Consultant Relationship Specialty Start Date End Date Jackie Abdi MD [address] [place] [address] PCP - General Family Medicine 04/29/13 01/25/25 Mirta Jacobson CNP [address] [place] [address] PCP - General Family Medicine 01/26/25 Craig Boo, [place] [address] [place] [address] Registered Nurse Family Medicine 01/30/25 Faisal Lugo 01/30/25 documented as of this encounter
--- OUTSIDE RECORDS SUMMARY | 2025-02-09 18:06 | XMS_ITS | Encounter Summary ---
Author Organization [employer] Address [address] [facility] 7t [place] [address] Care Team Providers Care Delicatessen Slicer Name Role Phone Jackie Abdi MD Primary Care Provider [phone] Mirta Jacobson CNP Primary Care Provider [phone] Craig Boo RN Unavailable Faisal Lugo Unavailable Encounter Details Date Type Department Care Team (Late st Contact Info) Description 09/20/2024 Orders Only [facility] [address] [place] [address] Provider, MD Sagar Social History Tobacco Use [...] 1:00 PM EST Office Visit [facility] MED & PEDS [address] [place] [address] [place], [facility] [address] [place] [address] documented as of this encounter Procedures Procedure [...] documented as of this encounter Care Teams Delicatessen Slicer Relationship Specialty Start Date End Date Jackie Abdi MD [address] [place] [address] PCP - General Family Medicine 04/29/13 01/25/25 Mirta Jacobson CNP [address] [place] [address] PCP - General Family Medicine 01/26/25 Craig Boo, EAGLE [address] [place] [address] Registered Nurse Family Medicine 01/30/25 Faisal Lugo 01/30/25 documented as of this encounter
--- OUTSIDE RECORDS SUMMARY | 2025-02-09 18:07 | XMS_ITS | Encounter Summary ---
Author Organization [employer] Address [address] [facility] [address] 7[address] [place] [address] Care Team Providers Care Edgerman Name Role Phone Jackie Abdi MD Primary Care Provider [phone] Mirta Jacobson CNP Primary Care Provider [phone] Craig Boo RN Unavailable [phone] Faisal Lugo Unavailable Reason for Visit * Reason Onset Date Comments Med Refill 11/13/2023 Encounter Details Date Type Department Care Team (Late st Contact Info) Description 11/13/2023 Refill [facility] MED[facility] [address] [place] [address] Jackie Abdi MD [address] [place], [place] [phone] Social History Tobacco Use Types Packs/Day Years [...] Upcoming Encounters Date Type Department Care Team ([facility] st Contact Info) Description 03/03/2025 1:00 PM EST Office Visit [facility] CH[facility] MED & PEDS [address] [place] [address] Mirta Jacobson CNP [address] [place] [address] documented as of this encounter Visit Diagnoses Not on filedocumented in this encounter Additional Health Concerns Assessment Noted Time PHQ-9 Depression Total Score: 21 023 8:57 AM EDT documented as of this encounter Care Teams Edgerman Relationship Specialty Start Date End Date Jackie Abdi MD [address] [place] [address] PCP - General Family Medicine 04/29/13 01/25/25 Mirta Jacobson CNP [address] [place] [address] PCP - General Family Medicine 01/26/25 Craig Boo, EAGLE [address] [place] [address] Registered Nurse Family Medicine 01/30/25 Faisal Lugo 01/30/25 documented as of this encounter
--- OUTSIDE RECORDS SUMMARY | 2025-02-09 18:07 | XMS_ITS | Encounter Summary ---
Author Organization [employer] Address [address] [place] [address] Care Team Providers Care Palletizer Name Role Phone Jackie Abdi MD Primary Care Provider [phone] Mirta Jacobson CNP Primary Care Provider [phone] Craig Boo RN Unavailable [phone] Faisal Lugo Unavailable Reason for Visit * Reason Comments Med Refill Encounter Details Date Type Department Care Team (Late st Contact Info) Description 11/13/2023 Refill [facility] MED[facility] [address] [place] [address] Jackie Abdi MD [address] [place], [place] [phone] Social History Tobacco Use Types Packs/Day Years [...] 1:00 PM EST Office Visit [facility] MED & PEDS [address] [place] [address] Mirta Jacobson CNP [address] [place] [address] documented as of this encounter Visit Diagnoses Not on filedocumented in this encounter Additional Health Concerns Assessment Noted Time PHQ-9 Depression Total Score: 21 023 8:57 AM EDT documented as of this encounter Care Teams Palletizer Relationship Specialty Start Date End Date Jackie Abdi MD [address] [place] [address] PCP - General Family Medicine 04/29/13 01/25/25 Mirta Jacobson CNP [address] [place] [address] PCP - General Family Medicine 01/26/25 Craig Boo, RN [address] [place] [address] Registered Nurse Family Medicine 01/30/25 Faisal Lugo 01/30/25 documented as of this encounter
--- OUTSIDE RECORDS SUMMARY | 2025-02-09 18:07 | XMS_ITS | Clinical Summary ---
Author Organization [employer] Address [address] [facility] [address] [place] [address] Care Team Providers Care Resident Manager Name Role Phone Mirta Jacobson CNP Primary Care Provider [phone] Craig Boo RN Unavailable [phone] Faisal Lugo Unavailable Allergies Active Allergy Reactions Criticality Noted Date Comments Sulfamethoxazole-Trimethoprim Angioedema 2023 Medications Multiple Vitamin (Multi-Vitamin) tablet Take 1 tablet by mouth at bed time. Active cholecalciferol (Vitamin D-3) 1.25 MG (07823 UT) capsule Take 1 capsule by mouth. [...] Department Care Team Description 01/30/2025 Patient Outreach [facility] [address] [place], [place] [phone] Mirta Jacobson CNP Care Coordination ([facility]/JAZZ Lugo, Chart review) 01/30/2025 Patient Outreach [facility] PEDS [address], [place] [phone] Mirta Jacobson CNP Care Coordination ([facility]- chart review) 01/30/2025 Patient Outreach [facility] [address] [place] [phone] Mirta Jacobson CNP 01/20/2025 Results Follow-Up [facility] [address] [place] [address] Yudith Godinez, EAGLE Comprehensive Metabolic Panel, TSH W/Reflex to FT4, CBC auto differential 01/17/2025 2:40 PM EDT Office Visit [facility] [address] [place] [address] Ronnell Sanderson MD Weight loss, unintentional (Primary Dx); Neck pain; Anxiety; Other insomnia 01/17/2025 Travel 01/17/2025 Telephone [facility] [address] [place] [phone] Jackie Abdi MD Nurse Triage 12/28/2024 Refill [facility] [address], [place] [phone] Jackie Abdi MD 12/15/2024 Telephone [facility] [address], [place] [phone] Jackie Abdi MD Results 12/14/2024 Results Follow-Up [address] [address] Stephenie Mcdaniels MD XR CERVICAL SPINE 4V, CBC auto differential, Comprehensive Metabolic Panel, Additional followed-up results: 8 12/13/2024 1:20 PM EDT Office Visit [facility] [address] [place] [phone] Stephenie Mcdaniels MD Unintentional weight loss (Primary Dx); Acute non intractable tension-type headache; Diarrhea, unspecified type; Neck pain 12/13/2024 Travel 12/13/2024 Telephone [facility] [address], [place] [phone] Jackie Abdi MD Nurse Triage from Last 3 Months Immunizations Immunization Administration [...] is your housing situation today? I have keyonancho andrade 06/21/[address] you [...] Team ([facility] st Contact Info) Description 03/03/2025 1:00 PM EST Office Visit [facility] [address] [place] [address] Mirta Jacobson, [facility] [address] [place] [address] Health Maintenance Due Date Last Done Comments CT Colonography 1972 Colonoscopy 1972 FIT 1972 Sigmoidoscopy 1972 Alcohol/Substance Use Screening 1984 Family Planning (PISQ) 1987 DTaP/Tdap/Td Vaccines (2 - Td or Tdap) 01/18/2022 01/19/2012 RSV Patients and Patients Aged 60 years or older (1 - Risk 50-74 years 1-dose series) 2022 Dental X-Ray: Bitewings 05/27/2023 05/26/2022 Dental Oral Exam 09/10/2023 03/10/2023, 05/26/2022 Dental Prophylaxis 09/10/2023 03/10/2023, 06/27/2022 FOBT 02/24/2024 02/23/2023 Depression Monitoring 10/17/2024 04/19/2024, 025 COVID-19 Vaccine ( season) 2024 12/03/2023, 01/16/2023, [...] Smear 04/08/2027 04/08/2022 Lipid Panel 09/29/2029 09/29/2024, 0606/2021, 08/03/2020, Additional history exists Hepatitis A Vaccines Aged [...] Blood Count 5.1 4.8 - 10.8 X10*3/uL [facility] Red Blood Count 4.67 4.20 - 5.50 X10*6/uL [facility] Hemoglobin 12.6 12.0 - 16.0 g/dl [facility] Hematocrit 39.5 37.0 - 47.0 % [facility] Mean Corpuscular Volume 84.6 80.0 - 98.0 fL [facility] Mean Corpuscular Hemoglobin 27.0 27.0 - 33.0 pg [facility] Mean Corpuscular HGB Conc 31.9 31.0 - 35.0 g/dl [facility] Red Cell Distribution Width 16.6(H) 11.0 - 16.0 % [facility] Platelet Count 356 160 - 400 X10*3/uL [facility] Mean Platelet Volume 10.5 9.4 - 12.3 fL [facility] Neutrophils Percent Auto 52.3 45 - 73 % [facility] Imm Gran Pct Auto 0.2 0.0 - 0.4 % [facility] Lymphocytes Percent Auto 33.9 20 - 40 % [facility] Monocytes Percent Auto 10.1 2 - 11 % [facility] Eosinophils Percent Auto 2.5 0 - 4 % [facility] Basophils Percent Auto 1.0 0 - 2 % [facility] NRBC Pct Auto 0.0 0.0 - 0.2 /100WBC [facility] Neutrophils Absolute Auto 2.7 2.0 - 8.3 x10*3/uL [facility] Imm Gran Abs Auto 0.01 0.00 - 0.03 X10*3/uL [facility] Lymphocytes Absolute Auto 1.7 1.2 - 4.9 X10*3/uL [facility] Monocytes Absolute Auto 0.5 0.1 - 1.2 X10*3/uL [facility] Eosinophils Absolute Auto 0.1 0.0 - 0.4 X10*3/uL [facility] Basophils Absolute Auto 0.1 0.0 - 0.2 X10*3/uL [facility] NRBC Abs Auto 0.000 0.0 - 0.012 X10*3/uL [facility] Blood Venous blood specimen / Unknown 01/19/2025 11:48 AM EDT 01/19/2025 2:32 PM EDT us Ronnell Sanderson MD LAB BLOOD ORDERABLES Final Result [facility] [address] [place] [phone] * TSH W/Reflex to FT4 (01/19/2025 11:40 AM EDT) Only the most recent of2 resultswithin the time period is included. TSH reflex Free T4 0.94 0.32 - 4.0 uIU/mL [facility] Blood Venous blood specimen / Unknown 01/19/2025 11:40 AM EDT 01/19/2025 2:25 PM EDT us Ronnell Sanderson MD LAB BLOOD ORDERABLES Final Result [facility] [address] [place] [address] [phone] * (ABNORMAL) Comprehensive Metabolic Panel (01/19/2025 11:40 AM EDT) Only the most recent of2 resultswithin the time period is included. Sodium 146(H) 135 - 145 mmol/L [facility] Potassium 3.6 3.3 - 5.1 mmol/L [facility] Chloride 110(H) 96 - 108 mmol/L [facility] Carbon Dioxide 27 22 - 29 mmol/L [facility] Anion Gap 13 12 - 20 [facility] Urea Nitrogen (BUN) 13 9 - 16 mg/dL [facility] Creatinine, Serum 1.13 0.5 - 1.4 mg/dL [facility] Estimated Glomerular Filt Rate 51 [facility] Comment:Chronic Kidney Disea se: Estimated GFR < 60 mL/min/1.65a7Tiducg Kidney Disease: Estimated GFR < 15 mL/min/1.73m2 Glucose 73 60 - 115 mg/dL [facility] Calcium 9.0 8.4 - 10.2 mg/dL [facility] Bilirubin, Total 0.2 0.0 - 1.0 mg/dL [facility] Aspartate Amino Transferase 19 5 - 31 U/L [facility] Alanine Aminotransferase 20 0 - 31 U/L [facility] Total Protein 7.4 6.5 - 8.0 g/dL [facility] Albumin Level 4.4 3.5 - 5.0 g/dL [facility] Alkaline Phosphatase 84 39 - 117 U/L [facility] Blood Venous blood specimen / Unknown 01/19/2025 11:40 AM EDT 01/19/2025 2:25 PM EDT Ronnell Sanderson MD LAB BLOOD ORDERABLES Final Result [facility] [address] [place] [phone] * XR CERVICAL SPINE 4V (12/13/2024 4:05 PM EDT) Anatomical Region Laterality Modality Abdomen Radiographic Janice ging 12/13/2024 4:05 PM EDT Narrative 12/13/2024 4:31 PM EDT [address] [address] XRay Report Signed Patient: Sade Fraga MR#: [id number] 4 : 1970 Acct:[id number] Age/Sex: 54 / F ADM Date: 12/13/24 Loc: HO.HHCX Attending Dr: Stephenie Chappell MD Ordering Physician: Stephenie Mcdaniels MD Date of Service: 12/13/24 Procedure(s): XR cervical spine 4V Accession Number(s): [id number] cc: tSephenie Mcdaniels MD Reason for Exam: pain EXAMINATION: [...] 12/13/24 1628 DD/ 1605 TD/TT: 12/13/24 1610 Retail Merchandiser: Procedure Note Donotuseinterpreter, Image - 12/13/2024 [place] [address] XRay Report Signed Patient: Gray Fraga#: [id number] 4 : 1970Acct:[id number] Age/Sex: 54 / FADM Date: 12/13/24 Loc: HO.HHCX Attending Dr: Stephenie Chappell MD Ordering Physician: Stephenie Mcdaniels MD Date of Service: 12/13/24 Procedure(s): XR cervical spine 4V Accession Number(s): [id number] cc: Stephenie Mcdaniels MD Reason for Exam: [...] 12/13/24 1628 DD/ 1605 TD/TT: 12/13/24 1610 Retail Merchandiser: us Stephenie Chappell MD IMG XR PROCEDURES Vinny aaliyah Result - Final * Hepatitis Panel, General (12/13/2024 2:34 PM EDT) Hepatitis A IgM Nonreactive Nonreactive [facility] Comment:IgM antibodies to HERNANDEZ V not detected; does not exclude earlyacute or recovered HAV infection. ~Hepatitis B Surface Antibody REACTIVE Nonreactive [facility] Comment:REACTIVE: > 11.99 mI U/mL Hepatitis B Core Antibody Nonreactive Nonreactive [facility] Hepatitis C Antibody Nonreactive Nonreactive [facility] Comment:Antibodies to HCV no t detected; does not exclude early acuteHCV infection. Hepatitis B Surface Ag Negative Negative [facility] Blood Venous blood specimen / Unknown 12/13/2024 2:34 PM EDT 12/13/2024 4:04 PM EDT us Stephenie Chappell MD LAB BLOOD ORDERABLES Final Result [facility] [address] [place] [address] [phone] * HIV-1/2 Antigen and Antibodies, Fourth Generation, with Reflexes (12/13/2024 2:34 PM EDT) HIV AB/AG Nonreactive Nonreactive [facility] Comment:HIV-1 p24 Ag and/or HIV-1/HIV-2 Ab not detected.A test result that is nonreactive does not exclude thepossibility of exposure to or infection with HIV-1 and/orHIV-2. Nonreactive results in this assay for individualswith prior exposure to HIV-1 and/or HIV-2 may be due toantigen and antibody levels that are below the limit ofdetection of this assay.The [employer] HIV Ag/Ab Combo assay result andsupplemental assay results should be interpreted inconjunction with the patient's clinical presentation,history and other laboratory results. If the results areinconsistent with clinical evidence, additional testing issuggested to confirm the result. Blood Venous blood specimen / Unknown 12/13/2024 2:34 PM EDT 12/13/2024 4:04 PM EDT Stephenie Chappell MD LAB BLOOD ORDERABLES Final Result [facility] [address] [place] [phone] * (ABNORMAL) ROSSY Screen,IFA, with Reflex to Titer and Pattern (12/13/2024 2:34 PM EDT) Pathologist [facility] Anti Nuclear Antibody Screen POSITIV E(A) NEGATIVE [facility] Comment:ROSSY IFA is a first l ine screen for detecting thepresence of up to approximately 150 autoantibodies invarious autoimmune diseases. A positive ROSSY IFA resultis suggestive of autoimmune disease and reflexes totiter and pattern. Further laboratory testing may beconsidered if clinically indicated.For additional information, please refer tohttp://education.Splash/faq/QKY308(This link is being provided for informational/educational purposes only.) ROSSY Titer 1:80(A) titer [facility] Comment:A low level ROSSY tite r may be present in pre-clinicalautoimmune diseases and normal individuals. Reference Range <1:40 Negative 1:40-1:80 Low Antibody Level >1:80 Elevated Antibody Level ROSSY Pattern Nuclear , Homogen eous(A) [facility] Comment:Homogeneous pattern is associated with systemic lupuserythematosus (SLE), drug-induced lupus and juvenileidiopathic arthritis.AC-1: HomogeneousInternational Consensus on ROSSY Patterns(https://doi.org/10.1515/uyqi-8498-0170)THIS TEST WAS PERFORMED AT:[employer] [place] [phone] SCHILLING MD ROSSY Titer 2 TNP [facility] ROSSY Pattern 2 TNP [facility] ROSSY TITER 3 TNP [facility] ROSSY PATTERN 3 TNP [facility] Blood Venous blood specimen / Unknown 12/13/2024 2:34 PM EDT 12/13/2024 4:04 PM EDT us Stephenie Chappell MD LAB BLOOD ORDERABLES Final Result [facility] [address] [place] [phone] * Hemoglobin A1c (12/13/2024 2:34 PM EDT) Hemoglobin A1c 5.5 <6.0 % [facility] Comment:Hemoglobin A1C Refer ence Range Adults: 4.8 - 6.0 % Non diabetic: < 6.0 % Goal: < 7.0 %Additional Action Suggested: > 8.0 %Note: Hemoglobin A1c results are invalid for patients with abnormal amounts of HbF. Blood transfusions may impact the HbA1c concentration in the patient sample. Estimated Average Glucose 111 mg/dL [facility] Comment:eAG = Estimated ave rage glucose which is %A1C expressed asaverage glucose, using the formula of the Q3X-UgrxpdgMtwxqbh Glucose study (ADAG), Diabetes Care, Vol.31,#8,Oct. 2007 Blood Venous blood specimen / Unknown 12/13/2024 2:34 PM EDT 12/13/2024 4:13 PM EDT us Stephneie Chappell MD LAB BLOOD ORDERABLES Final Result Performing Organization Address City/[facility]/ZIP Co de Phone Number [facility] [address] [place] [phone] * Influenza B (ID NOW Rapid Molecular) (12/13/2024 1:51 PM EDT) [facility] Influenza B Negative Negative, Indeterminate [facility] Swab 12/13/2024 1:51 PM EDT us Stephenie Chappell MD POINT OF CARE TEST EN TER/EDIT ORDERABLES Final Result Performing Organization Address [facility] Co de Phone Number [facility] [address] [place] [phone] * Influenza A (ID NOW Rapid Molecular) (12/13/2024 1:51 PM EDT) [facility] Influenza A Negative Negative, Indeterminate [facility] Swab 12/13/2024 1:51 PM EDT us Stephenie Chappell MD POINT OF CARE TEST EN TER/EDIT ORDERABLES Final Result Performing Organization Address [facility]/ZIP Co de Phone Number [facility] [address] [place] [phone] * POCT Rapid COVID Ag (12/13/2024 1:51 PM EDT) [facility] Rapid COVID Ag Negative [facility] Swab 12/13/2024 1:51 PM EDT us Stephenie Chappell MD POINT OF CARE TEST EN TER/EDIT ORDERABLES Final Result Performing Organization Address City/[facility]/ZIP Co de Phone Number [facility] [address] [place] [phone] * (ABNORMAL) Lipid Panel, Standard (09/29/2024 9:15 AM EDT) Triglycerides 132 <150 mg/dL [facility] Comment:Desirable Triglyceri de: less than 150 mg/dLBorderline High Triglyceride 150-199 mg/dLHigh Triglyceride: 200-499 mg/dLVery High Triglyceride: greater than or equal to 5OO mg/dL Cholesterol 157 <200 mg/dL [facility] Comment:Desirable Cholestero l: less than 200 mg/dLBorderline High Cholesterol: 200-239 mg/dLHigh Cholesterol: greater than 239 mg/dL LDL Cholesterol Calculated 100(H) <100 mg/dL [facility] Comment:Desirable LDL: less than 100 mg/dLNear Optimal/Above Optimal LDL: 110- 129 mg/dLBorderline High LDL: 130-159 mg/dLHigh LDL: 160-189 mg/dLVery High LDL: greater than or equal to 190 mg/dL HDL Cholesterol 31(L) >40 mg/dL [facility] Comment:Desirable HDL: great er than 40 mg/dL Note: This HDL assay may give artificially low results in patients with liver disease. Blood Venous blood specimen / Unknown 09/29/2024 9:15 AM EDT 09/29/2024 2:53 PM EDT us Jackie Abdi MD LAB BLOOD ORDERABLES Final Resul t [facility] [address] [place] [address] [phone] * BI Mammogram Screening Tomosynthesis Bilateral (06/03/2024 9:45 AM EST) Anatomical Region Laterality Modality Breast Bilateral Mammography 06/03/2024 9:45 AM EST Narrative 06/12/2024 4:59 PM EDT [facility] [address] [place] [address] [place] [address] Mammography Report Signed Patient: Sade Fraga MR#: [id number] 4 : 1970 Acct:[id number] Age/Sex: 54 / F ADM Date: 06/03/24 Loc: HO.MAMMO Attending Dr: Pola Maldonado CNM Ordering Physician: POLA MALDONADO CNM Results: 1 Negative Date of Service: 06/03/24 Follow Up: 1 Year From Orig inal Mammogram Procedure(s): MM tomosynthesis screening BI Accession Number(s): [id number] cc: Jackie Abdi MD; POLA MALDONADO CNM [...] 06/12/24 1656 DD/ 0945 TD/TT: 06/03/24 1010 Retail Merchandiser: Procedure Note Donotuseinterpreter, Image - 06/12/2024 Jerald [facility] [address] [place], [place] [address] Mammography Report Signed Patient: Gray Fraga#: [id number] 4 : 1970Acct:[id number] Age/Sex: 54 / FADM Date: 06/03/24 Loc: KELSIE Attending Dr: Pola Maldonado CNM Ordering Physician: RIZZARDINI,POLA CNMResults: 1 Negative Date of Service: 06/03/24Follow Up: 1 Year From [facility] Mammogram Procedure(s): MM tomosynthesis screening BI Accession Number(s): [id number] cc: Jackie Abdi MD; POLA MALDONADO CNM [...] 06/12/24 1656 DD/ 0945 TD/TT: 06/03/24 1010 Retail Merchandiser: Pola Maldonado CNM [facility] BI PROCEDURES Final R esult * Cologuard?? colon cancer screening (02/23/2023 10:44 AM EST) Cologuard Result Negative Negative 03/01/20 3:14 PM EST [facility] (CLIA #:[id number]) Comment: NEGATIVE TEST RESULT. A negative Cologuard [...] (Javi Frank al, N Engl J Med 2014;370(14):9890-6205) The normal value (reference range) for this assay is negative. COLOGUARD RE-SCREENING RECOMMENDATION: Periodic colorectal cancer screening is an important part of preventive healthcare for asymptomatic individuals at average risk for colorectal cancer. Following a negative Cologuard result, the [place] Cancer Society and U.S. Multi-Society Task Force screening guidelines recommend a Cologuard re-screening interval of 3 years. References: [place] [employer] Guideline for Colorectal Cancer Screening: https://www.cancer.org/cancer/eywwr-mwohxm-rtzdld/fxnnguema-odbzjzwwr-dahtcdi/ac s-rec ommendations.html.; Bean DK, Mitchell GAO, Dank WeberK, Colorectal Cancer Screening: Recommendations for Physicians and Patients from the U.S. Multi-Society Task Force on Colorectal Cancer Screening , Am J Gastroenterology 2017; 112:9069-7925. TEST DESCRIPTION: Composite algorithmic analysis of stool [...] (Javi Frank al, N Engl J Med 2014;370(14):9383-6041.) Cologuard may produce a false negative or false positive result (no colorectal cancer or precancerous polyp present at colonoscopy follow up). A negative Cologuard test result does not guarantee the absence of CRC or advanced adenoma (pre-cancer). The current Cologuard screening interval is every 3 years. ([place] Cancer Society and U.S. Multi-Society Task Force). Cologuard performance data in a 10,000 patient pivotal study using colonoscopy as the reference method can be accessed at the following location: www.[employer]/results. Additional description of the Cologuard test process, warnings and precautions can be found at www.Akeso[employer]uard.[employer]. Stool specimen (specimen) 02/23/2023 10:44 AM EST 02/24/2023 1:44 PM EST Jackie Abdi MD LAB MOLECULAR DIAGNOSTICS ORDERA BLES Final Result [facility] (CLIA #:[id number]) [address] [address], * Thinprep TIS PAP And HPV mRNA E6/E7, CT/NG, TRICH (04/08/2022 4:21 PM EST) Clinical Information: SCREENING, PELVIC PAIN [facility] LMP: NONE GIVEN [facility] Prev. PAP: NONE GIVEN [facility] Prev. BX: NONE GIVEN [facility] SOURCE: None given [facility] Statement Of Adequacy: [facility] Comment: Satisfactory for evaluation. Endocervical/transformation zone component present. Age and/or menstrual status not provided Interpretation/Re sult: Negative for intraepithelial lesion or malignancy. [facility] COMMENT: This Pap test has been evaluated with computer assisted technology. [employer] Anatomy Professor: [facility] Comment: DMM, CT(ASCP) CT screening location: [place] [address] (Always Message) [facility] [place] Comment: EXPLANATORY NOTE: The Pap is a [...] HPV nRNA E6/E7 Not Detected Not Detected [facility] Comment: Methodology: Obiee Lead Developer-Mediated Amplification This assay detects E6/E7 viral messenger RNA (mRNA) from 14 high-risk HPV types (16,18,31,33,35,39,45,51,52,56,58,59,66,68). Cervical sources are required for HPV testing. If a vaginal source from a patient who has had a total hysterectomy with removal of cervix was submitted, please contact the testing laboratory for alternative testing options. For additional information, please refer to http://Sun LifeLight/faq/CEI759a3 (This link if provided for information/ educational purposes only.) Chlamydia trachomatis RNA, TMA, Urogenital NOT DETECTED NOT DETECTED [facility] Neisseria gonorrhoeae RNA, TMA, Urogenital NOT DETECTED NOT DETECTED [facility] Comment [facility] Comment: The analytical performance characteristics of this assay, when used to test SurePath(TM) specimens have been determined by [employer]. The modifications have not been cleared or approved by the FDA. This assay has been validated pursuant to the CLIA regulations and is used for clinical purposes. For additional information, please refer to https://Sun LifeLight/faq/DFP945 (This link is being provided for information/ educational purposes only.) Trichomonas vaginalis, QL, TMA, PAP Vial NOT DETECTED NOT DETECTED [facility] Comment: The analytical performance characteristics of this assay have been determined by [employer]. The modifications have not been cleared or approved by the FDA. This assay has been validated pursuant to the CLIA regulations and is used for clinical purposes. For additional information, please refer to http://[employer] Blo[employer]ide [employer]/ faq/Trichomonastma (This link is being provided for information/ educational purposes only.) 04/08/2022 4:21 PM EST 04/09/2022 11:04 AM EST Narrative [facility] - 04/14/2022 10:42 AM EST FASTING: UNKNOWN Pola Maldonado CNM LAB PATHOLOGY ORDERABLES Final Result [facility] [address], [facility], [place] [address] [facility] [address] [facility], ([address]) [place] [address] from Last 3 Months or Most Recently Relevant to Health Maintenance Insurance [facility] [place] [address] Care Teams Resident Manager Relationship Specialty Start Date End Date Mirta Jacobson CNP [address] [place] [address] PCP - General Family Medicine 01/26/25 Craig Boo, EAGLE [address] [place] [address] Registered Nurse Family Medicine 01/30/25 Faisal Lugo 01/30/25
== END 2025-02-08 14:52 | disposition home or self-care (01) ==
LOC: HO.HOSX 14:51
PROVIDERS: Visit Provider Physician Assistant
DX: M17.11 Unilateral primary osteoarthritis, right knee (principal); Z96.651 Presence of right artificial knee joint; M25.561 Pain in right knee
CPT/HCPCS: 73562; 99212

== ENCOUNTER 2025-03-02 11:02 | Outpatient (AMB) | payer MEDICAID, SELFPAY ==
--- NOTE | 2025-03-02 11:15 | A.OFFVIS_ITS ---
Intake Visit Reasons: OV - Right TKA 05/14/24 - concern of infection Intake Note: Sade is a 54 year old female who presents today for a follow up of her Right Knee, hx of Right TKA 05/14/21. She was last seen with Alonzo on 02/08 who referred her for Synovasure aspiration however patient was still on Antibiotics so her appointment was rescheduled. Patient reports that she took her last dose of Antibiotics on 02/12. Allergies sulfamethoxazole (From Bactrim) Allergy (Intermediate, Verified 02/08/25 10:05) Facial Swelling trimethoprim (From Bactrim) Allergy (Intermediate, Verified 02/08/25 10:05) Facial Swelling HPI HPI OV - Right TKA 05/14/24 - concern of infection: Details: Sade is a 54 year old female who presents today for a follow up of her Right Knee, hx of Right TKA 05/14/21. She was last seen with Alonzo on 02/08 who referred her for Synovasure aspiration however patient was still on Antibiotics so her appointment was rescheduled. Patient reports that she took her last dose of Antibiotics on 02/12. She has not been having any knee pain and denies fevers and chills. She had her knee aspirated about a month ago at an outside emergency room and was told it was infected but the aspiration never grew out any thing. [facility] Medical History VSD (ventricular septal defect) Infection associated with internal right knee prosthesis Cellulitis History of pulmonary embolism History of DVT (deep vein thrombosis) Post-traumatic osteoarthritis of right knee Sleep apnea High cholesterol Asthma HTN (hypertension) Surgical History Status post total knee replacement, right History of bunionectomy of both great toes Hx of gastric bypass History of laparoscopic cholecystectomy History of H/O right knee surgery Family History Father Heart problem Mother Heart problem Social History Household Members: Spouse Housing: House Are you a primary child day care teacher to a significant other at home: No Do you presently have visiting nurse or other home services: No Alcohol intake: never Patient Tobacco Use Status: Never used Tobacco service: No Current occupational status: unemployed and disabled Current occupation: rt handed. Physical Exam Exam Exam: Mild effusion right knee. Stable to varus and valgus stress. 0-120 degrees of motion. No erythema or warmth. Office Procedures Joint Inj/Aspir; Non-Pain Clin Joint Injection/Drain Details: aspirated 10 cc of serosanguineous fluid that was benign in appearance. Prep: site was prepped using aseptic technique Shoulders, Hips, Knees, Knee Large Joint Injection : Right Knee Coding Procedure code (CPT) selection complete Assessment & Plan Assessment & Plan (1) Chronic knee pain after total replacement of knee joint: Code(s): M25.569 - Pain in unspecified knee; G89.29 - Other chronic pain; Z96.659 - Presence of unspecified artificial knee joint Category: Medical Plan: Sade has a benign-appearing knee. I aspirated benign-appearing fluid from her knee and sent this for Synovasure. She has been on antibiotics and there was question of infection. I had seen her in the past and ruled her out for infection. We will Await the results of the Synovasure. Coding Level of Care Code Est Pt Level 4 (44594) Diagnoses Chronic knee pain after total replacement of knee joint M25.569; G89.29; Z96.659 CPT Codes Shoulders, Hips, Knees, - Knee Large Joint Injection : Right Knee ([id number])
== END 2025-03-02 12:31 | disposition home or self-care (01) ==
LOC: HO.HOS 11:02
PROVIDERS: Visit Provider Orthopaedic Surgery
DX: M25.561 Pain in right knee (principal); G89.29 Other chronic pain; Z96.651 Presence of right artificial knee joint
CPT/HCPCS: 20610; 99214

== ENCOUNTER → 2025-03-02 11:02 | Outpatient (BNVA) | payer MEDICAID, SELFPAY | PROVIDERS: Visit Provider Orthopaedic Surgery | DX: Z47.1 Aftercare following joint replacement surgery (principal); M25.561 Pain in right knee; G89.29 Other chronic pain; Z96.651 Presence of right artificial knee joint | CPT/HCPCS: 20610; 99212 ==

== ENCOUNTER 2025-03-15 13:33 | Outpatient (AMB) | payer MEDICAID, SELFPAY ==
--- NOTE | 2025-03-15 13:39 | A.OFFVIS_ITS ---
Intake Visit Reasons: PVR/UA(SET) Intake Note: Patient is present for PVR/UA Urology Medication:OXYBUTYNIN Antibiotic Allergy:SULFA,BACTRIM Blood Thinner: NONE Last PVR:0ML'S Todays PVR:15ML'S Imagery Analyst Required: No Allergies sulfamethoxazole (From Bactrim) Allergy (Intermediate, Verified 03/15/25 14:12) Facial Swelling trimethoprim (From Bactrim) Allergy (Intermediate, Verified 03/15/25 14:12) Facial Swelling Medication List - Last Reconciled 03/15/25 by LONG JaramilloP- albuterol sulfate 90 mcg/actuation 2 inhalations inhalation Q6H PRN azelastine 1 spray intranasal BID budesonide-formoterol 160-4.5 mcg/actuation (Symbicort) 2 puffs inhalation BID PRN celecoxib 200 mg PO BID doxycycline hyclate 100 mg PO Q12H estradiol 0.01%(0.1mg/gram) pea sized amount to urethra daily x1 month then 3 times a week thereafter 30 days fluoxetine 10 mg PO DAILY folic acid 1 mg PO DAILY hydrocortisone 1% (Anti-Itch (hydrocortisone)) 1 appl topical BID hydroxyzine HCl 25 mg PO DAILY levothyroxine 25 mcg PO DAILY omeprazole 40 mg PO DAILY@0630 oxybutynin chloride 5 mg PO Q8H PRN phentermine 15 mg PO DAILY topiramate 50 mg PO DAILY walker Folding Front wheeled walker zolpidem ER 6.25 mg PO BEDTIME PRN HPI Comments Details: Sade is a very pleasant 55-year-old female patient of Dr. Abdi. She has a past medical history of ventricular septal defect, cellulitis, pulmonary embolism, DVT, sleep apnea, high cholesterol, asthma, and hypertension. She presents to the office today for follow-up of her recurrent urinary tract infections. In discussion with the patient today she reports having recently been admitted to [facility] for right-sided knee swelling and pain she had been experiencing. She reports a previous history of a right knee replacement in 2021 and is currently on doxycycline for question of a knee infection. When asked she does report intermittent episodes of bladder pressure. She reports having trialed oxybutynin that was prescribed during last office visit and did not find this helpful and therefore discontinued the medication. Previous workup has included a Microgen 04/23 noted E coli, lactobacillus iners, Enterobacter asburiae, Klebsiella pneumoniae, and Enterococcus faecalis. Previous workup has included a retroperitoneal ultrasound 03/22 noting bilateral kidneys with no hydronephrosis or renal masses. Nonobstructing 3 mm right renal calculi in the mid pole. Pre void bladder volume is approximately 350 mL. Postvoid bladder volume is approximately 30 mL. When asked she reports compliance with Estrace cream as prescribed. In office urinalysis results reviewed with the patient today. Negative leukocytes, negative nitrates, negative microscopic hematuria. We did discussed potential causes of intermittent bladder discomfort. She also reports having messaged her director of hospitality through the portal as she is enquiring issues with dyspareunia. We discussed imp ortance of hydration in relation to nephrolithiasis, recurrent urinary tract infections and lower urinary tract symptoms however patient states since having had gastric bypass she finds it difficult to drink fluids. We discussed at length potential causes for lower urinary tract symptoms patient is experiencing as well as recurrent urinary tract infections. She otherwise denies incontinence, visible/gross hematuria, foul smelling urine, changes to urinary stream, flank pain, fever, and or chills. Urine cytology 01/20 Negative for high-grade urothelial carcinoma. She otherwise offers no other issues or concerns at this time. Previous urine cultures are as follows: Urine Culture: 01/19 Klebsiella pneumoniae and citrobacter farmeri, 08/20 Klebsiella aerogenes, 08/20 Klebsiella aerogenes, 12/21 Klebsiella pneumoniae, 06/21 Ecoi. [facility] Medical History VSD (ventricular septal defect) Infection associated with internal right knee prosthesis Cellulitis History of pulmonary embolism History of DVT (deep vein thrombosis) Post-traumatic osteoarthritis of right knee Sleep apnea High cholesterol Asthma HTN (hypertension) Surgical History Status post total knee replacement, right History of bunionectomy of both great toes Hx of gastric bypass History of laparoscopic cholecystectomy History of H/O right knee surgery Family History Father Heart problem Mother Heart problem Social History Household Members: Spouse Housing: House Are you a primary critical care physician to a significant other at home: No Do you presently have visiting nurse or other home services: No Alcohol intake: never Patient Tobacco Use Status: Never used Tobacco service: No Current occupational status: unemployed and disabled Current occupation: rt handed. Review of Systems Const All systems reviewed & are unremarkable except as noted in HPI and below Physical Exam Const General: cooperative, healthy appearing, comfortable, no acute distress, well developed, alert and awake Orientation/consciousness: patient oriented x3 Limitations: no limitations HEENT Head: Yes normal to inspection, Yes normocephalic and Yes atraumatic Ears: hearing grossly normal bilaterally Eyes General: appearance normal, both eyes and all related structures Neck Neck: Yes normal visual inspection and Yes trachea midline Chest Chest palpation & inspection: normal inspection of the chest Resp Effort & Inspection: normal respiratory effort and able to speak in complete sentences Cardio Rate: regular rate GI Inspection: Yes normal to inspection General: Yes no CVA tenderness Back/Spine/Pelvis Back: no CVA tenderness Skin General skin exam: no rashes or lesions noted Neuro General: patient oriented x3 Extrem General: Yes normal to inspection Psych Appearance: grossly normal and well kempt Mental Status: mental status grossly normal Speech and movement: Normal speech and movement present and Clear speech present Affect: normal affect Attitude: cooperative Thought process: Normal thought process present Thought content: Normal thought content present Insight: Fair insight present (Psych) Judgement: Fair judgement present (Psych) Office Procedures Post Void Residual Post Residual Void Post Void Residual (PVR): 15 36468-Owaf Void Residual by ultrasound Results AMB Urinalysis, Automated UA Leukoctes 0 Shira/uL Last Edit by JOSY Regalado on 03/15/25 13:57 UA Nitrite Negative Last Edit by JOSY Regalado on 03/15/25 13:57 UA Urobilinogen 0.2 mg/dL Last Edit by JOSY Regalado on 03/15/25 13:5 7 UA Protein 15 mg/dL Last Edit by JOSY Regalado on 03/15/25 13:57 UA pH 6.0 Last Edit by JOSY Regalado on 03/15/25 13:57 UA Blood 0 Kai/uL Last Edit by JOSY Regalado on 03/15/25 13:57 UA Specific Quincy 1.025 Last Edit by JOSY Regalado on 03/15/25 13: 57 UA Ketone Negative Last Edit by JOSY Regalado on 03/15/25 13:57 UA Bilirubin 1 mg/dL Last Edit by JOSY Regalado on 03/15/25 13:57 UA Glucose 0 mg/dL Last Edit by JOSY Regalado on 03/15/25 13:57 Results Reviewed Results Reviewed: Laboratory Last Values Urine pH (Auto) 6.0 03/15/25 13:56 Specific Quincy (Auto) 1.025 03/15/25 13:56 Urine Protein (Auto) 15 mg/dL 03/15/25 13:56 Glucose (UA)(Auto) 0 mg/dL 03/15/25 13:56 Urine Ketones (Auto) Negative 03/15/25 13:56 Urine Blood (Auto) 0 Kai/uL 03/15/25 13:56 Urine Nitrite (Auto) Negative 03/15/25 13:56 Urine Bilirubin (Auto) 1 mg/dL 03/15/25 13:56 Urine Urobilinogen (Auto) 0.2 mg/dL 03/15/25 13:56 Leukocyte Esterase (Auto) 0 Shira/uL 03/15/25 13:56 Assessment & Plan Assessment & Plan (1) Lower urinary tract symptoms: Code(s): R39.9 - Unspecified symptoms and signs involving the genitourinary system Category: Medical (2) Recurrent UTI: Code(s): N39.0 - Urinary tract infection, site not specified Category: Medical Plan In office urinalysis results reviewed with the patient today; as noted above. PVR 15 mL We did discussed potential causes of lower urinary tract symptoms as well as further treatment options and risks and benefits of these treatment options. We discussed in office cystoscopy for further assessment evaluation. All questions were answered. We did discussed the importance of adequate hydration relation to lower urinary tract symptoms as well as overall health and well-being. Will continue with surveillance monitoring at this time. Follow-up in 3-6 months with PVR; or sooner with any issues, concerns, and or questions. Orders: Orders AMB Urinalysis Automated Today Z13.9 - Encounter for screening, unspecified Patient Instructions: The patient had an opportunity to ask questions regarding the treatment plan. All questions were answered. Physical exam, labs, and imaging were discussed and reviewed in detail. As well as risks, benefits, and discussion of treatment choices. No major barriers to understanding were identified. The patient expressed understanding and agreement with the above treatment plan. The patient was made aware they should contact our office by phone for worsening of their current condition, the appearance of new symptoms, or with any questions or concerns. Compliance is encouraged with any medications and follow up testing that is ordered. It is a privilege to be allowed the opportunity to participate in? your urological care.? Again, if you have any questions or concerns If you have any questions or concerns please do not hesitate to contact me. The office is [phone]. This note is constructed using voice recognition software. While every effort trejo s been made to ensure accuracy apple press operator errors may have been included. Yours sincerely, ANANYA Jaramillo Coding Level of Care Code Est Pt Level 3 (52193) Add On Problem Visit Only Diagnoses Lower urinary tract symptoms R39.9 Recurrent UTI N39.0 CPT Codes Post Residual Void - PVR CPT Code: 54968-Cqdo Void Residual by ultrasound ([id number])
--- OUTSIDE RECORDS SUMMARY | 2025-03-15 18:06 | XMS_ITS | Encounter Summary ---
Author Organization [employer] Address [address] [facility] 7t [place] [address] Care Team Providers Care Development Vice President Name Role Phone Jackie Abdi MD Primary Care Provider [phone] Mirta Jacobson CNP Primary Care Provider [phone] Craig Boo RN Unavailable [phone] Faisal Lugo Unavailable Encounter Details Date Type Department Care Team (Late Contact Info) Description 10/01/2022 Abstract [facility] MEDICINE [address] [place] [address] Jackie Abdi MD [address] [place], [place] [phone] Social History Tobacco Use Types Packs/Day Years [...] Department Care Team (Late Contact Info) Description 03/16/2025 3:15 PM EST Office Visit [facility]INE [address] [place], [place] [phone] Rose Marie Shah, CNM [address] [place] [address] 06/27/2025 2:00 PM EDT Office Visit [facility] OPTOMETRY [address] [place] [address] David, An, OD [address] [place] [address] documented as of this encounter Visit Diagnoses Not on filedocumented in this encounter Additional Health Concerns Assessment Noted Time PHQ-9 Depression Total Score: 21 023 8:57 AM EDT documented as of this encounter Care Teams Development Vice President Relationship Specialty Start Date End Date Jackie Abdi MD [address] [place] [address] PCP - General Family Medicine 04/29/13 01/25/25 Mirta Jacobson CNP [address] [place] [address] PCP - General Family Medicine 01/26/25 Craig Boo, EAGLE [address] [place] [address] Registered Nurse Family Medicine 01/30/25 02/15/25 Faisal Lugo 01/30/25 02/15/25 documented as of this encounter
--- OUTSIDE RECORDS SUMMARY | 2025-03-15 18:06 | XMS_ITS | Encounter Summary ---
Author Organization [employer] Address [address] [facility] [address] [place] [address] Care Team Providers Care Ski Base Trimmer Name Role Phone Mirta Jacobson CNP Primary Care Provider [phone] Reason for Visit * Reason Onset Date Comments chart prep 03/15/2025 Encounter Details Date Type Department Care Team ([facility] st Contact Info) Description 03/15/2025 Telephone [facility] MED[facility]INE [address] [place], [place] [phone] Rose Marie Shah CNM [address] [place] [address] chart prep Social History Tobacco Use Types Packs/Day Years [...] encounter Miscellaneous Notes * Telephone Encounter - Germaine Lugo [place] - 03/15/2025 4:20 PM EST ..Chart Prep Labs: not applicable Images: not applicable Vaccines due: Updated Referrals: Not Applicable Screenings: Not Applicable Overdue care gaps: PHQ9, GAD7, and Oral Health documented in this encounter Plan of Treatment Upcoming Encounters Date Type Department Care Team (Late st Contact Info) Description 03/16/2025 3:15 PM EST Office Visit [facility] MED[facility]INE [address] [place] [address] Rose Marie Shah CNM [address] [place] [address] 06/27/2025 2:00 PM EDT Office Visit [facility] OPTOMETRY [address] [place] [address] An Hernandez, OD [address] [place] [address] documented as of this encounter Visit Diagnoses Not on filedocumented in this encounter Additional Health Concerns Assessment Noted Time PHQ-9 Depression Total Score: 14 025 11:23 AM EST documented as of this encounter Care Teams Ski Base Trimmer Relationship Specialty Start Date End Date Mirta Jacobson CNP [address] [place] [address] PCP - General Family Medicine 01/26/25 documented as of this encounter
--- OUTSIDE RECORDS SUMMARY | 2025-03-15 18:06 | XMS_ITS | Encounter Summary ---
Author Organization [employer] Address [address] [facility] 7t [place] [address] Care Team Providers Care Bait Maker Name Role Phone Jackie Abdi MD Primary Care Provider [phone] Mirta Jacobson CNP Primary Care Provider [phone] Craig Boo RN Unavailable [phone] Faisal Lugo Unavailable Reason for Visit * Reason Comments Med Refill Encounter Details Date Type Department Care Team (Late st Contact Info) Description 09/16/2023 Refill [facility] MED & PEDS [address] [place], [place] [phone] Jackie Abdi MD [address] [place], [place] [phone] Acute pain of right shoulder Social History [...] Description 03/16/2025 3:15 PM EST Office Visit [facility] MEDICINE [address] [place] [address] Rose Marie Shah, MACKENZIEM [address] [place] [address] 06/27/2025 2:00 PM EDT Office Visit [facility] OPTOMETRY [address] [place] [address] David, An, OD [address] [place] [address] documented as of this encounter Visit Diagnoses Diagnosis Acute pain of right shoulder documented in this encounter Additional Health Concerns Assessment Noted Time PHQ-9 Depression Total Score: 21 023 8:57 AM EDT documented as of this encounter Care Teams Bait Maker Relationship Specialty Start Date End Date Jackie Abdi MD [address] [place] [address] PCP - General Family Medicine 04/29/13 01/25/25 Mirta Jacobson CNP [address] [place] [address] PCP - General Family Medicine 01/26/25 Craig Boo, EAGLE [address] [place] [address] Registered Nurse Family Medicine 01/30/25 02/15/25 Faisal Lugo 01/30/25 02/15/25 documented as of this encounter
--- OUTSIDE RECORDS SUMMARY | 2025-03-15 18:06 | XMS_ITS | Encounter Summary ---
Author Organization [employer] Address [address] [facility] 7t [place] [address] Care Team Providers Care Repairer Engine Production Name Role Phone Jackie Abdi MD Primary Care Provider [phone] Mirta Jacobson CNP Primary Care Provider [phone] Craig Boo RN Unavailable [phone] Faisal Lugo Unavailable Reason for Visit * Reason Onset Date Comments Med Refill 12/05/2022 Encounter Details Date Type Department Care Team (Late Contact Info) Description 12/05/2022 Refill [facility] MED [facility] PEDS [address] [place], [place] [phone] Abby Duran MD Social History Tobacco Use [...] Upcoming Encounters Date Type Department Care Team ([facility] Contact Info) Description 03/16/2025 3:15 PM EST Office Visit [facility] MEDICINE [address] [place] [address] Rose Marie Shah, LOLIS [address] [place] [address] 06/27/2025 2:00 PM EDT Office Visit [facility] OPTOMETRY [address] [place] [address] DavidAn, OD [address] [place] [address] documented as of this encounter Visit Diagnoses Not on filedocumented in this encounter Additional Health Concerns Assessment Noted Time PHQ-9 Depression Total Score: 023 8:57 AM EDT documented as of this encounter Care Teams Repairer Engine Production Relationship Specialty Start Date End Date Jackie Abdi MD [address] [place] [address] PCP - General Family Medicine 04/29/13 01/25/25 Mirta Jacobson CNP [address] [place] [address] PCP - General Family Medicine 01/26/25 Craig Boo, EAGLE [address] [place], [place] [phone] Registered Nurse Family Medicine 01/30/25 02/15/25 Faisal Lugo 01/30/25 02/15/25 documented as of this encounter
--- OUTSIDE RECORDS SUMMARY | 2025-03-15 18:06 | XMS_ITS | Encounter Summary ---
Author Organization [employer] Address [address] [facility] [address]t [place] [address] Care Team Providers Care Pepper Picker Name Role Phone Jackie Abdi MD Primary Care Provider [phone] Mirta Jacobson CNP Primary Care Provider [phone] Craig Boo RN Unavailable [phone] Faisal Lugo Unavailable Reason for Visit * Reason Onset Date Comments Med Refill 02/26/2023 Encounter Details Date Type Department Care Team ([facility] st Contact Info) Description 02/26/2023 Refill [facility] MED & PEDS [address] [place], [place] [phone] Jackie Abdi MD [address] [place], [place] [phone] Social History Tobacco Use Types Packs/Day Years [...] Description 03/16/2025 3:15 PM EST Office Visit [facility] MED[facility]INE [address] [place] [address] Rose Marie Shah, LOLIS [address] [place] [address] 06/27/2025 2:00 PM EDT Office Visit [facility] OPTOMETRY [address] [place] [address] David, An, OD [address] [place] [address] documented as of this encounter Visit Diagnoses Not on filedocumented in this encounter Additional Health Concerns Assessment Noted Time PHQ-9 Depression Total Score: 21 023 8:57 AM EDT documented as of this encounter Care Teams Pepper Picker Relationship Specialty Start Date End Date Jackie Abdi MD [address] [place] [address] PCP - General Family Medicine 04/29/13 01/25/25 Mirta Jacobson CNP [address] [place] [address] PCP - General Family Medicine 01/26/25 Craig Boo, EAGLE [address] [place] [address] [place] [address] Registered Nurse Family Medicine 01/30/25 02/15/25 Faisal Lugo 01/30/25 02/15/25 documented as of this encounter
--- OUTSIDE RECORDS SUMMARY | 2025-03-15 18:06 | XMS_ITS | Clinical Summary ---
Author Organization 175 [facility] Address [address] [place] [address] Phone Care Team Providers Care Oil Burner Journeyman Name Role Phone Jackie Abdi MD Primary Care Provider [phone] Allergies Active Allergy Reactions Criticality Noted Date Comments Sulfamethoxazole-Trimethoprim Angioedema High 2023 Medications omeprazole (PriLOSEC) [address] capsule TAKE 1 CAPSULE BY MOUTH TWICE DAILY 1 Active sucralfate (CARAFATE) 100 mg/mL suspension Take 10 mL by mouth 4 times daily. Take at least one dose at bedtime 4 Active levothyroxine (SYNTHROID, LEVOTHROID) 25 mcg tablet Take 1 tablet (25 mcg total) by mouth 1 (one) time each day. 5 07/01/19 26 Active FLUoxetine (PROzac) 10 mg capsule Take 1 capsule (10 mg total) by mouth 1 (one) time each day. 5 Active hydrOXYzine pamoate (VISTARIL) 50 mg capsule Take 1 capsule (50 mg total) by mouth 2 (two) times a day. 5 Active magnesium oxide (MAG-OX) 400 mg magnesium tablet Take 1 tablet (400 mg total) by mouth 1 (one) time each day. 30 tablet 2 5 Active riboflavin (VITAMIN B2) 400 mg tablet Take 1 tablet (400 mg total) by mouth 1 (one) time each day. 30 tablet 2 5 Active topiramate (TOPAMAX) 50 mg tabletIndicatio ns:Overweight Take 1 tablet (50 mg total) by mouth at bedtime. 30 tablet 3 5 Active phentermine 15 mg capsuleIndicati ons:Overweight Take 1 capsule (15 mg total) by mouth 1 (one) time each day before breakfast. Max Daily Amount: 15 mg 30 each 5 06/09/19 26 Active cholecalciferol (VITAMIN D-3) 1,250 mcg (50,000 unit) capsule Take 1 Capsule by mouth once a week. 4 03/01/20 25 Discontinue d(Therapy completed) MAGNESIUM CHLORIDE ORAL Take by mouth. 03/01/20 25 Discontinue d(Therapy completed) multivitamin (MULTI-DAY ORAL) Take by mouth. 03/01/20 25 Discontinue d(Therapy completed) SIMVASTATIN ORAL Take by mouth. 03/01/20 25 Discontinue d(Therapy completed) simethicone 250 mg capsule Take 1 capsule by mouth 4 (four) times a day if needed (gassiness). 60 capsule 5 5 03/01/20 25 Discontinue d(Therapy completed) topiramate (TOPAMAX) 50 mg tabletIndicatio ns:Overweight Take 1 tablet (50 mg total) by mouth at bedtime. 30 tablet 3 5 03/05/20 25 Discontinue d(Reorder) phentermine 15 mg capsuleIndicati ons:Overweight Take 1 capsule (15 mg total) by mouth 1 (one) time each day before breakfast. Max Daily Amount: 15 mg 30 each 5 03/05/20 25 Discontinue d(Reorder) zolpidem CR (Ambien CR) 12.5 mg CR tabletIndicatio ns:Sleep deficient Take 1 tablet (12.5 mg total) by mouth at bedtime as needed for sleep. Do not crush, chew, or split. Max Daily Amount: 12.5 mg 30 tablet 5 03/09/20 25 Active Problems Problem Noted Date Diagnosed Date Bile-induced gastritis 03/08/2024 Nausea and vomiting 03/08/2024 Overweight (BMI 25.0-29.9) 04/22/2021 Eating disorder 10/11/2020 Hypercholesteremia 10/11/2020 Obstructive sleep apnea 10/11/2020 Overview (03/08/2024): CPAP Gastroesophageal reflux dise ase with esophagitis without hemorrhage 05/03/2020 Encounters Date Type Department Care Team Description 03/02/2025 10:25 AM EST Lab Draw Station - [address] [place] [address] Migraine with aura and without status migrainosus, not intractable 03/01/2025 9:00 AM EST Telemedicine [facility] [place] [address] [place] [address] Jeanie Kapadia MD Migraine with aura and without status migrainosus, not intractable (Primary Dx); Obstructive sleep apnea; Overweight (BMI 25.0-29.9) 02/07/2025 1:45 PM EST Office Visit Bariatric Surgery - [place] [address] [facility] [address] [place] [address] Aleksandar Heaton MD Sleep deficient [...] Date Site/Laterality Comments OTHER SURGICAL HISTORY PROCEDURE: IA ARTHRS AID TIBIAL FRACTURE PROXIMAL UNICONDYLAR CHOLECYSTECTOMY PROCEDURE: IA LAPAROSCOPY SURG CHOLECYSTECTOMY BUNIONECTOMY PROCEDURE: BUNION SURGERY, SIMPLE REMOVAL SECTION PROCEDURE: IA DELIVERY ONLY Medical History Medical History Date [...] Orientation Straight 07/15/2024 2: 27 PM EDT Last Filed Vital Signs Vital Sign [...] AM EDT Office Visit Bariatric Surgery - [address] [place] [address] Aleksandar Heaton MD [address] [place] [address] Health Maintenance Due Date Last Done Comments Breast Cancer Screening 1972 Drug Screen 1972 Non-Opioid Controlled Substance Agreement 1972 Cervical Cancer Screening: Pap Smear 1993 DTaP,Tdap,and Td Vaccines (2 - Td or Tdap) 01/18/2022 01/19/2012 Social Influencers of Health Screening 03/02/2022 RSV Immunization Adult Patients (1 - Risk 50-74 years 1-dose series) 2022 COVID-19 Vaccine ( season) 2024 12/03/2023, 01/16/2023, [...] 03/18/2024, 12/03/2023 HIV Screening Completed 12/13/2024, 12/12/2020 Depression Screening Completed 03/01/2025 HIB Vaccines Aged Out No longer eligi [...] Diagnosis Comments CBC WITH AUTO DIFFERENTIAL Routine 03/02/2025 10:24 AM EST Migraine with aura and without status migrainosus, not intractable VITAMIN B12 Routine 03/02/2025 10:24 AM EST Migraine with aura and without status migrainosus, not intractable VITAMIN D 25 HYDROXY Routine 03/02/2025 10:24 AM EST Migraine with aura and without status migrainosus, not intractable CREATININE, SERUM Routine 03/02/2025 10: 24 AM EST Migraine with aura and without status migrainosus, not intractable BUN Routine 03/02/2025 10:24 AM EST Migraine with aura and without status migrainosus, not intractable CBC AND DIFFERENTIAL Routine 03/02/2025 10:24 AM EST Migraine with aura and without status migrainosus, not intractable BORRELIA BURGDORFERI ANTIBODY Routine 03/02/2025 10:24 AM EST Migraine with aura and without status migrainosus, not intractable FOLATE Routine 03/02/2025 10:24 AM EST Migraine with aura and without status migrainosus, not intractable SEDIMENTATION RATE Routine 03/02/2025 10 :24 AM EST Migraine with aura and without status migrainosus, not intractable LIPID PANEL WITH REFLEX TO DIRECT LDL Routine 06/17/2024 10:12 AM EDT Class 1 obesity due to excess calories with body mass index (BMI) of 30.0 to 30.9 in adult, unspecified whether serious comorbidity present HM HEPATITIS C SCREENING Routine 09/22/2023 from Last 3 Months or Most Recently Relevant to Health Maintenance Results * (ABNORMAL) CBC auto differential (03/02/2025 10:24 AM EST) [facility] WBC 5.6 4.8 - 10.8 K/mcL LAB HEMETOLOGY METHOD 03/02/2025 2:19 PM [facility] RBC 3.90 3.80 - 4.80 M/mcL LAB HEMETOLOGY METHOD 03/02/2025 2:19 PM [facility] Hemoglobin 10.6(L) 11.5 - 16.0 g/dL LAB HEMETOLOGY METHOD 03/02/2025 2:19 PM [facility] LAB Hematocrit 33.2(L) 35.0 - 47.0 % LAB HEMETOLOGY METHOD 03/02/2025 2:19 PM [facility] MCV 84.5 79.0 - 98.0 FL LAB HEMETOLOGY METHOD 03/02/2025 2:19 PM [facility] LAB MCH 27.0 27.0 - 32.0 pcg LAB HEMETOLOGY METHOD 03/02/2025 2:19 PM [facility] LAB MCHC 31.9(L) 32.0 - 37.0 g/dL LAB HEMETOLOGY METHOD 03/02/2025 2:19 PM [facility] RDW 15.4(H) 11.0 - 15.0 % LAB HEMETOLOGY METHOD 03/02/2025 2:19 PM [facility] Platelets 317 130 - 400 K/mcL LAB HEMETOLOGY METHOD 03/02/2025 2:19 PM [facility] MPV 10.6 7.0 - 11.0 FL LAB HEMETOLOGY METHOD 03/02/2025 2:19 PM [facility] NRBC 0.0 <1.0 % LAB HEMETOLOGY METHOD 03/02/2025 2:19 PM [facility] NRBC Absolute 0.00 <0.10 K/mcL LAB HEMETOLOGY METHOD 03/02/2025 2:19 PM [facility] Neutrophils Relative 57.5 % LAB HEMETOLOGY METHOD 03/02/2025 2:19 PM [facility] Lymphocytes Relative 23.9 % LAB HEMETOLOGY METHOD 03/02/2025 2:19 PM [facility] Monocytes Relative 11.8 % LAB HEMETOLOGY METHOD 03/02/2025 2:19 PM [facility] Eosinophils Relative 5.7 % LAB HEMETOLOGY METHOD 03/02/2025 2:19 PM [facility] Basophils Relative 0.7 % LAB HEMETOLOGY METHOD 03/02/2025 2:19 PM [facility] Immature Granulocytes Relative 0.4 % LAB HEMETOLOGY METHOD 03/02/2025 2:19 PM [facility] Neutrophils Absolute 3.22 1.50 - 7.00 K/mcL LAB HEMETOLOGY METHOD 03/02/2025 2:19 PM [facility] Lymphocytes Absolute 1.34 1.00 - 5.00 K/mcL LAB HEMETOLOGY METHOD 03/02/2025 2:19 PM [facility] Monocytes Absolute 0.66 0.20 - 1.00 K/mcL LAB HEMETOLOGY METHOD 03/02/2025 2:19 PM [facility] Eosinophils Absolute 0.32 0.00 - 0.50 K/mcL LAB HEMETOLOGY METHOD 03/02/2025 2:19 PM [facility] Basophils Absolute 0.04 0.00 - 0.20 K/mcL LAB HEMETOLOGY METHOD 03/02/2025 2:19 PM [facility] Immature Granulocytes Absolute 0.02 0.00 - 0.03 K/mcL LAB HEMETOLOGY METHOD 03/02/2025 2:19 PM EST [facility] Blood Venous blood specimen / Unknown Venipuncture / Unknown 03/02/2025 10:24 AM EST 03/02/2025 10:24 AM EST us Jeanie Kapadia MD LAB BLOOD ORDERABLES Fin al Result Performing Organization Address [facility] de Phone Number [facility] [address] [place] [address], * Borrelia burgdorferi antibody (03/02/2025 10:24 AM EST) [facility] Lyme Ab Negative Negative LAB CHEMISTRY METHOD 03/02/2025 3:12 PM EST [facility] Comment: No laboratory evidence of infection with B. burgdorferi (Lyme disease). Negative results may occur in patients recently infected (<=14 days) with B. burgdorferi. If recent infection is suspected, repeat testing on a new sample collected in 7- 14 days is recommended. Blood Venous blood specimen / Unknown Venipuncture / Unknown 03/02/2025 10:24 AM EST 03/02/2025 10:24 AM EST us Jeanie Kapadia MD LAB BLOOD ORDERABLES Fin al Result Performing Organization Address [facility] de Phone Number [facility] [address] [place] [address], * Creatinine (03/02/2025 10:24 AM EST) [facility] Creatinine 0.89 0.50 - 1.10 mg/dL 03/02/2025 3:29 PM EST [facility] eGFR 78 >=60 mL/min/1. 73m2 03/02/2025 3:29 PM EST [facility] Comment:Calculation based on the Chronic Kidney Disease Epidemiology Collaboration (CKD-EPI) equation refit without adjustment for race. Blood Venous blood specimen / Unknown Venipuncture / Unknown 03/02/2025 10:24 AM EST 03/02/2025 10:24 AM EST us Jeanie Kapadia MD LAB BLOOD ORDERABLES Fin al Result Performing Organization Address City/[facility]/ZIP Co de Phone Number [facility] [address] [place] [address], [place] [phone] * (ABNORMAL) Vitamin D 25 hydroxy (03/02/2025 10:24 AM EST) [facility] Vit D, 25-Hydroxy 26.0(L) 30.0 - 80.0 ng/mL 03/02/2025 3:44 PM EST [facility] Blood Venous blood specimen / Unknown Venipuncture / Unknown 03/02/2025 10:24 AM EST 03/02/2025 10:24 AM EST us Jeanie Kapadia MD LAB BLOOD ORDERABLES Fin al Result Performing Organization Address [facility] de Phone Number [facility] [address] [place] [address], [place] [phone] * Sedimentation rate (03/02/2025 10:24 AM EST) [facility] Sed Rate 7 0 - 30 mm/hr LAB HEMETOLOGY METHOD 03/02/2025 2:27 PM EST [facility] Blood Venous blood specimen / Unknown Venipuncture / Unknown 03/02/2025 10:24 AM EST 03/02/2025 10:24 AM EST us Jeanie Kapadia MD LAB BLOOD ORDERABLES Fin al Result Performing Organization Address City/[facility]/ZIP Co de Phone Number [facility] [address] [place] [address], [place] [phone] * BUN (03/02/2025 10:24 AM EST) [facility] BUN 13 5 - 25 mg/dL 03/02/2025 3:27 PM EST [facility] Blood Venous blood specimen / Unknown Venipuncture / Unknown 03/02/2025 10:24 AM EST 03/02/2025 10:24 AM EST us Jeanie Kapadia MD LAB BLOOD ORDERABLES Fin al Result Performing Organization Address [facility] de Phone Number [facility] [address] [place] [address], * Folate (03/02/2025 10:24 AM EST) Folate 5.6 >=5.4 ng/ml 03/02/2025 3:47 PM EST [facility] Blood Venous blood specimen / Unknown Venipuncture / Unknown 03/02/2025 10:24 AM EST 03/02/2025 10:24 AM EST Narrative [facility] - 03/02/2025 3:47 PM EST Over the counter supplements containing high doses of biotin may interfere with this assay. If interference is suspected, patients shoud be retested after refraining from biotin supplements for 72 hours. us Jeanie Kapadia MD LAB BLOOD ORDERABLES Fin al Result Performing Organization Address City/[facility] Co de Phone Number [facility] [address] [place] [address], * Vitamin B12 (03/02/2025 10:24 AM EST) Vitamin B-12 476 211 - 911 pcg/mL 03/02/2025 3:46 PM EST [facility] Blood Venous blood specimen / Unknown Venipuncture / Unknown 03/02/2025 10:24 AM EST 03/02/2025 10:24 AM EST us Jeanie Kapadia MD LAB BLOOD ORDERABLES Fin al Result [facility] [address] [place] [address], [place] [phone] * (ABNORMAL) Lipid panel with reflex to direct LDL (06/17/2024 10:12 AM EDT) [facility] Signature Cholesterol 230(H) 0 - 200 mg/dL LAB CHEMISTRY METHOD 06/17/2024 2:13 PM EDT [facility] Triglycerides 155(H) 0 - 150 mg/dL LAB CHEMISTRY METHOD 06/17/2024 2:13 PM EDT [facility] HDL 48 >=40 mg/dL LAB CHEMISTRY METHOD 06/17/2024 2:13 PM EDT [facility] LDL Calculated 151(H) 0 - 100 mg/dL LAB CHEMISTRY METHOD 06/17/2024 2:13 PM EDT [facility] VLDL Cholesterol Cristofer 31 mg/dL LAB CHEMISTRY METHOD 06/17/2024 2:13 PM EDT [facility] Non HDL Chol. (LDL+VLDL) 182(H) <145 mg/dL LAB CHEMISTRY METHOD 06/17/2024 2:13 PM EDT [facility] Chol/HDL Ratio 4.8(H) 0.0 - 4.4 LAB CHEMISTRY METHOD 06/17/2024 2:13 PM EDT [facility] Blood Venous blood specimen / Unknown Venipuncture / Unknown 06/17/2024 10:12 AM EDT 06/17/2024 11:07 AM EDT Aleksandar Heaton MD LAB BLOOD ORDERABLES Final R esult [facility] [address] [place] [address], [place] [phone] * Hm Hepatitis C Screening (09/22/2023) Hepatitis C Screening abstracted us Historical Provider HEALTH MAINTENANCE Final Result from Last 3 Months or Most Recently Relevant to Health Maintenance [place] Care Teams Oil Burner Journeyman Relationship Specialty Start Date End Date Jackie Abdi MD [address] [place] [id number] PCP - General 10/20/16
--- OUTSIDE RECORDS SUMMARY | 2025-03-15 18:06 | XMS_ITS | Encounter Summary ---
Author Organization [employer] Address [address] [facility] [address] [place] [address] Care Team Providers Care Marketing Sales Supervisor Name Role Phone Jackie Abdi MD Primary Care Provider [phone] Mirta Jacobson CNP Primary Care Provider [phone] Craig Boo RN Unavailable [phone] Faisal Lugo Unavailable Reason for Visit * Reason Onset Date Comments Referral 08/26/2023 Encounter Details Date Type Department Care Team (Late st Contact Info) Description 08/26/2023 Telephone [facility] MEDICINE [address] [place] [address] Jackie Abdi MD [address] [place], [place] [phone] Referral Social History Tobacco Use Types Packs/Day [...] EDT Tc from pt was advised by histopath tech office to request new referral due not being seen until 2020. Address: [address] [place] [address] [address] [facility] [address] Facility Name: [facility]. Type of Specialist: Surface Miner Pt is also requesting referral for a urologist and or bridge ironworker helper due to some recent concerns. (Ptwas triaged) If any questions please contact pt at [phone]. documented in this encounter Plan of Treatment Upcoming Encounters Date Type Department Care Team (Late st Contact Info) Description 03/16/2025 3:15 PM EST Office Visit [facility] MEDICINE [address] [place] [address] Rose Marie Shah, LOLIS [address] [place] [address] 06/27/2025 2:00 PM EDT Office Visit [facility] OPTOMETRY [address] [place] [address] An Hernandez, OD [address] [place] [address] documented as of this encounter Visit Diagnoses Not on filedocumented in this encounter Additional Health Concerns Assessment Noted Time PHQ-9 Depression Total Score: 21 023 8:57 AM EDT documented as of this encounter Care Teams Marketing Sales Supervisor Relationship Specialty Start Date End Date Jackie Abdi MD [address] [place] [address] PCP - General Family Medicine 04/29/13 01/25/25 Mirta Jacobson CNP [address] [place] [address] PCP - General Family Medicine 01/26/25 Craig Boo, EAGLE [address] [place] [address] Registered Nurse Family Medicine 01/30/25 02/15/25 Faisal Lugo 01/30/25 02/15/25 documented as of this encounter
--- OUTSIDE RECORDS SUMMARY | 2025-03-15 18:06 | XMS_ITS | Encounter Summary ---
Author Organization [employer] Address [address] [facility] [facility] [address] [place] [address] Care Team Providers Care Cobol Developer Name Role Phone Jackie Abdi MD Primary Care Provider [phone] Mirta Jacobson CNP Primary Care Provider [phone] Craig Boo RN Unavailable Faisal Lugo Unavailable Encounter Details Date Type Department Care Team (Latest Contact Info) Description 01/20/2025 Results Follow-Up [facility] [address] [place] [address] Yudith Godinez RN Comprehensive Metabolic Panel, TSH [...] Description 03/16/2025 3:15 PM EST Office Visit [facility] MEDICINE [address] [place] [address] Rose Marie Shah, LOLIS [address] [place] [address] 06/27/2025 2:00 PM EDT Office Visit [facility] OPTOMETRY [address] [place] [address] David, An, OD [address] [place] [address] documented as of this encounter Visit Diagnoses Not on filedocumented in this encounter Additional Health Concerns Assessment Noted Time PHQ-9 Depression Total Score: 14 025 11:23 AM EST documented as of this encounter Care Teams Cobol Developer Relationship Specialty Start Date End Date Jackie Abdi MD [address] [place] [address] PCP - General Family Medicine 04/29/13 01/25/25 Mirta Jacobson CNP [address] [place] [address] PCP - General Family Medicine 01/26/25 Craig Boo, EAGLE [address] [place] [address] Registered Nurse Family Medicine 01/30/25 02/15/25 Faisal Lugo 01/30/25 02/15/25 documented as of this encounter
--- OUTSIDE RECORDS SUMMARY | 2025-03-15 18:06 | XMS_ITS | Encounter Summary ---
Author Organization [employer] Address [address] [facility] [address]t [place] [address] Care Team Providers Care Transmission Technician Name Role Phone Jackie Abdi MD Primary Care Provider [phone] Mirta Jacobson CNP Primary Care Provider [phone] Craig Boo RN Unavailable [phone] Faisal Lugo Unavailable Encounter Details Date Type Department Care Team (Late st Contact Info) Description 09/20/2024 Orders Only [facility] [address] [place], [place] [phone] Provider, MD Sagar Social History Tobacco Use [...] Description 03/16/2025 3:15 PM EST Office Visit [facility] MEDICINE [address] [place] [address] Rose Marie Shah, CNM [address] [place] [address] 06/27/2025 2:00 PM EDT Office Visit [facility] OPTOMETRY [address] [place] [address] David, An, OD [address] [place] [address] documented as of this encounter Procedures Procedure [...] Noted Time PHQ-9 Depression Total Score: 14 01/21/2 025 11:23 AM EST documented as of this encounter Care Teams Transmission Technician Relationship Specialty Start Date End Date Jackie Abdi MD [address] [place] [address] PCP - General Family Medicine 04/29/13 01/25/25 Mirta Jacobson CNP [address] [place] [address] PCP - General Family Medicine 01/26/25 Craig Boo, EAGLE [address] [place] [address] Registered Nurse Family Medicine 01/30/25 02/15/25 Faisal Lugo 01/30/25 02/15/25 documented as of this encounter
--- OUTSIDE RECORDS SUMMARY | 2025-03-15 18:06 | XMS_ITS | Encounter Summary ---
Author Organization [employer] Address [address] [facility] [address] [place] [address] Care Team Providers Care Lpn Or Medical Assistant Name Role Phone Jackie Abdi MD Primary Care Provider [phone] Mirta Jacobson CNP Primary Care Provider [phone] Craig Boo RN Unavailable [phone] Faisal Lugo Unavailable Reason for Visit * Reason Comments Med Refill Encounter Details Date Type Department Care Team ([facility] st Contact Info) Description 09/01/2023 Refill [facility] MED & PEDS [address] [place], [place] [phone] Ronnell Sanderson MD [address] [place], [place] [phone] Acute pain of right shoulder Social History [...] Description 03/16/2025 3:15 PM EST Office Visit [facility] MEDICINE [address] [place] [address] Rose Marie Shah, LOLIS [address] [place] [address] 06/27/2025 2:00 PM EDT Office Visit [facility] OPTOMETRY [address] [place] [address] David, An, OD [address] [place] [address] documented as of this encounter Visit Diagnoses Diagnosis Acute pain of right shoulder documented in this encounter Additional Health Concerns Assessment Noted Time PHQ-9 Depression Total Score: 21 023 8:57 AM EDT documented as of this encounter Care Teams Lpn Or Medical Assistant Relationship Specialty Start Date End Date Jackie Abdi MD [address] [place] [address] PCP - General Family Medicine 04/29/13 01/25/25 Mirta Jacobson CNP [address] [place] [address] PCP - General Family Medicine 01/26/25 Craig Boo, EAGLE [address] [place] [address] Registered Nurse Family Medicine 01/30/25 02/15/25 Faisal Lugo 01/30/25 02/15/25 documented as of this encounter
--- OUTSIDE RECORDS SUMMARY | 2025-03-15 18:06 | XMS_ITS | Encounter Summary ---
Author Organization [employer] Address 75 [facility] 7t [place] [address] Care Team Providers Care Casino Floor Walker Name Role Phone Jackie Abdi MD Primary Care Provider [phone] Mirta Jacobson CNP Primary Care Provider [phone] Craig Boo RN Unavailable [phone] Faisal Lugo Unavailable Encounter Details Date Type Department Care Team (Late st Contact Info) Description 03/18/2022 Orders Only [facility] MED & PEDS 505 [place], [place] [phone] Marielos Hooks LPN Social History Tobacco Use [...] Description 03/16/2025 3:15 PM EST Office Visit [facility]ICINE 230 [place], [place] [phone] Rose Marie Shah CNM 230 [place], [place] [phone] 06/27/2025 2:00 PM EDT Office Visit [facility] OPTOMETRY [address] [place], [place] [phone] An Hernandez OD 230 [place] [address] documented as of this encounter Visit Diagnoses Not on filedocumented in this encounter Care Teams Casino Floor Walker Relationship Specialty Start Date End Date Jackie Abdi MD 230 [place] [address] PCP - General Family Medicine 04/29/13 01/25/25 Mirta Jacobson CNP 505 [place] [address] PCP - General Family Medicine 01/26/25 Craig Boo, EAGLE 505 [place] [address] Registered Nurse Family Medicine 01/30/25 02/15/25 Faisal Lugo 01/30/25 02/15/25 documented as of this encounter
--- OUTSIDE RECORDS SUMMARY | 2025-03-15 18:06 | XMS_ITS | Encounter Summary ---
Author Organization [employer] Address [address] 7t [place] [address] Care Team Providers Care Customer Services Supervisor Name Role Phone Jackie Abdi MD Primary Care Provider [phone] Mirta Jacobson CNP Primary Care Provider [phone] Craig Boo RN Unavailable [phone] Faisal Lugo Unavailable Reason for Visit * Reason Onset Date Comments Appt materials 01/21/2023 Encounter Details Date Type Department Care Team (Late st Contact Info) Description 01/21/2023 Telephone [facility] [address] [place] [address] Sharon Fernandez DMD Appt materials Social History [...] encounter Miscellaneous Notes * Telephone Encounter - Lucindaishaan Reyes - 01/21/2023 2:19 PM EDT According to patient materials needed to fix front tooth were not available for her December appt. She wants to make sure she is all set for her January visit. Pleas follow up w/patient. documented in this encounter Plan of Treatment Upcoming Encounters Date Type Department Care Team (Late st Contact Info) Description 03/16/2025 3:15 PM EST Office Visit [facility] 230 [place] [address] Rose Marie Shah, CNM 230 [place] [address] 06/27/2025 2:00 PM EDT Office Visit [facility] [address] [place] [address] David, An, OD 230 [place] [address] documented as of this encounter Visit Diagnoses Not on filedocumented in this encounter Additional Health Concerns Assessment Noted Time PHQ-9 Depression Total Score: 21 023 8:57 AM EDT documented as of this encounter Care Teams Customer Services Supervisor Relationship Specialty Start Date End Date Jackie Abdi MD 230 [place] [address] PCP - General Family Medicine 04/29/13 01/25/25 Mirta Jacobson CNP 505 [place] [address] PCP - General Family Medicine 01/26/25 Craig Boo RN 505 [place] [address] Registered Nurse Family Medicine 01/30/25 02/15/25 Faisal Lugo 01/30/25 02/15/25 documented as of this encounter
--- OUTSIDE RECORDS SUMMARY | 2025-03-15 18:06 | XMS_ITS | Encounter Summary ---
Author Organization [employer] Address 75 [facility] 7t [place] [address] Care Team Providers Care Forestry Instructor Name Role Phone Jackie Abdi MD Primary Care Provider [phone] Mirta Jacobson CNP Primary Care Provider [phone] Craig Boo RN Unavailable [phone] Faisal Lugo Unavailable Reason for Visit * Reason Onset Date Comments Med Refill 12/08/2022 Encounter Details Date Type Department Care Team (Late st Contact Info) Description 12/08/2022 Refill [facility] CH[facility] MED & PEDS 505 [place], [place] [phone] Jackie Abdi MD 505 [place] [address] Social History Tobacco Use Types Packs/Day Years [...] Description 03/16/2025 3:15 PM EST Office Visit [facility] MEDICINE 230 [place] [address] Rose Marie Shah, LOLIS 230 [place] [address] 06/27/2025 2:00 PM EDT Office Visit [facility] OPTOMETRY [address] [place] [address] An Hernandez, OD 230 [place] [address] documented as of this encounter Visit Diagnoses Not on filedocumented in this encounter Additional Health Concerns Assessment Noted Time PHQ-9 Depression Total Score: 21 023 8:57 AM EDT documented as of this encounter Care Teams Forestry Instructor Relationship Specialty Start Date End Date Jackie Abdi MD 230 [place] [address] PCP - General Family Medicine 04/29/13 01/25/25 Mirta Jacobson CNP 505 [place], [place] [phone] PCP - General Family Medicine 01/26/25 Craig Boo, EAGLE 505 [place], [place] [address] Registered Nurse Family Medicine 01/30/25 02/15/25 Faisal Lugo 01/30/25 02/15/25 documented as of this encounter
--- OUTSIDE RECORDS SUMMARY | 2025-03-15 18:06 | XMS_ITS | Encounter Summary ---
Author Organization [employer] Address 75 [facility] 7t [place] [address] Care Team Providers Care Bmet Name Role Phone Jackie Abdi MD Primary Care Provider [phone] Mirta Jacobson CNP Primary Care Provider [phone] Craig Boo RN Unavailable [phone] Faisal Lugo Unavailable Encounter Details Date Type Department Care Team (Late st Contact Info) Description 12/08/2022 Telephone [facility] CHC MED & PEDS 505 [place], [place] [phone] Jackie Abdi MD 505 [place], [place] [phone] Social History Tobacco Use Types Packs/Day Years [...] Description 03/16/2025 3:15 PM EST Office Visit [facility] MEDICINE 230 [place] [address] Rose Marie Shah CNM 230 [place] [address] 06/27/2025 2:00 PM EDT Office Visit [facility] OPTOMETRY [address] [place] [address] An Hernandez, OD 230 [place] [address] documented as of this encounter Visit Diagnoses Not on filedocumented in this encounter Additional Health Concerns Assessment Noted Time PHQ-9 Depression Total Score: 21 023 8:57 AM EDT documented as of this encounter Care Teams Bmet Relationship Specialty Start Date End Date Jackie Abdi MD 230 [place] [address] PCP - General Family Medicine 04/29/13 01/25/25 Mirta Jacobson CNP 505 [place] [address] PCP - General Family Medicine 01/26/25 Craig Boo, EAGLE 505 [place] [address] Registered Nurse Family Medicine 01/30/25 02/15/25 Faisal Lugo 01/30/25 02/15/25 documented as of this encounter
--- OUTSIDE RECORDS SUMMARY | 2025-03-15 18:06 | XMS_ITS | Encounter Summary ---
Author Organization [employer] Address 75 [facility] 7t [place] [address] Care Team Providers Care Chronometer Assembler And Adjuster Name Role Phone Jackie Abdi MD Primary Care Provider [phone] Mirta Jacobson CNP Primary Care Provider [phone] Craig Boo RN Unavailable Faisal Lugo Unavailable Reason for Visit * Reason Onset Date Comments Results 08/04/2023 Encounter Details Date Type Department Care Team ([facility] st Contact Info) Description 08/04/2023 Telephone [facility] MED & PEDS 505 [place] [address] Jackie Abdi MD 505 [place], [place] [phone] Results Social History Tobacco Use Types Packs/Day [...] labs. Pt stated these were done by [facility] and that they diagnosed pt with [...] and culture Date when done: 08/02 Facility: [facility] Please contact pt at [phone] documented in this encounter Plan of Treatment Upcoming Encounters Date Type Department Care Team (Late st Contact Info) Description 03/16/2025 3:15 PM EST Office Visit [facility] MEDICINE 230 [place] [address] Rose Marie Shah CNM 230 [place] [address] 06/27/2025 2:00 PM EDT Office Visit [facility] OPTOMETRY [address] [place] [address] DavidAn fernández, OD 230 [place] [address] documented as of this encounter Visit Diagnoses Not on filedocumented in this encounter Additional Health Concerns Assessment Noted Time PHQ-9 Depression Total Score: 21 023 8:57 AM EDT documented as of this encounter Care Teams Chronometer Assembler And Adjuster Relationship Specialty Start Date End Date Jackie Abdi MD 230 [place] [address] PCP - General Family Medicine 04/29/13 01/25/25 Mirta Jacobson CNP 505 [place], [place] [phone] PCP - General Family Medicine 01/26/25 Craig Boo, EAGLE 505 [place], [place] [phone] Registered Nurse Family Medicine 01/30/25 02/15/25 Faisal Lugo 01/30/25 02/15/25 documented as of this encounter
--- OUTSIDE RECORDS SUMMARY | 2025-03-15 18:06 | XMS_ITS | Encounter Summary ---
Author Organization [employer] Address 75 [facility] 7t [place] [address] Care Team Providers Care Assembler Lay Ups Name Role Phone Jackie Abdi MD Primary Care Provider [phone] Mirta Jacobson CNP Primary Care Provider [phone] Craig Boo RN Unavailable [phone] Faisal Lugo Unavailable Reason for Visit * Reason Onset Date Comments Med Refill 10/24/2022 Encounter Details Date Type Department Care Team (Late st Contact Info) Description 10/24/2022 Refill [facility] MEDICINE 230 [place] [address] Jackie Abdi MD [address] [place] [address] Social History Tobacco Use Types Packs/Day Years [...] 3:15 PM EST Office Visit [facility] MEDICINE 230 [place] [address] Rose Marie hSah, LOLIS 230 [place] [address] 06/27/2025 2:00 PM EDT Office Visit [facility] OPTOMETRY [address] [place] [address] An Hernandez, OD 230 [place] [address] documented as of this encounter Visit Diagnoses Not on filedocumented in this encounter Additional Health Concerns Assessment Noted Time PHQ-9 Depression Total Score: 21 023 8:57 AM EDT documented as of this encounter Care Teams Assembler Lay Ups Relationship Specialty Start Date End Date Jackie Abdi MD 230 [place] [address] PCP - General Family Medicine 04/29/13 01/25/25 Mirta Jacobson CNP 505 [place] [address] PCP - General Family Medicine 01/26/25 Craig Boo, EAGLE 505 [place], [place] [phone] Registered Nurse Family Medicine 01/30/25 02/15/25 Faisal Lugo 01/30/25 02/15/25 documented as of this encounter
--- OUTSIDE RECORDS SUMMARY | 2025-03-15 18:06 | XMS_ITS | Encounter Summary ---
Author Organization [employer] Address 75 [facility] 7t [place] [address] Care Team Providers Care Art Supervisor Name Role Phone Jackie Abdi MD Primary Care Provider [phone] Mirta Jacobson CNP Primary Care Provider [phone] Craig Boo RN Unavailable [phone] Faisal Luog Unavailable Reason for Visit * Reason Comments Med Refill Encounter Details Date Type Department Care Team ([facility] st Contact Info) Description 10/23/[address] [facility] CHC MED & PEDS 505 [place], [place] [phone] Jackie Abdi MD 505 [place], [place] [phone] Social History Tobacco Use Types Packs/Day Years [...] Description 03/16/2025 3:15 PM EST Office Visit [facility] MEDICINE 230 [place] [address] Rose Marie Shah CNM 230 [place] [address] 06/27/2025 2:00 PM EDT Office Visit [facility] OPTOMETRY [address] [place] [address] An Hernandez, OD 230 [place] [address] documented as of this encounter Visit Diagnoses Not on filedocumented in this encounter Additional Health Concerns Assessment Noted Time PHQ-9 Depression Total Score: 21 023 8:57 AM EDT documented as of this encounter Care Teams Art Supervisor Relationship Specialty Start Date End Date Jackie Abdi MD 230 [place] [address] PCP - General Family Medicine 04/29/13 01/25/25 Mirta Jacobson CNP 505 [place] [address] PCP - General Family Medicine 01/26/25 Craig Boo, EAGLE [address] [place] [address] [place] [address] Registered Nurse Family Medicine 01/30/25 02/15/25 Faisal Lugo 01/30/25 02/15/25 documented as of this encounter
--- OUTSIDE RECORDS SUMMARY | 2025-03-15 18:06 | XMS_ITS | Encounter Summary ---
Author Organization [employer] Address 75 [facility] 7t [place] [address] Care Team Providers Care Head Mechanic Name Role Phone Jackie Abdi MD Primary Care Provider [phone] Mirta Jacobson CNP Primary Care Provider [phone] Craig Boo RN Unavailable [phone] Faisal Lugo Unavailable Encounter Details Date Type Department Care Team (Late st Contact Info) Description 08/25/2024 Orders Only [facility] 230 [place], [place] [phone] Provider, MD Sagar Social History Tobacco Use [...] Description 03/16/2025 3:15 PM EST Office Visit [facility] MEDICINE 230 [place] [address] Rose Marie Shah, CNM 230 [place] [address] 06/27/2025 2:00 PM EDT Office Visit [facility] OPTOMETRY [address] [place] [address] David, An, OD 230 [place] [address] documented as of this encounter Procedures Procedure [...] as of this encounter Care Teams Head Mechanic Relationship Specialty Start Date End Date Jackie Abdi MD 230 [place] [address] PCP - General Family Medicine 04/29/13 01/25/25 Mirta Jacobson CNP 505 [place] [address] PCP - General Family Medicine 01/26/25 Craig Boo, EAGLE 505 [place] [address] Registered Nurse Family Medicine 01/30/25 02/15/25 Faisal Lugo 01/30/25 02/15/25 documented as of this encounter
--- OUTSIDE RECORDS SUMMARY | 2025-03-15 18:06 | XMS_ITS | Encounter Summary ---
Author Organization [employer] Address [address] [place] [address] 7t [place] [address] Care Team Providers Care Gallery Manager Name Role Phone Jackie Abdi MD Primary Care Provider [phone] Mirta Jacobson CNP Primary Care Provider [phone] Craig Boo RN Unavailable [phone] Faisal Lugo Unavailable Reason for Visit * Reason Comments Med Refill Encounter Details Date Type Department Care Team ([facility] st Contact Info) Description 09/18/2022 Refill [facility] CHC MED & PEDS 505 [place], [place] [phone] Ronnell Sanderson MD 505 [place], [place] [phone] Mid-back pain, acute Social History Tobacco Use [...] Description 03/16/2025 3:15 PM EST Office Visit [facility] MEDICINE 230 [place] [address] Rose Marie Shah CNM 230 [place] [address] 06/27/2025 2:00 PM EDT Office Visit [facility] OPTOMETRY [address] [place] [address] An Hernandez, OD 230 [place] [address] documented as of this encounter Visit Diagnoses Diagnosis Mid-back pain, acute documented in this encounter Additional Health Concerns Assessment Noted Time PHQ-9 Depression Total Score: 21 023 8:57 AM EDT documented as of this encounter Care Teams Gallery Manager Relationship Specialty Start Date End Date Jackie Abdi MD 230 [place] [address] PCP - General Family Medicine 04/29/13 01/25/25 Mirta Jacobson CNP 505 [place] [address] PCP - General Family Medicine 01/26/25 Craig Boo, EAGLE 505 [place] [address] Registered Nurse Family Medicine 01/30/25 02/15/25 Faisal Lugo 01/30/25 02/15/25 documented as of this encounter
--- OUTSIDE RECORDS SUMMARY | 2025-03-15 18:06 | XMS_ITS | Encounter Summary ---
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 09/09/2023 Encounter Details Date Type Department Care Team (Late st Contact Info) Description 09/09/2023 Telephone [facility] CH[facility] ADULT DENTAL [address] [place] [address] Sharon Fernandez DMD pecan gatherer Social History Tobacco Use Types Packs/Day Years [...] Patient called in stating hat she contacted [facility] to see where she can go for [...] Description 03/16/2025 3:15 PM EST Office Visit [facility] MEDICINE 230 [place] [address] Rose Marie Shah CNM [address] [place] [address] 06/27/2025 2:00 PM EDT Office Visit [facility] OPTOMETRY [address] [place] [address] An Hernandez, AMANDA 230 [place] [address] documented as of this encounter Visit Diagnoses Not on filedocumented in this encounter Additional Health Concerns Assessment Noted Time PHQ-9 Depression Total Score: 21 023 8:57 AM EDT documented as of this encounter Care Teams Computer Analyst Supervisor Relationship Specialty Start Date End Date Jackie Abdi MD 230 [place] [address] PCP - General Family Medicine 04/29/13 01/25/25 Mirta Jacobson CNP 505 [place] [address] PCP - General Family Medicine 01/26/25 Craig Boo, EAGLE 505 [place] [address] Registered Nurse Family Medicine 01/30/25 02/15/25 Faisal Lugo 01/30/25 02/15/25 documented as of this encounter
--- OUTSIDE RECORDS SUMMARY | 2025-03-15 18:06 | XMS_ITS | Encounter Summary ---
Author Organization [employer] Address [address] [facility] [address] 7t [place] [address] Care Team Providers Care General Merchandise Salesperson Name Role Phone Mirta Jacobson CNP Primary Care Provider [phone] Encounter Details Date Type Department Care Team (Latest Contact Info) Description 03/15/2025 Travel Social History Tobacco Use Types Packs/Day [...] Description 03/16/2025 3:15 PM EST Office Visit [facility] MEDICINE 230 [place] [address] Rose Marie Shah CNM 230 [place] [address] 06/27/2025 2:00 PM EDT Office Visit [facility] OPTOMETRY [address] [place] [address] David, An, OD 230 [place] [address] documented as of this encounter Visit Diagnoses Not on filedocumented in this encounter Additional Health Concerns Assessment Noted Time PHQ-9 Depression Total Score: 14 025 11:23 AM EST documented as of this encounter Care Teams General Merchandise Salesperson Relationship Specialty Start Date End Date Mirta Jacobson CNP 505 [place] [address] PCP - General Family Medicine 01/26/25 documented as of this encounter
--- OUTSIDE RECORDS SUMMARY | 2025-03-15 18:06 | XMS_ITS | Encounter Summary ---
Author Organization [employer] Address [address] [place] [address] 7t [place] [address] Care Team Providers Care Copy Supervisor Name Role Phone Jackie Abdi MD Primary Care Provider Mirta Jacobson CNP Primary Care Provider [phone] Craig Boo RN Unavailable [phone] Faisal Lugo Unavailable Encounter Details Date Type Department Care Team ([facility] st Contact Info) Description 08/28/2022 Orders Only [facility] CHC MED & PEDS 505 [place], [place] [phone] Ronnell Sanderson MD 505 [place], [place] [phone] Social History Tobacco Use Types Packs/Day Years [...] Description 03/16/2025 3:15 PM EST Office Visit [facility] MEDICINE 230 [place] [address] Rose Marie Shah, CNM 230 [place] [address] 06/27/2025 2:00 PM EDT Office Visit [facility] OPTOMETRY [address] [place] [address] David, An, OD 230 [place] [address] documented as of this encounter Visit Diagnoses Not on filedocumented in this encounter Additional Health Concerns Assessment Noted Time PHQ-9 Depression Total Score: 21 023 8:57 AM EDT documented as of this encounter Care Teams Copy Supervisor Relationship Specialty Start Date End Date Jackie Abdi MD 230 [place] [address] PCP - General Family Medicine 04/29/13 01/25/25 Mirta Jacobson CNP 505 [place] [address] PCP - General Family Medicine 01/26/25 Craig Boo, EAGLE 505 [place] [address] Registered Nurse Family Medicine 01/30/25 02/15/25 Faisal Lugo 01/30/25 02/15/25 documented as of this encounter
--- OUTSIDE RECORDS SUMMARY | 2025-03-15 18:06 | XMS_ITS | Encounter Summary ---
Author Organization [employer] Address [address] [facility] [address] 7t [place] [address] Care Team Providers Care Dieing Out Machine Operator Name Role Phone Jackie Abdi MD Primary Care Provider [phone] Mirta Jacobson CNP Primary Care Provider [phone] Craig Boo RN Unavailable [phone] Faisal Lugo Unavailable Encounter Details Date Type Department Care Team (Late st Contact Info) Description 09/26/2024 Orders Only [facility] CHC MED & PEDS 505 [place], [place] [phone] Provider, MD Sagar Social History Tobacco Use [...] Description 03/16/2025 3:15 PM EST Office Visit [facility] MEDICINE 230 [place] [address] Rose Marie Shah, CNM 230 [place] [address] 06/27/2025 2:00 PM EDT Office Visit [facility] OPTOMETRY [address] [place] [address] David, An, OD 230 [place] [address] documented as of this encounter Procedures Procedure [...] documented as of this encounter Care Teams Dieing Out Machine Operator Relationship Specialty Start Date End Date Jackie Abdi MD [address] [place] [address] PCP - General Family Medicine 04/29/13 01/25/25 Mirta Jacobson CNP 505 [place] [address] PCP - General Family Medicine 01/26/25 Craig Boo, EAGLE 505 [place] [address] Registered Nurse Family Medicine 01/30/25 02/15/25 Faisal Lugo 01/30/25 02/15/25 documented as of this encounter
--- OUTSIDE RECORDS SUMMARY | 2025-03-15 18:07 | XMS_ITS | Encounter Summary ---
Author Organization [employer] Address 75 [facility] 7t [place] [address] Care Team Providers Care Superintendent Gas Distribution Name Role Phone Jackie Abdi MD Primary Care Provider [phone] Mirta Jacobson CNP Primary Care Provider [phone] Craig Boo RN Unavailable [phone] Faisal Lugo Unavailable Reason for Visit * Reason Onset Date Comments call back 06/03/2022 Encounter Details Date Type Department Care Team (Late st Contact Info) Description 06/03/2022 Telephone [facility] MEDICINE 230 [place] [address] Jackie Abdi MD [address] [place], [place] [phone] call back Social History Tobacco Use Types [...] a call back. Please contact pt at [phone] documented in this encounter Plan of Treatment Upcoming Encounters Date Type Department Care Team (Late st Contact Info) Description 03/16/2025 3:15 PM EST Office Visit [facility] MEDICINE 230 [place] [address] Rose Marie Shah, CNM 230 [place] [address] 06/27/2025 2:00 PM EDT Office Visit [facility] OPTOMETRY [address] [place] [address] An Hernandez, OD 230 [place] [address] documented as of this encounter Visit Diagnoses Not on filedocumented in this encounter Care Teams Superintendent Gas Distribution Relationship Specialty Start Date End Date Jackie Abdi MD 230 [place] [address] PCP - General Family Medicine 04/29/13 01/25/25 Mirta Jacobson CNP 505 [place] [address] PCP - General Family Medicine 01/26/25 Craig Boo, EAGLE 505 [place], [place] [address] Registered Nurse Family Medicine 01/30/25 02/15/25 Faisal Lugo 01/30/25 02/15/25 documented as of this encounter
--- OUTSIDE RECORDS SUMMARY | 2025-03-15 18:07 | XMS_ITS | Encounter Summary ---
Author Organization [employer] Address [address] [facility] 7t [place] [address] Care Team Providers Care Social Worker Aide Name Role Phone Jackie Abdi MD Primary Care Provider [phone] Mirta Jacobson CNP Primary Care Provider [phone] Craig Boo RN Unavailable [phone] Faisal Lugo Unavailable Reason for Visit * Reason Onset Date Comments Med Refill 11/13/2023 Encounter Details Date Type Department Care Team (Late st Contact Info) Description 11/13/2023 Refill [facility] [address] [place] [address] Jackie Abdi MD [address] [place], [place] [phone] Social History Tobacco Use Types Packs/Day Years [...] EST Office Visit [facility] [address] [place] [address] Rose Marie Shah, CNM [address] [place] [address] 06/27/2025 2:00 PM EDT Office Visit [facility] [address] [place] [address] David, An, OD [address] [place] [address] documented as of this encounter Visit Diagnoses Not on filedocumented in this encounter Additional Health Concerns Assessment Noted Time PHQ-9 Depression Total Score: 21 023 8:57 AM EDT documented as of this encounter Care Teams Social Worker Aide Relationship Specialty Start Date End Date Jackie Abdi MD [address] [place] [address] PCP - General Family Medicine 04/29/13 01/25/25 Mirta Jacobson CNP [address] [place] [address] PCP - General Family Medicine 01/26/25 Craig Boo, RN [address] [place] [address] Registered Nurse Family Medicine 01/30/25 02/15/25 Faisal Lugo 01/30/25 02/15/25 documented as of this encounter
--- OUTSIDE RECORDS SUMMARY | 2025-03-15 18:07 | XMS_ITS | Encounter Summary ---
Author Organization [employer] Address [address] [facility] 7t [place] [address] Care Team Providers Care Certified Addiction Counselor Name Role Phone Jackie Abdi MD Primary Care Provider [phone] Mirta Jacobson CNP Primary Care Provider [phone] Craig Boo RN Unavailable [phone] Faisal Lugo Unavailable Encounter Details Date Type Department Care Team ([facility] Contact Info) Description 06/03/2022 Orders Only [facility] [address] [place], [place] [phone] Kaylin Kaur MD [address] [place], [place] [phone] Mid-back pain, acute (Primary Dx) Social History [...] ([facility] st Contact Info) Description 03/16/2025 3:15 PM EST Office Visit [facility] [address] [place] [address] Rose Marie Shah CNM [address] [place] [address] 06/27/2025 2:00 PM EDT Office Visit [facility] [address] [place], [place] [phone] An Hernandez, OD [address] [place] [address] documented as of this encounter Visit Diagnoses Diagnosis Mid-back pain, acute- Primary documented in this encounter Care Teams Certified Addiction Counselor Relationship Specialty Start Date End Date Jackie Abdi MD 230 [place] [address] PCP - General Family Medicine 04/29/13 01/25/25 Mirta Jacobson CNP [address] [place] [address] PCP - General Family Medicine 01/26/25 Craig Boo, EAGLE [address] [place], [place] [phone] Registered Nurse Family Medicine 01/30/25 02/15/25 Faisal Lugo 01/30/25 02/15/25 documented as of this encounter
--- OUTSIDE RECORDS SUMMARY | 2025-03-15 18:07 | XMS_ITS | Encounter Summary ---
Author Organization [employer] Address [address] [facility] [address] [place] [address] Care Team Providers Care Tax Expert Name Role Phone Jackie Abdi MD Primary Care Provider [phone] Mirta Jacobson CNP Primary Care Provider [phone] Craig Boo RN Unavailable [phone] Faisal Lugo Unavailable Encounter Details Date Type Department Care Team (Late st Contact Info) Description 12/07/2023 Orders Only [facility] [address] [place], [place] [phone] Hiren Garcia MD [address] [place], [place] [phone] Social History Tobacco Use Types Packs/Day Years [...] 03/16/2025 3:15 PM EST Office Visit [facility] [address] [place] [address] Rose Marie Shah, LOLIS [address] [place] [address] 06/27/2025 2:00 PM EDT Office Visit [facility] [address] [place], [place] [phone] An Hernandez, OD [address] [place] [address] documented as of this encounter Procedures Procedure Name Priority Date/Time Associated Diagnosis Comments STRESS TEST WITH MYOCARDIAL PERFUSION Routine 01/01/2024 9:09 AM EDT documented in this encounter Results * Stress test with myocardial perfusion (01/01/2024 9:09 AM EDT) 01/01/2024 9:09 AM EDT Narrative [facility] - 01/04/2024 4:19 PM EDT [address] [address] Nuclear Medicine Report Signed Patient: Sade Fraga MR#: [id number] 4 : 1970 Acct:[id number] Age/Sex: 53 / F ADM Date: 01/01/24 Loc: .CARD Attending Dr: Abdelrahman Ricketts MD Ordering Physician: Abdelrahman Ricketts MD Date of Service: 01/01/24 Procedure(s): NM cardiolite stress test Accession Number(s): [id number] cc: Jackie Abdi MD; Abdelrahman Ricketts MD [...] no clear reversible or fixed perfusion abnormality. [place] cardiolite stress test IMPRESSION: 1. Myocardial perfusion imaging study shows probably normal myocardial perfusion. 2. Gated LVEF is 60% during stress and 68% during rest. 3. Transient ischemic dilatation not present. EKG component of the test reported separately. Electronically signed by: Abdelrahman Rikcetts MD 01/04/2024 04:16 PM EDT Dictated By: Abdelrahman Ricketts MD Signed By: <Electronically signed by Abdelrahman Ricketts MD in OV> 01/04/24 1616 DD/ 0909 TD/TT: 01/04/24 1200 Milling/Polishing Operator: Procedure Note Donotuseinterpreter, Image - 01/04/[address] [address] Nuclear Medicine Report Signed Patient: Gray Fraga#: [id number] 4 : 1970Acct:[id number] Age/Sex: 53 / FADM Date: 01/01/24 Loc: .[facility] Attending Dr: Abdelrahman Ricketts MD Ordering Physician: Abdelrahman Ricketts MD Date of Service: 01/01/24 Procedure(s): NM cardiolite stress test Accession Number(s): [id number] cc: Jackie Abdi MD; Abdelrahman Ricketts MD [...] 01/04/24 1616 DD/ 0909 TD/TT: 01/04/24 1200 Milling/Polishing Operator: us [facility] External Provider CV STRE SS PROCEDURES Final Result [facility] [address] [place] [address] documented in this encounter Visit Diagnoses Not on filedocumented in this encounter Additional Health Concerns Assessment Noted Time PHQ-9 Depression Total Score: 21 023 8:57 AM EDT documented as of this encounter Care Teams Tax Expert Relationship Specialty Start Date End Date Jackie Abdi MD [address] [place] [address] PCP - General Family Medicine 04/29/13 01/25/25 Mirta Jacobson CNP [address] [place] [address] PCP - General Family Medicine 01/26/25 Craig Boo, EAGLE [address] [place] [address] Registered Nurse Family Medicine 01/30/25 02/15/25 Faisal Lugo 01/30/25 02/15/25 documented as of this encounter
--- OUTSIDE RECORDS SUMMARY | 2025-03-15 18:07 | XMS_ITS | Encounter Summary ---
Author Organization [employer] Address [address] [facility] 7t [place] [address] Care Team Providers Care Convention Planner Name Role Phone Jackie Abdi MD Primary Care Provider [phone] Mirta Jacobson CNP Primary Care Provider [phone] Craig Boo RN Unavailable [phone] Faisal Lugo Unavailable Encounter Details Date Type Department Care Team ([facility] st Contact Info) Description 03/11/2023 [facility] [address] [place] [address] Jackie Abdi MD [address] [place], [place] [phone] Social History Tobacco Use Types Packs/Day Years [...] Description 03/16/2025 3:15 PM EST Office Visit [facility] [address] [place] [address] Rose Marie Shah CNM [address] [place] [address] 06/27/2025 2:00 PM EDT Office Visit [facility] [address] [place] [address] An Hernandez, OD [address] [place] [address] documented as of this encounter Visit Diagnoses Not on filedocumented in this encounter Additional Health Concerns Assessment Noted Time PHQ-9 Depression Total Score: 21 023 8:57 AM EDT documented as of this encounter Care Teams Convention Planner Relationship Specialty Start Date End Date Jackie Abdi MD [address] [place] [address] PCP - General Family Medicine 04/29/13 01/25/25 Mirta Jacboson CNP [address] [place] [address] PCP - General Family Medicine 01/26/25 Craig Boo, RN [address] [place] [address] [place] [address] Registered Nurse Family Medicine 01/30/25 02/15/25 Faisal Lugo 01/30/25 02/15/25 documented as of this encounter
--- OUTSIDE RECORDS SUMMARY | 2025-03-15 18:07 | XMS_ITS | Encounter Summary ---
Author Organization [employer] Address [address] [facility] 7t [place] [address] Care Team Providers Care Oil Well Cable Tool Driller Name Role Phone Jackie Abdi MD Primary Care Provider [phone] Mirta Jacobson CNP Primary Care Provider [phone] Craig Boo RN Unavailable [phone] Faisal Lugo Unavailable Reason for Visit * Reason Comments Med Refill Encounter Details Date Type Department Care Team (Late st Contact Info) Description 11/13/2023 Refill [facility] [address] [place] [address] Jackie Abdi MD [address] [place], [place] [phone] Social History Tobacco Use Types Packs/Day Years [...] Description 03/16/2025 3:15 PM EST Office Visit [facility] [address] [place] [address] Rose Marie Shah CNM [address] [place] [address] 06/27/2025 2:00 PM EDT Office Visit [facility] [address] [place] [address] An Hernandez, OD [address] [place] [address] documented as of this encounter Visit Diagnoses Not on filedocumented in this encounter Additional Health Concerns Assessment Noted Time PHQ-9 Depression Total Score: 21 023 8:57 AM EDT documented as of this encounter Care Teams Oil Well Cable Tool Driller Relationship Specialty Start Date End Date Jackie Abdi MD [address] [place] [address] PCP - General Family Medicine 04/29/13 01/25/25 Mirta Jacobson CNP [address] [place] [address] PCP - General Family Medicine 01/26/25 Craig Boo, RN [address] [place] [address] [place] [address] Registered Nurse Family Medicine 01/30/25 02/15/25 Faisal Lugo 01/30/25 02/15/25 documented as of this encounter
--- OUTSIDE RECORDS SUMMARY | 2025-03-15 18:07 | XMS_ITS | Encounter Summary ---
Author Organization [email or web address] Address [address] [facility] [address]t [place] [address] Care Team Providers Care Mold Cleaner Name Role Phone Jackie Abdi MD Primary Care Provider [phone] Mirta Jacobson CNP Primary Care Provider [phone] Craig Boo RN Unavailable [phone] Faisal Lugo Unavailable Reason for Visit * Reason Comments Med Refill Encounter Details Date Type Department Care Team (Late st Contact Info) Description 06/08/2023 Refill [facility] [address] [place] [address] Jackie Abdi MD [address] [place], [place] [phone] Depressed mood Social History Tobacco Use Types [...] Visit [facility] [address] [place] [address] Rose Marie Shah CNM [address] [place] [address] 06/27/2025 2:00 PM EDT Office Visit [facility] [address] [place] [address] An Hernandez, OD [address] [place] [address] documented as of this encounter Visit Diagnoses Diagnosis Depressed mood documented in this encounter Additional Health Concerns Assessment Noted Time PHQ-9 Depression Total Score: 21 023 8:57 AM EDT documented as of this encounter Care Teams Mold Cleaner Relationship Specialty Start Date End Date Jackie Abdi MD [address] [place] [address] PCP - General Family Medicine 04/29/13 01/25/25 Mirta Jacobson CNP [address] [place] [address] PCP - General Family Medicine 01/26/25 Craig Boo, RN [address] [place] [address] [place] [address] Registered Nurse Family Medicine 01/30/25 02/15/25 Faisal Lugo 01/30/25 02/15/25 documented as of this encounter
--- OUTSIDE RECORDS SUMMARY | 2025-03-15 18:07 | XMS_ITS | Clinical Summary ---
Author Organization [employer] Address [address] [facility] [address] [place] [address] Care Team Providers Care Juvenile Justice Specialist Name Role Phone Mirta Jacobson CNP Primary Care Provider [phone] Allergies Active Allergy Reactions Criticality Noted Date Comments Sulfamethoxazole-Trimethoprim Angioedema 2023 Medications Multiple Vitamin (Multi-Vitamin) tablet Take 1 tablet by mouth at bed time. Active cholecalciferol (Vitamin D-3) 1.25 MG (93812 UT) capsule Take 1 capsule by mouth. [...] MOUTH TWICE DAILY 180 tablet 024 Active dicyclomine (Bentyl) 10 MG capsuleIndications :History of cholecystectomy Take 1 capsule (10 mg) by mouth 3 times daily. 90 capsule 3 Active Symbicort 80-4.5 MCG/ACT inhaler INHALE 2 [...] CAPSULE BY MOUTH TWICE DAILY 40 capsule Active loratadine (Claritin) 10 MG tablet Take 1 tablet (10 mg) by mouth Once per day. 30 tablet 11 025 2025 Active amoxicillin (Amoxil) 500 MG capsuleIndications :Pharyngitis, unspecified etiology Take 1 tab po bid for 10 days 20 capsule 025 Active levothyroxine (Synthroid) 25 MCG tablet Take 1 tablet (25 mcg) by mouth before breakfast. 30 tablet 025 2025 Active FLUoxetine (PROzac) 10 MG capsule TAKE 1 CAPSULE(10 MG) BY MOUTH DAILY 30 capsule Active omeprazole (PriLOSEC) [address] capsule TAKE 1 CAPSULE(40 MG) BY MOUTH BEFORE BREAKFAST. DO NOT CRUSH OR CHEW 90 capsule 3 Active Diclofenac Sodium 1 % gelIndications:Nec k pain To apply to the affected area 3 times a day 100 g 2 025 Active mirtazapine (Remeron) 7.5 MG tabletIndications: Anxiety,Other insomnia Take 1 tablet (7.5 mg) by mouth at bedtime. 30 tablet 3 025 Active cyclobenzaprine (Flexeril) 10 MG tablet Take 1 tablet (10 mg) by mouth at bedtime. TAKE 1 TABLET(10 MG) BY MOUTH AT BEDTIME 10 tablet 025 Active hydrOXYzine pamoate (Vistaril) 50 MG capsule TAKE 1 CAPSULE BY MOUTH TWICE DAILY 60 capsule 3 025 Active cyclobenzaprine (Flexeril) 10 MG tablet TAKE 1 TABLET(10 MG) BY MOUTH AT BEDTIME 30 tablet 025 2024 Discontinued(R eorder (will not trigger notification to Pharmacy)) hydrOXYzine pamoate (Vistaril) 50 MG capsule TAKE 1 CAPSULE BY MOUTH TWICE DAILY 60 capsule 3 025 2024 Discontinued Active Problems Problem Noted Date [...] Encounters Date Type Department Care Team Description 03/15/2025 Telephone [facility] [address] [place] [phone] Pola Maldonado CNM chart prep 03/15/2025 Travel 03/06/2025 Refill [facility] [address] [place] [phone] Jackie Abdi MD 02/20/2025 Refill [facility] [address] [place] [address] Jackie Abdi MD 02/15/2025 Patient Outreach [address] [address] Mirta Jacobson CNP Care Coordination (C3/W Faisal Lugo, initial outreach_declined ) 02/15/2025 Patient Outreach [address] [address] Mirta Jacobson CNP 01/30/2025 Patient Outreach [address] [address] Mirta Jacobson CNP Care Coordination (C3CM/W Faisal Lugo, Chart review) 01/30/2025 Patient Outreach [facility] [address] [place] [address] Mirta Jacobson CNP Care Coordination (C3CM- chart review) 01/30/2025 Patient Outreach [address] [address] Mirta Jacobson CNP 01/20/2025 Results Follow-Up [facility] [address] [place] [address] Yudith Godinez RN Comprehensive Metabolic Panel, TSH W/Reflex to FT4, CBC auto differential 01/17/2025 2:40 PM EDT Office Visit [facility] [address] [place] [address] Ronnell Sanderson MD Weight loss, unintentional (Primary Dx); Neck pain; Anxiety; Other insomnia 01/17/2025 Travel 01/17/2025 Telephone [facility] [address] [place] [address] Jackie Abdi MD Nurse Triage 12/28/2024 Refill [facility] [address] [place] [address] Jackie Abdi MD 12/15/2024 Telephone [facility] [address] [place] [address] Jackie Abdi MD Results 12/14/2024 Results Follow-Up [facility] [address] [place] [address] Stephenie Mcdaniels MD XR CERVICAL SPINE 4V, CBC auto differential, Comprehensive Metabolic Panel, Additional followed-up results: 8 from Last 3 Months Immunizations Immunization Administration [...] Visit [facility] [address] [place] [address] Pola Maldonado CNM [address] [place] [address] 06/27/2025 2:00 PM EDT Office Visit [facility] [address] [place] [address] David, An, OD [address] [place] [address] Health Maintenance Due Date Last Done Comments CT Colonography 1972 Colonoscopy 1972 FIT 1972 Sigmoidoscopy 1972 Alcohol/Substance Use Screening 1984 RSV Patients and Patients Aged 60 years or older (1 - Risk 50-74 years 1-dose series) 2022 Dental X-Ray: Bitewings 05/27/2023 05/26/2022 Dental Oral Exam 09/10/2023 03/10/2023, 05/26/2022 Dental Prophylaxis 09/10/2023 03/10/2023, 06/27/2022 FOBT 02/24/2024 02/23/2023 Depression Monitoring 10/17/2024 04/19/2024, 025 Disability Screening 06/21/2025 06/21/2024 SDOH Screening 06/21/2025 06/21/2024 Tobacco Screening 01/17/2026 01/17/2025 Colorectal Cancer Screening 02/23/2026 FIT DNA/Cologuard 02/23/2026 02/23/2023 Mammogram 06/03/2026 06/03/2024, 03/02/2020 Dental X-Ray: Full Mouth 11/18/2026 11/18/2023, 05/01 Cervical Cancer Screening 04/08/2027 HPV/Cotest 04/08/2027 04/08/2022 Pap Smear 04/08/2027 04/08/2022 Lipid Panel 09/29/2029 09/29/2024, 08/28, 08/03/2020, Additional history exists DTaP/Tdap/Td Vaccines (3 - Td or Tdap) 03/03/2035 03/03/2025, 01/19/2012 Hepatitis B Vaccines Completed 03/18/2024, 02/08/2021, 01/09/2021 Pneumococcal Vaccine: 50+ Years Completed 03/18/2024, 02/21/2017 Zoster Vaccines Completed 03/18/2024, 12/03/2023 HIV Screening Completed 12/13/2024, 12/12/2020 Hepatitis C Screening Completed 12/13/2024, 021 COVID-19 Vaccine Completed 03/03/2025, 07/2023, 01/16/2023, Additional history exists Hepatitis A Vaccines Aged Out 03/03/2025, 03/18/20 24 No longer eligible based on patient's age to complete this topic Influenza Vaccine Completed 03/03/2025, , 01/16/2023, Additional history exists HIB Vaccines Aged Out No longer eligi [...] 01/19/2025 11:40 AM EDT Weight loss, unintentional HEPATITIS PANEL, GENERAL Routine 12/13/2024 2:34 PM EDT Unintentional weight loss HIV 1/2 ANTIGEN/ANTIBODY, FOURTH GENERATION W/RFL Routine 12/13/2024 2:34 PM EDT Unintentional weight loss LIPID PANEL, STANDARD Routine 09/29/2024 9:15 AM [...] CBC auto differential (01/19/2025 11:48 AM EDT) White Blood Count 5.1 4.8 - 10.8 X10*3/uL [facility] Red Blood Count 4.67 4.20 - 5.50 X10*6/uL [facility] Hemoglobin 12.6 12.0 - 16.0 g/dl [facility] Hematocrit 39.5 37.0 - 47.0 % [facility] Mean Corpuscular Volume 84.6 80.0 - 98.0 fL [facility] Mean Corpuscular Hemoglobin 27.0 27.0 - 33.0 pg [facility] Mean Corpuscular HGB Conc 31.9 31.0 - 35.0 g/dl [facility] Red Cell Distribution Width 16.6(H) 11.0 - 16.0 % [facility] Platelet Count 356 160 - 400 X10*3/uL [facility] Mean Platelet Volume 10.5 9.4 - 12.3 fL [facility] Neutrophils Percent Auto 52.3 45 - 73 % [facility] Imm Gran Pct Auto 0.2 0.0 - 0.4 % [facility] Lymphocytes Percent Auto 33.9 20 - 40 % [facility] Monocytes Percent Auto 10.1 2 - 11 % [facility] Eosinophils Percent Auto 2.5 0 - 4 % [facility] Basophils Percent Auto 1.0 0 - 2 % [facility] NRBC Pct Auto 0.0 0.0 - 0.2 /100WBC [facility] Neutrophils Absolute Auto 2.7 2.0 - 8.3 x10*3/uL [facility] Imm Gran Abs Auto 0.01 0.00 - 0.03 X10*3/uL [facility] Lymphocytes Absolute Auto 1.7 1.2 - 4.9 X10*3/uL [facility] Monocytes Absolute Auto 0.5 0.1 - 1.2 X10*3/uL [facility] Eosinophils Absolute Auto 0.1 0.0 - 0.4 X10*3/uL [facility] Basophils Absolute Auto 0.1 0.0 - 0.2 X10*3/uL [facility] NRBC Abs Auto 0.000 0.0 - 0.012 X10*3/uL [facility] Blood Venous blood specimen / Unknown 01/19/2025 11:48 AM EDT 01/19/2025 2:32 PM EDT us Ronnell Sanderson MD LAB BLOOD ORDERABLES Final Result [facility] [address] [place] [phone] * TSH W/Reflex to FT4 (01/19/2025 11:40 AM EDT) TSH reflex Free T4 0.94 0.32 - 4.0 uIU/mL [facility] Blood Venous blood specimen / Unknown 01/19/2025 11:40 AM EDT 01/19/2025 2:25 PM EDT us Ronnell Sanderson MD LAB BLOOD ORDERABLES Final Result [facility] [address] [place] [phone] * (ABNORMAL) Comprehensive Metabolic Panel (01/19/2025 11:40 AM EDT) Sodium 146(H) 135 - 145 mmol/L [facility] Potassium 3.6 3.3 - 5.1 mmol/L [facility] Chloride 110(H) 96 - 108 mmol/L [facility] Carbon Dioxide 27 22 - 29 mmol/L [facility] Anion Gap 13 12 - 20 [facility] Urea Nitrogen (BUN) 13 9 - 16 mg/dL [facility] Creatinine, Serum 1.13 0.5 - 1.4 mg/dL [facility] Estimated Glomerular Filt Rate 51 [facility] Comment:Chronic Kidney Disea se: Estimated GFR < 60 mL/min/1.89i0Fhegzf Kidney Disease: Estimated GFR < 15 mL/min/1.73m2 Glucose 73 60 - 115 mg/dL [facility] Calcium 9.0 8.4 - 10.2 mg/dL [facility] Bilirubin, Total 0.2 0.0 - 1.0 mg/dL [facility] Aspartate Amino Transferase 19 5 - 31 U/L [facility] Alanine Aminotransferase 20 0 - 31 U/L [facility] Total Protein 7.4 6.5 - 8.0 g/dL [facility] Albumin Level 4.4 3.5 - 5.0 g/dL [facility] Alkaline Phosphatase 84 39 - 117 U/L [facility] Blood Venous blood specimen / Unknown 01/19/2025 11:40 AM EDT 01/19/2025 2:25 PM EDT us Ronnell Sanderson MD LAB BLOOD ORDERABLES Final Result [facility] [address] [place] [phone] [phone] * Hepatitis Panel, General (12/13/2024 2:34 PM EDT) Hepatitis A IgM Nonreactive Nonreactive [facility] Comment:IgM antibodies to HERNANDEZ V not detected; does not exclude earlyacute or recovered HAV infection. ~Hepatitis B Surface Antibody REACTIVE Nonreactive [facility] Comment:REACTIVE: > 11.99 mI U/mL Hepatitis B Core Antibody Nonreactive Nonreactive [facility] Hepatitis C Antibody Nonreactive Nonreactive [facility] Comment:Antibodies to HCV no t detected; does not exclude early acuteHCV infection. Hepatitis B Surface Ag Negative Negative [facility] Blood Venous blood specimen / Unknown 12/13/2024 2:34 PM EDT 12/13/2024 4:04 PM EDT Stephenie Chappell MD LAB BLOOD ORDERABLES Final Result [facility] [address] [place] [phone] * HIV-1/2 Antigen and Antibodies, Fourth Generation, with Reflexes (12/13/2024 2:34 PM EDT) Pathologist [facility] HIV AB/AG Nonreactive Nonreactive [facility] Comment:HIV-1 p24 Ag and/or HIV-1/HIV-2 Ab not detected.A test result that is nonreactive does not exclude thepossibility of exposure to or infection with HIV-1 and/orHIV-2. Nonreactive results in this assay for individualswith prior exposure to HIV-1 and/or HIV-2 may be due toantigen and antibody levels that are below the limit ofdetection of this assay.The [employer] HIV Ag/Ab Combo assay result andsupplemental assay results should be interpreted inconjunction with the patient's clinical presentation,history and other laboratory results. If the results areinconsistent with clinical evidence, additional testing issuggested to confirm the result. Blood Venous blood specimen / Unknown 12/13/2024 2:34 PM EDT 12/13/2024 4:04 PM EDT us Stephenie Chappell MD LAB BLOOD ORDERABLES Final Result Performing Organization Address [facility]/ZIP Co de Phone Number [facility] [address] [place] [phone] * (ABNORMAL) Lipid Panel, Standard (09/29/2024 9:15 AM EDT) Triglycerides 132 <150 mg/dL [facility] Comment:Desirable Triglyceri de: less than 150 mg/dLBorderline High Triglyceride 150-199 mg/dLHigh Triglyceride: 200-499 mg/dLVery High Triglyceride: greater than or equal to 5OO mg/dL Cholesterol 157 <200 mg/dL [facility] Comment:Desirable Cholestero l: less than 200 mg/dLBorderline High Cholesterol: 200-239 mg/dLHigh Cholesterol: greater than 239 mg/dL LDL Cholesterol Calculated 100(H) <100 mg/dL [facility] Comment:Desirable LDL: less than 100 mg/dLNear Optimal/Above Optimal LDL: 110- 129 mg/dLBorderline High LDL: 130-159 mg/dLHigh LDL: 160-189 mg/dLVery High LDL: greater than or equal to 190 mg/dL HDL Cholesterol 31(L) >40 mg/dL [facility] Comment:Desirable HDL: great er than 40 mg/dL Note: This HDL assay may give artificially low results in patients with liver disease. Blood Venous blood specimen / Unknown 09/29/2024 9:15 AM EDT 09/29/2024 2:53 PM EDT us Jackie Abdi MD LAB BLOOD ORDERABLES Final Resul t Performing Organization Address City/[facility]/ZIP Co de Phone Number [facility] [address] [place] [phone] * BI Mammogram Screening Tomosynthesis Bilateral (06/03/2024 9:45 AM EST) Anatomical Region Laterality Modality Breast Bilateral Mammography 06/03/2024 9:45 AM EST Narrative 06/12/2024 4:59 PM EDT [address] [place], [place] [address] Mammography Report Signed Patient: Sade Fraga MR#: [id number] 4 : 1970 Acct:[id number] Age/Sex: 54 / F ADM Date: 06/03/24 Loc: HO.MAMMO Attending Dr: Pola Maldonado CNM Ordering Physician: POLA MALDONADO CNM Results: 1 Negative Date of Service: 06/03/24 Follow Up: 1 Year From Orig inal Mammogram Procedure(s): MM tomosynthesis screening BI Accession Number(s): [id number] cc: Jackie Abdi MD; POLA MALDONADO CNM [...] 06/12/24 1656 DD/ 0945 TD/TT: 06/03/24 1010 Launch Steward: Procedure Note Donotuseinterpreter, Image - 06/12/[address] [place] [address] Mammography Report Signed Patient: Gray Fraga#: [id number] 4 : 1970Acct:[id number] Age/Sex: 54 / FADM Date: 06/03/24 Loc: HO.MAMMO Attending Dr: Pola Maldonado CNM Ordering Physician: POLA MALDONADOesults: 1 Negative Date of Service: 06/03/24Follow Up: 1 Year From Orig inal Mammogram Procedure(s): MM tomosynthesis screening BI Accession Number(s): [id number] cc: Jackie Abdi MD; POLA MALDONADO CNM [...] 06/12/24 1656 DD/ 0945 TD/TT: 06/03/24 1010 Launch Steward: Pola Maldonado CNM IM BI PROCEDURES Final R esult * Cologuard?? colon cancer screening (02/23/2023 10:44 AM EST) Cologuard Result Negative Negative 03/01/20 23 3:14 PM [facility] [employer] (CLIA #:[id number]) Comment: NEGATIVE TEST RESULT. A negative Cologuard [...] screened with both Cologuard and colonoscopy. (Javi Amezquita. et al, N Engl J Med 2014;370(14):9997-6483) The normal value (reference range) for this assay is negative. COLOGUARD RE-SCREENING RECOMMENDATION: Periodic colorectal cancer screening is an important part of preventive healthcare for asymptomatic individuals at average risk for colorectal cancer. Following a negative Cologuard result, the [place] Cancer Society and U.S. Multi-Society Task Force screening guidelines recommend a Cologuard re-screening interval of 3 years. References: [place] [employer] Guideline for Colorectal Cancer Screening: https://www.cancer.org/cancer/neyss-fdokgr-blhuca/dzhmbsgji-ehublwxvm-vujpeut/ac s-rec ommendations.html.; Bean OVALLES, Mitchell GAO, Dank WeberK, Colorectal Cancer Screening: Recommendations for Physicians and Patients from the U.S. Multi-Society Task Force on Colorectal Cancer Screening , Am J Gastroenterology 2017; 112:7727-3890. TEST DESCRIPTION: Composite algorithmic analysis of stool [...] (Javi Frank al, N Engl J Med 2014;370(14):4940-2373.) Cologuard may produce a false negative or false positive result (no colorectal cancer or precancerous polyp present at colonoscopy follow up). A negative Cologuard test result does not guarantee the absence of CRC or advanced adenoma (pre-cancer). The current Cologuard screening interval is every 3 years. ([place] Cancer Society and U.S. Multi-Society Task Force). Cologuard performance data in a 10,000 patient pivotal study using colonoscopy as the reference method can be accessed at the following location: www.[employer]/results. Additional description of the Cologuard test process, warnings and precautions can be found at www.ClearMomentumrd.com. Stool specimen (specimen) 02/23/2023 10:44 AM EST 02/24/2023 1:44 PM EST Jackie Abdi MD LAB MOLECULAR DIAGNOSTICS ORDERA BLE Final Result [employer] (CLIA #:[id number]) [place] [address], * Thinprep TIS PAP And HPV mRNA E6/E7, CT/NG, TRICH (04/08/2022 4:21 PM EST) Clinical Information: SCREENING, PELVIC PAIN [facility] LMP: NONE GIVEN [facility] Prev. PAP: NONE GIVEN [facility] Prev. BX: NONE GIVEN [facility] SOURCE: None given [facility] Statement Of Adequacy: [employer] [place] Comment: Satisfactory for evaluation. Endocervical/transformation zone component present. Age and/or menstrual status not provided Interpretation/Re sult: Negative for intraepithelial lesion or malignancy. [employer] [place] [employer] Comment: This Pap test has been evaluated with computer assisted technology. [employer] [place] Credit Card Control Clerk: [facility] [employer] [place] Comment: DMM, CT(ASCP) CT screening location: [address] [address] (Always Message) [facility] [employer] Comment: EXPLANATORY NOTE: The Pap is a [...] HPV nRNA E6/E7 Not Detected Not Detected [employer] [place] Comment: Methodology: Security Delivery Specialist-Mediated Amplification This assay detects E6/E7 viral messenger RNA (mRNA) from 14 high-risk HPV types (16,18,31,33,35,39,45,51,52,56,58,59,66,68). Cervical sources are required for HPV testing. If a vaginal source from a patient who has had a total hysterectomy with removal of cervix was submitted, please contact the testing laboratory for alternative testing options. For additional information, please refer to http://InToTally.[employer]/faq/FEV383w5 (This link if provided for information/ educational purposes only.) Chlamydia trachomatis RNA, TMA, Urogenital NOT DETECTED NOT DETECTED [employer] [place] Neisseria gonorrhoeae RNA, TMA, Urogenital NOT DETECTED NOT DETECTED [employer]2it Comment [employer] [place] Comment: The analytical performance characteristics of this assay, when used to test SurePath(TM) specimens have been determined by [employer]. The modifications have not been cleared or approved by the FDA. This assay has been validated pursuant to the CLIA regulations and is used for clinical purposes. For additional information, please refer to https://InToTally.[employer]/faq/UGE192 (This link is being provided for information/ educational purposes only.) Trichomonas vaginalis, QL, TMA, PAP Vial NOT DETECTED NOT DETECTED [employer] Comment: The analytical performance characteristics of this assay have been determined by [employer]. The modifications have not been cleared or approved by the FDA. This assay has been validated pursuant to the CLIA regulations and is used for clinical purposes. For additional information, please refer to http://education.[employer]/ faq/Trichomonastma (This link is being provided for information/ educational purposes only.) 04/08/2022 4:21 PM EST 04/09/2022 11:04 AM EST Narrative [facility] - 04/14/2022 10:42 AM EST FASTING: UNKNOWN Pola Maldonado CNM LAB PATHOLOGY ORDERABLES Final Result [facility] [address], [place] [address] [employer] [place] [employer] [address] [facility], ([address]) [place] [address] from Last 3 Months or Most Recently Relevant to Health Maintenance Insurance C3 [facility] MEDICAID STAND ADULT Care Teams Juvenile Justice Specialist Relationship Specialty Start Date End Date Mirta Jacobson CNP [address] [place] [address] [facility] [place] [place] [address] PCP - General Family Medicine 01/26/25
--- OUTSIDE RECORDS SUMMARY | 2025-03-15 18:07 | XMS_ITS | Encounter Summary ---
Author Organization [employer] Address [address] [facility] 7t [place] [address] Care Team Providers Care Content Development Manager Name Role Phone Jackie Abdi MD Primary Care Provider [phone] Mirta Jacobson CNP Primary Care Provider [phone] Craig Boo RN Unavailable [phone] Faisal Lugo Unavailable Reason for Visit * Reason Onset Date Comments Nurse Triage 08/03/2023 Encounter Details Date Type Department Care Team (Late st Contact Info) Description 08/03/2023 Telephone [facility] [address] [place] [address] Jackie Abdi MD [address] [place], [place] [phone] Nurse Triage Social History Tobacco Use Types [...] point. pt states is currently at the [facility] for evaluation. advised to complete the [...] 3:15 PM EST Office Visit [facility] [address] [place] [address] Rose Marie Shah CNM [address] [place] [address] 06/27/2025 2:00 PM EDT Office Visit [facility] OPTOMETRY [address] [place] [address] David, Na, OD [address] [place] [address] documented as of this encounter Visit Diagnoses Not on filedocumented in this encounter Additional Health Concerns Assessment Noted Time PHQ-9 Depression Total Score: 21 023 8:57 AM EDT documented as of this encounter Care Teams Content Development Manager Relationship Specialty Start Date End Date Jackie Abdi MD [address] [place] [address] PCP - General Family Medicine 04/29/13 01/25/25 Mirta Jacobson CNP [address] [place], [place] [phone] PCP - General Family Medicine 01/26/25 Craig Boo, E[place]LE [address] [place], [place] [phone] Registered Nurse Family Medicine 01/30/25 02/15/25 Faisal Lugo 01/30/25 02/15/25 documented as of this encounter
--- OUTSIDE RECORDS SUMMARY | 2025-03-15 18:07 | XMS_ITS | Encounter Summary ---
Author Organization [employer] Address 75 [facility] 7t [place] [address] Care Team Providers Care Medical Record Coder Name Role Phone Jackie Abdi MD Primary Care Provider [phone] Mirta Jacobson CNP Primary Care Provider [phone] Craig Boo RN Unavailable [phone] Faisal Lugo Unavailable Reason for Visit * Reason Onset Date Comments Results 04/30/2022 Encounter Details Date Type Department Care Team (Late st Contact Info) Description 04/30/2022 Telephone [facility] MEDICINE [address] [place] [address] Jackie Abdi MD [address] [place], [place] [phone] Results Social History Tobacco Use Types Packs/Day [...] regarding xray results Please contact pt at [phone] documented in this encounter Plan of Treatment Upcoming Encounters Date Type Department Care Team ([facility] st Contact Info) Description 03/16/2025 3:15 PM EST Office Visit [facility] MEDICINE [address] [place] [address] Rose Marie Shah CNM 230 [place] [address] 06/27/2025 2:00 PM EDT Office Visit [facility] OPTOMETRY [address] [place] [address] An Hernandez, OD 230 [place] [address] documented as of this encounter Visit Diagnoses Not on filedocumented in this encounter Care Teams Medical Record Coder Relationship Specialty Start Date End Date Jackie Abdi MD 230 [place] [address] PCP - General Family Medicine 04/29/13 01/25/25 Mirta Jacobson CNP 505 [place] [address] PCP - General Family Medicine 01/26/25 Craig Boo, EAGLE 505 [place] [address] Registered Nurse Family Medicine 01/30/25 02/15/25 Faisal Lugo 01/30/25 02/15/25 documented as of this encounter
== END 2025-03-15 14:15 | disposition home or self-care (01) ==
LOC: HO.HUSH 13:34
PROVIDERS: PCP Student in an Organized Health Care Education/Training Program; Visit Provider Nurse Practitioner Family
DX: R39.9 Unspecified symptoms and signs involving the genitourinary system (principal); N39.0 Urinary tract infection, site not specified; Z13.9 Encounter for screening, unspecified
CPT/HCPCS: 99213

== ENCOUNTER → 2025-03-15 13:33 | Outpatient (BNVA) | payer MEDICAID, SELFPAY | PROVIDERS: PCP Student in an Organized Health Care Education/Training Program; Visit Provider Nurse Practitioner Family | DX: N39.0 Urinary tract infection, site not specified (principal) | CPT/HCPCS: 51798; 81003; 99212 ==

== ENCOUNTER 2025-03-16 18:42 | Outpatient (REF) | payer MEDICAID, SELFPAY ==
--- OUTSIDE RECORDS SUMMARY | 2025-03-16 15:15 | XMS_ITS | Encounter Summary ---
Author Organization [employer] Address 75 [facility] 7t [place] [address] Care Team Providers Care Business Writer Name Role Phone Mirta Jacobson CNP Primary Care Provider [phone] Reason for Visit * Reason Comments CHW - Office Visit Encounter Details Date Type Department Care Team ([facility] st Contact Info) Description 03/16/2025 3:15 PM EST Office Visit [facility] MEDICINE [address] [place], [place] [phone] Rose Marie Shah CNM [address] [place] [address] Pelvic and perineal pain (Primary Dx); Female dyspareunia; Vaginal discharge; Atrophic vaginitis Social History Tobacco Use Types Packs/Day Years Used Date Smoking Tobacco: Never Passive Smoke Exposure: Never Smokeless Tobacco: Never Tobacco Cessation:Counseling Given: Not Answered Alcohol Use Standard Drinks/Week Comments Never 0 (1 standard drink = 0.6 oz pur e alcohol) Depression Answer Date Recorded Patient Health Questionnaire-9 Score 18 03/16/2025 Patient Health Questionnaire-9 Score 18 03/16/2025 Last PHQ-9: Questionnaire Data Not on file 1 05/17/2024 Housing Stability Answer Date Recorded What is [...] Answer Date Recorded Patient Health Questionnaire-2 Score 4 03/16/2025 Internet Access Answer Date Recorded Internet Access [...] Reading Time Taken Comments Blood Pressure 120/78 03/16/2025 3:25 PM EST Pulse 82 03/16/2025 3:25 PM EST Temperature 37.2 C (99 F) 03/16/2025 3:25 PM EST Respiratory Rate 16 03/16/2025 3:25 PM EST Oxygen Saturation 98% 03/16/2025 3:25 PM EST Inhaled Oxygen Concentration - - Weight 59.7 kg (131 lb 9.6 oz) 03/16/2025 3:25 P M EST Height - - Body Mass Index 26.58 01/17/2025 2:56 PM EDT documented in this encounter Functional Status * Over the past 2 weeks, how often have you been bothered by any of the following problems? Question Answer Date of Assessment Author Patient Health Questionnaire-2 Score 4 02/27 3:52 PM EST Gloria Prater MA * Little interest or pleasure in doing things Answer Date of Assessment Author More than half the days 03/16/2025 3:52 PM EST Gloria Prater MA * Feeling down, depressed, or hopeless Answer Date of Assessment Author More than half the days 03/16/2025 3:52 PM EST Gloria Hernández MA * Trouble falling or staying asleep, or sleeping too much Answer Date of Assessment Author Nearly every day 03/16/2025 3:52 PM Gloria Valles MA * Feeling tired or having little energy Answer Date of Assessment Author More than half the days 03/16/2025 3:52 PM Gloria Cano MA * Poor appetite or overeating Answer Date of Assessment Author Nearly every day 03/16/2025 3:52 PM Gloria Valles MA * Feeling bad about yourself - or that you are a failure or have let yourself or your family down Answer Date of Assessment Author More than half the days 03/16/2025 3:52 PM Gloria Cano MA * Trouble concentrating on things, such as reading the newspaper or watching television Answer Date of Assessment Author More than half the days 03/16/2025 3:52 PM Gloria Cano MA * Moving or speaking so slowly that other people could have noticed? Or the opposite - being so fidgety or restless that you have been moving around a lot more than usual. Answer Date of Assessment Author More than half the days 03/16/2025 3:52 PM Gloria Cano MA * Thoughts that you would be better off or hurting yourself in some way Answer Date of Assessment Author Not at all 03/16/2025 3:52 PM Gloria Valles MA * Patient Health Questionnaire-9 Score Answer Date of Assessment Author 18 03/16/2025 3:52 PM Gloria Valles MA * Over the last 2 weeks, how often have you been bothered by any of the following problems? Question Answer Date of Assessment Author Feeling nervous, anxious, or on edge 2 02/27 3:51 PM Gloria Valles MA Not being able to stop or co ntrol worrying 2 03/16/2025 3:51 PM Gloria Valles M A Worrying too much about diff erent things 2 03/16/2025 3:51 PM Gloria Valles M A Trouble relaxing 2 03/16/2025 3:51 PM Gloria Cano MA Being so restless that it is hard to sit still 1 03/16/2025 3:51 PM Gloria Valles M A Becoming easily annoyed or irritable 1 02/27 3:51 PM Gloria Valles MA Feeling afraid as if somethi ng awful might happen 1 03/16/2025 3:51 PM Gloria Valles M A STEVEN-7 Total Score 11 03/16/2025 3:51 PM Gloria Valles MA * How difficult have these problems made it for you to do your work, take care of things at home, or get along with other people? Answer Date of Assessment Author Somewhat difficult 03/16/2025 3:52 PM Gloria Keen MA documented as of this encounter Progress Notes * Rose Marie Shah, LOLIS - 03/16/2025 3:15 PM EST Subjective Patient ID: Sade Fraga is a 55 y.o. 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 Hasn't been able to have sex due to pain. Notes some discharge, no other urinary symptoms. Pap NIL/HPV neg 03/2022. On vaginal estrogen cream. Using a tiny amount most days, applying to introitus. Followed by urology for recurrent UTIs. Had negative UA yesterday, cystoscopy planned. No worrisome findings on pelvic ultrasound 03/2024. Pain preceded this. Mammogram BIRADS 1, cat b 05/2024 Abdominal Pain This is a recurrent problem. The current episode started more than 1 month ago. The onset quality is undetermined. The problem occurs constantly. The problem has been waxing and waning. The pain is located in the generalized abdominal region. The pain is at a severity of 5/10. The quality of the pain is aching and sharp. The abdominal pain radiates to the suprapubic region and perineum. Associated symptoms include anorexia, flatus, headaches and weight loss. Pertinent negatives include no constipation, diarrhea, nausea or vomiting. The pain is relieved by Nothing. Review of Systems Constitutional: Positive for weight loss. Gastrointestinal: Positive for abdominal pain, anorexia and flatus. Negative for constipation, diarrhea, nausea and vomiting. Genitourinary: Positive for dyspareunia, pelvic pain, vaginal discharge and vaginal pain. Negative for vaginal bleeding. Neurological: Positive for headaches. Objective BP 120/78 (BP Location: Left arm, Patient Position: Sitting, BP Cuff Size: Adult) Pulse 82 Temp99 ??F (37.2 ??C) (Oral) Resp 16 Wt 131 lb 9.6 oz (59.7 kg) SpO2 98% BMI 26.58 kg/m?? Physical Exam Constitutional: Appearance: Normal appearance. Abdominal: Tenderness: There is no abdominal tenderness. Genitourinary: General: Normal vulva. Labia: Right: No rash, tenderness, lesion or injury. Left: No rash, tenderness, lesion or injury. Comments: Atrophic changes Tenderness of vestibule at 9 oclock, some erythema Tenderness on right coccygeus, possibly piriformis No tenderness of adductors Neurological: Mental Status: She is alert. Psychiatric: Mood and Affect: Mood normal. Behavior: Behavior normal. Assessment/Plan Diagnoses and all orders for this visit: Pelvic and perineal pain With pelvic floor dysfunction. Able to do diaphragmatic breathing. Will start with improving vaginal estrogen. Offer breathing exercise/supported squat, maybe piriformis stretch at next visit. Consider dilator therapy. Female dyspareunia Atrophy is a significant component. Let's try Estring. Will prescribe and have her bring to appointment for insertion assistance as she found estrogen cream applicator painful. Also some pelvic floor dysfunction. Able to do diaphragmatic breathing. Will start with improving vaginal estrogen. Offer breathing exercise/supported squat, maybe piriformis stretch at next visit. Consider dilator therapy. Also consider non penetrative ways to be sexually intimate. Vaginal discharge - Bacterial Vaginosis Panel Will send bacterial vaginosis swab and treat positive results. Atrophic vaginitis Not responsive to estrogen cream. Trial Estring. Will bring to next appointment for insertion assistance Other orders - Estradiol (Estring) 7.5 MCG/24HR ring; Insert 1 each into the vagina See administration instructions. Bring to office for insertion. Replace every 90 days. documented in this encounter Plan of Treatment Upcoming Encounters Date Type Department Care Team (Late st Contact Info) Description 04/05/2025 3:30 PM EST Office Visit [address] [address] Alyssa Rose Marie, CNM [address] [place] [address] 06/27/2025 2:00 PM EDT Office Visit [facility] OPTOMETRY [address] [place], [place] [phone] David, An, OD 230 [place], [place] [phone] Scheduled Orders Name Type Priority Associated Diagnoses Orde r Schedule Bacterial Vaginosis Panel Microbiology Routine Vaginal discharge Ordered: 03/16/2025 documented as of this encounter Visit Diagnoses Diagnosis Pelvic and perineal pain- Primary Female dyspareunia Vaginal discharge Leukorrhea, not specified as infective Atrophic vaginitis Postmenopausal atrophic vaginitis documented in this encounter Additional Health Concerns Assessment Noted Time PHQ-9 Depression Total Score: 18 025 3:52 PM EST documented as of this encounter Care Teams Business Writer Relationship Specialty Start Date End Date Mirta Jacobson CNP [address] [place] [address] PCP - General Family Medicine 01/26/25 documented as of this encounter
--- OUTSIDE RECORDS SUMMARY | 2025-03-16 19:57 | XMS_ITS | Encounter Summary ---
Author Organization [employer] Address [address] [facility] [address] 7t [place] [address] Care Team Providers Care Paid Intern Name Role Phone Mirta Jacobson CNP Primary Care Provider [phone] Encounter Details Date Type Department Care Team [...] Description 04/05/2025 3:30 PM EST Office Visit [facility] MEDICINE [address] [place] [address] Rose Marie Shah CNM [address] [place] [address] 06/27/2025 2:00 PM EDT Office Visit [facility] OPTOMETRY [address] [place] [address] David, An, OD 230 [place] [address] documented as of this encounter Visit Diagnoses Not on filedocumented in this encounter Additional Health Concerns Assessment Noted Time PHQ-9 Depression Total Score: 14 025 11:23 AM EST documented as of this encounter Care Teams Paid Intern Relationship Specialty Start Date End Date Mirta Jacobson CNP 505 [place] [address] PCP - General Family Medicine 01/26/25 documented as of this encounter
--- OUTSIDE RECORDS SUMMARY | 2025-03-16 19:57 | XMS_ITS | Encounter Summary ---
Author Organization [employer] Address 75 [facility] 7t [place] [address] Care Team Providers Care Trade Show Specialist Name Role Phone Mirta Jacobson CNP Primary Care Provider [phone] Reason for Visit * Reason Onset Date Comments chart prep 03/15/2025 Encounter Details Date Type Department Care Team ([facility] st Contact Info) Description 03/15/2025 Telephone [facility] MEDICINE [address] [place], [place] [phone] Rose Marie Shah CNM [address] [place] [address] chart prep Social History Tobacco Use Types [...] Description 04/05/2025 3:30 PM EST Office Visit [facility] MEDICINE [address] [place] [address] Rose Marie Shah CNM [address] [place] [address] 06/27/2025 2:00 PM EDT Office Visit [facility] OPTOMETRY [address] [place] [address] An Hernandez, OD 230 [place] [address] documented as of this encounter Visit Diagnoses Not on filedocumented in this encounter Additional Health Concerns Assessment Noted Time PHQ-9 Depression Total Score: 14 025 11:23 AM EST documented as of this encounter Care Teams Trade Show Specialist Relationship Specialty Start Date End Date Mirta Jacobson CNP [address] [place] [address] [place] [address] PCP - General Family Medicine 01/26/25 documented as of this encounter
--- OUTSIDE RECORDS SUMMARY | 2025-03-16 19:57 | XMS_ITS | Encounter Summary ---
Author Organization [employer] Address [address] [facility] [address] 7t [place] [address] Care Team Providers Care Fermentation Engineer Name Role Phone Jackie Abdi MD Primary Care Provider [phone] Mirta Jacobson CNP Primary Care Provider [phone] Craig Boo RN Unavailable [phone] Faisal Lugo Unavailable Reason for Visit * Reason Onset Date Comments Appt materials 01/21/2023 Encounter Details Date Type Department Care Team (Late st Contact Info) Description 01/21/2023 Telephone [facility] CHC ADULT DENTAL [address] [place] [address] Sharon Fernandez DMD Appt materials Social History [...] Description 04/05/2025 3:30 PM EST Office Visit [facility] MEDICINE [address] [place] [address] Rose Marie Shah, CNM 230 [place] [address] 06/27/2025 2:00 PM EDT Office Visit [facility] OPTOMETRY [address] [place] [address] David, An, OD 230 [place] [address] documented as of this encounter Visit Diagnoses Not on filedocumented in this encounter Additional Health Concerns Assessment Noted Time PHQ-9 Depression Total Score: 21 023 8:57 AM EDT documented as of this encounter Care Teams Fermentation Engineer Relationship Specialty Start Date End Date Jackie Abdi MD [address] [place] [address] PCP - General Family Medicine 04/29/13 01/25/25 Mirta Jacobson CNP 505 [place] [address] PCP - General Family Medicine 01/26/25 Craig Boo RN 505 [place] [address] Registered Nurse Family Medicine 01/30/25 02/15/25 Faisal Lugo 01/30/25 02/15/25 documented as of this encounter
--- OUTSIDE RECORDS SUMMARY | 2025-03-16 19:57 | XMS_ITS | Encounter Summary ---
Author Organization [employer] Address 75 [facility] 7t [place] [address] Care Team Providers Care Electroplater Helper Name Role Phone Jackie Abdi MD Primary Care Provider [phone] Mirta Jacobson CNP Primary Care Provider [phone] Craig Boo RN Unavailable [phone] Faisal Lugo Unavailable Encounter Details Date Type Department Care Team (Late st Contact Info) Description 09/20/2024 Orders Only [facility] 230 [place] [address] Provider, MD Sagar Social History Tobacco Use [...] Description 04/05/2025 3:30 PM EST Office Visit [facility] MEDICINE [address] [place] [address] Rose Marie Shah, CNM 230 [place] [address] 06/27/2025 2:00 PM EDT Office Visit [facility] OPTOMETRY [address] [place] [address] David, An, OD [address] [place] [address] documented as of this encounter Procedures Procedure [...] documented as of this encounter Care Teams Electroplater Helper Relationship Specialty Start Date End Date Jackie Abdi MD 230 [place] [address] PCP - General Family Medicine 04/29/13 01/25/25 Mirta Jacobson CNP 505 [place] [address] PCP - General Family Medicine 01/26/25 Craig Boo, EAGLE [address] [place] [address] Registered Nurse Family Medicine 01/30/25 02/15/25 Faisal Lugo 01/30/25 02/15/25 documented as of this encounter
--- OUTSIDE RECORDS SUMMARY | 2025-03-16 19:57 | XMS_ITS | Encounter Summary ---
Author Organization [employer] Address [address] 7[address] [place] [address] Care Team Providers Care Spray Dyer Name Role Phone Mirta Jacobson CNP Primary Care Provider [phone] Encounter Details Date Type Department Care Team (Latest Contact Info) Description 03/16/2025 Travel Social History Tobacco Use Types Packs/Day [...] AM EDT documented as of this encounter Functional Status * Over the past 2 weeks, how often have you been bothered by any of the following problems? Question Answer Date of Assessment Author Patient Health Questionnaire-2 Score 4 02/27 3:52 PM Gloria Valles MA * Little interest or pleasure in doing things Answer Date of Assessment Author More than half the days 03/16/2025 3:52 PM EST Gloria Hernández MA * Feeling down, depressed, or hopeless [...] half the days 03/16/2025 3:52 PM EST S Gloria apodaca MA * Poor appetite or overeating Answer Date of Assessment Author Nearly every day 03/16/2025 3:52 PM Gloria Valles MA * Feeling bad about yourself - or that you are a failure or have let yourself or your family down Answer Date of Assessment Author More than half the days 03/16/2025 3:52 PM EST Gloria Hernández MA * Trouble concentrating on things, such as reading the newspaper or watching television Answer Date of Assessment Author More than half the days 03/16/2025 3:52 PM EST Gloria Hernández MA * Moving or speaking so slowly [...] Keen MA documented as of this encounter Plan of Treatment Upcoming Encounters Date Type Department Care Team (Late st Contact Info) Description 04/05/2025 3:30 PM EST Office Visit [facility] MEDICINE [address] [place] [address] Rose Marie Shah CNM [address] [place] [address] 06/27/2025 2:00 PM EDT Office Visit [facility] OPTOMETRY [address] [place], [place] [phone] DavidAn fernández, OD [address] [place] [address] documented as of this encounter Visit Diagnoses Not on filedocumented in this encounter Additional Health Concerns Assessment Noted Time PHQ-9 Depression Total Score: 18 025 3:52 PM EST documented as of this encounter Care Teams Spray Dyer Relationship Specialty Start Date End Date Mirta Jacobson CNP [address] [place] [address] PCP - General Family Medicine 01/26/25 documented as of this encounter
--- OUTSIDE RECORDS SUMMARY | 2025-03-16 19:57 | XMS_ITS | Encounter Summary ---
Author Organization [employer] Address 75 [facility] 7t [place] [address] Care Team Providers Care Agricultural Technician Name Role Phone Jackie Abdi MD Primary Care Provider [phone] Mirta Jacobson CNP Primary Care Provider [phone] Craig Boo RN Unavailable [phone] Faisal Lugo Unavailable Encounter Details Date Type Department Care Team (Late st Contact Info) Description 03/18/2022 Orders Only [facility] CHC MED & PEDS [address] [place], [place] [phone] Marielos Hooks LPN Social History Tobacco Use [...] Description 04/05/2025 3:30 PM EST Office Visit [facility] MEDICINE [address] [place], [place] [phone] Rose Marie Shah CNM [address] [place], [place] [phone] 06/27/2025 2:00 PM EDT Office Visit [facility] OPTOMETRY [address] [place], [place] [phone] An Hernandez OD 230 [place] [address] documented as of this encounter Visit Diagnoses Not on filedocumented in this encounter Care Teams Agricultural Technician Relationship Specialty Start Date End Date Jackie Abdi MD [address] [place] [address] PCP - General Family Medicine 04/29/13 01/25/25 Mirta Jacobson CNP 505 [place] [address] PCP - General Family Medicine 01/26/25 Craig Boo, EAGLE [address] [place] [address] Registered Nurse Family Medicine 01/30/25 02/15/25 Faisal Lugo 01/30/25 02/15/25 documented as of this encounter
--- OUTSIDE RECORDS SUMMARY | 2025-03-16 19:57 | XMS_ITS | Encounter Summary ---
Author Organization [employer] Address [address] [facility] [address] [place] [address] Care Team Providers Care Sweeper Brush Maker Machine Name Role Phone Jackie Abdi MD Primary Care Provider [phone] Mirta Jacobson CNP Primary Care Provider [phone] Craig Boo RN Unavailable [phone] Faisal Lugo Unavailable Reason for Visit * Reason Onset Date Comments Med Refill 02/26/2023 Encounter Details Date Type Department Care Team ([facility] st Contact Info) Description 02/26/2023 Refill [facility] CHC MED & PEDS [address] [place], [place] [phone] Jackie Abdi MD 505 [place], [place] [phone] Social History Tobacco Use Types Packs/Day Years [...] Description 04/05/2025 3:30 PM EST Office Visit [facility] MEDICINE [address] [place] [address] Rose Marie Shah CNM [address] [place] [address] 06/27/2025 2:00 PM EDT Office Visit [facility] OPTOMETRY [address] [place] [address] David, An, OD 230 [place] [address] documented as of this encounter Visit Diagnoses Not on filedocumented in this encounter Additional Health Concerns Assessment Noted Time PHQ-9 Depression Total Score: 21 023 8:57 AM EDT documented as of this encounter Care Teams Sweeper Brush Maker Machine Relationship Specialty Start Date End Date Jackie Abdi MD 230 [place] [address] PCP - General Family Medicine 04/29/13 01/25/25 Mirta Jacobson CNP 505 [place] [address] PCP - General Family Medicine 01/26/25 Craig Boo, EAGLE [address] [place] [address] Registered Nurse Family Medicine 01/30/25 02/15/25 Faisal Lugo 01/30/25 02/15/25 documented as of this encounter
--- OUTSIDE RECORDS SUMMARY | 2025-03-16 19:57 | XMS_ITS | Clinical Summary ---
Author Organization [facility] Facility Address [address] [place] [address] Care Team Providers Care Fountain Clerk Name Role Phone Jackie Abdi MD Primary Care Provider [phone] Allergies No known active allergies Medications omeprazole [...] Insurance Medicaid [place] Medicaid [place] Care Teams Fountain Clerk Relationship Specialty Start Date End Date Jackie Abdi MD [address] [place] [address] PCP - General 04/09/20
--- OUTSIDE RECORDS SUMMARY | 2025-03-16 19:57 | XMS_ITS | Encounter Summary ---
Author Organization [employer] Address [address] 7t [place] [address] Care Team Providers Care Bus Driver Supervisor Name Role Phone Jackie Abdi MD Primary Care Provider [phone] Mirta Jacobson CNP Primary Care Provider [phone] Craig Boo RN Unavailable [phone] Faisal Lugo Unavailable Encounter Details Date Type Department Care Team ([facility] st Contact Info) Description 09/26/2024 Orders Only [facility] CHC MED & PEDS [address] [place], [place] [phone] Provider, MD Sagar Social History Tobacco Use [...] Description 04/05/2025 3:30 PM EST Office Visit [facility] MEDICINE 230 [place] [address] Rose Marie Shah, CNM 230 [place] [address] 06/27/2025 2:00 PM EDT Office Visit [facility] OPTOMETRY [address] [place] [address] David, An, OD 230 [place] [address] documented as of this encounter Procedures Procedure [...] documented as of this encounter Care Teams Bus Driver Supervisor Relationship Specialty Start Date End Date Jackie Abdi MD [address] [place] [address] PCP - General Family Medicine 04/29/13 01/25/25 Mirta Jacobson CNP 505 [place] [address] PCP - General Family Medicine 01/26/25 Craig Boo, EAGLE 505 [place] [address] Registered Nurse Family Medicine 01/30/25 02/15/25 Faisal Lugo 01/30/25 02/15/25 documented as of this encounter
--- OUTSIDE RECORDS SUMMARY | 2025-03-16 19:57 | XMS_ITS | Encounter Summary ---
Author Organization [employer] Address [address] [facility] 7t [place] [address] Care Team Providers Care Compression Molding Machine Tender Name Role Phone Jackie Abdi MD Primary Care Provider [phone] Mirta Jacobson CNP Primary Care Provider [phone] Craig Boo RN Unavailable [phone] Faisal Lugo Unavailable Reason for Visit * Reason Onset Date Comments Med Refill 10/24/2022 Encounter Details Date Type Department Care Team (Late st Contact Info) Description 10/24/2022 Refill [facility] MEDICINE 230 [place] [address] Jackie Abdi MD 505 [place] [address] Social History Tobacco Use Types Packs/Day Years [...] Description 04/05/2025 3:30 PM EST Office Visit [facility] MEDICINE 230 [place] [address] Rose Marie Shah, LOLIS 230 [place] [address] 06/27/2025 2:00 PM EDT Office Visit [facility] OPTOMETRY [address] [place] [address] An Hernandez, OD 230 [place] [address] documented as of this encounter Visit Diagnoses Not on filedocumented in this encounter Additional Health Concerns Assessment Noted Time PHQ-9 Depression Total Score: 21 023 8:57 AM EDT documented as of this encounter Care Teams Compression Molding Machine Tender Relationship Specialty Start Date End Date Jackie Abdi MD 230 [place] [address] PCP - General Family Medicine 04/29/13 01/25/25 Mirta Jacobson CNP 505 [place] [address] PCP - General Family Medicine 01/26/25 Craig Boo, EAGLE 505 [place], [place] [phone] Registered Nurse Family Medicine 01/30/25 02/15/25 Faisal Lugo 01/30/25 02/15/25 documented as of this encounter
--- OUTSIDE RECORDS SUMMARY | 2025-03-16 19:58 | XMS_ITS | Encounter Summary ---
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 09/09/2023 Encounter Details Date Type Department Care Team (Late st Contact Info) Description 09/09/2023 Telephone [facility] CHC ADULT DENTAL [address] [place] [address] Sharon Fernandez DMD staff nurse midwife Social History Tobacco Use Types Packs/Day Years [...] Patient called in stating hat she contacted [facility] to see where she can go [...] Description 04/05/2025 3:30 PM EST Office Visit [facility] MEDICINE 230 [place] [address] Rose Marie Shah CNM 230 [place] [address] 06/27/2025 2:00 PM EDT Office Visit [facility] OPTOMETRY [address] [place] [address] An Hernandez, AMANDA 230 [place] [address] documented as of this encounter Visit Diagnoses Not on filedocumented in this encounter Additional Health Concerns Assessment Noted Time PHQ-9 Depression Total Score: 21 023 8:57 AM EDT documented as of this encounter Care Teams Community Action Worker Relationship Specialty Start Date End Date Jackie Abdi MD 230 [place] [address] PCP - General Family Medicine 04/29/13 01/25/25 Mirta Jacobson CNP 505 [place] [address] PCP - General Family Medicine 01/26/25 Craig Boo, EAGLE 505 [place] [address] Registered Nurse Family Medicine 01/30/25 02/15/25 Faisal Lugo 01/30/25 02/15/25 documented as of this encounter
--- OUTSIDE RECORDS SUMMARY | 2025-03-16 19:58 | XMS_ITS | Encounter Summary ---
Author Organization [employer] Address [address] [facility] 7t [place] [address] Care Team Providers Care Corrective Therapist Name Role Phone Jackie Abdi MD Primary Care Provider [phone] Mirta Jacobson CNP Primary Care Provider [phone] Craig Boo RN Unavailable [phone] Faisal Lugo Unavailable Reason for Visit * Reason Onset Date Comments call back 06/03/2022 Encounter Details Date Type Department Care Team (Late st Contact Info) Description 06/03/2022 Telephone [facility] MEDICINE 230 [place] [address] Jackie Abdi MD [address] [place], [place] [phone] call back Social History Tobacco Use Types [...] a call back. Please contact pt at [phone] documented in this encounter Plan of Treatment Upcoming Encounters Date Type Department Care Team (Late st Contact Info) Description 04/05/2025 3:30 PM EST Office Visit [facility] MEDICINE [address] [place] [address] Rose Marie Shah, CNM 230 [place] [address] 06/27/2025 2:00 PM EDT Office Visit [facility] OPTOMETRY [address] [place] [address] An Hernandez, OD 230 [place] [address] documented as of this encounter Visit Diagnoses Not on filedocumented in this encounter Care Teams Corrective Therapist Relationship Specialty Start Date End Date Jackie Abdi MD 230 [place] [address] PCP - General Family Medicine 04/29/13 01/25/25 Mirta Jacobson CNP 505 [place] [address] PCP - General Family Medicine 01/26/25 Craig Boo, EAGLE 505 [place] [address] Registered Nurse Family Medicine 01/30/25 02/15/25 Faisal Lugo 01/30/25 02/15/25 documented as of this encounter
--- OUTSIDE RECORDS SUMMARY | 2025-03-16 19:58 | XMS_ITS | Encounter Summary ---
Author Organization [employer] Address [address] [facility] 7t [place] [address] Care Team Providers Care Billet Driller Name Role Phone Jackie Abdi MD Primary Care Provider [phone] Mirta Jacobson CNP Primary Care Provider [phone] Craig Boo RN Unavailable [phone] Faisal Lugo Unavailable Reason for Visit * Reason Onset Date Comments Med Refill 12/05/2022 Encounter Details Date Type Department Care Team (Late Contact Info) Description 12/05/2022 Refill [facility] CHC MED & PEDS 505 [place], [place] [phone] Abby Duran MD Social History Tobacco Use [...] Upcoming Encounters Date Type Department Care Team ([facility] Contact Info) Description 04/05/2025 3:30 PM EST Office Visit [facility] MEDICINE [address] [place] [address] Rose Marie Shah, CNCarlos 230 [place], [place] [phone] 06/27/2025 2:00 PM EDT Office Visit [facility] OPTOMETRY [address] [place] [address] An Hernandez, OD 230 [place] [address] documented as of this encounter Visit Diagnoses Not on filedocumented in this encounter Additional Health Concerns Assessment Noted Time PHQ-9 Depression Total Score: 023 8:57 AM EDT documented as of this encounter Care Teams Billet Driller Relationship Specialty Start Date End Date Jackie Abdi MD 230 [place], [place] [phone] PCP - General Family Medicine 04/29/13 01/25/25 Mirta Jacobson CNP 505 [place] [address] PCP - General Family Medicine 01/26/25 Craig Boo, EAGLE 505 [place], [place] [phone] Registered Nurse Family Medicine 01/30/25 02/15/25 Faisal Lugo 01/30/25 02/15/25 documented as of this encounter
--- OUTSIDE RECORDS SUMMARY | 2025-03-16 19:58 | XMS_ITS | Encounter Summary ---
Author Organization [employer] Address [address] [facility] 7t [place] [address] Care Team Providers Care Oncology Physician Assistant Name Role Phone Jackie Abdi MD Primary Care Provider [phone] Mirta Jacobson CNP Primary Care Provider [phone] Craig Boo RN Unavailable [phone] Faisal Lugo Unavailable Encounter Details Date Type Department Care Team (Latest Contact Info) Description 01/20/2025 Results Follow-Up [facility] MED & PEDS [address] [place] [address] Yudith Godinez RN Comprehensive Metabolic Panel, TSH [...] Description 04/05/2025 3:30 PM EST Office Visit [facility] MEDICINE 230 [place] [address] Rose Marie Shah, LOLIS 230 [place] [address] 06/27/2025 2:00 PM EDT Office Visit [facility] OPTOMETRY [address] [place] [address] David, An, OD 230 [place] [address] documented as of this encounter Visit Diagnoses Not on filedocumented in this encounter Additional Health Concerns Assessment Noted Time PHQ-9 Depression Total Score: 14 025 11:23 AM EST documented as of this encounter Care Teams Oncology Physician Assistant Relationship Specialty Start Date End Date Jackie Abdi MD 230 [place] [address] PCP - General Family Medicine 04/29/13 01/25/25 Mirta Jacobson CNP 505 [place] [address] PCP - General Family Medicine 01/26/25 Craig Boo, EAGLE 505 [place] [address] Registered Nurse Family Medicine 01/30/25 02/15/25 Faisal Lugo 01/30/25 02/15/25 documented as of this encounter
--- OUTSIDE RECORDS SUMMARY | 2025-03-16 19:58 | XMS_ITS | Encounter Summary ---
Author Organization [employer] Address [address] [facility] 7t [place] [address] Care Team Providers Care Mixer Operator Name Role Phone Jackie Abdi MD Primary Care Provider [phone] Mirta Jacobson CNP Primary Care Provider [phone] Craig Boo RN Unavailable [phone] Faisal Lugo Unavailable Encounter Details Date Type Department Care Team (Late Contact Info) Description 10/01/2022 Abstract [facility] MEDICINE 230 [place], [place] [phone] Jackie Abdi MD 505 [place], [place] [phone] Social History Tobacco Use Types Packs/Day Years [...] Department Care Team (Late Contact Info) Description 04/05/2025 3:30 PM EST Office Visit [facility] MEDICINE 230 [place], [place] [phone] Rose Marie Shah, CNM 230 [place] [address] 06/27/2025 2:00 PM EDT Office Visit [facility] OPTOMETRY [address] [place] [address] DavidDeshawn fernándezn, OD 230 [place] [address] documented as of this encounter Visit Diagnoses Not on filedocumented in this encounter Additional Health Concerns Assessment Noted Time PHQ-9 Depression Total Score: 21 023 8:57 AM EDT documented as of this encounter Care Teams Mixer Operator Relationship Specialty Start Date End Date Jackie Abdi MD 230 [place] [address] PCP - General Family Medicine 04/29/13 01/25/25 Mirta Jacobson CNP 505 [place], [place] [phone] PCP - General Family Medicine 01/26/25 Craig Boo, EAGLE 505 [place] [address] Registered Nurse Family Medicine 01/30/25 02/15/25 Faisal Lugo 01/30/25 02/15/25 documented as of this encounter
--- OUTSIDE RECORDS SUMMARY | 2025-03-16 19:58 | XMS_ITS | Encounter Summary ---
Author Organization [employer] Address [address] 7t [place] [address] Care Team Providers Care Deboning Team Leader Name Role Phone Jackie Abdi MD Primary Care Provider [phone] Mirta Jacobson CNP Primary Care Provider [phone] Craig Boo RN Unavailable [phone] Faisal Lugo Unavailable Reason for Visit * Reason Comments Med Refill Encounter Details Date Type Department Care Team (Late st Contact Info) Description 11/13/2023 Refill [facility] MEDICINE 230 [place] [address] Jackie Abdi MD [address] [place], [place] [phone] Social History Tobacco Use Types Packs/Day Years [...] Description 04/05/2025 3:30 PM EST Office Visit [facility] MEDICINE [address] [place] [address] Rose Marie Shah CNM 230 [place] [address] 06/27/2025 2:00 PM EDT Office Visit [facility] OPTOMETRY [address] [place] [address] An Hernandez, OD 230 [place] [address] documented as of this encounter Visit Diagnoses Not on filedocumented in this encounter Additional Health Concerns Assessment Noted Time PHQ-9 Depression Total Score: 21 023 8:57 AM EDT documented as of this encounter Care Teams Deboning Team Leader Relationship Specialty Start Date End Date Jackie Abdi MD 230 [place] [address] PCP - General Family Medicine 04/29/13 01/25/25 Mirta Jacobson CNP 505 [place] [address] PCP - General Family Medicine 01/26/25 Craig Boo, RN [address] [place] [address] [place] [address] Registered Nurse Family Medicine 01/30/25 02/15/25 Faisal Lugo 01/30/25 02/15/25 documented as of this encounter
--- OUTSIDE RECORDS SUMMARY | 2025-03-16 19:58 | XMS_ITS | Encounter Summary ---
Author Organization [employer] Address [address] 7t [place] [address] Care Team Providers Care Regulatory Product Manager Name Role Phone Jackie Abdi MD Primary Care Provider [phone] Mirta Jacobson CNP Primary Care Provider [phone] Craig Boo RN Unavailable [phone] Faisal Lugo Unavailable Reason for Visit * Reason Onset Date Comments Nurse Triage 08/03/2023 Encounter Details Date Type Department Care Team (Late st Contact Info) Description 08/03/2023 Telephone [facility] MEDICINE 230 [place] [address] Jackie Abdi MD [address] [place], [place] [phone] Nurse Triage Social History Tobacco Use Types [...] point. pt states is currently at [facility] ER for evaluation. advised to complete the [...] Description 04/05/2025 3:30 PM EST Office Visit [facility] MEDICINE 230 [place] [address] Rose Marie Shah CNM 230 [place] [address] 06/27/2025 2:00 PM EDT Office Visit [facility] OPTOMETRY [address] [place] [address] Dvaid, An, OD 230 [place] [address] documented as of this encounter Visit Diagnoses Not on filedocumented in this encounter Additional Health Concerns Assessment Noted Time PHQ-9 Depression Total Score: 21 023 8:57 AM EDT documented as of this encounter Care Teams Regulatory Product Manager Relationship Specialty Start Date End Date Jackie Abdi MD 230 [place] [address] PCP - General Family Medicine 04/29/13 01/25/25 Mirta Jacobson CNP 505 [place], [place] [phone] PCP - General Family Medicine 01/26/25 Craig Boo, EAGLE 505 [place], [place] [phone] Registered Nurse Family Medicine 01/30/25 02/15/25 Faisal Lugo 01/30/25 02/15/25 documented as of this encounter
--- OUTSIDE RECORDS SUMMARY | 2025-03-16 19:58 | XMS_ITS | Encounter Summary ---
Author Organization [employer] Address [address] [facility] 7t [place] [address] Care Team Providers Care Smearer Name Role Phone Jackie Abdi MD Primary Care Provider [phone] Mirta aJcobson CNP Primary Care Provider [phone] Craig Boo RN Unavailable [phone] Faisal Lugo Unavailable Encounter Details Date Type Department Care Team ([facility] st Contact Info) Description 12/08/2022 Telephone [facility] CHC MED & PEDS 505 [place], [place] [phone] Jackie Abdi MD 505 [place], [place] [phone] Social History Tobacco Use Types Packs/Day Years [...] Description 04/05/2025 3:30 PM EST Office Visit [facility] MEDICINE 230 [place] [address] Rose Marie Shah CNM [address] [place] [address] 06/27/2025 2:00 PM EDT Office Visit [facility] OPTOMETRY [address] [place] [address] An Hernandez, OD 230 [place] [address] documented as of this encounter Visit Diagnoses Not on filedocumented in this encounter Additional Health Concerns Assessment Noted Time PHQ-9 Depression Total Score: 21 023 8:57 AM EDT documented as of this encounter Care Teams Smearer Relationship Specialty Start Date End Date Jackie Abdi MD 230 [place] [address] PCP - General Family Medicine 04/29/13 01/25/25 Mirta Jacobson CNP 505 [place] [address] PCP - General Family Medicine 01/26/25 Craig Boo, EAGLE 505 [place] [address] Registered Nurse Family Medicine 01/30/25 02/15/25 Faisal Lugo 01/30/25 02/15/25 documented as of this encounter
--- OUTSIDE RECORDS SUMMARY | 2025-03-16 19:58 | XMS_ITS | Encounter Summary ---
Author Organization [employer] Address [address] 7t [place] [address] Care Team Providers Care Valve And Regulator Repairer Name Role Phone Jackie Abdi MD Primary Care Provider [phone] Mirta Jacobson CNP Primary Care Provider [phone] Craig Boo RN Unavailable [phone] Faisal Lugo Unavailable Encounter Details Date Type Department Care Team (Late st Contact Info) Description 12/07/2023 Orders Only [facility] 230 [place], [place] [phone] Hiren Garcia MD 230 [place], [place] [phone] Social History Tobacco Use Types Packs/Day Years [...] Description 04/05/2025 3:30 PM EST Office Visit [facility] MEDICINE 230 [place] [address] Rose Marie Shah, LOLIS 230 [place] [address] 06/27/2025 2:00 PM EDT Office Visit [facility] OPTOMETRY [address] [place], [place] [phone] An Hernandez, OD 230 [place] [address] documented as of this encounter Procedures Procedure Name Priority Date/Time Associated Diagnosis Comments STRESS TEST WITH MYOCARDIAL PERFUSION Routine 01/01/2024 9:09 AM EDT documented in this encounter Results * Stress test with myocardial perfusion (01/01/2024 9:09 AM EDT) 01/01/2024 9:09 AM EDT Narrative [facility] - 01/04/2024 4:19 PM EDT [address] [address] Nuclear Medicine Report Signed Patient: Sade Fraga MR#: [id number] 4 : 1970 Acct:[id number] Age/Sex: 53 / F ADM Date: 01/01/24 Loc: .CARD Attending Dr: Abdelrahman Ricketts MD Ordering Physician: Abdelrahman Ricketts MD Date of Service: 01/01/24 Procedure(s): NM cardiolite stress test Accession Number(s): [id number] cc: Jackie Abdi MD; Abdelrahman Ricketts MD [...] 01/04/24 1616 DD/ 0909 TD/TT: 01/04/24 1200 Senior Architect: Procedure Note Donotuseinterpreter, Image - 10/07/[address] [address] Nuclear Medicine Report Signed Patient: Gray Fraga#: [id number] 4 : 1970Acct:[id number] Age/Sex: 53 / FADM Date: 01/01/24 Loc: .[facility] Attending Dr: Abdelrahman Ricketts MD Ordering Physician: Abdelrahman Ricketts MD Date of Service: 01/01/24 Procedure(s): NM cardiolite stress test Accession Number(s): [id number] cc: Jackie Abdi MD; Abdelrahman Ricketts MD [...] 01/04/24 1616 DD/ 0909 TD/TT: 01/04/24 1200 Senior Architect: us [facility] External Provider CV STRE SS PROCEDURES Final Result [facility] [address] [place] [address] documented in this encounter Visit Diagnoses Not on filedocumented in this encounter Additional Health Concerns Assessment Noted Time PHQ-9 Depression Total Score: 21 023 8:57 AM EDT documented as of this encounter Care Teams Valve And Regulator Repairer Relationship Specialty Start Date End Date Jackie Abdi MD 230 [place] [address] PCP - General Family Medicine 04/29/13 01/25/25 Mirta Jacobson CNP 505 [place] [address] PCP - General Family Medicine 01/26/25 Craig Boo, EAGLE 505 [place] [address] Registered Nurse Family Medicine 01/30/25 02/15/25 Faisal Lugo 01/30/25 02/15/25 documented as of this encounter
--- OUTSIDE RECORDS SUMMARY | 2025-03-16 19:58 | XMS_ITS | Encounter Summary ---
Author Organization [employer] Address [address] [facility] [facility] [address]t [place] [address] Care Team Providers Care Audio Engineer Name Role Phone Jackie Abdi MD Primary Care Provider [phone] Mirta Jacobson CNP Primary Care Provider [phone] Craig Boo RN Unavailable [phone] Faisal Lugo Unavailable Reason for Visit * Reason Comments Med Refill Encounter Details Date Type Department Care Team (Late st Contact Info) Description 06/08/2023 Refill [facility] MEDICINE 230 [place] [address] Jackie Abdi MD [address] [place], [place] [phone] Depressed mood Social History Tobacco Use Types [...] 3:30 PM EST Office Visit [facility] MEDICINE [address] [place] [address] Rose Marie Shah CNM [address] [place] [address] 06/27/2025 2:00 PM EDT Office Visit [facility] OPTOMETRY [address] [place] [address] An Hernandez, OD 230 [place] [address] documented as of this encounter Visit Diagnoses Diagnosis Depressed mood documented in this encounter Additional Health Concerns Assessment Noted Time PHQ-9 Depression Total Score: 21 023 8:57 AM EDT documented as of this encounter Care Teams Audio Engineer Relationship Specialty Start Date End Date Jackie Abdi MD 230 [place] [address] PCP - General Family Medicine 04/29/13 01/25/25 Mirta Jacobson CNP 505 [place] [address] PCP - General Family Medicine 01/26/25 Craig Boo, RN [address] [place] [address] [place] [address] Registered Nurse Family Medicine 01/30/25 02/15/25 Faisal Lugo 01/30/25 02/15/25 documented as of this encounter
--- OUTSIDE RECORDS SUMMARY | 2025-03-16 19:58 | XMS_ITS | Encounter Summary ---
Author Organization [employer] Address [address] [facility] 7t [place] [address] Care Team Providers Care Slot Operations Manager Name Role Phone Jackie Abdi MD Primary Care Provider [phone] Mirta Jacobson CNP Primary Care Provider [phone] Craig Boo RN Unavailable [phone] Faisal Lugo Unavailable Encounter Details Date Type Department Care Team ([facility] st Contact Info) Description 03/11/2023 Abstract [facility] 230 [place] [address] Jackie Abdi MD [address] [place], [place] [phone] Social History Tobacco Use Types Packs/Day Years [...] Description 04/05/2025 3:30 PM EST Office Visit [facility] MEDICINE 230 [place] [address] Rose Marie Shah CNM [address] [place] [address] 06/27/2025 2:00 PM EDT Office Visit [facility] OPTOMETRY [address] [place] [address] An Hernandez, OD 230 [place] [address] documented as of this encounter Visit Diagnoses Not on filedocumented in this encounter Additional Health Concerns Assessment Noted Time PHQ-9 Depression Total Score: 21 023 8:57 AM EDT documented as of this encounter Care Teams Slot Operations Manager Relationship Specialty Start Date End Date Jackie Abdi MD 230 [place] [address] PCP - General Family Medicine 04/29/13 01/25/25 Mirta Jacobson CNP 505 [place] [address] PCP - General Family Medicine 01/26/25 Craig Boo, RN [address] [place] [address] [place] [address] Registered Nurse Family Medicine 01/30/25 02/15/25 Faisal Lugo 01/30/25 02/15/25 documented as of this encounter
--- OUTSIDE RECORDS SUMMARY | 2025-03-16 19:58 | XMS_ITS | Encounter Summary ---
Author Organization [employer] Address [address] [facility] [address] 7t [place] [address] Care Team Providers Care Asphalt Paving Supervisor Name Role Phone Jackie Abdi MD Primary Care Provider [phone] Mirta Jacobson CNP Primary Care Provider [phone] Craig Boo RN Unavailable [phone] Faisal Lugo Unavailable Reason for Visit * Reason Onset Date Comments Med Refill 11/13/2023 Encounter Details Date Type Department Care Team (Late st Contact Info) Description 11/13/2023 Refill [facility] MEDICINE [address] [place] [address] Jackie Abdi MD [address] [place], [place] [phone] Social History Tobacco Use Types Packs/Day Years [...] Visit [facility] MED[facility]INE [address] [place] [address] Rose Marie Shah, LOLIS [address] [place] [address] 06/27/2025 2:00 PM EDT Office Visit [facility] OPTOMETRY [address] [place] [address] David, An, OD 230 [place] [address] documented as of this encounter Visit Diagnoses Not on filedocumented in this encounter Additional Health Concerns Assessment Noted Time PHQ-9 Depression Total Score: 21 023 8:57 AM EDT documented as of this encounter Care Teams Asphalt Paving Supervisor Relationship Specialty Start Date End Date Jackie Abdi MD 230 [place] [address] PCP - General Family Medicine 04/29/13 01/25/25 Mirta Jacobson CNP 505 [place] [address] PCP - General Family Medicine 01/26/25 Craig Boo, EAGLE [address] [place] [address] Registered Nurse Family Medicine 01/30/25 02/15/25 Faisal Lugo 01/30/25 02/15/25 documented as of this encounter
--- OUTSIDE RECORDS SUMMARY | 2025-03-16 19:58 | XMS_ITS | Encounter Summary ---
Author Organization [employer] Address [address] [facility] 7t [place] [address] Care Team Providers Care Credit Assessment Analyst Name Role Phone Jackie Abdi MD Primary Care Provider Mirta Jacobson CNP Primary Care Provider [phone] Craig Boo RN Unavailable [phone] Faisal Lugo Unavailable Reason for Visit * Reason Comments Med Refill Encounter Details Date Type Department Care Team ([facility] st Contact Info) Description 10/23/2023 Refill [facility] CHC MED & PEDS 505 [place], [place] [phone] Jackie Abdi MD 505 [place], [place] [phone] Social History Tobacco Use Types Packs/Day Years [...] Description 04/05/2025 3:30 PM EST Office Visit [facility] MEDICINE 230 [place] [address] Rose Marie Shah, LOLIS 230 [place] [address] 06/27/2025 2:00 PM EDT Office Visit [facility] OPTOMETRY [address] [place] [address] An Hernandez, OD 230 [place] [address] documented as of this encounter Visit Diagnoses Not on filedocumented in this encounter Additional Health Concerns Assessment Noted Time PHQ-9 Depression Total Score: 21 023 8:57 AM EDT documented as of this encounter Care Teams Credit Assessment Analyst Relationship Specialty Start Date End Date Jackie Abdi MD 230 [place] [address] PCP - General Family Medicine 04/29/13 01/25/25 Mirta Jacobson CNP 505 [place] [address] PCP - General Family Medicine 01/26/25 Craig Boo, EAGLE [address] [place] [address] [place] [address] Registered Nurse Family Medicine 01/30/25 02/15/25 Faisal Lugo 01/30/25 02/15/25 documented as of this encounter
--- OUTSIDE RECORDS SUMMARY | 2025-03-16 19:58 | XMS_ITS | Encounter Summary ---
Author Organization [employer] Address [address] [facility] 7t [place] [address] Care Team Providers Care Residential Leasing Agent Name Role Phone Jackie Abdi MD Primary Care Provider Mirta Jacobson CNP Primary Care Provider [phone] Craig Boo RN Unavailable [phone] Faisal Lugo Unavailable Encounter Details Date Type Department Care Team ([facility] Contact Info) Description 06/03/2022 Orders Only [facility] CHC MED & PEDS 505 [place], [place] [phone] Kaylin Kaur MD 505 [place], [place] [phone] Mid-back pain, acute (Primary Dx) Social History [...] Description 04/05/2025 3:30 PM EST Office Visit [facility] MEDICINE 230 [place] [address] Rose Marie Shah CNM 230 [place] [address] 06/27/2025 2:00 PM EDT Office Visit [facility] OPTOMETRY [address] [place], [place] [phone] An Hernandez, OD 230 [place] [address] documented as of this encounter Visit Diagnoses Diagnosis Mid-back pain, acute- Primary documented in this encounter Care Teams Residential Leasing Agent Relationship Specialty Start Date End Date Jackie Abdi MD 230 [place] [address] PCP - General Family Medicine 04/29/13 01/25/25 Mirta Jacobson CNP 505 [place] [address] PCP - General Family Medicine 01/26/25 Craig Boo, EAGLE 505 [place] [address] Registered Nurse Family Medicine 01/30/25 02/15/25 Faisal Lugo 01/30/25 02/15/25 documented as of this encounter
--- OUTSIDE RECORDS SUMMARY | 2025-03-16 19:58 | XMS_ITS | Encounter Summary ---
Author Organization [employer] Address [address] [facility] 7t [place] [address] Care Team Providers Care Square Shear Operator Name Role Phone Jackie Abdi MD Primary Care Provider [phone] Mirta Jacobson CNP Primary Care Provider [phone] Craig Boo RN Unavailable [phone] Faisal Lugo Unavailable Encounter Details Date Type Department Care Team ([facility] st Contact Info) Description 08/28/2022 Orders Only [facility] CHC MED & PEDS 505 [place], [place] [phone] Ronnell Sanderson MD 505 [place], [place] [phone] Social History Tobacco Use Types Packs/Day Years [...] 3:30 PM EST Office Visit [facility] MEDICINE 230 [place] [address] Rose Marie Shah, CNM 230 [place] [address] 06/27/2025 2:00 PM EDT Office Visit [facility] OPTOMETRY [address] [place] [address] David, An, OD 230 [place] [address] documented as of this encounter Visit Diagnoses Not on filedocumented in this encounter Additional Health Concerns Assessment Noted Time PHQ-9 Depression Total Score: 21 023 8:57 AM EDT documented as of this encounter Care Teams Square Shear Operator Relationship Specialty Start Date End Date Jackie Abdi MD 230 [place] [address] PCP - General Family Medicine 04/29/13 01/25/25 Mirta Jacobson CNP 505 [place] [address] PCP - General Family Medicine 01/26/25 Craig Boo, EAGLE 505 [place] [address] Registered Nurse Family Medicine 01/30/25 02/15/25 Faisal Lugo 01/30/25 02/15/25 documented as of this encounter
--- OUTSIDE RECORDS SUMMARY | 2025-03-16 19:58 | XMS_ITS | Encounter Summary ---
Author Organization [employer] Address [address] [facility] 7t [place] [address] Care Team Providers Care Grain Operator Name Role Phone Jackie Abdi MD Primary Care Provider [phone] Mirta Jacobson CNP Primary Care Provider [phone] Craig Boo RN Unavailable [phone] Faisal Lugo Unavailable Reason for Visit * Reason Comments Med Refill Encounter Details Date Type Department Care Team (Late st Contact Info) Description 09/16/2023 Refill [facility] CHC MED & PEDS 505 [place], [place] [phone] Jackie Abdi MD 505 [place], [place] [phone] Acute pain of right shoulder Social History [...] Description 04/05/2025 3:30 PM EST Office Visit [facility] MEDICINE 230 [place] [address] Rose Marie Shah CNM 230 [place] [address] 06/27/2025 2:00 PM EDT Office Visit [facility] OPTOMETRY [address] [place] [address] David, An, OD 230 [place] [address] documented as of this encounter Visit Diagnoses Diagnosis Acute pain of right shoulder documented in this encounter Additional Health Concerns Assessment Noted Time PHQ-9 Depression Total Score: 21 023 8:57 AM EDT documented as of this encounter Care Teams Grain Operator Relationship Specialty Start Date End Date Jackie Abdi MD 230 [place] [address] PCP - General Family Medicine 04/29/13 01/25/25 Mirta Jacobson CNP 505 [place] [address] PCP - General Family Medicine 01/26/25 Craig Boo, EAGLE [address] [place] [address] Registered Nurse Family Medicine 01/30/25 02/15/25 Faisal Lugo 01/30/25 02/15/25 documented as of this encounter
--- OUTSIDE RECORDS SUMMARY | 2025-03-16 19:58 | XMS_ITS | Encounter Summary ---
Author Organization [employer] Address [address] [facility] 7t [place] [address] Care Team Providers Care Warehouse Shipping Associate Name Role Phone Jackie Abdi MD Primary Care Provider Mirta Jacobson CNP Primary Care Provider [phone] Craig Boo RN Unavailable [phone] Faisal Lugo Unavailable Reason for Visit * Reason Onset Date Comments Med Refill 12/08/2022 Encounter Details Date Type Department Care Team (Late st Contact Info) Description 12/08/2022 Refill [facility] CHC MED & PEDS 505 [place], [place] [phone] Jackie Abdi MD 505 [place] [address] Social History Tobacco Use Types Packs/Day Years [...] Description 04/05/2025 3:30 PM EST Office Visit [facility] MEDICINE 230 [place] [address] Rose Marie Shah, LOLIS 230 [place] [address] 06/27/2025 2:00 PM EDT Office Visit [facility] OPTOMETRY [address] [place] [address] An Hernandez, OD 230 [place] [address] documented as of this encounter Visit Diagnoses Not on filedocumented in this encounter Additional Health Concerns Assessment Noted Time PHQ-9 Depression Total Score: 21 023 8:57 AM EDT documented as of this encounter Care Teams Warehouse Shipping Associate Relationship Specialty Start Date End Date Jackie Abdi MD 230 [place] [address] PCP - General Family Medicine 04/29/13 01/25/25 Mirta Jacobson CNP 505 [place], [place] [phone] PCP - General Family Medicine 01/26/25 Craig Boo, EAGLE 505 [place], [place] [phone] Registered Nurse Family Medicine 01/30/25 02/15/25 Faisal Lugo 01/30/25 02/15/25 documented as of this encounter
--- OUTSIDE RECORDS SUMMARY | 2025-03-16 19:58 | XMS_ITS | Clinical Summary ---
Author Organization [facility] Address 175 [place] [address] Phone Care Team Providers Care Decker Operator Name Role Phone Jackie Abdi MD Primary Care Provider [phone] Allergies Active Allergy Reactions Criticality Noted Date [...] AM EST Lab Draw Station - [address] [facility] [address] [facility] [address] [place] [address] Migraine with aura and without status migrainosus, not intractable 03/01/2025 9:00 AM EST Telemedicine [facility] - Tow [address] [facility] [address] [place] [address] Jeanie Kapadia MD Migraine with aura and without status migrainosus, not intractable (Primary Dx); Obstructive sleep apnea; Overweight (BMI 25.0-29.9) 02/07/2025 1:45 PM EST Office Visit Bariatric Surgery - Tow [address] [facility] [address] [place] [address] Aleksandar Heaton MD Sleep deficient [...] Date Site/Laterality Comments OTHER SURGICAL HISTORY PROCEDURE: [place] ARTHRS AID TIBIAL FRACTURE PROXIMAL UNICONDYLAR CHOLECYSTECTOMY PROCEDURE: [place] LAPAROSCOPY SURG CHOLECYSTECTOMY BUNIONECTOMY PROCEDURE: BUNION SURGERY, SIMPLE REMOVAL SECTION PROCEDURE: [place] DELIVERY ONLY Medical History Medical History Date [...] AM EDT Office Visit Bariatric Surgery - [address] [place] [address] Aleksandar Heaton MD [address] [place] [phone] Health Maintenance Due Date Last Done [...] CBC auto differential (03/02/2025 10:24 AM EST) [facility] WBC 5.6 4.8 - 10.8 K/mcL LAB HEMETOLOGY METHOD 03/02/2025 2:19 PM [facility] RBC 3.90 3.80 - 4.80 M/mcL LAB HEMETOLOGY METHOD 03/02/2025 2:19 PM [facility] Hemoglobin 10.6(L) 11.5 - 16.0 g/dL LAB HEMETOLOGY METHOD 03/02/2025 2:19 PM [facility] Hematocrit 33.2(L) 35.0 - 47.0 % LAB HEMETOLOGY METHOD 03/02/2025 2:19 PM [facility] MCV 84.5 79.0 - 98.0 FL LAB HEMETOLOGY METHOD 03/02/2025 2:19 PM [facility] MCH 27.0 27.0 - 32.0 pcg LAB HEMETOLOGY METHOD 03/02/2025 2:19 PM [facility] MCHC 31.9(L) 32.0 - 37.0 g/dL LAB HEMETOLOGY METHOD 03/02/2025 2:19 PM [facility] RDW 15.4(H) 11.0 - 15.0 % LAB HEMETOLOGY METHOD 03/02/2025 2:19 PM [facility] Platelets 317 130 - 400 K/mcL LAB HEMETOLOGY METHOD 03/02/2025 2:19 PM [facility] MPV 10.6 7.0 - 11.0 FL LAB HEMETOLOGY METHOD 03/02/2025 2:19 PM [facility] NRBC 0.0 <1.0 % LAB HEMETOLOGY METHOD 03/02/2025 2:19 PM [facility] NRBC Absolute 0.00 <0.10 K/mcL LAB HEMETOLOGY METHOD 03/02/2025 2:19 PM [facility] Neutrophils Relative 57.5 % LAB HEMETOLOGY METHOD 03/02/2025 2:19 PM [facility] Lymphocytes Relative 23.9 % LAB HEMETOLOGY METHOD 03/02/2025 2:19 PM [facility] Monocytes Relative 11.8 % LAB HEMETOLOGY METHOD 03/02/2025 2:19 PM [facility] Eosinophils Relative 5.7 % LAB HEMETOLOGY METHOD 03/02/2025 2:19 PM [facility] Basophils Relative 0.7 % LAB HEMETOLOGY METHOD 03/02/2025 2:19 PM [facility] Immature Granulocytes Relative 0.4 % LAB HEMETOLOGY METHOD 03/02/2025 2:19 PM [facility] Neutrophils Absolute 3.22 1.50 - 7.00 K/mcL LAB HEMETOLOGY METHOD 03/02/2025 2:19 PM [facility] Lymphocytes Absolute 1.34 1.00 - 5.00 K/mcL LAB HEMETOLOGY METHOD 03/02/2025 2:19 PM [facility] Monocytes Absolute 0.66 0.20 - 1.00 K/mcL LAB HEMETOLOGY METHOD 03/02/2025 2:19 PM [facility] Eosinophils Absolute 0.32 0.00 - 0.50 K/mcL LAB HEMETOLOGY METHOD 03/02/2025 2:19 PM [facility] Basophils Absolute 0.04 0.00 - 0.20 K/mcL LAB HEMETOLOGY METHOD 03/02/2025 2:19 PM [facility] Immature Granulocytes Absolute 0.02 0.00 - 0.03 K/mcL LAB HEMETOLOGY METHOD 03/02/2025 2:19 PM EST [facility] Blood Venous blood specimen / Unknown Venipuncture / Unknown 03/02/2025 10:24 AM EST 03/02/2025 10:24 AM EST us Jeanie Kapadia MD LAB BLOOD ORDERABLES Fin al Result Performing Organization Address [facility] de Phone Number [facility] [address] [place] [address], * Borrelia burgdorferi antibody (03/02/2025 10:24 AM EST) [facility] Lyme Ab Negative Negative LAB CHEMISTRY METHOD 03/02/2025 3:[address] [facility] Comment: No laboratory evidence of infection [...] ORDERABLES Fin al Result Performing Organization Address [facility] de Phone Number [facility] [address] [place] [address], * Creatinine (03/02/2025 10:24 AM EST) [facility] Creatinine 0.89 0.50 - 1.10 mg/dL 03/02/2025 3:[address] [facility] eGFR 78 >=60 mL/min/1. 73m2 03/02/2025 3:[address] [facility] Comment:Calculation based on the Chronic Kidney Disease Epidemiology Collaboration (CKD-EPI) equation refit without adjustment for race. Blood Venous blood specimen / Unknown Venipuncture / Unknown 03/02/2025 10:24 AM EST 03/02/2025 10:24 AM EST us Jeanie Kapadia MD LAB BLOOD ORDERABLES Fin al Result Performing Organization Address City/[facility]/ZIP Co de Phone Number [facility] [address] [place] [address], [place] [phone] * (ABNORMAL) Vitamin D 25 hydroxy (03/02/2025 10:24 AM EST) [facility] Vit D, 25-Hydroxy 26.0(L) 30.0 - 80.0 ng/mL 03/02/2025 3:[address] [facility] Blood Venous blood specimen / Unknown Venipuncture / Unknown 03/02/2025 10:24 AM EST 03/02/2025 10:24 AM EST us Jeanie Kapadia MD LAB BLOOD ORDERABLES Fin al Result Performing Organization Address [facility] de Phone Number [facility] [address] [place] [address], [place] [phone] * Sedimentation rate (03/02/2025 10:24 AM EST) [facility] Sed Rate 7 0 - 30 mm/hr LAB HEMETOLOGY METHOD 03/02/2025 2:[address] [facility] Blood Venous blood specimen / Unknown Venipuncture / Unknown 03/02/2025 10:24 AM EST 03/02/2025 10:24 AM EST us Jeanie Kapadia MD LAB BLOOD ORDERABLES Fin al Result Performing Organization Address City/[facility]/ZIP Co de Phone Number [facility] [address] [place] [address], [place] [phone] * BUN (03/02/2025 10:24 AM EST) [facility] BUN 13 5 - 25 mg/dL 03/02/2025 3:[address] [facility] Blood Venous blood specimen / Unknown Venipuncture / Unknown 03/02/2025 10:24 AM EST 03/02/2025 10:24 AM EST us Jeanie Kapadia MD LAB BLOOD ORDERABLES Fin al Result Performing Organization Address [facility] de Phone Number [facility] [address] [place] [address], * Folate (03/02/2025 10:24 AM EST) Folate 5.6 >=5.4 ng/ml 03/02/2025 3:[address] [facility] Blood Venous blood specimen / Unknown Venipuncture / Unknown 03/02/2025 10:24 AM EST 03/02/2025 10:[address] [facility] - 03/02/2025 3:47 PM EST Over the counter supplements containing high doses of biotin may interfere with this assay. If interference is suspected, patients shoud be retested after refraining from biotin supplements for 72 hours. us Jeanie Kapadia MD LAB BLOOD ORDERABLES Fin al Result Performing Organization Address City/[facility] Co de Phone Number [facility] [address] [place] [address], * Vitamin B12 (03/02/2025 10:24 AM EST) Vitamin B-12 476 211 - 911 pcg/mL 03/02/2025 3:[address] [facility] Blood Venous blood specimen / Unknown Venipuncture / Unknown 03/02/2025 10:24 AM EST 03/02/2025 10:24 AM EST us Jeanie Kapadia MD LAB BLOOD ORDERABLES Fin al Result [facility] [address] [place] [address], [place] [phone] * (ABNORMAL) Lipid panel with reflex to direct LDL (06/17/2024 10:12 AM EDT) [facility] Signature Cholesterol 230(H) 0 - 200 mg/dL [...] 2:[address] [facility] Chol/HDL Ratio 4.8(H) 0.0 - 4.4 LAB CHEMISTRY METHOD 06/17/2024 2:[address] [facility] Blood Venous blood specimen / Unknown Venipuncture / Unknown 06/17/2024 10:12 AM EDT 06/17/2024 11:07 AM EDT Aleksandar Heaton MD LAB BLOOD ORDERABLES Final R esult [facility] [address] [place] [address], [place] [phone] * Hm Hepatitis C Screening (09/22/2023) Hepatitis C Screening abstracted us Historical Provider HEALTH MAINTENANCE Final Result from Last 3 Months or Most Recently Relevant to Health Maintenance Insurance MEDICA[place] - [place] Care Teams Decker Operator Relationship Specialty Start Date End Date Jackie Abdi MD [address] [place] [id number] PCP - General 10/20/16
--- OUTSIDE RECORDS SUMMARY | 2025-03-16 19:58 | XMS_ITS | Encounter Summary ---
Author Organization [employer] Address [address] [facility] 7t [place] [address] Care Team Providers Care Show Host Or Hostess Name Role Phone Jackie Abdi MD Primary Care Provider [phone] Mirta Jacobson CNP Primary Care Provider [phone] Craig Boo RN Unavailable [phone] Faisal Lugo Unavailable Reason for Visit * Reason Onset Date Comments Results 04/30/2022 Encounter Details Date Type Department Care Team (Late st Contact Info) Description 04/30/2022 Telephone [facility] MEDICINE [address] [place] [address] Jackie Abdi MD [address] [place], [place] [phone] Results Social History Tobacco Use Types Packs/Day [...] regarding xray results Please contact pt at [phone] documented in this encounter Plan of Treatment Upcoming Encounters Date Type Department Care Team ([facility] st Contact Info) Description 04/05/2025 3:30 PM EST Office Visit [facility] MEDICINE [address] [place] [address] Rose Marie Shah, LOLIS [address] [place] [address] 06/27/2025 2:00 PM EDT Office Visit [facility] OPTOMETRY [address] [place] [address] An Hernandez, OD 230 [place] [address] documented as of this encounter Visit Diagnoses Not on filedocumented in this encounter Care Teams Show Host Or Hostess Relationship Specialty Start Date End Date Jackie Abdi MD [address] [place] [address] PCP - General Family Medicine 04/29/13 01/25/25 Mirta Jacobson CNP 505 [place] [address] PCP - General Family Medicine 01/26/25 Craig Boo, EAGLE 505 [place] [address] Registered Nurse Family Medicine 01/30/25 02/15/25 Faisal Lugo 01/30/25 02/15/25 documented as of this encounter
--- OUTSIDE RECORDS SUMMARY | 2025-03-16 19:58 | XMS_ITS | Encounter Summary ---
Author Organization [employer] Address 75 [facility] 7t [place] [address] Care Team Providers Care Floor Nurse Name Role Phone Jackie Abdi MD Primary Care Provider Mirta Jacobson CNP Primary Care Provider [phone] Craig Boo RN Unavailable [phone] Faisal Lugo Unavailable Reason for Visit * Reason Onset Date Comments Results 08/04/2023 Encounter Details Date Type Department Care Team ([facility] st Contact Info) Description 08/04/2023 Telephone [facility] CHC MED & PEDS [address] [place] [address] Jackie Abdi MD 505 [place], [place] [phone] Results Social History Tobacco Use Types Packs/Day [...] labs. Pt stated these were done by [facility] and that they diagnosed pt with [...] and culture Date when done: 08/02 Facility: [facility] Please contact pt at [phone] documented in this encounter Plan of Treatment Upcoming Encounters Date Type Department Care Team (Late st Contact Info) Description 04/05/2025 3:30 PM EST Office Visit [facility] MEDICINE [address] [place] [address] Rose Marie Shah CNM [address] [place] [address] 06/27/2025 2:00 PM EDT Office Visit [facility] OPTOMETRY [address] [place] [address] David, An, OD 230 [place] [address] documented as of this encounter Visit Diagnoses Not on filedocumented in this encounter Additional Health Concerns Assessment Noted Time PHQ-9 Depression Total Score: 21 023 8:57 AM EDT documented as of this encounter Care Teams Floor Nurse Relationship Specialty Start Date End Date Jackie Abdi MD [address] [place] [address] PCP - General Family Medicine 04/29/13 01/25/25 Mirta Jacobson CNP [address] [place], [place] [phone] PCP - General Family Medicine 01/26/25 Craig Boo, EAGLE [address] [place] [address] Registered Nurse Family Medicine 01/30/25 02/15/25 Faisal Lugo 01/30/25 02/15/25 documented as of this encounter
--- OUTSIDE RECORDS SUMMARY | 2025-03-16 19:58 | XMS_ITS | Encounter Summary ---
Author Organization [employer] Address [address] [place] [address] [address] [place] [address] Care Team Providers Care Handyman Name Role Phone Jackie Abdi MD Primary Care Provider [phone] Mirta Jacobson CNP Primary Care Provider [phone] Craig Boo RN Unavailable [phone] Faisal Lugo Unavailable Reason for Visit * Reason Comments Med Refill Encounter Details Date Type Department Care Team ([facility] st Contact Info) Description 09/18/2022 Refill [facility] CH[facility] MED & PEDS [address] [place], [place] [phone] Ronnell Sanderson MD [address] [place], [place] [phone] Mid-back pain, acute Social History Tobacco Use [...] Description 04/05/2025 3:30 PM EST Office Visit [facility] MEDICINE [address] [place] [address] Rose Marie Shah CNM [address] [place] [address] 06/27/2025 2:00 PM EDT Office Visit [facility] OPTOMETRY [address] [place] [address] An Hernandez, OD [address] [place] [address] documented as of this encounter Visit Diagnoses Diagnosis Mid-back pain, acute documented in this encounter Additional Health Concerns Assessment Noted Time PHQ-9 Depression Total Score: 21 023 8:57 AM EDT documented as of this encounter Care Teams Handyman Relationship Specialty Start Date End Date Jackie Abdi MD [address] [place] [address] PCP - General Family Medicine 04/29/13 01/25/25 Mirta Jacobson CNP 505 [place] [address] PCP - General Family Medicine 01/26/25 Craig Boo, EAGLE [address] [place] [address] Registered Nurse Family Medicine 01/30/25 02/15/25 Faisal Lugo 01/30/25 02/15/25 documented as of this encounter
--- OUTSIDE RECORDS SUMMARY | 2025-03-16 19:58 | XMS_ITS | Encounter Summary ---
Author Organization [employer] Address [address] [place] [address] Care Team Providers Care Bin Filler Name Role Phone Jackie Abdi MD Primary Care Provider [phone] Mirta Jacobson CNP Primary Care Provider [phone] Craig Boo RN Unavailable [phone] Faisal Lugo Unavailable Reason for Visit * Reason Onset Date Comments Referral 08/26/2023 Encounter Details Date Type Department Care Team (Late st Contact Info) Description 08/26/2023 Telephone [facility] MEDICINE [address] [place] [address] Jackie Abdi MD [address] [place], [place] [phone] Referral Social History Tobacco Use Types Packs/Day [...] EDT Tc from pt was advised by blade aligner office to request new referral due not being seen until 2020. Address: [address] [place] [address] [address] [place] [address] Facility Name: [facility]. Type of Specialist: Bread Racker Pt is also requesting referral for a urologist and or splunk consultant due to some recent concerns. (Ptwas triaged) If any questions please contact pt at [phone]. documented in this encounter Plan of Treatment Upcoming Encounters Date Type Department Care Team (Late st Contact Info) Description 04/05/2025 3:30 PM EST Office Visit [facility] MEDICINE [address] [place] [address] Rose Marie Shah, LOLIS [address] [place] [address] 06/27/2025 2:00 PM EDT Office Visit [facility] OPTOMETRY [address] [place] [address] An Hernandez, OD [address] [place] [address] documented as of this encounter Visit Diagnoses Not on filedocumented in this encounter Additional Health Concerns Assessment Noted Time PHQ-9 Depression Total Score: 21 023 8:57 AM EDT documented as of this encounter Care Teams Bin Filler Relationship Specialty Start Date End Date Jackie Abdi MD [address] [place] [address] PCP - General Family Medicine 04/29/13 01/25/25 Mirta Jacobson CNP [address] [place] [address] PCP - General Family Medicine 01/26/25 Craig Boo, EAGLE [address] [place] [address] Registered Nurse Family Medicine 01/30/25 02/15/25 Faisal Lugo 01/30/25 02/15/25 documented as of this encounter
--- OUTSIDE RECORDS SUMMARY | 2025-03-16 19:58 | XMS_ITS | Encounter Summary ---
Author Organization [employer] Address [address] [facility] [address] [place] [address] Care Team Providers Care Lining Parts Sewer Name Role Phone Jackie Abdi MD Primary Care Provider [phone] Mirta Jacobson CNP Primary Care Provider [phone] Craig Boo RN Unavailable [phone] Faisal Luog Unavailable Encounter Details Date Type Department Care Team (Late st Contact Info) Description 08/25/2024 Orders Only [facility] [address] [place] [address] Provider, MD Sagar Social History Tobacco Use [...] 3:30 PM EST Office Visit [facility] MEDICINE [address] [place] [address] Rose Marie Shah, CNM [address] [place] [address] 06/27/2025 2:00 PM EDT Office Visit [facility] OPTOMETRY [address] [place] [address] David, An, OD [address] [place] [address] documented as of this encounter Procedures Procedure [...] documented as of this encounter Care Teams Lining Parts Sewer Relationship Specialty Start Date End Date Jackie Abdi MD [address] [place] [address] PCP - General Family Medicine 04/29/13 01/25/25 Mirta Jacobson CNP [address] [place] [address] PCP - General Family Medicine 01/26/25 Craig Boo, EAGLE [address] [place] [address] Registered Nurse Family Medicine 01/30/25 02/15/25 Faisal Lugo 01/30/25 02/15/25 documented as of this encounter
--- OUTSIDE RECORDS SUMMARY | 2025-03-16 19:58 | XMS_ITS | Encounter Summary ---
Author Organization [employer] Address [address] [facility] [address] [place] [address] Care Team Providers Care Cytogenetics Laboratory Manager Name Role Phone Jackie Abdi MD Primary Care Provider [phone] Mirta Jacobson CNP Primary Care Provider [phone] Craig Boo RN Unavailable [phone] Faisal Lugo Unavailable Reason for Visit * Reason Comments Med Refill Encounter Details Date Type Department Care Team ([facility] st Contact Info) Description 09/01/2023 Refill [facility] CHC MED & PEDS [address] [place], [place] [phone] Ronnell Sanderson MD [address] [place], [place] [phone] Acute pain of right shoulder Social History [...] Description 04/05/2025 3:30 PM EST Office Visit [facility] MEDICINE [address] [place] [address] Rose Marie Shah CNM [address] [place] [address] 06/27/2025 2:00 PM EDT Office Visit [facility] OPTOMETRY [address] [place] [address] David, An, OD [address] [place] [address] documented as of this encounter Visit Diagnoses Diagnosis Acute pain of right shoulder documented in this encounter Additional Health Concerns Assessment Noted Time PHQ-9 Depression Total Score: 21 023 8:57 AM EDT documented as of this encounter Care Teams Cytogenetics Laboratory Manager Relationship Specialty Start Date End Date Jackie Abdi MD [address] [place] [address] PCP - General Family Medicine 04/29/13 01/25/25 Mirta Jacobson CNP [address] [place] [address] PCP - General Family Medicine 01/26/25 Craig Boo, EAGLE [address] [place] [address] Registered Nurse Family Medicine 01/30/25 02/15/25 Faisal Lugo 01/30/25 02/15/25 documented as of this encounter
--- OUTSIDE RECORDS SUMMARY | 2025-03-16 19:58 | XMS_ITS | Clinical Summary ---
Author Organization [employer] Address [address] [facility] [address] [place] [address] Care Team Providers Care Jersey Knitter Name Role Phone Mirta Jacobson CNP Primary Care Provider [phone] Allergies Active Allergy Reactions Criticality Noted Date Comments Sulfamethoxazole-Trimethoprim Angioedema 2023 Medications Multiple Vitamin (Multi-Vitamin) tablet Take 1 tablet by mouth at bed time. Active cholecalciferol (Vitamin D-3) 1.25 MG (72985 UT) capsule Take 1 capsule by mouth. [...] by mouth in the morning. 023 Active verapamil (Calan) 40 MG tablet TAKE 1 TABLET BY MOUTH TWICE DAILY 180 tablet 024 Active dicyclomine (Bentyl) 10 MG capsuleIndication s:History of cholecystectomy Take 1 capsule (10 mg) by mouth 3 times daily. 90 capsule 3 024 Active Symbicort 80-4.5 MCG/ACT inhaler INHALE 2 [...] 30 tablet Active celecoxib (CeleBREX) 200 MG capsuleIndication s:Acute pain of right shoulder TAKE 1 CAPSULE BY MOUTH TWICE DAILY 40 capsule Active loratadine (Claritin) 10 MG tablet Take 1 tablet (10 mg) by mouth Once per day. 30 tablet 11 025 2025 Active amoxicillin (Amoxil) 500 MG capsuleIndication s:Pharyngitis, unspecified etiology Take 1 tab po bid for 10 days 20 capsule Active levothyroxine (Synthroid) 25 MCG tablet Take 1 tablet (25 mcg) by mouth before breakfast. 30 tablet 025 2025 Active FLUoxetine (PROzac) 10 MG capsule TAKE 1 CAPSULE(10 MG) BY MOUTH DAILY 30 capsule 11 Active omeprazole (PriLOSEC) [address] capsule TAKE 1 CAPSULE(40 MG) BY MOUTH BEFORE BREAKFAST. DO NOT CRUSH OR CHEW 90 capsule 3 025 Active Diclofenac Sodium 1 % gelIndications:Ne ck pain To apply to the affected area 3 times a day 100 g 2 Active mirtazapine (Remeron) 7.5 MG tabletIndications :Anxiety,Other insomnia Take 1 tablet (7.5 mg) by mouth at bedtime. 30 tablet 3 Active cyclobenzaprine (Flexeril) 10 MG tablet Take 1 tablet (10 mg) by mouth at bedtime. TAKE 1 TABLET(10 MG) BY MOUTH AT BEDTIME 10 tablet Active hydrOXYzine pamoate (Vistaril) 50 MG capsule TAKE 1 CAPSULE BY MOUTH TWICE DAILY 60 capsule 3 Active Estradiol (Estring) 7.5 MCG/24HR ring Insert 1 each into the vagina See administration instructions. Bring to office for insertion. Replace every 90 days. 1 each 2 Active Estrogens Conjugated (Premarin) 0.625 MG/GM creamIndications: Hot flushes, perimenopausal Insert 0.625 mg into the vagina 2 (two) times a week. 30 g 3 024 2024 Discontinued( Ineffective) cyclobenzaprine (Flexeril) 10 MG tablet TAKE 1 TABLET(10 MG) BY MOUTH AT BEDTIME 30 tablet 025 2024 Discontinued( Reorder (will not trigger notification to Pharmacy)) hydrOXYzine [...] Encounters Date Type Department Care Team Description 03/16/2025 3:15 PM EST Office Visit [address] [address] Pola Maldonado CNM Pelvic and perineal pain (Primary Dx); Female dyspareunia; Vaginal discharge; Atrophic vaginitis 03/16/2025 Travel 03/15/[address] [address] Pola Maldonado CNM chart prep 03/15/2025 Travel 03/06/[address] [address] Jackie Abdi MD 02/20/2025 Refill [facility] [address] [place] [address] Jackie Abdi MD 02/15/2025 Patient Outreach [address] [address] Mirta Jacobson CNP Care Coordination (C3/JAZZ Lugo, initial outreach_declined ) 02/15/2025 Patient Outreach [address] [address] Mirta Jacobson CNP 01/30/2025 Patient Outreach [address] [address] Mirta Jacobson CNP Care Coordination (C3CM/JAZZ Lugo, Chart review) 01/30/2025 Patient Outreach [facility] [address] [place] [address] Mirta Jacobson CNP Care Coordination (C3CM- chart review) 01/30/2025 Patient Outreach [address] [address] Mirta Jacobson CNP 01/20/2025 Results Follow-Up [facility] [address] [place] [address] Yudith Godinez RN Comprehensive Metabolic Panel, TSH W/Reflex to FT4, CBC auto differential 01/17/2025 2:40 PM EDT Office Visit [facility] [address] [place] [address] Ronnell Sanderson MD Weight loss, unintentional (Primary Dx); Neck pain; Anxiety; Other insomnia 01/17/2025 Travel 01/17/2025 Telephone [facility] MEDICINE [address] [place], [place] [phone] Jackie Abdi MD Nurse Triage 12/28/2024 Refill [facility] [address] [place], [place] [phone] Jackie Abdi MD 12/15/2024 Telephone [facility] [address] [place], [place] [phone] Jackie Abdi MD Results from Last 3 Months Immunizations Immunization Administration [...] oz) 03/16/2025 3:25 P M EST Height 149.9 cm (4' 11 ) 01/17/2025 2:56 PM EDT Body Mass Index 26.58 01/17/2025 2:56 PM EDT Plan of Treatment Upcoming Encounters Date Type Department Care Team (Late st Contact Info) Description 04/05/2025 3:30 PM EST Office Visit [facility] MEDICINE [address] [place] [address] Pola Maldonado, CNM [address] [place] [address] 06/27/2025 2:00 PM EDT Office Visit [facility] OPTOMETRY [address] [place], [place] [phone] David, An, OD [address] [place] [address] Health Maintenance Due Date Last Done Comments CT Colonography 1972 Colonoscopy 1972 FIT 1972 Sigmoidoscopy 1972 Alcohol/Substance Use Screening 1984 RSV Patients and Patients Aged 60 years or older (1 - Risk 50-74 years 1-dose series) 2022 Dental X-Ray: Bitewings 05/27/2023 05/26/2022 Dental Oral Exam 09/10/2023 03/10/2023, 05/26/2022 Dental Prophylaxis 09/10/2023 03/10/2023, 06/27/2022 FOBT 02/24/2024 02/23/2023 Disability Screening 06/21/2025 06/21/2024 SDOH Screening 06/21/2025 06/21/2024 Depression Monitoring 09/14/2025 03/16/2025, 025 Colorectal Cancer Screening 02/23/2026 FIT DNA/Cologuard 02/23/2026 02/23/2023 Tobacco Screening 03/16/2026 03/16/2025 Mammogram 06/03/2026 06/03/2024, 03/02/2020 Dental X-Ray: Full [...] Blood Count 5.1 4.8 - 10.8 X10*3/uL [facility] Red Blood Count 4.67 4.20 - 5.50 X10*6/uL [facility] Hemoglobin 12.6 12.0 - 16.0 g/dl [facility] Hematocrit 39.5 37.0 - 47.0 % [facility] Mean Corpuscular Volume 84.6 80.0 - 98.0 fL [facility] Mean Corpuscular Hemoglobin 27.0 27.0 - 33.0 pg [facility] Mean Corpuscular HGB Conc 31.9 31.0 - 35.0 g/dl [facility] Red Cell Distribution Width 16.6(H) 11.0 - 16.0 % [facility] Platelet Count 356 160 - 400 X10*3/uL [facility] Mean Platelet Volume 10.5 9.4 - 12.3 fL [facility] Neutrophils Percent Auto 52.3 45 - 73 % [facility] Imm Gran Pct Auto 0.2 0.0 - 0.4 % [facility] Lymphocytes Percent Auto 33.9 20 - 40 % [facility] Monocytes Percent Auto 10.1 2 - 11 % [facility] Eosinophils Percent Auto 2.5 0 - 4 % [facility] Basophils Percent Auto 1.0 0 - 2 % [facility] NRBC Pct Auto 0.0 0.0 - 0.2 /100WBC [facility] Neutrophils Absolute Auto 2.7 2.0 - 8.3 x10*3/uL [facility] Imm Gran Abs Auto 0.01 0.00 - 0.03 X10*3/uL [facility] Lymphocytes Absolute Auto 1.7 1.2 - 4.9 X10*3/uL [facility] Monocytes Absolute Auto 0.5 0.1 - 1.2 X10*3/uL [facility] Eosinophils Absolute Auto 0.1 0.0 - 0.4 X10*3/uL [facility] Basophils Absolute Auto 0.1 0.0 - 0.2 X10*3/uL [facility] NRBC Abs Auto 0.000 0.0 - 0.012 X10*3/uL [facility] Blood Venous blood specimen / Unknown 01/19/2025 11:48 AM EDT 01/19/2025 2:32 PM EDT us Ronnell Sanderson MD LAB BLOOD ORDERABLES Final Result [facility] [address] [place] [address] [phone] * TSH W/Reflex to FT4 (01/19/2025 11:40 AM EDT) TSH reflex Free T4 0.94 0.32 - 4.0 uIU/mL [facility] Blood Venous blood specimen / Unknown 01/19/2025 11:40 AM EDT 01/19/2025 2:25 PM EDT us Ronnell Sanderson MD LAB BLOOD ORDERABLES Final Result [facility] [address] [place] [phone] * (ABNORMAL) Comprehensive Metabolic Panel (01/19/2025 11:40 AM EDT) Sodium 146(H) 135 - 145 mmol/L [facility] Potassium 3.6 3.3 - 5.1 mmol/L [facility] Chloride 110(H) 96 - 108 mmol/L [facility] Carbon Dioxide 27 22 - 29 mmol/L [facility] Anion Gap 13 12 - 20 [facility] Urea Nitrogen (BUN) 13 9 - 16 mg/dL [facility] Creatinine, Serum 1.13 0.5 - 1.4 mg/dL [facility] Estimated Glomerular Filt Rate 51 [facility] Comment:Chronic Kidney Disea se: Estimated GFR < 60 mL/min/1.76h9[place] Kidney Disease: Estimated GFR < 15 mL/min/1.73m2 Glucose 73 60 - 115 mg/dL [facility] Calcium 9.0 8.4 - 10.2 mg/dL [facility] Bilirubin, Total 0.2 0.0 - 1.0 mg/dL [facility] Aspartate Amino Transferase 19 5 - 31 U/L [facility] Alanine Aminotransferase 20 0 - 31 U/L [facility] Total Protein 7.4 6.5 - 8.0 g/dL [facility] Albumin Level 4.4 3.5 - 5.0 g/dL [facility] Alkaline Phosphatase 84 39 - 117 U/L [facility] Blood Venous blood specimen / Unknown 01/19/2025 11:40 AM EDT 01/19/2025 2:25 PM EDT us Ronnell Sanderson MD LAB BLOOD ORDERABLES Final Result Performing Organization Address [facility] Co de Phone Number [facility] [address] [place] [phone] * Hepatitis Panel, General (12/13/2024 2:34 PM EDT) Hepatitis A IgM Nonreactive Nonreactive [facility] Comment:IgM antibodies to HERNANDEZ V not detected; does not exclude earlyacute or recovered HAV infection. ~Hepatitis B Surface Antibody REACTIVE Nonreactive [facility] Comment:REACTIVE: > 11.99 mI U/mL Hepatitis B Core Antibody Nonreactive Nonreactive [facility] Hepatitis C Antibody Nonreactive Nonreactive [facility] Comment:Antibodies to HCV no t detected; does not exclude early acuteHCV infection. Hepatitis B Surface Ag Negative Negative [facility] Blood Venous blood specimen / Unknown 12/13/2024 2:34 PM EDT 12/13/2024 4:04 PM EDT us Stephenie Chappell MD LAB BLOOD ORDERABLES Final Result Performing Organization Address [facility] de Phone Number [facility] [address] [place] [phone] * HIV-1/2 Antigen and Antibodies, Fourth Generation, with Reflexes (12/13/2024 2:34 PM EDT) HIV AB/AG Nonreactive Nonreactive [facility] Comment:HIV-1 p24 Ag and/or HIV-1/HIV-2 Ab not detected.A test result that is nonreactive does not exclude thepossibility of exposure to or infection with HIV-1 and/orHIV-2. Nonreactive results in this assay for individualswith prior exposure to HIV-1 and/or HIV-2 may be due toantigen and antibody levels that are below the limit ofdetection of this assay.The [employer] HIV Ag/Ab Combo assay result andsupplemental assay results should be interpreted inconjunction with the patient's clinical presentation,history and other laboratory results. If the results areinconsistent with clinical evidence, additional testing issuggested to confirm the result. Blood Venous blood specimen / Unknown 12/13/2024 2:34 PM EDT 12/13/2024 4:04 PM EDT us Stephenie Chappell MD LAB BLOOD ORDERABLES Final Result Performing Organization Address [facility] Co de Phone Number [facility] [address] [place] [address] [phone] * (ABNORMAL) Lipid Panel, Standard (09/29/2024 9:15 AM EDT) Triglycerides 132 <150 mg/dL [facility] Comment:Desirable Triglyceri de: less than 150 mg/dLBorderline High Triglyceride 150-199 mg/dLHigh Triglyceride: 200-499 mg/dLVery High Triglyceride: greater than or equal to 5OO mg/dL Cholesterol 157 <200 mg/dL [facility] Comment:Desirable Cholestero l: less than 200 mg/dLBorderline High Cholesterol: 200-239 mg/dLHigh Cholesterol: greater than 239 mg/dL LDL Cholesterol Calculated 100(H) <100 mg/dL [facility] Comment:Desirable LDL: less than 100 [...] ORDERABLES Final Resul t Performing Organization Address City/[facility]/ZIP Co de Phone Number [facility] [address] [place] [phone] * BI Mammogram Screening Tomosynthesis Bilateral (06/03/2024 9:45 AM EST) Anatomical Region Laterality Modality Breast Bilateral Mammography 06/03/2024 9:45 AM EST Narrative 06/12/2024 4:59 PM EDT [address] [place] [address] Mammography Report Signed Patient: Sade Fraga MR#: [id number] 4 : 1970 Acct:[id number] Age/Sex: 54 / F ADM Date: 06/03/24 Loc: HO.MAMMO Attending Dr: Pola Maldonado CNM Ordering Physician: POLA MALDONADO CNM Results: 1 Negative Date of Service: 06/03/24 Follow Up: 1 Year From Orig ina Mammogram Procedure(s): MM tomosynthesis screening BI Accession Number(s): [id number] cc: Jackie Abdi MD; POLA MALDONADO CNM [...] by Connie Damon DO in OV> 06/12/24 2956 DD/ TD/TT: 06/03/24 1010 Director Of Music: Procedure Note Donotuseinterpreter, Image - 06/12/2024 [facility] [address] [place] [address] Mammography Report Signed Patient: Gray Fraga#: [id number] 4 : 1970Acct:[id number] Age/Sex: 54 / FADM Date: 06/03/24 Loc: HO.MAMMO Attending Dr: Pola Maldonado CNM Ordering Physician: POLA MALDONADOesults: 1 Negative Date of Service: 06/03/24Follow Up: 1 Year From Orig inal Mammogram Procedure(s): MM tomosynthesis screening BI Accession Number(s): [id number] cc: Jackie Abdi MD; POLA MALDONADO CNM [...] signed by Connie Damon DO in OV> 06/12/241655 DD/ TD/TT: 06/03/24 1010 Director Of Music: us Pola Maldonado CNM IMG BI PROCEDURES Final R esult * Cologuard?? colon cancer screening (02/23/2023 10:44 AM EST) Cologuard Result Negative Negative 03/01/20 3:14 PM EST [facility] (CLIA #:[id number]) Comment: NEGATIVE TEST RESULT. A negative Cologuard [...] Amezquita. et al, N Engl J Med 2014;370(14):9443-2450) The normal value (reference range) for this assay is negative. COLOGUARD RE-SCREENING RECOMMENDATION: Periodic colorectal cancer screening is an important part of preventive healthcare for asymptomatic individuals at average risk for colorectal cancer. Following a negative Cologuard result, the [place] Cancer Society and U.S. Multi-Society Task Force screening guidelines recommend a Cologuard re-screening interval of 3 years. References: [place] [employer] Society Guideline for Colorectal Cancer Screening: https://www.cancer.org/cancer/cawyn-brapuo-ddceui/ihhdkhvmj-wrfrnxhhg-czwdpsr/ac s-rec ommendations.html.; Bean DK, Mitchell CR, Dank WeberK, Colorectal Cancer Screening: Recommendations for Physicians and Patients from the U.S. Multi-Society Task Force on Colorectal Cancer Screening , Am J Gastroenterology 2017; 112:3300-4482. TEST DESCRIPTION: Composite algorithmic analysis of stool [...] (Javi Frank al, N Engl J Med 2014;370(14):1578-9061.) Cologuard may produce a false negative or false positive result (no colorectal cancer or precancerous polyp present at colonoscopy follow up). A negative Cologuard test result does not guarantee the absence of CRC or advanced adenoma (pre-cancer). The current Cologuard screening interval is every 3 years. ([employer] Cancer Society and U.S. Multi-Society Task Force). Cologuard performance data in a 10,000 patient pivotal study using colonoscopy as the reference method can be accessed at the following location: www.Pinkdingo/results. Additional description of the Cologuard test process, warnings and precautions can be found at www.[employer]AM Aviationrd.com. Stool specimen (specimen) 02/23/2023 10:44 AM EST 02/24/2023 1:44 PM EST us Jackie Abdi MD LAB MOLECULAR DIAGNOSTICS ORDERA BLES Final Result [facility] (CLIA #:[id number]) [place] [address], * Thinprep TIS PAP And HPV mRNA E6/E7, CT/NG, TRICH (04/08/2022 4:21 PM EST) Clinical Information: SCREENING, PELVIC PAIN [facility] [place] [facility] LMP: NONE GIVEN [facility] Prev. PAP: NONE GIVEN [facility] [place] [facility] Prev. BX: NONE GIVEN [facility] [place] [facility] SOURCE: None given [employer] Statement Of Adequacy: [facility] Comment: Satisfactory for evaluation. Endocervical/transformation zone component present. Age and/or menstrual status not provided Interpretation/Re sult: Negative for intraepithelial lesion or malignancy. [facility] Comment: This Pap test has been evaluated with computer assisted technology. [facility] Iron Melter: Jose [facility] Comment: DMM, CT(ASCP) CT screening location: [place] [address] (Always Message) [facility] [employer] Comment: EXPLANATORY NOTE: The Pap is a [...] HPV nRNA E6/E7 Not Detected Not Detected [employer] [employer] Comment: Methodology: Desktop Publishing Associate-Mediated Amplification This assay detects E6/E7 viral messenger RNA (mRNA) from 14 high-risk HPV types (16,18,31,33,35,39,45,51,52,56,58,59,66,68). Cervical sources are required for HPV testing. If a vaginal source from a patient who has had a total hysterectomy with removal of cervix was submitted, please contact the testing laboratory for alternative testing options. For additional information, please refer to http://education.Citrix Online/faq/XPQ994a7 (This link if provided for information/ educational purposes only.) Chlamydia trachomatis RNA, TMA, Urogenital NOT DETECTED NOT DETECTED [employer] Neisseria gonorrhoeae RNA, TMA, Urogenital NOT DETECTED NOT DETECTED [employer] Comment [facility] [employer] Comment: The analytical performance characteristics of this assay, when used to test SurePath(TM) specimens have been determined by [facility]. The modifications have not been cleared or approved by the FDA. This assay has been validated pursuant to the CLIA regulations and is used for clinical purposes. For additional information, please refer to https://Zapnip.[employer] Online/faq/BQN912 (This link is being provided for information/ educational purposes only.) Trichomonas vaginalis, QL, TMA, PAP Vial NOT DETECTED NOT DETECTED [facility] [employer] Comment: The analytical performance characteristics of this assay have been determined by [facility]. The modifications have not been cleared or approved by the FDA. This assay has been validated pursuant to the CLIA regulations and is used for clinical purposes. For additional information, please refer to http://Zapnip.[employer]rix Online/ faq/Trichomonastma (This link is being provided for information/ educational purposes only.) 04/08/2022 4:21 PM EST 04/09/2022 11:04 AM EST Narrative [facility] - 04/14/2022 10:42 AM EST FASTING: UNKNOWN Pola Maldonado CNM LAB PATHOLOGY ORDERABLES Final Result [facility] [address], [place] [address] [facility] [address], ([address]) [place] [address] from Last 3 Months or Most Recently Relevant to Health Maintenance Insurance [facility] C3 DENTAL-[facility] MEDICAID STAND ADULT Care Teams Jersey Knitter Relationship Specialty Start Date End Date Mirta Jaocbson CNP [address] [place] [phone] PCP - General Family Medicine 01/26/25
[2025-03-16 22:22] LABS: Bacterial Vaginosis PCR NEGATIVE (Negative); Candida Group PCR NOT DETECTED (Not Detect); Candida glab krusei PCR NOT DETECTED (Not Detect); Trichomonas vaginalis PCR NOT DETECTED (Not Detect)
== END 2025-03-16 18:43 | disposition home or self-care (01) ==
LOC: HO.HHCLNP 18:42
PROVIDERS: Visit Provider Advanced Practice Midwife
DX: N89.8 Other specified noninflammatory disorders of vagina (principal); Z20.2 Contact with and (suspected) exposure to infections with a predominantly sexual mode of transmission
CPT/HCPCS: 81515